=== PATIENT | male | born 1940 | race Caucasian/White ===

== ENCOUNTER → 2017-06-24 13:41 | Outpatient (CLI) | payer MEDICARE, OTHER, SELFPAY ==
--- NOTE | 2017-06-24 14:00 | ECHOD_ITS ---
Reason For Study: Aortic valve replacement Procedure This was a 2D Doppler, Color Flow transthoracic echocardiogram. The exam was of adequate technical quality. Exam performed in department. Left Ventricle Normal LV size. Left ventricular systolic function is normal. The estimated ejection fraction is 60 %. No regional wall motion abnormalities noted. Right Ventricle Mildly dilated right ventricle. Normal systolic function. Atria The left atrium is mildly enlarged. The right atrium is severely enlarged. No doppler evidence for ASD. Mitral Valve There is mild mitral annular calcification. Extension of the mitral annular calcification onto the posterior mitral valve leaflet. Mild-Moderate (1-2+) mitral valve insufficiency. Tricuspid Valve Normal tricuspid valve. Moderate (2+) tricuspid valve insufficiency. Right ventricular systolic pressure estimated to be 33 mmHg. Aortic Valve Stable appearing bioprosthetic aortic valve apparatus. Pulmonic Valve The pulmonic valve is not well visualized. Trivial pulmonic valve insufficiency. Great Vessels Moderately dilated aortic root. Pericardium/Pleural No pericardial effusion. MMode/2D Measurements & Calculations LVIDd: 4.3 cm IVSd: 1.1 cm LVOT diam: 2.1 cm LVIDs: 2.8 cm LVPWd: 0.96 cm LVOT area: 3.5 cm2 RVDd: 4.9 cm FS: 34.7 % Ao root diam: 4.8 cm LAV(MOD-bp): 58.9 ml LA A4 area: 18.3 cm2 LA dimension: 3.5 cm LAV(MOD-bp) Indexed: 28.9 ml/m2 LAV(MOD-sp2): 72.7 ml LAV(MOD-sp4): 45.6 ml RA A4 area: 30.3 cm2 Doppler Measurements & Calculations MV E max kunal: 97.2 cm/sec Lat Peak E' Kunal: 12.5 cm/sec Med Peak E' Kunal: 8.0 cm/sec MV A max kunal: 61.0 cm/sec E/E' lat: 7.7 E/E' med: 12.1 MV E/A: 1.6 Ao V2 max: 265.9 cm/sec LV V1 max: 137.7 cm/sec SV(LVOT): 101.7 ml Ao max P.3 mmHg LV V1 max P.6 mmHg Ao V2 mean: 183.0 cm/sec LV V1 mean P.1 mmHg Ao mean P.0 mmHg LV V1 mean: 95.8 cm/sec Ao V2 VTI: 58.6 cm LV V1 VTI: 29.2 cm CECI(I,D): 1.7 cm2 CECI(V,D): 1.8 cm2 PA V2 max: 81.4 cm/sec TR max kunal: 249.7 cm/sec TR max P.9 mmHg Interpretation Summary Left ventricular systolic function is normal. The estimated ejection fraction is 60 %. Mildly dilated right ventricle. The left atrium is mildly enlarged. The right atrium is severely enlarged. There is mild mitral annular calcification. Extension of the mitral annular calcification onto the posterior mitral valve leaflet. Mild-Moderate (1-2+) mitral valve insufficiency. Moderate (2+) tricuspid valve insufficiency. Stable appearing bioprosthetic aortic valve apparatus. Trivial pulmonic valve insufficiency. Moderately dilated aortic root. Right ventricular systolic pressure estimated to be 33 mmHg. Transmitral diastolic flow velocities suggest diastolic dysfunction (pseudonormal pattern). Comment: The average Global Longitudinal Peak Strain (GLPS) was reported at - 20.0% (normal limits: - 18.0 % or more negative) Ordering Physician: Victor Manuel Zhou Referring Physician: Rosemarie Samaniego Performed By: Pam Medrano KODY
--- NOTE | 2017-06-24 14:50 | CT_ITS ---
STUDY: CTA CHEST REASON FOR EXAM: Male, 77 years old. Thoracic aortic aneurysm RADIATION DOSAGE (If Supplied By Facility): CTDIvol = ( 19.31 ) mGy, DLP = ( 665 ) mGycm TECHNIQUE: The examination was performed with the intravenous administration of 100 ml of Isovue 370 contrast material. Post-processing of the angiographic images was performed, with multiplanar reformation and 3D reconstruction. Individualized dose optimization techniques were used for this CT. COMPARISON: None. FINDINGS: There is aneurysmal dilatation of the ascending aorta, measuring 4.8 x 4.7 cm. The aortic arch and descending thoracic aorta are normal in caliber. 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 Evaluation for thoracic aortic dissection is limited as contrast is primarily within the pulmonary arteries. There is no evidence of pulmonary embolus. The patient is status post sternotomy and aortic valve replacement. The heart is normal in size. There is no pericardial effusion. There is no thoracic lymphadenopathy. There are mild emphysematous changes noted in the lungs. There is a calcified granuloma in the right upper lobe. There are no suspicious pulmonary nodules or masses. There are no pulmonary infiltrates or pleural effusions. Images through the upper abdomen demonstrate splenic granulomata. There are no destructive osseous lesions. CT/CTA Chest W/WO Contrast IMPRESSION: 4.8 x 4.7 cm aneurysm of the descending aorta. Normal caliber aortic arch and descending thoracic aorta. 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 Evaluation for thoracic aortic dissection is limited as the contrast bolus is primarily in the pulmonary arteries. No evidence of pulmonary embolus. Mild emphysema. No suspicious pulmonary nodules. No pulmonary infiltrate or pleural effusion. Evidence of prior granulomatous disease. Electronically Signed: Calvin Hudson, at 18:26 EDT Tel , Service support ,
[2017-06-24 15:05] LABS: CREATININE FINGERSTICK 1.3 mg/dL (0.70-1.30)
== END ==
PROVIDERS: Family Provider Internal Medicine; PCP Internal Medicine; Visit Provider Internal Medicine Cardiovascular Disease
DX: I71.2 Thoracic aortic aneurysm, without rupture (principal); Z95.2 Presence of prosthetic heart valve
CPT/HCPCS: 71275; 93306; Q9967

== ENCOUNTER → 2018-07-14 | Outpatient (CLI) | payer MEDICARE, OTHER, SELFPAY ==
[2018-07-02 15:54] VITALS: BMI 31.1
--- NOTE | 2018-07-14 13:52 | ECHOD_ITS ---
Reason For Study: HX AVR Procedure This was a 2D Doppler, Color Flow transthoracic echocardiogram. The exam was of adequate technical quality. Exam performed in department. Left Ventricle Normal LV size. Left ventricular systolic function is normal. The estimated ejection fraction is 55 %. Post operative septal motion. No regional wall motion abnormalities noted. Right Ventricle Mildly dilated right ventricle. Mild global right ventricular systolic dysfunction. Atria The left atrium is mildly enlarged. The right atrium is severely enlarged. No doppler evidence for ASD. Mitral Valve There is mild mitral annular calcification. Extension of the mitral annular calcification onto the posterior mitral valve leaflet. Mild (1+) mitral valve insufficiency. Tricuspid Valve Normal tricuspid valve. Moderately severe (3+) tricuspid valve insufficiency. Right ventricular systolic pressure estimated to be 31 mmHg. Aortic Valve Stable appearing bioprosthetic aortic valve apparatus. Pulmonic Valve Normal pulmonic valve. Trivial pulmonic valve insufficiency. Great Vessels Moderately dilated ascending aorta. Pericardium/Pleural No pericardial effusion. MMode/2D Measurements & Calculations LVIDd: 4.7 cm IVSd: 0.78 cm LVOT diam: 2.1 cm LVIDs: 3.5 cm LVPWd: 0.86 cm LVOT area: 3.4 cm2 RVDd: 6.3 cm FS: 26.1 % Ao root diam: 4.9 cm LAV(MOD-bp): 77.2 ml LA A4 area: 21.2 cm2 LAV(MOD-bp) Indexed: 37.8 ml/m2 LAV(MOD-sp2): 89.6 ml LAV(MOD-sp4): 65.0 ml LA dimension(2D): 4.0 cm RA A4 area: 29.7 cm2 Time Measurements MV dec time: 0.22 sec Doppler Measurements & Calculations MV E max kunal: 71.6 cm/sec Lat Peak E' Kunal: 12.7 cm/sec Med Peak E' Kunal: 8.6 cm/sec MV A max kunal: 64.4 cm/sec E/E' lat: 5.6 E/E' med: 8.3 MV E/A: 1.1 Ao V2 max: 244.4 cm/sec LV V1 max: 79.6 cm/sec SV(LVOT): 63.3 ml Ao max P.9 mmHg LV V1 max P.6 mmHg Ao V2 mean: 177.4 cm/sec LV V1 mean P.3 mmHg Ao mean P.7 mmHg LV V1 mean: 53.3 cm/sec Ao V2 VTI: 51.2 cm LV V1 VTI: 18.6 cm CECI(I,D): 1.2 cm2 CECI(V,D): 1.1 cm2 PA V2 max: 77.5 cm/sec PI end-d kunal: 61.4 cm/sec TR max kunal: 238.9 cm/sec TR max P.9 mmHg Interpretation Summary Left ventricular systolic function is normal. The estimated ejection fraction is 55 %. Post operative septal motion. Mildly dilated right ventricle. Mild global right ventricular systolic dysfunction. The left atrium is mildly enlarged. The right atrium is severely enlarged. There is mild mitral annular calcification. Extension of the mitral annular calcification onto the posterior mitral valve leaflet. Mild (1+) mitral valve insufficiency. Moderately severe (3+) tricuspid valve insufficiency. Stable appearing bioprosthetic aortic valve apparatus. Trivial pulmonic valve insufficiency. Moderately dilated ascending aorta. (4.8 to 5.0 cm) Right ventricular systolic pressure estimated to be 31 mmHg. Transmitral diastolic flow velocities suggest diastolic dysfunction (pseudonormal pattern). Ordering Physician: Basilio Rivera/Victor Manuel Zhou Referring Physician: REBECCA DINH Performed By: Boby ISABEL, MARY, Niki and Student
--- NOTE | 2018-07-14 15:00 | CT_ITS ---
STUDY: CTA CHEST REASON FOR EXAM: Male, 78 years old. Aortic valve replacement. RADIATION DOSAGE (If Supplied By Facility): CTDIvol = ( 12.01 ) mGy, DLP = ( 924.93 ) mGycm TECHNIQUE: The examination was performed with the intravenous administration of 100 IV Isovue 300. Post-processing of the angiographic images was performed, with multiplanar reformation and 3D reconstruction. Individualized dose optimization techniques were used for this CT. COMPARISON: June 24, 2017. FINDINGS: Normal enhancement of the main pulmonary artery and right and left pulmonary arteries. Normal enhancement of the bilateral peripheral pulmonary arteries. There is no demonstrated pulmonary embolism. Aneurysmal dilatation of the ascending thoracic aorta measuring 4.4 x 4.5 cm in AP and transverse dimensions respectively measured on the sagittal and coronal reconstructions. 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 And There is no demonstrated aortic dissection. The heart is not enlarged. Aortic valve replacement. Coronary artery calcifications. No pericardial effusion. Sternal wires are present. There are calcified mediastinal lymph nodes. Small mediastinal lymph nodes which are not pathologic by size criteria. Normal hilar regions. Normal visualized trachea and bronchi. The lungs are well expanded. Subcentimeter right upper lobe cyst. Lingular segment 1 cm pulmonary cyst. Calcified right upper lobe lung nodule. Normal pulmonary parenchyma. Normal pleura. Normal chest wall structures. Normal osseous structures. Scattered splenic calcifications unchanged. CT/CTA Chest W/WO Contrast IMPRESSION: No pulmonary embolus or thoracic aortic dissection. Ascending thoracic aortic aneurysm, measuring 4.4 x 4.5 cm not significantly changed accounting for differences in measurement. 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 Aortic valve replacement. Additional nonemergent findings as above. Electronically Signed: Artemio Cardona MD at 0:06 EDT , Service support ,
[2018-07-14 15:16] LABS: EGFR FINGERSTICK > 60.0000 mL/min (>60)
== END | disposition home or self-care (01) ==
LOC: CVS 13:52
PROVIDERS: Family Provider Internal Medicine; PCP Internal Medicine; Referring Provider Nurse Practitioner Family; Visit Provider Nurse Practitioner Family
DX: I71.2 Thoracic aortic aneurysm, without rupture (principal); I10 Essential (primary) hypertension; Z95.2 Presence of prosthetic heart valve
CPT/HCPCS: 71275; 93306; Q9967

== ENCOUNTER → 2019-09-20 12:44 | Outpatient (CLI) | payer MEDICARE, OTHER, SELFPAY ==
[2019-06-21 15:48] VITALS: BMI 29.9
--- NOTE | 2019-09-20 12:46 | CT_ITS ---
STUDY: CTA CHEST REASON FOR EXAM: Male, 79 years old. TAA, YEARLY CHECK UP, PREV HEART VALVE REPLACEMENT RADIATION DOSAGE (If Supplied By Facility): CTDIvol = ( 18.69 ) mGy, DLP = ( 558.23 ) mGycm TECHNIQUE: The examination was performed with the intravenous administration of 100ML ISOVUE 370. Post-processing of the angiographic images was performed, with multiplanar reformation and 3D reconstruction. Individualized dose optimization techniques were used for this CT. COMPARISON: Comparison is made with prior study dated July 14, 2018. FINDINGS: Normal enhancement of the main pulmonary artery and right and left pulmonary arteries. Normal enhancement of the bilateral peripheral pulmonary arteries. There is no demonstrated pulmonary embolism. There is aneurysmal dilatation of the ascending aorta. The transverse diameter of the ascending aorta measures 51.2 mm''s. There is no demonstrated aortic dissection. Sternal cerclage wires and vascular clips are present from a prior sternotomy and coronary artery bypass graft procedure (CABG). There are calcifications of the coronary arteries. Normal mediastinum. Normal hilar regions. Normal visualized trachea and bronchi. The lungs are well expanded. Calcified granuloma in the right upper lobe. Stable subcentimeter right upper lobe cyst and lingular segment cyst. Normal pleura. Normal chest wall structures. There are mild degenerative changes of thoracic spine. Calcified granulomas. CT/CTA Chest W/WO Contrast IMPRESSION: Aneurysmal dilatation of the ascending aorta measuring 51.2 mm in greatest transverse dimension. Electronically Signed: Lokesh Smith, at 14:35 EDT , Service support ,
--- NOTE | 2019-09-20 13:13 | ECHOD_ITS ---
Reason For Study: AVR Procedure This was a 2D Doppler, Color Flow transthoracic echocardiogram. The exam was of adequate technical quality. Exam performed in department. Left Ventricle Normal LV size. Left ventricular systolic function is normal. The estimated ejection fraction is 55 %. Post operative septal motion. Right Ventricle Mildly dilated right ventricle. Mild global right ventricular systolic dysfunction. Atria The left atrium is moderately enlarged. The right atrium is severely enlarged. No doppler evidence for ASD. Mitral Valve There is mild mitral annular calcification. Extension of the mitral annular calcification onto the base of the posterior mitral valve leaflet. Mild mitral valve prolapse. Mild-Moderate (1-2+) mitral valve insufficiency. Tricuspid Valve Normal tricuspid valve. Moderate (2+) tricuspid valve insufficiency. Right ventricular systolic pressure estimated to be 21 mmHg. Aortic Valve Trisinus/trileaflet aortic valve. Moderate focal aortic valve calcification. Stable appearing bioprosthetic aortic valve apparatus. Pulmonic Valve The pulmonic valve is not well visualized. Great Vessels The ascending aorta is moderately dilated. Pericardium/Pleural No pericardial effusion. MMode/2D Measurements & Calculations LVIDd: 4.5 cm IVSd: 1.1 cm LVOT diam: 2.1 cm LVIDs: 2.7 cm LVPWd: 1.1 cm LVOT area: 3.5 cm2 RVDd: 4.1 cm FS: 41.3 % Ao root diam: 5.0 cm LAV(MOD-bp): 80.8 ml LA A4 area: 21.6 cm2 LAV(MOD-bp) Indexed: 40.0 ml/m2 LAV(MOD-sp2): 97.0 ml LAV(MOD-sp4): 60.4 ml LA dimension(2D): 3.6 cm RA A4 area: 32.9 cm2 Doppler Measurements & Calculations MV E max kunal: 75.6 cm/sec Lat Peak E' Kunal: 9.6 cm/sec Med Peak E' Kunal: 7.3 cm/sec MV A max kunal: 66.5 cm/sec E/E' lat: 7.8 E/E' med: 10.3 MV E/A: 1.1 Ao V2 max: 251.1 cm/sec LV V1 max: 123.2 cm/sec SV(LVOT): 93.4 ml Ao max P.2 mmHg LV V1 max P.1 mmHg Ao V2 mean: 173.5 cm/sec LV V1 mean P.2 mmHg Ao mean P.4 mmHg LV V1 mean: 84.2 cm/sec Ao V2 VTI: 55.9 cm LV V1 VTI: 26.6 cm CECI(I,D): 1.7 cm2 CECI(V,D): 1.7 cm2 PA V2 max: 76.1 cm/sec TR max kunal: 210.8 cm/sec TR max P.9 mmHg Interpretation Summary Left ventricular systolic function is normal. The estimated ejection fraction is 55 %. Post operative septal motion. Mildly dilated right ventricle. Mild global right ventricular systolic dysfunction. The left atrium is moderately enlarged. The right atrium is severely enlarged. There is mild mitral annular calcification. Extension of the mitral annular calcification onto the base of the posterior mitral valve leaflet. Mild-Moderate (1-2+) mitral valve insufficiency. Moderate (2+) tricuspid valve insufficiency. Stable appearing bioprosthetic aortic valve apparatus. Moderate focal aortic valve calcification. The ascending aorta is moderately dilated. (approximately 5.0 cm) Right ventricular systolic pressure estimated to be 21 mmHg. Transmitral diastolic flow velocities suggest diastolic dysfunction (pseudonormal pattern). Ordering Physician: Basilio Rivera/Victor Manuel Zhou Referring Physician: Rosemarie Samaniego Performed By: Pam Medrano, KODY
[2019-09-20 13:21] LABS: CREATININE FINGERSTICK 1.1 mg/dL (0.70-1.30); EGFR FINGERSTICK > 60.0000 mL/min (>60)
== END ==
PROVIDERS: PCP Internal Medicine; Referring Provider Nurse Practitioner Family; Visit Provider Nurse Practitioner Family
DX: I71.2 Thoracic aortic aneurysm, without rupture (principal); Z95.3 Presence of xenogenic heart valve
CPT/HCPCS: 71275; 93306; Q9967

== ENCOUNTER → 2020-07-03 14:43 | Outpatient (CLI) | payer MEDICARE, OTHER, SELFPAY ==
[2020-06-26 14:15] VITALS: BMI 30.1
--- NOTE | 2020-07-03 14:48 | CT_ITS ---
STUDY: CT CHEST WITH CONTRAST REASON FOR EXAM: Male, 80 years old. Thoracic aortic aneurysm RADIATION DOSAGE (If Supplied By Facility): CTDIvol = ( 20.16 ) mGy, DLP = ( 476.56 ) mGycm TECHNIQUE: Transaxial imaging was performed following intravenous administration of IV 100mL Isovue-300. Multiplanar coronal and sagittal images were reformatted. Individualized dose optimization techniques were used for this CT. COMPARISON: Comparison is made with prior examination dated 09/20/2019. FINDINGS: Stable subcentimeter right upper lobe and lingular. There is no demonstrated pleural abnormality. There are calcifications of the coronary arteries. Prior midline sternotomy. Prior aortic body placement. Normal mediastinum. Normal hilar regions. Normal enhanced pulmonary arteries. There is atherosclerotic calcification of the aortic arch with tortuosity and elongation of the aortic arch and descending thoracic aorta. Aneurysmal dilatation of the proximal portion of the ascending thoracic aorta with a transverse dimension of 51.5 mm. This is essentially unchanged. There are mild multi-level degenerative changes of the thoracic spine. Calcified splenic granulomas. CT/Chest WITH Contrast IMPRESSION: Stable examination. Electronically Signed: Lokesh Smith MD at 15:24 EDT , Service support ,
[2020-07-03 15:01] LABS: CREATININE FINGERSTICK 1.5 mg/dL (0.70-1.30)
--- NOTE | 2020-07-03 15:05 | RAD_ITS ---
STUDY: X-RAY - LUMBAR SPINE REASON FOR EXAM: Male, 80 years old. Low back pain TECHNIQUE: 3 view(s) of the lumbar spine were obtained. COMPARISON: None FINDINGS: Normal lumbar lordosis. Mild levoscoliosis centered at L4. There is a normal alignment of the vertebrae. There is multilevel endplate spondylosis of the lumbar vertebrae. There is multi-level degenerative disc disease with multi-level disc space narrowing. Facet hypertrophy in the lower lumbar spine. The soft tissue structures are unremarkable. RAD/Lumbar Spine 2 or 3 Views IMPRESSION: Mild levoscoliosis with moderate degenerative disc disease. MRI would be useful. Electronically Signed: Rafiq Barrow MD at 13:12 EDT Tel , Service support ,
== END ==
PROVIDERS: PCP Internal Medicine; Referring Provider Internal Medicine Cardiovascular Disease; Visit Provider Internal Medicine Cardiovascular Disease
DX: I71.2 Thoracic aortic aneurysm, without rupture (principal); M54.5 Low back pain
CPT/HCPCS: 71260; 72100; Q9967

== ENCOUNTER → 2020-07-12 13:42 | Outpatient (CLI) | payer MEDICARE, OTHER, SELFPAY ==
[2020-06-26 14:15] VITALS: BMI 30.1
--- NOTE | 2020-07-12 13:44 | ECHOD_ITS ---
Reason For Study: Valve Replacement Eval Procedure This was a 2D Doppler, Color Flow transthoracic echocardiogram. The exam was of adequate technical quality. Exam performed in department. Left Ventricle Normal LV size. Left ventricular systolic function is normal. The estimated ejection fraction is 60 %. No evidence for diastolic dysfunction. No regional wall motion abnormalities noted. Right Ventricle Moderately dilated right ventricle. Normal systolic function. Atria The left atrium is mildly enlarged. The right atrium is severely enlarged. No doppler evidence for ASD. Mitral Valve There is moderate mitral annular calcification. Extension of the mitral annular calcification on the base of the posterior mitral valve leaflet. Mild (1+) mitral valve insufficiency. Tricuspid Valve Normal tricuspid valve. Moderate (2+) tricuspid valve insufficiency. Right ventricular systolic pressure estimated to be 33 mmHg. Aortic Valve Moderate diffuse aortic valve thickening. Moderate diffuse aortic valve calcification. Moderate aortic stenosis. Stable appearing bioprosthetic aortic valve apparatus. Pulmonic Valve The pulmonic valve is not well visualized. Great Vessels Moderately dilated aortic root. Pericardium/Pleural No pericardial effusion. MMode/2D Measurements & Calculations LVIDd: 4.4 cm IVSd: 1.1 cm LVOT diam: 2.1 cm LVIDs: 2.8 cm LVPWd: 1.1 cm LVOT area: 3.4 cm2 RVDd: 4.4 cm FS: 36.4 % Ao root diam: 5.2 cm LAV(MOD-bp): 53.8 ml LA A4 area: 16.1 cm2 LAV(MOD-bp) Indexed: 26.6 ml/m2 LAV(MOD-sp2): 68.8 ml LAV(MOD-sp4): 36.8 ml LA dimension(2D): 3.7 cm RA A4 area: 26.8 cm2 Doppler Measurements & Calculations MV E max kunal: 60.8 cm/sec Lat Peak E' Kunal: 10.5 cm/sec Med Peak E' Kunal: 7.4 cm/sec MV A max kunal: 72.1 cm/sec E/E' lat: 5.8 E/E' med: 8.2 MV E/A: 0.84 Ao V2 max: 355.3 cm/sec LV V1 max: 104.6 cm/sec SV(LVOT): 87.0 ml Ao max P.5 mmHg LV V1 max P.4 mmHg Ao V2 mean: 257.8 cm/sec LV V1 mean P.7 mmHg Ao mean P.4 mmHg LV V1 mean: 78.9 cm/sec Ao V2 VTI: 80.0 cm LV V1 VTI: 25.5 cm CECI(I,D): 1.1 cm2 CECI(V,D): 1.0 cm2 PA V2 max: 95.1 cm/sec TR max kunal: 275.5 cm/sec TR max P.4 mmHg ECHO/Echo Complete Interpretation Summary Left ventricular systolic function is normal. The estimated ejection fraction is 60 %. Moderately dilated right ventricle. The left atrium is mildly enlarged. The right atrium is severely enlarged. There is moderate mitral annular calcification. Extension of the mitral annular calcification on the base of the posterior mitr al valve leaflet. Mild (1+) mitral valve insufficiency. Moderate (2+) tricuspid valve insufficiency. Stable appearing bioprosthetic aortic valve apparatus. Moderate aortic stenosis. Moderately dilated aortic root. Right ventricular systolic pressure estimated to be 33 mmHg. No evidence for diastolic dysfunction. Ordering Physician: Victor Manuel Zhou Referring Physician: Rosemarie Samaniego Performed By: Apoorva Rivera, ISABEL, RVT
== END ==
PROVIDERS: PCP Internal Medicine; Referring Provider Internal Medicine Cardiovascular Disease; Visit Provider Internal Medicine Cardiovascular Disease
DX: I34.0 Nonrheumatic mitral (valve) insufficiency (principal)
CPT/HCPCS: 93306

== ENCOUNTER → 2020-10-31 07:56 | Outpatient (CLI) | payer MEDICARE, OTHER, SELFPAY ==
--- NOTE | 2020-10-31 08:02 | CR.ITP_ITS ---
Diagnosis - General Information Admitting Diagnosis: Aortic Valve Replacement, ascendin aortic aneurysm repair 09/27/2020 Personal Learning Style:: Audio/Visual, Written Barriers to Learning: Hearing Impairment, Vision Impairment Gave educational material for:: Treating Heart Disease, Emotions & Heart Disease, Stress Management & Relaxation, Sleep Disorders & Heart Disease, How The Heart Works, What it means to have Heart Disease, How Coronary Artery Disease is Diagnosed, Heart Procedures, What Heart Medications Do, Risk Factors & Modifications, Living an Active Life, Nutrition - Education/Goals Individual Counseling: Initial Assessment: Abnormal Cholesterol Levels, High Blood Pressure - 146/84 Cardiac Rehabilitation Goals: 1. Maintain the individual as the primary focus of care. 2. To improve the patient's quality of life. 3. Identification of cardiac risk factors and provide cardiac risk factor management. 4. Enhance the psychosocial status of the patient. 5. Reconditioning enough to allow the patient to resume customary activities. 6. Control symptoms of cardiac disease Personal Goals: Initial Assessment: Improve energy level, Get back to work, or to resume activities faster, Improve muscle strength and endurance, Control risk factors (learn risk factor modification) Scale for measuring improvement of personal goals: Enter appropriate number in Comments. 2 = Unchanged. 3 = Slightly Better. 4 = Moderate Improvement. 5 = Met my Goal - Diagnosis & Disease Process Outcomes/Goals: Pt IDs own risk factors & lifestyle modifications by Session 10, Verbalizes symptoms of angina & response by session 3., Pt independently manages Plan/Interventions: Assist Pt to ID & engage in lifestyle modification to reduce CVD risk, Instruct on individual risk factors, Review symptoms of angina & emergency actions, Review secondary diagnosis & identify educational needs. - Safety Referral to Physical Therapy: No Referral to [facility] Case Management: No Fall Risk Assessed:: Yes Assistive Devices:: None Exercise - Initial Assessment - Visit Date of Eval: 10/31/20 Session #:: 0 - pre-cardiac rehab evaluation Mets: Pre-: >5 METS for 30 minutes by discharge - Physician Prescribed Exercise Modalities: Treadmill, Airdyne, NuStep Frequency: 3x/week for 12 weeks [36 sessions] Intensity: 60-80% of age predicted maximum heart rate reserve Current METSs:: 3.0 Target Heart Rate:: 92-120 Resting Blood Pressure: 146/84 EKG Type: Sinus Rhythm - Outcomes & Goals Goals:: Verbalizes understanding of THR, RPE & goal METS by session 6, Documents in home exercise log/reports 30 min aerobic 5 day/wk by DC, Demonstrates accurate pulse taking by DC - Intervention & Plan Exercise Program Goals: Instruct on personal THR & RPE, Instruct on MET level & personal MET goal, Instruct on home exercise - Physical Activity Home Exercise Physical Activity - Home Exercise: Safe Exercise, Warm-up, Self-monitoring, Cool-Down, Home Exercise > 30 min Daily, Sitting Time <3 hours/daily - Outcomes & Goals Outcomes/Goals: Demonstrates correct Warm-up/exercise Cool-Down (S3) if = 2.5 METs, Verbalizes symptoms of exercise intolerance by Session 3 (S3), Demonstrate safe equipment use (S3) & follows exercise prescrition (6) - Intervention & Plan Plan/Intervention: Instruct warm-up & cool-down if exercising at > 2 METs, Instruct on symptoms of exercise intolerance & actions to take, Instruct & monitor on saf, Assess intial functional capacity & safety risk Nutrition - Initial Assessment - Program Goals Nutrition Program Goals: LDL <100 optimal. 100 - 129 Near optimal. 130 - 159 Borderline High. 160 - 189 High. Total Cholesterol <200 desirable. 200 - 239 Borderline High. >/= 240 High. HDL < 40 Low >/=60 High. Triglycerides <150 desirable. <199 optimal. VlDL 5 - 40. HgbA1C <7%. BMI <25 Patient has diagnosis of Hyperlipidemia (ICD E78)?: Yes - Visit Date of Assessment:: 10/31/20 Session #:: 0 - pre-cardica rehab evaluation - Cholesterol/Lipids Triglycerides (mg/dL): 0 - labs not available Determine presence & major risk factors that modify LDL goal: Hypertension or hypertensive medication, Family history of premature CHD in Male < 55 years: female <65 yearsFa, Age men > 45 years; women >/= 55 years Outcomes/Goals: Pt IDs own risk factors & lifestyle modifications by Session 10, Verbalizes symptoms of angina & response by session 3., Pt independently manages Intervention/Plan: Instruct on personal lipid levels & lipid goals/NCEP guidelines, Instruct on cholesterol Referral to dietitian:: Yes - Medical Nutrition Therapy - Diabetes (Other Core Measures) Diabetes Type: Not Applicable - Weight Mgt (Other Care) Not Applicable: Yes Height: 5 ft 8 in Weight:: 190 lb 8 oz BMI: 28.9 Diagnosis Overweight/Obesity BMI> 30% ICD-10 E66: No Diagnosis High BMI/Morbid Obesity BMI> 35% ICD-10 Z68: No Outcomes/Goals: Pt sets, maintains & shows weight loss goal & trend during rehab Intervention/Plan: Instruct on ideal BMI & set weight loss goal w/patient, Assist pt to ID & incorporate diet changes for weight loss by S9, Encourage goal of using 250-300dcal per session for weight loss - Healthy Eating Habits Will attend diet classes:: Yes Outcomes/Goals:: Consume diet rich in vegs,fruits,whole grain/high fiber,fish,lean meat, Limit sat/trans fats,cholesterol & added salts & sugars Intervention/Plan:: Assess current eating habits - Education Gave educational materials for:: Healthy eating Nutrition - 30-Day Assessment Nutrition - 60-Day Assessment Nutrition - 90-Day Assessment Nutrition - Final Assessment Medical - Initial Assessment - Visit Date of Eval: 10/31/20 Session #:: 0 - pre-cardiac rehab evaluation - Medication Compliance Preventative Medication(s):: Aspirin, Beta alvaro H/O mental health issues: depression, anxiety, or addiction?: No Doesn?t believe in the benefits of treatment?: No Believes medications are unnecessary or harmful?: No Has a concern about medication side effects?: No Expresses concern over the cost of medications?: No Outcomes/Goals: Verbalizes medications,desired effect & common side effects @ DC, Pt self-reports following medication regimen, Keeps card in wallet w/medications listed by DC Interventions/plans: Instruct on medication effects & side effects, Review medication list w/patient every two weeks, Instruct importance of taking meds as ordered & assist problem solving - Tobacco Use Tobacco Use: Non-smoker - Hypertension Hypertension Diagnosis:: Hypertension ICD-10 I10 Resting Blood Pressure:: 146/84 [place] [employer] Hypertension Guidelines: [place] [employer] Hypertension Guidelines. Normal BP Less than 120/80. Elevated BP 120/80. Hype rtension Stage 1: BP 130-139/80-89. Hypertesnion Stage 2: BP 140 or higher/90 or higher. Hypertension Crisis: BP higher than 180/120 Outcomes/Goals: Able to verbalize/achieve optimal blood pressure <130/80, Incorporates diet changes & exercise for blood pressure control by DC Interventions/plan: Instruct on optimal blood pressure, hypertension & medications, Instruct on effects of sodium, alcohol, stress, exercise &hypertension - Tobacco Cessation Referral Smoking Cessation Referral:: No Individual Education/Counseling:: No Education Schedule Given:: Yes - Online Education provided and class workbook given to patient. Medical- 30-Day Assessment Medical- 60-Day Assessment Medical- 90-Day Assessment Medical - Final Assessment Psychosocial - Initial Assess - VIsit Date of Eval: 10/31/20 Session #:: 0 - pre-cardiac rehab evaluation Not Applicable: Yes History of previous Mental disease:: No - Psychosocial Test Tool Used:: [employer] Power QOL Cardiac, PHQ-9 Questionnaire phq-9 Severity: Severity. 1-4 Minimal Depression. 5-9 Mild Depression. 10-14 Moderate Depression. 15-19 Moderately Sever Depression. 20-27 Severe Depression. Rule: - Referral to Behavioral Health PS - Interventions: Yes Attend Stress Management Classes, No Referral to Behavioral Health if PHQ-9 score >9:, No Referral to [facility], No Referral to Physician if PHQ-9 if score is 5-9: - Outcomes/Goals: See list Psychosocial Outcomes/Goals:: ID's personal stressors & 2 strategies to manage stress by discharge - Intervention/Plan: See List Interventions/Plan:: Assess stressors,coping strategies & signs of derpression on admission, Instruct/assist pt to develop coping & personal stress Mgt strategies, Instruct patient to recognize signs & symptoms of depression, Instruct patient to recog Psychosocial - 30-Day Assess Psychosocial - 60-Day Assess Psychosocial - 90-Day Assess Psychosocial - Final Assessmen Patient Health Questionnaire Initial Assessment 1. Little interest or pleasure in doing things: Not at all 2. Feeling down, depressed, or hopeless: Not at all 3. Trouble falling or staying asleep, or sleeping too much: More than half the days 4. Feeling tired or having little energy: Several days 5. Poor appetite or overeating: Not at all 6. Feeling bad about yourself -- or that you are a failure or have let yourself or your family down: Not at all 7. Trouble concentrating on things, such as reading the newspaper or watching television: Not at all 8. Moving or speaking so slowly that other people could have noticed. Or the opposite - being so fidgety or restless that you have been moving around a lot more than usual: Not at all 9. Thoughts that you would be better off , or of hurting yourself in some way: Not at all How difficult have these problems made it for you to do your work, take care of things at home, or get along with other people?: Not difficult at all Total Score: 3 GABINO-Q SV Test - Statements CAD is a disease of the arteries in the heart: False Examples of risk factors for heart disease: True Angina is chest pain or discomfort: True The benefits of resistance training include: True Eating more meat and dairy products: False Anti-platelet medications such as aspirin are important: True The only effective way to manage stress: False An exercise warm-up slowly increases heart rate: True Prepared, processed foods usually have high sodium: True Depression is common after a heart attack: I Don't Know The statin medications lower cholesterol: True To control blood pressure, lower the amount of sodium: True If someone gets chest discomfort during walking: False Transfats are partially hydrogenated vegetable oils: True Sleep apnea that is not treated increases the risk: False To control cholesterol, one should become a vegetarian: False Someone knows if he/she is exercising at the right level: True Diabetes cannot be prevented with exercise & health eating: False Stress is a large risk for heart attack: True A diet that can help lower blood pressure is rich in: True - Total Score Total Correct Responses: 19 Self-Efficacy Initial Assessment We would like to know how confident you are in doing certain activities. Please select your confidence level for:: Select your confidence level for the following using the scale 1-10 where 1 is not at all confident and 10 is totally confident. Your score is the average of all 6 responses. Fatigue: How confident are you that you can keep the fatigue caused by your disease from interfering with the things you want to do? Select Number: 8 Physical Discomfort or Pain: How confident are you that you can keep the physical discomfort or pain of your disease from interfering with the things you want to do? Select Number: 8 Emotional Distress: How confident are you that you can keep the emotional distress caused by your disease from interfering with the things you want to do? Select Number: 9 Other Symptoms or Health Problems: How confident are you that you can keep other symptoms or health problems from interfering with the things you want to do? Select Number: 9 Different Tasks and Activities: How confident are you that you can do the different tasks and activities needed to manage your health condition so as to reduce your need to see a doctor? Select Number: 9 Medication: How confident are you that you can do things other than just taking medication to reduce how much your illness affects your everyday life? Select Number: 9 Total Score:: 8 Nutrition Survey - Nutrition Survey Initial Have you lost >10 lbs over the past 2 months without trying?: Yes Are you following a special diet at home for diabetes, low fat, or low salt?: Yes Are you interested in meeting with a dietitian for help understanding your diet?: No Do you eat less than 3 meals a day?: No Do you eat fatty meats (marie, sausage, ribs, etc), fried foods, desserts, large amounts of salad dressings, margarine, butter, or cheese most days?: No Do you have food allergies? [Enter types in comment field]: No Do you eat in restaurants more than 3 times a week?: No Do you season food with salt, seasoning salt, or garlic salt?: No Do you used canned, boxed, frozen meals, or soups, seasoning packets?: No Total Score:: 2
--- NOTE | 2020-10-31 08:03 | PCM.CR.HP2 ---
CR - History & Physical - General Arrival date:: 10/31/20 Arrival time:: 08:07 Date of CR Evaluation:: 10/31/20 Referring Physician: Evgeny Primary Diagnosis: Aortic Valve Repalcement tih bioprsthetic valve, Ascending aorta replaced. - History of Present Cardiac Event Onset Date: Enter Onset Date of cardiac illnesses in Comment field below Heart valve replacement or repair:: Yes - Aortic valve replacemetn with bioprosthetic valve 09/27/2020 - Sleep Disorder Evaluation Hx of Sleep Apnea: Yes Do you snore loudly (louder than talking or can be heard through closed doors)?: Yes - Has previous diagnosis of PARKER and has home unit for HS use. Do you often feel tired/ fatigued/ sleepy during daytime?: Yes Has anyone observed you stop breathing during sleep?: No History of Hypertension (for STOP score): Yes STOP Results: Positive - Medications Home Medications: Ambulatory Orders Medication Instructions Recorded aspirin 81 mg tablet,delayed 81 mg PO QDAY 03/11/17 release coenzyme Q10 10 mg capsule 10 mg PO QDAY cap 04/03/17 famotidine 20 mg tablet 40 mg PO QHS tab 06/21/19 metoprolol tartrate 25 mg tablet 25 mg PO BID #180 tab 06/21/19 ascorbic acid (vitamin C) 1,000 mg 1 gm PO DAILY tablet 06/26/20 tablet amiodarone 200 mg tablet 200 mg PO DAILY 10/13/20 cholecalciferol (vitamin D3) 25 25 mcg PO BID tab 10/13/20 mcg (1,000 unit) tablet acetaminophen 325 mg tablet 650 mg PO Q6H PRN tab 10/20/20 apixaban 2.5 mg tablet 2.5 mg PO BID 10/20/20 amlodipine 10 mg tablet 10 mg PO DAILY 10/23/20 losartan 50 mg tablet 50 mg PO DAILY 10/23/20 - Allergies Allergies/Adverse Reactions: Allergies Zqiihgd-Qhc-Mva Reductase Inhibitor Adverse Reaction (Severe, Verified 10/20/20 14:35) intolerence atenolol Adverse Reaction (Intermediate, Verified 10/20/20 14:35) unknown hydrochlorothiazide Adverse Reaction (Intermediate, Verified 10/20/20 14:35) unknown red yeast rice Adverse Reaction (Intermediate, Verified 10/20/20 14:35) unknown Advanced Directives - Advanced Directives Power of Failure Analysis Technician: No Living Will: No Advance Directives Information Provided: Yes Advance Directives on File: No DNR Order?:: No - MOLST See MOLST form: No Past Medical History - Covid-19 Screening Fever: No Unexplained muscle aches: No Current respiratory symptoms: No Upper respiratory infections symptoms: No Gastro-intestinal symptoms: No Kox-Zawg-Tjtdji symptoms: No Has tested positive for COVID-19 in last 30 days: No Date of testin10/31/20 - Patient has not been vaccinated. Had contact w/person w/symptoms or Covid-19 (+) last 14 days: No Has High Risk Exposures ID'd by Health dept/Inf Control team: No 65 years or older:: Yes Lives in Assisted Living facility:: No Has a chronic lung disease or moderate to severe asthma:: No Has a serious heart condition:: Yes Immunocompromised:: No Severely obese (Body Mass Index of 40 or higher):: No Diabetic:: No Has chronic kidney disease undergoing dialysis:: No Has liver disease:: No - Past Medical Illness Medical History: Past Medical History (Last Reviewed 10/20/20 @ 14:39 by Elvia Lubin) Aortic aneurysm I71.9 4.5cm Asthma J45.909 Atherosclerotic heart disease of [place] coronary artery without angina pectoris I25.10 BPH (benign prostatic hyperplasia) N40.0 History of echocardiogram Onset Date: ~12/2015 Z92.89 History of left common carotid artery stent placement Onset Date: ~09/27/20 Z98.890, Z95.828 2.5mm x13 Viabahn stent 09/27/20 @ [facility] Non-rheumatic mitral regurgitation I34.0 Non-rheumatic tricuspid valve insufficiency I36.1 Nonrheumatic mitral (valve) prolapse I34.1 PARKER (obstructive sleep apnea) G47.33 Postoperative atrial fibrillation I97.89, I48.91 Pure hypercholesterolemia E78.00 Thoracic aortic aneurysm without rupture I71.2 4.8 x 4.7 per chest CTA 06/24/17 - Past Surgical History Surgical History: Past Surgical History (Last Reviewed 10/20/20 @ 14:39 by Elvia Lubin) H/O hemorrhoidectomy Z98.890 History of aortic valve replacement with bioprosthetic valve Onset Date: ~09/27/20 Z95.3 AVR #25mm Flores Valve 09/27/20 @ [facility] ;#25 Ken Flores valve 2004 History of cardiac catheterization Onset Date: ~03/2003 Z98.890 History of tricuspid valve repair Onset Date: ~09/27/20 Z98.890 #28mm MC3 09/27/20 @ [facility] Hx of ascending aorta replacement Onset Date: ~09/27/20 Z95.828 37x10 Eunice Tag Device into the arch and to cover the Lt. 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 Left click = Reports ([place]) Review of Present Symptoms: Reports: Shortness of Breath with Exertion - still has some minor shortness of breath but has improved significantly since surgery., Operative Discomfort - still a little tender around the incision area but no pain, Wound Healing, Fatigue - sleeping alot during the daytime and then having difficulty sleeping at night., Appetite - Normal. Denies: Shortness of Breath at Rest, Dizziness/Lightheadedness, Heart Arrhythmia/Irregularities, Appetite - Special Diet, Sleep - Normal - irregular. sleeping alot during the day and then not able to sleep at night. He does have PARKER and home CPAP unit. - Pain Is Patient Pain Free?: Yes Pain Location: none Pain Level: 0/10 Risk Factor Assessment - Chief Complaint Chief Complaint: 80 yr old male patient of Dr. Zhou who presentst o cardiac rehab today following recent aortic valve replacement and ascending aortic aneurysm repair. - Vital Signs Temperature: 97.4 F Respiratory Rate: 18 Pulse Ox: 96 Blood Pressure: 146/84 - Pulse Pulse Rate: 64 Pulse Rhythm: Regular - Hypertension Blood Pressure Sitting - Left Arm: 146/84 - Obesity Height: 5 ft 8 in Weight:: 190 lb 8 oz Weight in Pounds: 190.5 lbs Weight Source: Standing Scale Body Mass Index (BMI): 28.9 Nutritional Referral for Obesity: No - Risk Stratification Risk Guidelines: Lowest Risk: Risk Factor for Smoking, Risk Factor for Diabetes, Risk Factor for Sedentary Lifestyle, Risk Factor for Depression, Moderate Risk: Risk Factor for Obesity, Highest Risk: Risk Factor for Hypertension - Family History Family History: Family History (Last Reviewed 10/20/20 @ 14:39 by Elvia Lubin) Mother Hypertension Father CAD (coronary artery disease) Hypertension Grandmother CAD (coronary artery disease) Motivation - Motivation to Participate On a scale of 1 to 10, how prepared are you to commit to attending program?: 9 What do you see as barriers to successfully being able to complete the program?: no What do you see as the benefits of succesfully completing the program? In other words, what do you hope to get out of participating in the program?: get my confidence back, increase stamina. Are there issues you are dealing with that will interfere with completing the program?: no Do you have a spouse or signficant other, family or friends who will help support you to complete the program?: Yes.
[2020-10-31 08:24] VITALS: BP 146/84; BMI 28.9
[2020-10-31 08:38] VITALS: BP 146/84; PULSE 64; RESP 18; TEMP 36.3; O2SAT 96; BMI 28.9
== END ==
PROVIDERS: PCP Internal Medicine; Referring Provider Internal Medicine Cardiovascular Disease; Visit Provider Internal Medicine Cardiovascular Disease
DX: I10 Essential (primary) hypertension (principal); E78.00 Pure hypercholesterolemia, unspecified; Z95.3 Presence of xenogenic heart valve

== ENCOUNTER 2020-11-06 09:43 | Outpatient (RCR) | payer MEDICARE, OTHER, SELFPAY ==
[2020-10-31 08:24] VITALS: BMI 28.9
== END 2020-11-07 23:59 ==
LOC: CR 09:43
PROVIDERS: PCP Internal Medicine; Referring Provider Internal Medicine Cardiovascular Disease; Visit Provider Internal Medicine Cardiovascular Disease
DX: I97.89 Other postprocedural complications and disorders of the circulatory system, not elsewhere classified (principal); I48.91 Unspecified atrial fibrillation; E78.00 Pure hypercholesterolemia, unspecified; Z95.3 Presence of xenogenic heart valve; Z95.828 Presence of other vascular implants and grafts
CPT/HCPCS: 93798

== ENCOUNTER → 2020-11-10 08:36 | Outpatient (CLI) | payer MEDICARE, OTHER, SELFPAY ==
[2020-10-31 08:24] VITALS: BMI 28.9
[2020-11-10 10:28] LABS: AST(SGOT) 16 U/L (15-37); Alanine Aminotransfer ALT/SGPT 22 U/L (16-61); Albumin, Serum 3.6 g/dL (3.2-5.0); Alkaline Phosphatase 105 U/L (45-117); Bilirubin, Direct 0.14 mg/dL (0.00-0.30); Cholesterol 216 mg/dL (200); Globulin 4.8 g/dL (2.2-4.2); High Density Lipoprotein 50 mg/dL; Protein, Total 8.4 g/dL (6.4-8.2); Triglycerides 105 mg/dL; Very Low Density Lipoprotein 21 mg/dL (5-40)
== END ==
PROVIDERS: PCP Internal Medicine; Referring Provider Internal Medicine Cardiovascular Disease; Visit Provider Internal Medicine Cardiovascular Disease
DX: E78.00 Pure hypercholesterolemia, unspecified (principal); Z98.890 Other specified postprocedural states; Z95.828 Presence of other vascular implants and grafts; Z95.3 Presence of xenogenic heart valve
CPT/HCPCS: 36415; 80061; 80076

== ENCOUNTER 2020-12-01 08:00 | Outpatient (RCR) | payer MEDICARE, OTHER, SELFPAY ==
[2020-10-31 08:24] VITALS: BMI 28.9
--- NOTE | 2020-12-01 13:16 | PCM.CR.ITP ---
Diagnosis Exercise - 30-day Assessment - Visit Date of Eval: 12/01/20 Session #:: 11 - Physician Prescribed Exercise Modalities: Treadmill, Airdyne, NuStep Frequency: 3x/week for 12 weeks [36 sessions] Intensity: 60-80% of age predicted maximum heart rate reserve Current METSs:: 5.0 increase from 3.0 Target Heart Rate:: 92-120 Current RPE:: 13-15 Maximum Excercise HR:: 84 Resting Blood Pressure: 112/60 Maximum Exercise Blood Pressure: 114/62 EKG Type: Sinus monae to sinus rhythm with rare PAC, atrial couplet Current Physical Activity or Exercising minutes: 35-40 - Outcomes & Goals Goals:: Verbalizes understanding of THR, RPE & goal METS by session 6, Documents in home exercise log/reports 30 min aerobic 5 day/wk by DC, Demonstrates accurate pulse taking by DC - Intervention & Plan Exercise Program Goals: Instruct on personal THR & RPE, Instruct on MET level & personal MET goal, Show patient to take own pulse /validate performance until accurate, Instruct on home exercise - 30-day Reassessments 30 day Reassessments:: Progressing - Physical Activity Home Exercise Physical Activity - Home Exercise: Safe Exercise, Warm-up, Self-monitoring, Cool-Down, Home Exercise > 30 min Daily, Sitting Time <3 hours/daily - Outcomes & Goals Outcomes/Goals: Demonstrates correct Warm-up/exercise Cool-Down (S3) if = 2.5 METs, Verbalizes symptoms of exercise intolerance by Session 3 (S3), Demonstrate safe equipment use (S3) & follows exercise prescrition (6) - Intervention & Plan Plan/Intervention: Instruct warm-up & cool-down if exercising at > 2 METs, Instruct on symptoms of exercise intolerance & actions to take, Instruct & monitor on saf, Assess intial functional capacity & safety risk - 30-day Reassessments 30 day Reassessments:: Progressing Nutrition - Initial Assessment Nutrition - 30-Day Assessment - Program Goals Nutrition Program Goals: LDL <100 optimal. 100 - 129 Near optimal. 130 - 159 Borderline High. 160 - 189 High. Total Cholesterol <200 desirable. 200 - 239 Borderline High. >/= 240 High. HDL < 40 Low >/=60 High. Triglycerides <150 desirable. <199 optimal. VlDL 5 - 40. HgbA1C <7%. BMI <25 Patient has diagnosis of Hyperlipidemia (ICD E78)?: Yes - Visit Date of Assessment:: 12/01/20 Session #:: 11 - Cholesterol/Lipids Determine presence & major risk factors that modify LDL goal: Hypertension or hypertensive medication, Age men > 45 years; women >/= 55 years Outcomes/Goals: Pt IDs own risk factors & lifestyle modifications by Session 10, Verbalizes symptoms of angina & response by session 3., Pt independently manages Intervention/Plan: Instruct on personal lipid levels & lipid goals/NCEP guidelines, Instruct on cholesterol Referral to dietitian:: No - Patient's insurance does not cover service 30-day Reassessments:: Progressing - Diabetes (Other Core Measures) Diabetes Type: Not Applicable - Weight Mgt (Other Care) Not Applicable: Yes Height: 5 ft 8 in Weight:: 187 lb BMI: 28.4 Diagnosis Overweight/Obesity BMI> 30% ICD-10 E66: No Diagnosis High BMI/Morbid Obesity BMI> 35% ICD-10 Z68: No Outcomes/Goals: Pt sets, maintains & shows weight loss goal & trend during rehab Intervention/Plan: Instruct on ideal BMI & set weight loss goal w/patient, Assist pt to ID & incorporate diet changes for weight loss by S9 30 day Reassessments:: Progressing - Healthy Eating Habits Will attend diet classes:: Yes Outcomes/Goals:: Consume diet rich in vegs,fruits,whole grain/high fiber,fish,lean meat, Limit sat/trans fats,cholesterol & added salts & sugars 30-day Reassessments:: Progressing - Education Gave educational materials for:: Healthy eating Nutrition - 60-Day Assessment Nutrition - 90-Day Assessment Nutrition - Final Assessment Medical - Initial Assessment Medical- 30-Day Assessment - Visit Date of Eval: 12/01/20 Session #:: 11 - Medication Compliance Preventative Medication(s):: Aspirin, SONALI inhibitor, Statin/lipid, Beta alvaro H/O mental health issues: depression, anxiety, or addiction?: No Doesn?t believe in the benefits of treatment?: No Believes medications are unnecessary or harmful?: No Has a concern about medication side effects?: No Expresses concern over the cost of medications?: No Outcomes/Goals: Verbalizes medications,desired effect & common side effects @ DC, Pt self-reports following medication regimen, Keeps card in wallet w/medications listed by DC Interventions/plans: Instruct on medication effects & side effects, Review medication list w/patient every two weeks, Instruct importance of taking meds as ordered & assist problem solving 30-day Reassessments:: Progressing - Tobacco Use Tobacco Use: Non-smoker - Hypertension Hypertension Diagnosis:: Hypertension ICD-10 I10 Resting Blood Pressure:: 112/60 [employer] Hypertension Guidelines: [place] [employer] Hypertension Guidelines. Normal BP Less than 120/80. Elevated BP 120/80. Hypertension Stage 1: BP 130-139/80-89. Hypertesnion Stage 2: BP 140 or higher/90 or higher. Hypertension Crisis: BP higher than 180/120 Peak Exercise Blood Pressure:: 114/62 Outcomes/Goals: Able to verbalize/achieve optimal blood pressure <130/80, Incorporates diet changes & exercise for blood pressure control by DC Interventions/plan: Instruct on optimal blood pressure, hypertension & medications, Instruct on effects of sodium, alcohol, stress, exercise &hypertension 30 day Reassessments:: Progressing - Tobacco Cessation Referral Smoking Cessation Referral:: No Individual Education/Counseling:: No Education Schedule Given:: Yes Medical- 60-Day Assessment Medical- 90-Day Assessment Medical - Final Assessment Psychosocial - Initial Assess Psychosocial - 30-Day Assess - VIsit Date of Eval: 12/01/20 Session #:: 11 Not Applicable: Yes History of previous Mental disease:: No - Psychosocial Test Tool Used:: PHQ-9 Questionnaire phq-9 Severity: Severity. 1-4 Minimal Depression. 5-9 Mild Depression. 10-14 Moderate Depression. 15-19 Moderately Sever Depression. 20-27 Severe Depression. Rule: - Referral to Behavioral Health PS - Interventions: Yes Attend Stress Management Classes, No Referral to Behavioral Health if PHQ-9 score >9:, No Referral to [facility], No Referral to Physician if PHQ-9 if score is 5-9: - Outcomes/Goals: See list Psychosocial Outcomes/Goals:: ID's personal stressors & 2 strategies to manage stress by discharge - Intervention/Plan: See List Interventions/Plan:: Assess stressors,coping strategies & signs of derpression on admission, Instruct/assist pt to develop coping & personal stress Mgt strategies, Instruct patient to recognize signs & symptoms of depression, Instruct patient to recog - 30-day Reassessments: 30 day Reassessments:: Progressing Psychosocial - 60-Day Assess Psychosocial - 90-Day Assess Psychosocial - Final Assessmen Patient Health Questionnaire 30-Day Re-eval Assessment 1. Little interest or pleasure in doing things: Not at all 2. Feeling down, depressed, or hopeless: Not at all 3. Trouble falling or staying asleep, or sleeping too much: Several days 4. Feeling tired or having little energy: Not at all 5. Poor appetite or overeating: Not at all 6. Feeling bad about yourself -- or that you are a failure or have let yourself or your family down: Not at all 7. Trouble concentrating on things, such as reading the newspaper or watching television: Not at all 8. Moving or speaking so slowly that other people could have noticed. Or the opposite - being so fidgety or restless that you have been moving around a lot more than usual: Not at all 9. Thoughts that you would be better off , or of hurting yourself in some way: Not at all How difficult have these problems made it for you to do your work, take care of things at home, or get along with other people?: Not difficult at all Total Score: 1 Self-Efficacy 30-Day Re-eval Assessment We would like to know how confident you are in doing certain activities. Please select your confidence level for:: Select your confidence level for the following using the scale 1-10 where 1 is not at all confident and 10 is totally confident. Your score is the average of all 6 responses. Fatigue: How confident are you that you can keep the fatigue caused by your disease from interfering with the things you want to do? Select Number: 9 Physical Discomfort or Pain: How confident are you that you can keep the physical discomfort or pain of your disease from interfering with the things you want to do? Select Number: 10 Emotional Distress: How confident are you that you can keep the emotional distress caused by your disease from interfering with the things you want to do? Select Number: 10 Other Symptoms or Health Problems: How confident are you that you can keep other symptoms or health problems from interfering with the things you want to do? Select Number: 10 Different Tasks and Activities: How confident are you that you can do the different tasks and activities needed to manage your health condition so as to reduce your need to see a doctor? Select Number: 10 Medication: How confident are you that you can do things other than just taking medication to reduce how much your illness affects your everyday life? Select Number: 10 Total Score:: 9 Nutrition Survey
[2020-12-01 13:24] VITALS: BP 112/60; BP 114/62; BMI 28.4
== END 2020-12-07 23:59 ==
LOC: CR 08:00
PROVIDERS: PCP Internal Medicine; Referring Provider Internal Medicine Cardiovascular Disease; Visit Provider Internal Medicine Cardiovascular Disease
DX: I97.89 Other postprocedural complications and disorders of the circulatory system, not elsewhere classified (principal); I48.91 Unspecified atrial fibrillation; E78.00 Pure hypercholesterolemia, unspecified; Z95.828 Presence of other vascular implants and grafts; Z95.3 Presence of xenogenic heart valve
CPT/HCPCS: 93798

== ENCOUNTER 2020-12-25 08:00 | Outpatient (RCR) | payer MEDICARE, OTHER, SELFPAY ==
[2020-12-08 00:34] VITALS: BP 112/60; BP 114/62
--- NOTE | 2020-12-29 08:09 | PCM.CR.ITP ---
Diagnosis Exercise - 30-day Assessment - Visit Date of Eval: 12/29/20 Session #:: 15 - Physician Prescribed Exercise Modalities: Treadmill, Airdyne, NuStep Frequency: 3x/week for 12 weeks [36 sessions] Intensity: 60-80% of age predicted maximum heart rate reserve Current METSs:: 6.0 increase from 4.0 Target Heart Rate:: 92-120 Current RPE:: 12-13 Maximum Excercise HR:: 87 Resting Blood Pressure: 122/64 Maximum Exercise Blood Pressure: 134/70 EKG Type: SB to NSR with rare PAC. Current Physical Activity or Exercising minutes: 43 - Outcomes & Goals Goals:: Verbalizes understanding of THR, RPE & goal METS by session 6, Documents in home exercise log/reports 30 min aerobic 5 day/wk by DC, Demonstrates accurate pulse taking by DC - Intervention & Plan Exercise Program Goals: Instruct on personal THR & RPE, Instruct on MET level & personal MET goal, Show patient to take own pulse /validate performance until accurate, Instruct on home exercise - 30-day Reassessments 30 day Reassessments:: Progressing - Physical Activity Home Exercise Physical Activity - Home Exercise: Safe Exercise, Warm-up, Self-monitoring, Cool-Down, Home Exercise > 30 min Daily, Sitting Time <3 hours/daily - Outcomes & Goals Outcomes/Goals: Demonstrates correct Warm-up/exercise Cool-Down (S3) if = 2.5 METs, Verbalizes symptoms of exercise intolerance by Session 3 (S3), Demonstrate safe equipment use (S3) & follows exercise prescrition (6) - Intervention & Plan Plan/Intervention: Instruct warm-up & cool-down if exercising at > 2 METs, Instruct on symptoms of exercise intolerance & actions to take, Instruct & monitor on saf, Assess intial functional capacity & safety risk - 30-day Reassessments 30 day Reassessments:: Progressing Nutrition - Initial Assessment Nutrition - 30-Day Assessment - Program Goals Nutrition Program Goals: LDL <100 optimal. 100 - 129 Near optimal. 130 - 159 Borderline High. 160 - 189 High. Total Cholesterol <200 desirable. 200 - 239 Borderline High. >/= 240 High. HDL < 40 Low >/=60 High. Triglycerides <150 desirable. <199 optimal. VlDL 5 - 40. HgbA1C <7%. BMI <25 Patient has diagnosis of Hyperlipidemia (ICD E78)?: Yes - Visit Date of Assessment:: 12/29/20 Session #:: 15 - Cholesterol/Lipids Determine presence & major risk factors that modify LDL goal: Hypertension or hypertensive medication, Family history of premature CHD in Male < 55 years: female <65 yearsFa, Age men > 45 years; women >/= 55 years Outcomes/Goals: Pt IDs own risk factors & lifestyle modifications by Session 10, Verbalizes symptoms of angina & response by session 3., Pt independently manages Intervention/Plan: Instruct on personal lipid levels & lipid goals/NCEP guidelines, Instruct on cholesterol Referral to dietitian:: No - After nutritional services spoke with patient, they declined. 30-day Reassessments:: Progressing - Diabetes (Other Core Measures) Diabetes Type: Not Applicable - Weight Mgt (Other Care) Not Applicable: Yes Height: 5 ft 8 in Weight:: 185 lb 8 oz BMI: 28.2 Diagnosis Overweight/Obesity BMI> 30% ICD-10 E66: No Diagnosis High BMI/Morbid Obesity BMI> 35% ICD-10 Z68: No Outcomes/Goals: Pt sets, maintains & shows weight loss goal & trend during rehab Intervention/Plan: Instruct on ideal BMI & set weight loss goal w/patient, Assist pt to ID & incorporate diet changes for weight loss by S9, Encourage goal of using 250-300dcal per session for weight loss 30 day Reassessments:: Progressing - Healthy Eating Habits Will attend diet classes:: Yes Outcomes/Goals:: Consume diet rich in vegs,fruits,whole grain/high fiber,fish,lean meat, Limit sat/trans fats,cholesterol & added salts & sugars Intervention/Plan:: Assess current eating habits 30-day Reassessments:: Progressing - Education Gave educational materials for:: Healthy eating Nutrition - 60-Day Assessment Nutrition - 90-Day Assessment Nutrition - Final Assessment Medical - Initial Assessment Medical- 30-Day Assessment - Visit Date of Eval: 12/29/20 Session #:: 15 - Medication Compliance Preventative Medication(s):: Aspirin, Statin/lipid, Beta alvaro H/O mental health issues: depression, anxiety, or addiction?: No Doesn?t believe in the benefits of treatment?: No Believes medications are unnecessary or harmful?: No Has a concern about medication side effects?: No Expresses concern over the cost of medications?: No Outcomes/Goals: Verbalizes medications,desired effect & common side effects @ DC, Pt self-reports following medication regimen, Keeps card in wallet w/medications listed by DC Interventions/plans: Instruct on medication effects & side effects, Review medication list w/patient every two weeks, Instruct importance of taking meds as ordered & assist problem solving 30-day Reassessments:: Progressing - Tobacco Use Tobacco Use: Non-smoker - Hypertension Hypertension Diagnosis:: Hypertension ICD-10 I10 Resting Blood Pressure:: 122/64 [employer] Hypertension Guidelines: [employer] Hypertension Guidelines. Normal BP Less than 120/80. Elevated BP 120/80. Hypertension Stage 1: BP 130-139/80-89. Hypertesnion Stage 2: BP 140 or higher/90 or higher. Hypertension Crisis: BP higher than 180/120 Peak Exercise Blood Pressure:: 134/70 Outcomes/Goals: Able to verbalize/achieve optimal blood pressure <130/80 Interventions/plan: Instruct on optimal blood pressure, hypertension & medications, Instruct on effects of sodium, alcohol, stress, exercise &hypertension 30 day Reassessments:: Progressing - Tobacco Cessation Referral Smoking Cessation Referral:: No Individual Education/Counseling:: No Education Schedule Given:: Yes Medical- 60-Day Assessment Medical- 90-Day Assessment Medical - Final Assessment Psychosocial - Initial Assess Psychosocial - 30-Day Assess - VIsit Date of Eval: 12/29/20 Session #:: 15 Not Applicable: Yes History of previous Mental disease:: No - Psychosocial Test Tool Used:: PHQ-9 Questionnaire phq-9 Severity: Severity. 1-4 Minimal Depression. 5-9 Mild Depression. 10-14 Moderate Depression. 15-19 Moderately Sever Depression. 20-27 Severe Depression. Rule: - Referral to Behavioral Health PS - Interventions: Yes Attend Stress Management Classes, No Referral to Behavioral Health if PHQ-9 score >9:, No Referral to [facility], No Referral to Physician if PHQ-9 if score is 5-9: - Outcomes/Goals: See list Psychosocial Outcomes/Goals:: ID's personal stressors & 2 strategies to manage stress by discharge - Intervention/Plan: See List Interventions/Plan:: Assess stressors,coping strategies & signs of derpression on admission, Instruct/assist pt to develop coping & personal stress Mgt strategies, Instruct patient to recognize signs & symptoms of depression, Instruct patient to recog - 30-day Reassessments: 30 day Reassessments:: Progressing Psychosocial - 60-Day Assess Psychosocial - 90-Day Assess Psychosocial - Final Assessmen Patient Health Questionnaire 60-Day Re-eval Assessment 1. Little interest or pleasure in doing things: Not at all 2. Feeling down, depressed, or hopeless: Not at all 3. Trouble falling or staying asleep, or sleeping too much: Several days 4. Feeling tired or having little energy: Not at all 5. Poor appetite or overeating: Not at all 6. Feeling bad about yourself -- or that you are a failure or have let yourself or your family down: Not at all 7. Trouble concentrating on things, such as reading the newspaper or watching television: Not at all 8. Moving or speaking so slowly that other people could have noticed. Or the opposite - being so fidgety or restless that you have been moving around a lot more than usual: Not at all 9. Thoughts that you would be better off , or of hurting yourself in some way: Not at all How difficult have these problems made it for you to do your work, take care of things at home, or get along with other people?: Not difficult at all Total Score: 1 Self-Efficacy 60-Day Re-eval Assessment We would like to know how confident you are in doing certain activities. Please select your confidence level for:: Select your confidence level for the following using the scale 1-10 where 1 is not at all confident and 10 is totally confident. Your score is the average of all 6 responses. Fatigue: How confident are you that you can keep the fatigue caused by your disease from interfering with the things you want to do? Select Number: 9 Physical Discomfort or Pain: How confident are you that you can keep the physical discomfort or pain of your disease from interfering with the things you want to do? Select Number: 10 Emotional Distress: How confident are you that you can keep the emotional distress caused by your disease from interfering with the things you want to do? Select Number: 10 Other Symptoms or Health Problems: How confident are you that you can keep other symptoms or health problems from interfering with the things you want to do? Select Number: 10 Different Tasks and Activities: How confident are you that you can do the different tasks and activities needed to manage your health condition so as to reduce your need to see a doctor? Select Number: 10 Medication: How confident are you that you can do things other than just taking medication to reduce how much your illness affects your everyday life? Select Number: 10 Total Score:: 9 Nutrition Survey
[2020-12-29 08:23] VITALS: BP 122/64; BP 134/70; BMI 28.2
== END 2021-01-07 23:59 ==
LOC: CR 08:00
PROVIDERS: PCP Internal Medicine; Referring Provider Internal Medicine Cardiovascular Disease; Visit Provider Internal Medicine Cardiovascular Disease
DX: I97.89 Other postprocedural complications and disorders of the circulatory system, not elsewhere classified (principal); I48.91 Unspecified atrial fibrillation; E78.00 Pure hypercholesterolemia, unspecified; Z95.828 Presence of other vascular implants and grafts; Z95.3 Presence of xenogenic heart valve
CPT/HCPCS: 93798

== ENCOUNTER 2021-02-05 08:00 | Outpatient (RCR) | payer MEDICARE, OTHER, SELFPAY ==
[2021-01-08 00:27] VITALS: BP 122/64; BP 134/70
--- NOTE | 2021-01-31 14:33 | PCM.CR.ITP ---
Diagnosis Exercise - 60-day Assessment - Visit Date of Eval: 01/31/21 Session #:: 21 Comments:: PATIENT WAS PLACED ON A 14-DAY MEDICAL LEAVE FOR [facility]ARANTINE AFTER TESTING POSITIVE FOR COVID-19 AND WAS OFF FROM 12-25-20 THROUGH 01-15-21. - Physician Prescribed Exercise Modalities: Treadmill, Rower, NuStep Frequency: 3x/week for 12 weeks [36 sessions] Intensity: 60-80% of age predicted maximum heart rate reserve Current METSs:: 6.5 Target Heart Rate:: 92-120 Current RPE:: 13 Maximum Excercise HR:: 89 Resting Blood Pressure: 108/60 Maximum Exercise Blood Pressure: 114/70 EKG Type: SB to NSR with rare PAC Current Physical Activity or Exercising minutes: 40:00 - Outcomes & Goals Goals:: Verbalizes understanding of THR, RPE & goal METS by session 6, Documents in home exercise log/reports 30 min aerobic 5 day/wk by DC, Demonstrates accurate pulse taking by DC - Intervention & Plan Exercise Program Goals: Instruct on personal THR & RPE, Instruct on MET level & personal MET goal, Show patient to take own pulse /validate performance until accurate, Instruct on home exercise - 30-day Reassessments 30 day Reassessments:: Progressing - Physical Activity Home Exercise Physical Activity - Home Exercise: Safe Exercise, Warm-up, Self-monitoring, Cool-Down, Home Exercise > 30 min Daily, Sitting Time <3 hours/daily - Outcomes & Goals Outcomes/Goals: Demonstrates correct Warm-up/exercise Cool-Down (S3) if = 2.5 METs, Verbalizes symptoms of exercise intolerance by Session 3 (S3), Demonstrate safe equipment use (S3) & follows exercise prescrition (6) - Intervention & Plan Plan/Intervention: Instruct warm-up & cool-down if exercising at > 2 METs, Instruct on symptoms of exercise intolerance & actions to take, Instruct & monitor on saf, Assess intial functional capacity & safety risk - 30-day Reassessments 30 day Reassessments:: Progressing Nutrition - Initial Assessment Nutrition - 30-Day Assessment Nutrition - 60-Day Assessment - Program Goals Nutrition Program Goals: LDL <100 optimal. 100 - 129 Near optimal. 130 - 159 Borderline High. 160 - 189 High. Total Cholesterol <200 desirable. 200 - 239 Borderline High. >/= 240 High. HDL < 40 Low >/=60 High. Triglycerides <150 desirable. <199 optimal. VlDL 5 - 40. HgbA1C <7%. BMI <25 Patient has diagnosis of Hyperlipidemia (ICD E78)?: Yes - Visit Date of Assessment:: 01/31/21 Session #:: 21 - Cholesterol/Lipids Determine presence & major risk factors that modify LDL goal: Hypertension or hypertensive medication, Age men > 45 years; women >/= 55 years Outcomes/Goals: Pt IDs own risk factors & lifestyle modifications by Session 10, Verbalizes symptoms of angina & response by session 3., Pt independently manages Intervention/Plan: Instruct on personal lipid levels & lipid goals/NCEP guidelines, Instruct on cholesterol Referral to dietitian:: No - After speaking wit patient, they declined 30-day Reassessments:: Progressing - Diabetes (Other Core Measures) Diabetes Type: Not Applicable - Weight Mgt (Other Care) Not Applicable: Yes Height: 5 ft 8 in Weight:: 185 lb BMI: 28.1 Diagnosis Overweight/Obesity BMI> 30% ICD-10 E66: No Diagnosis High BMI/Morbid Obesity BMI> 35% ICD-10 Z68: No Outcomes/Goals: Pt sets, maintains & shows weight loss goal & trend during rehab Intervention/Plan: Instruct on ideal BMI & set weight loss goal w/patient, Assist pt to ID & incorporate diet changes for weight loss by S9, Encourage goal of using 250-300dcal per session for weight loss 30 day Reassessments:: Progressing - Healthy Eating Habits Will attend diet classes:: Yes Outcomes/Goals:: Consume diet rich in vegs,fruits,whole grain/high fiber,fish,lean meat, Limit sat/trans fats,cholesterol & added salts & sugars Intervention/Plan:: Assess current eating habits 30-day Reassessments:: Progressing - Education Gave educational materials for:: Healthy eating Nutrition - 90-Day Assessment Nutrition - Final Assessment Medical - Initial Assessment Medical- 30-Day Assessment Medical- 60-Day Assessment - Visit Date of Eval: 01/31/21 Session #:: 21 - Medication Compliance Preventative Medication(s):: Aspirin, Statin/lipid H/O mental health issues: depression, anxiety, or addiction?: No Doesn?t believe in the benefits of treatment?: No Believes medications are unnecessary or harmful?: No Has a concern about medication side effects?: No Expresses concern over the cost of medications?: No Outcomes/Goals: Verbalizes medications,desired effect & common side effects @ DC, Pt self-reports following medication regimen, Keeps card in wallet w/medications listed by DC Interventions/plans: Instruct on medication effects & side effects, Review medication list w/patient every two weeks, Instruct importance of taking meds as ordered & assist problem solving 30-day Reassessments:: Progressing - Tobacco Use Tobacco Use: Non-smoker - Hypertension Hypertension Diagnosis:: Hypertension ICD-10 I10 Resting Blood Pressure:: 114/70 [place] [employer] Hypertension Guidelines: [place] [employer] Hypertension Guidelines. Normal BP Less than 120/80. Elevated BP 120/80. Hypertension Stage 1: BP 130-139/80-89. Hypertesnion Stage 2: BP 140 or higher/90 or higher. Hypertension Crisis: BP higher than 180/120 Peak Exercise Blood Pressure:: 138/64 Outcomes/Goals: Able to verbalize/achieve optimal blood pressure <130/80, Incorporates diet changes & exercise for blood pressure control by DC Interventions/plan: Instruct on optimal blood pressure, hypertension & medications, Instruct on effects of sodium, alcohol, stress, exercise &hypertension 30 day Reassessments:: Progressing - Tobacco Cessation Referral Smoking Cessation Referral:: No Individual Education/Counseling:: No Education Schedule Given:: Yes Medical- 90-Day Assessment Medical - Final Assessment Psychosocial - Initial Assess Psychosocial - 30-Day Assess Psychosocial - 60-Day Assess - VIsit Date of Eval: 01/31/21 Session #:: 21 Not Applicable: Yes History of previous Mental disease:: No History of Emotional Disorders: Anxious - Psychosocial Test Tool Used:: PHQ-9 Questionnaire phq-9 Severity: Severity. 1-4 Minimal Depression. 5-9 Mild Depression. 10-14 Moderate Depression. 15-19 Moderately Sever Depression. 20-27 Severe Depression. Rule: - Referral to Behavioral Health PS - Interventions: Yes Attend Stress Management Classes, No Referral to Behavioral Health if PHQ-9 score >9:, No Referral to [facility], No Referral to Physician if PHQ-9 if score is 5-9: - Outcomes/Goals: See list Psychosocial Outcomes/Goals:: ID's personal stressors & 2 strategies to manage stress by discharge - Intervention/Plan: See List Interventions/Plan:: Assess stressors,coping strategies & signs of derpression on admission, Instruct/assist pt to develop coping & personal stress Mgt strategies, Instruct patient to recognize signs & symptoms of depression, Instruct patient to recog - 30-day Reassessments: 30 day Reassessments:: Progressing Psychosocial - 90-Day Assess Psychosocial - Final Assessmen Patient Health Questionnaire 60-Day Re-eval Assessment 1. Little interest or pleasure in doing things: Not at all 2. Feeling down, depressed, or hopeless: Not at all 3. Trouble falling or staying asleep, or sleeping too much: Several days 4. Feeling tired or having little energy: Not at all 5. Poor appetite or overeating: Not at all 6. Feeling bad about yourself -- or that you are a failure or have let yourself or your family down: Not at all 7. Trouble concentrating on things, such as reading the newspaper or watching television: Not at all 8. Moving or speaking so slowly that other people could have noticed. Or the opposite - being so fidgety or restless that you have been moving around a lot more than usual: Not at all 9. Thoughts that you would be better off , or of hurting yourself in some way: Not at all How difficult have these problems made it for you to do your work, take care of things at home, or get along with other people?: Not difficult at all Total Score: 1 Self-Efficacy 60-Day Re-eval Assessment We would like to know how confident you are in doing certain activities. Please select your confidence level for:: Select your confidence level for the following using the scale 1-10 where 1 is not at all confident and 10 is totally confident. Your score is the average of all 6 responses. Fatigue: How confident are you that you can keep the fatigue caused by your disease from interfering with the things you want to do? Select Number: 10 Physical Discomfort or Pain: How confident are you that you can keep the physical discomfort or pain of your disease from interfering with the things you want to do? Select Number: 10 Emotional Distress: How confident are you that you can keep the emotional distress caused by your disease from interfering with the things you want to do? Select Number: 10 Other Symptoms or Health Problems: How confident are you that you can keep other symptoms or health problems from interfering with the things you want to do? Select Number: 10 Different Tasks and Activities: How confident are you that you can do the different tasks and activities needed to manage your health condition so as to reduce your need to see a doctor? Select Number: 10 Medication: How confident are you that you can do things other than just taking medication to reduce how much your illness affects your everyday life? Select Number: 10 Total Score:: 10 Nutrition Survey
[2021-01-31 14:43] VITALS: BP 108/60; BP 114/70; BP 138/64; BMI 28.1
== END 2021-02-06 23:59 ==
LOC: CR 08:00
PROVIDERS: PCP Internal Medicine; Referring Provider Internal Medicine Cardiovascular Disease; Visit Provider Internal Medicine Cardiovascular Disease
DX: I97.89 Other postprocedural complications and disorders of the circulatory system, not elsewhere classified (principal); I48.91 Unspecified atrial fibrillation; E78.00 Pure hypercholesterolemia, unspecified; Z95.828 Presence of other vascular implants and grafts; Z95.3 Presence of xenogenic heart valve
CPT/HCPCS: 93798

== ENCOUNTER → 2021-02-12 12:10 | Outpatient (CLI) | payer MEDICARE, OTHER, SELFPAY ==
[2021-01-31 14:43] VITALS: BMI 28.1
== END ==
PROVIDERS: PCP Internal Medicine; Referring Provider Internal Medicine Cardiovascular Disease; Visit Provider Internal Medicine Cardiovascular Disease
DX: I97.89 Other postprocedural complications and disorders of the circulatory system, not elsewhere classified (principal); I48.91 Unspecified atrial fibrillation
CPT/HCPCS: 93225; 93226

== ENCOUNTER 2021-02-28 08:00 | Outpatient (RCR) | payer MEDICARE, OTHER, SELFPAY ==
[2021-01-31 14:43] VITALS: BMI 28.1
[2021-02-07 00:31] VITALS: BP 108/60; BP 114/70; BP 138/64
--- NOTE | 2021-02-28 07:18 | CR.ITP_ITS ---
Diagnosis Exercise - 90-day Assessment - Visit Date of Eval: 02/28/21 Session #:: 28 Comments:: Patient was out of the program 12/27/20 through 01/15/2021 due to positive COVID test. Patient returned on 01/15/21 with a negative test result. - Physician Prescribed Exercise Modalities: Treadmill, Rower, NuStep Frequency: 3x/week for 12 weeks [36 sessions] Intensity: 60-80% of age predicted maximum heart rate reserve Current METSs:: 7.0 patient has met his goal! Current RPE:: 13-15 Maximum Excercise HR:: 88 Resting Blood Pressure: 110/62 Maximum Exercise Blood Pressure: 130/60 EKG Type: SB to Sinus tach with rare PACs Current Physical Activity or Exercising minutes: 43:36 - Outcomes & Goals Goals:: Verbalizes understanding of THR, RPE & goal METS by session 6, Documents in home exercise log/reports 30 min aerobic 5 day/wk by DC, Demonstrates accurate pulse taking by DC - Intervention & Plan Exercise Program Goals: Instruct on personal THR & RPE, Instruct on MET level & personal MET goal, Show patient to take own pulse /validate performance until accurate, Instruct on home exercise - 30-day Reassessments 30 day Reassessments:: Met - Physical Activity Home Exercise Physical Activity - Home Exercise: Safe Exercise, Warm-up, Self-monitoring, Cool-Down, Home Exercise > 30 min Daily, Sitting Time <3 hours/daily - Outcomes & Goals Outcomes/Goals: Demonstrates correct Warm-up/exercise Cool-Down (S3) if = 2.5 METs, Verbalizes symptoms of exercise intolerance by Session 3 (S3), Demonstrate safe equipment use (S3) & follows exercise prescrition (6) - Intervention & Plan Plan/Intervention: Instruct warm-up & cool-down if exercising at > 2 METs, Instruct on symptoms of exercise intolerance & actions to take, Instruct & monitor on saf, Assess intial functional capacity & safety risk - 30-day Reassessments 30 day Reassessments:: Met Nutrition - Initial Assessment Nutrition - 30-Day Assessment Nutrition - 60-Day Assessment Nutrition - 90-Day Assessment - Program Goals Nutrition Program Goals: LDL <100 optimal. 100 - 129 Near optimal. 130 - 159 Borderline High. 160 - 189 High. Total Cholesterol <200 desirable. 200 - 239 Borderline High. >/= 240 High. HDL < 40 Low >/=60 High. Triglycerides <150 desirable. <199 optimal. VlDL 5 - 40. HgbA1C <7%. BMI <25 Patient has diagnosis of Hyperlipidemia (ICD E78)?: Yes - Visit Date of Assessment:: 02/28/21 Session #:: 28 - Cholesterol/Lipids Determine presence & major risk factors that modify LDL goal: Hypertension or hypertensive medication, Low HDL cholesterol <40 mg/dL*, Family history of premature CHD in Male < 55 years: female <65 yearsFa, Age men > 45 years; women >/= 55 years Outcomes/Goals: Pt IDs own risk factors & lifestyle modifications by Session 10, Verbalizes symptoms of angina & response by session 3., Pt independently manages Intervention/Plan: Instruct on personal lipid levels & lipid goals/NCEP guidelines, Instruct on cholesterol Referral to dietitian:: No - Weight Mgt (Other Care) Not Applicable: Yes Height: 5 ft 8 in Weight:: 186 lb BMI: 28.3 Diagnosis Overweight/Obesity BMI> 30% ICD-10 E66: No Diagnosis High BMI/Morbid Obesity BMI> 35% ICD-10 Z68: No Outcomes/Goals: Pt sets, maintains & shows weight loss goal & trend during rehab Intervention/Plan: Instruct on ideal BMI & set weight loss goal w/patient 30 day Reassessments:: Met - Patient's weight remained stable +/- 1 pound - Healthy Eating Habits Will attend diet classes:: Yes Outcomes/Goals:: Consume diet rich in vegs,fruits,whole grain/high fiber,fish,lean meat, Limit sat/trans fats,cholesterol & added salts & sugars Intervention/Plan:: Assess current eating habits 30-day Reassessments:: Met - Education Gave educational materials for:: Healthy eating Nutrition - Final Assessment Medical - Initial Assessment Medical- 30-Day Assessment Medical- 60-Day Assessment Medical- 90-Day Assessment - Visit Date of Eval: 02/28/21 Session #:: 28 - Medication Compliance Preventative Medication(s):: Aspirin, SONALI inhibitor, Statin/lipid, Beta alvaro H/O mental health issues: depression, anxiety, or addiction?: No Doesn?t believe in the benefits of treatment?: No Believes medications are unnecessary or harmful?: No Has a concern about medication side effects?: No Expresses concern over the cost of medications?: No Outcomes/Goals: Verbalizes medications,desired effect & common side effects @ DC, Pt self-reports following medication regimen, Keeps card in wallet w/medications listed by DC Interventions/plans: Instruct on medication effects & side effects, Review medication list w/patient every two weeks, Instruct importance of taking meds as ordered & assist problem solving 30-day Reassessments:: Met - Tobacco Use Tobacco Use: Non-smoker - Hypertension Hypertension Diagnosis:: Hypertension ICD-10 I10 Resting Blood Pressure:: 118/64 [place] [employer] Hypertension Guidelines: [place] [employer] Hypertension Guidelines. Normal BP Less than 120/80. Elevated BP 120/80. Hypertension Stage 1: BP 130-139/80-89. Hypertesnion Stage 2: BP 140 or higher/90 or higher. Hypertension Crisis: BP higher than 180/120 Peak Exercise Blood Pressure:: 124/68 Outcomes/Goals: Able to verbalize/achieve optimal blood pressure <130/80, Incorporates diet changes & exercise for blood pressure control by DC Interventions/plan: Instruct on optimal blood pressure, hypertension & medications, Instruct on effects of sodium, alcohol, stress, exercise &hypertension 30 day Reassessments:: Met - Tobacco Cessation Referral Smoking Cessation Referral:: No Individual Education/Counseling:: No Education Schedule Given:: Yes Medical - Final Assessment Psychosocial - Initial Assess Psychosocial - 30-Day Assess Psychosocial - 60-Day Assess Psychosocial - 90-Day Assess - VIsit Date of Eval: 02/28/21 Session #:: 28 Not Applicable: Yes History of previous Mental disease:: No - Psychosocial Test Tool Used:: PHQ-9 Questionnaire phq-9 Severity: Severity. 1-4 Minimal Depression. 5-9 Mild Depression. 10-14 Moderate Depression. 15-19 Moderately Sever Depression. 20-27 Severe Depression. Rule: - Referral to Behavioral Health PS - Interventions: Yes Attend Stress Management Classes, No Referral to Behavioral Health if PHQ-9 score >9:, No Referral to [facility], No Referral to Physician if PHQ-9 if score is 5-9: - Outcomes/Goals: See list Psychosocial Outcomes/Goals:: ID's personal stressors & 2 strategies to manage stress by discharge - Intervention/Plan: See List Interventions/Plan:: Assess stressors,coping strategies & signs of derpression on admission, Instruct/assist pt to develop coping & personal stress Mgt strategies, Instruct patient to recognize signs & symptoms of depression, Instruct patient to recog - 30-day Reassessments: 30 day Reassessments:: Met Psychosocial - Final Assessmen Patient Health Questionnaire 90-Day Re-eval Assessment 1. Little interest or pleasure in doing things: Not at all 2. Feeling down, depressed, or hopeless: Not at all 3. Trouble falling or staying asleep, or sleeping too much: Not at all 4. Feeling tired or having little energy: Not at all 5. Poor appetite or overeating: Not at all 6. Feeling bad about yourself -- or that you are a failure or have let yourself or your family down: Not at all 7. Trouble concentrating on things, such as reading the newspaper or watching television: Not at all 8. Moving or speaking so slowly that other people could have noticed. Or the opposite - being so fidgety or restless that you have been moving around a lot more than usual: Not at all 9. Thoughts that you would be better off , or of hurting yourself in some way: Not at all Total Score: 0 Self-Efficacy 90-Day Re-eval Assessment We would like to know how confident you are in doing certain activities. Please select your confidence level for:: Select your confidence level for the following using the scale 1-10 where 1 is not at all confident and 10 is totally confident. Your score is the average of all 6 responses. Fatigue: How confident are you that you can keep the fatigue caused by your disease from interfering with the things you want to do? Select Number: 10 Physical Discomfort or Pain: How confident are you that you can keep the physical discomfort or pain of your disease from interfering with the things you want to do? Select Number: 10 Emotional Distress: How confident are you that you can keep the emotional distress caused by your disease from interfering with the things you want to do? Select Number: 10 Other Symptoms or Health Problems: How confident are you that you can keep other symptoms or health problems from interfering with the things you want to do? Select Number: 10 Different Tasks and Activities: How confident are you that you can do the different tasks and activities needed to manage your health condition so as to reduce your need to see a doctor? Select Number: 10 Medication: How confident are you that you can do things other than just taking medication to reduce how much your illness affects your everyday life? Select Number: 10 Total Score:: 10 Nutrition Survey
[2021-02-28 07:29] VITALS: BP 110/62; BP 118/64; BP 124/68; BMI 28.3
== END 2021-03-09 23:59 ==
LOC: CR 08:00
PROVIDERS: PCP Internal Medicine; Referring Provider Internal Medicine Cardiovascular Disease; Visit Provider Internal Medicine Cardiovascular Disease
DX: I97.89 Other postprocedural complications and disorders of the circulatory system, not elsewhere classified (principal); I48.91 Unspecified atrial fibrillation; E78.00 Pure hypercholesterolemia, unspecified; Z95.828 Presence of other vascular implants and grafts; Z95.3 Presence of xenogenic heart valve
CPT/HCPCS: 93798

== ENCOUNTER → 2021-07-05 | Outpatient (CLI) | payer MEDICARE, OTHER, SELFPAY ==
[2021-07-05 10:05] LABS: AST(SGOT) 14 U/L (15-37); Alanine Aminotransfer ALT/SGPT 17 U/L (16-61); Alkaline Phosphatase 80 U/L (45-117); Bilirubin, Direct 0.09 mg/dL (0.00-0.30); Cholesterol 203 mg/dL (200); High Density Lipoprotein 51 mg/dL; Triglycerides 100 mg/dL; Very Low Density Lipoprotein 20 mg/dL (5-40)
== END | disposition home or self-care (01) ==
LOC: LAB 09:04
PROVIDERS: Nurse Practitioner Gerontology; PCP Internal Medicine; Referring Provider Internal Medicine Cardiovascular Disease; Visit Provider Internal Medicine Cardiovascular Disease
DX: I25.10 Atherosclerotic heart disease of native coronary artery without angina pectoris (principal)
CPT/HCPCS: 36415; 80061; 80076

== ENCOUNTER → 2022-01-17 | Outpatient (CLI) | payer MEDICARE, OTHER, SELFPAY | END | disposition home or self-care (01) | LOC: SL 19:54 | PROVIDERS: PCP Internal Medicine; Visit Provider Internal Medicine | DX: G47.33 Obstructive sleep apnea (adult) (pediatric) (principal) | CPT/HCPCS: 95811 ==

== ENCOUNTER → 2022-02-14 | Outpatient (CLI) | payer MEDICARE, OTHER, SELFPAY | END | disposition home or self-care (01) | LOC: SL 08:37 | PROVIDERS: PCP Internal Medicine; Referring Provider Internal Medicine; Visit Provider Internal Medicine | DX: G47.33 Obstructive sleep apnea (adult) (pediatric) (principal) ==

== ENCOUNTER → 2022-07-26 | Outpatient (CLI) | payer MEDICARE, OTHER, SELFPAY ==
[2022-07-26 09:00] LABS: AST(SGOT) 15 U/L (15-37); Alanine Aminotransfer ALT/SGPT 22 U/L (16-61); Alkaline Phosphatase 89 U/L (45-117); Bilirubin, Direct 0.18 mg/dL (0.00-0.30); Cholesterol 165 mg/dL (200); Globulin 4.2 g/dL (2.2-4.2); High Density Lipoprotein 53 mg/dL; Protein, Total 8.2 g/dL (6.4-8.2); Triglycerides 56 mg/dL; Very Low Density Lipoprotein 11 mg/dL (5-40)
== END | disposition home or self-care (01) ==
LOC: LABSPEC 08:06
PROVIDERS: PCP Internal Medicine; Referring Provider Nurse Practitioner Family; Visit Provider Nurse Practitioner Family
DX: E78.00 Pure hypercholesterolemia, unspecified (principal)
CPT/HCPCS: 36415; 80061; 80076

== ENCOUNTER 2022-10-05 12:39 | Emergency (ER) | payer MEDICARE, OTHER, SELFPAY ==
[2022-10-05 12:40] VITALS: BP 102/67; PULSE 84; RESP 16; TEMP 36.9; O2SAT 98; BMI 29.0
--- NOTE | 2022-10-05 13:02 | EKG12_ITS ---
Test Reason : BACK PAIN Blood Pressure : / mmHG Vent. Rate : 075 BPM Atrial Rate : 064 BPM P-R Int : 000 ms QRS Dur : 098 ms QT Int : 392 ms P-R-T Axes : 000 -19 -08 degrees QTc Int : 437 ms Atrial fibrillation Otherwise normal ECG Confirmed by NAM BUI, DAJUAN ([id number]), editorial clerk PADMINI PAYTON ([id number]) on 10/10/2022 8:25:29 AM Referred By: Confirmed By:LAVONNE BROWNING MD
--- NOTE | 2022-10-05 13:03 | RAD_ITS ---
STUDY: X-RAY - LUMBAR SPINE REASON FOR EXAM: Male, 82 years old. pain TECHNIQUE: 3 view(s) of the lumbar spine were obtained. COMPARISON: 07/03/2020 FINDINGS: Normal lumbar lordosis. Mild levoscoliosis centered at L4. There is a normal alignment of the vertebrae. There is multilevel endplate spondylosis of the lumbar vertebrae. There is multi-level degenerative disc disease with multi-level disc space narrowing. Facet hypertrophy in the lower lumbar spine. The soft tissue structures are unremarkable. RAD/Lumbar Spine 2 or 3 Views IMPRESSION: Mild levoscoliosis with degenerative disc disease. MRI would be useful. Electronically Signed: Rafiq Barrow MD at 13:50 EDT ,
--- NOTE | 2022-10-05 13:03 | RAD_ITS ---
STUDY: X-RAY CHEST REASON FOR EXAM: Male, 82 years old. cough TECHNIQUE: PA and lateral views of the chest. COMPARISON: None. 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 The lungs are clear and expanded. Tiny left pleural effusion. There is moderate cardiac enlargement. Normal mediastinum and marcela. Normal visualized pulmonary arteries. There is atherosclerotic tortuosity of the aortic arch and descending thoracic aorta. Normal visualized thoracic spine. Normal visualized ribs, clavicles, and shoulders. There is no demonstrated abnormality of the visualized soft tissue structures of the upper abdomen. RAD/Chest PA and Lateral IMPRESSION: Tiny left pleural effusion. Electronically Signed: Rafiq Barrow MD at 13:52 EDT ,
[2022-10-05] MEDS: HYDROcodone Bitartrate/Apap 5/325 Tablet PO (13:13)
--- NOTE | 2022-10-05 13:23 | EDS_ITS ---
<Statement entered by Alicia Jade MD - 10/05/22 15:33> I have personally performed a face to face assessment of the patient and have reviewed the ORACIO Note. Patient presents for back pain but also was concerned given known leaky heart
--- NOTE | 2022-10-05 13:23 | EX.ED.DYSGE1 ---
HPI History of Present Illness Chief Complaint: Back Narrative Narrative: Patient is 82-year-old male on Eliquis, with extensive cardiac history of atrial fibrillation, CHF, multiple heart surgeries, who presents to the emergency department with 3 to 4 days of right-sided lower back pain. Patient states it hurt worse when he moves. He has history of kidney stones have he does not believe this is it because he is not nauseous, and when he is not moving he is not in pain. He is here with his who is concerned because he has been messing with his Lasix dose, he also has history of some kidney disease. He denies any fever or chills. He also has a cough and some shortness of breath that has been ongoing for multiple weeks. [facility] Medical History (Reviewed 07/22/22 @ 15:53 by Basilio Rivera STRIKE PLATE ATTACHER, STRIKE PLATE ATTACHER-C) Aortic aneurysm Asthma Atherosclerotic heart disease of [place] coronary artery without angina pectoris BPH (benign prostatic hyperplasia) History of echocardiogram (~12/2015) History of left common carotid artery stent placement (~09/27/20) Non-rheumatic mitral regurgitation Non-rheumatic tricuspid valve insufficiency Nonrheumatic mitral (valve) prolapse PARKER (obstructive sleep apnea) Postoperative atrial fibrillation Pure hypercholesterolemia Thoracic aortic aneurysm without rupture Home Medications aspirin 81 mg tablet,delayed release 81 mg PO QDAY 03/11/17 [History Last Taken Unknown] famotidine 20 mg tablet 40 mg PO QHS 06/21/19 [History Last Taken Unknown] ascorbic acid (vitamin C) 1,000 mg tablet 1 gm PO DAILY 06/26/20 [History Last Taken Unknown] cholecalciferol (vitamin D3) 25 mcg (1,000 unit) tablet 25 mcg PO BID 10/13/20 [History Last Taken Unknown] acetaminophen 325 mg tablet 650 mg PO Q6H PRN 10/20/20 [History Last Taken Unknown] losartan 50 mg tablet 50 mg PO DAILY #90 tabs 11/28/20 [Rx Last Taken Unknown] amlodipine 10 mg tablet 10 mg PO DAILY #90 tabs 01/17/22 [Rx Last Taken Unknown] cyanocobalamin (vitamin B-12) 1,000 mcg tablet 1,000 mcg PO DAILY 01/17/22 [History Last Taken Unknown] magnesium 200 mg tablet 200 mg PO DAILY 01/17/22 [History Last Taken Unknown] tamsulosin 0.4 mg capsule 0.4 mg PO QHS 01/17/22 [History Last Taken Unknown] zinc acetate 25 mg (zinc) capsule 25 mg PO DAILY 01/17/22 [History Last Taken Unknown] ezetimibe 10 mg tablet (Zetia) 10 mg PO DAILY #90 tabs 01/30/22 [Rx Last Taken Unknown] amoxicillin 500 mg tablet 2,000 mg PO DAILY before dental visits 07/22/22 [History Last Taken Unknown] coenzyme Q10 100 mg capsule 100 mg PO DAILY 07/22/22 [History Last Taken Unknown] apixaban 5 mg tablet (Eliquis) 5 mg PO BID #60 tabs 08/12/22 [Rx Last Taken Unknown] metoprolol tartrate 50 mg tablet 50 mg PO BID #180 tabs 09/02/22 [Rx Last Taken Unknown] furosemide 40 mg tablet (Lasix) 40 mg PO DAILY #60 tabs 10/04/22 [Rx Last Taken Unknown] potassium chloride 20 mEq tablet,extended release 20 meq PO DAILY #60 tabs 10/04/22 [Rx Last Taken Unknown] hydrocodone-acetaminophen 5-325mg 5mg-325mg 1 tab PO Q8H PRN pain 3 days #10 tabs 10/05/22 [Rx Last Taken Unknown] Allergy/AdvReac Type Severity Reaction Status Date / Time Jtboteg-JFL-NdL Reductase AdvReac Severe intolerence Verified 10/05/22 12:42 Inhibitor [Xgomaeq-Qvl-Sej Reductase Inhibitor] atenolol AdvReac Intermediate unknown Verified 10/05/22 12:42 hydrochlorothiazide AdvReac Intermediate unknown Verified 10/05/22 12:42 red yeast rice AdvReac Intermediate unknown Verified 10/05/22 12:42 Family History Mother Hypertension Father CAD (coronary artery disease) Hypertension Grandmother CAD (coronary artery disease) Surgical History H/O hemorrhoidectomy History of aortic valve replacement with bioprosthetic valve (~09/27/20) History of cardiac catheterization (~03/2003) History of tricuspid valve repair (~09/27/20) Hx of ascending aorta replacement (~09/27/20) Social History (Reviewed 07/22/22 @ 15:53 by Basilio H Roof [employer]IKE PLATE ATTACHER, STRIKE PLATE ATTACHER-C) Smoking Status: Never smoker alcohol intake: never substance use type: does not use caffeine: Yes Type: coffee Number of servings: 5 ROS ROS ED ROS Narrative Constitutional: Negative for fever, chills, weight loss, weakness Eyes: Negative for vision loss, vision change, double vision ENT: Negative for any sore throat, ear pain, congestion Cardiovascular: Negative for any chest pain, tightness, palpitations Respiratory: Negative for any sputum production, hemoptysis, dyspnea, orthopnea. Positive for cough, positive for dyspnea on exertion Gastrointestinal: Negative for any abdominal pain, nausea, vomiting, diarrhea, constipation, blood in stool, blood in vomit : Negative for any urinary frequency, dysuria, retention, blood in urine Muscle skeletal: Negative for any muscle joint pain, stiffness, myalgias, arthralgias, neck pain. Positive for back pain Neurological: Negative for any headache, syncope, numbness or tingling, dizziness Skin: Negative for any rashes, lumps, itching, abrasions, lacerations Psychiatric: Negative for any depression, anxiety, stress, suicidal ideation, homicidal ideation Hematologic: Negative for any easy bruising, excessive bruising, easy bleeding Allergies: Negative for any eczema, hives, rash EXAM Physical Exam Narrative Exam Narrative: Vital signs reviewed. HEET: Head normocephalic atraumatic, TMs clear bilaterally. Posterior pharynx is clear, moist mucous membranes. Nares clear bilaterally. Neck: Supple with no lymphadenopathy or tenderness. No signs of meningismus, negative jolt sign. Cardiac: Regular rate and rhythm +3 systolic murmur, no gallops or rubs, equal peripheral pulses bilaterally. Respiratory: Lungs clear to auscultation bilaterally. No chest tenderness. Abdomen: Soft, nontender, nondistended. No abdominal bruit or pulsatile masses. No hepatosplenomegaly Extremities: No peripheral edema, no signs of gross trauma or deformity. Active full range of motion of all extremities. Neuro: Cranial nerves II through XII intact, no focal neurological deficits. Skin: Clean dry and intact with no rash, purpura, petechiae, vesicles or pustules. Backs/flank: No CVA tenderness, no midline spinal tenderness, no deformity. Slight pain on palpation, worse with movement. Psych: Normal mood and affect. No SI, HI or acute psychosis. Const Vital Signs: 10/05/22 12:40 Temperature 98.4 F Temperature Source Temporal Pulse Rate 84 Respiratory Rate 16 Blood Pressure 102/67 Blood Pressure Mean 78 Pulse Ox 98 Oxygen Delivery Method Room Air Positive well nourished and well developed General Appearance ED: well developed MDM MDM Lab Data Labs: Laboratory Results - last 24 hr 10/05/22 13:10 WBC 8.1 RBC 3.39 L Hgb 9.7 L Hct 31.5 L MCV 92.9 MCH 28.6 MCHC 30.8 L RDW Std Deviation 52.4 H RDW Coeff of Duyen 15.3 H Plt Count 214 MPV 9.0 Immature Gran % (Auto) 0.700 Neut % (Auto) 85.5 H Lymph % (Auto) 5.8 L Simpson % (Auto) 7.3 Eos % (Auto) 0.5 Baso % (Auto) 0.2 Absolute Neuts (auto) 7.0 Absolute Lymphs (auto) 0.47 L Nucleated RBC % 0 EKG Sinus rhythm: Attestation: I personally reviewed and interpreted this EKG as follows: Comments: Rate of 75 bpm, no acute ST elevation, QRS duration 98 ms, no acute infarct Treatment and Re-Evaluation :: Patient appears generally well, patient appears nontoxic, vital signs are stable. Patient presents to the emergency department concerning for right lower back pain however the is concerned more for shortness of breath, cough secondary to messing with the Lasix doses at home. Patient will receive a lumbar x-ray looking for any compression fracture, patient received a chest x-ray concerning for any effusion or pneumonia. Patient also some basic laboratory values including a BNP to ensure there is no significant elevation. Patient was given a [place] here for pain. Patient received a full work-up. Patient's labs show slight anemia on the CBC with hemoglobin 9.7, this was compared to some labs 2 weeks ago, he was around 10. Minor change. Patient's chemistries were unremarkable, patient's BNP is 198.6. Patient lipase was negative. There is no evidence of any acute electrolyte abnormality. Patient's chest x-ray showed no pulmonary infiltrate however did show small tiny left pleural effusion, patient's lumbar spine x-ray was negative for any acute osseous abnormality only chronic changes and arthritis. Urinalysis negative for any infection. Patient's EKG was unremarkable. At this time, patient be diagnosed with muscle skeletal back pain as well as anemia. [place] will be sent for his pain. All questions answered, the patient will need to follow-up with his PCP regarding repeat laboratory values. All questions answered, patient stable for discharge. Discharge Plan Triage Chief Complaint: Back ED Midlevel Provider: Victor Manuel Jurado ED Provider: Alicia Jade Dx/Rx/DC Orders Clinical Impression: History of acute congestive heart failure, Anemia, Acute lumbar myofascial strain Instructions: Anemia, ED Back Sprain/Strain Prescriptions: New hydrocodone-acetaminophen 5-325 mg tablet 1 tab PO Q8H PRN (Reason: pain) 3 Days Qty: 10 0RF No Action aspirin 81 mg tablet,delayed release (DR/EC) 81 mg PO QDAY famotidine 20 mg tablet 40 mg PO QHS ascorbic acid (vitamin C) 1,000 mg tablet 1 gm PO DAILY acetaminophen 325 mg tablet 650 mg PO Q6H PRN tamsulosin 0.4 mg capsule 0.4 mg PO QHS cyanocobalamin (vitamin B-12) 1,000 mcg tablet 1,000 mcg PO DAILY magnesium 200 mg tablet 200 mg PO DAILY zinc acetate 25 mg (zinc) capsule 25 mg PO DAILY amlodipine 10 mg tablet 10 mg PO DAILY Qty: 90 3RF coenzyme Q10 100 mg capsule 100 mg PO DAILY Patient Comments: TAKE 1 CAPSULE BY MOUTH ONCE DAILY cholecalciferol (vitamin D3) 25 mcg (1,000 unit) tablet 25 mcg PO BID losartan 50 mg tablet 50 mg PO DAILY Qty: 90 3RF ezetimibe [Zetia] 10 mg tablet 10 mg PO DAILY Qty: 90 3RF amoxicillin 500 mg tablet 2,000 mg PO DAILY Eliquis 5 mg tablet 5 mg PO BID Qty: 60 11RF metoprolol tartrate 50 mg tablet 50 mg PO BID Qty: 180 3RF furosemide [Lasix] 40 mg tablet 40 mg PO DAILY Qty: 60 1RF potassium chloride 20 mEq tablet extended release 20 meq PO DAILY Qty: 60 1RF Primary Care Provider: Rosemarie Samaniego Referrals: Rosemarie Samaniego MD [Primary Care Provider] - Activity Restrictions/Additional Instructions: Please ice, heat, perform gentle stretching Disposition Disposition: Home, Self Care
[2022-10-05 13:30] LABS: Absolute Lymphocyte Count 0.47 X10^3/uL (0.83-4.51); Basophil# 0.02 X10^3/uL; Basophil% 0.2 % (0-1); Differential Indicated SCAN CRITERIA MET; Eosinophil# 0.04 X10^3/uL; Eosinophils% 0.5 % (0-5); Hematocrit 31.5 % (40-54); Hemoglobin 9.7 g/dL (13.0-16.5); Lymphocyte # 0.47 X10^3/ul (0.83-4.51); Lymphocyte % 5.8 % (19-41); Mean Corp Hgb Conc 30.8 g/dL (32-36); Mean Corpuscular Hgb 28.6 pg (27.0-32.0); Mean Corpuscular Volume 92.9 fL (80-94); Monocyte# 0.59 X10^3/uL; Monocyte% 7.3 % (0-10); NRBC Flagged by Analyzer 0 % (0-5); Neutrophil # 6.95 X10^3/uL (2.7-7.7); Neutrophil % 85.5 % (47-70); POSITIVE DIFFERENTIAL YES; Platelet Count 214 K/mm3 (150-450); RBC Distribution Width CV 15.3 % (11.6-14.6); RBC Distribution Width SD 52.4 fl (35.1-43.9); Red Blood Count 3.39 M/mm3 (4.6-6.2); White Blood Count 8.1 K/mm3 (4.4-11.0)
[2022-10-05 13:40] LABS: ALB/GLOB Ratio 0.6 RATIO (0.9-2.4); AST(SGOT) 33 U/L (15-37); Alanine Aminotransfer ALT/SGPT 43 U/L (16-61); Albumin, Serum 2.8 g/dL (3.2-5.0); Alkaline Phosphatase 95 U/L (45-117); Anion Gap 5 (5-15); BUN 27 mg/dL (7-18); BUN/Creat Ratio 21.6 RATIO (10-20); Calcium,Total 8.8 mg/dL (8.5-10.1); Chloride 103 mmol/L (98-107); Creatinine, Serum 1.25 mg/dL (0.70-1.30); EST Glomerular Filtration Rate 59 mL/min (>60); Est Glom Filt Rate - Afr Amer 71 mL/min (>60); Globulin 4.6 g/dL (2.2-4.2); Glucose 107 mg/dL (74-106); Lipase 64 U/L (13-75); Potassium 4.4 mmol/L (3.5-5.1); Protein, Total 7.4 g/dL (6.4-8.2); Sodium Level 135 mmol/L (136-145)
[2022-10-05 13:50] LABS: BNP,B-Type NATRIURETIC PEPTIDE 198.6 pg/mL (0-100)
[2022-10-05 13:55] LABS: Bacteria 0 SEEN /hpf (None Seen); Mucous, Urine 0 SEEN /hpf (<or=2+); Red Blood Cells-Urine 0 SEEN /hpf (0-5); Squamous Epithelial Cells - UA 0 SEEN /hpf (0-5); White Blood Cells 0 SEEN /hpf (0-5)
[2022-10-05 13:57] LABS: Color, Urine Yellow (Yellow); Glucose, Dipstick Normal (Normal); Ketone-Dipstick Negative (Negative); Leukocyte Esterase-Dipstick Negative /ul (Negative); Nitrite-Dipstick Negative (Negative); Occult Blood-Urine Negative /ul (Negative); Protein-Dipstick Negative (Negative); Specific Gravity, Urine 1.015 (1.002-1.030); Urine Bilirubin Dipstick Negative (Negative); Urine Clarity Clear (Clear); Urine Urobilinogen Normal (Normal)
== END 2022-10-05 14:37 | disposition home or self-care (01) ==
PROVIDERS: Nurse Practitioner; Emergency Provider Emergency Medicine; PCP Internal Medicine; Visit Provider Emergency Medicine
DX: I48.91 Unspecified atrial fibrillation (principal); I50.9 Heart failure, unspecified; S39.012A Strain of muscle, fascia and tendon of lower back, initial encounter; I25.10 Atherosclerotic heart disease of native coronary artery without angina pectoris; D64.9 Anemia, unspecified; Z79.01 Long term (current) use of anticoagulants; X58.XXXA Exposure to other specified factors, initial encounter
CPT/HCPCS: 71046; 72100; 80053; 81001; 83690; 83880; 85025; 93005; 99284; A4216

== ENCOUNTER 2022-11-01 18:53 | Inpatient (IN) | payer MEDICARE, OTHER, SELFPAY ==
[2022-11-01] VITALS (24 sets, daily range): BP systolic 92–145; BP diastolic 64–108; PULSE 99–160; RESP 12–26; TEMP 36.2–37.5; O2SAT 95–100; BMI 29.0; BMI 28.3
--- NOTE | 2022-11-01 19:04 | RAD_ITS ---
STUDY: X-RAY CHEST REASON FOR EXAM: Male, 82 years old. Dyspnea TECHNIQUE: Single AP portable view of the chest. COMPARISON: 10/05/2022 FINDINGS: Status post median sternotomy. The lungs are clear and expanded. There is no demonstrated pleural abnormality. There is moderate cardiac enlargement. Normal mediastinum and marcela. Normal visualized pulmonary arteries. There is atherosclerotic tortuosity of the aortic arch and descending thoracic aorta. Stent graft in the aortic arch. Normal visualized thoracic spine. Normal visualized ribs, clavicles, and shoulders. There is no demonstrated abnormality of the visualized soft tissue structures of the upper abdomen. RAD/Chest 1 View (Portable) IMPRESSION: No active disease. Electronically Signed: Rafiq Barrow MD at 19:14 EDT ,
--- NOTE | 2022-11-01 19:04 | EX.ED.DYSGE1 ---
HPI History of Present Illness Chief Complaint: General Illness Detail of Chief Complaint: Right lower back pain, intermittent abdominal pain Informant: patient and spouse/S.O. Onset/Context/Timing Onset: Days Context: Sudden Onset Timing: Intermittent Quality: Pain Location: Right lower back multiple areas abdomen Current Severity: Mild Maximum Severity: Moderate Worsened by: Back pain is made worse with movement abdominal pain nothing Relieved by: Nothing for both Associated Symptoms Associated Symptoms: Detailed HPI narrative Narrative Narrative: Patient is an 82-year-old male with history of atherosclerotic heart disease, atrial fibrillation paroxysmal, stent left common carotid artery, ascending aortic graft, aortic valve replacement, pure hypercholesterolemia and hypertension. Patient is apixaban for his paroxysmal atrial fibrillation. Patient was unaware that he was in A-fib. Rate varies between 130-160. He does report mild shortness of breath with activity. He presently is not short of breath. He states he has not taken his diuretic last couple of days. He denies orthopnea. He denies PND. He had one episode of chest pain that was brief in duration i.e. less than 1 minute. Pain was located in the middle of his chest and described as sharp. He denies history of VTE. He denies leg vein distention, legs discoloration or pain. Patient denies black or maroon-colored stool. Patient denies orthostatic symptoms. Prior similar symptoms: No Recent Illness/Hospitalization: No [facility] Medical History Aortic aneurysm Asthma Atherosclerotic heart disease of [place] coronary artery without angina pectoris BPH (benign prostatic hyperplasia) History of echocardiogram (~12/2015) History of left common carotid artery stent placement (~09/27/20) Non-rheumatic mitral regurgitation Non-rheumatic tricuspid valve insufficiency Nonrheumatic mitral (valve) prolapse PARKER (obstructive sleep apnea) Postoperative atrial fibrillation Pure hypercholesterolemia Thoracic aortic aneurysm without rupture Home Medications aspirin 81 mg tablet,delayed release 81 mg PO QDAY 03/11/17 [History Last Taken Unknown] famotidine 20 mg tablet 40 mg PO QHS 06/21/19 [History Last Taken Unknown] ascorbic acid (vitamin C) 1,000 mg tablet 1 gm PO DAILY 06/26/20 [History Last Taken Unknown] cholecalciferol (vitamin D3) 25 mcg (1,000 unit) tablet 25 mcg PO BID 10/13/20 [History Last Taken Unknown] acetaminophen 325 mg tablet 650 mg PO Q6H PRN pain 10/20/20 [History Last Taken Unknown] losartan 50 mg tablet 50 mg PO DAILY #90 tabs 11/28/20 [Rx Last Taken Unknown] amlodipine 10 mg tablet 10 mg PO DAILY #90 tabs 01/17/22 [Rx Last Taken Unknown] cyanocobalamin (vitamin B-12) 1,000 mcg tablet 1,000 mcg PO DAILY 01/17/22 [History Last Taken Unknown] magnesium 200 mg tablet 200 mg PO DAILY 01/17/22 [History Last Taken Unknown] tamsulosin 0.4 mg capsule 0.4 mg PO QHS 01/17/22 [History Last Taken Unknown] zinc acetate 25 mg (zinc) capsule 25 mg PO DAILY 01/17/22 [History Last Taken Unknown] ezetimibe 10 mg tablet (Zetia) 10 mg PO DAILY #90 tabs 01/30/22 [Rx Last Taken Unknown] coenzyme Q10 100 mg capsule 100 mg PO DAILY 07/22/22 [History Last Taken Unknown] metoprolol tartrate 50 mg tablet 50 mg PO BID #180 tabs 09/02/22 [Rx Last Taken Unknown] furosemide 40 mg tablet See Rx Instructions .Route .COMPLEX #90 tabs 10/16/22 [Rx Last Taken Unknown] potassium chloride 20 mEq tablet,extended release 20 meq PO DAILY #90 tabs 10/16/22 [Rx Last Taken Unknown] apixaban 5 mg tablet (Eliquis) 5 mg PO BID #60 tabs 10/28/22 [Rx Last Taken Unknown] Allergy/AdvReac Type Severity Reaction Status Date / Time Qffecob-VOV-YsY Reductase AdvReac Severe intolerence Verified 11/01/22 19:05 Inhibitor [Xmhcsnd-Zoq-Mnt Reductase Inhibitor] hydrochlorothiazide AdvReac Intermediate unknown Verified 11/01/22 19:05 red yeast rice AdvReac Intermediate unknown Verified 11/01/22 19:05 Family History Mother Hypertension Father CAD (coronary artery disease) Hypertension Grandmother CAD (coronary artery disease) Surgical History H/O hemorrhoidectomy History of aortic valve replacement with bioprosthetic valve (~09/27/20) History of cardiac catheterization (~03/2003) History of tricuspid valve repair (~09/27/20) Hx of ascending aorta replacement (~09/27/20) Social History Smoking Status: Never smoker alcohol intake: never substance use type: does not use caffeine: Yes Type: coffee Number of servings: 5 ROS ROS ED Constitutional Constitutional ED: Denies chills, fever(s), subjective, sweats or weight loss Eyes Eyes: Denies blurry vision, change in vision or diplopia ENT ENT ED: Denies ear pain, rhinorrhea or sore throat Cardiovascular Cardiovascular: Reports chest pain; Denies orthopnea, palpitations, paroxysmal nocturnal dyspnea or racing heartbeat Respiratory/Chest Respiratory/Chest: Reports dyspnea on exertion; Denies cough, dyspnea, orthopnea, paroxysmal nocturnal dyspnea or sputum Gastrointestinal Gastrointestinal: Denies abdominal pain, constipation, diarrhea, melena, nausea or vomiting Genitourinary Genitourinary ED: Denies dysuria, hematuria or urinary frequency Musculoskeletal Musculoskeletal: Reports back pain; Denies arthralgias, myalgias or neck pain Integumentary Denies abscess, Abrasions or rash Neurologic Neurologic: Reports weakness; Denies headache(s) or paresthesias Endocrine Endocrinology: Denies cold intolerance or heat intolerance Hematologic/Lymphatic Hematologic/Lymphatic: Reports systems reviewed and no addt'l complaints, except as documented Allergic/Immunologic Allergic/Immunologic ED: Denies mouth swelling, tongue swelling or urticaria EXAM Physical Exam Const Vital Signs: 11/01/22 18:54 11/01/22 19:01 11/01/22 18:59 Temperature 99.1 F Temperature Source Oral Pulse Rate 160 H 146 H Respiratory Rate 18 21 H Respiratory Effort Short of Breath Respiratory Pattern Tachypnea Blood Pressure 118/86 H 110/83 H Blood Pressure Mean 96 92 Pulse Ox 96 97 Oxygen Delivery Method Room Air Room Air 11/01/22 19:20 11/01/22 19:28 11/01/22 19:29 Temperature Temperature Source Pulse Rate 125 H 115 H 106 H Respiratory Rate 20 H 15 19 H Respiratory Effort Respiratory Pattern Blood Pressure 98/83 H 95/79 102/80 Blood Pressure Mean 88 84 87 Pulse Ox 95 96 95 Oxygen Delivery Method Room Air Room Air 11/01/22 19:34 11/01/22 19:35 11/01/22 19:40 Temperature Temperature Source Pulse Rate 104 H 111 H 101 H Respiratory Rate 19 H 15 17 Respiratory Effort Respiratory Pattern Blood Pressure 92/68 93/70 Blood Pressure Mean 78 79 Pulse Ox Oxygen Delivery Method 11/01/22 19:45 Temperature Temperature Source Pulse Rate 125 H Respiratory Rate 17 Respiratory Effort Respiratory Pattern Blood Pressure 102/76 Blood Pressure Mean 85 Pulse Ox 100 Oxygen Delivery Method Positive well nourished and well developed Constitutional Narrative: Patient does appear pale. He is slightly tachypneic when I entered the room. He denies short of breath, however. General Appearance ED: well developed, NAD and pallor; Negative for cyanotic or diaphoretic HEENT Reports moist mucous membranes HEENT Narrative: Head is atraumatic normocephalic. Ears are normal. Nares are patent. Conjunctive are pale. Posterior pharynx unremarkable. Uvula is midline. Eyes PERRL and EOMs intact bilaterally General Eye ED: Negative for pale conjunctiva or scleral icterus Neck no lymphadenopathy, supple and no JVD Chest Wall inspection of chest normal and palpation of chest normal Resp normal respiratory effort and No clear to auscultation bilaterally Auscultation: rales left base GI normal to inspection, nondistended, normoactive bowel sounds, non-tender and non-distended; Negative for hepatosplenomegaly or no masses GI Narrative: There is no palpable mass or pulsatile mass appreciated. There is no abdominal bruit. Of note he has a 4.5 cm abdominal aortic aneurysm per prior records. Palpation: soft Back/Spine no CVA tenderness Back/Spine Narrative: Pain outpatient right lower back. Neuro oriented x3, CN's II-XII intact bilaterally and no sensory deficits noted Sensorium / Orientation: alert Motor Exam: strength 5/5 throughout Psych mental status grossly normal Skin no rashes or lesions noted and No skin turgor normal General Skin Exam: pallor; Negative for jaundice MDM MDM MDM Narrative Medical decision making narrative: Suspect patient's low back pain is due to muscular pain. Since patient appears pale has pale conjunctive a suspect he is anemic. Will obtain CBC. Will obtain basic metabolic panel to assess renal chin, glucose and electrolytes. Because he had transient pain will obtain troponin. Patient received 2.5 mg of metoprolol. This was decreased 6 patient's blood pressure is dropped since arrival. This was administered for rate control since he has chronic paroxysmal atrial fib. Patient's heart rate did improve with 2.5 mg of metoprolol. Patient's blood pressure however is in the 90s. This may be due to anemia from blood loss. Stool was sent for occult testing since it was not grossly bloody or black. Records from cardiology were reviewed. He is mainly seen for hypertension and atrial fibrillation. He also has outside records for hypertension. History & Record Review Discussion w/independent historian: Patient and Significant other Additional record(s) reviewed:: Prior outpatient record, Prior ED visit and Prior labs Lab Data Attestation: I reviewed the patient's lab results. Lab results narrative: CBC is remarkable for anemia. Indices are slightly abnormal. Platelet count is normal. BUN and creatinine are 19 and 1.46 with a GFR 49. First troponin is normal at 14. Glucose is 142 with a normal CO2 and anion gap. Comparing prior labs indicates that patient's hemoglobin is dropped approximately 2 g in less than a month. His creatinine is at slightly above baseline. Labs: Laboratory Results - last 24 hr 11/01/22 19:00 WBC 6.1 RBC 2.80 L Hgb 7.5 L Hct 24.8 L MCV 88.6 MCH 26.8 L MCHC 30.2 L RDW Std Deviation 52.3 H RDW Coeff of Duyen 16.0 H Plt Count 167 MPV 8.2 Immature Gran % (Auto) 0.500 Neut % (Auto) 88.4 H Lymph % (Auto) 6.1 L Cataño % (Auto) 4.1 Eos % (Auto) 0.7 Baso % (Auto) 0.2 Absolute Neuts (auto) 5.4 Absolute Lymphs (auto) 0.37 L Nucleated RBC % 0 Differential Comment SCANNED Sodium 139 Potassium 4.3 Chloride 106 Carbon Dioxide 29.0 Anion Gap 4 L BUN 19 H Creatinine 1.46 H Estim Creat Clear Calc 39.04 Est GFR (MDRD) Af Amer 60 Est GFR (MDRD) Non-Af 49 L BUN/Creatinine Ratio 13.0 Glucose 142 H Calcium 9.0 Troponin I High Sens 14 Radiography Chest X-Ray - ED: 1 View and Read by ED Physician (Patient has evidence of aortic graft. Patient also has wired due to mitral valve repair. There are sternotomy wires noted. Cardiac silhouette and size unremarkable. Mild chronic changes. Perihilar region appears normal. Osseous structures are unremarkable.) Diagnostic Testing: Clinical Impression(s) from Imaging Studies Chest X-Ray 11/01/22 19:04 IMPRESSION: No active disease. Electronically Signed: Rafiq Barrow MD at 19:14 EDT , Differential Diagnosis Chest pain/SOB: pneumothorax Reason(s) pneumothorax less likely: Positive for bilateral breath sounds and [employer] withhout PTX, pneumonia Reason(s) pneumonia less likely: Positive for no infiltrate on CXR, no elevation in WBC count, no noted fever and symptoms not consistent with acute infection, aortic dissection and CHF Reason(s) CHF less likely: Positive for no significant peripheral edema, no orthopnea, no evidence of fluid overload on CXR and BtNP not significantly elevated over normal/baseline Management Discussion w/another healthcare provider: Hospitalist (The hospitalist has been paged. Will inform Dr. Medina of patient's history physical and need for admission.) Critical Care Time Critical Care Time: Yes Critical care time (excluding procedures): 30-74 minutes (31), Including time spent: (History, physical, documentation, review of prior records, initiation of therapy), Discussing w/Patient &/or Family/Rn Radiation (Informed patient and spouse of the test results need for admission), Discussing w/Consultants (Dr. Medina hospitalist for admission) and Arranging Admission or Transfer Discharge Plan Dx/Rx/DC Orders Clinical Impression: Atrial fibrillation with RVR, Essential hypertension, Atherosclerotic heart disease of [place] coronary artery without angina pectoris, Acute hypotension, Acute on chronic anemia, Anticoagulant long-term use, Acute right-sided low back pain Disposition Disposition: Acute Care Hospital [facility]
[2022-11-01 19:10] LABS: Absolute Lymphocyte Count 0.37 X10^3/uL (0.83-4.51); Absolute Neutrophil Count 5.4 X10^3/uL (2.0-7.7); Basophil# 0.01 X10^3/uL; Basophil% 0.2 % (0-1); Eosinophil# 0.04 X10^3/uL; Eosinophils% 0.7 % (0-5); Hematocrit 24.8 % (40-54); Hemoglobin 7.5 g/dL (13.0-16.5); Lymphocyte # 0.37 X10^3/ul (0.83-4.51); Lymphocyte % 6.1 % (19-41); Mean Corp Hgb Conc 30.2 g/dL (32-36); Mean Corpuscular Hgb 26.8 pg (27.0-32.0); Mean Corpuscular Volume 88.6 fL (80-94); Mean Platelet Vol. 8.2 fl (6.2-12.0); Monocyte# 0.25 X10^3/uL; Monocyte% 4.1 % (0-10); NRBC Flagged by Analyzer 0 % (0-5); Neutrophil # 5.36 X10^3/uL (2.7-7.7); Neutrophil % 88.4 % (47-70); POSITIVE DIFFERENTIAL YES; Platelet Count 167 K/mm3 (150-450); RBC Distribution Width SD 52.3 fl (35.1-43.9); White Blood Count 6.1 K/mm3 (4.4-11.0)
[2022-11-01 19:12] LABS: Differential Indicated SCAN CRITERIA MET
[2022-11-01] MEDS: Metoprolol Tartrate 5 MG/5 ML Vial 2.5 MG IV (19:22)
[2022-11-01 19:27] LABS: Anion Gap 4 (5-15); BUN 19 mg/dL (7-18); Chloride 106 mmol/L (98-107); Creatinine, Serum 1.46 mg/dL (0.70-1.30); EST Glomerular Filtration Rate 49 mL/min (>60); Est Glom Filt Rate - Afr Amer 60 mL/min (>60); Estimated Creatinine Clearance 39.04 ml/min; Glucose 142 mg/dL (74-106); Potassium 4.3 mmol/L (3.5-5.1); Sodium Level 139 mmol/L (136-145); Troponin-I HS 14 pg/mL (3.0-78.0)
[2022-11-01 19:55] LABS: Differential Comment SCANNED
--- NOTE | 2022-11-01 20:00 | HP.PCM.HOS_ITS ---
[facility] - General General Date of Admission: 11/01/22 Date of Service: 11/01/22 Chief Complaint: Fatigue/right-sided low back pain/intermittent abdominal pain [facility] Narrative DAYA HOLDEN, is a 82 M who presented to the emergency department with multiple complaints to include fatigue, right-sided low back pain, and intermittent abdominal pain. His presents with him and talks over him for a significant amount of the history. Evidently they were traveling several weeks ago in early to mid September and were in [place]. The day they were supposed to leave it sounds like the patient developed rigors but he was able to make it home and since that point time he has had fatigue, right-sided low back pain and has had intermittent bouts of A-fib with RVR. He has a history of A-fib with RVR. Per the he experienced it after his heart surgery several years ago. He had been on amiodarone but this was discontinued by cardiology. Since that point time as of recently he is had intermittent RVR with heart rates as high as 150 at times. Due to his symptoms they stopped his diuretic 2 days ago. He has had some increased lower extremity swelling but denied any orthopnea or worsening shortness of breath. He had some epigastric pain earlier today but it since resolved. He has had no melena, hematochezia, hematemesis or coffee-lazaro und emesis. And no recent hospitalizations. They said they have called cardiology office several times but have not been able to obtain an appointment. His back pain is off to the right side and the right flank to right upper pelvic area Vital signs on presentation showed temperature of 99.1, heart rate was 160, blood pressure was 118/86, respiratory rate was 18 and oxygen saturations were 96% on room air. He was given some metoprolol on his blood pressures dropped to 98/83. It did improve his heart rate some but he was still between 100-120. His CBC shows a normal white count however he does have a left shift with an 88.4% neutrophilia. His hemoglobin was 7.5 and his platelet count was 167,000. His BMP showed normal electrolytes with an elevated BUN at 19 and a serum creatinine of 1.46 which appears to be elevated from his baseline. He presented for low back pain about a month ago was 1.25 we have no data prior to that. His glucose was mildly elevated 142. His calcium was normal and his troponin was 14. Chest x-ray showed no active disease. EKG was A-fib with RVR and no signs of acute ischemia. In the emergency department he was initially given metoprolol which dropped his blood pressure some and minimally helped his heart rates. I did request an amiodarone bolus at 150 mg to be given and ER physician agreed. Given his recent fatigue issues and rigors he had back in September we will check sed rate CRP and a procalcitonin. If these are markedly abnormal I will further pursue infectious work-up given the fact that he does have a left shift on his labs. [facility] Medical History Aortic aneurysm Asthma Atherosclerotic heart disease of [place] coronary artery without angina pectoris BPH (benign prostatic hyperplasia) History of echocardiogram (~12/2015) History of left common carotid artery stent placement (~09/27/20) Non-rheumatic mitral regurgitation Non-rheumatic tricuspid valve insufficiency Nonrheumatic mitral (valve) prolapse PARKER (obstructive sleep apnea) Postoperative atrial fibrillation Pure hypercholesterolemia Thoracic aortic aneurysm without rupture Home Medications aspirin 81 mg tablet,delayed release 81 mg PO QDAY 03/11/17 [History Last Taken Unknown] famotidine 20 mg tablet 40 mg PO QHS 06/21/19 [History Last Taken Unknown] ascorbic acid (vitamin C) 1,000 mg tablet 1 gm PO DAILY 06/26/20 [History Last Taken Unknown] cholecalciferol (vitamin D3) 25 mcg (1,000 unit) tablet 25 mcg PO BID 10/13/20 [History Last Taken Unknown] acetaminophen 325 mg tablet 650 mg PO Q6H PRN pain 10/20/20 [History Last Taken Unknown] losartan 50 mg tablet 50 mg PO DAILY #90 tabs 11/28/20 [Rx Last Taken Unknown] amlodipine 10 mg tablet 10 mg PO DAILY #90 tabs 01/17/22 [Rx Last Taken Unknown] cyanocobalamin (vitamin B-12) 1,000 mcg tablet 1,000 mcg PO DAILY 01/17/22 [History Last Taken Unknown] magnesium 200 mg tablet 200 mg PO DAILY 01/17/22 [History Last Taken Unknown] tamsulosin 0.4 mg capsule 0.4 mg PO QHS 01/17/22 [History Last Taken Unknown] zinc acetate 25 mg (zinc) capsule 25 mg PO DAILY 01/17/22 [History Last Taken Unknown] ezetimibe 10 mg tablet (Zetia) 10 mg PO DAILY #90 tabs 01/30/22 [Rx Last Taken Unknown] coenzyme Q10 100 mg capsule 100 mg PO DAILY 07/22/22 [History Last Taken U nknown] metoprolol tartrate 50 mg tablet 50 mg PO BID #180 tabs 09/02/22 [Rx Last Taken Unknown] furosemide 40 mg tablet See Rx Instructions .Route .COMPLEX #90 tabs 10/16/22 [Rx Last Taken Unknown] potassium chloride 20 mEq tablet,extended release 20 meq PO DAILY #90 tabs 10/16/22 [Rx Last Taken Unknown] apixaban 5 mg tablet (Eliquis) 5 mg PO BID #60 tabs 10/28/22 [Rx Last Taken Unknown] Allergy/AdvReac Type Severity Reaction Status Date / Time Zuqttoj-XVE-AdS Reductase AdvReac Severe intolerence Verified 11/01/22 19:05 Inhibitor [Xsxwfhm-Asz-Agy Reductase Inhibitor] hydrochlorothiazide AdvReac Intermediate unknown Verified 11/01/22 19:05 red yeast rice AdvReac Intermediate unknown Verified 11/01/22 19:05 Family History Mother Hypertension Father CAD (coronary artery disease) Hypertension Grandmother CAD (coronary artery disease) Surgical History H/O hemorrhoidectomy History of aortic valve replacement with bioprosthetic valve (~09/27/20) History of cardiac catheterization (~03/2003) History of tricuspid valve repair (~09/27/20) Hx of ascending aorta replacement (~09/27/20) Social History Smoking Status: Never smoker alcohol intake: never substance use type: does not use caffeine: Yes Type: coffee Number of servings: 5 ROS Constitutional Constitutional: Reports fatigue and weakness; Denies anorexia, change in weight, chills, fever(s), malaise, night sweats or other Eyes Eyes: Denies blurry vision, change in eye color, change in vision, discharge from eye(s), double vision, erythema, eye pain, loss of vision or other ENT HEENT: Denies abnormal hearing, dysphagia, ear pain, epistaxis, headache(s), hearing loss, nasal congestion, nasal discharge, post nasal drip, sinus pressure, sore throat or other Cardiovascular Cardiovascular: Reports rapid heart rate; Denies chest pain, claudication, dyspnea on exertion, edema, lightheadedness, orthopnea, palpitations, paroxysmal nocturnal dyspnea, syncope or other Respiratory/Chest Respiratory/Chest: Reports shortness of breath with exertion Gastrointestinal Gastrointestinal: Reports diarrhea and dyspepsia Genitourinary Genitourinary: Denies burning urination, difficulty urinating, dysuria, hematuria, nocturia, urinary frequency, urinary hesitancy, urinary incontinence, urinary urgency or other Musculoskeletal Musculoskeletal: Reports back pain; Denies arthralgias, joint pain, joint stiffness, joint swelling, myalgias, neck pain or other Neurologic Neurologic: Denies abnormal gait, abnormal speech, confusion, disequilibrium, dizziness, focal weakness, headache(s), numbness, paresthesias, seizure-like activity, seizures, syncope, tingling, tremor(s) or other Psychiatric Psychiatric: Denies anxiety, depression, homicidal ideation, suicidal ideation or other Endocrine Endocrinology: Denies change in body appearance, cold intolerance, excessive sweating, heat intolerance, polydipsia, polyuria or other Allergic/Immunologic Allergic/Immunologic: Denies rhinitis, hives, eczemia, asthma or other Vital Signs Vital Signs Vital Signs: 11/01/22 18:54 11/01/22 19:01 11/01/22 18:59 Temperature 99.1 F Temperature Source Oral Pulse Rate 160 H 146 H Respiratory Rate 18 21 H Respiratory Effort Short of Breath Respiratory Pattern Tachypnea Blood Pressure 118/86 H 110/83 H Blood Pressure Mean 96 92 Pulse Ox 96 97 Oxygen Delivery Method Room Air Room Air 11/01/22 19:20 11/01/22 19:28 11/01/22 19:29 Temperature Temperature Source Pulse Rate 125 H 115 H 106 H Respiratory Rate 20 H 15 19 H Respiratory Effort Respiratory Pattern Blood Pressure 98/83 H 95/79 102/80 Blood Pressure Mean 88 84 87 Pulse Ox 95 96 95 Oxygen Delivery Method Room Air Room Air 11/01/22 19:34 11/01/22 19:35 11/01/22 19:40 Temperature Temperature Source Pulse Rate 104 H 111 H 101 H Respiratory Rate 19 H 15 17 Respiratory Effort Respiratory Pattern Blood Pressure 92/68 93/70 Blood Pressure Mean 78 79 Pulse Ox Oxygen Delivery Method 11/01/22 19:45 Temperature Temperature Source Pulse Rate 125 H Respiratory Rate 17 Respiratory Effort Respiratory Pattern Blood Pressure 102/76 Blood Pressure Mean 85 Pulse Ox 100 Oxygen Delivery Method Weight Weight: 86.636 kg Body Mass Index (BMI) 29.0 Physical Exam Const alert, oriented x3, no apparent distress and well nourished Constitutional Narrative: Overweight, elderly, white male, lying in bed, at bedside, she does significant amount of talking for him, patient appears fatigued but nontoxic and currently comfortable General Appearance: cooperative HEENT normocephalic, head/scalp atraumatic, hearing grossly normal bilaterally and moist oral mucous membranes HEENT Narrative: Mallampati 3, no thrush Eyes PERRL and EOMs intact bilaterally; Negative for conjunctivae normal Eyes Narrative: Conjunctiva are pale bilaterally, no scleral icterus Neck no lymphadenopathy, supple and no JVD Resp normal respiratory effort, no retractions, no use of accessory muscles and clear to auscultation bilaterally Auscultation: Negative for rales, rhonchi or wheezes Cardio S1 normal heart sound, S2 normal heart sound, no murmurs, no rub, no gallops and no clicks; Negative for regular rate or regular rhythm Cardio Narrative: Irregular irregular rhythm with tachycardia, 2 out of 6 systolic murmur loudest at left lower sternal border GI normal to inspection, nondistended, normoactive bowel sounds, soft to palpation and non-tender Extremity Extremity Narrative: No clubbing or cyanosis, bilateral lower extremity pitting edema that is about 2+ Neuro oriented x3, CN's II-XII intact bilaterally, moves all extremities and no focal motor deficits Neuro Narrative: Significant generalized weakness noted Speech: speech normal Psych affect normal Psych Narrative: Very pleasant, interacts appropriately Results Medical Records Data Attestation: I reviewed the patient's medical records Lab / Micro Data 11/01/22 19:00 11/01/22 19:00 Labs: Laboratory Results - last 24 hr 11/01/22 19:00: WBC 6.1, RBC 2.80 L, Hgb 7.5 L, Hct 24.8 L, MCV 88.6, MCH 26.8 L , MCHC 30.2 L, RDW Std Deviation 52.3 H, RDW Coeff of Duyen 16.0 H, Plt Count 167, MPV 8.2, Immature Gran % (Auto) 0.500, Neut % (Auto) 88.4 H, Lymph % (Auto) 6.1 L, [place] % (Auto) 4.1, Eos % (Auto) 0.7, Baso % (Auto) 0.2, Absolute Neuts (auto) 5.4, Absolute Lymphs (auto) 0.37 L, Nucleated RBC % 0, Differential Comment SCANNED, Sodium 139, Potassium 4.3, Chloride 106, Carbon Dioxide 29.0, Anion Gap 4 L, BUN 19 H, Creatinine 1.46 H, Estim Creat Clear Calc 39.04, Est GFR (MDRD) Af Amer 60, Est GFR (MDRD) Non-Af 49 L, BUN/Creatinine Ratio 13.0, Glucose 142 H , Calcium 9.0, Troponin I High Sens 14 Micro: Microbiology 11/01/22 19:45 Stool Stool Occult Blood (DEB) - Final Radiology Impression Chest X-Ray 11/01/22 19:04 IMPRESSION: No active disease. Electronically Signed: Rafiq Barrow MD at 19:14 EDT , Assessment & Plan Assessment/Plan (1) Acute on chronic anemia: (2) Acute hypotension: (3) Atrial fibrillation with RVR: (4) Acute right-sided low back pain: (5) Anticoagulant long-term use: (6) Elevated serum creatinine: (7) Weakness: (8) Fatigue: PLAN: Plan A-fib with RVR -This is paroxysmal in nature and he was seen in the emergency department at [facility] on 09/22/2022 by pleat taper who recommended continuing his metoprolol and Eliquis and to obtain an outpatient echocardiogram -This may be the etiology of his fatigue and weakness -Continue home metoprolol with hold parameters for blood pressure -Amiodarone bolus given the emergency department and will continue drip -Would transition to oral amiodarone 200 mg p.o. twice daily tomorrow for 7 days then 200 daily with outpatient cardiology follow-up after discharge -Check TSH -Cycle cardiac enzymes -Check echocardiogram -We will continue anticoagulation for now while further work-up with regards to his anemia is pending Acute hypotension -Blood pressures are somewhat lower than they run at baseline -Baseline appears to be between 110 and 120 systolic with current blood pressures in the 90s systolic -Hold home losartan -Continue home metoprolol with hold parameters given A-fib with RVR -Continue to monitor -Check TSH -Check echocardiogram Elevated serum creatinine -Etiology is not clear at this time -May be cardiorenal as patient has not taken his Lasix in the last 2 days however I cannot give him Lasix with his blood pressures being borderline right now and therefore we are holding it -May also be related to decreased perfusion with blood pressures being lower than normal -We will try to address the above issues and repeat BMP in the a.m. -Hold home losartan and diuretics for now I will Right-sided back pain -No radicular symptoms -Focal on the right side of the low back -CT of the abdomen pelvis is pending to rule out retroperitoneal bleed with acute on chronic anemia -X-ray of the lumbar spine from 10/05/2022 suggested mild levoscoliosis with degenerative disc disease -Patient states he is pain free at rest and pain only occurs on exertion -Check sed rate and CRP -May need outpatient MRI depending on findings and other work-up Acute on chronic anemia -Baseline hemoglobin appears to be running between 9 and 10 -Was 9.7 on 10/05/2022 but now 7.5 -Check iron studies -Guaiac stool pending -Check liver panel for signs of hemolysis -Patient has been holding his diuretics so it theoretically could be dilutional -We will utilize IV PPI twice daily dosing for now and if guaiac positive will consult GI and hold apixaban -Check every 6 hours H&H -We will continue apixaban for now however there is a drop in his hemoglobin further or if he is guaiac positive we will have to discontinue and start SCDs -Depending on follow-up studies GI consultation may be required Fatigue/generalized weakness -Etiology is unclear -May be related to his lower blood pressures in A-fib however its been ongoing for several months now -Check sed rate and CRP -We will check procalcitonin -If any abnormalities consider blood cultures because he does have a left shift with no elevated white count and this appears to to have been present at the end of September a month ago as well--> his also reported that it he had shaking prior to coming back from [place] and I wonder if these were rigors -We will check UA History of aortic valve disease status post aortic valve replacement in 2003 -Echo echo -Most recent echo done a year ago at [facility] was stable -Patient did have postoperative atrial fibrillation that required amiodarone that he took for 2 to 3 months postoperatively Mitral valve insufficiency -Recheck echocardiogram -Previously was 2+ History of ascending aorta replacement -37x10 Craig Tag Device into the arch and to cover the Lt. subclavian origin 09/27/20@ [facility] -Continue outpatient follow-up History of tricuspid valve repair -#28mm MC3 09/27/20 @ [facility] Left common carotid artery stenosis -Status post stent in 2020 at [facility] History of asthma -As needed albuterol BPH -On Flomax PARKER -Continue home CPAP Hyperlipidemia -Continue home Zetia -Patient has statin allergy with myalgias Vitamin D deficiency -Continue cholecalciferol GERD -Hold famotidine and use Protonix as noted above DVT prophylaxis -Continue apixaban for now if need to hold we will start SCDs CODE STATUS -Full code as per discussion on admission Charges/Coding Visit Charges Inpatient E&M: 48225 Init Hosp L3
--- NOTE | 2022-11-01 20:04 | CT_ITS ---
STUDY: CT ABDOMEN AND PELVIS WITHOUT CONTRAST REASON FOR EXAM: Male, 82 years old. back pain with drop in hgb RADIATION DOSAGE (If Supplied By Facility): CTDIvol = ( 9.99 ) mGy, DLP = ( 524.11 ) mGycm TECHNIQUE: Transaxial images were obtained from the dome of the diaphragm to the symphysis pubis without oral contrast, and without intravenous contrast. Sagittal and coronal images were reconstructed. Individualized dose optimization techniques were used for this CT. COMPARISON: None. FINDINGS: The visualized lung bases are unremarkable. The visualized portions of the heart are within normal limits. Normal liver. There is a solitary gallstone. Normal spleen. Normal pancreas. Normal bilateral adrenal glands. 4.5 cm exophytic cyst in the upper pole the right kidney. 6 cm exophytic cyst in the midsection of right kidney. Normal left kidney. Normal visualized stomach. Normal small intestine. There are multiple colonic diverticula consistent with diverticulosis. The appendix is visualized and appears normal. There is diffuse atherosclerotic calcification of the abdominal aorta, without a demonstrated aneurysm. Normal inferior vena cava. Normal retroperitoneum. Normal urinary bladder. There is a small umbilical hernia containing fat. Mild levoscoliosis of lumbar spine with degenerative disc disease. CT/Abdomen/Pelvis without Cont IMPRESSION: 1. No renal or ureteral stone. 2. Large right renal cyst. 3. Sigmoid diverticulosis without diverticulitis. Electronically Signed: Rafiq Barrow MD at 21:20 EDT ,
[2022-11-01 20:30] LABS: Iron 22 ug/dL (65-175); Iron Binding Capacity,Total 205 ug/dL (250-450); PERCENT IRON SATURATION 10.7 % (15.0-55.0)
--- NOTE | 2022-11-01 22:07 | ECHOD_ITS ---
Reason For Study: AFIB Procedure This was a 2D Doppler, Color Flow transthoracic echocardiogram. Exam performed portable in patient room. Left Ventricle Normal size and thickness. The left ventricular ejection fraction is 50 %. Unable to assess diastolic dysfunction due to arrhythmia. Right Ventricle Normal right ventricle. Atria The left atrium is severely enlarged. The right atrium is moderately enlarged. Mitral Valve Moderate (2+) mitral valve insufficiency. Tricuspid Valve Probable tricuspid valve annuloplasty ring. Trivial tricuspid valve insufficiency. Unable to estimate RV systolic pressure due to insufficient tricuspid regurgitant envelope. Aortic Valve Stable appearing bioprosthetic aortic valve apparatus. Pulmonic Valve The pulmonic valve is not well visualized. Great Vessels The aortic root is not well visualized. Pericardium/Pleural No pericardial effusion. MMode/2D Measurements & Calculations LVIDd: 5.5 cm IVSd: 0.99 cm LVOT diam: 2.0 cm LVIDs: 4.0 cm LVPWd: 1.1 cm LVOT area: 3.3 cm2 RVDd: 3.9 cm FS: 27.0 % LAV(MOD-bp): 87.7 ml LVAd ap4: 30.3 cm2 SV(MOD-sp4): 46.3 ml LAV(MOD-bp) Indexed: 44.3 ml/m2 LVLd ap4: 8.1 cm LAV(MOD-sp2): 69.8 ml EDV(MOD-sp4): 96.9 ml LAV(MOD-sp4): 96.5 ml EDV(sp4-el): 95.9 ml LVAs ap4: 20.0 cm2 LVLs ap4: 7.2 cm ESV(MOD-sp4): 50.7 ml ESV(sp4-el): 47.0 ml EF(MOD-sp4): 47.7 % EF(sp4-el): 51.0 % SV(sp4-el): 48.8 ml LA A4 area: 30.0 cm2 LA dimension(2D): 4.9 cm RA A4 area: 24.9 cm2 TAPSE: 1.2 cm Doppler Measurements & Calculations MV E max kunal: 125.8 cm/sec Lat Peak E' Kunal: 13.5 cm/sec Med Peak E' Kunal: 7.6 cm/sec E/E' lat: 9.3 E/E' med: 16.7 MV V2 max: 131.7 cm/sec Ao V2 max: 242.2 cm/sec LV V1 max: 166.8 cm/sec MV max P.0 mmHg Ao max P.5 mmHg LV V1 max P.1 mmHg MV V2 mean: 73.3 cm/sec Ao V2 mean: 171.0 cm/sec LV V1 mean P.7 mmHg MV mean P.7 mmHg Ao mean P.3 mmHg LV V1 mean: 99.7 cm/sec MV V2 VTI: 24.4 cm Ao V2 VTI: 43.8 cm LV V1 VTI: 37.4 cm AV (velocity ratio): 0.85 MVA(VTI): 5.0 cm2 CECI(I,D): 2.8 cm2 CECI(V,D): 2.2 cm2 MR max kunal: 514.2 cm/sec SV(LVOT): 121.8 ml PA V2 max: 107.4 cm/sec MR max P.8 mmHg PA V2 mean: 67.5 cm/sec ECHO/Echo Complete Interpretation Summary The left ventricular ejection fraction is 50 %. The left atrium is severely enlarged. The right atrium is moderately enlarged. Moderate (2+) mitral valve insufficiency. Ordering Physician: Emma Medina Referring Physician: FABRIZIO Performed By: Sheila Sahu RCS
[2022-11-01 22:18] LABS: Hemoglobin 7.3 g/dL (13.0-16.5)
[2022-11-01 22:25] LABS: Erythrocyte Sedimentation Rate 19 mm/hr (0-20)
[2022-11-01 22:31] LABS: AST(SGOT) 21 U/L (15-37); Alanine Aminotransfer ALT/SGPT 23 U/L (16-61); Albumin, Serum 2.9 g/dL (3.2-5.0); Alkaline Phosphatase 85 U/L (45-117); Bilirubin, Direct 0.22 mg/dL (0.00-0.30); Globulin 4.6 g/dL (2.2-4.2); Protein, Total 7.5 g/dL (6.4-8.2)
[2022-11-01] MEDS: Amiodarone 360 MG in Dextrose 5% Viaflo Bag 192.8 ML 33.3 MG CONT INF (22:41)
[2022-11-01] MEDS: 0.9% Saline Lock 10 ML Syringe IV (22:48)
[2022-11-01] MEDS: Metoprolol Tartrate 50 MG Tablet PO (22:50)
[2022-11-01] MEDS: Tamsulosin HCl 0.4 MG Capsule PO (22:50)
[2022-11-01] MEDS: APIXABAN 5 MG TABLET PO (22:51)
[2022-11-01 23:00] LABS: Procalcitonin 0.35 ng/mL (0.00-0.09)
[2022-11-01 23:43] LABS: Troponin-I HS 15 pg/mL (3.0-78.0)
[2022-11-02] VITALS (33 sets, daily range): BP systolic 80–122; BP diastolic 49–80; PULSE 64–110; RESP 16–22; TEMP 36.9–37.5; O2SAT 90–98; BMI 28.3
[2022-11-02] MEDS: Furosemide 40 MG/4 ML Vial IV ×2 (01:00→21:04)
[2022-11-02] MEDS: 0.9% Saline Lock 10 ML Syringe IV ×2 (01:08→09:52)
[2022-11-02 02:19] LABS: Absolute Lymphocyte Count 0.51 X10^3/uL (0.83-4.51); Absolute Neutrophil Count 6.6 X10^3/uL (2.0-7.7); Basophil# 0.01 X10^3/uL; Basophil% 0.1 % (0-1); Eosinophil# 0.06 X10^3/uL; Eosinophils% 0.8 % (0-5); Hematocrit 23.7 % (40-54); Lymphocyte # 0.51 X10^3/ul (0.83-4.51); Lymphocyte % 6.7 % (19-41); Mean Corp Hgb Conc 29.5 g/dL (32-36); Mean Corpuscular Hgb 26.3 pg (27.0-32.0); Mean Corpuscular Volume 89.1 fL (80-94); Mean Platelet Vol. 8.9 fl (6.2-12.0); Monocyte# 0.33 X10^3/uL; Monocyte% 4.4 % (0-10); NRBC Flagged by Analyzer 0 % (0-5); Neutrophil % 87.2 % (47-70); POSITIVE DIFFERENTIAL YES; Platelet Count 193 K/mm3 (150-450); RBC Distribution Width CV 16.2 % (11.6-14.6); RBC Distribution Width SD 52.9 fl (35.1-43.9); Red Blood Count 2.66 M/mm3 (4.6-6.2); White Blood Count 7.6 K/mm3 (4.4-11.0)
[2022-11-02 02:24] LABS: Differential Indicated SCAN CRITERIA MET
[2022-11-02 02:36] LABS: Troponin-I HS 16 pg/mL (3.0-78.0)
[2022-11-02 02:41] LABS: Differential Comment SCANNED
[2022-11-02 02:46] LABS: ALB/GLOB Ratio 0.6 RATIO (0.9-2.4); AST(SGOT) 20 U/L (15-37); Alanine Aminotransfer ALT/SGPT 23 U/L (16-61); Albumin, Serum 2.9 g/dL (3.2-5.0); Alkaline Phosphatase 82 U/L (45-117); Anion Gap 5 (5-15); BUN 19 mg/dL (7-18); BUN/Creat Ratio 13.7 RATIO (10-20); Calcium,Total 8.8 mg/dL (8.5-10.1); Chloride 104 mmol/L (98-107); Creatinine, Serum 1.39 mg/dL (0.70-1.30); EST Glomerular Filtration Rate 52 mL/min (>60); Est Glom Filt Rate - Afr Amer 63 mL/min (>60); Estimated Creatinine Clearance 41.01 ml/min; Globulin 4.6 g/dL (2.2-4.2); Glucose 112 mg/dL (74-106); Magnesium 2.3 mg/dL (1.6-2.6); Phosphorus 2.9 mg/dL (2.5-4.9); Potassium 3.9 mmol/L (3.5-5.1); Protein, Total 7.5 g/dL (6.4-8.2); Sodium Level 138 mmol/L (136-145); Thyroid Stim Hormone (TSH) 0.78 uIU/mL (0.358-3.74)
--- NOTE | 2022-11-02 03:35 | PCM.HOSP.N ---
Hospitalist Note Negative Hemoccult however hemoglobin has dropped to 7 this morning. We will hold anticoagulation for now and place SCDs. Repeat hemoglobin at 7 AM for stability. Consult GI for consideration of EGD. N.p.o. I did obtain liver functions to rule out hemolysis and patient has normal bilirubin
[2022-11-02] MEDS: Benzonatate 100 MG Capsule PO (03:54)
[2022-11-02] MEDS: Amiodarone 360 MG in Dextrose 5% Viaflo Bag 192.8 ML 16.7 MG CONT INF ×2 (04:54→18:31)
[2022-11-02 05:33] LABS: Bacteria 0 SEEN /hpf (None Seen); Mucous, Urine 0 SEEN /hpf (<or=2+); Red Blood Cells-Urine 0 SEEN /hpf (0-5); Squamous Epithelial Cells - UA 0 SEEN /hpf (0-5); White Blood Cells 0 SEEN /hpf (0-5)
[2022-11-02 05:35] LABS: Color, Urine Yellow (Yellow); Glucose, Dipstick Normal (Normal); Ketone-Dipstick Negative (Negative); Leukocyte Esterase-Dipstick Negative /ul (Negative); Nitrite-Dipstick Negative (Negative); Occult Blood-Urine Negative /ul (Negative); Protein-Dipstick Negative (Negative); Urine Bilirubin Dipstick Negative (Negative); Urine Clarity Clear (Clear); Urine Urobilinogen Normal (Normal)
[2022-11-02 07:54] LABS: Hemoglobin 6.7 g/dL (13.0-16.5)
--- NOTE | 2022-11-02 08:27 | CON.PCM.GI_ITS ---
HPI Consult Data Date of Consult: 11/02/22 HPI Narrative Reason for Consultation: anemia and gi bleed HPI Narrative: DAYA HOLDEN, is a 82 M who presented to the emergency department with intermittent abdominal pain. They were traveling several weeks ago in early to mid September and were in [place]. The day they were supposed to leave it sounds like the patient developed rigors but he was able to make it home and since that point time he has had fatigue, right-sided low back pain and has had intermittent bouts of A-fib with RVR. He has a history of A-fib with RVR. Per the he experienced it after his heart surgery several years ago. He had been on amiodarone but this was discontinued by cardiology. He had some epigastric pain earlier today but it since resolved. He has had no melena, hematochezia, hematemesis or coffee-ground emesis. And no recent hospitalizations. They said they have called cardiology office several times but have not been able to obtain an appointment. His back pain is off to the right side and the right flank to right upper pelvic area Vital signs on presentation showed temperature of 99.1, heart rate was 160, blood pressure was 118/86, respiratory rate was 18 and oxygen saturations were 96% on room air. He was given some metoprolol on his blood pressures dropped to 98/83. It did improve his heart rate some but he was still between 100-120. His CBC shows a normal white count however he does have a left shift with an 88.4% neutrophilia. His hemoglobin was 7.5 and his platelet count was 167,000. His BMP showed normal electrolytes with an elevated BUN at 19 and a serum cre atinine of 1.46 which appears to be elevated from his baseline. [facility] Medical History Aortic aneurysm Asthma Atherosclerotic heart disease of [place] coronary artery without angina pectoris BPH (benign prostatic hyperplasia) History of echocardiogram (~12/2015) History of left common carotid artery stent placement (~09/27/20) Non-rheumatic mitral regurgitation Non-rheumatic tricuspid valve insufficiency Nonrheumatic mitral (valve) prolapse PARKER (obstructive sleep apnea) Postoperative atrial fibrillation Pure hypercholesterolemia Thoracic aortic aneurysm without rupture Home Medications aspirin 81 mg tablet,delayed release 81 mg PO QDAY 03/11/17 [History Last Taken Unknown] famotidine 20 mg tablet 40 mg PO QHS 06/21/19 [History Last Taken Unknown] ascorbic acid (vitamin C) 1,000 mg tablet 1 gm PO DAILY 06/26/20 [History Last Taken Unknown] cholecalciferol (vitamin D3) 25 mcg (1,000 unit) tablet 25 mcg PO BID 10/13/20 [History Last Taken Unknown] acetaminophen 325 mg tablet 650 mg PO Q6H PRN pain 10/20/20 [History Last Taken Unknown] losartan 50 mg tablet 50 mg PO DAILY #90 tabs 11/28/20 [Rx Last Taken Unknown] amlodipine 10 mg tablet 10 mg PO DAILY #90 tabs 01/17/22 [Rx Last Taken Unknown] cyanocobalamin (vitamin B-12) 1,000 mcg tablet 1,000 mcg PO DAILY 01/17/22 [History Last Taken Unknown] magnesium 200 mg tablet 200 mg PO DAILY 01/17/22 [History Last Taken Unknown] tamsulosin 0.4 mg capsule 0.4 mg PO QHS 01/17/22 [History Last Taken Unknown] zinc acetate 25 mg (zinc) capsule 25 mg PO DAILY 01/17/22 [History Last Taken Unknown] ezetimibe 10 mg tablet (Zetia) 10 mg PO DAILY #90 tabs 01/30/22 [Rx Last Taken Unknown] coenzyme Q10 100 mg capsule 100 mg PO DAILY 07/22/22 [History Last Taken Unknown] metoprolol tartrate 50 mg tablet 50 mg PO BID #180 tabs 09/02/22 [Rx Last Taken Unknown] furosemide 40 mg tablet See Rx Instructions .Route .COMPLEX #90 tabs 10/16/22 [Rx Last Taken Unknown] potassium chloride 20 mEq tablet,extended release 20 meq PO DAILY #90 tabs 10/16/22 [Rx Last Taken Unknown] apixaban 5 mg tablet (Eliquis) 5 mg PO BID #60 tabs 10/28/22 [Rx Last Taken Unknown] Allergy/AdvReac Type Severity Reaction Status Date / Time Lnalsoe-RGK-GvB Reductase AdvReac Severe intolerence Verified 11/01/22 19:05 Inhibitor [Fcrssap-Gsi-Dff Reductase Inhibitor] hydrochlorothiazide AdvReac Intermediate unknown Verified 11/01/22 19:05 red yeast rice AdvReac Intermediate unknown Verified 11/01/22 19:05 Family History Mother Hypertension Father CAD (coronary artery disease) Hypertension Grandmother CAD (coronary artery disease) Surgical History H/O hemorrhoidectomy History of aortic valve replacement with bioprosthetic valve (~09/27/20) History of cardiac catheterization (~03/2003) History of tricuspid valve repair (~09/27/20) Hx of ascending aorta replacement (~09/27/20) Social History Smoking Status: Never smoker alcohol intake: never substance use type: does not use caffeine: Yes Type: coffee Number of servings: 5 ROS Constitutional Constitutional: Reports fatigue and weakness; Denies anorexia, change in weight, chills, fever(s), malaise, night sweats or other Eyes Eyes: Denies blurry vision, change in eye color, change in vision, discharge from eye(s), double vision, erythema, eye pain, loss of vision or other ENT HEENT: Denies abnormal hearing, dysphagia, ear pain, epistaxis, headache(s), hearing loss, nasal congestion, nasal discharge, post nasal drip, sinus pressure, sore throat or other Cardiovascular Cardiovascular: Reports rapid heart rate; Denies chest pain, claudication, dyspnea on exertion, edema, lightheadedness, orthopnea, palpitations, paroxysmal nocturnal dyspnea, syncope or other Respiratory/Chest Respiratory/Chest: Reports shortness of breath with exertion Gastrointestinal Gastrointestinal: Reports diarrhea and dyspepsia Genitourinary Genitourinary: Denies burning urination, difficulty urinating, dysuria, hematuria, nocturia, urinary frequency, urinary hesitancy, urinary incontinence, urinary urgency or other Musculoskeletal Musculoskeletal: Reports back pain; Denies arthralgias, joint pain, joint stiff ness, joint swelling, myalgias, neck pain or other Neurologic Neurologic: Denies abnormal gait, abnormal speech, confusion, disequilibrium, dizziness, focal weakness, headache(s), numbness, paresthesias, seizure-like activity, seizures, syncope, tingling, tremor(s) or other Psychiatric Psychiatric: Denies anxiety, depression, homicidal ideation, suicidal ideation or other Endocrine Endocrinology: Denies change in body appearance, cold intolerance, excessive sweating, heat intolerance, polydipsia, polyuria or other Allergic/Immunologic Allergic/Immunologic: Denies rhinitis, hives, eczemia, asthma or other Physical Exam Narrative GENERAL: cooperative HEENT: Atraumatic; normocephalic EYES; Anicteric, Normal Conjunctiva NECK; supple, normal thyroid, RESPIRATORY: Diminished to auscultation CARDIOVASCULAR: Regular S1 S2, GI: soft, normoactive bowel sounds, : No Renal angle tenderness; EXTREMITIES: No edema, no clubbing, MUSCULOSKELETAL: no muscle wasting NEURO: Awake; no lateralizing signs. SKIN: No Rash PSYCH; Flat affect Lab / Micro Data 11/03/22 06:22 11/03/22 06:22 Labs: Laboratory Results - last 24 hr 11/02/22 11:50: Troponin I High Sens 12, Blood Type O POSITIVE, Antibody Screen NEGATIVE, Crossmatch See Detail 11/03/22 06:22: WBC 8.7, RBC 3.08 L, Hgb 8.3 L, Hct 26.5 L, MCV 86.0, MCH 26.9 L , MCHC 31.3 L D, RDW Std Deviation 49.6 H, RDW Coeff of Duyen 15.8 H, Plt Count 186, MPV 8.5, Immature Gran % (Auto) 0.500, Neut % (Auto) 84.7 H, Lymph % (Auto) 8.0 L, Morgan % (Auto) 5.2, Eos % (Auto) 1.4, Baso % (Auto) 0.2, Absolute Neuts (a uto) 7.3, Absolute Lymphs (auto) 0.69 L, Nucleated RBC % 0, Sodium 135 L, Potassium 3.3 L, Chloride 100, Carbon Dioxide 29.0, Anion Gap 6, BUN 17, Creatinine 1.19, Estim Creat Clear Calc 47.90, Est GFR (MDRD) Af Amer 76, Est GFR (MDRD) Non-Af 62, BUN/Creatinine Ratio 14.3, Glucose 109 H, Calcium 8.2 L Micro: Microbiology 11/02/22 01:55 Blood Culture (Wb) - Anticubital Left Bacteria Detection (PCR) - Preliminary Strep not Strep pneumo 11/02/22 01:55 Blood Culture (Wb) - Anticubital Left Blood Culture - Preliminary 11/02/22 02:08 Blood Culture (Wb) - Anticubital Left Blood Culture - Preliminary 11/02/22 05:40 Mucosa - Nasopharyngeal Respiratory Panel (PCR) - Final 11/02/22 03:50 Nasal Secretion SARS-CoV-2 Antigen (Rapid) - Final Radiology Impression Echocardiogram 11/01/22 22:07 Interpretation Summary The left ventricular ejection fraction is 50 %. The left atrium is severely enlarged. The right atrium is moderately enlarged. Moderate (2+) mitral valve insufficiency. Ordering Physician: Emma Medina Referring Physician: FABRIZIO Performed By: Sheila Sahu RCS Assessment & Plan Assessment/Plan (1) Acute on chronic anemia: (2) Acute hypotension: (3) Atrial fibrillation with RVR: (4) Acute right-sided low back pain: (5) Anticoagulant long-term use: (6) Elevated serum creatinine: (7) Weakness: (8) Fatigue: QUALIFIERS: Fatigue type: chronic, unspecified Qualified Code(s): R53.82 - Chronic fatigue, unspecified PLAN: Plan Acute on chronic anemia -Baseline hemoglobin appears to be running between 9 and 10 -Was 9.7 on 10/05/2022 but now 7.5 -Check iron studies -Guaiac stool pending -Check liver panel for signs of hemolysis -Patient has been holding his diuretics so it theoretically could be dilutional -We will utilize IV PPI twice daily dosing for now and if guaiac positive will consult GI and hold apixaban -Check every 6 hours H&H -Recommend to hold apixaban -He should undergo an upper endoscopy to evaluate his upper GI tract due to his increased BUN to creatinine ratio and decrease in hemoglobin with the need for anticoagulation due to his recurrent paroxysmal atrial fibrillation. He was explained alternatives, risk, benefits include not withstanding bleeding, infection, sepsis, perforation, need for emergent surgery . Have an ASA of 3.
--- NOTE | 2022-11-02 08:31 | PN.HOSP_ITS ---
Reason for Visit Reason for Visit: Diagnoses Anemia, unspecified (11/01/22) Unspecified atrial fibrillation (11/01/22) Hypotension, unspecified (11/01/22) Low back pain, unspecified (11/01/22) Weakness (11/01/22) Other fatigue (11/01/22) Other specified abnormal findings of blood chemistry (11/01/22) manager terminal (current) use of anticoagulants (11/01/22) Subjective Subjective Patient is an 82-year-old gentleman with history of paroxysmal A-fib on systemic anticoagulation who presented with fatigue, r right flank pain. Patient was found to be in A-fib with RVR. Was also found to be anemic was apparently hypotensive admitted to a monitored bed. Consult placed to GI Objective Data Objective Data Vital Signs: Vital Signs Temp Pulse Resp BP Pulse Ox O2 Del Method 99.4 F H 74 20 H 93/63 94 Room Air 11/02/22 04:33 11/02/22 06:00 11/02/22 06:00 11/02/22 06:00 11/02/22 06:00 11/02/22 06:00 Oxygen Delivery Method Room Air Weight: 84.6 kg Body Mass Index (BMI) 28.3 Intake & Output: Intake and Output for Last 24 Hours 10/31/22 11/01/22 11/02/22 23:59 23:59 23:59 Intake Total 130.21 / 146.86 301.16 / 301.16 Output Total 150 / 150 Balance 130.21 / 146.86 151.16 / 151.16 Lab / Micro Data 11/02/22 07:40 11/02/22 01:55 Labs: Laboratory Results - last 24 hr 11/01/22 19:00: WBC 6.1, RBC 2.80 L, Hgb 7.5 L, Hct 24.8 L, MCV 88.6, MCH 26.8 L , MCHC 30.2 L, RDW Std Deviation 52.3 H, RDW Coeff of Duyen 16.0 H, Plt Count 167, MPV 8.2, Immature Gran % (Auto) 0.500, Neut % (Auto) 88.4 H, Lymph % (Auto) 6.1 L, Bulloch % (Auto) 4.1, Eos % (Auto) 0.7, Baso % (Auto) 0.2, Absolute Neuts (auto) 5.4, Absolute Lymphs (auto) 0.37 L, Nucleated RBC % 0, Differential Comment SCANNED, Sodium 139, Potassium 4.3, Chloride 106, Carbon Dioxide 29.0, Anion Gap 4 L, BUN 19 H, Creatinine 1.46 H, Estim Creat Clear Calc 39.04, Est GFR (MDRD) Af Amer 60, Est GFR (MDRD) Non-Af 49 L, BUN/Creatinine Ratio 13.0, Glucose 142 H , Calcium 9.0, Iron 22 L, TIBC 205 L, Iron Saturation 10.7 L, Troponin I High Sens 14 11/01/22 21:58: Hgb 7.3 L, ESR 19, Total Bilirubin 0.60, Direct Bilirubin 0.22, AST 21, ALT 23, Alkaline Phosphatase 85, Troponin I High Sens 15, C-React Prot Ext Range 77.40 H, Total Protein 7.5, Albumin 2.9 L, Globulin 4.6 H, Procalcit onin 0.35 H 11/02/22 01:55: WBC 7.6, RBC 2.66 L, Hgb 7.0 L, Hct 23.7 L, MCV 89.1, MCH 26.3 L , MCHC 29.5 L, RDW Std Deviation 52.9 H, RDW Coeff of Duyen 16.2 H, Plt Count 193, MPV 8.9, Immature Gran % (Auto) 0.800, Neut % (Auto) 87.2 H, Lymph % (Auto) 6.7 L, Bulloch % (Auto) 4.4, Eos % (Auto) 0.8, Baso % (Auto) 0.1, Absolute Neuts (auto) 6.6, Absolute Lymphs (auto) 0.51 L, Nucleated RBC % 0, Differential Comment SCANNED, Sodium 138, Potassium 3.9, Chloride 104, Carbon Dioxide 29.0, Anion Gap 5, BUN 19 H, Creatinine 1.39 H, Estim Creat Clear Calc 41.01, Est GFR (MDRD) Af Amer 63, Est GFR (MDRD) Non-Af 52 L, BUN/Creatinine Ratio 13.7, Glucose 112 H, Calcium 8.8, Phosphorus 2.9, Magnesium 2.3, Total Bilirubin 0.70, AST 20, ALT 23, Alkaline Phosphatase 82, Troponin I High Sens 16, Total Protein 7.5, Albumin 2.9 L, Globulin 4.6 H, Albumin/Globulin Ratio 0.6 L, TSH 0.78 11/02/22 05:20: Urine Color Yellow, Urine Clarity Clear, Urine pH 6.0, Ur Specific Tenino 1.010, Urine Protein Negative, Urine Glucose (UA) Normal, Urine Ketones Negative, Urine Occult Blood Negative, Urine Nitrite Negative, Urine Bilirubin Negative, Urine Urobilinogen Normal, Ur Leukocyte Esterase Negative, Urine RBC 0 SEEN, Urine WBC 0 SEEN, Ur Squamous Epith Cells 0 SEEN, Urine Bacteria 0 SEEN, Urine Mucus 0 SEEN 11/02/22 07:40: Hgb 6.7 L Micro: Microbiology 11/02/22 03:50 Nasal Secretion SARS-CoV-2 Antigen (Rapid) - Final 11/01/22 19:45 Stool Stool Occult Blood (DEB) - Final Radiography Diagnostic Testing: Radiology Impression Chest X-Ray 11/01/22 19:04 IMPRESSION: No active disease. Electronically Signed: Rafiq Barrow MD at 19:14 EDT Reading Location ID and State: [employer] Tel , Service support , Abdomen/Pelvis CT 11/01/22 20:04 IMPRESSION: 1. No renal or ureteral stone. 2. Large right renal cyst. 3. Sigmoid diverticulosis without diverticulitis. Electronically Signed: Rafiq Barrow MD at 21:20 EDT Reading Location ID and State: [employer] Tel , Service support , Physical Exam Narrative GENERAL: cooperative HEENT: Atraumatic; normocephalic EYES; Anicteric, Normal Conjunctiva NECK; supple, normal thyroid, RESPIRATORY: Diminished to auscultation CARDIOVASCULAR: Regular S1 S2, GI: soft, normoactive bowel sounds, : No Renal angle tenderness; EXTREMITIES: No edema, no clubbing, MUSCULOSKELETAL: no muscle wasting NEURO: Awake; no lateralizing signs. SKIN: No Rash PSYCH; Flat affect Assessment & Plan Assessment/Plan (1) Acute hypotension: (2) Atrial fibrillation with RVR: (3) Elevated serum creatinine: PLAN: Plan Patient is an 82-year-old gentleman with history of paroxysmal A-fib on systemic anticoagulation who presented with fatigue, r right flank pain. Patient was found to be in A-fib with RVR. Was also found to be anemic was apparently hypotensive admitted to a monitored bed. Consult placed to GI 1. Symptomatic anemia secondary to suspected chronic blood loss ? Patient was found to be guaiac positive. Systemic anticoagulation with apixaban. Held kept n.p.o. consult placed to GI for possible endoscopic eval. Subsequently monitoring H&H with orders given for transfusion for hemoglobin less than 7 patient did receive 2 unit blood transfusion 2. Paroxysmal A-fib with RVR ? Patient is on metoprolol continue with Eliquis was held given patient's significant anemia 3. Acute hypotension ? Resuscitated with IV fluid 4. Acute renal insufficiency ? Patient is on IV fluid with subsequent monitoring of electrolyte 5. Valvular heart disease ? With history of aortic valve replacement in 2003,, with history of tricuspid valve repair, 6. History of ascending aorta replacement ? On 09/27/2021 at [facility] 7. Carotid artery disease with carotid artery stent ? 2020 at [facility] 8. Paroxysmal A-fib ? Albuterol as needed 9. BPH Patient is on Flomax 10. Obstructive sleep apnea ? Consistent use of CPAP encouraged 11. Essential hypertension ? Patient antihypertensives on hold given his low blood pressure 12. Dyslipidemia ? Patient is on Zetia apparently allergic to statins 13. Vitamin D deficiency ? Patient is on vitamin D supplement 14. GERD ? Patient is on PPI continue 15. DVT prophylaxis ? Chemoprophylaxis contraindicated given patient low hemoglobin level SCD is encouraged Time spent in the patient's overall evaluation,decision-making process, review of diagnostic data, adjustment of management, discussion with other providers, nursing nursing and ancillary staff involved in patient's care documentation, 50 Minutes Charges/Coding Visit Charges Inpatient E&M: 34083 Subs Hosp L3
--- NOTE | 2022-11-02 11:05 | CASEMGMT ---
ALEXANDRA PICKERING DC Planning Assessment: Face to Face with patient for initial transition planning/care coordination assessment. ALEXANDRA PICKERING introduced self and role at [facility], pt alert, answering questions appropriately, voices understanding, and is agreeable to participating in assessment.? Care providers, pharmacy,?and demographics verified. ? Admitting dx: Afib rvr, anemia PCP: Danette Specialists: [facility] Preferred Pharmacy: [facility] (until ) Insurance: [facility] A/B, [employer] Prescription Benefit:?yes LNOK: Lauryn Living Arrangements: Pt lives with his in a single story home with two step to enter. Pt denies any issues with these steps. Pt states their son also lives in the basement. Pt states he is independent with ADLs including self care and household tasks. 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 Transportation: pt drives and spouse also drives DME: comfort height toilet, grab bars, CPAP from [facility] HHC/SNF: denies ? Plan: Return home with the support of family. Pt denies any discharge needs at this time. Pt states he has been on Eliquis prior to admission and denies any concerns with the cost of this medication. Pedro Aguirre RN CM
[2022-11-02] MEDS: Cyanocobalamin 500 MCG Tablet 1000 MCG PO (12:05)
[2022-11-02] MEDS: Metoprolol Tartrate 50 MG Tablet PO ×2 (12:05→22:59)
[2022-11-02] MEDS: Ezetimibe 10 MG Tablet PO (12:06)
[2022-11-02] MEDS: Cholecalciferol (VIT D3) 25 MCG TABLET (1,000 UNITS) PO ×2 (12:06→21:30)
[2022-11-02] MEDS: Ascorbic Acid 500 MG Tablet 1000 MG PO (12:06)
[2022-11-02 12:42] LABS: Troponin-I HS 12 pg/mL (3.0-78.0)
[2022-11-02] MEDS: Tamsulosin HCl 0.4 MG Capsule PO (21:30)
[2022-11-02] MEDS: Amiodarone 200 MG Tablet PO (22:59)
[2022-11-03] VITALS (17 sets, daily range): BP systolic 92–132; BP diastolic 70–84; PULSE 69–78; RESP 12–23; TEMP 36.1–36.7; O2SAT 92–97; BMI 28.3; BMI 28.1
--- NOTE | 2022-11-03 06:40 | EGD_PTH ---
PATIENT: DAYA HOLDEN Jr. LOC: [facility] U#:[id number] AGE/SX: 82/M ROOM: [facility] RE11/01/[address]: Dr. Harshal Mtz DO : 1940 BED: 1 DIS: 11/05/2022 SPEC #: [id number] RECD: 11/04/22 08:14 STATUS: ROBINSON WILKERSON #: [id number] LUIS: 11/03/22 06:[address]: Darryl Pimentel DEPT: SURGICAL PATHOLOGY RECD BY: Stormy Trotter ENTERED: 11/04/22 11:14 SP TYPE: EGD BIOPSY OTHR DR: MD Dr. Jarek Delgado MD Dr. Kathryn Lee, DO Dr. Mark Tereletsky, DO Dr. Robert Leininger, MD Tissues: COLON BIOPSY Procedures: Special Stain Group I Surgery Specimen Level IV GMS Stain (control) Comments: @ Ordering doctor for SUIV edited from to @ by ONEL at 11/05/22817 @ Submitting doctor edited from to @ by ANTOINETTEOD at 11/05/22817 HEADER OPERATION: EGD, bipolar electrohemostasis, biopsy PRE-OP DIAGNOSIS: GI bleed TISSUE SUBMITTED: Random biopsy MICROSCOPIC DIAGNOSIS Random biopsy: Fragments of squamous epithelium with fungal organisms (yeast and pseudohyphae) consistent with Angi species. See comment. DEJUAN:martina 11/05/2022 COMMENT Fungal stain with matched control is used in the evaluation of the specimen. MICROSCOPIC DESCRIPTION Slides are reviewed. GROSS DESCRIPTION Received in fixative is one container labeled with the patient's name and designated random biopsy. The specimen consists of multiple irregular fragments of light coleman soft tissue that in aggregate measure 0.3 x 0.3 x 0.1 cm. The specimen is totally submitted in one cassette. / SJ:martina 11/04/2022 TC:5 CPT: 88076, 08903
[2022-11-03 06:54] LABS: Absolute Lymphocyte Count 0.69 X10^3/uL (0.83-4.51); Absolute Neutrophil Count 7.3 X10^3/uL (2.0-7.7); Basophil# 0.02 X10^3/uL; Basophil% 0.2 % (0-1); Eosinophil# 0.12 X10^3/uL; Eosinophils% 1.4 % (0-5); Hematocrit 26.5 % (40-54); Hemoglobin 8.3 g/dL (13.0-16.5); Lymphocyte # 0.69 X10^3/ul (0.83-4.51); Mean Corp Hgb Conc 31.3 g/dL (32-36); Mean Corpuscular Hgb 26.9 pg (27.0-32.0); Mean Platelet Vol. 8.5 fl (6.2-12.0); Monocyte# 0.45 X10^3/uL; Monocyte% 5.2 % (0-10); NRBC Flagged by Analyzer 0 % (0-5); Neutrophil # 7.34 X10^3/uL (2.7-7.7); Neutrophil % 84.7 % (47-70); Platelet Count 186 K/mm3 (150-450); RBC Distribution Width CV 15.8 % (11.6-14.6); RBC Distribution Width SD 49.6 fl (35.1-43.9); Red Blood Count 3.08 M/mm3 (4.6-6.2); White Blood Count 8.7 K/mm3 (4.4-11.0)
[2022-11-03 07:21] LABS: Anion Gap 6 (5-15); BUN 17 mg/dL (7-18); BUN/Creat Ratio 14.3 RATIO (10-20); Calcium,Total 8.2 mg/dL (8.5-10.1); Chloride 100 mmol/L (98-107); Creatinine, Serum 1.19 mg/dL (0.70-1.30); EST Glomerular Filtration Rate 62 mL/min (>60); Est Glom Filt Rate - Afr Amer 76 mL/min (>60); Glucose 109 mg/dL (74-106); Potassium 3.3 mmol/L (3.5-5.1); Sodium Level 135 mmol/L (136-145)
--- NOTE | 2022-11-03 07:53 | PCM.PN.HOSP ---
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/01/22) Objective Data Objective Data Vital Signs: Vital Signs Temp Pulse Resp BP Pulse Ox O2 Del Method 98.0 F 70 13 92/70 96 Room Air 11/03/22 05:00 11/03/22 06:00 11/03/22 06:00 11/03/22 06:00 11/03/22 06:00 11/03/22 06:00 Oxygen Delivery Method Room Air Weight: 84 kg Body Mass Index (BMI) 28.1 Intake & Output: Intake and Output for Last 24 Hours 11/01/22 11/02/22 11/03/22 23:59 23:59 23:59 Intake Total 130.21 / 146.86 2227.66 / 2484.36 364.97 / 364.97 Output Total 475 / 1125 1450 / 1450 Balance 130.21 / 146.86 1752.66 / 1359.36 -1085.03 / -1085.03 Lab / Micro Data 11/03/22 06:22 11/03/22 06:22 Labs: Laboratory Results - last 24 hr 11/02/22 07:40: Hgb 6.7 L 11/02/22 11:50: Troponin I High Sens 12, Blood Type O POSITIVE, Antibody Screen NEGATIVE, Crossmatch See Detail 11/03/22 06:22: WBC 8.7, RBC 3.08 L, Hgb 8.3 L, Hct 26.5 L, MCV 86.0, MCH 26.9 L, MCHC 31.3 L D, RDW Std Deviation 49.6 H, RDW Coeff of Duyen 15.8 H, Plt Count 186, MPV 8.5, Immature Gran % (Auto) 0.500, Neut % (Auto) 84.7 H, Lymph % (Auto) 8.0 L, Stanton % (Auto) 5.2, Eos % (Auto) 1.4, Baso % (Auto) 0.2, Absolute Neuts (auto) 7.3, Absolute Lymphs (auto) 0.69 L, Nucleated RBC % 0, Sodium 135 L, Potassium 3.3 L, Chloride 100, Carbon Dioxide 29.0, Anion Gap 6, BUN 17, Creatinine 1.19, Estim Creat Clear Calc 47.90, Est GFR (MDRD) Af Amer 76, Est GFR (MDRD) Non-Af 62, BUN/Creatinine Ratio 14.3, Glucose 109 H, Calcium 8.2 L Micro: Microbiology 11/02/22 01:55 Blood Culture (Wb) - Anticubital Left Bacteria Detection (PCR) - Preliminary Strep not Strep pneumo 11/02/22 01:55 Blood Culture (Wb) - Anticubital Left Blood Culture - Preliminary 11/02/22 02:08 Blood Culture (Wb) - Anticubital Left Blood Culture - Preliminary 11/02/22 05:40 Mucosa - Nasopharyngeal Respiratory Panel (PCR) - Final 11/02/22 03:50 Nasal Secretion SARS-CoV-2 Antigen (Rapid) - Final 11/01/22 19:45 Stool Stool Occult Blood (DEB) - Final Radiography Diagnostic Testing: Radiology Impression Echocardiogram 11/01/22 22:07 Interpretation Summary The left ventricular ejection fraction is 50 %. The left atrium is severely enlarged. The right atrium is moderately enlarged. Moderate (2+) mitral valve insufficiency. Ordering Physician: Emma Medina Referring Physician: FABRIZIO Performed By: Sheila Sahu RCS Physical Exam Narrative GENERAL: cooperative HEENT: Atraumatic; normocephalic EYES; Anicteric, Normal Conjunctiva NECK; supple, normal thyroid, RESPIRATORY: Diminished to auscultation CARDIOVASCULAR: Regular S1 S2, GI: soft, normoactive bowel sounds, : No Renal angle tenderness; EXTREMITIES: No edema, no clubbing, MUSCULOSKELETAL: no muscle wasting NEURO: Awake; no lateralizing signs. SKIN: No Rash PSYCH; Flat affect Assessment & Plan Assessment/Plan (1) Acute hypotension: (2) Atrial fibrillation with RVR: (3) Elevated serum creatinine: PLAN: Plan Patient is an 82-year-old gentleman with history of paroxysmal A-fib on systemic anticoagulation who presented with fatigue, r right flank pain. Patient was found to be in A-fib with RVR. Was also found to be anemic was apparently hypotensive admitted to a monitored bed. Consult placed to GI 1. Symptomatic anemia secondary to suspected chronic blood loss ? Patient was found to be guaiac positive. Systemic anticoagulation with apixaban. Held kept n.p.o. consult placed to GI for possible endoscopic eval. Subsequently monitoring H&H with orders given for transfusion for hemoglobin less than 7 patient did receive 2 unit blood transfusion -11/03/2022; patient underwent EGD this a.m. findings included recommendations by Dr. Pimentel as below Findings - Esophageal plaques were found, suspicious for candidiasis. Biopsied. 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 Treated with a heater probe. - Normal second portion of the duodenum. Recommendations : - Return patient to [facility] for ongoing care. - Resume previous diet. - Use Protonix (pantoprazole) 40 mg PO daily. - Nystatin suspension 100,000 units PO QID for 1 week. - Continue present medications. 2. Paroxysmal A-fib with RVR ? Patient is on metoprolol continue with Eliquis was held given patient's significant anemia 3. Acute hypotension ? Resuscitated with IV fluid 4. Acute renal insufficiency ? Patient is on IV fluid with subsequent monitoring of electrolyte 5. Valvular heart disease ? With history of aortic valve replacement in 2003,, with history of tricuspid valve repair, 6. History of ascending aorta replacement ? On 09/27/2021 at [facility] 7. Carotid artery disease with carotid artery stent ? 2020 at [facility] 8. Paroxysmal A-fib ? Albuterol as needed 9. BPH Patient is on Flomax 10. Obstructive sleep apnea ? Consistent use of CPAP encouraged 11. Essential hypertension ? Patient antihypertensives on hold given his low blood pressure 12. Dyslipidemia ? Patient is on Zetia apparently allergic to statins 13. Vitamin D deficiency ? Patient is on vitamin D supplement 14. GERD ? Patient is on PPI continue 15. DVT prophylaxis ? Chemoprophylaxis contraindicated given patient low hemoglobin level SCD applied Time spent in the patient's overall evaluation,decision-making process, review of diagnostic data, adjustment of management, discussion with other providers, nursing nursing and ancillary staff involved in patient's care documentation, 50 Minutes Charges/Coding Visit Charges Inpatient E&M: 45357 Subs Hosp L3
--- NOTE | 2022-11-03 09:08 | OP.EGD_ITS ---
Patient Name: Dagoberto Baxter Procedure Date: 11/03/2022 8:27 AM Date of : 1940 Age: 82 Procedure: Upper GI endoscopy Indications: Epigastric abdominal pain Providers: Darryl Pimentel DO Medicines: Monitored Anesthesia Care Patient Profile: This is an 82 year old male. Refer to note in patient chart for documentation of history and physical. Patient has symptoms of acute epigastric abdominal pain. Complications: No immediate complications. Procedure: Pre-Anesthesia Assessment: - Prior to the procedure, a History and Physical was performed, and patient medications and allergies were reviewed. The patient is competent. The risks and benefits of the procedure and the sedation options and risks were discussed with the patient. All questions were answered and informed consent was obtained. Patient identification and proposed procedure were verified by the physician in the pre-procedure area. Mental Status Examination: alert and oriented. Airway Examination: normal oropharyngeal airway and neck mobility. Respiratory Examination: clear to auscultation. CV Examination: normal. Prophylactic Antibiotics: The patient does not require prophylactic antibiotics. Prior Anticoagulants: The patient has taken no anticoagulant or antiplatelet agents. After reviewing the risks and benefits, the patient was deemed in satisfactory condition to undergo the procedure. The anesthesia plan was to use monitored anesthesia care (MAC). Immediately prior to administration of medications, the patient was re-assessed for adequacy to receive sedatives. The heart rate, respiratory rate, oxygen saturations, blood pressure, adequacy of pulmonary ventilation, and response to care were monitored throughout the procedure. The physical status of the patient was re-assessed after the procedure. After obtaining informed consent, the endoscope was passed under direct vision. Throughout the procedure, the patient's blood pressure, pulse, and oxygen saturations were monitored continuously. The Endoscope was introduced through the mouth, and advanced to the second part of duodenum. The upper GI endoscopy was accomplished without difficulty. The patient tolerated the procedure well. Scope In: 8:45:18 AM Scope Out: 8:49:32 AM Total Procedure Duration Time 0 hours 4 minutes 14 seconds Findings: Patchy, white plaques were found in the middle third of the esophagus and in the lower third of the esophagus. Biopsies were taken with a cold forceps for histology. Verification of patient identification for the specimen was done. Estimated blood loss was minimal. Three 5 mm angiodysplastic lesions with bleeding were found in the stomach. Coagulation for hemostasis using heater probe was successful. Estimated blood loss was minimal. The second portion of the duodenum was normal. Impression: - Esophageal plaques were found, suspicious for candidiasis. Biopsied. 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 Treated with a heater probe. - Normal second portion of the duodenum. Recommendation: - Return patient to [facility] for ongoing care. - Resume previous diet. - Use Protonix (pantoprazole) 40 mg PO daily. - Nystatin suspension 100,000 units PO QID for 1 week. - Continue present medications. Procedure Code(s): --- Professional --- 57114, 59, Esophagogastroduodenoscopy, flexible, transoral; with control of bleeding, any method 73071, 51, Esophagogastroduodenoscopy, flexible, transoral; with biopsy, single or multiple CPT copyright 2021 [employer]. All rights reserved. The codes documented in this report are preliminary and upon fractionating still operator review may be revised to meet current compliance requirements. Darryl Pimentel DO 11/03/2022 9:07:23 AM This report has been signed electronically. Number of Addenda: 0 Note Initiated On: 11/03/2022 8:27 AM
--- NOTE | 2022-11-03 09:08 | OP.CCLET_ITS ---
11/03/2022 Rosemarie Samaniego [address] [place] [address] Re : Upper GI endoscopy procedure for Dagoberto Guzmánler Dear Dr. Samaniego This procedure was performed on Thursday, November 03, 2022. My impressions and recommendations are as follows: Impressions : - Esophageal plaques were found, suspicious for candidiasis. Biopsied. 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 Treated with a heater probe. - Normal second portion of the duodenum. Recommendations : - Return patient to [facility] for ongoing care. - Resume previous diet. - Use Protonix (pantoprazole) 40 mg PO daily. - Nystatin suspension 100,000 units PO QID for 1 week. - Continue present medications. My findings are described in the full procedure note, which is enclosed. If I can be of further assistance, please feel free to contact me at . Sincerely, Darryl Friend, 11/03/2022 9:07:23 AM This report has been signed electronically.
[2022-11-03] MEDS: Ascorbic Acid 500 MG Tablet 1000 MG PO (09:31)
[2022-11-03] MEDS: Cholecalciferol (VIT D3) 25 MCG TABLET (1,000 UNITS) PO ×2 (09:31→20:51)
[2022-11-03] MEDS: Ezetimibe 10 MG Tablet PO (09:31)
[2022-11-03] MEDS: Amiodarone 200 MG Tablet PO ×2 (09:32→20:51)
[2022-11-03] MEDS: Metoprolol Tartrate 50 MG Tablet PO ×2 (09:32→20:51)
[2022-11-03] MEDS: Aspirin E.C. 81 MG Tablet PO (09:32)
[2022-11-03] MEDS: Cyanocobalamin 500 MCG Tablet 1000 MCG PO (09:33)
[2022-11-03] MEDS: Potassium Chloride Oral Tablet 20 MEQ PO ×2 (09:40→17:26)
[2022-11-03] MEDS: NYSTATIN 500,000 UNIT/5 ML UDC 500000 UNIT PO ×4 (10:49→20:51)
[2022-11-03] MEDS: 0.9% Saline Lock 10 ML Syringe IV (20:51)
[2022-11-03] MEDS: Tamsulosin HCl 0.4 MG Capsule PO (20:51)
[2022-11-04 03:05] VITALS: BP 125/81; PULSE 71; RESP 18; TEMP 36.8; O2SAT 98
[2022-11-04 05:39] VITALS: BMI 28.1
[2022-11-04 08:46] VITALS: BP 129/85; PULSE 75; RESP 14; TEMP 36.6; O2SAT 97
[2022-11-04 08:54] VITALS: BP 129/85; PULSE 75
[2022-11-04] MEDS: Amiodarone 200 MG Tablet PO ×2 (08:54→20:50)
[2022-11-04] MEDS: Ascorbic Acid 500 MG Tablet 1000 MG PO (08:54)
[2022-11-04] MEDS: Ezetimibe 10 MG Tablet PO (08:54)
[2022-11-04] MEDS: Metoprolol Tartrate 50 MG Tablet PO ×2 (08:54→20:50)
[2022-11-04] MEDS: Aspirin E.C. 81 MG Tablet PO (08:55)
[2022-11-04] MEDS: Cholecalciferol (VIT D3) 25 MCG TABLET (1,000 UNITS) PO ×2 (08:55→20:50)
[2022-11-04] MEDS: Cyanocobalamin 500 MCG Tablet 1000 MCG PO (08:55)
[2022-11-04] MEDS: Potassium Chloride Oral Tablet 20 MEQ PO ×2 (08:56→17:39)
[2022-11-04] MEDS: NYSTATIN 500,000 UNIT/5 ML UDC 500000 UNIT PO ×4 (08:57→20:51)
--- NOTE | 2022-11-04 14:10 | CON.PCM.ID_ITS ---
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 TTE showed no veg. No spine tenderness. Also this organism is linked with colon cancer, recommend colonoscopy if possible. Cont ceftriaxone. Will follow, thank you HPI Consult Data Date of Consult: 11/04/22 HPI Narrative Reason for Consultation: bacteremia HPI Narrative: DAYA HOLDEN, is a 82 M who presented 11/01 with about 5 weeks R lower back pain, some chills, fatigue, intermittent abd pain. Was on trip to [place] around time sx started. No recent abx. Some episodes of afib. Came to ED, now on ceftriaxone, feeling better. Had EGD this AM, started on nystatin. No rash, wounds, cough, SOB. Full ROS performed and neg except as noted above [facility] Medical History Aortic aneurysm Asthma Atherosclerotic heart disease of craig coronary artery without angina pectoris BPH (benign prostatic hyperplasia) History of echocardiogram (~12/2015) History of left common carotid artery stent placement (~09/27/20) Non-rheumatic mitral regurgitation Non-rheumatic tricuspid valve insufficiency Nonrheumatic mitral (valve) prolapse PARKER (obstructive sleep apnea) Postoperative atrial fibrillation Pure hypercholesterolemia Thoracic aortic aneurysm without rupture Home Medications aspirin 81 mg tablet,delayed release 81 mg PO QDAY 03/11/17 [History Last Taken Unknown] famotidine 20 mg tablet 40 mg PO QHS 06/21/19 [History Last Taken Unknown] ascorbic acid (vitamin C) 1,000 mg tablet 1 gm PO DAILY 06/26/20 [History Last Taken Unknown] cholecalciferol (vitamin D3) 25 mcg (1,000 unit) tablet 25 mcg PO BID 10/13/20 [History Last Taken Unknown] acetaminophen 325 mg tablet 650 mg PO Q6H PRN pain 10/20/20 [History Last Taken Unknown] losartan 50 mg tablet 50 mg PO DAILY #90 tabs 11/28/20 [Rx Last Taken Unknown] amlodipine 10 mg tablet 10 mg PO DAILY #90 tabs 01/17/22 [Rx Last Taken Unknown] cyanocobalamin (vitamin B-12) 1,000 mcg tablet 1,000 mcg PO DAILY 01/17/22 [History Last Taken Unknown] magnesium 200 mg tablet 200 mg PO DAILY 01/17/22 [History Last Taken Unknown] tamsulosin 0.4 mg capsule 0.4 mg PO QHS 01/17/22 [History Last Taken Unknown] zinc acetate 25 mg (zinc) capsule 25 mg PO DAILY 01/17/22 [History Last Taken Unknown] ezetimibe 10 mg tablet (Zetia) 10 mg PO DAILY #90 tabs 01/30/22 [Rx Last Taken Unknown] coenzyme Q10 100 mg capsule 100 mg PO DAILY 07/22/22 [History Last Taken Unknown] metoprolol tartrate 50 mg tablet 50 mg PO BID #180 tabs 09/02/22 [Rx Last Taken Unknown] furosemide 40 mg tablet See Rx Instructions .Route .COMPLEX #90 tabs 10/16/22 [Rx Last Taken Unknown] potassium chloride 20 mEq tablet,extended release 20 meq PO DAILY #90 tabs 10/16/22 [Rx Last Taken Unknown] apixaban 5 mg tablet (Eliquis) 5 mg PO BID #60 tabs 10/28/22 [Rx Last Taken Unknown] Allergy/AdvReac Type Severity Reaction Status Date / Time [id number] Reductase AdvReac Severe intolerence Verified 11/01/22 19:05 Inhibitor [Qncgtae-[id number]-Wwp Reductase Inhibitor] hydrochlorothiazide AdvReac Intermediate unknown Verified 11/01/22 19:05 red yeast rice AdvReac Intermediate unknown Verified 11/01/22 19:05 Family History Mother Hypertension Father CAD (coronary artery disease) Hypertension Grandmother CAD (coronary artery disease) Surgical History H/O hemorrhoidectomy History of aortic valve replacement with bioprosthetic valve (~09/27/20) History of cardiac catheterization (~03/2003) History of tricuspid valve repair (~09/27/20) Hx of ascending aorta replacement (~09/27/20) Social History Smoking Status: Never smoker alcohol intake: never substance use type: does not use caffeine: Yes Type: coffee Number of servings: 5 Physical Exam Const alert, oriented x3 and no apparent distress General Appearance: cooperative HEENT normocephalic and head/scalp atraumatic Eyes PERRL and EOMs intact bilaterally Neck supple and No nodes Resp normal air movement and clear to auscultation bilaterally Cardio Negative for regular rate or regular rhythm Heart Sounds: murmur GI soft to palpation, non-tender and non-distended Extremity Extremity Narrative: no spine tenderness General Extremity: Negative for edema Skin no rashes or lesions noted Neuro CN's II-XII intact bilaterally Lab / Micro Data Attestation: I reviewed the patient's lab results. 11/03/22 06:22 11/03/22 06:22 Micro: Microbiology 11/02/22 01:55 Blood Culture (Wb) - Anticubital Left Bacteria Detection (PCR) - Final Strep not Strep pneumo 11/02/22 01:55 Blood Culture (Wb) - Anticubital Left Blood Culture - Final Streptococcus infantarius infa 11/02/22 02:08 Blood Culture (Wb) - Anticubital Left Blood Culture - Preliminary Alpha Hemolytic Streptococcus
--- NOTE | 2022-11-04 14:16 | ECHOTEE_ITS ---
Reason For Study: Bacteremia Medication NIYAH probe 6VT-D (SN [id number]) passed with minimal difficulty. No complications were noted. [id number] gargled and swallowed. Versed 1 mg given slow IVP. Fentanyl 50 mcg given slow IVP. Left Ventricle The estimated ejection fraction is 50 %. septal hypokinesis. Right Ventricle Normal RV size. Normal systolic function. Atria The left atrium is severely enlarged. The right atrium is moderately enlarged. Mitral Valve There is no vegetation seen on the mitral valve. There is no mitral valve stenosis. Mild (1+) mitral valve insufficiency. Tricuspid Valve No vegetations identified. There is no tricuspid stenosis. Unable to estimate RV systolic pressure due to inadequate jet, pulmonary artery pressure probably normal. An annuloplasty ring is noted in the tricuspid position. Aortic Valve There is no aortic valvular vegetation. There is no aortic stenosis. No aortic valve insufficiency. Stable appearing bioprosthetic aortic valve apparatus. Pulmonic Valve The pulmonic valve is not well visualized. ECHO/Echo Transesophageal (NIYAH) Interpretation Summary The estimated ejection fraction is 50 %. The left atrium is severely enlarged. The right atrium is moderately enlarged. Mild (1+) mitral valve insufficiency. No vegetations visualized Ordering Physician: Morteza Montoya Referring Physician: Rosemarie Samaniego Performed By: Joseph Veliz RCS
[2022-11-04 14:59] VITALS: BP 111/79; PULSE 70; RESP 15; TEMP 36.9; O2SAT 95
--- NOTE | 2022-11-04 19:44 | EX.PCM.PN.GI ---
Subjective Subjective Patient underwent an upper endoscopy for anemia and GI bleeding. He was discovered to have severe angi esophagitis. He has been tolerating treatment for angi esophagitis. Objective Data Objective Data Vital Signs: Vital Signs Temp Pulse Resp BP Pulse Ox O2 Del Method 98.4 F 70 15 111/79 95 Room Air 11/04/22 14:59 11/04/22 14:59 11/04/22 14:59 11/04/22 14:59 11/04/22 14:59 11/04/22 15:13 Oxygen Delivery Method Room Air Weight: 185 lb 6.54 oz Body Mass Index (BMI) 28.1 Intake & Output: Intake and Output for Last 24 Hours 11/02/22 11/03/22 11/04/22 23:59 23:59 23:59 Intake Total 2227.66 / 2484.36 634.97 / 1114.97 1685 / 1685 Output Total 475 / 1125 1450 / 1650 200 / 200 Balance 1752.66 / 1359.36 -815.03 / -535.03 1485 / 1485 Lab / Micro Data 11/03/22 06:22 11/03/22 06:22 Micro: Microbiology 11/02/22 01:55 Blood Culture (Wb) - Anticubital Left Bacteria Detection (PCR) - Final Strep not Strep pneumo 11/02/22 01:55 Blood Culture (Wb) - Anticubital Left Blood Culture - Final Streptococcus infantarius infa 11/02/22 02:08 Blood Culture (Wb) - Anticubital Left Blood Culture - Preliminary Alpha Hemolytic Streptococcus 11/02/22 05:40 Mucosa - Nasopharyngeal Respiratory Panel (PCR) - Final 11/02/22 03:50 Nasal Secretion SARS-CoV-2 Antigen (Rapid) - Final 11/01/22 19:45 Stool Stool Occult Blood (DEB) - Final Physical Exam Const alert, oriented x3 and no apparent distress General Appearance: cooperative HEENT normocephalic and head/scalp atraumatic Eyes PERRL and EOMs intact bilaterally Neck supple and No nodes Resp normal air movement and clear to auscultation bilaterally Cardio Negative for regular rate or regular rhythm Heart Sounds: murmur GI soft to palpation, non-tender and non-distended Extremity Extremity Narrative: no spine tenderness General Extremity: Negative for edema Skin no rashes or lesions noted Neuro CN's II-XII intact bilaterally Assessment & Plan Assessment/Plan (1) Angi esophagitis: (2) Acute on chronic anemia: PLAN: Plan 82 M who presented to the emergency department with multiple complaints to include fatigue, right-sided low back pain, and intermittent abdominal pain. EGD - Patchy, white plaques were found in the middle third of the esophagus and in the lower third of the esophagus. Biopsies were taken with a cold forceps for histology. Verification of patient identification for the specimen was done. Estimated blood loss was minimal. Three 5 mm angiodysplastic lesions with bleeding were found in the stomach. Coagulation for hemostasis using heater probe was successful. Estimated blood loss was minimal. The second portion of the duodenum was normal. Rec: Continue treatment for angi esophagitis. Trend hemoglobin Charges/Coding Visit Charges Inpatient E&M: 59418 Subs Hosp L3
--- NOTE | 2022-11-04 20:40 | PCM.PN.HOSP ---
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 She told me that she would call him tonight by phone and talk to him about it. Patient remains in A-fib at this time it looks like his heart rate is well controlled however. Objective Data Objective Data Vital Signs: Vital Signs Temp Pulse Resp BP Pulse Ox O2 Del Method 98.4 F 70 15 111/79 95 Room Air 11/04/22 14:59 11/04/22 14:59 11/04/22 14:59 11/04/22 14:59 11/04/22 14:59 11/04/22 15:13 Oxygen Delivery Method Room Air Weight: 84.1 kg Body Mass Index (BMI) 28.1 Intake & Output: Intake and Output for Last 24 Hours 11/02/22 11/03/22 11/04/22 23:59 23:59 23:59 Intake Total 2227.66 / 2484.36 634.97 / 1114.97 1685 / 1685 Output Total 475 / 1125 1450 / 1650 200 / 200 Balance 1752.66 / 1359.36 -815.03 / -535.03 1485 / 1485 Lab / Micro Data 11/05/22 05:53 11/05/22 05:53 Micro: Microbiology 11/02/22 01:55 Blood Culture (Wb) - Anticubital Left Bacteria Detection (PCR) - Final Strep not Strep pneumo 11/02/22 01:55 Blood Culture (Wb) - Anticubital Left Blood Culture - Final Streptococcus infantarius infa 11/02/22 02:08 Blood Culture (Wb) - Anticubital Left Blood Culture - Preliminary Alpha Hemolytic Streptococcus 11/02/22 05:40 Mucosa - Nasopharyngeal Respiratory Panel (PCR) - Final 11/02/22 03:50 Nasal Secretion SARS-CoV-2 Antigen (Rapid) - Final 11/01/22 19:45 Stool Stool Occult Blood (DEB) - Final Physical Exam Const alert, oriented x3, no apparent distress and average body habitus General Appearance: cooperative, well kempt and well developed Orientation / Consciousness: awake, oriented to person, oriented to place and oriented to time HEENT normocephalic, head/scalp atraumatic and moist oral mucous membranes Eyes PERRL, EOMs intact bilaterally and conjunctivae normal Neck supple, no JVD, thyroid normal and no carotid bruits General: trachea midline Resp normal respiratory effort, no retractions, no use of accessory muscles and clear to auscultation bilaterally Auscultation: Negative for rales, rhonchi or wheezes Cardio no murmurs, no rub and no gallops Cardio Narrative: Rate and rhythm is irregular GI normal to inspection, nondistended, normoactive bowel sounds, soft to palpation, non-tender and non-distended Extremity no clubbing, cyanosis or edema Skin no rashes or lesions noted General Skin Exam: no breakdown Neuro oriented x3, CN's II-XII intact bilaterally, moves all extremities, no focal motor deficits and no sensory deficits noted Sensorium / Orientation: awake, alert, oriented to person, oriented to place and oriented to time Speech: speech normal Psych affect normal Assessment & Plan Assessment/Plan (1) Bacteremia: PLAN: Plan 1. Upper GI bleed secondary to angiodysplastic lesions in the stomach-continue IV PPI, monitor for continued upper GI bleeding #2 alpha hemolytic strep bacteremia-etiology unknown, patient will undergo NIYAH tomorrow, he remains on IV antibiotics, infectious diseases saw the patient today #3 Angi esophagitis-patient is to remain on nystatin #4 acute blood loss anemia secondary to upper GI bleed requiring blood transfusion-patient's hemoglobin is stable at this time, CBC will be monitored as needed #5 paroxysmal atrial fib with RVR patient remains on rate limiting medications including Cordarone, patient's apixaban is currently on hold #6 essential hypertension-patient will remain on his present medications, blood pressure will be monitored Total clinical time spent by myself addressing the patient's medical issues, reviewing all of his data, and collaborating with patient's care team: 35 minutes Charges/Coding Visit Charges Inpatient E&M: 79165 Subs Hosp L2
[2022-11-04 20:50] VITALS: PULSE 78
[2022-11-04] MEDS: Tamsulosin HCl 0.4 MG Capsule PO (20:50)
[2022-11-04 20:57] VITALS: BP 129/70; BP 129/80; PULSE 81; RESP 18; TEMP 36.6; O2SAT 98
[2022-11-05] VITALS (7 sets, daily range): BP systolic 111–135; BP diastolic 68–92; PULSE 67–99; RESP 12–18; TEMP 36.6–36.8; O2SAT 92–99; BMI 28.1
[2022-11-05 06:17] LABS: Absolute Lymphocyte Count 0.74 X10^3/uL (0.83-4.51); Absolute Neutrophil Count 7.5 X10^3/uL (2.0-7.7); Basophil# 0.02 X10^3/uL; Basophil% 0.2 % (0-1); Eosinophil# 0.24 X10^3/uL; Eosinophils% 2.7 % (0-5); Hemoglobin 8.8 g/dL (13.0-16.5); Lymphocyte # 0.74 X10^3/ul (0.83-4.51); Lymphocyte % 8.2 % (19-41); Mean Corp Hgb Conc 30.3 g/dL (32-36); Mean Corpuscular Hgb 26.8 pg (27.0-32.0); Mean Corpuscular Volume 88.4 fL (80-94); Monocyte# 0.49 X10^3/uL; Monocyte% 5.4 % (0-10); NRBC Flagged by Analyzer 0 % (0-5); Neutrophil # 7.45 X10^3/uL (2.7-7.7); Neutrophil % 82.5 % (47-70); Platelet Count 273 K/mm3 (150-450); RBC Distribution Width CV 15.8 % (11.6-14.6); RBC Distribution Width SD 50.4 fl (35.1-43.9); Red Blood Count 3.28 M/mm3 (4.6-6.2)
[2022-11-05 06:50] LABS: Anion Gap 3 (5-15); BUN 18 mg/dL (7-18); BUN/Creat Ratio 16.5 RATIO (10-20); Calcium,Total 8.4 mg/dL (8.5-10.1); Chloride 107 mmol/L (98-107); Creatinine, Serum 1.09 mg/dL (0.70-1.30); EST Glomerular Filtration Rate 69 mL/min (>60); Est Glom Filt Rate - Afr Amer 84 mL/min (>60); Estimated Creatinine Clearance 52.29 ml/min; Glucose 98 mg/dL (74-106); Potassium 3.7 mmol/L (3.5-5.1); Sodium Level 137 mmol/L (136-145)
[2022-11-05] MEDS: 0.9% Saline Lock 10 ML Syringe IV (09:02)
--- NOTE | 2022-11-05 10:30 | PCM.PN.ID ---
Physical Exam Narrative Feeling ok, NIYAH planned, no fever, no n/v/d. 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 TTE showed no veg. No spine tenderness. Also this organism is linked with colon cancer, recommend colonoscopy if possible as an outpatient. Cont ceftriaxone. Will follow
--- NOTE | 2022-11-05 10:56 | NURSING ---
Off floor for NIYAH.
[2022-11-05] MEDS: NYSTATIN 500,000 UNIT/5 ML UDC 500000 UNIT PO (12:47)
[2022-11-05] MEDS: Aspirin E.C. 81 MG Tablet PO (12:47)
[2022-11-05] MEDS: Metoprolol Tartrate 50 MG Tablet PO (12:47)
[2022-11-05] MEDS: Cyanocobalamin 500 MCG Tablet 1000 MCG PO (12:48)
[2022-11-05] MEDS: Potassium Chloride Oral Tablet 20 MEQ PO (12:48)
[2022-11-05] MEDS: Cholecalciferol (VIT D3) 25 MCG TABLET (1,000 UNITS) PO (12:48)
[2022-11-05] MEDS: Ascorbic Acid 500 MG Tablet 1000 MG PO (12:48)
[2022-11-05] MEDS: Ezetimibe 10 MG Tablet PO (12:48)
[2022-11-05] MEDS: Amiodarone 200 MG Tablet PO (12:49)
--- NOTE | 2022-11-05 14:23 | DCINST_ITS ---
Discharge Instructions Diet Discharge Diet: No restrictions Activity Discharge Activity: Return to Normal Activity Weight Bearing Status: Full weight bearing Follow Up Care Test Results: Test results from this visit will be discussed in further detail at your follow- up appointment, if applicable. Discharge Plan Admission Admit Date/Time: 11/01/22 20:51 Primary Reason for Your Visit: For gastrointestinal bleed, anemia Attending Provider: Harshal Mtz Primary Care Provider: Rosemarie Samaniego Consulting Providers: Emma Medina; Jarek Crystal; Morteza Montoya Discharge Orders/Prescriptions Prescriptions: New nystatin 100,000 unit/mL Suspension 500,000 unit PO 4X/DAY Qty: 150 0RF amiodarone 200 mg Tablet 200 mg PO UD Qty: 60 0RF Rx Instructions: 1 twice daily for 4 days, then 1 daily thereafter cephalexin 500 mg capsule 500 mg PO TID Qty: 21 0RF Rx Instructions: start on 11/06/22 pantoprazole [Protonix] 40 mg tablet,delayed release (DR/EC) 40 mg PO DAILY Qty: 30 0RF Continued aspirin 81 mg tablet,delayed release (DR/EC) 81 mg PO QDAY famotidine 20 mg tablet 40 mg PO QHS ascorbic acid (vitamin C) 1,000 mg tablet 1 gm PO DAILY acetaminophen 325 mg tablet 650 mg PO Q6H PRN (Reason: pain) tamsulosin 0.4 mg capsule 0.4 mg PO QHS cyanocobalamin (vitamin B-12) 1,000 mcg tablet 1,000 mcg PO DAILY magnesium 200 mg tablet 200 mg PO DAILY zinc acetate 25 mg (zinc) capsule 25 mg PO DAILY amlodipine 10 mg tablet 10 mg PO DAILY Qty: 90 3RF Hold Instructions: Order Changed coenzyme Q10 100 mg capsule 100 mg PO DAILY Patient Comments: TAKE 1 CAPSULE BY MOUTH ONCE DAILY cholecalciferol (vitamin D3) 25 mcg (1,000 unit) tablet 25 mcg PO BID losartan 50 mg tablet 50 mg PO DAILY Qty: 90 3RF ezetimibe [Zetia] 10 mg tablet 10 mg PO DAILY Qty: 90 3RF metoprolol tartrate 50 mg tablet 50 mg PO BID Qty: 180 3RF furosemide 40 mg tablet See Rx Instructions .ROUTE .COMPLEX Qty: 90 3RF Dose Instruction: TAKE 1 TABLET BY MOUTH DAILY Rx Instructions: TAKE 1 TABLET BY MOUTH DAILY potassium chloride 20 mEq tablet extended release 20 meq PO DAILY Qty: 90 3RF Held Eliquis 5 mg tablet 5 mg PO BID Qty: 60 11RF Hold Instructions: Do not take Eliquis for 3 weeks, then resume previous dose Referrals / Follow Up: Rosemarie Samaniego MD [Primary Care Provider] - Within 2 Weeks Jethro Pickard MD [Med Staff - Active Staff] - Within 1 Month (Follow-up in Dr. Pickard's office within a month, you will need a refill of your Cordarone) Darryl Pimentel DO [Med Staff - Active Staff] - See Referral Note (Dr. Pimentel's office will contact you regarding a colonoscopy to be scheduled next week, call the office this week if you do not hear from him.) Disposition Disposition (needs filled in before D/C Order can be placed): Home, Self Care
--- NOTE | 2022-11-05 15:35 | PCM.DC.SUM ---
Providers Date of Admission: 11/01/22 Date of Discharge: 11/05/22 Primary Care Physician: Dr. Rosemarie Samaniego MD Consultations 11/02/22 03:34 Consult: Gastroenterology Routine Consulting Provider: [facility] Reason for Consult: anemia EMERGENT Consult: No Notified: Yes Date Notified: 11/02/22 Time Notified: 06:51 Method of Notification: Text 11/04/22 10:24 Consult: Infectious Disease Routine Consulting Provider: Morteza Montoya Reason for Consult: bacteremia EMERGENT Consult: No Notified: Yes Date Notified: 11/04/22 Time Notified: 10:24 Method of Notification: Verbal Reason For Visit: A-FIB RVR, HYPOTENSION, ACUTE ON CHRONIC ANEMIA Diagnosis Discharge Diagnosis (1) Bacteremia: Status: Acute Code(s): R78.81 - Bacteremia Plan 1. Upper GI bleed secondary to angiodysplastic lesions in the stomach-continue IV PPI, monitor for continued upper GI bleeding #2 alpha hemolytic strep bacteremia-etiology unknown, patient will undergo NIYAH tomorrow, he remains on IV antibiotics, infectious diseases saw the patient today #3 Angi esophagitis-patient is to remain on nystatin #4 acute blood loss anemia secondary to upper GI bleed requiring blood transfusion-patient's hemoglobin is stable at this time, CBC will be monitored as needed #5 paroxysmal atrial fib with RVR patient remains on rate limiting medications including Cordarone, patient's apixaban is currently on hold #6 essential hypertension-patient will remain on his present medications, blood pressure will be monitored Medications at Discharge Home Medications aspirin 81 mg tablet,delayed release 81 mg PO QDAY 03/11/17 famotidine 20 mg tablet 40 mg PO QHS 06/21/19 ascorbic acid (vitamin C) 1,000 mg tablet 1 gm PO DAILY 06/26/20 cholecalciferol (vitamin D3) 25 mcg (1,000 unit) tablet 25 mcg PO BID 10/13/20 acetaminophen 325 mg tablet 650 mg PO Q6H PRN pain 10/20/20 losartan 50 mg tablet 50 mg PO DAILY #90 tabs 11/28/20 amlodipine 10 mg tablet 10 mg PO DAILY #90 tabs 01/17/22 cyanocobalamin (vitamin B-12) 1,000 mcg tablet 1,000 mcg PO DAILY 01/17/22 magnesium 200 mg tablet 200 mg PO DAILY 01/17/22 tamsulosin 0.4 mg capsule 0.4 mg PO QHS 01/17/22 zinc acetate 25 mg (zinc) capsule 25 mg PO DAILY 01/17/22 ezetimibe 10 mg tablet (Zetia) 10 mg PO DAILY #90 tabs 01/30/22 coenzyme Q10 100 mg capsule 100 mg PO DAILY 07/22/22 metoprolol tartrate 50 mg tablet 50 mg PO BID #180 tabs 09/02/22 furosemide 40 mg tablet See Rx Instructions .Route .COMPLEX #90 tabs 10/16/22 potassium chloride 20 mEq tablet,extended release 20 meq PO DAILY #90 tabs 10/16/22 apixaban 5 mg tablet (Eliquis) 5 mg PO BID #60 tabs 10/28/22 amiodarone 200 mg tablet 200 mg PO UD #60 tabs 11/05/22 cephalexin 500 mg capsule 500 mg PO TID #21 caps 11/05/22 nystatin 100,000 unit/mL oral suspension 500,000 unit (5 mL) PO 4X/DAY #150 mL 11/05/22 pantoprazole 40 mg tablet,delayed release (Protonix) 40 mg PO DAILY #30 tabs 11/05/22 Hospital Course Operations None Procedures 2-D Echocardiogram, Blood transfusion, EGD and Transesophageal Echo Summary of Care Provided Minutes Spent on Discharge: 31 Hospital Course: This 82-year-old white male was seen in the emergency room at [facility] with a complaint of right lower back pain and intermittent abdominal pain, on evaluation in the emergency room patient was noted to be in A-fib with a rate between 130-160. Patient received 2.5 mg of IV metoprolol, patient's hemoglobin was noted to be low at 7.5, BUN and creatinine were 19 and 1.46 respectively. Patient was admitted to PCU, he was placed on amiodarone for rate control, he was seen in consultation by gastroenterology who performed an EGD which showed evidence of candidiasis and 3 bleeding angiodysplastic lesions in the stomach. Patient received 2 units of packed red blood cells, patient's blood culture resulted positive for alphahemolytic strep and he was seen in consultation by infectious diseases and placed on IV antibiotics. Patient underwent an echocardiogram which showed no evidence of thrombus, he also underwent a transesophageal echocardiogram which showed no evidence of vegetation. Patient's ejection fraction was 50%. On 11/05/2022, patient was seen and examined: On examination he appeared in good health and spirits. Vital signs as documented. Skin warm and dry and without overt rashes. Neck without JVD, neck was supple, trachea midline, thyroid was normal. Lungs clear bilaterally, normal air movement was noted. Heart exam notable for regular rhythm, normal sounds and absence of murmurs, rubs or gallops. Abdomen unremarkable and without evidence of organomegaly, masses, or abdominal aortic enlargement. Bowel sounds are present, abdomen is not distended. Extremities nonedematous, no cyanosis was noted, no clubbing was noted. Neuro: Cranial nerves II through XII are grossly intact, no focal motor deficits were noted, sensation to light touch and pinprick intact, motor exam 5/5 throughout. Psych: Patient is alert and oriented x3, he does not appear anxious or depressed, he does not appear agitated. Patient appears stable for discharge home on 11/05/2022, patient was instructed to follow-up Dr. Pimentel regarding a colonoscopy, he was kept off his Eliquis until a colonoscopy could be performed. The patient's bacteremia with the alphahemolytic strep necessitated a rule out of colon carcinoma. Weight / BMI Weight Weight: 84 kg Body Mass Index (BMI) 28.1 ABG / Lab / Microbiology Data 11/05/22 05:53 11/05/22 05:53 Laboratory: Laboratory Results - last 24 hr 11/05/22 05:53: WBC 9.0, RBC 3.28 L, Hgb 8.8 L, Hct 29.0 L, MCV 88.4, MCH 26.8 L, MCHC 30.3 L, RDW Std Deviation 50.4 H, RDW Coeff of Duyen 15.8 H, Plt Count 273, MPV 9.0, Immature Gran % (Auto) 1.000 H, Neut % (Auto) 82.5 H, Lymph % (Auto) 8.2 L, [place] % (Auto) 5.4, Eos % (Auto) 2.7, Baso % (Auto) 0.2, Absolute Neuts (auto) 7.5, Absolute Lymphs (auto) 0.74 L, Nucleated RBC % 0, Sodium 137, Potassium 3.7, Chloride 107, Carbon Dioxide 27.0, Anion Gap 3 L, BUN 18, Creatinine 1.09, Estim Creat Clear Calc 52.29, Est GFR (MDRD) Af Amer 84, Est GFR (MDRD) Non-Af 69, BUN/Creatinine Ratio 16.5, Glucose 98, Calcium 8.4 L Microbiology: Microbiology 11/02/22 01:55 Blood Culture (Wb) - Anticubital Left Bacteria Detection (PCR) - Final Strep not Strep pneumo 11/02/22 01:55 Blood Culture (Wb) - Anticubital Left Blood Culture - Final Streptococcus infantarius infa 11/02/22 02:08 Blood Culture (Wb) - Anticubital Left Blood Culture - Preliminary Alpha Hemolytic Streptococcus 11/02/22 05:40 Mucosa - Nasopharyngeal Respiratory Panel (PCR) - Final 11/02/22 03:50 Nasal Secretion SARS-CoV-2 Antigen (Rapid) - Final 11/01/22 19:45 Stool Stool Occult Blood (DEB) - Final Radiography Diagnostic Testing: Radiology Impression Transesophageal Echocardiogram 11/04/22 14:16 Interpretation Summary The estimated ejection fraction is 50 %. The left atrium is severely enlarged. The right atrium is moderately enlarged. Mild (1+) mitral valve insufficiency. No vegetations visualized Ordering Physician: Morteza Montoya Referring Physician: Rosemarie Samaniego Performed By: Joseph Veliz RCS D/C Instructions Discharge Diet: No restrictions Weight Bearing Status: Full weight bearing Meaningful Use Info Meaningful Use Diagnoses (Choose all that apply): None applicable Discharge Plan Admission Admit Date/Time: 11/01/22 20:51 Primary Reason for Your Visit: For gastrointestinal bleed, anemia Attending Provider: Harshal Mtz Primary Care Provider: Rosemarie Samaniego Consulting Providers: Emma Medina; Jarek Crystal; Morteza Montoya Discharge Orders/Prescriptions Prescriptions: New nystatin 100,000 unit/mL Suspension 500,000 unit PO 4X/DAY Qty: 150 0RF amiodarone 200 mg Tablet 200 mg PO UD Qty: 60 0RF Rx Instructions: 1 twice daily for 4 days, then 1 daily thereafter cephalexin 500 mg capsule 500 mg PO TID Qty: 21 0RF Rx Instructions: start on 11/06/22 pantoprazole [Protonix] 40 mg tablet,delayed release (DR/EC) 40 mg PO DAILY Qty: 30 0RF Continued aspirin 81 mg tablet,delayed release (DR/EC) 81 mg PO QDAY famotidine 20 mg tablet 40 mg PO QHS ascorbic acid (vitamin C) 1,000 mg tablet 1 gm PO DAILY acetaminophen 325 mg tablet 650 mg PO Q6H PRN (Reason: pain) tamsulosin 0.4 mg capsule 0.4 mg PO QHS cyanocobalamin (vitamin B-12) 1,000 mcg tablet 1,000 mcg PO DAILY magnesium 200 mg tablet 200 mg PO DAILY zinc acetate 25 mg (zinc) capsule 25 mg PO DAILY amlodipine 10 mg tablet 10 mg PO DAILY Qty: 90 3RF Hold Instructions: Order Changed coenzyme Q10 100 mg capsule 100 mg PO DAILY Patient Comments: TAKE 1 CAPSULE BY MOUTH ONCE DAILY cholecalciferol (vitamin D3) 25 mcg (1,000 unit) tablet 25 mcg PO BID losartan 50 mg tablet 50 mg PO DAILY Qty: 90 3RF ezetimibe [Zetia] 10 mg tablet 10 mg PO DAILY Qty: 90 3RF metoprolol tartrate 50 mg tablet 50 mg PO BID Qty: 180 3RF furosemide 40 mg tablet See Rx Instructions .ROUTE .COMPLEX Qty: 90 3RF Dose Instruction: TAKE 1 TABLET BY MOUTH DAILY Rx Instructions: TAKE 1 TABLET BY MOUTH DAILY potassium chloride 20 mEq tablet extended release 20 meq PO DAILY Qty: 90 3RF Held Eliquis 5 mg tablet 5 mg PO BID Qty: 60 11RF Hold Instructions: Do not take Eliquis for 3 weeks, then resume previous dose Referrals / Follow Up: Rosemarie Samaniego MD [Primary Care Provider] - Within 2 Weeks Jethro Pickard MD [Med Staff - Active Staff] - Within 1 Month (Follow-up in Dr. Pickard's office within a month, you will need a refill of your Cordarone) Darryl Pimentel DO [Med Staff - Active Staff] - See Referral Note (Dr. Pimentel's office will contact you regarding a colonoscopy to be scheduled next week, call the office this week if you do not hear from him.) Disposition Disposition (needs filled in before D/C Order can be placed): Home, Self Care Charges/Coding Visit Charges Inpatient E&M: 95614 Disch Hosp >30min
--- NOTE | 2022-11-05 16:39 | CASEMGMT ---
Patient has order for discharge. RN CM in to discuss needs at discharge. Patient denies needs at discharge. Patient denied further questions or concerns.
--- NOTE | 2022-11-05 16:39 | EX.PCM.PN.GI ---
Subjective Subjective Patient is doing well. He is scheduled to be DC'd off of anticoagulation and on treatment for Streptococcus bovis in his blood. Objective Data Objective Data Vital Signs: Vital Signs Temp Pulse Resp BP Pulse Ox O2 Del Method 97.8 F 67 18 117/68 97 Room Air 11/05/22 14:40 11/05/22 14:40 11/05/22 14:40 11/05/22 14:40 11/05/22 14:40 11/05/22 14:40 Oxygen Delivery Method Room Air Weight: 185 lb 3.013 oz Body Mass Index (BMI) 28.1 Intake & Output: Intake and Output for Last 24 Hours 11/03/22 11/04/22 11/05/22 23:59 23:59 23:59 Intake Total 634.97 / 1114.97 1685 / 1685 270 / 270 Output Total 1450 / 1650 200 / 200 Balance -815.03 / -535.03 1485 / 1485 270 / 270 Lab / Micro Data 11/05/22 05:53 11/05/22 05:53 Labs: Laboratory Results - last 24 hr 11/05/22 05:53: WBC 9.0, RBC 3.28 L, Hgb 8.8 L, Hct 29.0 L, MCV 88.4, MCH 26.8 L, MCHC 30.3 L, RDW Std Deviation 50.4 H, RDW Coeff of Duyen 15.8 H, Plt Count 273, MPV 9.0, Immature Gran % (Auto) 1.000 H, Neut % (Auto) 82.5 H, Lymph % (Auto) 8.2 L, [place] % (Auto) 5.4, Eos % (Auto) 2.7, Baso % (Auto) 0.2, Absolute Neuts (auto) 7.5, Absolute Lymphs (auto) 0.74 L, Nucleated RBC % 0, Sodium 137, Potassium 3.7, Chloride 107, Carbon Dioxide 27.0, Anion Gap 3 L, BUN 18, Creatinine 1.09, Estim Creat Clear Calc 52.29, Est GFR (MDRD) Af Amer 84, Est GFR (MDRD) Non-Af 69, BUN/Creatinine Ratio 16.5, Glucose 98, Calcium 8.4 L Micro: Microbiology 11/02/22 01:55 Blood Culture (Wb) - Anticubital Left Bacteria Detection (PCR) - Final Strep not Strep pneumo 11/02/22 01:55 Blood Culture (Wb) - Anticubital Left Blood Culture - Final Streptococcus infantarius infa 11/02/22 02:08 Blood Culture (Wb) - Anticubital Left Blood Culture - Preliminary Alpha Hemolytic Streptococcus 11/02/22 05:40 Mucosa - Nasopharyngeal Respiratory Panel (PCR) - Final 11/02/22 03:50 Nasal Secretion SARS-CoV-2 Antigen (Rapid) - Final 11/01/22 19:45 Stool Stool Occult Blood (DEB) - Final Radiography Diagnostic Testing: Radiology Impression Transesophageal Echocardiogram 11/04/22 14:16 Interpretation Summary The estimated ejection fraction is 50 %. The left atrium is severely enlarged. The right atrium is moderately enlarged. Mild (1+) mitral valve insufficiency. No vegetations visualized Ordering Physician: Morteza Montoya Referring Physician: Rosemarie Samaniego Performed By: Joseph Veliz RCS Physical Exam Narrative Feeling ok, NIYAH planned, no fever, no n/v/d. 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 TTE showed no veg. No spine tenderness. Also this organism is linked with colon cancer, recommend colonoscopy if possible as an outpatient. Cont ceftriaxone. Will follow (2) Ciera esophagitis: PLAN: Plan 82 M who presented to the emergency department with multiple complaints to include fatigue, right-sided low back pain, and intermittent abdominal pain. EGD - Patchy, white plaques were found in the middle third of the esophagus and in the lower third of the esophagus. Biopsies were taken with a cold forceps for histology. Verification of patient identification for the specimen was done. Estimated blood loss was minimal. Three 5 mm angiodysplastic lesions with bleeding were found in the stomach. Coagulation for hemostasis using heater probe was successful. Estimated blood loss was minimal. The second portion of the duodenum was normal. Rec: Continue treatment for ciera esophagitis. Trend hemoglobin
== END 2022-11-05 17:04 | disposition home or self-care (01) | DRG 378 ==
LOC: ED 19:51 → PCU 20:30
PROVIDERS: Internal Medicine Gastroenterology; Admitting Provider Internal Medicine; Emergency Provider Emergency Medicine; PCP Internal Medicine; Visit Provider Internal Medicine
PROC: 0DJ08ZZ Inspection of Upper Intestinal Tract, Via Natural or Artificial Opening Endoscopic (ICD-10-PCS; CPT 43235; principal; 2022-11-03 06:35)
DX: K31.811 Angiodysplasia of stomach and duodenum with bleeding (principal); B37.81 Candidal esophagitis; R78.81 Bacteremia; D62 Acute posthemorrhagic anemia; I95.2 Hypotension due to drugs; I48.0 Paroxysmal atrial fibrillation; I65.22 Occlusion and stenosis of left carotid artery; I10 Essential (primary) hypertension; I08.1 Rheumatic disorders of both mitral and tricuspid valves; I25.10 Atherosclerotic heart disease of native coronary artery without angina pectoris; G47.33 Obstructive sleep apnea (adult) (pediatric); K21.9 Gastro-esophageal reflux disease without esophagitis; E78.00 Pure hypercholesterolemia, unspecified; E55.9 Vitamin D deficiency, unspecified; M51.36 Other intervertebral disc degeneration, lumbar region; Z95.828 Presence of other vascular implants and grafts; T44.7X5A Adverse effect of beta-adrenoreceptor antagonists, initial encounter; B95.4 Other streptococcus as the cause of diseases classified elsewhere; N40.0 Benign prostatic hyperplasia without lower urinary tract symptoms; N28.9 Disorder of kidney and ureter, unspecified; R79.89 Other specified abnormal findings of blood chemistry; R53.1 Weakness; R53.83 Other fatigue; E66.3 Overweight; Z68.29 Body mass index [BMI] 29.0-29.9, adult; Z95.3 Presence of xenogenic heart valve; Z79.01 Long term (current) use of anticoagulants; Z79.82 Long term (current) use of aspirin; Z79.899 Other long term (current) drug therapy
CPT/HCPCS: 36415; 71045; 74176; 80048; 80053; 80076; 81001; 82274; 83540; 83550; 83735; 84100; 84145; 84443; 84484; 85018; 85025; 85652; 86140; 86850; 86900; 86901; 86920; 86922; 87040; 87077; 87149; 87186; 87426; 87633; 88305; 88312; 93005; 93306; 93312; 93320; 93325; 94668; 97116; 97161; 97166; 97530; 99285; J7040; P9016; A4216; J0696; J1940

== ENCOUNTER 2022-11-14 09:36 | Day surgery (SDC) | payer MEDICARE, OTHER, SELFPAY ==
[2022-11-14] VITALS (7 sets, daily range): BP systolic 95–104; BP diastolic 67–84; PULSE 65–88; RESP 16–18; TEMP 36.4–37.6; O2SAT 95–97; BMI 28.5
--- NOTE | 2022-11-14 | COLBX_PTH ---
PATIENT: DAYA HOLDEN Jr. LOC: EN U#:[id number] AGE/SX: 82/M ROOM: RE11/14/[address]: Dr. Darryl Pimentel DO : 1940 BED: DIS: 11/14/2022 SPEC #: [id number] RECD: 11/14/22 14:05 STATUS: ROBINSON RESarah #: [id number] LUIS: 11/14/22 00:[address]: Darryl Pimentel DEPT: SURGICAL PATHOLOGY RECD BY: Grayson Baum ENTERED: 11/14/22 14:05 SP TYPE: COLON BX OTHR DR: Dr. Rosemarie Samaniego MD Tissues: Cecum, NOS Procedures: Surgery Specimen Level IV HEADER OPERATION: Colonoscopy, stool culture, biopsy PRE-OP DIAGNOSIS: Acute on chronic anemia TISSUE SUBMITTED: Cecal polyp biopsy MICROSCOPIC DIAGNOSIS Cecal polyp, biopsy: Fragments of tubular adenoma. SJ:martina 11/15/2022 MICROSCOPIC DESCRIPTION Slides are reviewed. GROSS DESCRIPTION Received in fixative is one container labeled with the patient's name and designated cecal polyp biopsy. The specimen consists of multiple irregular fragments of light coleman soft tissue that in aggregate measure 1.0 x 0.3 x 0.1 cm. The specimen is totally submitted in one cassette. / SJ:rg 11/14/2022 TC:1 CPT: 77402
[2022-11-14] MEDS: Lactated Ringers 1,000 ML 15 ML IV (10:07)
--- NOTE | 2022-11-14 10:24 | PCM.HP.BLA ---
History and Physical Date of Admission: 11/14/22 82 M who presented to the emergency department with intermittent abdominal pain. They were traveling several weeks ago in early to mid September and were in [place]. The day they were supposed to leave it sounds like the patient developed rigors but he was able to make it home and since that point time he has had fatigue, right-sided low back pain and has had intermittent bouts of A-fib with RVR. He has a history of A-fib with RVR. Per the he experienced it after his heart surgery several years ago. He had been on amiodarone but this was discontinued by cardiology. He had some epigastric pain earlier today but it since resolved. He has had no melena, hematochezia, hematemesis or coffee-ground emesis. And no recent hospitalizations. They said they have called cardiology office several times but have not been able to obtain an appointment. His back pain is off to the right side and the right flank to right upper pelvic area Vital signs on presentation showed temperature of 99.1, heart rate was 160, blood pressure was 118/86, respiratory rate was 18 and oxygen saturations were 96% on room air. He was given some metoprolol on his blood pressures dropped to 98/83. It did improve his heart rate some but he was still between 100-120. His CBC shows a normal white count however he does have a left shift with an 88.4% neutrophilia. His hemoglobin was 7.5 and his platelet count was 167,000. His BMP showed normal electrolytes with an elevated BUN at 19 and a serum creatinine of 1.46 which appears to be elevated from his baseline. [facility] Medical History Aortic aneurysm Asthma Atherosclerotic heart disease of [place] coronary artery without angina pectoris BPH (benign prostatic hyperplasia) History of echocardiogram (~12/2015) History of left common carotid artery stent placement (~09/27/20) Non-rheumatic mitral regurgitation Non-rheumatic tricuspid valve insufficiency Nonrheumatic mitral (valve) prolapse PARKER (obstructive sleep apnea) Postoperative atrial fibrillation Pure hypercholesterolemia Thoracic aortic aneurysm without rupture Home Medications aspirin 81 mg tablet,delayed release 81 mg PO QDAY 03/11/17 [History Last Taken Unknown] famotidine 20 mg tablet 40 mg PO QHS 06/21/19 [History Last Taken Unknown] ascorbic acid (vitamin C) 1,000 mg tablet 1 gm PO DAILY 06/26/20 [History Last Taken Unknown] cholecalciferol (vitamin D3) 25 mcg (1,000 unit) tablet 25 mcg PO BID 10/13/20 [History Last Taken Unknown] acetaminophen 325 mg tablet 650 mg PO Q6H PRN pain 10/20/20 [History Last Taken Unknown] losartan 50 mg tablet 50 mg PO DAILY #90 tabs 11/28/20 [Rx Last Taken Unknown] amlodipine 10 mg tablet 10 mg PO DAILY #90 tabs 01/17/22 [Rx Last Taken Unknown] cyanocobalamin (vitamin B-12) 1,000 mcg tablet 1,000 mcg PO DAILY 01/17/22 [History Last Taken Unknown] magnesium 200 mg tablet 200 mg PO DAILY 01/17/22 [History Last Taken Unknown] tamsulosin 0.4 mg capsule 0.4 mg PO QHS 01/17/22 [History Last Taken Unknown] zinc acetate 25 mg (zinc) capsule 25 mg PO DAILY 01/17/22 [History Last Taken Unknown] ezetimibe 10 mg tablet (Zetia) 10 mg PO DAILY #90 tabs 01/30/22 [Rx Last Taken Unknown] coenzyme Q10 100 mg capsule 100 mg PO DAILY 07/22/22 [History Last Taken Unknown] metoprolol tartrate 50 mg tablet 50 mg PO BID #180 tabs 09/02/22 [Rx Last Taken Unknown] furosemide 40 mg tablet See Rx Instructions .Route .COMPLEX #90 tabs 10/16/22 [Rx Last Taken Unknown] potassium chloride 20 mEq tablet,extended release 20 meq PO DAILY #90 tabs 10/16/22 [Rx Last Taken Unknown] apixaban 5 mg tablet (Eliquis) 5 mg PO BID #60 tabs 10/28/22 [Rx Last Taken Unknown] Allergy/AdvReac Type Severity Reaction Status Date / Time Byxtqzu-CCG-LzQ Reductase AdvReac Severe intolerence Verified 11/01/22 19:05 Inhibitor [Uhneyty-Stk-Acl Reductase Inhibitor] hydrochlorothiazide AdvReac Intermediate unknown Verified 11/01/22 19:05 red yeast rice AdvReac Intermediate unknown Verified 11/01/22 19:05 Family History Mother HypertensionFather CAD (coronary artery disease) HypertensionGrandmother CAD (coronary artery disease) Surgical History H/O hemorrhoidectomy History of aortic valve replacement with bioprosthetic valve (~09/27/20) History of cardiac catheterization (~03/2003) History of tricuspid valve repair (~09/27/20) Hx of ascending aorta replacement (~09/27/20) Social History Smoking Status: Never smoker alcohol intake: never substance use type: does not use caffeine: Yes Type: coffee Number of servings: 5 ROS Constitutional Constitutional: Reports fatigue and weakness; Denies anorexia, change in weight, chills, fever(s), malaise, night sweats or other Eyes Eyes: Denies blurry vision, change in eye color, change in vision, discharge from eye(s), double vision, erythema, eye pain, loss of vision or other ENT HEENT: Denies abnormal hearing, dysphagia, ear pain, epistaxis, headache(s), hearing loss, nasal congestion, nasal discharge, post nasal drip, sinus pressure, sore throat or other Cardiovascular Cardiovascular: Reports rapid heart rate; Denies chest pain, claudication, dyspnea on exertion, edema, lightheadedness, orthopnea, palpitations, paroxysmal nocturnal dyspnea, syncope or other Respiratory/Chest Respiratory/Chest: Reports shortness of breath with exertion Gastrointestinal Gastrointestinal: Reports diarrhea and dyspepsia Genitourinary Genitourinary: Denies burning urination, difficulty urinating, dysuria, hematuria, nocturia, urinary frequency, urinary hesitancy, urinary incontinence, urinary urgency or other Musculoskeletal Musculoskeletal: Reports back pain; Denies arthralgias, joint pain, joint stiffness, joint swelling, myalgias, neck pain or other Neurologic Neurologic: Denies abnormal gait, abnormal speech, confusion, disequilibrium, dizziness, focal weakness, headache(s), numbness, paresthesias, seizure-like activity, seizures, syncope, tingling, tremor(s) or other Psychiatric Psychiatric: Denies anxiety, depression, homicidal ideation, suicidal ideation or other Endocrine Endocrinology: Denies change in body appearance, cold intolerance, excessive sweating, heat intolerance, polydipsia, polyuria or other Allergic/Immunologic Allergic/Immunologic: Denies rhinitis, hives, eczemia, asthma or other Physical Exam Narrative GENERAL: cooperative HEENT: Atraumatic; normocephalic EYES; Anicteric, Normal Conjunctiva NECK; supple, normal thyroid, RESPIRATORY: Diminished to auscultation CARDIOVASCULAR: Regular S1 S2, GI: soft, normoactive bowel sounds, : No Renal angle tenderness; EXTREMITIES: No edema, no clubbing, MUSCULOSKELETAL: no muscle wasting NEURO: Awake; no lateralizing signs. SKIN: No Rash PSYCH; Flat affect Lab / Micro Data 11/03/22 06:22 11/03/22 06:22 Labs: Laboratory Results - last 24 hr 11/02/22 11:50: Troponin I High Sens 12, Blood Type O POSITIVE, Antibody Screen NEGATIVE, Crossmatch See Detail 11/03/22 06:22: WBC 8.7, RBC 3.08 L, Hgb 8.3 L, Hct 26.5 L, MCV 86.0, MCH 26.9 L, MCHC 31.3 L D, RDW Std Deviation 49.6 H, RDW Coeff of Duyen 15.8 H, Plt Count 186, MPV 8.5, Immature Gran % (Auto) 0.500, Neut % (Auto) 84.7 H, Lymph % (Auto) 8.0 L, [place] % (Auto) 5.2, Eos % (Auto) 1.4, Baso % (Auto) 0.2, Absolute Neuts (auto) 7.3, Absolute Lymphs (auto) 0.69 L, Nucleated RBC % 0, Sodium 135 L, Potassium 3.3 L, Chloride 100, Carbon Dioxide 29.0, Anion Gap 6, BUN 17, Creatinine 1.19, Estim Creat Clear Calc 47.90, Est GFR (MDRD) Af Amer 76, Est GFR (MDRD) Non-Af 62, BUN/Creatinine Ratio 14.3, Glucose 109 H, Calcium 8.2 L Micro: Microbiology 11/02/22 01:55 Blood Culture (Wb) - Anticubital Left Bacteria Detection (PCR) - Preliminary Strep not Strep pneumo 11/02/22 01:55 Blood Culture (Wb) - Anticubital Left Blood Culture - Preliminary 11/02/22 02:08 Blood Culture (Wb) - Anticubital Left Blood Culture - Preliminary 11/02/22 05:40 Mucosa - Nasopharyngeal Respiratory Panel (PCR) - Final 11/02/22 03:50 Nasal Secretion SARS-CoV-2 Antigen (Rapid) - Final Radiology Impression Echocardiogram 11/01/22 22:07 Interpretation Summary The left ventricular ejection fraction is 50 %. The left atrium is severely enlarged. The right atrium is moderately enlarged. Moderate (2+) mitral valve insufficiency. Ordering Physician: Emma Medina Referring Physician: FABRIZIO Performed By: Sheila Sahu RCS Assessment & Plan Assessment/Plan (1) Acute on chronic anemia: (2) Acute hypotension: (3) Atrial fibrillation with RVR: (4) Acute right-sided low back pain: (5) Anticoagulant long-term use: (6) Elevated serum creatinine: (7) Weakness: (8) Fatigue: QUALIFIERS: Fatigue type: chronic, unspecified Qualified Code(s): R53.82 - Chronic fatigue, unspecified PLAN: Plan Acute on chronic anemia -Baseline hemoglobin appears to be running between 9 and 10 -Was 9.7 on 10/05/2022 but now 7.5 -Check iron studies -Guaiac stool pending -Check liver panel for signs of hemolysis -Patient has been holding his diuretics so it theoretically could be dilutional -We will utilize IV PPI twice daily dosing for now and if guaiac positive will consult GI and hold apixaban -Check every 6 hours H&H -Recommend to hold apixaban -He should undergo an evaluation of his upper and lower GI tract due to his increased BUN to creatinine ratio and decrease in hemoglobin with the need for anticoagulation due to his recurrent paroxysmal atrial fibrillation. He was explained alternatives, risk, benefits include not withstanding bleeding, infection, sepsis, perforation, need for emergent surgery . Have an ASA of 3. I have examined the patient and the H&P has been reviewed. There are no clinical changes since date of exam.
--- NOTE | 2022-11-14 11:33 | OP.COLON_ITS ---
Patient Name: Dagoberto Baxter Procedure Date: 11/14/2022 10:54 AM Date of : 1940 Age: 82 Procedure: Colonoscopy Indications: Iron deficiency anemia, , Streptoccocus bovis infection Providers: Darryl Pimentel DO Medicines: Monitored Anesthesia Care Patient Profile: This is an 82 year old male. Refer to note in patient chart for documentation of history and physical. Last Colonoscopy: date unknown. Unable to locate last colonoscopy report. Complications: No immediate complications. Procedure: Pre-Anesthesia Assessment: - Prior to the procedure, a History and Physical was performed, and patient medications and allergies were reviewed. The patient is competent. The risks and benefits of the procedure and the sedation options and risks were discussed with the patient. All questions were answered and informed consent was obtained. Patient identification and proposed procedure were verified by the physician in the pre-procedure area. Mental Status Examination: alert and oriented. Airway Examination: normal oropharyngeal airway and neck mobility. Respiratory Examination: clear to auscultation. CV Examination: normal. Prophylactic Antibiotics: The patient does not require prophylactic antibiotics. Prior Anticoagulants: The patient has taken no anticoagulant or antiplatelet agents. ASA Grade Assessment: II - A patient with mild systemic disease. After reviewing the risks and benefits, the patient was deemed in satisfactory condition to undergo the procedure. The anesthesia plan was to use moderate sedation / analgesia (conscious sedation). Immediately prior to administration of medications, the patient was re-assessed for adequacy to receive sedatives. The heart rate, respiratory rate, oxygen saturations, blood pressure, adequacy of pulmonary ventilation, and response to care were monitored throughout the procedure. The physical status of the patient was re-assessed after the procedure. After I obtained informed consent, the scope was passed under direct vision. Throughout the procedure, the patient's blood pressure, pulse, and oxygen saturations were monitored continuously. The Colonoscope was introduced through the anus and advanced to the cecum, identified by appendiceal orifice and ileocecal valve. The colonoscopy was performed without difficulty. The patient tolerated the procedure well. The quality of the bowel preparation was adequate. The terminal ileum, ileocecal valve, appendiceal orifice, and rectum were photographed. Scope In: 11:05:42 AM Scope Withdrawal Time 0 hours 10 minutes 39 seconds Scope Out: 11:23:28 AM Total Procedure Duration Time 0 hours 17 minutes 46 seconds Findings: The perianal and digital rectal examinations were normal. Multiple small and large-mouthed diverticula were found in the recto-sigmoid colon, sigmoid colon and descending colon. Lavage of the area was performed using a moderate amount, resulting in clearance with good visualization. Fluid aspiration was performed through the scope suction channel. The amount of fluid collected was 100 mL. The fluid cloudy. Sample(s) were sent for bacterial cultures. Verification of patient identification for the specimen was done. Estimated blood loss was minimal. The exam was otherwise without abnormality on direct and retroflexion views. Two sessile polyps were found in the cecum. The polyps were 1 to 2 mm in size. These polyps were removed with a cold snare. Resection and retrieval were complete. Verification of patient identification for the specimen was done. Estimated blood loss was minimal. Impression: - Diverticulosis in the recto-sigmoid colon, in the sigmoid colon and in the descending colon. Fluid aspiration performed. - The examination was otherwise normal on direct and retroflexion views. Recommendation: - Discharge patient to home. - Resume previous diet. - Continue present medications. - Await pathology results. - Repeat colonoscopy is not recommended. Procedure Code(s): --- Professional --- 37459, Colonoscopy, flexible; diagnostic, including collection of specimen(s) by brushing or washing, when performed (separate procedure) CPT copyright 2021 [employer]. All rights reserved. The codes documented in this report are preliminary and upon commercial credit specialist review may be revised to meet current compliance requirements. Darryl Pimentel DO 11/14/2022 11:33:03 AM This report has been signed electronically. Number of Addenda: 0 Note Initiated On: 11/14/2022 10:54 AM
--- NOTE | 2022-11-14 11:33 | OP.CCLET_ITS ---
11/14/2022 Rosemarie Samaniego [address] [place] [address] Re : Colonoscopy procedure for Dagoberto Guzmánler Dear Dr. Samaniego This procedure was performed on November. My impressions and recommendations are as follows: Impressions : - Diverticulosis in the recto-sigmoid colon, in the sigmoid colon and in the descending colon. Fluid aspiration performed. - The examination was otherwise normal on direct and retroflexion views. Recommendations : - Discharge patient to home. - Resume previous diet. - Continue present medications. - Await pathology results. - Repeat colonoscopy is not recommended. My findings are described in the full procedure note, which is enclosed. If I can be of further assistance, please feel free to contact me at . Sincerely, Darryl Pimentel, 11/14/2022 11:33:03 AM This report has been signed electronically.
== END 2022-11-14 12:25 | disposition home or self-care (01) ==
LOC: EN 09:38 → AC 09:40
PROVIDERS: PCP Internal Medicine; Referring Provider Internal Medicine; Visit Provider Internal Medicine Gastroenterology
PROC: 0DJD8ZZ Inspection of Lower Intestinal Tract, Via Natural or Artificial Opening Endoscopic (ICD-10-PCS; CPT 45378; principal; 2022-11-14 10:40)
DX: D12.0 Benign neoplasm of cecum (principal); I48.91 Unspecified atrial fibrillation; K57.30 Diverticulosis of large intestine without perforation or abscess without bleeding; I25.10 Atherosclerotic heart disease of native coronary artery without angina pectoris; I95.9 Hypotension, unspecified; R53.1 Weakness; D50.9 Iron deficiency anemia, unspecified; G47.33 Obstructive sleep apnea (adult) (pediatric); I34.0 Nonrheumatic mitral (valve) insufficiency; E78.00 Pure hypercholesterolemia, unspecified; N40.0 Benign prostatic hyperplasia without lower urinary tract symptoms; R19.7 Diarrhea, unspecified; Z79.899 Other long term (current) drug therapy; Z79.82 Long term (current) use of aspirin; Z79.01 Long term (current) use of anticoagulants; Z95.5 Presence of coronary angioplasty implant and graft
CPT/HCPCS: 45378; 87506; 88305; J7120; J2405

== ENCOUNTER 2022-11-17 19:35 | Emergency (ER) | payer MEDICARE, OTHER, SELFPAY ==
[2022-11-17 19:36] VITALS: BP 130/90; PULSE 129; RESP 18; TEMP 37; O2SAT 96; BMI 29.7
--- NOTE | 2022-11-17 19:53 | EKG12_ITS ---
Test Reason : DYSRHYTHMIA Blood Pressure : / mmHG Vent. Rate : 106 BPM Atrial Rate : 000 BPM P-R Int : 000 ms QRS Dur : 100 ms QT Int : 290 ms P-R-T Axes : 000 -16 098 degrees QTc Int : 385 ms Atrial fibrillation with rapid ventricular response Nonspecific ST and T wave abnormality Abnormal ECG Confirmed by ADAMA LAZARO ([id number]), book or script editor DANIEL GARZA ([id number]) on 11/21/2022 10:04:34 AM Referred By: LYDIA Confirmed By:ADAMA LAZARO
--- NOTE | 2022-11-17 19:56 | EX.ED.DYSGE1 ---
HPI History of Present Illness Chief Complaint: Palpitations Informant: patient and spouse/S.O. Narrative Narrative: Patient presents because his heart rate has been high. He is asymptomatic. He denies feeling any palpitations/A-fib although he knows he has been in it, chest discomfort, dyspnea, lightheadedness, syncope. He does have some edema in his legs that is a little worse than usual, he denies orthopnea. He has a red rash on his legs that have been there for 3 to 4 days he denies any pain or itching. States he has been checking his blood pressure periodically, and it tells him that his heart rate is in the 130s or low 100s, it has been highly variable depending on when he checks it, but he has never had any symptoms even if it was in the 160s. He was admitted to the hospital a week ago, and started on amiodarone which she was on long ago but will had a hiatus from it. He had some valvular surgeries remotely, he has no mechanical valves, he is anticoagulated on Eliquis. Denies any bleeding from anywhere. [facility] Medical History Acute hypotension Acute on chronic anemia Acute right-sided low back pain Aortic aneurysm Asthma Atherosclerotic heart disease of [place] coronary artery without angina pectoris Back pain Bacteremia BPH (benign prostatic hyperplasia) Cancer Angi esophagitis Cardiology follow-up encounter CPAP (continuous positive airway pressure) dependence Easy bruising Elevated serum creatinine Fatigue History of atrial fibrillation History of echocardiogram (~12/2015) History of edema History of GI bleed History of IBS History of left common carotid artery stent placement (~09/27/20) History of steroid therapy Hoarseness Hypertension Non-rheumatic mitral regurgitation Non-rheumatic tricuspid valve insufficiency Non-smoker Nonrheumatic mitral (valve) prolapse PARKER (obstructive sleep apnea) Postoperative atrial fibrillation Pure hypercholesterolemia Thoracic aortic aneurysm without rupture Weakness Wears glasses Home Medications aspirin 81 mg tablet,delayed release 81 mg PO QDAY 03/11/17 [History Last Taken Unknown] famotidine 20 mg tablet 40 mg PO QHS 06/21/19 [History Last Taken Unknown] ascorbic acid (vitamin C) 1,000 mg tablet 1 gm PO DAILY 06/26/20 [History Last Taken Unknown] cholecalciferol (vitamin D3) 25 mcg (1,000 unit) tablet 25 mcg PO BID 10/13/20 [History Last Taken Unknown] acetaminophen 325 mg tablet 650 mg PO Q6H PRN pain 10/20/20 [History Last Taken Unknown] losartan 50 mg tablet 50 mg PO DAILY #90 tabs 11/28/20 [Rx Last Taken 11/14/22] amlodipine 10 mg tablet 10 mg PO DAILY #90 tabs 01/17/22 [Rx Last Taken 11/13/22] cyanocobalamin (vitamin B-12) 1,000 mcg tablet 1,000 mcg PO DAILY 01/17/22 [History Last Taken Unknown] magnesium 200 mg tablet 200 mg PO DAILY 01/17/22 [History Last Taken Unknown] tamsulosin 0.4 mg capsule 0.4 mg PO QHS 01/17/22 [History Last Taken Unknown] zinc acetate 25 mg (zinc) capsule 25 mg PO DAILY 01/17/22 [History Last Taken Unknown] ezetimibe 10 mg tablet (Zetia) 10 mg PO DAILY #90 tabs 01/30/22 [Rx Last Taken Unknown] coenzyme Q10 100 mg capsule 100 mg PO DAILY 07/22/22 [History Last Taken Unknown] potassium chloride 20 mEq tablet,extended release 20 meq PO DAILY #90 tabs 10/16/22 [Rx Last Taken Unknown] apixaban 5 mg tablet (Eliquis) 5 mg PO BID #60 tabs 10/28/22 [Rx Last Taken Unknown] cephalexin 500 mg capsule 500 mg PO TID #21 caps 11/05/22 [Rx Last Taken Unknown] nystatin 100,000 unit/mL oral suspension 500,000 unit (5 mL) PO 4X/DAY #150 mL 11/05/22 [Rx Last Taken Unknown] pantoprazole 40 mg tablet,delayed release (Protonix) 40 mg PO DAILY #30 tabs 11/05/22 [Rx Last Taken Unknown] amiodarone 200 mg tablet 200 mg PO BID #60 tabs 11/17/22 [Rx Last Taken 11/14/22] metoprolol tartrate 50 mg tablet 50 mg PO .qam #180 tabs 11/17/22 [Rx Last Taken 11/14/22] Allergy/AdvReac Type Severity Reaction Status Date / Time Lmynjws-BAM-YrR Reductase AdvReac Severe intolerence Verified 11/17/22 19:38 Inhibitor [Ciegkhd-Wfd-Ypm Reductase Inhibitor] hydrochlorothiazide AdvReac Intermediate unknown Verified 11/17/22 19:38 red yeast rice AdvReac Intermediate unknown Verified 11/17/22 19:38 Family History Mother Hypertension Father CAD (coronary artery disease) Hypertension Grandmother CAD (coronary artery disease) Surgical History H/O hemorrhoidectomy History of aortic valve replacement with bioprosthetic valve (~09/27/20) History of cardiac catheterization (~03/2003) History of tricuspid valve repair (~09/27/20) Hx of ascending aorta replacement (~09/27/20) Social History Smoking Status: Never smoker alcohol intake: never substance use type: does not use caffeine: Yes Type: coffee Number of servings: 5 ROS ROS ED Constitutional Constitutional ED: Denies chills or fever(s) Eyes Eyes: Denies change in vision or diplopia ENT ENT ED: Denies rhinorrhea or sore throat Cardiovascular Cardiovascular: Reports leg edema; Denies chest pain, lightheadedness, palpitations or syncope Respiratory/Chest Respiratory/Chest: Denies cough or dyspnea Gastrointestinal Gastrointestinal: Denies abdominal pain, diarrhea, nausea or vomiting Genitourinary Genitourinary ED: Denies dysuria or hematuria Musculoskeletal Musculoskeletal: Denies back pain or neck pain Integumentary Denies abscess or rash Neurologic Neurologic: Denies headache(s), paresthesias or weakness Psychiatric Psychiatric: Denies anxiety or suicidal thoughts EXAM Physical Exam Const Vital Signs: 11/17/22 19:36 11/17/22 20:07 11/17/22 20:30 Temperature 98.6 F Temperature Source Temporal Pulse Rate 129 H 97 88 Respiratory Rate 18 20 H 17 Blood Pressure 130/90 H 125/79 H 125/80 H Blood Pressure Mean 103 94 95 Pulse Ox 96 20 97 Oxygen Delivery Method Room Air Room Air Room Air 11/17/22 20:43 11/17/22 21:00 Temperature Temperature Source Pulse Rate 92 94 Respiratory Rate 18 18 Blood Pressure 122/99 H 155/64 H Blood Pressure Mean 106 94 Pulse Ox 97 96 Oxygen Delivery Method Room Air Room Air Positive well nourished and well developed General Appearance ED: well developed and NAD HEENT Reports moist mucous membranes normocephalic and atraumatic Eyes PERRL and EOMs intact bilaterally Neck full ROM and supple Resp normal respiratory effort and clear to auscultation bilaterally Cardio Rate: tachycardic and other Other Details: Intermittently tachycardic, at the time of the exam the patient is in the low 100s. Also some audible valve clicking. Rhythm: abnormal rhythm irregularly irregular GI non-tender and non-distended Auscultation: normoactive bowel sounds Palpation: soft Back/Spine no CVA tenderness General Back: other FROM Extremity normal to inspection General Extremety ED: Yes edema; Negative for pulses abnormal or tenderness General Extremity: edema bilateral lower extremity Details: moderate; Negative for pulses abnormal Neuro oriented x3, CN's II-XII intact bilaterally and no sensory deficits noted Sensorium / Orientation: awake and alert Motor Exam: strength 5/5 throughout Psych mental status grossly normal Skin no wounds Skin Narrative: Macular red rash both lower legs, does not mamta and is nontender, could be petechial but atypical and the lesions are not well-circumscribed, they fade/feather at the perimeter. MDM MDM MDM Narrative Medical decision making narrative: Attempted basic labs and monitored the patient here for an hour or 2, the labs are unremarkable I reviewed them, and his heart rate went down into the 90s and rarely went over 100 before we gave him any Cardizem, so we held that and continue to monitor him and he did not have any significant tachycardia while we kept on on the monitor. His blood pressure was anywhere from 125 systolic to 155. I reviewed his recent inpatient visit. Cardiology was not consulted, they did do an echo and NIYAH to rule out valvular vegetations, apparently he was tachycardic and hypotensive upon admission and had blood cultures positive for alphahemolytic strep, and already finished his antibiotics. He was on amiodarone twice daily for 4 days, and then went down to 200 mg once daily. He has had no more fevers, is feeling well and is afebrile here. I discussed all this with Dr. Jimenez, he recommends increasing his amiodarone 200 mg daily to twice daily for 1 week, then going back down to 200 mg daily in the morning, and also increasing his metoprolol to tartrate 25 mg twice daily to a 50 mg dose in the morning going forward and following up in the office. They are comfortable with that plan. History & Record Review Additional record(s) reviewed:: Prior inpatient record and Prior labs Lab Data Attestation: I reviewed the patient's lab results. Labs: Laboratory Results - last 24 hr 11/17/22 19:45 WBC 12.2 H RBC 3.46 L Hgb 9.3 L Hct 32.0 L MCV 92.5 MCH 26.9 L MCHC 29.1 L RDW Std Deviation 57.2 H RDW Coeff of Duyen 17.0 H Plt Count 214 MPV 8.6 Immature Gran % (Auto) 0.400 Neut % (Auto) 88.1 H Lymph % (Auto) 6.1 L [place] % (Auto) 4.1 Eos % (Auto) 0.9 Baso % (Auto) 0.4 Absolute Neuts (auto) 10.7 H Absolute Lymphs (auto) 0.74 L Nucleated RBC % 0 Sodium 140 Potassium 3.9 Chloride 107 Carbon Dioxide 29.0 Anion Gap 4 L BUN 22 H Creatinine 1.15 Estim Creat Clear Calc 49.57 Est GFR (MDRD) Af Amer 79 Est GFR (MDRD) Non-Af 65 BUN/Creatinine Ratio 19.1 Glucose 116 H Calcium 8.8 Rhythm Strip Rhythm Strip: A-fib Rate: 106 Ectopy: None EKG Initial EKG: Attestation: I personally reviewed and interpreted this EKG as follows: Interpretation: No Acute Injury Pattern and Atrial Fibrillation Prior EKG tracings: available for review Prior: Unchanged Management Discussion w/another healthcare provider: [employer] (Cardiology) Discharge Plan Triage Chief Complaint: Palpitations ED Provider: Bay Marquez Dx/Rx/DC Orders Clinical Impression: Atrial fibrillation with RVR Instructions: AFib Dc Prescriptions: Continued aspirin 81 mg tablet,delayed release (DR/EC) 81 mg PO QDAY famotidine 20 mg tablet 40 mg PO QHS ascorbic acid (vitamin C) 1,000 mg tablet 1 gm PO DAILY acetaminophen 325 mg tablet 650 mg PO Q6H PRN (Reason: pain) tamsulosin 0.4 mg capsule 0.4 mg PO QHS cyanocobalamin (vitamin B-12) 1,000 mcg tablet 1,000 mcg PO DAILY magnesium 200 mg tablet 200 mg PO DAILY zinc acetate 25 mg (zinc) capsule 25 mg PO DAILY amlodipine 10 mg tablet 10 mg PO DAILY Qty: 90 3RF Hold Instructions: Order Changed coenzyme Q10 100 mg capsule 100 mg PO DAILY Patient Comments: TAKE 1 CAPSULE BY MOUTH ONCE DAILY nystatin 100,000 unit/mL Suspension 500,000 unit PO 4X/DAY Qty: 150 0RF cephalexin 500 mg capsule 500 mg PO TID Qty: 21 0RF Rx Instructions: start on 11/06/22 pantoprazole [Protonix] 40 mg tablet,delayed release (DR/EC) 40 mg PO DAILY Qty: 30 0RF cholecalciferol (vitamin D3) 25 mcg (1,000 unit) tablet 25 mcg PO BID losartan 50 mg tablet 50 mg PO DAILY Qty: 90 3RF ezetimibe [Zetia] 10 mg tablet 10 mg PO DAILY Qty: 90 3RF potassium chloride 20 mEq tablet extended release 20 meq PO DAILY Qty: 90 3RF Eliquis 5 mg tablet 5 mg PO BID Qty: 60 11RF Hold Instructions: Do not take Eliquis for 3 weeks, then resume previous dose Changed amiodarone 200 mg Tablet 200 mg PO BID Qty: 60 0RF Rx Instructions: 1 twice daily for 7 days starting 11/17, then 1 daily thereafter metoprolol tartrate 50 mg tablet 50 mg PO .qam Qty: 180 0RF Rx Instructions: 50mg ev AM, 25mg ev night Primary Care Provider: Rosemarie Samaniego Referrals: Rosemarie Samaniego MD [Primary Care Provider] - Anselmo Jimenez MD [Med Staff - Active Staff] - 1-2 Weeks (or Basilio Rivera in office) Disposition Disposition: Home, Self Care
[2022-11-17 20:06] LABS: Absolute Lymphocyte Count 0.74 X10^3/uL (0.83-4.51); Absolute Neutrophil Count 10.7 X10^3/uL (2.0-7.7); Basophil# 0.05 X10^3/uL; Basophil% 0.4 % (0-1); Eosinophil# 0.11 X10^3/uL; Eosinophils% 0.9 % (0-5); Hemoglobin 9.3 g/dL (13.0-16.5); Lymphocyte # 0.74 X10^3/ul (0.83-4.51); Lymphocyte % 6.1 % (19-41); Mean Corp Hgb Conc 29.1 g/dL (32-36); Mean Corpuscular Hgb 26.9 pg (27.0-32.0); Mean Corpuscular Volume 92.5 fL (80-94); Mean Platelet Vol. 8.6 fl (6.2-12.0); Monocyte% 4.1 % (0-10); NRBC Flagged by Analyzer 0 % (0-5); Neutrophil # 10.73 X10^3/uL (2.7-7.7); Neutrophil % 88.1 % (47-70); Platelet Count 214 K/mm3 (150-450); RBC Distribution Width SD 57.2 fl (35.1-43.9); Red Blood Count 3.46 M/mm3 (4.6-6.2); White Blood Count 12.2 K/mm3 (4.4-11.0)
[2022-11-17 20:07] VITALS: BP 125/79; PULSE 97; RESP 20; O2SAT 20
[2022-11-17 20:20] LABS: Anion Gap 4 (5-15); BUN 22 mg/dL (7-18); BUN/Creat Ratio 19.1 RATIO (10-20); Calcium,Total 8.8 mg/dL (8.5-10.1); Chloride 107 mmol/L (98-107); Creatinine, Serum 1.15 mg/dL (0.70-1.30); EST Glomerular Filtration Rate 65 mL/min (>60); Est Glom Filt Rate - Afr Amer 79 mL/min (>60); Estimated Creatinine Clearance 49.57 ml/min; Glucose 116 mg/dL (74-106); Potassium 3.9 mmol/L (3.5-5.1); Sodium Level 140 mmol/L (136-145)
[2022-11-17 20:30] VITALS: BP 125/80; PULSE 88; RESP 17; O2SAT 97
[2022-11-17 20:43] VITALS: BP 122/99; PULSE 92; RESP 18; O2SAT 97
[2022-11-17 21:00] VITALS: BP 155/64; PULSE 94; RESP 18; O2SAT 96
[2022-11-17 21:11] VITALS: BP 139/86; PULSE 97; RESP 16; O2SAT 95
== END 2022-11-17 21:43 | disposition home or self-care (01) ==
PROVIDERS: Emergency Provider Emergency Medicine; PCP Internal Medicine; Visit Provider Emergency Medicine
DX: I48.91 Unspecified atrial fibrillation (principal); I25.10 Atherosclerotic heart disease of native coronary artery without angina pectoris; G47.33 Obstructive sleep apnea (adult) (pediatric); Z79.01 Long term (current) use of anticoagulants
CPT/HCPCS: 80048; 85025; 93005; 99284

== ENCOUNTER → 2022-11-25 | Outpatient (CLI) | payer MEDICARE, OTHER, SELFPAY ==
[2022-11-25 11:09] LABS: Absolute Lymphocyte Count 0.77 X10^3/uL (0.83-4.51); Absolute Neutrophil Count 9.7 X10^3/uL (2.0-7.7); Basophil# 0.04 X10^3/uL; Basophil% 0.4 % (0-1); Eosinophil# 0.25 X10^3/uL; Eosinophils% 2.2 % (0-5); Hematocrit 27.3 % (40-54); Hemoglobin 8.1 g/dL (13.0-16.5); Lymphocyte # 0.77 X10^3/ul (0.83-4.51); Lymphocyte % 6.8 % (19-41); Mean Corp Hgb Conc 29.7 g/dL (32-36); Mean Corpuscular Hgb 27.6 pg (27.0-32.0); Mean Corpuscular Volume 92.9 fL (80-94); Mean Platelet Vol. 8.8 fl (6.2-12.0); Monocyte# 0.54 X10^3/uL; Monocyte% 4.7 % (0-10); NRBC Flagged by Analyzer 0 % (0-5); Neutrophil # 9.74 X10^3/uL (2.7-7.7); Neutrophil % 85.4 % (47-70); Platelet Count 235 K/mm3 (150-450); RBC Distribution Width CV 17.8 % (11.6-14.6); RBC Distribution Width SD 59.6 fl (35.1-43.9); Red Blood Count 2.94 M/mm3 (4.6-6.2); White Blood Count 11.4 K/mm3 (4.4-11.0)
== END | disposition home or self-care (01) ==
LOC: LAB 10:16
PROVIDERS: PCP Internal Medicine; Referring Provider Internal Medicine Gastroenterology; Visit Provider Internal Medicine Gastroenterology
DX: K62.5 Hemorrhage of anus and rectum (principal)
CPT/HCPCS: 85025

== ENCOUNTER → 2022-11-26 | Outpatient (CLI) | payer MEDICARE, OTHER, SELFPAY | END | disposition home or self-care (01) | LOC: LAB 13:26 | PROVIDERS: PCP Internal Medicine; Referring Provider Internal Medicine Infectious Disease; Visit Provider Internal Medicine Infectious Disease | DX: M86.9 Osteomyelitis, unspecified (principal) | CPT/HCPCS: 36415; 87040; 87149; 87186 ==

== ENCOUNTER 2022-11-27 09:12 | Inpatient (IN) | payer MEDICARE, OTHER, SELFPAY ==
[2022-11-27 09:13] VITALS: BP 95/59; PULSE 105; RESP 14; TEMP 36.4; O2SAT 98; BMI 28.3
--- NOTE | 2022-11-27 09:18 | EDS_ITS ---
HPI History of Present Illness Chief Complaint: General Illness [facility] Medical History Acute hypotension Acute on chronic anemia Acute right-sided low back pain Aortic aneurysm Asthma Atherosclerotic heart disease of [place] coronary artery without angina pectoris Back pain Bacteremia BPH (benign prostatic hyperplasia) Cancer Angi esophagitis Cardiology follow-up encounter CPAP (continuous positive airway pressure) dependence Easy bruising Elevated serum creatinine Fatigue History of atrial fibrillation History of echocardiogram (~12/2015) History of edema History of GI bleed History of IBS History of left common carotid artery stent placement (~09/27/20) History of steroid therapy Hoarseness Hypertension Non-rheumatic mitral regurgitation Non-rheumatic tricuspid valve insufficiency Non-smoker Nonrheumatic mitral (valve) prolapse PARKER (obstructive sleep apnea) Postoperative atrial fibrillation Pure hypercholesterolemia Thoracic aortic aneurysm without rupture Weakness Wears glasses Home Medications aspirin 81 mg tablet,delayed release 81 mg PO QDAY 03/11/17 [History Last Taken Unknown] famotidine 20 mg tablet 40 mg PO QHS 06/21/19 [History Last Taken Unknown] ascorbic acid (vitamin C) 1,000 mg tablet 1 gm PO DAILY 06/26/20 [History Last Taken Unknown] cholecalciferol (vitamin D3) 25 mcg (1,000 unit) tablet 25 mcg PO BID 10/13/20 [History Last Taken Unknown] acetaminophen 325 mg tablet 650 mg PO Q6H PRN pain 10/20/20 [History Last Taken Unknown] losartan 50 mg tablet 50 mg PO DAILY #90 tabs 11/28/20 [Rx Last Taken 11/14/22] amlodipine 10 mg tablet 10 mg PO DAILY #90 tabs 01/17/22 [Rx Last Taken 11/13/22] cyanocobalamin (vitamin B-12) 1,000 mcg tablet 1,000 mcg PO DAILY 01/17/22 [History Last Taken Unknown] magnesium 200 mg tablet 200 mg PO DAILY 01/17/22 [History Last Taken Unknown] tamsulosin 0.4 mg capsule 0.4 mg PO QHS 01/17/22 [History Last Taken Unknown] zinc acetate 25 mg (zinc) capsule 25 mg PO DAILY 01/17/22 [History Last Taken Unknown] ezetimibe 10 mg tablet (Zetia) 10 mg PO DAILY #90 tabs 01/30/22 [Rx Last Taken Unknown] coenzyme Q10 100 mg capsule 100 mg PO DAILY 07/22/22 [History Last Taken Unknown] potassium chloride 20 mEq tablet,extended release 20 meq PO DAILY #90 tabs 10/16/22 [Rx Last Taken Unknown] apixaban 5 mg tablet (Eliquis) 5 mg PO BID #60 tabs 10/28/22 [Rx Last Taken Unknown] cephalexin 500 mg capsule 500 mg PO TID #21 caps 11/05/22 [Rx Last Taken Unknown] nystatin 100,000 unit/mL oral suspension 500,000 unit (5 mL) PO 4X/DAY #150 mL 11/05/22 [Rx Last Taken Unknown] pantoprazole 40 mg tablet,delayed release (Protonix) 40 mg PO DAILY #30 tabs 11/05/22 [Rx Last Taken Unknown] amiodarone 200 mg tablet 200 mg PO BID #60 tabs 11/17/22 [Rx Last Taken 11/14/22] metoprolol tartrate 50 mg tablet 50 mg PO .qam #180 tabs 11/17/22 [Rx Last Taken 11/14/22] Allergy/AdvReac Type Severity Reaction Status Date / Time Ttqngyn-DJR-YgK Reductase AdvReac Severe intolerence Verified 11/27/22 09:13 Inhibitor [Upfrzfs-Tzz-Hue Reductase Inhibitor] hydrochlorothiazide AdvReac Intermediate unknown Verified 11/27/22 09:13 red yeast rice AdvReac Intermediate unknown Verified 11/27/22 09:13 Family History Mother Hypertension Father CAD (coronary artery disease) Hypertension Grandmother CAD (coronary artery disease) Surgical History H/O hemorrhoidectomy History of aortic valve replacement with bioprosthetic valve (~09/27/20) History of cardiac catheterization (~03/2003) History of tricuspid valve repair (~09/27/20) Hx of ascending aorta replacement (~09/27/20) Social History Smoking Status: Never smoker alcohol intake: never substance use type: does not use caffeine: Yes Type: coffee Number of servings: 5 EXAM Physical Exam Const Vital Signs: 11/27/22 09:13 11/27/22 10:13 Temperature 97.6 F L Temperature Source Temporal Pulse Rate 105 H Respiratory Rate 14 Respiratory Effort Normal Non-Labored Respiratory Pattern Normal Blood Pressure 95/59 L Blood Pressure Mean 71 Pulse Ox 98 Oxygen Delivery Method Room Air [facility] Narrative Medical decision making narrative: HISTORY OF PRESENT ILLNESS: 82-year-old male here with concern for infection in his blood states he was here couple weeks ago for the same. He further states he feels well but was told to come into the emergency department by his infectious disease doctor to be admitted secondary to having positive blood cultures. REVIEW OF SYSTEMS: Pertinent positives: Chronic back pain Pertinent negatives: Fever, cough, urinary complaints PHYSICAL EXAM: Nursing triage notes reviewed, Vital signs reviewed Constitutional: please see mdm HENT: MMM Eyes: Pupils equal round and reactive to light, Extraocular muscles intact Neck: No stridor, no JVD, full neck ROM Lungs: Clear to auscultation, No wheezing or rales. No increased work of breathing, no conversational dyspnea, no accessory muscle use, no nasal flaring. No respiratory distress noted Heart: Regular rate and rhythm, No murmurs, No rubs and No gallops, 2+ distal pulses (radial, femoral, posterior tibial) in all extremities Abdomen: Soft, there is no tenderness, rigidity, rebound or guarding, no obvious peritoneal signs, no palpable pulsatile abdominal masses, no auscultated abdominal bruit : No CVAT Back: No midline step-offs deformities or TTP noted over the thoracic or lumbar spine there was some slight TTP over the paraspinal muscles over the upper buttock/coccyx region Extremities: Trace edema Neuro: No focal neurological deficits, cranial nerves II through XII intact, 5/5 strength in all extremities. Intact sensation to light touch in all extremities, 2+ reflexes bilateral patella tendons. Normal gait. No ataxia. Intact sensation L1-S1 dermatomal distributions. Intact 5/5 strength in hip flexion (T12-L3). Knee extension (L2-L4). Ankle dorsiflexion (L4-L5). Ankle plantar flexion (S1). Great toe extension (L5). 2+ patellar and Achilles DTRs. Skin: No rash or lesions noted MEDICAL DECISION MAKING: Chief Complaint: Concern for bacteremia External records reviewed: Admitted at the end of October 2022 for A-fib with RVR, hypotension, acute on chronic anemia as well as bacteremia. Blood culture report from 11/26/2022 was reviewed and showed gram-positive cocci Factors affecting care: atrial fibrillation on Eliquis, hypertension, CAD, hyperlipidemia Social determinants of health: Elderly, good health literacy History obtained from others: The patient's Consults: Infectious disease, internal medicine ALL IMAGES (IF OBTAINED) HAVE BEEN PERSONALLY REVIEWED AND INTERPRETED BY MYSELF . EKG with rate controlled atrial fibrillation, left axis deviation, normal intervals, no STEMI CBC without leukocytosis, mild anemia, no thrombocytopenia Lipase is wnl indicating no pancreatic inflammation. Urinalysis shows no evidence of urinary inflammation suggestive of UTI Lactate is wnl indicating no end-organ hypoperfusion and/or hypoxia. I have personally reviewed the patient's chest x-ray. Chest x-ray is unremarkable for pulmonary edema, pneumothorax, pneumonia or focal cardiopulmonary abnormality. MDM Narrative: Patient was initially hypotensive, tachycardic otherwise well-appearing and asymptomatic. I considered the following differential diagnosis: Bacteremia, spinal osteomyelitis, epidural abscess, I obtained a broad lab and imaging work-up to further elucidate etiology of patient's complaints ruling out other source of infection. Also obtain blood cultures. Gave broad-spectrum antibiotics (cefepime, vancomycin) per patient report of positive blood cultures as an outpatient. Discussed with infectious disease and spine surgery. Both agreed the patient is appropriate for admission to [facility]. Patient is admitted for IV antimicrobial therapy. The patient and/or family, caregivers express understanding. The patient and/or family, caregivers agrees with the plan. Shared decision making: I will have a discussion with the patient and or visitors regarding risk/benefits of further testing or admission. They will be made aware of of the risk/benefits inherent in this decision they will be given the opportunity to voice understanding. Total critical care time today provided was at least 0 minutes. This excludes separately billable procedures. Critical care time (if documented) is secondary to the patient having high probability of clinically significant/life threatening deterioration in the patient's condition which required my urgent intervention. Impression: 1. Gram-positive bacteremia 2. Osteo discitis 3. Tachycardia 4. Hypotension Dispo: Admit Lab Data Attestation: I reviewed the patient's lab results. Labs: Laboratory Results - last 24 hr 11/27/22 11/27/22 11/27/22 09:34 10:00 10:06 WBC 10.3 RBC 3.05 L Hgb 8.4 L Hct 27.9 L MCV 91.5 MCH 27.5 MCHC 30.1 L RDW Std Deviation 58.8 H RDW Coeff of Duyen 17.9 H Plt Count 233 MPV 8.3 Immature Gran % (Auto) 0.500 Neut % (Auto) 89.3 H Lymph % (Auto) 4.1 L [place] % (Auto) 4.1 Eos % (Auto) 1.6 Baso % (Auto) 0.4 Absolute Neuts (auto) 9.2 H Absolute Lymphs (auto) 0.42 L Nucleated RBC % 0 Differential Comment SCANNED Sodium 141 Potassium 3.7 Chloride 108 H Carbon Dioxide 29.0 Anion Gap 4 L BUN 18 Creatinine 1.33 H Estim Creat Clear Calc 42.86 Est GFR (MDRD) Af Amer 66 Est GFR (MDRD) Non-Af 55 L BUN/Creatinine Ratio 13.5 Glucose 96 Lactic Acid 1.3 Calcium 9.0 Total Bilirubin 0.70 AST 11 L ALT 18 Alkaline Phosphatase 99 Total Protein 8.1 Albumin 3.3 Globulin 4.8 H Albumin/Globulin Ratio 0.7 L Lipase 27 Urine Color Yellow Urine Clarity Clear Urine pH 6.5 Ur Specific [place] 1.015 Urine Protein 30 H Urine Glucose (UA) Normal Urine Ketones Negative Urine Occult Blood 10 H Urine Nitrite Negative Urine Bilirubin Negative Urine Urobilinogen 1 H Ur Leukocyte Esterase 25 H Urine RBC 0 SEEN Urine WBC 0-5 SEEN Ur Squamous Epith Cells 0 SEEN Urine Bacteria 0 SEEN Urine Mucus 0 SEEN Radiography Diagnostic Testing: Clinical Impression(s) from Imaging Studies Chest X-Ray 11/27/22 09:58 IMPRESSION: Blunting of the costophrenic angles with mild basilar atelectasis at the left lung base. Electronically Signed: Lokesh Smith MD at 11:05 EDT , Discharge Plan Triage Chief Complaint: General Illness ED Provider: Cal Renee Dx/Rx/DC Orders Prescriptions: No Action aspirin 81 mg tablet,delayed release (DR/EC) 81 mg PO QDAY famotidine 20 mg tablet 40 mg PO QHS ascorbic acid (vitamin C) 1,000 mg tablet 1 gm PO DAILY acetaminophen 325 mg tablet 650 mg PO Q6H PRN (Reason: pain) tamsulosin 0.4 mg capsule 0.4 mg PO QHS cyanocobalamin (vitamin B-12) 1,000 mcg tablet 1,000 mcg PO DAILY magnesium 200 mg tablet 200 mg PO DAILY zinc acetate 25 mg (zinc) capsule 25 mg PO DAILY amlodipine 10 mg tablet 10 mg PO DAILY Qty: 90 3RF Hold Instructions: Order Changed coenzyme Q10 100 mg capsule 100 mg PO DAILY Patient Comments: TAKE 1 CAPSULE BY MOUTH ONCE DAILY amiodarone 200 mg Tablet 200 mg PO BID Qty: 60 0RF Rx Instructions: 1 twice daily for 7 days starting 11/17, then 1 daily thereafter metoprolol tartrate 50 mg tablet 50 mg PO .qam Qty: 180 0RF Rx Instructions: 50mg ev AM, 25mg ev night nystatin 100,000 unit/mL Suspension 500,000 unit PO 4X/DAY Qty: 150 0RF cephalexin 500 mg capsule 500 mg PO TID Qty: 21 0RF Rx Instructions: start on 11/06/22 pantoprazole [Protonix] 40 mg tablet,delayed release (DR/EC) 40 mg PO DAILY Qty: 30 0RF cholecalciferol (vitamin D3) 25 mcg (1,000 unit) tablet 25 mcg PO BID losartan 50 mg tablet 50 mg PO DAILY Qty: 90 3RF ezetimibe [Zetia] 10 mg tablet 10 mg PO DAILY Qty: 90 3RF potassium chloride 20 mEq tablet extended release 20 meq PO DAILY Qty: 90 3RF Eliquis 5 mg tablet 5 mg PO BID Qty: 60 11RF Hold Instructions: Do not take Eliquis for 3 weeks, then resume previous dose Primary Care Provider: Rosemarie Samaniego Referrals: Rosemarie Samaniego MD [Primary Care Provider] -
--- NOTE | 2022-11-27 09:21 | EKG12_ITS ---
Test Reason : GENERAL Blood Pressure : / mmHG Vent. Rate : 074 BPM Atrial Rate : 000 BPM P-R Int : 000 ms QRS Dur : 100 ms QT Int : 378 ms P-R-T Axes : 000 -15 034 degrees QTc Int : 419 ms Atrial fibrillation with a competing junctional pacemaker Nonspecific ST and T wave abnormality Abnormal ECG Confirmed by NAM BUI, DAJAUN ([id number]), image editor DANIEL GARZA ([id number]) on 12/03/2022 10:45:24 AM Referred By: Confirmed By:LAVONNE BROWNING MD
[2022-11-27 09:41] LABS: Absolute Lymphocyte Count 0.42 X10^3/uL (0.83-4.51); Absolute Neutrophil Count 9.2 X10^3/uL (2.0-7.7); Basophil# 0.04 X10^3/uL; Basophil% 0.4 % (0-1); Eosinophil# 0.16 X10^3/uL; Eosinophils% 1.6 % (0-5); Hematocrit 27.9 % (40-54); Hemoglobin 8.4 g/dL (13.0-16.5); Lymphocyte # 0.42 X10^3/ul (0.83-4.51); Lymphocyte % 4.1 % (19-41); Mean Corp Hgb Conc 30.1 g/dL (32-36); Mean Corpuscular Hgb 27.5 pg (27.0-32.0); Mean Corpuscular Volume 91.5 fL (80-94); Mean Platelet Vol. 8.3 fl (6.2-12.0); Monocyte# 0.42 X10^3/uL; Monocyte% 4.1 % (0-10); NRBC Flagged by Analyzer 0 % (0-5); Neutrophil # 9.16 X10^3/uL (2.7-7.7); Neutrophil % 89.3 % (47-70); POSITIVE DIFFERENTIAL YES; Platelet Count 233 K/mm3 (150-450); RBC Distribution Width CV 17.9 % (11.6-14.6); RBC Distribution Width SD 58.8 fl (35.1-43.9); Red Blood Count 3.05 M/mm3 (4.6-6.2); White Blood Count 10.3 K/mm3 (4.4-11.0)
[2022-11-27] MEDS: 0.9% Normal Saline (500mL Bag) 500 ML 1000 ML IV (09:44)
[2022-11-27 09:55] LABS: Differential Indicated SCAN CRITERIA MET
--- NOTE | 2022-11-27 09:58 | RAD_ITS ---
STUDY: X-RAY CHEST REASON FOR EXAM: Male, 82 years old. Concern for sepsis TECHNIQUE: Single AP portable view of the chest. COMPARISON: Comparison is made with prior study dated November 01, 2022. FINDINGS: EKG electrodes are seen. Surgical clips are seen in the right axillary region. There is blunting of the left costophrenic angle. Mild left basilar atelectasis. Blunting of the right costophrenic angle. Sternal cerclage wires and vascular clips are present from a prior sternotomy and coronary artery bypass graft procedure (CABG). Prior coronary artery stenting. Normal mediastinum and marcela. Normal visualized pulmonary arteries. There is atherosclerotic tortuosity of the aortic arch and descending thoracic aorta. A stent is seen in the aortic arch. There are diffuse degenerative changes of the visualized thoracic spine. Normal visualized ribs, clavicles, and shoulders. There is no demonstrated abnormality of the visualized soft tissue structures of the upper abdomen. RAD/Chest 1 View (Portable) IMPRESSION: Blunting of the costophrenic angles with mild basilar atelectasis at the left lung base. Electronically Signed: Lokesh Smith MD at 11:05 EDT ,
[2022-11-27 10:03] LABS: ALB/GLOB Ratio 0.7 RATIO (0.9-2.4); AST(SGOT) 11 U/L (15-37); Alanine Aminotransfer ALT/SGPT 18 U/L (16-61); Albumin, Serum 3.3 g/dL (3.2-5.0); Alkaline Phosphatase 99 U/L (45-117); Anion Gap 4 (5-15); BUN 18 mg/dL (7-18); BUN/Creat Ratio 13.5 RATIO (10-20); Chloride 108 mmol/L (98-107); Creatinine, Serum 1.33 mg/dL (0.70-1.30); EST Glomerular Filtration Rate 55 mL/min (>60); Est Glom Filt Rate - Afr Amer 66 mL/min (>60); Estimated Creatinine Clearance 42.86 ml/min; Globulin 4.8 g/dL (2.2-4.2); Glucose 96 mg/dL (74-106); Lipase 27 U/L (13-75); Potassium 3.7 mmol/L (3.5-5.1); Protein, Total 8.1 g/dL (6.4-8.2); Sodium Level 141 mmol/L (136-145)
[2022-11-27 10:04] LABS: Bacteria 0 SEEN /hpf (None Seen); Mucous, Urine 0 SEEN /hpf (<or=2+); Red Blood Cells-Urine 0 SEEN /hpf (0-5); Squamous Epithelial Cells - UA 0 SEEN /hpf (0-5)
[2022-11-27 10:09] LABS: Differential Comment SCANNED
[2022-11-27] MEDS: Cefepime HCl 2 GM in 0.9% Normal Saline (100mL MB+) 100 ML IV (10:11)
[2022-11-27 10:28] LABS: Color, Urine Yellow (Yellow); Glucose, Dipstick Normal (Normal); Ketone-Dipstick Negative (Negative); Leukocyte Esterase-Dipstick 25 /ul (Negative); Nitrite-Dipstick Negative (Negative); Occult Blood-Urine 10 /ul (Negative); Protein-Dipstick 30 mg/dl (Negative); Specific Gravity, Urine 1.015 (1.002-1.030); Urine Bilirubin Dipstick Negative (Negative); Urine Clarity Clear (Clear); Urine Urobilinogen 1 mg/dl (Normal); Urine pH 6.5 (5.0 - 8.0)
[2022-11-27 10:39] LABS: Lactic Acid 1.3 mmol/L (0.4-1.9)
[2022-11-27 10:40] LABS: White Blood Cells 0-5 SEEN /hpf (0-5)
--- NOTE | 2022-11-27 11:05 | CM.ED ---
Social Work SW introduced self and role to patient and patient's , Lauryn. SW discussed advance directives with pt and . Pt reports they do not have a HCPOA or Living Will at this time. SW provided handout on advance directives. SW provided emotional support. Pt not currently interested in AD but will review and contact SW if needed. Peggy Grewal AIR CONTROL/[employer]I [employer] WARFARE OFFICER, [employer]NA HANDLER
[2022-11-27] MEDS: Vancomycin HCl 1,250 MG in 0.9% Normal Saline (250mL Bag) 250 ML 167 MG IV (11:10)
--- NOTE | 2022-11-27 11:19 | MRI_ITS ---
INDICATION: discitis, bacteremia EXAMINATION: MRI - MR Spine Lumbar W/ Contrast TECHNIQUE: Multiplanar and multisequence MR images of the lumbar spine. IV Contrast Dosage and Agent: 15 CC CLARISCAN COMPARISON: X-ray 10/05/2022. FINDINGS: VERTEBRAE: Vertebral body heights are preserved. Normal vertebral bodies and posterior elements. VERTEBRAL ALIGNMENT: No spondylolisthesis. There is preservation of the normal lumbar lordosis. CORD: Normal position and signal intensity of the conus medullaris. T12-L1: Normal disc height and morphology. Normal bilateral facet joints. Normal central canal. Normal bilateral lateral recesses. Normal intervertebral neural foramina. L1-2: Normal disc height and morphology. Normal bilateral facet joints. Normal central canal. Normal bilateral lateral recesses. Normal intervertebral neural foramina. L2-3: Disc dehydration. Mild, noncompressive spondylotic bar. Normal bilateral facet joints. Normal central canal. Normal bilateral lateral recesses. Mild left foraminal encroachment due to spurring. L3-4: Disc dehydration. Mild, noncompressive spondylotic bar. Moderate facet hypertrophy. Normal central canal. Normal bilateral lateral recesses. Normal intervertebral neural foramina. L4-5: Disc dehydration and mild disc space narrowing. Mild disc edema, no enhancement. Modic type I edematous endplate changes with enhancement. Mild, noncompressive spondylotic bar. No canal stenosis. Marked facet hypertrophy. Mild foraminal encroachment on the right due to spurring. L5-S1: Marked disc space narrowing. Normal bilateral facet joints. Normal central canal. Normal bilateral lateral recesses. Normal intervertebral neural foramina. SOFT TISSUES: Multiple right renal cysts. MRI/Spine Lumbar W/WO Contrast IMPRESSION: L4-5 disc edema, concerning for discitis. Modic type I endplate changes at L4-5 and correspond to symptoms of back pain. Electronically Signed: Sheridan Lewis MD at 16:47 EDT Reading Location ID and State: [id number] / Tel , Service support ,
[2022-11-27 12:12] VITALS: BMI 28.3
[2022-11-27 12:48] VITALS: BP 147/88; PULSE 74; RESP 16; TEMP 36.7; O2SAT 95
--- NOTE | 2022-11-27 14:16 | CON.PCM.ID_ITS ---
Assessment & Plan Assessment/Plan (1) History of tricuspid valve repair: (2) Hx of ascending aorta replacement: (3) Streptococcal bacteremia: PLAN: Recommend MRI L spine with contrast. Reviewed [facility] records, MRI in that system. Consult spine surgery. Cover with vanc/ceftriaxone q12h for now. Recent colonoscopy with removal tubular adenoma as possible source of this strep infection. Admitted in October with strep bacteremia as well. TTE pending, does have h/o valve replacement. Will follow, thank you, d/w ED and primary team (4) Osteomyelitis of lumbar spine: HPI Consult Data Date of Consult: 11/27/22 HPI Narrative Reason for Consultation: bacteremia HPI Narrative: DAYA HOLDEN, is a 82 M with h/o valve replacement, who presented 11/01/22 to [facility] with about 5 weeks R lower back pain, some chills, fatigue, intermittent abd pain. Was on trip to [place] around time sx started. Found to have strep infantarius bacteremia. NIYAH neg, bcx cleared rapidly, back pain not reproducible on exam, and CT abd/pelvis showed no changes in his back. Discharged by hospitalist on 7 days po keflex. Referred for outpt colonoscopy, done 11/14 and tubular adenoma removed. Followed up with PCP for continued back pain, and MRI in [facility] system showed possible lumbar osteo/discitis but not well visualized without contrast. PCP called ID, bcx done 11/26, now growing strep. Called him, sent to ED, started on vanc/ceftriaxone after dose of cefepime. Feeling ok, back pain mild, stable. No associated weakness. Some intermittent mild fever/chills as outpt. Full ROS performed and neg except as noted above. [facility] Medical History Acute hypotension Acute on chronic anemia Acute right-sided low back pain Aortic aneurysm Asthma Atherosclerotic heart disease of [place] coronary artery without angina pectoris Back pain Bacteremia BPH (benign prostatic hyperplasia) Cancer Angi esophagitis Cardiology follow-up encounter CPAP (continuous positive airway pressure) dependence Easy bruising Elevated serum creatinine Fatigue History of atrial fibrillation History of echocardiogram (~12/2015) History of edema History of GI bleed History of IBS History of left common carotid artery stent placement (~09/27/20) History of steroid therapy Hoarseness Hypertension Non-rheumatic mitral regurgitation Non-rheumatic tricuspid valve insufficiency Non-smoker Nonrheumatic mitral (valve) prolapse PARKER (obstructive sleep apnea) Postoperative atrial fibrillation Pure hypercholesterolemia Thoracic aortic aneurysm without rupture Weakness Wears glasses Home Medications aspirin 81 mg tablet,delayed release 81 mg PO QDAY SEE PCP 03/11/17 [History Last Taken Unknown] famotidine 20 mg tablet 40 mg PO QHS SEE PCP 06/21/19 [History Last Taken Unknown] ascorbic acid (vitamin C) 1,000 mg tablet 1 gm PO DAILY SUPPLEMENT 06/26/20 [History Last Taken Unknown] cholecalciferol (vitamin D3) 25 mcg (1,000 unit) tablet 25 mcg PO BID SUPPLEMEN 10/13/20 [History Last Taken Unknown] acetaminophen 325 mg tablet 650 mg PO Q6H PRN pain 10/20/20 [History Last Taken Unknown] losartan 50 mg tablet 50 mg PO DAILY #90 tabs 11/28/20 [Rx Last Taken 11/14/22] amlodipine 10 mg tablet 10 mg PO DAILY #90 tabs 01/17/22 [Rx Last Taken 11/13/22] cyanocobalamin (vitamin B-12) 1,000 mcg tablet 1,000 mcg PO DAILY SEE PCP 01/17/22 [History Last Taken Unknown] magnesium 200 mg tablet 200 mg PO DAILY SUPPLEMENT 01/17/22 [History Last Taken Unknown] tamsulosin 0.4 mg capsule 0.4 mg PO QHS SEE PCP 01/17/22 [History Last Taken Unknown] zinc acetate 25 mg (zinc) capsule 25 mg PO DAILY SEE PCP 01/17/22 [History Last Taken Unknown] ezetimibe 10 mg tablet (Zetia) 10 mg PO DAILY #90 tabs 01/30/22 [Rx Last Taken Unknown] coenzyme Q10 100 mg capsule 100 mg PO DAILY SUPPLEMENT 07/22/22 [History Last Taken Unknown] potassium chloride 20 mEq tablet,extended release 20 meq PO DAILY #90 tabs 10/16/22 [Rx Last Taken Unknown] apixaban 5 mg tablet (Eliquis) 5 mg PO BID #60 tabs 10/28/22 [Rx Last Taken Unknown] pantoprazole 40 mg tablet,delayed release (Protonix) 40 mg PO DAILY #30 tabs 11/05/22 [Rx Last Taken Unknown] amiodarone 200 mg tablet 200 mg PO BID #60 tabs 11/17/22 [Rx Last Taken 11/14/22] metoprolol tartrate 50 mg tablet 50 mg PO .qam #180 tabs 11/17/22 [Rx Last Taken 11/14/22] Allergy/AdvReac Type Severity Reaction Status Date / Time Ssflfce-DRJ-DaM Reductase AdvReac Severe intolerence Verified 11/27/22 09:13 Inhibitor [Heifnzk-Xjv-Wuz Reductase Inhibitor] hydrochlorothiazide AdvReac Intermediate unknown Verified 11/27/22 09:13 red yeast rice AdvReac Intermediate unknown Verified 11/27/22 09:13 Family History Mother Hypertension Father CAD (coronary artery disease) Hypertension Grandmother CAD (coronary artery disease) Surgical History H/O hemorrhoidectomy History of aortic valve replacement with bioprosthetic valve (~09/27/20) History of cardiac catheterization (~03/2003) History of tricuspid valve repair (~09/27/20) Hx of ascending aorta replacement (~09/27/20) Social History Smoking Status: Never smoker alcohol intake: never substance use type: does not use caffeine: Yes Type: coffee Number of servings: 5 Physical Exam Const alert, oriented x3 and no apparent distress General Appearance: cooperative HEENT normocephalic and head/scalp atraumatic Eyes PERRL and EOMs intact bilaterally Neck supple and No nodes Resp normal air movement and clear to auscultation bilaterally Cardio regular rate and regular rhythm Heart Sounds: murmur GI soft to palpation, non-tender and non-distended Extremity Extremity Narrative: No spine tenderness General Extremity: Negative for edema Skin no rashes or lesions noted Neuro CN's II-XII intact bilaterally Lab / Micro Data Attestation: I reviewed the patient's lab results. 11/27/22 09:34 11/27/22 09:34 Labs: Laboratory Results - last 24 hr 11/27/22 09:34: WBC 10.3, RBC 3.05 L, Hgb 8.4 L, Hct 27.9 L, MCV 91.5, MCH 27.5, MCHC 30.1 L, RDW Std Deviation 58.8 H, RDW Coeff of Duyen 17.9 H, Plt Count 233, MPV 8.3, Immature Gran % (Auto) 0.500, Neut % (Auto) 89.3 H, Lymph % (Auto) 4.1 L, [place] % (Auto) 4.1, Eos % (Auto) 1.6, Baso % (Auto) 0.4, Absolute Neuts (auto) 9.2 H, Absolute Lymphs (auto) 0.42 L, Nucleated RBC % 0, Differential Comment SCANNED, Sodium 141, Potassium 3.7, Chloride 108 H, Carbon Dioxide 29.0, Anion Gap 4 L, BUN 18, Creatinine 1.33 H, Estim Creat Clear Calc 42.86, Est GFR (MDRD) Af Amer 66, Est GFR (MDRD) Non-Af 55 L, BUN/Creatinine Ratio 13.5, Glucose 96, Calcium 9.0, Total Bilirubin 0.70, AST 11 L, ALT 18, Alkaline Phosphatase 99, Total Protein 8.1, Albumin 3.3, Globulin 4.8 H, Albumin/Globulin Ratio 0.7 L, Lipase 27 11/27/22 10:00: Urine Color Yellow, Urine Clarity Clear, Urine pH 6.5, Ur Specific [place] 1.015, Urine Protein 30 H, Urine Glucose (UA) Normal, Urine Ketones Negative, Urine Occult Blood 10 H, Urine Nitrite Negative, Urine Bilirubin Negative, Urine Urobilinogen 1 H, Ur Leukocyte Esterase 25 H, Urine RBC 0 SEEN, Urine WBC 0-5 SEEN, Ur Squamous Epith Cells 0 SEEN, Urine Bacteria 0 SEEN, Urine Mucus 0 SEEN 11/27/22 10:06: Lactic Acid 1.3 Micro: Microbiology 11/27/22 09:41 Nasal Secretion SARS-CoV-2 & FLU Antigen (Rapid) - Final Radiology Impression Chest X-Ray 11/27/22 09:58 IMPRESSION: Blunting of the costophrenic angles with mild basilar atelectasis at the left lung base. Electronically Signed: Lokesh Smith MD at 11:05 EDT ,
[2022-11-27 16:09] VITALS: BP 112/74; PULSE 73; RESP 16; TEMP 36.8; O2SAT 95
--- NOTE | 2022-11-27 16:51 | PCM.RX.CS ---
Consult Antibiotic Management Pharmacy has been consulted to manage selected antiobiotic: Vancomycin Type of Intervention Type of Consult: New start Suspected Infection Suspected Infection: Bacteremia Labs Labs: Sodium 141 mmol/L (136-145) 11/27/22 09:34 Potassium 3.7 mmol/L (3.5-5.1) 11/27/22 09:34 Chloride 108 mmol/L (98-107) H 11/27/22 09:34 Carbon Dioxide 29.0 mmol/L (21.0-32.0) 11/27/22 09:34 Anion Gap 4 (5-15) L 11/27/22 09:34 BUN 18 mg/dL (7-18) 11/27/22 09:34 Creatinine 1.33 mg/dL (0.70-1.30) H 11/27/22 09:34 Est GFR (MDRD) Af Amer 66 mL/min (>60) 11/27/22 09:34 Est GFR (MDRD) Non-Af 55 mL/min (>60) L 11/27/22 09:34 BUN/Creatinine Ratio 13.5 RATIO (10-20) 11/27/22 09:34 Glucose 96 mg/dL (74-106) 11/27/22 09:34 Microbiology Microbiology: Microbiology 11/27/22 09:41 Nasal Secretion SARS-CoV-2 & FLU Antigen (Rapid) - Final Goal Trough Goal Trough: 15-20 mcg/mL Pharmacy Plan for Drug Dosing Pharmacy Plan for Drug Dosing: NEW START IV VANCOMYCIN Consulting Physician: Dr. Mtz Indication: Bacteremia Goal Trough: 15-20 SrCr: 1.33 CrCl: 43 mL/min Comments: Vancomycin 1250mg IV x1 ordered and administered in ED 11/27/22 @1110 Vancomycin Dose: 500mg IV Q12hr to start 11/27/22 @2300 Pending Level: 11/28/22 @2230 Pharmacy Service will continue to monitor and adjust dosing as required.
--- NOTE | 2022-11-27 17:20 | ECHOD_ITS ---
Reason For Study: Bacteremia Procedure This was a 2D Doppler, Color Flow transthoracic echocardiogram. Exam performed portable in patient room. Left Ventricle Normal LV size. The estimated ejection fraction is 50-55 %. Unable to assess diastolic dysfunction. Septal hypokinesis. Right Ventricle Normal RV size. Normal systolic function. Atria The left atrium is severely enlarged. The right atrium is moderately enlarged. No doppler evidence for ASD. Mitral Valve There is no mitral valve stenosis. Mild (1+) mitral valve insufficiency. Tricuspid Valve There is no tricuspid stenosis. Unable to estimate RV systolic pressure due to inadequate jet, pulmonary artery pressure probably normal. Aortic Valve There is no aortic stenosis. No aortic valve insufficiency. Stable appearing bioprosthetic aortic valve apparatus. Pulmonic Valve There is no pulmonic valvular stenosis. Trivial pulmonic valve insufficiency. Great Vessels Normal aortic root. Pericardium/Pleural No pericardial effusion. MMode/2D Measurements & Calculations LVIDd: 4.7 cm IVSd: 1.2 cm LVOT diam: 2.0 cm LVIDs: 3.8 cm LVPWd: 1.0 cm LVOT area: 3.2 cm2 FS: 19.0 % Ao root diam: 3.3 cm LAV(MOD-bp): 89.6 ml LA A4 area: 26.7 cm2 LA dimension: 5.5 cm LAV(MOD-bp) Indexed: 45.2 ml/m2 LAV(MOD-sp2): 91.3 ml LAV(MOD-sp4): 84.2 ml TAPSE: 1.2 cm RA A4 area: 20.0 cm2 Doppler Measurements & Calculations MV E max kunal: 130.7 cm/sec Lat Peak E' Kunal: 13.6 cm/sec Med Peak E' Kunal: 9.2 cm/sec E/E' lat: 9.6 E/E' med: 14.3 MV V2 max: 146.2 cm/sec Ao V2 max: 199.4 cm/sec LV V1 max: 141.1 cm/sec MV max P.6 mmHg Ao max P.0 mmHg LV V1 max P.0 mmHg MV V2 mean: 57.2 cm/sec Ao V2 mean: 135.1 cm/sec LV V1 mean P.8 mmHg MV mean P.9 mmHg Ao mean P.5 mmHg LV V1 mean: 103.4 cm/sec MV V2 VTI: 27.4 cm Ao V2 VTI: 34.8 cm LV V1 VTI: 25.7 cm MVA(VTI): 3.0 cm2 AV (velocity ratio): 0.74 CECI(I,D): 2.4 cm2 CECI(V,D): 2.3 cm2 MR max kunal: 502.4 cm/sec SV(LVOT): 83.2 ml PA V2 max: 127.7 cm/sec MR max P.0 mmHg MR mean kunal: 401.3 cm/sec MR mean P.4 mmHg MR VTI: 141.2 cm ECHO/Echo Complete Interpretation Summary The estimated ejection fraction is 50-55 %. Unable to assess diastolic dysfunction. Septal hypokinesis The left atrium is severely enlarged. The right atrium is moderately enlarged. Mild (1+) mitral valve insufficiency. Ordering Physician: Harshal Mtz Performed By: Joseph Veliz RCS
--- NOTE | 2022-11-27 17:55 | CONS.ORTHO ---
HPI Consult Data Date of Consult: 11/27/22 HPI Narrative HPI Narrative: The patient is an 82-year-old male accompanied by his who contributed to the medical history. He is accompanied by his who contributed to the medical history. He is sitting up in bed resting comfortably. He states that he began to develop back pain about 2 months ago after a bout of fever and chills while they were in [place]. His pain continued to worsen. He presented to the ER today for evaluation. Image studies were performed which shows discitis. Infectious disease has been consulted and is managing antibiotics. The patient describes some pain in the lumbar region with activity but feels it is manageable. It is not limiting his mobilization or ambulation. He denies any fever chills nausea or vomiting. He denies any acute numbness tingling weakness or changes in bowel or bladder function. He denies any history of back surgeries or back injections [facility] Medical History Acute hypotension Acute on chronic anemia Acute right-sided low back pain Aortic aneurysm Asthma Atherosclerotic heart disease of [place] coronary artery without angina pectoris Back pain Bacteremia BPH (benign prostatic hyperplasia) Cancer Angi esophagitis Cardiology follow-up encounter CPAP (continuous positive airway pressure) dependence Easy bruising Elevated serum creatinine Fatigue History of atrial fibrillation History of echocardiogram (~12/2015) History of edema History of GI bleed History of IBS History of left common carotid artery stent placement (~09/27/20) History of steroid therapy Hoarseness Hypertension Non-rheumatic mitral regurgitation Non-rheumatic tricuspid valve insufficiency Non-smoker Nonrheumatic mitral (valve) prolapse PARKER (obstructive sleep apnea) Postoperative atrial fibrillation Pure hypercholesterolemia Thoracic aortic aneurysm without rupture Weakness Wears glasses Home Medications aspirin 81 mg tablet,delayed release 81 mg PO QDAY SEE PCP 03/11/17 [History Last Taken Unknown] famotidine 20 mg tablet 40 mg PO QHS SEE PCP 06/21/19 [History Last Taken Unknown] ascorbic acid (vitamin C) 1,000 mg tablet 1 gm PO DAILY SUPPLEMENT 06/26/20 [History Last Taken Unknown] cholecalciferol (vitamin D3) 25 mcg (1,000 unit) tablet 25 mcg PO BID SUPPLEMEN 10/13/20 [History Last Taken Unknown] acetaminophen 325 mg tablet 650 mg PO Q6H PRN pain 10/20/20 [History Last Taken Unknown] losartan 50 mg tablet 50 mg PO DAILY #90 tabs 11/28/20 [Rx Last Taken 11/14/22] amlodipine 10 mg tablet 10 mg PO DAILY #90 tabs 01/17/22 [Rx Last Taken 11/13/22] cyanocobalamin (vitamin B-12) 1,000 mcg tablet 1,000 mcg PO DAILY SEE PCP 01/17/22 [History Last Taken Unknown] magnesium 200 mg tablet 200 mg PO DAILY SUPPLEMENT 01/17/22 [History Last Taken Unknown] tamsulosin 0.4 mg capsule 0.4 mg PO QHS SEE PCP 01/17/22 [History Last Taken Unknown] zinc acetate 25 mg (zinc) capsule 25 mg PO DAILY SEE PCP 01/17/22 [History Last Taken Unknown] ezetimibe 10 mg tablet (Zetia) 10 mg PO DAILY #90 tabs 01/30/22 [Rx Last Taken Unknown] coenzyme Q10 100 mg capsule 100 mg PO DAILY SUPPLEMENT 07/22/22 [History Last Taken Unknown] potassium chloride 20 mEq tablet,extended release 20 meq PO DAILY #90 tabs 10/16/22 [Rx Last Taken Unknown] apixaban 5 mg tablet (Eliquis) 5 mg PO BID #60 tabs 10/28/22 [Rx Last Taken Unknown] pantoprazole 40 mg tablet,delayed release (Protonix) 40 mg PO DAILY #30 tabs 11/05/22 [Rx Last Taken Unknown] amiodarone 200 mg tablet 200 mg PO BID #60 tabs 11/17/22 [Rx Last Taken 11/14/22] metoprolol tartrate 50 mg tablet 50 mg PO .qam #180 tabs 11/17/22 [Rx Last Taken 11/14/22] Allergy/AdvReac Type Severity Reaction Status Date / Time Cylrrmp-CWL-EbT Reductase AdvReac Severe intolerence Verified 11/27/22 09:13 Inhibitor [Izvbzjt-Yaa-Zai Reductase Inhibitor] hydrochlorothiazide AdvReac Intermediate unknown Verified 11/27/22 09:13 red yeast rice AdvReac Intermediate unknown Verified 11/27/22 09:13 Family History Mother Hypertension Father CAD (coronary artery disease) Hypertension Grandmother CAD (coronary artery disease) Surgical History H/O hemorrhoidectomy History of aortic valve replacement with bioprosthetic valve (~09/27/20) History of cardiac catheterization (~03/2003) History of tricuspid valve repair (~09/27/20) Hx of ascending aorta replacement (~09/27/20) Social History Smoking Status: Never smoker alcohol intake: never substance use type: does not use caffeine: Yes Type: coffee Number of servings: 5 Vital Signs Vital Signs Vital Signs: 11/27/22 09:13 11/27/22 10:13 11/27/22 12:48 Temperature 97.6 F L 98.1 F Temperature Source Temporal Oral Pulse Rate 105 H 74 Respiratory Rate 14 16 Respiratory Effort Normal Non-Labored Respiratory Depth Respiratory Pattern Normal Blood Pressure 95/59 L 147/88 H Blood Pressure Mean 71 107 Blood Pressure Source Monitor Blood Pressure Position Semi-Fowlers Blood Pressure Location Right Arm Pulse Ox 98 95 Oxygen Delivery Method Room Air Room Air 11/27/22 12:12 11/27/22 16:09 Temperature 98.2 F Temperature Source Oral Pulse Rate 73 Respiratory Rate 16 Respiratory Effort Normal Non-Labored Respiratory Depth Normal Respiratory Pattern Normal Blood Pressure 112/74 Blood Pressure Mean 86 Blood Pressure Source Monitor Blood Pressure Position Semi-Fowlers Blood Pressure Location Right Arm Pulse Ox 95 Oxygen Delivery Method Room Air Room Air Weight Weight: 186 lb 1.6 oz Body Mass Index (BMI) 28.3 Physical Exam Const alert, oriented x3 and no apparent distress General Appearance: cooperative, comfortable and well kempt Neck full ROM General: normal visual inspection Resp normal respiratory effort and normal air movement Effort and Inspection: able to speak in complete sentences Cardio regular rate, regular rhythm and peripheral pulses 2+ throughout GI soft to palpation, non-tender and non-distended Back/Spine Back/Spine Narrative: No tenderness of the cervical thoracic or lumbar spine. The patient was able to stand and ambulate under his own power and walks with a normal gait. Thoracic Spine / Upper Back: normal to inspection Lumbar Spine / Lower Back: normal to inspection Extremity normal to inspection, full ROM, normal capillary refill, no clubbing, cyanosis or edema and no calf tenderness Neuro oriented x3, CN's II-XII intact bilaterally, moves all extremities, no focal motor deficits, no sensory deficits noted and deep tendon reflexes 2+ bilaterally Motor Exam: strength 5/5 throughout and muscle tone normal throughout Lab / Micro Data 11/27/22 09:34 11/27/22 09:34 Labs: Laboratory Results - last 24 hr 11/27/22 09:34: WBC 10.3, RBC 3.05 L, Hgb 8.4 L, Hct 27.9 L, MCV 91.5, MCH 27.5, MCHC 30.1 L, RDW Std Deviation 58.8 H, RDW Coeff of Duyen 17.9 H, Plt Count 233, MPV 8.3, Immature Gran % (Auto) 0.500, Neut % (Auto) 89.3 H, Lymph % (Auto) 4.1 L, [place] % (Auto) 4.1, Eos % (Auto) 1.6, Baso % (Auto) 0.4, Absolute Neuts (auto) 9.2 H, Absolute Lymphs (auto) 0.42 L, Nucleated RBC % 0, Differential Comment SCANNED, Sodium 141, Potassium 3.7, Chloride 108 H, Carbon Dioxide 29.0, Anion Gap 4 L, BUN 18, Creatinine 1.33 H, Estim Creat Clear Calc 42.86, Est GFR (MDRD) Af Amer 66, Est GFR (MDRD) Non-Af 55 L, BUN/Creatinine Ratio 13.5, Glucose 96, Calcium 9.0, Total Bilirubin 0.70, AST 11 L, ALT 18, Alkaline Phosphatase 99, Total Protein 8.1, Albumin 3.3, Globulin 4.8 H, Albumin/Globulin Ratio 0.7 L, Lipase 27 11/27/22 10:00: Urine Color Yellow, Urine Clarity Clear, Urine pH 6.5, Ur Specific [place] 1.015, Urine Protein 30 H, Urine Glucose (UA) Normal, Urine Ketones Negative, Urine Occult Blood 10 H, Urine Nitrite Negative, Urine Bilirubin Negative, Urine Urobilinogen 1 H, Ur Leukocyte Esterase 25 H, Urine RBC 0 SEEN, Urine WBC 0-5 SEEN, Ur Squamous Epith Cells 0 SEEN, Urine Bacteria 0 SEEN, Urine Mucus 0 SEEN 11/27/22 10:06: Lactic Acid 1.3 Micro: Microbiology 11/27/22 09:41 Nasal Secretion SARS-CoV-2 & FLU Antigen (Rapid) - Final Radiology Impression Chest X-Ray 11/27/22 09:58 IMPRESSION: Blunting of the costophrenic angles with mild basilar atelectasis at the left lung base. Electronically Signed: Lokesh Smith MD at 11:05 EDT , Lumbar Spine MRI 11/27/22 11:19 IMPRESSION: L4-5 disc edema, concerning for discitis. Modic type I endplate changes at L4-5 and correspond to symptoms of back pain. Electronically Signed: Sheridan Lewis MD at 16:47 EDT Reading Location ID and State: [id number] / Tel , Service support , Assessment & Plan Assessment/Plan (1) Discitis of lumbar region: PLAN: I had a lengthy discussion with the patient. I reviewed his imaging with him. MRI of the lumbar spine dated 11/27/2022 was reviewed. The radiologist has commented on discitis of the L4-5 disc. I do not recommend surgery at this time. I recommend continued antibiotic management per infectious disease. Pain control and activity as tolerated. The patient can follow-up with me in clinic after discharge for any further neck or back issues. He understands and agrees with the treatment plan
--- NOTE | 2022-11-27 19:12 | PCM.HP.STD ---
HPI - General General Date of Admission: 11/27/22 Date of Service: 11/27/22 Chief Complaint: Bacteremia HPI Narrative DAYA HOLDEN, is a 82 M who presents to the emergency room at [facility] after being instructed to go there by his infectious disease physician, patient had imaging studies done recently which showed discitis in his lumbar spine on an outpatient MRI obtained by the [facility], he was referred to Dr. Mnotoya who virginie blood cultures on the patient which resulted in being positive for strep which is not strep pneumoniae. Patient was in the hospital recently for a GI bleed and at that time his blood cultures were positive for strep and he was treated, the etiology of the strep was not ascertained at that time. Patient has since undergone a colonoscopy as an outpatient approximately 2 weeks ago, this did not show any evidence of cancer or acute bleeding. Patient states that he has had repeat GI bleeding however when he went back on his Eliquis and he is now off his Eliquis and aspirin. Work-up in the emergency room today included a CBC which showed a normal white blood cell count, patient's hemoglobin was 8.4, chemistry profile was remarkable for creatinine of 1.33, urinalysis was unremarkable. Patient was admitted to [facility] for bacteremia secondary to lumbar discitis, he was seen in consultation by infectious diseases, an MRI of the patient's lumbar spine was ordered, orthopedic surgery was consulted to see the patient, he will receive IV antibiotics and get an echocardiogram performed tomorrow. [facility] Medical History Acute hypotension Acute on chronic anemia Acute right-sided low back pain Aortic aneurysm Asthma Atherosclerotic heart disease of [place] coronary artery without angina pectoris Back pain Bacteremia BPH (benign prostatic hyperplasia) Cancer Angi esophagitis Cardiology follow-up encounter CPAP (continuous positive airway pressure) dependence Easy bruising Elevated serum creatinine Fatigue History of atrial fibrillation History of echocardiogram (~12/2015) History of edema History of GI bleed History of IBS History of left common carotid artery stent placement (~09/27/20) History of steroid therapy Hoarseness Hypertension Non-rheumatic mitral regurgitation Non-rheumatic tricuspid valve insufficiency Non-smoker Nonrheumatic mitral (valve) prolapse PARKER (obstructive sleep apnea) Postoperative atrial fibrillation Pure hypercholesterolemia Thoracic aortic aneurysm without rupture Weakness Wears glasses Home Medications aspirin 81 mg tablet,delayed release 81 mg PO QDAY SEE PCP 01/02/18 [History Last Taken Unknown] famotidine 20 mg tablet 40 mg PO QHS SEE PCP 06/21/19 [History Last Taken Unknown] ascorbic acid (vitamin C) 1,000 mg tablet 1 gm PO DAILY SUPPLEMENT 06/26/20 [History Last Taken Unknown] cholecalciferol (vitamin D3) 25 mcg (1,000 unit) tablet 25 mcg PO BID SUPPLEMEN 10/13/20 [History Last Taken Unknown] acetaminophen 325 mg tablet 650 mg PO Q6H PRN pain 10/20/20 [History Last Taken Unknown] losartan 50 mg tablet 50 mg PO DAILY #90 tabs 11/28/20 [Rx Last Taken 11/14/22] amlodipine 10 mg tablet 10 mg PO DAILY #90 tabs 01/17/22 [Rx Last Taken 11/13/22] cyanocobalamin (vitamin B-12) 1,000 mcg tablet 1,000 mcg PO DAILY SEE PCP 01/17/22 [History Last Taken Unknown] magnesium 200 mg tablet 200 mg PO DAILY SUPPLEMENT 01/17/22 [History Last Taken Unknown] tamsulosin 0.4 mg capsule 0.4 mg PO QHS SEE PCP 01/17/22 [History Last Taken Unknown] zinc acetate 25 mg (zinc) capsule 25 mg PO DAILY SEE PCP 01/17/22 [History Last Taken Unknown] ezetimibe 10 mg tablet (Zetia) 10 mg PO DAILY #90 tabs 01/30/22 [Rx Last Taken Unknown] coenzyme Q10 100 mg capsule 100 mg PO DAILY SUPPLEMENT 07/22/22 [History Last Taken Unknown] potassium chloride 20 mEq tablet,extended release 20 meq PO DAILY #90 tabs 10/16/22 [Rx Last Taken Unknown] apixaban 5 mg tablet (Eliquis) 5 mg PO BID #60 tabs 10/28/22 [Rx Last Taken Unknown] pantoprazole 40 mg tablet,delayed release (Protonix) 40 mg PO DAILY #30 tabs 11/05/22 [Rx Last Taken Unknown] amiodarone 200 mg tablet 200 mg PO BID #60 tabs 11/17/22 [Rx Last Taken 11/14/22] metoprolol tartrate 50 mg tablet 50 mg PO .qam #180 tabs 11/17/22 [Rx Last Taken 11/14/22] Allergy/AdvReac Type Severity Reaction Status Date / Time [id number]-[id number] Reductase AdvReac Severe intolerence Verified 11/27/22 09:13 Inhibitor [Rcclacs-Fis-Sst Reductase Inhibitor] hydrochlorothiazide AdvReac Intermediate unknown Verified 11/27/22 09:13 red yeast rice AdvReac Intermediate unknown Verified 11/27/22 09:13 Family History Mother Hypertension Father CAD (coronary artery disease) Hypertension Grandmother CAD (coronary artery disease) Surgical History H/O hemorrhoidectomy History of aortic valve replacement with bioprosthetic valve (~09/27/20) History of cardiac catheterization (~03/2003) History of tricuspid valve repair (~09/27/20) Hx of ascending aorta replacement (~09/27/20) Social History Smoking Status: Never smoker alcohol intake: never substance use type: does not use caffeine: Yes Type: coffee Number of servings: 5 ROS Constitutional Constitutional: Denies anorexia, change in weight, chills, fatigue, fever(s), malaise, night sweats or weakness Eyes Eyes: Denies blurry vision, change in vision, discharge from eye(s) or eye pain Cardiovascular Cardiovascular: Denies chest pain, claudication, edema or palpitations Respiratory/Chest Respiratory/Chest: Denies cough, hemoptysis, shortness of breath at rest or shortness of breath with exertion Gastrointestinal Gastrointestinal: Denies abdominal pain, constipation, diarrhea, hematemesis, hematochezia, melena, nausea or vomiting Genitourinary Genitourinary: Denies dysuria, hematuria, urinary frequency, urinary hesitancy, urinary incontinence or urinary urgency Musculoskeletal Musculoskeletal: Reports back pain; Denies joint pain, joint stiffness, joint swelling, myalgias or neck pain Neurologic Neurologic: Denies abnormal gait, abnormal speech, dizziness, focal weakness, headache(s), loss of vision, numbness, other visual disturbances, paresthesias, syncope or tingling Psychiatric Psychiatric: Denies anxiety, cognitive impairment, depression, irritability, mood swings or suicidal ideation Endocrine Endocrinology: Denies change in body appearance, cold intolerance, excessive sweating, heat intolerance, polydipsia or polyuria Hematologic/Lymphatic Hematologic/Lymphatic: Denies none, anemia, easy bleeding, easy bruising or lymphadenopathy Allergic/Immunologic Allergic/Immunologic: Denies rhinitis, urticaria, eczemia or asthma Vital Signs Vital Signs Vital Signs: 11/27/22 09:13 11/27/22 10:13 11/27/22 12:48 Temperature 97.6 F L 98.1 F Temperature Source Temporal Oral Pulse Rate 105 H 74 Respiratory Rate 14 16 Respiratory Effort Normal Non-Labored Respiratory Depth Respiratory Pattern Normal Blood Pressure 95/59 L 147/88 H Blood Pressure Mean 71 107 Blood Pressure Source Monitor Blood Pressure Position Semi-Fowlers Blood Pressure Location Right Arm Pulse Ox 98 95 Oxygen Delivery Method Room Air Room Air 11/27/22 12:12 11/27/22 16:09 Temperature 98.2 F Temperature Source Oral Pulse Rate 73 Respiratory Rate 16 Respiratory Effort Normal Non-Labored Respiratory Depth Normal Respiratory Pattern Normal Blood Pressure 112/74 Blood Pressure Mean 86 Blood Pressure Source Monitor Blood Pressure Position Semi-Fowlers Blood Pressure Location Right Arm Pulse Ox 95 Oxygen Delivery Method Room Air Room Air Weight Weight: 84.414 kg Body Mass Index (BMI) 28.3 Physical Exam Const alert, oriented x3, no apparent distress and average body habitus Constitutional Narrative: Patient appears his stated age General Appearance: cooperative, well kempt and well developed Orientation / Consciousness: awake, oriented to person, oriented to place and oriented to time HEENT normocephalic, head/scalp atraumatic, hearing grossly normal bilaterally and moist oral mucous membranes Eyes PERRL, EOMs intact bilaterally and conjunctivae normal Neck supple, no JVD, thyroid normal and no carotid bruits General: trachea midline Resp normal respiratory effort, no retractions, no use of accessory muscles and clear to auscultation bilaterally Auscultation: Negative for rales, rhonchi or wheezes Cardio S1 normal heart sound, S2 normal heart sound, no murmurs, no rub and no gallops Cardio Narrative: Heart rate and rhythm is irregular GI normal to inspection, nondistended, normoactive bowel sounds, soft to palpation, non-tender and non-distended Extremity no clubbing, cyanosis or edema Skin no rashes or lesions noted General Skin Exam: no breakdown Neuro oriented x3, CN's II-XII intact bilaterally, moves all extremities, no focal motor deficits and no sensory deficits noted Sensorium / Orientation: awake, alert, oriented to person, oriented to place and oriented to time Speech: speech normal Psych affect normal Results Lab / Micro Data 11/27/22 09:34 11/27/22 09:34 Labs: Laboratory Results - last 24 hr 11/27/22 09:34: WBC 10.3, RBC 3.05 L, Hgb 8.4 L, Hct 27.9 L, MCV 91.5, MCH 27.5, MCHC 30.1 L, RDW Std Deviation 58.8 H, RDW Coeff of [place]uy[place] 17.9 H, Plt Count 233, MPV 8.3, Immature Gran % (Auto) 0.500, Neut % (Auto) 89.3 H, Lymph % (Auto) 4.1 L, [place] % (Auto) 4.1, Eos % (Auto) 1.6, Baso % (Auto) 0.4, Absolute Neuts (auto) 9.2 H, Absolute Lymphs (auto) 0.42 L, Nucleated RBC % 0, Differential Comment SCANNED, Sodium 141, Potassium 3.7, Chloride 108 H, Carbon Dioxide 29.0, Anion Gap 4 L, BUN 18, Creatinine 1.33 H, Estim Creat Clear Calc 42.86, Est GFR (MDRD) Af Amer 66, Est GFR (MDRD) Non-Af 55 L, BUN/Creatinine Ratio 13.5, Glucose 96, Calcium 9.0, Total Bilirubin 0.70, AST 11 L, ALT 18, Alkaline Phosphatase 99, Total Protein 8.1, Albumin 3.3, Globulin 4.8 H, Albumin/Globulin Ratio 0.7 L, Lipase 27 11/27/22 10:00: Urine Color Yellow, Urine Clarity Clear, Urine pH 6.5, Ur Specific [place] 1.015, Urine Protein 30 H, Urine Glucose (UA) Normal, Urine Ketones Negative, Urine Occult Blood 10 H, Urine Nitrite Negative, Urine Bilirubin Negative, Urine Urobilinogen 1 H, Ur Leukocyte Esterase 25 H, Urine RBC 0 SEEN, Urine WBC 0-5 SEEN, Ur Squamous Epith Cells 0 SEEN, Urine Bacteria 0 SEEN, Urine Mucus 0 SEEN 11/27/22 10:06: Lactic Acid 1.3 Micro: Microbiology 11/27/22 09:41 Nasal Secretion SARS-CoV-2 & FLU Antigen (Rapid) - Final Radiology Impression Chest X-Ray 11/27/22 09:58 IMPRESSION: Blunting of the costophrenic angles with mild basilar atelectasis at the left lung base. Electronically Signed: Lokesh Smith MD at 11:05 EDT , Lumbar Spine MRI 11/27/22 11:19 IMPRESSION: L4-5 disc edema, concerning for discitis. Modic type I endplate changes at L4-5 and correspond to symptoms of back pain. Electronically Signed: Sheridan Lewis MD at 16:47 EDT , Assessment & Plan Assessment/Plan (1) Discitis of lumbar region: PLAN: Plan 1. Discitis of the lumbar spine-patient was admitted, he underwent an MRI of the lumbar spine today which showed evidence of discitis at L4-5, he was seen in consultation by orthopedic surgery and infectious diseases, no surgery is planned for the patient at this time according to orthopedic surgery. Patient will receive IV Rocephin and vancomycin, echocardiogram will be obtained. #2 bacteremia from Streptococcus secondary to discitis of the lumbar spine-again patient is on Rocephin and vancomycin #3 chronic paroxysmal atrial fibrillation-patient is not on any anticoagulation due to recent GI bleeding, he is also off aspirin at this time. Patient remains on amiodarone and metoprolol #4 history of valvular heart disease with bioprosthetic aortic heart valve-patient will have an echocardiogram performed tomorrow to rule out endocarditis #5 chronic anemia secondary to recent GI blood loss-patient does not require transfusion at this time, CBC will be monitored #6 essential hypertension-patient will remain on his outpatient medications #7 BPH-patient is on Flomax Total clinical time spent by myself addressing patient's medical issues, reviewing all of his data, and collaborating with patient's care team: 75-minute Charges/Coding Visit Charges Inpatient E&M: 02184 Init Hosp L3
[2022-11-27 20:15] VITALS: BP 120/75; PULSE 85; RESP 16; RESP 18; TEMP 37; O2SAT 95
[2022-11-27 21:04] VITALS: PULSE 86
[2022-11-27] MEDS: Tamsulosin HCl 0.4 MG Capsule PO (21:04)
[2022-11-27] MEDS: Metoprolol Tartrate 50 MG Tablet 25 MG PO (21:04)
[2022-11-27] MEDS: 0.9% Saline Lock 10 ML Syringe IV (21:05)
[2022-11-27] MEDS: Ceftriaxone 2 GM in 0.9% Normal Saline (50mL MB+) 50 ML IV (21:05)
[2022-11-27] MEDS: Cholecalciferol (VIT D3) 25 MCG TABLET (1,000 UNITS) PO (21:05)
[2022-11-27] MEDS: Vancomycin IV 500 MG/100 ML BAG 100 MG IV (22:48)
[2022-11-28] VITALS (8 sets, daily range): BP systolic 107–133; BP diastolic 72–80; PULSE 66–89; RESP 14–18; TEMP 36.3–37.1; O2SAT 93–97
[2022-11-28 06:27] LABS: Absolute Lymphocyte Count 0.64 X10^3/uL (0.83-4.51); Absolute Neutrophil Count 9.2 X10^3/uL (2.0-7.7); Basophil# 0.03 X10^3/uL; Basophil% 0.3 % (0-1); Eosinophil# 0.22 X10^3/uL; Eosinophils% 2.1 % (0-5); Hematocrit 25.6 % (40-54); Hemoglobin 7.5 g/dL (13.0-16.5); Lymphocyte # 0.64 X10^3/ul (0.83-4.51); Mean Corp Hgb Conc 29.3 g/dL (32-36); Mean Corpuscular Hgb 26.5 pg (27.0-32.0); Mean Corpuscular Volume 90.5 fL (80-94); Mean Platelet Vol. 8.8 fl (6.2-12.0); Monocyte# 0.45 X10^3/uL; Monocyte% 4.2 % (0-10); NRBC Flagged by Analyzer 0 % (0-5); Neutrophil # 9.23 X10^3/uL (2.7-7.7); Neutrophil % 86.9 % (47-70); Platelet Count 230 K/mm3 (150-450); RBC Distribution Width CV 17.8 % (11.6-14.6); RBC Distribution Width SD 58.4 fl (35.1-43.9); Red Blood Count 2.83 M/mm3 (4.6-6.2); White Blood Count 10.6 K/mm3 (4.4-11.0)
[2022-11-28 07:08] LABS: Anion Gap 5 (5-15); BUN 16 mg/dL (7-18); BUN/Creat Ratio 14.3 RATIO (10-20); Calcium,Total 8.3 mg/dL (8.5-10.1); Chloride 109 mmol/L (98-107); Creatinine, Serum 1.12 mg/dL (0.70-1.30); EST Glomerular Filtration Rate 67 mL/min (>60); Est Glom Filt Rate - Afr Amer 81 mL/min (>60); Estimated Creatinine Clearance 50.89 ml/min; Glucose 97 mg/dL (74-106); Potassium 3.6 mmol/L (3.5-5.1); Sodium Level 140 mmol/L (136-145)
--- NOTE | 2022-11-28 08:02 | PCM.PN.HOSP ---
Reason for Visit Reason for Visit: Diagnoses Unspecified streptococcus as the cause of diseases classified elsewhere (11/27/22) Osteomyelitis of vertebra, lumbar region (11/27/22) Discitis, unspecified, lumbar region (11/27/22) Bacteremia (11/27/22) Presence of other vascular implants and grafts (11/27/22) Other specified postprocedural states (11/27/22) Objective Data Objective Data Vital Signs: Vital Signs Temp Pulse Resp BP Pulse Ox O2 Del Method 97.8 F 66 18 133/79 H 93 Room Air 11/28/22 02:11 11/28/22 02:11 11/28/22 02:11 11/28/22 02:11 11/28/22 02:11 11/28/22 02:11 Oxygen Delivery Method Room Air Weight: 186 lb 1.6 oz Body Mass Index (BMI) 28.3 Intake & Output: Intake and Output for Last 24 Hours 11/26/22 11/27/22 11/28/22 23:59 23:59 23:59 Intake Total 1218.33 / 1218.33 400 / 400 Output Total 200 / 200 600 / 600 Balance 1018.33 / 1018.33 -200 / -200 Lab / Micro Data 11/28/22 05:33 11/28/22 05:33 Labs: Laboratory Results - last 24 hr 11/27/22 09:34: WBC 10.3, RBC 3.05 L, Hgb 8.4 L, Hct 27.9 L, MCV 91.5, MCH 27.5, MCHC 30.1 L, RDW Std Deviation 58.8 H, RDW Coeff of Duyen 17.9 H, Plt Count 233, MPV 8.3, Immature Gran % (Auto) 0.500, Neut % (Auto) 89.3 H, Lymph % (Auto) 4.1 L, [place] % (Auto) 4.1, Eos % (Auto) 1.6, Baso % (Auto) 0.4, Absolute Neuts (auto) 9.2 H, Absolute Lymphs (auto) 0.42 L, Nucleated RBC % 0, Differential Comment SCANNED, Sodium 141, Potassium 3.7, Chloride 108 H, Carbon Dioxide 29.0, Anion Gap 4 L, BUN 18, Creatinine 1.33 H, Estim Creat Clear Calc 42.86, Est GFR (MDRD) Af Amer 66, Est GFR (MDRD) Non-Af 55 L, BUN/Creatinine Ratio 13.5, Glucose 96, Calcium 9.0, Total Bilirubin 0.70, AST 11 L, ALT 18, Alkaline Phosphatase 99, Total Protein 8.1, Albumin 3.3, Globulin 4.8 H, Albumin/Globulin Ratio 0.7 L, Lipase 27 11/27/22 10:00: Urine Color Yellow, Urine Clarity Clear, Urine pH 6.5, Ur Specific [place] 1.015, Urine Protein 30 H, Urine Glucose (UA) Normal, Urine Ketones Negative, Urine Occult Blood 10 H, Urine Nitrite Negative, Urine Bilirubin Negative, Urine Urobilinogen 1 H, Ur Leukocyte Esterase 25 H, Urine RBC 0 SEEN, Urine WBC 0-5 SEEN, Ur Squamous Epith Cells 0 SEEN, Urine Bacteria 0 SEEN, Urine Mucus 0 SEEN 11/27/22 10:06: Lactic Acid 1.3 11/28/22 05:33: WBC 10.6, RBC 2.83 L, Hgb 7.5 L, Hct 25.6 L, MCV 90.5, MCH 26.5 L, MCHC 29.3 L, RDW Std Deviation 58.4 H, RDW Coeff of [place] 17.8 H, Plt Count 230, MPV 8.8, Immature Gran % (Auto) 0.500, Neut % (Auto) 86.9 H, Lymph % (Auto) 6.0 L, [place] % (Auto) 4.2, Eos % (Auto) 2.1, Baso % (Auto) 0.3, Absolute Neuts (auto) 9.2 H, Absolute Lymphs (auto) 0.64 L, Nucleated RBC % 0, Sodium 140, Potassium 3.6, Chloride 109 H, Carbon Dioxide 26.0, Anion Gap 5, BUN 16, Creatinine 1.12, Estim Creat Clear Calc 50.89, Est GFR (MDRD) Af Amer 81, Est GFR (MDRD) Non-Af 67, BUN/Creatinine Ratio 14.3, Glucose 97, Calcium 8.3 L Micro: Microbiology 11/27/22 09:34 Blood Culture (Wb) - Venous Blood Culture - Preliminary 11/27/22 09:50 Blood Culture (Wb) - Venous Blood Culture - Preliminary 11/27/22 09:41 Nasal Secretion SARS-CoV-2 & FLU Antigen (Rapid) - Final Radiography Diagnostic Testing: Radiology Impression Chest X-Ray 11/27/22 09:58 IMPRESSION: Blunting of the costophrenic angles with mild basilar atelectasis at the left lung base. Lumbar Spine MRI 11/27/22 11:19 IMPRESSION: L4-5 disc edema, concerning for discitis. Modic type I endplate changes at L4-5 and correspond to symptoms of back pain. Electronically Signed: Sheridan Lewis MD at 16:47 EDT Reading Location ID and State: [id number] / Tel , Service support , Physical Exam Narrative Patient is stated he had mild soreness of the back about 6 to 8 weeks which got progressively worse but could not stand up or walk for admitted. 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 His back pain is better. Physical exam General: Alert, Oriented x3, Cooperative HEENT: Atraumatic, PERRLA, EOMI, Normocephalic Oral: Oral mucosa moist. No Gingival or Mucosal Lesions/ Ulcerations Neck: Supple, No JVD, Negative Carotid Bruits Lungs: Air entry diminished in bilateral lung bases. No crepitation/rhonchi Cardiovascular: Regular rate, Regular Rhythm, Normal S1, Normal S2, systolic murmur over right second ICS, LLSB and cardiac apex. No radiation to axilla. Open heart surgery scar Abdomen: Bowel Sounds Present, Soft, Non Tender, Non-Distended : No renal angle tenderness. No suprapubic tenderness. Extremities: No edema, Capillary Refill Less than 3 Seconds Skin: No rashes, No breakdown Musculoskeletal: No Tenderness to Palpation of Joints or Extremities. ROM intact. Spine: Mild tenderness over lumbar spine mainly L4-L5. Mild paravertebral muscle tenderness on right side. Neurological: Cranial nerves II-XII grossly intact, DTR 2+/4. No acute focal neurological deficit. Psych/Mental Status: Normal Affect, Appropriate. Assessment & Plan Assessment/Plan (1) Discitis of lumbar region: PLAN: Plan 1. Discitis of the lumbar spine-patient was admitted, he underwent an MRI of the lumbar spine today which showed evidence of discitis at L4-5. ID and spine surgeon were consulted. Patient will receive IV Rocephin and vancomycin, echocardiogram will be obtained. 11/28: ID follow-up appreciated. Recommended repeat NIYAH as patient had strep bacteremia in October 2022. History of EVD placement. Spine surgeon Dr. Bui does not recommend surgery. Pain control activity and follow-up in the clinic. #2 bacteremia from Streptococcus secondary to discitis of the lumbar spine-: Preliminary blood culture and bacterial detection so was strep not staph. Continue Rocephin and vancomycin. During previous admission in October 2022 patient had alphahemolytic strep bacteremia.Patient had NIYAH on 11/04/2022 and this was communicated to Dr. Montoya but he wants repeat as the duration of antibiotic treatment depends on NIYAH. NIYAH at that time shows LA severely enlarged right atrium moderately enlarged, no vegetation on mitral valve. No mitral stenosis. Mild MR. No tricuspid valve vegetation. No aortic valve vegetation. #3 chronic paroxysmal atrial fibrillation-patient is not on any anticoagulation due to recent GI bleeding, he is also off aspirin at this time. Patient remains on amiodarone and metoprolol. 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 Patient had EGD and colonoscopy in October 2022. EGD 11/03/2022: Impression: - Esophageal plaques were found, suspicious for candidiasis. Biopsied. 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 Treated with a heater probe. - Normal second portion of the duodenum. Recommendation: - Resume previous diet. - Use Protonix (pantoprazole) 40 mg PO daily. - Nystatin suspension 100,000 units PO QID for 1 week. - Continue present medications. Colonoscopy on 11/14/2022. Impression: - Diverticulosis in the recto-sigmoid colon, in the sigmoid colon and in the descending colon. Fluid aspiration performed. - The examination was otherwise normal on direct and retroflexion views. Recommendation: - Discharge patient to home. - Resume previous diet. - Continue present medications. Repeat colonoscopy is not recommended. #6 essential hypertension-patient will remain on his outpatient medications #7 BPH-patient is on Flomax Clinical Impression(s) from Imaging Studies Chest X-Ray 11/27/22 09:58 IMPRESSION: Blunting of the costophrenic angles with mild basilar atelectasis at the left lung base. Electronically Signed: Lokesh Smith MD at 11:05 EDT , Lumbar Spine MRI 11/27/22 11:19 IMPRESSION: L4-5 disc edema, concerning for discitis. Modic type I endplate changes at L4-5 and correspond to symptoms of back pain. Charges/Coding Visit Charges Inpatient E&M: 80416 Subs Hosp L2
[2022-11-28] MEDS: Potassium Chloride Oral Tablet 20 MEQ PO (08:56)
[2022-11-28] MEDS: Metoprolol Tartrate 50 MG Tablet PO (08:56)
[2022-11-28] MEDS: amLODIPine 10 MG Tablet PO (08:57)
[2022-11-28] MEDS: Magnesium Chloride 64 MG Delay Rel.Tablet 128 MG PO (08:57)
[2022-11-28] MEDS: Amiodarone 200 MG Tablet PO (08:57)
[2022-11-28] MEDS: Losartan Potassium 50 MG Tablet PO (08:57)
[2022-11-28] MEDS: Cyanocobalamin 500 MCG Tablet 1000 MCG PO (08:58)
[2022-11-28] MEDS: Ezetimibe 10 MG Tablet PO (08:58)
[2022-11-28] MEDS: Pantoprazole Sodium 40 MG Tablet PO (08:58)
[2022-11-28] MEDS: Ascorbic Acid 500 MG Tablet 1000 MG PO (08:58)
[2022-11-28] MEDS: Cholecalciferol (VIT D3) 25 MCG TABLET (1,000 UNITS) PO ×2 (08:58→20:30)
[2022-11-28] MEDS: Ceftriaxone 2 GM in 0.9% Normal Saline (50mL MB+) 50 ML IV ×2 (10:02→20:31)
--- NOTE | 2022-11-28 10:52 | PCM.PN.ID ---
Physical Exam Narrative No fever, pain in back a little better Const alert and no apparent distress General Appearance: cooperative Resp normal air movement and clear to auscultation bilaterally Cardio regular rate and regular rhythm GI soft to palpation, non-tender and non-distended Skin no rashes or lesions noted ID ID: Route of nutrition/ use of supplements: [] Nutritional Intake: [] IV Site: [] [place] Catheter: [] Assessment & Plan Assessment/Plan (1) History of tricuspid valve repair: (2) Hx of ascending aorta replacement: (3) Streptococcal bacteremia: PLAN: Discitis seen on MRI L spine with contrast. Reviewed [facility] records, MRI in that system. Seen by spine surgery. Cover with vanc/ceftriaxone q12h for now. Recent colonoscopy with removal tubular adenoma as possible source of this strep infection. Admitted in October with strep bacteremia as well. Recommend NIYAH, does have h/o valve replacement. Will follow, d/w primary team (4) Osteomyelitis of lumbar spine:
[2022-11-28] MEDS: Vancomycin IV 500 MG/100 ML BAG 100 MG IV (11:13)
--- NOTE | 2022-11-28 13:27 | ECHOTEE_ITS ---
Reason For Study: Bacteremia Medication NIYAH probe 6VT-D (SN [id number]) passed without difficulty. No complications were noted. [id number] gargled and swallowed. Versed 1 mg given slow IVP. Fentanyl 25 mcg given slow IVP. Left Ventricle Normal LV size. The estimated ejection fraction is 55 %. No regional wall motion abnormalities noted. Right Ventricle Normal RV size. Normal systolic function. Atria No doppler evidence for ASD. The left atrium is severely enlarged. The right atrium is moderately enlarged. Mitral Valve There is no vegetation seen on the mitral valve. There is no mitral valve stenosis. Mild (1+) mitral valve insufficiency. Tricuspid Valve No vegetations identified. There is no tricuspid stenosis. Aortic Valve There is no aortic valvular vegetation. There is no aortic stenosis. No aortic valve insufficiency. Stable appearing bioprosthetic aortic valve apparatus. ECHO/Echo Transesophageal (NIYAH) Interpretation Summary The estimated ejection fraction is 55 %. The left atrium is severely enlarged. The right atrium is moderately enlarged. Mild (1+) mitral valve insufficiency. No vegetations visualized Ordering Physician: Carlitos Koch Referring Physician: Rosemarie Samaniego Performed By: aPm Medrano, RDKODY
--- NOTE | 2022-11-28 14:00 | CHAPLAIN ---
Type of Pastoral Visit _x__ Initial Visit ___ Follow-up Visit ___ On-call Visit ___ General Patient Visit ___ Spiritual Assessment ___ Family Conference ___ Bereavement ___ Rapid Response ___ Code Blue ___ Other (describe below) Pastoral Care Referral From _x__ Patient ___ Family ___ Nurse ___ Physician ___ Supply Chain Systems Manager ___ Patient Scheduling Manager ___ Other (describe below) Sacrament/Intervention _x__ Active listening ___ Anointing ___ Yarsanism ___ Bereavement ___ Communion ___ Daisy exploration ___ ___ Life review _x__ Prayer ___ Reconciliation ___ Sacrament of Sick _x__ Supportive presence ___ Wedding ___ Other (describe below) Pastoral Comments patient is welcoming; he has family members in the room; pt describes the situation and that he is now getting treatment that should help so he feels better; pt is welcoming of prayer and spiritual care; no other needs
--- NOTE | 2022-11-28 16:21 | CASEMGMT ---
ALEXANDRA CM Readmission Note Previous Admission:? 11/01/22-11/05/22 Diagnosis:?afib with RVR, hypotension, acute on chronic anemia, bacteremia?? DC Disposition: Home Current Admission? Current Diagnosis: bacteremia, lumbar discitis Pt presents to ER sent in by ID for positive blood cx. Pt dx with discitis, seen by ortho with no OR recommendations at this time. ID c/s with continuing of vancomycin and ceftriaxone and NIYAH. Pt had recent colonoscopy which could be source of strep. ALEXANDRA PICKERING to follow for dc planning needs.
[2022-11-28] MEDS: 0.9% Saline Lock 10 ML Syringe IV (20:30)
[2022-11-28] MEDS: Metoprolol Tartrate 50 MG Tablet 25 MG PO (20:30)
[2022-11-28] MEDS: Tamsulosin HCl 0.4 MG Capsule PO (20:30)
[2022-11-28 23:06] LABS: Vancomycin, Trough Level 10.9 ug/mL (5.0-15.0)
[2022-11-28] MEDS: Vancomycin HCl 750 MG in 0.9% Normal Saline (250mL Bag) 250 ML 250 MG IV (23:41)
--- NOTE | 2022-11-28 23:59 | PCM.RX.CS ---
Consult Antibiotic Management Pharmacy has been consulted to manage selected antiobiotic: Vancomycin Type of Intervention Type of Consult: Follow-up Labs Labs: Sodium 140 mmol/L (136-145) 11/28/22 05:33 Potassium 3.6 mmol/L (3.5-5.1) 11/28/22 05:33 Chloride 109 mmol/L (98-107) H 11/28/22 05:33 Carbon Dioxide 26.0 mmol/L (21.0-32.0) 11/28/22 05:33 Anion Gap 5 (5-15) 11/28/22 05:33 BUN 16 mg/dL (7-18) 11/28/22 05:33 Creatinine 1.12 mg/dL (0.70-1.30) 11/28/22 05:33 Est GFR (MDRD) Af Amer 81 mL/min (>60) 11/28/22 05:33 Est GFR (MDRD) Non-Af 67 mL/min (>60) 11/28/22 05:33 BUN/Creatinine Ratio 14.3 RATIO (10-20) 11/28/22 05:33 Glucose 97 mg/dL (74-106) 11/28/22 05:33 Vancomycin Trough 10.9 ug/mL (5.0-15.0) 11/28/22 22:00 Microbiology Microbiology: Microbiology 11/27/22 09:50 Blood Culture (Wb) - Venous Blood Culture - Preliminary Alpha Hemolytic Streptococcus 11/27/22 09:34 Blood Culture (Wb) - Venous Blood Culture - Preliminary Alpha Hemolytic Streptococcus 11/27/22 10:00 Urine, Clean Catch Urine Culture - Preliminary GPC Poss Enterococcus sp 11/27/22 09:41 Nasal Secretion SARS-CoV-2 & FLU Antigen (Rapid) - Final Goal Trough Goal Trough: 15-20 mcg/mL Pharmacy Plan for Drug Dosing Pharmacy Plan for Drug Dosing: Pharmacy Service will continue to monitor and adjust dosing as required. TROUGH 10.9 @ 11.5 HRS. INCREASE TO 750MG Q12H AND FOLLOW UP TROUGH PRIOR TO 4TH DOSE Follow-Up Labs Follow-Up Labs: Trough: Vancomycin Date/Time Labs Ordered Labs to be done on [date and time ordered]: 11/30 @ 1100
[2022-11-29] VITALS (7 sets, daily range): BP systolic 118–146; BP diastolic 76–85; PULSE 75–85; RESP 16–18; TEMP 36.6–36.8; O2SAT 95
[2022-11-29 06:15] LABS: Absolute Lymphocyte Count 0.72 X10^3/uL (0.83-4.51); Basophil# 0.05 X10^3/uL; Basophil% 0.4 % (0-1); Eosinophil# 0.27 X10^3/uL; Eosinophils% 2.3 % (0-5); Hematocrit 27.4 % (40-54); Hemoglobin 8.4 g/dL (13.0-16.5); Lymphocyte # 0.72 X10^3/ul (0.83-4.51); Lymphocyte % 6.2 % (19-41); Mean Corp Hgb Conc 30.7 g/dL (32-36); Mean Corpuscular Hgb 27.7 pg (27.0-32.0); Mean Corpuscular Volume 90.4 fL (80-94); Mean Platelet Vol. 8.5 fl (6.2-12.0); Monocyte% 4.3 % (0-10); NRBC Flagged by Analyzer 0 % (0-5); Neutrophil # 10.01 X10^3/uL (2.7-7.7); Neutrophil % 86.4 % (47-70); Platelet Count 247 K/mm3 (150-450); RBC Distribution Width CV 17.7 % (11.6-14.6); RBC Distribution Width SD 57.4 fl (35.1-43.9); Red Blood Count 3.03 M/mm3 (4.6-6.2); White Blood Count 11.6 K/mm3 (4.4-11.0)
[2022-11-29 06:52] LABS: Anion Gap 3 (5-15); BUN 13 mg/dL (7-18); BUN/Creat Ratio 12.3 RATIO (10-20); Calcium,Total 8.6 mg/dL (8.5-10.1); Chloride 106 mmol/L (98-107); Creatinine, Serum 1.06 mg/dL (0.70-1.30); EST Glomerular Filtration Rate 71 mL/min (>60); Est Glom Filt Rate - Afr Amer 86 mL/min (>60); Estimated Creatinine Clearance 53.77 ml/min; Glucose 101 mg/dL (74-106); Potassium 3.4 mmol/L (3.5-5.1); Sodium Level 138 mmol/L (136-145)
[2022-11-29] MEDS: Ceftriaxone 2 GM in 0.9% Normal Saline (50mL MB+) 50 ML IV ×2 (11:32→22:21)
[2022-11-29] MEDS: amLODIPine 10 MG Tablet PO (11:34)
[2022-11-29] MEDS: Magnesium Chloride 64 MG Delay Rel.Tablet 128 MG PO (11:34)
[2022-11-29] MEDS: Ascorbic Acid 500 MG Tablet 1000 MG PO (11:35)
[2022-11-29] MEDS: Pantoprazole Sodium 40 MG Tablet PO (11:35)
[2022-11-29] MEDS: Ezetimibe 10 MG Tablet PO (11:35)
[2022-11-29] MEDS: Cyanocobalamin 500 MCG Tablet 1000 MCG PO (11:35)
[2022-11-29] MEDS: Amiodarone 200 MG Tablet PO (11:35)
[2022-11-29] MEDS: Metoprolol Tartrate 50 MG Tablet PO (11:35)
[2022-11-29] MEDS: Losartan Potassium 50 MG Tablet PO (11:35)
[2022-11-29] MEDS: Cholecalciferol (VIT D3) 25 MCG TABLET (1,000 UNITS) PO ×2 (11:35→22:21)
[2022-11-29] MEDS: Potassium Chloride Oral Tablet 20 MEQ PO (11:35)
[2022-11-29] MEDS: Vancomycin HCl 750 MG in 0.9% Normal Saline (250mL Bag) 250 ML 250 MG IV (12:37)
--- NOTE | 2022-11-29 14:35 | CASEMGMT ---
ALEXANDRA PICKERING notified that pt needs IV atb. ALEXANDRA PICKERING into pt room, pt present. Pt states he had followed up with PCP since last hospital stay on Friday. Pt states he was taking his medications as ordered. Discussed the IV atb and provided options for administration of this. Pt states he walks without a device, drives and would be interested in the option for the outpt infusion. Discussed with pt and where this is located and that he will come to the hospital on weekends. ALEXANDRA Leigh made aware for set up. Pt and deny further needs at this time.
--- NOTE | 2022-11-29 14:45 | CASEMGMT ---
Addendum entered by Lu Brown 11/29/22 16:14: ALEXANDRA PICKERING it to updated patient regarding schedule and instructions for outpatient Infusion clinic. Patient and voiced understanding. Patient and denied further needs. Patient and had no further questions or concerns. Original Note: ALEXANDRA PICKERING notified that patient will need IV ATBs. Patient prefers to go to [facility] Outpatient infusion clinic. Script received and referral sent to [facility] Outpatient Infusion Clinic. Per hospitalist patient will discharge tomorrow. First outpatient treatment scheduled for Friday at 10. Infusion clinic provided instructions for patient. CM will continue to follow this patient and plan for a safe discharge.
--- NOTE | 2022-11-29 14:56 | PCM.PN.ID ---
Physical Exam Narrative Feeling fine, back pain stable, no fever Const alert and no apparent distress General Appearance: cooperative Resp normal air movement and clear to auscultation bilaterally Cardio regular rate and regular rhythm GI soft to palpation, non-tender and non-distended Skin no rashes or lesions noted ID ID: Route of nutrition/ use of supplements: [] Nutritional Intake: [] IV Site: [] [place]ll[place] Catheter: [] Assessment & Plan Assessment/Plan (1) History of tricuspid valve repair: (2) Hx of ascending aorta replacement: (3) Streptococcal bacteremia: PLAN: Discitis seen on MRI L spine with contrast. Reviewed [facility] records, MRI in that system. Seen by spine surgery. Recent colonoscopy with removal tubular adenoma as possible source of this strep infection. Admitted in October with strep bacteremia as well. No veg seen on NIYAH, does have h/o valve replacement. Will order picc and 6 weeks iv ceftriaxone, ID followup in 2 weeks. Will follow, d/w primary team and case management (4) Osteomyelitis of lumbar spine:
--- NOTE | 2022-11-29 16:44 | PCM.PN.HOSP ---
Reason for Visit Reason for Visit: Diagnoses Unspecified streptococcus as the cause of diseases classified elsewhere (11/27/22) Osteomyelitis of vertebra, lumbar region (11/27/22) Discitis, unspecified, lumbar region (11/27/22) Bacteremia (11/27/22) Presence of other vascular implants and grafts (11/27/22) Other specified postprocedural states (11/27/22) Objective Data Objective Data Vital Signs: Vital Signs Temp Pulse Resp BP Pulse Ox O2 Del Method 98.0 F 76 18 146/76 H 95 Room Air 11/29/22 15:42 11/29/22 15:42 11/29/22 15:42 11/29/22 15:42 11/29/22 15:42 11/29/22 15:42 Oxygen Delivery Method Room Air Weight: 186 lb 1.616 oz Body Mass Index (BMI) 28.3 Intake & Output: Intake and Output for Last 24 Hours 11/27/22 11/28/22 11/29/22 23:59 23:59 23:59 Intake Total 1218.33 / 1218.33 1640 / 1640 980 / 980 Output Total 200 / 200 600 / 600 560 / 560 Balance 1018.33 / 1018.33 1040 / 1040 420 / 420 Lab / Micro Data 11/29/22 05:50 11/29/22 05:50 Labs: Laboratory Results - last 24 hr 11/28/22 22:00: Vancomycin Trough 10.9 11/29/22 05:50: WBC 11.6 H, RBC 3.03 L, Hgb 8.4 L, Hct 27.4 L, MCV 90.4, MCH 27.7, MCHC 30.7 L, RDW Std Deviation 57.4 H, RDW Coeff of Duyen 17.7 H, Plt Count 247, MPV 8.5, Immature Gran % (Auto) 0.400, Neut % (Auto) 86.4 H, Lymph % (Auto) 6.2 L, Smyth % (Auto) 4.3, Eos % (Auto) 2.3, Baso % (Auto) 0.4, Absolute Neuts (auto) 10.0 H, Absolute Lymphs (auto) 0.72 L, Nucleated RBC % 0, Sodium 138, Potassium 3.4 L, Chloride 106, Carbon Dioxide 29.0, Anion Gap 3 L, BUN 13, Creatinine 1.06, Estim Creat Clear Calc 53.77, Est GFR (MDRD) Af Amer 86, Est GFR (MDRD) Non-Af 71, BUN/Creatinine Ratio 12.3, Glucose 101, Calcium 8.6 Micro: Microbiology 11/27/22 10:00 Urine, Clean Catch Urine Culture - Final GPC Poss Enterococcus sp 11/27/22 09:50 Blood Culture (Wb) - Venous Blood Culture - Preliminary Alpha Hemolytic Streptococcus 11/27/22 09:34 Blood Culture (Wb) - Venous Blood Culture - Preliminary Alpha Hemolytic Streptococcus 11/27/22 09:41 Nasal Secretion SARS-CoV-2 & FLU Antigen (Rapid) - Final Radiography Diagnostic Testing: Radiology Impression Transesophageal Echocardiogram 11/28/22 13:27 Interpretation Summary The estimated ejection fraction is 55 %. The left atrium is severely enlarged. The right atrium is moderately enlarged. Mild (1+) mitral valve insufficiency. No vegetations visualized Ordering Physician: Carlitos Koch Referring Physician: Rosemarie Samaniego Performed By: Pam Medrano KODY Physical Exam Narrative Patient did not had any symptoms. Had NIYAH today Patient is stated he had mild soreness of the back about 6 to 8 weeks which got progressively worse but could not stand up or walk for admitted. 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 His back pain is better. Physical exam General: Alert, Oriented x3, Cooperative HEENT: Atraumatic, PERRLA, EOMI, Normocephalic Oral: Oral mucosa moist. No Gingival or Mucosal Lesions/ Ulcerations Neck: Supple, No JVD, Negative Carotid Bruits Lungs: Air entry diminished in bilateral lung bases. No crepitation/rhonchi Cardiovascular: Regular rate, Regular Rhythm, Normal S1, Normal S2, systolic murmur over right second ICS, LLSB and cardiac apex. No radiation to axilla. Open heart surgery scar Abdomen: Bowel Sounds Present, Soft, Non Tender, Non-Distended : No renal angle tenderness. No suprapubic tenderness. Extremities: No edema, Capillary Refill Less than 3 Seconds Skin: No rashes, No breakdown. No Janeway lesion or osler's node Musculoskeletal: No Tenderness to Palpation of Joints or Extremities. ROM intact. Spine: Mild tenderness over lumbar spine mainly L4-L5. Mild paravertebral muscle tenderness on right side. Neurological: Cranial nerves II-XII grossly intact, DTR 2+/4. No acute focal neurological deficit. Psych/Mental Status: Normal Affect, Appropriate. Assessment & Plan Assessment/Plan (1) Discitis of lumbar region: PLAN: Plan 1. Osteomyelitis/discitis of the lumbar spine-patient was admitted, he underwent an MRI of the lumbar spine today which showed evidence of discitis at L4-5. ID and spine surgeon were consulted. Patient will receive IV Rocephin and vancomycin, echocardiogram will be obtained. 11/28: ID follow-up appreciated. Recommended repeat NIYAH as patient had strep bacteremia in October 2022. History of EVD placement. Spine surgeon Dr. Bui does not recommend surgery. Pain control activity and follow-up in the clinic. 11/29: NIYAH reported no vegetation on the mitral valve, no mitral stenosis. Mild mitral insufficiency. Tricuspid valve no vegetation identified. No aortic valvular vegetation no aortic stenosis or insufficiency. Stable appearing bioprosthetic aortic valve apparatus. Cardiac 2D echo yesterday also showed EF 55% #2 bacteremia from Streptococcus secondary to discitis of the lumbar spine-: Preliminary blood culture and bacterial detection so was strep not staph. Continue Rocephin and vancomycin. During previous admission in October 2022 patient had alphahemolytic strep bacteremia.Patient had NIYAH on 11/04/2022 and this was communicated to Dr. Montoya but he wants repeat as the duration of antibiotic treatment depends on NIYAH. NIYAH at that time shows LA severely enlarged right atrium moderately enlarged, no vegetation on mitral valve. No mitral stenosis. Mild MR. No tricuspid valve vegetation. No aortic valve vegetation. PICC line is ordered by ID. 6 weeks of IV ceftriaxone. ID follow 2 weeks. #3 chronic paroxysmal atrial fibrillation-patient is not on any anticoagulation due to recent GI bleeding, he is also off aspirin at this time. Patient remains on amiodarone and metoprolol. 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 Patient had EGD and colonoscopy in October 2022. EGD 11/03/2022: Impression: - Esophageal plaques were found, suspicious for candidiasis. Biopsied. 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 Treated with a heater probe. - Normal second portion of the duodenum. Recommendation: - Resume previous diet. - Use Protonix (pantoprazole) 40 mg PO daily. - Nystatin suspension 100,000 units PO QID for 1 week. - Continue present medications. Colonoscopy on 11/14/2022. Impression: - Diverticulosis in the recto-sigmoid colon, in the sigmoid colon and in the descending colon. Fluid aspiration performed. - The examination was otherwise normal on direct and retroflexion views. Recommendation: - Discharge patient to home. - Resume previous diet. - Continue present medications. Repeat colonoscopy is not recommended. #6 essential hypertension-patient will remain on his outpatient medications #7 BPH-patient is on Flomax Clinical Impression(s) from Imaging Studies Chest X-Ray 11/27/22 09:58 IMPRESSION: Blunting of the costophrenic angles with mild basilar atelectasis at the left lung base. Electronically Signed: Lokesh Smith MD at 11:05 EDT , Lumbar Spine MRI 11/27/22 11:19 IMPRESSION: L4-5 disc edema, concerning for discitis. Modic type I endplate changes at L4-5 and correspond to symptoms of back pain. Charges/Coding Visit Charges Inpatient E&M: 37527 Subs Hosp L2
--- NOTE | 2022-11-29 20:55 | RAD_ITS ---
STUDY: X-RAY CHEST REASON FOR EXAM: Male, 82 years old. Picc line insertion TECHNIQUE: AP portable COMPARISON: November 27, 2022 FINDINGS: Mild subsegmental atelectasis or infiltrate in the left lower lobe. There is no demonstrated pleural abnormality. Postop change status post median sternotomy, aortic valve replacement and aortic graft placement Normal size heart. Normal mediastinum and marcela. Normal visualized pulmonary arteries. Tortuous aortic arch and descending thoracic aorta. Normal visualized thoracic spine. Normal visualized ribs, clavicles, and shoulders. PICC line has been placed on the left with tip in the distal superior vena cava There is no demonstrated abnormality of the visualized soft tissue structures of the upper abdomen. . RAD/Chest 1 View (Portable) IMPRESSION: Mild left lower lobe atelectasis or infiltrate status post PICC line placement which terminates in the distal superior vena cava Electronically Signed: Eric Cheema MD at 21:48 EDT ,
[2022-11-29] MEDS: Metoprolol Tartrate 50 MG Tablet 25 MG PO (22:14)
[2022-11-29] MEDS: Tamsulosin HCl 0.4 MG Capsule PO (22:14)
[2022-11-30 08:44] LABS: Absolute Lymphocyte Count 0.53 X10^3/uL (0.83-4.51); Absolute Neutrophil Count 8.2 X10^3/uL (2.0-7.7); Basophil# 0.03 X10^3/uL; Basophil% 0.3 % (0-1); Eosinophil# 0.21 X10^3/uL; Eosinophils% 2.2 % (0-5); Hematocrit 26.3 % (40-54); Hemoglobin 7.9 g/dL (13.0-16.5); Lymphocyte # 0.53 X10^3/ul (0.83-4.51); Lymphocyte % 5.6 % (19-41); Mean Corpuscular Volume 89.8 fL (80-94); Mean Platelet Vol. 8.6 fl (6.2-12.0); Monocyte# 0.46 X10^3/uL; Monocyte% 4.9 % (0-10); NRBC Flagged by Analyzer 0 % (0-5); Neutrophil # 8.19 X10^3/uL (2.7-7.7); Neutrophil % 86.6 % (47-70); POSITIVE DIFFERENTIAL YES; Platelet Count 232 K/mm3 (150-450); RBC Distribution Width CV 17.7 % (11.6-14.6); Red Blood Count 2.93 M/mm3 (4.6-6.2); White Blood Count 9.5 K/mm3 (4.4-11.0)
[2022-11-30 08:56] LABS: Differential Indicated SCAN CRITERIA MET
[2022-11-30 09:02] LABS: Anion Gap 6 (5-15); BUN 13 mg/dL (7-18); BUN/Creat Ratio 13.1 RATIO (10-20); Calcium,Total 8.5 mg/dL (8.5-10.1); Chloride 108 mmol/L (98-107); Creatinine, Serum 0.99 mg/dL (0.70-1.30); EST Glomerular Filtration Rate 77 mL/min (>60); Est Glom Filt Rate - Afr Amer 93 mL/min (>60); Estimated Creatinine Clearance 57.58 ml/min; Glucose 102 mg/dL (74-106); Potassium 3.4 mmol/L (3.5-5.1); Sodium Level 139 mmol/L (136-145)
[2022-11-30 09:21] VITALS: BP 110/79; PULSE 97; RESP 16; TEMP 36.2; O2SAT 96
[2022-11-30] MEDS: Ascorbic Acid 500 MG Tablet 1000 MG PO (09:23)
[2022-11-30] MEDS: Ezetimibe 10 MG Tablet PO (09:23)
[2022-11-30] MEDS: Cholecalciferol (VIT D3) 25 MCG TABLET (1,000 UNITS) PO (09:23)
[2022-11-30] MEDS: Magnesium Chloride 64 MG Delay Rel.Tablet 128 MG PO (09:23)
[2022-11-30] MEDS: Cyanocobalamin 500 MCG Tablet 1000 MCG PO (09:24)
[2022-11-30] MEDS: Potassium Chloride Oral Tablet 20 MEQ PO (09:24)
[2022-11-30] MEDS: Amiodarone 200 MG Tablet PO (09:24)
[2022-11-30 09:25] VITALS: PULSE 97
[2022-11-30] MEDS: Losartan Potassium 50 MG Tablet PO (09:25)
[2022-11-30] MEDS: Metoprolol Tartrate 50 MG Tablet PO (09:25)
[2022-11-30] MEDS: Pantoprazole Sodium 40 MG Tablet PO (09:26)
[2022-11-30] MEDS: amLODIPine 10 MG Tablet PO (09:26)
[2022-11-30] MEDS: Ceftriaxone 2 GM in 0.9% Normal Saline (50mL MB+) 50 ML IV (09:34)
[2022-11-30 09:47] LABS: Differential Comment SCANNED
--- NOTE | 2022-11-30 09:49 | PCM.DC ---
Discharge Instructions Diet Discharge Diet: No restrictions Activity Discharge Activity: Return to Normal Activity Weight Bearing Status: Weight bearing as tolerated Dressing / Incision Call your doctor if you observe: Fever of 101 or Higher, Coldness, Increased Pain, Numbness or Tingling, Change in Color, Inability to urinate, Inability to have a bowel movement, Shortness of breath, Dizziness, Fainting spells, Swelling in the ankles, Chest pain, Prolonged hiccupping, Increased palpitations (irregular heartbeat) and Calf discomfort Follow Up Care When: IN 2 WEEKS Test Results: Test results from this visit will be discussed in further detail at your follow-up appointment, if applicable. Discharge Plan Admission Admit Date/Time: 11/27/22 10:59 Primary Reason for Your Visit: Lumbar discitis/osteomyelitis. Attending Provider: Carlitos Koch Primary Care Provider: Rosemarie Samaniego Consulting Providers: Morteza Montoya; Eric Collins; Harshal Mtz Discharge Orders/Prescriptions Prescriptions: New ceftriaxone 2 gram recon soln 2 g IV Q24H 39 Days Rx Instructions: dx: lumber discitis stop date 01/08/23 weekly bmp, cbc, and esr. fax to [phone] ferrous sulfate 325 mg (65 mg iron) tablet 325 mg PO QODAY Qty: 30 2RF ascorbic acid (vitamin C) 500 mg tablet 500 mg PO BID Qty: 60 2RF Continued famotidine 20 mg tablet 40 mg PO QHS ascorbic acid (vitamin C) 1,000 mg tablet 1 gm PO DAILY acetaminophen 325 mg tablet 650 mg PO Q6H PRN (Reason: pain) tamsulosin 0.4 mg capsule 0.4 mg PO QHS cyanocobalamin (vitamin B-12) 1,000 mcg tablet 1,000 mcg PO DAILY magnesium 200 mg tablet 200 mg PO DAILY zinc acetate 25 mg (zinc) capsule 25 mg PO DAILY amlodipine 10 mg tablet 10 mg PO DAILY Qty: 90 3RF Hold Instructions: Order Changed coenzyme Q10 100 mg capsule 100 mg PO DAILY Patient Comments: TAKE 1 CAPSULE BY MOUTH ONCE DAILY amiodarone 200 mg Tablet 200 mg PO BID Qty: 60 0RF Rx Instructions: 1 twice daily for 7 days starting 9/10, then 1 daily thereafter metoprolol tartrate 50 mg tablet 50 mg PO .qam Qty: 180 0RF Rx Instructions: 50mg ev AM, 25mg ev night pantoprazole [Protonix] 40 mg tablet,delayed release (DR/EC) 40 mg PO DAILY Qty: 30 0RF cholecalciferol (vitamin D3) 25 mcg (1,000 unit) tablet 25 mcg PO BID losartan 50 mg tablet 50 mg PO DAILY Qty: 90 3RF ezetimibe [Zetia] 10 mg tablet 10 mg PO DAILY Qty: 90 3RF potassium chloride 20 mEq tablet extended release 20 meq PO DAILY Qty: 90 3RF Eliquis 5 mg tablet 5 mg PO BID Qty: 60 11RF Hold Instructions: GI BLEED Held aspirin 81 mg tablet,delayed release (DR/EC) 81 mg PO QDAY Hold Instructions: Hold baby aspirin and patient has severe anemia and already on Eliquis. Referrals / Follow Up: [facility], Infusion Clinic [Other] (Patient to come to main entrance on Friday at 10am as instructed. Will be seen in infusion clinic on Friday at 1030) Rosemarie Samaniego MD [Primary Care Provider] - Eric Collins DO [Med Staff - Active Staff] - Within 2 Weeks (for lumbar back/discitis/osteo) Morteza Montoya MD [Med Staff - Active Staff] - Within 1 Week (For history of lumbar discitis, PICC line on IV ceftriaxone.) Disposition Disposition (needs filled in before D/C Order can be placed): Home, Self Care
--- NOTE | 2022-11-30 11:18 | PCM.DC.SUM ---
Providers Date of Admission: 11/27/22 Date of Discharge: 11/30/22 Primary Care Physician: Dr. Rosemarie Samaniego MD Consultations 11/27/22 12:07 Consult: Infectious Disease Routine Consulting Provider: Morteza Montoya Reason for Consult: bacteremia EMERGENT Consult: No Notified: Yes Date Notified: 11/27/22 Time Notified: 11:13 Method of Notification: Verbal Consult: Orthopedics Routine Consulting Provider: Eric Collins Reason for Consult: discitis EMERGENT Consult: No Notified: Yes Date Notified: 11/27/22 Time Notified: 11:14 Method of Notification: Verbal Reason For Visit: BACTEREMIA, LUMBAR DISCITIS Diagnosis Discharge Diagnosis (1) Discitis of lumbar region: Status: Acute Code(s): M46.46 - Discitis, unspecified, lumbar region Plan Patient was admitted with mild soreness of the back about 6 to 8 weeks which got progressively worse but could not stand up or walk therefore admitted in PCU. 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 1. Osteomyelitis/discitis of the lumbar spine-patient was admitted, he underwent an MRI of the lumbar spine today which showed evidence of discitis at L4-5. ID and spine surgeon were consulted. Patient will receive IV Rocephin and vancomycin, echocardiogram will be obtained. 11/28: ID follow-up appreciated. Recommended repeat NIYAH as patient had strep bacteremia in October 2022. History of EVD placement. Spine surgeon Dr. Bui does not recommend surgery. Pain control activity and follow-up in the clinic. 11/29: NIYAH reported no vegetation on the mitral valve, no mitral stenosis. Mild mitral insufficiency. Tricuspid valve no vegetation identified. No aortic valvular vegetation no aortic stenosis or insufficiency. Stable appearing bioprosthetic aortic valve apparatus. Cardiac 2D echo yesterday also showed EF 55%. 11/30:His back pain is better. Follow-up with Dr. Collins in 2 to 3 weeks. #2 bacteremia from Streptococcus secondary to discitis of the lumbar spine-: Preliminary blood culture and bacterial detection so was strep not staph. Continue Rocephin and vancomycin. During previous admission in October 2022 patient had alphahemolytic strep bacteremia.Patient had NIYAH on 11/04/2022 and this was communicated to Dr. Montoya but he wants repeat as the duration of antibiotic treatment depends on NIYAH. NIYAH at that time shows LA severely enlarged right atrium moderately enlarged, no vegetation on mitral valve. No mitral stenosis. Mild MR. No tricuspid valve vegetation. No aortic valve vegetation. PICC line is ordered by ID. 6 weeks of IV ceftriaxone. ID follow 2 weeks. 11/30:Patient got PICC line. Patient has a prescription of 6 weeks of IV ceftriaxone from ID. Advised follow-up ID in 2 wee #3 chronic paroxysmal atrial fibrillation-patient is not on any anticoagulation due to recent GI bleeding, he is also off aspirin at this time. Patient remains on amiodarone and metoprolol. 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 Patient had EGD and colonoscopy in October 2022. 11/30: Acute anemia with history of chronic anemia: Patient hemoglobin has been low between 8 to 9 g recently in October 2022. Today, it dropped to 7.9 g therefore IV iron infusion ordered and given. Patient discharged on ferrous sulfate and ascorbic acid. EGD 11/03/2022: Impression: - Esophageal plaques were found, suspicious for candidiasis. Biopsied. 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 Treated with a heater probe. - Normal second portion of the duodenum. Recommendation: - Resume previous diet. - Use Protonix (pantoprazole) 40 mg PO daily. - Nystatin suspension 100,000 units PO QID for 1 week. - Continue present medications. Colonoscopy on 11/14/2022. Impression: - Diverticulosis in the recto-sigmoid colon, in the sigmoid colon and in the descending colon. Fluid aspiration performed. - The examination was otherwise normal on direct and retroflexion views. Recommendation: - Discharge patient to home. - Resume previous diet. - Continue present medications. Repeat colonoscopy is not recommended. #6 essential hypertension-patient will remain on his outpatient medications #7 BPH-patient is on Flomax Discharge medication reconciliation done. Discharge follow-up instructions completed. Discharge process discussed with the patient and all questions were answered to patient's satisfaction. Total time spent, exact 35 minutes on discharge meds reconciliation, examination, coordination of care with nurses and ancillary staff, review of imaging and blood test and discussion with the patient on follow-up instructions. Clinical Impression(s) from Imaging Studies Chest X-Ray 11/27/22 09:58 IMPRESSION: Blunting of the costophrenic angles with mild basilar atelectasis at the left lung base. Electronically Signed: Lokesh Smith MD at 11:05 EDT , Lumbar Spine MRI 11/27/22 11:19 IMPRESSION: L4-5 disc edema, concerning for discitis. Modic type I endplate changes at L4-5 and correspond to symptoms of back pain. Medications at Discharge Home Medications aspirin 81 mg tablet,delayed release 81 mg PO QDAY SEE PCP 03/11/17 famotidine 20 mg tablet 40 mg PO QHS SEE PCP 06/21/19 ascorbic acid (vitamin C) 1,000 mg tablet 1 gm PO DAILY SUPPLEMENT 06/26/20 cholecalciferol (vitamin D3) 25 mcg (1,000 unit) tablet 25 mcg PO BID SUPPLEMEN 10/13/20 acetaminophen 325 mg tablet 650 mg PO Q6H PRN pain 10/20/20 losartan 50 mg tablet 50 mg PO DAILY #90 tabs 11/28/20 amlodipine 10 mg tablet 10 mg PO DAILY #90 tabs 01/17/22 cyanocobalamin (vitamin B-12) 1,000 mcg tablet 1,000 mcg PO DAILY SEE PCP 01/17/22 magnesium 200 mg tablet 200 mg PO DAILY SUPPLEMENT 01/17/22 tamsulosin 0.4 mg capsule 0.4 mg PO QHS SEE PCP 01/17/22 zinc acetate 25 mg (zinc) capsule 25 mg PO DAILY SEE PCP 01/17/22 ezetimibe 10 mg tablet (Zetia) 10 mg PO DAILY #90 tabs 01/30/22 coenzyme Q10 100 mg capsule 100 mg PO DAILY SUPPLEMENT 07/22/22 potassium chloride 20 mEq tablet,extended release 20 meq PO DAILY #90 tabs 10/16/22 apixaban 5 mg tablet (Eliquis) 5 mg PO BID #60 tabs 08/21/23 pantoprazole 40 mg tablet,delayed release (Protonix) 40 mg PO DAILY #30 tabs 11/05/22 amiodarone 200 mg tablet 200 mg PO BID #60 tabs 11/17/22 metoprolol tartrate 50 mg tablet 50 mg PO .qam #180 tabs 11/17/22 ceftriaxone 2 gram intravenous solution 2 g IV Q24H 39 days 11/29/22 ascorbic acid (vitamin C) 500 mg tablet 500 mg PO BID #60 tabs 11/30/22 ferrous sulfate 325 mg (65 mg iron) tablet 325 mg PO QODAY #30 tabs 11/30/22 Physical Exam Narrative Patient did not had any symptoms. Physical exam General: Alert, Oriented x3, Cooperative HEENT: Atraumatic, PERRLA, EOMI, Normocephalic Oral: Oral mucosa moist. No Gingival or Mucosal Lesions/ Ulcerations Neck: Supple, No JVD, Negative Carotid Bruits Lungs: Air entry diminished in bilateral lung bases. No crepitation/rhonchi Cardiovascular: Regular rate, Regular Rhythm, Normal S1, Normal S2, systolic murmur over right second ICS, LLSB and cardiac apex. No radiation to axilla. Open heart surgery scar Abdomen: Bowel Sounds Present, Soft, Non Tender, Non-Distended : No renal angle tenderness. No suprapubic tenderness. Extremities: No edema, Capillary Refill Less than 3 Seconds Skin: No rashes, No breakdown. No [place] lesion or osler's node Musculoskeletal: No Tenderness to Palpation of Joints or Extremities. ROM intact. Spine: Mild tenderness over lumbar spine mainly L4-L5. Mild paravertebral muscle tenderness on right side. Neurological: Cranial nerves II-XII grossly intact, DTR 2+/4. No acute focal neurological deficit. Psych/Mental Status: Normal Affect, Appropriate. Weight / BMI Weight Weight: 186 lb 1.616 oz Body Mass Index (BMI) 28.3 ABG / Lab / Microbiology Data 11/30/22 08:10 11/30/22 08:10 Laboratory: Laboratory Results - last 24 hr 11/30/22 08:10: WBC 9.5, RBC 2.93 L, Hgb 7.9 L, Hct 26.3 L, MCV 89.8, MCH 27.0, MCHC 30.0 L, RDW Std Deviation 57.0 H, RDW Coeff of Duyen 17.7 H, Plt Count 232, MPV 8.6, Immature Gran % (Auto) 0.400, Neut % (Auto) 86.6 H, Lymph % (Auto) 5.6 L, [place] % (Auto) 4.9, Eos % (Auto) 2.2, Baso % (Auto) 0.3, Absolute Neuts (auto) 8.2 H, Absolute Lymphs (auto) 0.53 L, Nucleated RBC % 0, Differential Comment SCANNED, Sodium 139, Potassium 3.4 L, Chloride 108 H, Carbon Dioxide 25.0, Anion Gap 6, BUN 13, Creatinine 0.99, Estim Creat Clear Calc 57.58, Est GFR (MDRD) Af Amer 93, Est GFR (MDRD) Non-Af 77, BUN/Creatinine Ratio 13.1, Glucose 102, Calcium 8.5 Microbiology: Microbiology 11/27/22 10:00 Urine, Clean Catch Urine Culture - Final GPC Poss Enterococcus sp 11/27/22 09:50 Blood Culture (Wb) - Venous Blood Culture - Preliminary Alpha Hemolytic Streptococcus 11/27/22 09:34 Blood Culture (Wb) - Venous Blood Culture - Preliminary Alpha Hemolytic Streptococcus 11/27/22 09:41 Nasal Secretion SARS-CoV-2 & FLU Antigen (Rapid) - Final Radiography Diagnostic Testing: Radiology Impression Transesophageal Echocardiogram 11/28/22 13:27 Interpretation Summary The estimated ejection fraction is 55 %. The left atrium is severely enlarged. The right atrium is moderately enlarged. Mild (1+) mitral valve insufficiency. No vegetations visualized Ordering Physician: Carlitos Koch Referring Physician: Rosemarie Samaniego Performed By: Pam Medrano RDCS Chest X-Ray 11/29/22 20:55 IMPRESSION: Mild left lower lobe atelectasis or infiltrate status post PICC line placement which terminates in the distal superior vena cava Electronically Signed: Eric Cheema MD at 21:48 EDT , D/C Instructions Discharge Diet: No restrictions Weight Bearing Status: Weight bearing as tolerated Call your doctor if you observe: Fever of 101 or Higher, Coldness, Increased Pain, Numbness or Tingling, Change in Color, Inability to urinate, Inability to have a bowel movement, Shortness of breath, Dizziness, Fainting spells, Swelling in the ankles, Chest pain, Prolonged hiccupping, Increased palpitations (irregular heartbeat) and Calf discomfort When: IN 2 WEEKS Meaningful Use Info Meaningful Use Diagnoses (Choose all that apply): None applicable Discharge Plan Admission Admit Date/Time: 11/27/22 10:59 Primary Reason for Your Visit: Lumbar discitis/osteomyelitis. Attending Provider: Carlitos Koch Primary Care Provider: Rosemarie Samaniego Consulting Providers: Morteza Montoya; Eric Collins; Harshal Mtz Discharge Orders/Prescriptions Prescriptions: New ceftriaxone 2 gram recon soln 2 g IV Q24H 39 Days Rx Instructions: dx: lumber discitis stop date 01/08/23 weekly bmp, cbc, and esr. fax to [phone] ferrous sulfate 325 mg (65 mg iron) tablet 325 mg PO QODAY Qty: 30 2RF ascorbic acid (vitamin C) 500 mg tablet 500 mg PO BID Qty: 60 2RF Continued famotidine 20 mg tablet 40 mg PO QHS ascorbic acid (vitamin C) 1,000 mg tablet 1 gm PO DAILY acetaminophen 325 mg tablet 650 mg PO Q6H PRN (Reason: pain) tamsulosin 0.4 mg capsule 0.4 mg PO QHS cyanocobalamin (vitamin B-12) 1,000 mcg tablet 1,000 mcg PO DAILY magnesium 200 mg tablet 200 mg PO DAILY zinc acetate 25 mg (zinc) capsule 25 mg PO DAILY amlodipine 10 mg tablet 10 mg PO DAILY Qty: 90 3RF Hold Instructions: Order Changed coenzyme Q10 100 mg capsule 100 mg PO DAILY Patient Comments: TAKE 1 CAPSULE BY MOUTH ONCE DAILY amiodarone 200 mg Tablet 200 mg PO BID Qty: 60 0RF Rx Instructions: 1 twice daily for 7 days starting 11/17, then 1 daily thereafter metoprolol tartrate 50 mg tablet 50 mg PO .qam Qty: 180 0RF Rx Instructions: 50mg ev AM, 25mg ev night pantoprazole [Protonix] 40 mg tablet,delayed release (DR/EC) 40 mg PO DAILY Qty: 30 0RF cholecalciferol (vitamin D3) 25 mcg (1,000 unit) tablet 25 mcg PO BID losartan 50 mg tablet 50 mg PO DAILY Qty: 90 3RF ezetimibe [Zetia] 10 mg tablet 10 mg PO DAILY Qty: 90 3RF potassium chloride 20 mEq tablet extended release 20 meq PO DAILY Qty: 90 3RF Eliquis 5 mg tablet 5 mg PO BID Qty: 60 11RF Hold Instructions: GI BLEED Held aspirin 81 mg tablet,delayed release (DR/EC) 81 mg PO QDAY Hold Instructions: Hold baby aspirin and patient has severe anemia and already on Eliquis. Referrals / Follow Up: [facility], Infusion Clinic [Other] (Patient to come to main entrance on Friday at 10am as instructed. Will be seen in infusion clinic on Friday at 1030) Rosemarie Samaniego MD [Primary Care Provider] - Eric Collins DO [Med Staff - Active Staff] - Within 2 Weeks (for lumbar back/discitis/osteo) Morteza Montoya MD [Med Staff - Active Staff] - Within 1 Week (For history of lumbar discitis, PICC line on IV ceftriaxone.) Disposition Disposition (needs filled in before D/C Order can be placed): Home, Self Care Charges/Coding Visit Charges Inpatient E&M: 22413 Disch Hosp >30min
[2022-11-30] MEDS: Sodium Ferric Gluconat/Sucrose 250 MG in 0.9% Normal Saline (250mL Bag) 250 ML 135 MG IV (12:12)
== END 2022-11-30 15:44 | disposition home or self-care (01) | DRG 540 ==
LOC: ED 11:00 → MS3 11:30 → PCU 17:32
PROVIDERS: Admitting Provider Internal Medicine; Emergency Provider Emergency Medicine; PCP Internal Medicine; Visit Provider Internal Medicine
DX: M46.26 Osteomyelitis of vertebra, lumbar region (principal); K62.5 Hemorrhage of anus and rectum; D62 Acute posthemorrhagic anemia; I48.0 Paroxysmal atrial fibrillation; I10 Essential (primary) hypertension; I25.10 Atherosclerotic heart disease of native coronary artery without angina pectoris; E78.00 Pure hypercholesterolemia, unspecified; Z95.2 Presence of prosthetic heart valve; B95.0 Streptococcus, group A, as the cause of diseases classified elsewhere; N40.0 Benign prostatic hyperplasia without lower urinary tract symptoms; Z79.01 Long term (current) use of anticoagulants; Z79.82 Long term (current) use of aspirin; Z79.899 Other long term (current) drug therapy
CPT/HCPCS: 36415; 36569; 71045; 72158; 80048; 80053; 80202; 81001; 83605; 83690; 85025; 87040; 87077; 87086; 87149; 87186; 87428; 93005; 93306; 93312; 93320; 93325; 96372; 97161; 99283; A9575; J7030; J7040; J7050; A4216; J0696; J2916

== ENCOUNTER 2022-12-01 11:10 | Outpatient (CLI) | payer MEDICARE, OTHER, SELFPAY ==
[2022-12-01 11:25] VITALS: BP 93/58; PULSE 69; RESP 16; TEMP 36.6; O2SAT 97
[2022-12-01] MEDS: Ceftriaxone 2 GM in 0.9% NS 50 ML Minibag x1 IV (11:32)
[2022-12-01] MEDS: 0.9 % NaCl (Sterile) Posiflush 10 mL IV (12:02)
[2022-12-01 12:03] VITALS: BP 99/70; PULSE 64; RESP 16; TEMP 36.7; O2SAT 97
== END 2022-12-01 12:06 | disposition home or self-care (01) ==
LOC: MEDOUTP 11:26 → ICU 11:31
PROVIDERS: PCP Internal Medicine; Visit Provider Internal Medicine Infectious Disease
DX: M46.46 Discitis, unspecified, lumbar region (principal)
CPT/HCPCS: 96365; J0696

== ENCOUNTER 2022-12-02 10:22 | Outpatient (CLI) | payer MEDICARE, OTHER, SELFPAY ==
[2022-12-02 10:41] VITALS: BP 98/55; PULSE 74; RESP 16; TEMP 36.3; O2SAT 98; BMI 28.3
[2022-12-02] MEDS: Ceftriaxone 2 GM in 0.9% Normal Saline (50mL MB+) 50 ML IV (11:01)
[2022-12-02 11:59] VITALS: BP 106/61; PULSE 69; RESP 16; TEMP 36.2; O2SAT 98
== END 2022-12-02 10:23 | disposition home or self-care (01) ==
LOC: MEDOUTP 10:23
PROVIDERS: PCP Internal Medicine; Referring Provider Internal Medicine Infectious Disease; Visit Provider Internal Medicine Infectious Disease
DX: M46.96 Unspecified inflammatory spondylopathy, lumbar region (principal)
CPT/HCPCS: 96365; J7050; A4216; J0696

== ENCOUNTER 2022-12-03 11:39 | Outpatient (CLI) | payer MEDICARE, OTHER, SELFPAY ==
[2022-12-03 11:58] VITALS: BP 117/69; PULSE 69; RESP 16; TEMP 36.2; O2SAT 98; BMI 28.3
[2022-12-03] MEDS: Ceftriaxone 2 GM in 0.9% Normal Saline (50mL MB+) 50 ML IV (12:01)
[2022-12-03 13:19] VITALS: BP 104/64; PULSE 65; RESP 16; TEMP 36.2; O2SAT 97
== END 2022-12-03 11:40 | disposition home or self-care (01) ==
LOC: MEDOUTP 11:40
PROVIDERS: PCP Internal Medicine; Referring Provider Internal Medicine Infectious Disease; Visit Provider Internal Medicine Infectious Disease
DX: M46.46 Discitis, unspecified, lumbar region (principal)
CPT/HCPCS: 96365; A4216; J0696

== ENCOUNTER 2022-12-04 12:18 | Outpatient (CLI) | payer MEDICARE, OTHER, SELFPAY ==
[2022-12-04 12:28] VITALS: BP 100/62; PULSE 65; RESP 16; TEMP 36.2; O2SAT 98; BMI 28.3
[2022-12-04] MEDS: Ceftriaxone 2 GM in 0.9% Normal Saline (50mL MB+) 50 ML IV (12:35)
[2022-12-04 13:45] VITALS: BP 112/65; PULSE 75; RESP 16; TEMP 36.6; O2SAT 99
== END 2022-12-04 12:19 | disposition home or self-care (01) ==
LOC: MEDOUTP 12:18
PROVIDERS: PCP Internal Medicine; Referring Provider Internal Medicine Infectious Disease; Visit Provider Internal Medicine Infectious Disease
DX: M46.46 Discitis, unspecified, lumbar region (principal)
CPT/HCPCS: 96365; J7050; A4216; J0696

== ENCOUNTER 2022-12-05 12:18 | Outpatient (CLI) | payer MEDICARE, OTHER, SELFPAY ==
[2022-12-05 12:25] VITALS: BP 114/61; PULSE 66; RESP 16; TEMP 36.6; O2SAT 98; BMI 28.4
[2022-12-05] MEDS: Ceftriaxone 2 GM in 0.9% Normal Saline (50mL MB+) 50 ML IV (12:32)
[2022-12-05 13:40] VITALS: BP 126/72; PULSE 68; RESP 16; TEMP 36.6; O2SAT 98
== END 2022-12-05 12:19 | disposition home or self-care (01) ==
LOC: MEDOUTP 12:19
PROVIDERS: PCP Internal Medicine; Referring Provider Internal Medicine Infectious Disease; Visit Provider Internal Medicine Infectious Disease
DX: M46.46 Discitis, unspecified, lumbar region (principal)
CPT/HCPCS: 96365; J7050; A4216; J0696

== ENCOUNTER 2022-12-06 12:20 | Outpatient (CLI) | payer MEDICARE, OTHER, SELFPAY ==
[2022-12-06 12:26] VITALS: BP 119/70; PULSE 75; RESP 16; O2SAT 99
[2022-12-06] MEDS: Ceftriaxone 2 GM in 0.9% Normal Saline (50mL MB+) 50 ML IV (12:59)
[2022-12-06 13:10] LABS: PTHIN 111.2 pg/mL (18.4-80.1)
[2022-12-06 13:11] LABS: Iron 33 ug/dL (65-175)
[2022-12-06 14:00] VITALS: BP 114/71; PULSE 64; RESP 16; TEMP 36.6; O2SAT 98
[2022-12-06 14:08] LABS: Anion Gap 2 (5-15); BUN 19 mg/dL (7-18); BUN/Creat Ratio 17.6 RATIO (10-20); Calcium,Total 8.5 mg/dL (8.5-10.1); Chloride 110 mmol/L (98-107); Creatinine, Serum 1.08 mg/dL (0.70-1.30); EST Glomerular Filtration Rate 70 mL/min (>60); Est Glom Filt Rate - Afr Amer 85 mL/min (>60); Glucose 94 mg/dL (74-106); Sodium Level 143 mmol/L (136-145)
[2022-12-06 14:20] LABS: Erythrocyte Sedimentation Rate 25 mm/hr (0-20)
[2022-12-06 14:22] LABS: Hematocrit 26.7 % (40-54); Mean Corpuscular Hgb 27.8 pg (27.0-32.0); Mean Corpuscular Volume 92.7 fL (80-94); Mean Platelet Vol. 8.7 fl (6.2-12.0); Platelet Count 205 K/mm3 (150-450); RBC Distribution Width CV 17.6 % (11.6-14.6); RBC Distribution Width SD 59.8 fl (35.1-43.9); Red Blood Count 2.88 M/mm3 (4.6-6.2); White Blood Count 8.9 K/mm3 (4.4-11.0)
== END 2022-12-06 12:21 | disposition home or self-care (01) ==
LOC: MEDOUTP 12:21
PROVIDERS: PCP Internal Medicine; Referring Provider Internal Medicine Infectious Disease; Visit Provider Internal Medicine Infectious Disease
DX: M46.46 Discitis, unspecified, lumbar region (principal); N18.32 Chronic kidney disease, stage 3b
CPT/HCPCS: 96365; 36592; 80048; 83540; 83970; 84100; 85027; 85652; J7050; A4216; J0696

== ENCOUNTER 2022-12-07 12:29 | Outpatient (CLI) | payer MEDICARE, OTHER, SELFPAY ==
[2022-12-07 12:50] VITALS: BP 130/79; PULSE 66; RESP 18; TEMP 36.4; O2SAT 98
[2022-12-07] MEDS: 0.9% Saline Lock 10 ML Syringe IV (12:54)
[2022-12-07] MEDS: Ceftriaxone 2 GM in 0.9% Normal Saline (50mL Bag) 50 ML IV (12:54)
[2022-12-07] MEDS: 0.9% Normal Saline (250mL Bag) 250 ML 15 ML IV (13:24)
[2022-12-07 14:00] VITALS: BP 106/78; PULSE 60; RESP 18; TEMP 36.5; O2SAT 97
== END 2022-12-07 14:17 | disposition home or self-care (01) ==
LOC: MEDOUTP 12:30 → MS3 12:32
PROVIDERS: PCP Internal Medicine; Visit Provider Internal Medicine Infectious Disease
DX: M46.46 Discitis, unspecified, lumbar region (principal)
CPT/HCPCS: 96365; J7050; A4216; J0696; J3490

== ENCOUNTER 2022-12-08 12:25 | Outpatient (CLI) | payer MEDICARE, OTHER, SELFPAY ==
[2022-12-08 12:33] VITALS: BP 111/71; PULSE 69; RESP 18; TEMP 36.6; O2SAT 98
[2022-12-08] MEDS: 0.9 % NaCl (Sterile) Posiflush 10 mL IV ×2 (12:46→13:27)
[2022-12-08] MEDS: Ceftriaxone 2 GM in 0.9% Normal Saline (50mL MB+) 50 ML IV (12:46)
[2022-12-08 13:26] VITALS: BP 115/70; PULSE 61; RESP 18; TEMP 36.8; O2SAT 98
== END 2022-12-08 13:23 | disposition home or self-care (01) ==
LOC: MEDOUTP 12:27 → MS3 12:27
PROVIDERS: PCP Internal Medicine; Visit Provider Internal Medicine Infectious Disease
DX: M46.46 Discitis, unspecified, lumbar region (principal)
CPT/HCPCS: 96365; J0696

== ENCOUNTER 2022-12-09 12:22 | Outpatient (CLI) | payer MEDICARE, OTHER, SELFPAY ==
[2022-12-09] MEDS: Ceftriaxone 2 GM in 0.9% Normal Saline (50mL MB+) 50 ML IV (12:37)
[2022-12-09 12:42] VITALS: BP 104/68; PULSE 65; RESP 16; TEMP 36.3; O2SAT 95
[2022-12-09 13:39] VITALS: BP 113/62; PULSE 77; RESP 16; TEMP 36.6; O2SAT 95
== END 2022-12-09 12:23 | disposition home or self-care (01) ==
LOC: MEDOUTP 12:22
PROVIDERS: PCP Internal Medicine; Referring Provider Internal Medicine Infectious Disease; Visit Provider Internal Medicine Infectious Disease
DX: M46.46 Discitis, unspecified, lumbar region (principal)
CPT/HCPCS: 96365; J7050; A4216; J0696

== ENCOUNTER 2022-12-10 12:21 | Outpatient (CLI) | payer MEDICARE, OTHER, SELFPAY ==
[2022-12-10] MEDS: Ceftriaxone 2 GM in 0.9% Normal Saline (50mL MB+) 50 ML IV (12:35)
[2022-12-10 12:37] VITALS: BP 115/70; PULSE 61; RESP 16; TEMP 36.2; O2SAT 99
[2022-12-10 13:31] VITALS: BP 114/62; PULSE 64; RESP 16; TEMP 35.7; O2SAT 96
== END 2022-12-10 12:22 | disposition home or self-care (01) ==
LOC: MEDOUTP 12:21
PROVIDERS: PCP Internal Medicine; Referring Provider Internal Medicine Infectious Disease; Visit Provider Internal Medicine Infectious Disease
DX: M46.46 Discitis, unspecified, lumbar region (principal)
CPT/HCPCS: 96365; J7050; A4216; J0696

== ENCOUNTER 2022-12-11 12:22 | Outpatient (CLI) | payer MEDICARE, OTHER, SELFPAY ==
[2022-12-11 12:32] VITALS: BP 113/63; PULSE 69; RESP 16; TEMP 36.4; O2SAT 96
[2022-12-11] MEDS: Ceftriaxone 2 GM in 0.9% Normal Saline (50mL MB+) 50 ML IV (12:50)
[2022-12-11 14:02] VITALS: BP 128/68; PULSE 78; RESP 16; TEMP 36.5; O2SAT 96
== END 2022-12-11 12:23 | disposition home or self-care (01) ==
LOC: MEDOUTP 12:22
PROVIDERS: PCP Internal Medicine; Referring Provider Internal Medicine Infectious Disease; Visit Provider Internal Medicine Infectious Disease
DX: M46.46 Discitis, unspecified, lumbar region (principal)
CPT/HCPCS: 96365; J7050; A4216; J0696

== ENCOUNTER 2022-12-12 12:20 | Outpatient (CLI) | payer MEDICARE, OTHER, SELFPAY ==
[2022-12-12] MEDS: Ceftriaxone 2 GM in 0.9% Normal Saline (50mL MB+) 50 ML IV (13:00)
[2022-12-12 13:05] VITALS: BP 112/66; PULSE 66; RESP 16; TEMP 36.2; O2SAT 98; BMI 28.3
[2022-12-12 13:52] VITALS: BP 117/67; PULSE 60; RESP 16; TEMP 36.4; O2SAT 98
== END 2022-12-12 12:21 | disposition home or self-care (01) ==
LOC: MEDOUTP 12:20
PROVIDERS: PCP Internal Medicine; Referring Provider Internal Medicine Infectious Disease; Visit Provider Internal Medicine Infectious Disease
DX: M46.46 Discitis, unspecified, lumbar region (principal)
CPT/HCPCS: 96365; J7050; A4216; J0696

== ENCOUNTER 2022-12-13 12:23 | Outpatient (CLI) | payer MEDICARE, OTHER, SELFPAY ==
[2022-12-13 12:30] VITALS: BP 110/63; PULSE 71; RESP 16; TEMP 36.3; O2SAT 99; BMI 28.3
[2022-12-13 13:03] LABS: Hematocrit 25.9 % (40-54); Hemoglobin 7.5 g/dL (13.0-16.5)
[2022-12-13] MEDS: Ceftriaxone 2 GM in 0.9% Normal Saline (50mL MB+) 50 ML IV (13:10)
[2022-12-13 14:08] VITALS: BP 109/63; PULSE 63; RESP 16; TEMP 36.1; O2SAT 98
== END 2022-12-13 12:24 | disposition home or self-care (01) ==
PROVIDERS: Internal Medicine Gastroenterology; PCP Internal Medicine; Referring Provider Internal Medicine Infectious Disease; Visit Provider Internal Medicine Infectious Disease
DX: M46.46 Discitis, unspecified, lumbar region (principal)
CPT/HCPCS: 96365; 36592; 85014; 85018; J7050; A4216; J0696

== ENCOUNTER 2022-12-14 12:25 | Outpatient (CLI) | payer MEDICARE, OTHER, SELFPAY ==
[2022-12-14 12:35] VITALS: BP 119/70; PULSE 73; RESP 18; TEMP 36.6; O2SAT 100
[2022-12-14] MEDS: Ceftriaxone 2 GM in 0.9% Normal Saline (50mL MB+) 50 ML IV (12:40)
[2022-12-14] MEDS: 0.9 % NaCl (Sterile) Posiflush 10 mL IV (13:25)
== END 2022-12-14 13:25 | disposition home or self-care (01) ==
LOC: MEDOUTP 12:28 → PCU 12:29
PROVIDERS: PCP Internal Medicine; Referring Provider Internal Medicine Infectious Disease; Visit Provider Internal Medicine Infectious Disease
DX: M46.46 Discitis, unspecified, lumbar region (principal)
CPT/HCPCS: 96365; J0696

== ENCOUNTER 2022-12-15 12:23 | Outpatient (CLI) | payer MEDICARE, OTHER, SELFPAY ==
[2022-12-15] MEDS: Ceftriaxone 2 GM in 0.9% Normal Saline (50mL MB+) 50 ML IV (12:45)
[2022-12-15 12:50] VITALS: BP 100/77; PULSE 60; RESP 16; TEMP 36.7; O2SAT 99
[2022-12-15] MEDS: 0.9 % NaCl (Sterile) Posiflush 10 mL IV (13:22)
== END 2022-12-15 13:22 | disposition home or self-care (01) ==
LOC: MEDOUTP 12:23 → PCU 12:24
PROVIDERS: PCP Internal Medicine; Referring Provider Internal Medicine Infectious Disease; Visit Provider Internal Medicine Infectious Disease
DX: M46.46 Discitis, unspecified, lumbar region (principal)
CPT/HCPCS: 96365; J0696

== ENCOUNTER 2022-12-16 12:19 | Outpatient (CLI) | payer MEDICARE, OTHER, SELFPAY ==
[2022-12-16 12:36] VITALS: BP 118/65; PULSE 66; RESP 16; TEMP 36.2; O2SAT 97
[2022-12-16] MEDS: Ceftriaxone 2 GM in 0.9% Normal Saline (50mL MB+) 50 ML IV (12:45)
[2022-12-16 13:43] VITALS: BP 116/67; PULSE 67; RESP 16
== END 2022-12-16 12:20 | disposition home or self-care (01) ==
LOC: MEDOUTP 12:19
PROVIDERS: PCP Internal Medicine; Referring Provider Internal Medicine Infectious Disease; Visit Provider Internal Medicine Infectious Disease
DX: M46.46 Discitis, unspecified, lumbar region (principal); Z79.01 Long term (current) use of anticoagulants
CPT/HCPCS: 96365; 36415; 85014; 85018; J7050; A4216; J0696

== ENCOUNTER → 2022-12-16 | Outpatient (CLI) | payer MEDICARE, OTHER, SELFPAY ==
[2022-12-16 12:26] LABS: Hematocrit 27.5 % (40-54); Hemoglobin 8.1 g/dL (13.0-16.5)
== END | disposition home or self-care (01) ==
LOC: LAB 11:28
PROVIDERS: PCP Internal Medicine; Referring Provider Internal Medicine Gastroenterology; Visit Provider Internal Medicine Gastroenterology
DX: Z79.01 Long term (current) use of anticoagulants (principal)
CPT/HCPCS: 36415; 85014; 85018

== ENCOUNTER 2022-12-17 12:12 | Outpatient (CLI) | payer MEDICARE, OTHER, SELFPAY ==
[2022-12-17 12:55] VITALS: BP 126/68; PULSE 78; RESP 16; TEMP 36.4; O2SAT 98
[2022-12-17] MEDS: Ceftriaxone 2 GM in 0.9% Normal Saline (50mL MB+) 50 ML IV (13:01)
[2022-12-17 13:45] VITALS: BP 118/65; PULSE 72
== END 2022-12-17 12:13 | disposition home or self-care (01) ==
LOC: MEDOUTP 12:12
PROVIDERS: PCP Internal Medicine; Referring Provider Internal Medicine Infectious Disease; Visit Provider Internal Medicine Infectious Disease
DX: M46.46 Discitis, unspecified, lumbar region (principal)
CPT/HCPCS: 96365; J7050; A4216; J0696

== ENCOUNTER 2022-12-18 12:18 | Outpatient (CLI) | payer MEDICARE, OTHER, SELFPAY ==
[2022-12-18 12:23] VITALS: BP 105/63; PULSE 70; RESP 16; TEMP 36.4; O2SAT 99
[2022-12-18] MEDS: Ceftriaxone 2 GM in 0.9% Normal Saline (50mL MB+) 50 ML IV (12:28)
[2022-12-18 13:29] VITALS: BP 105/66; PULSE 66; RESP 16; TEMP 36.3; O2SAT 98
== END 2022-12-18 12:19 | disposition home or self-care (01) ==
LOC: MEDOUTP 12:18
PROVIDERS: PCP Internal Medicine; Referring Provider Internal Medicine Infectious Disease; Visit Provider Internal Medicine Infectious Disease
DX: M46.46 Discitis, unspecified, lumbar region (principal)
CPT/HCPCS: 96365; A4216; J0696

== ENCOUNTER 2022-12-19 12:19 | Outpatient (CLI) | payer MEDICARE, OTHER, SELFPAY ==
[2022-12-19] MEDS: Ceftriaxone 2 GM in 0.9% Normal Saline (50mL MB+) 50 ML IV (12:27)
[2022-12-19 12:29] VITALS: BP 113/81; PULSE 63; RESP 16; TEMP 36.5; O2SAT 99; BMI 28.3
[2022-12-19 13:27] VITALS: BP 120/73; PULSE 66; RESP 16; TEMP 36.3; O2SAT 100
== END 2022-12-19 12:20 | disposition home or self-care (01) ==
LOC: MEDOUTP 12:19
PROVIDERS: PCP Internal Medicine; Referring Provider Internal Medicine Infectious Disease; Visit Provider Internal Medicine Infectious Disease
DX: M46.46 Discitis, unspecified, lumbar region (principal)
CPT/HCPCS: 96365; J7050; A4216; J0696

== ENCOUNTER 2022-12-20 12:23 | Outpatient (CLI) | payer MEDICARE, OTHER, SELFPAY ==
[2022-12-20] MEDS: Ceftriaxone 2 GM in 0.9% Normal Saline (50mL MB+) 50 ML IV (12:51)
[2022-12-20 12:57] VITALS: BP 113/73; PULSE 66; RESP 16; TEMP 35.7; O2SAT 100; BMI 28.3
[2022-12-20 12:57] LABS: Erythrocyte Sedimentation Rate 22 mm/hr (0-20)
[2022-12-20 12:59] LABS: Hematocrit 27.2 % (40-54); Hemoglobin 7.9 g/dL (13.0-16.5); Mean Corpuscular Hgb 27.1 pg (27.0-32.0); Mean Corpuscular Volume 93.5 fL (80-94); Mean Platelet Vol. 8.9 fl (6.2-12.0); Platelet Count 224 K/mm3 (150-450); RBC Distribution Width CV 17.8 % (11.6-14.6); RBC Distribution Width SD 61.1 fl (35.1-43.9); Red Blood Count 2.91 M/mm3 (4.6-6.2)
[2022-12-20 13:16] LABS: Anion Gap 7 (5-15); BUN 19 mg/dL (7-18); Calcium,Total 8.6 mg/dL (8.5-10.1); Chloride 108 mmol/L (98-107); Creatinine, Serum 1.12 mg/dL (0.70-1.30); EST Glomerular Filtration Rate 67 mL/min (>60); Est Glom Filt Rate - Afr Amer 81 mL/min (>60); Estimated Creatinine Clearance 50.89 ml/min; Glucose 97 mg/dL (74-106); Potassium 3.8 mmol/L (3.5-5.1); Sodium Level 144 mmol/L (136-145)
[2022-12-20 13:59] VITALS: BP 115/71; PULSE 63; RESP 16; TEMP 36.1; O2SAT 96
== END 2022-12-20 12:24 | disposition home or self-care (01) ==
LOC: MEDOUTP 12:23
PROVIDERS: PCP Internal Medicine; Referring Provider Internal Medicine Infectious Disease; Visit Provider Internal Medicine Infectious Disease
DX: M46.46 Discitis, unspecified, lumbar region (principal)
CPT/HCPCS: 96365; 36592; 80048; 85027; 85652; J7050; A4216; J0696

== ENCOUNTER 2022-12-21 13:05 | Outpatient (CLI) | payer MEDICARE, OTHER, SELFPAY ==
[2022-12-21] MEDS: Ceftriaxone 2 GM in 0.9% Normal Saline (50mL MB+) 50 ML IV (13:00)
[2022-12-21] MEDS: 0.9% NaCl IVPB Med Flush (250 mL) 15 ML IV (13:01)
[2022-12-21] MEDS: 0.9% NaCl Peripheral Flush Adult/Peds IV (13:01)
[2022-12-21 13:11] VITALS: BP 98/70; PULSE 66; RESP 18; TEMP 36.9; O2SAT 100; BMI 28.3
== END 2022-12-21 13:06 | disposition home or self-care (01) ==
LOC: MEDOUTP 13:06
PROVIDERS: PCP Internal Medicine; Referring Provider Internal Medicine Infectious Disease; Visit Provider Internal Medicine Infectious Disease
DX: M46.46 Discitis, unspecified, lumbar region (principal)
CPT/HCPCS: 96365; J7050; A4216; J0696

== ENCOUNTER 2022-12-22 12:28 | Outpatient (CLI) | payer MEDICARE, OTHER, SELFPAY ==
[2022-12-22] MEDS: Ceftriaxone 2 GM in 0.9% Normal Saline (50mL MB+) 50 ML IV (12:34)
[2022-12-22] MEDS: 0.9% Normal Saline (250mL Bag) 250 ML 15 ML IV (12:34)
[2022-12-22] MEDS: 0.9% Saline Lock 10 ML Syringe IV (12:34)
[2022-12-22 12:42] VITALS: BP 106/70; PULSE 65; RESP 18; TEMP 36.8; O2SAT 99
== END 2022-12-22 12:29 | disposition home or self-care (01) ==
PROVIDERS: PCP Internal Medicine; Referring Provider Internal Medicine Infectious Disease; Visit Provider Internal Medicine Infectious Disease
DX: M46.46 Discitis, unspecified, lumbar region (principal)
CPT/HCPCS: 96365; J7050; A4216; J0696

== ENCOUNTER 2022-12-23 12:27 | Outpatient (CLI) | payer MEDICARE, OTHER, SELFPAY ==
[2022-12-23] MEDS: Ceftriaxone 2 GM in 0.9% Normal Saline (50mL MB+) 50 ML IV (12:35)
[2022-12-23 12:38] VITALS: BP 111/76; PULSE 74; RESP 16; TEMP 36.3; O2SAT 98; BMI 28.3
[2022-12-23 13:31] VITALS: BP 118/78; PULSE 65; RESP 16; TEMP 36.4; O2SAT 99
== END 2022-12-23 12:28 | disposition home or self-care (01) ==
LOC: MEDOUTP 12:27
PROVIDERS: PCP Internal Medicine; Referring Provider Internal Medicine Infectious Disease; Visit Provider Internal Medicine Infectious Disease
DX: M46.46 Discitis, unspecified, lumbar region (principal)
CPT/HCPCS: 96365; J7050; A4216; J0696

== ENCOUNTER 2022-12-24 12:19 | Outpatient (CLI) | payer MEDICARE, OTHER, SELFPAY ==
[2022-12-24] MEDS: Ceftriaxone 2 GM in 0.9% Normal Saline (50mL MB+) 50 ML IV (12:31)
[2022-12-24 12:36] VITALS: BP 111/90; PULSE 69; RESP 16; TEMP 36.6; O2SAT 96; BMI 28.3
== END 2022-12-24 12:20 | disposition home or self-care (01) ==
LOC: MEDOUTP 12:19
PROVIDERS: PCP Internal Medicine; Referring Provider Internal Medicine Infectious Disease; Visit Provider Internal Medicine Infectious Disease
DX: M46.46 Discitis, unspecified, lumbar region (principal)
CPT/HCPCS: 96365; J7050; A4216; J0696

== ENCOUNTER 2022-12-25 12:25 | Outpatient (CLI) | payer MEDICARE, OTHER, SELFPAY ==
[2022-12-25] MEDS: Ceftriaxone 2 GM in 0.9% Normal Saline (50mL MB+) 50 ML IV (12:41)
[2022-12-25 12:44] VITALS: BP 109/59; PULSE 77; RESP 16; TEMP 36.5; O2SAT 95
[2022-12-25 13:47] VITALS: BP 111/56; PULSE 61; RESP 16
== END 2022-12-25 12:26 | disposition home or self-care (01) ==
LOC: MEDOUTP 12:25
PROVIDERS: PCP Internal Medicine; Referring Provider Internal Medicine Infectious Disease; Visit Provider Internal Medicine Infectious Disease
DX: M46.46 Discitis, unspecified, lumbar region (principal)
CPT/HCPCS: 96365; J7050; A4216; J0696

== ENCOUNTER 2022-12-26 12:25 | Outpatient (CLI) | payer MEDICARE, OTHER, SELFPAY ==
[2022-12-26] MEDS: Ceftriaxone 2 GM in 0.9% Normal Saline (50mL MB+) 50 ML IV (12:34)
[2022-12-26 12:36] VITALS: BP 113/70; PULSE 50; RESP 16; TEMP 36.4; O2SAT 99; BMI 28.3
[2022-12-26 13:41] VITALS: BP 115/65; PULSE 68
== END 2022-12-26 12:26 | disposition home or self-care (01) ==
LOC: MEDOUTP 12:26
PROVIDERS: PCP Internal Medicine; Referring Provider Internal Medicine Infectious Disease; Visit Provider Internal Medicine Infectious Disease
DX: M46.46 Discitis, unspecified, lumbar region (principal)
CPT/HCPCS: 96365; J7050; A4216; J0696

== ENCOUNTER 2022-12-27 12:22 | Outpatient (CLI) | payer MEDICARE, OTHER, SELFPAY ==
[2022-12-27] MEDS: Ceftriaxone 2 GM in 0.9% Normal Saline (50mL MB+) 50 ML IV (12:37)
[2022-12-27 12:40] VITALS: BP 105/58; PULSE 79; RESP 16; TEMP 36.7; O2SAT 96; BMI 28.3
[2022-12-27 13:00] LABS: Hemoglobin 7.7 g/dL (13.0-16.5)
[2022-12-27 13:50] VITALS: BP 115/65; PULSE 65; RESP 16; O2SAT 97
== END 2022-12-27 12:23 | disposition home or self-care (01) ==
LOC: MEDOUTP 12:22
PROVIDERS: Internal Medicine Gastroenterology; PCP Internal Medicine; Referring Provider Internal Medicine Infectious Disease; Visit Provider Internal Medicine Infectious Disease
DX: M46.46 Discitis, unspecified, lumbar region (principal)
CPT/HCPCS: 96365; 36592; 85014; 85018; J7050; A4216; J0696

== ENCOUNTER 2022-12-28 09:54 | Outpatient (CLI) | payer MEDICARE, OTHER, SELFPAY ==
[2022-12-28] MEDS: Ceftriaxone 2 GM in 0.9% Normal Saline (50mL MB+) 50 ML IV (10:13)
== END 2022-12-28 10:45 | disposition home or self-care (01) ==
LOC: MEDOUTP 09:55 → PCU 10:00
PROVIDERS: PCP Internal Medicine; Referring Provider Internal Medicine Infectious Disease; Visit Provider Internal Medicine Infectious Disease
DX: M46.46 Discitis, unspecified, lumbar region (principal)
CPT/HCPCS: 96365; J0696

== ENCOUNTER 2022-12-29 09:57 | Outpatient (CLI) | payer MEDICARE, OTHER, SELFPAY ==
[2022-12-29] MEDS: Ceftriaxone 2 GM in 0.9% Normal Saline (50mL MB+) 50 ML IV (10:12)
== END 2022-12-29 10:48 | disposition home or self-care (01) ==
LOC: MEDOUTP 09:58 → PCU 09:58
PROVIDERS: PCP Internal Medicine; Referring Provider Internal Medicine Infectious Disease; Visit Provider Internal Medicine Infectious Disease
DX: M46.46 Discitis, unspecified, lumbar region (principal)
CPT/HCPCS: 96365; J0696

== ENCOUNTER 2022-12-30 12:22 | Outpatient (CLI) | payer MEDICARE, OTHER, SELFPAY ==
[2022-12-30] MEDS: Ceftriaxone 2 GM in 0.9% Normal Saline (50mL MB+) 50 ML IV (12:28)
[2022-12-30 12:33] VITALS: BP 98/58; PULSE 90; RESP 16; TEMP 36.6; O2SAT 98; BMI 28.3
[2022-12-30 13:28] VITALS: BP 99/51; PULSE 66; RESP 16; TEMP 36.5
== END 2022-12-30 12:23 | disposition home or self-care (01) ==
LOC: MEDOUTP 12:22
PROVIDERS: PCP Internal Medicine; Referring Provider Internal Medicine Infectious Disease; Visit Provider Internal Medicine Infectious Disease
DX: M46.46 Discitis, unspecified, lumbar region (principal)
CPT/HCPCS: 96365; A4216; J0696

== ENCOUNTER 2022-12-31 12:22 | Outpatient (CLI) | payer MEDICARE, OTHER, SELFPAY ==
[2022-12-31] MEDS: Ceftriaxone 2 GM in 0.9% Normal Saline (50mL MB+) 50 ML IV (12:28)
[2022-12-31 12:33] VITALS: BP 115/73; PULSE 69; RESP 16; TEMP 36.3; O2SAT 99; BMI 24.0
[2022-12-31 13:33] VITALS: BP 99/56; PULSE 74; RESP 16; TEMP 36.4; O2SAT 96
== END 2022-12-31 12:23 | disposition home or self-care (01) ==
LOC: MEDOUTP 12:22
PROVIDERS: PCP Internal Medicine; Referring Provider Internal Medicine Infectious Disease; Visit Provider Internal Medicine Infectious Disease
DX: M46.46 Discitis, unspecified, lumbar region (principal)
CPT/HCPCS: 96365; J7050; A4216; J0696

== ENCOUNTER 2023-01-01 12:25 | Outpatient (CLI) | payer MEDICARE, OTHER, SELFPAY ==
[2023-01-01] MEDS: Ceftriaxone 2 GM in 0.9% Normal Saline (50mL MB+) 50 ML IV (12:36)
[2023-01-01 12:37] VITALS: BP 98/59; PULSE 66; RESP 16; TEMP 35.9; O2SAT 97
[2023-01-01 13:46] VITALS: BP 122/68; PULSE 73; RESP 16
== END 2023-01-01 12:26 | disposition home or self-care (01) ==
LOC: MEDOUTP 12:25
PROVIDERS: PCP Internal Medicine; Referring Provider Internal Medicine Infectious Disease; Visit Provider Internal Medicine Infectious Disease
DX: M46.46 Discitis, unspecified, lumbar region (principal)
CPT/HCPCS: 96365; J7050; A4216; J0696

== ENCOUNTER 2023-01-02 12:25 | Outpatient (CLI) | payer MEDICARE, OTHER, SELFPAY ==
[2023-01-02] MEDS: Ceftriaxone 2 GM in 0.9% Normal Saline (50mL MB+) 50 ML IV (12:57)
[2023-01-02 13:02] VITALS: BP 111/65; PULSE 65; RESP 16; TEMP 36.2; O2SAT 97; BMI 28.3
[2023-01-02 14:00] VITALS: BP 116/61; PULSE 57; RESP 16; TEMP 36.5
== END 2023-01-02 12:26 | disposition home or self-care (01) ==
LOC: MEDOUTP 12:25
PROVIDERS: PCP Internal Medicine; Referring Provider Internal Medicine Infectious Disease; Visit Provider Internal Medicine Infectious Disease
DX: M46.46 Discitis, unspecified, lumbar region (principal)
CPT/HCPCS: 96365; J7050; A4216; J0696

== ENCOUNTER 2023-01-03 12:23 | Outpatient (CLI) | payer MEDICARE, OTHER, SELFPAY ==
[2023-01-03 12:53] LABS: Erythrocyte Sedimentation Rate 20 mm/hr (0-20)
[2023-01-03] MEDS: Ceftriaxone 2 GM in 0.9% Normal Saline (50mL MB+) 50 ML IV (12:53)
[2023-01-03 12:58] VITALS: BP 99/57; PULSE 64; RESP 16; TEMP 35.8; O2SAT 98; BMI 28.3
[2023-01-03 12:58] LABS: Hematocrit 26.2 % (40-54); Hemoglobin 7.7 g/dL (13.0-16.5); Mean Corp Hgb Conc 29.4 g/dL (32-36); Mean Corpuscular Hgb 27.4 pg (27.0-32.0); Mean Corpuscular Volume 93.2 fL (80-94); Platelet Count 181 K/mm3 (150-450); RBC Distribution Width CV 16.3 % (11.6-14.6); RBC Distribution Width SD 55.9 fl (35.1-43.9); Red Blood Count 2.81 M/mm3 (4.6-6.2); White Blood Count 6.6 K/mm3 (4.4-11.0)
[2023-01-03 13:14] LABS: Anion Gap 1 (5-15); BUN 20 mg/dL (7-18); BUN/Creat Ratio 17.2 RATIO (10-20); Calcium,Total 8.6 mg/dL (8.5-10.1); Chloride 110 mmol/L (98-107); Creatinine, Serum 1.16 mg/dL (0.70-1.30); EST Glomerular Filtration Rate 64 mL/min (>60); Est Glom Filt Rate - Afr Amer 78 mL/min (>60); Estimated Creatinine Clearance 49.14 ml/min; Glucose 107 mg/dL (74-106); Potassium 3.8 mmol/L (3.5-5.1); Sodium Level 139 mmol/L (136-145)
[2023-01-03 13:55] VITALS: BP 113/46; PULSE 56; RESP 16; TEMP 36.4; O2SAT 98
[2023-01-03 20:45] LABS: Xtra Tube EP Lab EXTRA TUBE
== END 2023-01-03 12:24 | disposition home or self-care (01) ==
LOC: MEDOUTP 12:23
PROVIDERS: PCP Internal Medicine; Referring Provider Internal Medicine Infectious Disease; Visit Provider Internal Medicine Infectious Disease
DX: M46.46 Discitis, unspecified, lumbar region (principal)
CPT/HCPCS: 96365; 36415; 36592; 80048; 85027; 85652; A4216; J0696

== ENCOUNTER 2023-01-04 09:55 | Outpatient (CLI) | payer MEDICARE, OTHER, SELFPAY ==
[2023-01-04] MEDS: Ceftriaxone 2 GM in 0.9% Normal Saline (50mL MB+) 50 ML IV (10:05)
[2023-01-04] MEDS: 0.9% Saline Lock 10 ML Syringe IV ×2 (10:05→10:55)
== END 2023-01-04 11:01 | disposition home or self-care (01) ==
LOC: MEDOUTP 09:56 → MS3 09:57
PROVIDERS: PCP Internal Medicine; Referring Provider Internal Medicine Infectious Disease; Visit Provider Internal Medicine Infectious Disease
DX: M46.46 Discitis, unspecified, lumbar region (principal)
CPT/HCPCS: 96365; A4216; J0696

== ENCOUNTER 2023-01-05 10:32 | Outpatient (CLI) | payer MEDICARE, OTHER, SELFPAY ==
[2023-01-05] MEDS: 0.9% Saline Lock 10 ML Syringe IV ×3 (10:35→11:26)
[2023-01-05] MEDS: 0.9% Normal Saline 250 ML IV.SOLN. 15 ML IV (10:35)
[2023-01-05] MEDS: Ceftriaxone 2 GM in 0.9% Normal Saline (50mL MB+) 50 ML IV (10:39)
[2023-01-05 10:45] VITALS: BP 125/75; PULSE 70; RESP 16; TEMP 36.8; O2SAT 97
== END 2023-01-05 11:30 | disposition home or self-care (01) ==
LOC: MEDOUTP 10:32 → MS3 10:33
PROVIDERS: PCP Internal Medicine; Referring Provider Internal Medicine Infectious Disease; Visit Provider Internal Medicine Infectious Disease
DX: M46.46 Discitis, unspecified, lumbar region (principal)
CPT/HCPCS: 96365; J7050; A4216; J0696

== ENCOUNTER 2023-01-06 12:32 | Outpatient (CLI) | payer MEDICARE, OTHER, SELFPAY ==
[2023-01-06] MEDS: Ceftriaxone 2 GM in 0.9% Normal Saline (50mL MB+) 50 ML IV (12:49)
[2023-01-06 12:51] VITALS: BP 120/73; PULSE 67; RESP 16; TEMP 36.3; O2SAT 100; BMI 28.3
[2023-01-06 13:45] VITALS: BP 122/68; PULSE 54; RESP 16; TEMP 36.2
== END 2023-01-06 12:33 | disposition home or self-care (01) ==
LOC: MEDOUTP 12:32
PROVIDERS: PCP Internal Medicine; Referring Provider Internal Medicine Infectious Disease; Visit Provider Internal Medicine Infectious Disease
DX: M46.46 Discitis, unspecified, lumbar region (principal)
CPT/HCPCS: 96365; J7050; A4216; J0696

== ENCOUNTER 2023-01-07 12:21 | Outpatient (CLI) | payer MEDICARE, OTHER, SELFPAY ==
[2023-01-07] MEDS: Ceftriaxone 2 GM in 0.9% Normal Saline (50mL MB+) 50 ML IV (12:33)
[2023-01-07 12:34] VITALS: BP 115/67; PULSE 77; RESP 16; TEMP 36.2; O2SAT 100; BMI 28.3
[2023-01-07 13:35] VITALS: BP 121/64; PULSE 50; RESP 16; TEMP 36.1
== END 2023-01-07 12:22 | disposition home or self-care (01) ==
PROVIDERS: PCP Internal Medicine; Referring Provider Internal Medicine Infectious Disease; Visit Provider Internal Medicine Infectious Disease
DX: M46.46 Discitis, unspecified, lumbar region (principal)
CPT/HCPCS: 96365; J7050; A4216; J0696

== ENCOUNTER 2023-01-08 12:21 | Outpatient (CLI) | payer MEDICARE, OTHER, SELFPAY ==
[2023-01-08] MEDS: Ceftriaxone 2 GM in 0.9% Normal Saline (50mL MB+) 50 ML IV (12:32)
[2023-01-08 12:33] VITALS: BP 98/50; PULSE 67; RESP 16; TEMP 36.3; O2SAT 97; BMI 28.3
== END 2023-01-08 12:22 | disposition home or self-care (01) ==
LOC: MEDOUTP 12:21
PROVIDERS: PCP Internal Medicine; Referring Provider Internal Medicine Infectious Disease; Visit Provider Internal Medicine Infectious Disease
DX: M46.46 Discitis, unspecified, lumbar region (principal)
CPT/HCPCS: 96365; J7050; A4216; J0696

== ENCOUNTER → 2023-09-08 | Outpatient (CLI) | payer MEDICARE, OTHER, SELFPAY ==
--- NOTE | 2023-09-08 16:05 | RAD_ITS ---
EXAM: XR CHEST, 2 VIEWS CLINICAL INDICATION: Amiodarone TECHNIQUE: Frontal and lateral views of the chest. COMPARISON: No relevant prior studies available. FINDINGS: LUNGS AND PLEURAL SPACES: Unremarkable. No consolidation or edema. No pneumothorax. No effusion. HEART: Patient has prosthetic valves. MEDIASTINUM: Central airways and mediastinal contour are unremarkable. BONES/JOINTS: Unremarkable. No acute fracture. SOFT TISSUES: Unremarkable. VASCULATURE: There is a stent graft in the aortic arch. RAD/Chest PA and Lateral IMPRESSION: No acute findings in the chest. Electronically Signed: Ever Etienne MD at 0:02 EDT ,
[2023-09-08 16:32] LABS: Absolute Neutrophil Count 5.8 X10^3/uL (2.0-7.7); Basophil# 0.07 X10^3/uL; Basophil% 0.8 % (0-1); Eosinophil# 0.69 X10^3/uL; Eosinophils% 8.3 % (0-5); Hematocrit 35.3 % (40-54); Hemoglobin 11.1 g/dL (13.0-16.5); Lymphocyte % 14.5 % (19-41); Mean Corp Hgb Conc 31.4 g/dL (32-36); Mean Corpuscular Hgb 29.8 pg (27.0-32.0); Mean Corpuscular Volume 94.9 fL (80-94); Mean Platelet Vol. 9.2 fl (6.2-12.0); Monocyte# 0.49 X10^3/uL; Monocyte% 5.9 % (0-10); NRBC Flagged by Analyzer 0 % (0-5); Neutrophil # 5.81 X10^3/uL (2.7-7.7); Neutrophil % 70.1 % (47-70); Platelet Count 172 K/mm3 (150-450); RBC Distribution Width CV 13.7 % (11.6-14.6); Red Blood Count 3.72 M/mm3 (4.6-6.2); White Blood Count 8.3 K/mm3 (4.4-11.0)
[2023-09-08 16:57] LABS: AST(SGOT) 20 U/L (15-37); Alanine Aminotransfer ALT/SGPT 20 U/L (16-61); Albumin, Serum 4.1 g/dL (3.2-5.0); Alkaline Phosphatase 87 U/L (45-117); Anion Gap 7 (5-15); BUN 35 mg/dL (7-18); BUN/Creat Ratio 19.9 RATIO (10-20); Calcium,Total 9.1 mg/dL (8.5-10.1); Chloride 106 mmol/L (98-107); Creatinine, Serum 1.76 mg/dL (0.70-1.30); EST Glomerular Filtration Rate 40 mL/min (>60); Est Glom Filt Rate - Afr Amer 48 mL/min (>60); Glucose 103 mg/dL (74-106); Potassium 3.9 mmol/L (3.5-5.1); Protein, Total 8.1 g/dL (6.4-8.2); Sodium Level 142 mmol/L (136-145); Thyroid Stim Hormone (TSH) 1.47 uIU/mL (0.358-3.74)
[2023-09-08 17:03] LABS: BNP,B-Type NATRIURETIC PEPTIDE 285.5 pg/mL (0-100)
== END | disposition home or self-care (01) ==
LOC: RAD 15:57
PROVIDERS: PCP Internal Medicine; Referring Provider Nurse Practitioner Gerontology; Visit Provider Nurse Practitioner Gerontology
DX: R06.09 Other forms of dyspnea (principal); Z79.899 Other long term (current) drug therapy
CPT/HCPCS: 36415; 71046; 80053; 83880; 84443; 85025

== ENCOUNTER → 2023-09-15 | Outpatient (CLI) | payer MEDICARE, OTHER, SELFPAY ==
[2023-09-15 16:55] LABS: Anion Gap 5 (5-15); BUN 43 mg/dL (7-18); BUN/Creat Ratio 21.1 RATIO (10-20); Calcium,Total 9.3 mg/dL (8.5-10.1); Chloride 105 mmol/L (98-107); Creatinine, Serum 2.04 mg/dL (0.70-1.30); EST Glomerular Filtration Rate 33 mL/min (>60); Est Glom Filt Rate - Afr Amer 41 mL/min (>60); Glucose 91 mg/dL (74-106); Potassium 3.9 mmol/L (3.5-5.1); Sodium Level 141 mmol/L (136-145)
== END | disposition home or self-care (01) ==
PROVIDERS: PCP Internal Medicine; Referring Provider Nurse Practitioner Gerontology; Visit Provider Nurse Practitioner Gerontology
DX: R06.09 Other forms of dyspnea (principal)
CPT/HCPCS: 36415; 80048

== ENCOUNTER → 2023-09-17 | Outpatient (CLI) | payer MEDICARE, OTHER, SELFPAY | END | disposition home or self-care (01) | PROVIDERS: PCP Internal Medicine; Referring Provider Nurse Practitioner Gerontology; Visit Provider Nurse Practitioner Gerontology | DX: Z79.899 Other long term (current) drug therapy (principal); I48.91 Unspecified atrial fibrillation | CPT/HCPCS: 93225; 93226; 94010; 94060; 94726; 94729 ==

== ENCOUNTER 2024-02-27 07:40 | Day surgery (SDC) | payer MEDICARE, OTHER, SELFPAY ==
[2024-02-27 08:02] VITALS: BP 140/77; PULSE 69; RESP 16; TEMP 36.7; O2SAT 97
[2024-02-27] MEDS: Lidocaine Jelly 2% 20 ML Syringe (URO-JET) 1 APPLIC (08:07)
== END 2024-02-27 08:44 | disposition home or self-care (01) ==
PROVIDERS: PCP Internal Medicine; Referring Provider Internal Medicine; Visit Provider Internal Medicine Gastroenterology
PROC: F00ZJWZ Instrumental Swallowing and Oral Function Assessment using Swallowing Equipment (ICD-10-PCS; CPT 43235; principal; 2024-02-27 07:55)
DX: K22.4 Dyskinesia of esophagus (principal)
CPT/HCPCS: 91010

== ENCOUNTER 2024-06-24 09:09 | Emergency (ER) | payer MEDICARE, OTHER, SELFPAY ==
[2024-06-24 09:10] VITALS: BP 88/61; PULSE 58; RESP 16; TEMP 36.4; O2SAT 98
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
[2024-06-24 09:26] VITALS: BP 100/61; PULSE 64; RESP 18; TEMP 36.9; O2SAT 99
[2024-06-24 09:30] VITALS: BP 105/62; BP 94/63; BP 99/52; PULSE 74; PULSE 76; PULSE 78
== END 2024-06-24 10:15 | disposition home or self-care (01) ==
PROVIDERS: Emergency Provider Emergency Medicine; PCP Internal Medicine; Visit Provider Emergency Medicine
DX: S76.312A Strain of muscle, fascia and tendon of the posterior muscle group at thigh level, left thigh, initial encounter (principal); I48.91 Unspecified atrial fibrillation; X58.XXXA Exposure to other specified factors, initial encounter; I95.9 Hypotension, unspecified; I10 Essential (primary) hypertension; I34.1 Nonrheumatic mitral (valve) prolapse; I34.0 Nonrheumatic mitral (valve) insufficiency; I36.1 Nonrheumatic tricuspid (valve) insufficiency; I25.10 Atherosclerotic heart disease of native coronary artery without angina pectoris; I71.20 Thoracic aortic aneurysm, without rupture, unspecified; E78.00 Pure hypercholesterolemia, unspecified; N40.0 Benign prostatic hyperplasia without lower urinary tract symptoms; G47.33 Obstructive sleep apnea (adult) (pediatric); J45.909 Unspecified asthma, uncomplicated; Z95.2 Presence of prosthetic heart valve; Z79.01 Long term (current) use of anticoagulants; Z79.899 Other long term (current) drug therapy
CPT/HCPCS: 99283

== ENCOUNTER → 2024-07-02 | Outpatient (CLI) | payer MEDICARE, OTHER, SELFPAY ==
[2024-07-02 14:31] LABS: Absolute Lymphocyte Count 0.51 X10^3/uL (0.83-4.51); Absolute Neutrophil Count 7.6 X10^3/uL (2.0-7.7); Basophil# 0.03 X10^3/uL; Basophil% 0.3 % (0-1); Eosinophil# 0.16 X10^3/uL; Eosinophils% 1.8 % (0-5); Hematocrit 24.9 % (40-54); Lymphocyte # 0.51 X10^3/ul (0.83-4.51); Lymphocyte % 5.7 % (19-41); Mean Corp Hgb Conc 32.1 g/dL (32-36); Mean Corpuscular Hgb 31.3 pg (27.0-32.0); Mean Corpuscular Volume 97.3 fL (80-94); Mean Platelet Vol. 8.9 fl (6.2-12.0); Monocyte# 0.52 X10^3/uL; Monocyte% 5.9 % (0-10); NRBC Flagged by Analyzer 0 % (0-5); Neutrophil # 7.59 X10^3/uL (2.7-7.7); Neutrophil % 85.6 % (47-70); POSITIVE DIFFERENTIAL YES; Platelet Count 250 K/mm3 (150-450); RBC Distribution Width CV 15.9 % (11.6-14.6); RBC Distribution Width SD 56.4 fl (35.1-43.9); Red Blood Count 2.56 M/mm3 (4.6-6.2); White Blood Count 8.9 K/mm3 (4.4-11.0)
--- NOTE | 2024-07-02 14:35 | RAD_ITS ---
PROCEDURE: CHEST PA AND LATERAL 07/02/2024 REASON FOR EXAM: AMIODARONE-SOB TECHNIQUE: Frontal and lateral views of the chest. COMPARISON: No relevant prior. FINDINGS: Lungs: Right lower lobe infiltrate. Pleura: Pleural fluid in the right lower hemithorax. Heart: Normal in size and configuration. Mediastinum/Sheron: Unremarkable. Great vessels: Atherosclerotic and tortuous aorta. A stent graft is seen in the arch of the aorta. Aortic valvular prosthesis. Bones/soft tissues: Median sternotomy wires. Surgical clips project over the right upper rafy thorax laterally. RAD/Chest PA and Lateral IMPRESSION: Suspicion of right lower lobe infiltrate. Right pleural effusion. Other nonacute findings detailed above. Reading Location: [facility]
[2024-07-02 15:29] LABS: Anion Gap 12 (5-15); BUN 32 mg/dL (4-19); BUN/Creat Ratio 20.3 RATIO (10-20); Calcium,Total 8.6 mg/dL (7.6-11.0); Carbon Dioxide 24.9 mmol/L (21.0-32.0); Chloride 106 mmol/L (98-108); Creatinine, Serum 1.55 mg/dL (0.70-1.20); EST Glomerular Filtration Rate 44 (>60); Glucose 115 mg/dL (70-99); Pro- Brain NATRIURETIC PEPTIDE 5288 pg/mL (<=1800); Sodium Level 143 mmol/L (133-145)
== END | disposition home or self-care (01) ==
LOC: LAB 14:10
PROVIDERS: PCP Internal Medicine; Referring Provider Physician Assistant Medical; Visit Provider Physician Assistant Medical
DX: I48.91 Unspecified atrial fibrillation (principal); I10 Essential (primary) hypertension; R06.09 Other forms of dyspnea; Z79.899 Other long term (current) drug therapy; Z95.3 Presence of xenogenic heart valve
CPT/HCPCS: 36415; 71046; 80048; 83880; 85025

== ENCOUNTER → 2024-07-08 | Outpatient (CLI) | payer MEDICARE, OTHER, SELFPAY | END | disposition home or self-care (01) | LOC: PSN 08:06 | PROVIDERS: PCP Internal Medicine; Referring Provider Physician Assistant Medical; Visit Provider Physician Assistant Medical | DX: R06.09 Other forms of dyspnea (principal); I48.91 Unspecified atrial fibrillation; Z79.899 Other long term (current) drug therapy; I10 Essential (primary) hypertension | CPT/HCPCS: 94060; 94726; 94729 ==

== ENCOUNTER → 2024-09-06 | Outpatient (CLI) | payer MEDICARE, OTHER, SELFPAY ==
[2024-09-06 17:49] LABS: ALB/GLOB Ratio 1.5 RATIO (0.9-2.4); AST(SGOT) 21 U/L (<=37); Alanine Aminotransfer ALT/SGPT 15 U/L (<=46); Albumin, Serum 4.5 g/dL (3.4-4.8); Alkaline Phosphatase 85 U/L (40-129); Anion Gap 12 (5-15); BUN 23 mg/dL (4-19); BUN/Creat Ratio 17.2 RATIO (10-20); Calcium,Total 9.6 mg/dL (7.6-11.0); Carbon Dioxide 28.2 mmol/L (21.0-32.0); Chloride 104 mmol/L (98-108); Creatinine, Serum 1.34 mg/dL (0.70-1.20); EST Glomerular Filtration Rate 53 (>60); Globulin 3.1 g/dL (2.2-4.2); Glucose 103 mg/dL (70-99); Potassium 4.4 mmol/L (3.3-5.1); Protein, Total 7.7 g/dL (5.9-8.4); Sodium Level 144 mmol/L (133-145); Total Bilirubin 0.45 mg/dL (0.00-1.30)
== END | disposition home or self-care (01) ==
LOC: LAB 16:31
PROVIDERS: PCP Internal Medicine; Referring Provider Nurse Practitioner Family; Visit Provider Nurse Practitioner Family
DX: I48.91 Unspecified atrial fibrillation (principal); I10 Essential (primary) hypertension; Z98.890 Other specified postprocedural states; Z95.828 Presence of other vascular implants and grafts; Z95.3 Presence of xenogenic heart valve; Z79.899 Other long term (current) drug therapy
CPT/HCPCS: 36415; 80053; 84439; 84443

== ENCOUNTER → 2024-09-23 | Outpatient (CLI) | payer MEDICARE, OTHER, SELFPAY ==
--- NOTE | 2024-09-23 13:49 | ECHOD_ITS ---
Reason For Study Reason For Study: EVALUATE VALVE Procedure This was a 2D Doppler, Color Flow transthoracic echocardiogram. Exam performed in department. Left Ventricle Normal LV size. Left ventricular systolic function is normal. The left ventricular ejection fraction is 50 %. No regional wall motion abnormalities noted. Right Ventricle Normal RV size. Normal systolic function. Atria Normal left atrium. Normal right atrium. Mitral Valve There is mild mitral annular calcification. Tricuspid Valve Normal tricuspid valve. Mild (1+) tricuspid valve insufficiency. Pulmonary artery systolic pressure is 32 mmHg. Aortic Valve Peak aortic valve gradient 26.5 mmHg. Mean aortic valve gradient 14.6 mmHg. Bioprosthetic aortic valve. Pulmonic Valve The pulmonic valve is not well visualized. Great Vessels Normal aortic root. The pulmonary artery is normal size. Pericardium/Pleural No pericardial effusion. MMode/2D Measurements & Calculations LVIDd: 6.1 cm IVSd: 0.72 cm LVOT diam: 2.0 cm LVIDs: 4.5 cm LVPWd: 0.96 cm LVOT area: 3.3 cm2 FS: 26.6 % Ao root diam: 3.3 cm LAV(MOD-bp): 95.8 ml LVAd ap4: 35.1 cm2 LAV(MOD-bp) Indexed: 47.3 ml/m2 LVLd ap4: 8.0 cm LAV(MOD-sp2): 99.0 ml EDV(MOD-sp4): 130.1 ml LAV(MOD-sp4): 93.5 ml EDV(sp4-el): 131.3 ml LVAs ap4: 19.6 cm2 LVLs ap4: 6.5 cm ESV(MOD-sp4): 49.7 ml ESV(sp4-el): 50.2 ml EF(MOD-sp4): 61.8 % EF(sp4-el): 61.8 % LVAd ap2: 29.1 cm2 SV(MOD-sp4): 80.3 ml SV(MOD-sp2): 52.3 ml LVLd ap2: 7.7 cm SI(MOD-sp4): 39.6 ml/m2 SI(MOD-sp2): 25.8 ml/m2 EDV(MOD-sp2): 92.7 ml EDV(sp2-el): 93.8 ml LVAs ap2: 17.6 cm2 LVLs ap2: 6.7 cm ESV(MOD-sp2): 40.4 ml ESV(sp2-el): 39.5 ml EF(MOD-sp2): 56.4 % SV(sp4-el): 81.1 ml LA dimension(2D): 4.9 cm LA A4 area: 27.0 cm2 RA A4 area: 24.9 cm2 TAPSE: 1.6 cm Time Measurements MV dec time: 0.21 sec Doppler Measurements & Calculations MV E max kunal: 78.2 cm/sec Lat Peak E' Kunal: 18.0 cm/sec Med Peak E' Kunal: 8.8 cm/sec MV A max kunal: 67.4 cm/sec E/E' lat: 4.4 E/E' med: 8.9 MV E/A: 1.2 MV V2 max: 98.4 cm/sec MV P1/2t max kunal: 97.5 cm/sec Ao V2 max: 257.4 cm/sec MV max P.9 mmHg MV P1/2t: 74.0 msec Ao max P.5 mmHg MV V2 mean: 42.2 cm/sec Ao V2 mean: 176.6 cm/sec MV mean P.91 mmHg MV dec slope: 385.7 cm/sec2 Ao mean P.6 mmHg MV V2 VTI: 23.0 cm MVA(P1/2t): 3.0 cm2 Ao V2 VTI: 63.4 cm AV (velocity ratio): 0.35 MVA(VTI): 3.2 cm2 CECI(I,D): 1.1 cm2 CECI(V,D): 1.2 cm2 LV V1 max: 90.3 cm/sec SV(LVOT): 72.9 ml TV V2 max: 131.8 cm/sec LV V1 max P.3 mmHg TV max P.0 mmHg LV V1 mean P.7 mmHg TV V2 mean: 62.4 cm/sec LV V1 mean: 62.5 cm/sec TV mean P.9 mmHg LV V1 VTI: 22.2 cm PA V2 max: 132.7 cm/sec PI dec slope: 189.9 cm/sec2 TR max kunal: 265.8 cm/sec PA V2 mean: 81.0 cm/sec TR max P.3 mmHg PA V2 VTI: 28.1 cm ECHO/Echo Complete Interpretation Summary Normal LV size. Left ventricular systolic function is normal. The left ventricular ejection fraction is 50 %. Bioprosthetic aortic valve. Mean aortic valve gradient 14.6 mmHg. Ordering Physician: Basilio Rivera Referring Physician: Rosemarie Samaniego Performed By: Marlee Medina, ISABEL, RVT
== END | disposition home or self-care (01) ==
LOC: CVS 13:44
PROVIDERS: PCP Internal Medicine; Referring Provider Nurse Practitioner Family; Visit Provider Nurse Practitioner Family
DX: I48.91 Unspecified atrial fibrillation (principal); I10 Essential (primary) hypertension; Z95.3 Presence of xenogenic heart valve; Z79.899 Other long term (current) drug therapy; Z98.890 Other specified postprocedural states; Z95.828 Presence of other vascular implants and grafts
CPT/HCPCS: 93306

== ENCOUNTER → 2025-01-13 | Outpatient (CLI) | payer MEDICARE, OTHER, SELFPAY ==
--- OUTSIDE RECORDS SUMMARY | 2025-01-13 07:01 | XMS RPT_ITS | CCD ---
Author Organization [facility] Care Team Providers Care Prompt Care Rn Name Role Phone [facility] MED Admitting Unava ilgloria POMDORIKY, [facility] Attending Tamekava [facility]gl[facility] Primary Care Rebecca Perdomo MD Primary Care Provider Victor Manuel Zhou Unavailable Dr. Rebecca Dinh Primary Care Provider Dr. Rebecca Dinh Referring Provider Ezra FULLER BRUSH MAN, FULLER BRUSH MANRubi Loo Attending Provider Rebecca Dinh MD Primary Care Provider Victor Manuel Zhou Unavailable Victor Manuel Zhou Unavailable Dr. Rebecca Dinh Primary Care Provider Dr. Rebecca Dinh Referring Provider Dr. Victor Manuel Zhou Attending Provider Rebecca Dinh MD Primary Care Provider Victor Manuel Zhou Unavailable Dr. Rebecca Dinh Primary Care Provider Dr. Rebecca Dinh Referring Provider Miguel FULLER BRUSH MAN, FULLER BRUSH MAN-Kem Almeida Attending Provider Dr. Jethro Pickard Attending Provider Roof FULLER BRUSH MAN, FULLER BRUSH MAN-C Bsailio Almeida Referring Provider Dr. Dustin Jeffery Emergency Provider Dr. Emma Medina Admit Provider Dr. Emma Medina Attending Provider Dr. Emma Medina Other Provider Dr. Jarek Crystal Other Provider Unavailable Friend, Dr. Andrews Attending Provider Dr. Quinn Vera Attending Provider Dr. Jarek Crystal Attending Provider Unavailable Dr. Morteza Montoya Other Provider Dr. Harshal Mtz Other Provider Dr. Ines Valentin Attending Provider Garth Galaviz MD Unavailable Dr. Jarek Crystal Attending Provider Unavailable Dr. Harshal Mtz Attending Provider Friend, Dr. Andrews Other Provider REBECCA DINH Primary Care Unavailable SILVA PALACIOS Referring Unavailable Dr. Rebecca Dinh Primary Care Provider Dr. Harshal Mtz Referring Provider Dr. Rebecca Dinh Referring Provider Dr. Cal Renee Emergency Provider Dr. Harshal Mtz Admit Provider Dr. Eric Collins Other Provider Dr. Carlitos Koch Attending Provider Dr. Carlitos Koch Other Provider Dr. Morteza Montoya Referring Provider Dr. Rebecca Dinh Primary Care Provider Dr. Jethro Pickard Attending Provider Roof FULLER BRUSH MAN, FULLER BRUSH MANMikaC Basilio Almeida Referring Provider Dr. Dustin Jeffery Emergency Provider Dr. Emma Medina Admit Provider Dr. Emma Medina Other Provider Dr. Jarek Crystal Attending Provider Unavailable Dr. Jarek Crystal Other Provider Unavailable Friend, Dr. Andrews Attending Provider Dr. Harshal Mtz Referring Provider Chuy, Dr. Ball Attending Provider Dr. Morteza Montoya Other Provider Dr. Harshal Mtz Other Provider Dr. Harshal Mtz Attending Provider Dr. Ines Valentin Attending Provider Dr. Morteza Montoya Referring Provider Dr. Rebecca Dinh Referring Provider Friend, Dr. Andrews Other Provider Dr. Cal Renee Emergency Provider Dr. Harshal Mtz Admit Provider Karina, Dr. Reyes Other Provider Dr. Carlitos Koch Attending Provider Dr. Carlitos Kcoh Other Provider Dr. Rebecca Dinh Primary Care Provider Dr. Ines Valentin Referring Provider Abelardo BUI, Victor Manuel Rucker Unavailable Rebecca Dinh MD Primary Care Provider Silva Palacios PA-C Unavailable Older SOCIAL WORK LECTURER.LSAT INSTRUCTOR, Nicolle Unavailable Angeles Nicolas PA-C Unavailable Erica BUI, Garth Unavailable Fabrizio BUI, Dr. [place] Primary Care Provider Jose D BUI, Dr. Chan Attending Provider Dr. Dustin Jeffery MD Emergency Provider Elvia Bergman Attending Provider [phone] Elvia Bergman Referring Provider [phone] Dr. Jeffrey Patterson DO Attending Provider Dr. Rebecca Dinh MD Referring Provider Dr. Darryl Pimentel DO Attending Provider Roof FULLER BRUSH MAN-C, Basilio H Attending Provider Roof FULLER BRUSH MAN-C, Basilio H Referring Provider Dr. Jethro Pickard MD Attending Provider Dr. Rebecca Dinh MD Primary Care Provider Elvia Bergman Attending Provider [phone] Elvia Bergman Referring Provider [phone] GANTA, REBECCA Referring Unavailable GANTA, REBECCA Primary Care Unavailable GANTA, REBECCA Attending Unavailable GANTA, REBECCA Primary Care Unavailable GANTA, REBECCA Referring Unavailable GANTA, REBECCA Primary Care Unavailable ALMITA PHILLIPS Attending Unavailable GANTA, REBECCA Referring Unavailable GANTA, REBECCA Primary Care Unavailable GANTA, REBECCA Referring Unavailable GANTA, REBECCA Primary Care Unavailable GANTA, REBECCA Attending Unavailable GANTA, REBECCA Primary Care Unavailable GANTA, REBECCA Primary Care Unavailable MASCI, VICTOR MANUEL A Attending Unavailable MASCI, VICTOR MANUEL A Referring Unavailable GANTA, REBECCA Primary Care Unavailable GANTA, REBECCA Primary Care Unavailable OLDER, NICOLLE Attending Unavailable SELF Referring Unavailable GANTA, REBECCA Primary Care Unavailable GANTA, REBECCA Referring Unavailable GANTA, REBECCA Primary Care Unavailable OLDER, NICOLLE Attending Unavailable GANTA, REBECCA Primary Care Unavailable MASCI, VICTOR MANUEL A Referring Unavailable GANTA, REBECCA Primary Care Unavailable PATRICIA SANDERS Attending Unavailable MASCI, VICTORM ANUEL A Referring Unavailable GANTA, REBECCA Primary Care Unavailable GANTA, REBECCA Referring Unavailable GANTA, REBECCA Primary Care Unavailable Ganta, Rebecca Primary Care Unavailable Jeffery, Dustin Attending Unavailable Ganta, Rebecca Primary Care Unavailable Elvia Bergman Attending Unavail able Elvia Bergman Referring Unavail able Ganta, Rebecca Primary Care Unavailable Roof FULLER BRUSH MAN, Basilio H Referring Unavailable Roof FULLER BRUSH MAN, Basilio Almeida Attending Unavailable Ganta, Rebecca Primary Care Unavailable Ganta, Rebecca Referring Unavailable Roof FULLER BRUSH MAN, Basilio Almeida Attending Unavailable Ganta, Rebecca Primary Care Unavailable Jeffrey Patterson Attending Unavailable Stanley PA, Elvia Ndiaye Referring Unavail able Ganta, Rebecca Primary Care Unavailable Melly, Chester Attending Unavailable Ganta, Rebecca Primary Care Unavailable Friend, Darryl Attending Unavailable Ganta, Rebecca Referring Unavailable Ganta, Rebecca Referring Unavailable Melly, Chester Attending Unavailable Ganta, Rebecca Primary Care Unavailable Ganta, Rebecca Referring Unavailable Friend, Darryl Attending Unavailable Ganta, Rebecca Primary Care Unavailable Ganta, Rebecca Referring Unavailable Friend, Darryl Attending Unavailable Ganta, Rebecca Primary Care Unavailable Ganta, Rebecca Primary Care Unavailable Ganta, Rebecca Referring Unavailable Friend, Darryl Attending Unavailable Ganta, Rebecca Primary Care Unavailable Ganta, Rebecca Referring Unavailable Roof FULLER BRUSH MAN, Basilio Almeida Attending Unavailable Ganta, Rebecca Primary Care Unavailable Stanley GODOY, Elvia Ndiaye Referring Unavail able Elvia Bergman Attending Unavail able Ganta, Rebecca Primary Care Unavailable Elvia Bergman Attending Unavail able Stanley GODOY, Elvia Ndiaye Referring Unavail able Ganta, Rebecca Referring Unavailable Friend, Darryl Attending Unavailable Ganta, Rebecca Primary Care Unavailable Ganta, Rebecca Primary Care Unavailable Roof FULLER BRUSH MAN, Basilio H Referring Unavailable Roof FULLER BRUSH MAN, Basilio Almeida Attending Unavailable Allergies Allergy Classification Reported Allergen(s) Allergy Type Date of Onset Reaction(s) Facility (20 sources) Atenolol; Translations: [ATENOLOL] Drug Allergy 05-30-19 04 Unknown [facility] (20 sources) atorvastatin; Translations: [ATORVASTATIN CALCIUM] Drug Allergy 10-27-19 05 GI Upset [facility] Work Phone: (20 sources) Feather; Translations: [FEATHERS] Propensity to adverse reactions 05-30-19 04 [facility] Work Phone: (20 sources) Lovastatin; Translations: [LOVASTATIN] Drug Allergy 05-18-19 08 Intolerance [facility] (20 sources) Pollen; Translations: [POLLEN] Propensity to adverse reactions 05-30-19 04 [facility] Work Phone: (20 sources) Pravastatin; Translations: [PRAVASTATIN] Drug Allergy 07-05-19 10 Intolerance [facility] (20 sources) red yeast rice; Translations: [RED YEAST RICE] Drug Allergy 05-18-19 08 Intolerance [facility] (20 sources) rosuvastatin; Translations: [ROSUVASTATIN CALCIUM] Drug Allergy 05-18-19 08 Intolerance [facility] (20 sources) Fragrances; Translations: [FRAGRANCES] Propensity to adverse reactions 05-30-19 04 [facility] Work Phone: (20 sources) hydroCHLOROthiazide Drug Allergy 06-26-19 unknown [facility] (20 sources) Omwcawy-Zgo-Bbe Reductase Inhibitor; Translations: [Lgpxiuf-Rqe-Rnz Reductase Inhibitor] Propensity to adverse reactions 06-26-19 22 intolerence [facility] (1 source) Ciera albicans allergenic extract Drug Allergy 01-11-20 [facility] (1 source) hydroCHLOROthiazide Drug Allergy 01-11-20 [facility] Medications Current Medications Medication Drug Class(es) Dates Sig (Normalized) Sig (Original) amiodarone hydrochloride 200 mg oral tablet (20 sources) Antiarrhythmic Start: 07-13-2024 Amiodarone 200 mg tablet Active 100 mg PO DAILY 45 3 July 13, 2024 2:37pm Start: 11-05-2022 End: 12-06-2022 Amiodarone 200 mg Tablet Discontinued 200 mg PO TWICE A DAY 60 0 November 17, 2022 9:27pm December 06, 2022 10:31am 1 twice daily for 7 days starting 11/17, then 1 daily thereafter Start: 11-05-2022 End: 07-13-2024 take 1 tablet by mouth once daily Amiodarone 200 mg tablet Discontinued 200 mg PO DAILY 90 3 December 01, 2023 4:15pm July 13, 2024 2:37pm Start: 10-04-2020 End: 06-29-2021 take 1 tablet by mouth once daily Amiodarone 200 mg tablet Discontinued 200 mg PO DAILY 90 3 November 01, 2020 1:51pm March 01, 2021 4:06pm Comment on above: Take 1 tablet by karl once daily. Take by mouth once d aily. Take 200 mg by mouth once daily. amLODIPine 10 mg oral tablet (20 sources) Dihydropyridine Calcium Channel Alvaro Start: 11-05-19 take 1 tablet by mouth once daily amLODIPine (NORVASC) 10 mg tablet Indications: Gastroesophageal reflux disease without esophagitis Take 1 tablet by mouth once daily. 90 tablet 3 11/04/2024 Active Start: 03-05-2024 End: 11-04-2024 take 1 tablet by mouth once daily Amlodipine 5 mg tablet Discontinued 5 mg PO daily 90 March 05, 2024 1:00am November 04, 2024 3:31pm Start: 10-13-2023 End: 11-01-2024 take 1 tablet by mouth once daily amLODIPine (NORVASC) 10 mg tablet Indications: Gastroesophageal reflux disease without esophagitis Take 1 tablet by mouth once daily. 90 tablet 3 10/13/2023 11/01/2024 Discontinued Start: 09-08-2023 End: 01-20-2024 take 5 mg by mouth once daily Amlodipine 10 mg tablet Discontinued 5 mg PO DAILY September 08, 2023 3:26pm January 20, 2024 12:43pm Start: 06-29-2021 End: 10-11-2023 take 1 tablet by mouth once daily Amlodipine 10 mg tablet Discontinued 10 mg PO DAILY 90 January 17, 2022 11:52am September 08, 2023 3:26pm Start: 03-01-2021 End: 01-17-2022 take 1 tablet by mouth once daily Amlodipine 5 mg tablet Discontinued 5 mg PO DAILY 1 3 June 25, 2021 3:53pm January 17, 2022 11:12am Start: 10-23-2020 End: 03-01-2021 take 1 tablet by mouth once daily Amlodipine 10 mg tablet Discontinued 10 mg PO DAILY 90 January 01, 2021 11:31am March 01, 2021 4:08pm Start: 11-02-2018 End: 10-13-2020 take 1 tablet by mouth once daily Amlodipine 5 mg tablet Discontinued 5 mg PO DAILY November 02, 2018 12:00am October 13, 2020 2:27pm Start: 07-02-2018 End: 11-02-2018 take 5 mg by mouth once daily Amlodipine 10 mg tablet Discontinued 5 mg PO daily July 02, 2018 4:16pm November 02, 2018 2:10pm Start: 07-02-2018 End: 11-02-2018 take 5 mg by mouth once daily Amlodipine Discontinued 5 MG PO daily July 02, 2018 4:16pm November 02, 2018 2:10pm Start: 03-11-2017 End: 11-02-2018 take 1 tablet by mouth once daily Amlodipine 10 mg tablet Discontinued 10 mg PO daily March 11, 2017 1:00am July 02, 2018 4:16pm Comment on above: Take 1 tablet by [facility] once daily. BIPAP (20 sources) Start: 10-01-2018 BIPAP Indications: PARKER (obstructive sleep apnea) Settings 16/ with BUR 12, suitable mask per pt preference (Airfit F30), chin strap, head gear, humidity, tubing, lifetime supplies. G47.33 PARKER 1 Device 10/01/2018 Active Start: 10-01-2018 BIPAP Indicati ons: PARKER (obstructive sleep apnea) Settings 16/11 with BUR 12, suitable mask per pt preference (Airfit F30), chin strap, head gear, humidity, tubing, lifetime supplies. G47.33 PARKER 1 Device 0 10/01/2018 Active Comment on above: Settings 1611 with BUR 12, suitable mask per pt preference (Airfit F30), chin strap, head gear, humidity, tubing, lifetime supplies. G47.33 PARKER cholecalciferol 0.025 mg oral tablet (20 sources) Vitamin D Start: 10-14-19 21 take 1 tablet by mouth twice daily Cholecalciferol (Vitamin D3) 25 mcg (1,000 unit) tablet Active 25 ug PO TWICE A DAY October 13, 2020 12:00am SUPPLEMEN Start: 10-04-2020 take 1 capsule by [facility] twice daily Cholecalciferol, Vitamin D3, (VITAMIN D) 25 mcg (1,000 unit) cap Take 1 capsule by mouth twice daily. 60 capsule 10/04/2020 Active Comment on above: Take 1 capsule by [facility] twice daily. ezetimibe 10 mg oral tablet (20 sources) Dietary Cholesterol Absorption Inhibitor Start: 11-10-2020 End: 04-15-2025 take 1 tablet by mouth once daily ezetimibe (ZETIA) 10 mg tablet Take 1 tablet by mouth once daily. 90 tablet 3 04/15/2024 04/15/2025 Active Comment on above: Take 1 tablet by karl th once daily. ferrous sulfate 325 mg oral tablet (20 sources) Start: 09-06-2024 take 1 tablet by mouth once daily Ferrous Sulfate (Ferosul) 325 mg (65 mg iron) tablet Active 325 mg PO daily September 06, 2024 12:00am Start: 07-29-2023 End: 08-04-2024 take 1 tablet by mouth once daily ferrous sulfate (IRON) 325 mg (65 mg iron) tablet Take 1 tablet by mouth once daily. 90 tablet 3 08/05/2024 Active Start: 11-30-2022 End: 02-06-2023 take 1 tablet by mouth every other day Ferrous Sulfate 325 mg (65 mg iron) tablet Discontinued 325 mg PO EVERY OTHER DAY 30 November 30, 2022 12:00am February 06, 2023 2:11pm End: 07-29-2023 take 1 tablet by mouth once daily ferrous sulfate (IRON) 325 mg (65 mg iron) tablet Take 325 mg by mouth once daily. 0 07/29/2023 Discontinued Comment on above: Take 325 mg by mouth every other day. Take 325 mg by mouth once daily. furosemide 40 mg oral tablet (20 sources) Loop Diuretic Start: 07-09-2023 End: 10-25-2024 take 1 tablet by mouth once daily furosemide (LASIX) 40 mg tablet Take 1 tablet by mouth once daily. 07/09/2023 Active Start: 09-24-2022 End: 11-13-2022 take 1 tablet by mouth once daily Furosemide 40 mg tablet Discontinued 0 .ROUTE .COMPLEX 90 3 October 16, 2022 10:36am November 13, 2022 11:33am TAKE 1 TABLET BY MOUTH DAILY Start: 09-24-2022 End: 11-13-2022 take 1 tablet by mouth twice daily Furosemide (Lasix) 40 mg tablet Discontinued 40 mg PO TWICE A DAY 60 October 01, 2022 9:17am October 04, 2022 12:22pm this is a dose increase Start: 03-11-2017 End: 04-03-2017 take 1 tablet by mouth once daily Furosemide 20 mg tablet Discontinued 20 mg PO daily March 11, 2017 1:00am April 03, 2017 3:14pm Comment on above: Take 40 mg by mouth once daily. losartan potassium 50 mg oral tablet (20 sources) Angiotensin 2 Receptor Alvaro Start: 07-21-2024 take 1 tablet by mouth once daily losartan (COZAAR) 50 mg tablet Take 1 tablet by mouth once daily. 90 tablet 3 07/21/2024 Active Start: 10-23-2020 End: 07-19-2024 take 1 tablet by mouth once daily losartan (COZAAR) 50 mg tablet Take 1 tablet by mouth once daily. 90 tablet 3 07/21/2024 Active Start: 03-11-2017 End: 10-13-2020 take 1 tablet by mouth once daily Losartan 50 mg tablet Discontinued 50 mg PO daily 90 3 June 21, 2019 3:44pm October 13, 2020 2:26pm Comment on above: Take 1 tablet by karl th once daily. Magnesium (18 sources) Start: 01-17-2022 take 1 tablet by mouth once daily Magnesium 200 mg tablet Active 200 mg PO DAILY January 17, 2022 1:00am SUPPLEMENT Start: 01-17-2022 take 200 mg by mouth once sandra y Magnesium Active 200 MG PO DAILY January 17, 2022 1:00am Start: 01-17-2022 take 200 mg by mouth once sandra y Magnesium Active 200 MG PO DAILY January 17, 2022 12:00am magnesium oxide 200 mg magnesium chew (20 sources) Start: 06-29-2021 take 1 tablet by mouth once daily magnesium oxide 200 mg magnesium chew Take 1 tablet by mouth once daily. 06/29/2021 Active Start: 06-29-2021 take 1 tablet by karl th once daily magnesium oxide 200 mg magnesium chew Take 1 tablet by mouth once daily. 0 06/29/2021 Active Start: 06-29-2021 magnesium oxid e 200 mg magnesium chew Take by mouth. 0 06/29/2021 Active Comment on above: Take by mouth. Take 1 tablet by karl th once daily. metoprolol tartrate 25 mg oral tablet (20 sources) beta-Adrenergic Alvaro Start: 09-29-2023 End: 09-06-2024 Metoprolol Tartrate 50 mg tablet Discontinued 25 mg PO Q12H September 29, 2023 9:19am September 06, 2024 4:10pm Start: 08-28-2022 End: 12-01-2023 take 1 tablet by mouth twice daily metoprolol tartrate, short acting, (LOPRESSOR) 25 mg tablet Indications: Essential hypertension Take 1 tablet by mouth two times a day. 180 tablet 3 12/01/2023 Active Start: 08-12-2022 End: 11-17-2022 take 1 tablet by mouth twice daily Metoprolol Tartrate 50 mg tablet Discontinued 50 mg PO TWICE A DAY 180 3 September 02, 2022 8:13am November 17, 2022 9:27pm Start: 08-12-2022 End: 12-02-2022 Metoprolol Tartrate 50 mg ta blet Discontinued 50 mg PO .qam 180 0 November 17, 2022 9:28pm December 02, 2022 10:50am 50mg ev AM, 25mg ev night Start: 08-12-2022 End: 09-29-2023 Metoprolol Tartrate 50 mg ta blet Discontinued 50 mg PO Q12H December 02, 2022 12:00am September 29, 2023 9:19am 50mg ev AM, 25mg ev night Start: 03-11-2017 End: 08-12-2022 take 1 tablet by mouth twice daily Metoprolol Tartrate 25 mg tablet Discontinued 25 mg PO TWICE A DAY 60 12 August 12, 2022 11:19am August 12, 2022 4:53pm Comment on above: Take 1 tablet by karl th twice daily. Take 1 tablet by karl th two times a day. OTC PRODUCT (20 sources) Start: 06-17-2005 take 1 tablet by mouth once daily OTC PRODUCT Take 1 tablet by mouth once daily. 0 06/17/2005 Active Start: 06-17-2005 OTC PRODUCT ga rlic one tablet daily 0 06/17/2005 Active Comment on above: garlic one tablet da arleen Take 1 tablet by karl th once daily. pantoprazole 40 mg delayed release oral tablet (20 sources) Proton Pump Inhibitor Start: 11-06-19 End: 01-13-20 take 1 tablet by mouth once daily pantoprazole DR (PROTONIX) 40 mg tablet Indications: Anemia, unspecified type , On anticoagulant therapy Take 1 tablet by mouth once daily. 90 tablet 3 01/13/2024 01/12/2025 Active Comment on above: Take 40 mg by mouth once daily. Take 1 tablet by karl th once daily. perflutren lipid microspheres 1.3 mL in NaCl (PF) 0.9% 10 mL injection (DEFINITY) (20 sources) Start: 11-08-19 End: 02-06-20 perflutren lipid microspheres 1.3 mL in NaCl (PF) 0.9% 10 mL injection (Visonys) microencapsulated potassium chloride 20 meq extended release oral tablet (20 sources) Start: 07-15-19 End: 09-07-19 take 1 tablet by mouth once daily as needed Potassium Chloride 20 mEq tablet,ER particles/crystals Active 20 meq PO DAILY September 06, 2024 3:28pm When taking PRN Lasix Start: 09-24-2022 End: 07-14-2024 take 1 tablet by mouth once daily potassium chloride 20 mEq TbER Take 1 tablet by mouth once daily. 30 tablet 3 10/28/2022 Active Start: 09-24-2022 End: 10-16-2022 take 1 tablet by mouth twice daily Potassium Chloride 20 mEq tablet extended release Discontinued 20 meq PO TWICE A DAY 60 1 October 01, 2022 9:18am October 04, 2022 12:22pm this is a dose increase Start: 09-24-2022 End: 10-28-2022 Start: 03-11-2017 End: 10-13-2020 take 1 capsule by mouth once daily Potassium Chloride 10 mEq capsule, extended release Discontinued 10 meq PO daily 90 3 July 14, 2020 2:33pm October 13, 2020 2:27pm Comment on above: Take 1 tablet by karl th every 12 hours. Take 1 tablet by karl th once daily. predniSONE 10 mg oral tablet (1 source) Start: End: predniSONE (DELTASONE) 10 mg tablet Indications: Acute right-sided low back pain without sciatica , Acute upper back pain , Acute neck pain Take 4 tabs daily for 3 days, then 2 tabs daily for 3 days, then 1 tab daily for 3 days with food. 21 tablet 0 10/10/2022 10/19/2022 Active Comment on above: Take 4 tabs daily fo r 3 days, then 2 tabs daily for 3 days, then 1 tab daily for 3 days with food. Quercetin (19 sources) take 1 tablet by mouth once daily QUERCETIN ORAL Take 1 tablet by mouth once daily. Active 125 ml sodium chloride 9 mg/ml prefilled syringe (20 sources) Start: 3 End: 4 sodium chloride 0.9 % (flush) 10 mL (BD POSIFLUSH) tamsulosin hydrochloride 0.4 mg oral capsule (20 sources) alpha-Adrenergic Alvaro Start: 2 End: 5 take 1 capsule by mouth once daily at bedtime tamsulosin (FLOMAX) 0.4 mg Take 1 capsule by mouth daily at bedtime. 90 capsule 3 01/13/2024 01/12/2025 Active Comment on above: Take 1 capsule by mo [facility] daily at bedtime. vitamin b12 1 mg oral tablet (20 sources) Vitamin B12 Start: 2 End: 5 take 1 tablet by mouth once daily cyanocobalamin (VITAMIN B-12) 1,000 mcg tab Indications: Mild anemia Take 1 tablet by mouth once daily. 90 tablet 3 01/13/2024 01/12/2025 Active Start: 10-04-2020 End: 12-31-2021 take 1 tablet by mouth once daily cyanocobalamin (VITAMIN B-12) 1,000 mcg tab Indications: Mild anemia Take 1 tablet by mouth once daily. 90 tablet 3 12/31/2021 Active Comment on above: Take 1 tablet by [facility] once daily. zinc acetate 25 mg oral capsule (20 sources) Start: 01-17-2022 take 1 capsule by mouth once daily Zinc Acetate, Oral, 25 mg (zinc) cap Take 1 capsule by mouth once daily. 01/17/2022 Active Comment on above: DAILY 1 capsule once daily . Take 1 capsule by [facility] once daily. (20 sources) Start: 01-17-2022 Start: 06-26-2020 Start: 06-26-2020 End: 10-20-2020 Start: 03-11-2017 End: 06-21-2019 Start: 03-11-2017 End: 10-20-2020 Completed/Discontinued Medications Medication Drug Class(es) Dates Sig (Normalized) Sig (Original) acetaminophen 325 mg oral tablet (20 sources) Start: 10-20-2020 End: 09-06-2024 take 2 tablets by mouth every six hours as needed for pain Acetaminophen 325 mg tablet Discontinued 650 mg PO EVERY 6 HOURS as needed for pain October 20, 2020 12:00am September 06, 2024 3:34pm Start: 10-20-2020 acetaminophen 325 mg / HYDROcodone bitartrate 5 mg oral tablet (20 sources) Opioid Agonist Start: 06-24-2024 End: 09-06-2024 Hydrocodone-Acetaminophen 5- 325 mg tablet Discontinued 1 {tbl} PO EVERY 6 HOURS NEEDED as needed for Pain 10 3 0 June 24, 2024 September 06, 2024 3:33pm Traumatic rupture of left hamstring tendon half-way current use of anticoagulant therapy 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 Start: 10-05-2022 End: 11-01-2022 Hydrocodone-Acetaminophen 5- 325 mg tablet Discontinued 1 {tbl} PO Q8H as needed for pain 10 3 0 October 05, 2022 November 01, 2022 7:32pm Acute myofascial strain of lumbar region Strain of muscle, fascia and tendon of lower back, initial encounter Start: 10-05-2022 End: 11-01-2022 Start: 10-05-2022 End: 11-01-2022 take 1 tablet by mouth every eight hours Hydrocodone-Acetaminophen Discontinued 1 TABLET PO Q8H 10 3 October 05, 2022 November 01, 2022 7:32pm amoxicillin 500 mg oral tablet (20 sources) Penicillin-class Antibacterial Start: 07-02-2024 End: 07-12-2024 take 1 tablet by mouth twice daily Amoxicillin 500 mg tablet Discontinued 500 mg PO TWICE A DAY 20 10 0 July 02, 2024 12:00am July 11, 2024 12:00am July 12, 2024 12:08am Start: 08-17-2021 End: 11-01-2022 take 4 tablets by mouth once daily Amoxicillin 500 mg tablet Discontinued 2000 mg PO DAILY July 22, 2022 3:26pm November 01, 2022 7:31pm before dental visits Start: 08-17-2021 End: 11-01-2022 apixaban 2.5 mg oral tablet (20 sources) Factor Xa Inhibitor Start: 02-19-2023 End: 05-18-2024 take 1 tablet by mouth twice daily Apixaban (Eliquis) 2.5 mg tablet Discontinued 2.5 mg PO TWICE A DAY 180 3 March 05, 2024 4:29pm May 18, 2024 12:02pm Start: 08-12-2022 take 2.5 mg by mouth twice daily apixaban (ELIQUIS) 5 mg tab(s) Indications: Atrial fibrillation, unspecified type (HCC) Take 2.5 mg by mouth two times a day. 08/12/2022 Active Start: 08-12-2022 End: 02-14-2023 take 1 tablet by mouth twice daily Apixaban (Eliquis) 5 mg tablet Discontinued 5 mg PO TWICE A DAY 60 October 28, 2022 11:34am February 14, 2023 5:03pm Start: 10-20-2020 End: 10-20-2020 take 1 tablet by mouth twice daily Apixaban (Eliquis) 5 mg tablet Discontinued 5 mg PO TWICE A DAY October 20, 2020 12:00am October 20, 2020 3:01pm Start: 10-10-2020 End: 11-01-2021 take 1 tablet by mouth twice daily Apixaban (Eliquis) 2.5 mg tablet Discontinued 2.5 mg PO TWICE A DAY 180 November 28, 2020 12:18pm March 01, 2021 4:07pm Comment on above: Take 1 tablet by karl twice daily. Take 5 mg by mouth t wice daily. Take 2.5 mg by mouth two times a day. ascorbic acid 500 mg oral tablet (20 sources) Vitamin C Start: 11-30-2022 End: 02-06-2023 take 1 tablet by mouth twice daily Ascorbic Acid (Vitamin C) 500 mg tablet Discontinued 500 mg PO TWICE A DAY 60 2 November 30, 2022 12:00am February 06, 2023 2:11pm Start: 06-26-2020 End: 01-20-2024 take 1 g by mouth once daily Ascorbic Acid (Vitamin C) 1,000 mg tablet Discontinued 1 g PO DAILY June 26, 2020 12:00am January 20, 2024 12:43pm SUPPLEMENT Start: 06-26-2020 take 1 g by mouth once daily A scorbic Acid (Vitamin C) Active 1 GM PO DAILY June 26, 2020 12:00am Start: 06-26-2020 take 1 g by mouth once daily A scorbic Acid (Vitamin C) Active 1 GM PO DAILY June 26, 2020 12:00am Comment on above: Take 1,000 mg by karl th once daily. aspirin 81 mg chewable tablet (20 sources) Platelet Aggregation Inhibitor, Nonsteroidal Anti-inflammatory Drug Start: End: take 1 tablet by mouth once daily aspirin 81 mg chewable tablet 1 tablet by ORAL/FEEDING TUBE route once daily. 30 tablet 2 10/05/2020 07/09/2023 Discontinued (Discontinued by another Health Care Provider) Start: 10-05-2020 take 1 tablet by karl th once daily aspirin 81 mg chewable tablet 1 tablet by ORAL/FEEDING TUBE route once daily. 30 tablet 2 10/05/2020 Active Start: 03-11-2017 End: 09-08-2023 take 1 tablet by mouth once daily Aspirin 81 mg tablet,delayed release (DR/EC) Discontinued 81 mg PO daily March 11, 2017 1:00am September 08, 2023 3:20pm SEE PCP Comment on above: 1 tablet by ORAL/FEE DING TUBE route once daily. cefTRIAXone 2000 mg injection (20 sources) Cephalosporin Antibacterial Start: 11-30-19 End: 07-10-19 Ceftriaxone 2 gram recon soln Discontinued 2 g IV Q24H 39 0 November 29, 2022 12:00am July 09, 2024 1:56pm dx: lumber discitis stop date 01/08/23 weekly bmp, cbc, and esr. fax to [phone] cephalexin 500 mg oral capsule (20 sources) Cephalosporin Antibacterial Start: 11-06-19 End: 11-28-19 take 1 capsule by mouth three times daily Cephalexin 500 mg capsule Discontinued 500 mg PO THREE TIMES A DAY 0 November 05, 2022 12:00am November 27, 2022 12:43pm start on 11/06/22 famotidine 20 mg oral tablet (20 sources) Histamine-2 Receptor Antagonist Start: 07-09-19 End: 07-09-19 24 take 1-2 tablets by mouth at bedtime as needed famotidine (PEPCID) 20 mg tablet Indications: Gastroesophageal reflux disease without esophagitis Take 1-2 tablets by mouth at bedtime as needed. 180 tablet 3 07/03/2022 07/09/2023 Discontinued (Course of therapy completed) Start: 06-21-2019 End: 02-06-2023 take 2 tablets by mouth at bedtime Famotidine 20 mg tablet Discontinued 40 mg PO AT BEDTIME June 21, 2019 12:00am February 06, 2023 2:13pm SEE PCP Start: 06-21-2019 Start: 06-21-2019 take 40 mg by mouth at bedtime Famotidine Active 40 MG PO AT BEDTIME June 21, 2019 12:00am Comment on above: Take 1-2 tablets by mouth at bedtime as needed. fluticasone propionate 0.05 mg/actuat metered dose nasal spray (20 sources) Corticosteroid Start: 12-27-19 21 take 2 spray(s) by mouth once daily fluticasone (FLONASE) 50 mcg/actuation nasal spray Indications: Bacterial sinusitis Use 2 Sprays in each nostril once daily. Rinse mouth after use. 1 Each 0 12/26/2020 Active Comment on above: Use 2 Sprays in each nostril once daily. Rinse mouth after use. garlic preparation 300 mg oral tablet (19 sources) Non-Standardized Food Allergenic Extract Start: 03-11-19 End: 10-21-19 take 1 tablet by mouth once daily garlic tablet Discontinued 300 MG PO daily March 11, 2017 8:49pm October 20, 2020 2:37pm Start: 03-11-2017 End: 10-20-2020 take 1 tablet by mouth once daily Garlic tablet Discontinued 300 mg PO daily March 11, 2017 1:00am October 20, 2020 2:37pm Start: 03-11-2017 End: 10-20-2020 take 1 tablet by mouth once daily garlic tablet Discontinued 300 MG PO daily March 11, 2017 1:00am October 20, 2020 2:37pm Start: 03-11-2017 End: 10-20-2020 take 1 tablet by mouth once daily garlic tablet Discontinued 300 MG PO daily March 11, 2017 12:00am October 20, 2020 1:37pm indapamide 1.25 mg oral tablet (20 sources) Thiazide-like Diuretic Start: 04-03-2017 End: 10-13-2020 take 1 tablet by mouth once daily in the morning Indapamide 1.25 mg tablet Discontinued 1.25 mg PO EVERY MORNING June 26, 2020 2:16pm October 13, 2020 2:27pm iron sucrose iv piggyback 200 mg in NaCl 0.9% 100 mL (VENOFER) (5 sources) Start: 10-08-2023 End: 10-08-2023 iron sucrose iv piggyback 200 mg in NaCl 0.9% 100 mL (VENOFER) Start: 10-06-2023 End: 10-06-2023 iron sucrose iv piggyback 20 0 mg in NaCl 0.9% 100 mL (VENOFER) Start: 10-01-2023 End: 10-01-2023 iron sucrose iv piggyback 20 0 mg in NaCl 0.9% 100 mL (VENOFER) Start: 09-29-2023 End: 09-29-2023 iron sucrose iv piggyback 20 0 mg in NaCl 0.9% 100 mL (VENOFER) Start: 09-24-2023 End: 09-24-2023 iron sucrose iv piggyback 20 0 mg in NaCl 0.9% 100 mL (VENOFER) iv contrast (will be provided with radiology test) (14 sources) Start: 07-15-2022 End: 11-07-2022 inject 1 dose intravenously once iv contrast (will be provided with radiology test) Indications: Thoracic aortic aneurysm without rupture, unspecified part (HCC) , Examination of participant in clinical trial CTA CHEST (NONGATED) ABD/PEL WO/W IVCON - No IV access, insert saline lock prior to the sedation, infusion, injection for imaging exam. Discontinue saline lock post exam. If Pt. has a central line or IVAD, may access for administration according to line specific nursing protocol. Once exam is complete flush line and de-access according to line specific nursing protocol in the CT contrast administration guidelines link. 1 Each 0 07/15/2022 11/07/2022 Discontinued (Course of therapy completed) Start: 07-15-2022 inject 1 dose intravenously on ce iv contrast (will be provided with radiology test) Indications: Thoracic aortic aneurysm without rupture, unspecified part (HCC) , Examination of participant in clinical trial CTA CHEST (NONGATED) ABD/PEL WO/W IVCON - No IV access, insert saline lock prior to the sedation, infusion, injection for imaging exam. Discontinue saline lock post exam. If Pt. has a central line or IVAD, may access for administration according to line specific nursing protocol. Once exam is complete flush line and de-access according to line specific nursing protocol in the CT contrast administration guidelines link. 1 Each 0 07/15/2022 Active Start: 11-01-2021 End: 11-02-2021 inject 1 dose intravenously once iv contrast (will be provided with radiology test) Indications: S/P ascending aortic aneurysm repair , Ascending aortic aneurysm (HCC) , 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 , S/P AVR (aortic valve replacement) , S/P TVR (tricuspid valve repair) , Aneurysm of subclavian artery (HCC) , Disorder of artery or arteriole (HCC) CTA CHEST (NONGATED) ABD/PEL WO/W IVCON - No IV access, insert saline lock prior to the sedation, infusion, injection for imaging exam. Discontinue saline lock post exam. If Pt. has a central line or IVAD, may access for administration according to line specific nursing protocol. Once exam is complete flush line and de-access according to line specific nursing protocol in the CT contrast administration guidelines link. 1 Each 0 11/01/2021 11/02/2021 Active Start: 09-19-2021 End: 11-01-2021 inject 1 dose intravenously once iv contrast (will be provided with radiology test) Indications: Thoracic aortic aneurysm without rupture (HCC) , Examination of participant in clinical trial CTA CHEST (NONGATED) ABD/PEL WO/W IVCON - No IV access, insert saline lock prior to the sedation, infusion, injection for imaging exam. Discontinue saline lock post exam. If Pt. has a central line or IVAD, may access for administration according to line specific nursing protocol. Once exam is complete flush line and de-access according to line specific nursing protocol in the CT contrast administration guidelines link. 1 Each 0 09/19/2021 11/01/2021 Discontinued (Other) Start: 09-19-2021 inject 1 dose intravenously on ce iv contrast (will be provided with radiology test) Indications: Thoracic aortic aneurysm without rupture (HCC) , Examination of participant in clinical trial CTA CHEST (NONGATED) ABD/PEL WO/W IVCON - No IV access, insert saline lock prior to the sedation, infusion, injection for imaging exam. Discontinue saline lock post exam. If Pt. has a central line or IVAD, may access for administration according to line specific nursing protocol. Once exam is complete flush line and de-access according to line specific nursing protocol in the CT contrast administration guidelines link. 1 Each 0 09/19/2021 Active Comment on above: CTA CHEST (NONGATED) ABD/PEL WO/W IVCON - No IV access, insert saline lock prior to the sedation, infusion, injection for imaging exam. Discontinue saline lock post exam. If Pt. has a central line or IVAD, may access for administration according to line specific nursing protocol. Once exam is complete flush line and de-access according to line specific nursing protocol in the CT contrast administration guidelines link. nystatin 282110 unt/ml oral suspension (20 sources) Polyene Antifungal Start: 5 End: take 1 mL by mouth once daily Nystatin 100,000 unit/mL suspension Discontinued 5 mL PO daily 60 7 0 July 09, 2024 12:00am July 15, 2024 12:00am July 16, 2024 12:08am swish and swallow Start: 11-05-2022 End: 11-27-2022 take [id number] [IU] by mouth four times daily Nystatin 100,000 unit/mL Suspension Discontinued [id number] U PO 4 TIMES DAILY 150 0 November 05, 2022 12:00am November 27, 2022 12:44pm raNITIdine 300 mg oral tablet (19 sources) Histamine-2 Receptor Antagonist Start: 03-11-2017 End: 06-21-2019 take 1 tablet by mouth at bedtime Ranitidine Hcl 300 mg tablet Discontinued 300 mg PO AT BEDTIME March 11, 2017 1:00am June 21, 2019 3:31pm ubidecarenone 100 mg oral capsule (20 sources) Start: 07-22-2022 End: 01-20-2024 take 10 capsules by mouth once daily Coenzyme Q10 100 mg capsule Discontinued 100 mg PO DAILY July 22, 2022 12:00am January 20, 2024 12:43pm SUPPLEMENT Start: 10-04-2020 End: 01-30-2022 take 1 capsule by mouth once daily coenzyme Q10 (COENZYME Q-10) 100 mg cap capsule Take 1 capsule by mouth once daily. 30 capsule 0 12/31/2021 Active Start: 04-03-2017 End: 07-22-2022 Coenzyme Q10 (Co Q-10) 10 mg capsule Discontinued 10 mg PO daily April 03, 2017 1:00am July 22, 2022 3:24pm Comment on above: Take 1 capsule by mo uth once daily. Zinc (19 sources) Start: 06-26-2020 End: 10-20-2020 take 50 mg by mouth once daily Zinc Discontinued 50 MG PO DAILY June 26, 2020 2:19pm October 20, 2020 2:37pm Start: 06-26-2020 End: 10-20-2020 take 1 tablet by mouth once daily Zinc 50 mg tablet Discontinued 50 mg PO DAILY June 26, 2020 12:00am October 20, 2020 2:37pm Start: 06-26-2020 End: 10-20-2020 take 50 mg by mouth once daily Zinc Discontinued 50 MG PO DAILY June 26, 2020 12:00am October 20, 2020 2:37pm Start: 06-26-2020 End: 10-20-2020 take 50 mg by mouth once daily Zinc Discontinued 50 MG PO DAILY June 25, 2020 11:00pm October 20, 2020 1:37pm Problems Active Problems Problem Classification Problem Date Documented Da te Episodic/Chronic Anxiety disorders (1 source) Mixed anxiety and depressive disorder; Translations: [Anxiety disorder, unspecified] 06-14-2024 Chronic Aortic; peripheral; and visceral artery aneurysms (20 sources) Aneurysm of thoracic aorta; Translations: [Thoracic aortic aneurysm, without rupture] Onset: 8 10-04-2020 Chronic Comment on above: 4.8 x 4.7 per chest CTA 06/24/17 Asthma (20 sources) Unspecified asthma, uncomplicated; Translations: [Asthma, unspecified type, unspecified] Onset: 5 10-26-2004 Chronic Bacterial infection; unspecified site (20 sources) Bacteremia; Translations: [Bacteremia] 11-04-2022 Episodic Cardiac dysrhythmias (20 sources) Atrial fibrillation; Translations: [Unspecified atrial fibrillation] Onset: 1 10-10-2022 Chronic Chronic kidney disease (20 sources) Chronic kidney disease stage 3; Translations: [Stage 3 chronic kidney disease, unspecified whether stage 3a or 3b CKD (HCC)] Onset: 8 Chronic Chronic kidney disease (2 sources) Chronic kidney disease; Translations: [Stage 3 chronic kidney disease, unspecified whether stage 3a or 3b CKD (HCC)] Onset: 8 Coronary atherosclerosis and other heart disease (20 sources) Coronary atherosclerosis; Translations: [Atherosclerotic heart disease of [place] coronary artery without angina pectoris] 11-01-2022 Chronic Deficiency and other anemia (20 sources) Iron deficiency anemia due to blood loss; Translations: [Iron deficiency anemia secondary to blood loss (chronic)] Onset: 3 02-05-2023 Chronic Deficiency and other anemia (1 source) Anemia of chronic disease; Translations: [Anemia associated with stage 3 chronic renal failure (HCC)] 07-12-2024 Chronic Deficiency and other anemia (1 source) Anemia in chronic kidney disease; Translations: [Anemia associated with stage 3 chronic renal failure (HCC)] Onset: 5 Chronic Deficiency and other anemia (1 source) Iron deficiency anemia secondary to blood loss (chronic); Translations: [Iron deficiency anemia due to chronic blood loss] Onset: 3 Chronic Deficiency and other anemia (20 sources) Anemia; Translations: [Anemia, unspecified] Episodic Deficiency and other anemia (20 sources) Chronic anemia; Translations: [Anemia, unspecified] 11-01-2022 Episodic Deficiency and other anemia (4 sources) Anemia, unspecified; Translations: [Anemia, unspecified] Onset: 4 11-05-2022 Episodic Deficiency and other anemia (1 source) Deficiency and other anemia; Translations: [Anemia associated with stage 3 chronic renal failure (HCC)] Onset: 5 Disorders of lipid metabolism (20 sources) Mixed hyperlipidemia; Translations: [Mixed hyperlipidemia] Onset: 5 Chronic Esophageal disorders (5 sources) Gastroesophageal reflux disease without esophagitis; Translations: [Gastro-esophageal reflux disease without esophagitis] Onset: 5 Chronic Essential hypertension (20 sources) Essential hypertension; Translations: [Essential (primary) hypertension] Onset: 4 Resolved: 1 Chronic Gastrointestinal hemorrhage (1 source) Gastrointestinal hemorrhage; Translations: [Chronic or unspecified gastric ulcer with hemorrhage] 11-07-2022 Chronic Gastrointestinal hemorrhage (1 source) Upper gastrointestinal bleeding; Translations: [Gastrointestinal hemorrhage, unspecified] 11-25-2022 Episodic Heart valve disorders (20 sources) History of aortic valve replacement; Translations: [Presence of prosthetic heart valve] Onset: 4 Resolved: 8 07-25-2017 Chronic Comment on above: AVR #25mm Flores Va lve 09/27/20 @ [facility] ;#25 Ken Flores valve 2004 Hyperplasia of prostate (1 source) Benign prostatic hyperplasia without lower urinary tract symptoms; Translations: [Benign prostatic hyperplasia, unspecified whether lower urinary tract symptoms present] Onset: 5 Chronic Infective arthritis and osteomyelitis (except that caused by tuberculosis or sexually transmitted disease) (20 sources) Osteomyelitis of vertebra; Translations: [Osteomyelitis of vertebra, lumbar region] 11-27-2022 Chronic Malaise and fatigue (20 sources) Fatigue; Translations: [Other fatigue] 11-03-2022 Episodic Nutritional deficiencies (1 source) Vitamin D deficiency; Translations: [Vitamin D deficiency, unspecified] Chronic Nutritional deficiencies (1 source) Cobalamin deficiency; Translations: [Deficiency of other specified B group vitamins] Episodic Other acquired deformities (1 source) Other forms of scoliosis, lumbar region; Translations: [Levoscoliosis of lumbar spine] Onset: 3 Chronic Other acquired deformities (1 source) Scoliosis of lumbar spine; Translations: [Other forms of scoliosis, lumbar region] 11-13-2022 Chronic Other aftercare (20 sources) Long-term current use of anticoagulant; Translations: [half-way (current) use of anticoagulants] 11-01-2022 Episodic Other aftercare (11 sources) Drug therapy finding; Translations: [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 subclavian origin 09/27/20@ [facility] Other circulatory disease (20 sources) Presence of other vascular implants and grafts; Translations: [Blood vessel replaced by other means] Onset: 1 Chronic Other circulatory disease (3 sources) History of great vessel repair; Translations: [Presence of other vascular implants and grafts] Chronic Other circulatory disease (2 sources) Disorder of artery; Translations: [Disorder of arteries and arterioles, unspecified] Chronic Other circulatory disease (2 sources) History of aortic arch replacement; Translations: [Presence of other vascular implants and grafts] 10-09-2023 Chronic Other circulatory disease (20 sources) Low blood pressure; Translations: [Hypotension, unspecified] 11-01-2022 Episodic Other circulatory disease (20 sources) H/O: heart failure; Translations: [Personal history of other diseases of the circulatory system] 10-13-2022 Episodic Other circulatory disease (1 source) Hypotension, unspecified; Translations: [Hypotension, unspecified] 11-05-2022 Episodic Other circulatory disease (4 sources) Transient hypotension; Translations: [Hypotension, unspecified] 07-02-2024 Episodic Other ear and sense organ disorders (2 sources) Hearing loss; Translations: [Unspecified hearing loss, unspecified ear] 09-22-2024 Chronic Other ear and sense organ disorders (1 source) Unspecified hearing loss, unspecified ear; Translations: [BARROW (hard of hearing)] Onset: 5 Chronic Other gastrointestinal disorders (20 sources) Malabsorption - iron; Translations: [Intestinal malabsorption, unspecified] Onset: 3 02-05-2023 Chronic Other gastrointestinal disorders (1 source) Intestinal malabsorption, unspecified; Translations: [Iron malabsorption] Onset: 3 Chronic Other lower respiratory disease (2 sources) Other forms of dyspnea; Translations: [Other forms of dyspnea] Onset: 5 Episodic Other male genital disorders (4 sources) Testicular mass; Translations: [Other specified disorders of the male genital organs] 06-14-2024 Episodic Other male genital disorders (1 source) Disorder of reproductive system; Translations: [Hydrocele, unspecified] 08-03-2024 Episodic Other male genital disorders (2 sources) Disorder of male genital organ; Translations: [Other hydrocele] 08-23-2024 Episodic Residual codes; unclassified (20 sources) Obstructive sleep apnea syndrome; Translations: [Obstructive sleep apnea (adult) (pediatric)] Onset: 3 Chronic Residual codes; unclassified (1 source) Obstructive sleep apnea (adult) (pediatric); Translations: [PARKER (obstructive sleep apnea)] Onset: Chronic Residual codes; unclassified (1 source) H/O: major vascular surgery; Translations: [Other specified postprocedural states] Episodic Residual codes; unclassified (2 sources) History of repair of ascending aorta; Translations: [Other specified postprocedural states] 10-09-2023 Episodic Spondylosis; intervertebral disc disorders; other back problems (20 sources) Spondylosis without myelopathy or radiculopathy, lumbar region; Translations: [Other intervertebral disc degeneration, lumbar region] Onset: 3 11-25-2022 Chronic Spondylosis; intervertebral disc disorders; other back problems (20 sources) Acute low back pain; Translations: [Acute right-sided low back pain without sciatica] Onset: 3 10-10-2022 Episodic Sprains and strains (20 sources) Lower back injury; Translations: [Strain of muscle, fascia and tendon of lower back, initial encounter] 10-13-2022 Episodic Past or Other Problems Problem Classification Problem Date Documented Date Episodic/Chronic Administrative/social admission (20 sources) Discharge status; Translations: [Encounter for administrative examinations, unspecified] Onset: 09-18-2020 Resolved: 10-10-2022 10-04-2020 Episodic Allergic reactions (20 sources) Asteatotic eczema; Translations: [Other specified dermatitis] Onset: 09-18-2006 Resolved: 10-10-2022 01-13-2011 Episodic Complications of surgical procedures or medical care (20 sources) Atrial fibrillation; Translations: [Other postprocedural complications and disorders of the circulatory system, not elsewhere classified] Onset: 09-27-2020 Resolved: 09-30-2020 10-04-2020 Episodic Diabetes mellitus without complication (20 sources) Hyperglycemia; Translations: [Hyperglycemia, unspecified] Onset: 09-27-2020 Resolved: 10-02-2020 Episodic Fluid and electrolyte disorders (20 sources) Hypervolemia; Translations: [Fluid overload, unspecified] Onset: 09-29-2020 Resolved: 10-02-2020 03-06-2021 Episodic Immunizations and screening for infectious disease (1 source) Encounter for immunization; Translations: [Encounter for immunization] Onset: 09-22-2024 Episodic Mycoses (20 sources) Onychomycosis; Translations: [Tinea unguium] Onset: 07-01-2012 Resolved: 10-10-2022 07-01-2012 Episodic Neoplasms of unspecified nature or uncertain behavior (20 sources) Neoplasm of uncertain behavior of skin; Translations: [Neoplasm of uncertain behavior of skin] Onset: 01-23-2006 Resolved: 10-10-2022 03-13-2009 Episodic Other aftercare (20 sources) 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; Translations: [Long-term (current) use of anticoagulants] Onset: 01-13-2024 11-05-2022 Episodic Other and unspecified benign neoplasm (20 sources) Senile angioma; Translations: [Hemangioma of skin and subcutaneous tissue] Onset: 07-17-2011 Resolved: 10-10-2022 07-17-2011 Episodic Other and unspecified benign neoplasm (20 sources) Benign neoplasm of skin of trunk; Translations: [Other benign neoplasm of skin of trunk] Onset: 01-23-2006 Resolved: 06-17-2013 06-17-2013 Episodic Other congenital anomalies (20 sources) Congenital ichthyosis of skin; Translations: [Congenital ichthyosis, unspecified] Onset: 03-11-2008 Resolved: 10-10-2022 03-11-2008 Chronic Other connective tissue disease (1 source) Pain in left thigh; Translations: [Pain in left thigh] Onset: 06-30-2024 Episodic Other lower respiratory disease (20 sources) Dyspnea on exertion; Translations: [Dyspnea, unspecified] Onset: 09-30-2020 09-30-2020 Episodic Other male genital disorders (1 source) Hydrocele, unspecified; Translations: [Left hydrocele] Onset: 08-03-2024 Episodic Other male genital disorders (1 source) Other specified disorders of the male genital organs; Translations: [Testicular mass] Onset: 06-18-2024 Episodic Other nervous system disorders (20 sources) Postoperative pain ; Translations: [Other acute postprocedural pain] Onset: 09-27-2020 10-04-2020 Episodic Other non-epithelial cancer of skin (20 sources) History of malignant neoplasm of skin; Translations: [Personal history of other malignant neoplasm of skin] Onset: 01-23-2006 Resolved: 03-13-2009 03-13-2009 Episodic Other screening for suspected conditions (not mental disorders or infectious disease) (20 sources) Patient encounter status; Translations: [Encounter for screening for malignant neoplasm of prostate] Onset: 06-14-2024 Episodic Other skin disorders (20 sources) Scar conditions and fibrosis of skin; Translations: [Scar conditions and fibrosis of skin] Onset: 01-23-2006 Resolved: 10-10-2022 07-10-2010 Episodic Other skin disorders (20 sources) Seborrheic keratosis; Translations: [Other seborrheic keratosis] Onset: 01-23-2006 06-17-2013 Episodic Other skin disorders (20 sources) Actinic keratosis; Translations: [Actinic keratosis] Onset: 09-18-2006 Resolved: 10-10-2022 07-10-2010 Episodic Other skin disorders (20 sources) Inflamed seborrheic keratosis; Translations: [Inflamed seborrheic keratosis] Onset: 09-18-2006 Resolved: 10-10-2022 06-17-2013 Episodic Other skin disorders (20 sources) Disorder of skin; Translations: [Hypertrophic disorder of the skin, unspecified] Onset: 09-18-2006 Resolved: 10-10-2022 03-13-2009 Episodic Other skin disorders (20 sources) Asteatosis cutis; Translations: [Xerosis cutis] Onset: 01-13-2011 Resolved: 10-10-2022 01-13-2011 Episodic Other skin disorders (20 sources) Solar lentigo; Translations: [Other melanin hyperpigmentation] Onset: 07-17-2011 Resolved: 10-10-2022 07-17-2011 Episodic Other skin disorders (20 sources) Disorder of skin pigmentation; Translations: [Disorder of pigmentation, unspecified] Onset: 01-23-2006 Resolved: 06-17-2013 06-17-2013 Episodic Other skin disorders (20 sources) Disorder of sebaceous gland; Translations: [Other specified follicular disorders] Onset: 03-11-2008 Resolved: 06-17-2013 06-17-2013 Episodic Other skin disorders (20 sources) Dystrophia unguium; Translations: [Nail dystrophy] Onset: 07-01-2012 Resolved: 08-31-2015 08-31-2015 Episodic Pleurisy; pneumothorax; pulmonary collapse (20 sources) Atelectasis; Translations: [Atelectasis] Onset: 09-27-2020 Resolved: 10-10-2022 10-04-2020 Episodic Residual codes; unclassified (20 sources) Sleep apnea; Translations: [Sleep apnea, unspecified] Onset: 10-26-2004 Resolved: 01-17-2014 01-17-2014 Chronic Residual codes; unclassified (20 sources) History of tricuspid valve repair; Translations: [Other specified postprocedural states] Onset: 09-07-2020 10-04-2020 Episodic Comment on above: #28mm MC3 09/27/20 @ [facility] Residual codes; unclassified (20 sources) Past history of procedure; Translations: [Other specified postprocedural states] Onset: 09-07-2020 07-22-2022 Episodic Comment on above: 2.5mm x13 [address] ent 09/27/20 @ [facility] Residual codes; unclassified (20 sources) Other specified postprocedural states; Translations: [Other postprocedural status] Onset: 09-07-2020 Episodic Results Test Name Value Interpretation Reference Range Facility Gastroenterology Visit Repor ton 01-10-2025 Gastroenterology Visit Report [facility] [address] [place] [address] OFFICE VISIT Date of Service: 01/10/25 MR#: [id number] Acct: [id number] Name: DAGOBERTO BAXTER JrLa Rep #: [id number] : 1940 Provider: Darryl Pimentel DO Age/Sex: 84/M [place] [facility] [place] Status: Signed Intake Vital Signs 06/24/24 09:10 11/04/24 15:38 Height 5 ft 8 in 5 ft 8 in Intake Visit Reasons: 6 M FU Allergies Migovoh-MYM-AuL Reductase Inhibitor (Zpzwvlt-Bwr-Dei Reductase Inhibitor) Adverse Reaction (Severe, Verified 01/10/25 14:52) intolerence hydrochlorothiazide Adverse Reaction (Intermediate, Verified 01/10/25 14:52) unknown red yeast rice Adverse Reaction (Intermediate, Verified 01/10/25 14:52) unknown Medications ???Medication ???Instructions ???Recorded ???Confirmed ???Type cholecalciferol (vitamin D3) 25 25 mcg PO BID SUPPLEMEN 10/13/20 1 03/12/24 History mcg (1,000 unit) tablet losartan 50 mg tablet 50 mg PO DAILY #90 tabs 11/28/20 1 03/12/24 Rx cyanocobalamin (vitamin B-12) 1,000 mcg PO DAILY SEE PCP 2 01/10/25 History 1,000 mcg tablet magnesium 200 mg tablet 200 mg PO DAILY SUPPLEMENT 2 01/10/25 History tamsulosin 0.4 mg capsule 0.4 mg PO QHS SEE PCP 01/17/2206/01 History zinc acetate 25 mg (zinc) capsule 25 mg PO DAILY SEE PCP 01/17/22 1 03/12/24 History pantoprazole 40 mg tablet,delayed 40 mg PO DAILY #30 tabs 11/05/22 01/10/25 Rx release (Protonix) apixaban 2.5 mg tablet (Eliquis) 2.5 mg PO BID #180 tabs 05/18/24 1 03/12/24 Rx amiodarone 200 mg tablet 100 mg (1/2 x 200 mg) PO DAILY #45 07/13/24 01/10/25 Rx tabs ferrous sulfate 325 mg (65 mg 325 mg PO QDAY 09/06/24 01/10/25 H istory iron) tablet (FeroSul) potassium chloride 20 mEq 20 meq PO DAILY When taking PRN 01/10/25 History tablet,extended release(part/cryst) Lasix furosemide 40 mg tablet 40 mg PO QAM edema #30 tabs 01/10/25 Rx Have you fallen in the past year?: No PFSH Medical History 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 Wears glasses Cancer History of steroid therapy Easy bruising Back pain History of IBS History of GI bleed Non-smoker CPAP (continuous positive airway pressure) dependence Hoarseness History of edema Hypertension Cardiology follow-up encounter History of atrial fibrillation Ciera esophagitis Bacteremia Fatigue Weakness Elevated serum creatinine Acute right-sided low back pain Acute on chronic anemia Acute hypotension Postoperative atrial fibrillation History of left common carotid artery stent placement ( 09/27/20) Non-rheumatic mitral regurgitation Nonrheumatic mitral (valve) prolapse Non-rheumatic tricuspid valve insufficiency Thoracic aortic aneurysm without rupture Pure hypercholesterolemia History of echocardiogram ( 12/2015) Aortic aneurysm Atherosclerotic heart disease of [place] coronary artery without angina pectoris PARKER (obstructive sleep apnea) BPH (benign prostatic hyperplasia) Asthma Surgical History Hx of ascending aorta replacement ( 09/27/20) History of tricuspid valve repair ( 09/27/20) History of aortic valve replacement with bioprosthetic valve ( 09/27/20) History of cardiac catheterization ( 03/2003) H/O hemorrhoidectomy Family History Mother Hypertension Father CAD (coronary artery disease) Hypertension Grandmother CAD (coronary artery disease) Social History Smoking Status: Never smoker alcohol intake: never substance use type: does not use caffeine: Yes Type: coffee Number of servings: 5 HPI HPI Details: DAGOBERTO BAXTER, is a 84 M who presents to the office today for follow up. abd/pelvis CT 11.01.22 1. No renal or ureteral stone. 2. Large right renal cyst. 3. Sigmoid diverticulosis without diverticulitis. colonoscopy 11.14.22 Diverticulosis in the recto-sigmoid colon, in the sigmoid colon and in the descending colon. Fluid aspiration performed. The examination was otherwise normal on direct and retroflexion views. *BGI established 01.21.24 pt presents with referral for anemia. Pt states he has had a GI bleed in the past. Pt reports he stopped taking his iron supplement a few weeks ago and has only had one dark stool since. Pt states he has a bm every 3-4 days; states this is normal for him. Pt reports that he has occasional HB depending on what he eats. 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 Currently has pneumonia and worries that he has (more content not included)... Normal [facility] CNOVon 12-23-2024 CNOV Office Visit (INTMWS ) -- DAGOBERTO BAXTER JR ([id number]) 1940 M Date Time Provider Department 12/23/24 2:20 PM NICOLLE WORLEY During your visit today, we recorded the following information about you: Pulse Respiration Blood pressure Weight 80/minute 16/minute 120/80 90.7 kg Nicolle Worley APRN.LSAT INSTRUCTOR 12/23/2024 3:10 PM Signed CC: Patient presents with: Recheck: 3 month follow up HPI Dagoberto Baxter JR is a 84 year old male who presents today for follow up. Recording using [employer] software for draft documentation of the visit was discussed with the patient/authorized auto claim representative; all questions welcomed and answered. Patient/authorized auto claim representative agreed to proceed Dagoberto Baxter is an 84-year-old male with a history of atrial fibrillation, CKD, and sleep apnea, presenting for a follow-up visit. Paroxysmal Atrial Fibrillation, Multiple Valve Replacements, and Htn: - Controlled; follows up with Dr. Sawyer's office every 4 months. - Next appointment scheduled for next month. - No recent episodes of palpitations. Denies edema, headaches, dyspnea, or chest pain. - Taking amiodarone. - Metoprolol was discontinued. - Reports BP fluctuations: systolic readings as high as 150 mmHg and as low as 90 mmHg. - No associated symptoms with BP fluctuations. Chronic Kidney Disease: - Last kidney function test was 4 months ago, ordered by Basilio at Dr. Sawyer's office. - Takes furosemide daily so likes to monitor closely and avoids NSAIDs. Chronic Anemia: - Managed by Dr. Olson. - Next blood work scheduled in about a month. Sleep Apnea: - Uses BiPAP consistently at night. - Reports restful sleep with BiPAP use. - Recently switched to a large face mask to prevent air leaks. Benign Prostatic Hyperplasia: - Taking Flomax. - Denies dysuria, hematuria, fever, chills, or abdominal pain. Gastroesophageal Reflux Disease: - Taking pantoprazole. - Denies heartburn, abdominal pain, nausea, emesis, or dysphagia. 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 [phone] Solar Lentigo and Solar Lentigines 07/17/2011 Unspecified essential hypertension Essential hypertension PAST SURGICAL HISTORY Procedure Laterality Date COLONOSCOPY W/BIOPSY 11/29/2002 mdeina - hemorrhoids COLONOSCOPY FLX DX W/COLLJ SPEC WHEN PFRMD 12/14/2012 Colonoscopy COLONOSCOPY FLX DX W/COLLJ SPEC WHEN PFRMD 12/14/2012 Colonoscopy HEART VALVE REPLACEMENT 06/09/2003 Bovine Pericardial Heart Valve HEMORRHOIDECTOMY INTERNAL RUBBER BAND LIGATIONS Hemorrhoidectomy LEFT HEART CATH,PERCUTANEOUS 03/10/2003 Cardiac cath, L heart OPEN TX NASOETHMOID FX W/O EXTERNAL FIXATION ALLERGIES Atenolol, Crestor [Rosuvastatin Calcium], Feathers, Fragrances, Lipitor [Atorvastatin Calcium], Lovastatin, Pollen, Pravastatin, and Red Yeast Rice MEDICATIONS cyanocobalamin (VITAMIN B-12) 1,000 mcg tab Take 1 tablet by mouth once daily. pantoprazole DR (PROTONIX) 40 mg tablet Take 1 tablet by mouth once daily. tamsulosin (FLOMAX) 0.4 mg Take 1 capsule by mouth daily at bedtime. amiodarone (PACERONE) 200 mg tablet Take 0.5 tablets by mouth once daily. amLODIPine (NORVASC) 10 mg tablet Take 1 tablet by mouth once daily. ferrous sulfate (IRON) 325 mg (65 mg iron) tablet Take 1 tablet by mouth once daily. losartan (COZAAR) 50 mg tablet Take 1 tablet by mouth once daily. ezetimibe (ZETIA) 10 mg tablet Take 1 tablet by mouth once daily. QUERCETIN ORAL Take 1 tablet by mouth once daily. furosemide (LASIX) 40 mg tablet Take 1 tablet by mouth once daily. potassium chloride 20 mEq TbER Take 1 tablet by mouth once daily. apixaban (ELIQUIS) 5 mg tab(s) Take 2.5 mg by mouth two times a day. Zinc Acetate, Oral, 25 mg (zinc) cap Take 1 capsule by mouth once daily. magnesium oxide 200 mg magnesium chew Take 1 tablet by mouth once daily. Cholecalciferol, Vitamin D3, (VITAMIN D) 25 mcg (1,000 unit) cap Take 1 capsule by mouth twice daily. Ascorbic Acid (VITAMIN C) 1,000 mg tablet Take 1,000 mg by mouth once daily. BIPAP Settings / with BUR 12, suitable mask per pt preference (Airfit F30), chin strap, head gear, humidity, tubing, lifetime supplies. G47.33 PARKER OTC PRODUCT Take 1 tablet by mouth once daily. FAMILY HISTORY Problem (more content not included)... Normal [facility] ALT SerPl-cCncon 12-11-2024 ALT [Catalytic activity/Vol] 11 U/L Normal 10-54 [facility] Comment on above: Order Comment: Speci men Type: BLOOD SPECIMEN Ordering Facility: [facility] Address: [address] [place] [address] Performed By: #### 2 4321-2, 19605-5, 2275-06 #### [facility] CLIA [id number] [address] [place] [address] [place] AST SerPl-cCncon 12-11-2024 AST [Catalytic activity/Vol] 16 U/L Normal 14-40 [facility] Comment on above: Order Comment: Speci joanne Type: BLOOD SPECIMEN Ordering Facility: [facility] Address: [address] [place] [address] Performed By: #### 2 4321-2, 47908-7, 2275-06 #### [facility] CLIA [id number] [address] [place] [address] [place] Lipid 1996 panelon 5 Cholesterol [Mass/Vol] 206 mg/dL High <200 [facility] Comment on above: Order Comment: Speci men Type: BLOOD SPECIMEN Ordering Facility: [facility] Address: [address] [place] [address] Result Comment: <200 mg/dL, Desirable 200-239 mg/dL, Borderline high >239 mg/dL, High Performed By: #### 2 4321-2, 62221-7, 2275-06 #### [facility] CLIA [id number] [address] [place] [id number] [place] Cholesterol in HDL [Mass/Vol] 46 mg/dL Normal >39 [facility] Comment on above: Order Comment: Speci men Type: BLOOD SPECIMEN Ordering Facility: [facility] Address: [address] [place] [address] Result Comment: 40-5 9 mg/dL, Acceptable >59 mg/dL, High: Negative risk factor for coronary heart disease <40 mg/dL, Low: Positive risk factor for coronary heart disease Performed By: #### 2 4321-2, 61730-3, 2275-06 #### [facility] CLIA [id number] [address] [place] [address] [place] Cholesterol in LDL [Mass/Vol] 145 mg/dL High <100 [facility] Comment on above: Order Comment: Speci men Type: BLOOD SPECIMEN Ordering Facility: [facility] Address: [address] [place] [address] Result Comment: <100 mg/dL, Optimal 100-129 mg/dL, Near optimal/above optimal 130-159 mg/dL, Borderline high 160-189 mg/dL, High >189 mg/dL, Very high Secondary prevention optimal LDL Cholesterol levels are recommended to be <70 mg/dL LDL cholesterol is calculated using the Ahn-NIH equation. Performed By: #### 2 4321-2, 50071-4, 2275-06 #### [facility] CLIA [id number] [address] [place], [place] [id number] [place] Cholesterol in LDL/Cholesterol in HDL [Mass ratio] 3.15 {ratio} High <2.54 [facility] Comment on above: Order Comment: Speci men Type: BLOOD SPECIMEN Ordering Facility: [facility] Address: [address] [place] [address] Result Comment: Roshan copeland: 1. National Cholesterol Education Program ATP III Guideline At-A-Glance Quick Desk Reference: National Heart, Lung, and Blood Bitely. National Institutes of Health. 2001: NIH Publication No. 01-3305. 2. An International Atherosclerosis Society position paper: global recommendations for the management of dyslipidemia: executive summary, Atherosclerosis. 2014: 232(2):410-413. Performed By: #### 2 4321-2, 93188-3, 2275-4 #### [facility] CLIA [id number] [address] [place] [address] [place] Cholesterol in VLDL [Mass/Vol] 16 mg/dL Normal <30 [facility] Comment on above: Order Comment: Chandu rubio Type: BLOOD SPECIMEN Ordering Facility: [facility] Address: [address] [place] [address] Performed By: #### 2 4321-2, 77013-9, 2275- #### [facility] CLIA [id number] [address] [place] [address] [place] Cholesterol non HDL [Mass/Vol] 160 mg/dL High <130 [facility] Comment on above: Order Comment: Chandu rubio Type: BLOOD SPECIMEN Ordering Facility: [facility] Address: [address] [place] [address] Result Comment: <130 mg/dL, Optimal 130-159 mg/dL, Near optimal/above optimal 160-189 mg/dL, Borderline high 190-219 mg/dL, High >219 mg/dL, Very high Secondary prevention optimal non HDL Cholesterol levels are recommended to be <100 mg/dL Performed By: #### 2 4321-2, 34546-0, 2275-4 #### [facility] CLIA [id number] [address] [place] [address] [place] Cholesterol.total/Lacey sterol in HDL [Mass ratio] 4.48 {ratio} Normal <5.10 [facility] Comment on above: Order Comment: Chandu rubio Type: BLOOD SPECIMEN Ordering Facility: [facility] Address: [address] [place] [address] Performed By: #### 2 4321-2, 78436-8, 2275-4 #### [facility] CLIA [id number] [address] [place] [address] [place] FASTING TIME 14 hrs Normal [facility] Comment on above: Order Comment: Speci men Type: BLOOD SPECIMEN Ordering Facility: [facility] Address: [address] [place] [address] Performed By: #### 2 4321-2, 51446-7, 2275- #### [facility] CLIA [id number] [address] [place] [address] [place] Triglyceride [Mass/Vol] 85 mg/dL Normal <150 [facility] Comment on above: Order Comment: Speci men Type: BLOOD SPECIMEN Ordering Facility: [facility] Address: [address] [place] [address] Result Comment: <150 mg/dL, Normal 150-199 mg/dL, Borderline high 200-499 mg/dL, High >499 mg/dL, Very high Performed By: #### 2 4321-2, 74205-1, 2275-06 #### [facility] CLIA [id number] [address] [place] [address] [place] Magnesium SerPl-mCncon 12-11 Magnesium [Mass/Vol] 2.3 mg/dL Normal 1.7-2.3 [facility] Comment on above: Order Comment: Speci men Type: BLOOD SPECIMEN Ordering Facility: [facility] Address: [address] [place] [address] Performed By: #### 2 4321-2, 84614-3, 2275-4 #### [facility] CLIA [id number] [address] [place], [place] [id number] [place] TSH SerPl-aCncon 12-11-2024 TSH Qn 2.090 m[IU]/L Normal 0.270-4.200 [facility] Comment on above: Order Comment: Speci men Type: BLOOD SPECIMEN Ordering Facility: [facility] Address: [address] [place] [address] Performed By: #### 2 4321-2, 31990-9, 2276-4 #### [facility] CLIA [id number] [address] [place] [address] [place] [address] [place] Cardiology Visit Reporton Cardiology Visit Report [facility] [address] [place], [place] [address] OFFICE VISIT Date of Service: 11/04/24 MR#: [id number] Acct: [id number] Name: DAGOBERTO BAXTER JrLa Rep #: [id number] : 1940 Provider: YANI rucker Age/Sex: 84/M [place] [facility] Status: Signed HPI HPI History of Present Illness Details: This is a 84-year-old white male who presents today for an outpatient cardiovascular follow-up visit. He has with a history of valvular heart disease status post aortic valve replacement with a #25 Ken-Flores bioprosthetic valve in 2003 and thoracic aortic aneurysm, MR, and TR. He subsequently has been evaluated at [facility] for his cardiovascular condition, in 2020 which resulted in a CT surgery which included redo sternotomy, right axillary cannulation, deep hypothermic circulatory arrest, retrograde cerebral perfusion, replacement of the arch, frozen elephant trunk using a 37x10 [place] Tag device into the arch to cover the left subclavian origin, deployed a 2.5 x 13 mm Viabahn stent into the left carotid and reconstruction of the arch with a 30 mm Gelweave graft sutured to the stent graft and to the innominate tongue, aortic valve replacement with a 25 mm Flores valve, and tricuspid valve repair with a 28 mm MC 3 ring. He was recently evaluated in 2020 at the [facility] with a cardiac catheterization which demonstrated mild focal stenosis of the left circumflex artery only. He called our office in June 2024 expressing concerns regarding abdominal tightness and bloating sensation. This is associated with wheezing. proBNP was elevated and he was started on Lasix 40 mg p.o. daily. He denies chest, arm, jaw, or neck discomfort. He denies palpitations. He denies bilateral lower extremity edema, but does acknowledge if he does not take his diuretic he will note lower extremity edema. He denies claudication. He denies shortness of breath with activity, shortness of breath at rest, orthopnea, or PND. He denies chronic cough. He denies significant, sudden weight gain. He denies lightheadedness, dizziness, near-syncope, or syncope. He denies blood in urine, blood in stool, or epistaxis. He denies fever with chills. He denies myalgia. He denies fatigue. His exercise level has remained stable. Intake Vital Signs 09/06/24 15:22 11/04/24 15:38 Height 5 ft 8 in 5 ft 8 in Weight: 198 lb 200 lb BMI 30.1 30.4 BP 130/73 H 105/77 Blood Pressure Location Lt brachial Lt brachial Position Sitting Sitting Respiration 18 16 Pulse 47 L 83 Pulse Source Monitor NIBP Intake Visit Reasons: 2-3 M FU Pearl Restorer Required: No Accompanied by: Is patient in pain?: No Allergies Xffagbs-DLH-LsB Reductase Inhibitor (Mggowsd-Ily-Jns Reductase Inhibitor) Adverse Reaction (Severe, Verified 11/04/24 15:31) intolerence hydrochlorothiazide Adverse Reaction (Intermediate, Verified 11/04/24 15:31) unknown red yeast rice Adverse Reaction (Intermediate, Verified 11/04/24 15:31) unknown Medications ???Medication ???Instructions ???Recorded ???Confirmed ???Type cholecalciferol (vitamin D3) 25 25 mcg PO BID SUPPLEMEN 10/13/20 0 11/04/24 History mcg (1,000 unit) tablet losartan 50 mg tablet 50 mg PO DAILY #90 tabs 11/28/20 0 11/04/24 Rx cyanocobalamin (vitamin B-12) 1,000 mcg PO DAILY SEE PCP 2 11/04/24 History 1,000 mcg tablet magnesium 200 mg tablet 200 mg PO DAILY SUPPLEMENT 2 11/04/24 History tamsulosin 0.4 mg capsule 0.4 mg PO QHS SEE PCP 01/17/22 History zinc acetate 25 mg (zinc) capsule 25 mg PO DAILY SEE PCP 01/17/22 0 11/04/24 History pantoprazole 40 mg tablet,delayed 40 mg PO DAILY #30 tabs 11/05/22 11/04/24 Rx release (Protonix) apixaban 2.5 mg tablet (Eliquis) 2.5 mg PO BID #180 tabs 05/18/24 0 11/04/24 Rx amiodarone 200 mg tablet 100 mg (1/2 x 200 mg) PO DAILY #45 07/13/24 11/04/24 Rx tabs ferrous sulfate 325 mg (65 mg 325 mg PO QDAY 09/06/24 11/04/24 H istory iron) tablet (FeroSul) potassium chloride 20 mEq 20 meq PO DAILY When taking PRN 11/04/24 History tablet,extended release(part/cryst) Lasix furosemide 40 mg tablet 40 mg PO QAM edema #30 tabs 11/04/24 Rx Ejection fraction %: 50 Have you fallen in the past year?: No PFSH Medical History 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 Normal [facility] Echo Completeon 09-23-2024 Echo Complete [facility] [address] [place] [address] Echo Complete 09/23/24 0158 MR#: [id number] Acct: [id number] Name: DAGOBERTO BAXTER Jr. Rep #: [id number] : 1940 84 From: Jethro Pickard MD Attending Dr: Basilio Warren [employer] Status: REG CLI Ordering Dr: Basilio Warren [employer] Date: 09/23/24 Location: [facility] Sex: M C Admitted: Reason For Study Reason For Study: EVALUATE VALVE Procedure This was a 2D Doppler, Color Flow transthoracic echocardiogram. Exam performed in department. Left Ventricle Normal LV size. Left ventricular systolic function is normal. The left ventricular ejection fraction is 50 %. No regional wall motion abnormalities noted. Right Ventricle Normal RV size. Normal systolic function. Atria Normal left atrium. Normal right atrium. Mitral Valve There is mild mitral annular calcification. Tricuspid Valve Normal tricuspid valve. Mild (1+) tricuspid valve insufficiency. Pulmonary artery systolic pressure is 32 mmHg. Aortic Valve Peak aortic valve gradient 26.5 mmHg. Mean aortic valve gradient 14.6 mmHg. Bioprosthetic aortic valve. Pulmonic Valve The pulmonic valve is not well visualized. Great Vessels Normal aortic root. The pulmonary artery is normal size. Pericardium/Pleural No pericardial effusion. MMode/2D Measurements Calculations LVIDd: 6.1 cm IVSd: 0.72 cm LVOT diam: 2.0 cm LVIDs: 4.5 cm LVPWd: 0.96 cm LVOT area: 3.3 cm2 FS: 26.6 % Ao root diam: 3.3 cm LAV(MOD-bp): 95.8 ml LVAd ap4: 35.1 cm2 LAV(MOD-bp) Indexed: 47.3 ml/m2 LVLd ap4: 8.0 cm LAV(MOD-sp2): 99.0 ml EDV(MOD-sp4): 130.1 ml LAV(MOD-sp4): 93.5 ml EDV(sp4-el): 131.3 ml LVAs ap4: 19.6 cm2 LVLs ap4: 6.5 cm ESV(MOD-sp4): 49.7 ml ESV(sp4-el): 50.2 ml EF(MOD-sp4): 61.8 % EF(sp4-el): 61.8 % LVAd ap2: 29.1 cm2 SV(MOD-sp4): 80.3 ml SV(MOD-sp2): 52.3 ml LVLd ap2: 7.7 cm SI(MOD-sp4): 39.6 ml/m2 SI(MOD-sp2): 25.8 ml/m2 EDV(MOD-sp2): 92.7 ml EDV(sp2-el): 93.8 ml LVAs ap2: 17.6 cm2 LVLs ap2: 6.7 cm ESV(MOD-sp2): 40.4 ml ESV(sp2-el): 39.5 ml EF(MOD-sp2): 56.4 % SV(sp4-el): 81.1 ml LA dimension(2D): 4.9 cm LA A4 area: 27.0 cm2 RA A4 area: 24.9 cm2 TAPSE: 1.6 cm Time Measurements MV dec time: 0.21 sec Doppler Measurements Calculations MV E max zackary: 78.2 cm/sec Lat Peak E' Zackary: 18.0 cm/sec Med Peak E' Zackary: 8.8 cm/sec MV A max zackary: 67.4 cm/sec E/E' lat: 4.4 E/E' med: 8.9 MV E/A: 1.2 MV V2 max: 98.4 cm/sec MV P1/2t max zackary: 97.5 cm/sec Ao V2 max: 257.4 cm/sec MV max P.9 mmHg MV P1/2t: 74.0 msec Ao max P.5 mmHg MV V2 mean: 42.2 cm/sec Ao V2 mean: 176.6 cm/sec MV mean P.91 mmHg MV dec slope: 385.7 cm/sec2 Ao mean P.6 mmHg MV V2 VTI: 23.0 cm MVA(P1/2t): 3.0 cm2 Ao V2 VTI: 63.4 cm AV (velocity ratio): 0.35 MVA(VTI): 3.2 cm2 CECI(I,D): 1.1 cm2 CECI(V,D): 1.2 cm2 LV V1 max: 90.3 cm/sec SV(LVOT): 72.9 ml TV V2 max: 131.8 cm/sec LV V1 max P.3 mmHg TV max P.0 mmHg LV V1 mean P.7 mmHg TV V2 mean: 62.4 cm/sec LV V1 mean: 62.5 cm/sec TV mean P.9 mmHg LV V1 VTI: 22.2 cm PA V2 max: 132.7 cm/sec PI dec slope: 189.9 cm/sec2 TR max zackary: 265.8 cm/sec PA V2 mean: 81.0 cm/sec TR max P.3 mmHg PA V2 VTI: 28.1 cm ECHO/Echo Complete Interpretation Summary Normal LV size. Left ventricular systolic function is normal. The left ventricular ejection fraction is 50 %. Bioprosthetic aortic valve. Mean aortic valve gradient 14.6 mmHg. Ordering Physician: Basilio Warren Referring Physician: Rebecca Dinh Performed By: Marlee Medina RDCS, RVT 09/23/24 5410 Date Jethro Pickard MD CC: YANI Warren; Dr. Rebecca Dinh MD Date Dictated: 09/23/24157 Date Transcribed: 09/23/241558 Utility Person: Signed Normal [facility] Echocardiogram study reportO rdered By: Jethro Pickard on 09-23-2024 Study report [facility] [address] [place] [address] Echo Complete 09/23/24157 MR#: [id number] Acct: [id number] Name: DAGOBERTO BAXTER Jr. #:[id number] : 1940 84 From: Jethro Law Attending Dr: YANI Benitez [facility] tus: REG CLI Ordering Dr: Basilio Warren NP Date: 09/23/24 Location: [facility] Sex: M C Admitted: Reason For Study Reason For Study: EVALUATE VALVE Procedure This was a 2D Doppler, Color Flow transthoracic echocardiogram. Exam performed in department. Left Ventricle Normal LV size. Left ventricular systolic function is normal. The left ventricular ejection fraction is 50 %. No regional wall motion abnormalities noted. Right Ventricle Normal RV size. Normal systolic function. Atria Normal left atrium. Normal right atrium. Mitral Valve There is mild mitral annular calcification. Tricuspid Valve Normal tricuspid valve. Mild (1+) tricuspid valve insufficiency. Pulmonary artery systolic pressure is 32 mmHg. Aortic Valve Peak aortic valve gradient 26.5 mmHg. Mean aortic valve gradient 14.6 mmHg. Bioprosthetic aortic valve. Pulmonic Valve The pulmonic valve is not well visualized. Great Vessels Normal aortic root. The pulmonary artery is normal size. Pericardium/Pleural No pericardial effusion. MMode/2D Measurements & Calculations LVIDd: 6.1 cm IVSd: 0.72 cm LVOT diam: 2.0 cm LVIDs: 4.5 cm LVPWd: 0.96 cm LVOT area: 3.3 cm2 FS: 26.6 % Ao root diam: 3.3 cm LAV(MOD-bp): 95.8 ml LVAd ap4: 35.1 cm2 LAV(MOD-bp) Indexed: 47.3 ml/m2 LVLd ap4: 8.0 cm LAV(MOD-sp2): 99.0 ml EDV(MOD-sp4): 130.1 ml LAV(MOD-sp4): 93.5 ml EDV(sp4-el): 131.3 ml LVAs ap4: 19.6 cm2 LVLs ap4: 6.5 cm ESV(MOD-sp4): 49.7 ml ESV(sp4-el): 50.2 ml EF(MOD-sp4): 61.8 % EF(sp4-el): 61.8 % __ LVAd ap2: 29.1 cm2 SV(MOD-sp4): 80.3 ml SV(MOD-sp2): 52.3 ml LVLd ap2: 7.7 cm SI(MOD-sp4): 39.6 ml/m2 SI(MOD-sp2): 25.8 ml/m2 EDV(MOD-sp2): 92.7 ml EDV(sp2-el): 93.8 ml LVAs ap2: 17.6 cm2 LVLs ap2: 6.7 cm ESV(MOD-sp2): 40.4 ml ESV(sp2-el): 39.5 ml EF(MOD-sp2): 56.4 % __ SV(sp4-el): 81.1 ml LA dimension(2D): 4.9 cm LA A4 area: 27.0 cm2 RA A4 area: 24.9 cm2 TAPSE: 1.6 cm Time Measurements MV dec time: 0.21 sec Doppler Measurements & Calculations MV E max zackary: 78.2 cm/sec Lat Peak E' Zackary: 18.0 cm/sec Med Peak E' Zackary: 8.8 cm/sec MV A max zackary: 67.4 cm/sec E/E' lat: 4.4 E/E' med: 8.9 MV E/A: 1.2 __ MV V2 max: 98.4 cm/sec MV P1/2t max zackary: 97.5 cm/sec Ao V2 max: 257.4 cm/sec MV max P.9 mmHg MV P1/2t: 74.0 msec Ao max P.5 mmHg MV V2 mean: 42.2 cm/sec Ao V2 mean: 176.6 cm/sec MV mean P.91 mmHg MV dec slope: 385.7 cm/sec2 Ao mean P.6 mmHg MV V2 VTI: 23.0 cm MVA(P1/2t): 3.0 cm2 Ao V2 VTI: 63.4 cm AV (velocity ratio): 0.35 MVA(VTI): 3.2 cm2 CECI(I,D): 1.1 cm2 CECI(V,D): 1.2 cm2 LV V1 max: 90.3 cm/sec SV(LVOT): 72.9 ml TV V2 max: 131.8 cm/sec LV V1 max P.3 mmHg TV max P.0 mmHg LV V1 mean P.7 mmHg TV V2 mean: 62.4 cm/sec LV V1 mean: 62.5 cm/sec TV mean P.9 mmHg LV V1 VTI: 22.2 cm __ PA V2 max: 132.7 cm/sec PI dec slope: 189.9 cm/sec2 TR max zackary: 265.8 cm/sec PA V2 mean: 81.0 cm/sec TR max P.3 mmHg PA V2 VTI: 28.1 cm ECHO/Echo Complete Interpretation Summary Normal LV size. Left ventricular systolic function is normal. The left ventricular ejection fraction is 50 %. Bioprosthetic aortic valve. Mean aortic valve gradient 14.6 mmHg. Ordering Physician: Basilio Warren Referring Physician: Rebecca Dinh Performed By: Marlee Medina, RUKHSANACS, RVT 09/23/24 1559 Date _ Jethro Pickard MD CC: YANI Warren; Dr. Rebecca Dinh MD ~ Date Dictated: 09/23/24 0158 Date Transcribed: 09/23/24 4929 Utility Person: Signed [facility] Work Phone: Felipe 09-22-2024 CNOV Office Visit (INTMWS ) -- VEEDAGOBERTO JR ([id number]) 1940 M Date Time Provider Department 09/22/24 5:40 PM NICOLLE WORLEY During your visit today, we recorded the following information about you: Pulse Respiration Blood pressure Weight 68/minute 16/minute 122/78 90.7 kg Nicolle Worley APRN.CNP 09/22/2024 7:00 PM Signed Dagoberto Baxter JR is a 84 year old male here for a Medicare wellness visit. Medicare Health Risk Assessment General Health Good Exercise: Minutes/Day 20 min Exercise: Days/Week 1 day Alcohol: Daily Use Never Alcohol: Drinks/Day Patient does not drink Alcohol: 6 or more drinks Never Feel off balance denies Concerns: Teeth/Dentures Denies - follows with a dentist for concerns Concerns: Sexual function denies Troubled by feelings denies Frequency: Eating healthy diet 75-80% of the time ADLs requiring help denies Safety precautions in home/vehicle Wears his seatbelt, has grab bars in the bathroom, has handrails for steps, clutter free floors Smoke, vape, chews tobacco denies Difficulty hearing BARROW Difficulty seeing denies Current Providers Specialists: I have reviewed specialist-related care of the patient in the medical record. Optometry: Dr. Delarosa Cardiology: Dr. Pickard Hematology: Dr. Olson Dermatology: Dr. Berumen GI: Dr. Pimentel Medical/Family history review Reviewed and updated problem list, medical/surgical/family/so cial history, medications, and allergies. Opioid use review Opioid Medications (last 90 days) No data to display Anxiety/Depression screening PHQ2 is 0 PAXTON-7 Score: 4 (Minimal Anxiety) Recommendation: no further intervention at this time Cognitive screening Mini Cog Score: 4 Cognitive screening reviewed and No further action needed (score 3-5). Functional Observation Was the patient's Timed Up AND Go test unsteady or >= 12 seconds? No Advance Care Planning Patient was not able to provide a surrogate decision maker or written advance directives Measurements BP 122/78 Pulse 68 Resp 16 Wt 90.7 kg (200 lb) SpO2 97% BMI 32.28 kg/m? Vision Screening: Follows with optometry/ophthalmology Assessment/Plan Medicare annual wellness visit, subsequent (Z00.00) - Counseled on healthy diet and regular exercise - Fall avoidance information provided - Personalized prevention plan provided - Discussed need for and benefit of weight loss. BMI 32.28 kg/(m2) ASSESSMENT/PLAN: 1. Medicare annual wellness visit, subsequent - ICD9: V70.0, ICD10: Z00.00 (primary diagnosis) - Counseled on healthy diet and regular exercise - Discussed need for and benefit of weight loss. BMI 32.28 kg/(m2) - Follow up for annual exam in one year 2. BARROW (hard of hearing) - ICD9: 389.9, ICD10: H91.90 - reports concerns of hearing and needing hearing testing. - HEARING TEST/AUDIOGRAM 3. Encounter for immunization - ICD9: V03.89, ICD10: Z23 - SHINGRIX PRINTED PHARMACY INSTRUCTIONS - TDAP PRINTED PHARMACY INSTRUCTIONS Prescription instructions reviewed with patient as applicable. Potential red flag symptoms discussed with the patient. Reviewed appropriate action plan to take if red flag symptoms occur. Patient agreeable to treatment plan. DANNY Luna Joy, APRN.CNP 09/22/2024 5:57 PM Signed Screening schedule The following prevention plan is recommended: Shingrix Vaccine(2 of 3) due on 02/08/2013 DTaP,Tdap,Td Vaccine(2 - Tdap) due on 11/07/2018 Medicare Annual Wellness Visit due on 07/04/2023 Advance Directive Discussion Never done WHAT YOU CAN DO TO PREVENT FALLS Many falls can be prevented. By making some changes, you can lower your chances of falling. Four things YOU can do to prevent falls for you* and your caregiver 1. Begin a regular exercise program Exercise is one of the most important ways to lower your chances of falling. It makes you stronger and helps you feel better. Exercises that improve balance and coordination (like Jonathan Chi) are the most helpful. Lack of exercise leads to weakness and increases your chances of falling. Ask your doctor or health care provider about the best type of exercise program for you. 2. Have your health care provider review your medicines Have your doctor or pharmacist review all the medicines you take, even fmoe-xjs-skjefjw medicines. As you get older, the way medicines work in your body can change. Some medicines, or combinations of medicines, can make you sleepy or dizzy and can cause you to fall. 3. Have your vision checked Have your eyes checked by an eye doctor at least once a year. You may be wearing the wrong glasses or have a condition like glaucoma or cataracts that limits your vision. Poor vision can increase your chances of falling. 4. Make your home safer About half of all falls happen at home. To make your home safer: Remove things you can trip over (like pa (more content not included)... Normal [facility] Anion gap in Serum or Plasma Ordered By: Basilio Warren on 09-06-2024 Anion gap [Moles/Vol] 12 mmol/L 5-15 [facility] BUN/creatinine ratioOrdered By: Basilio Warren on 09-06-2024 Urea nitrogen/Creatinine [Mass ratio] 17.2 mg/mg 10-20 [facility] Bilirubin, totalOrdered By: Basilio Warren on 09-06-2024 Bilirubin [Mass/Vol] 0.45 mg/dL 0.00-1.30 [facility] Carbon dioxide, total [Moles /volume] in Central venous bloodOrdered By: Basilio Warren on 09-06-2024 CO2 [Moles/Vol] 28.2 mmol/L 21.0-32.0 [facility] Cardiology Visit Reporton Cardiology Visit Report [facility] [address] [place], [place] [address] OFFICE VISIT Date of Service: 09/06/24 MR#: [id number] Acct: [id number] Name: VEE,DAGOBERTO Rep #: [id number] : 1940 Provider: YANI rucker Age/Sex: 84/M [place] [facility] Status: Signed HPI HPI History of Present Illness Details: This is a 84-year-old white male who presents today for an outpatient cardiovascular follow-up visit. He has with a history of valvular heart disease status post aortic valve replacement with a #25 Ken-Flores bioprosthetic valve in 2003 and thoracic aortic aneurysm, MR, and TR. He subsequently has been evaluated at [facility] for his cardiovascular condition, in 2020 which resulted in a CT surgery which included redo sternotomy, right axillary cannulation, deep hypothermic circulatory arrest, retrograde cerebral perfusion, replacement of the arch, frozen elephant trunk using a 37x10 [place] Tag device into the arch to cover the left subclavian origin, deployed a 2.5 x 13 mm Viabahn stent into the left carotid and reconstruction of the arch with a 30 mm Gelweave graft sutured to the stent graft and to the innominate tongue, aortic valve replacement with a 25 mm Flores valve, and tricuspid valve repair with a 28 mm MC 3 ring. He was recently evaluated in 2020 at the [facility] with a cardiac catheterization which demonstrated mild focal stenosis of the left circumflex artery only. He called our office in June 2024 expressing concerns regarding abdominal tightness and bloating sensation. This is associated with wheezing. proBNP was elevated and he was started on Lasix 40 mg p.o. daily. He denies chest, arm, jaw, or neck discomfort. He denies palpitations. He denies bilateral lower extremity edema, but does acknowledge if he does not take his diuretic he will note lower extremity edema. He denies claudication. He denies shortness of breath with activity, shortness of breath at rest, orthopnea, or PND. He denies chronic cough. He denies significant, sudden weight gain. He denies lightheadedness, dizziness, near-syncope, or syncope. He denies blood in urine, blood in stool, or epistaxis. He denies fever with chills. He denies myalgia. He denies fatigue. His exercise level has remained stable. Intake Vital Signs 06/24/24 09:10 09/06/24 15:22 Height 5 ft 8 in 5 ft 8 in Weight: 198 lb BMI 30.1 BP 130/73 H Blood Pressure Location Lt brachial Position Sitting Respiration 18 Pulse 47 L Pulse Source Monitor Intake Visit Reasons: 2-3 M FU Pearl Restorer Required: No Accompanied by: Is patient in pain?: No Allergies Swjceui-FBV-DgO Reductase Inhibitor (Ydobtub-Ysg-Tst Reductase Inhibitor) Adverse Reaction (Severe, Verified 09/06/24 15:23) intolerence hydrochlorothiazide Adverse Reaction (Intermediate, Verified 09/06/24 15:23) unknown red yeast rice Adverse Reaction (Intermediate, Verified 09/06/24 15:23) unknown Medications ???Medication ???Instructions ???Recorded ???Confirmed ???Type cholecalciferol (vitamin D3) 25 25 mcg PO BID SUPPLEMEN 10/13/20 0 09/06/24 History mcg (1,000 unit) tablet losartan 50 mg tablet 50 mg PO DAILY #90 tabs 11/28/20 0 09/06/24 Rx cyanocobalamin (vitamin B-12) 1,000 mcg PO DAILY SEE PCP 2 09/06/24 History 1,000 mcg tablet magnesium 200 mg tablet 200 mg PO DAILY SUPPLEMENT 2 09/06/24 History tamsulosin 0.4 mg capsule 0.4 mg PO QHS SEE PCP 01/17/22 History zinc acetate 25 mg (zinc) capsule 25 mg PO DAILY SEE PCP 01/17/22 0 09/06/24 History pantoprazole 40 mg tablet,delayed 40 mg PO DAILY #30 tabs 11/05/22 09/06/24 Rx release (Protonix) amlodipine 5 mg tablet 5 mg PO QDAY #90 tabs 03/05/24 Rx apixaban 2.5 mg tablet (Eliquis) 2.5 mg PO BID #180 tabs 05/18/24 0 09/06/24 Rx furosemide 40 mg tablet 40 mg PO QAM edema #30 tabs 09/06/24 Rx amiodarone 200 mg tablet 100 mg (1/2 x 200 mg) PO DAILY #45 07/13/24 09/06/24 Rx tabs ferrous sulfate 325 mg (65 mg 325 mg PO QDAY 09/06/24 09/06/24 H istory iron) tablet (FeroSul) potassium chloride 20 mEq 20 meq PO DAILY When taking PRN 09/06/24 History tablet,extended release(part/cryst) Lasix Have you fallen in the past year?: No [facility] Medical History 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 Normal [facility] Chloride assayOrdered By: Saray Warren on 09-06-2024 Chloride [Moles/Vol] 104 mmol/L 98-108 [facility] Comprehensive Metabolic Prof ilon 09-06-2024 Albumin [Mass/Vol] 4.5 g/dL Normal 3.4-4.8 [facility] Comment on above: Performed By: #### L 506.0400, L500.4050, L501.9520 #### [facility] [address] [place], [address] Albumin/Globulin [Mass ratio] 1.5 {ratio} Normal 0.9-2.4 [facility] Comment on above: Performed By: #### L 506.0400, L500.4050, L501.9520 #### [facility] [address] [place], [address] ALK PHOS 85 U/L Normal 40-129 [facility] Comment on above: Performed By: #### L 506.0400, [id number], L501.9520 #### [facility] [address] [place], [address] ALT [Catalytic activity/Vol] 15 U/L Normal <=46 [facility] Comment on above: Performed By: #### L 506.0400, L500.4050, L501.9520 #### [facility] [address] [place], [address] AST [Catalytic activity/Vol] 21 U/L Normal <=37 [facility] Comment on above: Performed By: #### L 506.0400, [id number], L501.9520 #### [facility] [address] [place], [address] Bilirubin [Mass/Vol] 0.45 mg/dL Normal 0.00-1.30 [facility] Comment on above: Performed By: #### L 506.0400, L500.4050, L501.9520 #### [facility] [address] [place], [address] BUN/CRE 17.2 RATIO Normal 10-20 [facility] Comment on above: Performed By: #### L 506.0400, [id number], L501.9520 #### [facility] [address] [place], [address] Calcium [Mass/Vol] 9.6 mg/dL Normal 7.6-11.0 [facility] Comment on above: Performed By: #### L 506.0400, L500.4050, L501.9520 #### [facility] [address] [place], [address] Chloride [Moles/Vol] 104 mmol/L Normal 98-108 [facility] Comment on above: Performed By: #### L 506.0400, [id number], L501.9520 #### [facility] [address] [place], [address] CO2 [Moles/Vol] 28.2 mmol/L Normal 21.0-32.0 [facility] Comment on above: Performed By: #### L 506.0400, L500.4050, L501.9520 #### [facility] [address] [place], [address] Creatinine [Mass/Vol] 1.34 mg/dL High 0.70-1.20 [facility] Comment on above: Performed By: #### L 506.0400, [id number], L501.9520 #### [facility] [address] [place], [address] GAP 12 Normal 5-15 [facility] Comment on above: Performed By: #### L 506.0400, [id number], L501.9520 #### [facility] [address] [place], [address] GFR/1.73 sq M.predicted among non-blacks MDRD (S/P/Bld) [Vol rate/Area] 53 mL/min/{1.73_m2} Low >60 [facility] Comment on above: Result Comment: mL/m in/1.73m2 CKD-EPI Creatinine Equation (2020) Performed By: #### L 506.0400, L500.4050, L501.9520 #### [facility] [address] [place], [address] Globulin (S) [Mass/Vol] 3.1 g/dL Normal 2.2-4.2 [facility] Comment on above: Performed By: #### L 506.0400, L500.4050, L501.9520 #### [facility] [address] [place], [address] Glucose [Mass/Vol] 103 mg/dL High 70-99 [facility] Comment on above: Performed By: #### L 506.0400, [id number], L501.9520 #### [facility] [address] [place], [address] Potassium [Moles/Vol] 4.4 mmol/L Normal 3.3-5.1 [facility] Comment on above: Performed By: #### L 506.0400, [id number], L501.9520 #### [facility] [address] [place], [address] Sodium [Moles/Vol] 144 mmol/L Normal 133-145 [facility] Comment on above: Performed By: #### L 506.0400, [id number], L501.9520 #### [facility] [address] [place], [address] T PROT 7.7 g/dL Normal 5.9-8.4 [facility] Comment on above: Performed By: #### L 506.0400, [id number], L501.9520 #### [facility] [address] [place], [address] Urea nitrogen [Mass/Vol] 23 mg/dL High 4-19 [facility] Comment on above: Performed By: #### L 506.0400, L500.4050, L501.9520 #### [facility] [address] [place], [address] Glomerular filtration rate ( GFR) estimation/1.73 sq m using serum, plasma, or whole bOrdered By: Basilio Warren on 09-06-2024 GFR/1.73 sq M.predicted among non-blacks MDRD (S/P/Bld) [Vol rate/Area] 53 mL/min/{1.73_m2} Low >60 [facility] Comment on above: mL/min/1.73m2 CKD-EP I Creatinine Equation (2020) Laboratory - Chemistry and C hemistry - challengeOrdered By: Basilio Warren on 09-06-2024 AST [Catalytic activity/Vol] 21 U/L <38 [facility] Potassium measurement (mass/ volume)Ordered By: Basilio Warren on 09-06-2024 Potassium (Unsp spec) [Mass/Vol] 4.4 mmol/L 3.3-5.1 [facility] Serum creatinine measurement (mass/volume)Ordered By: Basilio Warren on 09-06-2024 Creatinine [Mass/Vol] 1.34 mg/dL High 0.70-1.20 [facility] Serum globulin measurementOr dered By: Basilio Warren on 09-06-2024 Globulin (S) [Mass/Vol] 3.1 g/dL 2.2-4.2 [facility] Serum glucose measurement (m ass/volume)Ordered By: Basilio Warren on 09-06-2024 Glucose [Mass/Vol] 103 mg/dL High 70-99 [facility] Serum or plasma alanine raines otransferase (ALT) measurementOrdered By: Basilio Warren on 09-06-2024 ALT [Catalytic activity/Vol] 15 U/L <47 [facility] Serum or plasma albumin reynold urement (mass/volume)Ordered By: Basilio Warren on 09-06-2024 Albumin [Mass/Vol] 4.5 g/dL 3.4-4.8 [facility] Serum or plasma albumin/glob ulin mass ratioOrdered By: Basilio Warren on 09-06-2024 Albumin/Globulin [Mass ratio] 1.5 {ratio} 0.9-2.4 [facility] Serum or plasma alkaline willie sphatase measurementOrdered By: Basilio Warren on 09-06-2024 ALP [Catalytic activity/Vol] 85 U/L 40-129 [facility] Serum or plasma calcium reynold urement (mass/volume)Ordered By: Basilio Warren on 09-06-2024 Calcium [Mass/Vol] 9.6 mg/dL 7.6-11.0 [facility] Serum or plasma urea nitroge n measurement (mass/volume)Ordered By: Basilio Warren on 09-06-2024 Urea nitrogen [Mass/Vol] 23 mg/dL High 4-19 [facility] Sodium levelOrdered By: Basilio Warren on 09-06-2024 Sodium [Moles/Vol] 144 mmol/L 133-145 [facility] T4 Free Directon 09-06-2024 T4 FREE DIRECT 1.40 ng/dL Normal 0.76-1.46 [facility] Comment on above: Performed By: #### L 506.0400, L500.4050, L501.9520 #### [facility] [address] [place], [address] T4 freeOrdered By: Basliio Warren on 09-06-2024 Free T4 [Mass/Vol] 1.40 ng/dL 0.76-1.46 [facility] TSH DL <= 0.005 mIU/L QnOrde red By: Basilio Warren on 09-06-2024 TSH Qn 2.480 uIU/mL 0.300-4.200 [facility] Thyroid Stim Hormone (TSH)on 09-06-2024 TSH 2.480 uIU/mL Normal 0.300-4.200 [facility] Comment on above: Performed By: #### L 506.0400, L500.4050, L501.9520 #### [facility] [address] [place], [address] Total proteinOrdered By: Hay Warren on 09-06-2024 Protein [Mass/Vol] 7.7 g/dL 5.9-8.4 [facility] CNPNon 08-10-2024 CNPN Telephone (HEMAWS) -- DAGOBERTO BAXTER JR ([id number]) 1940 M Date Time Provider Department 08/10/24 VICTOR MANUEL OLSON During your visit today, we recorded the following information about you: Victor Manuel Olson DO 08/10/2024 6:55 AM Signed Iron a little low from recent hematoma, but ferritin and Hgb doing well. Continue oral iron and follow up as scheduled. DO Rachel Nichols Kara, LPN 08/10/2024 8:25 AM Signed Patient notified and voices understanding. Radha Ramos LPN Allergies As of Date: 08/10/2024 Noted Allergy Reaction ATENOLOL 05/30/2003 16 - Unknown CRESTOR (ROSUVASTATIN CALCIUM) 05/18/2007 5 - Intolerance Comments: myalgia FEATHERS 05/30/2003 FRAGRANCES 05/30/2003 LIPITOR (ATORVASTATIN CALCIUM) 10/26/2004 8 - GI Upset LOVASTATIN 05/18/2007 5 - Intolerance Comments: myalgia POLLEN 05/30/2003 PRAVASTATIN 07/04/2009 5 - Intolerance Comments: myalgia RED YEAST RICE 05/18/2007 5 - Intolerance Comments: myalgia Date Reviewed: 08/03/2024 Reviewed by: Slime Plummer LPN - Fully Assessed Reason for Visit: Results [95] Prescriptions as of 08/10/2024 - ferrous sulfate (IRON) 325 mg (65 mg iron) tablet Take 1 tablet by mouth once daily. - losartan (COZAAR) 50 mg tablet Take 1 tablet by mouth once daily. - ezetimibe (ZETIA) 10 mg tablet Take 1 tablet by mouth once daily. - pantoprazole DR (PROTONIX) 40 mg tablet Take 1 tablet by mouth once daily. - cyanocobalamin (VITAMIN B-12) 1,000 mcg tab Take 1 tablet by mouth once daily. - tamsulosin (FLOMAX) 0.4 mg Take 1 capsule by mouth daily at bedtime. - QUERCETIN ORAL Take 1 tablet by mouth once daily. - metoprolol tartrate, short acting, (LOPRESSOR) 25 mg tablet Take 1 tablet by mouth two times a day. - amLODIPine (NORVASC) 10 mg tablet Take 1 tablet by mouth once daily. - furosemide (LASIX) 40 mg tablet Take 1 tablet by mouth once daily. - amiodarone (PACERONE) 200 mg tablet Take 200 mg by mouth once daily. - potassium chloride 20 mEq TbER Take 1 tablet by mouth once daily. - apixaban (ELIQUIS) 5 mg tab(s) Take 2.5 mg by mouth two times a day. - Zinc Acetate, Oral, 25 mg (zinc) cap Take 1 capsule by mouth once daily. - magnesium oxide 200 mg magnesium chew Take 1 tablet by mouth once daily. - Cholecalciferol, Vitamin D3, (VITAMIN D) 25 mcg (1,000 unit) cap Take 1 capsule by mouth twice daily. - Ascorbic Acid (VITAMIN C) 1,000 mg tablet Take 1,000 mg by mouth once daily. - BIPAP Settings 16/11 with BUR 12, suitable mask per pt preference (Airfit F30), chin strap, head gear, humidity, tubing, lifetime supplies. G47.33 PARKER - OTC PRODUCT Take 1 tablet by mouth once daily. 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/23/2006 10/10/2022 SURGICAL SCARS AND FIBROSIS OF SKIN [L90.5] 01/23/2006 10/10/2022 PERS HX SKIN MALIGNANCY: H/O BCC's [Z85.828] 01/23/2006 SOLAR LENTIGINES///DYSCHROMIA OTHER [L81.9] 01/23/2006 06/17/2013 Benign neoplasm of skin of trunk, except scrotu*01/23/2006 06/17/2013 Seborrheic Keratosis [L82.1] 01/23/2006 ACTINIC KERATOSES (Premalignant AK's) [L57.0] 09/18/2006 10/10/2022 ACTINIC DAMAGE//CHR SOLAR SKIN DAMAGE [L57.8] 09/18/2006 06/17/2013 Irritated//Inflamed Seborrheic Keratosis [L82.0]09/18/2006 10/10/2022 Skin Tag Papilloma [L91.9, L90.9] 09/18/2006 10/10/2022 XEROSIS///SEBACEOUS GLAND DIS NEC [L73.8] 03/11/2008 06/17/2013 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 10/10/2022 H/O BCC LEFT FACE MUSLIM/MALIG NEOPLASM SKIN TR*06/08/2008 03/13/2009 S/P aortic valve replacement [Z95.2] 06/19/2010 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] 01/13/2011 10/10/2022 Xerosis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 History zinc acetate 25 mg (zinc) capsule 25 mg PO DAILY SEE PCP 01/17/22 U nknown History pantoprazole 40 mg tablet,delayed 40 mg PO DAILY #30 tabs 11/05/22 Unknown Rx release (Protonix) ceftriaxone 2 gram intravenous 2 g IV Q24H 39 days 11/29/22 Unkno wn Rx solution metoprolol tartrate 50 mg tablet 25 mg PO Q12H 09/29/23 Unknown His tory amiodarone 200 mg tablet 200 mg PO DAILY #90 tabs 12/01/23 Unknown Rx amlodipine 5 mg tablet 5 mg PO QDAY #90 tabs 03/05/24 Unk nown Rx furosemide 40 mg tablet 40 mg PO QAM PRN edema #30 tabs Unknown Rx potassium chloride 20 mEq 20 meq PO .COMPLEX #30 tabs Unknown Rx tablet,extended release apixaban 2.5 mg tablet (Eliquis) 2.5 mg PO BID #180 tabs 05/18/24 U nknown Rx Allergy/AdvReac Type Severity Reaction Status Date / Time Kjsgdhl-Seq-Swi Reductase AdvReac Severe intolerence Verified 01/20/24 11:07 Inhibitor hydrochlorothiazide AdvReac Intermediate unknown Verified 01/20/24 11:07 red yeast rice AdvReac Intermediate unknown Verified 01/20/24 11:07 Family History Mother Hypertension Father CAD (coronary artery disease) Hypertension Grandmother CAD (coronary artery disease) Surgical History 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 Normal [facility] US DOPPLER COMPLETEon 2024 US DOPPLER COMPLETE * * *Final Report* * * DATE OF EXAM: Jun 18 2024 2:59PM U 1033 - US DOPPLER COMPLETE / PROCEDURE REASON: Testicular mass * * * * Physician Interpretation * * * * EXAMINATION: SCROTAL ULTRASOUND WITH DOPPLER IMAGING CLINICAL HISTORY: Testicular mass . Left-sided scrotal enlargement TECHNIQUE: Sonography of the scrotal contents with color flow and spectral Doppler imaging of the testicular vasculature was performed. Images were obtained and stored in a permanent archive. M: USC_2 COMPARISON: None RESULT: RIGHT SCROTUM: Right testis: 4.7 x 2.4 x 3 cm. Homogeneous with no calcifications or mass. Normal intratesticular arterial and venous flow with normal spectral waveforms. Epididymis: Normal Hydrocele: small present Varicocele: absent LEFT SCROTUM: Left testis: 4.2 x 2.5 x 2.8 cm. Homogeneous with no calcifications or mass. Normal intratesticular arterial and venous flow with normal spectral waveforms. Epididymis: Normal Hydrocele: Large hydrocele with low-level internal echoes Varicocele: absent - IMPRESSION: Large left-sided hydrocele. Small right-sided hydrocele. Normal arterial and venous flow within both testes. Utility Person: NANCY Transcribe Date/Time: Jun 21 2024 5:54A Dictated by : BOBBY GRADY MD This examination was interpreted and the report reviewed and electronically signed by: BOBBY GRADY MD on Jun 21 2024 5:55AM EST [id number] Normal [facility] US SCROTUM AND CONTENTSon US SCROTUM AND CONTENTS * * *Final Repor t* * * DATE OF EXAM: Jun 18 2024 2:59PM U 1063 - US SCROTUM AND CONTENTS / PROCEDURE REASON: Testicular mass * * * * Physician Interpretation * * * * EXAMINATION: SCROTAL ULTRASOUND WITH DOPPLER IMAGING CLINICAL HISTORY: Testicular mass . Left-sided scrotal enlargement TECHNIQUE: Sonography of the scrotal contents with color flow and spectral Doppler imaging of the testicular vasculature was performed. Images were obtained and stored in a permanent archive. M: US_2 COMPARISON: None RESULT: RIGHT SCROTUM: Right testis: 4.7 x 2.4 x 3 cm. Homogeneous with no calcifications or mass. Normal intratesticular arterial and venous flow with normal spectral waveforms. Epididymis: Normal Hydrocele: small present Varicocele: absent LEFT SCROTUM: Left testis: 4.2 x 2.5 x 2.8 cm. Homogeneous with no calcifications or mass. Normal intratesticular arterial and venous flow with normal spectral waveforms. Epididymis: Normal Hydrocele: Large hydrocele with low-level internal echoes Varicocele: absent - IMPRESSION: Large left-sided hydrocele. Small right-sided hydrocele. Normal arterial and venous flow within both testes. Utility Person: NANCY Transcribe Date/Time: Jun 21 2024 5:54A Dictated by : BOBBY GRADY MD This examination was interpreted and the report reviewed and electronically signed by: BOBBY GRADY MD on Jun 21 2024 5:55AM EST [id number] Normal [facility] CNOVon 06-14-2024 CNOV Office Visit (INTMWS ) -- DAGOBERTO BAXTER JR ([id number]) 1940 M Date Time Provider Department 06/14/24 2:40 PM REBECCA DINH INTMWS During your visit today, we recorded the following information about you: Pulse Respiration Blood pressure Weight 52/minute 16/minute 102/58 92.8 kg Rebecca Dinh MD 06/14/2024 3:39 PM Signed We discussed your leg swelling and use of Lasix: - You do not have a clear diagnosis of congestive heart failure based on your echocardiogram, but your mitral regurgitation may contribute to fluid retention. - Continue taking Lasix as needed when you notice swelling in your legs. Take it for 1-2 days until the swelling improves, then stop. It is okay to take it in the afternoon if that works better for you. - Monitor your weight daily. If you gain 2 pounds or more overnight, take Lasix as directed. - Consider wearing compression stockings to help reduce swelling in your legs. These can assist with fluid retention caused by gravity. We discussed your anemia and recent treatment: - Your hemoglobin levels have improved since receiving intravenous iron. Continue follow-up with Dr. Bustamante, who is managing this condition. Your next appointment with him is scheduled for the beginning of next month. We discussed your kidney function: - Your recent blood work showed stable kidney function, with a creatinine level of 1.39 and a GFR of 51. These results are good. We discussed your testicular swelling: - You reported that your left testicle is larger than the right and has been swollen for at least one year. It is sometimes tender when touched. - I performed a physical exam and confirmed that the left testicle is diffusely enlarged. - I have ordered a testicular ultrasound to evaluate the swelling further. Please complete this test as soon as possible. - I am referring you to a urologist for further evaluation and management. The urologist will review the ultrasound results and determine the next steps. We discussed your general health and follow-up: - Your anemia, kidney function, and overall lab results are improving. - Your PSA (prostate-specific antigen) was not checked during this visit. If you would like it tested, please let me know. - I will see you back in 3 months to follow up on your health and any updates from the urologist. Please complete the ultrasound and schedule your urology appointment promptly. Let us know if you have any new or worsening symptoms in the meantime. Rebecca Dinh MD 06/14/2024 9:49 PM Signed Reason for Visit Follow up HPI Dagoberto is a 84-year-old male, with a history of mitral regurgitation, anemia, and intermittent atrial fibrillation, presenting for evaluation of lower extremity edema and left testicular enlargement. Dagoberto reports intermittent lower extremity edema, for which he takes Lasix as needed. He inquires about the possibility of having CHF, noting that his advertising supervisor has not provided a clear answer. He also expresses concern about the potential renal effects of Lasix. He monitors his weight daily and takes Lasix if he gains 2 pounds from one day to the next. He prefers to take Lasix in the afternoon rather than in the morning. He denies any urinary complaints. He reports feeling better after receiving intravenous iron for anemia before a recent trip to [place]. He notes that his legs sometimes feel tired, particularly when climbing stairs or getting in and out of his truck at work. 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 He uses a CPAP machine for sleep apnea and takes Eliquis for intermittent atrial fibrillation to prevent stroke. He also reports left testicular enlargement and soreness for at least 1 year, noting that the left testicle is "a lot bigger" and "swollen" compared to the right. The soreness is present only when the testicle is squeezed; it does not bother him when standing or sitting. He inquires about the possibility of testicular cancer. He denies any family history of prostate cancer. Social History Tobacco Use Smoking status: Never Smokeless tobacco: Never Vaping Use Vaping status: Never Used Substance Use Topics Alcohol use: No Drug use: No Past medical history, appointments, medications, allergies reviewed. Pertinent Lab/Diagnostic Studies are reviewed and discussed today Current Outpatient Medications: ezetimibe (ZETIA) [address] (PROTONIX) 40 mg tablet cyanocobalamin (VITAMIN B-12) 1,000 mcg tab tamsulosin (FLOMAX) 0.4 mg QUERCETIN ORAL metoprolol tartrate, short acting, (LOPRESSOR) 25 mg tablet amLODIPine (NORVASC) 10 mg tablet losartan (COZAAR) 50 mg tablet furosemide (LASIX) 40 mg tablet amiodarone (PACERONE) 200 mg tablet potassium chloride 20 mEq TbER apixaban (ELIQUIS) 5 mg tab(s) Zinc Acetate, Oral, 25 mg (more content not included)... Normal [facility] PSA/PROSTATE SPECIFIC ANTIGE N SCREENINGon 06-14-2024 Prostate specific Ag [Mass/Vol] 2.14 ng/mL Normal <2.60 [facility] Comment on above: Order Comment: Speci men Type: BLOOD SPECIMEN Ordering Facility: [facility] Address: [address] [place] [address] Result Comment: Tota l PSA test methodology used is the Electrochemiluminescence Immunoassay by [employer]. Total PSA values by differing methodologies cannot be interchanged. Performed By: #### 2 4321-2, 29722-6, 2275- #### [facility] CLIA [id number] [address] [place] [address] [place] Basic metabolic 2000 panelon 06-08-2024 Anion gap [Moles/Vol] 11 mmol/L Normal 8-15 [facility] Comment on above: Order Comment: Speci men Type: BLOOD SPECIMEN Ordering Facility: [facility] Address: [address] [place] [address] Performed By: #### 2 4321-2, 71326-7, 6-4 #### [facility] CLIA [id number] [address] [place], [place] [id number] [place] Calcium [Mass/Vol] 9.6 mg/dL Normal 8.5-10.2 [facility] Comment on above: Order Comment: Speci men Type: BLOOD SPECIMEN Ordering Facility: [facility] Address: [address] [place] [address] Performed By: #### 2 4321-2, 05173-2, 2275-4 #### [facility] CLIA [id number] [address] [place], [place] [id number] [place] Chloride [Moles/Vol] 106 mmol/L Normal 98-107 [facility] Comment on above: Order Comment: Speci men Type: BLOOD SPECIMEN Ordering Facility: [facility] Address: [address] [place] [address] Performed By: #### 2 4321-2, 39586-8, 2275-06 #### [facility] CLIA [id number] [address] [place] [address] [place] CO2 [Moles/Vol] 28 mmol/L Normal 22-30 [facility] Comment on above: Order Comment: Speci men Type: BLOOD SPECIMEN Ordering Facility: [facility] Address: [address] [place] [address] Performed By: #### 2 4321-2, 03207-8, 4 #### [facility] CLIA [id number] [address] [place], [place] [id number] [place] Creatinine [Mass/Vol] 1.39 mg/dL High 0.73-1.22 [facility] Comment on above: Order Comment: Speci men Type: BLOOD SPECIMEN Ordering Facility: [facility] Address: [address] [place] [address] Performed By: #### 2 4321-2, 19728-6, 2275-4 #### [facility] CLIA [id number] [address] [place], [place] [id number] [place] Creatinine and Glomerular filtration rate.predicted panel (S/P/Bld) 51 mL/min/1.73m??? Low >=60 [facility] Comment on above: Order Comment: Chandu rubio Type: BLOOD SPECIMEN Ordering Facility: [facility] Address: [address] [place] [address] Result Comment: Alejandra mated Glomerular Filtration Rate (eGFR) is calculated using the 2020 CKD-EPI creatinine equation. This equation utilizes serum creatinine, sex, and age as parameters. The creatinine assay has traceable calibration to isotope dilution-mass spectrometry. Refer to KDIGO guidelines for clinical interpretation. In patients with unstable renal function, e.g. those with acute kidney injury, the eGFR may not accurately reflect actual GFR. Performed By: #### 2 4321-2, 32354-5, 2275-4 #### [facility] CLIA [id number] [address] [place] [address] [place] Glucose [Mass/Vol] 92 mg/dL Normal 74-99 [facility] Comment on above: Order Comment: Chandu rubio Type: BLOOD SPECIMEN Ordering Facility: [facility] Address: [address] [place] [address] Result Comment: The [place] [employer] (ADA) provides guidance for cutoff values for fasting glucose and random glucose. The ADA defines fasting as no caloric intake for at least 8 hours. Fasting plasma glucose results between 100 to 125 mg/dL indicate increased risk for diabetes (prediabetes). Fasting plasma glucose results greater than or equal to 126 mg/dL meet the criteria for diagnosis of diabetes. In the absence of unequivocal hyperglycemia, results should be confirmed by repeat testing. In a patient with classic symptoms of hyperglycemia or hyperglycemic crisis, random plasma glucose results greater than or equal to 200 mg/dL meet the criteria for diagnosis of diabetes. Reference: Standards of Medical Care in Diabetes 2016, [place] [employer]. Diabetes Care. 2016.39(Suppl 1). Performed By: #### 2 4321-2, 23773-0, 6-4 #### [facility] CLIA [id number] [address] [place], [place] [id number] [place] Potassium [Moles/Vol] 3.8 mmol/L Normal 3.7-5.1 [facility] Comment on above: Order Comment: Speci men Type: BLOOD SPECIMEN Ordering Facility: [facility] Address: [address] [place] [address] Performed By: #### 2 4321-2, 02248-5, 6-4 #### [facility] CLIA [id number] [address] [place] [address] [place] Sodium [Moles/Vol] 145 mmol/L High 136-144 [facility] Comment on above: Order Comment: Speci men Type: BLOOD SPECIMEN Ordering Facility: [facility] Address: [address] [place] [address] Performed By: #### 2 4321-2, 46863-0, 2275-4 #### [facility] CLIA [id number] [address] [place] [address] [place] Urea nitrogen [Mass/Vol] 26 mg/dL High 9-24 [facility] Comment on above: Order Comment: Speci men Type: BLOOD SPECIMEN Ordering Facility: [facility] Address: [address] [place] [address] Performed By: #### 2 4321-2, 66496-8, 4 #### [facility] CLIA [id number] [address] [place] [address] [place] CBC W Auto Differential pane l (Bld)on 06-08-2024 Basophils (Bld) [#/Vol] 0.05 10*3/uL Normal <0.11 [facility] Comment on above: Order Comment: Speci men Type: BLOOD SPECIMEN Ordering Facility: [facility] Address: [address] [place] [address] Performed By: #### 5 7021-8 #### [facility] CLIA [id number] [address] [place] [address] [place] Basophils/100 WBC (Bld) 0.7 % Normal [facility] Comment on above: Order Comment: Speci men Type: BLOOD SPECIMEN Ordering Facility: [facility] Address: [address] [place] [address] Performed By: #### 5 7021-8 #### [facility] CLIA [id number] [address] [place] [address] [place] Differential cell count method Nom (Bld) Auto Normal [facility] Comment on above: Order Comment: Speci men Type: BLOOD SPECIMEN Ordering Facility: [facility] Address: [address] [place] [address] Performed By: #### 5 7021-8 #### [facility] CLIA [id number] [address] [place] [address] [place] Eosinophils (Bld) [#/Vol] 0.57 10*3/uL High <0.46 [facility] Comment on above: Order Comment: Speci men Type: BLOOD SPECIMEN Ordering Facility: [facility] Address: [address] [place] [address] Performed By: #### 5 7021-8 #### [facility] CLIA [id number] [address] [place] [address] [place] Eosinophils/100 WBC (Bld) 8.2 % Normal [facility] Comment on above: Order Comment: Speci men Type: BLOOD SPECIMEN Ordering Facility: [facility] Address: [address] [place] [address] Performed By: #### 5 7021-8 #### [facility] CLIA [id number] [address] [place] [address] [place] Erythrocyte distribution width (RBC) [Ratio] 14.8 % Normal 11.5-15.0 [facility] Comment on above: Order Comment: Speci men Type: BLOOD SPECIMEN Ordering Facility: [facility] Address: [address] [place] [address] Performed By: #### 5 7021-8 #### [facility] CLIA [id number] [address] [place] [address] [place] Hematocrit (Bld) [Volume fraction] 38.3 % Low 39.0-51.0 [facility] Comment on above: Order Comment: Speci men Type: BLOOD SPECIMEN Ordering Facility: [facility] Address: [address] [place] [address] Performed By: #### 5 7021-8 #### [facility] CLIA [id number] [address] [place] [address] [place] Hemoglobin (Bld) [Mass/Vol] 12.3 g/dL Low 13.0-17.0 [facility] Comment on above: Order Comment: Speci men Type: BLOOD SPECIMEN Ordering Facility: [facility] Address: [address] [place] [address] Performed By: #### 5 7021-8 #### [facility] CLIA [id number] [address] [place] [address] [place] Immature granulocytes (Bld) [#/Vol] 10*3/uL Normal <0.10 [facility] Comment on above: Order Comment: Speci men Type: BLOOD SPECIMEN Ordering Facility: [facility] Address: [address] [place] [address] Performed By: #### 5 7021-8 #### [facility] CLIA [id number] [address] [place] [address] [place] Immature granulocytes/100 WBC (Bld) 0.3 % Normal [facility] Comment on above: Order Comment: Speci men Type: BLOOD SPECIMEN Ordering Facility: [facility] Address: [address] [place] [address] Performed By: #### 5 7021-8 #### [facility] CLIA [id number] [address] [place] [address] [place] Lymphocytes (Bld) [#/Vol] 1.25 10*3/uL Normal 1.00-4.00 [facility] Comment on above: Order Comment: Speci men Type: BLOOD SPECIMEN Ordering Facility: [facility] Address: [address] [place] [address] Performed By: #### 5 7021-8 #### [facility] CLIA [id number] [address] [place] [address] [place] Lymphocytes/100 WBC (Bld) 18.0 % Normal [facility] Comment on above: Order Comment: Speci men Type: BLOOD SPECIMEN Ordering Facility: [facility] Address: [address] [place] [address] Performed By: #### 5 7021-8 #### [facility] CLIA [id number] [address] [place] [address] [place] MCH (RBC) [Entitic mass] 30.2 pg Normal 26.0-34.0 [facility] Comment on above: Order Comment: Speci men Type: BLOOD SPECIMEN Ordering Facility: [facility] Address: [address] [place] [address] Performed By: #### 5 7021-8 #### [facility] CLIA [id number] [address] [place] [address] [place] MCHC (RBC) [Mass/Vol] 32.1 g/dL Normal 30.5-36.0 [facility] Comment on above: Order Comment: Speci men Type: BLOOD SPECIMEN Ordering Facility: [facility] Address: [address] [place] [address] Performed By: #### 5 7021-8 #### [facility] CLIA [id number] [address] [place] [address] [place] MCV (RBC) [Entitic vol] 94.1 fL Normal 80.0-100.0 [facility] Comment on above: Order Comment: Speci men Type: BLOOD SPECIMEN Ordering Facility: [facility] Address: [address] [place] [address] Performed By: #### 5 7021-8 #### [facility] CLIA [id number] [address] [place] [address] [place] Monocytes (Bld) [#/Vol] 0.43 10*3/uL Normal <0.87 [facility] Comment on above: Order Comment: Speci men Type: BLOOD SPECIMEN Ordering Facility: [facility] Address: [address] [place] [address] Performed By: #### 5 7021-8 #### [facility] CLIA [id number] [address] [place] [address] [place] Monocytes/100 WBC (Bld) 6.2 % Normal [facility] Comment on above: Order Comment: Speci men Type: BLOOD SPECIMEN Ordering Facility: [facility] Address: [address] [place] [address] Performed By: #### 5 7021-8 #### [facility] CLIA [id number] [address] [place] [address] [place] Neutrophils (Bld) [#/Vol] 4.62 10*3/uL Normal 1.45-7.50 [facility] Comment on above: Order Comment: Speci men Type: BLOOD SPECIMEN Ordering Facility: [facility] Address: [address] [place] [address] Performed By: #### 5 7021-8 #### [facility] CLIA [id number] [address] [place] [address] [place] Neutrophils/100 WBC (Bld) 66.6 % Normal [facility] Comment on above: Order Comment: Speci men Type: BLOOD SPECIMEN Ordering Facility: [facility] Address: [address] [place] [address] Performed By: #### 5 7021-8 #### [facility] CLIA [id number] [address] [place] [address] [place] Nucleated RBC (Bld) [#/Vol] 10*3/uL Normal <0.01 [facility] Comment on above: Order Comment: Speci men Type: BLOOD SPECIMEN Ordering Facility: [facility] Address: [address] [place] [address] Performed By: #### 5 7021-8 #### [facility] CLIA [id number] [address] [place] [address] [place] Nucleated RBC/100 WBC (Bld) [Ratio] 0.0 /100 WBC Normal [facility] Comment on above: Order Comment: Speci men Type: BLOOD SPECIMEN Ordering Facility: [facility] Address: [address] [place] [address] Performed By: #### 5 7021-8 #### [facility] CLIA [id number] [address] [place] [address] [place] Platelet mean volume (Bld) [Entitic vol] 10.3 fL Normal 9.0-12.7 [facility] Comment on above: Order Comment: Speci men Type: BLOOD SPECIMEN Ordering Facility: [facility] Address: [address] [place] [address] Performed By: #### 5 7021-8 #### [facility] CLIA [id number] [address] [place] [address] [place] Platelets (Bld) [#/Vol] 188 10*3/uL Normal 150-400 [facility] Comment on above: Order Comment: Speci men Type: BLOOD SPECIMEN Ordering Facility: [facility] Address: [address] [place] [address] Performed By: #### 5 7021-8 #### [facility] CLIA [id number] [address] [place] [address] [place] RBC (Bld) [#/Vol] 4.07 10*6/uL Low 4.20-6.00 [facility] Comment on above: Order Comment: Speci men Type: BLOOD SPECIMEN Ordering Facility: [facility] Address: [address] [place], [place] [address] Performed By: #### 5 7021-8 #### [facility] CLIA [id number] [address] [place] [address] [place] WBC (Bld) [#/Vol] 6.94 10*3/uL Normal 3.70-11.00 [facility] Comment on above: Order Comment: Speci men Type: BLOOD SPECIMEN Ordering Facility: [facility] Address: [address] [place] [address] Performed By: #### 5 7021-8 #### [facility] CLIA [id number] [address] [place] [address] [place] Ferritin SerPl-ncon 2024 Ferritin [Mass/Vol] 129.0 ng/mL Normal 30.3-565.7 [facility] Comment on above: Order Comment: Speci men Type: BLOOD SPECIMEN Ordering Facility: [facility] Address: [address] [place] [address] Performed By: #### 2 4321-2, 26154-4, 2276-4 #### [facility] CLIA [id number] [address] [place] [address] [place] Iron and Iron binding capaci ty panelon 06-08-2024 Iron [Mass/Vol] 63 ug/dL Normal 41-186 [facility] Comment on above: Order Comment: Speci men Type: BLOOD SPECIMEN Ordering Facility: [facility] Address: [address] [place] [address] Performed By: #### 2 4321-2, 29346-9, 2276-4 #### [facility] CLIA [id number] [address] [place] [address] [place] Iron binding capacity [Mass/Vol] 311 ug/dL Normal 232-386 [facility] Comment on above: Order Comment: Speci men Type: BLOOD SPECIMEN Ordering Facility: [facility] Address: [address] [place] [address] Performed By: #### 2 4321-2, 68517-6, 2276-4 #### [facility] CLIA [id number] [address] [place] [address] [place] Iron/TIBC [Molar ratio] 20.3 % Normal 15.0-57.0 [facility] Comment on above: Order Comment: Speci men Type: BLOOD SPECIMEN Ordering Facility: [facility] Address: [address] [place] [address] Performed By: #### 2 4321-2, 64244-9, 2276-4 #### [facility] CLIA [id number] [address] [place] [address] [place] CNPNon 05-11-2024 CNPN Telephone (HEMJOSHUA) -- DAGOBERTO BAXTER JR ([id number]) 1940 M Date Time Provider Department 05/11/24 PATRICIA SANDERS During your visit today, we recorded the following information about you: Kalpana Carcamo 05/11/2024 2:48 PM Signed Patient requesting lab results be posted on my chart from [facility], under scanned documents. Tigist Tineo LPN 05/11/2024 3:09 PM Signed Spoke with pt. Mailed to pts. Residence in [place] Tigist Tineo LPN Allergies As of Date: 05/11/2024 Noted Allergy Reaction ATENOLOL 05/30/2003 16 - Unknown CRESTOR (ROSUVASTATIN CALCIUM) 05/18/2007 5 - Intolerance Comments: myalgia FEATHERS 05/30/2003 FRAGRANCES 05/30/2003 LIPITOR (ATORVASTATIN CALCIUM) 10/26/2004 8 - GI Upset LOVASTATIN 05/18/2007 5 - Intolerance Comments: myalgia POLLEN 05/30/2003 PRAVASTATIN 07/04/2009 5 - Intolerance Comments: myalgia RED YEAST RICE 05/18/2007 5 - Intolerance Comments: myalgia Date Reviewed: 01/13/2024 Reviewed by: Etelvina Gil MA - Fully Assessed Reason for Visit: Results [95] Prescriptions as of 05/11/2024 - ezetimibe (ZETIA) 10 mg tablet Take 1 tablet by mouth once daily. - pantoprazole DR (PROTONIX) 40 mg tablet Take 1 tablet by mouth once daily. - cyanocobalamin (VITAMIN B-12) 1,000 mcg tab Take 1 tablet by mouth once daily. - tamsulosin (FLOMAX) 0.4 mg Take 1 capsule by mouth daily at bedtime. - QUERCETIN ORAL Take 1 tablet by mouth once daily. - metoprolol tartrate, short acting, (LOPRESSOR) 25 mg tablet Take 1 tablet by mouth two times a day. - amLODIPine (NORVASC) 10 mg tablet Take 1 tablet by mouth once daily. - losartan (COZAAR) 50 mg tablet Take 1 tablet by mouth once daily. - ferrous sulfate (IRON) 325 mg (65 mg iron) tablet Take 1 tablet by mouth once daily. - furosemide (LASIX) 40 mg tablet Take 1 tablet by mouth once daily. - amiodarone (PACERONE) 200 mg tablet Take 200 mg by mouth once daily. - potassium chloride 20 mEq TbER Take 1 tablet by mouth once daily. - apixaban (ELIQUIS) 5 mg tab(s) Take 2.5 mg by mouth two times a day. - Zinc Acetate, Oral, 25 mg (zinc) cap Take 1 capsule by mouth once daily. - magnesium oxide 200 mg magnesium chew Take 1 tablet by mouth once daily. - Cholecalciferol, Vitamin D3, (VITAMIN D) 25 mcg (1,000 unit) cap Take 1 capsule by mouth twice daily. - Ascorbic Acid (VITAMIN C) 1,000 mg tablet Take 1,000 mg by mouth once daily. - BIPAP Settings 23/01 with BUR 12, suitable mask per pt preference (Airfit F30), chin strap, head gear, humidity, tubing, lifetime supplies. G47.33 PARKER - OTC PRODUCT Take 1 tablet by mouth once daily. 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] 01/23/2006 10/10/2022 SURGICAL SCARS AND FIBROSIS OF SKIN [L90.5] 01/23/2006 10/10/2022 PERS HX SKIN MALIGNANCY: H/O BCC's [Z85.828] 01/23/2006 SOLAR LENTIGINES///DYSCHROMIA OTHER [L81.9] 01/23/2006 06/17/2013 Benign neoplasm of skin of trunk, except scrotu*01/23/2006 06/17/2013 Seborrheic Keratosis [L82.1] 01/23/2006 ACTINIC KERATOSES (Premalignant AK's) [L57.0] 09/18/2006 10/10/2022 ACTINIC DAMAGE//CHR SOLAR SKIN DAMAGE [L57.8] 09/18/2006 06/17/2013 Irritated//Inflamed Seborrheic Keratosis [L82.0]09/18/2006 10/10/2022 Skin Tag Papilloma [L91.9, L90.9] 09/18/2006 10/10/2022 XEROSIS///SEBACEOUS GLAND DIS NEC [L73.8] 03/11/2008 06/17/2013 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 10/10/2022 H/O BCC LEFT FACE MUSLIM/MALIG NEOPLASM SKIN TR*06/08/2008 03/13/2009 S/P aortic valve replacement [Z95.2] 06/19/2010 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] 01/13/2011 10/10/2022 Xerosis cutis [L85.3] 01/13/2011 10/10/2022 Solar Lentigo and Solar Lentigines [L81.4] 07/17/2011 10/10/2022 Castro angiomas [D18.01] 07/17/2011 10/10/2022 Medicare annual wellness visit, subsequent [Z00*02/24/2012 02/27/2015 Actinic skin damage [L57.8] 07/01/2012 Onychomycosis [B35.1] 07/01/2012 10/10/2022 Nail dystrophy [L60.3] 07/01/2012 08/31/2015 Tinea pedis [B35.3] 07/01/2012 10/10/2022 PARKER (obstructive sleep apnea) [G47.33] 01/27/2013 Medicare annual wellness visit, subsequent [Z00*02/27/2015 10/10/2022 Aneurysm of thoracic aorta (HCC) [I71.20] 07/25/2017 CKD (chronic kidney disease) stage 3, GFR 30-59*07/25/2017 Discharge planning issues [Z75.8] 09/18/2020 10/10/2022 Preop testing [Z01.818] 09/18/2020 10/01/2020 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 Normal [facility] 04-29-2024 LISN Telephone (CELESTE) -- DAGOBERTO BAXTER JR ([id number]) 1940 M Date Time Provider Department 04/29/24 PATRICIA SANDERS During your visit today, we recorded the following information about you: Mar Proctor 04/29/2024 12:28 PM Signed Patient is requesting lab orders from 01/09/24 to be faxed to [facility] [place]. Cyndie Patino 04/29/2024 4:38 PM Signed Fax as requested Cyndie Patino Allergies As of Date: 04/29/2024 Noted Allergy Reaction ATENOLOL 05/30/2003 16 - Unknown CRESTOR (ROSUVASTATIN CALCIUM) 05/18/2007 5 - Intolerance Comments: myalgia FEATHERS 05/30/2003 FRAGRANCES 05/30/2003 LIPITOR (ATORVASTATIN CALCIUM) 10/26/2004 8 - GI Upset LOVASTATIN 05/18/2007 5 - Intolerance Comments: myalgia POLLEN 05/30/2003 PRAVASTATIN 07/04/2009 5 - Intolerance Comments: myalgia RED YEAST RICE 05/18/2007 5 - Intolerance Comments: myalgia Date Reviewed: 01/13/2024 Reviewed by: Etelvina Gil MA - Fully Assessed Reason for Visit: Lab Orders [7458] Prescriptions as of 04/29/2024 - ezetimibe (ZETIA) 10 mg tablet Take 1 tablet by mouth once daily. - pantoprazole DR (PROTONIX) 40 mg tablet Take 1 tablet by mouth once daily. - cyanocobalamin (VITAMIN B-12) 1,000 mcg tab Take 1 tablet by mouth once daily. - tamsulosin (FLOMAX) 0.4 mg Take 1 capsule by mouth daily at bedtime. - QUERCETIN ORAL Take 1 tablet by mouth once daily. - metoprolol tartrate, short acting, (LOPRESSOR) 25 mg tablet Take 1 tablet by mouth two times a day. - amLODIPine (NORVASC) 10 mg tablet Take 1 tablet by mouth once daily. - losartan (COZAAR) 50 mg tablet Take 1 tablet by mouth once daily. - ferrous sulfate (IRON) 325 mg (65 mg iron) tablet Take 1 tablet by mouth once daily. - furosemide (LASIX) 40 mg tablet Take 1 tablet by mouth once daily. - amiodarone (PACERONE) 200 mg tablet Take 200 mg by mouth once daily. - potassium chloride 20 mEq TbER Take 1 tablet by mouth once daily. - apixaban (ELIQUIS) 5 mg tab(s) Take 2.5 mg by mouth two times a day. - Zinc Acetate, Oral, 25 mg (zinc) cap Take 1 capsule by mouth once daily. - magnesium oxide 200 mg magnesium chew Take 1 tablet by mouth once daily. - Cholecalciferol, Vitamin D3, (VITAMIN D) 25 mcg (1,000 unit) cap Take 1 capsule by mouth twice daily. - Ascorbic Acid (VITAMIN C) 1,000 mg tablet Take 1,000 mg by mouth once daily. - BIPAP Settings 23/01 with BUR 12, suitable mask per pt preference (Airfit F30), chin strap, head gear, humidity, tubing, lifetime supplies. G47.33 PARKER - OTC PRODUCT Take 1 tablet by mouth once daily. 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] 01/23/2006 10/10/2022 SURGICAL SCARS AND FIBROSIS OF SKIN [L90.5] 01/23/2006 10/10/2022 PERS HX SKIN MALIGNANCY: H/O BCC's [Z85.828] 01/23/2006 SOLAR LENTIGINES///DYSCHROMIA OTHER [L81.9] 01/23/2006 06/17/2013 Benign neoplasm of skin of trunk, except scrotu*01/23/2006 06/17/2013 Seborrheic Keratosis [L82.1] 01/23/2006 ACTINIC KERATOSES (Premalignant AK's) [L57.0] 09/18/2006 10/10/2022 ACTINIC DAMAGE//CHR SOLAR SKIN DAMAGE [L57.8] 09/18/2006 06/17/2013 Irritated//Inflamed Seborrheic Keratosis [L82.0]09/18/2006 10/10/2022 Skin Tag Papilloma [L91.9, L90.9] 09/18/2006 10/10/2022 XEROSIS///SEBACEOUS GLAND DIS NEC [L73.8] 03/11/2008 06/17/2013 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 10/10/2022 H/O BCC LEFT FACE MUSLIM/MALIG NEOPLASM SKIN TR*06/08/2008 03/13/2009 S/P aortic valve replacement [Z95.2] 06/19/2010 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] 01/13/2011 10/10/2022 Xerosis cutis [L85.3] 01/13/2011 10/10/2022 Solar Lentigo and Solar Lentigines [L81.4] 07/17/2011 10/10/2022 Castro angiomas [D18.01] 07/17/2011 10/10/2022 Medicare annual wellness visit, subsequent [Z00*02/24/2012 02/27/2015 Actinic skin damage [L57.8] 07/01/2012 Onychomycosis [B35.1] 07/01/2012 10/10/2022 Nail dystrophy [L60.3] 07/01/2012 08/31/2015 Tinea pedis [B35.3] 07/01/2012 10/10/2022 PARKER (obstructive sleep apnea) [G47.33] 01/27/2013 Medicare annual wellness visit, subsequent [Z00*02/27/2015 10/10/2022 Aneurysm of thoracic aorta (HCC) [I71.20] 07/25/2017 CKD (chronic kidney disease) stage 3, GFR 30-59*07/25/2017 Discharge planning issues [Z75.8] 09/18/2020 10/10/2022 Preop testing [Z01.818] 09/18/2020 10/01/2020 Aneurysm of left subclavian artery (HCC) [I72.8]09/22/2020 Research study patient [Z00.6] 09/27/2020 Atelectasis [J98.11] 09/27/2020 10/10/2022 Postoperative hypotension [I95.81] 09/27/2020 09/30/2020 Postoperative pain [G89.18] 09/27/2020 Stress hyperglycemia [R73.9] 0 (more content not included)... Normal [facility] Office Visit Reporton 2023 Office Visit Report [facility] [address] [place] [address] OFFICE VISIT Date of Service: 01/29/24 MR#: [id number] Acct: [id number] Patient: DAGOBERTO BAXTER Jr. Rep #: [id number] : 1940 Provider: Darryl Pimentel DO Age/Sex: 83/M [place] [facility] [place] Status: Signed Intake Vital Signs 01/20/24 11:05 Height 5 ft 8 in Weight: 197 lb BMI 29.9 BP 106/62 Blood Pressure Location Lt brachial Position Sitting Respiration 16 Pulse 47 L Pulse Source Monitor Intake Visit Reasons: CAP ENDO Chief Complaint: antibiotic Allergies Iesoevk-FOK-CpO Reductase Inhibitor (Ytrndaj-Zos-Nvy Reductase Inhibitor) Adverse Reaction (Severe, Verified 01/20/24 11:07) intolerence hydrochlorothiazide Adverse Reaction (Intermediate, Verified 01/20/24 11:07) unknown red yeast rice Adverse Reaction (Intermediate, Verified 01/20/24 11:07) unknown Have you fallen in the past year?: No Office Procedures Procedure Administration Route: PO Administration Location: [facility] Dispensed Units: 1 Capsule Lot Number: [id number] Expiration Date: 05/07/25 Capsule ID Number: [id number] Consent Form Signed: Yes Reason for Pill Capsule Endoscopy: Anemia Comments: Pt tolerated procedure well. All questions were answered. Pill Cam Billing-In Office: [id number] GI TRACT CAPSULE ENDOSCOPY Clinical Quality Measures Falls Risk Screening/Assistive Devices Have you fallen in the past year?: No 01/29/24 1054 Date Darryl Scott Signature: Date (if applicable) CC: Normal [facility] Gastroenterology Visit Repor ton 01-21-2024 Gastroenterology Visit Report [facility] [address] [address] OFFICE VISIT Date of Service: 01/21/24 MR#: [id number] Acct: [id number] Name: DAGOBERTO BAXTER Jr. Rep #: [id number] : 1940 Provider: Darryl Pimentel DO Age/Sex: 83/M [place] [facility] [place] Status: Signed Intake Vital Signs 01/20/24 11:05 Height 5 ft 8 in Weight: 197 lb BMI 29.9 BP 106/62 Blood Pressure Location Lt brachial Position Sitting Respiration 16 Pulse 47 L Pulse Source Monitor Intake Visit Reasons: Hospital FU Allergies Pcnalbk-XVM-OuE Reductase Inhibitor (Wgwcayu-Hbg-Zyb Reductase Inhibitor) Adverse Reaction (Severe, Verified 01/20/24 11:07) intolerence hydrochlorothiazide Adverse Reaction (Intermediate, Verified 01/20/24 11:07) unknown red yeast rice Adverse Reaction (Intermediate, Verified 01/20/24 11:07) unknown Medications ???Medication ???Instructions ???Recorded ???Confirmed ???Type cholecalciferol (vitamin D3) 25 25 mcg PO BID SUPPLEMEN 10/13/20 01/21/24 History mcg (1,000 unit) tablet acetaminophen 325 mg tablet 650 mg PO Q6H PRN pain 10/20/20 01/21/24 History losartan 50 mg tablet 50 mg PO DAILY #90 tabs 11/28/20 01/21/24 Rx cyanocobalamin (vitamin B-12) 1,000 mcg PO DAILY SEE PCP 01/17/22 01/21/24 History 1,000 mcg tablet magnesium 200 mg tablet 200 mg PO DAILY SUPPLEMENT 01/17/22 01/21/24 History tamsulosin 0.4 mg capsule 0.4 mg PO QHS SEE PCP 01/17/22 01/21/24 History zinc acetate 25 mg (zinc) capsule 25 mg PO DAILY SEE PCP 01/17/22 01/21/24 History pantoprazole 40 mg tablet,delayed 40 mg PO DAILY #30 tabs 11/05/22 01/21/24 Rx release (Protonix) ceftriaxone 2 gram intravenous 2 g IV Q24H 39 days 11/29/22 01/21/24 Rx solution apixaban 2.5 mg tablet (Eliquis) 2.5 mg PO BID #180 tabs 02/19/23 01/21/24 Rx metoprolol tartrate 50 mg tablet 25 mg PO Q12H 09/29/23 01/21/24 History amiodarone 200 mg tablet 200 mg PO DAILY #90 tabs 12/01/23 01/21/24 Rx Have you fallen in the past year?: No PFSH Medical History 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 Wears glasses Cancer History of steroid therapy Easy bruising Back pain History of IBS History of GI bleed Non-smoker CPAP (continuous positive airway pressure) dependence Hoarseness History of edema Hypertension Cardiology follow-up encounter History of atrial fibrillation Ciera esophagitis Bacteremia Fatigue Weakness Elevated serum creatinine Acute right-sided low back pain Acute on chronic anemia Acute hypotension Postoperative atrial fibrillation History of left common carotid artery stent placement ( 09/27/20) Non-rheumatic mitral regurgitation Nonrheumatic mitral (valve) prolapse Non-rheumatic tricuspid valve insufficiency Thoracic aortic aneurysm without rupture Pure hypercholesterolemia History of echocardiogram ( 12/2015) Aortic aneurysm Atherosclerotic heart disease of [place] coronary artery without angina pectoris PARKER (obstructive sleep apnea) BPH (benign prostatic hyperplasia) Asthma Surgical History Hx of ascending aorta replacement ( 09/27/20) History of tricuspid valve repair ( 09/27/20) History of aortic valve replacement with bioprosthetic valve ( 09/27/20) History of cardiac catheterization ( 03/2003) H/O hemorrhoidectomy Family History Mother Hypertension Father CAD (coronary artery disease) Hypertension Grandmother CAD (coronary artery disease) Social History Smoking Status: Never smoker alcohol intake: never substance use type: does not use caffeine: Yes Type: coffee Number of servings: 5 HPI HPI Details: DAGOBERTO BAXTER, is a 83 M who presents to the office today for initial consult. abd/pelvis CT 11.01.22 1. No renal or ureteral stone. 2. Large right renal cyst. 3. Sigmoid diverticulosis without diverticulitis. colonoscopy 11.14.22 Diverticulosis in the recto-sigmoid colon, in the sigmoid colon and in the descending colon. Fluid aspiration performed. The examination was otherwise normal on direct and retroflexion views. *BGI established 01.21.24 pt presents with referral for anemia. Pt states he has had a GI bleed in the past. Pt reports he stopped taking his iron supplement a few weeks ago and has only had one dark stool since. Pt states he has a bm every 3-4 days; states this is normal for him. Pt reports that he has occasional HB depending on what he eats. ROS Const Constitutional: Positive for fatigue; No fever(s) or weight change ENT ENT: No difficulty swallowing Gastro GI: Positive for bloating, heartburn, excessive flatus (more content not included)... Normal [facility] Cardiology Visit Reporton Cardiology Visit Report [facility] [place] [address] OFFICE VISIT Date of Service: 01/20/24 MR#: [id number] Acct: [id number] Name: VEEDAGOBERTO Rep #: [id number] : 1940 Provider: Dr. Jethro Pickard MD Age/Sex: 83/M [place] [facility] [place] Status: Signed HPI HPI History of Present Illness Details: This is a 83-year-old white male who presents today for an outpatient cardiovascular follow-up visit. He has with a history of valvular heart disease status post aortic valve replacement with a #25 Ken-Flores bioprosthetic valve in 2003 and thoracic aortic aneurysm, MR, and TR. He subsequently has been evaluated at [facility] for his cardiovascular condition, in 2020 which resulted in a CT surgery which included redo sternotomy, right axillary cannulation, deep hypothermic circulatory arrest, retrograde cerebral perfusion, replacement of the arch, frozen elephant trunk using a 37x10 [place] Tag device into the arch to cover the left subclavian origin, deployed a 2.5 x 13 mm Viabahn stent into the left carotid and reconstruction of the arch with a 30 mm Gelweave graft sutured to the stent graft and to the innominate tongue, aortic valve replacement with a 25 mm Flores valve, and tricuspid valve repair with a 28 mm MC 3 ring. He was recently evaluated in 2020 at the [facility] with a cardiac catheterization which demonstrated mild focal stenosis of the left circumflex artery only. From a cardiac standpoint, the patient is doing well. He denies any palpitations, chest pain, pressure or heaviness. He does have SOB with exertion-this is nothing new or worsening. He denies Orthopnea, and PND. He does not have bleeding issues; no blood in urine, stool or nosebleeds. He denies a decrease in energy level, myalgias, or claudication. He does not have edema, or sudden weight gain. He denies dizziness, lightheadedness, syncopal or near syncopal episodes, and headaches. Intake Vital Signs 09/08/23 15:28 01/20/24 11:05 Height 5 ft 8 in 5 ft 8 in Weight: 197 lb BMI 29.9 BP 106/62 Blood Pressure Location Lt brachial Position Sitting Respiration 16 Pulse 47 L Pulse Source Monitor Intake Visit Reasons: 1 Y FU Pearl Restorer Required: No Accompanied by: Significant Other Is patient in pain?: No Allergies Gykokdb-KML-MpL Reductase Inhibitor (Csdzumd-Kpc-Ekc Reductase Inhibitor) Adverse Reaction (Severe, Verified 01/20/24 11:07) intolerence hydrochlorothiazide Adverse Reaction (Intermediate, Verified 01/20/24 11:07) unknown red yeast rice Adverse Reaction (Intermediate, Verified 01/20/24 11:07) unknown Medications ???Medication ???Instructions ???Recorded ???Confirmed ???Type cholecalciferol (vitamin D3) 25 25 mcg PO BID SUPPLEMEN 10/13/20 01/20/24 History mcg (1,000 unit) tablet acetaminophen 325 mg tablet 650 mg PO Q6H PRN pain 10/20/20 01/20/24 History losartan 50 mg tablet 50 mg PO DAILY #90 tabs 11/28/20 01/20/24 Rx cyanocobalamin (vitamin B-12) 1,000 mcg PO DAILY SEE PCP 01/17/22 01/20/24 History 1,000 mcg tablet magnesium 200 mg tablet 200 mg PO DAILY SUPPLEMENT 01/17/22 01/20/24 History tamsulosin 0.4 mg capsule 0.4 mg PO QHS SEE PCP 01/17/22 01/20/24 History zinc acetate 25 mg (zinc) capsule 25 mg PO DAILY SEE PCP 01/17/22 01/20/24 History pantoprazole 40 mg tablet,delayed 40 mg PO DAILY #30 tabs 11/05/22 01/20/24 Rx release (Protonix) ceftriaxone 2 gram intravenous 2 g IV Q24H 39 days 11/29/22 09/08/23 Rx solution apixaban 2.5 mg tablet (Eliquis) 2.5 mg PO BID #180 tabs 02/19/23 01/20/24 Rx metoprolol tartrate 50 mg tablet 25 mg PO Q12H 09/29/23 01/20/24 History amiodarone 200 mg tablet 200 mg PO DAILY #90 tabs 12/01/23 01/20/24 Rx Have you fallen in the past year?: No PFSH Medical History 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 Wears glasses Cancer History of steroid therapy Easy bruising Back pain History of IBS History of GI bleed Non-smoker CPAP (continuous positive airway pressure) dependence Hoarseness History of edema Hypertension Cardiology follow-up encounter History of atrial fibrillation Ciera esophagitis Bacteremia Fatigue Weakness Elevated serum creatinine Acute right-sided low back pain Acute on chronic anemia Acute hypotension Postoperative atrial fibrillation History of left common carotid artery stent placement ( 09/27/20) Non-rheumatic mitral regurgitation Nonrheumatic mitral (valve) prolapse Non-rheumatic tricuspid valve insufficiency Thoracic aortic aneurysm without rupture Pure hypercholesterolemia History of echocardiogram ( 12/2015) Aortic aneurysm Atherosclerotic heart disease of [place] coronary artery without angina pectoris PARKER (obstr (more content not included)... Normal [facility] CNOVon 01-13-2024 OV Office Visit (INTMWS ) -- DAGOBERTO BAXTER JR ([id number]) 1940 M Date Time Provider Department 01/13/24 2:20 PM REBECCA DINH INTMWS During your visit today, we recorded the following information about you: Pulse Blood pressure Weight Height 50/minute 132/82 89 kg 1.727 m Rebecca Dinh MD 01/13/2024 5:03 PM Signed Reason for Visit Patient presents with: Medicare Wellness Exam Dagoberto Baxter JR is a 81 year old male who presents here today for Above Complaints. Health Maintenance SHINGRIX VACCINE(2 of 3) DTAP,TDAP,TD(2 - Tdap) ADVANCE DIRECTIVE DISCUSSION DEPRESSION ASSESSMENT INFLUENZA(1) HPI Dagoberto Baxter JR is a 80 year old male. His past medical history significant for hypertension asthma sleep apnea bicuspid aortic valve with AMS. Status post AVR with #20 5C-E bovine pericardial graft, ascending aortic aneurysm repair 06/28/2003. Presented for operative consideration September 2020. 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 He underwent replacement of arch, elephant trunk graft into the arch to cover the left artery aneurysm origin, deployed stent in the left carotid and reconstruction of the R stent graft; AVR Flores valve and tricuspid valve repair. Patient was dosing off today in the office. He notes feeling very sleepy, uses the pap machine on a daily basis but is not rested in the morning, and he is sleeping a lot during the day time, if he sits down some where he begins to sleep immediately. 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 He was anemic after his cardiac surgery , we will check those levels again. HTN: Compliant with medications. Denies any chest pain, palpitations, or edema. No SOB. Doesn't check BP at home generally. Careful with diet to avoid salt, trying to eat more fruits and vegetables, exercises regularly. 01/13/2024: reviewed his history of discitis and 6 weeks of abx last year. He has since done very well. No pain in the back,. Has been having anemia, iron def and blood loss, following up with Dr. Olson who notes that he needs an EGD. Iron levels are replete at this time. Unclear reason he is bleeding, on protonix, he has been drinking a lot of caffeine recently, Bp is well controlled No problem-specific Assessment AND Plan notes found for this encounter. 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 [phone] Solar Lentigo and Solar Lentigines 07/17/2011 Unspecified essential hypertension Essential hypertension PAST SURGICAL HISTORY Procedure Laterality Date COLONOSCOPY W/BIOPSY 11/29/02 [place] - hemorrhoids COLONOSCOPY FLX DX W/COLLJ SPEC WHEN PFRMD 12/14/12 Colonoscopy COLONOSCOPY FLX DX W/COLLJ SPEC WHEN PFRMD 12/14/12 Colonoscopy HEART VALVE REPLACEMENT 06/2003 Bovine Pericardial Heart Valve HEMORRHOIDECTOMY INTERNAL RUBBER BAND LIGATIONS Hemorrhoidectomy LEFT HEART CATH,PERCUTANEOUS 03/2003 Cardiac cath, L heart OPEN TX NASOETHMOID FX W/O EXTERNAL FIXATION FAMILY HISTORY Problem Relation Age of Onset Heart Mother valve replacement other (OHS) Mother 70 age 73 Coronary Artery Disease Father Hypertension Father other (Myocardial infarction) Father 69 Diabetes Father Heart Sister Hypertension Sister Heart Sister Stroke Sister Diabetes Sister Heart Sister Hypertension Brother Lipids Brother other (HTN) Brother Hypertension Brother Hypertension Brother Hypertension Brother Hypertension Brother Heart Brother Diabetes Brother Diabetes Maternal Grandmother other (Myocardial infarction) Maternal Grandfather 73 Social History Tobacco Use Smoking status: Never Smokeless tobacco: Never Vaping Use Vaping status: Never Used Substance Use Topics Alcohol use: No Drug use: No Past medical history, appointments, medications, allergies reviewed. Pertinent Lab/Diagnostic Studies are reviewed and discussed today Current Outpatient Medications: QUERCETIN ORAL metoprolol tartrate, short acting, (LOPRESSOR) 25 mg tablet amLODIPine (NORVASC) 10 mg tablet losartan (COZAAR) 50 mg tablet ferrous sulfate (IRON) 325 mg (65 mg iron) tablet furosemide (LASIX) 40 mg tablet tamsulosin (FLOMAX) 0.4 mg cyanocobalamin (VITAMIN B-12) 1,[address] (PROTONIX) 40 mg tablet amiodarone (PACERONE) 200 mg tablet potassium chloride 20 mEq TbER apixaban (ELIQUIS) 5 mg tab(s) Zinc Acetate, Oral, 25 mg (zinc) cap magnesium oxide 200 mg magnesium chew Cholecalciferol, Vitamin D3, (VITAMIN D) 25 mcg (1,000 (more content not included)... Normal [facility] ALT SerPl-cCncon 01-10-2024 ALT [Catalytic activity/Vol] 14 U/L Normal 10-54 [facility] Comment on above: Order Comment: Speci men Type: BLOOD SPECIMEN Ordering Facility: [facility] Address: [address] [place] [address] Performed By: #### 2 4321-2, 57348-7, 2275-06 #### [facility] CLIA [id number] [address] [place] [address] [place] AST SerPl-cCncon 01-10-2024 AST [Catalytic activity/Vol] 20 U/L Normal 14-40 [facility] Comment on above: Order Comment: Speci men Type: BLOOD SPECIMEN Ordering Facility: [facility] Address: [address] [place] [address] Performed By: #### 2 4321-2, 03659-0, 2275-06 #### [facility] CLIA [id number] [address] [place] [address] [place] Lipid 1996 panelon Cholesterol [Mass/Vol] 233 mg/dL High <200 [facility] Comment on above: Order Comment: Speci men Type: BLOOD SPECIMEN Ordering Facility: [facility] Address: [address] [place] [address] Result Comment: <200 mg/dL, Desirable 200-239 mg/dL, Borderline high >239 mg/dL, High Performed By: #### 2 4321-2, 87136-8, 2275-06 #### [facility] CLIA [id number] [address] [place] [address] [place] Cholesterol in HDL [Mass/Vol] 45 mg/dL Normal >39 [facility] Comment on above: Order Comment: Speci men Type: BLOOD SPECIMEN Ordering Facility: [facility] Address: [address] [place] [address] Result Comment: 40-5 9 mg/dL, Acceptable >59 mg/dL, High: Negative risk factor for coronary heart disease <40 mg/dL, Low: Positive risk factor for coronary heart disease Performed By: #### 2 4321-2, 19025-2, 2275-06 #### [facility] CLIA [id number] [address] [address] [place] Cholesterol in LDL [Mass/Vol] 168 mg/dL High <100 [facility] Comment on above: Order Comment: Isaiahi men Type: BLOOD SPECIMEN Ordering Facility: [facility] Address: [address] [place] [address] Result Comment: <100 mg/dL, Optimal 100-129 mg/dL, Near optimal/above optimal 130-159 mg/dL, Borderline high 160-189 mg/dL, High >189 mg/dL, Very high Secondary prevention optimal LDL Cholesterol levels are recommended to be < 70 mg/dL Performed By: #### 2 4321-2, 18942-2, 2275-06 #### [facility] CLIA [id number] [address] [place] [address] [place] Cholesterol in LDL/Cholesterol in HDL [Mass ratio] 3.73 {ratio} High <2.54 [facility] Comment on above: Order Comment: Speci men Type: BLOOD SPECIMEN Ordering Facility: [facility] Address: [address] [place] [address] Result Comment: Roshan copeland: 1. National Cholesterol Education Program ATP III Guideline At-A-Glance Quick Desk Reference: National Heart, Lung, and Blood Bitely. National Institutes of Health. 2001: NIH Publication No. 01-3305. 2. An International Atherosclerosis Society position paper: global recommendations for the management of dyslipidemia: executive summary, Atherosclerosis. 2014: 232(2):410-413. Performed By: #### 2 4321-2, 15809-1, 2275-06 #### [facility] CLIA [id number] [address] [place], [place] [id number] [place] Cholesterol in VLDL [Mass/Vol] 20 mg/dL Normal <30 [facility] Comment on above: Order Comment: Isaiahi men Type: BLOOD SPECIMEN Ordering Facility: [facility] Address: [address] [place] [address] Performed By: #### 2 4321-2, 36969-1, 2275-06 #### [facility] CLIA [id number] [address] [place], [place] [id number] [place] Cholesterol non HDL [Mass/Vol] 188 mg/dL High <130 [facility] Comment on above: Order Comment: Speci men Type: BLOOD SPECIMEN Ordering Facility: [facility] Address: [address] [place] [address] Result Comment: <130 mg/dL, Optimal 130-159 mg/dL, Near optimal/above optimal 160-189 mg/dL, Borderline high 190-219 mg/dL, High >219 mg/dL, Very high Secondary prevention optimal non HDL Cholesterol levels are recommended to be <100 mg/dL Performed By: #### 2 4321-2, 38428-2, 2275-06 #### [facility] CLIA [id number] [address] [place] [address] [place] Cholesterol.total/Lacey sterol in HDL [Mass ratio] 5.18 {ratio} High <5.10 [facility] Comment on above: Order Comment: Speci men Type: BLOOD SPECIMEN Ordering Facility: [facility] Address: [address] [place] [address] Performed By: #### 2 4321-2, 81182-9, 2275-06 #### [facility] CLIA [id number] [address] [place] [address] [place] FASTING TIME 14 hrs Normal [facility] Comment on above: Order Comment: Speci men Type: BLOOD SPECIMEN Ordering Facility: [facility] Address: [address] [place], [place] [id number] Performed By: #### 2 4321-2, 24991-7, 2275-06 #### [facility] CLIA [id number] [address] [place], [place] [id number] [place] Triglyceride [Mass/Vol] 99 mg/dL Normal <150 [facility] Comment on above: Order Comment: Speci men Type: BLOOD SPECIMEN Ordering Facility: [facility] Address: [address] [place] [address] Result Comment: <150 mg/dL, Normal 150-199 mg/dL, Borderline high 200-499 mg/dL, High >499 mg/dL, Very high Performed By: #### 2 4321-2, 38339-6, 6-4 #### [facility] CLIA [id number] [address] [place] [address] [place] Magnesium SerPl-mCncon 01-09 Magnesium [Mass/Vol] 2.4 mg/dL High 1.7-2.3 [facility] Comment on above: Order Comment: Speci men Type: BLOOD SPECIMEN Ordering Facility: [facility] Address: [address] [place] [address] Performed By: #### 2 4321-2, 07090-1, 6-4 #### [facility] CLIA [id number] [address] [place] [address] [place] TSH SerPl-aCncon 01-10-2024 TSH Qn 1.840 m[IU]/L Normal 0.270-4.200 [facility] Comment on above: Order Comment: Speci men Type: BLOOD SPECIMEN Ordering Facility: [facility] Address: [address] [place] [address] Performed By: #### 2 4321-2, 21239-0, 6-4 #### [facility] CLIA [id number] [address] [place] [address] [place] CNOVSPon 01-09-2024 CNOVSP Visit (SP) Office (H EMAWS) -- DAGOBERTO BAXTER JR ([id number]) 1940 M Date Time Provider Department 01/09/24 1:30 PM PATRICIA SANDERS During your visit today, we recorded the following information about you: Temperature Pulse Blood pressure Weight 97.2 degrees 52/minute 126/54 91.2 kg Patricia Sanders 01/09/2024 3:46 PM Signed Dagoberto Baxter 1940 01/09/2024 Hematologic problem(s): 1) Anemia. HPI: The patient is an 83-year-old male with past medical history significant for hyperlipidemia, aortic valve replacement, tricuspid valve repair, PARKER, a fib, chronic kidney disease, stage III and anemia. Admitted [facility] for back pain in October. Found to have severe anemia. Received 2 unit RBC transfusion. EGD--Three anigiodysplasias treated with heater probe. Esophageal candidiasis. Admitted again for back pain. Discitis. Completed antibiotics 01/08. Back feels better. On oral iron since second admission. Tolerating well. Mild constipation. Taking every other day. On Eliquis and ASA (started back on ASA). Gets dyspnea and legs get weak if climbs steps. 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 [place] better. Serum Cr up recently. Was told to decrease Lasix from 80 mg daily to 40 mg daily. 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 Presents for ongoing hematologic management. Interim history: Mr. Baxter presents today with his spouse. He denies any new issues. 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 Denies recent illness. No fevers, chills or NS. Appetite good. Energy level stable. No SOB, CP. Does not feel palpitations. No neuropathy. Denies any bleeding or bruising. 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 [phone] Solar Lentigo and Solar Lentigines 07/17/2011 Unspecified essential hypertension Essential hypertension PAST SURGICAL HISTORY Procedure Laterality Date COLONOSCOPY W/BIOPSY 11/29/02 [facility] - hemorrhoids COLONOSCOPY FLX DX W/COLLJ SPEC WHEN PFRMD 12/14/12 Colonoscopy COLONOSCOPY FLX DX W/COLLJ SPEC WHEN PFRMD 12/14/12 Colonoscopy HEART VALVE REPLACEMENT 06/2003 Bovine Pericardial Heart Valve HEMORRHOIDECTOMY INTERNAL RUBBER BAND LIGATIONS Hemorrhoidectomy LEFT HEART CATH,PERCUTANEOUS 03/2003 Cardiac cath, L heart OPEN TX NASOETHMOID FX W/O EXTERNAL FIXATION ALLERGIES Allergen Reactions Atenolol Unknown Crestor [Rosuvastat* Intolerance myalgia Feathers Fragrances Lipitor [Atorvastat* GI Upset Lovastatin Intolerance myalgia Pollen Pravastatin Intolerance myalgia Red Yeast Rice Intolerance myalgia Current Outpatient Medications Medication Sig QUERCETIN ORAL Take 1 tablet by mouth once daily. metoprolol tartrate, short acting, (LOPRESSOR) 25 mg tablet Take 1 tablet by mouth two times a day. amLODIPine (NORVASC) 10 mg tablet Take 1 tablet by mouth once daily. losartan (COZAAR) 50 mg tablet Take 1 tablet by mouth once daily. ferrous sulfate (IRON) 325 mg (65 mg iron) tablet Take 1 tablet by mouth once daily. (Patient taking differently: Take 325 mg by mouth three times a week.) furosemide (LASIX) 40 mg tablet Take 1 tablet by mouth once daily. tamsulosin (FLOMAX) 0.4 mg Take 1 capsule by mouth daily at bedtime. cyanocobalamin (VITAMIN B-12) 1,000 mcg tab Take 1 tablet by mouth once daily. pantoprazole DR (PROTONIX) 40 mg tablet Take 1 tablet by mouth once daily. amiodarone (PACERONE) 200 mg tablet Take 200 mg by mouth once daily. potassium chloride 20 mEq TbER Take 1 tablet by mouth once daily. apixaban (ELIQUIS) 5 mg tab(s) Take 2.5 mg by mouth two times a day. Zinc Acetate, Oral, 25 mg (zinc) cap Take 1 capsule by mouth once daily. magnesium oxide 200 mg magnesium chew Take 1 tablet by mouth once daily. Cholecalciferol, Vitamin D3, (VITAMIN D) 25 mcg (1,000 unit) cap Take 1 capsule by mouth twice daily. Ascorbic Acid (VITAMIN C) 1,000 mg tablet Take 1,000 mg by mouth once daily. BIPAP Settings 16/ with BUR 12, suitable mask per pt preference (Airfit F30), chin strap, head gear, humidity, tubing, lifetime supplies. G47.33 PARKER ezetimibe (ZETIA) 10 mg tablet Take 1 tablet by mouth once daily. OTC PRODUCT Take 1 tablet by mouth once daily. Current Facility-Administered Medications Medication Dose Route Frequency perflutren lipid microspheres 1.3 mL in NaCl (PF) 0.9% 10 mL injection (DEFINITY) INTRAVENOUS DIRECTED PRN sodium chloride 0.9 % (flush) 10 mL (BD POSIFLUSH) 10 mL INTRAVENOUS DIRECTED PRN Social History (more content not included)... Normal [facility] CBC W Auto Differential pane l (Bld)on 01-07-2024 Basophils (Bld) [#/Vol] 0.07 10*3/uL Normal <0.11 [facility] Comment on above: Order Comment: Speci men Type: BLOOD SPECIMEN Ordering Facility: [facility] Address: [address] [place] [address] Performed By: #### 2 4321-2, 46585-2, 2275-06 #### [facility] CLIA [id number] [address] [place] [address] [place] Basophils/100 WBC (Bld) 0.9 % Normal [facility] Comment on above: Order Comment: Speci men Type: BLOOD SPECIMEN Ordering Facility: [facility] Address: [address] [place] [address] Performed By: #### 2 4321-2, 32252-9, 2275-06 #### [facility] CLIA [id number] [address] [place] [address] [place] Differential cell count method Nom (Bld) Auto Normal [facility] Comment on above: Order Comment: Speci men Type: BLOOD SPECIMEN Ordering Facility: [facility] Address: [address] [place] [address] Performed By: #### 2 4321-2, 07564-8, 2275- #### [facility] CLIA [id number] [address] [place], [place] [id number] [place] Eosinophils (Bld) [#/Vol] 0.66 10*3/uL High <0.46 [facility] Comment on above: Order Comment: Speci men Type: BLOOD SPECIMEN Ordering Facility: [facility] Address: [address] [place] [address] Performed By: #### 2 4321-2, 09693-2, 4 #### [facility] CLIA [id number] [address] [place] [address] [place] Eosinophils/100 WBC (Bld) 8.0 % Normal [facility] Comment on above: Order Comment: Speci men Type: BLOOD SPECIMEN Ordering Facility: [facility] Address: [address] [place] [address] Performed By: #### 2 4321-2, 06079-6, 2275-06 #### [facility] CLIA [id number] [address] [place] [address] [place] Erythrocyte distribution width (RBC) [Ratio] 14.4 % Normal 11.5-15.0 [facility] Comment on above: Order Comment: Speci men Type: BLOOD SPECIMEN Ordering Facility: [facility] Address: [address] [place] [address] Performed By: #### 2 4321-2, 24484-2, 2275-06 #### [facility] CLIA [id number] [address] [place] [address] [place] Hematocrit (Bld) [Volume fraction] 33.1 % Low 39.0-51.0 [facility] Comment on above: Order Comment: Speci men Type: BLOOD SPECIMEN Ordering Facility: [facility] Address: [address] [place] [address] Performed By: #### 2 4321-2, 28909-3, 4 #### [facility] CLIA [id number] [address] [place] [address] [place] Hemoglobin (Bld) [Mass/Vol] 10.4 g/dL Low 13.0-17.0 [facility] Comment on above: Order Comment: Speci men Type: BLOOD SPECIMEN Ordering Facility: [facility] Address: [address] [place] [address] Performed By: #### 2 4321-2, 89147-5, 2275-4 #### [facility] CLIA [id number] [address] [place] [address] [place] Immature granulocytes (Bld) [#/Vol] 0.03 10*3/uL Normal <0.10 [facility] Comment on above: Order Comment: Speci men Type: BLOOD SPECIMEN Ordering Facility: [facility] Address: [address] [place] [address] Performed By: #### 2 4321-2, 17958-2, 2275-06 #### [facility] CLIA [id number] [address] [place] [address] [place] Immature granulocytes/100 WBC (Bld) 0.4 % Normal [facility] Comment on above: Order Comment: Speci men Type: BLOOD SPECIMEN Ordering Facility: [facility] Address: [address] [place] [address] Performed By: #### 2 4321-2, 98369-9, 2275-06 #### [facility] CLIA [id number] [address] [place] [address] [place] Lymphocytes (Bld) [#/Vol] 1.30 10*3/uL Normal 1.00-4.00 [facility] Comment on above: Order Comment: Speci men Type: BLOOD SPECIMEN Ordering Facility: [facility] Address: [address] [place] [address] Performed By: #### 2 4321-2, 10907-4, 2275-06 #### [facility] CLIA [id number] [address] [place] [address] [place] Lymphocytes/100 WBC (Bld) 15.8 % Normal [facility] Comment on above: Order Comment: Speci men Type: BLOOD SPECIMEN Ordering Facility: [facility] Address: [address] [place] [address] Performed By: #### 2 4321-2, 70166-6, 2275-06 #### [facility] CLIA [id number] [address] [place] [address] [place] MCH (RBC) [Entitic mass] 30.4 pg Normal 26.0-34.0 [facility] Comment on above: Order Comment: Speci men Type: BLOOD SPECIMEN Ordering Facility: [facility] Address: [address] [place] [address] Performed By: #### 2 4321-2, 64625-5, 2275-06 #### [facility] CLIA [id number] [address] [place] [address] [place] MCHC (RBC) [Mass/Vol] 31.4 g/dL Normal 30.5-36.0 [facility] Comment on above: Order Comment: Speci men Type: BLOOD SPECIMEN Ordering Facility: [facility] Address: [address] [place] [address] Performed By: #### 2 4321-2, 25086-7, 2275-06 #### [facility] CLIA [id number] [address] [place] [address] [place] MCV (RBC) [Entitic vol] 96.8 fL Normal 80.0-100.0 [facility] Comment on above: Order Comment: Speci men Type: BLOOD SPECIMEN Ordering Facility: [facility] Address: [address] [place] [address] Performed By: #### 2 4321-2, 13727-3, 2275-06 #### [facility] CLIA [id number] [address] [place] [address] [place] Monocytes (Bld) [#/Vol] 0.62 10*3/uL Normal <0.87 [facility] Comment on above: Order Comment: Speci men Type: BLOOD SPECIMEN Ordering Facility: [facility] Address: [address] [place] [address] Performed By: #### 2 4321-2, 01074-0, 2275-06 #### [facility] CLIA [id number] [address] [place] [address] [place] Monocytes/100 WBC (Bld) 7.5 % Normal [facility] Comment on above: Order Comment: Speci men Type: BLOOD SPECIMEN Ordering Facility: [facility] Address: [address] [place] [address] Performed By: #### 2 4321-2, 35760-7, 2275-06 #### [facility] CLIA [id number] [address] [place] [address] [place] Neutrophils (Bld) [#/Vol] 5.55 10*3/uL Normal 1.45-7.50 [facility] Comment on above: Order Comment: Speci men Type: BLOOD SPECIMEN Ordering Facility: [facility] Address: [address] [place] [address] Performed By: #### 2 4321-2, 44683-2, 2275-06 #### [facility] CLIA [id number] [address] [place] [address] [place] Neutrophils/100 WBC (Bld) 67.4 % Normal [facility] Comment on above: Order Comment: Speci men Type: BLOOD SPECIMEN Ordering Facility: [facility] Address: [address] [place], [place] [id number] Performed By: #### 2 4321-2, 65552-1, 2275-06 #### [facility] CLIA [id number] [address] [place], [place] [id number] [place] Nucleated RBC (Bld) [#/Vol] 10*3/uL Normal <0.01 [facility] Comment on above: Order Comment: Speci men Type: BLOOD SPECIMEN Ordering Facility: [facility] Address: [address] [place] [address] Performed By: #### 2 4321-2, 22757-1, 2275-4 #### [facility] CLIA [id number] [address] [place] [address] [place] Nucleated RBC/100 WBC (Bld) [Ratio] 0.0 /100 WBC Normal [facility] Comment on above: Order Comment: Speci men Type: BLOOD SPECIMEN Ordering Facility: [facility] Address: [address] [place] [address] Performed By: #### 2 4321-2, 02859-2, 2275-4 #### [facility] CLIA [id number] [address] [place] [address] [place] Platelet mean volume (Bld) [Entitic vol] 8.7 fL Low 9.0-12.7 [facility] Comment on above: Order Comment: Speci men Type: BLOOD SPECIMEN Ordering Facility: [facility] Address: [address] [place] [address] Performed By: #### 2 4321-2, 17092-3, 2275-06 #### [facility] CLIA [id number] [address] [place] [address] [place] Platelets (Bld) [#/Vol] 189 10*3/uL Normal 150-400 [facility] Comment on above: Order Comment: Speci men Type: BLOOD SPECIMEN Ordering Facility: [facility] Address: [address] [place] [address] Performed By: #### 2 4321-2, 34123-9, 2275-4 #### [facility] CLIA [id number] [address] [place] [address] [place] RBC (Bld) [#/Vol] 3.42 10*6/uL Low 4.20-6.00 [facility] Comment on above: Order Comment: Speci men Type: BLOOD SPECIMEN Ordering Facility: [facility] Address: [address] [place] [address] Performed By: #### 2 4321-2, 97296-5, 2275-4 #### [facility] CLIA [id number] [address] [place] [address] [place] WBC (Bld) [#/Vol] 8.23 10*3/uL Normal 3.70-11.00 [facility] Comment on above: Order Comment: Speci men Type: BLOOD SPECIMEN Ordering Facility: [facility] Address: [address] [place] [address] Performed By: #### 2 4321-2, 60314-6, 2275-06 #### [facility] CLIA [id number] [address] [place] [address] [place] Ferritin SerPl-ncon 2023 Ferritin [Mass/Vol] 140.0 ng/mL Normal 30.3-565.7 [facility] Comment on above: Order Comment: Speci men Type: BLOOD SPECIMEN Ordering Facility: [facility] Address: [address] [place] [address] Performed By: #### 2 4321-2, 76158-2, 2275-06 #### [facility] CLIA [id number] [address] [place] [address] [place] Iron and Iron binding capaci ty panelon 01-07-2024 Iron [Mass/Vol] 53 ug/dL Normal 41-186 [facility] Comment on above: Order Comment: Speci men Type: BLOOD SPECIMEN Ordering Facility: [facility] Address: [address] [place] [address] Performed By: #### 2 4321-2, 87648-6, 2275-06 #### [facility] CLIA [id number] [address] [place] [address] [place] Iron binding capacity [Mass/Vol] 294 ug/dL Normal 232-386 [facility] Comment on above: Order Comment: Speci men Type: BLOOD SPECIMEN Ordering Facility: [facility] Address: [address] [place] [address] Performed By: #### 2 4321-2, 92748-8, 2276-4 #### [facility] CLIA [id number] [address] [place] [address] [place] Iron/TIBC [Molar ratio] 18.0 % Normal 15.0-57.0 [facility] Comment on above: Order Comment: Speci men Type: BLOOD SPECIMEN Ordering Facility: [facility] Address: [address] [place] [address] Performed By: #### 2 4321-2, 55051-2, 6-4 #### [facility] CLIA [id number] [address] [place] [address] [place] CREATININE, BLOOD (POC)on Creatinine [Mass/Vol] 1.60 mg/dL Abnormal 0.7 - 1.4 mg/dL [facility] GFR/1.73 sq M.predicted among non-blacks MDRD (S/P/Bld) [Vol rate/Area] 43 mL/min/{1.73_m2} mL/min/1.73 m2 [facility] Interpretation and review of laboratory results Abnormal [facility] Location:Radiology [facility], [address] [place] [address] POINT OF CARE [facility] CTA Abdominal vessels and Pe lvis vessels WO and W contrast Delfin 10-09-2023 * * *Final Report* * * DATE OF EXAM: Oct 09 2023 12:50PM JQC 0467 - CTA ABD/PELV WO/W IVCON / PROCEDURE REASON: multiple diagnoses * * * * Physician Interpretation * * * * CTA Aorta chest , abdomen, and pelvis Direct Image Comparison: CTA 11/07/2022 HISTORY: 83 years old Male with h/o status post aortic valve replacement with a bioprosthesis, tricuspid valve repair with an annuloplasty band, replacement of the ascending aorta and aortic arch, 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 There is request to define thoracic and aortic anatomy TECHNIQUE: SCANNER: Multi-detector scanner PROTOCOL: 3-phase, non-gated spiral imaging with thin slice reconstruction was performed prior and following (arterial and venous phase) intravenous administration of contrast material Scan Range: thoracic inlet through the ischial tuberosities CT Dose-Length Product (DLP): 608 mGy*cm CT Dose Reduction Employed: Automated exposure control(AEC) and iterative recon CONTRAST: IV administration of 80 ml Omnipaque 350 Scan acquisition: uncomplicated Macro Version: [id number] For optimization of anatomic evaluation, advanced 3-D off-line postprocessing was performed on a dedicated workstation by the interpreting physician. STUDY LIMITATIONS: None. RESULT: LINES, TUBES and DEVICES: None. CHEST: Chest wall anatomy: evidence of median sternotomy with sternal wires in place. Surgical clips adjacent to RIGHT axillary artery likely from prior surgical access LUNGS: Calcified granulomas. Minimal thin-walled cystic change/emphysema. Mild diffuse heterogeneity lung parenchyma. MEDIASTINUM: Mild hypertrophy of bronchial artery branches incidentally noted PERICARDIUM: unremarkable CENTRAL PULMONARY ARTERY: normal dimensions, assessment is limited due to limited contrast enhancement CARDIAC CHAMBERS: assessment is limited in the single phase study LEFT VENTRICLE: normal size Right ventricle: normal size Left atrium: moderately dilated. SHANE: normal Right atrium: mildly dilated CENTRAL VENOUS and PULMONARY VENOUS RETURN: normal Coronary Sinus: normal size TRICUSPID VALVE: TVrepair with C-shaped annuloplasty band in place - - no leaflet calcification. No annular calcification PULMONIC VALVE: assessment is limited in the current study. No leaflet calcification CORONARY ANATOMY: normal origin of the coronary arteries. Calcified atherosclerotic changes of the coronary arteries, precluding precise assessment with CT. AORTIC VALVE: AVR with BIOPROSTHETIC VALVE. No leaflet calcification. There is focal calcification of annulus extending into inter valve fibrosa AORTA: Size: Ectasia/Mild Dilation. This is noted in the proximal descending aorta STJ: surgical anastomosis. Pathology: No acute aortic pathology. Intervention: FET repair with supra-coronary graft ascending aorta and arch, continuous with endovascular stent distal arch and descending aorta. - expected surgical changes surrounding grafted ascending aorta. Arch Branch Vessels: - patent ostia of innominate and left carotid artery -Patent bypass graft from LEFT common carotid to LEFT subclavian artery, mild retrograde filling of predominantly thrombosed [place] LEFT subclavian artery, which is dilated to 2.8 cm proximally - AORTIC GRAFT CONTINUES A 'FROZEN ELEPHANT TRUNK' GRAFT, WITH ANASTOMOSIS BETWEEN SURGICAL GRAFT AND ENDOVASCULAR STENT in the AORTIC ARCH ENDOVASCULAR STENT GRAFT DISTAL ARCH AND DESCENDING THORACIC AORTA (FET) - extends from aortic arch to descending aorta - stent is placed in the descending aorta - no endoleak - BEYOND THE STENT: NORMAL SIZE OF THE DESCENDING THORACIC AND ABDOMINAL AORTA Wall Changes: scattered moderate partially calcified wall changes. Most prominent in abdominal aortic segment. Visceral Branch Vessels: Patent, normal size proximal segments of the visceral branch vessels and renal arteries. Normal origin of the visceral branch vessels and renal arteries. Mild wall calcification. Iliac Arteries: Ectasia/mild dilation bilateral CIAs. Mild partially calcified wall changes. AORTIC DIMENSIONS: AORTIC ROOT: 3.3 cm measured yaqtj-[id number]-airlr grafted ASCENDING THORACIC AORTA: 3.2 cm mid AORTIC ARCH: 3.3 cm stented proximal DESCENDING THORACIC AORTA: 3.6 cm Beyond the Stent: mid DESCENDING THORACIC AORTA: 3.2 cm JUXTARENAL ABDOMINAL AORTA (level of SMA): 2.6 cm mid INFRARENAL ABDOMINAL AORTA: 2 cm Diameter Left and Right Common Iliac Arteries outer vessel diameter: 1.8 / 1.4 cm respectively ABDOMEN Gallbladder: unremarkable Liver: unremarkable Spleen: Nonspecific low-attenuation changes, few calcified foci Adrenal glands: Mildly thickened with slight nodulari (more content not included)... DIVISION OF RADIOLOGY Provider, 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 There is request to define thoracic and aortic anatomy TECHNIQUE: SCANNER: Multi-detector scanner PROTOCOL: 3-phase, non-gated spiral imaging with thin slice reconstruction was performed prior and following (arterial and venous phase) intravenous administration of contrast material Scan Range: thoracic inlet through the ischial tuberosities CT Dose-Length Product (DLP): 608 mGy*cm CT Dose Reduction Employed: Automated exposure control(AEC) and iterative recon CONTRAST: IV administration of 80 ml Omnipaque 350 Scan acquisition: uncomplicated Macro Version: [id number] For optimization of anatomic evaluation, advanced 3-D off-line postprocessing was performed on a dedicated workstation by the interpreting physician. STUDY LIMITATIONS: None. RESULT: LINES, TUBES and DEVICES: None. CHEST: Chest wall anatomy: evidence of median sternotomy with sternal wires in place. Surgical clips adjacent to RIGHT axillary artery likely from prior surgical access LUNGS: Calcified granulomas. Minimal thin-walled cystic change/emphysema. Mild diffuse heterogeneity lung parenchyma. MEDIASTINUM: Mild hypertrophy of bronchial artery branches incidentally noted PERICARDIUM: unremarkable CENTRAL PULMONARY ARTERY: normal dimensions, assessment is limited due to limited contrast enhancement CARDIAC CHAMBERS: assessment is limited in the single phase study LEFT VENTRICLE: normal size Right ventricle: normal size Left atrium: moderately dilated. SHANE: normal Right atrium: mildly dilated CENTRAL VENOUS and PULMONARY VENOUS RETURN: normal Coronary Sinus: normal size TRICUSPID VALVE: TVrepair with C-shaped annuloplasty band in place - - no leaflet calcification. No annular calcification PULMONIC VALVE: assessment is limited in the current study. No leaflet calcification CORONARY ANATOMY: normal origin of the coronary arteries. Calcified atherosclerotic changes of the coronary arteries, precluding precise assessment with CT. AORTIC VALVE: AVR with BIOPROSTHETIC VALVE. No leaflet calcification. There is focal calcification of annulus extending into inter valve fibrosa AORTA: Size: Ectasia/Mild Dilation. This is noted in the proximal descending aorta STJ: surgical anastomosis. Pathology: No acute aortic pathology. Intervention: FET repair with supra-coronary graft ascending aorta and arch, continuous with endovascular stent distal arch and descending aorta. - expected surgical changes surrounding grafted ascending aorta. Arch Branch Vessels: - patent ostia of innominate and left carotid artery -Patent bypass graft from LEFT common carotid to LEFT subclavian artery, mild retrograde filling of predominantly thrombosed [place] LEFT subclavian artery, which is dilated to 2.8 cm proximally - AORTIC GRAFT CONTINUES A 'FROZEN ELEPHANT TRUNK' GRAFT, WITH ANASTOMOSIS BETWEEN SURGICAL GRAFT AND ENDOVASCULAR STENT in the AORTIC ARCH ENDOVASCULAR STENT GRAFT DISTAL ARCH AND DESCENDING THORACIC AORTA (FET) - extends from aortic arch to descending aorta - stent is placed in the descending aorta - no endoleak - BEYOND THE STENT: NORMAL SIZE OF THE DESCENDING THORACIC AND ABDOMINAL AORTA Wall Changes: scattered moderate partially calcified wall changes. Most prominent in abdominal aortic segment. Visceral Branch Vessels: Patent, normal size proximal segments of the visceral branch vessels and renal arteries. Normal origin of the visceral branch vessels and renal arteries. Mild wall calcification. Iliac Arteries: Ectasia/mild dilation bilateral CIAs. Mild partially calcified wall changes. AORTIC DIMENSIONS: AORTIC ROOT: 3.3 cm measured [id number]-ev-qeter grafted ASCENDING THORACIC AORTA: 3.2 cm mid AORTIC ARCH: 3.3 cm stented proximal DESCENDING THORACIC AORTA: 3.6 cm Beyond the Stent: mid DESCENDING THORACIC AORTA: 3.2 cm JUXTARENAL ABDOMINAL AORTA (level of SMA): 2.6 cm mid INFRARENAL ABDOMINAL AORTA: 2 cm Diameter Left and Right Common Iliac Arteries outer vessel diameter: 1.8 / 1.4 cm respectively ABDOMEN Gallbladder: unremarkable Liver: unremarkable Spleen: Nonspecific low-attenuation (more content not included)... 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 There is request to define thoracic and aortic anatomy TECHNIQUE: SCANNER: Multi-detector scanner PROTOCOL: 3-phase, non-gated spiral imaging with thin slice reconstruction was performed prior and following (arterial and venous phase) intravenous administration of contrast material Scan Range: thoracic inlet through the ischial tuberosities CT Dose-Length Product (DLP): 608 mGy*cm CT Dose Reduction Employed: Automated exposure control(AEC) and iterative recon CONTRAST: IV administration of 80 ml Omnipaque 350 Scan acquisition: uncomplicated Macro Version: [id number] For optimization of anatomic evaluation, advanced 3-D off-line postprocessing was performed on a dedicated workstation by the interpreting physician. STUDY LIMITATIONS: None. RESULT: LINES, TUBES and DEVICES: None. CHEST: Chest wall anatomy: evidence of median sternotomy with sternal wires in place. Surgical clips adjacent to RIGHT axillary artery likely from prior surgical access LUNGS: Calcified granulomas. Minimal thin-walled cystic change/emphysema. Mild diffuse heterogeneity lung parenchyma. MEDIASTINUM: Mild hypertrophy of bronchial artery branches incidentally noted PERICARDIUM: unremarkable CENTRAL PULMONARY ARTERY: normal dimensions, assessment is limited due to limited contrast enhancement CARDIAC CHAMBERS: assessment is limited in the single phase study LEFT VENTRICLE: normal size Right ventricle: normal size Left atrium: moderately dilated. SHANE: normal Right atrium: mildly dilated CENTRAL VENOUS and PULMONARY VENOUS RETURN: normal Coronary Sinus: normal size TRICUSPID VALVE: TVrepair with C-shaped annuloplasty band in place - - no leaflet calcification. No annular calcification PULMONIC VALVE: assessment is limited in the current study. No leaflet calcification CORONARY ANATOMY: normal origin of the coronary arteries. Calcified atherosclerotic changes of the coronary arteries, precluding precise assessment with CT. AORTIC VALVE: AVR with BIOPROSTHETIC VALVE. No leaflet calcification. There is focal calcification of annulus extending into inter valve fibrosa AORTA: Size: Ectasia/Mild Dilation. This is noted in the proximal descending aorta STJ: surgical anastomosis. Pathology: No acute aortic pathology. Intervention: FET repair with supra-coronary graft ascending aorta and arch, continuous with endovascular stent distal arch and descending aorta. - expected surgical changes surrounding grafted ascending aorta. Arch Branch Vessels: - patent ostia of innominate and left carotid artery -Patent bypass graft from LEFT common carotid to LEFT subclavian artery, mild retrograde filling of predominantly thrombosed [place] LEFT subclavian artery, which is dilated to 2.8 cm proximally - AORTIC GRAFT CONTINUES A 'FROZEN ELEPHANT TRUNK' GRAFT, WITH ANASTOMOSIS BETWEEN SURGICAL GRAFT AND ENDOVASCULAR STENT in the AORTIC ARCH ENDOVASCULAR STENT GRAFT DISTAL ARCH AND DESCENDING THORACIC AORTA (FET) - extends from aortic arch to descending aorta - stent is placed in the descending aorta - no endoleak - BEYOND THE STENT: NORMAL SIZE OF THE DESCENDING THORACIC AND ABDOMINAL AORTA Wall Changes: scattered moderate partially calcified wall changes. Most prominent in abdominal aortic segment. Visceral Branch Vessels: Patent, normal size proximal segments of the visceral branch vessels and renal arteries. Normal origin of the visceral branch vessels and renal arteries. Mild wall calcification. Iliac Arteries: Ectasia/mild dilation bilateral CIAs. Mild partially calcified wall changes. AORTIC DIMENSIONS: AORTIC ROOT: 3.3 cm measured [id number] grafted ASCENDING THORACIC AORTA: 3.2 cm mid AORTIC ARCH: 3.3 cm stented proximal DESCENDING THORACIC AORTA: 3.6 cm Beyond the Stent: mid DESCENDING THORACIC AORTA: 3.2 cm JUXTARENAL ABDOMINAL AORTA (level of SMA): 2.6 cm mid INFRARENAL ABDOMINAL AORTA: 2 cm Diameter Left and Right Common Iliac Arteries outer vessel diameter: 1.8 / 1.4 cm respectively ABDOMEN Gallbladder: unremarkable Liver: unremarkable Spleen: Nonspecific low-attenuation changes, few calcified foci Adrenal glands: Mildly thickened with slight (more content not included)... DIVISION OF RADIOLOGY Provider, 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 There is request to define thoracic and aortic anatomy TECHNIQUE: SCANNER: Multi-detector scanner PROTOCOL: 3-phase, non-gated spiral imaging with thin slice reconstruction was performed prior and following (arterial and venous phase) intravenous administration of contrast material Scan Range: thoracic inlet through the ischial tuberosities CT Dose-Length Product (DLP): 608 mGy*cm CT Dose Reduction Employed: Automated exposure control(AEC) and iterative recon CONTRAST: IV administration of 80 ml Omnipaque 350 Scan acquisition: uncomplicated Macro Version: [id number] For optimization of anatomic evaluation, advanced 3-D off-line postprocessing was performed on a dedicated workstation by the interpreting physician. STUDY LIMITATIONS: None. RESULT: LINES, TUBES and DEVICES: None. CHEST: Chest wall anatomy: evidence of median sternotomy with sternal wires in place. Surgical clips adjacent to RIGHT axillary artery likely from prior surgical access LUNGS: Calcified granulomas. Minimal thin-walled cystic change/emphysema. Mild diffuse heterogeneity lung parenchyma. MEDIASTINUM: Mild hypertrophy of bronchial artery branches incidentally noted PERICARDIUM: unremarkable CENTRAL PULMONARY ARTERY: normal dimensions, assessment is limited due to limited contrast enhancement CARDIAC CHAMBERS: assessment is limited in the single phase study LEFT VENTRICLE: normal size Right ventricle: normal size Left atrium: moderately dilated. SHANE: normal Right atrium: mildly dilated CENTRAL VENOUS and PULMONARY VENOUS RETURN: normal Coronary Sinus: normal size TRICUSPID VALVE: TVrepair with C-shaped annuloplasty band in place - - no leaflet calcification. No annular calcification PULMONIC VALVE: assessment is limited in the current study. No leaflet calcification CORONARY ANATOMY: normal origin of the coronary arteries. Calcified atherosclerotic changes of the coronary arteries, precluding precise assessment with CT. AORTIC VALVE: AVR with BIOPROSTHETIC VALVE. No leaflet calcification. There is focal calcification of annulus extending into inter valve fibrosa AORTA: Size: Ectasia/Mild Dilation. This is noted in the proximal descending aorta STJ: surgical anastomosis. Pathology: No acute aortic pathology. Intervention: FET repair with supra-coronary graft ascending aorta and arch, continuous with endovascular stent distal arch and descending aorta. - expected surgical changes surrounding grafted ascending aorta. Arch Branch Vessels: - patent ostia of innominate and left carotid artery -Patent bypass graft from LEFT common carotid to LEFT subclavian artery, mild retrograde filling of predominantly thrombosed [place] LEFT subclavian artery, which is dilated to 2.8 cm proximally - AORTIC GRAFT CONTINUES A 'FROZEN ELEPHANT TRUNK' GRAFT, WITH ANASTOMOSIS BETWEEN SURGICAL GRAFT AND ENDOVASCULAR STENT in the AORTIC ARCH ENDOVASCULAR STENT GRAFT DISTAL ARCH AND DESCENDING THORACIC AORTA (FET) - extends from aortic arch to descending aorta - stent is placed in the descending aorta - no endoleak - BEYOND THE STENT: NORMAL SIZE OF THE DESCENDING THORACIC AND ABDOMINAL AORTA Wall Changes: scattered moderate partially calcified wall changes. Most prominent in abdominal aortic segment. Visceral Branch Vessels: Patent, normal size proximal segments of the visceral branch vessels and renal arteries. Normal origin of the visceral branch vessels and renal arteries. Mild wall calcification. Iliac Arteries: Ectasia/mild dilation bilateral CIAs. Mild partially calcified wall changes. AORTIC DIMENSIONS: AORTIC ROOT: 3.3 cm measured [id number] grafted ASCENDING THORACIC AORTA: 3.2 cm mid AORTIC ARCH: 3.3 cm stented proximal DESCENDING THORACIC AORTA: 3.6 cm Beyond the Stent: mid DESCENDING THORACIC AORTA: 3.2 cm JUXTARENAL ABDOMINAL AORTA (level of SMA): 2.6 cm mid INFRARENAL ABDOMINAL AORTA: 2 cm Diameter Left and Right Common Iliac Arteries outer vessel diameter: 1.8 / 1.4 cm respectively ABDOMEN Gallbladder: unremarkable Liver: unremarkable Spleen: Nonspecific low-atte (more content not included)... [facility] No Panel Informationon 10-08 IMPRESSION: 1. 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 There are no findings to suggest complication. 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 2. The abdominal aorta is normal in course and caliber with moderate atherosclerotic calcifications of the infrarenal abdominal aorta. 3. Moderate left atrial dilation, top normal RIGHT atrial size. Post post tricuspid annuloplasty band. The coronary arteries have normal origins and courses. There are scattered coronary calcifications, though this study was not optimized for coronary artery evaluation. Utility Person: PSCB Transcribe Date/Time: Oct 09 2023 1:03P Dictated by : CAMILA PRITCHETT MD This examination was interpreted and the report reviewed and electronically signed by: CAMILA PRITCHETT MD on Oct 09 2023 1:18PM [facility] DIVISION OF RADIOLOGY Radiology Study observation (narrative) [facility] No Panel InformationOrdered By: [facility] Provider on 10-09-2023 [facility] Basophil percentageOrdered B y: Morteza Montoya on 01-03-2023 Basophil percentage 107 mg/dL 74-106 [facility] Basophil percentage 139 mmol/L 136-145 [facility] Basophil percentage 3.8 mmol/L 3.5-5.1 [facility] Basophil percentage 110 mmol/L 98-107 [facility] Basophils (Bld) [#/Vol] 6.6 10*3/uL 4.4-11.0 [facility] Blood erythrocytes count (nu mber/volume)Ordered By: Morteza Montoya on 01-03-2023 RBC (Bld) [#/Vol] 2.81 10*6/uL 4.6-6.2 [facility] Blood hemoglobin measurement (mass/volume)Ordered By: Morteza Montoya on 01-03-2023 Hemoglobin (Bld) [Mass/Vol] 7.7 g/dL 13.0-16.5 [facility] Blood platelet mean volumeOr dered By: Morteza Montoya on 01-03-2023 Platelet mean volume (Bld) [Entitic vol] 9.0 fL 6.2-12.0 [facility] Determination of erythrocyte mean corpuscular volume (MCV)Ordered By: Morteza Montoya on 01-03-2023 MCV (RBC) [Entitic vol] 93.2 fL 80-94 [facility] Erythrocyte sedimentation ra teOrdered By: Morteza Montoya on 01-03-2023 ESR (Bld) [Velocity] 20 mm/h 0-20 [facility] Hematocrit Auto (Bld) [Volum e fraction]Ordered By: Morteza Montoya on 01-03-2023 Hematocrit (Bld) [Volume fraction] 26.2 % 40-54 [facility] MCHC Auto (RBC) [Mass/Vol]Or dered By: Morteza Montoya on 01-03-2023 MCHC (RBC) [Mass/Vol] 29.4 g/dL 32-36 [facility] No Panel InformationOrdered By: Morteza Montoya on 01-03-2023 27.4 pg 27.0-32.0 [facility] 16.3 % 11.6-14.6 [facility] 55.9 fl 35.1-43.9 [facility] 64 mL/min >60 [facility] 78 mL/min >60 [facility] 49.14 ml/min [facility] 17.2 RATIO - [facility] 28.0 mmol/L 21.0-32.0 [facility] Platelets bldOrdered By: Ramos Montoya on 01-03-2023 Platelets (Bld) [#/Vol] 181 10*3/uL 150-450 [facility] Serum or plasma calcium reynold urement (mass/volume)Ordered By: Morteza Montoya on 01-03-2023 Calcium [Mass/Vol] 8.6 mg/dL 8.5-10.1 [facility] Serum or plasma creatinine m easurement (mass/volume)Ordered By: Morteza Montoya on 01-03-2023 Creatinine [Mass/Vol] 1.16 mg/dL 0.70-1.30 [facility] Serum or plasma urea nitroge n measurement (mass/volume)Ordered By: Morteza Montoya on 01-03-2023 Urea nitrogen [Mass/Vol] 20 mg/dL 7-18 [facility] Thin prep Papanicolaou smear with manual screeningOrdered By: Morteza Montoya on 01-03-2023 Thin prep Papanicolaou smear with manual screening 1 5-15 [facility] Blood hemoglobin measurement (mass/volume)Ordered By: Darryl Pimentel on 12-27-2022 Hemoglobin (Bld) [Mass/Vol] 7.7 g/dL 13.0-16.5 [facility] Hematocrit Auto (Bld) [Volum e fraction]Ordered By: Darryl Pimentel on 12-27-2022 Hematocrit (Bld) [Volume fraction] 27.0 % 40-54 [facility] Basophil percentageOrdered B y: Morteza Montoya on 12-20-2022 Basophil percentage 97 mg/dL 74-106 [facility] Basophil percentage 144 mmol/L 136-145 [facility] Basophil percentage 3.8 mmol/L 3.5-5.1 [facility] Basophil percentage 108 mmol/L 98-107 [facility] Basophils (Bld) [#/Vol] 7.0 10*3/uL 4.4-11.0 [facility] Blood erythrocytes count (nu mber/volume)Ordered By: Morteza Montoya on 12-20-2022 RBC (Bld) [#/Vol] 2.91 10*6/uL 4.6-6.2 [facility] Blood hemoglobin measurement (mass/volume)Ordered By: Morteza Montoya on 12-20-2022 Hemoglobin (Bld) [Mass/Vol] 7.9 g/dL 13.0-16.5 [facility] Blood platelet mean volumeOr dered By: Morteza Montoya on 12-20-2022 Platelet mean volume (Bld) [Entitic vol] 8.9 fL 6.2-12.0 [facility] Determination of erythrocyte mean corpuscular volume (MCV)Ordered By: Morteza Montoya on 12-20-2022 MCV (RBC) [Entitic vol] 93.5 fL 80-94 [facility] Erythrocyte sedimentation ra teOrdered By: Morteza Montoya on 12-20-2022 ESR (Bld) [Velocity] 22 mm/h 0-20 [facility] Hematocrit Auto (Bld) [Volum e fraction]Ordered By: Morteza Montoya on 12-20-2022 Hematocrit (Bld) [Volume fraction] 27.2 % 40-54 [facility] MCHC Auto (RBC) [Mass/Vol]Or dered By: Morteza Montoya on 12-20-2022 MCHC (RBC) [Mass/Vol] 29.0 g/dL 32-36 [facility] No Panel InformationOrdered By: Morteza Montoya on 12-20-2022 27.1 pg 27.0-32.0 [facility] 17.8 % 11.6-14.6 [facility] 61.1 fl 35.1-43.9 [facility] 67 mL/min >60 [facility] 81 mL/min >60 [facility] 50.89 ml/min [facility] 17.0 RATIO 10-20 [facility] 29.0 mmol/L 21.0-32.0 [facility] Platelets bldOrdered By: Ramos Montoya on 12-20-2022 Platelets (Bld) [#/Vol] 224 10*3/uL 150-450 [facility] Serum or plasma calcium reynold urement (mass/volume)Ordered By: Morteza Montoya on 12-20-2022 Calcium [Mass/Vol] 8.6 mg/dL 8.5-10.1 [facility] Serum or plasma creatinine m easurement (mass/volume)Ordered By: Morteza Montoya on 12-20-2022 Creatinine [Mass/Vol] 1.12 mg/dL 0.70-1.30 [facility] Serum or plasma urea nitroge n measurement (mass/volume)Ordered By: Morteza Montoya on 12-20-2022 Urea nitrogen [Mass/Vol] 19 mg/dL 7-18 [facility] Thin prep Papanicolaou smear with manual screeningOrdered By: Morteza Montoya on 12-20-2022 Thin prep Papanicolaou smear with manual screening 7 5-15 [facility] Blood hemoglobin measurement (mass/volume)Ordered By: Darryl Pimentel on 12-16-2022 Hemoglobin (Bld) [Mass/Vol] 8.1 g/dL 13.0-16.5 [facility] Hematocrit Auto (Bld) [Volum e fraction]Ordered By: Darryl Pimentel on 12-16-2022 Hematocrit (Bld) [Volume fraction] 27.5 % 40-54 [facility] Blood hemoglobin measurement (mass/volume)Ordered By: Darryl Pimentel on 12-13-2022 Hemoglobin (Bld) [Mass/Vol] 7.5 g/dL 13.0-16.5 [facility] Hematocrit Auto (Bld) [Volum e fraction]Ordered By: Darryl Pimentel on 12-13-2022 Hematocrit (Bld) [Volume fraction] 25.9 % 40-54 [facility] Basophil percentageOrdered B y: Morteza Montoya on 12-06-2022 Basophils (Bld) [#/Vol] 8.9 10*3/uL 4.4-11.0 [facility] WBC (Bld) [#/Vol] 8.9 10*3/uL 4.4-11.0 [facility] Basophil percentage 3.0 mg/dL 2.5-4.9 [facility] Basophil percentage 94 mg/dL 74-106 [facility] Basophil percentage 143 mmol/L 136-145 [facility] Basophil percentage 4.0 mmol/L 3.5-5.1 [facility] Basophil percentage 110 mmol/L 98-107 [facility] Chloride [Moles/Vol] 110 mmol/L 98-107 [facility] Glucose [Mass/Vol] 94 mg/dL 74-106 [facility] Potassium [Moles/Vol] 4.0 mmol/L 3.5-5.1 [facility] Sodium [Moles/Vol] 143 mmol/L 136-145 [facility] Blood erythrocytes count (nu mber/volume)Ordered By: Morteza Montoya on 12-06-2022 RBC (Bld) [#/Vol] 2.88 10*6/uL 4.6-6.2 [facility] Blood hemoglobin measurement (mass/volume)Ordered By: Morteza Montoya on 12-06-2022 Hemoglobin (Bld) [Mass/Vol] 8.0 g/dL 13.0-16.5 [facility] Blood platelet mean volumeOr dered By: Morteza Montoya on 12-06-2022 Platelet mean volume (Bld) [Entitic vol] 8.7 fL 6.2-12.0 [facility] Determination of erythrocyte mean corpuscular volume (MCV)Ordered By: Morteza Montoya on 12-06-2022 MCV (RBC) [Entitic vol] 92.7 fL 80-94 [facility] Erythrocyte sedimentation ra teOrdered By: Morteza Montoya on 12-06-2022 ESR (Bld) [Velocity] 25 mm/h 0-20 [facility] Hematocrit Auto (Bld) [Volum e fraction]Ordered By: Morteza Montoya on 12-06-2022 Hematocrit (Bld) [Volume fraction] 26.7 % 40-54 [facility] Iron measurement (mass/mass) Ordered By: Morteza Montoya on 12-06-2022 Iron (Unsp spec) [Mass/Mass] 33 ug/dL 65-175 [facility] Laboratory - Chemistry and C hemistry - challengeOrdered By: Morteza Montoya on 12-06-2022 CO2 [Moles/Vol] 31.0 mmol/L 21.0-32.0 [facility] Urea nitrogen/Creatinine [Mass ratio] 17.6 mg/mg 10-20 [facility] - Hematology and Cell countsOrdered By: Morteza Montoya on 12-06-2022 Erythrocyte distribution width (RBC) [Entitic vol] 59.8 fL 35.1-43.9 [facility] Erythrocyte distribution width (RBC) [Ratio] 17.6 % 11.6-14.6 [facility] MCH (RBC) [Entitic mass] 27.8 pg 27.0-32.0 [facility] MCHC Auto (RBC) [Mass/Vol]Or dered By: Morteza Montoya on 12-06-2022 MCHC (RBC) [Mass/Vol] 30.0 g/dL 32-36 [facility] No Panel InformationOrdered By: Morteza Montoya on 12-06-2022 27.8 pg 27.0-32.0 [facility] 17.6 % 11.6-14.6 [facility] 59.8 fl 35.1-43.9 [facility] Estimated GFR (MDRD) Amer 85 mL/min >60 [facility] Comment on above: GFR Calc Estimated GFR (MDRD) Non-Af Amer 70 mL/min >60 [facility] Comment on above: Non- GFR Calc Parathyroid Hormone (Intact) 111.2 pg/mL 18.4-80.1 [facility] 70 mL/min >60 [facility] 85 mL/min >60 [facility] 17.6 RATIO 10-20 [facility] 31.0 mmol/L 21.0-32.0 [facility] 111.2 pg/mL 18.4-80.1 [facility] Platelets bldOrdered By: Ramos Montoya on 12-06-2022 Platelets (Bld) [#/Vol] 205 10*3/uL 150-450 [facility] Serum or plasma calcium reynold urement (mass/volume)Ordered By: Morteza Montoya on 12-06-2022 Calcium [Mass/Vol] 8.5 mg/dL 8.5-10.1 [facility] Serum or plasma creatinine m easurement (mass/volume)Ordered By: Morteza Montoya on 12-06-2022 Creatinine [Mass/Vol] 1.08 mg/dL 0.70-1.30 [facility] Comment on above: The validity of the calculated GFR & GFRAA in patients over 70 years has not been determined. Clinical correlation is essential. Serum or plasma urea nitroge n measurement (mass/volume)Ordered By: Morteza Montoya on 12-06-2022 Urea nitrogen [Mass/Vol] 19 mg/dL 7-18 [facility] Thin prep Papanicolaou smear with manual screeningOrdered By: Morteza Montoya on 12-06-2022 Thin prep Papanicolaou smear with manual screening 2 5-15 [facility] Absolute lymphocyte countOrd ered By: Carlitos Koch on 11-30-2022 Lymphocytes Auto (Unsp spec) [#/Vol] 0.53 10*3/uL 0.83-4.51 [facility] Basophil percentageOrdered B y: Carlitos Koch on 11-30-2022 Basophil percentage 102 mg/dL 74-106 [facility] Basophil percentage 139 mmol/L 136-145 [facility] Basophil percentage 3.4 mmol/L 3.5-5.1 [facility] Basophil percentage 108 mmol/L 98-107 [facility] Basophils (Bld) [#/Vol] 9.5 10*3/uL 4.4-11.0 [facility] Basophils (Bld) [#/Vol] 8.2 10*3/uL 2.0-7.7 [facility] Basophils/100 WBC (Bld) 0.3 % 0-1 [facility] Basophils/100 WBC (Bld) 86.6 % 47-70 [facility] Basophils/100 WBC (Bld) 2.2 % 0-5 [facility] Chloride [Moles/Vol] 108 mmol/L 98-107 [facility] Eosinophils/100 WBC (Bld) 2.2 % 0-5 [facility] Glucose [Mass/Vol] 102 mg/dL 74-106 [facility] Comment on above: Fasting Glucose resu lt from 100 to 125 mg/dL suggests IMPAIRED HOMEOSTASIS per A.D.A. criteria. Neutrophils (Bld) [#/Vol] 8.2 10*3/uL 2.0-7.7 [facility] Neutrophils/100 WBC (Bld) 86.6 % 47-70 [facility] Potassium [Moles/Vol] 3.4 mmol/L 3.5-5.1 [facility] Sodium [Moles/Vol] 139 mmol/L 136-145 [facility] WBC (Bld) [#/Vol] 9.5 10*3/uL 4.4-11.0 [facility] Blood erythrocytes count (nu mber/volume)Ordered By: Carlitos Koch on 11-30-2022 RBC (Bld) [#/Vol] 2.93 10*6/uL 4.6-6.2 [facility] Blood hemoglobin measurement (mass/volume)Ordered By: Carlitos Koch on 11-30-2022 Hemoglobin (Bld) [Mass/Vol] 7.9 g/dL 13.0-16.5 [facility] Blood lymphocytes/100 leukoc ytesOrdered By: Carlitos Koch on 11-30-2022 Lymphocytes/100 WBC (Bld) 5.6 % 19-41 [facility] Blood manual differential co mment interpretation (narrative result)Ordered By: Carlitos Koch on 11-30-2022 Manual differential comment Mina (Bld) [Interp] SCANNED [facility] Blood monocytes/100 leukocyt esOrdered By: Carlitos Koch on 11-30-2022 Monocytes/100 WBC (Bld) 4.9 % 0-10 [facility] Blood platelet mean volumeOr dered By: Carlitos Koch on 11-30-2022 Platelet mean volume (Bld) [Entitic vol] 8.6 fL 6.2-12.0 [facility] Determination of erythrocyte mean corpuscular volume (MCV)Ordered By: Carlitos Koch on 11-30-2022 MCV (RBC) [Entitic vol] 89.8 fL 80-94 [facility] Hematocrit Auto (Bld) [Volum e fraction]Ordered By: Carlitos Koch on 11-30-2022 Hematocrit (Bld) [Volume fraction] 26.3 % 40-54 [facility] Laboratory - Chemistry and C hemistry - challengeOrdered By: Carlitos Koch on 11-30-2022 CO2 [Moles/Vol] 25.0 mmol/L 21.0-32.0 [facility] [facility] Urea nitrogen/Creatinine [Mass ratio] 13.1 mg/mg 10-20 [facility] - Hematology and Cell countsOrdered By: Carlitos Koch on 11-30-2022 Erythrocyte distribution width (RBC) [Entitic vol] 57.0 fL 35.1-43.9 [facility] Erythrocyte distribution width (RBC) [Ratio] 17.7 % 11.6-14.6 [facility] Immature granulocytes/100 WBC (Bld) 0.400 % 0.0-0.9 [facility] Comment on above: IG% - Immature Granu locytes (promyelocytes, myelocytes and metamyelocytes) > 1% indicates that a LEFT SHIFT is Present. MCH (RBC) [Entitic mass] 27.0 pg 27.0-32.0 [facility] Nucleated RBC/100 WBC (Bld) [Ratio] 0 % 0-5 [facility] MCHC Auto (RBC) [Mass/Vol]Or dered By: Carlitos Koch on 11-30-2022 MCHC (RBC) [Mass/Vol] 30.0 g/dL 32-36 [facility] No Panel InformationOrdered By: Carlitos Koch on 11-30-2022 Estimated Creatinine Clearance Calc 57.58 ml/min [facility] Estimated GFR (MDRD) Amer 93 mL/min >60 [facility] Comment on above: GFR Calc Estimated GFR (MDRD) Non-Af Amer 77 mL/min >60 [facility] Comment on above: Non- GFR Calc 27.0 pg 27.0-32.0 [facility] 17.7 % 11.6-14.6 [facility] 57.0 fl 35.1-43.9 [facility] 0.400 % 0.0-0.9 [facility] 0 % 0-5 [facility] 77 mL/min >60 [facility] 93 mL/min >60 [facility] 57.58 ml/min [facility] 13.1 RATIO 10-20 [facility] 25.0 mmol/L 21.0-32.0 [facility] Platelets bldOrdered By: Jinny Koch on 11-30-2022 Platelets (Bld) [#/Vol] 232 10*3/uL 150-450 [facility] Serum or plasma calcium reynold urement (mass/volume)Ordered By: Carlitos Koch on 09-23-2023 Calcium [Mass/Vol] 8.5 mg/dL 8.5-10.1 [facility] Serum or plasma creatinine m easurement (mass/volume)Ordered By: Carlitos Koch on 11-30-2022 Creatinine [Mass/Vol] 0.99 mg/dL 0.70-1.30 [facility] Comment on above: The validity of the calculated GFR & GFRAA in patients over 70 years has not been determined. Clinical correlation is essential. Serum or plasma urea nitroge n measurement (mass/volume)Ordered By: Carlitos Koch on 11-30-2022 Urea nitrogen [Mass/Vol] 13 mg/dL 7-18 [facility] Thin prep Papanicolaou smear with manual screeningOrdered By: Carlitos Koch on 11-30-2022 Thin prep Papanicolaou smear with manual screening 6 5-15 [facility] Absolute lymphocyte countOrd ered By: Harshal Mtz on 11-28-2022 Lymphocytes Auto (Unsp spec) [#/Vol] 0.64 10*3/uL 0.83-4.51 [facility] Basophil percentageOrdered B y: Harshal Mtz on 11-28-2022 Basophils/100 WBC (Bld) 0.3 % 0-1 [facility] Chloride [Moles/Vol] 109 mmol/L 98-107 [facility] Eosinophils/100 WBC (Bld) 2.1 % 0-5 [facility] Glucose [Mass/Vol] 97 mg/dL 74-106 [facility] Neutrophils (Bld) [#/Vol] 9.2 10*3/uL 2.0-7.7 [facility] Neutrophils/100 WBC (Bld) 86.9 % 47-70 [facility] Potassium [Moles/Vol] 3.6 mmol/L 3.5-5.1 [facility] Sodium [Moles/Vol] 140 mmol/L 136-145 [facility] WBC (Bld) [#/Vol] 10.6 10*3/uL 4.4-11.0 [facility] Blood erythrocytes count (nu mber/volume)Ordered By: Harshal Mtz on 11-28-2022 RBC (Bld) [#/Vol] 2.83 10*6/uL 4.6-6.2 [facility] Blood hemoglobin measurement (mass/volume)Ordered By: Harshal Mtz on 11-28-2022 Hemoglobin (Bld) [Mass/Vol] 7.5 g/dL 13.0-16.5 [facility] Blood lymphocytes/100 leukoc ytesOrdered By: Harshal Mtz on 11-28-2022 Lymphocytes/100 WBC (Bld) 6.0 % 19-41 [facility] Blood monocytes/100 leukocyt esOrdered By: Harshal Mtz on 11-28-2022 Monocytes/100 WBC (Bld) 4.2 % 0-10 [facility] Blood platelet mean volumeOr dered By: Harshal Mtz on 11-28-2022 Platelet mean volume (Bld) [Entitic vol] 8.8 fL 6.2-12.0 [facility] Determination of erythrocyte mean corpuscular volume (MCV)Ordered By: Harshal Mtz on 11-28-2022 MCV (RBC) [Entitic vol] 90.5 fL 80-94 [facility] Hematocrit Auto (Bld) [Volum e fraction]Ordered By: Harshal Mtz on 11-28-2022 Hematocrit (Bld) [Volume fraction] 25.6 % 40-54 [facility] - Chemistry and C hemistry - challengeOrdered By: Harshal Mtz on 11-28-2022 CO2 [Moles/Vol] 26.0 mmol/L 21.0-32.0 [facility] Urea nitrogen/Creatinine [Mass ratio] 14.3 mg/mg 10-20 [facility] - Hematology and Cell countsOrdered By: Harshal Mtz on 11-28-2022 Erythrocyte distribution width (RBC) [Entitic vol] 58.4 fL 35.1-43.9 [facility] Erythrocyte distribution width (RBC) [Ratio] 17.8 % 11.6-14.6 [facility] Immature granulocytes/100 WBC (Bld) 0.500 % 0.0-0.9 [facility] Comment on above: IG% - Immature Granu locytes (promyelocytes, myelocytes and metamyelocytes) > 1% indicates that a LEFT SHIFT is Present. MCH (RBC) [Entitic mass] 26.5 pg 27.0-32.0 [facility] Nucleated RBC/100 WBC (Bld) [Ratio] 0 % 0-5 [facility] - Microbiology an d Antimicrobial susceptibilityOrdered By: Morteza Montoya on 11-28-2022 Bacteria identified Cx Nom (Bld) No growth in 5 days. [facility] MCHC Auto (RBC) [Mass/Vol]Or dered By: Harshal Mtz on 11-28-2022 MCHC (RBC) [Mass/Vol] 29.3 g/dL 32-36 [facility] No Panel InformationOrdered By: Morteza Montoya on 11-28-2022 No growth in 5 days. [facility] No Panel InformationOrdered By: Harshal Mtz on 11-28-2022 Estimated Creatinine Clearance Calc 50.89 ml/min [facility] Estimated GFR (MDRD) Amer 81 mL/min >60 [facility] Comment on above: GFR Calc Estimated GFR (MDRD) Non-Af Amer 67 mL/min >60 [facility] Comment on above: Non- GFR Calc Platelets bldOrdered By: Mihaela Mtz on 11-28-2022 Platelets (Bld) [#/Vol] 230 10*3/uL 150-450 [facility] Serum or plasma calcium reynold urement (mass/volume)Ordered By: Harshal Mtz on 11-28-2022 Calcium [Mass/Vol] 8.3 mg/dL 8.5-10.1 [facility] Serum or plasma creatinine m easurement (mass/volume)Ordered By: Harshal Mtz on 11-28-2022 Creatinine [Mass/Vol] 1.12 mg/dL 0.70-1.30 [facility] Comment on above: The validity of the calculated GFR & GFRAA in patients over 70 years has not been determined. Clinical correlation is essential. Serum or plasma trough vanco mycin levelOrdered By: Harshal Mtz on 11-28-2022 Vancomycin trough [Mass/Vol] 10.9 ug/mL 5.0-15.0 [facility] Comment on above: VANCOMYCIN STANDARED DRUG THERAPY TROUGH LEVEL: 5.0 - 15.0 mg/L VANCOMYCIN HIGH INTENSITY THERAPY TROUGH LEVEL: 15.0 - 20.0 mg/L High Intensity therapy recommended for serious lifethreatening infections include:- Ckdrbibtam-Hwbmjpgksxgx-Quzqxmhtu (Ventilator/Healtcare Associated)-Sepsis PLEASE CONTACT PHARMACY SERVICES (#[id number]) FOR INTERPRETATIONOF RESULTS. Serum or plasma urea nitroge n measurement (mass/volume)Ordered By: Harshal Mtz on 11-28-2022 Urea nitrogen [Mass/Vol] 16 mg/dL 7-18 [facility] Thin prep Papanicolaou smear with manual screeningOrdered By: Harshal Mtz on 11-28-2022 Thin prep Papanicolaou smear with manual screening 5 5-15 [facility] Bacteria identified Cx Nom ( U)Ordered By: Cal Renee on 11-27-2022 Culture, urine GPC Poss Enterococcus sp [facility] Basophil percentageOrdered B y: Cal Renee on 11-27-2022 Basophil percentage 1.3 mmol/L 0.4-2.0 [facility] Lactate [Moles/Vol] 1.3 mmol/L 0.4-2.0 [facility] Basophil percentage 0-5 SEEN /hpf 0-5 [facility] Basophil percentage 8.1 g/dL 6.4-8.2 [facility] Basophil percentage 0.70 mg/dL 0.20-1.00 [facility] Bilirubin [Mass/Vol] 0.70 mg/dL 0.20-1.00 [facility] Comment on above: For patients on eltr ombopag therapy, use of Dimension [place] TBIL is not recommended. Protein [Mass/Vol] 8.1 g/dL 6.4-8.2 [facility] Bilirubin Test strip Ql (U)O rdered By: Cal Renee on 11-27-2022 Bilirubin Ql (U) Negative Negative [facility] Blood manual differential co mment interpretation (narrative result)Ordered By: Cal Renee on 11-27-2022 Manual differential comment Mina (Bld) [Interp] SCANNED [facility] Culture, urineOrdered By: Lorenza Renee on 11-27-2022 Bacteria identified Cx Nom (U) GPC Poss Enterococcus sp [facility] Influenza virus A and B and SARS-CoV-2 (COVID-19) Ag panel - Upper respiratory specimOrdered By: Cal Renee on 11-27-2022 SARS-CoV-2 (COVID-19) RNA DEANNE+probe Ql (Resp) [facility] Ketones Test strip Ql (U)Ord ered By: Cal Renee on 11-27-2022 Ketones Ql (U) Negative Negative [facility] - Chemistry and C hemistry - challengeOrdered By: Cal Renee on 11-27-2022 ALP [Catalytic activity/Vol] 99 U/L 45-117 [facility] ALT [Catalytic activity/Vol] 18 U/L - [facility] Globulin (S) [Mass/Vol] 4.8 g/dL 2.2-4.2 [facility] Lipase [Catalytic activity/Vol] 27 U/L [facility] Comment on above: Please note:LIPASE r evised reference range effective 22. New Lipase methodology. Expected to produce lower values than the previous assay method. NEW Reference Range: 13 - 75 U/L Mucus LM Ql (Urine sed)Order ed By: Cal Renee on 11-27-2022 Mucus Ql (Urine sed) 0 SEEN /hpf [facility] Nitrite Test strip Ql (U)Ord ered By: Cal Renee on 11-27-2022 Nitrite Ql (U) Negative Negative [facility] No Panel InformationOrdered By: Cal Renee on 11-27-2022 4.8 g/dL 2.2-4.2 [facility] 27 U/L [facility] 99 U/L - [facility] 18 U/L [facility] Protein Test strip Ql (U)Ord ered By: Cal Renee on 11-27-2022 Protein Ql (U) 30 mg/dl Negative [facility] Serum or plasma albumin reynold urement (mass/volume)Ordered By: Cal Renee on 11-27-2022 Albumin [Mass/Vol] 3.3 g/dL 3.2-5.0 [facility] Serum or plasma albumin/glob ulin mass ratioOrdered By: Cal Renee on 11-27-2022 Albumin/Globulin [Mass ratio] 0.7 {ratio} 0.9-2.4 [facility] Squamous epithelial cells de tection in urine sediment by light microscopyOrdered By: Cal Renee on 11-27-2022 Epithelial cells.squamous LM Ql (Urine sed) 0 SEEN /hpf 0-5 [facility] Thin prep Papanicolaou smear with manual screeningOrdered By: Cal Renee on 11-27-2022 Thin prep Papanicolaou smear with manual screening 11 U/L 15-37 [facility] Urine blood detectionOrdered By: Cal Renee on 11-27-2022 RBC Ql (U) 10 /ul Negative [facility] RBC Ql (U) 0 SEEN /hpf 0-5 [facility] Urine clarityOrdered By: Kee Renee on 11-27-2022 Clarity (U) Clear Clear [facility] Urine color determinationOrd ered By: Cal Renee on 11-27-2022 Color (U) Yellow Yellow [facility] Urine glucose detectionOrder ed By: Cal Renee on 11-27-2022 Glucose Ql (U) Normal mg/dl Normal [facility] Urine leukocyte esterase det ection by dipstickOrdered By: Cal Renee on 11-27-2022 Leukocyte esterase Test strip Ql (U) 25 /ul Negative [facility] Urine pHOrdered By: Cal loo on 11-27-2022 pH (U) 6.5 [pH] 5.0 - 8.0 [facility] Urine sediment bacteria coun t by microscopy (number/high power field)Ordered By: Cal Renee on 11-27-2022 Bacteria LM.HPF (Urine sed) [#/Area] 0 /[HPF] None Seen [facility] Urine specific gravity measu rementOrdered By: Cal Renee on 11-27-2022 Specific gravity (U) [Rel density] 1.015 1.002-1.030 [facility] Urobilinogen Auto test strip Ql (U)Ordered By: Cal Renee on 11-27-2022 Urobilinogen Ql (U) 1 mg/dl Normal [facility] - Microbiology an d Antimicrobial susceptibilityOrdered By: Morteza Montoya on 11-26-2022 Bacteria identified Cx Nom (Bld) Alpha Hemolytic Streptococcus [facility] No Panel InformationOrdered By: Morteza Montoya on 11-26-2022 Bacteria Detection (PCR) Strep not Strep pneumo [facility] Alpha Hemolytic Streptococcus [facility] Absolute lymphocyte countOrd ered By: Darryl Pimentel on 11-25-2022 Lymphocytes Auto (Unsp spec) [#/Vol] 0.77 10*3/uL 0.83-4.51 [facility] Basophil percentageOrdered B y: Darryl Pimentel on 11-25-2022 Basophils (Bld) [#/Vol] 11.4 10*3/uL 4.4-11.0 [facility] Basophils (Bld) [#/Vol] 9.7 10*3/uL 2.0-7.7 [facility] Basophils/100 WBC (Bld) 0.4 % 0-1 [facility] Basophils/100 WBC (Bld) 85.4 % 47-70 [facility] Basophils/100 WBC (Bld) 2.2 % 0-5 [facility] Eosinophils/100 WBC (Bld) 2.2 % 0-5 [facility] Neutrophils (Bld) [#/Vol] 9.7 10*3/uL 2.0-7.7 [facility] Neutrophils/100 WBC (Bld) 85.4 % 47-70 [facility] WBC (Bld) [#/Vol] 11.4 10*3/uL 4.4-11.0 [facility] Blood erythrocytes count (nu mber/volume)Ordered By: Darryl Pimentel on 11-25-2022 RBC (Bld) [#/Vol] 2.94 10*6/uL 4.6-6.2 [facility] Blood hemoglobin measurement (mass/volume)Ordered By: Darryl Pimentel on 11-25-2022 Hemoglobin (Bld) [Mass/Vol] 8.1 g/dL 13.0-16.5 [facility] Blood lymphocytes/100 leukoc ytesOrdered By: Darryl Pimentel on 11-25-2022 Lymphocytes/100 WBC (Bld) 6.8 % 19-41 [facility] Blood monocytes/100 leukocyt esOrdered By: Darryl Pimentel on 11-25-2022 Monocytes/100 WBC (Bld) 4.7 % 0-10 [facility] Blood platelet mean volumeOr dered By: Darryl Pimentel on 11-25-2022 Platelet mean volume (Bld) [Entitic vol] 8.8 fL 6.2-12.0 [facility] Determination of erythrocyte mean corpuscular volume (MCV)Ordered By: Darryl Pimentel on 11-25-2022 MCV (RBC) [Entitic vol] 92.9 fL 80-94 [facility] Hematocrit Auto (Bld) [Volum e fraction]Ordered By: Darryl Pimentel on 11-25-2022 Hematocrit (Bld) [Volume fraction] 27.3 % 40-54 [facility] - Hematology and Cell countsOrdered By: Darryl Pimentel on 11-25-2022 Erythrocyte distribution width (RBC) [Entitic vol] 59.6 fL 35.1-43.9 [facility] Erythrocyte distribution width (RBC) [Ratio] 17.8 % 11.6-14.6 [facility] Immature granulocytes/100 WBC (Bld) 0.500 % 0.0-0.9 [facility] Comment on above: IG% - Immature Granu locytes (promyelocytes, myelocytes and metamyelocytes) > 1% indicates that a LEFT SHIFT is Present. MCH (RBC) [Entitic mass] 27.6 pg 27.0-32.0 [facility] Nucleated RBC/100 WBC (Bld) [Ratio] 0 % 0-5 [facility] MCHC Auto (RBC) [Mass/Vol]Or dered By: Darryl Pimentel on 11-25-2022 MCHC (RBC) [Mass/Vol] 29.7 g/dL 32-36 [facility] No Panel InformationOrdered By: Darryl Pimentel on 11-25-2022 27.6 pg 27.0-32.0 [facility] 17.8 % 11.6-14.6 [facility] 59.6 fl 35.1-43.9 [facility] 0.500 % 0.0-0.9 [facility] 0 % 0-5 [facility] Platelets bldOrdered By: Brendan Pimentel on 11-25-2022 Platelets (Bld) [#/Vol] 235 10*3/uL 150-450 [facility] MRI LUMBAR SPINE WO IVCONon 11-19-2022 MRI LUMBAR SPINE WO IVCON * * *Final Report* * * DATE OF EXAM: Nov 19 2022 11:27AM [facility] [id number] - MRI LUMBAR SPINE WO IVCON / PROCEDURE REASON: multiple diagnoses * * * * Physician Interpretation * * * * EXAMINATION: MRI LUMBAR SPINE WO IVCON CLINICAL HISTORY: Levoscoliosis of lumbar spine Lumbar spondylosis DDD (degenerative disc disease), lumbar Radiculopathy of lumbar region, back pain TECHNIQUE: Routine lumbosacral spine MR protocol without gadolinium. MQ: [id number] COMPARISON: CT abdomen and pelvis on 11/07/2022. RESULT: Counting reference: Lumbosacral junction. For the purposes of this report, L4-5 is considered the level of the iliac crest and assume there are 5 lumbar-type vertebrae. Anatomic variant: None. Alignment: Scoliotic spinal curvature. Grade 1 retrolisthesis of L2 relation to L3. Grade 1 anterolisthesis of L4 in relation to L5. Bone marrow signal/fracture: Endplate edema with fluid within disc space at L4-L5, particularly on the right. The lumbar vertebral body heights are within normal limits. Conus: The conus is within normal limits of signal intensity and morphology. Paraspinal soft tissues: Multiple T2 hyperintense renal lesions bilaterally, not completely characterized but most likely represents a renal cyst statistically. L1-L2: Canal and foramina are patent. L2-L3: Mild posterior disc osteophyte complex extends into neural foramina bilaterally. Tiny left central disc herniation. No significant neural foraminal stenosis. Mild spinal canal stenosis. L3-L4: Mild posterior disc osteophyte complex with moderate bilateral facet degenerative changes. Minimal bilateral neural foraminal stenosis. Minimal spinal canal stenosis. L4-L5: Grade 1 anterolisthesis of L4 in relation to L5. Moderate to severe bilateral facet degenerative changes. Moderate right neural foraminal stenosis. [id number] left neural foraminal stenosis. No significant spinal canal stenosis. L5-S1: Mild posterior disc osteophyte complex with bilateral facet degenerative changes. No significant neural foraminal stenosis. No significant spinal canal stenosis. IMPRESSION: 1. Endplate edema with fluid within disc space at L4-L5, particularly on the right. Although this may represent advanced degenerative changes, possibility of discitis or osteomyelitis should be excluded clinically and with lab work. 2. Multilevel degenerative changes of lumbar spine, without significant spinal canal stenosis, as detailed above. Neural foraminal stenosis, as detailed above. 3. Scoliotic spinal curvature with mild grade 1 spondylolisthesis, as detailed above. Anatomic Lumbar Variant: None. L4-5 is considered the level of the iliac crest and assume there are 5 lumbar-type vertebrae. Utility Person: [facility] Transcribe Date/Time: Nov 20 2022 8:33A Dictated by : IDA MC MD This examination was interpreted and the report reviewed and electronically signed by: IDA MC MD on Nov 20 2022 8:46AM EST [id number] Normal [facility] Absolute lymphocyte countOrd ered By: Bay Marquez on 11-17-2022 Lymphocytes Auto (Unsp spec) [#/Vol] 0.74 10*3/uL 0.83-4.51 [facility] Basophil percentageOrdered B y: Bay Marquez on 11-17-2022 Basophil percentage 116 mg/dL 74-106 [facility] Basophil percentage 140 mmol/L 136-145 [facility] Basophil percentage 3.9 mmol/L 3.5-5.1 [facility] Basophil percentage 107 mmol/L 98-107 [facility] Basophils (Bld) [#/Vol] 12.2 10*3/uL 4.4-11.0 [facility] Basophils (Bld) [#/Vol] 10.7 10*3/uL 2.0-7.7 [facility] Basophils/100 WBC (Bld) 0.4 % 0-1 [facility] Basophils/100 WBC (Bld) 88.1 % 47-70 [facility] Basophils/100 WBC (Bld) 0.9 % 0-5 [facility] Chloride [Moles/Vol] 107 mmol/L 98-107 [facility] Eosinophils/100 WBC (Bld) 0.9 % 0-5 [facility] Glucose [Mass/Vol] 116 mg/dL 74-106 [facility] Comment on above: Fasting Glucose resu lt from 100 to 125 mg/dL suggests IMPAIRED HOMEOSTASIS per A.D.A. criteria. Neutrophils (Bld) [#/Vol] 10.7 10*3/uL 2.0-7.7 [facility] Neutrophils/100 WBC (Bld) 88.1 % 47-70 [facility] Potassium [Moles/Vol] 3.9 mmol/L 3.5-5.1 [facility] Sodium [Moles/Vol] 140 mmol/L 136-145 [facility] WBC (Bld) [#/Vol] 12.2 10*3/uL 4.4-11.0 [facility] Blood erythrocytes count (nu mber/volume)Ordered By: Bay Marquez on 11-17-2022 RBC (Bld) [#/Vol] 3.46 10*6/uL 4.6-6.2 [facility] Blood hemoglobin measurement (mass/volume)Ordered By: Bay Marquez on 11-17-2022 Hemoglobin (Bld) [Mass/Vol] 9.3 g/dL 13.0-16.5 [facility] Blood lymphocytes/100 leukoc ytesOrdered By: Bay Marquez on 11-17-2022 Lymphocytes/100 WBC (Bld) 6.1 % 19-41 [facility] Blood monocytes/100 leukocyt esOrdered By: Bay Marquez on 11-17-2022 Monocytes/100 WBC (Bld) 4.1 % 0-10 [facility] Blood platelet mean volumeOr dered By: Bay Marquez on 11-17-2022 Platelet mean volume (Bld) [Entitic vol] 8.6 fL 6.2-12.0 [facility] Determination of erythrocyte mean corpuscular volume (MCV)Ordered By: Bay Marquez on 11-17-2022 MCV (RBC) [Entitic vol] 92.5 fL 80-94 [facility] Hematocrit Auto (Bld) [Volum e fraction]Ordered By: Bay Marquez on 11-17-2022 Hematocrit (Bld) [Volume fraction] 32.0 % 40-54 [facility] - Chemistry and C hemistry - challengeOrdered By: Bay Marquez on 11-17-2022 CO2 [Moles/Vol] 29.0 mmol/L 21.0-32.0 [facility] Urea nitrogen/Creatinine [Mass ratio] 19.1 mg/mg 10- [facility] - Hematology and Cell countsOrdered By: Bay Marquez on 11-17-2022 Erythrocyte distribution width (RBC) [Entitic vol] 57.2 fL 35.1-43.9 [facility] Erythrocyte distribution width (RBC) [Ratio] 17.0 % 11.6-14.6 [facility] Immature granulocytes/100 WBC (Bld) 0.400 % 0.0-0.9 [facility] Comment on above: IG% - Immature Granu locytes (promyelocytes, myelocytes and metamyelocytes) > 1% indicates that a LEFT SHIFT is Present. MCH (RBC) [Entitic mass] 26.9 pg 27.0-32.0 [facility] Nucleated RBC/100 WBC (Bld) [Ratio] 0 % 0-5 [facility] MCHC Auto (RBC) [Mass/Vol]Or dered By: Bay Marquez on 11-17-2022 MCHC (RBC) [Mass/Vol] 29.1 g/dL 32-36 [facility] No Panel InformationOrdered By: Bay Marquez on 11-17-2022 Estimated Creatinine Clearance Calc 49.57 ml/min [facility] Estimated GFR (MDRD) Amer 79 mL/min >60 [facility] Comment on above: GFR Calc Estimated GFR (MDRD) Non-Af Amer 65 mL/min >60 [facility] Comment on above: Non- GFR Calc 26.9 pg 27.0-32.0 [facility] 17.0 % 11.6-14.6 [facility] 57.2 fl 35.1-43.9 [facility] 0.400 % 0.0-0.9 [facility] 0 % 0-5 [facility] 65 mL/min >60 [facility] 79 mL/min >60 [facility] 49.57 ml/min [facility] 19.1 RATIO 12-27 [facility] 29.0 mmol/L 21.0-32.0 [facility] Platelets bldOrdered By: Saskia Marquez on 11-17-2022 Platelets (Bld) [#/Vol] 214 10*3/uL 150-450 [facility] Serum or plasma calcium reynold urement (mass/volume)Ordered By: Bay Marquez on 11-17-2022 Calcium [Mass/Vol] 8.8 mg/dL 8.5-10.1 [facility] Serum or plasma creatinine m easurement (mass/volume)Ordered By: Bay Marquez on 11-17-2022 Creatinine [Mass/Vol] 1.15 mg/dL 0.70-1.30 [facility] Comment on above: The validity of the calculated GFR & GFRAA in patients over 70 years has not been determined. Clinical correlation is essential. Serum or plasma urea nitroge n measurement (mass/volume)Ordered By: Bay Marquez on 11-17-2022 Urea nitrogen [Mass/Vol] 22 mg/dL 7-18 [facility] Thin prep Papanicolaou smear with manual screeningOrdered By: Bay Marquez on 11-17-2022 Thin prep Papanicolaou smear with manual screening 4 5-15 [facility] Stool enteric pathogen panel by probe and target amplification methodOrdered By: Darryl Pimentel on 11-14-2022 Gastrointestinal pathogens panel DEANNE+probe (Stl) [facility] No Panel Informationon 11-07 [facility] Absolute lymphocyte countOrd ered By: Harshal Mtz on 11-05-2022 Lymphocytes Auto (Unsp spec) [#/Vol] 0.74 10*3/uL 0.83-4.51 [facility] Basophil percentageOrdered B y: Harshal Mtz on 11-05-2022 Basophil percentage 98 mg/dL 74-106 [facility] Basophil percentage 137 mmol/L 136-145 [facility] Basophil percentage 3.7 mmol/L 3.5-5.1 [facility] Basophil percentage 107 mmol/L 98-107 [facility] Basophils (Bld) [#/Vol] 9.0 10*3/uL 4.4-11.0 [facility] Basophils (Bld) [#/Vol] 7.5 10*3/uL 2.0-7.7 [facility] Basophils/100 WBC (Bld) 0.2 % 0-1 [facility] Basophils/100 WBC (Bld) 82.5 % 47-70 [facility] Basophils/100 WBC (Bld) 2.7 % 0-5 [facility] Chloride [Moles/Vol] 107 mmol/L 98-107 [facility] Eosinophils/100 WBC (Bld) 2.7 % 0-5 [facility] Glucose [Mass/Vol] 98 mg/dL 74-106 [facility] Neutrophils (Bld) [#/Vol] 7.5 10*3/uL 2.0-7.7 [facility] Neutrophils/100 WBC (Bld) 82.5 % 47-70 [facility] Potassium [Moles/Vol] 3.7 mmol/L 3.5-5.1 [facility] Sodium [Moles/Vol] 137 mmol/L 136-145 [facility] WBC (Bld) [#/Vol] 9.0 10*3/uL 4.4-11.0 [facility] Blood erythrocytes count (nu mber/volume)Ordered By: Harshal Mtz on 11-05-2022 RBC (Bld) [#/Vol] 3.28 10*6/uL 4.6-6.2 [facility] Blood hemoglobin measurement (mass/volume)Ordered By: Harshal Mtz on 11-05-2022 Hemoglobin (Bld) [Mass/Vol] 8.8 g/dL 13.0-16.5 [facility] Blood lymphocytes/100 leukoc ytesOrdered By: Harshal Mtz on 11-05-2022 Lymphocytes/100 WBC (Bld) 8.2 % 19-41 [facility] Blood monocytes/100 leukocyt esOrdered By: Harshal Mtz on 11-05-2022 Monocytes/100 WBC (Bld) 5.4 % 0-10 [facility] Blood platelet mean volumeOr dered By: Harshal Mtz on 11-05-2022 Platelet mean volume (Bld) [Entitic vol] 9.0 fL 6.2-12.0 [facility] Determination of erythrocyte mean corpuscular volume (MCV)Ordered By: Harshal Mtz on 11-05-2022 MCV (RBC) [Entitic vol] 88.4 fL 80-94 [facility] Hematocrit Auto (Bld) [Volum e fraction]Ordered By: Harshal Mtz on 11-05-2022 Hematocrit (Bld) [Volume fraction] 29.0 % 40-54 [facility] Laboratory - Chemistry and C hemistry - challengeOrdered By: Harshal Mtz on 11-05-2022 CO2 [Moles/Vol] 27.0 mmol/L 21.0-32.0 [facility] Urea nitrogen/Creatinine [Mass ratio] 16.5 mg/mg 10-20 [facility] Laboratory - Hematology and Cell countsOrdered By: Harshal Mtz on 11-05-2022 Erythrocyte distribution width (RBC) [Entitic vol] 50.4 fL 35.1-43.9 [facility] Erythrocyte distribution width (RBC) [Ratio] 15.8 % 11.6-14.6 [facility] Immature granulocytes/100 WBC (Bld) 1.000 % 0.0-0.9 [facility] Comment on above: IG% - Immature Granu locytes (promyelocytes, myelocytes and metamyelocytes) > 1% indicates that a LEFT SHIFT is Present. MCH (RBC) [Entitic mass] 26.8 pg 27.0-32.0 [facility] Nucleated RBC/100 WBC (Bld) [Ratio] 0 % 0-5 [facility] Laboratory - Microbiology an d Antimicrobial susceptibilityOrdered By: Morteza Montoya on 11-05-2022 Bacteria identified Cx Nom (Bld) No growth in 5 days. [facility] MCHC Auto (RBC) [Mass/Vol]Or dered By: Harshal Mtz on 11-05-2022 MCHC (RBC) [Mass/Vol] 30.3 g/dL 32-36 [facility] No Panel InformationOrdered By: Morteza Montoya on 11-05-2022 No growth in 5 days. [facility] No Panel InformationOrdered By: Harshal Mtz on 11-05-2022 Estimated Creatinine Clearance Calc 52.29 ml/min [facility] Estimated GFR (MDRD) Amer 84 mL/min >60 [facility] Comment on above: GFR Calc Estimated GFR (MDRD) Non-Af Amer 69 mL/min >60 [facility] Comment on above: Non- GFR Calc 26.8 pg 27.0-32.0 [facility] 15.8 % 11.6-14.6 [facility] 50.4 fl 35.1-43.9 [facility] 1.000 % 0.0-0.9 [facility] 0 % 0-5 [facility] 69 mL/min >60 [facility] 84 mL/min >60 [facility] 52.29 ml/min [facility] 16.5 RATIO 10-20 [facility] 27.0 mmol/L 21.0-32.0 [facility] Platelets bldOrdered By: Mihaela Mtz on 11-05-2022 Platelets (Bld) [#/Vol] 273 10*3/uL 150-450 [facility] Serum or plasma calcium reynold urement (mass/volume)Ordered By: Harshal Mtz on 11-05-2022 Calcium [Mass/Vol] 8.4 mg/dL 8.5-10.1 [facility] Serum or plasma creatinine m easurement (mass/volume)Ordered By: Harshal Mtz on 11-05-2022 Creatinine [Mass/Vol] 1.09 mg/dL 0.70-1.30 [facility] Comment on above: The validity of the calculated GFR & GFRAA in patients over 70 years has not been determined. Clinical correlation is essential. Serum or plasma urea nitroge n measurement (mass/volume)Ordered By: Harshal Mtz on 11-05-2022 Urea nitrogen [Mass/Vol] 18 mg/dL 7-18 [facility] Thin prep Papanicolaou smear with manual screeningOrdered By: Harshal Mtz on 11-05-2022 Thin prep Papanicolaou smear with manual screening 3 5-15 [facility] Basophil percentageOrdered B y: Emma Medina on 11-02-2022 Basophil percentage 0 SEEN /hpf 0-5 [facility] Basophil percentage 2.9 mg/dL 2.5-4.9 [facility] Basophil percentage 7.5 g/dL 6.4-8.2 [facility] Basophil percentage 0.70 mg/dL 0.20-1.00 [facility] Bilirubin [Mass/Vol] 0.70 mg/dL 0.20-1.00 [facility] Comment on above: For patients on eltr ombopag therapy, use of Dimension [place] TBIL is not recommended. Protein [Mass/Vol] 7.5 g/dL 6.4-8.2 [facility] Bilirubin Test strip Ql (U)O rdered By: Emma Medina on 11-02-2022 Bilirubin Ql (U) Negative Negative [facility] Blood manual differential co mment interpretation (narrative result)Ordered By: Emma Medina on 11-02-2022 Manual differential comment Mnia (Bld) [Interp] SCANNED [facility] Comment on above: LYMPHOPENIA PRESENT Ketones Test strip Ql (U)Ord ered By: Emma Medina on 11-02-2022 Ketones Ql (U) Negative Negative [facility] Laboratory - Chemistry and C hemistry - challengeOrdered By: Emma Medina on 11-02-2022 ALP [Catalytic activity/Vol] 82 U/L 45-117 [facility] ALT [Catalytic activity/Vol] 23 U/L - [facility] Globulin (S) [Mass/Vol] 4.6 g/dL 2.2-4.2 [facility] Magnesium [Mass/Vol] 2.3 mg/dL 1.6-2.6 [facility] Mucus LM Ql (Urine sed)Order ed By: Emma Medina on 11-02-2022 Mucus Ql (Urine sed) 0 SEEN /hpf [facility] Nitrite Test strip Ql (U)Ord ered By: Emma Medina on 11-02-2022 Nitrite Ql (U) Negative Negative [facility] No Panel InformationOrdered By: Darryl Pimentel on 11-02-2022 Troponin I High Sensitivity 12 pg/mL 3.0-78.0 [facility] Comment on above: Please Note: New Ani t Units and Gender Specific Reference Ranges. For more information see Policy Stat Procedure [place] High Sensitivity Troponin (TNIH) and attachments. 12 pg/mL 3.0-78.0 [facility] No Panel InformationOrdered By: Emma Medina on 11-02-2022 Thyroid Stimulating Hormone (TSH) 0.78 uIU/mL 0.358-3.74 [facility] 4.6 g/dL 2.2-4.2 [facility] 82 U/L 45-117 [facility] 23 U/L 16-61 [facility] 2.3 mg/dL 1.6-2.6 [facility] 0.78 uIU/mL 0.358-3.74 [facility] Protein Test strip Ql (U)Ord ered By: Emma Medina on 11-02-2022 Protein Ql (U) Negative Negative [facility] Respiratory pathogens detect ion panel by molecular detection methodOrdered By: Emma Medina on 11-02-2022 Respiratory pathogens DNA and RNA panel DEANNE+probe (Resp) [facility] Serum or plasma albumin reynold urement (mass/volume)Ordered By: Emma Medina on 11-02-2022 Albumin [Mass/Vol] 2.9 g/dL 3.2-5.0 [facility] Serum or plasma albumin/glob ulin mass ratioOrdered By: Emma Medina on 11-02-2022 Albumin/Globulin [Mass ratio] 0.6 {ratio} 0.9-2.4 [facility] Squamous epithelial cells de tection in urine sediment by light microscopyOrdered By: Emma Medina on 11-02-2022 Epithelial cells.squamous LM Ql (Urine sed) 0 SEEN /hpf 0-5 [facility] Thin prep Papanicolaou smear with manual screeningOrdered By: Emma Medina on 11-02-2022 Thin prep Papanicolaou smear with manual screening 20 U/L 15-37 [facility] Urine blood detectionOrdered By: Emma Medina on 11-02-2022 RBC Ql (U) Negative Negative [facility] RBC Ql (U) 0 SEEN /hpf 0-5 [facility] Urine clarityOrdered By: Deyanira Medina on 11-02-2022 Clarity (U) Clear Clear [facility] Urine color determinationOrd ered By: Emma Medina on 11-02-2022 Color (U) Yellow Yellow [facility] Urine glucose detectionOrder ed By: Emma Medina on 11-02-2022 Glucose Ql (U) Normal mg/dl Normal [facility] Urine leukocyte esterase det ection by dipstickOrdered By: Emma Medina on 11-02-2022 Leukocyte esterase Test strip Ql (U) Negative Negative [facility] Urine pHOrdered By: Emma Medina on 11-02-2022 pH (U) 6.0 [pH] 5.0 - 8.0 [facility] Urine sediment bacteria coun t by microscopy (number/high power field)Ordered By: Emma Medina on 11-02-2022 Bacteria LM.HPF (Urine sed) [#/Area] 0 /[HPF] None Seen [facility] Urine specific gravity measu rementOrdered By: Emma Medina on 11-02-2022 Specific gravity (U) [Rel density] 1.010 1.002-1.030 [facility] Urobilinogen Auto test strip Ql (U)Ordered By: Emma Medina on 11-02-2022 Urobilinogen Ql (U) Normal mg/dl Normal [facility] Direct bilirubinOrdered By: Emma Medina on 11-01-2022 Bilirubin.direct [Mass/Vol] 0.22 mg/dL 0.00-0.30 [facility] Erythrocyte sedimentation ra teOrdered By: Emma Medina on 11-01-2022 ESR (Bld) [Velocity] 19 mm/h 0-20 [facility] Iron measurement (mass/mass) Ordered By: Emma Medina on 11-01-2022 Iron (Unsp spec) [Mass/Mass] 22 ug/dL 65-175 [facility] No Panel InformationOrdered By: Emma Medina on 11-01-2022 Total Iron Binding Capacity 205 ug/dL 250-450 [facility] 205 ug/dL 250-450 [facility] Serum or plasma C reactive p rotein measurement (mass/volume)Ordered By: Emma Medina on 11-01-2022 CRP [Mass/Vol] 77.40 mg/L 0.0-3.0 [facility] Comment on above: C-Reactive Protein ( CRP) provides useful information for thediagnosis, therapy and monitoring of inflammatory processesand associated diseases. For the evaluation of Relative Riskfor Cardiovascular Disease, a High Sensitivity CRP (HSCRP)should be ordered. Serum or plasma iron saturat ion measurement (mass fraction)Ordered By: Emma Medina on 11-01-2022 Iron saturation [Mass fraction] 10.7 % 15.0-55.0 [facility] Serum procalcitonin measurem entOrdered By: Emma Medina on 11-01-2022 Procalcitonin [Mass/Vol] 0.35 ng/mL 0.00-0.09 [facility] Comment on above: A procalcitonin (PCT ) level above 2.0 ng/mL on the first day of ICU admission is associated with a high risk for progression to severe sepsis and/or septic shock. A PCT level below 0.5 ng/mL on the first day of ICU admission is associated with a low risk for progression to severe and/or septic shock. Note: Concentrations <0.5 ng/mL do not exclude an infection on account of localized infections (without systemic signs) which can be associated with such low concentrations, or a systemic infection in its initial stages (<6 hours). Furthermore, increased procalcitonin can occur without infection. PCT concentrations between 0.5 and 2.0 ng/mL should be interpreted taking into account the patient's history. It is recommended to retest PCT within 6-24 hours if any concentrations <2 ng/mL are obtained. Stool gastrointestinal hemog lobin detection by immunologic methodOrdered By: Dustin Jeffery on 11-01-2022 Lower GI hemoglobin IA Ql (Stl) [facility] Absolute lymphocyte countOrd ered By: Victor Manuel Jurado on 10-05-2022 Lymphocytes Auto (Unsp spec) [#/Vol] 0.47 10*3/uL 0.83-4.51 [facility] Basophil percentageOrdered B y: Victor Manuel Jurado on 10-05-2022 Basophil percentage 0 SEEN /hpf 0-5 [facility] Basophil percentage 107 mg/dL 74-106 [facility] Basophil percentage 7.4 g/dL 6.4-8.2 [facility] Basophil percentage 0.60 mg/dL 0.20-1.00 [facility] Basophil percentage 135 mmol/L 136-145 [facility] Basophil percentage 4.4 mmol/L 3.5-5.1 [facility] Basophil percentage 103 mmol/L 98-107 [facility] Basophils (Bld) [#/Vol] 8.1 10*3/uL 4.4-11.0 [facility] Basophils (Bld) [#/Vol] 7.0 10*3/uL 2.0-7.7 [facility] Basophils/100 WBC (Bld) 0.2 % 0-1 [facility] Basophils/100 WBC (Bld) 85.5 % 47-70 [facility] Basophils/100 WBC (Bld) 0.5 % 0-5 [facility] Bilirubin [Mass/Vol] 0.60 mg/dL 0.20-1.00 [facility] Comment on above: For patients on eltr ombopag therapy, use of Dimension [place] TBIL is not recommended. Chloride [Moles/Vol] 103 mmol/L 98-107 [facility] Eosinophils/100 WBC (Bld) 0.5 % 0-5 [facility] Glucose [Mass/Vol] 107 mg/dL 74-106 [facility] Comment on above: Fasting Glucose resu lt from 100 to 125 mg/dL suggests IMPAIRED HOMEOSTASIS per A.D.A. criteria. Neutrophils (Bld) [#/Vol] 7.0 10*3/uL 2.0-7.7 [facility] Neutrophils/100 WBC (Bld) 85.5 % 47-70 [facility] Potassium [Moles/Vol] 4.4 mmol/L 3.5-5.1 [facility] Protein [Mass/Vol] 7.4 g/dL 6.4-8.2 [facility] Sodium [Moles/Vol] 135 mmol/L 136-145 [facility] WBC (Bld) [#/Vol] 8.1 10*3/uL 4.4-11.0 [facility] Bilirubin Test strip Ql (U)O rdered By: Victor Manuel Jurado on 10-05-2022 Bilirubin Ql (U) Negative Negative [facility] Blood erythrocytes count (nu mber/volume)Ordered By: Victor Manuel Jurado on 10-05-2022 RBC (Bld) [#/Vol] 3.39 10*6/uL 4.6-6.2 [facility] Blood hemoglobin measurement (mass/volume)Ordered By: Victor Manuel Jurado on 10-05-2022 Hemoglobin (Bld) [Mass/Vol] 9.7 g/dL 13.0-16.5 [facility] Blood lymphocytes/100 leukoc ytesOrdered By: Victor Manuel Jurado on 10-05-2022 Lymphocytes/100 WBC (Bld) 5.8 % 19-41 [facility] Blood monocytes/100 leukocyt esOrdered By: Victor Manuel Jurado on 10-05-2022 Monocytes/100 WBC (Bld) 7.3 % 0-10 [facility] Blood platelet mean volumeOr dered By: Victor Manuel Jurado on 10-05-2022 Platelet mean volume (Bld) [Entitic vol] 9.0 fL 6.2-12.0 [facility] Determination of erythrocyte mean corpuscular volume (MCV)Ordered By: Victor Manuel Jurado on 10-05-2022 MCV (RBC) [Entitic vol] 92.9 fL 80-94 [facility] Hematocrit Auto (Bld) [Volum e fraction]Ordered By: Victor Manuel Jurado on 10-05-2022 Hematocrit (Bld) [Volume fraction] 31.5 % 40-54 [facility] Ketones Test strip Ql (U)Ord ered By: Victor Manuel Jurado on 10-05-2022 Ketones Ql (U) Negative Negative [facility] Laboratory - Chemistry and C hemistry - challengeOrdered By: Victor Manuel Jurado on 10-05-2022 ALP [Catalytic activity/Vol] 95 U/L 45-117 [facility] ALT [Catalytic activity/Vol] 43 U/L 16-61 [facility] CO2 [Moles/Vol] 27.0 mmol/L 21.0-32.0 [facility] Globulin (S) [Mass/Vol] 4.6 g/dL 2.2-4.2 [facility] Lipase [Catalytic activity/Vol] 64 U/L 13-75 [facility] Comment on above: Please note:LIPASE r evised reference range effective 22. New Lipase methodology. Expected to produce lower values than the previous assay method. NEW Reference Range: 13 - 75 U/L Natriuretic peptide B (Bld) [Mass/Vol] 198.6 pg/mL 0-100 [facility] Urea nitrogen/Creatinine [Mass ratio] 21.6 mg/mg 10-20 [facility] Laboratory - Hematology and Cell countsOrdered By: Victor Manuel Jurado on 10-05-2022 Erythrocyte distribution width (RBC) [Entitic vol] 52.4 fL 35.1-43.9 [facility] Erythrocyte distribution width (RBC) [Ratio] 15.3 % 11.6-14.6 [facility] Immature granulocytes/100 WBC (Bld) 0.700 % 0.0-0.9 [facility] Comment on above: IG% - Immature Granu locytes (promyelocytes, myelocytes and metamyelocytes) > 1% indicates that a LEFT SHIFT is Present. MCH (RBC) [Entitic mass] 28.6 pg 27.0-32.0 [facility] Nucleated RBC/100 WBC (Bld) [Ratio] 0 % 0-5 [facility] MCHC Auto (RBC) [Mass/Vol]Or dered By: Victor Manuel Jurado on 10-05-2022 MCHC (RBC) [Mass/Vol] 30.8 g/dL 32-36 [facility] Mucus LM Ql (Urine sed)Order ed By: Victor Manuel Jurado on 10-05-2022 Mucus Ql (Urine sed) 0 SEEN /hpf [facility] Nitrite Test strip Ql (U)Ord ered By: Victor Manuel Jurado on 10-05-2022 Nitrite Ql (U) Negative Negative [facility] No Panel InformationOrdered By: Victor Manuel Jurado on 10-05-2022 Estimated Creatinine Clearance Calc 45.60 ml/min [facility] Estimated GFR (MDRD) Amer 71 mL/min >60 [facility] Comment on above: GFR Calc Estimated GFR (MDRD) Non-Af Amer 59 mL/min >60 [facility] Comment on above: Non- GFR Calc 28.6 pg 27.0-32.0 [facility] 15.3 % 11.6-14.6 [facility] 52.4 fl 35.1-43.9 [facility] 0.700 % 0.0-0.9 [facility] 0 % 0-5 [facility] 59 mL/min >60 [facility] 71 mL/min >60 [facility] 45.60 ml/min [facility] 21.6 RATIO 10-20 [facility] 4.6 g/dL 2.2-4.2 [facility] 64 U/L 13-75 [facility] 95 U/L 45-117 [facility] 43 U/L 16-61 [facility] 27.0 mmol/L 21.0-32.0 [facility] 198.6 pg/mL 0-100 [facility] Platelets bldOrdered By: Trinidad Jurado on 10-05-2022 Platelets (Bld) [#/Vol] 214 10*3/uL 150-450 [facility] Protein Test strip Ql (U)Ord ered By: Victor Manuel Jurado on 10-05-2022 Protein Ql (U) Negative Negative [facility] Serum or plasma albumin reynold urement (mass/volume)Ordered By: Victor Manuel Jurado on 10-05-2022 Albumin [Mass/Vol] 2.8 g/dL 3.2-5.0 [facility] Serum or plasma albumin/glob ulin mass ratioOrdered By: Victor Manuel Jurado on 10-05-2022 Albumin/Globulin [Mass ratio] 0.6 {ratio} 0.9-2.4 [facility] Serum or plasma calcium reynold urement (mass/volume)Ordered By: Victor Manuel Jurado on 10-05-2022 Calcium [Mass/Vol] 8.8 mg/dL 8.5-10.1 [facility] Serum or plasma creatinine m easurement (mass/volume)Ordered By: Victor Manuel Jurado on 10-05-2022 Creatinine [Mass/Vol] 1.25 mg/dL 0.70-1.30 [facility] Comment on above: The validity of the calculated GFR & GFRAA in patients over 70 years has not been determined. Clinical correlation is essential. Serum or plasma urea nitroge n measurement (mass/volume)Ordered By: Victor Manuel Jurado on 10-05-2022 Urea nitrogen [Mass/Vol] 27 mg/dL 7-18 [facility] Squamous epithelial cells de tection in urine sediment by light microscopyOrdered By: Victor Manuel Jurado on 10-05-2022 Epithelial cells.squamous LM Ql (Urine sed) 0 SEEN /hpf 0-5 [facility] Thin prep Papanicolaou smear with manual screeningOrdered By: Victor Manuel Jurado on 10-05-2022 Thin prep Papanicolaou smear with manual screening 33 U/L 15-37 [facility] Thin prep Papanicolaou smear with manual screening 5 5-15 [facility] Urine blood detectionOrdered By: Victor Manuel Jurado on 10-05-2022 RBC Ql (U) Negative Negative [facility] RBC Ql (U) 0 SEEN /hpf 0-5 [facility] Urine clarityOrdered By: Trinidad Jurado on 10-05-2022 Clarity (U) Clear Clear [facility] Urine color determinationOrd ered By: Victor Manuel Jurado on 10-05-2022 Color (U) Yellow Yellow [facility] Urine glucose detectionOrder ed By: Victor Manuel Jurado on 10-05-2022 Glucose Ql (U) Normal mg/dl Normal [facility] Urine leukocyte esterase det ection by dipstickOrdered By: Victor Manuel Jurado on 10-05-2022 Leukocyte esterase Test strip Ql (U) Negative Negative [facility] Urine pHOrdered By: Victor Manuel lisa on 10-05-2022 pH (U) 6.0 [pH] 5.0 - 8.0 [facility] Urine sediment bacteria coun t by microscopy (number/high power field)Ordered By: Victor Manuel Jurado on 10-05-2022 Bacteria LM.HPF (Urine sed) [#/Area] 0 /[HPF] None Seen [facility] Urine specific gravity measu rementOrdered By: Victor Manuel Jurado on 10-05-2022 Specific gravity (U) [Rel density] 1.015 1.002-1.030 [facility] Urobilinogen Auto test strip Ql (U)Ordered By: Victor Manuel Jurado on 10-05-2022 Urobilinogen Ql (U) Normal mg/dl Normal [facility] Basophil percentageOrdered B y: Basilio Warren on 07-26-2022 Bilirubin [Mass/Vol] 0.70 mg/dL 0.20-1.00 [facility] Comment on above: For patients on eltr ombopag therapy, use of Dimension [place] TBIL is not recommended. Cholesterol [Mass/Vol] 165 mg/dL <200 [facility] Comment on above: <200 mg/dL Desirable 200-240 mg/dL Borderline >240 mg/dL High Risk Protein [Mass/Vol] 8.2 g/dL 6.4-8.2 [facility] Triglyceride [Mass/Vol] 56 mg/dL <199 [facility] Comment on above: The drugs N-Acetylcy steine and Metamizole may falsely depress this assay.Serum Triglycerides Reference Interval Normal <150 mg/dL Borderline high 150 - 199 mg/dL High 200 - 499 mg/dL Very High > or = 500 mg/dL Direct bilirubinOrdered By: Basilio Warren on 07-26-2022 Bilirubin.direct [Mass/Vol] 0.18 mg/dL 0.00-0.30 [facility] Laboratory - Chemistry and C hemistry - challengeOrdered By: Basilio Warren on 07-26-2022 ALP [Catalytic activity/Vol] 89 U/L 45-117 [facility] ALT [Catalytic activity/Vol] 22 U/L 16-61 [facility] Globulin (S) [Mass/Vol] 4.2 g/dL 2.2-4.2 [facility] Serum or plasma albumin reynold urement (mass/volume)Ordered By: Basilio Warren on 07-26-2022 Albumin [Mass/Vol] 4.0 g/dL 3.2-5.0 [facility] Serum or plasma cholesterol in HDL measurement (mass/volume)Ordered By: Basilio Warren on 07-26-2022 Cholesterol in HDL [Mass/Vol] 53 mg/dL >40 [facility] Comment on above: The drugs N-Acetylcy steine and Metamizole may falsely depress this assay. Reference Range HDL <40 mg/dL Low HDL Cholesterol HDL >or= 60 mg/dL High HDL Cholesterol Serum or plasma cholesterol in VLDL measurement (mass/volume)Ordered By: Basilio Warren on 07-26-2022 Cholesterol in VLDL [Mass/Vol] 11 mg/dL 5-40 [facility] Serum or plasma low density lipoprotein (LDL) cholesterol measurement (mass/volume)Ordered By: Basilio Warren on 07-26-2022 Cholesterol in LDL [Mass/Vol] 101 mg/dL 0-130 [facility] Thin prep Papanicolaou smear with manual screeningOrdered By: Basilio Warren on 07-26-2022 Thin prep Papanicolaou smear with manual screening 15 U/L 15-37 [facility] CREATININE, BLOOD (POC)on Creatinine [Mass/Vol] 1.10 mg/dL 0.7 - 1.4 mg/dL [facility] eGFR (POCT) [facility] No Panel Informationon 11-01 [facility] Basophil percentageon 2021 Bilirubin [Mass/Vol] 0.40 mg/dL 0.20-1.00 [facility] Work Phone: Comment on above: For patients on eltr ombopag therapy, use of Dimension [place] TBIL is not recommended. Cholesterol [Mass/Vol] 203 mg/dL <200 [facility] Work Phone: Comment on above: <200 mg/dL Desirable 200-240 mg/dL Borderline >240 mg/dL High Risk Protein [Mass/Vol] 8.0 g/dL 6.4-8.2 [facility] Work Phone: Triglyceride [Mass/Vol] 100 mg/dL [facility] Work Phone: Comment on above: The drugs N-Acetylcy steine and Metamizole may falsely depress this assay.Serum Triglycerides Reference Interval Normal <150 mg/dL Borderline high 150 - 199 mg/dL High 200 - 499 mg/dL Very High > or = 500 mg/dL Direct bilirubinon 2 Bilirubin.direct [Mass/Vol] 0.09 mg/dL 0.00-0.30 [facility] Work Phone: Laboratory - Chemistry and C hemistry - challengeon 07-05-2021 ALP [Catalytic activity/Vol] 80 U/L 45-117 [facility] Work Phone: ALT [Catalytic activity/Vol] 17 U/L 16-61 [facility] Work Phone: Globulin (S) [Mass/Vol] 4.0 g/dL 2.2-4.2 [facility] Work Phone: Serum or plasma albumin reynold urement (mass/volume)on 07-05-2021 Albumin [Mass/Vol] 4.0 g/dL 3.2-5.0 [facility] Work Phone: Serum or plasma cholesterol in HDL measurement (mass/volume)on 07-05-2021 Cholesterol in HDL [Mass/Vol] 51 mg/dL [facility] Work Phone: Comment on above: The drugs N-Acetylcy steine and Metamizole may falsely depress this assay. Reference Range HDL <40 mg/dL Low HDL Cholesterol HDL >or= 60 mg/dL High HDL Cholesterol Serum or plasma cholesterol in VLDL measurement (mass/volume)on 07-05-2021 Cholesterol in VLDL [Mass/Vol] 20 mg/dL 5-40 [facility] Work Phone: Serum or plasma low density lipoprotein (LDL) cholesterol measurement (mass/volume)on 07-05-2021 Cholesterol in LDL [Mass/Vol] 132 mg/dL 0-130 [facility] Work Phone: Thin prep Papanicolaou smear with manual screeningon 07-05-2021 Thin prep Papanicolaou smear with manual screening 14 U/L 15-37 [facility] Work Phone: Vital Signs Date Time Vital Sign Value Performing Clinician Facility 11-04-2024 15:38-0400 Body height 172.[address] Rebecca Dinh MD Work Phone: 3(066)387-007350 [place] [address] 11-04-2024 15:38-0400 Body mass index (BMI) [Ratio] 30.4 kg/m2 Dr. Rebecca Dinh MD Work Phone: 5(979)645-082650 [place] [address] 11-04-2024 15:38-0400 Body weight 90.[address] Rebecca Dinh MD Work Phone: 1(111)439-883050 [place] [address] 11-04-2024 15:38-0400 Diastolic blood pressure 77 mm[Hg] Dr. Rebecca Dinh MD Work Phone: 0(387)134-345050 [place] [address] 11-04-2024 15:38-0400 Heart rate 83 /min Dr. Rebecca Dinh MD Work Phone: 4(899)839-927850 [place] [address] 11-04-2024 15:38-0400 Respiratory rate 16 /min Dr. Rebecca Dinh MD Work Phone: 1(307)016-000750 [place] [address] 11-04-2024 15:38-0400 Systolic blood pressure 105 mm[Hg] Dr. Rebecca Dinh MD Work Phone: [facility] 09-22-2024 17:37-0400 Body mass index (BMI) [Ratio] 32.28 kg/m2 Nicolle Older SOCIAL WORK LECTURER.LSAT INSTRUCTOR Work Phone: [facility] 09-22-2024 17:37-0400 Body weight 90.72 kg Nicolle Older SOCIAL WORK LECTURER.LSAT INSTRUCTOR Work Phone: [facility] 09-22-2024 17:37-0400 Diastolic blood pressure 78 mm[Hg] Nicolle Older SOCIAL WORK LECTURER.LSAT INSTRUCTOR Work Phone: [facility] 09-22-2024 17:37-0400 Heart rate 68 /min Nicolle Older SOCIAL WORK LECTURER.LSAT INSTRUCTOR Work Phone: [facility] 09-22-2024 17:37-0400 Respiratory rate 16 /min Nicolle Older SOCIAL WORK LECTURER.LSAT INSTRUCTOR Work Phone: [facility] 09-22-2024 17:37-0400 SaO2% (BldA) [Mass fraction] 97 % Nicolle Older SOCIAL WORK LECTURER.LSAT INSTRUCTOR Work Phone: [facility] 09-22-2024 17:37-0400 Systolic blood pressure 122 mm[Hg] Nicolle Older SOCIAL WORK LECTURER.LSAT INSTRUCTOR Work Phone: [facility] 09-06-2024 15:22-0400 Body height 172.[address] Rebecca Dinh MD Work Phone: [facility] 09-06-2024 15:22-0400 Body mass index (BMI) [Ratio] 30.1 kg/m2 Dr. Rbeecca Dinh MD Work Phone: 5(148)082-401850 [place] [address] 09-06-2024 15:22-0400 Body weight 89.[address] Rebecca Dinh MD Work Phone: 6(632)870-227650 [place] [address] 09-06-2024 15:22-0400 Diastolic blood pressure 73 mm[Hg] Dr. Rebecca Dinh MD Work Phone: 7(201)995-813050 [place] [address] 09-06-2024 15:22-0400 Heart rate 47 /min Dr. Rebecca Dinh MD Work Phone: 7(537)351-814650 [place] [address] 09-06-2024 15:22-0400 Respiratory rate 18 /min Dr. Rebecca Dinh MD Work Phone: [facility] 09-06-2024 15:22-0400 Systolic blood pressure 130 mm[Hg] Dr. Rebecca Dinh MD Work Phone: [facility] 08-03-2024 16:08-0400 Body height 167.6 cm Almita Phillips PA-C Work Phone: [facility] 08-03-2024 16:08-0400 Body mass index (BMI) [Ratio] 31.96 kg/m2 Almita Phillips PA-C Work Phone: [facility] 08-03-2024 16:08-0400 Body temperature 98.49 [degF] Almita Phillips PA-C Work Phone: [facility] 08-03-2024 16:08-0400 Body weight 89.81 kg Almita Phillips PA-C Work Phone: [facility] 08-03-2024 16:08-0400 Diastolic blood pressure 78 mm[Hg] Almita Phillips PA-C Work Phone: [facility] 08-03-2024 16:08-0400 Heart rate 70 /min Almita Phillips PA-C Work Phone: [facility] 08-03-2024 16:08-0400 Respiratory rate 14 /min Almita Phillips PA-C Work Phone: [facility] 08-03-2024 16:08-0400 SaO2% (BldA) [Mass fraction] 96 % Almita Phillips PA-C Work Phone: [facility] 08-03-2024 16:08-0400 Systolic blood pressure 124 mm[Hg] Almita Phillips PA-C Work Phone: [facility] 07-12-2024 15:56-0400 Body height 169 cm Victor Manuel Masci DO Work Phone: [facility] 07-12-2024 15:56-0400 Body mass index (BMI) [Ratio] 31.6 kg/m2 Victor Manuel Masci DO Work Phone: [facility] 07-12-2024 15:56-0400 Body temperature 98.4 [degF] Victor Manuel Stepheni DO Work Phone: [facility] 07-12-2024 15:56-0400 Body weight 90.27 kg Victor Manuel Mitchelli DO Work Phone: [facility] 07-12-2024 15:56-0400 Diastolic blood pressure 49 mm[Hg] Victor Manuel Stepheni DO Work Phone: [facility] 07-12-2024 15:56-0400 Heart rate 57 /min Victor Manuel Mitchelli DO Work Phone: [facility] 07-12-2024 15:56-0400 SaO2% (BldA) [Mass fraction] 97 % Victor Manuel Mitchelli DO Work Phone: [facility] 07-12-2024 15:56-0400 Systolic blood pressure 97 mm[Hg] Victor Manuel Mitchelli DO Work Phone: [facility] 06-24-2024 09:30-0400 Diastolic blood pressure 52 mm[Hg] Dr. Rebecca Dinh MD Work Phone: 9(765)004-488250 [place] [address] 06-24-2024 09:30-0400 Heart rate 74 /min Dr. Rebecca Dinh MD Work Phone: 1(265)648-845750 [place] [address] 06-24-2024 09:30-0400 Systolic blood pressure 99 mm[Hg] Dr. Rebecca Dinh MD Work Phone: [facility] 06-24-2024 09:26-0400 Body temperature 98.4 [degF] Dr. Rebecca Dinh MD Work Phone: 4(403)509-202050 [place] [address] 06-24-2024 09:26-0400 Respiratory rate 18 /min Dr. Rebecca Dinh MD Work Phone: 2(779)774-234550 [place] [address] 06-24-2024 09:26-0400 SaO2% (BldA) [Mass fraction] 99 % Dr. Rebecca Dinh MD Work Phone: 7(288)948-584350 [place] [address] 06-14-2024 14:43-0400 Body mass index (BMI) [Ratio] 31.11 kg/m2 Rebecca Dinh MD Work Phone: [facility] 06-14-2024 14:43-0400 Body weight 92.81 kg Rebecca Dinh MD Work Phone: [facility] 06-14-2024 14:43-0400 Diastolic blood pressure 58 mm[Hg] Rebecca Dinh MD Work Phone: [facility] 06-14-2024 14:43-0400 Heart rate 52 /min Rebecca Dinh MD Work Phone: [facility] 06-14-2024 14:43-0400 Respiratory rate 16 /min Rebecca Dinh MD Work Phone: [facility] 06-14-2024 14:43-0400 Systolic blood pressure 102 mm[Hg] Rebecca Dinh MD Work Phone: [facility] 01-13-2024 14:17-0500 Body height 172.7 cm Rebecca Dinh MD Work Phone: [facility] 01-13-2024 14:17-0500 Body mass index (BMI) [Ratio] 29.83 kg/m2 Rebecca Dinh MD Work Phone: [facility] 01-13-2024 14:17-0500 Body weight 89 kg Rebecca Dinh MD Work Phone: [facility] 01-13-2024 14:17-0500 Diastolic blood pressure 82 mm[Hg] Rebecca Dinh MD Work Phone: [facility] 01-13-2024 14:17-0500 Heart rate 50 /min Rebecca Dinh MD Work Phone: [facility] 01-13-2024 14:17-0500 SaO2% (BldA) [Mass fraction] 96 % Rebecca Dinh MD Work Phone: [facility] 01-13-2024 14:17-0500 Systolic blood pressure 132 mm[Hg] Rebecca Dinh MD Work Phone: [facility] 01-09-2024 13:06-0400 Body mass index (BMI) [Ratio] 30.56 kg/m2 Patricia Sanders Work Phone: [facility] 01-09-2024 13:06-0400 Body temperature 97.2 [degF] Patricia Tommy Work Phone: [facility] 01-09-2024 13:06-0400 Body weight 91.17 kg Patriciakaleb Sanders Work Phone: [facility] 01-09-2024 13:06-0400 Diastolic blood pressure 54 mm[Hg] Patricia Tommy Work Phone: [facility] 01-09-2024 13:06-0400 Heart rate 52 /min Patricia Sanders Work Phone: [facility] 01-09-2024 13:06-0400 SaO2% (BldA) [Mass fraction] 96 % Patricia Sanders Work Phone: [facility] 01-09-2024 13:06-0400 Systolic blood pressure 126 mm[Hg] Patricia Sanders Work Phone: [facility] 10-09-2023 13:32-0400 Body height 172.7 cm Armida Long APRN.MAINTENANCE OPERATOR Work Phone: [facility] 10-09-2023 13:32-0400 Body mass index (BMI) [Ratio] 30.26 kg/m2 Armida Long APRN.MAINTENANCE OPERATOR Work Phone: [facility] 10-09-2023 13:32-0400 Body temperature 98.01 [degF] Armida Long APRN.MAINTENANCE OPERATOR Work Phone: [facility] 10-09-2023 13:32-0400 Body weight 90.27 kg Armida Long APRN.MAINTENANCE OPERATOR Work Phone: [facility] 10-09-2023 13:32-0400 Diastolic blood pressure 80 mm[Hg] Armida Long APRN.MAINTENANCE OPERATOR Work Phone: [facility] 10-09-2023 13:32-0400 Heart rate 47 /min Armida Long SOCIAL WORK LECTURER.MAINTENANCE OPERATOR Work Phone: [facility] 10-09-2023 13:32-0400 Respiratory rate 14 /min Armida Long SOCIAL WORK LECTURER.MAINTENANCE OPERATOR Work Phone: [facility] 10-09-2023 13:32-0400 SaO2% (BldA) [Mass fraction] 96 % Armida Long SOCIAL WORK LECTURER.MAINTENANCE OPERATOR Work Phone: [facility] 10-09-2023 13:32-0400 Systolic blood pressure 131 mm[Hg] Armida Long SOCIAL WORK LECTURER.MAINTENANCE OPERATOR Work Phone: [facility] 10-08-2023 15:05-0400 Body temperature 98.29 [degF] Treatment Wstr Work Phone: [facility] 10-08-2023 15:05-0400 Diastolic blood pressure 71 mm[Hg] Treatment Wstr Work Phone: [facility] 10-08-2023 15:05-0400 Heart rate 48 /min Treatment Wstr Work Phone: [facility] 10-08-2023 15:05-0400 Respiratory rate 18 /min Treatment Wstr Work Phone: [facility] 10-08-2023 15:05-0400 Systolic blood pressure 132 mm[Hg] Treatment Wstr Work Phone: [facility] 10-06-2023 15:23-0400 Heart rate 58 /min Treatment Wstr Work Phone: [facility] 10-06-2023 15:20-0400 Body temperature 97.9 [degF] Treatment Wstr Work Phone: [facility] 10-06-2023 15:20-0400 Diastolic blood pressure 71 mm[Hg] Treatment Wstr Work Phone: [facility] 10-06-2023 15:20-0400 Respiratory rate 16 /min Treatment Wstr Work Phone: [facility] 10-06-2023 15:20-0400 SaO2% (BldA) [Mass fraction] 93 % Treatment Wstr Work Phone: [facility] 10-06-2023 15:20-0400 Systolic blood pressure 128 mm[Hg] Treatment Wstr Work Phone: [facility] 10-01-2023 14:42-0400 Body temperature 97.81 [degF] Treatment Wstr Work Phone: [facility] 10-01-2023 14:42-0400 Diastolic blood pressure 76 mm[Hg] Treatment Wstr Work Phone: [facility] 10-01-2023 14:42-0400 Heart rate 51 /min Treatment Wstr Work Phone: [facility] Comment on above: patient states this rate is normal for h im, he follows cardiology 10-01-2023 14:42-0400 Respiratory rate 16 /min Treatment Wstr Work Phone: [facility] 10-01-2023 14:42-0400 SaO2% (BldA) [Mass fraction] 98 % Treatment Wstr Work Phone: [facility] 10-01-2023 14:42-0400 Systolic blood pressure 144 mm[Hg] Treatment Wstr Work Phone: [facility] 09-29-2023 15:01-0400 Body temperature 98.4 [degF] Treatment Wstr Work Phone: [facility] 09-29-2023 15:01-0400 Diastolic blood pressure 62 mm[Hg] Treatment Wstr Work Phone: [facility] 09-29-2023 15:01-0400 Heart rate 51 /min Treatment Wstr Work Phone: [facility] 09-29-2023 15:01-0400 Respiratory rate 18 /min Treatment Wstr Work Phone: [facility] 09-29-2023 15:01-0400 Systolic blood pressure 109 mm[Hg] Treatment Wstr Work Phone: [facility] 09-24-2023 15:20-0400 Body temperature 97.39 [degF] Treatment Wstr Work Phone: [facility] 09-24-2023 15:20-0400 Diastolic blood pressure 63 mm[Hg] Treatment Wstr Work Phone: [facility] 09-24-2023 15:20-0400 Heart rate 52 /min Treatment Wstr Work Phone: [facility] 09-24-2023 15:20-0400 Respiratory rate 16 /min Treatment Wstr Work Phone: [facility] 09-24-2023 15:20-0400 Systolic blood pressure 113 mm[Hg] Treatment Wstr Work Phone: [facility] 09-22-2023 14:17-0400 Body mass index (BMI) [Ratio] 30.71 kg/m2 Victor Manuel Masci DO Work Phone: [facility] 09-22-2023 14:17-0400 Body temperature 98.91 [degF] Victor Manuel Masci DO Work Phone: [facility] 09-22-2023 14:17-0400 Body weight 91.63 kg Victor Manuel Masci DO Work Phone: [facility] 09-22-2023 14:17-0400 Diastolic blood pressure 75 mm[Hg] Victor Manuel Masci DO Work Phone: [facility] 09-22-2023 14:17-0400 Heart rate 45 /min Victor Manuel Masci DO Work Phone: [facility] 09-22-2023 14:17-0400 SaO2% (BldA) [Mass fraction] 95 % Victor Manuel Masci DO Work Phone: [facility] 09-22-2023 14:17-0400 Systolic blood pressure 137 mm[Hg] Victor Manuel Masci DO Work Phone: [facility] 07-09-2023 17:04-0400 Body mass index (BMI) [Ratio] 28.89 kg/m2 Caroline Fischer APRN.LSAT INSTRUCTOR Work Phone: [facility] 07-09-2023 17:04-0400 Body temperature 98.01 [degF] Caroline Aaliyah SOCIAL WORK LECTURER.LSAT INSTRUCTOR Work Phone: [facility] 07-09-2023 17:04-0400 Body weight 86.18 kg Caroline Aaliyah SOCIAL WORK LECTURER.LSAT INSTRUCTOR Work Phone: [facility] 07-09-2023 17:04-0400 Diastolic blood pressure 57 mm[Hg] Caroline Aaliyah SOCIAL WORK LECTURER.LSAT INSTRUCTOR Work Phone: [facility] 07-09-2023 17:04-0400 Heart rate 51 /min Caroline Aaliyah SOCIAL WORK LECTURER.LSAT INSTRUCTOR Work Phone: [facility] 07-09-2023 17:04-0400 Respiratory rate 18 /min Caroline Aaliyah SOCIAL WORK LECTURER.LSAT INSTRUCTOR Work Phone: [facility] 07-09-2023 17:04-0400 SaO2% (BldA) [Mass fraction] 96 % Caroline Aaliyah SOCIAL WORK LECTURER.LSAT INSTRUCTOR Work Phone: [facility] 07-09-2023 17:04-0400 Systolic blood pressure 101 mm[Hg] Caroline Aaliyah SOCIAL WORK LECTURER.LSAT INSTRUCTOR Work Phone: [facility] 06-16-2023 13:27-0400 Body temperature 97.9 [degF] Patricia Sanders Work Phone: [facility] 06-16-2023 13:27-0400 Body weight 89.13 kg Patricia Sanders Work Phone: [facility] 06-16-2023 13:27-0400 Diastolic blood pressure 68 mm[Hg] Patricia Sanders Work Phone: [facility] 06-16-2023 13:27-0400 Heart rate 88 /min Patricia Sanders Work Phone: [facility] 06-16-2023 13:27-0400 SaO2% (BldA) [Mass fraction] 97 % Patricia Sanders Work Phone: [facility] 06-16-2023 13:27-0400 Systolic blood pressure 116 mm[Hg] Patricia Sanders Work Phone: [facility] 02-19-2023 11:46-0500 Body temperature 97.9 [degF] Treatment Wstr Work Phone: [facility] 02-19-2023 11:46-0500 Diastolic blood pressure 65 mm[Hg] Treatment Wstr Work Phone: [facility] 02-19-2023 11:46-0500 Heart rate 69 /min Treatment Wstr Work Phone: [facility] 02-19-2023 11:46-0500 Systolic blood pressure 102 mm[Hg] Treatment Wstr Work Phone: [facility] 02-17-2023 14:43-0500 Body temperature 98.29 [degF] Treatment Wstr Work Phone: [facility] 02-17-2023 14:43-0500 Diastolic blood pressure 76 mm[Hg] Treatment Wstr Work Phone: [facility] 02-17-2023 14:43-0500 Heart rate 60 /min Treatment Wstr Work Phone: [facility] 02-17-2023 14:43-0500 Respiratory rate 16 /min Treatment Wstr Work Phone: [facility] 02-17-2023 14:43-0500 SaO2% (BldA) [Mass fraction] 97 % Treatment Wstr Work Phone: [facility] 02-17-2023 14:43-0500 Systolic blood pressure 117 mm[Hg] Treatment Wstr Work Phone: [facility] 02-13-2023 14:52-0500 Body temperature 98.2 [degF] Treatment Wstr Work Phone: [facility] 02-13-2023 14:52-0500 Diastolic blood pressure 72 mm[Hg] Treatment Wstr Work Phone: [facility] 02-13-2023 14:52-0500 Heart rate 71 /min Treatment Wstr Work Phone: [facility] 02-13-2023 14:52-0500 Respiratory rate 18 /min Treatment Wstr Work Phone: [facility] 02-13-2023 14:52-0500 SaO2% (BldA) [Mass fraction] 98 % Treatment Wstr Work Phone: [facility] 02-13-2023 14:52-0500 Systolic blood pressure 122 mm[Hg] Treatment Wstr Work Phone: [facility] 02-11-2023 11:29-0500 Body temperature 97.5 [degF] Treatment Wstr Work Phone: [facility] 02-11-2023 11:29-0500 Diastolic blood pressure 70 mm[Hg] Treatment Wstr Work Phone: [facility] 02-11-2023 11:29-0500 Heart rate 64 /min Treatment Wstr Work Phone: [facility] 02-11-2023 11:29-0500 Systolic blood pressure 117 mm[Hg] Treatment Wstr Work Phone: [facility] 02-07-2023 11:27-0500 Body temperature 97.59 [degF] Treatment Wstr Work Phone: [facility] 02-07-2023 11:27-0500 Diastolic blood pressure 64 mm[Hg] Treatment Wstr Work Phone: [facility] 02-07-2023 11:27-0500 Heart rate 66 /min Treatment Wstr Work Phone: [facility] 02-07-2023 11:27-0500 Respiratory rate 16 /min Treatment Wstr Work Phone: [facility] 02-07-2023 11:27-0500 SaO2% (BldA) [Mass fraction] 100 % Treatment Wstr Work Phone: [facility] 02-07-2023 11:27-0500 Systolic blood pressure 94 mm[Hg] Treatment Wstr Work Phone: [facility] 01-23-2023 11:59-0500 Body height 172.7 cm Silva Denbow PA-C Work Phone: [facility] 01-23-2023 11:59-0500 Body weight 87.54 kg Silva Denbow PA-C Work Phone: [facility] 01-23-2023 11:59-0500 Diastolic blood pressure 64 mm[Hg] Silva Denbow PA-C Work Phone: [facility] 01-23-2023 11:59-0500 Heart rate 91 /min Silva Denbow PA-C Work Phone: [facility] 01-23-2023 11:59-0500 Respiratory rate 12 /min Silva Denbow PA-C Work Phone: [facility] 01-23-2023 11:59-0500 SaO2% (BldA) [Mass fraction] 97 % Silva Denbow PA-C Work Phone: [facility] 01-23-2023 11:59-0500 Systolic blood pressure 120 mm[Hg] Silva Denbow PA-C Work Phone: [facility] 01-08-2023 12:33-0400 Body height 172.[address] Rebecca Dinh Work Phone: 0(226)940-230058 [place] [address] 01-08-2023 12:33-0400 Body mass index (BMI) [Ratio] 28.3 kg/m2 Dr. Rebecca Dinh Work Phone: 5(988)936-862250 [place] [address] 01-08-2023 12:33-0400 Body temperature 97.4 [degF] Dr. Rebecca Dinh Work Phone: 3(897)185-048950 [place] [address] 01-08-2023 12:33-0400 Body weight 84.[address] Rebecca Dinh Work Phone: 8(790)428-996450 [place] [address] 01-08-2023 12:33-0400 Diastolic blood pressure 50 mm[Hg] Dr. Rebecca Dinh Work Phone: 5(643)424-618758 [place] [address] 01-08-2023 12:33-0400 Heart rate 67 /min Dr. Rebecca Dinh Work Phone: 3(894)674-865658 [place] [address] 01-08-2023 12:33-0400 Respiratory rate 16 /min Dr. Rebecca Dinh Work Phone: 4(740)084-606458 [place] [address] 01-08-2023 12:33-0400 SaO2% (BldA) [Mass fraction] 97 % Dr. Rebecca Dinh Work Phone: 1(589)359-664958 [place] [address] 01-08-2023 12:33-0400 Systolic blood pressure 98 mm[Hg] Dr. Rebecca Dinh Work Phone: 8(346)275-392358 [place] [address] 01-07-2023 13:35-0400 Body temperature 97 [degF] Dr. Rebecca Dinh Work Phone: 3(201)182-731658 [place] [address] 01-07-2023 13:35-0400 Diastolic blood pressure 64 mm[Hg] Dr. Rebecca Dinh Work Phone: 6(810)573-350858 [place] [address] 01-07-2023 13:35-0400 Heart rate 50 /min Dr. Rebecca Dinh Work Phone: 9(219)563-328658 [place] [address] 01-07-2023 13:35-0400 Respiratory rate 16 /min Dr. Rebecca Dinh Work Phone: 8(144)911-075058 [place] [address] 01-07-2023 13:35-0400 Systolic blood pressure 121 mm[Hg] Dr. Rebecca Dinh Work Phone: 3(595)856-664858 [place] [address] 01-07-2023 12:34-0400 Body height 172.[address] Rebecca Dinh Work Phone: 3(296)056-549658 [place] [address] 01-07-2023 12:34-0400 Body mass index (BMI) [Ratio] 28.3 kg/m2 Dr. Rebecca Dinh Work Phone: 2(722)868-756658 [place] [address] 01-07-2023 12:34-0400 Body weight 84.[address] Rebecca Dinh Work Phone: 3(200)126-639558 [place] [address] 01-07-2023 12:34-0400 SaO2% (BldA) [Mass fraction] 100 % Dr. Rebecca Dinh Work Phone: 4(141)622-150358 [place] [address] 01-06-2023 13:45-0400 Body temperature 97.1 [degF] Dr. Rebecca Dinh Work Phone: 5(170)551-544358 [place] [address] 01-06-2023 13:45-0400 Diastolic blood pressure 68 mm[Hg] Dr. Rebecca Dinh Work Phone: 4(749)285-413958 [place] [address] 01-06-2023 13:45-0400 Heart rate 54 /min Dr. Rebecca Dinh Work Phone: 1(697)983-527558 [place] [address] 01-06-2023 13:45-0400 Respiratory rate 16 /min Dr. Rebecca Dihn Work Phone: 3(861)855-910358 [place] [address] 01-06-2023 13:45-0400 Systolic blood pressure 122 mm[Hg] Dr. Rebecca Dinh Work Phone: 2(027)749-326958 [place] [address] 01-06-2023 12:51-0400 Body height 172.[address] Rebecca Dinh Work Phone: 7(221)636-631758 [place] [address] 01-06-2023 12:51-0400 Body mass index (BMI) [Ratio] 28.3 kg/m2 Dr. Rebecca Dinh Work Phone: 7(569)657-137658 [place] [address] 01-06-2023 12:51-0400 Body weight 84.[address] Rebecca Dinh Work Phone: 1(346)172-414958 [place] [address] 01-06-2023 12:51-0400 SaO2% (BldA) [Mass fraction] 100 % Dr. Rebecca Dinh Work Phone: 2(698)586-702058 [place] [address] 01-05-2023 10:45-0400 Body temperature 98.3 [degF] Dr. Rebecca Dinh Work Phone: 2(122)480-336258 [place] [address] 01-05-2023 10:45-0400 Diastolic blood pressure 75 mm[Hg] Dr. Rebecca Dinh Work Phone: 4(498)728-602758 [place] [address] 01-05-2023 10:45-0400 Heart rate 70 /min Dr. Rebecca Dinh Work Phone: 2(750)891-286558 [place] [address] 01-05-2023 10:45-0400 Respiratory rate 16 /min Dr. Rebecca Dinh Work Phone: 5(933)977-727358 [place] [address] 01-05-2023 10:45-0400 SaO2% (BldA) [Mass fraction] 97 % Dr. Rebecca Dinh Work Phone: 4(003)946-572158 [place] [address] 01-05-2023 10:45-0400 Systolic blood pressure 125 mm[Hg] Dr. Rebecca Dinh Work Phone: 7(424)008-970258 [place] [address] 01-03-2023 13:55-0400 Body temperature 97.5 [degF] Dr. Rebecca Dinh Work Phone: 6(684)529-065258 [place] [address] 01-03-2023 13:55-0400 Diastolic blood pressure 46 mm[Hg] Dr. Rebecca Dinh Work Phone: 9(552)876-965858 [place] [address] 01-03-2023 13:55-0400 Heart rate 56 /min Dr. Rebecca Dinh Work Phone: 8(719)501-596558 [place] [address] 01-03-2023 13:55-0400 Respiratory rate 16 /min Dr. Rebecca Dinh Work Phone: 9(676)686-961458 [address] [place] [address] 01-03-2023 13:55-0400 SaO2% (BldA) [Mass fraction] 98 % Dr. Rebecca Dinh Work Phone: 1(768)986-235158 [place] [address] 01-03-2023 13:55-0400 Systolic blood pressure 113 mm[Hg] Dr. Rebecca Dinh Work Phone: 0(454)742-481458 [place] [address] 01-03-2023 12:58-0400 Body height 172.[address] Rebecca Dinh Work Phone: 6(390)251-953458 [place] [address] 01-03-2023 12:58-0400 Body mass index (BMI) [Ratio] 28.3 kg/m2 Dr. Rebecca Dinh Work Phone: 5(859)869-532458 [place] [address] 01-03-2023 12:58-0400 Body weight 84.[address] Rebecca Dinh Work Phone: 5(376)298-713358 [place] [address] 01-02-2023 14:00-0400 Body temperature 97.7 [degF] Dr. Rebecca Dinh Work Phone: 6(512)959-671158 [place] [address] 01-02-2023 14:00-0400 Diastolic blood pressure 61 mm[Hg] Dr. Rebecca Dinh Work Phone: 5(672)912-897058 [place] [address] 01-02-2023 14:00-0400 Heart rate 57 /min Dr. Rebecca Dinh Work Phone: 0(027)063-955258 [place] [address] 01-02-2023 14:00-0400 Respiratory rate 16 /min Dr. Rebecca Dihn Work Phone: 1(284)151-114858 [place] [address] 01-02-2023 14:00-0400 Systolic blood pressure 116 mm[Hg] Dr. Rebecca Dinh Work Phone: 5(062)290-789658 [place] [address] 01-02-2023 13:02-0400 Body height 172.[address] Rebecca Dinh Work Phone: 5(417)881-178858 [place] [address] 01-02-2023 13:02-0400 Body mass index (BMI) [Ratio] 28.3 kg/m2 Dr. Rebecca Dinh Work Phone: 5(767)437-060958 [place] [address] 01-02-2023 13:02-0400 Body weight 84.[address] Rebecca Dinh Work Phone: 4(623)540-689058 [place] [address] 01-02-2023 13:02-0400 SaO2% (BldA) [Mass fraction] 97 % Dr. Rebecca Dinh Work Phone: 9(062)169-614058 [place] [address] 01-01-2023 13:46-0400 Diastolic blood pressure 68 mm[Hg] Dr. Rebecca Dinh Work Phone: 7(495)528-352658 [place] [address] 01-01-2023 13:46-0400 Heart rate 73 /min Dr. Rebecca Dinh Work Phone: 6(771)105-127958 [place] [address] 01-01-2023 13:46-0400 Respiratory rate 16 /min Dr. Rebecca Dinh Work Phone: 3(692)681-971258 [place] [address] 01-01-2023 13:46-0400 Systolic blood pressure 122 mm[Hg] Dr. Rebecca Dinh Work Phone: 9(260)116-441658 [place] [address] 01-01-2023 12:37-0400 Body height 172.[address] Rebecca Dinh Work Phone: 2(664)197-031458 [place] [address] 01-01-2023 12:37-0400 Body temperature 96.6 [degF] Dr. Rebecca Dinh Work Phone: 5(096)469-387458 [place] [address] 01-01-2023 12:37-0400 SaO2% (BldA) [Mass fraction] 97 % Dr. Rebecca Dinh Work Phone: 5(927)206-625158 [place] [address] 12-31-2022 13:33-0400 Body temperature 97.6 [degF] Dr. Rebecca Dinh Work Phone: 3(423)993-538658 [place] [address] 12-31-2022 13:33-0400 Diastolic blood pressure 56 mm[Hg] Dr. Rebecca Dinh Work Phone: 1(478)745-678258 [place] [address] 12-31-2022 13:33-0400 Heart rate 74 /min Dr. Rebecca Dinh Work Phone: 7(206)351-135058 [place] [address] 12-31-2022 13:33-0400 Respiratory rate 16 /min Dr. Rebecca Dinh Work Phone: 6(126)729-306758 [place] [address] 12-31-2022 13:33-0400 SaO2% (BldA) [Mass fraction] 96 % Dr. Rebecca Dinh Work Phone: 0(535)078-701058 [place] [address] 12-31-2022 13:33-0400 Systolic blood pressure 99 mm[Hg] Dr. Rebecca Dinh Work Phone: 3(241)674-721058 [place] [address] 12-31-2022 12:33-0400 Body height 172.[address] Rebecca Dinh Work Phone: 2(818)412-381158 [place] [address] 12-31-2022 12:33-0400 Body mass index (BMI) [Ratio] 24 kg/m2 Dr. Rebecca Dinh Work Phone: 5(998)474-089558 [place] [address] 12-31-2022 12:33-0400 Body weight 71.[address] Rebecca Dinh Work Phone: 2(582)571-424658 [place] [address] 12-30-2022 13:28-0400 Body temperature 97.7 [degF] Dr. Rebecca Dinh Work Phone: 2(994)616-353258 [place] [address] 12-30-2022 13:28-0400 Diastolic blood pressure 51 mm[Hg] Dr. Rebecca Dinh Work Phone: 6(782)532-472358 [place] [address] 12-30-2022 13:28-0400 Heart rate 66 /min Dr. Rebecca Dinh Work Phone: 6(004)979-978158 [place] [address] 12-30-2022 13:28-0400 Respiratory rate 16 /min Dr. Rebecca Dinh Work Phone: 1(958)073-221858 [place] [address] 12-30-2022 13:28-0400 Systolic blood pressure 99 mm[Hg] Dr. Rebecca Dinh Work Phone: 2(601)726-009358 [place] [address] 12-30-2022 12:33-0400 Body height 172.[address] Rebecca Dinh Work Phone: 0(414)296-162658 [place] [address] 12-30-2022 12:33-0400 Body mass index (BMI) [Ratio] 28.3 kg/m2 Dr. Rebecca Dinh Work Phone: 2(148)830-803858 [place] [address] 12-30-2022 12:33-0400 Body weight 84.[address] Rebecca Dinh Work Phone: 9(374)906-817358 [place] [address] 12-30-2022 12:33-0400 SaO2% (BldA) [Mass fraction] 98 % Dr. Rebecca Dinh Work Phone: 1(509)623-559558 [place] [address] 12-27-2022 13:50-0400 Diastolic blood pressure 65 mm[Hg] Dr. Rebecca Dinh Work Phone: 9(055)748-922658 [place] [address] 12-27-2022 13:50-0400 Heart rate 65 /min Dr. Rebecca Dinh Work Phone: 5(154)184-745158 [place] [address] 12-27-2022 13:50-0400 Respiratory rate 16 /min Dr. Rebecca Dinh Work Phone: 7(882)177-471558 [place] [address] 12-27-2022 13:50-0400 SaO2% (BldA) [Mass fraction] 97 % Dr. Rebecca Dinh Work Phone: 1(094)623-097958 [place] [address] 12-27-2022 13:50-0400 Systolic blood pressure 115 mm[Hg] Dr. Rebecca Dinh Work Phone: 7(798)483-378658 [place] [address] 12-27-2022 12:40-0400 Body height 172.[address] Rebecca Dinh Work Phone: 2(580)257-704858 [place] [address] 12-27-2022 12:40-0400 Body mass index (BMI) [Ratio] 28.3 kg/m2 Dr. Rebecca Dinh Work Phone: 7(806)923-099858 [place] [address] 12-27-2022 12:40-0400 Body temperature 98 [degF] Dr. Rebecca Dinh Work Phone: 5(711)704-417058 [place] [address] 12-27-2022 12:40-0400 Body weight 84.[address] Rebecca Dinh Work Phone: 4(755)113-837458 [place] [address] 12-26-2022 13:41-0400 Diastolic blood pressure 65 mm[Hg] Dr. Rebecca Dinh Work Phone: 5(066)080-584058 [place] [address] 12-26-2022 13:41-0400 Heart rate 68 /min Dr. Rebecca Dinh Work Phone: 1(093)928-682258 [place] [address] 12-26-2022 13:41-0400 Systolic blood pressure 115 mm[Hg] Dr. Rebecca Dinh Work Phone: 6(751)306-947258 [place] [address] 12-26-2022 12:36-0400 Body height 172.[address] Rebecca Dinh Work Phone: 2(723)632-649858 [place] [address] 12-26-2022 12:36-0400 Body mass index (BMI) [Ratio] 28.3 kg/m2 Dr. Rebecca Dinh Work Phone: 2(264)312-614558 [place] [address] 12-26-2022 12:36-0400 Body temperature 97.6 [degF] Dr. Rebecca Dinh Work Phone: 5(691)379-546358 [place] [address] 12-26-2022 12:36-0400 Body weight 84.[address] Rebecca Dinh Work Phone: 1(242)701-421658 [place] [address] 12-26-2022 12:36-0400 Respiratory rate 16 /min Dr. Rebecca Dinh Work Phone: 8(832)360-169858 [place] [address] 12-26-2022 12:36-0400 SaO2% (BldA) [Mass fraction] 99 % Dr. Rebecca Dinh Work Phone: 7(553)646-398558 [place] [address] 12-25-2022 13:47-0400 Diastolic blood pressure 56 mm[Hg] Dr. Rebecca Dinh Work Phone: 9(766)564-308758 [place] [address] 12-25-2022 13:47-0400 Heart rate 61 /min Dr. Rebecca Dinh Work Phone: 1(700)620-341458 [place] [address] 12-25-2022 13:47-0400 Respiratory rate 16 /min Dr. Rebecca Dinh Work Phone: 1(969)712-140258 [place] [address] 12-25-2022 13:47-0400 Systolic blood pressure 111 mm[Hg] Dr. Rebecca Dinh Work Phone: 5(577)416-656258 [place] [address] 12-25-2022 12:44-0400 Body height 172.[address] Rebecca Dinh Work Phone: 0(222)300-102058 [place] [address] 12-25-2022 12:44-0400 Body temperature 97.7 [degF] Dr. Rebecca Dinh Work Phone: 7(730)493-957158 [place] [address] 12-25-2022 12:44-0400 SaO2% (BldA) [Mass fraction] 95 % Dr. Rebecca Dinh Work Phone: 4(237)889-293958 [place] [address] 12-24-2022 12:36-0400 Body height 172.[address] Rebecca Dinh Work Phone: 1(808)439-792258 [place] [address] 12-24-2022 12:36-0400 Body mass index (BMI) [Ratio] 28.3 kg/m2 Dr. Rebecca Dinh Work Phone: 3(258)849-741558 [place] [address] 12-24-2022 12:36-0400 Body temperature 97.8 [degF] Dr. Rebecca Dinh Work Phone: 7(594)457-010658 [place] [address] 12-24-2022 12:36-0400 Body weight 84.[address] Rebecca Dinh Work Phone: 0(953)732-250158 [place] [address] 12-24-2022 12:36-0400 Diastolic blood pressure 90 mm[Hg] Dr. Rebecca Dinh Work Phone: 4(888)836-182258 [place] [address] 12-24-2022 12:36-0400 Heart rate 69 /min Dr. Rebecca Dinh Work Phone: 2(621)291-144758 [place] [address] 12-24-2022 12:36-0400 Respiratory rate 16 /min Dr. Rebecca Dinh Work Phone: 1(667)477-214858 [place] [address] 12-24-2022 12:36-0400 SaO2% (BldA) [Mass fraction] 96 % Dr. Rebecca Dinh Work Phone: 3(873)572-248958 [place] [address] 12-24-2022 12:36-0400 Systolic blood pressure 111 mm[Hg] Dr. Rebecca Dinh Work Phone: 3(667)296-233458 [place] [address] 12-23-2022 13:31-0400 Body temperature 97.5 [degF] Dr. Rebecca Dinh Work Phone: 5(525)688-136258 [place] [address] 12-23-2022 13:31-0400 Diastolic blood pressure 78 mm[Hg] Dr. Rebecca Dinh Work Phone: 2(517)119-672458 [place] [address] 12-23-2022 13:31-0400 Heart rate 65 /min Dr. Rebecca Dinh Work Phone: 0(439)663-078258 [place] [address] 12-23-2022 13:31-0400 Respiratory rate 16 /min Dr. Rebecca Dinh Work Phone: 4(704)228-563958 [place] [address] 12-23-2022 13:31-0400 SaO2% (BldA) [Mass fraction] 99 % Dr. Rebecca Dinh Work Phone: 0(967)554-154158 [place] [address] 12-23-2022 13:31-0400 Systolic blood pressure 118 mm[Hg] Dr. Rebecca Dinh Work Phone: 0(632)801-591158 [place] [address] 12-23-2022 12:38-0400 Body height 172.[address] Rebecca Dinh Work Phone: 2(964)016-044758 [place] [address] 12-23-2022 12:38-0400 Body mass index (BMI) [Ratio] 28.3 kg/m2 Dr. Rebecca Dinh Work Phone: 2(559)743-751558 [place] [address] 12-23-2022 12:38-0400 Body weight 84.[address] Rebecca Dinh Work Phone: 1(524)859-714558 [place] [address] 12-22-2022 12:42-0400 Body height 172.[address] Rebecca Dinh Work Phone: 3(796)809-886958 [place] [address] 12-22-2022 12:42-0400 Body temperature 98.2 [degF] Dr. Rebecca Dinh Work Phone: 6(533)401-456258 [place] [address] 12-22-2022 12:42-0400 Diastolic blood pressure 70 mm[Hg] Dr. Rebecca Dinh Work Phone: 5(340)878-785358 [place] [address] 12-22-2022 12:42-0400 Heart rate 65 /min Dr. Rebecca Dinh Work Phone: 1(374)700-279058 [place] [address] 12-22-2022 12:42-0400 Respiratory rate 18 /min Dr. Rebecca Dinh Work Phone: 2(309)093-767858 [place] [address] 12-22-2022 12:42-0400 SaO2% (BldA) [Mass fraction] 99 % Dr. Rebecca Dinh Work Phone: 5(988)934-967758 [place] [address] 12-22-2022 12:42-0400 Systolic blood pressure 106 mm[Hg] Dr. Rebecca Dinh Work Phone: 2(035)936-479758 [place] [address] 12-21-2022 13:11-0400 Body height 172.[address] Rebecca Dinh Work Phone: 7(469)643-376158 [place] [address] 12-21-2022 13:11-0400 Body mass index (BMI) [Ratio] 28.3 kg/m2 Dr. Rebecca Dinh Work Phone: 6(904)699-316058 [place] [address] 12-21-2022 13:11-0400 Body temperature 98.4 [degF] Dr. Rebecca Dinh Work Phone: 4(676)180-994358 [place] [address] 12-21-2022 13:11-0400 Body weight 84.[address] Rebecca Dinh Work Phone: 8(442)213-378058 [place] [address] 12-21-2022 13:11-0400 Diastolic blood pressure 70 mm[Hg] Dr. Rebecca Dinh Work Phone: 3(524)148-869458 [place] [address] 12-21-2022 13:11-0400 Heart rate 66 /min Dr. Rebecca Dinh Work Phone: 5(038)340-499858 [place] [address] 12-21-2022 13:11-0400 Respiratory rate 18 /min Dr. Rebecca Dinh Work Phone: 1(249)674-493958 [place] [address] 12-21-2022 13:11-0400 SaO2% (BldA) [Mass fraction] 100 % Dr. Rebecca Dinh Work Phone: 7(824)146-986058 [place] [address] 12-21-2022 13:11-0400 Systolic blood pressure 98 mm[Hg] Dr. Rebecca Dinh Work Phone: 2(896)743-195758 [place] [address] 12-20-2022 13:59-0400 Body temperature 96.9 [degF] Dr. Rebecca Dinh Work Phone: 7(786)667-462658 [place] [address] 12-20-2022 13:59-0400 Diastolic blood pressure 71 mm[Hg] Dr. Rebecca Dinh Work Phone: 9(249)552-961858 [place] [address] 12-20-2022 13:59-0400 Heart rate 63 /min Dr. Rebecca Dinh Work Phone: 7(415)008-339258 [place] [address] 12-20-2022 13:59-0400 Respiratory rate 16 /min Dr. Rebecca Dinh Work Phone: 6(397)566-723058 [place] [address] 12-20-2022 13:59-0400 SaO2% (BldA) [Mass fraction] 96 % Dr. Rebecca Dinh Work Phone: 5(242)110-360858 [place] [address] 12-20-2022 13:59-0400 Systolic blood pressure 115 mm[Hg] Dr. Rebecca Dinh Work Phone: 9(311)403-519158 [place] [address] 12-20-2022 12:57-0400 Body height 172.[address] Rebecca Dinh Work Phone: 9(459)358-288558 [place] [address] 12-20-2022 12:57-0400 Body mass index (BMI) [Ratio] 28.3 kg/m2 Dr. Rebecca Dinh Work Phone: 4(412)195-368758 [place] [address] 12-20-2022 12:57-0400 Body weight 84.[address] Rebecca Dinh Work Phone: 4(483)678-779658 [place] [address] 12-19-2022 13:27-0400 Body temperature 97.3 [degF] Dr. Rebecca Dinh Work Phone: 5(056)617-173658 [place] [address] 12-19-2022 13:27-0400 Diastolic blood pressure 73 mm[Hg] Dr. Rebecca Dinh Work Phone: 2(641)908-449958 [place] [address] 12-19-2022 13:27-0400 Heart rate 66 /min Dr. Rebecca Dinh Work Phone: 3(440)354-574158 [place] [address] 12-19-2022 13:27-0400 Respiratory rate 16 /min Dr. Rebecca Dinh Work Phone: 7(799)326-189958 [place] [address] 12-19-2022 13:27-0400 SaO2% (BldA) [Mass fraction] 100 % Dr. Rebecca Dinh Work Phone: 1(635)077-081958 [place] [address] 12-19-2022 13:27-0400 Systolic blood pressure 120 mm[Hg] Dr. Rebecca Dinh Work Phone: 4(282)813-543158 [place] [address] 12-19-2022 12:29-0400 Body height 172.[address] Rebecca Dinh Work Phone: 3(745)685-657458 [place] [address] 12-19-2022 12:29-0400 Body mass index (BMI) [Ratio] 28.3 kg/m2 Dr. Rebecca Dinh Work Phone: 0(162)898-886558 [place] [address] 12-19-2022 12:29-0400 Body weight 84.[address] Rebecca Dinh Work Phone: 8(302)892-346458 [place] [address] 12-18-2022 13:29-0400 Body temperature 97.4 [degF] Dr. Rebecca Dinh Work Phone: 0(809)719-459658 [place] [address] 12-18-2022 13:29-0400 Diastolic blood pressure 66 mm[Hg] Dr. Rebecca Dinh Work Phone: 0(402)952-561458 [place] [address] 12-18-2022 13:29-0400 Heart rate 66 /min Dr. Rebecca Dinh Work Phone: 2(829)416-842058 [place] [address] 12-18-2022 13:29-0400 Respiratory rate 16 /min Dr. Rebecca Dinh Work Phone: 4(139)516-827058 [place] [address] 12-18-2022 13:29-0400 SaO2% (BldA) [Mass fraction] 98 % Dr. Rebecca Dinh Work Phone: 5(799)395-380258 [place] [address] 12-18-2022 13:29-0400 Systolic blood pressure 105 mm[Hg] Dr. Rebecca Dinh Work Phone: 0(892)786-755658 [place] [address] 12-18-2022 12:23-0400 Body height 172.[address] Rebecca Dinh Work Phone: 0(521)186-515058 [place] [address] 12-17-2022 13:45-0400 Diastolic blood pressure 65 mm[Hg] Dr. Rebecca Dinh Work Phone: 3(500)897-324258 [place] [address] 12-17-2022 13:45-0400 Heart rate 72 /min Dr. Rebecca Dinh Work Phone: 0(461)261-113558 [place] [address] 12-17-2022 13:45-0400 Systolic blood pressure 118 mm[Hg] Dr. Rebecca Dinh Work Phone: 5(987)710-743858 [place] [address] 12-17-2022 12:55-0400 Body temperature 97.6 [degF] Dr. Rebecca Dinh Work Phone: 2(083)331-506958 [place] [address] 12-17-2022 12:55-0400 Respiratory rate 16 /min Dr. Rebecca Dinh Work Phone: 8(154)422-621358 [place] [address] 12-17-2022 12:55-0400 SaO2% (BldA) [Mass fraction] 98 % Dr. Rebecca Dinh Work Phone: 4(884)225-644558 [place] [address] 12-16-2022 13:43-0400 Diastolic blood pressure 67 mm[Hg] Dr. Rebecca Dinh Work Phone: 3(498)898-556358 [place] [address] 12-16-2022 13:43-0400 Heart rate 67 /min Dr. Rebecca Dinh Work Phone: 7(422)711-928458 [place] [address] 12-16-2022 13:43-0400 Respiratory rate 16 /min Dr. Rebecca Dinh Work Phone: 0(272)545-138358 [place] [address] 12-16-2022 13:43-0400 Systolic blood pressure 116 mm[Hg] Dr. Rebecca Dinh Work Phone: 5(670)666-847558 [place] [address] 12-16-2022 12:36-0400 Body temperature 97.1 [degF] Dr. Rebecca Dinh Work Phone: 6(983)047-579458 [place] [address] 12-16-2022 12:36-0400 SaO2% (BldA) [Mass fraction] 97 % Dr. Rebecca Dinh Work Phone: 0(558)186-180058 [place] [address] 12-15-2022 12:50-0400 Body temperature 98 [degF] Dr. Rebecca Dinh Work Phone: 1(517)222-611258 [place] [address] 12-15-2022 12:50-0400 Diastolic blood pressure 77 mm[Hg] Dr. Rebecca Dinh Work Phone: 0(851)120-798158 [place] [address] 12-15-2022 12:50-0400 Heart rate 60 /min Dr. Rebecca Dinh Work Phone: 3(105)180-672758 [place] [address] 12-15-2022 12:50-0400 Respiratory rate 16 /min Dr. Rebecca Dinh Work Phone: 5(655)752-050358 [place] [address] 12-15-2022 12:50-0400 SaO2% (BldA) [Mass fraction] 99 % Dr. Rebecca Dinh Work Phone: 0(068)932-375758 [place] [address] 12-15-2022 12:50-0400 Systolic blood pressure 100 mm[Hg] Dr. Rebecca Dinh Work Phone: 4(505)424-989458 [place] [address] 12-14-2022 12:35-0400 Body temperature 97.8 [degF] Dr. Rebecca Dinh Work Phone: 1(014)506-132458 [place] [address] 12-14-2022 12:35-0400 Diastolic blood pressure 70 mm[Hg] Dr. Rebecca Dinh Work Phone: 7(009)551-412858 [place] [address] 12-14-2022 12:35-0400 Heart rate 73 /min Dr. Rebecca Dinh Work Phone: 3(847)382-263358 [place] [address] 12-14-2022 12:35-0400 Respiratory rate 18 /min Dr. Rebecca Dinh Work Phone: 3(413)009-924858 [place] [address] 12-14-2022 12:35-0400 SaO2% (BldA) [Mass fraction] 100 % Dr. Rebecca Dinh Work Phone: 2(543)563-627158 [place] [address] 12-14-2022 12:35-0400 Systolic blood pressure 119 mm[Hg] Dr. Rebecca Dinh Work Phone: 6(674)748-560658 [place] [address] 12-13-2022 14:08-0400 Body temperature 97 [degF] Dr. Rebecca Dinh Work Phone: 4(541)903-176258 [place] [address] 12-13-2022 14:08-0400 Diastolic blood pressure 63 mm[Hg] Dr. Rebecca Dinh Work Phone: 5(503)549-984558 [place] [address] 12-13-2022 14:08-0400 Heart rate 63 /min Dr. Rebecca Dinh Work Phone: 9(956)822-756958 [place] [address] 12-13-2022 14:08-0400 Respiratory rate 16 /min Dr. Rebecca Dinh Work Phone: 3(520)922-268058 [place] [address] 12-13-2022 14:08-0400 SaO2% (BldA) [Mass fraction] 98 % Dr. Rebecca Dinh Work Phone: 2(383)186-392858 [place] [address] 12-13-2022 14:08-0400 Systolic blood pressure 109 mm[Hg] Dr. Rebecca Dinh Work Phone: 9(530)758-398958 [place] [address] 12-13-2022 12:30-0400 Body mass index (BMI) [Ratio] 28.3 kg/m2 Dr. Rebecca Dinh Work Phone: 3(347)431-012058 [place] [address] 12-13-2022 12:30-0400 Body weight 84.[address] Rebecca Dinh Work Phone: 6(842)403-517558 [place] [address] 12-12-2022 13:52-0400 Body temperature 97.6 [degF] Dr. Rebecca Dinh Work Phone: 4(991)767-499858 [place] [address] 12-12-2022 13:52-0400 Diastolic blood pressure 67 mm[Hg] Dr. Rebecca Dinh Work Phone: 9(913)824-906858 [place] [address] 12-12-2022 13:52-0400 Heart rate 60 /min Dr. Rebecca Dinh Work Phone: 8(000)401-996058 [place] [address] 12-12-2022 13:52-0400 Respiratory rate 16 /min Dr. Rebecca Dinh Work Phone: 1(041)107-317258 [place] [address] 12-12-2022 13:52-0400 SaO2% (BldA) [Mass fraction] 98 % Dr. Rebecca Dinh Work Phone: 7(054)335-235958 [place] [address] 12-12-2022 13:52-0400 Systolic blood pressure 117 mm[Hg] Dr. Rebecca Dinh Work Phone: 7(406)113-516358 [place] [address] 12-12-2022 13:05-0400 Body mass index (BMI) [Ratio] 28.3 kg/m2 Dr. Rebecca Dinh Work Phone: 7(473)216-365858 [place] [address] 12-12-2022 13:05-0400 Body weight 84.[address] Rebecca Dinh Work Phone: [facility] 12-11-2022 14:27-0400 Body height 172.7 cm Silva Denbow PA-C Work Phone: [facility] 12-11-2022 14:27-0400 Body temperature 97.9 [degF] Silva Denbow PA-C Work Phone: [facility] 12-11-2022 14:27-0400 Body weight 87.54 kg Silva Denbow PA-C Work Phone: [facility] 12-11-2022 14:27-0400 Diastolic blood pressure 60 mm[Hg] Silva Denbow PA-C Work Phone: [facility] 12-11-2022 14:27-0400 Heart rate 99 /min Silva Denbow PA-C Work Phone: [facility] 12-11-2022 14:27-0400 Respiratory rate 12 /min Silva Denbow PA-C Work Phone: [facility] 12-11-2022 14:27-0400 SaO2% (BldA) [Mass fraction] 97 % Silva Denbow PA-C Work Phone: [facility] 12-11-2022 14:27-0400 Systolic blood pressure 126 mm[Hg] Silva Denbow PA-C Work Phone: [facility] 12-11-2022 14:02-0400 Body temperature 97.7 [degF] Dr. Rebecca Dinh Work Phone: [facility] 12-11-2022 14:02-0400 Diastolic blood pressure 68 mm[Hg] Dr. Rebecca Dinh Work Phone: [facility] 12-11-2022 14:02-0400 Heart rate 78 /min Dr. Rebecca Dinh Work Phone: [facility] 12-11-2022 14:02-0400 Respiratory rate 16 /min Dr. Rebecca Dinh Work Phone: 2(531)463-390458 [place] [address] 12-11-2022 14:02-0400 SaO2% (BldA) [Mass fraction] 96 % Dr. Rebecca Dinh Work Phone: 8(516)180-244858 [place] [address] 12-11-2022 14:02-0400 Systolic blood pressure 128 mm[Hg] Dr. Rebecca Dinh Work Phone: 6(774)230-142458 [place] [address] 12-11-2022 12:32-0400 Body height 172.[address] Rebecca Dinh Work Phone: 6(256)776-897958 [place] [address] 12-10-2022 13:31-0400 Body temperature 96.3 [degF] Dr. Rebecca Dinh Work Phone: 9(654)901-785358 [place] [address] 12-10-2022 13:31-0400 Diastolic blood pressure 62 mm[Hg] Dr. Rebecca Dinh Work Phone: 2(608)510-538258 [place] [address] 12-10-2022 13:31-0400 Heart rate 64 /min Dr. Rebecca Dinh Work Phone: 9(449)548-921758 [place] [address] 12-10-2022 13:31-0400 Respiratory rate 16 /min Dr. Rebecca Dinh Work Phone: 7(189)691-655858 [place] [address] 12-10-2022 13:31-0400 SaO2% (BldA) [Mass fraction] 96 % Dr. Rebecca Dinh Work Phone: 6(142)845-591858 [place] [address] 12-10-2022 13:31-0400 Systolic blood pressure 114 mm[Hg] Dr. Rebecca Dinh Work Phone: 5(114)907-762058 [place] [address] 12-10-2022 12:37-0400 Body height 172.[address] Rebecca Dinh Work Phone: 3(473)157-741758 [place] [address] 12-09-2022 13:39-0400 Body temperature 97.9 [degF] Dr. Rebecca Dinh Work Phone: 3(523)160-702058 [place] [address] 12-09-2022 13:39-0400 Diastolic blood pressure 62 mm[Hg] Dr. Rebecca Dinh Work Phone: 9(350)612-684658 [place] [address] 12-09-2022 13:39-0400 Heart rate 77 /min Dr. Rebecca Dinh Work Phone: 7(522)798-148558 [place] [address] 12-09-2022 13:39-0400 Respiratory rate 16 /min Dr. Rebecca Dinh Work Phone: 8(046)005-066258 [place] [address] 12-09-2022 13:39-0400 SaO2% (BldA) [Mass fraction] 95 % Dr. Rebecca Dinh Work Phone: 0(609)360-236758 [place] [address] 12-09-2022 13:39-0400 Systolic blood pressure 113 mm[Hg] Dr. Rebecca Dinh Work Phone: 6(643)781-510958 [place] [address] 12-09-2022 12:42-0400 Body height 172.[address] Rebecca Dinh Work Phone: 1(271)121-893158 [place] [address] 12-08-2022 13:26-0400 Body temperature 98.3 [degF] Dr. Rebecca Dinh Work Phone: 8(217)480-688458 [place] [address] 12-08-2022 13:26-0400 Diastolic blood pressure 70 mm[Hg] Dr. Rebecca Dinh Work Phone: 4(543)048-914758 [place] [address] 12-08-2022 13:26-0400 Heart rate 61 /min Dr. Rebecca Dinh Work Phone: 0(600)158-062858 [place] [address] 12-08-2022 13:26-0400 Respiratory rate 18 /min Dr. Rebecca Dinh Work Phone: 7(957)574-930558 [place] [address] 12-08-2022 13:26-0400 SaO2% (BldA) [Mass fraction] 98 % Dr. Rebecca Dinh Work Phone: 1(402)480-357858 [place] [address] 12-08-2022 13:26-0400 Systolic blood pressure 115 mm[Hg] Dr. Rebecca Dinh Work Phone: 6(510)653-854658 [place] [address] 12-07-2022 14:00-0400 Body temperature 97.7 [degF] Dr. Rebecca Dinh Work Phone: 5(373)541-386958 [place] [address] 12-07-2022 14:00-0400 Diastolic blood pressure 78 mm[Hg] Dr. Rebecca Dinh Work Phone: 5(561)248-798050 [place] [address] 12-07-2022 14:00-0400 Heart rate 60 /min Dr. Rebecca Dinh Work Phone: 5(758)356-580858 [place] [address] 12-07-2022 14:00-0400 Respiratory rate 18 /min Dr. Rebecca Dinh Work Phone: 1(363)345-645458 [place] [address] 12-07-2022 14:00-0400 SaO2% (BldA) [Mass fraction] 97 % Dr. Rebecca Dinh Work Phone: 6(882)389-110858 [place] [address] 12-07-2022 14:00-0400 Systolic blood pressure 106 mm[Hg] Dr. Rebecca Dinh Work Phone: 7(488)620-708758 [place] [address] 12-06-2022 14:00-0400 Body temperature 97.9 [degF] Dr. Rebecca Dinh Work Phone: 2(949)484-790758 [place] [address] 12-06-2022 14:00-0400 Diastolic blood pressure 71 mm[Hg] Dr. Rebecca Dinh Work Phone: 9(201)870-115058 [place] [address] 12-06-2022 14:00-0400 Heart rate 64 /min Dr. Rebecca Dinh Work Phone: 3(371)296-572858 [place] [address] 12-06-2022 14:00-0400 Respiratory rate 16 /min Dr. Rebecca Dinh Work Phone: 3(739)322-858858 [place] [address] 12-06-2022 14:00-0400 SaO2% (BldA) [Mass fraction] 98 % Dr. Rebecca Dinh Work Phone: 0(604)470-392258 [place] [address] 12-06-2022 14:00-0400 Systolic blood pressure 114 mm[Hg] Dr. Rebecca Dinh Work Phone: 4(505)409-903158 [place] [address] 12-06-2022 12:26-0400 Body height 172.[address] Rebecca Dinh Work Phone: 6(834)401-711358 [place] [address] 12-05-2022 13:40-0400 Body temperature 97.8 [degF] Dr. Rebecca Dinh Work Phone: 7(688)187-086058 [place] [address] 12-05-2022 13:40-0400 Diastolic blood pressure 72 mm[Hg] Dr. Rebecca Dinh Work Phone: 6(677)767-193758 [place] [address] 12-05-2022 13:40-0400 Heart rate 68 /min Dr. Rebecca Dinh Work Phone: 8(500)041-273758 [place] [address] 12-05-2022 13:40-0400 Respiratory rate 16 /min Dr. Rebecca Dinh Work Phone: 3(552)944-016258 [place] [address] 12-05-2022 13:40-0400 SaO2% (BldA) [Mass fraction] 98 % Dr. Rebecca Dinh Work Phone: 6(591)563-496958 [place] [address] 12-05-2022 13:40-0400 Systolic blood pressure 126 mm[Hg] Dr. Rebceca Dinh Work Phone: 7(280)602-377258 [place] [address] 12-05-2022 12:25-0400 Body height 172.[address] Rebecca Dinh Work Phone: 4(555)208-497458 [place] [address] 12-05-2022 12:25-0400 Body mass index (BMI) [Ratio] 28.4 kg/m2 Dr. Rebecca Dinh Work Phone: 1(733)926-140158 [place] [address] 12-05-2022 12:25-0400 Body weight 84.[address] Rebecca Dinh Work Phone: 5(735)972-938158 [place] [address] 12-04-2022 13:45-0400 Body temperature 97.8 [degF] Dr. Rebecca Dinh Work Phone: 9(777)371-314658 [place] [address] 12-04-2022 13:45-0400 Diastolic blood pressure 65 mm[Hg] Dr. Rebecca Dinh Work Phone: 3(797)375-968258 [place] [address] 12-04-2022 13:45-0400 Heart rate 75 /min Dr. Rebecca Dinh Work Phone: 8(581)560-973458 [place] [address] 12-04-2022 13:45-0400 Respiratory rate 16 /min Dr. Rebecca Dinh Work Phone: 5(981)876-506258 [place] [address] 12-04-2022 13:45-0400 SaO2% (BldA) [Mass fraction] 99 % Dr. Rebecca Dinh Work Phone: 0(349)761-321958 [place] [address] 12-04-2022 13:45-0400 Systolic blood pressure 112 mm[Hg] Dr. Rebecca Dinh Work Phone: 4(151)323-315458 [place] [address] 12-04-2022 12:28-0400 Body mass index (BMI) [Ratio] 28.3 kg/m2 Dr. Rebecca Dinh Work Phone: 4(409)323-013758 [place] [address] 12-04-2022 12:28-0400 Body weight 84.[address] Rebecca Dinh Work Phone: 5(563)871-982558 [place] [address] 12-03-2022 13:19-0400 Body temperature 97.1 [degF] Dr. Rebecca Dinh Work Phone: 0(913)948-753058 [place] [address] 12-03-2022 13:19-0400 Diastolic blood pressure 64 mm[Hg] Dr. Rebecca Dinh Work Phone: 9(251)619-256758 [place] [address] 12-03-2022 13:19-0400 Heart rate 65 /min Dr. Rebecca Dinh Work Phone: 6(560)492-760758 [place] [address] 12-03-2022 13:19-0400 Respiratory rate 16 /min Dr. Rebecca Dinh Work Phone: 9(364)678-968158 [place] [address] 12-03-2022 13:19-0400 SaO2% (BldA) [Mass fraction] 97 % Dr. Rebecca Dinh Work Phone: 0(362)659-010758 [place] [address] 12-03-2022 13:19-0400 Systolic blood pressure 104 mm[Hg] Dr. Rebecca Dinh Work Phone: 8(165)768-461358 [place] [address] 12-03-2022 11:58-0400 Body height 172.[address] Rebecca Dinh Work Phone: 4(030)091-994858 [place] [address] 12-03-2022 11:58-0400 Body mass index (BMI) [Ratio] 28.3 kg/m2 Dr. Rebecca Dinh Work Phone: 8(255)850-077458 [place] [address] 12-03-2022 11:58-0400 Body weight 84.[address] Rebecca Dinh Work Phone: 3(260)860-257558 [place] [address] 12-02-2022 11:59-0400 Body temperature 97.2 [degF] Dr. Rebecca Dinh Work Phone: 1(203)948-115958 [place] [address] 12-02-2022 11:59-0400 Diastolic blood pressure 61 mm[Hg] Dr. Rebecca Dinh Work Phone: 0(097)316-316658 [place] [address] 12-02-2022 11:59-0400 Heart rate 69 /min Dr. Rebecca Dinh Work Phone: 9(786)886-700058 [place] [address] 12-02-2022 11:59-0400 Respiratory rate 16 /min Dr. Rebecca Dinh Work Phone: 8(472)005-352358 [place] [address] 12-02-2022 11:59-0400 SaO2% (BldA) [Mass fraction] 98 % Dr. Rebecca Dinh Work Phone: 7(142)536-490358 [place] [address] 12-02-2022 11:59-0400 Systolic blood pressure 106 mm[Hg] Dr. Rebecca Dinh Work Phone: 5(108)052-104858 [place] [address] 12-02-2022 10:41-0400 Body height 172.[address] Rebecca Dinh Work Phone: 5(806)622-963858 [place] [address] 12-02-2022 10:41-0400 Body mass index (BMI) [Ratio] 28.3 kg/m2 Dr. Rebecca Dinh Work Phone: 5(621)929-348158 [place] [address] 12-02-2022 10:41-0400 Body weight 84.[address] Rebecca Dinh Work Phone: 0(485)618-752258 [place] [address] 12-01-2022 12:03-0400 Body temperature 98 [degF] Dr. Rebecca Dinh Work Phone: 0(831)991-460858 [place] [address] 12-01-2022 12:03-0400 Diastolic blood pressure 70 mm[Hg] Dr. Rebecca Dinh Work Phone: 0(523)155-528958 [place] [address] 12-01-2022 12:03-0400 Heart rate 64 /min Dr. Rebecca Dinh Work Phone: 7(477)062-234458 [place] [address] 12-01-2022 12:03-0400 Respiratory rate 16 /min Dr. Rebecca Dinh Work Phone: 5(267)186-140258 [place] [address] 12-01-2022 12:03-0400 SaO2% (BldA) [Mass fraction] 97 % Dr. Rebecca Dinh Work Phone: 3(342)380-170058 [place] [address] 12-01-2022 12:03-0400 Systolic blood pressure 99 mm[Hg] Dr. Rebecca Dinh Work Phone: 5(296)284-875558 [place] [address] 11-30-2022 09:25-0400 Heart rate 97 /min Dr. Rebecca Dinh Work Phone: 8(847)991-592958 [place] [address] 11-30-2022 09:21-0400 Body temperature 97.2 [degF] Dr. Rebecca Dinh Work Phone: 9(625)619-023158 [place] [address] 11-30-2022 09:21-0400 Diastolic blood pressure 79 mm[Hg] Dr. Rebecca Dinh Work Phone: 9(693)463-962958 [place] [address] 11-30-2022 09:21-0400 Respiratory rate 16 /min Dr. Rebecca Dinh Work Phone: 0(188)814-601858 [place] [address] 11-30-2022 09:21-0400 SaO2% (BldA) [Mass fraction] 96 % Dr. Rebecca Dinh Work Phone: 7(725)413-983458 [place] [address] 11-30-2022 09:21-0400 Systolic blood pressure 110 mm[Hg] Dr. Rebecca Dinh Work Phone: 5(307)319-926658 [place] [address] 11-28-2022 14:28-0400 Body height 172.[address] Rebecca Dinh Work Phone: 0(191)039-607858 [place] [address] 11-28-2022 14:28-0400 Body weight 84.[address] Rebecca Dinh Work Phone: 1(050)562-473058 [place] [address] 11-28-2022 08:00-0400 Body temperature 98.7 [degF] Dr. Rebecca Dinh Work Phone: 1(035)716-729450 [place] [address] 11-28-2022 08:00-0400 Diastolic blood pressure 73 mm[Hg] Dr. Rebecca Dinh Work Phone: 3(464)648-834658 [place] [address] 11-28-2022 08:00-0400 Heart rate 67 /min Dr. Rebecca Dinh Work Phone: 1(907)490-044558 [place] [address] 11-28-2022 08:00-0400 Respiratory rate 14 /min Dr. Rebecca Dinh Work Phone: 0(030)299-995658 [place] [address] 11-28-2022 08:00-0400 SaO2% (BldA) [Mass fraction] 95 % Dr. Rebecca Dinh Work Phone: 5(917)191-833758 [place] [address] 11-28-2022 08:00-0400 Systolic blood pressure 116 mm[Hg] Dr. Rebecca Dinh Work Phone: 4(855)145-033758 [place] [address] 11-27-2022 12:12-0400 Body height 172.[address] Rebecca Dinh Work Phone: 0(449)352-205358 [place] [address] 11-27-2022 12:12-0400 Body mass index (BMI) [Ratio] 28.3 kg/m2 Dr. Rebecca Dinh Work Phone: 3(554)313-642058 [place] [address] 11-27-2022 12:12-0400 Body weight 84.[address] Rebecca Dinh Work Phone: 7(078)615-201358 [place] [address] 11-25-2022 14:49-0400 Body height 172.7 cm Silvadaniele Mikebow PA-C Work Phone: [facility] 11-25-2022 14:49-0400 Body temperature 99.1 [degF] Silvadaniele Mikebow PA-C Work Phone: [facility] 11-25-2022 14:49-0400 Body weight 87.09 kg Silvadaniele Mikebow PA-C Work Phone: [facility] 11-25-2022 14:49-0400 Diastolic blood pressure 60 mm[Hg] Silva Denbow PA-C Work Phone: [facility] 11-25-2022 14:49-0400 Heart rate 93 /min Silva Denbow PA-C Work Phone: [facility] 11-25-2022 14:49-0400 Respiratory rate 12 /min Silva Denbow PA-C Work Phone: [facility] 11-25-2022 14:49-0400 SaO2% (BldA) [Mass fraction] 97 % Silva Denbow PA-C Work Phone: [facility] 11-25-2022 14:49-0400 Systolic blood pressure 118 mm[Hg] Silva Rashidbow PA-C Work Phone: [facility] 11-17-2022 21:11-0400 Diastolic blood pressure 86 mm[Hg] Dr. Rebecca Dinh Work Phone: [facility] 11-17-2022 21:11-0400 Heart rate 97 /min Dr. Rebecca Dinh Work Phone: 4(456)599-699150 [place] [address] 11-17-2022 21:11-0400 Respiratory rate 16 /min Dr. Rebecca Dinh Work Phone: 5(106)199-345650 [place] [address] 11-17-2022 21:11-0400 SaO2% (BldA) [Mass fraction] 95 % Dr. Rebecca Dinh Work Phone: [facility] 11-17-2022 21:11-0400 Systolic blood pressure 139 mm[Hg] Dr. Rebecca Dinh Work Phone: 2(452)480-781450 [place] [address] 11-17-2022 19:36-0400 Body height 172.[address] Rebecca Dinh Work Phone: 3(511)148-810850 [place] [address] 11-17-2022 19:36-0400 Body mass index (BMI) [Ratio] 29.7 kg/m2 Dr. Rebecca Dinh Work Phone: 0(042)505-682450 [place] [address] 11-17-2022 19:36-0400 Body temperature 98.6 [degF] Dr. Rebecca Dinh Work Phone: 6(891)671-375850 [place] [address] 11-17-2022 19:36-0400 Body weight 88.[address] Rebecca Dinh Work Phone: 3(518)836-570558 [place] [address] 11-14-2022 11:53-0400 Body temperature 99.7 [degF] Dr. Rebecca Dinh Work Phone: 7(379)353-976258 [place] [address] 11-14-2022 11:53-0400 Diastolic blood pressure 71 mm[Hg] Dr. Rebecca Dinh Work Phone: 4(084)059-290058 [place] [address] 11-14-2022 11:53-0400 Heart rate 65 /min Dr. Rebecca Dinh Work Phone: 9(060)137-738158 [place] [address] 11-14-2022 11:53-0400 Respiratory rate 16 /min Dr. Rebecca Dinh Work Phone: 5(233)985-883958 [place] [address] 11-14-2022 11:53-0400 SaO2% (BldA) [Mass fraction] 96 % Dr. Rebecca Dinh Work Phone: 6(043)228-293258 [place] [address] 11-14-2022 11:53-0400 Systolic blood pressure 100 mm[Hg] Dr. Rebecca Dinh Work Phone: 2(286)322-140958 [place] [address] 11-14-2022 10:08-0400 Body height 172.[address] Rebecca Dinh Work Phone: 1(309)896-139658 [place] [address] 11-14-2022 10:08-0400 Body mass index (BMI) [Ratio] 28.5 kg/m2 Dr. Rebecca Dinh Work Phone: 4(814)827-548258 [place] [address] 11-14-2022 10:08-0400 Body weight 85.[address] Rebecca Dinh Work Phone: 8(550)416-855058 [place] [address] 11-07-2022 09:32-0400 Body height 172.7 cm Garth Galaviz MD Work Phone: [facility] 11-07-2022 09:32-0400 Body weight 84.37 kg Garth Galaviz MD Work Phone: [facility] 11-07-2022 09:32-0400 Diastolic blood pressure 98 mm[Hg] Garth Galaviz MD Work Phone: [facility] 11-07-2022 09:32-0400 Heart rate 68 /min Garth Galaviz MD Work Phone: [facility] 11-07-2022 09:32-0400 Systolic blood pressure 131 mm[Hg] Garth Galaviz MD Work Phone: [facility] 11-05-2022 14:40-0400 Body temperature 97.8 [degF] Dr. Rebecca Dinh Work Phone: 8(220)598-062950 [place] [address] 11-05-2022 14:40-0400 Diastolic blood pressure 68 mm[Hg] Dr. Rebecca Dinh Work Phone: 2(609)496-113958 [place] [address] 11-05-2022 14:40-0400 Heart rate 67 /min Dr. Rebecca Dinh Work Phone: 6(553)039-330758 [place] [address] 11-05-2022 14:40-0400 Respiratory rate 18 /min Dr. Rebecca Dinh Work Phone: 5(085)160-857758 [place] [address] 11-05-2022 14:40-0400 SaO2% (BldA) [Mass fraction] 97 % Dr. Rebecca Dinh Work Phone: 5(802)807-578450 [place] [address] 11-05-2022 14:40-0400 Systolic blood pressure 117 mm[Hg] Dr. Rebecca Dinh Work Phone: 3(385)509-380550 [place] [address] 11-05-2022 05:57-0400 Body mass index (BMI) [Ratio] 28.1 kg/m2 Dr. Rebecca Dinh Work Phone: 7(674)620-691350 [place] [address] 11-05-2022 05:57-0400 Body weight [address] Rebecca Dinh Work Phone: 6(854)810-336150 [place] [address] 11-04-2022 13:08-0400 Body height 172.[address] Rebecca Dinh Work Phone: 2(435)871-075950 [place] [address] 10-28-2022 12:39-0400 Body height 172.7 cm Silva Denbow PA-C Work Phone: [facility] 10-28-2022 12:39-0400 Body temperature 98.29 [degF] Silva Denbow PA-C Work Phone: [facility] 10-28-2022 12:39-0400 Body weight 85.73 kg Silva Denbow PA-C Work Phone: [facility] 10-28-2022 12:39-0400 Diastolic blood pressure 56 mm[Hg] Silva Denbow PA-C Work Phone: [facility] 10-28-2022 12:39-0400 Heart rate 81 /min Silva Denbow PA-C Work Phone: [facility] 10-28-2022 12:39-0400 Respiratory rate 12 /min Silva Denbow PA-C Work Phone: [facility] 10-28-2022 12:39-0400 SaO2% (BldA) [Mass fraction] 98 % Silva Denbow PA-C Work Phone: [facility] 10-28-2022 12:39-0400 Systolic blood pressure 120 mm[Hg] Silva Denbow PA-C Work Phone: [facility] 10-10-2022 13:54-0400 Body weight 86.09 kg Gian Baer MD Work Phone: [facility] 10-10-2022 13:54-0400 Diastolic blood pressure 60 mm[Hg] Gian Bear MD Work Phone: [facility] 10-10-2022 13:54-0400 Heart rate 100 /min Gian Bear MD Work Phone: [facility] 10-10-2022 13:54-0400 Respiratory rate 20 /min Gian Bear MD Work Phone: [facility] 10-10-2022 13:54-0400 Systolic blood pressure 94 mm[Hg] Gian Bear MD Work Phone: [facility] 10-05-2022 12:40-0400 Body mass index (BMI) [Ratio] 29 kg/m2 Dr. Rebecca Dinh Work Phone: 0(311)001-784950 [place] [address] 10-05-2022 12:40-0400 Body temperature 98.4 [degF] Dr. Rebecca Dinh Work Phone: 9(171)353-715358 [place] [address] 10-05-2022 12:40-0400 Body weight 86.[address] Rebecca Dinh Work Phone: 0(078)215-362358 [place] [address] 10-05-2022 12:40-0400 Diastolic blood pressure 67 mm[Hg] Dr. Rebecca Dinh Work Phone: 4(329)827-531958 [place] [address] 10-05-2022 12:40-0400 Heart rate 84 /min Dr. Rebecca Dinh Work Phone: 0(703)228-739558 [place] [address] 10-05-2022 12:40-0400 Respiratory rate 16 /min Dr. Rebecca Dinh Work Phone: 1(837)126-387458 [place] [address] 10-05-2022 12:40-0400 SaO2% (BldA) [Mass fraction] 98 % Dr. Rebecca Dinh Work Phone: 0(192)639-705258 [place] [address] 10-05-2022 12:40-0400 Systolic blood pressure 102 mm[Hg] Dr. Rebecca Dinh Work Phone: 5(813)592-993058 [place] [address] 07-22-2022 15:22-0400 Body mass index (BMI) [Ratio] 29.9 kg/m2 Dr. Rebecca Dinh Work Phone: 8(048)811-153358 [place] [address] 07-22-2022 15:22-0400 Body weight 89.[address] Rebecca Dinh Work Phone: 1(022)972-100258 [place] [address] 07-22-2022 15:22-0400 Diastolic blood pressure 78 mm[Hg] Dr. Rebecca Dinh Work Phone: 2(105)959-549658 [place] [address] 07-22-2022 15:22-0400 Heart rate 74 /min Dr. Rebecca Dinh Work Phone: 3(725)565-503958 [place] [address] 07-22-2022 15:22-0400 Respiratory rate 16 /min Dr. Rebecca Dinh Work Phone: [facility] 07-22-2022 15:22-0400 Systolic blood pressure 126 mm[Hg] Dr. Rebecca Dinh Work Phone: [facility] 07-03-2022 16:14-0400 Body height 172.7 cm Rebecca Dinh MD Work Phone: [facility] 07-03-2022 16:14-0400 Body temperature 98.2 [degF] Rebecca Dinh MD Work Phone: 7(930)997-353183 [place] [address] 07-03-2022 16:14-0400 Body weight 89.36 kg Rebecca Dinh MD Work Phone: [facility] 07-03-2022 16:14-0400 Diastolic blood pressure 72 mm[Hg] Rebecca Dinh MD Work Phone: [facility] 07-03-2022 16:14-0400 Heart rate 82 /min Rebecca Dinh MD Work Phone: [facility] 07-03-2022 16:14-0400 Respiratory rate 12 /min Rebecca Dinh MD Work Phone: [facility] 07-03-2022 16:14-0400 SaO2% (BldA) [Mass fraction] 97 % Rebecca Dinh MD Work Phone: [facility] 07-03-2022 16:14-0400 Systolic blood pressure 112 mm[Hg] Rebecca Dinh MD Work Phone: [facility] 01-17-2022 10:11-0500 Body height 172.[address] Rebecca Dinh Work Phone: [facility] Work Phone: 01-17-2022 10:11-0500 Body mass index (BMI) [Ratio] 29.1 kg/m2 Dr. Rebecca Dinh Work Phone: [facility] Work Phone: 01-17-2022 10:11-0500 Body weight 86.[address] Rebecca Dinh Work Phone: [facility] Work Phone: 01-17-2022 10:11-0500 Diastolic blood pressure 62 mm[Hg] Dr. Rebecca Dinh Work Phone: [facility] Work Phone: 01-17-2022 10:11-0500 Heart rate 64 /min Dr. Rebecca Dinh Work Phone: [facility] Work Phone: 01-17-2022 10:11-0500 Respiratory rate 16 /min Dr. Rebecca Dinh Work Phone: [facility] Work Phone: 01-17-2022 10:11-0500 Systolic blood pressure 110 mm[Hg] Dr. Rebecca Dinh Work Phone: [facility] Work Phone: 12-31-2021 15:44-0400 Body height 172.7 cm Rebecca Dinh MD Work Phone: [facility] 12-31-2021 15:44-0400 Body temperature 98.6 [degF] Rebecca Dinh MD Work Phone: [facility] 12-31-2021 15:44-0400 Body weight 85.28 kg Rebecca Dinh MD Work Phone: [facility] 12-31-2021 15:44-0400 Diastolic blood pressure 70 mm[Hg] Rebecca Dinh MD Work Phone: [facility] 12-31-2021 15:44-0400 Heart rate 60 /min Rebecca Dinh MD Work Phone: [facility] 12-31-2021 15:44-0400 Respiratory rate 12 /min Rebecca Dinh MD Work Phone: [facility] 12-31-2021 15:44-0400 SaO2% (BldA) [Mass fraction] 98 % Rebecac Dinh MD Work Phone: [facility] 12-31-2021 15:44-0400 Systolic blood pressure 136 mm[Hg] Rebecca Dinh MD Work Phone: [facility] 11-01-2021 13:36-0400 Body height 172.7 cm Armida Sigmund SOCIAL WORK LECTURER.MAINTENANCE OPERATOR Work Phone: [facility] 11-01-2021 13:36-0400 Body temperature 97.7 [degF] Armida Sigmund SOCIAL WORK LECTURER.MAINTENANCE OPERATOR Work Phone: [facility] 11-01-2021 13:36-0400 Body weight 86.64 kg Armida Sigmund SOCIAL WORK LECTURER.MAINTENANCE OPERATOR Work Phone: [facility] 11-01-2021 13:36-0400 Diastolic blood pressure 76 mm[Hg] Armida Sigmund SOCIAL WORK LECTURER.MAINTENANCE OPERATOR Work Phone: [facility] 11-01-2021 13:36-0400 Heart rate 58 /min Armida Sigmund SOCIAL WORK LECTURER.MAINTENANCE OPERATOR Work Phone: [facility] 11-01-2021 13:36-0400 Respiratory rate 18 /min Armida Sigmund SOCIAL WORK LECTURER.MAINTENANCE OPERATOR Work Phone: [facility] 11-01-2021 13:36-0400 SaO2% (BldA) [Mass fraction] 98 % Armida Sigmund SOCIAL WORK LECTURER.MAINTENANCE OPERATOR Work Phone: [facility] 11-01-2021 13:36-0400 Systolic blood pressure 106 mm[Hg] Armida Sigmund SOCIAL WORK LECTURER.MAINTENANCE OPERATOR Work Phone: [facility] 06-29-2021 14:47-0400 Body height 172.7 cm Rebecca Dinh MD Work Phone: [facility] 06-29-2021 14:47-0400 Body temperature 98.1 [degF] Rebecca Dinh MD Work Phone: [facility] 06-29-2021 14:47-0400 Body weight 87.09 kg Rebecca Dinh MD Work Phone: [facility] 06-29-2021 14:47-0400 Diastolic blood pressure 62 mm[Hg] Rebecca Dinh MD Work Phone: [facility] 06-29-2021 14:47-0400 Heart rate 66 /min Rebecca Dinh MD Work Phone: [facility] 06-29-2021 14:47-0400 Respiratory rate 12 /min Rebecca Dinh MD Work Phone: [facility] 06-29-2021 14:47-0400 SaO2% (BldA) [Mass fraction] 97 % Rebecca Dinh MD Work Phone: [facility] 06-29-2021 14:47-0400 Systolic blood pressure 132 mm[Hg] Rebecca Dinh MD Work Phone: [facility] 06-25-2021 15:41-0400 Body height 172.[address] Rebecca Dinh Work Phone: [facility] Work Phone: 06-25-2021 15:41-0400 Body mass index (BMI) [Ratio] 29.2 kg/m2 Dr. Rebecca Dinh Work Phone: [facility] Work Phone: 06-25-2021 15:41-0400 Body weight 87.[address] Rebecca Dinh Work Phone: [facility] Work Phone: 06-25-2021 15:41-0400 Diastolic blood pressure 80 mm[Hg] Dr. Rebecca Dinh Work Phone: [facility] Work Phone: 06-25-2021 15:41-0400 Heart rate 53 /min Dr. Rebecca Dinh Work Phone: [facility] Work Phone: 06-25-2021 15:41-0400 Respiratory rate 18 /min Dr. Rebecca Dinh Work Phone: [facility] Work Phone: 06-25-2021 15:41-0400 SaO2% (BldA) [Mass fraction] 97 % Dr. Rebecca Dinh Work Phone: [facility] Work Phone: 06-25-2021 15:41-0400 Systolic blood pressure 139 mm[Hg] Dr. Rebecca Dinh Work Phone: [facility] Work Phone: Encounters Encounter Date Encounter Type Care Provider Facility Start: 01-13-[address] [facility] [facility] Facility:[facility] Start: 01-10-2025 End: 01-10-[address] [facility] [place] [place] Start: 12-23-2024 End: 12-23-2024 ambulatory [facility] Facility:[facility] Start: 12-11-2024 End: 12-11-2024 ambulatory [facility] Facility:[facility] Start: 11-23-2024 End: 11-23-2024 ambulatory [facility] Start: 11-23-2024 End: 11-23-2024 Patient encounter procedure Annie Keys MA [facility] Comment on above: Population Health Na vigation Outreach ([place]/[facility]/ACO ) Start: 11-04-2024 End: 11-04-2024 Patient encounter procedure Basilio LOMELI -[place] [facility] Work Phone: Start: 11-04-2024 End: 11-04-[address] Rebecca Dinh MD Work Phone: -[place] [facility] Start: 11-01-2024 End: 11-04-2024 Refill Caroline Fischer APRN.CNP Work Phone: Internal Medicine [place] Comment on above: Refill Request Start: 09-23-2024 End: 09-23-[address] Rebecca Dinh MD Work Phone: -Cardiovascular Services Start: 09-23-2024 End: 09-23-2024 Patient encounter procedure Basilio H Roof FULLER BRUSH MAN-C -Cardiovascular Services Work Phone: Start: 09-23-[address] [facility] Start: 09-23-2024 Non-patient / Non-visit Dr. Kunal BUI -[facility] Start: 09-22-2024 End: 09-23-2024 ambulatory NICOLLE WORLEY Facility:[facility] Start: 09-22-2024 End: 09-22-2024 Patient encounter procedure Nicolle Brunilda SOCIAL WORK LECTURER.LSAT INSTRUCTOR Work Phone: Internal Medicine [place] Comment on above: Medicare annual well ness visit, subsequent (Primary Dx); BARROW (hard of hearing); Encounter for immunization Start: 09-06-2024 End: 09-06-[address] Rebecca Dinh MD Work Phone: -Laboratory Start: 09-06-2024 End: 09-06-2024 Patient encounter procedure Basilio Warren NP-C -Laboratory Work Phone: Start: 09-06-2024 End: 09-06-2024 Patient encounter procedure Basilio Warren NP-C -[place] [facility] Work Phone: Start: 09-06-2024 End: 09-06-[address] Rebecca Dinh MD Work Phone: -[place] [facility] Start: 09-06-2024 End: 09-06-[address] [facility] Facility:[facility] Start: 08-10-2024 End: 08-10-2024 Telephone encounter Victor Manuel Olson DO Work Phone: Hematology/Oncology Comment on above: Results Start: 08-09-2024 End: 08-09-2024 ambulatory [facility] Facility:[facility] Start: 08-04-2024 End: 08-05-2024 Refill Rebecca Dinh MD Work Phone: Internal Medicine [place] Comment on above: Refill Request Start: 08-03-2024 End: 08-03-2024 Patient encounter procedure Almita Phillips PA-C Work Phone: Urology Comment on above: Left hydrocele Start: 08-03-2024 End: 08-03-2024 ambulatory ALMITA PHILLIPS Facility:[facility] Start: 07-19-2024 End: 07-21-2024 Refill Lois Reyna LPN [facility] [place] Comment on above: Refill Request Start: 07-12-2024 End: 07-12-2024 Patient encounter procedure Victor Manuel Olson DO Work Phone: Hematology/Oncology Start: 07-12-2024 End: 07-12-2024 ambulatory Victor Manuel Aretha Wesley PAUL Work Phone: Hematology/Oncology Comment on above: Anemia associated wi th stage 3 chronic renal failure (HCC) (Primary Dx) Start: 07-09-2024 End: 07-09-2024 Patient encounter procedure Darryl Pimentel DO -[facility] Work Phone: Start: 07-09-2024 End: 07-09-[address] [facility] Facility:[facility] Start: 07-08-[address] [facility] Start: 07-08-2024 Non-patient / Non-visit Dr. Jeffrey mcconnell DO -[facility] Start: 07-08-2024 End: 07-08-2024 Patient encounter procedure Elvia GODOY -Pulmonary Services/Neurology Work Phone: Start: 07-07-2024 End: 07-08-2024 ambulatory [facility] Facility:[facility] Start: 07-02-2024 End: 07-02-2024 Patient encounter procedure Elvia GODOY -Laboratory Work Phone: Start: 07-02-2024 End: 07-02-[address] [facility] Facility:[facility] Start: 06-24-2024 End: 06-24-2024 Emergency department patient visit Dr. Dustin Jeffery MD -Emergency Department Work Phone: Start: 06-23-2024 End: 08-23-2024 Follow-up encounter Rebecca Dinh MD Work Phone: Internal Medicine [place] Start: 06-18-2024 End: 06-18-2024 ambulatory [facility] Facility:[facility] Start: 06-18-2024 End: 06-18-2024 Subsequent hospital visit by physician [facility] Work Phone: Radiology Comment on above: Testicular mass [N50 .89] Start: 06-17-2024 End: 06-28-2024 Follow-up encounter Nicolle Worley APRN.CNP Work Phone: Family Medicine [place] Start: 06-14-2024 End: 06-14-2024 [facility] Facility:[facility] Start: 06-14-2024 End: 06-14-2024 [facility] Facility:[facility] Start: 06-14-2024 End: 06-14-2024 Office outpatient visit 25 minutes Rebecca Dinh MD Work Phone: Internal Medicine [place] Comment on above: Anemia, unspecified type (Primary Dx); Stage 3 chronic kidney disease, unspecified whether stage 3a or 3b CKD (HCC); PARKER (obstructive sleep apnea); Essential hypertension; Anxiety and depression; Mixed hyperlipidemia; DNIH (dyspnea on exertion); Prostate cancer screening; Testicular mass Start: 06-08-2024 End: 06-08-2024 [facility] Facility:[facility] Start: 06-01-2024 End: 06-04-2024 ambulatory Rebecca Dinh MD Work Phone: Internal Medicine [facility] Start: 05-11-2024 End: 05-11-2024 Telephone encounter Patricia Sanders Work Phone: Hematology/Oncology Comment on above: Results Start: 04-29-2024 End: 04-29-2024 Telephone encounter Patricia Sanders Work Phone: Hematology/Oncology Comment on above: Lab Orders Start: 04-14-2024 End: 04-16-2024 Refill Rebecca Dinh MD Work Phone: Internal Medicine [place] Comment on above: Refill Request Start: 02-27-2024 End: 02-27-2024 [facility] Fab[facility] Facility:[facility] Start: 02-24-2024 End: 02-25-2024 Refill Rebecca Dinh MD Work Phone: Internal Medicine [place] Comment on above: Refill Request Start: 01-29-2024 End: 01-29-[address] [facility] [place] [place] Start: 01-21-2024 End: 01-21-[address] [facility] [place] [place] Start: 01-20-2024 End: 01-20-[address] [facility] [place] Start: 01-13-2024 End: 01-13-2024 Office outpatient visit 25 minutes Rebecca Dinh MD Work Phone: Internal Medicine [place] Comment on above: Mixed hyperlipidemia (Primary Dx); Anemia, unspecified type; On anticoagulant therapy; Mild anemia Start: 01-13-2024 End: 01-13-2024 [facility] Facility:[facility] Start: 01-10-2024 End: 01-10-2024 [facility] Facility:[facility] Start: 01-09-2024 End: 01-09-2024 ambulatory Patricia Sanders Work Phone: Hematology/Oncology Comment on above: Iron deficiency anem ia due to chronic blood loss (Primary Dx) Start: 01-09-2024 End: 01-09-2024 Patient encounter procedure Patricia Sanders Work Phone: Hematology/Oncology Start: 01-07-2024 End: 01-07-2024 ambulatory VICTOR MANUEL OLSON Facility:[facility] Start: 12-30-2023 End: 01-02-2024 ambulatory Rebecca Dinh MD Work Phone: Internal Medicine [facility] Start: 12-01-2023 End: 12-01-2023 Refill Rebecca Dinh MD Work Phone: Family Medicine [place] Comment on above: Refill Request Start: 10-11-2023 Refill Rebecca Law Work Phone: Internal Medicine [place] Comment on above: Refill Request Start: 10-09-2023 End: 10-09-2023 Office outpatient visit 25 minutes Armida Long APRN.CNS Work Phone: Cardiothoracic Comment on above: Aneurysm of ascendin g aorta without rupture (HCC) (Primary Dx); S/P ascending aortic aneurysm repair; S/P AVR (aortic valve replacement); 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; H/O aortic arch replacement; S/P TVR (tricuspid valve repair); Nonrheumatic mitral valve regurgitation Start: 10-09-2023 End: 10-09-2023 Nursing evaluation of patient and report Research Nurse Channing Main Work Phone: Cardiothoracic Comment on above: Research study amol nt (Primary Dx) Start: 10-09-2023 End: 10-09-2023 Patient entered into trial Research Nurse Channing Main Work Phone: [facility] Start: 10-09-2023 End: 10-09-[address] (I-Stat) Work Phone: [facility] Start: 10-09-2023 End: 10-09-2023 Subsequent hospital visit by physician Kaila Yoon (I-Stat) Work Phone: Radiology Comment on above: Nonrheumatic mitral valve regurgitation [I34.0] Start: 10-08-2023 End: 10-08-2023 ambulatory [facility] Work Phone: Hematology/Oncology Comment on above: Iron deficiency anem ia due to chronic blood loss (Primary Dx); Iron malabsorption; Stage 3b chronic kidney disease (HCC) Start: 10-08-2023 End: 10-08-2023 Patient encounter procedure Treatment Rm 14 [facility] Work Phone: Hematology/Oncology Start: 10-06-2023 End: 10-06-2023 ambulatory [facility] Work Phone: Hematology/Oncology Comment on above: Iron deficiency anem ia due to chronic blood loss (Primary Dx); Iron malabsorption; Stage 3b chronic kidney disease (HCC) Start: 10-06-2023 End: 10-06-2023 Patient encounter procedure Treatment Rm 17 [facility] Work Phone: Hematology/Oncology Start: 10-01-2023 End: 10-01-2023 ambulatory [facility] Work Phone: Hematology/Oncology Comment on above: Iron deficiency anem ia due to chronic blood loss (Primary Dx); Iron malabsorption; Stage 3b chronic kidney disease (HCC) Start: 10-01-2023 End: 10-01-2023 Patient encounter procedure Treatment Rm 15 [facility] Work Phone: Hematology/Oncology Start: 09-29-2023 End: 09-29-2023 ambulatory [facility] Work Phone: Hematology/Oncology Comment on above: Iron deficiency anem ia due to chronic blood loss (Primary Dx); Iron malabsorption; Stage 3b chronic kidney disease (HCC) Start: 09-29-2023 End: 09-29-2023 Patient encounter procedure Treatment Rm 17 [facility] Work Phone: Hematology/Oncology Start: 09-24-2023 End: 09-24-2023 ambulatory [facility] Work Phone: Hematology/Oncology Comment on above: Iron deficiency anem ia due to chronic blood loss (Primary Dx); Iron malabsorption; Stage 3b chronic kidney disease (HCC) Start: 09-24-2023 End: 09-24-2023 Patient encounter procedure Treatment Rm 14 [facility] Work Phone: Hematology/Oncology Start: 09-22-2023 End: 09-22-2023 ambulatory Victor Manuel Olson DO Work Phone: Hematology/Oncology Comment on above: Iron deficiency anem ia due to chronic blood loss (Primary Dx); Iron malabsorption Start: 09-22-2023 End: 09-22-2023 Patient encounter procedure Victor Manuel Olson DO Work Phone: Hematology/Oncology Start: 07-29-2023 Refill Rebecca Law Work Phone: Internal Medicine [place] Comment on above: Refill Request Start: 07-09-2023 End: 07-09-2023 Patient encounter procedure Caroline Fischer APRN.LSAT INSTRUCTOR Work Phone: Internal Medicine [place] Comment on above: Stage 3 chronic kidn ey disease, unspecified whether stage 3a or 3b CKD (HCC) (Primary Dx); Paroxysmal atrial fibrillation (HCC); Screening for prostate cancer; Iron deficiency anemia due to chronic blood loss; PARKER (obstructive sleep apnea) Start: 06-16-2023 End: 06-16-2023 ambulatory Patricia Sanders Work Phone: Hematology/Oncology Comment on above: Iron deficiency anem ia due to chronic blood loss (Primary Dx) Start: 06-16-2023 End: 06-16-2023 Patient encounter procedure Patricia Sanders Work Phone: [facility] Start: 06-11-2023 Telephone encounter Victor Manuel morrisno DO Work Phone: Hematology/Oncology Comment on above: Question Start: 02-19-2023 End: 02-19-2023 ambulatory Treatment 13 [facility] Work Phone: Hematology/Oncology Comment on above: Iron deficiency anem ia due to chronic blood loss (Primary Dx); Iron malabsorption Start: 02-18-2023 Orders Only Victor Manuel Juarez Work Phone: Hematology/Oncology Comment on above: Iron deficiency anem ia due to chronic blood loss (Primary Dx); Iron malabsorption Start: 02-17-2023 End: 02-17-2023 ambulatory Treatment 13 [facility] Work Phone: Hematology/Oncology Comment on above: Iron deficiency anem ia due to chronic blood loss (Primary Dx); Iron malabsorption Start: 02-13-2023 End: 02-13-2023 ambulatory Treatment 13 [facility] Work Phone: Hematology/Oncology Comment on above: Iron deficiency anem ia due to chronic blood loss (Primary Dx); Iron malabsorption Start: 02-11-2023 End: 02-11-2023 ambulatory Treatment 13 [facility] Work Phone: Hematology/Oncology Comment on above: Iron deficiency anem ia due to chronic blood loss (Primary Dx); Iron malabsorption Start: 02-07-2023 Telephone encounter Financial Navigator Juan Work Phone: Hematology/Oncology Comment on above: Benefits Investigati on Start: 02-07-2023 End: 02-07-2023 ambulatory Treatment Rm 13 [facility] Work Phone: Hematology/Oncology Comment on above: Iron deficiency anem ia due to chronic blood loss (Primary Dx); Iron malabsorption Start: 02-05-2023 Telephone encounter Victor Manuel morrison DO Work Phone: Hematology/Oncology Comment on above: Orders Start: 01-23-2023 End: 01-23-2023 Patient encounter procedure Silva Palacios PA-C Work Phone: Internal Medicine [place] Comment on above: Essential hypertensi on (Primary Dx); Anemia, unspecified type; Discitis of lumbosacral region; Atrial fibrillation, unspecified type (HCC); On anticoagulant therapy; PARKER on CPAP Start: 01-23-2023 Telephone encounter Victor Manuel morrison DO Work Phone: Hematology/Oncology Comment on above: New Patient Refill Request; Refi ll Request Start: 01-08-2023 End: 01-08-[address] Rebecca Dinh Work Phone: [facility] Work Phone: Start: 01-08-2023 End: 01-08-2023 Dr. Rebecca Dinh Work Phone: [facility] Work Phone: Start: 01-07-2023 End: 01-07-[address] Rebecca Dinh Work Phone: [facility] Work Phone: Start: 01-07-2023 End: 01-07-2023 Dr. Rebecca Dinh Work Phone: [facility] Work Phone: Start: 01-06-2023 End: 01-06-[address] Rebecca Dinh Work Phone: [facility] Work Phone: Start: 01-06-2023 End: 01-06-2023 Dr. Rebecca Dinh Work Phone: [facility] Work Phone: Start: 01-05-2023 End: 01-05-[address] Rebecca Dinh Work Phone: [facility] Work Phone: Start: 01-05-2023 End: 01-05-2023 Dr. Rebecca Dinh Work Phone: [facility] Work Phone: Start: 01-04-2023 End: 01-04-2023 Dr. Rebecca Dinh Work Phone: [facility] Work Phone: Start: 01-03-2023 End: 01-03-[address] Rebecca Dinh Work Phone: [facility] Work Phone: Start: 01-03-2023 End: 01-03-2023 Dr. Rebecca Dinh Work Phone: [facility] Work Phone: Start: 01-02-2023 End: 01-02-[address] Rebecca Dinh Work Phone: [facility] Work Phone: Start: 01-02-2023 End: 01-02-2023 Dr. Rebecca Dinh Work Phone: [facility] Work Phone: Start: 01-01-2023 End: 01-01-[address] Rebecca Dinh Work Phone: [facility] Work Phone: Start: 01-01-2023 End: 01-01-2023 Dr. Rebecca Dinh Work Phone: [facility] Work Phone: Start: 10-24-2023 Telephone encounter Garth hood MD Work Phone: Cardiology Comment on above: Received Outside [facility] Records (CD - Forwarded to [facility] for downloading) Start: 12-31-2022 End: 12-31-[address] Rebecca Dinh Work Phone: [facility] Work Phone: Start: 12-31-2022 End: 12-31-2022 Dr. Rebecca Dinh Work Phone: [facility] Work Phone: Start: 12-30-2022 End: 12-30-[address] Rebecca Dinh Work Phone: [facility] Work Phone: Start: 12-30-2022 End: 12-30-2022 Dr. Rebecca Dinh Work Phone: [facility] Work Phone: Start: 12-29-2022 End: 12-29-[address] Rebecca Dinh Work Phone: [facility] Work Phone: Start: 12-29-2022 End: 12-29-2022 Dr. Rebecca Dinh Work Phone: [facility] Work Phone: Start: 12-28-2022 End: 12-28-[address] Rebecca Dinh Work Phone: [facility] Work Phone: Start: 12-28-2022 End: 12-28-2022 Dr. Rebecca Dinh Work Phone: [facility] Work Phone: Start: 12-27-2022 End: 12-27-[address] Rebecca Dinh Work Phone: [facility] Work Phone: Start: 12-27-2022 End: 12-27-2022 Dr. Rebecca Dinh Work Phone: [facility] Work Phone: Start: 12-26-2022 End: 12-26-[address] Rebecca Dinh Work Phone: [facility] Work Phone: Start: 12-26-2022 End: 12-26-2022 Dr. Rebecca Dinh Work Phone: [facility] Work Phone: Start: 12-25-2022 End: 12-25-[address] Rebecca Dinh Work Phone: [facility] Work Phone: Start: 12-25-2022 End: 12-25-2022 Dr. Rebecca Dinh Work Phone: [facility] Work Phone: Start: 12-24-2022 End: 12-24-[address] Rebecca Dinh Work Phone: [facility] Work Phone: Start: 12-24-2022 End: 12-24-2022 Dr. Rebecca Dinh Work Phone: [facility] Work Phone: Start: 12-23-2022 End: 12-23-[address] Rebecca Dinh Work Phone: [facility] Work Phone: Start: 12-23-2022 End: 12-23-2022 Dr. Rebecca Dinh Work Phone: [facility] Work Phone: Start: 12-22-2022 End: 12-22-[address] Rebecca Dinh Work Phone: [facility] Work Phone: Start: 12-22-2022 End: 12-22-2022 Dr. Rebecca Dinh Work Phone: [facility] Work Phone: Start: 12-21-2022 End: 12-21-[address] Rebecca Dinh Work Phone: [facility] Work Phone: Start: 12-21-2022 End: 12-21-2022 Dr. Rebecca Dinh Work Phone: [facility] Work Phone: Start: 12-20-2022 End: 12-20-[address] Rebecca Dinh Work Phone: [facility] Work Phone: Start: 12-20-2022 End: 12-20-2022 Dr. Rebecca Dinh Work Phone: [facility] Work Phone: Start: 12-19-2022 End: 12-19-[address] Rebecca Dinh Work Phone: [facility] Work Phone: Start: 12-19-2022 End: 12-19-2022 Dr. Rebecca Dinh Work Phone: [facility] Work Phone: Start: 12-18-2022 End: 12-18-[address] Rebecca Dinh Work Phone: [facility] Work Phone: Start: 12-18-2022 End: 12-18-2022 Dr. Rebecca Dinh Work Phone: [facility] Work Phone: Start: 12-17-2022 End: 12-17-2022 Dr. Rebecca Dinh Work Phone: [facility] Work Phone: Start: 12-16-2022 End: 12-16-2022 Dr. Rebecca Dinh Work Phone: [facility] Work Phone: Start: 12-15-2022 End: 12-15-2022 Dr. Rebecca Dinh Work Phone: [facility] Work Phone: Start: 12-14-2022 End: 12-14-2022 Dr[facility] Start: 12-13-2022 End: 12-13-2022 Dr. [facility] Start: 12-12-2022 End: 12-12-2022 Dr. [facility] Start: 12-11-2022 End: 12-11-2022 Patient encounter procedure Silva Palacios PA-C Work Phone: Internal Medicine [place] Comment on above: Discitis of lumbosac ral region (Primary Dx); Streptococcal bacteremia; Anemia, unspecified type Start: 12-11-2022 End: 12-11-[address] Rebecca Dinh Work Phone: [facility] Work Phone: Start: 12-11-2022 End: 12-11-2022 Dr. Rebecca Din[facility] Start: 12-10-2022 End: 12-10-[address] Rebecca Dinh Work Phone: [facility] Work Phone: Start: 12-10-2022 End: 12-10-2022 Dr. Rebecca Din[facility] Start: 12-09-2022 End: 12-09-[address] Rebecca Dinh Work Phone: [facility] Work Phone: Start: 12-09-2022 End: 12-09-2022 Dr. Rebecca Dinh Work Phone: [facility] Work Phone: Start: 12-08-2022 End: 12-08-[address] Rebecca Dinh Work Phone: [facility] Work Phone: Start: 12-08-2022 End: 12-08-2022 Dr. Rebecca Dinh Work Phone: [facility] Work Phone: Start: 12-07-2022 End: 12-07-[address] Rebecca Dinh Work Phone: [facility] Work Phone: Start: 12-07-2022 End: 12-07-[address] Rebecca Dinh Work Phone: [facility] Work Phone: Start: 12-07-2022 End: 12-07-2022 Dr. Rebecca Dinh Work Phone: [facility] Work Phone: Start: 12-06-2022 End: 12-06-[address] Rebecca Dinh Work Phone: [facility] Work Phone: Start: 12-06-2022 End: 12-06-[address] Rebecca Dinh Work Phone: [facility] Work Phone: Start: 12-06-2022 End: 12-06-2022 Dr. Rebecca Dinh Work Phone: [facility] Work Phone: Start: 12-05-2022 End: 12-05-[address] Rebecca Dinh Work Phone: [facility] Work Phone: Start: 12-05-2022 End: 12-05-[address] Rebecca Dinh Work Phone: [facility] Work Phone: Start: 12-05-2022 End: 12-05-2022 Dr. Rebecca Dinh Work Phone: [facility] Work Phone: Start: 12-04-2022 End: 12-04-[address] [facility] Start: 12-04-2022 End: 12-04-2022 Dr. Rebecca Dinh Work Phone: [facility] Work Phone: Start: 12-03-2022 End: 12-03-[address] Rebecca Dinh Work Phone: [facility] Work Phone: Start: 12-03-2022 End: 12-03-[address] Rebecca Dinh Work Phone: [facility] Work Phone: Start: 12-03-2022 End: 12-03-2022 Dr. Rebecca Dinh Work Phone: [facility] Work Phone: Start: 12-02-2022 End: 12-02-[address] Rebecca Dinh Work Phone: [facility] Work Phone: Start: 12-02-2022 End: 12-02-[address] Rebecca Dinh Work Phone: [facility] Work Phone: Start: 12-02-2022 End: 12-02-2022 Dr. Rebecca Dinh Work Phone: [facility] Work Phone: Start: 12-01-2022 End: 12-01-[address] Rebecca Dinh Work Phone: [facility] Work Phone: Start: 12-01-2022 End: 12-01-[address] Rebecca Dinh Work Phone: [facility] Work Phone: Start: 12-01-2022 End: 12-01-2022 Dr. Rebecca Dinh Work Phone: [facility] Work Phone: Start: 11-30-2022 Non-patient / Non-visit Dr. Piter Dinh Work Phone: [facility] Work Phone: Start: 11-30-2022 Dr. Rebecca powell Work Phone: [facility] Work Phone: Start: 11-29-2022 Non-patient / Non-visit Dr. Piter Dinh Work Phone: [facility] Work Phone: Start: 11-29-2022 Dr. Rebecca powell Work Phone: [facility] Work Phone: Start: 11-29-2022 Non-patient / Non-visit Dr. Piter Dinh Work Phone: [facility] Start: 11-29-2022 Dr. Rebecca powell Work Phone: [facility] Start: 11-28-2022 Non-patient / Non-visit Dr. Piter Dinh Work Phone: [facility] Start: 11-28-2022 Dr. Rebecca powell Work Phone: [facility] Start: 11-28-2022 Non-patient / Non-visit Dr. Piter Dinh Work Phone: [facility] Work Phone: Start: 11-28-2022 Dr. Rebecca powell Work Phone: [facility] Work Phone: Start: 11-27-2022 Non-patient / Non-visit Dr. Piter Dinh Work Phone: [facility] Work Phone: Start: 11-27-2022 Dr. Rebecca powell Work Phone: [facility] Work Phone: Start: 11-27-2022 End: 11-30-2022 Evaluation and management of inpatient Dr. Rebecca Dinh [facility] Work [facility]: Start: 11-27-2022 End: 11-30-2022 Dr. Rebecca Dinh [facility] Work [facility]: Start: 11-26-2022 End: 11-26-[address] Rebecca Dinh Work Phone: [facility] Work Phone: Start: 11-26-2022 End: 11-26-[address] Rebecca Dinh Work Phone: [facility] Work Phone: Start: 11-26-2022 End: 11-26-2022 Dr. Rebecca Dinh Work Phone: [facility] Work Phone: Start: 11-25-2022 End: 11-25-[address] Rebecca Dinh Work Phone: [facility] Work Phone: Start: 11-25-2022 End: 11-25-2022 Patient encounter procedure Silva Palacios PA-C Work Phone: [facility] [place] Comment on above: Discitis of lumbosac ral region (Primary Dx); Streptococcal bacteremia; Upper GI bleed Start: 11-25-2022 End: 11-25-2022 Dr. Rebecca Dinh Work Phone: [facility] Work Phone: Start: 11-19-2022 ambulatory REBECCA DINH Facility:[facility] Start: 11-17-2022 End: 11-17-2022 Emergency department patient visit Dr. Rebecca Dinh Work Phone: [facility] Work Phone: Start: 11-17-2022 End: 11-17-2022 Dr. Rebecca Dinh Work Phone: [facility] Work Phone: Start: 11-14-2022 Non-patient / Non-visit Dr. Piter Dinh Work Phone: [facility] Start: 11-14-2022 End: 11-14-2022 Admission to same day surgery center Dr. Rebecca Dinh Work Phone: [facility] Work Phone: Start: 11-14-2022 End: 11-14-[address] Rebecca Dinh Work Phone: [facility] Work Phone: Start: 11-14-2022 End: 11-14-2022 Dr. Rebecca Dinh Work Phone: [facility] Work Phone: Start: 11-12-2022 ambulatory Rebecca Law Work Phone: Internal Medicine [facility] Start: 11-08-2022 Telephone encounter Rebecca powell MD Work Phone: [facility] [place] Comment on above: Referral Request; Jayne barrettnt Question Start: 11-07-2022 End: 11-07-2022 Orders Only Garth Galaviz MD Work Phone: Cardiology Comment on above: Persistent atrial fi brillation (HCC) (Primary Dx) Persistent atrial fi brillation (HCC) [I48.19] (Primary Dx); Atrial fibrillation, persistent (HCC); Gastrointestinal hemorrhage associated with gastric ulcer Research study patie nt (Primary Dx) Thoracic aortic aneu rysm without rupture, unspecified part (HCC) [I71.20] Start: 11-07-2022 End: 11-07-2022 Patient entered into trial Research Nurse Ctho Main Work Phone: [facility] Start: 11-07-2022 End: 11-07-[address] (I-Stat) Work Phone: [facility] Start: 11-05-2022 Non-patient / Non-visit Dr. Piter Dinh Work Phone: [facility] Start: 11-05-2022 Dr. Rebecca powell Work Phone: [facility] Start: 11-05-2022 Non-patient / Non-visit Dr. Piter Dinh Work Phone: [facility] Work Phone: Start: 11-05-2022 Dr. Rebecca powell Work Phone: [facility] Work Phone: Start: 11-05-2022 Telephone encounter Rebecca powell MD Work Phone: [facility] [place] Comment on above: Recommendation Start: 11-05-2022 Non-patient / Non-visit Dr. Piter Dinh Work Phone: [facility] Start: 11-05-2022 Dr. Rebecca powell Work Phone: [facility] Start: 11-04-2022 Non-patient / Non-visit Dr. Piter Dinh Work Phone: [facility] Start: 11-04-2022 Dr. Rebecca powell Work Phone: [facility] Work Phone: Start: 11-03-2022 Non-patient / Non-visit Dr. Piter Dinh Work Phone: [facility] Start: 11-03-2022 Dr. Rebecca powell Work Phone: [phone] [place] [address] Start: 11-02-2022 Non-patient / Non-visit Dr. Piter Dinh Work Phone: [facility] Start: 11-02-2022 Dr. Rebecca powell Work Phone: [facility] Start: 11-02-2022 Non-patient / Non-visit Dr. Piter Dinh Work Phone: [facility] Start: 11-02-2022 Dr. Rebecca powell Work Phone: [facility] Start: 11-02-2022 Non-patient / Non-visit Dr. Piter Dinh Work Phone: [facility] Work Phone: Start: 11-02-2022 Dr. Rebecca powell Work Phone: [facility] Work Phone: Start: 11-01-2022 End: 11-05-2022 Evaluation and management of inpatient Dr. Rebecca Dinh Work Phone: [facility] Work Phone: Start: 11-01-2022 End: 11-05-2022 Dr. Rebecca Dinh Work Phone: [facility] Work Phone: Start: 10-28-2022 End: 10-28-2022 Patient encounter procedure Silva Palacios PA-C Work Phone: [facility] [place] Comment on above: Acute right-sided lo w back pain without sciatica (Primary Dx) Start: 10-10-2022 End: 10-10-2022 Patient encounter procedure Gian Bear MD Work Phone: [facility] [place] Comment on above: Acute right-sided lo w back pain without sciatica (Primary Dx); Acute upper back pain; Acute neck pain; Anemia, unspecified type; Atrial fibrillation, unspecified type (HCC) Start: 10-05-2022 End: 10-05-2022 Emergency department patient [facility] Dr. Rebecca Dinh [facility] Work Phone: Start: 10-05-2022 End: 10-05-2022 Dr. Rebecca Dinh Work Phone: [facility] Work Phone: Start: 10-04-2022 Telephone encounter Reynaldo bell MD Work Phone: Cardiology Comment on above: Post Dc Program Call - Fyi Start: 08-26-2022 Refill Rebecca Law Work Phone: [facility] [place] Comment on above: Refill Request Start: 08-11-2022 End: 08-11-2022 Non-patient / Non-visit Dr. Rebecca Dinh Work Phone: [facility] Work Phone: Start: 08-11-[address] Rebecca Dinh Work Phone[facility] Work Phone: Start: 08-11-2022 End: 08-11-2022 Dr. Rebecca Dinh Work Phone: [facility] Work Phone: Start: 07-26-2022 End: 07-26-[address] Rebecca Dinh Work Phone: [facility]Laboratory, Specimen Work Phone: Start: 07-22-2022 End: 07-22-[address] Rebecca Dinh Work Phone: [facility] Work Phone: Start: 07-15-2022 Patient encounter procedure Nasim Fleming MD Work Phone: Cardiology Comment on above: Thoracic aortic aneu rysm without rupture, unspecified part (HCC) (Primary Dx); 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, unspecified part (HCC); Examination of participant in clinical trial Start: 07-03-2022 End: 07-03-2022 Patient encounter procedure Rebecca Dinh MD Work Phone: [facility] [place] Comment on above: Medicare annual well ness visit, subsequent (Primary Dx); Anemia, unspecified type; Essential hypertension; Gastroesophageal reflux disease without esophagitis Start: 02-14-2022 End: 02-14-[address] Rebecca Dinh Work Phone: [facility] Work Phone: Start: 02-14-2022 End: 02-14-[address] Rebecca Dinh Work Phone: [facility] Start: 01-17-2022 End: 01-17-[address] Rebecca Dinh Work Phone: [facility] Work Phone: Start: 01-17-2022 End: 01-17-[address] Rebecca Dinh Work Phone: [facility] Start: 01-17-2022 End: 01-17-[address] Rebecca Dinh Work Phone: [facility] [facility] Start: 01-10-2022 Telephone encounter Rebecca powell MD Work Phone: Internal [facility] Comment on above: Release Of Medical R ecords Start: 01-04-2022 Telephone encounter Rebecca powell MD Work Phone: Internal [facility] Comment on above: Results Start: 12-31-2021 End: 12-31-2021 Patient encounter procedure Rebecca Dinh MD Work Phone: Internal [facility] Comment on above: Uncontrolled nonfami lial obstructive sleep apnea (Primary Dx); Mild anemia; Essential hypertension; Vitamin B12 deficiency; Vitamin D deficiency; Prostate cancer screening Start: 12-12-2021 ambulatory Rebecca Law Work Phone: Internal [facility] Start: 11-01-2021 End: 11-01-2021 Patient encounter procedure Armida Long APRN.MAINTENANCE OPERATOR Work Phone: Cardiothoracic Comment on above: S/P ascending aortic aneurysm repair (Primary Dx); Ascending aortic aneurysm (HCC); 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; S/P AVR (aortic valve replacement); S/P TVR (tricuspid valve repair); Aneurysm of subclavian artery (HCC); Disorder of artery or arteriole (HCC) Start: 11-01-2021 End: 11-01-[address] (I-Stat) Work Phone: Radiology Start: 11-01-2021 End: 11-01-2021 Subsequent hospital visit by physician Kaila Main J (I-Stat) Work Phone: Radiology Comment on above: TAA Start: 09-25-2021 Patient encounter procedure Reynaldo Vaughan MD Work Phone: Cardiology Comment on above: Thoracic aortic aneu rysm without rupture (HCC) (Primary Dx); Examination of participant in clinical trial Start: 09-19-2021 Patient encounter procedure Reynaldo Vaughan MD Work Phone: Cardiology Comment on above: Thoracic aortic aneu rysm without rupture (HCC) (Primary Dx); 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 (HCC); Examination of participant in clinical trial Start: 08-17-2021 Refill Rebecca Law Work Phone: [facility] Comment on above: Refill Request Start: 07-05-2021 End: 07-05-[address] Rebecca Dinh Work Phone: [facility] Start: 06-29-2021 End: 06-29-2021 Patient encounter procedure Rebecca Dinh MD Work Phone: [facility] Comment on above: Elevated blood sugar (Primary Dx); Prostate cancer screening; Mixed hyperlipidemia; PARKER (obstructive sleep apnea); Stage 3 chronic kidney disease, unspecified whether stage 3a or 3b CKD (HCC); Essential hypertension Start: 06-25-2021 End: 06-25-[address] Rebecca Dinh Work Phone: [facility] Start: 09-27-2020 Patient entered into trial Rebecca Dinh MD Work Phone: [facility] Start: 09-18-2020 End: 10-01-2020 Patient encounter status Caroline Fischer APRN.LSAT INSTRUCTOR Work Phone: [facility] Start: 11-09-2019 End: 11-09-2019 Patient encounter procedure [facility] Start: 02-27-2015 End: 10-10-2022 Patient encounter procedure Rebecca Dinh MD Work Phone: [facility] Start: 02-24-2012 End: 02-27-2015 Patient encounter procedure Caroline Fischer APRN.LSAT INSTRUCTOR Work Phone: [facility] Procedures Date Procedure Procedure Detail Performing Clinician Start: 07-02-2024 X-ray of chest, PA and lateral views Dr. Rebecca Dinh MD Work Phone: Start: 06-14-2024 Adult depression screening assessment Rebecca Dinh MD Work Phone: Start: 10-09-2023 Ct angio abd&plvis cntrst mtrl w/wo cntrst img Armida Long SOCIAL WORK LECTURER.MAINTENANCE OPERATOR Work Phone: Start: 10-09-2023 Ct angiography chest w/contrast/noncontrast Armida Long SOCIAL WORK LECTURER.MAINTENANCE OPERATOR Work Phone: Start: 10-09-2023 Creatinine [Mass/volume] in Serum or Plasma [facility] Provider Start: 11-29-2022 Plain chest X-ray Dr. Rebecca iDnh Work Phone: Start: 11-28-2022 Bacteria identified in Blood by Culture Dr. Rebecca Dinh Work Phone: Start: 11-28-2022 Dr. Rebecca Dinh Work Phone: Start: 11-27-2022 SARS-CoV-2 & FLU Antigen (Rapid) Dr. David Dinh Work Phone: Start: 11-27-[address] Rebecca Dinh Work Phone: Start: 11-27-2022 Dr. Rebecca Dinh Work Phone: Start: 11-27-2022 MRI of lumbar spine with contrast Dr. Piter Dinh Work Phone: Start: 11-27-2022 Plain chest X-ray Dr. Rebecca Dinh Work Phone: Start: 11-26-2022 Bacteria Detection (PCR) Dr. Rebecca haines Work Phone: Start: 11-26-2022 Bacteria identified in Blood by Culture Dr. Rebecca Dnih Work Phone: Start: 11-26-2022 Dr. Rebecca Dinh Work Phone: Start: 11-14-[address] Rebecca Dinh Work Phone: Start: 11-14-[address] Rebecca Dinh Work Phone: Start: 11-07-2022 Ct angio abd&plvis cntrst mtrl w/wo cntrst img Nasim Fleming MD Work Phone: Start: 11-07-2022 Ct angiography chest w/contrast/noncontrast Nasim Fleming MD Work Phone: Start: 11-05-2022 Bacteria identified in Blood by Culture Dr. Rebecca Dinh Work Phone: Start: 11-05-2022 Dr. Rebecca Dinh Work Phone: Start: 11-03-[address] Rebecca simmons Work Phone: Start: 11-02-[address] Rebecca Dinh Work Phone: Start: 11-01-2022 CT of abdomen and pelvis without contrast Dr. Rebecca Dinh Work Phone: Start: 11-01-2022 Plain chest X-ray Dr. Rebecca Dinh Work Phone: Start: 11-01-2022 Measurement of occult blood in stool specimen using immunoassay Dr. Rebecca Dinh Work Phone: Start: 10-05-2022 Plain chest X-ray Dr. Rebecca Dinh Work Phone: Start: 10-05-2022 X-ray of lumbar spine, two or three views Dr. Rebecca Dinh Work Phone: Start: 11-01-2021 Ct angio abd&plvis cntrst mtrl w/wo cntrst img Reynaldo Vaughan MD Work Phone: Start: 11-01-2021 Ct angiography chest w/contrast/noncontrast Reynaldo Vaughan MD Work Phone: Start: 11-01-2021 Creatinine [Mass/volume] in Serum or Plasma [facility] Provider Start: 02-15-2021 Adult depression screening assessment Rebecca Dinh MD Work Phone: Plan of Treatment Date Care Activity Detail Author Start: 06-09-2027 Diabetes Screening Diabetes Screening [facility] Start: 07-29-2026 Diabetes Screening Diabetes Screening [facility] Start: 07-10-2026 Diabetes Screening Diabetes Screening [facility] Start: 01-18-2026 Diabetes Screening Diabetes Screening [facility] Start: 09-22-2025 DIABETES SCREEN DIABETES SCREEN [facility] Start: 09-22-2025 Diabetes Screening Diabetes Screening [facility] Start: 09-22-2025 Medicare Annual Wellness Visit Medicare Annual Wellness Visit [facility] Start: 06-14-2025 Anxiety Screening Anxiety Screening [facility] Start: 06-14-2025 Depression Screening Depression Screening [facility] Start: 01-12-2025 End: 01-12-2025 ambulatory 01/12/2025 4:30 PM EST Results Only [facility] [address] [place] [address] q6mo CBC/Iron studies [facility] Comment on above: q6mo CBC/Iron studies Start: 01-12-2025 Covid-19 Vaccine ( season) Covid-19 Vaccine ( season) [facility] Comment on above: Postponed from 11/09/2023 (Declined at t his time) Start: 01-12-2025 RSV Vaccine (1 - 1-dose 75+ series) RSV Vaccine (1 - 1-dose 75+ series) [facility] Comment on above: Postponed from 2017 (Declined at t his time) Start: 12-31-2024 DIABETES SCREEN DIABETES SCREEN [facility] Start: 12-23-2024 End: 12-23-2024 Patient encounter procedure 12/23/2024 2:20 PM EDT Office Visit Internal Medicine [facility] [address] [place] [address] Nicolle Worley APRN.LSAT INSTRUCTOR [address] [place] [address] 3 mth follow up [facility] Comment on above: 3 mth follow up Start: 11-08-2024 Influenza vaccination [facility] Start: 11-04-2024 12 Lead EKG performed by BMS 12 Lead EKG performed by BMS [facility] Start: 11-04-2024 Evaluation of diagnostic study results [facility] Start: 09-22-2024 End: 09-22-2024 Patient encounter procedure [facility] Comment on above: Medicare Wellness Start: 09-17-2024 End: 09-17-2024 Patient encounter procedure 09/17/2024 2:00 PM EDT Office Visit Internal Medicine [place] [address] [place] [address] Rebecca Dinh MD [address] [place] [address] Medicare Wellness [facility] Comment on above: Medicare Wellness Start: 09-06-2024 Evaluation of diagnostic study results [facility] Start: 09-06-2024 Influenza vaccination Influenza Vaccine (#1) [facility] Comment on above: Postponed from 11/09/2023 (Declined at t his time) Start: 08-09-2024 End: 08-09-2024 ambulatory 08/09/2024 4:30 PM EDT Results Only [facility] [address] [place] [address] q1mo CBC/Iron studies/Retic count [facility] Comment on above: q1mo CBC/Iron studies/Retic count Start: 08-03-2024 End: 08-03-2024 Patient encounter procedure 08/03/2024 4:00 PM EDT Office Visit Urology [address] [place] [address] Almita Phillips PA-C [address] [place] [address] Testicular mass [N50.89] Urology Comment on above: Testicular mass [N50.89] Start: 07-12-2024 End: 07-12-2024 ambulatory 07/12/2024 4:10 PM EDT Visit (SP) Office Hematology/Oncology [address] [place] [address] Victor Manuel Olson DO [address] [place] [address] 6 MO OV/LABS 07/07* Hematology/Oncology Comment on above: 6 MO OV/LABS 07/07* Start: 07-09-2024 End: 07-09-2024 ambulatory 07/09/2024 4:10 PM EDT Visit (SP) Office Hematology/Oncology [address] [place] [address] Victor Manuel Olson DO [address] [place] [address] 6 MO OV/LABS 01/06* Hematology/Oncology Comment on above: 6 MO OV/LABS 01/06* Start: 07-08-2024 Covid-19 Vaccine () Covid-19 Vaccine () [facility] Comment on above: Postponed from 11/08/2022 (Declined at t his time) Start: 07-07-2024 End: 07-07-2024 ambulatory 07/07/2024 4:00 PM EDT Results Only [facility] Garciawn [facility] [address] [place] [address] CBC/IRON STUDIES* [place] [address] [facility] Comment on above: CBC/IRON STUDIES* Start: 06-29-2024 DIABETES SCREEN DIABETES SCREEN [facility] Start: 06-24-2024 [facility] Start: 06-18-2024 End: 06-18-2024 Patient encounter procedure 06/18/2024 2:30 PM EDT Appointment Radiology [address] [place] [id number] Testicular mass [N50.89] Radiology Comment on above: Testicular mass [N50.89] Start: 06-14-2024 End: 06-14-2024 Patient encounter procedure 06/14/2024 2:40 PM EDT Office Visit Internal Medicine [facility] [address] [place] [address] Rebecca Dinh MD [address] [place] [address] 4 month follow up [facility] Comment on above: 4 month follow up Start: 06-14-2024 End: 09-13-2024 PSA/PROSTATE SPECIFIC ANTIGEN SCREENING [facility] Work Phone: Comment on above: Expected: 06/14/2024, Expires: Start: 06-12-2024 End: 06-12-2024 ambulatory 06/12/2024 7:45 AM EDT Results Only [facility] Draw Station [address] [place] [address] [facility] Start: 06-01-2024 End: 08-31-2024 Basic metabolic 2000 panel - Serum or Plasma BASIC METABOLIC PANEL Lab Routine CKD (chronic kidney disease) stage 3, GFR 30-59 ml/min ([facility]) Expected: 06/01/2024, Expires: 08/31/2024 [facility] Work Phone: Comment on above: Expected: 06/01/2024, Expires: Start: 04-10-2024 End: 07-10-2024 CBC W Auto Differential panel - Blood COMPLETE BLOOD COUNT AND DIFFERENTIAL Lab Routine Iron deficiency anemia due to chronic blood loss Expected: 04/10/2024 (Approximate), Expires: 07/10/2024 [facility] Work Phone: Comment on above: Expected: 04/10/2024 (Approximate), Expi res: 07/10/2024 Start: 04-10-2024 End: 07-10-2024 Ferritin [Mass/volume] in Serum or Plasma FERRITIN Lab Routine Iron deficiency anemia due to chronic blood loss Expected: 04/10/2024 (Approximate), Expires: 07/10/2024 [facility] Comment on above: Expected: 04/10/2024 (Approximate), Expi res: 07/10/2024 Start: 04-10-2024 End: 07-10-2024 Iron and Iron binding capacity panel - Serum or Plasma IRON AND TIBC Lab Routine Iron deficiency anemia due to chronic blood loss Expected: 04/10/2024 (Approximate), Expires: 07/10/2024 [facility] Comment on above: Expected: 04/10/2024 (Approximate), Expi res: 07/10/2024 Start: 03-10-2024 Advance Directive Discussion Advance Directive Discussion [facility] Start: 02-16-2024 DIABETES SCREEN DIABETES SCREEN [facility] Start: 02-05-2024 BP Controlled (<130/80) BP Controlled (<130/80) [facility] in Start: 01-24-2024 Annual PCP Team Chronic Disease Visit Annual PCP Team Chronic Disease Visit [facility] Start: 01-24-2024 BP Controlled (<130/80) BP Controlled (<130/80) [facility] Start: 01-19-2024 Creatinine measurement Serum Creatinine [facility] Start: 01-19-2024 Serum Creatinine Serum Creatinine [facility] Start: 01-13-2024 End: 01-13-2024 Patient encounter procedure 01/13/2024 2:20 PM EST Office Visit Internal Medicine [facility] [address] [place] [address] Rebecca Dinh MD [address] [place] [address] wellness [facility] Medicine [facility] Comment on above: wellness Start: 01-09-2024 End: 01-09-2024 ambulatory 01/09/2024 1:30 PM EDT Visit (SP) Office Hematology/Oncology [address] [place] [address] Patricia Sanders [address] [place] [address] 3 MO OV/LABS 02/06* Hematology/Oncology Comment on above: 3 MO OV/LABS 02/06* Start: 01-07-2024 End: 01-07-2024 ambulatory 01/07/2024 3:00 PM EDT Results Only Tessa Corbin [facility] [address] [place] [address] CBC/IRON STUDIES* Tessa Corbin [facility] Comment on above: CBC/IRON STUDIES* Start: 12-30-2023 End: 03-30-2024 Alanine aminotransferase [Enzymatic activity/volume] in Serum or Plasma ALANINE AMINOTRANSFERASE / SGPT Lab Routine Medication management Expected: 12/30/2023, Expires: 03/30/2024 [facility] Comment on above: Expected: 12/30/2023, Expires: Start: 12-30-2023 End: 03-30-2024 Aspartate aminotransferase [Enzymatic activity/volume] in Serum or Plasma ASPARTATE AMINOTRANSFERASE/SGOT Lab Routine Medication management Expected: 12/30/2023, Expires: 03/30/2024 [facility] Comment on above: Expected: 12/30/2023, Expires: Start: 12-30-2023 End: 03-30-2024 Lipid 1996 panel - Serum or Plasma LIPID PANEL BASIC Lab Routine Mixed hyperlipidemia Expected: 12/30/2023, Expires: 03/30/2024 [facility] Work Phone: Comment on above: Expected: 12/30/2023, Expires: Start: 12-30-2023 End: 03-30-2024 Magnesium [Mass/volume] in Serum or Plasma MAGNESIUM Lab Routine Medication management Expected: 12/30/2023, Expires: 03/30/2024 [facility] Comment on above: Expected: 12/30/2023, Expires: Start: 12-30-2023 End: 03-30-2024 Thyrotropin [Units/volume] in Serum or Plasma THYROID STIMULATING HORMONE Lab Routine Medication management Expected: 12/30/2023, Expires: 03/30/2024 [facility] Comment on above: Expected: 12/30/2023, Expires: Start: 12-12-2023 Annual PCP Team Chronic Disease Visit Annual PCP Team Chronic Disease Visit [facility] Start: 12-12-2023 BP Controlled (<130/80) BP Controlled (<130/80) [facility] Start: 11-26-2023 Annual PCP Team Chronic Disease Visit Annual PCP Team Chronic Disease Visit [facility] Start: 11-26-2023 BP Controlled (<130/80) BP Controlled (<130/80) [facility] in Start: 11-09-2023 Covid-19 Vaccine ( season) Covid-19 Vaccine ( season) [facility] Start: 11-09-2023 Influenza vaccination [facility] Start: 10-29-2023 ANNUAL PCP TEAM CHRONIC DISEASE VISIT ANNUAL PCP TEAM CHRONIC DISEASE VISIT [facility] Start: 10-29-2023 BP CONTROLLED (<130/80) BP CONTROLLED (<130/80) [facility] in Start: 10-11-2023 ANNUAL PCP TEAM CHRONIC DISEASE VISIT ANNUAL PCP TEAM CHRONIC DISEASE VISIT [facility] Start: 10-11-2023 BP CONTROLLED (<130/80) BP CONTROLLED (<130/80) [facility] Start: 10-09-2023 End: 10-09-2023 Nursing evaluation of patient and report 10/09/2023 12:45 PM EDT Nurse Visit Cardiothoracic [address], [place] [id number] Main, Research Nurse [address] [place], [place] [id number] B-SAFER Study Cardiothoracic Comment on above: B-SAFER Study Start: 10-09-2023 End: 10-09-2023 Patient encounter procedure Vascular Medicine Comment on above: B-SAFER Study Start: 10-08-2023 End: 10-08-2023 ambulatory Hematology/Oncology Comment on above: IRON SUCROSE/D5-5/MDCR* 2nd Start: 10-06-2023 End: 10-06-2023 ambulatory Hematology/Oncology Comment on above: IRON SUCROSE/D4-5/MDCR* 2nd Start: 10-01-2023 End: 10-01-2023 ambulatory Hematology/Oncology Comment on above: IRON SUCROSE/D3-5/MDCR* 2nd Start: 09-29-2023 End: 09-29-2023 ambulatory Hematology/Oncology Comment on above: IRON SUCROSE/D2-5/MDCR* 2nd Start: 09-24-2023 End: 09-24-2023 ambulatory 09/24/2023 3:30 PM EDT Visit (SP) Office Hematology/Oncology [address] [place] [id number] START IRON SUCROSE/D1-5/MDCR* Hematology/Oncology Comment on above: START IRON SUCROSE/D1-5/MDCR* Start: 09-23-2023 SERUM CREATININE SERUM CREATININE [facility] Start: 09-22-2023 End: 09-22-2023 ambulatory 09/22/2023 2:30 PM EDT Visit (SP) Office Hematology/Oncology [address] [place] [id number] Victor Manuel Olson, [address] [place] [id number] 3MOV/LABS07/8* Hematology/Oncology Comment on above: 3MOV/LABS07/8* Start: 09-15-2023 End: 09-15-2023 ambulatory 09/15/2023 3:00 PM EDT Results Only Tessa Garciawn [facility] [address] [place] [id number] CBC, iron studies [facility] Comment on above: CBC, iron studies Start: 07-14-2023 HEMOGLOBIN/HEMATOCRIT HEMOGLOBIN/HEMATOCRIT [facility] Start: 07-09-2023 End: 10-08-2023 Basic metabolic 2000 panel - Serum or Plasma BASIC METABOLIC PANEL Lab Routine Stage 3 chronic kidney disease, unspecified whether stage 3a or 3b CKD (HCC) Expected: 07/09/2023, Expires: 10/08/2023 [facility] Work Phone: Comment on above: Expected: 07/09/2023, Expires: Start: 07-09-2023 End: 10-08-2023 PSA/PROSTATE SPECIFIC ANTIGEN SCREENING PSA/PROSTATE SPECIFIC ANTIGEN SCREENING Lab Routine Screening for prostate cancer Expected: 07/09/2023, Expires: 10/08/2023 [facility] Comment on above: Expected: 07/09/2023, Expires: Start: 07-04-2023 ANNUAL PCP TEAM CHRONIC DISEASE VISIT ANNUAL PCP TEAM CHRONIC DISEASE VISIT [facility] Start: 07-04-2023 BP CONTROLLED (<130/80) BP CONTROLLED (<130/80) [facility] Start: 07-04-2023 Medicare Annual Wellness Visit Medicare Annual Wellness Visit [facility] Start: 06-12-2023 End: 09-11-2023 CBC W Auto Differential panel - Blood CBC + DIFF Lab STAT 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 Expected: 06/12/2023, Expires: 09/11/2023 [facility] Work Phone: Comment on above: Expected: 06/12/2023, Expires: Start: 06-12-2023 End: 09-11-2023 Ferritin [Mass/volume] in Serum or Plasma FERRITIN BLD Lab Routine 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 Expected: 06/12/2023, Expires: 09/11/2023 [facility] Work Phone: Comment on above: Expected: 06/12/2023, Expires: Start: 06-12-2023 End: 09-11-2023 Iron and Iron binding capacity panel - Serum or Plasma IRON + TIBC Lab Routine 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 Expected: 06/12/2023, Expires: 09/11/2023 [facility] Work Phone: Comment on above: Expected: 06/12/2023, Expires: Start: 06-12-2023 End: 09-11-2023 RETIC COUNT RETIC COUNT Lab Routine 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 Expected: 06/12/2023, Expires: 09/11/2023 [facility] Work Phone: Comment on above: Expected: 06/12/2023, Expires: Start: 03-10-2023 Advance Directive Discussion Advance Directive Discussion [facility] Start: 03-10-2023 Behavioral Health Screening Behavioral Health Screening [facility] Start: 02-19-2023 End: 05-21-2023 CBC W Auto Differential panel - Blood CBC + DIFF Lab STAT 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 Expected: 02/19/2023, Expires: 05/21/2023 [facility] Work Phone: Comment on above: Expected: 02/19/2023, Expires: 4 Start: 02-19-2023 End: 05-21-2023 Ferritin [Mass/volume] in Serum or Plasma FERRITIN BLD Lab Routine 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 Expected: 02/19/2023, Expires: 05/21/2023 [facility] Work Phone: Comment on above: Expected: 02/19/2023, Expires: 4 Start: 02-19-2023 End: 05-21-2023 Iron and Iron binding capacity panel - Serum or Plasma IRON + TIBC Lab Routine 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 Expected: 02/19/2023, Expires: 05/21/2023 [facility] Work Phone: Comment on above: Expected: 02/19/2023, Expires: 4 Start: 02-19-2023 End: 05-21-2023 RETIC COUNT RETIC COUNT Lab Routine 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 Expected: 02/19/2023, Expires: 05/21/2023 [facility] Work Phone: Comment on above: Expected: 02/19/2023, Expires: 4 Start: 01-11-2023 End: 03-13-2023 CBC panel - Blood by Automated count CBC Lab Routine Anemia, unspecified type Expected: 01/11/2023, Expires: 03/13/2023 [facility] Work Phone: Comment on above: Expected: 01/11/2023, Expires: 4 Start: 01-05-2023 Peripherally inserted central catheter care [facility] Start: 01-04-2023 Peripherally inserted central catheter care [facility] Start: 01-02-2023 Iv infusion therapy/prophylaxis /dx 1st to 1 hr [facility] Start: 12-31-2022 ANNUAL PCP TEAM CHRONIC DISEASE VISIT ANNUAL PCP TEAM CHRONIC DISEASE VISIT [facility] Start: 12-31-2022 HEMOGLOBIN/HEMATOCRIT HEMOGLOBIN/HEMATOCRIT [facility] Start: 12-31-2022 SERUM CREATININE SERUM CREATININE [facility] Start: 12-30-2022 Iv infusion therapy/prophylaxis /dx 1st to 1 hr [facility] Start: 12-28-2022 Iv infusion therapy/prophylaxis /dx 1st to 1 hr [facility] Start: 12-24-2022 Iv infusion therapy/prophylaxis /dx 1st to 1 hr [facility] Start: 12-23-2022 Iv infusion therapy/prophylaxis /dx 1st to 1 hr [facility] Start: 12-22-2022 Following clinical pathway protocol [facility] Start: 12-22-2022 Peripherally inserted central catheter care [facility] Start: 12-20-2022 Iv infusion therapy/prophylaxis /dx 1st to 1 hr [facility] Start: 12-18-2022 Iv infusion therapy/prophylaxis /dx 1st to 1 hr [facility] Start: 12-15-2022 Iv infusion therapy/prophylaxis /dx 1st to 1 hr [facility] Start: 12-15-2022 Peripherally inserted central catheter care [facility] Start: 12-14-2022 Peripherally inserted central catheter care [facility] Start: 12-13-2022 Iv infusion therapy/prophylaxis /dx 1st to 1 hr [facility] Start: 12-11-2022 End: 02-10-2023 Ferritin [Mass/volume] in Serum or Plasma FERRITIN BLD Lab Routine Anemia, unspecified type Expected: 12/11/2022, Expires: 02/10/2023 [facility] Work Phone: Comment on above: Expected: 12/11/2022, Expires: 3 Start: 12-11-2022 End: 02-10-2023 Iron and Iron binding capacity panel - Serum or Plasma IRON + TIBC Lab Routine Anemia, unspecified type Expected: 12/11/2022, Expires: 02/10/2023 [facility] Work Phone: Comment on above: Expected: 12/11/2022, Expires: 3 Start: 12-08-2022 Following clinical pathway protocol [facility] Start: 12-08-2022 Peripherally inserted central catheter care [facility] Start: 12-07-2022 Following clinical pathway protocol [facility] Start: 12-06-2022 Iv infusion therapy/prophylaxis /dx 1st to 1 hr [facility] Start: 12-05-2022 Iv infusion therapy/prophylaxis /dx 1st to 1 hr [facility] Start: 12-04-2022 Iv infusion therapy/prophylaxis /dx 1st to 1 hr [facility] Start: 12-02-2022 Iv infusion therapy/prophylaxis /dx 1st to 1 hr [facility] Start: 12-01-2022 Following clinical pathway protocol [facility] Start: 12-01-2022 Peripherally inserted central catheter care [facility] Start: 12-01-2022 Blood chemistry [facility] Start: 11-30-2022 Patient discharge [facility] Start: 11-28-2022 [facility] Start: 11-28-2022 Bacteria identified in Blood by Culture Blood Culture [facility] Start: 11-28-2022 Blood culture [facility] Start: 11-27-2022 Bacteria Detection (PCR) Bacteria Detection (PCR) [facility] Start: 11-27-2022 Bacteria identified in Blood by Culture Blood Culture [facility] Start: 11-27-2022 Bacteria identified in Urine by Culture Urine Culture [facility] Start: 11-27-2022 Following clinical pathway protocol [facility] Start: 11-27-2022 Ambulation without limitation [facility] Start: 11-27-2022 Assessment of risk of venous thromboembolism [facility] Start: 11-27-2022 Catheterization of vein [facility] Start: 11-27-2022 Consultation [facility] Start: 11-27-2022 Insertion of catheter into peripheral vein [facility] Start: 11-27-2022 Providing care according to standard [facility] Start: 11-27-2022 Referral to occupational therapist [facility] Start: 11-27-2022 Referral to service [facility] Start: 11-27-2022 Verification routine [facility] Start: 11-27-2022 Admission procedure [facility] Start: 11-27-2022 End: 11-27-2022 [facility] Start: 11-27-2022 End: 11-27-2022 Blood culture [facility] Start: 11-26-2022 Bacteria identified in Blood by Culture Blood Culture [facility] Start: 11-26-2022 Blood culture [facility] Start: 11-25-2022 End: 01-25-2023 CBC W Auto Differential panel - Blood CBC + DIFF Lab Routine Discitis of lumbosacral region Upper GI bleed Streptococcal bacteremia Expected: 11/25/2022, Expires: 01/25/2023 [facility] Work Phone: Comment on above: Expected: 11/25/2022, Expires: 3 Start: 11-25-2022 End: 01-25-2023 Comprehensive metabolic 2000 panel - Serum or Plasma COMP METABOLIC PANEL Lab Routine Discitis of lumbosacral region Streptococcal bacteremia Expected: 11/25/2022, Expires: 01/25/2023 [facility] Work Phone: Comment on above: Expected: 11/25/2022, Expires: 3 Start: 11-14-2022 Colonoscopy flx dx w/collj spec when pfrmd [facility] Start: 11-14-2022 Patient discharge [facility] Start: 11-12-2022 End: 01-12-2023 Alanine aminotransferase [Enzymatic activity/volume] in Serum or Plasma ALT/SGPT Lab Routine Medication management Expected: 11/12/2022, Expires: 01/12/2023 [facility] Work Phone: Comment on above: Expected: 11/12/2022, Expires: 3 Start: 11-12-2022 End: 01-12-2023 Aspartate aminotransferase [Enzymatic activity/volume] in Serum or Plasma AST/SGOT BLD Lab Routine Medication management Expected: 11/12/2022, Expires: 01/12/2023 [facility] Work Phone: Comment on above: Expected: 11/12/2022, Expires: 3 Start: 11-12-2022 End: 01-12-2023 Thyrotropin [Units/volume] in Serum or Plasma TSH BLD Lab Routine Medication management Expected: 11/12/2022, Expires: 01/12/2023 [facility] Work Phone: Comment on above: Expected: 11/12/2022, Expires: 3 Start: 11-08-2022 Covid-19 Vaccine ( season) Covid-19 Vaccine ( season) [facility] Start: 11-08-2022 Influenza vaccination [facility] Start: 11-07-2022 End: 01-07-2023 CREATININE BLD CREATININE BLD Lab Routine Thoracic aortic aneurysm without rupture, unspecified part (HCC) Examination of participant in clinical trial Expected: 11/07/2022, Expires: 01/07/2023 [facility] Work Phone: Comment on above: Expected: 11/07/2022, Expires: 3 Start: 11-07-2022 End: 08-14-2023 Ct angio abd&plvis cntrst mtrl w/wo cntrst img CTA ABD/PEL WO/W IVCON Radiology Routine 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, unspecified part (HCC) Thoracic aortic aneurysm without rupture, unspecified part (HCC) Examination of participant in clinical trial Expected: 11/07/2022, Expires: 08/14/2023 [facility] Work Phone: Comment on above: Expected: 11/07/2022, Expires: 4 Start: 11-07-2022 End: 08-14-2023 Ct angiography chest w/contrast/noncontrast CTA CHEST (NONGATED) WO/W IVCON Radiology Routine Thoracic aortic aneurysm without rupture, unspecified part (HCC) Examination of participant in clinical trial Expected: 11/07/2022, Expires: 08/14/2023 [facility] Work Phone: Comment on above: Expected: 11/07/2022, Expires: 4 Start: 11-07-2022 End: 07-16-2023 Echocardiography ECHO Cardiology Routine Thoracic aortic aneurysm without rupture, unspecified part (HCC) Examination of participant in clinical trial Expected: 11/07/2022, Expires: 07/16/2023 [facility] Work Phone: Comment on above: Expected: 11/07/2022, Expires: Start: 11-05-2022 Patient discharge [facility] Start: 11-05-2022 Bacteria identified in Blood by Culture Blood Culture [facility] Start: 11-05-2022 End: 11-05-2022 Blood culture [facility] Start: 11-05-2022 [facility] Start: 11-04-2022 Consultation [facility] Start: 11-03-2022 Care planning and problem solving actions [facility] Start: 11-02-2022 Catheterization of vein [facility] Start: 11-02-2022 End: 11-02-2022 Administration of blood product [facility] Start: 11-02-2022 Care planning and problem solving actions [facility] Start: 11-02-2022 Referral to gastroenterology service [facility] Start: 11-02-2022 Blood culture [facility] Start: 11-01-2022 End: 11-02-2022 [facility] Start: 11-01-2022 Following clinical pathway protocol [facility] Start: 11-01-2022 Assessment of risk of venous thromboembolism [facility] Start: 11-01-2022 Catheterization of vein [facility] Start: 11-01-2022 Continuous positive airway pressure ventilation treatment [facility] Start: 11-01-2022 Insertion of catheter into peripheral vein [facility] Start: 11-01-2022 Measuring intake and output [facility] Start: 11-01-2022 Oxygen therapy [facility] Start: 11-01-2022 Providing care according to standard [facility] Start: 11-01-2022 Provision of activity privileges [facility] Start: 11-01-2022 Referral to occupational therapist [facility] Start: 11-01-2022 Referral to service [facility] Start: 11-01-2022 Admission procedure [facility] Start: 11-01-2022 BP CONTROLLED (<130/80) BP CONTROLLED (<130/80) [facility] in Start: 07-03-2022 End: 09-02-2022 CBC W Auto Differential panel - Blood CBC + DIFF Lab Routine Anemia, unspecified type Expected: 07/03/2022, Expires: 09/02/2022 [facility] Work Phone: Comment on above: Expected: 07/03/2022, Expires: 3 Start: 07-03-2022 End: 09-02-2022 Ferritin [Mass/volume] in Serum or Plasma FERRITIN BLD Lab Routine Anemia, unspecified type Expected: 07/03/2022, Expires: 09/02/2022 [facility] Work Phone: Comment on above: Expected: 07/03/2022, Expires: 3 Start: 07-03-2022 End: 09-02-2022 Iron and Iron binding capacity panel - Serum or Plasma IRON + TIBC Lab Routine Anemia, unspecified type Expected: 07/03/2022, Expires: 09/02/2022 [facility] Work Phone: Comment on above: Expected: 07/03/2022, Expires: 3 Start: 06-29-2022 ANNUAL PCP TEAM CHRONIC DISEASE VISIT ANNUAL PCP TEAM CHRONIC DISEASE VISIT [facility] Start: 06-29-2022 HEMOGLOBIN/HEMATOCRIT HEMOGLOBIN/HEMATOCRIT [facility] Start: 03-11-2022 COVID-19 VACCINE (#1) COVID-19 VACCINE (#1) [facility] Comment on above: Postponed from 1947 (Declined at t his time) Postponed from 10/02 (Declined at this time) Start: 03-11-2022 COVID-19 VACCINE (1) COVID-19 VACCINE (1) [facility] Comment on above: Postponed from 1947 (Declined at t his time) Start: 03-10-2022 ADVANCE DIRECTIVE DISCUSSION ADVANCE DIRECTIVE DISCUSSION [facility] Start: 02-15-2022 Adult depression screening assessment DEPRESSION SCREENING [facility] Start: 02-15-2022 BP CONTROLLED (<130/80) BP CONTROLLED (<130/80) [facility] Start: 02-15-2022 HEMOGLOBIN/HEMATOCRIT HEMOGLOBIN/HEMATOCRIT [facility] Start: 02-15-2022 SERUM CREATININE SERUM CREATININE [facility] Start: 12-31-2021 End: 03-02-2022 25-hydroxyvitamin D3 [Mass/volume] in Serum or Plasma [facility] Work Phone: Comment on above: Expected: 12/31/2021, Expires: 2 Start: 12-31-2021 End: 03-02-2022 Basic metabolic 2000 panel - Serum or Plasma [facility] Work Phone: Comment on above: Expected: 12/31/2021, Expires: 2 Start: 12-31-2021 End: 03-02-2022 CBC W Auto Differential panel - Blood [facility] Work Phone: Comment on above: Expected: 12/31/2021, Expires: 2 Start: 12-31-2021 End: 03-02-2022 Cobalamin (Vitamin B12) [Mass/volume] in Serum or Plasma [facility] Work Phone: Comment on above: Expected: 12/31/2021, Expires: 2 Start: 12-31-2021 End: 03-02-2022 PSA/PROSTSPECAG SCRN [facility] Work Phone: Comment on above: Expected: 12/31/2021, Expires: 2 Start: 12-12-2021 End: 02-11-2022 Renal function 2000 panel - Serum or Plasma RENAL FUNCTION PANEL Lab Routine CKD (chronic kidney disease) stage 3, GFR 30-59 ml/min ([facility]) Expected: 12/12/2021, Expires: 02/11/2022 [facility] Work Phone: Comment on above: Expected: 12/12/2021, Expires: 2 Start: 12-12-2021 End: 02-11-2022 SCHEDULE LAB TESTING SCHEDULE LAB TESTING Lab Routine Expected: 12/12/2021, Expires: 02/11/2022 [facility] Work Phone: Comment on above: Expected: 12/12/2021, Expires: 2 Start: 11-08-2021 Influenza vaccination [facility] Start: 11-01-2021 End: 01-01-2022 CREATININE BLD CREATININE BLD Lab Routine Thoracic aortic aneurysm without rupture (HCC) Examination of participant in clinical trial Expected: 11/01/2021, Expires: 01/01/2022 [facility] Work Phone: Comment on above: Expected: 11/01/2021, Expires: 2 Start: 11-01-2021 End: 10-19-2022 Ct angio abd&plvis cntrst mtrl w/wo cntrst img CTA ABD/PEL WO/W IVCON Radiology Routine 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 (HCC) Thoracic aortic aneurysm without rupture (HCC) Examination of participant in clinical trial Expected: 11/01/2021, Expires: 10/19/2022 [facility] Work Phone: Comment on above: Expected: 11/01/2021, Expires: 3 Start: 11-01-2021 End: 10-19-2022 Ct angiography chest w/contrast/noncontrast CTA CHEST (NONGATED) WO/W IVCON Radiology Routine Thoracic aortic aneurysm without rupture (HCC) Examination of participant in clinical trial Expected: 11/01/2021, Expires: 10/19/2022 [facility] Work Phone: Comment on above: Expected: 11/01/2021, Expires: 3 Start: 11-01-2021 End: 09-25-2022 Echocardiography ECHO Cardiology Routine Thoracic aortic aneurysm without rupture (HCC) Examination of participant in clinical trial Expected: 11/01/2021, Expires: 09/25/2022 [facility] Work Phone: Comment on above: Expected: 11/01/2021, Expires: 3 Start: 06-29-2021 End: 08-29-2021 CBC W Auto Differential panel - Blood [facility] Work Phone: Comment on above: Expected: 06/29/2021, Expires: 2 Start: 06-29-2021 End: 08-29-2021 Hemoglobin A1c/Hemoglobin.total in Blood [facility] Work Phone: Comment on above: Expected: 06/29/2021, Expires: 2 Start: 06-29-2021 End: 08-29-2021 PSA/PROSTSPECAG SCRN [facility] Work Phone: Comment on above: Expected: 06/29/2021, Expires: 2 Start: 03-10-2021 ADVANCE DIRECTIVE DISCUSSION ADVANCE DIRECTIVE DISCUSSION [facility] Start: 03-10-2021 DEPRESSION ASSESSMENT DEPRESSION ASSESSMENT [facility] Start: 11-07-2018 Urine microalbumin profile [facility] Start: 2017 RSV Vaccine (1 - 1-dose 75+ series) RSV Vaccine (1 - 1-dose 75+ series) [facility] Start: 02-08-2013 SHINGRIX VACCINE (2 of 3) SHINGRIX VACCINE (2 of 3) [facility] Start: 2002 RSV Vaccine (1 - 1-dose 60+ series) RSV Vaccine (1 - 1-dose 60+ series) [facility] Start: 1960 Anxiety Screening Anxiety Screening [facility] Start: 1960 Depression Screening Depression Screening [facility] Start: 1942 COVID-19 VACCINE (#1) COVID-19 VACCINE (#1) [facility] Complete blood count [facility] Comprehensive metabo lic 2000 panel - Serum or Plasma [facility] End: 12-01-2022 Ct angio abd&plvis cntrst mtrl w/wo cntrst img CTA ABD/PEL WO/W IVCON Radiology Routine S/P ascending aortic aneurysm repair Ascending aortic aneurysm (HCC) 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 S/P AVR (aortic valve replacement) 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 artery (HCC) Disorder of artery or arteriole (HCC) 1 Occurrences starting 11/01/2021 until 12/01/2022 [facility] Work Phone: Comment on above: 1 Occurrences starting 11/01/2021 until 12/01/2022 End: 12-01-2022 Ct angiography chest w/contrast/noncontrast CTA CHEST (NONGATED) WO/W IVCON Radiology Routine S/P ascending aortic aneurysm repair Ascending aortic aneurysm (HCC) 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 S/P AVR (aortic valve replacement) 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 artery (HCC) Disorder of artery or arteriole (HCC) 1 Occurrences starting 11/01/2021 until 12/01/2022 [facility] Work Phone: Comment on above: 1 Occurrences starting 11/01/2021 until 12/01/2022 End: 11-08-2023 ECG COMPLETE ECG COMPLETE ECG Routine Persistent atrial fibrillation (HCC) 1 Occurrences starting 11/07/2022 until 11/08/2023 [facility] Work Phone: Comment on above: 1 Occurrences starting 11/07/2022 until 11/08/2023 Gastrointestinal pathogens panel - Stool by DEANNE with probe detection [facility] End: 09-23-2025 HEARING TEST/AUDIOGRAM HEARING TEST/AUDIOGRAM Audiology Routine BARROW (hard of hearing) 1 Occurrences starting 09/22/2024 until 09/23/2025 [facility] Work Phone: Comment on above: 1 Occurrences starting 09/22/2024 until 09/23/2025 Patient Education [facility] Work Phone: Patient referral [facility] Work Phone: T4 free measurement [facility] Thyroid stimulating hormone measurement [facility] US Heart [facility] End: 07-14-2025 US.doppler Scrotum and testicle US SCROTUM AND CONTENTS Radiology Routine Testicular mass 1 Occurrences starting 06/14/2024 until 07/14/2025 [facility] Comment on above: 1 Occurrences starting 06/14/2024 until 07/14/2025 US.doppler Scrotum a nd testicle US SCROTUM AND CONTENTS Radiology Routine Testicular mass 06/18/2024 2:59 PM EDT [facility] Work Phone: [facility] Immunizations Immunization Date Immunization Notes Care Provider Valeria osorio 12-10-2018 influenza virus vacc ine, unspecified formulation Silva Palacios PA-C Work Phone: [facility] 02-27-2015 influenza, high dose seasonal, preservative-free Rebecca Dinh MD Work Phone: [facility] 08-16-2014 pneumococcal conjuga te vaccine, 13 valent Rebecca Dinh MD Work Phone: [facility] 02-11-2013 influenza virus vacc ine, unspecified formulation Rebecca Dinh MD Work Phone: [facility] Work Phone: 12-14-2012 zoster vaccine, live Rebecca Dinh MD Work Phone: [facility] 02-07-2012 influenza virus vacc ine, unspecified formulation Rebecca Dinh MD Work Phone: [facility] 01-17-2009 influenza virus vacc ine, unspecified formulation Rebecca Dinh MD Work Phone: [facility] Work Phone: 11-07-2008 diphtheria and tetan us toxoids, adsorbed for pediatric use Rebecca Dinh MD Work Phone: [facility] Work Phone: 11-07-2008 pneumococcal polysaccharide vaccine, 23 valent Rebecca Dinh MD Work Phone: [facility] Work Phone: 03-07-2005 influenza virus vacc ine, unspecified formulation Rebecca Dinh MD Work Phone: [facility] Payers Date Payer Category Payer Self-pay [id number] 2023 Private Health Insurance MEDICAR E SUPPLEMENT [id number] 2007 Miscellaneous or Other HOSPITAL/ MEDICAL GENERIC Member Subscriber Plan / Payer (Effective 2007-Present) Name: Dagoberto Baxter JR Relation to Subscriber: Self Name: Dagoberto Baxter JR Payer ID: Not on file Group ID: Not on file Type: Indemnity Address: [address] [place], [place] [facility] [id number] 2007 Unknown HOSPITAL/MEDICAL GENERIC MEDICAL GENERIC [id number] 2007-Present [phone] [place] [address] Indemnity [id number] 2007 Unknown HOSPITAL/MEDICAL GENERIC MEDICAL GENERIC [id number] 2007-Present [phone] [address] [place] [address] Indemnity [id number] 2007 Unknown [id number] 2007 Medicare MEDICARE MEDICAR E A AND B [id number] 2007-Present [phone] [place] [address] Medicare [id number] 2007 Medicare [id number] 2007 Medicare [id number] Unknown [id number] Unknown [id number]. 462 Unknown [id number] .[id number]. 462 Unknown [id number] .[id number]. 462 Unknown [id number]. 462 Unknown [id number]. 462 Unknown [id number] .[id number]. 462 Unknown [id number] ..[id number]. 462 Unknown [id number] .840.1.282214.3.579.2. 462 Unknown [id number] .0.1.756152.3.579.2. 462 Unknown [id number] .1.128788.3.579.2. 462 Unknown [id number]. 462 Unknown [id number] .840.1.604646.3.579.2. 462 Unknown [id number] .840.1.500851.3.579.2. 462 Unknown [id number] 2.840.1.938328.3.579.2. 462 Unknown [id number] 2.840.1.107869.3.579.2. 462 Unknown [id number]. 462 Social History Date Type Detail Facility Start: 06-24-2024 Tobacco smoking status NHIS Never smoked tobacco [facility] Work Phone: Start: 06-29-2021 End: 06-14-2024 Alcohol intake Current non-drinker of alcohol (finding) [facility] Start: 02-13-2021 History SDOH Alcohol Frequency 2 [facility] Start: 02-13-2021 History SDOH Alcohol Std Drinks 1 [facility] Start: 02-13-2021 History SDOH Social Connections Hindu 3 [facility] Start: 02-13-2021 History SDOH Social Connections Membership 98 [facility] Start: 02-13-2021 History SDOH Financial 5 [facility] Start: 1940 Sex Assigned At Male [facility] Start: 06-19-2021 End: 12-31-2021 Exposure to SARS-CoV-2 (event) Not sure [facility] Work Phone: Start: 06-24-2021 End: 11-27-2022 Tobacco smoking status NHIS Unknown if ever smoked [facility] Start: 09-09-2021 End: 09-19-2021 Exposure to SARS-CoV-2 (event) Unable to assess [facility] Start: 07-03-2022 End: 09-23-2022 History of Social function [facility] Work Phone: Start: 07-03-2022 End: 09-23-2022 Tobacco use panel [facility] Work Phone: Start: 02-09-2012 Adult Depression Screening Assessment 0 [facility] Work Phone: Start: 10-12-2020 Gender identity Identifies as male gender (finding) [facility] Start: 10-12-2020 Sexual orientation Heterosexual (finding) [facility] Are you now , , , , never or living with a partner? [facility] How often to you hav e a drink containing alcohol? Monthly or less [facility] How many standard dr inks containing alcohol do you have on a typical day? 1 or 2 [facility] How often do you hav e 6 or more drinks on 1 occasion? Never [facility] Do you feel stress - tense, restless, nervous, or anxious, or unable to sleep at night because your mind is troubled all the time - these days [OSQ] Not at all [facility] (I/We) worried rony er (my/our) food would run out before (I/we) got money to buy more. Never true [facility] In the past 12 month s, was there a time when you were not able to pay the mortgage or rent on time? No [facility] Do you belong to any clubs or organizations such as orthodox groups, unions, fraTessella or athletic groups, or school groups? Yes [facility] Start: 08-03-2024 End: 09-22-2024 Alcoholic beverage intake Ex-drinker (finding) [facility] issa Medical Equipment Procedure Code Equipment Code Equipment Original Text Equipment Identifier Dates Graft Hemashield Knik 6mm Straight 2 Velour Collagen 30cm - [id number] Start: 09-22-2020 Graft Gelweave 3 0mm Straight Gelatin Polyester Woven 30cm Cardiovascular - [id number] Start: 09-27-2020 [id number] B-Safer [place] Tag/Main Body [id number] - [id number] Start: 09-27-2020 [id number] B-Safer [place] Viabahn 12/18/12 [id number] - [id number] Start: 09-27-2020 [place] Thk1.65mm P tfe 4x.5in Cardiovascular Sterile - [id number] Start: 09-22-2020 Ring Flores Mc3 28mm Titanium Silicone Rubber Polyester Annuloplasty 1 - [id number] Start: 09-27-2020 Graft Gelweave 8 mm Straight Gelatin Polyester Woven 30cm Cardiovascular - [id number] Start: 09-27-2020 Patch Thk.5mm Cooper vine Pericardial 73g76hh Cardiovascular Resilience Durable - [id number] Start: 09-27-2020 Valve Aort 25mm Crp-Ed Thfx - [id number] Start: 09-27-2020 Goals Date Patient Goal Desired Activity /State Functional Status Date Assessment Result Facility 11-30-2022 Functional status Independent [facility] Work Phone: 11-30-2022 Functional status Up ad rj [facility] Work Phone: 11-28-2022 Functional status Ambulates;Up ad rj [facility] Work Phone: 11-05-2022 Functional status Ambulates;Up ad rj [facility] Work Phone: 10-04-2020 Are you deaf, or do you have serious difficulty hearing No 10/04/2020 1:35 PM EDT Mihai Elise, ALEXANDRA No [facility] 10-04-2020 Are you blind, or do you have serious difficulty seeing, even when wearing glasses No 10/04/2020 1:35 PM EDT Mihai Elise, ALEXANDRA No [facility] 10-04-2020 Do you have serious difficulty walking or climbing stairs No 10/04/2020 1:35 PM EDT Mihai Elise, ALEXANDRA No [facility] 10-04-2020 Do you have difficul ty dressing or bathing No 10/04/2020 1:35 PM EDT Mihai Elise, ALEXANDRA No [facility] 10-04-2020 Because of a physica l, mental, or emotional condition, do you have difficulty doing errands alone such as visiting a physician's office or shopping No 10/04/2020 1:35 PM EDT Mihai Elise, ALEXANDRA No [facility] Mental Status Date Assessment Result Facility 01-07-2023 Cognitive function Voice/Name [facility] Work Phone: 01-03-2023 Cognitive function Voice/Name [facility] Work Phone: 01-01-2023 Cognitive function Awake;Alert;A ppropriate; Follows Commands [facility] Work Phone: 12-31-2022 Cognitive function Voice/Name [facility] Work Phone: 12-27-2022 Cognitive function Voice/Name [facility] Work Phone: 12-25-2022 Cognitive function Voice/Name [facility] Work Phone: 12-23-2022 Cognitive function Voice/Name [facility] Work Phone: 12-22-2022 Cognitive function Awake;Alert;A ppropriate; Follows [facility] Work Phone: 12-21-2022 Cognitive function Awake;Alert;A ppropriate; Follows [facility] Work Phone: 12-20-2022 Cognitive function Voice/Name [facility] Work Phone: 12-19-2022 Cognitive function Voice/Name [facility] Work Phone: 12-18-2022 Cognitive function Voice/Name [facility] Work Phone: 12-17-2022 Cognitive function Awake;Alert;A ppropriate; Follows [facility] Work Phone: 12-16-2022 Cognitive function Voice/Name [facility] Work Phone: 12-13-2022 Cognitive function Awake;Alert;A ppropriate; Follows [facility] Work Phone: 12-11-2022 Cognitive function Awake;Alert;A ppropriate; Follows [facility] Work Phone: 12-10-2022 Cognitive function Awake;Alert;A ppropriate; Follows [facility] Work Phone: 12-09-2022 Cognitive function Awake;Alert;A ppropriate; Follows [facility] Work Phone: 12-06-2022 Cognitive function Awake;Alert;A ppropriate; Follows [facility] Work Phone: 12-04-2022 Cognitive function Voice/Name [facility] Work Phone: 12-03-2022 Cognitive function Voice/Name [facility] Work Phone: 12-02-2022 Cognitive function Voice/Name [facility] Work Phone: 11-30-2022 Cognitive function Voice/Name [facility] Work Phone: 11-28-2022 [facility]: 11-17-2022 Cognitive function Voice/Name [facility] Work Phone: 11-14-2022 Cognitive function Voice/Name;Touch/Shaki ng [facility] Work Phone: 11-05-2022 Cognitive function Voice/Name [facility] Work Phone: 11-04-2022 Cognitive [facility] Work Phone: 10-05-2022 Cognitive function Awake;Alert;Appropriat [facility] Work Phone: 10-04-2020 Because of a physica l, mental, or emotional condition, do you have serious difficulty concentrating, remembering, or making decisions No 10/04/2020 1:35 PM EDT Mihai Elise RN No [facility] Clinical Notes 09-07-2020 to 12-23-2024 Annie Keys MA - 11/23/2024 8:14 AM EDTTelephone Encounter - Lois Reyna LPN - 11/01/2024 7:46 PM EDTTelephone Encounter - Lois Reyna LPN - 11/01/2024 7:46 PM EDT Note Date & Type Note Facility 12-23-2024 Note HNO ID: [id number] Author: NICOLLE WORLEY APRN.LSAT INSTRUCTOR Service: ? Author Type: Nurse Practitioner Type: Progress Notes Filed: 12/23/2024 15:10 Note Text: CC: Patient presents with: Recheck: 3 month follow up HPI Dagoberto Baxter JR is a 84 year old male who presents today for follow up. Recording using [employer] software for draft documentation of the visit was discussed with the patient/authorized auto claim representative; all questions welcomed and answered. Patient/authorized auto claim representative agreed to proceed Dagoberto Baxter is an 84-year-old male with a history of atrial fibrillation, CKD, and sleep apnea, presenting for a follow-up visit. Paroxysmal Atrial Fibrillation, Multiple Valve Replacements, and Htn: - Controlled; follows up with Dr. Sawyer's office every 4 months. - Next appointment scheduled for next month. - No recent episodes of palpitations. Denies edema, headaches, dyspnea, or chest pain. - Taking amiodarone. - Metoprolol was discontinued. - Reports BP fluctuations: systolic readings as high as 150 mmHg and as low as 90 mmHg. - No associated symptoms with BP fluctuations. Chronic Kidney Disease: - Last kidney function test was 4 months ago, ordered by Basilio at Dr. Sawyer's office. - Takes furosemide daily so likes to monitor closely and avoids NSAIDs. Chronic Anemia: - Managed by Dr. Olson. - Next blood work scheduled in about a month. Sleep Apnea: - Uses BiPAP consistently at night. - Reports restful sleep with BiPAP use. - Recently switched to a large face mask to prevent air leaks. Benign Prostatic Hyperplasia: - Taking Flomax. - Denies dysuria, hematuria, fever, chills, or abdominal pain. Gastroesophageal Reflux Disease: - Taking pantoprazole. - Denies heartburn, abdominal pain, nausea, emesis, or dysphagia. 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 [phone] Solar Lentigo and Solar Lentigines 07/17/2011 Unspecified essential hypertension Essential hypertension PAST SURGICAL HISTORY Procedure Laterality Date COLONOSCOPY W/BIOPSY 11/29/2002 [facility] - hemorrhoids COLONOSCOPY FLX DX W/COLLJ SPEC WHEN PFRMD 12/14/2012 Colonoscopy COLONOSCOPY FLX DX W/COLLJ SPEC WHEN PFRMD 12/14/2012 Colonoscopy HEART VALVE REPLACEMENT 06/09/2003 Bovine Pericardial Heart Valve HEMORRHOIDECTOMY INTERNAL RUBBER BAND LIGATIONS Hemorrhoidectomy LEFT HEART CATH,PERCUTANEOUS 03/10/2003 Cardiac cath, L heart OPEN TX NASOETHMOID FX W/O EXTERNAL FIXATION ALLERGIES Atenolol, Crestor [Rosuvastatin Calcium], Feathers, Fragrances, Lipitor [Atorvastatin Calcium], Lovastatin, Pollen, Pravastatin, and Red Yeast Rice MEDICATIONS cyanocobalamin (VITAMIN B-12) 1,000 mcg tab Take 1 tablet by mouth once daily. pantoprazole DR (PROTONIX) 40 mg tablet Take 1 tablet by mouth once daily. tamsulosin (FLOMAX) 0.4 mg Take 1 capsule by mouth daily at bedtime. amiodarone (PACERONE) 200 mg tablet Take 0.5 tablets by mouth once daily. amLODIPine (NORVASC) 10 mg tablet Take 1 tablet by mouth once daily. ferrous sulfate (IRON) 325 mg (65 mg iron) tablet Take 1 tablet by mouth once daily. losartan (COZAAR) 50 mg tablet Take 1 tablet by mouth once daily. ezetimibe (ZETIA) 10 mg tablet Take 1 tablet by mouth once daily. QUERCETIN ORAL Take 1 tablet by mouth once daily. furosemide (LASIX) 40 mg tablet Take 1 tablet by mouth once daily. potassium chloride 20 mEq TbER Take 1 tablet by mouth once daily. apixaban (ELIQUIS) 5 mg tab(s) Take 2.5 mg by mouth two times a day. Zinc Acetate, Oral, 25 mg (zinc) cap Take 1 capsule by mouth once daily. magnesium oxide 200 mg magnesium chew Take 1 tablet by mouth once daily. Cholecalciferol, Vitamin D3, (VITAMIN D) 25 mcg (1,000 unit) cap Take 1 capsule by mouth twice daily. Ascorbic Acid (VITAMIN C) 1,000 mg tablet Take 1,000 mg by mouth once daily. BIPAP Settings 16/11 with BUR 12, suitable mask per pt preference (Airfit F30), chin strap, head gear, humidity, tubing, lifetime supplies. G47.33 PARKER OTC PRODUCT Take 1 tablet by mouth once daily. FAMILY HISTORY Problem Relation Age of Onset Heart Mother valve replacement other (OHS) Mother 70 age 73 Coronary Artery Disease Father Hypertension Father other (Myocardial infarction) Father 69 Diabetes Father Diabetes Sister Heart Sister Hypertensio (more content not included)... [facility] 12-07-2024 Note Patient Outreach (IN TMMN) DAGOBERTO BAXTER JR ([id number]) 1940 M Date Time Provider Department 12/07/24 REBECCA DINH During your visit today, we recorded the following information about you: Allergies As of Date: 12/07/2024 Noted Allergy Reaction ATENOLOL 05/30/2003 16 - Unknown CRESTOR (ROSUVASTATIN CALCIUM) 05/18/2007 5 - Intolerance Comments: myalgia FEATHERS 05/30/2003 FRAGRANCES 05/30/2003 LIPITOR (ATORVASTATIN CALCIUM) 10/26/2004 8 - GI Upset LOVASTATIN 05/18/2007 5 - Intolerance Comments: myalgia POLLEN 05/30/2003 PRAVASTATIN 07/04/2009 5 - Intolerance Comments: myalgia RED YEAST RICE 05/18/2007 5 - Intolerance Comments: myalgia Date Reviewed: 09/22/2024 Reviewed by: Nicolle Worley APRN.LSAT INSTRUCTOR - Fully Assessed Visit Diagnoses:Mixed hyperlipidemia [E78.2] Medication management [Z79.899] Order(s):LIPID PANEL, FASTING [SQLIPB] Order #: [id number] FUTURE THYROID STIMULATING HORMONE [SQTSH] Order #: [id number] FUTURE ASPARTATE AMINOTRANSFERASE/SGOT [SQAST] Order #: [id number] FUTURE ALANINE AMINOTRANSFERASE / SGPT [SQALT] Order #: [id number] FUTURE MAGNESIUM [SQMG1] Order #: [id number] FUTURE Prescriptions as of 12/10/2024 - amLODIPine (NORVASC) 10 mg tablet Take 1 tablet by mouth once daily. - ferrous sulfate (IRON) 325 mg (65 mg iron) tablet Take 1 tablet by mouth once daily. - losartan (COZAAR) 50 mg tablet Take 1 tablet by mouth once daily. - ezetimibe (ZETIA) 10 mg tablet Take 1 tablet by mouth once daily. - pantoprazole DR (PROTONIX) 40 mg tablet Take 1 tablet by mouth once daily. - cyanocobalamin (VITAMIN B-12) 1,000 mcg tab Take 1 tablet by mouth once daily. - tamsulosin (FLOMAX) 0.4 mg Take 1 capsule by mouth daily at bedtime. - QUERCETIN ORAL Take 1 tablet by mouth once daily. - metoprolol tartrate, short acting, (LOPRESSOR) 25 mg tablet Take 1 tablet by mouth two times a day. - furosemide (LASIX) 40 mg tablet Take 1 tablet by mouth once daily. - amiodarone (PACERONE) 200 mg tablet Take 200 mg by mouth once daily. - potassium chloride 20 mEq TbER Take 1 tablet by mouth once daily. - apixaban (ELIQUIS) 5 mg tab(s) Take 2.5 mg by mouth two times a day. - Zinc Acetate, Oral, 25 mg (zinc) cap Take 1 capsule by mouth once daily. - magnesium oxide 200 mg magnesium chew Take 1 tablet by mouth once daily. - Cholecalciferol, Vitamin D3, (VITAMIN D) 25 mcg (1,000 unit) cap Take 1 capsule by mouth twice daily. - Ascorbic Acid (VITAMIN C) 1,000 mg tablet Take 1,000 mg by mouth once daily. - BIPAP Settings 23/01 with BUR 12, suitable mask per pt preference (Airfit F30), chin strap, head gear, humidity, tubing, lifetime supplies. G47.33 PARKER - OTC PRODUCT Take 1 tablet by mouth once daily. 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] 01/23/2006 10/10/2022 SURGICAL SCARS AND FIBROSIS OF SKIN [L90.5] 01/23/2006 10/10/2022 PERS HX SKIN MALIGNANCY: H/O BCC's [Z85.828] 01/23/2006 SOLAR LENTIGINES///DYSCHROMIA OTHER [L81.9] 01/23/2006 06/17/2013 Benign neoplasm of skin of trunk, except scrotu*01/23/2006 06/17/2013 Seborrheic Keratosis [L82.1] 01/23/2006 ACTINIC KERATOSES (Premalignant AK's) [L57.0] 09/18/2006 10/10/2022 ACTINIC DAMAGE//CHR SOLAR SKIN DAMAGE [L57.8] 09/18/2006 06/17/2013 Irritated//Inflamed Seborrheic Keratosis [L82.0]09/18/2006 10/10/2022 Skin Tag Papilloma [L91.9, L90.9] 09/18/2006 10/10/2022 XEROSIS///SEBACEOUS GLAND DIS NEC [L73.8] 03/11/2008 06/17/2013 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 10/10/2022 H/O BCC LEFT FACE MUSLIM/MALIG NEOPLASM SKIN TR*06/08/2008 03/13/2009 S/P aortic valve replacement [Z95.2] 06/19/2010 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] 01/13/2011 10/10/2022 Xerosis cutis [L85.3] 01/13/2011 10/10/2022 Solar Lentigo and Solar Lentigines [L81.4] 07/17/2011 10/10/2022 Castro angiomas [D18.01] 07/17/2011 10/10/2022 Medicare annual wellness visit, subsequent [Z00*02/24/2012 02/27/2015 Actinic skin damage [L57.8] 07/01/2012 Onychomycosis [B35.1] 07/01/2012 10/10/2022 Nail dystrophy [L60.3] 07/01/2012 08/31/2015 Tinea pedis [B35.3] 07/01/2012 10/10/2022 PARKER (obstructive sleep apnea) [G47.33] 01/27/2013 Medicare annual wellness visit, subsequent [Z00*02/27/2015 10/10/2022 Aneurysm of thoracic aorta (HCC) [I71.20] 07/25/2017 CKD (chronic kidney disease) stage 3, GFR 30-59*07/25/2017 Discharge planning issues [Z75.8] 09/18/2020 10/10/2022 Preop testing [Z01.818] 09/18/2020 10/01/2020 Aneurysm of left subclavian artery (HCC) [I72.8]09/22/2020 Research study patient [Z00.6] 09/27/2020 Atelectasis [J98.11] 09/27/2020 10/11/19 (more content not included)... [facility] 11-23-2024 Note HNO ID: [id number] Author: ANNIE KEYS MA Service: ? Author Type: Application Services Manager Type: Progress Notes Filed: 11/23/2024 08:18 Note Text: POPULATION HEALTH NAVIGATION OUTREACH Action/FYI Spoke to the patient. He declines flu shot. HCC gap closure added to upcoming appointment notes. Reason for Outreach Care Gap/HCC or Scheduling Wellness Visits Care Gaps due: Flu Vaccine Patient Contacted: Spoke to patient/parent/or legal guardian Patient identified by name and : Yes Care Gap/HCC/Scheduling Wellness actions taken: Patient declined: Doesn't feel it's necessary HCC related Navigation Signature: Annie Keys MA November 23, 2024 8:18 AM [facility] 11-23-2024 History of Presen t illness Narrative POPULATION HEALTH NAVIGATION OUTREACH Action/FYI Spoke to the patient. He declines flu shot. HCC gap closure added to upcoming appointment notes. Reason for Outreach Care Gap/HCC or Scheduling Wellness Visits Care Gaps due: Flu Vaccine Patient Contacted: Spoke to patient/parent/or legal guardian Patient identified by name and : Yes Care Gap/HCC/Scheduling Wellness actions taken: Patient declined: Doesn't feel it's necessary HCC related Navigation Signature: Annie Keys MA November 23, 2024 8:18 AM documented in this encounter [facility] 11-23-2024 Note Patient Outreach (NE TNAV) DAGOBERTO BAXTER JR ([id number]) 1940 M Date Time Provider Department 11/23/24 ANNIE KEYS During your visit today, we recorded the following information about you: Annie Keys MA 11/23/2024 8:18 AM Signed POPULATION HEALTH NAVIGATION OUTREACH Action/FYI Spoke to the patient. He declines flu shot. HCC gap closure added to upcoming appointment notes. Reason for Outreach Care Gap/HCC or Scheduling Wellness Visits Care Gaps due: Flu Vaccine Patient Contacted: Spoke to patient/parent/or legal guardian Patient identified by name and : Yes Care Gap/HCC/Scheduling Wellness actions taken: Patient declined: Doesn't feel it's necessary HCC related Navigation Signature: Annie Keys MA November 23, 2024 8:18 AM Allergies As of Date: 11/23/2024 Noted Allergy Reaction ATENOLOL 05/30/2003 16 - Unknown CRESTOR (ROSUVASTATIN CALCIUM) 05/18/2007 5 - Intolerance Comments: myalgia FEATHERS 05/30/2003 FRAGRANCES 05/30/2003 LIPITOR (ATORVASTATIN CALCIUM) 10/26/2004 8 - GI Upset LOVASTATIN 05/18/2007 5 - Intolerance Comments: myalgia POLLEN 05/30/2003 PRAVASTATIN 07/04/2009 5 - Intolerance Comments: myalgia RED YEAST RICE 05/18/2007 5 - Intolerance Comments: myalgia Date Reviewed: 09/22/2024 Reviewed by: Nicolle Worley APRN.LSAT INSTRUCTOR - Fully Assessed Reason for Visit: Population Health Navigation Outreach [7540] Cmt: [place]/Workbench/ACO Prescriptions as of 11/23/2024 - amLODIPine (NORVASC) 10 mg tablet Take 1 tablet by mouth once daily. - ferrous sulfate (IRON) 325 mg (65 mg iron) tablet Take 1 tablet by mouth once daily. - losartan (COZAAR) 50 mg tablet Take 1 tablet by mouth once daily. - ezetimibe (ZETIA) 10 mg tablet Take 1 tablet by mouth once daily. - pantoprazole DR (PROTONIX) 40 mg tablet Take 1 tablet by mouth once daily. - cyanocobalamin (VITAMIN B-12) 1,000 mcg tab Take 1 tablet by mouth once daily. - tamsulosin (FLOMAX) 0.4 mg Take 1 capsule by mouth daily at bedtime. - QUERCETIN ORAL Take 1 tablet by mouth once daily. - metoprolol tartrate, short acting, (LOPRESSOR) 25 mg tablet Take 1 tablet by mouth two times a day. - furosemide (LASIX) 40 mg tablet Take 1 tablet by mouth once daily. - amiodarone (PACERONE) 200 mg tablet Take 200 mg by mouth once daily. - potassium chloride 20 mEq TbER Take 1 tablet by mouth once daily. - apixaban (ELIQUIS) 5 mg tab(s) Take 2.5 mg by mouth two times a day. - Zinc Acetate, Oral, 25 mg (zinc) cap Take 1 capsule by mouth once daily. - magnesium oxide 200 mg magnesium chew Take 1 tablet by mouth once daily. - Cholecalciferol, Vitamin D3, (VITAMIN D) 25 mcg (1,000 unit) cap Take 1 capsule by mouth twice daily. - Ascorbic Acid (VITAMIN C) 1,000 mg tablet Take 1,000 mg by mouth once daily. - BIPAP Settings 23/01 with BUR 12, suitable mask per pt preference (Airfit F30), chin strap, head gear, humidity, tubing, lifetime supplies. G47.33 PARKER - OTC PRODUCT Take 1 tablet by mouth once daily. 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] 01/23/2006 10/10/2022 SURGICAL SCARS AND FIBROSIS OF SKIN [L90.5] 01/23/2006 10/10/2022 PERS HX SKIN MALIGNANCY: H/O BCC's [Z85.828] 01/23/2006 SOLAR LENTIGINES///DYSCHROMIA OTHER [L81.9] 01/23/2006 06/17/2013 Benign neoplasm of skin of trunk, except scrotu*01/23/2006 06/17/2013 Seborrheic Keratosis [L82.1] 01/23/2006 ACTINIC KERATOSES (Premalignant AK's) [L57.0] 09/18/2006 10/10/2022 ACTINIC DAMAGE//CHR SOLAR SKIN DAMAGE [L57.8] 09/18/2006 06/17/2013 Irritated//Inflamed Seborrheic Keratosis [L82.0]09/18/2006 10/10/2022 Skin Tag Papilloma [L91.9, L90.9] 09/18/2006 10/10/2022 XEROSIS///SEBACEOUS GLAND DIS NEC [L73.8] 03/11/2008 06/17/2013 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 10/10/2022 H/O BCC LEFT FACE MUSLIM/MALIG NEOPLASM SKIN TR*06/08/2008 03/13/2009 S/P aortic valve replacement [Z95.2] 06/19/2010 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] 01/13/2011 10/10/2022 Xerosis cutis [L85.3] 01/13/2011 10/10/2022 Solar Lentigo and Solar Lentigines [L81.4] 07/17/2011 10/10/2022 Castro angiomas [D18.01] 07/17/2011 10/10/2022 Medicare annual wellness visit, subsequent [Z00*02/24/2012 02/27/2015 Actinic skin damage [L57.8] 07/01/2012 Onychomycosis [B35.1] 07/01/2012 10/10/2022 Nail dystrophy [L60.3] 07/01/2012 08/31/2015 Tinea pedis [B35.3] 07/01/2012 10/10/2022 PARKER (obstructive sleep apnea) [G47.33] 01/27/2013 Medicare annual wellness visit, subsequent [Z00*02/27/2015 10/10/2022 Aneurysm of thoracic aorta (HCC) [I71.20] 07/25/2017 CKD (chronic kidney disease) (more content not included)... [facility] 11-01-2024 Telephone encounter Note Patient has been identified by name and date of : Yes Patient phones for refill(s): Requested Prescriptions Pending Prescriptions Disp Refills amLODIPine (NORVASC) 10 mg tablet 90 tablet 3 Sig: Take 1 tablet by mouth once daily. Date of last office visit in primary care: 09/22/2024 Date of next office visit in primary care: 12/23/2024 Please advise. Thank you. Lois Reyna LPN. [facility] 11-01-2024 Miscellaneous Notes Patient has been identified by name and date of : Yes Patient phones for refill(s): Requested Prescriptions Pending Prescriptions Disp Refills amLODIPine (NORVASC) 10 mg tablet 90 tablet 3 Sig: Take 1 tablet by mouth once daily. Date of last office visit in primary care: 09/22/2024 Date of next office visit in primary care: 12/23/2024 Please advise. Thank you. Lois Reyna LPN. documented in this encounter [facility] 09-22-2024 Nicolle Calix APRN.LSAT INSTRUCTOR - 09/22/2024 5:57 PM EDT Screening schedule The following prevention plan is recommended: Shingrix Vaccine(2 of 3) due on 02/08/2013 DTaP,Tdap,Td Vaccine(2 - Tdap) due on 11/07/2018 Medicare Annual Wellness Visit due on 07/04/2023 Advance Directive Discussion Never done WHAT YOU CAN DO TO PREVENT FALLS Many falls can be prevented. By making some changes, you can lower your chances of falling. Four things YOU can do to prevent falls for you* and your caregiver 1. Begin a regular exercise program Exercise is one of the most important ways to lower your chances of falling. It makes you stronger and helps you feel better. Exercises that improve balance and coordination (like Jonathan Chi) are the most helpful. Lack of exercise leads to weakness and increases your chances of falling. Ask your doctor or health care provider about the best type of exercise program for you. 2. Have your health care provider review your medicines Have your doctor or pharmacist review all the medicines you take, even [id number] medicines. As you get older, the way medicines work in your body can change. Some medicines, or combinations of medicines, can make you sleepy or dizzy and can cause you to fall. 3. Have your vision checked Have your eyes checked by an eye doctor at least once a year. You may be wearing the wrong glasses or have a condition like glaucoma or cataracts that limits your vision. Poor vision can increase your chances of falling. 4. Make your home safer About half of all falls happen at home. To make your home safer: Remove things you can trip over (like papers, books, clothes, and shoes) from stairs and places where you walk. Remove small throw rugs or use double-sided tape to keep the rugs from slipping. Keep items you use often in cabinets you can reach easily without using a step stool. Have grab bars put in next to your toilet and in the tub or shower. Use non-slip mats in the bathtub and on shower floors. Improve the lighting in your home. As you get older, you need brighter lights to see well. Hang light-weight curtains or shades to reduce glare. Have handrails and lights put in on all staircases. Wear shoes both inside and outside the house. Avoid going barefoot or wearing slippers. For more information, contact: Centers for Disease Control and Prevention www.cdc.gov/injury * This information may not apply if you have certain medical conditions. documented in this encounter [facility] 09-22-2024 Note HNO ID: [id number] Author: NICOLLE WORLEY APRN.CNP Service: ? Author Type: Nurse Practitioner Type: Progress Notes Filed: 09/22/2024 19:00 Note Text: Dagoberto Baxter JR is a 84 year old male here for a Medicare wellness visit. Medicare Health Risk Assessment General Health Good Exercise: Minutes/Day 20 min Exercise: Days/Week 1 day Alcohol: Daily Use Never Alcohol: Drinks/Day Patient does not drink Alcohol: 6 or more drinks Never Feel off balance denies Concerns: Teeth/Dentures Denies - follows with a dentist for concerns Concerns: Sexual function denies Troubled by feelings denies Frequency: Eating healthy diet 75-80% of the time ADLs requiring help denies Safety precautions in home/vehicle Wears his seatbelt, has grab bars in the bathroom, has handrails for steps, clutter free floors Smoke, vape, chews tobacco denies Difficulty hearing BARROW Difficulty seeing denies Current Providers Specialists: I have reviewed specialist-related care of the patient in the medical record. Optometry: Dr. Delarosa Cardiology: Dr. Pickard Hematology: Dr. Olson Dermatology: Dr. Berumen GI: Dr. Pimentel Medical/Family history review Reviewed and updated problem list, medical/surgical/family/social history, medications, and allergies. Opioid use review Opioid Medications (last 90 days) No data to display Anxiety/Depression screening PHQ2 is 0 PAXTON-7 Score: 4 (Minimal Anxiety) Recommendation: no further intervention at this time Cognitive screening Mini Cog Score: 4 Cognitive screening reviewed and No further action needed (score 3-5). Functional Observation Was the patient's Timed Up AND Go test unsteady or >= 12 seconds? No Advance Care Planning Patient was not able to provide a surrogate decision maker or written advance directives Measurements BP 122/78 Pulse 68 Resp 16 Wt 90.7 kg (200 lb) SpO2 97% BMI 32.28 kg/m? Vision Screening: Follows with optometry/ophthalmology Assessment/Plan Medicare annual wellness visit, subsequent (Z00.00) - Counseled on healthy diet and regular exercise - Fall avoidance information provided - Personalized prevention plan provided - Discussed need for and benefit of weight loss. BMI 32.28 kg/(m2) ASSESSMENT/PLAN: 1. Medicare annual wellness visit, subsequent - ICD9: V70.0, ICD10: Z00.00 (primary diagnosis) - Counseled on healthy diet and regular exercise - Discussed need for and benefit of weight loss. BMI 32.28 kg/(m2) - Follow up for annual exam in one year 2. BARROW (hard of hearing) - ICD9: 389.9, ICD10: H91.90 - reports concerns of hearing and needing hearing testing. - HEARING TEST/AUDIOGRAM 3. Encounter for immunization - ICD9: V03.89, ICD10: Z23 - SHINGRIX PRINTED PHARMACY INSTRUCTIONS - TDAP PRINTED PHARMACY INSTRUCTIONS Prescription instructions reviewed with patient as applicable. Potential red flag symptoms discussed with the patient. Reviewed appropriate action plan to take if red flag symptoms occur. Patient agreeable to treatment plan. Nicolle Worley APRN.[facility] 09-22-2024 History of Presen t illness Narrative Images from the original note were not included. Dagoberto Baxter JR is a 84 year old male here for a Medicare wellness visit. Medicare Health Risk Assessment General Health Good Exercise: Minutes/Day 20 min Exercise: Days/Week 1 day Alcohol: Daily Use Never Alcohol: Drinks/Day Patient does not drink Alcohol: 6 or more drinks Never Feel off balance denies Concerns: Teeth/Dentures Denies - follows with a dentist for concerns Concerns: Sexual function denies Troubled by feelings denies Frequency: Eating healthy diet 75-80% of the time ADLs requiring help denies Safety precautions in home/vehicle Wears his seatbelt, has grab bars in the bathroom, has handrails for steps, clutter free floors Smoke, vape, chews tobacco denies Difficulty hearing BARROW Difficulty seeing denies Current Providers Specialists: I have reviewed specialist-related care of the patient in the medical record. Optometry: Dr. Delarosa Cardiology: Dr. Pickard Hematology: Dr. Olson Dermatology: Dr. Berumen GI: Dr. Pimentel Medical/Family history review Reviewed and updated problem list, medical/surgical/family/social history, medications, and allergies. Opioid use review Opioid Medications (last 90 days) No data to display Anxiety/Depression screening PHQ2 is 0 PAXTON-7 Score: 4 (Minimal Anxiety) Recommendation: no further intervention at this time Cognitive screening Mini Cog Score: 4 Cognitive screening reviewed and No further action needed (score 3-5). Functional Observation Was the patient's Timed Up & Go test unsteady or >= 12 seconds? No Advance Care Planning Patient was not able to provide a surrogate decision maker or written advance directives Measurements BP 122/78 Pulse 68 Resp 16 Wt 90.7 kg (200 lb) SpO2 97% BMI 32.28 kg/m Vision Screening: Follows with optometry/ophthalmology Assessment/Plan Medicare annual wellness visit, subsequent (Z00.) - Counseled on healthy diet and regular exercise - Fall avoidance information provided - Personalized prevention plan provided - Discussed need for and benefit of weight loss. BMI 32.28 kg/(m^2) ASSESSMENT/PLAN: 1. Medicare annual wellness visit, subsequent - ICD9: V70.0, ICD10: Z00.00 (primary diagnosis) - Counseled on healthy diet and regular exercise - Discussed need for and benefit of weight loss. BMI 32.28 kg/(m^2) - Follow up for annual exam in one year 2. BARROW (hard of hearing) - ICD9: 389.9, ICD10: H91.90 - reports concerns of hearing and needing hearing testing. - HEARING TEST/AUDIOGRAM 3. Encounter for immunization - ICD9: V03.89, ICD10: Z23 - SHINGRIX PRINTED PHARMACY INSTRUCTIONS - TDAP PRINTED PHARMACY INSTRUCTIONS Prescription instructions reviewed with patient as applicable. Potential red flag symptoms discussed with the patient. Reviewed appropriate action plan to take if red flag symptoms occur. Patient agreeable to treatment plan. Nicolle Worley APRN.LIS documented in this encounter [facility] 08-10-2024 Telephone encounter Note Patient notified and voices understanding. Radha Ramos LPN [facility] 08-10-2024 Miscellaneous Notes Patient notified and voices understanding. Radha Ramos LPN Iron a little low from recent hematoma, but ferritin and Hgb doing well. Continue oral iron and follow up as scheduled. Victor Manuel Olson DO documented in this encounter [facility] 08-10-2024 Telephone encounter Note Iron a little low from recent hematoma, but ferritin and Hgb doing well. Continue oral iron and follow up as scheduled. Victor Manuel Olson DO [facility] 08-04-2024 Telephone encounter Note Prescription Refill Information The patient has been identified by name and date of : Yes Caregiver verified no other encounters exist for this prescription request: Yes Caregiver confirmed with patient/requestor that no other refills are due, in the near future, with this provider at this time: Yes The last office visit in the department: 06/14/24 Does the patient have a future office visit with this provider/department: Yes 09/22/24 Requested Prescriptions Pending Prescriptions Disp Refills ferrous sulfate (IRON) 325 mg (65 mg iron) tablet 90 tablet 3 Sig: Take 1 tablet by mouth once daily. Eli Hagen LPN August 04, 2024 1:20 PM [facility] 08-04-2024 Miscellaneous Notes Prescription Refill Information The patient has been identified by name and date of : Yes Caregiver verified no other encounters exist for this prescription request: Yes Caregiver confirmed with patient/requestor that no other refills are due, in the near future, with this provider at this time: Yes The last office visit in the department: 06/14/24 Does the patient have a future office visit with this provider/department: Yes 09/22/24 Requested Prescriptions Pending Prescriptions Disp Refills ferrous sulfate (IRON) 325 mg (65 mg iron) tablet 90 tablet 3 Sig: Take 1 tablet by mouth once daily. Eli Hagen LPN August 04, 2024 1:20 PM documented in this encounter [facility] 08-03-2024 Note HNO ID: [id number] Author: PHILLIPS, ALMITA, PA-C Service: ? Author Type: Physician Roll Up Operator Type: Progress Notes Filed: 08/03/2024 22:58 Note Text: [facility] NEW PATIENT CLINIC NOTE (M) Note was generated by [employer] Software and edited as appropriate SERVICE DATE: August 03, 2024 NAME: Dagoberto Baxter JR GENDER: male CHIEF COMPLAINT: presenting for evaluation of a testicular swelling. HISTORY OF PRESENT ILLNESS: The patient is an 84-year-old male presenting for evaluation of a testicular mass. Testicular Mass: - Referred by Dr. Pepper. - Noticed a mass on the testicle, prompting an ultrasound. - Ultrasound report mentioned a mass. - Mass has been present for several years, with minimal increase in size. - Denies significant discomfort or pain. - Main concern was the possibility of cancer. Details of Scrotum US reviewed in detail which showed a large left hydrocele not a mass and explained this detail Given benign nature of Hydrocele not treatment needed unless he starts having pain or it enlarges to be problematic LABS: PSA (ng/mL) Date Value 07/16/2019 2.08 06/23/2017 2.93 08/31/2015 2.49 PSA Screening (ng/mL) Date Value 06/14/2024 2.14 07/11/2023 2.54 12/31/2021 2.49 02/15/2021 2.3 01/31/2018 2.49 01/31/2017 3.09 No results found for: "TESTOST" Hematocrit (%) Date Value 07/07/2024 27.8 06/08/2024 38.3 01/07/2024 33.1 02/15/2021 39.2 01/16/2021 37.7 10/31/2020 36.3 PSA (ng/mL) Date Value 07/16/2019 2.08 06/23/2017 2.93 08/31/2015 2.49 PSA Screening (ng/mL) Date Value 06/14/2024 2.14 07/11/2023 2.54 12/31/2021 2.49 02/15/2021 2.3 01/31/2018 2.49 01/31/2017 3.09 Creatinine Date Value Ref Range Status 06/08/2024 1.39 (H) 0.73 - 1.22 mg/dL Final 07/30/2023 1.44 (H) 0.73 - 1.22 mg/dL Final Creatinine (POCT) Date Value Ref Range Status 10/09/2023 1.60 (A) 0.7 - 1.4 mg/dL Final MEDICATIONS: losartan (COZAAR) 50 mg tablet Take 1 tablet by mouth once daily. ezetimibe (ZETIA) 10 mg tablet Take 1 tablet by mouth once daily. pantoprazole DR (PROTONIX) 40 mg tablet Take 1 tablet by mouth once daily. cyanocobalamin (VITAMIN B-12) 1,000 mcg tab Take 1 tablet by mouth once daily. tamsulosin (FLOMAX) 0.4 mg Take 1 capsule by mouth daily at bedtime. QUERCETIN ORAL Take 1 tablet by mouth once daily. metoprolol tartrate, short acting, (LOPRESSOR) 25 mg tablet Take 1 tablet by mouth two times a day. amLODIPine (NORVASC) 10 mg tablet Take 1 tablet by mouth once daily. ferrous sulfate (IRON) 325 mg (65 mg iron) tablet Take 1 tablet by mouth once daily. furosemide (LASIX) 40 mg tablet Take 1 tablet by mouth once daily. amiodarone (PACERONE) 200 mg tablet Take 200 mg by mouth once daily. potassium chloride 20 mEq TbER Take 1 tablet by mouth once daily. apixaban (ELIQUIS) 5 mg tab(s) Take 2.5 mg by mouth two times a day. Zinc Acetate, Oral, 25 mg (zinc) cap Take 1 capsule by mouth once daily. magnesium oxide 200 mg magnesium chew Take 1 tablet by mouth once daily. Cholecalciferol, Vitamin D3, (VITAMIN D) 25 mcg (1,000 unit) cap Take 1 capsule by mouth twice daily. Ascorbic Acid (VITAMIN C) 1,000 mg tablet Take 1,000 mg by mouth once daily. BIPAP Settings 23/01 with BUR 12, suitable mask per pt preference (Airfit F30), chin strap, head gear, humidity, tubing, lifetime supplies. G47.33 PARKER OTC PRODUCT Take 1 tablet by mouth once daily. 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 [phone] Solar Lentigo and Solar Lentigines 07/17/2011 Unspecified essential hypertension Essential hypertension PAST SURGICAL HISTORY: PAST SURGICAL HISTORY Procedure Laterality Date COLONOSCOPY W/BIOPSY 11/29/2002 [facility] - hemorrhoids COLONOSCOPY FLX DX W/COLLJ SPEC WHEN PFRMD 12/14/2012 Colonoscopy COLONOSCOPY FLX DX W/COLLJ SPEC WHEN PFRMD 12/14/2012 Colonoscopy HEART VALVE REPLACEMENT 06/09/2003 Bovine Pericardial Heart Valve HEMORRHOIDECTOMY INTERNAL RUBBER BAND LIGATIONS Hemorrhoidectomy LEFT HEART CATH,PERCUTANEOUS 03/10/2003 Cardiac cath, L heart OPEN TX NASOETHMOID FX W/O EXTERNAL FIXATION FAMILY HISTORY: FAMILY HISTORY Problem Relation Age of Onset Heart Mother valve replacement other ([facility]) Mother 70 age 73 (more content not included)... [facility] 08-03-2024 History of Presen t illness Narrative Images from the original note were not included. [facility] NEW PATIENT CLINIC NOTE (M) Note was generated by [employer] Software and edited as appropriate SERVICE DATE: August 03, 2024 NAME: Dagoberto Baxter JR GENDER: male CHIEF COMPLAINT: presenting for evaluation of a testicular swelling. HISTORY OF PRESENT ILLNESS: The patient is an 84-year-old male presenting for evaluation of a testicular mass. Testicular Mass: - Referred by Dr. Pepper. - Noticed a mass on the testicle, prompting an ultrasound. - Ultrasound report mentioned a mass. - Mass has been present for several years, with minimal increase in size. - Denies significant discomfort or pain. - Main concern was the possibility of cancer. Details of Scrotum US reviewed in detail which showed a large left hydrocele not a mass and explained this detail Given benign nature of Hydrocele not treatment needed unless he starts having pain or it enlarges to be problematic LABS: PSA (ng/mL) Date Value 07/16/2019 2.08 06/23/2017 2.93 08/31/2015 2.49 PSA Screening (ng/mL) Date Value 06/14/2024 2.14 07/11/2023 2.54 12/31/2021 2.49 02/15/2021 2.3 01/31/2018 2.49 01/31/2017 3.09 No results found for: "TESTOST" Hematocrit (%) Date Value 07/07/2024 27.8 06/08/2024 38.3 01/07/2024 33.1 02/15/2021 39.2 01/16/2021 37.7 10/31/2020 36.3 PSA (ng/mL) Date Value 07/16/2019 2.08 06/23/2017 2.93 08/31/2015 2.49 PSA Screening (ng/mL) Date Value 06/14/2024 2.14 07/11/2023 2.54 12/31/2021 2.49 02/15/2021 2.3 01/31/2018 2.49 01/31/2017 3.09 Creatinine Date Value Ref Range Status 06/08/2024 1.39 (H) 0.73 - 1.22 mg/dL Final 07/30/2023 1.44 (H) 0.73 - 1.22 mg/dL Final Creatinine (POCT) Date Value Ref Range Status 10/09/2023 1.60 (A) 0.7 - 1.4 mg/dL Final MEDICATIONS: losartan (COZAAR) 50 mg tablet Take 1 tablet by mouth once daily. ezetimibe (ZETIA) 10 mg tablet Take 1 tablet by mouth once daily. pantoprazole DR (PROTONIX) 40 mg tablet Take 1 tablet by mouth once daily. cyanocobalamin (VITAMIN B-12) 1,000 mcg tab Take 1 tablet by mouth once daily. tamsulosin (FLOMAX) 0.4 mg Take 1 capsule by mouth daily at bedtime. QUERCETIN ORAL Take 1 tablet by mouth once daily. metoprolol tartrate, short acting, (LOPRESSOR) 25 mg tablet Take 1 tablet by mouth two times a day. amLODIPine (NORVASC) 10 mg tablet Take 1 tablet by mouth once daily. ferrous sulfate (IRON) 325 mg (65 mg iron) tablet Take 1 tablet by mouth once daily. furosemide (LASIX) 40 mg tablet Take 1 tablet by mouth once daily. amiodarone (PACERONE) 200 mg tablet Take 200 mg by mouth once daily. potassium chloride 20 mEq TbER Take 1 tablet by mouth once daily. apixaban (ELIQUIS) 5 mg tab(s) Take 2.5 mg by mouth two times a day. Zinc Acetate, Oral, 25 mg (zinc) cap Take 1 capsule by mouth once daily. magnesium oxide 200 mg magnesium chew Take 1 tablet by mouth once daily. Cholecalciferol, Vitamin D3, (VITAMIN D) 25 mcg (1,000 unit) cap Take 1 capsule by mouth twice daily. Ascorbic Acid (VITAMIN C) 1,000 mg tablet Take 1,000 mg by mouth once daily. BIPAP Settings 23/01 with BUR 12, suitable mask per pt preference (Airfit F30), chin strap, head gear, humidity, tubing, lifetime supplies. G47.33 PARKER OTC PRODUCT Take 1 tablet by mouth once daily. 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 [phone] Solar Lentigo and Solar Lentigines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 [id number] Author: YESSICA SUAREZ RDMS Service: ? Author Type: Finance Admin Type: Progress Notes Filed: 06/18/2024 15:02 Note Text: Radiology Service Progress Note PATIENT NAME: Dagoberto Baxter JR DATE OF SERVICE: June 18, 2024 TIME: 3:02 PM PATIENT IDENTITY VERIFICATION COMPLETED USING TWO (2) IDENTIFIERS: Name and Date of confirmed by patient verbally. FALL SCREENING: Has the patient had 2 falls in the last year or 1 fall with injury or currently using an Ambulatory Assistive Device (Walker, Cane, Wheelchair, Crutches, etc.)? No PATIENT GENDER DATA: Assigned male at PATIENT RELEVANT IMPLANT DATA REVIEWED: Not Applicable PATIENT PRESENTS WITH AN IMPLANTABLE OR ATTACHED ECHO TECHNOLOGIST: No RADIOLOGY DEPARTMENT: Ultrasound PERIPHERAL IV DATA: Not applicable SIGNED BY: Yessica Suarez RDMS June 18, 2024 3:02 [facility]04-07-2025 NoteHNO ID: [id number] Author: REBECCA DINH MD Service: ? Author Type: Physician Type: Progress Notes Filed: 06/14/2024 21:49 Note Text: Reason for Visit Follow up DARÍO Arenas is a 84-year-old male, with a history of mitral regurgitation, anemia, and intermittent atrial fibrillation, presenting for evaluation of lower extremity edema and left testicular enlargement. Dagoberto reports intermittent lower extremity edema, for which he takes Lasix as needed. He inquires about the possibility of having CHF, noting that his advertising supervisor has not provided a clear answer. He also expresses concern about the potential renal effects of Lasix. He monitors his weight daily and takes Lasix if he gains 2 pounds from one day to the next. He prefers to take Lasix in the afternoon rather than in the morning. He denies any urinary complaints. He reports feeling better after receiving intravenous iron for anemia before a recent trip to [place]. He notes that his legs sometimes feel tired, particularly when climbing stairs or getting in and out of his truck at work. 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 He uses a CPAP machine for sleep apnea and takes Eliquis for intermittent atrial fibrillation to prevent stroke. He also reports left testicular enlargement and soreness for at least 1 year, noting that the left testicle is "a lot bigger" and "swollen" compared to the right. The soreness is present only when the testicle is squeezed; it does not bother him when standing or sitting. He inquires about the possibility of testicular cancer. He denies any family history of prostate cancer. Social History Tobacco Use Smoking status: Never Smokeless tobacco: Never Vaping Use Vaping status: Never Used Substance Use Topics Alcohol use: No Drug use: No Past medical history, appointments, medications, allergies reviewed. Pertinent Lab/Diagnostic Studies are reviewed and discussed today Current Outpatient Medications: ezetimibe (ZETIA) [address] (PROTONIX) 40 mg tablet cyanocobalamin (VITAMIN B-12) 1,000 mcg tab tamsulosin (FLOMAX) 0.4 mg QUERCETIN ORAL metoprolol tartrate, short acting, (LOPRESSOR) 25 mg tablet amLODIPine (NORVASC) 10 mg tablet losartan (COZAAR) 50 mg tablet furosemide (LASIX) 40 mg tablet amiodarone (PACERONE) 200 mg tablet potassium chloride 20 mEq TbER apixaban (ELIQUIS) 5 mg tab(s) Zinc Acetate, Oral, 25 mg (zinc) cap magnesium oxide 200 mg magnesium chew Ascorbic Acid (VITAMIN C) 1,000 mg tablet BIPAP OTC PRODUCT ferrous sulfate (IRON) 325 mg (65 mg iron) tablet Cholecalciferol, Vitamin D3, (VITAMIN D) 25 mcg (1,000 unit) cap Health Maintenance Shingrix Vaccine(2 of 3) DTaP,Tdap,Td Vaccine(2 - Tdap) Advance Directive Discussion@ Review Of Systems Cardiovascular: (+) lower extremity swelling Musculoskeletal: (+) leg tiredness Genitourinary: (+) left testicular swelling, (+) testicular tenderness Physical Exam BP 102/58 Pulse (!) 52 Resp 16 Wt 92.8 kg (204 lb 9.6 oz) BMI 31.11 kg/m? GENERAL: NAD, alert and oriented. SKIN: Unremarkable, no rash or skin lesions. HEAD: Normocephalic. EYES: PERRLA, EOMI, conjunctiva clear. NECK: Supple, no lymphadenopathy, normal thyroid, no carotid bruits. LUNGS: Clear to auscultation bilaterally, no wheezes/rhonchi/rales. HEART: Regular rate and rhythm, no murmurs. No ectopy. EXTREMITIES: No deformities, no skin discoloration, mild edema noted. ABDOMEN: Soft, non-tender, no masses. GENITOURINARY: Left testicle diffusely enlarged, tender to palpation. NEURO: Awake, alert and oriented x3, cranial nerves II-XII grossly intact, normal gait, no involuntary motions. Labs: - Creatinine: 1.39 mg/dL - Sodium: 1 mmol/L - GFR: 51 - Hemoglobin: normal - PSA: normal Imaging: - Echocardiogram: Mitral regurgitation with otherwise normal biventricular function Assessment and Plan 1. Anemia, unspecified type (D64.9) Hemoglobin levels have improved following intravenous iron therapy administered by Dr. Bustamante. Patient reports feeling better. - Continue follow-up with Dr. Bustamante. 2. Stage 3 chronic kidney disease, unspecified whether stage 3a or 3b CKD (HCC) (N18.30) Recent labs show stable kidney function with creatinine at 1.39 mg/dL and GFR at 51 mL/min/1.73 m?. 3. PARKER (obstructive sleep apnea) (G47.33) Patient is using CPAP machine. 4. Essential hypertension (I10) Blood pressure is well-controlled. 5. Anxiety and depression (F41.9) 6. Mixed hyperlipidemia (E78.2) 7. DINH (dyspnea on exertion) (R06.09) Patient reports leg fatigue, particularly when climbing stairs or getting in and out of the truck. 8. Prostate cancer screening (Z12.5) No urinary complaints. Last PSA was normal. - Ordered PSA test. 9. Testicular mass (N50.89) Left testicle is diffusely enlarged and tender on palpation. - Ordered scrotal ult (more content not included)...[facility] 06-14-2024 History of Present illness Narrative* Rebecca Dinh MD - 06/14/2024 3:39 PM EDT Reason for Visit Follow up DARÍO Arenas is a 84-year-old male, with a history of mitral regurgitation, anemia, and intermittent atrial fibrillation, presenting for evaluation of lower extremity edema and left testicular enlargement. Dagoberto reports intermittent lower extremity edema, for which he takes Lasix as needed. He inquires about the possibility of having CHF, noting that his advertising supervisor has not provided a clear answer. Sonya expresses concern about the potential renal effects of Lasix. He monitors his weight daily andtakes Lasix if he gains 2 pounds from one day to the next. He prefers to take Lasix in the afternoon rather than in the morning. He denies any urinary complaints. He reports feeling better after receiving intravenous iron for anemia before a recent trip to [place]. He notes that his legs sometimes feel tired, particularly when climbing stairs or getting in andout of his truck at work. 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 He uses a CPAP machine for sleep apnea and takes Eliquis for intermittent atrial fibrillation to prevent stroke. He also reports left testicular enlargement and soreness for at least 1 year, noting that the left testicle is "a lot bigger" and "swollen" compared to the right. The soreness is present only when the testicle is squeezed; it does not bother him when standing or sitting. He inquires about the possibility of testicular cancer. He denies any family history of prostate cancer. Social History Tobacco Use Smoking status: Never Smokeless tobacco: Never Vaping Use Vaping status: Never Used Substance Use Topics Alcohol use: No Drug use: No Past medical history, appointments, medications, allergies reviewed. Pertinent Lab/Diagnostic Studies are reviewed and discussed today Current Outpatient Medications: ezetimibe (ZETIA) [address] (PROTONIX) 40 mg tablet cyanocobalamin (VITAMIN B-12) 1,000 mcg tab tamsulosin (FLOMAX) 0.4 mg QUERCETIN ORAL metoprolol tartrate, short acting, (LOPRESSOR) 25 mg tablet amLODIPine (NORVASC) 10 mg tablet losartan (COZAAR) 50 mg tablet furosemide (LASIX) 40 mg tablet amiodarone (PACERONE) 200 mg tablet potassium chloride 20 mEq TbER apixaban (ELIQUIS) 5 mg tab(s) Zinc Acetate, Oral, 25 mg (zinc) cap magnesium oxide 200 mg magnesium chew Ascorbic Acid (VITAMIN C) 1,000 mg tablet BIPAP OTC PRODUCT ferrous sulfate (IRON) 325 mg (65 mg iron) tablet Cholecalciferol, Vitamin D3, (VITAMIN D) 25 mcg (1,000 unit) cap Health Maintenance Shingrix Vaccine(2 of 3) DTaP,Tdap,Td Vaccine(2 - Tdap) Advance Directive Discussion@ Review Of Systems Cardiovascular: (+) lower extremity swelling Musculoskeletal: (+) leg tiredness Genitourinary: (+) left testicular swelling, (+) testicular tenderness Physical Exam BP 102/58 Pulse (!) 52 Resp 16 Wt 92.8 kg (204 lb 9.6 oz) BMI 31.11 kg/m GENERAL: NAD, alert and oriented. SKIN: Unremarkable, no rash or skin lesions. HEAD: Normocephalic. EYES: PERRLA, EOMI, conjunctiva clear. NECK: Supple, no lymphadenopathy, normal thyroid, no carotid bruits. LUNGS: Clear to auscultation bilaterally, no wheezes/rhonchi/rales. HEART: Regular rate and rhythm, no murmurs. No ectopy. EXTREMITIES: No deformities, no skin discoloration, mild edema noted. ABDOMEN: Soft, non-tender, no masses. GENITOURINARY: Left testicle diffusely enlarged, tender to palpation. NEURO: Awake, alert and oriented x3, cranial nerves II-XII grossly intact, normal gait, no involuntary motions. Labs: - Creatinine: 1.39 mg/dL - Sodium: 1 mmol/L - GFR: 51 - Hemoglobin: normal - PSA: normal Imaging: - Echocardiogram: Mitral regurgitation with otherwise normal biventricular function Assessment and Plan 1. Anemia, unspecified type (D64.9) Hemoglobin levels have improved following intravenous iron therapy administered by Dr. Bsutamante. Patient reports feeling better. - Continue follow-up with Dr. Bustamante. 2. Stage 3 chronic kidney disease, unspecified whether stage 3a or 3b CKD (HCC) (N18.30) Recent labs show stable kidney function with creatinine at 1.39 mg/dL and GFR at 51 mL/min/1.73 m . 3. PARKER (obstructive sleep apnea) (G47.33) Patient is using CPAP machine. 4. Essential hypertension (I10) Blood pressure is well-controlled. 5. Anxiety and depression (F41.9) 6. Mixed hyperlipidemia (E78.2) 7. DINH (dyspnea on exertion) (R06.09) Patient reports leg fatigue, particularly when climbing stairs or getting in and out of the truck. 8. Prostate cancer screening (Z12.5) No urinary complaints. Last PSA was normal. - Ordered PSA test. 9. Testicular mass (N50.89) Left testicle is diffusely enlarged and tender on palpation. - Ordered scrotal ultrasound. - Referral to urology for further evaluation. - Follow-up in 3 months. Voice recognition software was used to compose this office note. Please excuse any unintended typographical errors. The patient consented to the use of ambient [employer] software for draft documentation of the visit consistent with [facility] Notice of Privacy Practices. Rebecca Dinh MD documented in this encounterMagruder Hospital04-07-2025 Instructions* Patient Instructions* Rebecca Dinh MD - 06/14/2024 3:39 PM EDT We discussed your leg swelling and use of Lasix: - You do not have a clear diagnosis of congestive heart failure based on your echocardiogram, but your mitral regurgitation may contribute to fluid retention. - Continue taking Lasix as needed when you notice swelling in your legs. Take it for 1-2 days untilthe swelling improves, then stop. It is okay to take it in the afternoon if that works better for you. - Monitor your weight daily. If you gain 2 pounds or more overnight, take Lasix as directed. - Consider wearing compression stockings to help reduce swelling in your legs. These can assist with fluid retention caused by gravity. We discussed your anemia and recent treatment: - Your hemoglobin levels have improved since receiving intravenous iron. Continue follow-up with Dr. Bustamante, who is managing this condition. Your next appointment with him is scheduled for the beginning of next month. We discussed your kidney function: - Your recent blood work showed stable kidney function, with a creatinine level of 1.39 and a GFR of 51. These results are good. We discussed your testicular swelling: - You reported that your left testicle is larger than the right and has been swollen for at least one year. It is sometimes tender when touched. - I performed a physical exam and confirmed that the left testicle is diffusely enlarged. - I have ordered a testicular ultrasound to evaluate the swelling further. Please complete this test as soon as possible. - I am referring you to a urologist for further evaluation and management. The urologist will review the ultrasound results and determine the next steps. We discussed your general health and follow-up: - Your anemia, kidney function, and overall lab results are improving. - Your PSA (prostate-specific antigen) was not checked during this visit. If you would like it tested, please let me know. - I will see you back in 3 months to follow up on your health and any updates from the urologist. Please complete the ultrasound and schedule your urology appointment promptly. Let us know if you have any new or worsening symptoms in the meantime. documented in this encounterMagruder Hospital03-25-2025 NotePatient Outreach (INTMMN) DAGOBERTO BAXTER JR ([id number]) 1940 M Date Time Provider Department 06/01/24 REBECCA DINH During your visit today, we recorded the following information about you: Allergies As of Date: 06/01/2024 Noted Allergy Reaction ATENOLOL 05/30/2003 16 - Unknown CRESTOR (ROSUVASTATIN CALCIUM) 05/18/2007 5 - Intolerance Comments: myalgia FEATHERS 05/30/2003 FRAGRANCES 05/30/2003 LIPITOR (ATORVASTATIN CALCIUM) 10/26/2004 8 - GI Upset LOVASTATIN 05/18/2007 5 - Intolerance Comments: myalgia POLLEN 05/30/2003 PRAVASTATIN 07/04/2009 5 - Intolerance Comments: myalgia RED YEAST RICE 05/18/2007 5 - Intolerance Comments: myalgia Date Reviewed: 01/13/2024 Reviewed by: Etelvina Gil MA - Fully Assessed Visit Diagnosis:CKD (chronic kidney disease) stage 3, GFR 30-59 ml/min (HCC) [N18.30] Order(s):BASIC METABOLIC PANEL [SQBMP] Order #: [id number] FUTURE Prescriptions as of 06/04/2024 - ezetimibe (ZETIA) 10 mg tablet Take 1 tablet by mouth once daily. - pantoprazole DR (PROTONIX) 40 mg tablet Take 1 tablet by mouth once daily. - cyanocobalamin (VITAMIN B-12) 1,000 mcg tab Take 1 tablet by mouth once daily. - tamsulosin (FLOMAX) 0.4 mg Take 1 capsule by mouth daily at bedtime. - QUERCETIN ORAL Take 1 tablet by mouth once daily. - metoprolol tartrate, short acting, (LOPRESSOR) 25 mg tablet Take 1 tablet by mouth two times a day. - amLODIPine (NORVASC) 10 mg tablet Take 1 tablet by mouth once daily. - losartan (COZAAR) 50 mg tablet Take 1 tablet by mouth once daily. - ferrous sulfate (IRON) 325 mg (65 mg iron) tablet Take 1 tablet by mouth once daily. - furosemide (LASIX) 40 mg tablet Take 1 tablet by mouth once daily. - amiodarone (PACERONE) 200 mg tablet Take 200 mg by mouth once daily. - potassium chloride 20 mEq TbER Take 1 tablet by mouth once daily. - apixaban (ELIQUIS) 5 mg tab(s) Take 2.5 mg by mouth two times a day. - Zinc Acetate, Oral, 25 mg (zinc) cap Take 1 capsule by mouth once daily. - magnesium oxide 200 mg magnesium chew Take 1 tablet by mouth once daily. - Cholecalciferol, Vitamin D3, (VITAMIN D) 25 mcg (1,000 unit) cap Take 1 capsule by mouth twice daily. - Ascorbic Acid (VITAMIN C) 1,000 mg tablet Take 1,000 mg by mouth once daily. - BIPAP Settings 23/01 with BUR 12, suitable mask per pt preference (Airfit F30), chin strap, head gear, humidity, tubing, lifetime supplies. G47.33 PARKER - OTC PRODUCT Take 1 tablet by mouth once daily. 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] 01/23/2006 10/10/2022 SURGICAL SCARS AND FIBROSIS OF SKIN [L90.5] 01/23/2006 10/10/2022 PERS HX SKIN MALIGNANCY: H/O BCC's [Z85.828] 01/23/2006 SOLAR LENTIGINES///DYSCHROMIA OTHER [L81.9] 01/23/2006 06/17/2013 Benign neoplasm of skin of trunk, except scrotu*01/23/2006 06/17/2013 Seborrheic Keratosis [L82.1] 01/23/2006 ACTINIC KERATOSES (Premalignant AK's) [L57.0] 09/18/2006 10/10/2022 ACTINIC DAMAGE//CHR SOLAR SKIN DAMAGE [L57.8] 09/18/2006 06/17/2013 Irritated//Inflamed Seborrheic Keratosis [L82.0]09/18/2006 10/10/2022 Skin Tag Papilloma [L91.9, L90.9] 09/18/2006 10/10/2022 XEROSIS///SEBACEOUS GLAND DIS NEC [L73.8] 03/11/2008 06/17/2013 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 10/10/2022 H/O BCC LEFT FACE MUSLIM/MALIG NEOPLASM SKIN TR*06/08/2008 03/13/2009 S/P aortic valve replacement [Z95.2] 06/19/2010 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] 01/13/2011 10/10/2022 Xerosis cutis [L85.3] 01/13/2011 10/10/2022 Solar Lentigo and Solar Lentigines [L81.4] 07/17/2011 10/10/2022 Castro angiomas [D18.01] 07/17/2011 10/10/2022 Medicare annual wellness visit, subsequent [Z00*02/24/2012 02/27/2015 Actinic skin damage [L57.8] 07/01/2012 Onychomycosis [B35.1] 07/01/2012 10/10/2022 Nail dystrophy [L60.3] 07/01/2012 08/31/2015 Tinea pedis [B35.3] 07/01/2012 10/10/2022 PARKER (obstructive sleep apnea) [G47.33] 01/27/2013 Medicare annual wellness visit, subsequent [Z00*02/27/2015 10/10/2022 Aneurysm of thoracic aorta (HCC) [I71.20] 07/25/2017 CKD (chronic kidney disease) stage 3, GFR 30-59*07/25/2017 Discharge planning issues [Z75.8] 09/18/2020 10/10/2022 Preop testing [Z01.818] 09/18/2020 10/01/2020 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 Mailed to pts. Residence in [place] Tigist Lakhwinder ISAAC Tineo [facility]03-04-2025 Miscellaneous Notes* Telephone Encounter - Tigist Tineo LPN - 05/11/2024 3:09 PM EST Spoke with pt. Mailed to pts. Residence in [place] Tigist Lakhwinder ISAAC Tineo * Telephone Encounter - Kalpana Carcamo - 05/11/2024 2:48 PM EST Patient requesting lab results be posted on my chart from [employer], under scanned documents. documented in this encounterMagruder Hospital03-04-2025 Telephone encounter Note * Telephone Encounter - Kalpana Carcamo - 05/11/2024 2:48 PM EST Patient requesting lab results be posted on my chart from [employer], under scanned documents. [facility]02-20-2025 Telephone encounter Note* Telephone Encounter - Cyndie Patino - 04/29/2024 4:38 PM EST Fax as requested Cyndie Patino [facility]02-20-2025 Miscellaneous Notes* Telephone Encounter - Cyndie Patino - 04/29/2024 4:38 PM EST Fax as requested Cyndie Patino * Telephone Encounter - Mar Proctor - 04/29/2024 12:27 PM EST Patient is requesting lab orders from 01/09/24 to be faxed to [place], [place]. documented in this encounterMagruder Hospital02-20-2025 Telephone encounter Note * Telephone Encounter - Mar Proctor - 04/29/2024 12:27 PM EST Patient is requesting lab orders from 01/09/24 to be faxed to [place], [place]. [facility]02-06-[facility]25 Telephone encounter Note* Telephone Encounter - Rebecca Dinh MD - 04/15/2024 11:09 AM EST Sheridan Can you pend all snf medication for 3 months and 3 refills so we have them a whole years worth. Thank you for al you do Regards, Rebecca Dinh MD [facility]02-06-2025 Miscellaneous Notes* Telephone Encounter - Rebecca Dinh MD - 04/15/2024 11:09 AM EST Sheridan Can you pend all snf medication for 3 months and 3 refills so we have them a whole years worth. Thank you for al you do Regards, Rebecca Dinh MD * Telephone Encounter - Sheridan Hoffman LPN - 04/14/2024 11:32 AM EST Pt called and he spoke with his Paint Grinder Dr. Pickard and was told pcp should be filling the medication below. The patient has been identified by name and date of : Yes Caregiver verified no other encounters exist for this prescription request: Yes Caregiver confirmed with patient/requestor that no other refills are due, in the near future, with this provider at this time: Yes The last office visit in the department: 01/13/2024 Does the patient have a future office visit with this provider/department: Yes 06/14/2024 Requested Prescriptions Pending Prescriptions Disp Refills ezetimibe (ZETIA) 10 mg tablet 90 tablet 1 Sig: Take 1 tablet by mouth once daily. Sheridan Hoffman LPN April 14, 2024 11:33 AM documented in this encounterMagruder Hospital02-05-2025 Telephone encounter Note * Telephone Encounter - Sheridan Hoffman LPN - 04/14/2024 11:32 AM EST Pt called and he spoke with his Paint Grinder Dr. Pickard and was told pcp should be filling the medication below. The patient has been identified by name and date of : Yes Caregiver verified no other encounters exist for this prescription request: Yes Caregiver confirmed with patient/requestor that no other refills are due, in the near future, with this provider at this time: Yes The last office visit in the department: 01/13/2024 Does the patient have a future office visit with this provider/department: Yes 06/14/2024 Requested Prescriptions Pending Prescriptions Disp Refills ezetimibe (ZETIA) 10 mg tablet 90 tablet 1 Sig: Take 1 tablet by mouth once daily. Sheridan Hoffman LPN April 14, 2024 11:33 AM [facility]12-18-2024 Telephone encounter Note* Telephone Encounter - Lois Reyna LPN - 02/25/2024 9:01 AM EST Spoke to Lela Arenas (Flomax) & Vitamin B-12 written 01/13/2024 for 90 tablets, 3 refills.Patient to check with pharmacy. Lois Reyna LPN [facility]12-18-2024 Miscellaneous Notes* Telephone Encounter - Lois Reyna LPN - 02/25/2024 9:01 AM EST Spoke to DagobertoJatinulosin (Flomax) & Vitamin B-12 written 01/13/2024 for 90 tablets, 3 refills.Patient to check with pharmacy. Lois Reyna LPN documented in this encounterMagruder Hospital11-05-2024 NoteHNO ID: [id number] Author: REBECCA DINH MD Service: ? Author Type: Physician Type: Progress Notes Filed: 01/13/2024 17:03 Note Text: Reason for Visit Patient presents with: Medicare Wellness Exam Dagoberto Baxter JR is a 81 year old male who presents here today for Above Complaints. Health Maintenance SHINGRIX VACCINE(2 of 3) DTAP,TDAP,TD(2 - Tdap) ADVANCE DIRECTIVE DISCUSSION DEPRESSION ASSESSMENT INFLUENZA(1) HPI Dagoberto Baxter JR is a 80 year old male. His past medical history significant for hypertension asthma sleep apnea bicuspid aortic valve with AMS. Status post AVR with #20 5C-E bovine pericardial graft, ascending aortic aneurysm repair 06/28/2003. Presented for operative consideration September 2020. 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 He underwent replacement of arch, elephant trunk graft into the arch to cover the left artery aneurysm origin, deployed stent in the left carotid and reconstruction of the R stent graft; AVR Flores valve and tricuspid valve repair. Patient was dosing off today in the office. He notes feeling very sleepy, uses the pap machine on a daily basis but is not rested in the morning, and he is sleeping a lot during the day time, if he sits down some where he begins to sleep immediately. 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 He was anemic after his cardiac surgery , we will check those levels again. HTN: Compliant with medications. Denies any chest pain, palpitations, or edema. No SOB. Doesn't check BP at home generally. Careful with diet to avoid salt, trying to eat more fruits and vegetables, exercises regularly. 01/13/2024: reviewed his history of discitis and 6 weeks of abx last year. He has since done very well. No pain in the back,. Has been having anemia, iron def and blood loss, following up with Dr. Olson who notes that he needs an EGD. Iron levels are replete at this time. Unclear reason he is bleeding, on protonix, he has been drinking a lot of caffeine recently, Bp is well controlled No problem-specific Assessment AND Plan notes found for this encounter. 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 [phone] Solar Lentigo and Solar Lentigines 07/17/2011 Unspecified essential hypertension Essential hypertension PAST SURGICAL HISTORY Procedure Laterality Date COLONOSCOPY W/BIOPSY 11/29/02 [facility] - hemorrhoids COLONOSCOPY FLX DX W/COLLJ SPEC WHEN PFRMD 12/14/12 Colonoscopy COLONOSCOPY FLX DX W/COLLJ SPEC WHEN PFRMD 12/14/12 Colonoscopy HEART VALVE REPLACEMENT 06/2003 Bovine Pericardial Heart Valve HEMORRHOIDECTOMY INTERNAL RUBBER BAND LIGATIONS Hemorrhoidectomy LEFT HEART CATH,PERCUTANEOUS 03/2003 Cardiac cath, L heart OPEN TX NASOETHMOID FX W/O EXTERNAL FIXATION FAMILY HISTORY Problem Relation Age of Onset Heart Mother valve replacement other (OHS) Mother 70 age 73 Coronary Artery Disease Father Hypertension Father other (Myocardial infarction) Father 69 Diabetes Father Heart Sister Hypertension Sister Heart Sister Stroke Sister Diabetes Sister Heart Sister Hypertension Brother Lipids Brother other (HTN) Brother Hypertension Brother Hypertension Brother Hypertension Brother Hypertension Brother Heart Brother Diabetes Brother Diabetes Maternal Grandmother other (Myocardial infarction) Maternal Grandfather 73 Social History Tobacco Use Smoking status: Never Smokeless tobacco: Never Vaping Use Vaping status: Never Used Substance Use Topics Alcohol use: No Drug use: No Past medical history, appointments, medications, allergies reviewed. Pertinent Lab/Diagnostic Studies are reviewed and discussed today Current Outpatient Medications: QUERCETIN ORAL metoprolol tartrate, short acting, (LOPRESSOR) 25 mg tablet amLODIPine (NORVASC) 10 mg tablet losartan (COZAAR) 50 mg tablet ferrous sulfate (IRON) 325 mg (65 mg iron) tablet furosemide (LASIX) 40 mg tablet tamsulosin (FLOMAX) 0.4 mg cyanocobalamin (VITAMIN B-12) 1,[address] (PROTONIX) 40 mg tablet amiodarone (PACERONE) 200 mg tablet potassium chloride 20 mEq TbER apixaban (ELIQUIS) 5 mg tab(s) Zinc Acetate, Oral, 25 mg (zinc) cap magnesium oxide 200 mg magnesium chew Cholecalciferol, Vitamin D3, (VITAMIN D) 25 mcg (1,000 unit) cap Ascorbic Acid (VITAMIN C) 1,000 mg tablet BIPAP OTC PRODUCT ezetimibe (ZETIA) 10 mg tablet Current Facility-Administered Medications: perflutren lipid microspheres 1.3 mL in NaCl (PF) 0.9% 10 mL injection (DEFINITY) sodium chloride 0.9 % (more content not included)...[facility] 01-13-2024 History of Present illness Narrative* Rebecca Dinh MD - 01/13/2024 2:42 PM EST Reason for Visit Patient presents with: Medicare Wellness Exam Dagoberto Baxter JR is a 81 year old male who presents here today for Above Complaints. Health Maintenance SHINGRIX VACCINE(2 of 3) DTAP,TDAP,TD(2 - Tdap) ADVANCE DIRECTIVE DISCUSSION DEPRESSION ASSESSMENT INFLUENZA(1) HPI Dagoberto Baxter JR is a 80 year old male. His past medical history significant for hypertension asthma sleep apnea bicuspid aortic valve with AMS. Status post AVR with #20 5C-E bovine pericardial graft, ascending aortic aneurysm repair 06/28/2003. Presented for operative consideration September 2020. 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 He underwent replacement of arch, elephant trunk graft into the arch to cover the left artery aneurysm origin, deployed stent in the left carotid and reconstruction of the R stent graft; AVR Flores valve and tricuspid valve repair. Patient was dosing off today in the office. He notes feeling very sleepy, uses the pap machine on adaily basis but is not rested in the morning, and he is sleeping a lot during the day time, if he sits down some where he begins to sleep immediately. 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 He was anemic after his cardiac surgery , we will check those levels again. HTN: Compliant with medications. Denies any chest pain, palpitations, or edema. No SOB. Doesn't check BP at home generally. Careful with diet to avoid salt, trying to eat more fruits and vegetables, exercises regularly. 01/13/2024: reviewed his history of discitis and 6 weeks of abx last year. He has since done very well. No pain in the back,. Has been having anemia, iron def and blood loss, following up with Dr. Olson who notes that he needs an EGD. Iron levels are replete at this time. Unclear reason he is bleeding, on protonix, he has been drinking a lot of caffeine recently, Bp is well controlled No problem-specific Assessment & Plan notes found for this encounter. 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 [phone] Solar Lentigo and Solar Lentigines 07/17/2011 Unspecified essential hypertension Essential hypertension PAST SURGICAL HISTORY Procedure Laterality Date COLONOSCOPY W/BIOPSY 11/29/02 [facility] - hemorrhoids COLONOSCOPY FLX DX W/COLLJ SPEC WHEN PFRMD 12/14/12 Colonoscopy COLONOSCOPY FLX DX W/COLLJ SPEC WHEN PFRMD 12/14/12 Colonoscopy HEART VALVE REPLACEMENT 06/2003 Bovine Pericardial Heart Valve HEMORRHOIDECTOMY INTERNAL RUBBER BAND LIGATIONS Hemorrhoidectomy LEFT HEART CATH,PERCUTANEOUS 03/2003 Cardiac cath, L heart OPEN TX NASOETHMOID FX W/O EXTERNAL FIXATION FAMILY HISTORY Problem Relation Age of Onset Heart Mother valve replacement other (OHS) Mother 70 age 73 Coronary Artery Disease Father Hypertension Father other (Myocardial infarction) Father 69 Diabetes Father Heart Sister Hypertension Sister Heart Sister Stroke Sister Diabetes Sister Heart Sister Hypertension Brother Lipids Brother other (HTN) Brother Hypertension Brother Hypertension Brother Hypertension Brother Hypertension Brother Heart Brother Diabetes Brother Diabetes Maternal Grandmother other (Myocardial infarction) Maternal Grandfather 73 Social History Tobacco Use Smoking status: Never Smokeless tobacco: Never Vaping Use Vaping status: Never Used Substance Use Topics Alcohol use: No Drug use: No Past medical history, appointments, medications, allergies reviewed. Pertinent Lab/Diagnostic Studies are reviewed and discussed today Current Outpatient Medications: QUERCETIN ORAL metoprolol tartrate, short acting, (LOPRESSOR) 25 mg tablet amLODIPine (NORVASC) 10 mg tablet losartan (COZAAR) 50 mg tablet ferrous sulfate (IRON) 325 mg (65 mg iron) tablet furosemide (LASIX) 40 mg tablet tamsulosin (FLOMAX) 0.4 mg cyanocobalamin (VITAMIN B-12) 1,[address] (PROTONIX) 40 mg tablet amiodarone (PACERONE) 200 mg tablet potassium chloride 20 mEq TbER apixaban (ELIQUIS) 5 mg tab(s) Zinc Acetate, Oral, 25 mg (zinc) cap magnesium oxide 200 mg magnesium chew Cholecalciferol, Vitamin D3, (VITAMIN D) 25 mcg (1,000 unit) cap Ascorbic Acid (VITAMIN C) 1,000 mg tablet BIPAP OTC PRODUCT ezetimibe (ZETIA) 10 mg tablet Current Facility-Administered Medications: perflutren lipid microspheres 1.3 mL in NaCl (PF) 0.9% 10 mL injection (DEFINITY) sodium chloride 0.9 % (flush) 10 mL (BD POSIFLUSH) Review of Systems CONSTITUTIONAL: No fevers, chills night sweats, unintended weight loss CARDIOVASCULAR: No chest pain, dyspnea, palpitations, orthopnea, PND, ankle edema. PULM: No dyspnea, unexplained cough. GI: No dysphagia/odynophagia, problematic reflux, constipation, diarrhea, changes in stool habits, hematochezia, melena. : No new urinary complaints, including dysuria, gross hematuria or pyuria. NEURO: No new balance problems, peripheral weakness/paresthesias or numbness of concern. Physical Exam BP 132/82 Pulse (!) 50 Ht 172.7 cm (5' 8") Wt 89 kg (196 lb 3.4 oz) SpO2 96% BMI 29.83 kg/m General appearance: Well appearing, alert, in no acute distress, well nourished. Skin: Skin color, texture, turgor normal, no suspicious rashes or lesions Head: Normocephalic, no masses, lesions, tenderness or abnormalities Eyes: Anicteric sclera. Pupils are equally round and reactive to light. Extraocular movements are intact. Lungs: Lungs clear to auscultation. No wheezing, rhonchi, rales Heart: RRR without murmur, gallop, or rubs. Extremities: No deformities, edema, skin discoloration, clubbing or cyanosis. Good capillary refill. ASSESSMENT/PLAN: 1. Mixed hyperlipidemia - ICD9: 272.2, ICD10: E78.2 (primary diagnosis) - Controlled - Counseled on healthy diet and regular exercise 2. Anemia, unspecified type - ICD9: 285.9, ICD10: D64.9 - PANTOPRAZOLE 40 MG TABLET,DELAYED RELEASE 3. On anticoagulant therapy - ICD9: V58.61, ICD10: Z79.01 - PANTOPRAZOLE 40 MG TABLET,DELAYED RELEASE - CONSULT TO GASTROENTEROLOGY 4. Mild anemia - ICD9: 285.9, ICD10: D64.9 Likely from GI bleed., needs a EGD., sent fax to Dr Pimnetel. - CYANOCOBALAMIN (VIT B-12) 1,000 MCG TABLET - CONSULT TO GASTROENTEROLOGY Rebecca Dinh MD documented in [facility]24 NoteHNO ID: [id number] Author: PATRICIA SANDERS, ? Service: ? Author Type: Nurse Practitioner Type: Progress Notes Filed: 01/09/2024 15:46 Note Text: Dagoberto Baxter JR 1940 01/09/2024 Hematologic problem(s): 1) Anemia. HPI: The patient is an 83-year-old male with past medical history significant for hyperlipidemia, aortic valve replacement, tricuspid valve repair, PARKER, a fib, chronic kidney disease, stage III and anemia. Admitted [facility] for back pain in October. Found to have severe anemia. Received 2 unit RBC transfusion. EGD--Three anigiodysplasias treated with heater probe. Esophageal candidiasis. Admitted again for back pain. Discitis. Completed antibiotics 01/08. Back feels better. On oral iron since second admission. Tolerating well. Mild constipation. Taking every other day. On Eliquis and ASA (started back on ASA). Gets dyspnea and legs get weak if climbs steps. 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 [place] better. Serum Cr up recently. Was told to decrease Lasix from 80 mg daily to 40 mg daily. 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 Presents for ongoing hematologic management. Interim history: Mr. Baxter presents today with his spouse. He denies any new issues. 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 Denies recent illness. No fevers, chills or NS. Appetite good. Energy level stable. No SOB, CP. Does not feel palpitations. No neuropathy. Denies any bleeding or bruising. 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 [phone] Solar Lentigo and Solar Lentigines 07/17/2011 Unspecified essential hypertension Essential hypertension PAST SURGICAL HISTORY Procedure Laterality Date COLONOSCOPY W/BIOPSY 11/29/02 [facility] - hemorrhoids COLONOSCOPY FLX DX W/COLLJ SPEC WHEN PFRMD 12/14/12 Colonoscopy COLONOSCOPY FLX DX W/COLLJ SPEC WHEN PFRMD 12/14/12 Colonoscopy HEART VALVE REPLACEMENT 06/2003 Bovine Pericardial Heart Valve HEMORRHOIDECTOMY INTERNAL RUBBER BAND LIGATIONS Hemorrhoidectomy LEFT HEART CATH,PERCUTANEOUS 03/2003 Cardiac cath, L heart OPEN TX NASOETHMOID FX W/O EXTERNAL FIXATION ALLERGIES Allergen Reactions Atenolol Unknown Crestor [Rosuvastat* Intolerance myalgia Feathers Fragrances Lipitor [Atorvastat* GI Upset Lovastatin Intolerance myalgia Pollen Pravastatin Intolerance myalgia Red Yeast Rice Intolerance myalgia Current Outpatient Medications Medication Sig QUERCETIN ORAL Take 1 tablet by mouth once daily. metoprolol tartrate, short acting, (LOPRESSOR) 25 mg tablet Take 1 tablet by mouth two times a day. amLODIPine (NORVASC) 10 mg tablet Take 1 tablet by mouth once daily. losartan (COZAAR) 50 mg tablet Take 1 tablet by mouth once daily. ferrous sulfate (IRON) 325 mg (65 mg iron) tablet Take 1 tablet by mouth once daily. (Patient taking differently: Take 325 mg by mouth three times a week.) furosemide (LASIX) 40 mg tablet Take 1 tablet by mouth once daily. tamsulosin (FLOMAX) 0.4 mg Take 1 capsule by mouth daily at bedtime. cyanocobalamin (VITAMIN B-12) 1,000 mcg tab Take 1 tablet by mouth once daily. pantoprazole DR (PROTONIX) 40 mg tablet Take 1 tablet by mouth once daily. amiodarone (PACERONE) 200 mg tablet Take 200 mg by mouth once daily. potassium chloride 20 mEq TbER Take 1 tablet by mouth once daily. apixaban (ELIQUIS) 5 mg tab(s) Take 2.5 mg by mouth two times a day. Zinc Acetate, Oral, 25 mg (zinc) cap Take 1 capsule by mouth once daily. magnesium oxide 200 mg magnesium chew Take 1 tablet by mouth once daily. Cholecalciferol, Vitamin D3, (VITAMIN D) 25 mcg (1,000 unit) cap Take 1 capsule by mouth twice daily. Ascorbic Acid (VITAMIN C) 1,000 mg tablet Take 1,000 mg by mouth once daily. BIPAP Settings / with BUR 12, suitable mask per pt preference (Airfit F30), chin strap, head gear, humidity, tubing, lifetime supplies. G47.33 PARKER ezetimibe (ZETIA) 10 mg tablet Take 1 tablet by mouth once daily. OTC PRODUCT Take 1 tablet by mouth once daily. Current Facility-Administered Medications Medication Dose Route Frequency perflutren lipid microspheres 1.3 mL in NaCl (PF) 0.9% 10 mL injection (DEFINITY) INTRAVENOUS DIRECTED PRN sodium chloride 0.9 % (flush) 10 mL (BD POSIFLUSH) 10 mL INTRAVENOUS DIRECTED PRN Social History Tobacco Use Smoking status: Never Smokeless tobacco: Never Vaping Use Vaping status: Never Used Substance Use Topics Alcohol use: No Drug use: No Family History Problem Relation Age of Onset Heart Mother valve replacement other (OHS) Mother 70 (more content not included)...[facility] 01-09-2024 History of Present illness Narrative* Patricia Sanders - 01/09/2024 1:28 PM EDT Dagoberto Baxter JR 1940 01/09/2024 Hematologic problem(s): 1) Anemia. HPI: The patient is an 83-year-old male with past medical history significant for hyperlipidemia, aortic valve replacement, tricuspid valve repair, PARKER, a fib, chronic kidney disease, stage III and anemia. Admitted [facility] for back pain in October. Found to have severe anemia. Received 2 unit RBC transfusion. EGD--Three anigiodysplasias treated with heater probe. Esophageal candidiasis. Admitted again for back pain. Discitis. Completed antibiotics 01/08. Back feels better. On oral iron since second admission. Tolerating well. Mild constipation. Taking every other day. On Eliquis and ASA (started back on ASA). Gets dyspnea and legs get weak if climbs steps. 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 [place] better. Serum Cr up recently. Was told to decrease Lasix from 80 mg daily to 40 mg daily. 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 Presents for ongoing hematologic management. Interim history: Mr. Baxter presents today with his spouse. He denies any new issues. 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 Denies recent illness. No fevers, chills or NS. Appetite good. Energy level stable. No SOB, CP. Does not feel palpitations. No neuropathy. Denies any bleeding or bruising. 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 [phone] Solar Lentigo and Solar Lentigines 07/17/2011 Unspecified essential hypertension Essential hypertension PAST SURGICAL HISTORY Procedure Laterality Date COLONOSCOPY W/BIOPSY 11/29/02 [facility] - hemorrhoids COLONOSCOPY FLX DX W/COLLJ SPEC WHEN PFRMD 12/14/12 Colonoscopy COLONOSCOPY FLX DX W/COLLJ SPEC WHEN PFRMD 12/14/12 Colonoscopy HEART VALVE REPLACEMENT 06/2003 Bovine Pericardial Heart Valve HEMORRHOIDECTOMY INTERNAL RUBBER BAND LIGATIONS Hemorrhoidectomy LEFT HEART CATH,PERCUTANEOUS 03/2003 Cardiac cath, L heart OPEN TX NASOETHMOID FX W/O EXTERNAL FIXATION ALLERGIES Allergen Reactions Atenolol Unknown Crestor [Rosuvastat* Intolerance myalgia Feathers Fragrances Lipitor [Atorvastat* GI Upset Lovastatin Intolerance myalgia Pollen Pravastatin Intolerance myalgia Red Yeast Rice Intolerance myalgia Current Outpatient Medications Medication Sig QUERCETIN ORAL Take 1 tablet by mouth once daily. metoprolol tartrate, short acting, (LOPRESSOR) 25 mg tablet Take 1 tablet by mouth two times a day. amLODIPine (NORVASC) 10 mg tablet Take 1 tablet by mouth once daily. losartan (COZAAR) 50 mg tablet Take 1 tablet by mouth once daily. ferrous sulfate (IRON) 325 mg (65 mg iron) tablet Take 1 tablet by mouth once daily. (Patient taking differently: Take 325 mg by mouth three times a week.) furosemide (LASIX) 40 mg tablet Take 1 tablet by mouth once daily. tamsulosin (FLOMAX) 0.4 mg Take 1 capsule by mouth daily at bedtime. cyanocobalamin (VITAMIN B-12) 1,000 mcg tab Take 1 tablet by mouth once daily. pantoprazole DR (PROTONIX) 40 mg tablet Take 1 tablet by mouth once daily. amiodarone (PACERONE) 200 mg tablet Take 200 mg by mouth once daily. potassium chloride 20 mEq TbER Take 1 tablet by mouth once daily. apixaban (ELIQUIS) 5 mg tab(s) Take 2.5 mg by mouth two times a day. Zinc Acetate, Oral, 25 mg (zinc) cap Take 1 capsule by mouth once daily. magnesium oxide 200 mg magnesium chew Take 1 tablet by mouth once daily. Cholecalciferol, Vitamin D3, (VITAMIN D) 25 mcg (1,000 unit) cap Take 1 capsule by mouth twice daily. Ascorbic Acid (VITAMIN C) 1,000 mg tablet Take 1,000 mg by mouth once daily. BIPAP Settings 16/11 with BUR 12, suitable mask per pt preference (Airfit F30), chin strap, head gear, humidity, tubing, lifetime supplies. G47.33 PARKER ezetimibe (ZETIA) 10 mg tablet Take 1 tablet by mouth once daily. OTC PRODUCT Take 1 tablet by mouth once daily. Current Facility-Administered Medications Medication Dose Route Frequency perflutren lipid microspheres 1.3 mL in NaCl (PF) 0.9% 10 mL injection (DEFINITY) INTRAVENOUS DIRECTED PRN sodium chloride 0.9 % (flush) 10 mL (BD POSIFLUSH) 10 mL INTRAVENOUS DIRECTED PRN Social History Tobacco Use Smoking status: Never Smokeless tobacco: Never Vaping Use Vaping status: Never Used Substance Use Topics Alcohol use: No Drug use: No Family History Problem Relation Age of Onset Heart Mother valve replacement other (OHS) Mother 70 age 73 Coronary Artery Disease Father Hypertension Father other (Myocardial infarction) Father 69 Diabetes Father Heart Sister Hypertension Sister Heart Sister Stroke Sister Diabetes Sister Heart Sister Hypertension Brother Lipids Brother other (HTN) Brother Hypertension Brother Hypertension Brother Hypertension Brother Hypertension Brother Heart Brother Diabetes Brother Diabetes Maternal Grandmother other (Myocardial infarction) Maternal Grandfather 73 ROS: Constitutional: No fever. No drenching night sweats. Normal appetite. No unexplained weight loss. Neuro: No recent INFANTE, vertigo, dizziness or imbalance. No symptoms of sensory neuropathy. HEENT: No recent change in voice, vision or hearing. Resp: No cough, wheeze of hemoptysis. No shortness of breath at rest. +DINH. CVS: No exertional chest pain, PND or orthopnea. No extremity swelling/edema. GI: No dysphagia or odynophagia. No reflux, n/v, change in bowel habits. : No dysuria or gross hematuria. Endo: No hot flashes. No polyuria or polydipsia. No heat or cold intolerance. Musculoskeletal: No bone, joint and muscular pain. Derm: No current rash. No history of jaundice. No diffuse pruritis. Heme: No unusual bleeding and unexplained bruising. Psych: Normal mood. All systems reviewed on 01/09/2024 with pertinent positives and negatives as outlined in the interval history. PHYSICAL EXAM: Vitals: Blood pressure 126/54, pulse (!) 52, temperature 36.2 C (97.2 F), temperature source Temporal, weight 91.2 kg (201 lb), SpO2 96%. Well-appearing and in no acute distress. LYMPHATIC: There is no palpable cervical, supraclavicular adenopathy. RESPIRATORY: Inspiratory breath sounds are of normal intensity in all fuentes. No rales, wheezes or rhonchi. CARDIOVASCULAR: Rhythm is regular with occasional ectopy. ABDOMEN: The abdomen is nondistended. No splenomegaly or hepatomegaly. No tenderness. Extremities: No swelling or edema. SKIN: No jaundice. I have performed the physical exam today (01/09/2024) and have edited the note to correlate with current findings. LABS: Lab Results Component Value Date WBC 8.23 01/07/2024 HB 10.4 (L) 01/07/2024 MCV 96.8 01/07/2024 PLT 189 01/07/2024 Lab Results Component Value Date NA 142 07/30/2023 K 4.0 07/30/2023 CO2 26 07/30/2023 BUN 34 (H) 07/30/2023 CREAT 1.60 (A) 10/09/2023 TBILI 0.5 01/18/2023 TPROT 6.8 01/18/2023 ALB 4.1 01/18/2023 ALKPHOS 97 01/18/2023 ALT 9 (L) 01/18/2023 AST 15 01/18/2023 ASSESSMENT/PLAN: (D64.9) Anemia, unspecified type (primary encounter diagnosis) Assessment: -Chronic mild anemia. Overall stable -Anemia likely due to GI blood loss and iron malabsorption (on PPI). - recommend GI f/u -Mild anemia persists. -Iron stable--monitor for degree of CKD. -overall hgb stable -DE to may -not a candidate for epo at this time. Plan: - continue with PO iron - monitor iron studies and cbc in months -Follow up with cardiology and PCP for CKD/diuresis management. 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 Portions of this note including HPI, ROS, impression/plan may have been copied forward as to provide important historical information essential in contributing to medical decision making. Documentation has been reviewed and edited as necessary to support clinical decision making for today's visit and to reflect my own independent evaluation of this patient. documented in this encounterMag[facility]10-[facility]-2024 NotePatient Outreach ([facility]) DAGOBERTO BAXTER JR ([id number]) 1940 M Date Time Provider Department 12/30/23 REBECCA DINH [facility] During your visit today, we recorded the following information about you: Allergies As of Date: 12/30/2023 Noted Allergy Reaction ATENOLOL 05/30/2003 16 - Unknown CRESTOR (ROSUVASTATIN CALCIUM) 05/18/2007 5 - Intolerance Comments: myalgia FEATHERS 05/30/2003 FRAGRANCES 05/30/2003 LIPITOR (ATORVASTATIN CALCIUM) 10/26/2004 8 - GI Upset LOVASTATIN 05/18/2007 5 - Intolerance Comments: myalgia POLLEN 05/30/2003 PRAVASTATIN 07/04/2009 5 - Intolerance Comments: myalgia RED YEAST RICE 05/18/2007 5 - Intolerance Comments: myalgia Date Reviewed: 10/09/2023 Reviewed by: Deysi Venegas MA - Fully Assessed Visit Diagnoses:Mixed hyperlipidemia [E78.2] Medication management [Z79.899] Order(s):LIPID PANEL BASIC [SQLIPB] Order #: [id number] FUTURE THYROID STIMULATING HORMONE [SQTSH] Order #: [id number] FUTURE ASPARTATE AMINOTRANSFERASE/SGOT [SQAST] Order #: [id number] FUTURE ALANINE AMINOTRANSFERASE / SGPT [SQALT] Order #: [id number] FUTURE MAGNESIUM [SQMG1] Order #: [id number] FUTURE Prescriptions as of 01/02/2024 - metoprolol tartrate, short acting, (LOPRESSOR) 25 mg tablet Take 1 tablet by mouth two times a day. - amLODIPine (NORVASC) 10 mg tablet Take 1 tablet by mouth once daily. - losartan (COZAAR) 50 mg tablet Take 1 tablet by mouth once daily. - ferrous sulfate (IRON) 325 mg (65 mg iron) tablet Take 1 tablet by mouth once daily. - furosemide (LASIX) 40 mg tablet Take 1 tablet by mouth once daily. - tamsulosin (FLOMAX) 0.4 mg Take 1 capsule by mouth daily at bedtime. - cyanocobalamin (VITAMIN B-12) 1,000 mcg tab Take 1 tablet by mouth once daily. - pantoprazole DR (PROTONIX) 40 mg tablet Take 1 tablet by mouth once daily. - amiodarone (PACERONE) 200 mg tablet Take 200 mg by mouth once daily. - potassium chloride 20 mEq TbER Take 1 tablet by mouth once daily. - apixaban (ELIQUIS) 5 mg tab(s) Take 2.5 mg by mouth two times a day. - Zinc Acetate, Oral, 25 mg (zinc) cap Take 1 capsule by mouth once daily. - ezetimibe (ZETIA) 10 mg tablet Take 1 tablet by mouth once daily. - magnesium oxide 200 mg magnesium chew Take 1 tablet by mouth once daily. - Cholecalciferol, Vitamin D3, (VITAMIN D) 25 mcg (1,000 unit) cap Take 1 capsule by mouth twice daily. - Ascorbic Acid (VITAMIN C) 1,000 mg tablet Take 1,000 mg by mouth once daily. - BIPAP Settings 23/01 with BUR 12, suitable mask per pt preference (Airfit F30), chin strap, head gear, humidity, tubing, lifetime supplies. G47.33 PARKER - OTC PRODUCT Take 1 tablet by mouth once daily. 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] 01/23/2006 10/10/2022 SURGICAL SCARS AND FIBROSIS OF SKIN [L90.5] 01/23/2006 10/10/2022 PERS HX SKIN MALIGNANCY: H/O BCC's [Z85.828] 01/23/2006 SOLAR LENTIGINES///DYSCHROMIA OTHER [L81.9] 01/23/2006 06/17/2013 Benign neoplasm of skin of trunk, except scrotu*01/23/2006 06/17/2013 Seborrheic Keratosis [L82.1] 01/23/2006 ACTINIC KERATOSES (Premalignant AK's) [L57.0] 09/18/2006 10/10/2022 ACTINIC DAMAGE//CHR SOLAR SKIN DAMAGE [L57.8] 09/18/2006 06/17/2013 Irritated//Inflamed Seborrheic Keratosis [L82.0]09/18/2006 10/10/2022 Skin Tag Papilloma [L91.9, L90.9] 09/18/2006 10/10/2022 XEROSIS///SEBACEOUS GLAND DIS NEC [L73.8] 03/11/2008 06/17/2013 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 10/10/2022 H/O BCC LEFT FACE MUSLIM/MALIG NEOPLASM SKIN TR*06/08/2008 03/13/2009 S/P aortic valve replacement [Z95.2] 06/19/2010 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] 01/13/2011 10/10/2022 Xerosis cutis [L85.3] 01/13/2011 10/10/2022 Solar Lentigo and Solar Lentigines [L81.4] 07/17/2011 10/10/2022 Castro angiomas [D18.01] 07/17/2011 10/10/2022 Medicare annual wellness visit, subsequent [Z00*02/24/2012 02/27/2015 Actinic skin damage [L57.8] 07/01/2012 Onychomycosis [B35.1] 07/01/2012 10/10/2022 Nail dystrophy [L60.3] 07/01/2012 08/31/2015 Tinea pedis [B35.3] 07/01/2012 10/10/2022 PARKER (obstructive sleep apnea) [G47.33] 01/27/2013 Medicare annual wellness visit, subsequent [Z00*02/27/2015 10/10/2022 Aneurysm of thoracic aorta (HCC) [I71.20] 07/25/2017 CKD (chronic kidney disease) stage 3, GFR 30-59*07/25/2017 Discharge planning issues [Z75.8] 09/18/2020 10/10/2022 Preop testing [Z01.818] 09/18/2020 10/01/2020 Aneurys (more content not included)...[facility]09-23-2024 Telephone encounter Note* Telephone Encounter - Yenny Mckeon LPN - 12/01/2023 4:19 PM EDT Prescription Refill Information The patient has been identified by name and date of : Yes Caregiver verified no other encounters exist for this prescription request: Yes Caregiver confirmed with patient/requestor that no other refills are due, in the near future, with this provider at this time: Yes The last office visit in the department: 07/09/23 Does the patient have a future office visit with this provider/department: Yes 01/13/24 Requested Prescriptions Pending Prescriptions Disp Refills metoprolol tartrate, short acting, (LOPRESSOR) 25 mg tablet 180 tablet 3 Sig: Take 1 tablet by mouth two times a day. Yenny Mckeon LPN December 01, 2023 4:19 PM [facility]09-23-2024 Miscellaneous Notes* Telephone Encounter - Yenny Mckeon LPN - 12/01/2023 4:19 PM EDT Prescription Refill Information The patient has been identified by name and date of : Yes Caregiver verified no other encounters exist for this prescription request: Yes Caregiver confirmed with patient/requestor that no other refills are due, in the near future, with this provider at this time: Yes The last office visit in the department: 07/09/23 Does the patient have a future office visit with this provider/department: Yes 01/13/24 Requested Prescriptions Pending Prescriptions Disp Refills metoprolol tartrate, short acting, (LOPRESSOR) 25 mg tablet 180 tablet 3 Sig: Take 1 tablet by mouth two times a day. Yenny Mckeon LPN December 01, 2023 4:19 PM documented in this encounterMag[facility]08-[facility]24 Telephone encounter Note * Telephone Encounter - Nadine Dowling LPN - 10/13/2023 11:11 AM EDT Patient MyChart message requesting the following refill Refill(s) Requested: Requested Prescriptions Pending Prescriptions Disp Refills amLODIPine (NORVASC) 10 mg tablet 90 tablet 3 Sig: Take 1 tablet by mouth once daily. ALLERGIES Allergen Reactions Atenolol Unknown Crestor [Rosuvastat* Intolerance myalgia Feathers Fragrances Lipitor [Atorvastat* GI Upset Lovastatin Intolerance myalgia Pollen Pravastatin Intolerance myalgia Red Yeast Rice Intolerance myalgia (home) [phone] (cell) Last Office Visit Date: 07/09/2023 Last [facility] Visit: Visit date not found Future Appointment: 01/13/2024 The patients preferred pharmacy has been captured for this encounter? yes Request is for script(s) to be escript to pharmacy. Nadine Dowling LPN [facility]08-05-2024 Miscellaneous Notes* Telephone Encounter - Nadine Dowling LPN - 10/13/2023 11:11 AM EDT Patient MyChart message requesting the following refill Refill(s) Requested: Requested Prescriptions Pending Prescriptions Disp Refills amLODIPine (NORVASC) 10 mg tablet 90 tablet 3 Sig: Take 1 tablet by mouth once daily. ALLERGIES Allergen Reactions Atenolol Unknown Crestor [Rosuvastat* Intolerance myalgia Feathers Fragrances Lipitor [Atorvastat* GI Upset Lovastatin Intolerance myalgia Pollen Pravastatin Intolerance myalgia Red Yeast Rice Intolerance myalgia (home) [phone] (cell) Last Office Visit Date: 07/09/2023 Last [facility] Visit: Visit date not found Future Appointment: 01/13/2024 The patients preferred pharmacy has been captured for this encounter? yes Request is for script(s) to be escript to pharmacy. Nadine Dowling LPN documented in this encounterMagruder Hospital08-01-[facility]24 History of Present illness Narrative* Nadine Proctor RN - 10/09/2023 1:55 PM EDT IRB [id number]: BLUE PI: Dr. Vaughan Study Visit: Annual I met with the patient for the 3 year follow up for the Lashawn-SAFER Study. Reaffirmed that the patient still wishes to participate in the study and continues to consent to the study. Has the patient had any changes in his health since the last study visit? No Medications and allergy lists updated and current. Has the patient had any outside hospitalizations/ER visits: Yes Dates and locations: [place] 11/2022 Modified Rich completed: Yes Modified Rich Score: 1 = No significant disability despite symptoms; able to carry out all usual duties and activities. Expressed to guillermo this is the last study visit and appreciated his participation for research. Patient contact information reaffirmed and updated. Coordinator contact information provided to the patient. Education provided: Follow up requirements/schedule Materials dispensed: Coordinator Contact Card Parking stipend given Nadine Proctor RN Pager #: [phone] documented in this encounterMagruder Hospital08-01-[facility]24 History of Present illness Narrative* Armida Long APRN.MAINTENANCE OPERATOR - 10/09/2023 1:30 PM EDT Images from the original note were not included. FOLLOW-UP Aortic Aneurysm and Aortic Repair Patient Type: Established REFERRED BY: Alber Mallory M.D. PCP: Rebecca Dinh [address] [place] [address] Other Physician: Reynaldo Vaughan [address] [facility] [id number] Patient Mr. Baxter returns, now 12 months following the last assessment of his descending thoracic, arch, and ascending Aortic Repair and AVR and TV Repair. The patient is asymptomatic. Last fall he diagnosed with spinal disc infection and bacteremia. He was hospitalized and eventually resolved with antibiotics for 6 weeks. 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 09/27/2020 -- Dr Fleming & [place] Ascending and subclavian aneurysm, REDO arch-FET -covering subclavian and left carotid, viabahn into the left carotid (subcalvian had prior CS bypass) BSAFE. AVR 25 bio, TVr 28 MC3. ascending replacement with 30 gelweave 09/22/2020 -- Dr Beckwith left carotid-subclavian bypass 06/28/2003 -- Dr Champion Median sternotomy; open heart; aortic valve replacement with a #25 Ken-Flores bovine pericardial heterograft. The CT scan was reviewed and reveals a a stable aortic repair and normal caliber aorta beyond the graft. The Echocardiogram reveals normal ventricular function and moderate mitral regurgitation, well functioning AVR and TV Repair. Last ECHO Result Conclusion ECHO Collected: 10/09/2023 10:45 AM (Final result) Impression: CONCLUSIONS: - Exam indication: F/u AVR, TVr & aortic arch replacement (frozen elephant trunk) - The left ventricle is normal in size. Left ventricular systolic function is normal. EF = 57 5% (2D biplane) - The right ventricle is normal in size. Right ventricular systolic function is normal. - The left atrial cavity is dilated. - There is moderate (2+) mitral valve regurgitation. Regurgitant orifice area (PISA) is 0.47 cm . MR severity may be underestimated due to eccentric jet. - Post tricuspid valve repair. Flores MC3 Tricuspid Ring (size #28). There is trace tricuspid valve regurgitation. The peak gradient is 6 mmHg and the mean gradient is 1 mmHg. Prior peak/mean gradient of 7/2 mmHg. - Flores prosthetic aortic valve (size #25). There is trace aortic valve regurgitation. The peak gradient is 25 mmHg, the mean gradient is 14 mmHg and the dimensionless valve index is 0.34. Prior peak/mean gradient of 19/10 mmHg. - Exam was compared with the prior echocardiographic exam performed on 11/01/2021. Similar findings today. * * * Final * * * Last CT Result Conclusion CTA CHEST (NONGATED) WO/W IVCON Exam End: 10/09/2023 12:50 PM (Final result) Impression: IMPRESSION: 1. 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 There are no findings to suggest complication. 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 2. The abdominal aorta is normal in course and caliber with moderate atherosclerotic calcifications of the infrarenal abdominal aorta. 3. Moderate left atrial dilation, top normal RIGHT atrial size. Post post tricuspid annuloplasty band. The coronary arteries have normal origins and courses. There are scattered coronary calcifications, though this study was not optimized for coronary artery evaluation. Utility Person: [facility] Transcribe Date/Time: Oct 09 2023 1:03P Dictated by : CAMILA PRITCHETT MD This examination was interpreted and the report reviewed and electronically signed by: CAMILA PRITCHETT MD on Oct 09 2023 1:18PM EST Impression: The patient is doing well, after the last visit. (I71.21) Aneurysm of ascending aorta without rupture (HCC) (primary encounter diagnosis) (Z95.828) H/O aortic arch replacement (Z95.828) 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 Comment: (Z98.890, Z86.79) S/P ascending aortic aneurysm repair Plan: Follow Up CTA (Z95.2) S/P AVR (aortic valve replacement) Comment: well functioning AVR Plan: Follow Up Echo (Z98.890) S/P TVR (tricuspid valve repair) Comment: Well functioning, TV repair Plan: Follow Up Echo (I34.0) Nonrheumatic mitral valve regurgitation Comment: Moderate Plan: Follow Up Echo Plan: He will return to see me in 24 months The following studies will be necessary: - CT C/A/P with and without contrast, post stent - Echocardiogram Armida Long APRN.MAINTENANCE OPERATOR documented in this encounterMagruder Hospital08-01-2024 History of Present illness Narrative* Kasi Pro RN - 10/09/2023 12:30 PM EDT Radiology Service Progress Note DATE OF SERVICE: October 09, 2023 TIME: 12:17 PM PATIENT WEIGHT: 202LBS PATIENT IDENTITY VERIFICATION COMPLETED USING TWO (2) STANDARD IDENTIFIERS: Name and Date of confirmed by patient verbally and Name and Date of confirmed by identification band. FALL SCREENING: Has the patient had 2 falls in the last year or 1 fall with injury or currently using an Ambulatory Assistive Device (Walker, Cane, Wheelchair, Crutches, etc.)? No PATIENT GENDER DATA: Male ALLERGIES: Reviewed and unchanged CONTRAST ALLERGY: No EXAM: CT -CONTRAST INDUCED NEPHROPATHY RISK FACTORS: Patient age > 60 years CREATININE: Creatinine Date Value Ref Range Status 07/30/2023 1.44 (H) 0.73 - 1.22 mg/dL Final 07/11/2023 1.66 (H) 0.73 - 1.22 mg/dL Final Creatinine (POCT) Date Value Ref Range Status 10/09/2023 1.60 (A) 0.7 - 1.4 mg/dL Final eGFR (POCT) Date Value Ref Range Status 10/09/2023 43 mL/min/1.73 m2 Final eGFR- Date Value Ref Range Status 02/15/2021 >60 Final P.O.C.T. RESULTS: POC done: Yes, See Lab Tab October 09, 2023 TREATMENT: No Hydration needed. IV SITE: Ambulatory: A peripheral IV was started in the Left antecubital site with a Angio cath: 20gauge. and A Saline lock was inserted per protocol IV SITE APPEARANCE: Clean,Dry and Intact SIGNATURE: Kasi Pro RN PATIENT NAME: Dagoberto Baxter JR DATE: October 09, 2023 TIME: 12:17 PM * Mckenzie Thompson RT(R) - 10/09/2023 12:30 PM EDT Radiology Service Progress Note PATIENT NAME: Dagoberto Baxter JR DATE OF SERVICE: October 09, 2023 TIME: 12:46 PM PATIENT IDENTITY VERIFICATION COMPLETED USING TWO (2) IDENTIFIERS: Name and Date of confirmedby patient verbally and Name and Date of confirmed by identification band. FALL SCREENING: Has the patient had 2 falls in the last year or 1 fall with injury or currently using an Ambulatory Assistive Device (Walker, Cane, Wheelchair, Crutches, etc.)? No PATIENT GENDER DATA: Male PATIENT RELEVANT IMPLANT DATA REVIEWED: Yes PATIENT PRESENTS WITH AN IMPLANTABLE OR ATTACHED ECHO TECHNOLOGIST: No RADIOLOGY DEPARTMENT: CT; Exam(s) Completed: Cardiac PERIPHERAL IV DATA: Site assessment: Clean,Dry and Intact, Site disposition Discontinued SIGNED BY: RT Negin(R) October 09, 2023 12:46 PM documented in this encounterMag[facility]07-15-2024 History of Present illness Narrative* Victor Manuel Olson, - 09/22/2023 2:26 PM EDT Hematologic problem(s): 1) Anemia. HPI: The patient is an 83-year-old male with past medical history significant for hyperlipidemia, aortic valve replacement, tricuspid valve repair, PARKER, a fib, chronic kidney disease, stage III and anemia. Admitted [facility] for back pain in October. Found to have severe anemia. Received 2 unit RBC transfusion. EGD--Three anigiodysplasias treated with heater probe. Esophageal candidiasis. Admitted again for back pain. Discitis. Completed antibiotics 01/08. Back feels better. On oral iron since second admission. Tolerating well. Mild constipation. Taking every other day. On Eliquis and ASA (started back on ASA). Gets dyspnea and legs get weak if climbs steps. 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 Presents for ongoing hematologic management. Interim history: Received parenteral iron February 2023. [place] better. Serum Cr up recently. Was told to decrease Lasix from 80 mg daily to 40 mg daily. 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 [phone] Solar Lentigo and Solar Lentigines 07/17/2011 Unspecified essential hypertension Essential hypertension PAST SURGICAL HISTORY Procedure Laterality Date COLONOSCOPY W/BIOPSY 11/29/02 [facility] - hemorrhoids COLONOSCOPY FLX DX W/COLLJ SPEC WHEN PFRMD 12/14/12 Colonoscopy COLONOSCOPY FLX DX W/COLLJ SPEC WHEN PFRMD 12/14/12 Colonoscopy HEART VALVE REPLACEMENT 06/2003 Bovine Pericardial Heart Valve HEMORRHOIDECTOMY INTERNAL RUBBER BAND LIGATIONS Hemorrhoidectomy LEFT HEART CATH,PERCUTANEOUS 03/2003 Cardiac cath, L heart OPEN TX NASOETHMOID FX W/O EXTERNAL FIXATION ALLERGIES Allergen Reactions Atenolol Unknown Crestor [Rosuvastat* Intolerance myalgia Feathers Fragrances Lipitor [Atorvastat* GI Upset Lovastatin Intolerance myalgia Pollen Pravastatin Intolerance myalgia Red Yeast Rice Intolerance myalgia Current Outpatient Medications Medication Sig losartan (COZAAR) 50 mg tablet Take 1 tablet by mouth once daily. ferrous sulfate (IRON) 325 mg (65 mg iron) tablet Take 1 tablet by mouth once daily. (Patient taking differently: Take 325 mg by mouth three times a week.) furosemide (LASIX) 40 mg tablet Take 1 tablet by mouth once daily. tamsulosin (FLOMAX) 0.4 mg Take 1 capsule by mouth daily at bedtime. cyanocobalamin (VITAMIN B-12) 1,000 mcg tab Take 1 tablet by mouth once daily. metoprolol tartrate, short acting, (LOPRESSOR) 25 mg tablet Take 1 tablet by mouth two times a day. pantoprazole DR (PROTONIX) 40 mg tablet Take 1 tablet by mouth once daily. amiodarone (PACERONE) 200 mg tablet Take 200 mg by mouth once daily. potassium chloride 20 mEq TbER Take 1 tablet by mouth once daily. apixaban (ELIQUIS) 5 mg tab(s) Take 2.5 mg by mouth two times a day. Zinc Acetate, Oral, 25 mg (zinc) cap Take 1 capsule by mouth once daily. amLODIPine (NORVASC) 10 mg tablet Take 1 tablet by mouth once daily. ezetimibe (ZETIA) 10 mg tablet Take 1 tablet by mouth once daily. magnesium oxide 200 mg magnesium chew Take 1 tablet by mouth once daily. Cholecalciferol, Vitamin D3, (VITAMIN D) 25 mcg (1,000 unit) cap Take 1 capsule by mouth twice daily. Ascorbic Acid (VITAMIN C) 1,000 mg tablet Take 1,000 mg by mouth once daily. BIPAP Settings 16/11 with BUR 12, suitable mask per pt preference (Airfit F30), chin strap, head gear, humidity, tubing, lifetime supplies. G47.33 PARKER OTC PRODUCT Take 1 tablet by mouth once daily. Current Facility-Administered Medications Medication Dose Route Frequency perflutren lipid microspheres 1.3 mL in NaCl (PF) 0.9% 10 mL injection (DEFINITY) INTRAVENOUS DIRECTED PRN sodium chloride 0.9 % (flush) 10 mL (BD POSIFLUSH) 10 mL INTRAVENOUS DIRECTED PRN Social History Tobacco Use Smoking status: Never Smokeless tobacco: Never Vaping Use Vaping Use: Never used Substance Use Topics Alcohol use: No Drug use: No Family History Problem Relation Age of Onset Heart Mother valve replacement other (OHS) Mother 70 age 73 Coronary Artery Disease Father Hypertension Father other (Myocardial infarction) Father 69 Diabetes Father Heart Sister Hypertension Sister Heart Sister Stroke Sister Diabetes Sister Heart Sister Hypertension Brother Lipids Brother other (HTN) Brother Hypertension Brother Hypertension Brother Hypertension Brother Hypertension Brother Heart Brother Diabetes Brother Diabetes Maternal Grandmother other (Myocardial infarction) Maternal Grandfather 73 ROS: Constitutional: No fever. No drenching night sweats. Normal appetite. No unexplained weight loss. Neuro: No recent INFANTE, vertigo, dizziness or imbalance. No symptoms of sensory neuropathy. HEENT: No recent change in voice, vision or hearing. Resp: No cough, wheeze of hemoptysis. No shortness of breath at rest. +DINH. CVS: No exertional chest pain, PND or orthopnea. No extremity swelling/edema. GI: No dysphagia or odynophagia. No reflux, n/v, change in bowel habits. : No dysuria or gross hematuria. Endo: No hot flashes. No polyuria or polydipsia. No heat or cold intolerance. Musculoskeletal: No bone, joint and muscular pain. Derm: No current rash. No history of jaundice. No diffuse pruritis. Heme: No unusual bleeding and unexplained bruising. Psych: Normal mood. PHYSICAL EXAM: Vitals: Blood pressure 137/75, pulse (!) 45, temperature 37.2 C (98.9 F), temperature source Temporal, weight 91.6 kg (202 lb), SpO2 95%. Well-appearing and in no acute distress. LYMPHATIC: There is no palpable cervical, supraclavicular adenopathy. RESPIRATORY: Inspiratory breath sounds are of normal intensity in all fuentes. No rales, wheezes or rhonchi. CARDIOVASCULAR: Rhythm is regular with occasional ectopy. ABDOMEN: The abdomen is nondistended. No splenomegaly or hepatomegaly. No tenderness. Extremities: No swelling or edema. SKIN: No jaundice. LABS: Latest Ref [facility] 09/15/2023 WBC 3.70 - 11.00 k/uL 7.59 RBC 4.20 - 6.00 m/uL 3.66 (L) Hemoglobin 13.0 - 17.0 g/dL 11.0 (L) Hematocrit 39.0 - 51.0 % 34.5 (L) MCV 80.0 - 100.0 fL 94.3 MCH 26.0 - 34.0 pg 30.1 MCHC 30.5 - 36.0 g/dL 31.9 RDW-CV 11.5 - 15.0 % 13.4 Platelet Count 150 - 400 k/uL 164 MPV 9.0 - 12.7 fL 8.8 (L) Neut% % 68.0 Abs Neut (ANC) 1.45 - 7.50 k/uL 5.16 Lymph% % 16.3 Abs Lymph 1.00 - 4.00 k/uL 1.24 [place]% % 5.9 Abs [place] <0.87 k/uL 0.45 Eosin% % 8.8 Abs Eosin <0.46 k/uL 0.67 (H) Baso% % 0.7 Abs Baso <0.11 k/uL 0.05 Immature Gran % % 0.3 IMMATURE GRANS (ABS) <0.10 k/uL <0.03 NRBC /100 WBC 0.0 Absolute nRBC <0.01 k/uL <0.01 DTYPE Auto Iron 41 - 186 ug/dL 62 TIBC 232 - 386 ug/dL 329 Transferrin Saturation 15.0 - 57.0 % 18.8 Ferritin 30.3 - 565.7 ng/mL 64.7 ASSESSMENT/PLAN: (D64.9) Anemia, unspecified type (primary encounter diagnosis) Assessment: -Chronic mild anemia. -Anemia likely due to GI blood loss and iron malabsorption (on PPI). -Mild anemia persists. -Iron decreasing--low for degree of CKD. -Increase oral iron to once daily. Plan: -Another course of parenteral iron. -Follow up with cardiology and PCP for CKD/diuresis management. Portions of this documentation were copied and pasted from previous office visit notes in order to provide a cohesive continuity of the history. The note has been reviewed and edited and updated as necessary. I spent a total of 20 minutes on the date of the service which included preparing to see the patient, [id number] patient care, completing clinical documentation, obtaining and/or reviewing separately obtained history, performing a medically appropriate examination, counseling and educating the pat ient/family/caregiver, ordering medications, tests, or procedures, communicating with other HCPs (not separately reported), and communicating results to the patient/family/caregiver. Victor Manuel Olson DO documented in this encounterMag[facility]05-[facility]24 Telephone encounter Note * Telephone Encounter - Paula Carvajal - 07/29/2023 2:44 PM EDT Patient has been identified by name and date of : Yes Patient phones for refill(s): Requested Prescriptions Pending Prescriptions Disp Refills losartan (COZAAR) 50 mg tablet 90 tablet 3 Sig: Take 1 tablet by mouth once daily. ferrous sulfate (IRON) 325 mg (65 mg iron) tablet Sig: Take 1 tablet by mouth once daily. Date of last office visit in primary care: 07/09/2023 Date of next office visit in primary care: 01/13/2024 Please advise. Thank you. Paula Carvajal. [facility]05-21-2024 Miscellaneous Notes* Telephone Encounter - Paula Carvajal - 07/29/2023 2:44 PM EDT Patient has been identified by name and date of : Yes Patient phones for refill(s): Requested Prescriptions Pending Prescriptions Disp Refills losartan (COZAAR) 50 mg tablet 90 tablet 3 Sig: Take 1 tablet by mouth once daily. ferrous sulfate (IRON) 325 mg (65 mg iron) tablet Sig: Take 1 tablet by mouth once daily. Date of last office visit in primary care: 07/09/2023 Date of next office visit in primary care: 01/13/2024 Please advise. Thank you. Paula Carvajal. documented [facility] Evaluation note* Diagnosis Stage 3 chronic kidney disease, unspecified whether stage 3a or 3b CKD (HCC)- Primary Paroxysmal atrial fibrillation (HCC) Atrial fibrillation Screening for prostate cancer Special screening for malignant neoplasm of prostate Iron deficiency anemia due to chronic blood loss Iron deficiency anemia secondary to blood loss (chronic) PARKER (obstructive sleep apnea) Obstructive sleep apnea (adult) (pediatric) documented in this encounter [facility]05-01[facility] History of Present illness Narrative* Caroline Fischer, SOCIAL WORK LECTURER.LSAT INSTRUCTOR - 07/09/2023 5:09 PM EDT CC: Patient presents with: Follow up HPI Dagoberto Baxter JR is a 83 year old male who presents today for above. He has a history of hyperlipidemia, aortic valve replacement, tricuspid valve repair, PARKER, a fib, chronic kidney disease, stage III and anemia. He recently resumed Lasix due to increase in leg swelling and SOB but only taking once a day instead of twice a day as instructed. Symptoms have mostly resolved since he restarted Lasix and feeling much better now. Denies chest pain, palpitations, PND, orthopnea, weight gain. 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 Taking all other medications as prescribed, denies side effects. BP is low today however this is his baseline. Denies d izziness, lightheadedness, feeling faint or syncope. Wearing CPAP consistently every night, denies any issues with the mask. Review of Systems Constitutional: Negative for chills, diaphoresis, fatigue, fever and unexpected weight change. Respiratory: Negative for cough and wheezing. 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 [phone] Solar Lentigo and Solar Lentigines 07/17/2011 Unspecified essential hypertension Essential hypertension PAST SURGICAL HISTORY Procedure Laterality Date COLONOSCOPY W/BIOPSY 11/29/02 [facility] - hemorrhoids COLONOSCOPY FLX DX W/COLLJ SPEC WHEN PFRMD 12/14/12 Colonoscopy COLONOSCOPY FLX DX W/COLLJ SPEC WHEN PFRMD 12/14/12 Colonoscopy HEART VALVE REPLACEMENT 06/2003 Bovine Pericardial Heart Valve HEMORRHOIDECTOMY INTERNAL RUBBER BAND LIGATIONS Hemorrhoidectomy LEFT HEART CATH,PERCUTANEOUS 03/2003 Cardiac cath, L heart OPEN TX NASOETHMOID FX W/O EXTERNAL FIXATION ALLERGIES Atenolol, Crestor [Rosuvastatin Calcium], Feathers, Fragrances, Lipitor [Atorvastatin Calcium], Lovastatin, Pollen, Pravastatin, and Red Yeast Rice MEDICATIONS tamsulosin (FLOMAX) 0.4 mg^Take 1 capsule by mouth daily at bedtime.^Disp: 90 capsule^Rfl: 3 cyanocobalamin (VITAMIN B-12) 1,000 mcg tab^Take 1 tablet by mouth once daily.^Disp: 90 tablet^Rfl:3 ferrous sulfate (IRON) 325 mg (65 mg iron) tablet^Take 325 mg by mouth once daily.^Disp: ^Rfl: metoprolol tartrate, short acting, (LOPRESSOR) 25 mg tablet^Take 1 tablet by mouth two times a day.^Disp: 180 tablet^Rfl: [address] (PROTONIX) 40 mg tablet^Take 1 tablet by mouth once daily.^Disp: 90 tablet^Rfl: 3 amiodarone (PACERONE) 200 mg tablet^Take 200 mg by mouth once daily.^Disp: ^Rfl: potassium chloride 20 mEq TbER^Take 1 tablet by mouth once daily.^Disp: 30 tablet^Rfl: 3 apixaban (ELIQUIS) 5 mg tab(s)^Take 2.5 mg by mouth two times a day.^Disp: ^Rfl: Zinc Acetate, Oral, 25 mg (zinc) cap^Take 1 capsule by mouth once daily.^Disp: ^Rfl: amLODIPine (NORVASC) 10 mg tablet^Take 1 tablet by mouth once daily.^Disp: 90 tablet^Rfl: 3 losartan (COZAAR) 50 mg tablet^Take 1 tablet by mouth once daily.^Disp: 90 tablet^Rfl: 3 ezetimibe (ZETIA) 10 mg tablet^Take 1 tablet by mouth once daily.^Disp: ^Rfl: magnesium oxide 200 mg magnesium chew^Take 1 tablet by mouth once daily.^Disp: ^Rfl: Ascorbic Acid (VITAMIN C) 1,000 mg tablet^Take 1,000 mg by mouth once daily. ^Disp: ^Rfl: BIPAP^Settings 16/ with BUR 12, suitable mask per pt preference (Airfit F30), chin strap, head gear, humidity, tubing, lifetime supplies. G47.33 PARKER^Disp: 1 Device^Rfl: 0 famotidine (PEPCID) 20 mg tablet^Take 1-2 tablets by mouth at bedtime as needed.^Disp: 180 tablet^Rfl: 3 (Patient not taking: Reported on 07/09/2023) aspirin 81 mg chewable tablet^1 tablet by ORAL/FEEDING TUBE route once daily.^Disp: 30 tablet^Rfl: 2 Cholecalciferol, Vitamin D3, (VITAMIN D) 25 mcg (1,000 unit) cap^Take 1 capsule by mouth twice daily.^Disp: 60 capsule^Rfl: 0 OTC PRODUCT^Take 1 tablet by mouth once daily.^Disp: ^Rfl: 0 FAMILY HISTORY Problem Relation Age of Onset Heart Mother valve replacement other (OHS) Mother 70 age 73 Coronary Artery Disease Father Hypertension Father other (Myocardial infarction) Father 69 Diabetes Father Heart Sister Hypertension Sister Heart Sister Stroke Sister Diabetes Sister Heart Sister Hypertension Brother Lipids Brother other (HTN) Brother Hypertension Brother Hypertension Brother Hypertension Brother Hypertension Brother Heart Brother Diabetes Brother Diabetes Maternal Grandmother other (Myocardial infarction) Maternal Grandfather 73 Social History Tobacco Use Smoking status: Never Smokeless tobacco: Never Vaping Use Vaping Use: Never used Substance Use Topics Alcohol use: No Drug use: No BP 101/57 Pulse (!) 51 Temp 36.7 C (98 F) Resp 18 Wt 86.2 kg (190 lb) SpO2 96% BMI 28.89 kg/m Physical Exam Vitals reviewed. Constitutional: Appearance: Normal appearance. Cardiovascular: Rate and Rhythm: Normal rate and regular rhythm. Heart sounds: Murmur heard. Comments: Trace bilateral lower extremity edema Pulmonary: Effort: Pulmonary effort is normal. Breath sounds: Normal breath sounds. No wheezing, rhonchi or rales. Skin: General: Skin is warm and dry. Neurological: Mental Status: He is alert. Psychiatric: Mood and Affect: Mood and affect normal. Health maintenance reviewed with patient: RSV Vaccine(1 - 1-dose 60+ series) Never done Shingrix Vaccine(2 of 3) due on 02/08/2013 DTaP,Tdap,Td Vaccine(2 - Tdap) due on 11/07/2018 Advance Directive Discussion Never done Behavioral Health Screening Never done Covid-19 Vaccine( - 2022- season) due on 07/08/2024 Influenza Vaccine(Season Ended) due on 11/09/2023 Diabetes Screening due on 01/18/2026 Pneumococcal Vaccine: 65+ Completed Colorectal Cancer Screening Discontinued DATA REVIEWED: Most recent labs ASSESSMENT/PLAN: 1. Stage 3 chronic kidney disease, unspecified whether stage 3a or 3b CKD (HCC) - ICD9: 585.3, ICD10: N18.30 (primary diagnosis) - eGFR: 62 Stable - Counseled on avoiding NSAIDs, adequate hydration - Counseled on low sodium diet - BASIC METABOLIC PANEL 2. Paroxysmal atrial fibrillation (HCC) - ICD9: 427.31, ICD10: I48.0 Rate and rhythm controlled. Follow-up with cardiology as scheduled. 3. Screening for prostate cancer - ICD9: V76.44, ICD10: Z12.5 - PSA/PROSTATE SPECIFIC ANTIGEN SCREENING 4. Iron deficiency anemia due to chronic blood loss - ICD9: 280.0, ICD10: D50.0 Stable 5. PARKER (obstructive sleep apnea) - ICD9: 327.23, ICD10: G47.33 Compliant with CPAP Prescription instructions reviewed with patient as applicable. Potential red flag symptoms discussed with the patient. Reviewed appropriate action plan to take if red flag symptoms occur. Patient agreeable to treatment plan. Caroline Fischer APRN.LSAT INSTRUCTOR documented in [facility]04[facility] History of Present illness Narrative* Patricia Sanders - 06/16/2023 1:30 PM EDT Dagoberto Baxter 1940 06/16/2023 HPI: The patient is an 82-year-old male with past medical history significant for hyperlipidemia, aortic valve replacement, tricuspid valve repair, PARKER, a fib, chronic kidney disease, stage III and anemia. Admitted [facility] for back pain in October. Found to have severe anemia. Received 2 unit RBC transfusion. EGD--Three anigiodysplasias treated with heater probe. Esophageal candidiasis. Admitted again for back pain. Discitis. Completed antibiotics 01/08. Back feels better. On oral iron since second admission. Tolerating well. Mild constipation. Taking every other day. On Eliquis and ASA (started back on ASA). Gets dyspnea and legs get weak if climbs steps. 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 Interval History: Mr. Baxter presents today with his spouse for follow up and lab review. He reports feeling well today. Denies new issues. No recent illness or infections since last visit. Denies new aches or pains. No SOB, CP, or noticeable palpitations. No INFANTE, dizziness, or changes in vision. Denies N/V/C/D. No changes in bowel or bladder habits. No rash or skin changes. Denies bleeding or bruising. Appetiteis good, energy stable. No PICA, ice cravings, neuropathy or RLS. Has not been taking PO iron, just recently resumed. 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 [phone] Solar Lentigo and Solar Lentigines 07/17/2011 Unspecified essential hypertension Essential hypertension PAST SURGICAL HISTORY Procedure Laterality Date COLONOSCOPY W/BIOPSY 11/29/02 [facility] - hemorrhoids COLONOSCOPY FLX DX W/COLLJ SPEC WHEN PFRMD 12/14/12 Colonoscopy COLONOSCOPY FLX DX W/COLLJ SPEC WHEN PFRMD 12/14/12 Colonoscopy HEART VALVE REPLACEMENT 06/2003 Bovine Pericardial Heart Valve HEMORRHOIDECTOMY INTERNAL RUBBER BAND LIGATIONS Hemorrhoidectomy LEFT HEART CATH,PERCUTANEOUS 03/2003 Cardiac cath, L heart OPEN TX NASOETHMOID FX W/O EXTERNAL FIXATION ALLERGIES Allergen Reactions Atenolol Unknown Crestor [Rosuvastat* Intolerance myalgia Feathers Fragrances Lipitor [Atorvastat* GI Upset Lovastatin Intolerance myalgia Pollen Pravastatin Intolerance myalgia Red Yeast Rice Intolerance myalgia Current Outpatient Medications Medication Sig tamsulosin (FLOMAX) 0.4 mg Take 1 capsule by mouth daily at bedtime. cyanocobalamin (VITAMIN B-12) 1,000 mcg tab Take 1 tablet by mouth once daily. ferrous sulfate (IRON) 325 mg (65 mg iron) tablet Take 325 mg by mouth once daily. metoprolol tartrate, short acting, (LOPRESSOR) 25 mg tablet Take 1 tablet by mouth two times a day. pantoprazole DR (PROTONIX) 40 mg tablet Take 1 tablet by mouth once daily. amiodarone (PACERONE) 200 mg tablet Take 200 mg by mouth once daily. potassium chloride 20 mEq TbER Take 1 tablet by mouth once daily. apixaban (ELIQUIS) 5 mg tab(s) Take 2.5 mg by mouth two times a day. Zinc Acetate, Oral, 25 mg (zinc) cap Take 1 capsule by mouth once daily. amLODIPine (NORVASC) 10 mg tablet Take 1 tablet by mouth once daily. losartan (COZAAR) 50 mg tablet Take 1 tablet by mouth once daily. ezetimibe (ZETIA) 10 mg tablet Take 1 tablet by mouth once daily. magnesium oxide 200 mg magnesium chew Take 1 tablet by mouth once daily. Cholecalciferol, Vitamin D3, (VITAMIN D) 25 mcg (1,000 unit) cap Take 1 capsule by mouth twice daily. Ascorbic Acid (VITAMIN C) 1,000 mg tablet Take 1,000 mg by mouth once daily. BIPAP Settings 16/11 with BUR 12, suitable mask per pt preference (Airfit F30), chin strap, head gear, humidity, tubing, lifetime supplies. G47.33 PARKER famotidine (PEPCID) 20 mg tablet Take 1-2 tablets by mouth at bedtime as needed. aspirin 81 mg chewable tablet 1 tablet by ORAL/FEEDING TUBE route once daily. OTC PRODUCT Take 1 tablet by mouth once daily. Current Facility-Administered Medications Medication Dose Route Frequency perflutren lipid microspheres 1.3 mL in NaCl (PF) 0.9% 10 mL injection (DEFINITY) INTRAVENOUS DIRECTED PRN sodium chloride 0.9 % (flush) 10 mL (BD POSIFLUSH) 10 mL INTRAVENOUS DIRECTED PRN Social History Tobacco Use Smoking status: Never Smokeless tobacco: Never Vaping Use Vaping Use: Never used Substance Use Topics Alcohol use: No Drug use: No Family History Problem Relation Age of Onset Heart Mother valve replacement other (OHS) Mother 70 age 73 Coronary Artery Disease Father Hypertension Father other (Myocardial infarction) Father 69 Diabetes Father Heart Sister Hypertension Sister Heart Sister Stroke Sister Diabetes Sister Heart Sister Hypertension Brother Lipids Brother other (HTN) Brother Hypertension Brother Hypertension Brother Hypertension Brother Hypertension Brother Heart Brother Diabetes Brother Diabetes Maternal Grandmother other (Myocardial infarction) Maternal Grandfather 73 ROS: Constitutional: No fever. No drenching night sweats. Normal appetite. No unexplained weight loss. All systems reviewed on 06/16/2023 with pertinent positives and negatives as outlined in the intervalhistory. \\ PHYSICAL EXAM: Vitals: Blood pressure 116/68, pulse 88, temperature 36.6 C (97.9 F), temperature source Temporal, weight 89.1 kg (196 lb 8 oz), SpO2 97%. Well-appearing and in no acute distress. LYMPHATIC: There is no palpable cervical, supraclavicular adenopathy. RESPIRATORY: Inspiratory breath sounds are of normal intensity in all fuentes. No rales, wheezes or rhonchi. CARDIOVASCULAR: Rhythm is regular with occasional ectopy. ABDOMEN: The abdomen is nondistended. No splenomegaly or hepatomegaly. No tenderness. Extremities: No swelling or edema. SKIN: No jaundice. Ulcerations LABS: Lab Results Component Value Date WBC 8.08 06/12/2023 HB 10.6 (L) 06/12/2023 MCV 89.9 06/12/2023 PLT 177 06/12/2023 Lab Results Component Value Date NA 143 01/18/2023 K 4.1 01/18/2023 CO2 26 01/18/2023 BUN 23 01/18/2023 CREAT 1.19 01/18/2023 TBILI 0.5 01/18/2023 TPROT 6.8 01/18/2023 ALB 4.1 01/18/2023 ALKPHOS 97 01/18/2023 ALT 9 (L) 01/18/2023 AST 15 01/18/2023 Ferritin Date Value Ref Range Status 06/12/2023 87.3 30.3 - 565.7 ng/mL Final 02/19/2023 218.0 30.3 - 565.7 ng/mL Final 02/04/2023 46.9 30.3 - 565.7 ng/mL Final 01/18/2023 61.7 30.3 - 565.7 ng/mL Final 07/13/2022 95.6 30.3 - 565.7 ng/mL Final Iron Date Value Ref Range Status 06/12/2023 57 41 - 186 ug/dL Final 02/19/2023 252 (H) 41 - 186 ug/dL Final 02/04/2023 28 (L) 41 - 186 ug/dL Final 01/18/2023 26 (L) 41 - 186 ug/dL Final 07/13/2022 46 41 - 186 ug/dL Final TIBC Date Value Ref Range Status 06/12/2023 286 232 - 386 ug/dL Final 02/19/2023 459 (H) 232 - 386 ug/dL Final 02/04/2023 380 232 - 386 ug/dL Final 01/18/2023 326 232 - 386 ug/dL Final 07/13/2022 294 232 - 386 ug/dL Final Transferrin Saturation Date Value Ref Range Status 06/12/2023 19.9 15.0 - 57.0 % Final 02/19/2023 54.9 15.0 - 57.0 % Final 02/04/2023 7.4 (L) 15.0 - 57.0 % Final 01/18/2023 8.0 (L) 15.0 - 57.0 % Final 07/13/2022 15.6 15.0 - 57.0 % Final ASSESSMENT/PLAN: (D64.9) Anemia, unspecified type (primary encounter diagnosis) Assessment: -Chronic mild anemia. Improved -Anemia likely due to GI blood loss and iron malabsorption (on PPI). -labs reviewed in detail with patient today Plan: -Continue oral iron for now. Tolerating well -recheck cbc, iron studies 3 months RTC in 3 months Patricia Sanders APRN.LSAT INSTRUCTOR I spent a total of 30 minutes on the date of the service which included preparing to see the patient, [id number] patient care, completing clinical documentation, obtaining and/or reviewing separately obtained history, and counseling and educating the patient/family/caregiver. Portions of this note including HPI, ROS, impression/plan may have been copied forward as to provide important historical information essential in contributing to medical decision making. Documentation has been reviewed and edited as necessary to support clinical decision making for today's visit and to reflect my own independent evaluation of this patient. documented in this [facility]04[facility] Miscellaneous Notes* Telephone Encounter - Debbie Wagner - 06/11/2023 4:49 PM EDT Orders linked to existing appointment. Debbie Wagner * Telephone Encounter - Victor Manuel Olson DO - 06/11/2023 4:41 PM EDT Thank you. Filed. Victor Manuel Olson DO * Telephone Encounter - Karen Post LPN - 06/11/2023 3:29 PM EDT Please file lab orders. Karen Post LPN * Telephone Encounter - Debbie Wagner - 06/11/2023 3:08 PM EDT Please file CBC/IRON STUDIES/RETIC orders as patient is coming in for labs on 06/12/23 at 9:00 AM. Thank you. Debbie Wagner * Telephone Encounter - Karen Post LPN - 06/11/2023 2:57 PM EDT If patient has returned from [place], he will need CBC/IRON STUDIES/RETIC then OV a few days later.He can be scheduled with Patricia or Dr. Olson. Karen Post LPN * Telephone Encounter - Jennifer Yu - 06/11/2023 2:22 PM EDT Patient called in asking if would like to order lab work for him to do. He stated that back in February he was told to have lab work done sometime in March, [place]. He stated he never had that lab work done and is now wondering if he should have it? Please advise. See phone note from 03/07/23 Jennifer Langley documented in this encounterMag[facility]12-[facility]-2023 Miscellaneous Notes* Telephone Encounter - Paty Church - 02/07/2023 1:34 PM EST Patient on 1st time treatment report-non oncology regimen (venofer) Patient holds medicare coverageand no FA available for this treatment. documented in this [facility]11[facility]29-[facility]23 Miscellaneous Notes* Telephone Encounter - Karen Post LPN - 02/05/2023 4:27 PM EST Appointment notes updated. Patient notified. Karen Post LPN * Telephone Encounter - Victor Manuel Olson DO - 02/05/2023 4:22 PM EST Add a CBC/iron studies/reticulocyte count at the time of his last iron infusion. Victor Manuel Olson DO * Telephone Encounter - Debbie Wagner - 02/05/2023 3:27 PM EST Spoke with patient and scheduled [address] Olson - patient will be leaving for [place] between and and will not be back until June 08. Do you want the patient to do labs in [place] or wait until he is back from [place]? Debbie Wagner * Telephone Encounter - Victor Manuel Olson DO - 02/05/2023 12:53 PM EST Orders filed. Please schedule CBC/iron studies then office visit with Flor about 4 to 6 weeks after completing iron. Victor Manuel Olson DO * Telephone Encounter - Karen Post LPN - 02/05/2023 10:[address] Olson- please place iron sucrose orders. PSS- please contact patient to schedule iron sucrose X 5 doses. Patient is expecting the call and was also informed he can stop taking the oral iron because he is not absorbing it. Karen Post LPN documented in this encounterMag[facility]11-17-2023 History of Present illness Narrative* Joyce High - 01/24/2023 2:11 PM EST Phoned patient to confirm current pharmacy for med refill of metoprolol? Joyce High WORKFORCE MANAGEMENT CONSULTANT * Silva Palacios PA-C - 01/23/2023 12:07 PM EST CC: Patient presents with: F/U 6 months: 6 month follow up- , c/o legs, sore and weak with exertion , also had a yeast infection in esophagus wants to know if it is gone or odes he stil lneed meds HPI Dagoberto Baxter JR is a 82 year old male who presents today for 6-month routine follow-up. 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 Montoya) - LV with him in 12/30, labs, including sed rate had normalized. HTN: Mr. Baxter indicates a history of hypertension and states that he is feeling well and denies anysymptoms referable to elevated blood pressure. Specifically denies headache, chest pain, palpitations, dyspnea, and peripheral edema. Checks BP periodically, 121/81 today. Date: BP: 01/23/2023 120/64 12/11/2022 126/60 11/25/2022 118/60 Atrial Fibrillation, hx of aortic valve replacement status post TEVAR 09/27, AVR and Tvr, aneurysm of subclavian artery,- A Fib confirmed via holter monitor in the summer. Currently on Eliquis and aspirin. Follows with Dr. Pickard's office- will be seeing him end of the month. Would like to have the watchman procedure done. Had seen Dr. Galaviz, but states they can't get him back in until after they're in [place] for the winter. Anemia - Unclear cause, Most recent Hgb 8.0, had received 2 units of blood when admitted in hospital in 10/30. Per pt's , there were 3 bleeds present during endoscopy, which he had treated appropriately (cautery) at the time. He is taking oral iron every other day. Esophageal candidiasis- discovered when he was scoped by Dr. Pimentel. Was txed w/ nystatin rinse x 1wk. No follow up scheduled with Dr. Pimentel following EGD and colonoscopy. PARKER: Wears CPAP nightly. Denies any issues with leaks, mask not fitting properly, snoring, un-refreshed sleep, or excessive daytime drowsiness. REVIEW OF SYSTEMS See HPI All other systems negative. 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 [phone] Solar Lentigo and Solar Lentigines 07/17/2011 Unspecified essential hypertension Essential hypertension PAST SURGICAL HISTORY Procedure Laterality Date COLONOSCOPY W/BIOPSY 11/29/02 [facility] - hemorrhoids COLONOSCOPY FLX DX W/COLLJ SPEC WHEN PFRMD 12/14/12 Colonoscopy COLONOSCOPY FLX DX W/COLLJ SPEC WHEN PFRMD 12/14/12 Colonoscopy HEART VALVE REPLACEMENT 06/2003 Bovine Pericardial Heart Valve HEMORRHOIDECTOMY INTERNAL RUBBER BAND LIGATIONS Hemorrhoidectomy LEFT HEART CATH,PERCUTANEOUS 03/2003 Cardiac cath, L heart OPEN TX NASOETHMOID FX W/O EXTERNAL FIXATION ALLERGIES Atenolol, Crestor [Rosuvastatin Calcium], Feathers, Fragrances, Lipitor [Atorvastatin Calcium], Lovastatin, Pollen, Pravastatin, and Red Yeast Rice MEDICATIONS amiodarone (PACERONE) 200 mg tablet^Take by mouth once daily.^Disp: ^Rfl: pantoprazole DR (PROTONIX) 40 mg tablet^Take 40 mg by mouth once daily.^Disp: ^Rfl: potassium chloride 20 mEq TbER^Take 1 tablet by mouth once daily.^Disp: 30 tablet^Rfl: 3 apixaban (ELIQUIS) 5 mg tab(s)^Take 5 mg by mouth twice daily.^Disp: ^Rfl: Zinc Acetate, Oral, 25 mg (zinc) cap^DAILY^Disp: ^Rfl: metoprolol tartrate, short acting, (LOPRESSOR) 25 mg tablet^Take 1 tablet by mouth twice daily.^Disp: 180 tablet^Rfl: 3 tamsulosin (FLOMAX) 0.4 mg^Take 1 capsule by mouth daily at bedtime.^Disp: 30 capsule^Rfl: 5 famotidine (PEPCID) 20 mg tablet^Take 1-2 tablets by mouth at bedtime as needed.^Disp: 180 tablet^Rfl: 3 amLODIPine (NORVASC) 10 mg tablet^Take 1 tablet by mouth once daily.^Disp: 90 tablet^Rfl: 3 losartan (COZAAR) 50 mg tablet^Take 1 tablet by mouth once daily.^Disp: 90 tablet^Rfl: 3 coenzyme Q10 (COENZYME Q-10) 100 mg cap capsule^Take 1 capsule by mouth once daily.^Disp: 30 capsule^Rfl: 0 cyanocobalamin (VITAMIN B-12) 1,000 mcg tab^Take 1 tablet by mouth once daily.^Disp: 90 tablet^Rfl:3 ezetimibe (ZETIA) 10 mg tablet^Take 1 tablet by mouth once daily.^Disp: ^Rfl: magnesium oxide 200 mg magnesium chew^Take by mouth.^Disp: ^Rfl: fluticasone (FLONASE) 50 mcg/actuation nasal spray^Use 2 Sprays in each nostril once daily. Rinse mouth after use.^Disp: 1 Each^Rfl: 0 (Patient taking differently: Use 2 Sprays in each nostril once daily. Rinse mouth after use.) aspirin 81 mg chewable tablet^1 tablet by ORAL/FEEDING TUBE route once daily.^Disp: 30 tablet^Rfl: 2 Cholecalciferol, Vitamin D3, (VITAMIN D) 25 mcg (1,000 unit) cap^Take 1 capsule by mouth twice daily.^Disp: 60 capsule^Rfl: 0 Ascorbic Acid (VITAMIN C) 1,000 mg tablet^Take 1,000 mg by mouth once daily. ^Disp: ^Rfl: BIPAP^Settings 16/11 with BUR 12, suitable mask per pt preference (Airfit F30), chin strap, head gear, humidity, tubing, lifetime supplies. G47.33 PARKER^Disp: 1 Device^Rfl: 0 OTC PRODUCT^garlic one tablet daily^Disp: ^Rfl: 0 furosemide (LASIX) 40 mg tablet^Take 40 mg by mouth once daily.^Disp: ^Rfl: FAMILY HISTORY Problem Relation Age of Onset Heart Mother valve replacement other (OHS) Mother 70 age 73 Coronary Artery Disease Father Hypertension Father other (Myocardial infarction) Father 69 other (HTN) Sister Lipids Brother other (HTN) Brother other (Myocardial infarction) Maternal Grandfather 73 Social History Tobacco Use Smoking status: Never Smokeless tobacco: Never Vaping Use Vaping Use: Never used Substance Use Topics Alcohol use: No Drug use: No PHYSICAL EXAM BP 120/64 (BP Site: Left Arm, BP Position: Sitting, BP Cuff Size: Large Adult) Pulse 91 Resp 12 Ht 172.7 cm (5' 8") Wt 87.5 kg (193 lb) SpO2 97% BMI 29.35 kg/m General Appearance: well appearing, in no acute distress, alert Psych: mood and affect broad and appropriate Skin: Skin color, texture, turgor normal for age Lungs: Lungs clear to auscultation. No wheezing, rhonchi, rales. Heart: RRR without murmur, gallop, or rubs. Extremities: No gross deformities, significant edema, skin discoloration, clubbing or cyanosis. Neurological: Gait normal. No focal neurological deficits. Sensation grossly intact. ASSESSMENT/PLAN: 1. Essential hypertension - ICD9: 401.9, ICD10: I10 (primary diagnosis) - Controlled - Continue current medications - Recommend home blood pressure monitoring, to bring results to next visit - Encouraged sodium restriction, DASH or Mediterranean diet - Recommend regular aerobic exercise 2. Anemia, unspecified type - ICD9: 285.9, ICD10: D64.9 Unclear cause, Most recent Hgb 8.0, had received 2 units of blood when admitted in hospital in 10/30. Possibly secondary to blood thinning medications and subsequent bleeding; GI bleeds noted during endoscopy, which were allegedly treated with cautery. Has no follow-up with Dr. Pimentel. Will refer tohematology to help determine true cause, and assist in formulating appropriate treatment plan, thatcan be shared between various specialists (cardio, GI) - CONSULT TO HEMATOLOGY - PANTOPRAZOLE 40 MG TABLET,DELAYED RELEASE 3. Discitis of lumbosacral region - ICD9: 722.93, ICD10: M46.47 Completed IV antibiotic treatment, with no residual issues at this time. We will continue to monitor for any recurrence of symptoms. 4. Atrial fibrillation, unspecified type (HCC) - ICD9: 427.31, ICD10: I48.91 Continue current management per cardiology- discuss concerns regarding blood thinning medications, and discuss more long-term alternative treatment options (ie watchman procedure, etc) - CONSULT TO HEMATOLOGY 5. On anticoagulant therapy - ICD9: V58.61, ICD10: Z79.01 On aspirin and Eliquis-see above - CONSULT TO HEMATOLOGY - PANTOPRAZOLE 40 MG TABLET,DELAYED RELEASE 6. PARKER on CPAP - ICD9: 327.23, ICD10: G47.33 PARKER: Wears CPAP nightly. Denies any issues with leaks, mask not fitting properly, snoring, un-refreshed sleep, or excessive daytime drowsiness. Follow-up after seeing cardiology and hematology consult Prescription instructions reviewed with patient as applicable. Potential red flag symptoms discussed with the patient. Reviewed appropriate action plan to take if red flag symptoms occur. Patient agreeable to treatment plan. Silva Palacios PA-C documented in this encounterMagruder Hospital11-17-2023 Miscellaneous Notes* Telephone Encounter - Silva Palacios PA-C - 01/24/2023 1:18 PM EST Could you check on what his preferred pharmacy is? There was not one listed. Silva Palacios PA-C * Telephone Encounter - Joyce High - 01/24/2023 8:30 AM EST Patient has been identified by name and date of : No Patient phones for refill(s): Requested Prescriptions Pending Prescriptions Disp Refills metoprolol tartrate, short acting, (LOPRESSOR) 25 mg tablet 180 tablet 3 Sig: Take 1 tablet by mouth two times a day. Date of last office visit in primary care: 01/23/2023 Date of next office visit in primary care: 01/23/2023 Last 2 Encounter Wt Readings: Date: Wt: 01/23/2023 87.5 kg (193 lb) 12/11/2022 87.5 kg (193 lb) Previous labs/tests for medication: Blood Pressure: BUN (mg/dL) Date Value 01/18/2023 23 02/15/2021 21 Sodium (mmol/L) Date Value 01/18/2023 143 02/15/2021 144 Last 1 Encounter BP Readings: Date: BP: 01/23/2023 120/64 Please advise. Thank you. Joyce High. documented in this encounterMagruder Hospital11-17-2023 Miscellaneous Notes* Telephone Encounter - Kalpana Carcamo - 01/24/2023 8:46 AM EST Scheduled with patient * Telephone Encounter - Victor Manuel Olson DO - 01/23/2023 4:41 PM EST Next new patient appointment time with either me or Dr. Madrid. Victor Manuel Olson DO * Telephone Encounter - Franny Begum - 01/23/2023 3:45 PM EST Patient is being referred to Hematology. Dx: Anemia Insurance: Medicare Referred by: Silva Palacios PA-C Please review and advise documented in this encounterMagruder Hospital11-16-2023 Instructions* Patient Instructions* Silva Palacios PA-C - 01/23/2023 12:43 PM EST Note for cardiology: Discuss if eliquis and aspirin are truly needed- as this is likely causing recurrent bleeds/persistent anemia. Discuss alternative treatment options such as watchman procedure/more snf fix Consult with hematology to oversee and manage anemia/further help pinpoint a cause documented in this encounterMagruder Hospital10-24-2023 Miscellaneous Notes* Telephone Encounter - Franchesca Galarza - 12/31/2022 2:44 PM EDT Received CD of medical record which would not download. Forwarded to [facility] for further eval and downloading (by Kalpana Deng. Franchesca Galarza, Admin. documented in this encounterMagruder Hospital10-04-2023 History of Present illness Narrative* Silva Palacios PA-C - 12/11/2022 2:27 PM EDT CC: Patient presents with: Follow Up: Spine infection HPI Dagoberto Baxter JR is a 82 year old male who presents today for hospital follow-up. Facility: [facility] f/u Date of visit: 11/27/2022 to 11/30/2022 Reason for visit: Discitis as noted on MRI as ordered outpatient- called by Dr. Montoya the next day and told to go to ED as sepsis had recurred Hospital course: Recent hospitalization in October presenting with back pain, and discovered to havesubsequent strep bacteremia, etiology undetermined at the time of hospitalization. Patient was admitted and underwent MRI of the lumbar spine which showed evidence of discitis at L4-L5. Infectious disease and spine surgeon were consulted. Patient was given IV Rocephin and vancomycin, echocardiogram was obtained due to history of bioprosthetic aortic valve replacement, which reported no vegetation on any the valves, stenosis or insufficiency, stable appearing bioprosthetic aortic valve apparatus. Cardiac 2D echo revealed EF 55% PICC line was ordered by infectious disease, advised 6 weeks of IV ceftriaxone. Spinal surgeon did not feel surigcal intervention was necessary. 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 In regards to anemia, hemoglobin dropped to 7.9 during hospitalization, so IV iron infusion orderedand administered. He is currently on oral iron every other day. 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 [phone] Solar Lentigo and Solar Lentigines 07/17/2011 Unspecified essential hypertension Essential hypertension PAST SURGICAL HISTORY Procedure Laterality Date COLONOSCOPY W/BIOPSY 11/29/02 [facility] - hemorrhoids COLONOSCOPY FLX DX W/COLLJ SPEC WHEN PFRMD 12/14/12 Colonoscopy COLONOSCOPY FLX DX W/COLLJ SPEC WHEN PFRMD 12/14/12 Colonoscopy HEART VALVE REPLACEMENT 06/2003 Bovine Pericardial Heart Valve HEMORRHOIDECTOMY INTERNAL RUBBER BAND LIGATIONS Hemorrhoidectomy LEFT HEART CATH,PERCUTANEOUS 03/2003 Cardiac cath, L heart OPEN TX NASOETHMOID FX W/O EXTERNAL FIXATION ALLERGIES Atenolol, Crestor [Rosuvastatin Calcium], Feathers, Fragrances, Lipitor [Atorvastatin Calcium], Lovastatin, Pollen, Pravastatin, and Red Yeast Rice MEDICATIONS amiodarone (PACERONE) 200 mg tablet^Take by mouth once daily.^Disp: ^Rfl: pantoprazole DR (PROTONIX) 40 mg tablet^Take 40 mg by mouth once daily.^Disp: ^Rfl: potassium chloride 20 mEq TbER^Take 1 tablet by mouth once daily.^Disp: 30 tablet^Rfl: 3 apixaban (ELIQUIS) 5 mg tab(s)^Take 5 mg by mouth twice daily.^Disp: ^Rfl: furosemide (LASIX) 40 mg tablet^Take 40 mg by mouth once daily.^Disp: ^Rfl: Zinc Acetate, Oral, 25 mg (zinc) cap^DAILY^Disp: ^Rfl: metoprolol tartrate, short acting, (LOPRESSOR) 25 mg tablet^Take 1 tablet by mouth twice daily.^Disp: 180 tablet^Rfl: 3 tamsulosin (FLOMAX) 0.4 mg^Take 1 capsule by mouth daily at bedtime.^Disp: 30 capsule^Rfl: 5 famotidine (PEPCID) 20 mg tablet^Take 1-2 tablets by mouth at bedtime as needed.^Disp: 180 tablet^Rfl: 3 amLODIPine (NORVASC) 10 mg tablet^Take 1 tablet by mouth once daily.^Disp: 90 tablet^Rfl: 3 losartan (COZAAR) 50 mg tablet^Take 1 tablet by mouth once daily.^Disp: 90 tablet^Rfl: 3 coenzyme Q10 (COENZYME Q-10) 100 mg cap capsule^Take 1 capsule by mouth once daily.^Disp: 30 capsule^Rfl: 0 cyanocobalamin (VITAMIN B-12) 1,000 mcg tab^Take 1 tablet by mouth once daily.^Disp: 90 tablet^Rfl:3 ezetimibe (ZETIA) 10 mg tablet^Take 1 tablet by mouth once daily.^Disp: ^Rfl: magnesium oxide 200 mg magnesium chew^Take by mouth.^Disp: ^Rfl: fluticasone (FLONASE) 50 mcg/actuation nasal spray^Use 2 Sprays in each nostril once daily. Rinse mouth after use.^Disp: 1 Each^Rfl: 0 (Patient taking differently: Use 2 Sprays in each nostril once daily. Rinse mouth after use.) aspirin 81 mg chewable tablet^1 tablet by ORAL/FEEDING TUBE route once daily.^Disp: 30 tablet^Rfl: 2 Cholecalciferol, Vitamin D3, (VITAMIN D) 25 mcg (1,000 unit) cap^Take 1 capsule by mouth twice daily.^Disp: 60 capsule^Rfl: 0 Ascorbic Acid (VITAMIN C) 1,000 mg tablet^Take 1,000 mg by mouth once daily. ^Disp: ^Rfl: BIPAP^Settings 16/11 with BUR 12, suitable mask per pt preference (Airfit F30), chin strap, head gear, humidity, tubing, lifetime supplies. G47.33 PARKER^Disp: 1 Device^Rfl: 0 OTC PRODUCT^garlic one tablet daily^Disp: ^Rfl: 0 FAMILY HISTORY Problem Relation Age of Onset Heart Mother valve replacement other (OHS) Mother 70 age 73 Coronary Artery Disease Father Hypertension Father other (Myocardial infarction) Father 69 other (HTN) Sister Lipids Brother other (HTN) Brother other (Myocardial infarction) Maternal Grandfather 73 Social History Tobacco Use Smoking status: Never Smokeless tobacco: Never Vaping Use Vaping Use: Never used Substance Use Topics Alcohol use: No Drug use: No PHYSICAL EXAM BP 126/60 (BP Site: Right Arm, BP Position: Sitting, BP Cuff Size: Large Adult) Pulse 99 Temp 36.6 C (97.9 F) Resp 12 Ht 172.7 cm (5' 8") Wt 87.5 kg (193 lb) SpO2 97% BMI 29.35 kg/m General Appearance: well appearing, in no acute distress, alert Pysch: mood and affect broad and appropriate Skin: Skin color, texture, turgor normal for age; Lungs: Lungs clear to auscultation. No wheezing, rhonchi, rales. Heart: RRR without murmur, gallop, or rubs. No ectopy BACK: Normal curvature of spine. No significant midline tenderness, but mild tenderness palpation right lower back slightly right of midline. Straight leg test negative. Deep tendon patellar tendon reflexes 2+/4 Normal lower extremity strength, sensation in tact bilaterally. Extremities: No gross deformities, significant edema, skin discoloration, clubbing or cyanosis. Neurological: Gait normal. No focal neurological deficits. Sensation grossly intact. ASSESSMENT/PLAN: 1. Discitis of lumbosacral region - ICD9: 722.93, ICD10: M46.47 (primary diagnosis) Received IV antibiotics (Rocephin and vancomycin) during hospitalization, and is currently about a week and a half into 6 weeks of IV ceftriaxone via PICC line. Was advised to follow-up with ID 2 weeks following-has follow-up with Dr. Montoya (ID) next week 2. Streptococcal bacteremia - ICD9: 790.7, 041.00, ICD10: R78.81, B95.5 Secondary to lumbar discitis NIYAH obtained during most recent hospitalization which was negative for any vegetation on the valves 3. Anemia, unspecified type - ICD9: 285.9, ICD10: D64.9 Status post iron infusion during hospitalization. Currently on oral iron every other day. We will recheck updated CBC as well as iron panel - CBC - FERRITIN BLD - IRON + TIBC Follow-up to discuss routine issues and lab results in 6 weeks Prescription instructions reviewed with patient as applicable. Potential red flag symptoms discussed with the patient. Reviewed appropriate action plan to take if red flag symptoms occur. Patient agreeable to treatment plan. Silva Palacios PA-C documented in this encounterMagruder Hospital09-23-2023 Discharge summary Author Carlitos Koch [facility] November 30, 2022 1:29pm Note Date/Time November 30, 2022 11:18am [facility] Medical Records Department [address] [place] [id number] Discharge Summary 11/30/22 1118 MR#: [id number] Acct: [id number] Name: DAGOBERTO BAXTER Jr. Rep #:[id number] : 1940 82 From: Carlitos Law PCP: Dr. Rebecca iDnh MD Status:ADM I N Location: [place] [address] Providers Date of Admission: 11/27/22 Date of Discharge: 11/30/22 Primary Care Physician: Dr. Rebecca Dinh MD Consultations 11/27/22 12:07 Consult: Infectious Disease Routine Consulting Provider: Morteza Montoya Reason for Consult: bacteremia EMERGENT Consult: No Notified: Yes Date Notified: 11/27/22 Time Notified: 11:13 Method of Notification: Verbal Consult: Orthopedics Routine Consulting Provider: Eric Collins Reason for Consult: discitis EMERGENT Consult: No Notified: Yes Date Notified: 11/27/22 Time Notified: 11:14 Method of Notification: Verbal Reason For Visit: BACTEREMIA, LUMBAR DISCITIS Diagnosis Discharge Diagnosis (1) Discitis of lumbar region: Status: Acute Code(s): M46.46 - Discitis, unspecified, lumbar region Plan Patient was admitted with mild soreness of the back about 6 to 8 weeks which gotprogressively worse but could not stand up or walk therefore admitted in PCU. 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 1. Osteomyelitis/discitis of the lumbar spine-patient was admitted, he underwent an MRI of the lumbar spine today which showed evidence of discitis at L4-5. ID and spine surgeon were consulted. Patient will receive IV Rocephin and vancomycin, echocardiogram will be obtained. 11/28: ID follow-up appreciated. Recommended repeat NIYAH as patient had strep bacteremia in October 2022. History of EVD placement. Spine surgeon Dr. Bui does not recommend surgery. Pain control activity and follow-up in the clinic. 11/29: NIYAH reported no vegetation on the mitral valve, no mitral stenosis. Mild mitral insufficiency. Tricuspid valve no vegetation identified. No aortic valvular vegetation no aortic stenosis or insufficiency. Stable appearing bioprosthetic aortic valve apparatus. Cardiac 2D echo yesterday also showed EF 55%. 11/30:His back pain is better. Follow-up with Dr. Collins in 2 to 3 weeks. #2 bacteremia from Streptococcus secondary to discitis of the lumbar spine-: Preliminary blood culture and bacterial detection so was strep not staph. Continue Rocephin and vancomycin. During previous admission in October 2022 patient had alphahemolytic strep bacteremia.Patient had NIYAH on 11/04/2022 and this was communicated to Dr. Montoya but he wants repeat as the duration of antibiotic treatment depends on NIYAH. NIYAH at that time shows LA severely enlarged right atrium moderately enlarged, no vegetation on mitral valve. No mitral stenosis. Mild MR. No tricuspid valve vegetation. No aortic valve vegetation. PICC line is ordered by ID. 6 weeks of IV ceftriaxone. ID follow 2 weeks. 11/30:Patient got PICC line. Patient has a prescription of 6 weeks of IV ceftriaxone from ID. Advised follow-up ID in 2 wee #3 chronic paroxysmal atrial fibrillation-patient is not on any anticoagulation due to recent GI bleeding, he is also off aspirin at this time. Patient remainson amiodarone and metoprolol. 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 Patient had EGD and colonoscopy in October 2022. 11/30: Acute anemia with history of chronic anemia: Patient hemoglobin has been low between 8 to 9 g recently in October 2022. Today, it dropped to 7.9 g therefore IV iron infusion ordered and given. Patient discharged on ferrous sulfate and ascorbic acid. EGD 11/03/2022: Impression: - Esophageal plaques were found, suspicious for candidiasis. Biopsied. 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 Treated with a heater probe. - Normal second portion of the duodenum. Recommendation: - Resume previous diet. - Use Protonix (pantoprazole) 40 mg PO daily. - Nystatin suspension 100,000 units PO QID for 1 week. - Continue present medications. Colonoscopy on 11/14/2022. Impression: - Diverticulosis in the recto-sigmoid colon, in the sigmoid colon and in the descending colon. Fluid aspiration performed. - The examination was otherwise normal on direct and retroflexion views. Recommendation: - Discharge patient to home. - Resume previous diet. - Continue present medications. Repeat colonoscopy is not recommended. #6 essential hypertension-patient will remain on his outpatient medications #7 BPH-patient is on Flomax Discharge medication reconciliation done. Discharge follow-up instructions completed. Discharge process discussed with the patient and all questions wereanswered to patient's satisfaction. Total time spent, exact 35 minutes on discharge meds reconciliation, examination, coordination of care with nurses and ancillary staff, review of imaging and blood test and discussion with the patient on follow-up instructions. Clinical Impression(s) from Imaging Studies Chest X-Ray 11/27/22 09:58 IMPRESSION: Blunting of the costophrenic angles with mild basilar atelectasis at the left lung base. Electronically Signed: Lokesh Smith MD at 11:05 EDT , Lumbar Spine MRI 11/27/22 11:19 IMPRESSION: L4-5 disc edema, concerning for discitis. Modic type I endplate changes at L4-5 and correspond to symptoms of back pain. Medications at Discharge Home Medications aspirin 81 mg tablet,delayed release 81 mg PO QDAY SEE PCP 03/11/17 famotidine 20 mg tablet 40 mg PO QHS SEE PCP 06/21/19 ascorbic acid (vitamin C) 1,000 mg tablet 1 gm PO DAILY SUPPLEMENT 06/26/20 cholecalciferol (vitamin D3) 25 mcg (1,000 unit) tablet 25 mcg PO BID SUPPLEMEN 10/13/20 acetaminophen 325 mg tablet 650 mg PO Q6H PRN pain 10/20/20 losartan 50 mg tablet 50 mg PO DAILY #90 tabs 11/28/20 amlodipine 10 mg tablet 10 mg PO DAILY #90 tabs 01/17/22 cyanocobalamin (vitamin B-12) 1,000 mcg tablet 1,000 mcg PO DAILY SEE PCP 01/17/22 magnesium 200 mg tablet 200 mg PO DAILY SUPPLEMENT 01/17/22 tamsulosin 0.4 mg capsule 0.4 mg PO QHS SEE PCP 01/17/22 zinc acetate 25 mg (zinc) capsule 25 mg PO DAILY SEE PCP 01/17/22 ezetimibe 10 mg tablet (Zetia) 10 mg PO DAILY #90 tabs 01/30/22 coenzyme Q10 100 mg capsule 100 mg PO DAILY SUPPLEMENT 07/22/22 potassium chloride 20 mEq tablet,extended release 20 meq PO DAILY #90 tabs 10/16/22 apixaban 5 mg tablet (Eliquis) 5 mg PO BID #60 tabs 10/28/22 pantoprazole 40 mg tablet,delayed release (Protonix) 40 mg PO DAILY #30 tabs 11/05/22 amiodarone 200 mg tablet 200 mg PO BID #60 tabs 11/17/22 metoprolol tartrate 50 mg tablet 50 mg PO .qam #180 tabs 11/17/22 ceftriaxone 2 gram intravenous solution 2 g IV Q24H 39 days 11/29/22 ascorbic acid (vitamin C) 500 mg tablet 500 mg PO BID #60 tabs 11/30/22 ferrous sulfate 325 mg (65 mg iron) tablet 325 mg PO QODAY #30 tabs 11/30/22 Physical Exam Narrative Patient did not had any symptoms. Physical exam General: Alert, Oriented x3, Cooperative HEENT: Atraumatic, PERRLA, EOMI, Normocephalic Oral: Oral mucosa moist. No Gingival or Mucosal Lesions/ Ulcerations Neck: Supple, No JVD, Negative Carotid Bruits Lungs: Air entry diminished in bilateral lung bases. No crepitation/rhonchi Cardiovascular: Regular rate, Regular Rhythm, Normal S1, Normal S2, systolic murmur over right second ICS, LLSB and cardiac apex. No radiation to axilla. Open heart surgery scar Abdomen: Bowel Sounds Present, Soft, Non Tender, Non-Distended : No renal angle tenderness. No suprapubic tenderness. Extremities: No edema, Capillary Refill Less than 3 Seconds Skin: No rashes, No breakdown. No Janeway lesion or osler's node Musculoskeletal: No Tenderness to Palpation of Joints or Extremities. ROM intact. Spine: Mild tenderness over lumbar spine mainly L4-L5. Mild paravertebral muscle tenderness on right side. Neurological: Cranial nerves II-XII grossly intact, DTR 2+/4. No acute focal neurological deficit. Psych/Mental Status: Normal Affect, Appropriate. Weight / BMI Weight Weight: 186 lb 1.616 oz Body Mass Index (BMI) 28.3 ABG / Lab / Microbiology Data 11/30/22 08:10 11/30/22 08:10 Laboratory: Laboratory Results - last 24 hr 11/30/22 08:10: WBC 9.5, RBC 2.93 L, Hgb 7.9 L, Hct 26.3 L, MCV 89.8, MCH 27.0, MCHC 30.0 L, RDW Std Deviation 57.0 H, RDW Coeff of Duyen 17.7 H, Plt Count 232, MPV 8.6, Immature Gran % (Auto) 0.400, Neut % (Auto) 86.6 H, Lymph % (Auto) 5.6 L, [place] % (Auto) 4.9, Eos % (Auto) 2.2, Baso % (Auto) 0.3, Absolute Neuts (auto)8.2 H, Absolute Lymphs (auto) 0.53 L, Nucleated RBC % 0, Differential Comment SCANNED, Sodium 139, Potassium 3.4 L, Chloride 108 H, Carbon Dioxide 25.0, AnionGap 6, BUN 13, Creatinine 0.99, Estim Creat Clear Calc 57.58, Est GFR (MDRD) Af Amer 93, Est GFR (MDRD) Non-Af 77, BUN/Creatinine Ratio 13.1, Glucose 102, Calcium 8.5 Microbiology: Microbiology 11/27/22 10:00 Urine, Clean Catch Urine Culture - Final GPC Poss Enterococcus sp 11/27/22 09:50 Blood Culture (Wb) - Venous Blood Culture - Preliminary Alpha Hemolytic Streptococcus 11/27/22 09:34 Blood Culture (Wb) - Venous Blood Culture - Preliminary Alpha Hemolytic Streptococcus 11/27/22 09:41 Nasal Secretion SARS-CoV-2 & FLU Antigen (Rapid) - Final Radiography Diagnostic Testing: Radiology Impression Transesophageal Echocardiogram 11/28/22 13:27 Interpretation Summary The estimated ejection fraction is 55 %. The left atrium is severely enlarged. The right atrium is moderately enlarged. Mild (1+) mitral valve insufficiency. No vegetations visualized Ordering Physician: Carlitos Koch Referring Physician: Rebecca Dinh Performed By: Pam Medrano, ISABEL Chest X-Ray 11/29/22 20:55 IMPRESSION: Mild left lower lobe atelectasis or infiltrate status post PICC line placement which terminates in the distal superior vena cava Electronically Signed: Eric Cheema MD at 21:48 EDT Reading Location ID and State: [facility] / [place] Tel , Service support , D/C Instructions Discharge Diet: No restrictions Weight Bearing Status: Weight bearing as tolerated Call your doctor if you observe: Fever of 101 or Higher, Coldness, Increased Pain, Numbness or Tingling, Change in Color, Inability to urinate, Inability to have a bowel movement, Shortness of breath, Dizziness, Fainting spells, Swellingin the ankles, Chest pain, Prolonged hiccupping, Increased palpitations (irregular heartbeat) and Calf discomfort When: IN 2 WEEKS Meaningful Use Info Meaningful Use Diagnoses (Choose all that apply): None applicable Discharge Plan Admission Admit Date/Time: 11/27/22 10:59 Primary Reason for Your Visit: Lumbar discitis/osteomyelitis. Attending Provider: Carlitos Koch Primary Care Provider: Rebecca Dinh Consulting Providers: Morteza Montoya; Eric Collins; Harshal Mtz Discharge Orders/Prescriptions Prescriptions: New ceftriaxone 2 gram recon soln 2 g IV Q24H 39 Days Rx Instructions: dx: lumber discitis stop date 01/08/23 weekly bmp, cbc, and esr. fax to [phone] ferrous sulfate 325 mg (65 mg iron) tablet 325 mg PO QODAY Qty: 30 2RF ascorbic acid (vitamin C) 500 mg tablet 500 mg PO BID Qty: 60 2RF Continued famotidine 20 mg tablet 40 mg PO QHS ascorbic acid (vitamin C) 1,000 mg tablet 1 gm PO DAILY acetaminophen 325 mg tablet 650 mg PO Q6H PRN (Reason: pain) tamsulosin 0.4 mg capsule 0.4 mg PO QHS cyanocobalamin (vitamin B-12) 1,000 mcg tablet 1,000 mcg PO DAILY magnesium 200 mg tablet 200 mg PO DAILY zinc acetate 25 mg (zinc) capsule 25 mg PO DAILY amlodipine 10 mg tablet 10 mg PO DAILY Qty: 90 3RF Hold Instructions: Order Changed coenzyme Q10 100 mg capsule 100 mg PO DAILY Patient Comments: TAKE 1 CAPSULE BY MOUTH ONCE DAILY amiodarone 200 mg Tablet 200 mg PO BID Qty: 60 0RF Rx Instructions: 1 twice daily for 7 days starting 9/10, then 1 daily thereafter metoprolol tartrate 50 mg tablet 50 mg PO .qam Qty: 180 0RF Rx Instructions: 50mg ev AM, 25mg ev night pantoprazole [Protonix] 40 mg tablet,delayed release (DR/EC) 40 mg PO DAILY Qty: 30 0RF cholecalciferol (vitamin D3) 25 mcg (1,000 unit) tablet 25 mcg PO BID losartan 50 mg tablet 50 mg PO DAILY Qty: 90 3RF ezetimibe [Zetia] 10 mg tablet 10 mg PO DAILY Qty: 90 3RF potassium chloride 20 mEq tablet extended release 20 meq PO DAILY Qty: 90 3RF Eliquis 5 mg tablet 5 mg PO BID Qty: 60 11RF Hold Instructions: GI BLEED Held aspirin 81 mg tablet,delayed release (DR/EC) 81 mg PO QDAY Hold Instructions: Hold baby aspirin and patient has severe anemia and already on Eliquis. Referrals / Follow Up: [facility], Infusion Clinic [Other] (Patient to come to main entrance on Friday at 10am as instructed. Will be seen in infusion clinic on Friday at 1030) Rebecca Dinh MD [Primary Care Provider] - Eric Collins DO [Med Staff - Active Staff] - Within 2 Weeks (for lumbar back/discitis/osteo) Morteza Montoya MD [Med Staff - Active Staff] - Within 1 Week (For history of lumbar discitis, PICC line on IV ceftriaxone.) Disposition Disposition (needs filled in before D/C Order can be placed): Home, Self Care Charges/Coding Visit Charges Inpatient E&M: 33106 Disch Hosp >30min 11/30/22 1329 <Electronically signed by Carlitos Koch MD> Cosigner Signature (if applicable): CC: Dr. Rebecca Dinh MD; Dr. Carlitos Koch MD~ Signed [facility] Work Phone: 1(261) 632-224909-23-2023 Discharge summary Author Carlitos Koch [facility] November 30, 2022 11:18am Note Date/Time November 30, 2022 9:51am [facility] Medical Records Department [address] [place] [address] Instructions for Home/Discharge Instructions 11/30/22 0949 MR#: [id number] Acct: [id number] Name: DAGOBERTO BAXTER Jr. Rep #:[id number] : 1940 82 From: Carlitos Law PCP: Dr. Rebecca Dinh MD Status:ADM I N Discharge Instructions Diet Discharge Diet: No restrictions Activity Discharge Activity: Return to Normal Activity Weight Bearing Status: Weight bearing as tolerated Dressing / Incision Call your doctor if you observe: Fever of 101 or Higher, Coldness, Increased Pain, Numbness or Tingling, Change in Color, Inability to urinate, Inability to have a bowel movement, Shortness of breath, Dizziness, Fainting spells, Swellingin the ankles, Chest pain, Prolonged hiccupping, Increased palpitations (irregular heartbeat) and Calf discomfort Follow Up Care When: IN 2 WEEKS Test Results: Test results from this visit will be discussed in further detail at your follow- up appointment, if applicable. Discharge Plan Admission Admit Date/Time: 11/27/22 10:59 Primary Reason for Your Visit: Lumbar discitis/osteomyelitis. Attending Provider: Carlitos Koch Primary Care Provider: Rebecca Dinh Consulting Providers: Morteza Montoya; Eric Collins; Harshal Mtz Discharge Orders/Prescriptions Prescriptions: New ceftriaxone 2 gram recon soln 2 g IV Q24H 39 Days Rx Instructions: dx: lumber discitis stop date 01/08/23 weekly bmp, cbc, and esr. fax to [phone] ferrous sulfate 325 mg (65 mg iron) tablet 325 mg PO QODAY Qty: 30 2RF ascorbic acid (vitamin C) 500 mg tablet 500 mg PO BID Qty: 60 2RF Continued famotidine 20 mg tablet 40 mg PO QHS ascorbic acid (vitamin C) 1,000 mg tablet 1 gm PO DAILY acetaminophen 325 mg tablet 650 mg PO Q6H PRN (Reason: pain) tamsulosin 0.4 mg capsule 0.4 mg PO QHS cyanocobalamin (vitamin B-12) 1,000 mcg tablet 1,000 mcg PO DAILY magnesium 200 mg tablet 200 mg PO DAILY zinc acetate 25 mg (zinc) capsule 25 mg PO DAILY amlodipine 10 mg tablet 10 mg PO DAILY Qty: 90 3RF Hold Instructions: Order Changed coenzyme Q10 100 mg capsule 100 mg PO DAILY Patient Comments: TAKE 1 CAPSULE BY MOUTH ONCE DAILY amiodarone 200 mg Tablet 200 mg PO BID Qty: 60 0RF Rx Instructions: 1 twice daily for 7 days starting 11/17, then 1 daily thereafter metoprolol tartrate 50 mg tablet 50 mg PO .qam Qty: 180 0RF Rx Instructions: 50mg ev AM, 25mg ev night pantoprazole [Protonix] 40 mg tablet,delayed release (DR/EC) 40 mg PO DAILY Qty: 30 0RF cholecalciferol (vitamin D3) 25 mcg (1,000 unit) tablet 25 mcg PO BID losartan 50 mg tablet 50 mg PO DAILY Qty: 90 3RF ezetimibe [Zetia] 10 mg tablet 10 mg PO DAILY Qty: 90 3RF potassium chloride 20 mEq tablet extended release 20 meq PO DAILY Qty: 90 3RF Eliquis 5 mg tablet 5 mg PO BID Qty: 60 11RF Hold Instructions: GI BLEED Held aspirin 81 mg tablet,delayed release (DR/EC) 81 mg PO QDAY Hold Instructions: Hold baby aspirin and patient has severe anemia and already on Eliquis. Referrals / Follow Up: [facility], Infusion Clinic [Other] (Patient to come to main entrance on Friday at 10am as instructed. Will be seen in infusion clinic on Friday at 1030) Rebecca Dinh MD [Primary Care Provider] - Eric Collins DO [Med Staff - Active Staff] - Within 2 Weeks (for lumbar back/discitis/osteo) Morteza Montoya MD [Med Staff - Active Staff] - Within 1 Week (For history of lumbar discitis, PICC line on IV ceftriaxone.) Disposition Disposition (needs filled in before D/C Order can be placed): Home, Self Care 11/30/22 1118<Electronically signed by Carlitos Koch MD>Carlitos Koch MD CC: Dr. Rebecca Dinh MD; Dr. Eric Collins DO; Dr. Harshal Mtz DO; Dr. Morteza Montoya MD ~ Signed [facility] Work Phone: 1(728) 655-782309-22-2023 Progress note Author Carlitos Koch [facility] November 29, 2022 4:49pm Note Date/Time November 29, 2022 4:49pm [facility] Medical Records Department [address] [place] [address] Progress Note - Hospitalist 11/29/22 1644 MR#: [id number] Acct: [id number] Name: DAGOBERTO BAXTER Jr. Rep #:[id number] : 1940 82 From: Carlitos Law PCP: Dr. Rebecca Dinh MD Status:ADM I N Location: [place] [address] Reason for Visit Reason for Visit: Diagnoses Unspecified streptococcus as the cause of diseases classified elsewhere (11/27/22) Osteomyelitis of vertebra, lumbar region (11/27/22) Discitis, unspecified, lumbar region (11/27/22) Bacteremia (11/27/22) Presence of other vascular implants and grafts (11/27/22) Other specified postprocedural states (11/27/22) Objective Data Objective Data Vital Signs: Vital Signs Temp Pulse Resp BP Pulse Ox O2 Del Method 98.0 F 76 18 146/76 H 95 Room Air 11/29/22 15:42 11/29/22 15:42 11/29/22 15:42 11/29/22 15:42 11/29/22 15:42 11/29/22 15:42 Oxygen Delivery Method Room Air Weight: 186 lb 1.616 oz Body Mass Index (BMI) 28.3 Intake & Output: Intake and Output for Last 24 Hours 11/27/22 11/28/22 11/29/22 23:59 23:59 23:59 Intake Total 1218.33 / 1218.33 1640 / 1640 980 / 980 Output Total 200 / 200 600 / 600 560 / 560 Balance 1018.33 / 1018.33 1040 / 1040 420 / 420 Lab / Micro Data 11/29/22 05:50 11/29/22 05:50 Labs: Laboratory Results - last 24 hr 11/28/22 22:00: Vancomycin Trough 10.9 11/29/22 05:50: WBC 11.6 H, RBC 3.03 L, Hgb 8.4 L, Hct 27.4 L, MCV 90.4, MCH 27.7, MCHC 30.7 L, RDW Std Deviation 57.4 H, RDW Coeff of Duyen 17.7 H, Plt Count 247, MPV 8.5, Immature Gran % (Auto) 0.400, Neut % (Auto) 86.4 H, Lymph % (Auto)6.2 L, [place] % (Auto) 4.3, Eos % (Auto) 2.3, Baso % (Auto) 0.4, Absolute Neuts (auto) 10.0 H, Absolute Lymphs (auto) 0.72 L, Nucleated RBC % 0, Sodium 138, Potassium 3.4 L, Chloride 106, Carbon Dioxide 29.0, Anion Gap 3 L, BUN 13, Creatinine 1.06, Estim Creat Clear Calc 53.77, Est GFR (MDRD) Af Amer 86, Est GFR (MDRD) Non-Af 71, BUN/Creatinine Ratio 12.3, Glucose 101, Calcium 8.6 Micro: Microbiology 11/27/22 10:00 Urine, Clean Catch Urine Culture - Final GPC Poss Enterococcus sp 11/27/22 09:50 Blood Culture (Wb) - Venous Blood Culture - Preliminary Alpha Hemolytic Streptococcus 11/27/22 09:34 Blood Culture (Wb) - Venous Blood Culture - Preliminary Alpha Hemolytic Streptococcus 11/27/22 09:41 Nasal Secretion SARS-CoV-2 & FLU Antigen (Rapid) - Final Radiography Diagnostic Testing: Radiology Impression Transesophageal Echocardiogram 11/28/22 13:27 Interpretation Summary The estimated ejection fraction is 55 %. The left atrium is severely enlarged. The right atrium is moderately enlarged. Mild (1+) mitral valve insufficiency. No vegetations visualized Ordering Physician: Carlitos Kcoh Referring Physician: Rebecca Dinh Performed By: Pam Medrano RDCS Physical Exam Narrative Patient did not had any symptoms. Had NIYAH today Patient is stated he had mild soreness of the back about 6 to 8 weeks which got progressively worse but could not stand up or walk for admitted. 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 His back pain is better. Physical exam General: Alert, Oriented x3, Cooperative HEENT: Atraumatic, PERRLA, EOMI, Normocephalic Oral: Oral mucosa moist. No Gingival or Mucosal Lesions/ Ulcerations Neck: Supple, No JVD, Negative Carotid Bruits Lungs: Air entry diminished in bilateral lung bases. No crepitation/rhonchi Cardiovascular: Regular rate, Regular Rhythm, Normal S1, Normal S2, systolic murmur over right second ICS, LLSB and cardiac apex. No radiation to axilla. Open heart surgery scar Abdomen: Bowel Sounds Present, Soft, Non Tender, Non-Distended : No renal angle tenderness. No suprapubic tenderness. Extremities: No edema, Capillary Refill Less than 3 Seconds Skin: No rashes, No breakdown. No Janeway lesion or osler's node Musculoskeletal: No Tenderness to Palpation of Joints or Extremities. ROM intact. Spine: Mild tenderness over lumbar spine mainly L4-L5. Mild paravertebral muscle tenderness on right side. Neurological: Cranial nerves II-XII grossly intact, DTR 2+/4. No acute focal neurological deficit. Psych/Mental Status: Normal Affect, Appropriate. Assessment & Plan Assessment/Plan (1) Discitis of lumbar region: PLAN: Plan 1. Osteomyelitis/discitis of the lumbar spine-patient was admitted, he underwent an MRI of the lumbar spine today which showed evidence of discitis at L4-5. ID and spine surgeon were consulted. Patient will receive IV Rocephin and vancomycin, echocardiogram will be obtained. 11/28: ID follow-up appreciated. Recommended repeat NIYAH as patient had strep bacteremia in October 2022. History of EVD placement. Spine surgeon Dr. Bui does not recommend surgery. Pain control activity and follow-up in the clinic. 11/29: NIYAH reported no vegetation on the mitral valve, no mitral stenosis. Mild mitral insufficiency. Tricuspid valve no vegetation identified. No aortic valvular vegetation no aortic stenosis or insufficiency. Stable appearing bioprosthetic aortic valve apparatus. Cardiac 2D echo yesterday also showed EF 55% #2 bacteremia from Streptococcus secondary to discitis of the lumbar spine-: Preliminary blood culture and bacterial detection so was strep not staph. Continue Rocephin and vancomycin. During previous admission in October 2022 patient had alphahemolytic strep bacteremia.Patient had NIYAH on 11/04/2022 and this was communicated to Dr. Montoya but he wants repeat as the duration of antibiotic treatment depends on NIYAH. NIYAH at that time shows LA severely enlargedright atrium moderately enlarged, no vegetation on mitral valve. No mitral stenosis. Mild MR. No tricuspid valve vegetation. No aortic valve vegetation. PICC line is ordered by ID. 6 weeks of IV ceftriaxone. ID follow 2 weeks. #3 chronic paroxysmal atrial fibrillation-patient is not on any anticoagulation due to recent GI bleeding, he is also off aspirin at this time. Patient remainson amiodarone and metoprolol. 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 Patient had EGD and colonoscopy in October 2022. EGD 11/03/2022: Impression: - Esophageal plaques were found, suspicious for candidiasis. Biopsied. 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 Treated with a heater probe. - Normal second portion of the duodenum. Recommendation: - Resume previous diet. - Use Protonix (pantoprazole) 40 mg PO daily. - Nystatin suspension 100,000 units PO QID for 1 week. - Continue present medications. Colonoscopy on 11/14/2022. Impression: - Diverticulosis in the recto-sigmoid colon, in the sigmoid colon and in the descending colon. Fluid aspiration performed. - The examination was otherwise normal on direct and retroflexion views. Recommendation: - Discharge patient to home. - Resume previous diet. - Continue present medications. Repeat colonoscopy is not recommended. #6 essential hypertension-patient will remain on his outpatient medications #7 BPH-patient is on Flomax Clinical Impression(s) from Imaging Studies Chest X-Ray 11/27/22 09:58 IMPRESSION: Blunting of the costophrenic angles with mild basilar atelectasis at the left lung base. Electronically Signed: Lokesh Smith MD at 11:05 EDT , Lumbar Spine MRI 11/27/22 11:19 IMPRESSION: L4-5 disc edema, concerning for discitis. Modic type I endplate changes at L4-5 and correspond to symptoms of back pain. Charges/Coding Visit Charges Inpatient E&M: 38750 Subs Hosp L2 11/29/22 1640 <Electronically signed by Carlitos Koch MD> Cosigner Signature (if applicable): CC: ~ Signed [facility] Work Phone: [phone]) 932-471109-22-2023 Progress note Author Morteza Lindsay [facility] November 29, 2022 2:57pm Note Date/Time November 29, 2022 2:57pm [facility] Medical Records Department [address] [place] [id number] Progress Note - Infect Disease 11/29/22 1456 MR#: [id number] Acct: [id number] Name: DAGOBERTO BAXTER Jr. Rep #:[id number] : 1940 82 From: Morteza saavedra MD PCP: Dr. Rebecca Dinh MD Status:ADM I N Location: [place] [address] Physical Exam Narrative Feeling fine, back pain stable, no fever Const alert and no apparent distress General Appearance: cooperative Resp normal air movement and clear to auscultation bilaterally Cardio regular rate and regular rhythm GI soft to palpation, non-tender and non-distended Skin no rashes or lesions noted ID ID: Route of nutrition/ use of supplements: [] Nutritional Intake: [] IV Site: [] [place]ll[place] Catheter: [] Assessment & Plan Assessment/Plan (1) History of tricuspid valve repair: (2) Hx of ascending aorta replacement: (3) Streptococcal bacteremia: PLAN: Discitis seen on MRI L spine with contrast. Reviewed [facility] records, MRI in that system. Seen by spine surgery. Recent colonoscopy with removal tubular adenoma as possible source of this strep infection. Admitted in October with strep bacteremia as well. No veg seen on NIYAH, does have h/o valve replacement. Will order picc and 6 weeks iv ceftriaxone, ID followup in 2 weeks. Will follow, d/w primary team and case management (4) Osteomyelitis of lumbar spine: 11/29/22 1457 <Electronically signed by Morteza Montoya MD> Cosigner Signature (if applicable): CC: ~ Signed [facility] Work Phone: 1(835) 335-498109-22-2023 Consult note Author Basilio Novoa [facility] November 29, 2022 12:00am Note Date/Time November 29, 2022 12:00am [facility] Medical Records Department [address] [place] [address] Pharmacokinetic/Renal -Consult 11/28/223 MR#: [id number] Acct: [id number] Name: DAGOBERTO BAXTER Jr. Rep #:[id number] : 1940 82 From: Basilio Barry od PCP: Dr. Rebecca Dinh MD Status:ADM I N Y Location: [place] [address] Consult Antibiotic Management Pharmacy has been consulted to manage selected antiobiotic: Vancomycin Type of Intervention Type of Consult: Follow-up Labs Labs: Sodium 140 mmol/L (136-145) 11/28/22 05:33 Potassium 3.6 mmol/L (3.5-5.1) 11/28/22 05:33 Chloride 109 mmol/L (98-107) H 11/28/22 05:33 Carbon Dioxide 26.0 mmol/L (21.0-32.0) 11/28/22 05:33 Anion Gap 5 (5-15) 11/28/22 05:33 BUN 16 mg/dL (7-18) 11/28/22 05:33 Creatinine 1.12 mg/dL (0.70-1.30) 11/28/22 05:33 Est GFR (MDRD) Af Amer 81 mL/min (>60) 11/28/22 05:33 Est GFR (MDRD) Non-Af 67 mL/min (>60) 11/28/22 05:33 BUN/Creatinine Ratio 14.3 RATIO (10-20) 11/28/22 05:33 Glucose 97 mg/dL (74-106) 11/28/22 05:33 Vancomycin Trough 10.9 ug/mL (5.0-15.0) 11/28/22 22:00 Microbiology Microbiology: Microbiology 11/27/22 09:50 Blood Culture (Wb) - Venous Blood Culture - Preliminary Alpha Hemolytic Streptococcus 11/27/22 09:34 Blood Culture (Wb) - Venous Blood Culture - Preliminary Alpha Hemolytic Streptococcus 11/27/22 10:00 Urine, Clean Catch Urine Culture - Preliminary GPC Poss Enterococcus sp 11/27/22 09:41 Nasal Secretion SARS-CoV-2 & FLU Antigen (Rapid) - Final Goal Trough Goal Trough: 15-20 mcg/mL Pharmacy Plan for Drug Dosing Pharmacy Plan for Drug Dosing: Pharmacy Service will continue to monitor and adjust dosing as required. TROUGH 10.9 @ 11.5 HRS. INCREASE TO 750MG Q12H AND FOLLOW UP TROUGH PRIOR TO 4TH DOSE Follow-Up Labs Follow-Up Labs: Trough: Vancomycin Date/Time Labs Ordered Labs to be done on [date and time ordered]: 11/30 @ 1100 11/29/22 0000 <Electronically signed by Basilio cr> Date _ Basilio Albert Signature (if applicable): Date CC: ~ Signed [facility] Work Phone: 1(611) 929-505409-21-2023 Progress note Author Carlitos Koch [facility] November 28, 2022 3:08pm Note Date/Time November 28, 2022 8:03am [facility] Medical Records Department [address] [place] [address] Progress Note - Hospitalist 11/28/22801 MR#: [id number] Acct: [id number] Name: DAGOBERTO BAXTER JrLa Rep #:[id number] : 1940 82 From: Carlitos Law PCP: Dr. Rebecca Dinh MD Status:ADM I N [id number] Reason for Visit Reason for Visit: Diagnoses Unspecified streptococcus as the cause of diseases classified elsewhere (11/27/22) Osteomyelitis of vertebra, lumbar region (11/27/22) Discitis, unspecified, lumbar region (11/27/22) Bacteremia (11/27/22) Presence of other vascular implants and grafts (11/27/22) Other specified postprocedural states (11/27/22) Objective Data Objective Data Vital Signs: Vital Signs Temp Pulse Resp BP Pulse Ox O2 Del Method 97.8 F 66 18 133/79 H 93 Room Air 11/28/22 02:11 11/28/22 02:11 11/28/22 02:11 11/28/22 02:11 11/28/22 02:11 11/28/22 02:11 Oxygen Delivery Method Room Air Weight: 186 lb 1.6 oz Body Mass Index (BMI) 28.3 Intake & Output: Intake and Output for Last 24 Hours 11/26/22 11/27/22 11/28/22 23:59 23:59 23:59 Intake Total 1218.33 / 1218.33 400 / 400 Output Total 200 / 200 600 / 600 Balance 1018.33 / 1018.33 -200 / -200 Lab / Micro Data 11/28/22 05:33 11/28/22 05:33 Labs: Laboratory Results - last 24 hr 11/27/22 09:34: WBC 10.3, RBC 3.05 L, Hgb 8.4 L, Hct 27.9 L, MCV 91.5, MCH 27.5,MCHC 30.1 L, RDW Std Deviation 58.8 H, RDW Coeff of Duyen 17.9 H, Plt Count 233, MPV 8.3, Immature Gran % (Auto) 0.500, Neut % (Auto) 89.3 H, Lymph % (Auto) 4.1 L, [place] % (Auto) 4.1, Eos % (Auto) 1.6, Baso % (Auto) 0.4, Absolute Neuts (auto)9.2 H, Absolute Lymphs (auto) 0.42 L, Nucleated RBC % 0, Differential Comment SCANNED, Sodium 141, Potassium 3.7, Chloride 108 H, Carbon Dioxide 29.0, Anion Gap 4 L, BUN 18, Creatinine 1.33 H, Estim Creat Clear Calc 42.86, Est GFR (MDRD)Af Amer 66, Est GFR (MDRD) Non-Af 55 L, BUN/Creatinine Ratio 13.5, Glucose 96, Calcium 9.0, Total Bilirubin 0.70, AST 11 L, ALT 18, Alkaline Phosphatase 99, Total Protein 8.1, Albumin 3.3, Globulin 4.8 H, Albumin/Globulin Ratio 0.7 L, Lipase 27 11/27/22 10:00: Urine Color Yellow, Urine Clarity Clear, Urine pH 6.5, Ur Specific [place] 1.015, Urine Protein 30 H, Urine Glucose (UA) Normal, Urine Ketones Negative, Urine Occult Blood 10 H, Urine Nitrite Negative, Urine Bilirubin Negative, Urine Urobilinogen 1 H, Ur Leukocyte Esterase 25 H, Urine RBC 0 SEEN, Urine WBC 0-5 SEEN, Ur Squamous Epith Cells 0 SEEN, Urine Bacteria 0SEEN, Urine Mucus 0 SEEN 11/27/22 10:06: Lactic Acid 1.3 11/28/22 05:33: WBC 10.6, RBC 2.83 L, Hgb 7.5 L, Hct 25.6 L, MCV 90.5, MCH 26.5 L, MCHC 29.3 L, RDW Std Deviation 58.4 H, RDW Coeff of Duyen 17.8 H, Plt Count 230, MPV 8.8, Immature Gran % (Auto) 0.500, Neut % (Auto) 86.9 H, Lymph % (Auto)6.0 L, [place] % (Auto) 4.2, Eos % (Auto) 2.1, Baso % (Auto) 0.3, Absolute Neuts (auto) 9.2 H, Absolute Lymphs (auto) 0.64 L, Nucleated RBC % 0, Sodium 140, Potassium 3.6, Chloride 109 H, Carbon Dioxide 26.0, Anion Gap 5, BUN 16, Creatinine 1.12, Estim Creat Clear Calc 50.89, Est GFR (MDRD) Af Amer 81, Est GFR (MDRD) Non-Af 67, BUN/Creatinine Ratio 14.3, Glucose 97, Calcium 8.3 L Micro: Microbiology 11/27/22 09:34 Blood Culture (Wb) - Venous Blood Culture - Preliminary 11/27/22 09:50 Blood Culture (Wb) - Venous Blood Culture - Preliminary 11/27/22 09:41 Nasal Secretion SARS-CoV-2 & FLU Antigen (Rapid) - Final Radiography Diagnostic Testing: Radiology Impression Chest X-Ray 11/27/22 09:58 IMPRESSION: Blunting of the costophrenic angles with mild basilar atelectasis at the left lung base. Lumbar Spine MRI 11/27/22 11:19 IMPRESSION: L4-5 disc edema, concerning for discitis. Modic type I endplate changes at L4-5 and correspond to symptoms of back pain. Electronically Signed: Sheridan Lewis MD at 16:47 EDT Reading Location ID and State: [id number] / Tel , Service support , Physical Exam Narrative Patient is stated he had mild soreness of the back about 6 to 8 weeks which got progressively worse but could not stand up or walk for admitted. 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 His back pain is better. Physical exam General: Alert, Oriented x3, Cooperative HEENT: Atraumatic, PERRLA, EOMI, Normocephalic Oral: Oral mucosa moist. No Gingival or Mucosal Lesions/ Ulcerations Neck: Supple, No JVD, Negative Carotid Bruits Lungs: Air entry diminished in bilateral lung bases. No crepitation/rhonchi Cardiovascular: Regular rate, Regular Rhythm, Normal S1, Normal S2, systolic murmur over right second ICS, LLSB and cardiac apex. No radiation to axilla. Open heart surgery scar Abdomen: Bowel Sounds Present, Soft, Non Tender, Non-Distended : No renal angle tenderness. No suprapubic tenderness. Extremities: No edema, Capillary Refill Less than 3 Seconds Skin: No rashes, No breakdown Musculoskeletal: No Tenderness to Palpation of Joints or Extremities. ROM intact. Spine: Mild tenderness over lumbar spine mainly L4-L5. Mild paravertebral muscle tenderness on right side. Neurological: Cranial nerves II-XII grossly intact, DTR 2+/4. No acute focal neurological deficit. Psych/Mental Status: Normal Affect, Appropriate. Assessment & Plan Assessment/Plan (1) Discitis of lumbar region: PLAN: Plan 1. Discitis of the lumbar spine-patient was admitted, he underwent an MRI of the lumbar spine today which showed evidence of discitis at L4-5. ID and spine surgeon were consulted. Patient will receive IV Rocephin and vancomycin, echocardiogram will be obtained. 11/28: ID follow-up appreciated. Recommended repeat NIYAH as patient had strep bacteremia in October 2022. History of EVD placement. Spine surgeon Dr. Bui does not recommend surgery. Pain control activity and follow-up in the clinic. #2 bacteremia from Streptococcus secondary to discitis of the lumbar spine-: Preliminary blood culture and bacterial detection so was strep not staph. Continue Rocephin and vancomycin. During previous admission in October 2022 patient had alphahemolytic strep bacteremia.Patient had NIYAH on 11/04/2022 and this was communicated to Dr. Montoya but he wants repeat as the duration of antibiotic treatment depends on NIYAH. NIYAH at that time shows LA severely enlarged right atrium moderately enlarged, no vegetation on mitral valve. No mitral stenosis. Mild MR. No tricuspid valve vegetation. No aortic valve vegetation. #3 chronic paroxysmal atrial fibrillation-patient is not on any anticoagulation due to recent GI bleeding, he is also off aspirin at this time. Patient remainson amiodarone and metoprolol. 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 Patient had EGD and colonoscopy in October 2022. EGD 11/03/2022: Impression: - Esophageal plaques were found, suspicious for candidiasis. Biopsied. 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 Treated with a heater probe. - Normal second portion of the duodenum. Recommendation: - Resume previous diet. - Use Protonix (pantoprazole) 40 mg PO daily. - Nystatin suspension 100,000 units PO QID for 1 week. - Continue present medications. Colonoscopy on 11/14/2022. Impression: - Diverticulosis in the recto-sigmoid colon, in the sigmoid colon and in the descending colon. Fluid aspiration performed. - The examination was otherwise normal on direct and retroflexion views. Recommendation: - Discharge patient to home. - Resume previous diet. - Continue present medications. Repeat colonoscopy is not recommended. #6 essential hypertension-patient will remain on his outpatient medications #7 BPH-patient is on Flomax Clinical Impression(s) from Imaging Studies Chest X-Ray 11/27/22 09:58 IMPRESSION: Blunting of the costophrenic angles with mild basilar atelectasis at the left lung base. Electronically Signed: Lokesh Smith MD at 11:05 EDT , Lumbar Spine MRI 11/27/22 11:19 IMPRESSION: L4-5 disc edema, concerning for discitis. Modic type I endplate changes at L4-5 and correspond to symptoms of back pain. Charges/Coding Visit Charges Inpatient E&M: 44943 Subs Hosp L2 11/28/22 1508 <Electronically signed by Carlitos Koch MD> Cosigner Signature (if applicable): CC: ~ Signed [facility] Work Phone: 1(770) 603-739209-21-2023 Progress note Author Morteza Mataninger [facility] November 28, 2022 10:53am Note Date/Time November 28, 2022 10:53am [facility] Medical Records Department [address] [place] [address] Progress Note - Infect Disease 11/28/22 1052 MR#: [id number] Acct: [id number] Name: DAGOBERTO BAXTER Jr. Rep #:[id number] : 1940 82 From: Morteza saavedra MD PCP: Dr. Rebecca Dinh MD Status:ADM I N Location: [place] [address] Physical Exam Narrative No fever, pain in back a little better Const alert and no apparent distress General Appearance: cooperative Resp normal air movement and clear to auscultation bilaterally Cardio regular rate and regular rhythm GI soft to palpation, non-tender and non-distended Skin no rashes or lesions noted ID ID: Route of nutrition/ use of supplements: [] Nutritional Intake: [] IV Site: [] [place] Catheter: [] Assessment & Plan Assessment/Plan (1) History of tricuspid valve repair: (2) Hx of ascending aorta replacement: (3) Streptococcal bacteremia: PLAN: Discitis seen on MRI L spine with contrast. Reviewed [facility] records, MRI in that system. Seen by spine surgery. Cover with vanc/ceftriaxone q12h for now. Recent colonoscopy with removal tubular adenoma as possible source of this strep infection. Admitted in October with strep bacteremia as well. Recommend NIYAH, does have h/o valve replacement. Will follow, d/w primary team (4) Osteomyelitis of lumbar spine: 11/28/22 1053 <Electronically signed by Morteza Montoya MD> Cosigner Signature (if applicable): CC: ~ Signed [facility] Work Phone: 1(635) 187-320209-20-2023 History and physical note Author Harshal Mtz [facility] November 27, 2022 7:22pm Note Date/Time November 27, 2022 7:22pm [facility] Medical Records Department [address] [place] [address] H&P Exam - Hospitalist 11/27/221911 MR#: [id number] Acct: [id number] Name: DAGOBERTO BAXTER Jr. Rep #:[id number] : 1940 82 From: Harshal Mtz DO PCP: Dr. Rebecca Dinh MD Status:ADM I N Location: [place] [address] HPI - General General Date of Admission: 11/27/22 Date of Service: 11/27/22 Chief Complaint: Bacteremia HPI Narrative DAGOBERTO BAXTER, is a 82 M who presents to the emergency room at [facility] after being instructed to go there by his infectious disease physician, patient had imaging studies done recently which showed discitis in his lumbar spine on an outpatient MRI obtained by the [facility], he was referred to Dr. Montoya who virginie blood cultures on the patient which resulted in being positive for strep which is not strep pneumoniae. Patient was in the hospital recently for a GI bleed and at that time his blood cultures were positive for strep and he was treated, the etiology of the strep was not ascertained at that time. Patient has since undergone a colonoscopy as an outpatientapproximately 2 weeks ago, this did not show any evidence of cancer or acute bleeding. Patient states that he has had repeat GI bleeding however when he went back on his Eliquis and he is now off his Eliquis and aspirin. Work-up in the emergency room today included a CBC which showed a normal white blood cell count, patient's hemoglobin was 8.4, chemistry profile was remarkablefor creatinine of 1.33, urinalysis was unremarkable. Patient was admitted to [facility] for bacteremia secondary to lumbar discitis, he was seen in consultation by infectious diseases, an MRI of the patient's lumbar spine was ordered, orthopedic surgery was consulted to see the patient, he will receive IV antibiotics and get an echocardiogram performed tomorrow. [facility] Medical History Acute hypotension Acute on chronic anemia Acute right-sided low back pain Aortic aneurysm Asthma Atherosclerotic heart disease of [place] coronary artery without angina pectoris Back pain Bacteremia BPH (benign prostatic hyperplasia) Cancer Ciera esophagitis Cardiology follow-up encounter CPAP (continuous positive airway pressure) dependence Easy bruising Elevated serum creatinine Fatigue History of atrial fibrillation History of echocardiogram (~12/2015) History of edema History of GI bleed History of IBS History of left common carotid artery stent placement (~09/27/20) History of steroid therapy Hoarseness Hypertension Non-rheumatic mitral regurgitation Non-rheumatic tricuspid valve insufficiency Non-smoker Nonrheumatic mitral (valve) prolapse PARKER (obstructive sleep apnea) Postoperative atrial fibrillation Pure hypercholesterolemia Thoracic aortic aneurysm without rupture Weakness Wears glasses Home Medications aspirin 81 mg tablet,delayed release 81 mg PO QDAY SEE PCP 03/11/17 [History Last Taken Unknown] famotidine 20 mg tablet 40 mg PO QHS SEE PCP 06/21/19 [History Last Taken Unknown] ascorbic acid (vitamin C) 1,000 mg tablet 1 gm PO DAILY SUPPLEMENT 06/26/20 [History Last Taken Unknown] cholecalciferol (vitamin D3) 25 mcg (1,000 unit) tablet 25 mcg PO BID SUPPLEMEN 10/13/20 [History Last Taken Unknown] acetaminophen 325 mg tablet 650 mg PO Q6H PRN pain 10/20/20 [History Last Taken Unknown] losartan 50 mg tablet 50 mg PO DAILY #90 tabs 11/28/20 [Rx Last Taken 11/14/22] amlodipine 10 mg tablet 10 mg PO DAILY #90 tabs 01/17/22 [Rx Last Taken 11/13/22] cyanocobalamin (vitamin B-12) 1,000 mcg tablet 1,000 mcg PO DAILY SEE PCP 01/17/22 [History Last Taken Unknown] magnesium 200 mg tablet 200 mg PO DAILY SUPPLEMENT 01/17/22 [History Last Taken Unknown] tamsulosin 0.4 mg capsule 0.4 mg PO QHS SEE PCP 01/17/22 [History Last Taken Unknown] zinc acetate 25 mg (zinc) capsule 25 mg PO DAILY SEE PCP 01/17/22 [History Last Taken Unknown] ezetimibe 10 mg tablet (Zetia) 10 mg PO DAILY #90 tabs 01/30/22 [Rx Last Taken Unknown] coenzyme Q10 100 mg capsule 100 mg PO DAILY SUPPLEMENT 07/22/22 [History Last Taken Unknown] potassium chloride 20 mEq tablet,extended release 20 meq PO DAILY #90 tabs 10/16/22 [Rx Last Taken Unknown] apixaban 5 mg tablet (Eliquis) 5 mg PO BID #60 tabs 10/28/22 [Rx Last Taken Unknown] pantoprazole 40 mg tablet,delayed release (Protonix) 40 mg PO DAILY #30 tabs 11/05/22 [Rx Last Taken Unknown] amiodarone 200 mg tablet 200 mg PO BID #60 tabs 11/17/22 [Rx Last Taken 11/14/22] metoprolol tartrate 50 mg tablet 50 mg PO .qam #180 tabs 11/17/22 [Rx Last Taken 11/14/22] Allergy/AdvReac Type Severity Reaction Status Date / Time [id number] Reductase AdvReac Severe intolerence Verified 11/27/22 09:13 Inhibitor [Gsxnkon-Drl-Uxl Reductase Inhibitor] hydrochlorothiazide AdvReac Intermediate unknown Verified 11/27/22 09:13 red yeast rice AdvReac Intermediate unknown Verified 11/27/22 09:13 Family History Mother Hypertension Father CAD (coronary artery disease) Hypertension Grandmother CAD (coronary artery disease) Surgical History H/O hemorrhoidectomy History of aortic valve replacement with bioprosthetic valve (~09/27/20) History of cardiac catheterization (~03/2003) History of tricuspid valve repair (~09/27/20) Hx of ascending aorta replacement (~09/27/20) Social History Smoking Status: Never smoker alcohol intake: never substance use type: does not use caffeine: Yes Type: coffee Number of servings: 5 ROS Constitutional Constitutional: Denies anorexia, change in weight, chills, fatigue, fever(s), malaise, night sweats or weakness Eyes Eyes: Denies blurry vision, change in vision, discharge from eye(s) or eye pain Cardiovascular Cardiovascular: Denies chest pain, claudication, edema or palpitations Respiratory/Chest Respiratory/Chest: Denies cough, hemoptysis, shortness of breath at rest or shortness of breath with exertion Gastrointestinal Gastrointestinal: Denies abdominal pain, constipation, diarrhea, hematemesis, hematochezia, melena, nausea or vomiting Genitourinary Genitourinary: Denies dysuria, hematuria, urinary frequency, urinary hesitancy, urinary incontinence or urinary urgency Musculoskeletal Musculoskeletal: Reports back pain; Denies joint pain, joint stiffness, joint swelling, myalgias or neck pain Neurologic Neurologic: Denies abnormal gait, abnormal speech, dizziness, focal weakness, headache(s), loss of vision, numbness, other visual disturbances, paresthesias, syncope or tingling Psychiatric Psychiatric: Denies anxiety, cognitive impairment, depression, irritability, mood swings or suicidal ideation Endocrine Endocrinology: Denies change in body appearance, cold intolerance, excessive sweating, heat intolerance, polydipsia or polyuria Hematologic/Lymphatic Hematologic/Lymphatic: Denies none, anemia, easy bleeding, easy bruising or lymphadenopathy Allergic/Immunologic Allergic/Immunologic: Denies rhinitis, urticaria, eczemia or asthma Vital Signs Vital Signs Vital Signs: 11/27/22 09:13 11/27/22 10:13 11/27/22 12:48 Temperature 97.6 F L 98.1 F Temperature Source Temporal Oral Pulse Rate 105 H 74 Respiratory Rate 14 16 Respiratory Effort Normal Non-Labored Respiratory Depth Respiratory Pattern Normal Blood Pressure 95/59 L 147/88 H Blood Pressure Mean 71 107 Blood Pressure Source Monitor Blood Pressure Position Semi-Fowlers Blood Pressure Location Right Arm Pulse Ox 98 95 Oxygen Delivery Method Room Air Room Air 11/27/22 12:12 11/27/22 16:09 Temperature 98.2 F Temperature Source Oral Pulse Rate 73 Respiratory Rate 16 Respiratory Effort Normal Non-Labored Respiratory Depth Normal Respiratory Pattern Normal Blood Pressure 112/74 Blood Pressure Mean 86 Blood Pressure Source Monitor Blood Pressure Position Semi-Fowlers Blood Pressure Location Right Arm Pulse Ox 95 Oxygen Delivery Method Room Air Room Air Weight Weight: 84.414 kg Body Mass Index (BMI) 28.3 Physical Exam Const alert, oriented x3, no apparent distress and average body habitus Constitutional Narrative: Patient appears his stated age General Appearance: cooperative, well kempt and well developed Orientation / Consciousness: awake, oriented to person, oriented to place and oriented to time HEENT normocephalic, head/scalp atraumatic, hearing grossly normal bilaterally and moist oral mucous membranes Eyes PERRL, EOMs intact bilaterally and conjunctivae normal Neck supple, no JVD, thyroid normal and no carotid bruits General: trachea midline Resp normal respiratory effort, no retractions, no use of accessory muscles and clearto auscultation bilaterally Auscultation: Negative for rales, rhonchi or wheezes Cardio S1 normal heart sound, S2 normal heart sound, no murmurs, no rub and no gallops Cardio Narrative: Heart rate and rhythm is irregular GI normal to inspection, nondistended, normoactive bowel sounds, soft to palpation,non-tender and non-distended Extremity no clubbing, cyanosis or edema Skin no rashes or lesions noted General Skin Exam: no breakdown Neuro oriented x3, CN's II-XII intact bilaterally, moves all extremities, no focal motor deficits and no sensory deficits noted Sensorium / Orientation: awake, alert, oriented to person, oriented to place andoriented to time Speech: speech normal Psych affect normal Results Lab / Micro Data 11/27/22 09:34 11/27/22 09:34 Labs: Laboratory Results - last 24 hr 11/27/22 09:34: WBC 10.3, RBC 3.05 L, Hgb 8.4 L, Hct 27.9 L, MCV 91.5, MCH 27.5,MCHC 30.1 L, RDW Std Deviation 58.8 H, RDW Coeff of Duyen 17.9 H, Plt Count 233, MPV 8.3, Immature Gran % (Auto) 0.500, Neut % (Auto) 89.3 H, Lymph % (Auto) 4.1 L, [place] % (Auto) 4.1, Eos % (Auto) 1.6, Baso % (Auto) 0.4, Absolute Neuts (auto)9.2 H, Absolute Lymphs (auto) 0.42 L, Nucleated RBC % 0, Differential Comment SCANNED, Sodium 141, Potassium 3.7, Chloride 108 H, Carbon Dioxide 29.0, Anion Gap 4 L, BUN 18, Creatinine 1.33 H, Estim Creat Clear Calc 42.86, Est GFR (MDRD)Af Amer 66, Est GFR (MDRD) Non-Af 55 L, BUN/Creatinine Ratio 13.5, Glucose 96, Calcium 9.0, Total Bilirubin 0.70, AST 11 L, ALT 18, Alkaline Phosphatase 99, Total Protein 8.1, Albumin 3.3, Globulin 4.8 H, Albumin/Globulin Ratio 0.7 L, Lipase 27 11/27/22 10:00: Urine Color Yellow, Urine Clarity Clear, Urine pH 6.5, Ur Specific [place] 1.015, Urine Protein 30 H, Urine Glucose (UA) Normal, Urine Ketones Negative, Urine Occult Blood 10 H, Urine Nitrite Negative, Urine Bilirubin Negative, Urine Urobilinogen 1 H, Ur Leukocyte Esterase 25 H, Urine RBC 0 SEEN, Urine WBC 0-5 SEEN, Ur Squamous Epith Cells 0 SEEN, Urine Bacteria 0SEEN, Urine Mucus 0 SEEN 11/27/22 10:06: Lactic Acid 1.3 Micro: Microbiology 11/27/22 09:41 Nasal Secretion SARS-CoV-2 & FLU Antigen (Rapid) - Final Radiology Impression Chest X-Ray 11/27/22 09:58 IMPRESSION: Blunting of the costophrenic angles with mild basilar atelectasis at the left lung base. Electronically Signed: Lokesh Smith MD at 11:05 EDT , Lumbar Spine MRI 11/27/22 11:19 IMPRESSION: L4-5 disc edema, concerning for discitis. Modic type I endplate changes at L4-5 and correspond to symptoms of back pain. Electronically Signed: Sheridan Lewis MD at 16:47 EDT Reading Location ID and State: [id number] / Tel , Service support , Assessment & Plan Assessment/Plan (1) Discitis of lumbar region: PLAN: Plan 1. Discitis of the lumbar spine-patient was admitted, he underwent an MRI of the lumbar spine today which showed evidence of discitis at L4-5, he was seen inconsultation by orthopedic surgery and infectious diseases, no surgery is planned for the patient at this time according to orthopedic surgery. Patient will receive IV Rocephin and vancomycin, echocardiogram will be obtained. #2 bacteremia from Streptococcus secondary to discitis of the lumbar spine-againpatient is on Rocephin and vancomycin #3 chronic paroxysmal atrial fibrillation-patient is not on any anticoagulation due to recent GI bleeding, he is also off aspirin at this time. 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- patient will have an echocardiogram performed tomorrow to rule out endocarditis #5 chronic anemia secondary to recent GI blood loss-patient does not require transfusion at this time, CBC will be monitored #6 essential hypertension-patient will remain on his outpatient medications #7 BPH-patient is on Flomax Total clinical time spent by myself addressing patient's medical issues, reviewing all of his data, and collaborating with patient's care team: 75-minute Charges/Coding Visit Charges Inpatient E&M: 86991 Init Hosp L3 11/27/221921 <Electronically signed by Harshal Mtz DO> Cosigner Signature (if applicable): CC: Dr. Rebecca Dinh MD; Dr. Harshal Mtz DO~ Signed [facility] Work Phone: [phone]) 539-904609-20-2023 Consult note Author Eric Collins [facility] November 27, 2022 6:00pm Note Date/Time November 27, 2022 5:58pm [facility] Medical Records Department [address] [place] [address] Consultation - Orthopedics 11/27/22 1755 MR#: [id number] Acct: [id number] Name: DAGOBERTO BAXTER Jr. Rep #:[id number] : 1940 82 From: Eric Juarez PCP: Dr. Rebecca Dinh MD Status:ADM I N Location: [place] [id number] HPI Consult Data Date of Consult: 11/27/22 HPI Narrative HPI Narrative: The patient is an 82-year-old male accompanied by his who contributed to the medical history. He is accompanied by his who contributed to the medical history. He is sitting up in bed resting comfortably. He states that he began to develop back pain about 2 months ago after a bout of fever and chills while they were in [place]. His pain continued to worsen. He presented to the ER today for evaluation. Image studies were performed which shows discitis. Infectious disease has been consulted and is managing antibiotics. The patient describes some pain in the lumbar region with activity but feels it is manageable. It is not limiting his mobilization or ambulation. He denies any fever chills nausea or vomiting. He denies any acute numbness tingling weakness or changes in bowel or bladder function. He denies any history of backsurgeries or back injections [facility] Medical History Acute hypotension Acute on chronic anemia Acute right-sided low back pain Aortic aneurysm Asthma Atherosclerotic heart disease of [place] coronary artery without angina pectoris Back pain Bacteremia BPH (benign prostatic hyperplasia) Cancer Ciera esophagitis Cardiology follow-up encounter CPAP (continuous positive airway pressure) dependence Easy bruising Elevated serum creatinine Fatigue History of atrial fibrillation History of echocardiogram (~12/2015) History of edema History of GI bleed History of IBS History of left common carotid artery stent placement (~09/27/20) History of steroid therapy Hoarseness Hypertension Non-rheumatic mitral regurgitation Non-rheumatic tricuspid valve insufficiency Non-smoker Nonrheumatic mitral (valve) prolapse PARKER (obstructive sleep apnea) Postoperative atrial fibrillation Pure hypercholesterolemia Thoracic aortic aneurysm without rupture Weakness Wears glasses Home Medications aspirin 81 mg tablet,delayed release 81 mg PO QDAY SEE PCP 03/11/17 [History Last Taken Unknown] famotidine 20 mg tablet 40 mg PO QHS SEE PCP 06/21/19 [History Last Taken Unknown] ascorbic acid (vitamin C) 1,000 mg tablet 1 gm PO DAILY SUPPLEMENT 06/26/20 [History Last Taken Unknown] cholecalciferol (vitamin D3) 25 mcg (1,000 unit) tablet 25 mcg PO BID SUPPLEMEN 10/13/20 [History Last Taken Unknown] acetaminophen 325 mg tablet 650 mg PO Q6H PRN pain 10/20/20 [History Last Taken Unknown] losartan 50 mg tablet 50 mg PO DAILY #90 tabs 11/28/20 [Rx Last Taken 11/14/22] amlodipine 10 mg tablet 10 mg PO DAILY #90 tabs 01/17/22 [Rx Last Taken 11/13/22] cyanocobalamin (vitamin B-12) 1,000 mcg tablet 1,000 mcg PO DAILY SEE PCP 01/17/22 [History Last Taken Unknown] magnesium 200 mg tablet 200 mg PO DAILY SUPPLEMENT 01/17/22 [History Last Taken Unknown] tamsulosin 0.4 mg capsule 0.4 mg PO QHS SEE PCP 01/17/22 [History Last Taken Unknown] zinc acetate 25 mg (zinc) capsule 25 mg PO DAILY SEE PCP 01/17/22 [History Last Taken Unknown] ezetimibe 10 mg tablet (Zetia) 10 mg PO DAILY #90 tabs 01/30/22 [Rx Last Taken Unknown] coenzyme Q10 100 mg capsule 100 mg PO DAILY SUPPLEMENT 07/22/22 [History Last Taken Unknown] potassium chloride 20 mEq tablet,extended release 20 meq PO DAILY #90 tabs 10/16/22 [Rx Last Taken Unknown] apixaban 5 mg tablet (Eliquis) 5 mg PO BID #60 tabs 10/28/22 [Rx Last Taken Unknown] pantoprazole 40 mg tablet,delayed release (Protonix) 40 mg PO DAILY #30 tabs 11/05/22 [Rx Last Taken Unknown] amiodarone 200 mg tablet 200 mg PO BID #60 tabs 11/17/22 [Rx Last Taken 11/14/22] metoprolol tartrate 50 mg tablet 50 mg PO .qam #180 tabs 11/17/22 [Rx Last Taken 11/14/22] Allergy/AdvReac Type Severity Reaction Status Date / Time [id number]-TBE-QcB Reductase AdvReac Severe intolerence Verified 11/27/22 09:13 Inhibitor [Lttabyf-Fno-Hde Reductase Inhibitor] hydrochlorothiazide AdvReac Intermediate unknown Verified 11/27/22 09:13 red yeast rice AdvReac Intermediate unknown Verified 11/27/22 09:13 Family History Mother Hypertension Father CAD (coronary artery disease) Hypertension Grandmother CAD (coronary artery disease) Surgical History H/O hemorrhoidectomy History of aortic valve replacement with bioprosthetic valve (~09/27/20) History of cardiac catheterization (~03/2003) History of tricuspid valve repair (~09/27/20) Hx of ascending aorta replacement (~09/27/20) Social History Smoking Status: Never smoker alcohol intake: never substance use type: does not use caffeine: Yes Type: coffee Number of servings: 5 Vital Signs Vital Signs Vital Signs: 11/27/22 09:13 11/27/22 10:13 11/27/22 12:48 Temperature 97.6 F L 98.1 F Temperature Source Temporal Oral Pulse Rate 105 H 74 Respiratory Rate 14 16 Respiratory Effort Normal Non-Labored Respiratory Depth Respiratory Pattern Normal Blood Pressure 95/59 L 147/88 H Blood Pressure Mean 71 107 Blood Pressure Source Monitor Blood Pressure Position Semi-Fowlers Blood Pressure Location Right Arm Pulse Ox 98 95 Oxygen Delivery Method Room Air Room Air 11/27/22 12:12 11/27/22 16:09 Temperature 98.2 F Temperature Source Oral Pulse Rate 73 Respiratory Rate 16 Respiratory Effort Normal Non-Labored Respiratory Depth Normal Respiratory Pattern Normal Blood Pressure 112/74 Blood Pressure Mean 86 Blood Pressure Source Monitor Blood Pressure Position Semi-Fowlers Blood Pressure Location Right Arm Pulse Ox 95 Oxygen Delivery Method Room Air Room Air Weight Weight: 186 lb 1.6 oz Body Mass Index (BMI) 28.3 Physical Exam Const alert, oriented x3 and no apparent distress General Appearance: cooperative, comfortable and well kempt Neck full ROM General: normal visual inspection Resp normal respiratory effort and normal air movement Effort and Inspection: able to speak in complete sentences Cardio regular rate, regular rhythm and peripheral pulses 2+ throughout GI soft to palpation, non-tender and non-distended Back/Spine Back/Spine Narrative: No tenderness of the cervical thoracic or lumbar spine. The patient was able tostand and ambulate under his own power and walks with a normal gait. Thoracic Spine / Upper Back: normal to inspection Lumbar Spine / Lower Back: normal to inspection Extremity normal to inspection, full ROM, normal capillary refill, no clubbing, cyanosis or edema and no calf tenderness Neuro oriented x3, CN's II-XII intact bilaterally, moves all extremities, no focal motor deficits, no sensory deficits noted and deep tendon reflexes 2+ bilaterally Motor Exam: strength 5/5 throughout and muscle tone normal throughout Lab / Micro Data 11/27/22 09:34 11/27/22 09:34 Labs: Laboratory Results - last 24 hr 11/27/22 09:34: WBC 10.3, RBC 3.05 L, Hgb 8.4 L, Hct 27.9 L, MCV 91.5, MCH 27.5,MCHC 30.1 L, RDW Std Deviation 58.8 H, RDW Coeff of Duyen 17.9 H, Plt Count 233, MPV 8.3, Immature Gran % (Auto) 0.500, Neut % (Auto) 89.3 H, Lymph % (Auto) 4.1 L, [place]enden % (Auto) 4.1, Eos % (Auto) 1.6, Baso % (Auto) 0.4, Absolute Neuts (auto)9.2 H, Absolute Lymphs (auto) 0.42 L, Nucleated RBC % 0, Differential Comment SCANNED, Sodium 141, Potassium 3.7, Chloride 108 H, Carbon Dioxide 29.0, Anion Gap 4 L, BUN 18, Creatinine 1.33 H, Estim Creat Clear Calc 42.86, Est GFR (MDRD)Af Amer 66, Est GFR (MDRD) Non-Af 55 L, BUN/Creatinine Ratio 13.5, Glucose 96, Calcium 9.0, Total Bilirubin 0.70, AST 11 L, ALT 18, Alkaline Phosphatase 99, Total Protein 8.1, Albumin 3.3, Globulin 4.8 H, Albumin/Globulin Ratio 0.7 L, Lipase 27 11/27/22 10:00: Urine Color Yellow, Urine Clarity Clear, Urine pH 6.5, Ur Specific [place] 1.015, Urine Protein 30 H, Urine Glucose (UA) Normal, Urine Ketones Negative, Urine Occult Blood 10 H, Urine Nitrite Negative, Urine Bilirubin Negative, Urine Urobilinogen 1 H, Ur Leukocyte Esterase 25 H, Urine RBC 0 SEEN, Urine WBC 0-5 SEEN, Ur Squamous Epith Cells 0 SEEN, Urine Bacteria 0SEEN, Urine Mucus 0 SEEN 11/27/22 10:06: Lactic Acid 1.3 Micro: Microbiology 09/20/23 09:41 Nasal Secretion SARS-CoV-2 & FLU Antigen (Rapid) - Final Radiology Impression Chest X-Ray 11/27/22 09:58 IMPRESSION: Blunting of the costophrenic angles with mild basilar atelectasis at the left lung base. Electronically Signed: Lokesh Smith MD at 11:05 EDT , Lumbar Spine MRI 11/27/22 11:19 IMPRESSION: L4-5 disc edema, concerning for discitis. Modic type I endplate changes at L4-5 and correspond to symptoms of back pain. Electronically Signed: Sheridan Lewis MD at 16:47 EDT , Assessment & Plan Assessment/Plan (1) Discitis of lumbar region: PLAN: I had a lengthy discussion with the patient. I reviewed his imaging with him. MRI of the lumbar spine dated 11/27/2022 was reviewed. The radiologist hascommented on discitis of the L4-5 disc. I do not recommend surgery at this time. I recommend continued antibiotic management per infectious disease. Pain control and activity as tolerated. The patient can follow-up with me in clinic after discharge for any further neck or back issues. He understands and agrees with the treatment plan 11/27/22 1800 <Electronically signed by Eric Collins DO> Cosigner Signature (if applicable): CC: Dr. Rebecca Dinh MD; Dr. Eric Collins DO; Dr. Morteza Montoya MD~ Signed [facility] Work Phone: [phone]) 339-542209-20-2023 Consult note Author Silva Hastings [facility] November 27, 2022 4:55pm Note Date/Time November 27, 2022 4:55pm [facility] Medical Records Department [address] [place] [address] Pharmacokinetic/Renal -Consult 11/27/22 1651 MR#: [id number] Acct: [id number] Name: DAGOBERTO BAXETR Jr. Rep #:[id number] : 1940 82 From: Silva Hastings PCP: Dr. Rebecca Dinh MD Status:ADM I N Y Location: [place] [address] Consult Antibiotic Management Pharmacy has been consulted to manage selected antiobiotic: Vancomycin Type of Intervention Type of Consult: New start Suspected Infection Suspected Infection: Bacteremia Labs Labs: Sodium 141 mmol/L (136-145) 11/27/22 09:34 Potassium 3.7 mmol/L (3.5-5.1) 11/27/22 09:34 Chloride 108 mmol/L (98-107) H 11/27/22 09:34 Carbon Dioxide 29.0 mmol/L (21.0-32.0) 11/27/22 09:34 Anion Gap 4 (5-15) L 11/27/22 09:34 BUN 18 mg/dL (7-18) 11/27/22 09:34 Creatinine 1.33 mg/dL (0.70-1.30) H 11/27/22 09:34 Est GFR (MDRD) Af Amer 66 mL/min (>60) 11/27/22 09:34 Est GFR (MDRD) Non-Af 55 mL/min (>60) L 11/27/22 09:34 BUN/Creatinine Ratio 13.5 RATIO (10-20) 11/27/22 09:34 Glucose 96 mg/dL (74-106) 11/27/22 09:34 Microbiology Microbiology: Microbiology 11/27/22 09:41 Nasal Secretion SARS-CoV-2 & FLU Antigen (Rapid) - Final Goal Trough Goal Trough: 15-20 mcg/mL Pharmacy Plan for Drug Dosing Pharmacy Plan for Drug Dosing: NEW START IV VANCOMYCIN Consulting Physician: Dr. Mtz Indication: Bacteremia Goal Trough: 15-20 SrCr: 1.33 CrCl: 43 mL/min Comments: Vancomycin 1250mg IV x1 ordered and administered in ED 11/27/22 @1110 Vancomycin Dose: 500mg IV Q12hr to start 11/27/22 @2300 Pending Level: 11/28/22 @2230 Pharmacy Service will continue to monitor and adjust dosing as required. 11/27/22 2018 <Electronically signed by Silva Hastings > Date _ Silva Jacksonigner Signature (if applicable): Date CC: ~ Signed [facility] Work Phone: 1(247) 589-267109-20-2023 Consult note Author Morteza Montoya [facility] November 27, 2022 2:22pm Note Date/Time November 27, 2022 2:21pm [facility] Medical Records Department [address] [place] [address] Consultation - Infectious Dx 11/27/22 1416 MR#: [id number] Acct: [id number] Name: DAGOBERTO BAXTER Jr. Rep #:[id number] : 1940 82 From: Morteza saavedra MD PCP: Dr. Rebecca Dinh MD Status:ADM I N Location: [place] [address] Assessment & Plan Assessment/Plan (1) History of tricuspid valve repair: (2) Hx of ascending aorta replacement: (3) Streptococcal bacteremia: PLAN: Recommend MRI L spine with contrast. Reviewed [facility] records, MRI in that system. Consult spine surgery. Cover with vanc/ceftriaxone q12h for now. Recent colonoscopy with removal tubular adenoma as possible source of this strepinfection. Admitted in October with strep bacteremia as well. TTE pending, doeshave h/o valve replacement. Will follow, thank you, d/w ED and primary team (4) Osteomyelitis of lumbar spine: HPI Consult Data Date of Consult: 11/27/22 HPI Narrative Reason for Consultation: bacteremia HPI Narrative: DAGOBERTO BAXTER, is a 82 M with h/o valve replacement, who presented 11/01/22 to [facility] with about 5 weeks R lower back pain, some chills, fatigue, intermittent abdpain. Was on trip to [place] around time sx started. Found to have strep infantarius bacteremia. NIYAH neg, bcx cleared rapidly, back pain not reproducible on exam, and CT abd/pelvis showed no changes in his back. Discharged by hospitalist on 7 days po keflex. Referred for outpt colonoscopy, done 11/14 and tubular adenoma removed. Followed up with PCP for continued back pain, and MRI in [facility] system showed possible lumbar osteo/discitis but not well visualized without contrast. PCP called ID, bcx done 11/26, now growing strep. Called him, sent to ED, started on vanc/ceftriaxone after dose of cefepime. Feeling ok, back pain mild, stable. No associated weakness. Some intermittent mild fever/chills as outpt. Full ROS performed and neg except as noted above. [facility] Medical History Acute hypotension Acute on chronic anemia Acute right-sided low back pain Aortic aneurysm Asthma Atherosclerotic heart disease of [place] coronary artery without angina pectoris Back pain Bacteremia BPH (benign prostatic hyperplasia) Cancer Ciera esophagitis Cardiology follow-up encounter CPAP (continuous positive airway pressure) dependence Easy bruising Elevated serum creatinine Fatigue History of atrial fibrillation History of echocardiogram (~12/2015) History of edema History of GI bleed History of IBS History of left common carotid artery stent placement (~09/27/20) History of steroid therapy Hoarseness Hypertension Non-rheumatic mitral regurgitation Non-rheumatic tricuspid valve insufficiency Non-smoker Nonrheumatic mitral (valve) prolapse PARKER (obstructive sleep apnea) Postoperative atrial fibrillation Pure hypercholesterolemia Thoracic aortic aneurysm without rupture Weakness Wears glasses Home Medications aspirin 81 mg tablet,delayed release 81 mg PO QDAY SEE PCP 03/11/17 [History Last Taken Unknown] famotidine 20 mg tablet 40 mg PO QHS SEE PCP 06/21/19 [History Last Taken Unknown] ascorbic acid (vitamin C) 1,000 mg tablet 1 gm PO DAILY SUPPLEMENT 06/26/20 [History Last Taken Unknown] cholecalciferol (vitamin D3) 25 mcg (1,000 unit) tablet 25 mcg PO BID SUPPLEMEN 10/13/20 [History Last Taken Unknown] acetaminophen 325 mg tablet 650 mg PO Q6H PRN pain 10/20/20 [History Last Taken Unknown] losartan 50 mg tablet 50 mg PO DAILY #90 tabs 11/28/20 [Rx Last Taken 11/14/22] amlodipine 10 mg tablet 10 mg PO DAILY #90 tabs 01/17/22 [Rx Last Taken 11/13/22] cyanocobalamin (vitamin B-12) 1,000 mcg tablet 1,000 mcg PO DAILY SEE PCP 01/17/22 [History Last Taken Unknown] magnesium 200 mg tablet 200 mg PO DAILY SUPPLEMENT 01/17/22 [History Last Taken Unknown] tamsulosin 0.4 mg capsule 0.4 mg PO QHS SEE PCP 01/17/22 [History Last Taken Unknown] zinc acetate 25 mg (zinc) capsule 25 mg PO DAILY SEE PCP 01/17/22 [History Last Taken Unknown] ezetimibe 10 mg tablet (Zetia) 10 mg PO DAILY #90 tabs 01/30/22 [Rx Last Taken Unknown] coenzyme Q10 100 mg capsule 100 mg PO DAILY SUPPLEMENT 07/22/22 [History Last Taken Unknown] potassium chloride 20 mEq tablet,extended release 20 meq PO DAILY #90 tabs 10/16/22 [Rx Last Taken Unknown] apixaban 5 mg tablet (Eliquis) 5 mg PO BID #60 tabs 10/28/22 [Rx Last Taken Unknown] pantoprazole 40 mg tablet,delayed release (Protonix) 40 mg PO DAILY #30 tabs 11/05/22 [Rx Last Taken Unknown] amiodarone 200 mg tablet 200 mg PO BID #60 tabs 11/17/22 [Rx Last Taken 11/14/22] metoprolol tartrate 50 mg tablet 50 mg PO .qam #180 tabs 11/17/22 [Rx Last Taken 11/14/22] Allergy/AdvReac Type Severity Reaction Status Date / Time Kjumczg-JYU-MtN Reductase AdvReac Severe intolerence Verified 11/27/22 09:13 Inhibitor [Ghpgfdm-Erw-Yck Reductase Inhibitor] hydrochlorothiazide AdvReac Intermediate unknown Verified 11/27/22 09:13 red yeast rice AdvReac Intermediate unknown Verified 11/27/22 09:13 Family History Mother Hypertension Father CAD (coronary artery disease) Hypertension Grandmother CAD (coronary artery disease) Surgical History H/O hemorrhoidectomy History of aortic valve replacement with bioprosthetic valve (~09/27/20) History of cardiac catheterization (~03/2003) History of tricuspid valve repair (~09/27/20) Hx of ascending aorta replacement (~09/27/20) Social History Smoking Status: Never smoker alcohol intake: never substance use type: does not use caffeine: Yes Type: coffee Number of servings: 5 Physical Exam Const alert, oriented x3 and no apparent distress General Appearance: cooperative HEENT normocephalic and head/scalp atraumatic Eyes PERRL and EOMs intact bilaterally Neck supple and No nodes Resp normal air movement and clear to auscultation bilaterally Cardio regular rate and regular rhythm Heart Sounds: murmur GI soft to palpation, non-tender and non-distended Extremity Extremity Narrative: No spine tenderness General Extremity: Negative for edema Skin no rashes or lesions noted Neuro CN's II-XII intact bilaterally Lab / Micro Data Attestation: I reviewed the patient's lab results. 11/27/22 09:34 11/27/22 09:34 Labs: Laboratory Results - last 24 hr 11/27/22 09:34: WBC 10.3, RBC 3.05 L, Hgb 8.4 L, Hct 27.9 L, MCV 91.5, MCH 27.5,MCHC 30.1 L, RDW Std Deviation 58.8 H, RDW Coeff of Duyen 17.9 H, Plt Count 233, MPV 8.3, Immature Gran % (Auto) 0.500, Neut % (Auto) 89.3 H, Lymph % (Auto) 4.1 L, [place] % (Auto) 4.1, Eos % (Auto) 1.6, Baso % (Auto) 0.4, Absolute Neuts (auto)9.2 H, Absolute Lymphs (auto) 0.42 L, Nucleated RBC % 0, Differential Comment SCANNED, Sodium 141, Potassium 3.7, Chloride 108 H, Carbon Dioxide 29.0, Anion Gap 4 L, BUN 18, Creatinine 1.33 H, Estim Creat Clear Calc 42.86, Est GFR (MDRD)Af Amer 66, Est GFR (MDRD) Non-Af 55 L, BUN/Creatinine Ratio 13.5, Glucose 96, Calcium 9.0, Total Bilirubin 0.70, AST 11 L, ALT 18, Alkaline Phosphatase 99, Total Protein 8.1, Albumin 3.3, Globulin 4.8 H, Albumin/Globulin Ratio 0.7 L, Lipase 27 11/27/22 10:00: Urine Color Yellow, Urine Clarity Clear, Urine pH 6.5, Ur Specific [place] 1.015, Urine Protein 30 H, Urine Glucose (UA) Normal, Urine Ketones Negative, Urine Occult Blood 10 H, Urine Nitrite Negative, Urine Bilirubin Negative, Urine Urobilinogen 1 H, Ur Leukocyte Esterase 25 H, Urine RBC 0 SEEN, Urine WBC 0-5 SEEN, Ur Squamous Epith Cells 0 SEEN, Urine Bacteria 0SEEN, Urine Mucus 0 SEEN 11/27/22 10:06: Lactic Acid 1.3 Micro: Microbiology 11/27/22 09:41 Nasal Secretion SARS-CoV-2 & FLU Antigen (Rapid) - Final Radiology Impression Chest X-Ray 11/27/22 09:58 IMPRESSION: Blunting of the costophrenic angles with mild basilar atelectasis at the left lung base. Electronically Signed: Lokesh Smith MD at 11:05 EDT Reading Location ID and State: [facility] / [place] , Service support , 11/27/22 1422 <Electronically signed by Morteza Montoya MD> Cosigner Signature (if applicable): CC: Dr. Rebecca Dinh MD; Dr. Eric Collins DO; Dr. Morteza Montoya MD~ Signed [facility] Work Phone: [phone]) [phone] Discharge summary Author Cal Renee [facility] November 27, 2022 11:19am Note Date/Time November 27, 2022 9:21am [facility] Medical Records Department [address] [place] [address] Emergency Department Summary 11/27/22 MR#: [id number] Acct: [id number] Name: DAGOBERTO BAXTER JrLa Rep #:[id number] : 1940 82 From: Cal Juarez PCP: Dr. Rebecca Dinh MD Status:REG E R Location: ED HPI History of Present Illness Chief Complaint: General Illness [facility] Medical History Acute hypotension Acute on chronic anemia Acute right-sided low back pain Aortic aneurysm Asthma Atherosclerotic heart disease of [place] coronary artery without angina pectoris Back pain Bacteremia BPH (benign prostatic hyperplasia) Cancer Ciera esophagitis Cardiology follow-up encounter CPAP (continuous positive airway pressure) dependence Easy bruising Elevated serum creatinine Fatigue History of atrial fibrillation History of echocardiogram (~12/2015) History of edema History of GI bleed History of IBS History of left common carotid artery stent placement (~09/27/20) History of steroid therapy Hoarseness Hypertension Non-rheumatic mitral regurgitation Non-rheumatic tricuspid valve insufficiency Non-smoker Nonrheumatic mitral (valve) prolapse PARKER (obstructive sleep apnea) Postoperative atrial fibrillation Pure hypercholesterolemia Thoracic aortic aneurysm without rupture Weakness Wears glasses Home Medications aspirin 81 mg tablet,delayed release 81 mg PO QDAY 03/11/17 [History Last Taken Unknown] famotidine 20 mg tablet 40 mg PO QHS 06/21/19 [History Last Taken Unknown] ascorbic acid (vitamin C) 1,000 mg tablet 1 gm PO DAILY 06/26/20 [History Last Taken Unknown] cholecalciferol (vitamin D3) 25 mcg (1,000 unit) tablet 25 mcg PO BID 10/13/20 [History Last Taken Unknown] acetaminophen 325 mg tablet 650 mg PO Q6H PRN pain 10/20/20 [History Last Taken Unknown] losartan 50 mg tablet 50 mg PO DAILY #90 tabs 11/28/20 [Rx Last Taken 11/14/22] amlodipine 10 mg tablet 10 mg PO DAILY #90 tabs 01/17/22 [Rx Last Taken 11/13/22] cyanocobalamin (vitamin B-12) 1,000 mcg tablet 1,000 mcg PO DAILY 01/17/22 [History Last Taken Unknown] magnesium 200 mg tablet 200 mg PO DAILY 01/17/22 [History Last Taken Unknown] tamsulosin 0.4 mg capsule 0.4 mg PO QHS 01/17/22 [History Last Taken Unknown] zinc acetate 25 mg (zinc) capsule 25 mg PO DAILY 01/17/22 [History Last Taken Unknown] ezetimibe 10 mg tablet (Zetia) 10 mg PO DAILY #90 tabs 01/30/22 [Rx Last Taken Unknown] coenzyme Q10 100 mg capsule 100 mg PO DAILY 07/22/22 [History Last Taken Unknown] potassium chloride 20 mEq tablet,extended release 20 meq PO DAILY #90 tabs 10/16/22 [Rx Last Taken Unknown] apixaban 5 mg tablet (Eliquis) 5 mg PO BID #60 tabs 10/28/22 [Rx Last Taken Unknown] cephalexin 500 mg capsule 500 mg PO TID #21 caps 11/05/22 [Rx Last Taken Unknown] nystatin 100,000 unit/mL oral suspension 500,000 unit (5 mL) PO 4X/DAY #150 mL 11/05/22 [Rx Last Taken Unknown] pantoprazole 40 mg tablet,delayed release (Protonix) 40 mg PO DAILY #30 tabs 11/05/22 [Rx Last Taken Unknown] amiodarone 200 mg tablet 200 mg PO BID #60 tabs 11/17/22 [Rx Last Taken 11/14/22] metoprolol tartrate 50 mg tablet 50 mg PO .qam #180 tabs 11/17/22 [Rx Last Taken 11/14/22] Allergy/AdvReac Type Severity Reaction Status Date / Time Znmyjnq-DIC-CpW Reductase AdvReac Severe intolerence Verified 11/27/22 09:13 Inhibitor [Avmsidm-Yvy-Ryo Reductase Inhibitor] hydrochlorothiazide AdvReac Intermediate unknown Verified 11/27/22 09:13 red yeast rice AdvReac Intermediate unknown Verified 11/27/22 09:13 Family History Mother Hypertension Father CAD (coronary artery disease) Hypertension Grandmother CAD (coronary artery disease) Surgical History H/O hemorrhoidectomy History of aortic valve replacement with bioprosthetic valve (~09/27/20) History of cardiac catheterization (~03/2003) History of tricuspid valve repair (~09/27/20) Hx of ascending aorta replacement (~09/27/20) Social History Smoking Status: Never smoker alcohol intake: never substance use type: does not use caffeine: Yes Type: coffee Number of servings: 5 EXAM Physical Exam Const Vital Signs: 11/27/22 09:13 11/27/22 10:13 Temperature 97.6 F L Temperature Source Temporal Pulse Rate 105 H Respiratory Rate 14 Respiratory Effort Normal Non-Labored Respiratory Pattern Normal Blood Pressure 95/59 L Blood Pressure Mean 71 Pulse Ox 98 Oxygen Delivery Method Room Air [facility] [place] Narr[place] Medical decision making narrative: HISTORY OF PRESENT ILLNESS: 82-year-old male here with concern for "infection in his blood" states he was here couple weeks ago for the same. He further states he feels well but was told to come into the emergency department by his infectious disease doctor to be admitted secondary to having positive blood cultures. REVIEW OF SYSTEMS: Pertinent positives: Chronic back pain Pertinent negatives: Fever, cough, urinary complaints PHYSICAL EXAM: Nursing triage notes reviewed, Vital signs reviewed Constitutional: please see mdm HENT: MMM Eyes: Pupils equal round and reactive to light, Extraocular muscles intact Neck: No stridor, no JVD, full neck ROM Lungs: Clear to auscultation, No wheezing or rales. No increased work of breathing, no conversational dyspnea, no accessory muscle use, no nasal flaring. No respiratory distress noted Heart: Regular rate and rhythm, No murmurs, No rubs and No gallops, 2+ distal pulses (radial, femoral, posterior tibial) in all extremities Abdomen: Soft, there is no tenderness, rigidity, rebound or guarding, no obviousperitoneal signs, no palpable pulsatile abdominal masses, no auscultated abdominal bruit : No CVAT Back: No midline step-offs deformities or TTP noted over the thoracic or lumbar spine there was some slight TTP over the paraspinal muscles over the upper buttock/coccyx region Extremities: Trace edema Neuro: No focal neurological deficits, cranial nerves II through XII intact, 5/5strength in all extremities. Intact sensation to light touch in all extremities,2+ reflexes bilateral patella tendons. Normal gait. No ataxia. Intact sensation L1- S1 dermatomal distributions. Intact 5/5 strength in hip flexion (T12-L3). Knee extension (L2-L4). Ankle dorsiflexion (L4-L5). Ankle plantar flexion (S1). Great toe extension (L5). 2+ patellar and Achilles DTRs. Skin: No rash or lesions noted MEDICAL DECISION MAKING: Chief Complaint: Concern for bacteremia External records reviewed: Admitted at the end of October 2022 for A-fib with RVR, hypotension, acute on chronic anemia as well as bacteremia. Blood culture report from 11/26/2022 was reviewed and showed gram-positive cocci Factors affecting care: atrial fibrillation on Eliquis, hypertension, CAD, hyperlipidemia Social determinants of health: Elderly, good health literacy History obtained from others: The patient's Consults: Infectious disease, internal medicine ALL IMAGES (IF OBTAINED) HAVE BEEN PERSONALLY REVIEWED AND INTERPRETED BY MYSELF. EKG with rate controlled atrial fibrillation, left axis deviation, normal intervals, no STEMI CBC without leukocytosis, mild anemia, no thrombocytopenia Lipase is wnl indicating no pancreatic inflammation. Urinalysis shows no evidence of urinary inflammation suggestive of UTI Lactate is wnl indicating no end-organ hypoperfusion and/or hypoxia. I have personally reviewed the patient's chest x-ray. Chest x-ray is unremarkable for pulmonary edema, pneumothorax, pneumonia or focal cardiopulmonary abnormality. MDM Narrative: Patient was initially hypotensive, tachycardic otherwise well-appearing and asymptomatic. I considered the following differential diagnosis: Bacteremia, spinal osteomyelitis, epidural abscess, I obtained a broad lab and imaging work-up to further elucidate etiology of patient's complaints ruling out other source of infection. Also obtain blood cultures. Gave broad-spectrum antibiotics (cefepime, vancomycin) per patient report of positive blood cultures as an outpatient. Discussed with infectious disease and spine surgery. Both agreed the [facility]. Patient is admitted for IV antimicrobial therapy. The patient and/or family, caregivers express understanding. The patient and/orfamily, caregivers agrees with the plan. Shared decision making: I will have a discussion with the patient and or visitors regarding risk/benefits of further testing or admission. They will be made aware of of the risk/benefits inherent in this decision they will be given the opportunity to voice understanding. Total critical care time today provided was at least 0 minutes. This excludes separately billable procedures. Critical care time (if documented) is secondary to the patient having high probability of clinically significant/life threatening deterioration in the patient's condition which required my urgent intervention. Impression: 1. Gram-positive bacteremia 2. Osteo discitis 3. Tachycardia 4. Hypotension Dispo: Admit Lab Data Attestation: I reviewed the patient's lab results. Labs: Laboratory Results - last 24 hr 11/27/22 11/27/22 11/27/22 09:34 10:00 10:06 WBC 10.3 RBC 3.05 L Hgb 8.4 L Hct 27.9 L MCV 91.5 MCH 27.5 MCHC 30.1 L RDW Std Deviation 58.8 H RDW Coeff of Duyen 17.9 H Plt Count 233 MPV 8.3 Immature Gran % (Auto) 0.500 Neut % (Auto) 89.3 H Lymph % (Auto) 4.1 L [place] % (Auto) 4.1 Eos % (Auto) 1.6 Baso % (Auto) 0.4 Absolute Neuts (auto) 9.2 H Absolute Lymphs (auto) 0.42 L Nucleated RBC % 0 Differential Comment SCANNED Sodium 141 Potassium 3.7 Chloride 108 H Carbon Dioxide 29.0 Anion Gap 4 L BUN 18 Creatinine 1.33 H Estim Creat Clear Calc 42.86 Est GFR (MDRD) Af Amer 66 Est GFR (MDRD) Non-Af 55 L BUN/Creatinine Ratio 13.5 Glucose 96 Lactic Acid 1.3 Calcium 9.0 Total Bilirubin 0.70 AST 11 L ALT 18 Alkaline Phosphatase 99 Total Protein 8.1 Albumin 3.3 Globulin 4.8 H Albumin/Globulin Ratio 0.7 L Lipase 27 Urine Color Yellow Urine Clarity Clear Urine pH 6.5 Ur Specific [place] 1.015 Urine Protein 30 H Urine Glucose (UA) Normal Urine Ketones Negative Urine Occult Blood 10 H Urine Nitrite Negative Urine Bilirubin Negative Urine Urobilinogen 1 H Ur Leukocyte Esterase 25 H Urine RBC 0 SEEN Urine WBC 0-5 SEEN Ur Squamous Epith Cells 0 SEEN Urine Bacteria 0 SEEN Urine Mucus 0 SEEN Radiography Diagnostic Testing: Clinical Impression(s) from Imaging Studies Chest X-Ray 11/27/22 09:58 IMPRESSION: Blunting of the costophrenic angles with mild basilar atelectasis at the left lung base. Electronically Signed: Lokesh Smith MD at 11:05 EDT , Discharge Plan Triage Chief Complaint: General Illness ED Provider: Cal Renee Dx/Rx/DC Orders Prescriptions: No Action aspirin 81 mg tablet,delayed release (DR/EC) 81 mg PO QDAY famotidine 20 mg tablet 40 mg PO QHS ascorbic acid (vitamin C) 1,000 mg tablet 1 gm PO DAILY acetaminophen 325 mg tablet 650 mg PO Q6H PRN (Reason: pain) tamsulosin 0.4 mg capsule 0.4 mg PO QHS cyanocobalamin (vitamin B-12) 1,000 mcg tablet 1,000 mcg PO DAILY magnesium 200 mg tablet 200 mg PO DAILY zinc acetate 25 mg (zinc) capsule 25 mg PO DAILY amlodipine 10 mg tablet 10 mg PO DAILY Qty: 90 3RF Hold Instructions: Order Changed coenzyme Q10 100 mg capsule 100 mg PO DAILY Patient Comments: TAKE 1 CAPSULE BY MOUTH ONCE DAILY amiodarone 200 mg Tablet 200 mg PO BID Qty: 60 0RF Rx Instructions: 1 twice daily for 7 days starting 11/17, then 1 daily thereafter metoprolol tartrate 50 mg tablet 50 mg PO .qam Qty: 180 0RF Rx Instructions: 50mg ev AM, 25mg ev night nystatin 100,000 unit/mL Suspension 500,000 unit PO 4X/DAY Qty: 150 0RF cephalexin 500 mg capsule 500 mg PO TID Qty: 21 0RF Rx Instructions: start on 11/06/22 pantoprazole [Protonix] 40 mg tablet,delayed release (DR/EC) 40 mg PO DAILY Qty: 30 0RF cholecalciferol (vitamin D3) 25 mcg (1,000 unit) tablet 25 mcg PO BID losartan 50 mg tablet 50 mg PO DAILY Qty: 90 3RF ezetimibe [Zetia] 10 mg tablet 10 mg PO DAILY Qty: 90 3RF potassium chloride 20 mEq tablet extended release 20 meq PO DAILY Qty: 90 3RF Eliquis 5 mg tablet 5 mg PO BID Qty: 60 11RF Hold Instructions: Do not take Eliquis for 3 weeks, then resume previous dose Primary Care Provider: Rebecca Dinh Referrals: Rebecca Dinh MD [Primary Care Provider] - What to do if you have Problems For any increased pain, shortness of breath, bleeding, nausea or vomiting, chestpain, or any unexpected problems, contact your Primary Care Provider. Call [facility] ([phone]) or report to the closest Emergency Room. Call 911 if necessary. 11/27/22 1115 <Electronically signed by Cal Renee DO> Cosigner Signature (if applicable): CC: Dr. Rebecca Dinh MD ~ Signed [facility] Work Phone: 1(444) 509-907209-18-2023 Instructions* Patient Instructions* Silva Palacios PA-C - 11/25/2022 4:42 PM EDT Friday11/27/22 - 2:[address] Montoya, [facility], [facility] behind [facility]. documented in this encounterMag[facility]09-18-[facility]23 History of Present illness Narrative* Silva Palacios PA-C - 11/25/2022 3:06 PM EDT CC: Patient presents with: Follow Up: back pain- MRI results, patient was in hospital for 4 days septic blood infection wants to make sure its gone HPI Dagoberto Baxter JR is a 82 year old male who presents today with his for 4 week f/u LBP and todiscuss MRI LS results. Results as follows: IMPRESSION: 1. Endplate edema with fluid within disc space at L4-L5, particularly on the right. Although this may represent advanced degenerative changes, possibility of discitis or osteomyelitis should be excluded clinically and with lab work. 2. Multilevel degenerative changes of lumbar spine, without significant spinal canal stenosis, as detailed above. Neural foraminal stenosis, as detailed above. 3. Scoliotic spinal curvature with mild grade 1 spondylolisthesis, as detailed above. Anatomic Lumbar Variant: None. L4-5 is considered the level of the iliac crest and assume there are 5 lumbar-type vertebrae." Back pain has now been going on 8 weeks come tomorrow. Back pain is currently low level when he sits - usually about 2-3. Yesterday was about 5-7, with movement. New since prior visit: Was admitted at [facility] for alpha hemolytic strep bactermia/sepsis 11/01-11/05, with etiology undetermined. Other discharge diagnoses: Upper GI bleed secondary to angiodysplastic lesions in the stomach, Ciera esophagitis, acute blood loss anemia secondary to upper GI bleed requiring blood transfusion, paroxysmal atrial fibrillation with RVR, essential hypertension. Patient was discharged without any follow-up, aside from cardiology appointment scheduled for Friday. Feeling relatively well at this time, aside from back pain, which may have been slightly better while he was on IV antibiotics during admission. No recent fevers or generalized fatigue. Per , all of this started around the time that they were in [place] 09/19/22 and was feeling sick- he was shaking, felt hot, but didn't have thermometer. REVIEW OF SYSTEMS See HPI All other systems negative. 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 [phone] Solar Lentigo and Solar Lentigines 07/17/2011 Unspecified essential hypertension Essential hypertension PAST SURGICAL HISTORY Procedure Laterality Date COLONOSCOPY W/BIOPSY 11/29/02 [facility] - hemorrhoids COLONOSCOPY FLX DX W/COLLJ SPEC WHEN PFRMD 12/14/12 Colonoscopy COLONOSCOPY FLX DX W/COLLJ SPEC WHEN PFRMD 12/14/12 Colonoscopy HEART VALVE REPLACEMENT 06/2003 Bovine Pericardial Heart Valve HEMORRHOIDECTOMY INTERNAL RUBBER BAND LIGATIONS Hemorrhoidectomy LEFT HEART CATH,PERCUTANEOUS 03/2003 Cardiac cath, L heart OPEN TX NASOETHMOID FX W/O EXTERNAL FIXATION ALLERGIES Atenolol, Crestor [Rosuvastatin Calcium], Feathers, Fragrances, Lipitor [Atorvastatin Calcium], Lovastatin, Pollen, Pravastatin, and Red Yeast Rice MEDICATIONS amiodarone (PACERONE) 200 mg tablet^Take by mouth once daily.^Disp: ^Rfl: pantoprazole DR (PROTONIX) 40 mg tablet^Take 40 mg by mouth once daily.^Disp: ^Rfl: potassium chloride 20 mEq TbER^Take 1 tablet by mouth once daily.^Disp: 30 tablet^Rfl: 3 apixaban (ELIQUIS) 5 mg tab(s)^Take 5 mg by mouth twice daily.^Disp: ^Rfl: furosemide (LASIX) 40 mg tablet^Take 40 mg by mouth once daily.^Disp: ^Rfl: Zinc Acetate, Oral, 25 mg (zinc) cap^DAILY^Disp: ^Rfl: metoprolol tartrate, short acting, (LOPRESSOR) 25 mg tablet^Take 1 tablet by mouth twice daily.^Disp: 180 tablet^Rfl: 3 tamsulosin (FLOMAX) 0.4 mg^Take 1 capsule by mouth daily at bedtime.^Disp: 30 capsule^Rfl: 5 famotidine (PEPCID) 20 mg tablet^Take 1-2 tablets by mouth at bedtime as needed.^Disp: 180 tablet^Rfl: 3 amLODIPine (NORVASC) 10 mg tablet^Take 1 tablet by mouth once daily.^Disp: 90 tablet^Rfl: 3 losartan (COZAAR) 50 mg tablet^Take 1 tablet by mouth once daily.^Disp: 90 tablet^Rfl: 3 coenzyme Q10 (COENZYME Q-10) 100 mg cap capsule^Take 1 capsule by mouth once daily.^Disp: 30 capsule^Rfl: 0 cyanocobalamin (VITAMIN B-12) 1,000 mcg tab^Take 1 tablet by mouth once daily.^Disp: 90 tablet^Rfl:3 ezetimibe (ZETIA) 10 mg tablet^Take 1 tablet by mouth once daily.^Disp: ^Rfl: magnesium oxide 200 mg magnesium chew^Take by mouth.^Disp: ^Rfl: fluticasone (FLONASE) 50 mcg/actuation nasal spray^Use 2 Sprays in each nostril once daily. Rinse mouth after use.^Disp: 1 Each^Rfl: 0 (Patient taking differently: Use 2 Sprays in each nostril once daily. Rinse mouth after use.) aspirin 81 mg chewable tablet^1 tablet by ORAL/FEEDING TUBE route once daily.^Disp: 30 tablet^Rfl: 2 Cholecalciferol, Vitamin D3, (VITAMIN D) 25 mcg (1,000 unit) cap^Take 1 capsule by mouth twice daily.^Disp: 60 capsule^Rfl: 0 Ascorbic Acid (VITAMIN C) 1,000 mg tablet^Take 1,000 mg by mouth once daily. ^Disp: ^Rfl: BIPAP^Settings 16/11 with BUR 12, suitable mask per pt preference (Airfit F30), chin strap, head gear, humidity, tubing, lifetime supplies. G47.33 PARKER^Disp: 1 Device^Rfl: 0 OTC PRODUCT^garlic one tablet daily^Disp: ^Rfl: 0 FAMILY HISTORY Problem Relation Age of Onset Heart Mother valve replacement other (OHS) Mother 70 age 73 Coronary Artery Disease Father Hypertension Father other (Myocardial infarction) Father 69 other (HTN) Sister Lipids Brother other (HTN) Brother other (Myocardial infarction) Maternal Grandfather 73 Social History Tobacco Use Smoking status: Never Smokeless tobacco: Never Vaping Use Vaping Use: Never used Substance Use Topics Alcohol use: No Drug use: No PHYSICAL EXAM BP 118/60 (BP Site: Left Arm, BP Position: Sitting, BP Cuff Size: Large Adult) Pulse 93 Resp 12 Ht 172.7 cm (5' 8") Wt 87.1 kg (192 lb) SpO2 97% BMI 29.19 kg/m General Appearance: well appearing, in no acute distress, alert Pysch: mood and affect broad and appropriate Skin: Skin color, texture, turgor normal for age Head: normocephalic, atraumatic Lymph nodes: No cervical lymphadenopathy Lungs: Lungs clear to auscultation. No wheezing, rhonchi, rales. Heart: RRR without murmur, gallop, or rubs. No ectopy Abdomen: Normal abdominal exam BACK: Normal curvature of spine. Midline tenderness lower lumbar region. Straight leg test negative. Deep tendon patellar tendon reflexes 2+/4 Normal lower extremity strength, sensation in tact bilaterally. Extremities: No gross deformities, significant edema, skin discoloration, clubbing or cyanosis. Neurological: Gait normal. No focal neurological deficits. Sensation grossly intact. ASSESSMENT/PLAN: 1. Discitis of lumbosacral region - ICD9: 722.93, ICD10: M46.47 (primary diagnosis) Versus osteomyelitis as noted on recent MRI. Primary source of infection versus spread from recent bacteremia/sepsis, with etiology left undetermined during hospitalization-see below. Discussed options with patient and , to either present to ED for stat work-up to appropriately determine diagnosis and appropriate plan, versus stat referral to infectious disease. Was able to reach Dr. Carey, infectious disease that was consulted during patient's inpatient stay at [facility]. Discussed case with him, and he agreed to see patient in outpatient setting on Friday to pursue work-up and treatment further. Patient and agreed to this plan of care. - CBC + DIFF - COMP METABOLIC PANEL 2. Streptococcal bacteremia - ICD9: 790.7, 041.00, ICD10: R78.81, B95.5 Status post hospitalization for sepsis secondary to alphahemolytic strep-- This was news to me upon presentation Patient will return later this week for formal hospital follow-up, and an update after seeing infectious disease - CBC + DIFF - COMP METABOLIC PANEL 3. Upper GI bleed - ICD9: 578.9, ICD10: K92.2 We will review documents from patient's recent admission, and bring back in on a short-term basis for thorough hospital follow-up, after seeing infectious disease. - CBC + DIFF F/u for hospital f/u/osteomyelitis/discitis update this Friday after seeing ID Friday Prescription instructions reviewed with patient as applicable. Potential red flag symptoms discussed with the patient. Reviewed appropriate action plan to take if red flag symptoms occur. Patient agreeable to treatment plan. Silva Palacios PA-C documented in this encounterMag[facility]09-10-2023 Discharge summary Author Bay Marquez [facility] November 17, 2022 9:31pm Note Date/Time November 17, 2022 7:59pm [facility] Medical Records Department [address] [place] [id number] Emergency Department Summary 11/17/22 MR#: [id number] Acct: [id number] Name: DAGOBERTO BAXTER Jr. Rep #:[id number] : 1940 82 From: Bay Marquez MD PCP: Dr. Rebecca Dinh MD Status:REG E R Location: ED HPI History of Present Illness Chief Complaint: Palpitations Informant: patient and spouse/S.O. Narrative Narrative: Patient presents because his heart rate has been high. He is asymptomatic. He denies feeling any palpitations/A-fib although he knows he has been in it, chestdiscomfort, dyspnea, lightheadedness, syncope. He does have some edema in his legs that is a little worse than usual, he denies orthopnea. He has a red rash on his legs that have been there for 3 to 4 days he denies any pain or itching. States he has been checking his blood pressure periodically, and it tells him that his heart rate is in the 130s or low 100s, it has been highly variable depending on when he checks it, but he has never had any symptoms even if it wasin the 160s. He was admitted to the hospital a week ago, and started on amiodarone which she was on long ago but will had a hiatus from it. He had somevalvular surgeries remotely, he has no mechanical valves, he is anticoagulated on Eliquis. Denies any bleeding from anywhere. [facility] Medical History Acute hypotension Acute on chronic anemia Acute right-sided low back pain Aortic aneurysm Asthma Atherosclerotic heart disease of [place] coronary artery without angina pectoris Back pain Bacteremia BPH (benign prostatic hyperplasia) Cancer Ciera esophagitis Cardiology follow-up encounter CPAP (continuous positive airway pressure) dependence Easy bruising Elevated serum creatinine Fatigue History of atrial fibrillation History of echocardiogram (~12/2015) History of edema History of GI bleed History of IBS History of left common carotid artery stent placement (~09/27/20) History of steroid therapy Hoarseness Hypertension Non-rheumatic mitral regurgitation Non-rheumatic tricuspid valve insufficiency Non-smoker Nonrheumatic mitral (valve) prolapse PARKER (obstructive sleep apnea) Postoperative atrial fibrillation Pure hypercholesterolemia Thoracic aortic aneurysm without rupture Weakness Wears glasses Home Medications aspirin 81 mg tablet,delayed release 81 mg PO QDAY 03/11/17 [History Last Taken Unknown] famotidine 20 mg tablet 40 mg PO QHS 06/21/19 [History Last Taken Unknown] ascorbic acid (vitamin C) 1,000 mg tablet 1 gm PO DAILY 06/26/20 [History Last Taken Unknown] cholecalciferol (vitamin D3) 25 mcg (1,000 unit) tablet 25 mcg PO BID 10/13/20 [History Last Taken Unknown] acetaminophen 325 mg tablet 650 mg PO Q6H PRN pain 10/20/20 [History Last Taken Unknown] losartan 50 mg tablet 50 mg PO DAILY #90 tabs 11/28/20 [Rx Last Taken 11/14/22] amlodipine 10 mg tablet 10 mg PO DAILY #90 tabs 01/17/22 [Rx Last Taken 11/13/22] cyanocobalamin (vitamin B-12) 1,000 mcg tablet 1,000 mcg PO DAILY 01/17/22 [History Last Taken Unknown] magnesium 200 mg tablet 200 mg PO DAILY 01/17/22 [History Last Taken Unknown] tamsulosin 0.4 mg capsule 0.4 mg PO QHS 01/17/22 [History Last Taken Unknown] zinc acetate 25 mg (zinc) capsule 25 mg PO DAILY 01/17/22 [History Last Taken Unknown] ezetimibe 10 mg tablet (Zetia) 10 mg PO DAILY #90 tabs 01/30/22 [Rx Last Taken Unknown] coenzyme Q10 100 mg capsule 100 mg PO DAILY 07/22/22 [History Last Taken Unknown] potassium chloride 20 mEq tablet,extended release 20 meq PO DAILY #90 tabs 10/16/22 [Rx Last Taken Unknown] apixaban 5 mg tablet (Eliquis) 5 mg PO BID #60 tabs 10/28/22 [Rx Last Taken Unknown] cephalexin 500 mg capsule 500 mg PO TID #21 caps 11/05/22 [Rx Last Taken Unknown] nystatin 100,000 unit/mL oral suspension 500,000 unit (5 mL) PO 4X/DAY #150 mL 11/05/22 [Rx Last Taken Unknown] pantoprazole 40 mg tablet,delayed release (Protonix) 40 mg PO DAILY #30 tabs 11/05/22 [Rx Last Taken Unknown] amiodarone 200 mg tablet 200 mg PO BID #60 tabs 11/17/22 [Rx Last Taken 11/14/22] metoprolol tartrate 50 mg tablet 50 mg PO .qam #180 tabs 11/17/22 [Rx Last Taken 11/14/22] Allergy/AdvReac Type Severity Reaction Status Date / Time Giiymdd-TVT-MeW Reductase AdvReac Severe intolerence Verified 11/17/22 19:38 Inhibitor [Ujefbgd-Qrl-Wls Reductase Inhibitor] hydrochlorothiazide AdvReac Intermediate unknown Verified 11/17/22 19:38 red yeast rice AdvReac Intermediate unknown Verified 11/17/22 19:38 Family History Mother Hypertension Father CAD (coronary artery disease) Hypertension Grandmother CAD (coronary artery disease) Surgical History H/O hemorrhoidectomy History of aortic valve replacement with bioprosthetic valve (~09/27/20) History of cardiac catheterization (~03/2003) History of tricuspid valve repair (~09/27/20) Hx of ascending aorta replacement (~09/27/20) Social History Smoking Status: Never smoker alcohol intake: never substance use type: does not use caffeine: Yes Type: coffee Number of servings: 5 ROS ROS ED Constitutional Constitutional ED: Denies chills or fever(s) Eyes Eyes: Denies change in vision or diplopia ENT ENT ED: Denies rhinorrhea or sore throat Cardiovascular Cardiovascular: Reports leg edema; Denies chest pain, lightheadedness, palpitations or syncope Respiratory/Chest Respiratory/Chest: Denies cough or dyspnea Gastrointestinal Gastrointestinal: Denies abdominal pain, diarrhea, nausea or vomiting Genitourinary Genitourinary ED: Denies dysuria or hematuria Musculoskeletal Musculoskeletal: Denies back pain or neck pain Integumentary Denies abscess or rash Neurologic Neurologic: Denies headache(s), paresthesias or weakness Psychiatric Psychiatric: Denies anxiety or suicidal thoughts EXAM Physical Exam Const Vital Signs: 11/17/22 19:36 11/17/22 20:07 11/17/22 20:30 Temperature 98.6 F Temperature Source Temporal Pulse Rate 129 H 97 88 Respiratory Rate 18 20 H 17 Blood Pressure 130/90 H 125/79 H 125/80 H Blood Pressure Mean 103 94 95 Pulse Ox 96 20 97 Oxygen Delivery Method Room Air Room Air Room Air 11/17/22 20:43 11/17/22 21:00 Temperature Temperature Source Pulse Rate 92 94 Respiratory Rate 18 18 Blood Pressure 122/99 H 155/64 H Blood Pressure Mean 106 94 Pulse Ox 97 96 Oxygen Delivery Method Room Air Room Air Positive well nourished and well developed General Appearance ED: well developed and NAD HEENT Reports moist mucous membranes normocephalic and atraumatic Eyes PERRL and EOMs intact bilaterally Neck full ROM and supple Resp normal respiratory effort and clear to auscultation bilaterally Cardio Rate: tachycardic and other Other Details: Intermittently tachycardic, at the time of the exam the patient is in the low 100s. Also some audible valve clicking. Rhythm: abnormal rhythm irregularly irregular GI non-tender and non-distended Auscultation: normoactive bowel sounds Palpation: soft Back/Spine no CVA tenderness General Back: other FROM Extremity normal to inspection General Extremety ED: Yes edema; Negative for pulses abnormal or tenderness General Extremity: edema bilateral lower extremity Details: moderate; Negative for pulses abnormal Neuro oriented x3, CN's II-XII intact bilaterally and no sensory deficits noted Sensorium / Orientation: awake and alert Motor Exam: strength 5/5 throughout Psych mental status grossly normal Skin no wounds Skin Narrative: Macular red rash both lower legs, does not mamta and is nontender, could be petechial but atypical and the lesions are not well-circumscribed, they fade/feather at the perimeter. MDM MDM MDM Narrative Medical decision making narrative: Attempted basic labs and monitored the patient here for an hour or 2, the labs are unremarkable I reviewed them, and his heart rate went down into the 90s and rarely went over 100 before we gave him any Cardizem, so we held that and continue to monitor him and he did not have any significant tachycardia while wekept on on the monitor. His blood pressure was anywhere from 125 systolic to 155. I reviewed his recent inpatient visit. Cardiology was not consulted, theydid do an echo and NIYAH to rule out valvular vegetations, apparently he was tachycardic and hypotensive upon admission and had blood cultures positive for alphahemolytic strep, and already finished his antibiotics. He was on amiodarone twice daily for 4 days, and then went down to 200 mg once daily. He has had no more fevers, is feeling well and is afebrile here. I discussed all this with Dr. Jimenez, he recommends increasing his amiodarone 200 mg daily to twice daily for 1 week, then going back down to 200 mg daily in the morning, andalso increasing his metoprolol to tartrate 25 mg twice daily to a 50 mg dose in the morning going forward and following up in the office. They are comfortable with that plan. History & Record Review Additional record(s) reviewed:: Prior inpatient record and Prior labs Lab Data Attestation: I reviewed the patient's lab results. Labs: Laboratory Results - last 24 hr 11/17/22 19:45 WBC 12.2 H RBC 3.46 L Hgb 9.3 L Hct 32.0 L MCV 92.5 MCH 26.9 L MCHC 29.1 L RDW Std Deviation 57.2 H RDW Coeff of Duyen 17.0 H Plt Count 214 MPV 8.6 Immature Gran % (Auto) 0.400 Neut % (Auto) 88.1 H Lymph % (Auto) 6.1 L Crittenden % (Auto) 4.1 Eos % (Auto) 0.9 Baso % (Auto) 0.4 Absolute Neuts (auto) 10.7 H Absolute Lymphs (auto) 0.74 L Nucleated RBC % 0 Sodium 140 Potassium 3.9 Chloride 107 Carbon Dioxide 29.0 Anion Gap 4 L BUN 22 H Creatinine 1.15 Estim Creat Clear Calc 49.57 Est GFR (MDRD) Af Amer 79 Est GFR (MDRD) Non-Af 65 BUN/Creatinine Ratio 19.1 Glucose 116 H Calcium 8.8 Rhythm Strip Rhythm Strip: A-fib Rate: 106 Ectopy: None EKG Initial EKG: Attestation: I personally reviewed and interpreted this EKG as follows: Interpretation: No Acute Injury Pattern and Atrial Fibrillation Prior EKG tracings: available for review Prior: Unchanged Management Discussion w/another healthcare provider: Residential Program Manager (Cardiology) Discharge Plan Triage Chief Complaint: Palpitations ED Provider: Bay Marquez Dx/Rx/DC Orders Clinical Impression: Atrial fibrillation with RVR Instructions: AFib Dc Prescriptions: Continued aspirin 81 mg tablet,delayed release (DR/EC) 81 mg PO QDAY famotidine 20 mg tablet 40 mg PO QHS ascorbic acid (vitamin C) 1,000 mg tablet 1 gm PO DAILY acetaminophen 325 mg tablet 650 mg PO Q6H PRN (Reason: pain) tamsulosin 0.4 mg capsule 0.4 mg PO QHS cyanocobalamin (vitamin B-12) 1,000 mcg tablet 1,000 mcg PO DAILY magnesium 200 mg tablet 200 mg PO DAILY zinc acetate 25 mg (zinc) capsule 25 mg PO DAILY amlodipine 10 mg tablet 10 mg PO DAILY Qty: 90 3RF Hold Instructions: Order Changed coenzyme Q10 100 mg capsule 100 mg PO DAILY Patient Comments: TAKE 1 CAPSULE BY MOUTH ONCE DAILY nystatin 100,000 unit/mL Suspension 500,000 unit PO 4X/DAY Qty: 150 0RF cephalexin 500 mg capsule 500 mg PO TID Qty: 21 0RF Rx Instructions: start on 11/06/22 pantoprazole [Protonix] 40 mg tablet,delayed release (DR/EC) 40 mg PO DAILY Qty: 30 0RF cholecalciferol (vitamin D3) 25 mcg (1,000 unit) tablet 25 mcg PO BID losartan 50 mg tablet 50 mg PO DAILY Qty: 90 3RF ezetimibe [Zetia] 10 mg tablet 10 mg PO DAILY Qty: 90 3RF potassium chloride 20 mEq tablet extended release 20 meq PO DAILY Qty: 90 3RF Eliquis 5 mg tablet 5 mg PO BID Qty: 60 11RF Hold Instructions: Do not take Eliquis for 3 weeks, then resume previous dose Changed amiodarone 200 mg Tablet 200 mg PO BID Qty: 60 0RF Rx Instructions: 1 twice daily for 7 days starting 11/17, then 1 daily thereafter metoprolol tartrate 50 mg tablet 50 mg PO .qam Qty: 180 0RF Rx Instructions: 50mg ev AM, 25mg ev night Primary Care Provider: Rebecca Dinh Referrals: Rebecca Dinh MD [Primary Care Provider] - Anselmo Jimenez MD [Med Staff - Active Staff] - 1-2 Weeks (or Basilio Warren in office) Disposition Disposition: Home, Self Care What to do if you have Problems For any increased pain, shortness of breath, bleeding, nausea or vomiting, chestpain, or any unexpected problems, contact your Primary Care Provider. Call [facility] ([phone]) or report to the closest Emergency Room. Call 911 if necessary. 11/17/222130 <Electronically signed by Bay Marquez MD> Cosigner Signature (if applicable): CC: Dr. Rebecca Dinh MD ~ Signed [facility] Work Phone: [phone]) 972-375409-07-2023 History and physical note Author Darryl Friend [facility] November 14, 2022 10:24am Note Date/Time November 14, 2022 10:25am [facility] Medical Records Department [address] [place] [id number] History & Physical Exam 11/14/22 1024 MR#: [id number] Acct: [id number] Name: DAGOBERTO BAXTER Jr. Rep #:[id number] : 1940 82 From: Darryl Pimentel DO PCP: Dr. Rebecca Dinh MD Status:REG S DC Location: [place] [address] History and Physical Date of Admission: 11/14/22 82 M who presented to the emergency department with intermittent abdominal pain. They were traveling several weeks ago in early to mid September and were in [place]. The day they were supposed to leave it sounds like the patient developed rigors but he was able to make it home and since that point time he has had fatigue, right-sided low back pain and has had intermittent bouts of A-fib with RVR. He has a history of A-fib with RVR. Per the he experienced it after his heart surgery several years ago. He had been on amiodarone but this was discontinued by cardiology. He had some epigastric pain earlier today but it since resolved. He has had no melena, hematochezia, hematemesis or coffee-ground emesis. And no recent hospitalizations. They said they have called cardiology office several times but have not been able to obtain an appointment. His back pain is off to the right side and the right flank to right upper pelvic area Vital signs on presentation showed temperature of 99.1, heart rate was 160, blood pressure was 118/86, respiratory rate was 18 and oxygen saturations were 96% on room air. He was given some metoprolol on his blood pressures dropped to98/83. It did improve his heart rate some but he was still between 100-120. His CBC shows a normal white count however he does have a left shift with an 88.4% neutrophilia. His hemoglobin was 7.5 and his platelet count was 167,000. His BMP showed normal electrolytes with an elevated BUN at 19 and a serum creatinine of 1.46 which appears to be elevated from his baseline. [facility] Medical History Aortic aneurysm Asthma Atherosclerotic heart disease of [place] coronary artery without angina pectoris BPH (benign prostatic hyperplasia) History of echocardiogram (~12/2015) History of left common carotid artery stent placement (~09/27/20) Non-rheumatic mitral regurgitation Non-rheumatic tricuspid valve insufficiency Nonrheumatic mitral (valve) prolapse PARKER (obstructive sleep apnea) Postoperative atrial fibrillation Pure hypercholesterolemia Thoracic aortic aneurysm without rupture Home Medications aspirin 81 mg tablet,delayed release 81 mg PO QDAY 03/11/17 [History Last Taken Unknown] famotidine 20 mg tablet 40 mg PO QHS 06/21/19 [History Last Taken Unknown] ascorbic acid (vitamin C) 1,000 mg tablet 1 gm PO DAILY 06/26/20 [History Last Taken Unknown] cholecalciferol (vitamin D3) 25 mcg (1,000 unit) tablet 25 mcg PO BID 10/13/20 [History Last Taken Unknown] acetaminophen 325 mg tablet 650 mg PO Q6H PRN pain 10/20/20 [History Last Taken Unknown] losartan 50 mg tablet 50 mg PO DAILY #90 tabs 11/28/20 [Rx Last Taken Unknown] amlodipine 10 mg tablet 10 mg PO DAILY #90 tabs 01/17/22 [Rx Last Taken Unknown] cyanocobalamin (vitamin B-12) 1,000 mcg tablet 1,000 mcg PO DAILY 01/17/22 [History Last Taken Unknown] magnesium 200 mg tablet 200 mg PO DAILY 01/17/22 [History Last Taken Unknown] tamsulosin 0.4 mg capsule 0.4 mg PO QHS 01/17/22 [History Last Taken Unknown] zinc acetate 25 mg (zinc) capsule 25 mg PO DAILY 01/17/22 [History Last Taken Unknown] ezetimibe 10 mg tablet (Zetia) 10 mg PO DAILY #90 tabs 01/30/22 [Rx Last Taken Unknown] coenzyme Q10 100 mg capsule 100 mg PO DAILY 07/22/22 [History Last Taken Unknown] metoprolol tartrate 50 mg tablet 50 mg PO BID #180 tabs 09/02/22 [Rx Last Taken Unknown] furosemide 40 mg tablet See Rx Instructions .Route .COMPLEX #90 tabs 10/16/22 [Rx Last Taken Unknown] potassium chloride 20 mEq tablet,extended release 20 meq PO DAILY #90 tabs 10/16/22 [Rx Last Taken Unknown] apixaban 5 mg tablet (Eliquis) 5 mg PO BID #60 tabs 10/28/22 [Rx Last Taken Unknown] Allergy/AdvReac Type Severity Reaction Status Date / Time Itikdxk-PTK-TcR Reductase AdvReac Severe intolerence Verified 11/01/22 19:05 Inhibitor [Gqpgbvp-Vpw-Wyu Reductase Inhibitor] hydrochlorothiazide AdvReac Intermediate unknown Verified 11/01/22 19:05 red yeast rice AdvReac Intermediate unknown Verified 11/01/22 19:05 Family History Mother HypertensionFather CAD (coronary artery disease) HypertensionGrandmother CAD (coronary artery disease) Surgical History H/O hemorrhoidectomy History of aortic valve replacement with bioprosthetic valve (~09/27/20) History of cardiac catheterization (~03/2003) History of tricuspid valve repair (~09/27/20) Hx of ascending aorta replacement (~09/27/20) Social History Smoking Status: Never smoker alcohol intake: never substance use type: does not use caffeine: Yes Type: coffee Number of servings: 5 ROS Constitutional Constitutional: Reports fatigue and weakness; Denies anorexia, change in weight,chills, fever(s), malaise, night sweats or other Eyes Eyes: Denies blurry vision, change in eye color, change in vision, discharge from eye(s), double vision, erythema, eye pain, loss of vision or other ENT HEENT: Denies abnormal hearing, dysphagia, ear pain, epistaxis, headache(s), hearing loss, nasal congestion, nasal discharge, post nasal drip, sinus pressure, sore throat or other Cardiovascular Cardiovascular: Reports rapid heart rate; Denies chest pain, claudication, dyspnea on exertion, edema, lightheadedness, orthopnea, palpitations, paroxysmalnocturnal dyspnea, syncope or other Respiratory/Chest Respiratory/Chest: Reports shortness of breath with exertion Gastrointestinal Gastrointestinal: Reports diarrhea and dyspepsia Genitourinary Genitourinary: Denies burning urination, difficulty urinating, dysuria, hematuria, nocturia, urinary frequency, urinary hesitancy, urinary incontinence,urinary urgency or other Musculoskeletal Musculoskeletal: Reports back pain; Denies arthralgias, joint pain, joint stiffness, joint swelling, myalgias, neck pain or other Neurologic Neurologic: Denies abnormal gait, abnormal speech, confusion, disequilibrium, dizziness, focal weakness, headache(s), numbness, paresthesias, seizure-like activity, seizures, syncope, tingling, tremor(s) or other Psychiatric Psychiatric: Denies anxiety, depression, homicidal ideation, suicidal ideation or other Endocrine Endocrinology: Denies change in body appearance, cold intolerance, excessive sweating, heat intolerance, polydipsia, polyuria or other Allergic/Immunologic Allergic/Immunologic: Denies rhinitis, hives, eczemia, asthma or other Physical Exam Narrative GENERAL: cooperative HEENT: Atraumatic; normocephalic EYES; Anicteric, Normal Conjunctiva NECK; supple, normal thyroid, RESPIRATORY: Diminished to auscultation CARDIOVASCULAR: Regular S1 S2, GI: soft, normoactive bowel sounds, : No Renal angle tenderness; EXTREMITIES: No edema, no clubbing, MUSCULOSKELETAL: no muscle wasting NEURO: Awake; no lateralizing signs. SKIN: No Rash PSYCH; Flat affect Lab / Micro Data 11/03/22 06:22 11/03/22 06:22 Labs: Laboratory Results - last 24 hr 11/02/22 11:50: Troponin I High Sens 12, Blood Type O POSITIVE, Antibody Screen NEGATIVE, Crossmatch See Detail 11/03/22 06:22: WBC 8.7, RBC 3.08 L, Hgb 8.3 L, Hct 26.5 L, MCV 86.0, MCH 26.9 L , MCHC 31.3 L D, RDW Std Deviation 49.6 H, RDW Coeff of Duyen 15.8 H, Plt Count 186, MPV 8.5, Immature Gran % (Auto) 0.500, Neut % (Auto) 84.7 H, Lymph % (Auto)8.0 L, [place] % (Auto) 5.2, Eos % (Auto) 1.4, Baso % (Auto) 0.2, Absolute Neuts (auto) 7.3, Absolute Lymphs (auto) 0.69 L, Nucleated RBC % 0, Sodium 135 L, Potassium 3.3 L, Chloride 100, Carbon Dioxide 29.0, Anion Gap 6, BUN 17, Creatinine 1.19, Estim Creat Clear Calc 47.90, Est GFR (MDRD) Af Amer 76, Est GFR (MDRD) Non-Af 62, BUN/Creatinine Ratio 14.3, Glucose 109 H, Calcium 8.2 L Micro: Microbiology 11/02/22 01:55 Blood Culture (Wb) - Anticubital Left Bacteria Detection (PCR) - Preliminary Strep not Strep pneumo 11/02/22 01:55 Blood Culture (Wb) - Anticubital Left Blood Culture - Preliminary 11/02/22 02:08 Blood Culture (Wb) - Anticubital Left Blood Culture - Preliminary 11/02/22 05:40 Mucosa - Nasopharyngeal Respiratory Panel (PCR) - Final 11/02/22 03:50 Nasal Secretion SARS-CoV-2 Antigen (Rapid) - Final Radiology Impression Echocardiogram 11/01/22 22:07 Interpretation Summary The left ventricular ejection fraction is 50 %. The left atrium is severely enlarged. The right atrium is moderately enlarged. Moderate (2+) mitral valve insufficiency. Ordering Physician: Emma Medina Referring Physician: FABRIZIO Performed By: Sheila Sahu RCS Assessment & Plan Assessment/Plan (1) Acute on chronic anemia: (2) Acute hypotension: (3) Atrial fibrillation with RVR: (4) Acute right-sided low back pain: (5) Anticoagulant long-term use: (6) Elevated serum creatinine: (7) Weakness: (8) Fatigue: QUALIFIERS: Fatigue type: chronic, unspecified Qualified Code(s): R53.82 - Chronic fatigue, unspecified PLAN: Plan Acute on chronic anemia -Baseline hemoglobin appears to be running between 9 and 10 -Was 9.7 on 10/05/2022 but now 7.5 -Check iron studies -Guaiac stool pending -Check liver panel for signs of hemolysis -Patient has been holding his diuretics so it theoretically could be dilutional -We will utilize IV PPI twice daily dosing for now and if guaiac positive will consult GI and hold apixaban -Check every 6 hours H&H -Recommend to hold apixaban -He should undergo an evaluation of his upper and lower GI tract due to his increased BUN to creatinine ratio and decrease in hemoglobin with the need for anticoagulation due to his recurrent paroxysmal atrial fibrillation. He was explained alternatives, risk, benefits include not withstanding bleeding, infection, sepsis, perforation, need for emergent surgery . Have an ASA of3. I have examined the patient and the H&P has been reviewed. There are no clinicalchanges since date of exam. 11/14/22 1024 <Electronically signed by Darryl Pimentel DO> Cosigner Signature (if applicable): CC: Dr. Rebecca Dinh MD; Darryl Pimentel DO~ Signed [facility] Work Phone: 1(299) 274-807909-07-2023 Procedure [facility] 11-14-2022 Procedure [facility]09-06-2023 Miscellaneous Notes* Telephone Encounter - Tania Hernandez Lucero - 11/13/2022 5:18 PM EDT Patient agreeable, please assist in scheduling. * Telephone Encounter - Silva Palacios PA-C - 11/13/2022 4:22 PM EDT Upon further review of his previous workup, I think we should get an MRI before we direct to pain management so we know what we're dealing with-- I have placed order. If he's okay with that plan, let's get him scheduled for MRI. Silva Palacios PA-C * Telephone Encounter - Joyce High LPN - 11/13/2022 8:28 AM EDT It is for the low back pain. Whatever your recommendations are for referral of pain management. Joyce High LPN * Telephone Encounter - Silva Palacios PA-C - 11/13/2022 7:15 AM EDT That's okay if that's the route he wants to go-- can you check and see what type of pain managementhe's talking about? Medication versus interventional/possible injections so I can direct the referral appropriately-- and if you can, see if there's anyone in particular he's hoping to see? Silva Palacios PA-C * Telephone Encounter - Angelika Kenyon RN - 11/08/2022 4:55 PM EDT Patient states he was seen by Dr. Bear on 10/10 and Silva GODOY on 10/28 for acute right-sided low back pain without sciatica. Pt has F/U appt with provider on 11/25. Reports low back pain continues. Pt asking if too soon to request Pain management referral? Or if needs to wait until 11/25 F/U appt to discuss? Please advise pt at [phone]. Thank you. [facility] History of Present illness Narrative* Nadine Proctor RN - 11/07/2022 12:30 PM EDT IRB [id number]: BLUE PI: Dr. Vuaghan Study Visit: Annual I met with the patient for the 2 year follow up for the B-SAFER Study. Reaffirmed that the patient still wishes to participate in the study and continues to consent to the study. Patient informed if they are unable to return to [facility] for study- related visit, testing may be completed locally with virtual visit / phone call completed with [facility] personnel. Has the patient had any changes in his health since the last study visit? No Medications and allergy lists reviewed. Has the patient had any outside hospitalizations/ER visits: Yes Dates and locations: November 01, 2022 at [facility] for Dx:Bacteremia c/o back pain. Modified Rich completed: Yes Modified Rich Score: 0 = No symptoms Discussed with the patient the importance of follow up in the study. He verbalized understanding. Next study visit will be in 12 months. Patient contact information reaffirmed and updated. Coordinator contact information provided to the patient. Education provided: Follow up requirements/schedule Materials dispensed: Coordinator Contact Card Nadine Proctor RN Pager #:[phone] documented in this encounterMag[facility]08-31-[facility]23 History of Present illness Narrative* Yaneli Skaggs RN - 11/07/2022 10:30 AM EDT Radiology Service Progress Note DATE OF SERVICE: November 07, 2022 TIME: 11:21 AM PATIENT WEIGHT: 186 LBS PATIENT IDENTITY VERIFICATION COMPLETED USING TWO (2) STANDARD IDENTIFIERS: Name and Date of confirmed by patient verbally and Name and Date of confirmed by identification band. FALL SCREENING: Has the patient had 2 falls in the last year or 1 fall with injury or currently using an Ambulatory Assistive Device (Walker, Cane, Wheelchair, Crutches, etc.)? No PATIENT GENDER DATA: Male ALLERGIES: Reviewed and unchanged CONTRAST ALLERGY: No EXAM: CT -CONTRAST INDUCED NEPHROPATHY RISK FACTORS: Patient age > 60 years CREATININE: Creatinine Date Value Ref Range Status 09/22/2022 1.03 0.73 - 1.22 mg/dL Final 12/31/2021 1.29 (H) 0.73 - 1.22 mg/dL Final Creatinine (POCT) Date Value Ref Range Status 11/01/2021 1.10 0.7 - 1.4 mg/dL Final Estimated Glomerular Filtration Rate Date Value Ref Range Status 09/22/2022 73 >=60 mL/min/1.73m Final Comment: Estimated Glomerular Filtration Rate (eGFR) is calculated using the 2020 CKD-EPI creatinine equation. This equation utilizes serum creatinine, sex, and age as parameters. The creatinine assay has traceable calibration to isotope dilution- mass spectrometry. Refer to KDIGO guidelines for clinical interpretation. In patients with unstable renal function, e.g. those with acute kidney injury, the eGFRmay not accurately reflect actual GFR. eGFR- Date Value Ref Range Status 02/15/2021 >60 Final P.O.C.T. RESULTS: N/A November 07, 2022 TREATMENT: No Hydration needed. IV SITE: Ambulatory: A peripheral IV was started in the Right antecubital site with a Angio cath: 20 gauge. and A Saline lock was inserted per protocol IV SITE APPEARANCE: Clean,Dry and Intact SIGNATURE: Yaneli Skaggs RN PATIENT NAME: Dagoberto Baxter JR DATE: November 07, 2022 TIME: 11:21 AM * Daniela Long RT(R) - 11/07/2022 10:30 AM EDT Radiology Service Progress Note PATIENT NAME: Dagoberto Baxter JR DATE OF SERVICE: November 07, 2022 TIME: 11:54 AM PATIENT IDENTITY VERIFICATION COMPLETED USING TWO (2) IDENTIFIERS: Name and Date of confirmedby patient verbally. FALL SCREENING: Has the patient had 2 falls in the last year or 1 fall with injury or currently using an Ambulatory Assistive Device (Walker, Cane, Wheelchair, Crutches, etc.)? No PATIENT GENDER DATA: Male PATIENT RELEVANT IMPLANT DATA REVIEWED: Yes RADIOLOGY DEPARTMENT: CT; Exam(s) Completed: Cardiac PERIPHERAL IV DATA: Site assessment: Clean,Dry and Intact, Site disposition Discontinued SIGNED BY: RT Heavenly(R) November 07, 2022 11:54 AM documented in this encounterMag[facility]08-31-[facility]23 History of Present illness Narrative* Garth Galaviz MD - 11/07/2022 9:30 AM EDT Images from the original note were not included. [facility] Department of Cardiovascular Medicine SECTION OF CARDIAC PACING and ELECTROPHYSIOLOGY OUTPATIENT VISIT DATE November 07, 2022 OUTPATIENT VISIT TYPE CONSULTATION PRIMARY CARE PHYSICIAN: Rebecca Dinh [address] [place] [address] REFERRING PHYSICIAN Reynaldo Corona [address] [facility] [address] CHIEF COMPLAINT: AF HISTORY OF PRESENT ILLNESS/NURSING INTAKE HISTORY: Cardiac consultation at the request of Dr. Reynaldo Corona.A copy of this consultation note will be provided to the requesting physician by way of shared Medical record or letter to requesting physician via US mail. Mr. Baxter is a 82 year old male who is seen today for atrial fibrillation. He has a past medical history of aortic valve replacement 2003, S/P TEVAR 09/27, AVR and TVr, aneurysm of the subclavian artery, BPH, HTN, HLD, asthma, PARKER, and atrial fibrillation. Follow TEVAR procedure 09/27/2020 he developed post op atrial fibrillation and was started on amiodarone drip. He was then placed on eliquis and metoprolol. He presented to the ED on 09/22/2022 with shortness of breath and palpitations. HR was elevated in 130s. EKG showed atrial fibrillation. He has been maintained on eliquis and metoprolol. He converted to normal rhythm. Echo on 11/02/2022 showed LVEF 50%. LA severely enlarged. 2+ mitral valve insufficiency. He presented back to the ED last week locally and was discharged on PO amiodarone. His hemoglobin was decreased to 7.5 and he received 2 units of PRBCs. He is scheduled for a colonoscopy next week. EGD was completed that showed esophageal plaques. 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 He has been off eliquis over the past couple days. He denies palpitations, lightheadedness, dizziness, or syncope. He reports occasional shortness of breath. 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 [phone] Solar Lentigo and Solar Lentigines 07/17/2011 Unspecified essential hypertension Essential hypertension PAST SURGICAL HISTORY Procedure Laterality Date COLONOSCOPY W/BIOPSY 11/29/02 [facility] - hemorrhoids COLONOSCOPY FLX DX W/COLLJ SPEC WHEN PFRMD 12/14/12 Colonoscopy COLONOSCOPY FLX DX W/COLLJ SPEC WHEN PFRMD 12/14/12 Colonoscopy HEART VALVE REPLACEMENT 06/2003 Bovine Pericardial Heart Valve HEMORRHOIDECTOMY INTERNAL RUBBER BAND LIGATIONS Hemorrhoidectomy LEFT HEART CATH,PERCUTANEOUS 03/2003 Cardiac cath, L heart OPEN TX NASOETHMOID FX W/O EXTERNAL FIXATION SOCIAL HISTORY Social History Tobacco Use Smoking status: Never Smokeless tobacco: Never Vaping Use Vaping Use: Never used Substance Use Topics Alcohol use: No Drug use: No FAMILY HISTORY Problem Relation Age of Onset Heart Mother valve replacement other (OHS) Mother 70 age 73 Coronary Artery Disease Father Hypertension Father other (Myocardial infarction) Father 69 other (HTN) Sister Lipids Brother other (HTN) Brother other (Myocardial infarction) Maternal Grandfather 73 ALLERGIES: ALLERGIES Allergen Reactions Atenolol Unknown Crestor [Rosuvastat* Intolerance myalgia Feathers Fragrances Lipitor [Atorvastat* GI Upset Lovastatin Intolerance myalgia Pollen Pravastatin Intolerance myalgia Red Yeast Rice Intolerance myalgia MEDICATIONS: amiodarone (PACERONE) 200 mg tablet Take by mouth once daily. potassium chloride 20 mEq TbER Take 1 tablet by mouth once daily. apixaban (ELIQUIS) 5 mg tab(s) Take 5 mg by mouth twice daily. furosemide (LASIX) 40 mg tablet Take 40 mg by mouth once daily. Zinc Acetate, Oral, 25 mg (zinc) cap DAILY metoprolol tartrate, short acting, (LOPRESSOR) 25 mg tablet Take 1 tablet by mouth twice daily. tamsulosin (FLOMAX) 0.4 mg Take 1 capsule by mouth daily at bedtime. iv contrast (will be provided with radiology test) CTA CHEST (NONGATED) ABD/PEL WO/W IVCON - No IV access, insert saline lock prior to the sedation, infusion, injection for imaging exam. Discontinue saline lock post exam. If Pt. has a central line or IVAD, may access for administration according toline specific nursing protocol. Once exam is complete flush line and de-access according to line specific nursing protocol in the CT contrast administration guidelines link. famotidine (PEPCID) 20 mg tablet Take 1-2 tablets by mouth at bedtime as needed. amLODIPine (NORVASC) 10 mg tablet Take 1 tablet by mouth once daily. losartan (COZAAR) 50 mg tablet Take 1 tablet by mouth once daily. coenzyme Q10 (COENZYME Q-10) 100 mg cap capsule Take 1 capsule by mouth once daily. cyanocobalamin (VITAMIN B-12) 1,000 mcg tab Take 1 tablet by mouth once daily. ezetimibe (ZETIA) 10 mg tablet Take 1 tablet by mouth once daily. magnesium oxide 200 mg magnesium chew Take by mouth. fluticasone (FLONASE) 50 mcg/actuation nasal spray Use 2 Sprays in each nostril once daily. Rinse mouth after use. (Patient taking differently: Use 2 Sprays in each nostril once daily. Rinse mouth after use.) aspirin 81 mg chewable tablet 1 tablet by ORAL/FEEDING TUBE route once daily. Cholecalciferol, Vitamin D3, (VITAMIN D) 25 mcg (1,000 unit) cap Take 1 capsule by mouth twice daily. Ascorbic Acid (VITAMIN C) 1,000 mg tablet Take 1,000 mg by mouth once daily. BIPAP Settings 23/01 with BUR 12, suitable mask per pt preference (Airfit F30), chin strap, head gear, humidity, tubing, lifetime supplies. G47.33 PARKER OTC PRODUCT garlic one tablet daily REVIEW OF SYSTEMS: General, constitutional: Weight loss or gain- No, Fever or chills-No, Weakness- No, Trouble sleeping-No. Head, Eyes, Ears, Mouth: Headache, head injury-No, Glasses or contact lenses- yes, Pain-yes, Impaired vision-No, Decreased hearing-No, Ringing in ears-No, Nose bleeds-No, Dental difficulties-No, Bleeding gums-No, Dentures-No. Neck: Swelling-No, Pain-No, Stiffness-No. Respiratory: Cough-No, Spitting up blood-No, Shortness of breath-No, Wheezing or asthma-No. Musculoskeletal: Muscle or joint pain or stiffness-No, Joint swelling-No. Gastrointestinal: Difficulty swallowing-No, Heartburn-No, Change in bowel habits-No, Blood in stool, Dark black stools-No. Neurological/Psychiatric: Weakness, paralysis-No, Numbness-No, Tingling-No, Tremor-No, Nervousness or anxiety-No, Depressed mood-No, Memory loss-No. Skin: Rash-No, Itching-No. Hematological: Easy bruising yes, Easy bleeding-yes. Endocrine: Heat or cold intolerance-No, Excessive sweating-No, Frequent urination-yes, Frequent thirst-No. Ara Gold RN PHYSICAL EXAMINATION: BP 131/98 Pulse 68 Ht 172.7 cm (5' 8") Wt 84.4 kg (186 lb) BMI 28.28 kg/m General: Well appearing, in no acute distress, speaking in complete sentences. CARDIOVASCULAR MEDICINE TESTING: EKG 09/22/2022 Echo 11/02/2022 IMPRESSION: Mr. Baxter is a 82 year old male who has a PMH of aortic valve replacement 2003, S/P TEVAR 09/27,AVR and TVr, aneurysm of the subclavian artery, BPH, HTN, HLD, asthma, PARKER, and atrial fibrillation. Follow TEVAR procedure 09/27/2020 he developed post op atrial fibrillation and was started on amiodarone drip. He was then placed on eliquis and metoprolol. He presented to the ED on 09/22/2022 with shortness of breath and palpitations. HR was elevated in 130s. EKG showed atrial fibrillation. He has been maintained on eliquis and metoprolol. He converted to normal rhythm by himself and lasix was given for heart failure. On his recent local ED visit, his hemoglobin was noted to be low at 7.5 and he had 2 units of PRBC.EGD showed small bleeding source in his stomach and was cauterized. His colonoscopy is scheduled on11/14. He is here for the management of his AF and bleeding problem. He does not notice any AF and is still active. His AF is well HR controlled. I recommended to re-start Eliquis after his colonoscopy and watch his hemoglobin. If he still has bleeding problem, we then consider Watchman procedure +/- PVI. If she does not have bleeding problem and can continue Eliquis. We consider DCCV on amiodarone. PLAN AND RECOMMENDATIONS: # Persistent AF, now off Eliquis # GI bleeding # HTN # HLP # s/p TEVAR 09/27/2020 - Please have colonoscopy and check any bleeding source - If no bleeding source found in colonoscopy, then please start Eliquis - Depending of the bleeding problem after starting Eliquis, we consider Watchman + PVI vs. DCCV I personally interviewed, confirmed and edited the above information as obtained by others. Signature: GARTH GALAVIZ MD, PhD Department: Associate Staff, Department of Cardiac Electrophysiology DATE of SERVICE: 11/07/2022 TIME of SERVICE: 11:02 AM documented in this encounter[facility]08-[facility]23 Discharge summary Author Harshal Mtz [facility] November 05, 2022 3:35pm Note Date/Time November 05, 2022 2: 25pm [facility] Medical Records Department [address] [place] [address] Instructions for Home/Discharge Instructions 11/05/22 1423 MR#: [id number] Acct: [id number] Name: DAGOBERTO BAXTER Jr. Rep #:[id number] : 1940 82 From: Harshal Mtz DO PCP: Dr. Rebecca Dinh MD Status:ADM I N Discharge Instructions Diet Discharge Diet: No restrictions Activity Discharge Activity: Return to Normal Activity Weight Bearing Status: Full weight bearing Follow Up Care Test Results: Test results from this visit will be discussed in further detail at your follow- up appointment, if applicable. Discharge Plan Admission Admit Date/Time: 11/01/22 20:51 Primary Reason for Your Visit: For gastrointestinal bleed, anemia Attending Provider: Harshal Mtz Primary Care Provider: Rebecca Dinh Consulting Providers: Emma Medina; Jarek Crystal; Morteza Montoya Discharge Orders/Prescriptions Prescriptions: New nystatin 100,000 unit/mL Suspension 500,000 unit PO 4X/DAY Qty: 150 0RF amiodarone 200 mg Tablet 200 mg PO UD Qty: 60 0RF Rx Instructions: 1 twice daily for 4 days, then 1 daily thereafter cephalexin 500 mg capsule 500 mg PO TID Qty: 21 0RF Rx Instructions: start on 11/06/22 pantoprazole [Protonix] 40 mg tablet,delayed release (DR/EC) 40 mg PO DAILY Qty: 30 0RF Continued aspirin 81 mg tablet,delayed release (DR/EC) 81 mg PO QDAY famotidine 20 mg tablet 40 mg PO QHS ascorbic acid (vitamin C) 1,000 mg tablet 1 gm PO DAILY acetaminophen 325 mg tablet 650 mg PO Q6H PRN (Reason: pain) tamsulosin 0.4 mg capsule 0.4 mg PO QHS cyanocobalamin (vitamin B-12) 1,000 mcg tablet 1,000 mcg PO DAILY magnesium 200 mg tablet 200 mg PO DAILY zinc acetate 25 mg (zinc) capsule 25 mg PO DAILY amlodipine 10 mg tablet 10 mg PO DAILY Qty: 90 3RF Hold Instructions: Order Changed coenzyme Q10 100 mg capsule 100 mg PO DAILY Patient Comments: TAKE 1 CAPSULE BY MOUTH ONCE DAILY cholecalciferol (vitamin D3) 25 mcg (1,000 unit) tablet 25 mcg PO BID losartan 50 mg tablet 50 mg PO DAILY Qty: 90 3RF ezetimibe [Zetia] 10 mg tablet 10 mg PO DAILY Qty: 90 3RF metoprolol tartrate 50 mg tablet 50 mg PO BID Qty: 180 3RF furosemide 40 mg tablet See Rx Instructions .ROUTE .COMPLEX Qty: 90 3RF Dose Instruction: TAKE 1 TABLET BY MOUTH DAILY Rx Instructions: TAKE 1 TABLET BY MOUTH DAILY potassium chloride 20 mEq tablet extended release 20 meq PO DAILY Qty: 90 3RF Held Eliquis 5 mg tablet 5 mg PO BID Qty: 60 11RF Hold Instructions: Do not take Eliquis for 3 weeks, then resume previous dose Referrals / Follow Up: Rebecca Dinh MD [Primary Care Provider] - Within 2 Weeks Jethro Pickard MD [Med Staff - Active Staff] - Within 1 Month (Follow-up in Dr. Pickard's office within a month, you will need a refill of your Cordarone) Darryl Pimentel DO [Med Staff - Active Staff] - See Referral Note (Dr. Pimentel's office will contact you regarding a colonoscopy to be scheduled next week, call the office this week if you do not hear from him.) Disposition Disposition (needs filled in before D/C Order can be placed): Home, Self Care 11/05/22 0297<Electronically signed by Harshal Mtz DO>Harshal Mtz DO CC: Dr. Rebecca Dinh MD; Dr. Jarek Crystal MD; Dr. Emma Medina DO; Dr. Liz MD ~ Signed [facility] Work Phone: [phone]) 646-799208-29-2023 Miscellaneous Notes* Telephone Encounter - Lois Reyna LPN - 11/05/2022 3:[address] Walker/[facility] is recommendation Patient has colonoscopy within next couple weeks. Patient is going to be off Eliquist for [address] Walker/[facility] called back he was able to get Patient scheduled with GI Doctor. Lois Reyna LPN [facility]23 Progress note Author Morteza Montoya [facility] November 05, 2022 10:31am Note Date/Time November 05, 2022 10 :31am [facility] Medical Records Department [address] [place] [address] Progress Note - Infect Disease 11/05/22 1030 MR#: [id number] Acct: [id number] Name: DAGOBERTO BAXTER Jr. Rep #:[id number] : 1940 82 From: Morteza saavedra MD PCP: Dr. Rebecca Dinh MD Status:ADM I N Location: [place] [address] Physical Exam Narrative Feeling ok, NIYAH planned, no fever, no n/v/d. 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 TTE showed no veg. No spine tenderness. Also this organism is linked with colon cancer, recommend colonoscopy if possible as an outpatient. Cont ceftriaxone. Will follow 11/05/221030 <Electronically signed by Morteza Montoya MD> Cosigner Signature (if applicable): CC: ~ Signed [facility] Work Phone: 1(509) 537-245008-28-2023 Progress note Author Darryl Pimentel [facility] November 04, 2022 7:50pm Note Date/Time November 04, 2022 7: 46pm [facility] Medical Records Department [address] [place] [address] Progress Note - GI 11/04/221943 MR#: [id number] Acct: [id number] Name: DAGOBERTO BAXTER Jr. Rep #:[id number] : 1940 82 From: Darryl Pimentel DO PCP: Dr. Rebecca Dinh MD Status:ADM I N Location: [place] [address] Subjective Subjective Patient underwent an upper endoscopy for anemia and GI bleeding. He was discovered to have severe ciera esophagitis. He has been tolerating treatment for ciera esophagitis. Objective Data Objective Data Vital Signs: Vital Signs Temp Pulse Resp BP Pulse Ox O2 Del Method 98.4 F 70 15 111/79 95 Room Air 11/04/22 14:59 11/04/22 14:59 11/04/22 14:59 11/04/22 14:59 11/04/22 14:59 11/04/22 15:13 Oxygen Delivery Method Room Air Weight: 185 lb 6.54 oz Body Mass Index (BMI) 28.1 Intake & Output: Intake and Output for Last 24 Hours 11/02/22 11/03/22 11/04/22 23:59 23:59 23:59 Intake Total 2227.66 / 2484.36 634.97 / 1114.97 1685 / 1685 Output Total 475 / 1125 1450 / 1650 200 / 200 Balance 1752.66 / 1359.36 -815.03 / -535.03 1485 / 1485 Lab / Micro Data 11/03/22 06:22 11/03/22 06:22 Micro: Microbiology 11/02/22 01:55 Blood Culture (Wb) - Anticubital Left Bacteria Detection (PCR) - Final Strep not Strep pneumo 11/02/22 01:55 Blood Culture (Wb) - Anticubital Left Blood Culture - Final Streptococcus infantarius infa 11/02/22 02:08 Blood Culture (Wb) - Anticubital Left Blood Culture - Preliminary Alpha Hemolytic Streptococcus 11/02/22 05:40 Mucosa - Nasopharyngeal Respiratory Panel (PCR) - Final 11/02/22 03:50 Nasal Secretion SARS-CoV-2 Antigen (Rapid) - Final 11/01/22 19:45 Stool Stool Occult Blood (DEB) - Final Physical Exam Const alert, oriented x3 and no apparent distress General Appearance: cooperative HEENT normocephalic and head/scalp atraumatic Eyes PERRL and EOMs intact bilaterally Neck supple and No nodes Resp normal air movement and clear to auscultation bilaterally Cardio Negative for regular rate or regular rhythm Heart Sounds: murmur GI soft to palpation, non-tender and non-distended Extremity Extremity Narrative: no spine tenderness General Extremity: Negative for edema Skin no rashes or lesions noted Neuro CN's II-XII intact bilaterally Assessment & Plan Assessment/Plan (1) Ciera esophagitis: (2) Acute on chronic anemia: PLAN: Plan 82 M who presented to the emergency department with multiple complaints to include fatigue, right-sided low back pain, and intermittent abdominal pain. EGD - Patchy, white plaques were found in the middle third of the esophagus and in the lower third of the esophagus. Biopsies were taken with a cold forceps for histology. Verification of patient identification for the specimen was done. Estimated blood loss was minimal. Three 5 mm angiodysplastic lesions with bleeding were found in the stomach. Coagulation for hemostasis using heater probe was successful. Estimated blood loss was minimal. The second portion of the duodenum was normal. Rec: Continue treatment for ciera esophagitis. Trend hemoglobin Charges/Coding Visit Charges Inpatient E&M: 94428 Subs Hosp L3 11/04/221949 <Electronically signed by Darryl Friend DO> Cosigner Signature (if applicable): CC: ~ Signed [facility] Work Phone: 1(444) 903-182708-28-2023 Consult note Author Morteza Montoya [facility] November 04, 2022 2:16pm Note Date/Time November 04, 2022 2: 16pm [facility] Medical Records Department [address] [place] [address] Consultation - Infectious Dx 11/04/22 1410 MR#: [id number] Acct: [id number] Name: DAGOBERTO BAXTER Jr. Rep #:[id number] : 1940 82 From: Morteza saavedra MD PCP: Dr. Rebecca Dinh MD Status:ADM I N Location: [place] [address] Assessment & Plan Assessment/Plan (1) Bacteremia: PLAN: strep bovis family bacteremia with valve replacement, recommend NIYAH. TTE showed no veg. No spine tenderness. Also this organism is linked with colon cancer, recommend colonoscopy if possible. Cont ceftriaxone. Will follow, thank you HPI Consult Data Date of Consult: 11/04/22 HPI Narrative Reason for Consultation: bacteremia HPI Narrative: DAGOBERTO BAXTER, is a 82 M who presented 11/01 with about 5 weeks R lower back pain, some chills, fatigue, intermittent abd pain. Was on trip to [place] aroundtime sx started. No recent abx. Some episodes of afib. Came to ED, now on ceftriaxone, feeling better. Had EGD this AM, started on nystatin. No rash, wounds, cough, SOB. Full ROS performed and neg except as noted above PFSH Medical History Aortic aneurysm Asthma Atherosclerotic heart disease of [place] coronary artery without angina pectoris BPH (benign prostatic hyperplasia) History of echocardiogram (~12/2015) History of left common carotid artery stent placement (~09/27/20) Non-rheumatic mitral regurgitation Non-rheumatic tricuspid valve insufficiency Nonrheumatic mitral (valve) prolapse PARKER (obstructive sleep apnea) Postoperative atrial fibrillation Pure hypercholesterolemia Thoracic aortic aneurysm without rupture Home Medications aspirin 81 mg tablet,delayed release 81 mg PO QDAY 03/11/17 [History Last Taken Unknown] famotidine 20 mg tablet 40 mg PO QHS 06/21/19 [History Last Taken Unknown] ascorbic acid (vitamin C) 1,000 mg tablet 1 gm PO DAILY 06/26/20 [History Last Taken Unknown] cholecalciferol (vitamin D3) 25 mcg (1,000 unit) tablet 25 mcg PO BID 10/13/20 [History Last Taken Unknown] acetaminophen 325 mg tablet 650 mg PO Q6H PRN pain 10/20/20 [History Last Taken Unknown] losartan 50 mg tablet 50 mg PO DAILY #90 tabs 11/28/20 [Rx Last Taken Unknown] amlodipine 10 mg tablet 10 mg PO DAILY #90 tabs 01/17/22 [Rx Last Taken Unknown] cyanocobalamin (vitamin B-12) 1,000 mcg tablet 1,000 mcg PO DAILY 01/17/22 [History Last Taken Unknown] magnesium 200 mg tablet 200 mg PO DAILY 01/17/22 [History Last Taken Unknown] tamsulosin 0.4 mg capsule 0.4 mg PO QHS 01/17/22 [History Last Taken Unknown] zinc acetate 25 mg (zinc) capsule 25 mg PO DAILY 01/17/22 [History Last Taken Unknown] ezetimibe 10 mg tablet (Zetia) 10 mg PO DAILY #90 tabs 01/30/22 [Rx Last Taken Unknown] coenzyme Q10 100 mg capsule 100 mg PO DAILY 07/22/22 [History Last Taken Unknown] metoprolol tartrate 50 mg tablet 50 mg PO BID #180 tabs 09/02/22 [Rx Last Taken Unknown] furosemide 40 mg tablet See Rx Instructions .Route .COMPLEX #90 tabs 10/16/22 [Rx Last Taken Unknown] potassium chloride 20 mEq tablet,extended release 20 meq PO DAILY #90 tabs 10/16/22 [Rx Last Taken Unknown] apixaban 5 mg tablet (Eliquis) 5 mg PO BID #60 tabs 10/28/22 [Rx Last Taken Unknown] Allergy/AdvReac Type Severity Reaction Status Date / Time Mnepnbb-OAT-QbO Reductase AdvReac Severe intolerence Verified 11/01/22 19:05 Inhibitor [Hqwdqrl-Alx-Hdy Reductase Inhibitor] hydrochlorothiazide AdvReac Intermediate unknown Verified 11/01/22 19:05 red yeast rice AdvReac Intermediate unknown Verified 11/01/22 19:05 Family History Mother Hypertension Father CAD (coronary artery disease) Hypertension Grandmother CAD (coronary artery disease) Surgical History H/O hemorrhoidectomy History of aortic valve replacement with bioprosthetic valve (~09/27/20) History of cardiac catheterization (~03/2003) History of tricuspid valve repair (~09/27/20) Hx of ascending aorta replacement (~09/27/20) Social History Smoking Status: Never smoker alcohol intake: never substance use type: does not use caffeine: Yes Type: coffee Number of servings: 5 Physical Exam Const alert, oriented x3 and no apparent distress General Appearance: cooperative HEENT normocephalic and head/scalp atraumatic Eyes PERRL and EOMs intact bilaterally Neck supple and No nodes Resp normal air movement and clear to auscultation bilaterally Cardio Negative for regular rate or regular rhythm Heart Sounds: murmur GI soft to palpation, non-tender and non-distended Extremity Extremity Narrative: no spine tenderness General Extremity: Negative for edema Skin no rashes or lesions noted Neuro CN's II-XII intact bilaterally Lab / Micro Data Attestation: I reviewed the patient's lab results. 11/03/22 06:22 11/03/22 06:22 Micro: Microbiology 11/02/22 01:55 Blood Culture (Wb) - Anticubital Left Bacteria Detection (PCR) - Final Strep not Strep pneumo 11/02/22 01:55 Blood Culture (Wb) - Anticubital Left Blood Culture - Final Streptococcus infantarius infa 11/02/22 02:08 Blood Culture (Wb) - Anticubital Left Blood Culture - Preliminary Alpha Hemolytic Streptococcus 11/04/22 1416 <Electronically signed by Morteza Montoya MD> Cosigner Signature (if applicable): CC: Dr. Rebecca Dinh MD; Dr. Jarek Crystal MD; Dr. Emma Medina DO; Dr. Liz MD~ Signed [facility] Work Phone: 1(591) 838-238208-27-2023 Progress note Author Jarek Crystal [facility] November 03, 2022 9:19am Note Date/Time November 03, 2022 7: 53am [facility] Medical Records Department [address] [place] [address] Progress Note - Hospitalist 11/03/22752 MR#: [id number] Acct: [id number] Name: DAGOBERTO BAXTER JrLa Rep #:[id number] : 1940 82 From: Jarek Crystal MD PCP: Dr. Rebecca Dinh MD Status:ADM I N Location: [place] [address] Reason for Visit Reason for Visit: Diagnoses Anemia, unspecified (11/01/22) Unspecified atrial fibrillation (11/01/22) Hypotension, unspecified (11/01/22) Low back pain, unspecified (11/01/22) Weakness (11/01/22) Other fatigue (11/01/22) Other specified abnormal findings of blood chemistry (11/01/22) half-way (current) use of anticoagulants (11/01/22) Objective Data Objective Data Vital Signs: Vital Signs Temp Pulse Resp BP Pulse Ox O2 Del Method 98.0 F 70 13 92/70 96 Room Air 11/03/22 05:00 11/03/22 06:00 11/03/22 06:00 11/03/22 06:00 11/03/22 06:00 11/03/22 06:00 Oxygen Delivery Method Room Air Weight: 84 kg Body Mass Index (BMI) 28.1 Intake & Output: Intake and Output for Last 24 Hours 11/01/22 11/02/22 11/03/22 23:59 23:59 23:59 Intake Total 130.21 / 146.86 2227.66 / 2484.36 364.97 / 364.97 Output Total 475 / 1125 1450 / 1450 Balance 130.21 / 146.86 1752.66 / 1359.36 -1085.03 / -1085.03 Lab / Micro Data 11/03/22 06:22 11/03/22 06:22 Labs: Laboratory Results - last 24 hr 11/02/22 07:40: Hgb 6.7 L 11/02/22 11:50: Troponin I High Sens 12, Blood Type O POSITIVE, Antibody Screen NEGATIVE, Crossmatch See Detail 11/03/22 06:22: WBC 8.7, RBC 3.08 L, Hgb 8.3 L, Hct 26.5 L, MCV 86.0, MCH 26.9 L, MCHC 31.3 L D, RDW Std Deviation 49.6 H, RDW Coeff of Duyen 15.8 H, Plt Count 186, MPV 8.5, Immature Gran % (Auto) 0.500, Neut % (Auto) 84.7 H, Lymph % (Auto)8.0 L, [place] % (Auto) 5.2, Eos % (Auto) 1.4, Baso % (Auto) 0.2, Absolute Neuts (auto) 7.3, Absolute Lymphs (auto) 0.69 L, Nucleated RBC % 0, Sodium 135 L, Potassium 3.3 L, Chloride 100, Carbon Dioxide 29.0, Anion Gap 6, BUN 17, Creatinine 1.19, Estim Creat Clear Calc 47.90, Est GFR (MDRD) Af Amer 76, Est GFR (MDRD) Non-Af 62, BUN/Creatinine Ratio 14.3, Glucose 109 H, Calcium 8.2 L Micro: Microbiology 11/02/22 01:55 Blood Culture (Wb) - Anticubital Left Bacteria Detection (PCR) - Preliminary Strep not Strep pneumo 11/02/22 01:55 Blood Culture (Wb) - Anticubital Left Blood Culture - Preliminary 11/02/22 02:08 Blood Culture (Wb) - Anticubital Left Blood Culture - Preliminary 11/02/22 05:40 Mucosa - Nasopharyngeal Respiratory Panel (PCR) - Final 11/02/22 03:50 Nasal Secretion SARS-CoV-2 Antigen (Rapid) - Final 11/01/22 19:45 Stool Stool Occult Blood (DEB) - Final Radiography Diagnostic Testing: Radiology Impression Echocardiogram 11/01/22 22:07 Interpretation Summary The left ventricular ejection fraction is 50 %. The left atrium is severely enlarged. The right atrium is moderately enlarged. Moderate (2+) mitral valve insufficiency. Ordering Physician: Emma Medina Referring Physician: FABRIZIO Performed By: Sheila Sahu RCS Physical Exam Narrative GENERAL: cooperative HEENT: Atraumatic; normocephalic EYES; Anicteric, Normal Conjunctiva NECK; supple, normal thyroid, RESPIRATORY: Diminished to auscultation CARDIOVASCULAR: Regular S1 S2, GI: soft, normoactive bowel sounds, : No Renal angle tenderness; EXTREMITIES: No edema, no clubbing, MUSCULOSKELETAL: no muscle wasting NEURO: Awake; no lateralizing signs. SKIN: No Rash PSYCH; Flat affect Assessment & Plan Assessment/Plan (1) Acute hypotension: (2) Atrial fibrillation with RVR: (3) Elevated serum creatinine: PLAN: Plan Patient is an 82-year-old gentleman with history of paroxysmal A-fib on systemicanticoagulation who presented with fatigue, r right flank pain. Patient was found to be in A-fib with RVR. Was also found to be anemic was apparently hypotensive admitted to a monitored bed. Consult placed to GI 1. Symptomatic anemia secondary to suspected chronic blood loss ? Patient was found to be guaiac positive. Systemic anticoagulation with apixaban. Held kept n.p.o. consult placed to GI for possible endoscopic eval. Subsequently monitoring H&H with orders given for transfusion for hemoglobin less than 7 patient did receive 2 unit blood transfusion -11/03/2022; patient underwent EGD this a.m. findings included recommendations by Friend as below Findings - Esophageal plaques were found, suspicious for candidiasis. Biopsied. 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 Treated with a heater probe. - Normal second portion of the duodenum. Recommendations : - Return patient to hospital [facility] for ongoing care. - Resume previous diet. - Use Protonix (pantoprazole) 40 mg PO daily. - Nystatin suspension 100,000 units PO QID for 1 week. - Continue present medications. 2. Paroxysmal A-fib with RVR ? Patient is on metoprolol continue with Eliquis was held given patient's significant anemia 3. Acute hypotension ? Resuscitated with IV fluid 4. Acute renal insufficiency ? Patient is on IV fluid with subsequent monitoring of electrolyte 5. Valvular heart disease ? With history of aortic valve replacement in 2003,, with history of tricuspid valve repair, 6. History of ascending aorta replacement ? On 09/27/2021 at [facility] 7. Carotid artery disease with carotid artery stent ? 2020 at [facility] 8. Paroxysmal A-fib ? Albuterol as needed 9. BPH Patient is on Flomax 10. Obstructive sleep apnea ? Consistent use of CPAP encouraged 11. Essential hypertension ? Patient antihypertensives on hold given his low blood pressure 12. Dyslipidemia ? Patient is on Zetia apparently allergic to statins 13. Vitamin D deficiency ? Patient is on vitamin D supplement 14. GERD ? Patient is on PPI continue 15. DVT prophylaxis ? Chemoprophylaxis contraindicated given patient low hemoglobin level SCD applied Time spent in the patient's overall evaluation,decision-making process, review of diagnostic data, adjustment of management, discussion with other providers, nursing nursing and ancillary staff involved in patient's care documentation, 50 Minutes Charges/Coding Visit Charges Inpatient E&M: 58215 Subs Hosp L3 11/03/22918 <Electronically signed by Jarek Crystal MD> Cosigner Signature (if applicable): CC: ~ Signed [facility] Work Phone: 1(804) 347-956508-27-2023 Consult note Author Darryl Friend [facility] November 03, 2022 8:55am Note Date/Time November 03, 2022 8: 32am [facility] Medical Records Department [address] [place] [address] Consultation - GI 11/02/22826 MR#: [id number] Acct: [id number] Name: DAGOBERTO BAXTER Jr. Rep #:[id number] : 1940 82 From: Darryl Pimentel DO PCP: Dr. Rebecca Dinh MD Status:ADM I N Location: [place] [address]- 1 HPI Consult Data Date of Consult: 11/02/22 HPI Narrative Reason for Consultation: anemia and gi bleed HPI Narrative: DAGOBERTO BAXTER, is a 82 M who presented to the emergency department with intermittent abdominal pain. They were traveling several weeks ago in early september and were in [place]. The day they were supposed to leave it sounds likethe patient developed rigors but he was able to make it home and since that point time he has had fatigue, right-sided low back pain and has had intermittent bouts of A- fib with RVR. He has a history of A-fib with RVR. Per the he experienced it after his heart surgery several years ago. He had been on amiodarone but this was discontinued by cardiology. He had some epigastric pain earlier today but it since resolved. He has had no melena, hematochezia, hematemesis or coffee-ground emesis. And no recent hospitalizations. They said they have called cardiology office several times but have not been able to obtain an appointment. His back pain is off to the right side and the right flank to right upper pelvic area Vital signs on presentation showed temperature of 99.1, heart rate was 160, blood pressure was 118/86, respiratory rate was 18 and oxygen saturations were 96% on room air. He was given some metoprolol on his blood pressures dropped to98/83. It did improve his heart rate some but he was still between 100-120. His CBC shows a normal white count however he does have a left shift with an 88.4% neutrophilia. His hemoglobin was 7.5 and his platelet count was 167,000. His BMP showed normal electrolytes with an elevated BUN at 19 and a serum creatinine of 1.46 which appears to be elevated from his baseline. [facility] Medical History Aortic aneurysm Asthma Atherosclerotic heart disease of [place] coronary artery without angina pectoris BPH (benign prostatic hyperplasia) History of echocardiogram (~12/2015) History of left common carotid artery stent placement (~09/27/20) Non-rheumatic mitral regurgitation Non-rheumatic tricuspid valve insufficiency Nonrheumatic mitral (valve) prolapse PARKER (obstructive sleep apnea) Postoperative atrial fibrillation Pure hypercholesterolemia Thoracic aortic aneurysm without rupture Home Medications aspirin 81 mg tablet,delayed release 81 mg PO QDAY 03/11/17 [History Last Taken Unknown] famotidine 20 mg tablet 40 mg PO QHS 06/21/19 [History Last Taken Unknown] ascorbic acid (vitamin C) 1,000 mg tablet 1 gm PO DAILY 06/26/20 [History Last Taken Unknown] cholecalciferol (vitamin D3) 25 mcg (1,000 unit) tablet 25 mcg PO BID 10/13/20 [History Last Taken Unknown] acetaminophen 325 mg tablet 650 mg PO Q6H PRN pain 10/20/20 [History Last Taken Unknown] losartan 50 mg tablet 50 mg PO DAILY #90 tabs 11/28/20 [Rx Last Taken Unknown] amlodipine 10 mg tablet 10 mg PO DAILY #90 tabs 01/17/22 [Rx Last Taken Unknown] cyanocobalamin (vitamin B-12) 1,000 mcg tablet 1,000 mcg PO DAILY 01/17/22 [History Last Taken Unknown] magnesium 200 mg tablet 200 mg PO DAILY 01/17/22 [History Last Taken Unknown] tamsulosin 0.4 mg capsule 0.4 mg PO QHS 01/17/22 [History Last Taken Unknown] zinc acetate 25 mg (zinc) capsule 25 mg PO DAILY 01/17/22 [History Last Taken Unknown] ezetimibe 10 mg tablet (Zetia) 10 mg PO DAILY #90 tabs 01/30/22 [Rx Last Taken Unknown] coenzyme Q10 100 mg capsule 100 mg PO DAILY 07/22/22 [History Last Taken Unknown] metoprolol tartrate 50 mg tablet 50 mg PO BID #180 tabs 09/02/22 [Rx Last Taken Unknown] furosemide 40 mg tablet See Rx Instructions .Route .COMPLEX #90 tabs 10/16/22 [Rx Last Taken Unknown] potassium chloride 20 mEq tablet,extended release 20 meq PO DAILY #90 tabs 10/16/22 [Rx Last Taken Unknown] apixaban 5 mg tablet (Eliquis) 5 mg PO BID #60 tabs 10/28/22 [Rx Last Taken Unknown] Allergy/AdvReac Type Severity Reaction Status Date / Time Dyzkdal-MGC-HiX Reductase AdvReac Severe intolerence Verified 11/01/22 19:05 Inhibitor [Qsqxzwj-Svm-Apo Reductase Inhibitor] hydrochlorothiazide AdvReac Intermediate unknown Verified 11/01/22 19:05 red yeast rice AdvReac Intermediate unknown Verified 11/01/22 19:05 Family History Mother Hypertension Father CAD (coronary artery disease) Hypertension Grandmother CAD (coronary artery disease) Surgical History H/O hemorrhoidectomy History of aortic valve replacement with bioprosthetic valve (~09/27/20) History of cardiac catheterization (~03/2003) History of tricuspid valve repair (~09/27/20) Hx of ascending aorta replacement (~09/27/20) Social History Smoking Status: Never smoker alcohol intake: never substance use type: does not use caffeine: Yes Type: coffee Number of servings: 5 ROS Constitutional Constitutional: Reports fatigue and weakness; Denies anorexia, change in weight,chills, fever(s), malaise, night sweats or other Eyes Eyes: Denies blurry vision, change in eye color, change in vision, discharge from eye(s), double vision, erythema, eye pain, loss of vision or other ENT HEENT: Denies abnormal hearing, dysphagia, ear pain, epistaxis, headache(s), hearing loss, nasal congestion, nasal discharge, post nasal drip, sinus pressure, sore throat or other Cardiovascular Cardiovascular: Reports rapid heart rate; Denies chest pain, claudication, dyspnea on exertion, edema, lightheadedness, orthopnea, palpitations, paroxysmalnocturnal dyspnea, syncope or other Respiratory/Chest Respiratory/Chest: Reports shortness of breath with exertion Gastrointestinal Gastrointestinal: Reports diarrhea and dyspepsia Genitourinary Genitourinary: Denies burning urination, difficulty urinating, dysuria, hematuria, nocturia, urinary frequency, urinary hesitancy, urinary incontinence,urinary urgency or other Musculoskeletal Musculoskeletal: Reports back pain; Denies arthralgias, joint pain, joint stiffness, joint swelling, myalgias, neck pain or other Neurologic Neurologic: Denies abnormal gait, abnormal speech, confusion, disequilibrium, dizziness, focal weakness, headache(s), numbness, paresthesias, seizure-like activity, seizures, syncope, tingling, tremor(s) or other Psychiatric Psychiatric: Denies anxiety, depression, homicidal ideation, suicidal ideation or other Endocrine Endocrinology: Denies change in body appearance, cold intolerance, excessive sweating, heat intolerance, polydipsia, polyuria or other Allergic/Immunologic Allergic/Immunologic: Denies rhinitis, hives, eczemia, asthma or other Physical Exam Narrative GENERAL: cooperative HEENT: Atraumatic; normocephalic EYES; Anicteric, Normal Conjunctiva NECK; supple, normal thyroid, RESPIRATORY: Diminished to auscultation CARDIOVASCULAR: Regular S1 S2, GI: soft, normoactive bowel sounds, : No Renal angle tenderness; EXTREMITIES: No edema, no clubbing, MUSCULOSKELETAL: no muscle wasting NEURO: Awake; no lateralizing signs. SKIN: No Rash PSYCH; Flat affect Lab / Micro Data 11/03/22 06:22 11/03/22 06:22 Labs: Laboratory Results - last 24 hr 11/02/22 11:50: Troponin I High Sens 12, Blood Type O POSITIVE, Antibody Screen NEGATIVE, Crossmatch See Detail 11/03/22 06:22: WBC 8.7, RBC 3.08 L, Hgb 8.3 L, Hct 26.5 L, MCV 86.0, MCH 26.9 L, MCHC 31.3 L D, RDW Std Deviation 49.6 H, RDW Coeff of Duyen 15.8 H, Plt Count 186, MPV 8.5, Immature Gran % (Auto) 0.500, Neut % (Auto) 84.7 H, Lymph % (Auto)8.0 L, [place] % (Auto) 5.2, Eos % (Auto) 1.4, Baso % (Auto) 0.2, Absolute Neuts (auto) 7.3, Absolute Lymphs (auto) 0.69 L, Nucleated RBC % 0, Sodium 135 L, Potassium 3.3 L, Chloride 100, Carbon Dioxide 29.0, Anion Gap 6, BUN 17, Creatinine 1.19, Estim Creat Clear Calc 47.90, Est GFR (MDRD) Af Amer 76, Est GFR (MDRD) Non-Af 62, BUN/Creatinine Ratio 14.3, Glucose 109 H, Calcium 8.2 L Micro: Microbiology 11/02/22 01:55 Blood Culture (Wb) - Anticubital Left Bacteria Detection (PCR) - Preliminary Strep not Strep pneumo 11/02/22 01:55 Blood Culture (Wb) - Anticubital Left Blood Culture - Preliminary 11/02/22 02:08 Blood Culture (Wb) - Anticubital Left Blood Culture - Preliminary 11/02/22 05:40 Mucosa - Nasopharyngeal Respiratory Panel (PCR) - Final 11/02/22 03:50 Nasal Secretion SARS-CoV-2 Antigen (Rapid) - Final Radiology Impression Echocardiogram 11/01/22 22:07 Interpretation Summary The left ventricular ejection fraction is 50 %. The left atrium is severely enlarged. The right atrium is moderately enlarged. Moderate (2+) mitral valve insufficiency. Ordering Physician: Emma Medina Referring Physician: FABRIZIO Performed By: Sheila Sahu RCS Assessment & Plan Assessment/Plan (1) Acute on chronic anemia: (2) Acute hypotension: (3) Atrial fibrillation with RVR: (4) Acute right-sided low back pain: (5) Anticoagulant long-term use: (6) Elevated serum creatinine: (7) Weakness: (8) Fatigue: QUALIFIERS: Fatigue type: chronic, unspecified Qualified Code(s):R53.82 - Chronic fatigue, unspecified PLAN: Plan Acute on chronic anemia -Baseline hemoglobin appears to be running between 9 and 10 -Was 9.7 on 10/05/2022 but now 7.5 -Check iron studies -Guaiac stool pending -Check liver panel for signs of hemolysis -Patient has been holding his diuretics so it theoretically could be dilutional -We will utilize IV PPI twice daily dosing for now and if guaiac positive will consult GI and hold apixaban -Check every 6 hours H&H -Recommend to hold apixaban -He should undergo an upper endoscopy to evaluate his upper GI tract due to his increased BUN to creatinine ratio and decrease in hemoglobin with the need for anticoagulation due to his recurrent paroxysmal atrial fibrillation. He was explained alternatives, risk, benefits include not withstanding bleeding,infection, sepsis, perforation, need for emergent surgery . Have an ASA of3. 11/03/22 0855 <Electronically signed by Darryl Friend > Cosigner Signature (if applicable): CC: Dr. Rebecca Dinh MD; Dr. Emma Medina DO~ Signed [facility] Work Phone: [phone]) 765-862108-27-2023 Procedure [facility] 11-03-2022 Procedure [facility]08-26-2023 Progress note Author Jarek Crystal [facility] November 02, 2022 11:46am Note Date/Time November 02, 2022 8: 35am [facility] Medical Records Department [address] [place] [address] Progress Note - Hospitalist 11/02/22830 MR#: [id number] Acct: [id number] Name: DAGOBERTO BAXTER JrLa Rep #:[id number] : 1940 82 From: Jarek Cyrstal MD PCP: Dr. 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 Patient was found to be in A-fib with RVR. Was also found to be anemic was apparently hypotensive admitted to a monitored bed. Consult placed to GI Objective Data Objective Data Vital Signs: Vital Signs Temp Pulse Resp BP Pulse Ox O2 Del Method 99.4 F H 74 20 H 93/63 94 Room Air 11/02/22 04:33 11/02/22 06:00 11/02/22 06:00 11/02/22 06:00 11/02/22 06:00 11/02/22 06:00 Oxygen Delivery Method Room Air Weight: 84.6 kg Body Mass Index (BMI) 28.3 Intake & Output: Intake and Output for Last 24 Hours 10/31/22 11/01/22 11/02/22 23:59 23:59 23:59 Intake Total 130.21 / 146.86 301.16 / 301.16 Output Total 150 / 150 Balance 130.21 / 146.86 151.16 / 151.16 Lab / Micro Data 11/02/22 07:40 11/02/22 01:55 Labs: Laboratory Results - last 24 hr 11/01/22 19:00: WBC 6.1, RBC 2.80 L, Hgb 7.5 L, Hct 24.8 L, MCV 88.6, MCH 26.8 L, MCHC 30.2 L, RDW Std Deviation 52.3 H, RDW Coeff of Duyen 16.0 H, Plt Count 167,MPV 8.2, Immature Gran % (Auto) 0.500, Neut % (Auto) 88.4 H, Lymph % (Auto) 6.1 L, [place] % (Auto) 4.1, Eos % (Auto) 0.7, Baso % (Auto) 0.2, Absolute Neuts (auto)5.4, Absolute Lymphs (auto) 0.37 L, Nucleated RBC % 0, Differential Comment SCANNED, Sodium 139, Potassium 4.3, Chloride 106, Carbon Dioxide 29.0, Anion Gap4 L, BUN 19 H, Creatinine 1.46 H, Estim Creat Clear Calc 39.04, Est GFR (MDRD) Af Amer 60, Est GFR (MDRD) Non-Af 49 L, BUN/Creatinine Ratio 13.0, Glucose 142 H, Calcium 9.0, Iron 22 L, TIBC 205 L, Iron Saturation 10.7 L, Troponin I High Sens 14 11/01/22 21:58: Hgb 7.3 L, ESR 19, Total Bilirubin 0.60, Direct Bilirubin 0.22, AST 21, ALT 23, Alkaline Phosphatase 85, Troponin I High Sens 15, C-React Prot Ext Range 77.40 H, Total Protein 7.5, Albumin 2.9 L, Globulin 4.6 H, Procalcitonin 0.35 H 11/02/22 01:55: WBC 7.6, RBC 2.66 L, Hgb 7.0 L, Hct 23.7 L, MCV 89.1, MCH 26.3 L, MCHC 29.5 L, RDW Std Deviation 52.9 H, RDW Coeff of Duyen 16.2 H, Plt Count 193,MPV 8.9, Immature Gran % (Auto) 0.800, Neut % (Auto) 87.2 H, Lymph % (Auto) 6.7 L, [place] % (Auto) 4.4, Eos % (Auto) 0.8, Baso % (Auto) 0.1, Absolute Neuts (auto)6.6, Absolute Lymphs (auto) 0.51 L, Nucleated RBC % 0, Differential Comment SCANNED, Sodium 138, Potassium 3.9, Chloride 104, Carbon Dioxide 29.0, Anion Gap5, BUN 19 H, Creatinine 1.39 H, Estim Creat Clear Calc 41.01, Est GFR (MDRD) Af Amer 63, Est GFR (MDRD) Non-Af 52 L, BUN/Creatinine Ratio 13.7, Glucose 112 H, Calcium 8.8, Phosphorus 2.9, Magnesium 2.3, Total Bilirubin 0.70, AST 20, ALT 23, Alkaline Phosphatase 82, Troponin I High Sens 16, Total Protein 7.5, Albumin2.9 L, Globulin 4.6 H, Albumin/Globulin Ratio 0.6 L, TSH 0.78 11/02/22 05:20: Urine Color Yellow, Urine Clarity Clear, Urine pH 6.0, Ur Specific [place] 1.010, Urine Protein Negative, Urine Glucose (UA) Normal, Urine Ketones Negative, Urine Occult Blood Negative, Urine Nitrite Negative, Urine Bilirubin Negative, Urine Urobilinogen Normal, Ur Leukocyte Esterase Negative, Urine RBC 0 SEEN, Urine WBC 0 SEEN, Ur Squamous Epith Cells 0 SEEN, Urine Bacteria 0 SEEN, Urine Mucus 0 SEEN 11/02/22 07:40: Hgb 6.7 L Micro: Microbiology 11/02/22 03:50 Nasal Secretion SARS-CoV-2 Antigen (Rapid) - Final 11/01/22 19:45 Stool Stool Occult Blood (DEB) - Final Radiography Diagnostic Testing: Radiology Impression Chest X-Ray 11/01/22 19:04 IMPRESSION: No active disease. Electronically Signed: Rafiq Barrow MD at 19:14 EDT , Abdomen/Pelvis CT 11/01/22 20:04 IMPRESSION: 1. No renal or ureteral stone. 2. Large right renal cyst. 3. Sigmoid diverticulosis without diverticulitis. Electronically Signed: Rafiq Barrow MD at 21:20 EDT , Physical Exam Narrative GENERAL: cooperative HEENT: Atraumatic; normocephalic EYES; Anicteric, Normal Conjunctiva NECK; supple, normal thyroid, RESPIRATORY: Diminished to auscultation CARDIOVASCULAR: Regular S1 S2, GI: soft, normoactive bowel sounds, : No Renal angle tenderness; EXTREMITIES: No edema, no clubbing, MUSCULOSKELETAL: no muscle wasting NEURO: Awake; no lateralizing signs. SKIN: No Rash PSYCH; Flat affect Assessment & Plan Assessment/Plan (1) Acute hypotension: (2) Atrial fibrillation with RVR: (3) Elevated serum creatinine: PLAN: Plan Patient is an 82-year-old gentleman with history of paroxysmal A-fib on systemicanticoagulation who presented with fatigue, r right flank pain. Patient was found to be in A-fib with RVR. Was also found to be anemic was apparently hypotensive admitted to a monitored bed. Consult placed to GI 1. Symptomatic anemia secondary to suspected chronic blood loss ? Patient was found to be guaiac positive. Systemic anticoagulation with apixaban. Held kept n.p.o. consult placed to GI for possible endoscopic eval. Subsequently monitoring H&H with orders given for transfusion for hemoglobin less than 7 patient did receive 2 unit blood transfusion 2. Paroxysmal A-fib with RVR ? Patient is on metoprolol continue with Eliquis was held given patient's significant anemia 3. Acute hypotension ? Resuscitated with IV fluid 4. Acute renal insufficiency ? Patient is on IV fluid with subsequent monitoring of electrolyte 5. Valvular heart disease ? With history of aortic valve replacement in 2003,, with history of tricuspid valve repair, 6. History of ascending aorta replacement ? On 09/27/2021 at [facility] 7. Carotid artery disease with carotid artery stent ? 2020 at [facility] 8. Paroxysmal A-fib ? Albuterol as needed 9. BPH Patient is on Flomax 10. Obstructive sleep apnea ? Consistent use of CPAP encouraged 11. Essential hypertension ? Patient antihypertensives on hold given his low blood pressure 12. Dyslipidemia ? Patient is on Zetia apparently allergic to statins 13. Vitamin D deficiency ? Patient is on vitamin D supplement 14. GERD ? Patient is on PPI continue 15. DVT prophylaxis ? Chemoprophylaxis contraindicated given patient low hemoglobin level SCD is encouraged Time spent in the patient's overall evaluation,decision-making process, review of diagnostic data, adjustment of management, discussion with other providers, nursing nursing and ancillary staff involved in patient's care documentation, 50 Minutes Charges/Coding Visit Charges Inpatient E&M: 01127 Subs Hosp L3 11/02/22 1146 <Electronically signed by Jarek Crystal MD> Cosigner Signature (if applicable): CC: ~ Signed [facility] Work Phone: 1(480) 120-893208-26-2023 Progress note Author Emma Medina [facility] November 02, 2022 3:37am Note Date/Time November 02, 2022 3: 37am [facility] Medical Records Department [address] [place] [id number] Progress Note - Hospitalist 11/02/22334 MR#: [id number] Acct: [id number] Name: DAGOBERTO BAXTER Jr. Rep #:[id number] : 1940 82 From: Emma Medina DO PCP: Dr. Rebecca Dinh MD Status:ADM I N Location: [place] [address] Hospitalist Note Negative Hemoccult however hemoglobin has dropped to 7 this morning. We will hold anticoagulation for now and place SCDs. Repeat hemoglobin at 7 AM for stability. Consult GI for consideration of EGD. N.p.o. I did obtain liver functions to rule out hemolysis and patient has normal bilirubin 11/02/22336 <Electronically signed by Emma Medina DO> Cosigner Signature (if applicable): CC: ~ Signed [facility] Work Phone: 1(276) 977-451008-25-2023 History and physical note Author Emma Medina [facility] November 01, 2022 9:30pm Note Date/Time November 01, 2022 8: 52pm [facility] Medical Records Department [address] [place] [address] H&P Exam - Hospitalist 11/01/221999 MR#: [id number] Acct: [id number] Name: DAGOBERTO BAXTER Jr. Rep #:[id number] : 1940 82 From: Emma Medina DO PCP: Dr. Rebecca Dinh MD Status:ADM I N Location: [place] [address] HPI - General General Date of Admission: 11/01/22 Date of Service: 11/01/22 Chief Complaint: Fatigue/right-sided low back pain/intermittent abdominal pain HPI Narrative DAGOBERTO BAXTER, is a 82 M who presented to the emergency department with multiple complaints to include fatigue, right-sided low back pain, and intermittent abdominal pain. His presents with him and talks over him for a significant amount of the history. Evidently they were traveling several weeks ago in early to mid September and were in [place]. The day they were supposed to leave it sounds like the patient developed rigors but he was able to make it home and since that point time he has had fatigue, right-sided low back pain andhas had intermittent bouts of A-fib with RVR. He has a history of A-fib with RVR. Per the he experienced it after his heart surgery several years ago. He had been on amiodarone but this was discontinued by cardiology. Since that point time as of recently he is had intermittent RVR with heart rates as high as150 at times. Due to his symptoms they stopped his diuretic 2 days ago. He hashad some increased lower extremity swelling but denied any orthopnea or worsening shortness of breath. He had some epigastric pain earlier today but itsince resolved. He has had no melena, hematochezia, hematemesis or coffee- ground emesis. And no recent hospitalizations. They said they have called cardiology office several times but have not been able to obtain an appointment. His back pain is off to the right side and the right flank to right upper pelvic area Vital signs on presentation showed temperature of 99.1, heart rate was 160, blood pressure was 118/86, respiratory rate was 18 and oxygen saturations were 96% on room air. He was given some metoprolol on his blood pressures dropped to98/83. It did improve his heart rate some but he was still between 100-120. His CBC shows a normal white count however he does have a left shift with an 88.4% neutrophilia. His hemoglobin was 7.5 and his platelet count was 167,000. His BMP showed normal electrolytes with an elevated BUN at 19 and a serum creatinine of 1.46 which appears to be elevated from his baseline. He presentedfor low back pain about a month ago was 1.25 we have no data prior to that. Hisglucose was mildly elevated 142. His calcium was normal and his troponin was 14. Chest x-ray showed no active disease. EKG was A-fib with RVR and no signs of acute ischemia. In the emergency department he was initially given metoprolol which dropped his blood pressure some and minimally helped his heart rates. I did request an amiodarone bolus at 150 mg to be given and ER physician agreed. Given his recent fatigue issues and rigors he had back in September we will check sed rate CRP and a procalcitonin. If these are markedly abnormal I will further pursue infectious work-up given the fact that he does have a left shift on his labs. [facility] Medical History Aortic aneurysm Asthma Atherosclerotic heart disease of [place] coronary artery without angina pectoris BPH (benign prostatic hyperplasia) History of echocardiogram (~12/2015) History of left common carotid artery stent placement (~09/27/20) Non-rheumatic mitral regurgitation Non-rheumatic tricuspid valve insufficiency Nonrheumatic mitral (valve) prolapse PARKER (obstructive sleep apnea) Postoperative atrial fibrillation Pure hypercholesterolemia Thoracic aortic aneurysm without rupture Home Medications aspirin 81 mg tablet,delayed release 81 mg PO QDAY 03/11/17 [History Last Taken Unknown] famotidine 20 mg tablet 40 mg PO QHS 06/21/19 [History Last Taken Unknown] ascorbic acid (vitamin C) 1,000 mg tablet 1 gm PO DAILY 06/26/20 [History Last Taken Unknown] cholecalciferol (vitamin D3) 25 mcg (1,000 unit) tablet 25 mcg PO BID 10/13/20 [History Last Taken Unknown] acetaminophen 325 mg tablet 650 mg PO Q6H PRN pain 10/20/20 [History Last Taken Unknown] losartan 50 mg tablet 50 mg PO DAILY #90 tabs 11/28/20 [Rx Last Taken Unknown] amlodipine 10 mg tablet 10 mg PO DAILY #90 tabs 01/17/22 [Rx Last Taken Unknown] cyanocobalamin (vitamin B-12) 1,000 mcg tablet 1,000 mcg PO DAILY 01/17/22 [History Last Taken Unknown] magnesium 200 mg tablet 200 mg PO DAILY 01/17/22 [History Last Taken Unknown] tamsulosin 0.4 mg capsule 0.4 mg PO QHS 01/17/22 [History Last Taken Unknown] zinc acetate 25 mg (zinc) capsule 25 mg PO DAILY 01/17/22 [History Last Taken Unknown] ezetimibe 10 mg tablet (Zetia) 10 mg PO DAILY #90 tabs 01/30/22 [Rx Last Taken Unknown] coenzyme Q10 100 mg capsule 100 mg PO DAILY 07/22/22 [History Last Taken Unknown] metoprolol tartrate 50 mg tablet 50 mg PO BID #180 tabs 09/02/22 [Rx Last Taken Unknown] furosemide 40 mg tablet See Rx Instructions .Route .COMPLEX #90 tabs 10/16/22 [Rx Last Taken Unknown] potassium chloride 20 mEq tablet,extended release 20 meq PO DAILY #90 tabs 10/16/22 [Rx Last Taken Unknown] apixaban 5 mg tablet (Eliquis) 5 mg PO BID #60 tabs 10/28/22 [Rx Last Taken Unknown] Allergy/AdvReac Type Severity Reaction Status Date / Time Abswtfa-ZZC-RzJ Reductase AdvReac Severe intolerence Verified 11/01/22 19:05 Inhibitor [Mhahvbx-Hbj-Ujg Reductase Inhibitor] hydrochlorothiazide AdvReac Intermediate unknown Verified 11/01/22 19:05 red yeast rice AdvReac Intermediate unknown Verified 11/01/22 19:05 Family History Mother Hypertension Father CAD (coronary artery disease) Hypertension Grandmother CAD (coronary artery disease) Surgical History H/O hemorrhoidectomy History of aortic valve replacement with bioprosthetic valve (~09/27/20) History of cardiac catheterization (~03/2003) History of tricuspid valve repair (~09/27/20) Hx of ascending aorta replacement (~09/27/20) Social History Smoking Status: Never smoker alcohol intake: never substance use type: does not use caffeine: Yes Type: coffee Number of servings: 5 ROS Constitutional Constitutional: Reports fatigue and weakness; Denies anorexia, change in weight,chills, fever(s), malaise, night sweats or other Eyes Eyes: Denies blurry vision, change in eye color, change in vision, discharge from eye(s), double vision, erythema, eye pain, loss of vision or other ENT HEENT: Denies abnormal hearing, dysphagia, ear pain, epistaxis, headache(s), hearing loss, nasal congestion, nasal discharge, post nasal drip, sinus pressure, sore throat or other Cardiovascular Cardiovascular: Reports rapid heart rate; Denies chest pain, claudication, dyspnea on exertion, edema, lightheadedness, orthopnea, palpitations, paroxysmalnocturnal dyspnea, syncope or other Respiratory/Chest Respiratory/Chest: Reports shortness of breath with exertion Gastrointestinal Gastrointestinal: Reports diarrhea and dyspepsia Genitourinary Genitourinary: Denies burning urination, difficulty urinating, dysuria, hematuria, nocturia, urinary frequency, urinary hesitancy, urinary incontinence,urinary urgency or other Musculoskeletal Musculoskeletal: Reports back pain; Denies arthralgias, joint pain, joint stiffness, joint swelling, myalgias, neck pain or other Neurologic Neurologic: Denies abnormal gait, abnormal speech, confusion, disequilibrium, dizziness, focal weakness, headache(s), numbness, paresthesias, seizure-like activity, seizures, syncope, tingling, tremor(s) or other Psychiatric Psychiatric: Denies anxiety, depression, homicidal ideation, suicidal ideation or other Endocrine Endocrinology: Denies change in body appearance, cold intolerance, excessive sweating, heat intolerance, polydipsia, polyuria or other Allergic/Immunologic Allergic/Immunologic: Denies rhinitis, hives, eczemia, asthma or other Vital Signs Vital Signs Vital Signs: 11/01/22 18:54 11/01/22 19:01 11/01/22 18:59 Temperature 99.1 F Temperature Source Oral Pulse Rate 160 H 146 H Respiratory Rate 18 21 H Respiratory Effort Short of Breath Respiratory Pattern Tachypnea Blood Pressure 118/86 H 110/83 H Blood Pressure Mean 96 92 Pulse Ox 96 97 Oxygen Delivery Method Room Air Room Air 11/01/22 19:20 11/01/22 19:28 11/01/22 19:29 Temperature Temperature Source Pulse Rate 125 H 115 H 106 H Respiratory Rate 20 H 15 19 H Respiratory Effort Respiratory Pattern Blood Pressure 98/83 H 95/79 102/80 Blood Pressure Mean 88 84 87 Pulse Ox 95 96 95 Oxygen Delivery Method Room Air Room Air 11/01/22 19:34 11/01/22 19:35 11/01/22 19:40 Temperature Temperature Source Pulse Rate 104 H 111 H 101 H Respiratory Rate 19 H 15 17 Respiratory Effort Respiratory Pattern Blood Pressure 92/68 93/70 Blood Pressure Mean 78 79 Pulse Ox Oxygen Delivery Method 11/01/22 19:45 Temperature Temperature Source Pulse Rate 125 H Respiratory Rate 17 Respiratory Effort Respiratory Pattern Blood Pressure 102/76 Blood Pressure Mean 85 Pulse Ox 100 Oxygen Delivery Method Weight Weight: 86.636 kg Body Mass Index (BMI) 29.0 Physical Exam Const alert, oriented x3, no apparent distress and well nourished Constitutional Narrative: Overweight, elderly, white male, lying in bed, at bedside, she does significant amount of talking for him, patient appears fatigued but nontoxic andcurrently comfortable General Appearance: cooperative HEENT normocephalic, head/scalp atraumatic, hearing grossly normal bilaterally and moist oral mucous membranes HEENT Narrative: Mallampati 3, no thrush Eyes PERRL and EOMs intact bilaterally; Negative for conjunctivae normal Eyes Narrative: Conjunctiva are pale bilaterally, no scleral icterus Neck no lymphadenopathy, supple and no JVD Resp normal respiratory effort, no retractions, no use of accessory muscles and clearto auscultation bilaterally Auscultation: Negative for rales, rhonchi or wheezes Cardio S1 normal heart sound, S2 normal heart sound, no murmurs, no rub, no gallops andno clicks; Negative for regular rate or regular rhythm Cardio Narrative: Irregular irregular rhythm with tachycardia, 2 out of 6 systolic murmur loudest at left lower sternal border GI normal to inspection, nondistended, normoactive bowel sounds, soft to palpation and non-tender Extremity Extremity Narrative: No clubbing or cyanosis, bilateral lower extremity pitting edema that is about 2+ Neuro oriented x3, CN's II-XII intact bilaterally, moves all extremities and no focal motor deficits Neuro Narrative: Significant generalized weakness noted Speech: speech normal Psych affect normal Psych Narrative: Very pleasant, interacts appropriately Results Medical Records Data Attestation: I reviewed the patient's medical records Lab / Micro Data 11/01/22 19:00 11/01/22 19:00 Labs: Laboratory Results - last 24 hr 11/01/22 19:00: WBC 6.1, RBC 2.80 L, Hgb 7.5 L, Hct 24.8 L, MCV 88.6, MCH 26.8 L, MCHC 30.2 L, RDW Std Deviation 52.3 H, RDW Coeff of Duyen 16.0 H, Plt Count 167,MPV 8.2, Immature Gran % (Auto) 0.500, Neut % (Auto) 88.4 H, Lymph % (Auto) 6.1 L, Crittenden % (Auto) 4.1, Eos % (Auto) 0.7, Baso % (Auto) 0.2, Absolute Neuts (auto)5.4, Absolute Lymphs (auto) 0.37 L, Nucleated RBC % 0, Differential Comment SCANNED, Sodium 139, Potassium 4.3, Chloride 106, Carbon Dioxide 29.0, Anion Gap4 L, BUN 19 H, Creatinine 1.46 H, Estim Creat Clear Calc 39.04, Est GFR (MDRD) Af Amer 60, Est GFR (MDRD) Non-Af 49 L, BUN/Creatinine Ratio 13.0, Glucose 142 H, Calcium 9.0, Troponin I High Sens 14 Micro: Microbiology 11/01/22 19:45 Stool Stool Occult Blood (DEB) - Final Radiology Impression Chest X-Ray 11/01/22 19:04 IMPRESSION: No active disease. Electronically Signed: Rafiq Barrow MD at 19:14 EDT , Assessment & Plan Assessment/Plan (1) Acute on chronic anemia: (2) Acute hypotension: (3) Atrial fibrillation with RVR: (4) Acute right-sided low back pain: (5) Anticoagulant long-term use: (6) Elevated serum creatinine: (7) Weakness: (8) Fatigue: PLAN: Plan A-fib with RVR -This is paroxysmal in nature and he was seen in the emergency department at [facility] on 09/22/2022 by author's agent who recommended continuing his metoprolol and Eliquis and to obtain an outpatient echocardiogram -This may be the etiology of his fatigue and weakness -Continue home metoprolol with hold parameters for blood pressure -Amiodarone bolus given the emergency department and will continue drip -Would transition to oral amiodarone 200 mg p.o. twice daily tomorrow for 7 days then 200 daily with outpatient cardiology follow-up after discharge -Check TSH -Cycle cardiac enzymes -Check echocardiogram -We will continue anticoagulation for now while further work-up with regards to his anemia is pending Acute hypotension -Blood pressures are somewhat lower than they run at baseline -Baseline appears to be between 110 and 120 systolic with current blood pressures in the 90s systolic -Hold home losartan -Continue home metoprolol with hold parameters given A-fib with RVR -Continue to monitor -Check TSH -Check echocardiogram Elevated serum creatinine -Etiology is not clear at this time -May be cardiorenal as patient has not taken his Lasix in the last 2 days however I cannot give him Lasix with his blood pressures being borderline right now and therefore we are holding it -May also be related to decreased perfusion with blood pressures being lower than normal -We will try to address the above issues and repeat BMP in the a.m. -Hold home losartan and diuretics for now I will Right-sided back pain -No radicular symptoms -Focal on the right side of the low back -CT of the abdomen pelvis is pending to rule out retroperitoneal bleed with acute on chronic anemia -X-ray of the lumbar spine from 10/05/2022 suggested mild levoscoliosis with degenerative disc disease -Patient states he is pain free at rest and pain only occurs on exertion -Check sed rate and CRP -May need outpatient MRI depending on findings and other work-up Acute on chronic anemia -Baseline hemoglobin appears to be running between 9 and 10 -Was 9.7 on 10/05/2022 but now 7.5 -Check iron studies -Guaiac stool pending -Check liver panel for signs of hemolysis -Patient has been holding his diuretics so it theoretically could be dilutional -We will utilize IV PPI twice daily dosing for now and if guaiac positive will consult GI and hold apixaban -Check every 6 hours H&H -We will continue apixaban for now however there is a drop in his hemoglobin further or if he is guaiac positive we will have to discontinue and start SCDs -Depending on follow-up studies GI consultation may be required Fatigue/generalized weakness -Etiology is unclear -May be related to his lower blood pressures in A-fib however its been ongoing for several months now -Check sed rate and CRP -We will check procalcitonin -If any abnormalities consider blood cultures because he does have a left shift with no elevated white count and this appears to to have been present at the [facility] September a month ago as well--> his also reported that it he had shaking prior to coming back from [place] and I wonder if these were rigors -We will check History of aortic valve disease status post aortic valve replacement in 2003 -Echo echo -Most recent echo done a year ago at [facility] Main campus was stable -Patient did have postoperative atrial fibrillation that required amiodarone that he took for 2 to 3 months postoperatively Mitral valve insufficiency -Recheck echocardiogram -Previously was 2+ History of ascending aorta replacement -37x10 [place] Tag Device into the arch and to cover the Lt. subclavian origin 09/27/20@ [facility] -Continue outpatient follow-up History of tricuspid valve repair -#28mm MC3 09/27/20 @ [facility] Left common carotid artery stenosis -Status post stent in 2020 at [facility] History of asthma -As needed albuterol BPH -On Flomax PARKER -Continue home CPAP Hyperlipidemia -Continue home Zetia -Patient has statin allergy with myalgias Vitamin D deficiency -Continue cholecalciferol GERD -Hold famotidine and use Protonix as noted above DVT prophylaxis -Continue apixaban for now if need to hold we will start SCDs CODE STATUS -Full code as per discussion on admission Charges/Coding Visit Charges Inpatient E&M: 08282 Init Hosp L3 11/01/222129 <Electronically signed by Emma Medina DO> Cosigner Signature (if applicable): CC: Dr. Rebecca Dinh MD; Dr. Emma Medina DO~ Signed [facility] Work Phone: [phone] Discharge summary Author Dustin Jeffery [facility] November 01, 2022 8:15pm Note Date/Time November 01, 2022 7: 04pm [facility] Medical Records Department [address] [place] [address] Emergency Department Summary 11/01/22 MR#: [id number] Acct: [id number] Name: DAGOBERTO BAXTER Jr. Rep #:[id number] : 1940 82 From: Dutsin Jeffery MD PCP: Dr. Rebecca Dinh MD Status:REG E R Location: ED ADDENDUM by Dr. Dustin Jeffery MD on 11/01/22 at 2014 IV bolus of amiodarone was ordered after discussion with hospitalist. 11/01/222014<Electronically signed by Dustin Jeffery MD> Cosigner Signature (if applicable): cc: Dr. Rebecca Dinh MD ~* Signed HPI History of Present Illness Chief Complaint: General Illness Detail of Chief Complaint: Right lower back pain, intermittent abdominal pain Informant: patient and spouse/S.O. Onset/Context/Timing Onset: Days Context: Sudden Onset Timing: Intermittent Quality: Pain Location: Right lower back multiple areas abdomen Current Severity: Mild Maximum Severity: Moderate Worsened by: Back pain is made worse with movement abdominal pain nothing Relieved by: Nothing for both Associated Symptoms Associated Symptoms: Detailed HPI narrative Narrative Narrative: Patient is an 82-year-old male with history of atherosclerotic heart disease, atrial fibrillation paroxysmal, stent left common carotid artery, ascending aortic graft, aortic valve replacement, pure hypercholesterolemia and hypertension. Patient is apixaban for his paroxysmal atrial fibrillation. Patient was unaware that he was in A-fib. Rate varies between 130-160. He doesreport mild shortness of breath with activity. He presently is not short of breath. He states he has not taken his diuretic last couple of days. He deniesorthopnea. He denies PND. He had one episode of chest pain that was brief in duration i.e. less than 1 minute. Pain was located in the middle of his chest and described as sharp. He denies history of VTE. He denies leg vein distention, legs discoloration or pain. Patient denies black or maroon-colored stool. Patient denies orthostatic symptoms. Prior similar symptoms: No Recent Illness/Hospitalization: No PFSH [facility] Medical History Aortic aneurysm Asthma Atherosclerotic heart disease of [place] coronary artery without angina pectoris BPH (benign prostatic hyperplasia) History of echocardiogram (~12/2015) History of left common carotid artery stent placement (~09/27/20) Non-rheumatic mitral regurgitation Non-rheumatic tricuspid valve insufficiency Nonrheumatic mitral (valve) prolapse PARKER (obstructive sleep apnea) Postoperative atrial fibrillation Pure hypercholesterolemia Thoracic aortic aneurysm without rupture Home Medications aspirin 81 mg tablet,delayed release 81 mg PO QDAY 03/11/17 [History Last Taken Unknown] famotidine 20 mg tablet 40 mg PO QHS 06/21/19 [History Last Taken Unknown] ascorbic acid (vitamin C) 1,000 mg tablet 1 gm PO DAILY 06/26/20 [History Last Taken Unknown] cholecalciferol (vitamin D3) 25 mcg (1,000 unit) tablet 25 mcg PO BID 10/13/20 [History Last Taken Unknown] acetaminophen 325 mg tablet 650 mg PO Q6H PRN pain 10/20/20 [History Last Taken Unknown] losartan 50 mg tablet 50 mg PO DAILY #90 tabs 11/28/20 [Rx Last Taken Unknown] amlodipine 10 mg tablet 10 mg PO DAILY #90 tabs 01/17/22 [Rx Last Taken Unknown] cyanocobalamin (vitamin B-12) 1,000 mcg tablet 1,000 mcg PO DAILY 01/17/22 [History Last Taken Unknown] magnesium 200 mg tablet 200 mg PO DAILY 01/17/22 [History Last Taken Unknown] tamsulosin 0.4 mg capsule 0.4 mg PO QHS 01/17/22 [History Last Taken Unknown] zinc acetate 25 mg (zinc) capsule 25 mg PO DAILY 01/17/22 [History Last Taken Unknown] ezetimibe 10 mg tablet (Zetia) 10 mg PO DAILY #90 tabs 01/30/22 [Rx Last Taken Unknown] coenzyme Q10 100 mg capsule 100 mg PO DAILY 07/22/22 [History Last Taken Unknown] metoprolol tartrate 50 mg tablet 50 mg PO BID #180 tabs 09/02/22 [Rx Last Taken Unknown] furosemide 40 mg tablet See Rx Instructions .Route .COMPLEX #90 tabs 10/16/22 [Rx Last Taken Unknown] potassium chloride 20 mEq tablet,extended release 20 meq PO DAILY #90 tabs 08/09/23 [Rx Last Taken Unknown] apixaban 5 mg tablet (Eliquis) 5 mg PO BID #60 tabs 10/28/22 [Rx Last Taken Unknown] Allergy/AdvReac Type Severity Reaction Status Date / Time [id number]-KsL Reductase AdvReac Severe intolerence Verified 11/01/22 19:05 Inhibitor [Aoktrxa-Czs-Lpu Reductase Inhibitor] hydrochlorothiazide AdvReac Intermediate unknown Verified 11/01/22 19:05 red yeast rice AdvReac Intermediate unknown Verified 11/01/22 19:05 Family History Mother Hypertension Father CAD (coronary artery disease) Hypertension Grandmother CAD (coronary artery disease) Surgical History H/O hemorrhoidectomy History of aortic valve replacement with bioprosthetic valve (~09/27/20) History of cardiac catheterization (~03/2003) History of tricuspid valve repair (~09/27/20) Hx of ascending aorta replacement (~09/27/20) Social History Smoking Status: Never smoker alcohol intake: never substance use type: does not use caffeine: Yes Type: coffee Number of servings: 5 ROS ROS ED Constitutional Constitutional ED: Denies chills, fever(s), subjective, sweats or weight loss Eyes Eyes: Denies blurry vision, change in vision or diplopia ENT ENT ED: Denies ear pain, rhinorrhea or sore throat Cardiovascular Cardiovascular: Reports chest pain; Denies orthopnea, palpitations, paroxysmal nocturnal dyspnea or racing heartbeat Respiratory/Chest Respiratory/Chest: Reports dyspnea on exertion; Denies cough, dyspnea, orthopnea, paroxysmal nocturnal dyspnea or sputum Gastrointestinal Gastrointestinal: Denies abdominal pain, constipation, diarrhea, melena, nausea or vomiting Genitourinary Genitourinary ED: Denies dysuria, hematuria or urinary frequency Musculoskeletal Musculoskeletal: Reports back pain; Denies arthralgias, myalgias or neck pain Integumentary Denies abscess, Abrasions or rash Neurologic Neurologic: Reports weakness; Denies headache(s) or paresthesias Endocrine Endocrinology: Denies cold intolerance or heat intolerance Hematologic/Lymphatic Hematologic/Lymphatic: Reports systems reviewed and no addt'l complaints, exceptas documented Allergic/Immunologic Allergic/Immunologic ED: Denies mouth swelling, tongue swelling or urticaria EXAM Physical Exam Const Vital Signs: 11/01/22 18:54 11/01/22 19:01 11/01/22 18:59 Temperature 99.1 F Temperature Source Oral Pulse Rate 160 H 146 H Respiratory Rate 18 21 H Respiratory Effort Short of Breath Respiratory Pattern Tachypnea Blood Pressure 118/86 H 110/83 H Blood Pressure Mean 96 92 Pulse Ox 96 97 Oxygen Delivery Method Room Air Room Air 11/01/22 19:20 11/01/22 19:28 11/01/22 19:29 Temperature Temperature Source Pulse Rate 125 H 115 H 106 H Respiratory Rate 20 H 15 19 H Respiratory Effort Respiratory Pattern Blood Pressure 98/83 H 95/79 102/80 Blood Pressure Mean 88 84 87 Pulse Ox 95 96 95 Oxygen Delivery Method Room Air Room Air 11/01/22 19:34 11/01/22 19:35 11/01/22 19:40 Temperature Temperature Source Pulse Rate 104 H 111 H 101 H Respiratory Rate 19 H 15 17 Respiratory Effort Respiratory Pattern Blood Pressure 92/68 93/70 Blood Pressure Mean 78 79 Pulse Ox Oxygen Delivery Method 11/01/22 19:45 Temperature Temperature Source Pulse Rate 125 H Respiratory Rate 17 Respiratory Effort Respiratory Pattern Blood Pressure 102/76 Blood Pressure Mean 85 Pulse Ox 100 Oxygen Delivery Method Positive well nourished and well developed Constitutional Narrative: Patient does appear pale. He is slightly tachypneic when I entered the room. He denies short of breath, however. General Appearance ED: well developed, NAD and pallor; Negative for cyanotic or diaphoretic HEENT Reports moist mucous membranes HEENT Narrative: Head is atraumatic normocephalic. Ears are normal. Nares are patent. Conjunctive are pale. Posterior pharynx unremarkable. Uvula is midline. Eyes PERRL and EOMs intact bilaterally General Eye ED: Negative for pale conjunctiva or scleral icterus Neck no lymphadenopathy, supple and no JVD Chest Wall inspection of chest normal and palpation of chest normal Resp normal respiratory effort and No clear to auscultation bilaterally Auscultation: rales left base GI normal to inspection, nondistended, normoactive bowel sounds, non-tender and non-distended; Negative for hepatosplenomegaly or no masses GI Narrative: There is no palpable mass or pulsatile mass appreciated. There is no abdominal bruit. Of note he has a 4.5 cm abdominal aortic aneurysm per prior records. Palpation: soft Back/Spine no CVA tenderness Back/Spine Narrative: Pain outpatient right lower back. Neuro oriented x3, CN's II-XII intact bilaterally and no sensory deficits noted Sensorium / Orientation: alert Motor Exam: strength 5/5 throughout Psych mental status grossly normal Skin no rashes or lesions noted and No skin turgor normal General Skin Exam: pallor; Negative for jaundice MDM MDM MDM Narrative Medical decision making narrative: Suspect patient's low back pain is due to muscular pain. Since patient appears pale has pale conjunctive a suspect he is anemic. Will obtain CBC. Will obtainbasic metabolic panel to assess renal chin, glucose and electrolytes. Because he had transient pain will obtain troponin. Patient received 2.5 mg of metoprolol. This was decreased 6 patient's blood pressure is dropped since arrival. This was administered for rate control since he has chronic paroxysmalatrial fib. Patient's heart rate did improve with 2.5 mg of metoprolol. Patient's blood pressure however is in the 90s. This may be due to anemia from blood loss. Stool was sent for occult testing since it was not grossly bloody or black. Records from cardiology were reviewed. He is mainly seen for hypertension and atrial fibrillation. He also has outside records for hypertension. History & Record Review Discussion w/independent historian: Patient and Significant other Additional record(s) reviewed:: Prior outpatient record, Prior ED visit and Prior labs Lab Data Attestation: I reviewed the patient's lab results. Lab results narrative: CBC is remarkable for anemia. Indices are slightly abnormal. Platelet count isnormal. BUN and creatinine are 19 and 1.46 with a GFR 49. First troponin is normal at 14. Glucose is 142 with a normal CO2 and anion gap. Comparing prior labs indicates that patient's hemoglobin is dropped approximately 2 g in less than a month. His creatinine is at slightly above baseline. Labs: Laboratory Results - last 24 hr 11/01/22 19:00 WBC 6.1 RBC 2.80 L Hgb 7.5 L Hct 24.8 L MCV 88.6 MCH 26.8 L MCHC 30.2 L RDW Std Deviation 52.3 H RDW Coeff of Duyen 16.0 H Plt Count 167 MPV 8.2 Immature Gran % (Auto) 0.500 Neut % (Auto) 88.4 H Lymph % (Auto) 6.1 L Crittenden % (Auto) 4.1 Eos % (Auto) 0.7 Baso % (Auto) 0.2 Absolute Neuts (auto) 5.4 Absolute Lymphs (auto) 0.37 L Nucleated RBC % 0 Differential Comment SCANNED Sodium 139 Potassium 4.3 Chloride 106 Carbon Dioxide 29.0 Anion Gap 4 L BUN 19 H Creatinine 1.46 H Estim Creat Clear Calc 39.04 Est GFR (MDRD) Af Amer 60 Est GFR (MDRD) Non-Af 49 L BUN/Creatinine Ratio 13.0 Glucose 142 H Calcium 9.0 Troponin I High Sens 14 Radiography Chest X-Ray - ED: 1 View and Read by ED Physician (Patient has evidence of aortic graft. Patient also has wired due to mitral valve repair. There are sternotomy wires noted. Cardiac silhouette and size unremarkable. Mild chronicchanges. Perihilar region appears normal. Osseous structures are unremarkable.) Diagnostic Testing: Clinical Impression(s) from Imaging Studies Chest X-Ray 11/01/22 19:04 IMPRESSION: No active disease. 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 Will inform Dr. Medina of patient's history physical and need for admission.) Critical Care Time Critical Care Time: Yes Critical care time (excluding procedures): 30-74 minutes (31), Including time spent: (History, physical, documentation, review of prior records, initiation oftherapy), Discussing w/Patient &/or Family/Air Operations Manager (Informed patient and spouse of the test results need for admission), Discussing w/Consultants (Dr. Medina hospitalist for admission) and Arranging Admission or Transfer Discharge Plan Dx/Rx/DC Orders Clinical Impression: Atrial fibrillation with RVR, Essential hypertension, Atherosclerotic heart disease of [place] coronary artery without angina pectoris, Acute hypotension, Acute on chronic anemia, Anticoagulant long-term use, Acute right-sided low backpain Disposition Disposition: Acute Care Hospital [facility] What to do if you have Problems For any increased pain, shortness of breath, bleeding, nausea or vomiting, chestpain, or any unexpected problems, contact your Primary Care Provider. Call [facility] ([phone]) or report to the closest Emergency Room. Call 911 if necessary. 11/01/222003 <Electronically signed by Dustin Jeffery MD> Cosigner Signature (if applicable): CC: Dr. Rebecca Dinh MD ~ Signed [facility] Work Phone: [phone] History of Present illness Narrative* Silva Palacios PA-C - 10/28/2022 12:44 PM EDT CC: Patient presents with: Follow Up: follow up-neck and back pain x 3 weeks HPI Dagoberto Baxter JR is a 82 year old male who presents today for 2-3 week f/u re: LBP, with radiation to right upper back. Pt was seen on 10/10, and was txed with prednisone Notes that he is ~60% better. Still seeing chiropractor, Cipriano Seth, most recently this AM. He took the prednisone with some relief, but then it seemed like it has stayed about the same since completion. Has also been taking Tylenol at home. REVIEW OF SYSTEMS MUSCULOSKELETAL: See HPI All other systems negative. 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 [phone] Solar Lentigo and Solar Lentigines 07/17/2011 Unspecified essential hypertension Essential hypertension PAST SURGICAL HISTORY Procedure Laterality Date COLONOSCOPY W/BIOPSY 11/29/02 [facility] - hemorrhoids COLONOSCOPY FLX DX W/COLLJ SPEC WHEN PFRMD 12/14/12 Colonoscopy COLONOSCOPY FLX DX W/COLLJ SPEC WHEN PFRMD 12/14/12 Colonoscopy HEART VALVE REPLACEMENT 06/2003 Bovine Pericardial Heart Valve HEMORRHOIDECTOMY INTERNAL RUBBER BAND LIGATIONS Hemorrhoidectomy LEFT HEART CATH,PERCUTANEOUS 03/2003 Cardiac cath, L heart OPEN TX NASOETHMOID FX W/O EXTERNAL FIXATION ALLERGIES Atenolol, Crestor [Rosuvastatin Calcium], Feathers, Fragrances, Lipitor [Atorvastatin Calcium], Lovastatin, Pollen, Pravastatin, and Red Yeast Rice MEDICATIONS apixaban (ELIQUIS) 5 mg tab(s) Take 5 mg by mouth twice daily. furosemide (LASIX) 40 mg tablet Take 40 mg by mouth once daily. potassium chloride 20 mEq TbER Take 1 tablet by mouth every 12 hours. Zinc Acetate, Oral, 25 mg (zinc) cap DAILY metoprolol tartrate, short acting, (LOPRESSOR) 25 mg tablet Take 1 tablet by mouth twice daily. tamsulosin (FLOMAX) 0.4 mg Take 1 capsule by mouth daily at bedtime. iv contrast (will be provided with radiology test) CTA CHEST (NONGATED) ABD/PEL WO/W IVCON - No IV access, insert saline lock prior to the sedation, infusion, injection for imaging exam. Discontinue saline lock post exam. If Pt. has a central line or IVAD, may access for administration according toline specific nursing protocol. Once exam is complete flush line and de-access according to line specific nursing protocol in the CT contrast administration guidelines link. famotidine (PEPCID) 20 mg tablet Take 1-2 tablets by mouth at bedtime as needed. amLODIPine (NORVASC) 10 mg tablet Take 1 tablet by mouth once daily. losartan (COZAAR) 50 mg tablet Take 1 tablet by mouth once daily. coenzyme Q10 (COENZYME Q-10) 100 mg cap capsule Take 1 capsule by mouth once daily. cyanocobalamin (VITAMIN B-12) 1,000 mcg tab Take 1 tablet by mouth once daily. ezetimibe (ZETIA) 10 mg tablet Take 1 tablet by mouth once daily. magnesium oxide 200 mg magnesium chew Take by mouth. fluticasone (FLONASE) 50 mcg/actuation nasal spray Use 2 Sprays in each nostril once daily. Rinse mouth after use. (Patient taking differently: Use 2 Sprays in each nostril once daily. Rinse mouth after use.) aspirin 81 mg chewable tablet 1 tablet by ORAL/FEEDING TUBE route once daily. Cholecalciferol, Vitamin D3, (VITAMIN D) 25 mcg (1,000 unit) cap Take 1 capsule by mouth twice daily. Ascorbic Acid (VITAMIN C) 1,000 mg tablet Take 1,000 mg by mouth once daily. BIPAP Settings 16/11 with BUR 12, suitable mask per pt preference (Airfit F30), chin strap, head gear, humidity, tubing, lifetime supplies. G47.33 PARKER [employer] PRODUCT garlic one tablet daily FAMILY HISTORY Problem Relation Age of Onset Heart Mother valve replacement other (OHS) Mother 70 age 73 Coronary Artery Disease Father Hypertension Father other (Myocardial infarction) Father 69 other (HTN) Sister Lipids Brother other (HTN) Brother other (Myocardial infarction) Maternal Grandfather 73 Social History Tobacco Use Smoking status: Never Smokeless tobacco: Never Substance Use Topics Alcohol use: No Drug use: No PHYSICAL EXAM BP 120/56 (BP Site: Left Arm, BP Position: Sitting, BP Cuff Size: Large Adult) Pulse 81 Temp 36.8 C (98.3 F) Resp 12 Ht 172.7 cm (5' 8") Wt 85.7 kg (189 lb) SpO2 98% BMI 28.74 kg/m General Appearance: well appearing, in no acute distress, alert Pysch: mood and affect broad and appropriate Skin: Skin color, texture, turgor normal for age; Neck: No adenopathy Back: Normal curvature of spine. No midline tenderness. Normal lower extremity strength, sensation in tact bilaterally. Tenderness to palpation and muscle spasm noted in right SI joint region. mildlylimited ROM secondary to pain with flexion and extension; normal lateral side bending and rotation.Negative SLR. Lungs: Unlabored on room air Extremities: No deformities, edema, skin discoloration, clubbing or cyanosis. Good capillary refill. Musculoskeletal: No joint swelling, deformity, or tenderness ASSESSMENT/PLAN: 1. Acute right-sided low back pain without sciatica - ICD9: 724.2, ICD10: M54.50 PE findings c/w MSK/back muscle spasms. Stretching exercises advised and/or handouts given, application of heat/ice advised, pain control addressed (discussed max dosing for Tylenol). Discussed medication indications, proper use, and potential adverse effects. All questions and concerns addressed to patient satisfaction. We will reassess status in 3 to 4 weeks. INB, will consider additional imaging +/- referral to PT Potential red flag symptoms discussed with the patient. Reviewed appropriate action plan to take ifred flag symptoms occur. Patient agreeable to treatment plan. Silva Palacios PA-C documented in this encounterMag[facility]08-03-2023 History of Present illness Narrative* Gian Bear MD - 10/10/2022 2:15 PM EDT This note was created using Airbiquityriter. Subjective Patient presents with: ED Follow-up Dagoberto Baxter JR was here with his . Patient reports low back pain with acute onset since for a week. The pain is located in lower back bilaterally with radiation to right upper back to posterior neck bilaterally and described as sharp and pressure. Pain is worse with walking, bending, twisting, hitting a bump on the road, cold draft,and better with heating pad and sitting. 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 Pain was 1/10 at rest, and 8/10 with activity. He went to the ER 10/05/22 where lumbar spine xray showed degenerative disc disease. He was prescribed Paloma 1 tablet every 8 hours as needed with no relief, even when he took 2 tablets together. Review of Systems Constitutional: Negative for chills, diaphoresis, fatigue, fever and unexpected weight change. HENT: Negative. Eyes: Negative for visual disturbance. Respiratory: Negative for cough and shortness of breath. Cardiovascular: Negative for chest pain, palpitations and leg swelling. Gastrointestinal: Negative for abdominal pain. Genitourinary: Negative for difficulty urinating. Neurological: Negative for dizziness, light-headedness, numbness and headaches. ACTIVE PROBLEM LIST Mixed Hyperlipidemia Unspecified Asthma(493.90) PERS HX SKIN MALIGNANCY: H/O BCC's Seborrheic Keratosis S/P Aortic Valve Replacement Actinic Skin Damage Parker (Obstructive Sleep Apnea) Aneurysm of Thoracic Aorta (Hcc) Ckd (Chronic Kidney Disease) Stage 3, Gfr 30-59 Ml/Min (Hcc) Aneurysm of Left Subclavian Artery ([facility]) Research Study Patient Postoperative Pain Postoperative Atrial Fibrillation ([facility]) Dinh (Dyspnea On Exertion) S/P Tvr (Tricuspid Valve Repair) Current Outpatient Medications Medication Sig apixaban (ELIQUIS) 5 mg tab(s) Take 5 mg by mouth twice daily. furosemide (LASIX) 40 mg tablet Take 40 mg by mouth once daily. Zinc Acetate, Oral, 25 mg (zinc) cap DAILY metoprolol tartrate, short acting, (LOPRESSOR) 25 mg tablet Take 1 tablet by mouth twice daily. tamsulosin (FLOMAX) 0.4 mg Take 1 capsule by mouth daily at bedtime. famotidine (PEPCID) 20 mg tablet Take 1-2 tablets by mouth at bedtime as needed. amLODIPine (NORVASC) 10 mg tablet Take 1 tablet by mouth once daily. losartan (COZAAR) 50 mg tablet Take 1 tablet by mouth once daily. coenzyme Q10 (COENZYME Q-10) 100 mg cap capsule Take 1 capsule by mouth once daily. cyanocobalamin (VITAMIN B-12) 1,000 mcg tab Take 1 tablet by mouth once daily. ezetimibe (ZETIA) 10 mg tablet Take 1 tablet by mouth once daily. magnesium oxide 200 mg magnesium chew Take by mouth. fluticasone (FLONASE) 50 mcg/actuation nasal spray Use 2 Sprays in each nostril once daily. Rinse mouth after use. (Patient taking differently: Use 2 Sprays in each nostril once daily. Rinse mouth after use.) aspirin 81 mg chewable tablet 1 tablet by ORAL/FEEDING TUBE route once daily. Cholecalciferol, Vitamin D3, (VITAMIN D) 25 mcg (1,000 unit) cap Take 1 capsule by mouth twice daily. Ascorbic Acid (VITAMIN C) 1,000 mg tablet Take 1,000 mg by mouth once daily. BIPAP Settings 16/11 with BUR 12, suitable mask per pt preference (Airfit F30), chin strap, head gear, humidity, tubing, lifetime supplies. G47.33 PARKER [employer] PRODUCT garlic one tablet daily potassium chloride 20 mEq TbER Take 1 tablet by mouth every 12 hours. iv contrast (will be provided with radiology test) CTA CHEST (NONGATED) ABD/PEL WO/W IVCON - No IV access, insert saline lock prior to the sedation, infusion, injection for imaging exam. Discontinue saline lock post exam. If Pt. has a central line or IVAD, may access for administration according toline specific nursing protocol. Once exam is complete flush line and de-access according to line specific nursing protocol in the CT contrast administration guidelines link. No current facility-administered medications for this visit. Objective BP 94/60 (BP Site: Left Arm, BP Position: Sitting, BP Cuff Size: Large Adult) Pulse 100 Resp 20 Wt 86.1 kg (189 lb 12.8 oz) BMI 28.86 kg/m Physical Exam Constitutional: General: He is not in acute distress. Appearance: He is not diaphoretic. HENT: Head: Atraumatic. Eyes: Conjunctiva/sclera: Conjunctivae normal. Cardiovascular: Rate and Rhythm: Tachycardia present. Rhythm irregular. Heart sounds: No murmur heard. No gallop. Pulmonary: Breath sounds: Normal breath sounds. No wheezing or rales. Abdominal: Palpations: Abdomen is soft. Tenderness: There is no abdominal tenderness. Musculoskeletal: Cervical back: No tenderness or crepitus. Decreased range of motion. Thoracic back: No deformity, spasms or tenderness. Lumbar back: No spasms, tenderness or bony tenderness. Decreased range of motion. Negative right straight leg raise test and negative left straight leg raise test. Right lower leg: No edema. Left lower leg: No edema. Lymphadenopathy: Cervical: No cervical adenopathy. Skin: Findings: No rash. Neurological: General: No focal deficit present. Mental Status: He is alert. Sensory: No sensory deficit. Motor: No weakness. Gait: Gait normal. Assessment and Plan 1. Acute right-sided low back pain without sciatica - ICD9: 724.2, ICD10: M54.50 (primary diagnosis) Discussed medication dosage, usage, goals of therapy, and side effects. - PREDNISONE 10 MG TABLET 2. Acute upper back pain - ICD9: 724.5, 338.19, ICD10: M54.9 - PREDNISONE 10 MG TABLET 3. Acute neck pain - ICD9: 723.1, ICD10: M54.2 - PREDNISONE 10 MG TABLET 4. Anemia, unspecified type - ICD9: 285.9, ICD10: D64.9 Chronic. Monitor. 5. Atrial fibrillation, unspecified type (HCC) - ICD9: 427.31, ICD10: I48.91 Rate controlled. - APIXABAN 5 MG TABLET Gian Bear MD documented in this encounterMagr[facility] Hospital07-28-2023 Miscellaneous Notes* Telephone Encounter - Nadine Etienne RN - 10/04/2022 2:56 PM EDT [facility] Contact Center Inbound Phone Encounter DATE of SERVICE: 10/04/2022 TIME of SERVICE: 2:56 PM Status: FY Service/Provider: Cardiac Surgery Reynaldo Vaughan M.D. Reason for call: Patient states that he was seen in ED for atrial fib and shortness of breath. Has been following up with FULLER BRUSH MAN in local cardiology office. States that he is "still having problems". Heart rate 88. Denies shortness of breath. c/o back pain, which he attributes to lasix. Agrees to call local cardiology office now. Has follow up with Armida the end of October. Conferenced through to cardiology scheduling to coordinate appt with cardiology the same day Resolution: Urgent referral to PCP/advertising supervisor Nadine Etienne RN Date of Resolution: 10/04/2022 Time of Resolution 2:56 PM documented in this encounterMagruder Hospital06-20-2023 Miscellaneous Notes* Telephone Encounter - Joyce Alejo LPN - 08/27/2022 1:16 PM EDT Patient has been identified by name and date of : No Patient phones for refill(s): Requested Prescriptions Pending Prescriptions Disp Refills tamsulosin (FLOMAX) 0.4 mg 30 capsule 5 Sig: Take 1 capsule by mouth daily at bedtime. Date of last office visit in primary care: 07/03/22 Last 2 Encounter Wt Readings: Date: Wt: 07/03/2022 89.4 kg (197 lb) 12/31/2021 85.3 kg (188 lb) Previous labs/tests for medication: Not applicable Please advise. Thank you. Joyce Alejo LPN documented in this encounterMagruder Hospital04-26-2023 History of Present illness Narrative* Rebecca Dinh MD - 07/03/2022 4:42 PM EDT Medicare Yearly Visit Medical B eligibilty date age 67 Date of last exam none in the past year. PAST MEDICAL HISTORY Diagnosis Date Actinic keratosis Aortic valve disorders Aortic valve disorders Asthma as a child HTN (hypertension) 1989 Hyperplasia of prostate BPH Obstructive sleep apnea DME [facility] fx. [phone] Unspecified essential hypertension Essential hypertension PAST SURGICAL HISTORY Procedure Laterality Date COLONOSCOPY W/BIOPSY 11/29/02 [facility] - hemorrhoids COLONOSCOPY FLX DX W/COLLJ SPEC WHEN PFRMD 12/14/12 Colonoscopy COLONOSCOPY FLX DX W/COLLJ SPEC WHEN PFRMD 12/14/12 Colonoscopy HEART VALVE REPLACEMENT 06/2003 Bovine Pericardial Heart Valve HEMORRHOIDECTOMY INTERNAL RUBBER BAND LIGATIONS Hemorrhoidectomy LEFT HEART CATH,PERCUTANEOUS 03/2003 Cardiac cath, L heart OPEN TX NASOETHMOID FX W/O EXTERNAL FIXATION ALLERGIES: Atenolol, Crestor [Rosuvastatin Calcium], Feathers, Fragrances, Lipitor [Atorvastatin Calcium], Lovastatin, Pollen, Pravastatin, and Red Yeast Rice Medications reviewed: Yes FAMILY HISTORY Problem Relation Age of Onset Heart Mother valve replacement other (OHS) Mother 70 age 73 Coronary Artery Disease Father Hypertension Father other (Myocardial infarction) Father 69 other (HTN) Sister Lipids Brother other (HTN) Brother other (Myocardial infarction) Maternal Grandfather 73 SOCIAL HISTORY: Social History Tobacco Use Smoking status: Never Smokeless tobacco: Never Substance Use Topics Alcohol use: No Drug use: No 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 He watches his diet for sodium, low fat and low cholesterol most of the time. List of current specialists seen. End of Live Planning discussed including patients advanced directive wishes: Yes I am willing to follow Dagoberto's advanced directives. PHQ-2 / Depression screen He in the past two weeks denies having felt down, depressed, hopeless, or with little interest or pleasure in doing things. Functional Ability/Safety Screen 1. Was the patient's timed Up and Go test unsteady or longer than 30 seconds? No 2. Does the patient need help with the phone, transportation, shopping,preparing meals, housework, laundry, medications or managing money? No 3. Does your home have rugs in the hallway, lack of grab bars in the bathroom, lack of handrails onthe stairs or have poor lighting? No Hearing Evaluation: within normal limits and normal PHYSICAL EXAM BP 112/72 (BP Site: Left Arm, BP Position: Sitting, BP Cuff Size: Large Adult) Pulse 82 Temp 36.8 C (98.2 F) Resp 12 Ht 172.7 cm (5' 8") Wt 89.4 kg (197 lb) SpO2 97% BMI 29.95 kg/m Alert and oriented X 3: YES Body mass index is 29.95 kg/m . ASSESSMENT/PLAN: 82 year old male The following prevention plan was discussed during the office visit and provided to the patient: - Lipid panel - Glaucoma screening Reason for Visit No chief complaint on file. Dagoberto Baxter JR is a 82 year old male who presents here today for Above Complaints.. 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 Has an upcoming appointment withBasilio warren in the group that he was seen HTN: BP controlled today. Checks BP at home. Compliant with medications. Denies any chest pain, palpitations, SOB, swelling in the feet. Careful with diet to avoid salt, trying to eat more fruits andvegetables, exercises regularly Mild anemia. Will check his cbc and iron studies, supplement iron if needed. Gfr is coming down a little,. He seems a little dehydrated, asked him to increase him water intake He drinks 4 cups of coffee and not much water, set a target of slowly increasing his water intake to 4 cups of water in addition to his coffee. No problem-specific Assessment & Plan notes found for this encounter. PAST MEDICAL HISTORY Diagnosis Date Actinic keratosis Aortic valve disorders Aortic valve disorders Asthma as a child HTN (hypertension) 1989 Hyperplasia of prostate BPH Obstructive sleep apnea DME [facility] fx. [phone] Unspecified essential hypertension Essential hypertension PAST SURGICAL HISTORY Procedure Laterality Date COLONOSCOPY W/BIOPSY 11/29/02 [facility] - hemorrhoids COLONOSCOPY FLX DX W/COLLJ SPEC WHEN PFRMD 12/14/12 Colonoscopy COLONOSCOPY FLX DX W/COLLJ SPEC WHEN PFRMD 12/14/12 Colonoscopy HEART VALVE REPLACEMENT 06/2003 Bovine Pericardial Heart Valve HEMORRHOIDECTOMY INTERNAL RUBBER BAND LIGATIONS Hemorrhoidectomy LEFT HEART CATH,PERCUTANEOUS 03/2003 Cardiac cath, L heart OPEN TX NASOETHMOID FX W/O EXTERNAL FIXATION FAMILY HISTORY Problem Relation Age of Onset Heart Mother valve replacement other (OHS) Mother 70 age 73 Coronary Artery Disease Father Hypertension Father other (Myocardial infarction) Father 69 other (HTN) Sister Lipids Brother other (HTN) Brother other (Myocardial infarction) Maternal Grandfather 73 Social History Tobacco Use Smoking status: Never Smokeless tobacco: Never Substance Use Topics Alcohol use: No Drug use: No Past medical history, appointments, medications, allergies reviewed. Pertinent Lab/Diagnostic Studies are reviewed and discussed today Current Outpatient Medications: cyanocobalamin (VITAMIN B-12) 1,000 mcg tab metoprolol tartrate, short acting, (LOPRESSOR) 25 mg tablet tamsulosin (FLOMAX) 0.4 mg ezetimibe (ZETIA) 10 mg tablet famotidine (PEPCID) 20 mg tablet magnesium oxide 200 mg magnesium chew amLODIPine (NORVASC) 10 mg tablet losartan (COZAAR) 50 mg tablet fluticasone (FLONASE) 50 mcg/actuation nasal spray aspirin 81 mg chewable tablet Cholecalciferol, Vitamin D3, (VITAMIN D) 25 mcg (1,000 unit) cap Ascorbic Acid (VITAMIN C) 1,000 mg tablet coenzyme Q10 (COENZYME Q-10) 100 mg cap capsule BIPAP OTC PRODUCT Review of Systems CONSTITUTIONAL: No fevers, chills night sweats, unintended weight loss CARDIOVASCULAR: No chest pain, dyspnea, palpitations, orthopnea, PND, ankle edema. PULM: No dyspnea, unexplained cough. GI: No dysphagia/odynophagia, problematic reflux, constipation, diarrhea, changes in stool habits, hematochezia, melena. : No new urinary complaints, including dysuria, gross hematuria or pyuria. NEURO: No new balance problems, peripheral weakness/paresthesias or numbness of concern. Physical Exam BP 112/72 (BP Site: Left Arm, BP Position: Sitting, BP Cuff Size: Large Adult) Pulse 82 Temp 36.8 C (98.2 F) Resp 12 Ht 172.7 cm (5' 8") Wt 89.4 kg (197 lb) SpO2 97% BMI 29.95 kg/m General appearance: Well appearing, alert, in no acute distress, well nourished. Skin: Skin color, texture, turgor normal, no suspicious rashes or lesions Head: Normocephalic, no masses, lesions, tenderness or abnormalities Eyes: Anicteric sclera. Pupils are equally round and reactive to light. Extraocular movements are intact. Lungs: Lungs clear to auscultation. No wheezing, rhonchi, rales Heart: RRR without murmur, gallop, or rubs. Extremities: No deformities, edema, skin discoloration, clubbing or cyanosis. Good capillary refill. ASSESSMENT/PLAN: 1. Anemia, unspecified type - ICD9: 285.9, ICD10: D64.9 (primary diagnosis) - IRON + TIBC - FERRITIN BLD - CBC + DIFF 2. Essential hypertension - ICD9: 401.9, ICD10: I10 - good control - Recommended regular aerobic exercise. - Recommend home blood pressure monitoring, to bring results in on next visit - Goal of BP <130/80 3. Gastroesophageal reflux disease without esophagitis - ICD9: 530.81, ICD10: K21.9 - Discussed lifestyle modifications including losing weight, limiting caffeine, no meals three hours before sleep, and head of bed elevation - DEPRESSION SCREENING/ASSESSMENT - FAMOTIDINE 20 MG TABLET - AMLODIPINE 10 MG TABLET 1. Medicare annual wellness visit, subsequent - ICD9: V70.0, ICD10: Z00.00 (primary diagnosis) 2. Anemia, unspecified type - ICD9: 285.9, ICD10: D64.9 - IRON + TIBC - FERRITIN BLD - CBC + DIFF 3. Essential hypertension - ICD9: 401.9, ICD10: I10 4. Gastroesophageal reflux disease without esophagitis - ICD9: 530.81, ICD10: K21.9 - DEPRESSION SCREENING/ASSESSMENT - FAMOTIDINE 20 MG TABLET - AMLODIPINE 10 MG TABLET Rebecca Dinh MD documented in this encounterMagruder Hospital04-26-2023 Nurse Note* Joyce Alejo LPN - 07/03/2022 4:[address]James Delarosa in [place] for eye exams and last seen feb 2022 documented in this [facility]11-03-2022 Miscellaneous Notes* Telephone Encounter - Twyla Veronica RN - 01/10/2022 12:11 PM EDT Izabel with [facility] calls to request a copy of most recent OV note to support order for pap-titration sleep study they received. Faxed to [phone] per request. Twyla Veronica RN documented in this [facility]10-28-2022 Miscellaneous Notes* Telephone Encounter - Jolene Alas Ma - 01/04/2022 8:57 AM EDT Patient notified * Telephone Encounter - Jolene Alas Ma - 01/04/2022 8:40 AM EDT ----- Message from Rebecca Dinh MD sent at 01/03/2022 2:36 PM EDT ----- Please let him know that his vit d, vit b12 , glucose, albumin, phos is normal. documented in this [facility]10-24-2022 History of Present illness Narrative* Rebecca Dinh MD - 12/31/2021 3:59 PM EDT Reason for Visit Patient presents with: Follow Up: refills needed Dagoberto Baxter JR is a 81 year old male who presents here today for Above Complaints. Health Maintenance SHINGRIX VACCINE(2 of 3) DTAP,TDAP,TD(2 - Tdap) ADVANCE DIRECTIVE DISCUSSION DEPRESSION ASSESSMENT INFLUENZA(1) HPI Dagoberto Baxter JR is a 80 year old male. His past medical history significant for hypertension asthma sleep apnea bicuspid aortic valve with AMS. Status post AVR with #20 5C-E bovine pericardial graft, ascending aortic aneurysm repair 06/28/2003. Presented for operative consideration September 2020. 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 He underwent replacement of arch, elephant trunk graft into the arch to cover the left artery aneurysm origin, deployed stent in the left carotid and reconstruction of the R stent graft; AVR Flores valve and tricuspid valve repair. Patient was dosing off today in the office. He notes feeling very sleepy, uses the pap machine on adaily basis but is not rested in the morning, and he is sleeping a lot during the day time, if he sits down some where he begins to sleep immediately. 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 He was anemic after his cardiac surgery , we will check those levels again. HTN: Compliant with medications. Denies any chest pain, palpitations, or edema. No SOB. Doesn't check BP at home generally. Careful with diet to avoid salt, trying to eat more fruits and vegetables, exercises regularly. Urine is controlled No problem-specific Assessment & Plan notes found for this encounter. PAST MEDICAL HISTORY Diagnosis Date Actinic keratosis Aortic valve disorders Aortic valve disorders Asthma as a child HTN (hypertension) 1989 Hyperplasia of prostate BPH Obstructive sleep apnea DME [facility] fx. [phone] Unspecified essential hypertension Essential hypertension PAST SURGICAL HISTORY Procedure Laterality Date COLONOSCOPY W/BIOPSY 11/29/02 [facility] - hemorrhoids COLONOSCOPY FLX DX W/COLLJ SPEC WHEN PFRMD 12/14/12 Colonoscopy COLONOSCOPY FLX DX W/COLLJ SPEC WHEN PFRMD 12/14/12 Colonoscopy HEART VALVE REPLACEMENT 06/2003 Bovine Pericardial Heart Valve HEMORRHOIDECTOMY INTERNAL RUBBER BAND LIGATIONS Hemorrhoidectomy LEFT HEART CATH,PERCUTANEOUS 03/2003 Cardiac cath, L heart OPEN TX NASOETHMOID FX W/O EXTERNAL FIXATION FAMILY HISTORY Problem Relation Age of Onset Heart Mother valve replacement other (OHS) Mother 70 age 73 Coronary Artery Disease Father Hypertension Father other (Myocardial infarction) Father 69 other (HTN) Sister Lipids Brother other (HTN) Brother other (Myocardial infarction) Maternal Grandfather 73 Social History Tobacco Use Smoking status: Never Smokeless tobacco: Never Substance Use Topics Alcohol use: No Drug use: No Past medical history, appointments, medications, allergies reviewed. Pertinent Lab/Diagnostic Studies are reviewed and discussed today Current Outpatient Medications: tamsulosin (FLOMAX) 0.4 mg famotidine (PEPCID) 20 mg tablet magnesium oxide 200 mg magnesium chew amLODIPine (NORVASC) 10 mg tablet losartan (COZAAR) 50 mg tablet fluticasone (FLONASE) 50 mcg/actuation nasal spray aspirin 81 mg chewable tablet coenzyme Q10 (COENZYME Q-10) 100 mg cap capsule Cholecalciferol, Vitamin D3, (VITAMIN D) 25 mcg (1,000 unit) cap cyanocobalamin (VITAMIN B-12) 1,000 mcg tab metoprolol tartrate, short acting, (LOPRESSOR) 25 mg tablet Ascorbic Acid (VITAMIN C) 1,000 mg tablet BIPAP OTC PRODUCT Review of Systems CONSTITUTIONAL: No fevers, chills night sweats, unintended weight loss CARDIOVASCULAR: No chest pain, dyspnea, palpitations, orthopnea, PND, ankle edema. PULM: No dyspnea, unexplained cough. GI: No dysphagia/odynophagia, problematic reflux, constipation, diarrhea, changes in stool habits, hematochezia, melena. : No new urinary complaints, including dysuria, gross hematuria or pyuria. NEURO: No new balance problems, peripheral weakness/paresthesias or numbness of concern. Physical Exam BP 136/70 (BP Site: Left Arm, BP Position: Sitting, BP Cuff Size: Large Adult) Pulse 60 Temp 37C (98.6 F) Resp 12 Ht 172.7 cm (5' 8") Wt 85.3 kg (188 lb) SpO2 98% BMI 28.59 kg/m General appearance: Well appearing, alert, in no acute distress, well nourished. Skin: Skin color, texture, turgor normal, no suspicious rashes or lesions Head: Normocephalic, no masses, lesions, tenderness or abnormalities Eyes: Anicteric sclera. Pupils are equally round and reactive to light. Extraocular movements are intact. Lungs: Lungs clear to auscultation. No wheezing, rhonchi, rales Heart: RRR without murmur, gallop, or rubs. Extremities: No deformities, edema, skin discoloration, clubbing or cyanosis. Good capillary refill. ASSESSMENT/PLAN: 1. Uncontrolled nonfamilial obstructive sleep apnea - ICD9: 327.23, ICD10: G47.33 (primary diagnosis) We will check if his sleep apnea is adequately addressed. 2. Mild anemia - ICD9: 285.9, ICD10: D64.9 - CYANOCOBALAMIN (VIT B-12) 1,000 MCG TABLET 3. Essential hypertension - ICD9: 401.9, ICD10: I10 - good control - Recommended regular aerobic exercise. - Recommend home blood pressure monitoring, to bring results in on next visit - Goal of BP <130/80 - METOPROLOL TARTRATE 25 MG TABLET - CBC + DIFF - BASIC METABOLIC PNL 4. Vitamin B12 deficiency - ICD9: 266.2, ICD10: E53.8 - VITAMIN B12 BLOOD 5. Vitamin D deficiency - ICD9: 268.9, ICD10: E55.9 - VITAMIN D 25 HYDROXY 6. Prostate cancer screening - ICD9: V76.44, ICD10: Z12.5 - Counseled on healthy diet and regular exercise - PSA/PROSTSPECAG SCRN Rebecca Dinh MD documented in this encounter[facility] History of Present illness Narrative* Armida Long APRN.MAINTENANCE OPERATOR - 11/01/2021 1:30 PM EDT Images from the original note were not included. FOLLOW-UP Aortic Aneurysm and Aortic Repair Patient Type: Established PCP: Rebecca Dinh [address] [place] [address] Other Physician: Reynaldo Vaughan [address] [facility] [id number] Patient Mr. Baxter returns, now 12 months following the open repair of his ascending Aortic Aneurysm and valve disease. The patient is asymptomatic. The CT scan was reviewed and reveals a stable aortic repair. 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 The Echocardiogram reveals normal ventricular function and moderate mitral regurgitation, TV repairand AVR are well functioning 09/27/20 -- Dr Bakaeen & K[place]ac Ascending and subclavian aneurysm, REDO arch-FET -covering subclavian and left carotid, viabahn into the left carotid (subcalvian had prior CS bypass) BSAFE. AVR 25 bio, TVr 28 MC3. ascending replacement with 30 gelweave 09/22/2020 -- Dr Beckwith left carotid-subclavian bypass 06/28/2003 -- Dr Champion Median sternotomy; open heart; aortic valve replacement with a #25 Ken-Flores bovine pericardial heterograft. REVIEW OF SYSTEMS GENERAL: No weight loss, malaise or fevers HEENT: Negative for frequent or significant headaches, No changes in hearing or vision, no nose bleeds or other nasal problems RESPIRATORY: Negative for cough, hemoptysis, wheezing, COPD, dyspnea or shortness of breath CARDIOVASCULAR: Negative for chest pain, leg swelling, CHF or palpitations MUSCULOSKELETAL: Negative for joint pain or swelling, back pain or muscle pain and mild ankle swelling HEMATOLOGY/LYMPHOLOGY: Positive for bruises easily NEURO: No history of headaches, syncope, paralysis, seizures or tremors ENDOCRINE: Negative for cold or heat intolerance, polyuria, polydipsia and goiter All other systems reviewed and are negative. PHYSICAL EXAMINATION: BP 106/76 (BP Site: Left Arm, BP Position: Sitting, BP Cuff Size: Regular Adult) Pulse (!) 58 Temp 36.5 C (97.7 F) Resp 18 Ht 172.7 cm (5' 8") Wt 86.6 kg (191 lb) SpO2 98% BMI 29.04 kg/m General appearance: Well appearing, alert, in no acute distress, well-hydrated, well nourished. Lungs: lungs clear to auscultation. No wheezing, rhonchi, rales Heart: Negative except for murmur: 2/6 mid systolic low pitched blowing murmur URSB, ULSB, LSB, andLLSB Abdomen: Abdomen soft, non-tender. Bowel sounds normal. Extremities: No deformities, edema, skin discoloration, clubbing or cyanosis. Good capillary refill. Musculoskeletal: No joint swelling, deformity, or tenderness Neuro: Gait normal. Sensation grossly intact. Impression: The patient is doing well, after the last visit. Plan: He will return to see us in 12 months The following studies will be necessary: - CT C/A/P with and without contrast, post stent -Echocardiogram Armida Long APRN.CNS Medical Decision Making: Problems: Moderate: 2+ stable chronic illnesses Data: Unique test result(s) reviewed: 2 Unique test(s) ordered: 1 Medical Decision Making Level: 4 - Moderate documented in this encounterMagruder [facility]08-25-2022 History of Present illness Narrative* Gloria Britt RN - 11/01/2021 12:30 PM EDT Radiology Service Progress Note DATE OF SERVICE: November 01, 2021 TIME: 12:26 PM PATIENT WEIGHT: 190 LBS PATIENT IDENTITY VERIFICATION COMPLETED USING TWO (2) STANDARD IDENTIFIERS: Name and Date of confirmed by patient verbally and Name and Date of confirmed by identification band. FALL SCREENING: Has the patient had 2 falls in the last year or 1 fall with injury or currently using an Ambulatory Assistive Device (Walker, Cane, Wheelchair, Crutches, etc.)? No PATIENT GENDER DATA: Male ALLERGIES: Reviewed and unchanged CONTRAST ALLERGY: No EXAM: CT -CONTRAST INDUCED NEPHROPATHY RISK FACTORS: Patient age > 60 years CREATININE: Creatinine Date Value Ref Range Status 02/15/2021 1.22 0.73 - 1.22 mg/dL Final 01/16/2021 1.09 0.73 - 1.22 mg/dL Final Creatinine (POCT) Date Value Ref Range Status 01/16/2021 1.20 0.7 - 1.4 mg/dL Final eGFR-All Other Races Date Value Ref Range Status 02/15/2021 57 . Final Comment: eGFR (Estimated GFR) Units of measure: mL/min/1.73 meters squared eGFR is derived from the reexpressed MDRD Study equation using the following parameters: serum creatinine, age, gender and race. The creatinine assay has been calibrated to be traceable to IDMS. An eGFR <60 mL/min/1.73m2 for >3 months is consistent with chronic kidney disease. Refer to KDOQI guidelines for clinical interpretation. In patients with unstable renal function, e.g. those with acute kidney injury, the eGFR may not accurately reflect actual GFR. Note: On 05/05/2021, the eGFR calculation will be updated to the NKF-ASN Task Force recommended 2020 CKD-EPI creatinine equation which does not include a race variable. For more information or to access a 2020 CKD-EPI calculator, visit the National Kidney Foundation website at kidney.org/professionals/kdoqi/gfr_calculator. eGFR- Date Value Ref Range Status 02/15/2021 >60 Final P.O.C.T. RESULTS: POC done: Yes, See Lab Tab November 01, 2021 TREATMENT: N/A and No Hydration needed. IV SITE: Ambulatory: A peripheral IV was started in the Right antecubital site with a Angio cath: 20 gauge. and A Saline lock was inserted per protocol IV SITE APPEARANCE: Clean,Dry and Intact SIGNATURE: Gloria Britt RN PATIENT NAME: Dagoberto Baxter JR DATE: November 01, 2021 TIME: 12:26 PM * RT Negin(R) - 11/01/2021 12:30 PM EDT Radiology Service Progress Note PATIENT NAME: Dagoberto Baxter JR DATE OF SERVICE: November 01, 2021 TIME: 12:44 PM PATIENT IDENTITY VERIFICATION COMPLETED USING TWO (2) IDENTIFIERS: Name and Date of confirmedby patient verbally and Name and Date of confirmed by identification band. FALL SCREENING: Has the patient had 2 falls in the last year or 1 fall with injury or currently using an Ambulatory Assistive Device (Walker, Cane, Wheelchair, Crutches, etc.)? No PATIENT GENDER DATA: Male PATIENT RELEVANT IMPLANT DATA REVIEWED: Yes RADIOLOGY DEPARTMENT: CT; Exam(s) Completed: Cardiac PERIPHERAL IV DATA: Site assessment: Clean,Dry and Intact, Site disposition Discontinued SIGNED BY: RT Negin(R) November 01, 2021 12:44 PM documented in this encounterMagr[facility] Hospital06-10-2022 Miscellaneous Notes* Telephone Encounter - Joyce Alejo LPN - 08/17/2021 9:45 AM EDT Patient has been identified by name and date of : Yes Patient phones for refill(s): Pending Prescriptions Disp Refills TAMSULOSIN 0.4 MG CAPSULE 30 capsule 5 Sig: Take 1 capsule by mouth daily at bedtime. MANINDER: No Date of last office visit in primary care: 06/29/2021 Last 2 Encounter Wt Readings: Date: Wt: 06/29/2021 87.1 kg (192 lb) 02/15/2021 85.3 kg (188 lb) Previous labs/tests for medication: Not applicable Please advise. Thank you. Joyce Alejo LPN documented in this encounterMagr[facility]04-22-2022 History of Present illness Narrative* Rebecca Dinh MD - 06/29/2021 3:22 PM EDT Reason for Visit Patient presents with: Established Patient: 4 month follow up Dagoberto Baxter JR is a 81 year old male who presents here today for Above Complaints. Health Maintenance SHINGRIX VACCINE(2 of 3) DTAP,TDAP,TD(2 - Tdap) ADVANCE DIRECTIVE DISCUSSION HPI Dagoberto Baxter JR is a 80 year old male. His past medical history significant for hypertension asthma sleep apnea bicuspid aortic valve with AMS. Status post AVR with #20 5C E bovine pericardial graft, ascending aortic aneurysm repair 06/28/2003. Presented for operative consideration September 2020. 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 He underwent replacement of arch, elephant trunk graft into the arch to cover the left artery aneurysm origin, deployed stent in the left carotid and reconstruction of the R stent graft; AVR Flores valve and tricuspid valve repair. Patient notes he is back to normal after all the above procedures. He is just back from [place]. Patient has 3 brothers that live down there. He has sleep apnea for the past 18 years, uses his machine everyday, his sleep is good on the machine, he notes feeling rested when he wakes up in the morning. He has been gradually increasing in hisweight, he weight 170 when he did his first sleep study, now he is 200 pounds. Got his new machine last week. He is not on eliquis any more. Needs a lipid recheck, he is going to have it done. Cont the statin. LUTS: He has for a while had the LUTS and then it went away and now it started again some. Would like to try the tamsulosin No problem-specific Assessment & Plan notes found for this encounter. PAST MEDICAL HISTORY Diagnosis Date Actinic keratosis Aortic valve disorders Aortic valve disorders Asthma as a child HTN (hypertension) 1989 Hyperplasia of prostate BPH Obstructive sleep apnea DME DASCO fx. [phone] Unspecified essential hypertension Essential hypertension PAST SURGICAL HISTORY Procedure Laterality Date COLONOSCOPY W/BIOPSY 11/29/02 [facility] - hemorrhoids COLONOSCOPY FLX DX W/COLLJ SPEC WHEN PFRMD 12/14/12 Colonoscopy COLONOSCOPY FLX DX W/COLLJ SPEC WHEN PFRMD 12/14/12 Colonoscopy HEART VALVE REPLACEMENT 06/2003 Bovine Pericardial Heart Valve HEMORRHOIDECTOMY INTERNAL RUBBER BAND LIGATIONS Hemorrhoidectomy LEFT HEART CATH,PERCUTANEOUS 03/2003 Cardiac cath, L heart OPEN TX NASOETHMOID FX W/O EXTERNAL FIXATION FAMILY HISTORY Problem Relation Age of Onset Heart Mother valve replacement other (OHS) Mother 70 age 73 Coronary Artery Disease Father Hypertension Father other (Myocardial infarction) Father 69 other (HTN) Sister Lipids Brother other (HTN) Brother other (Myocardial infarction) Maternal Grandfather 73 Social History Tobacco Use Smoking status: Never Smoker Smokeless tobacco: Never Used Substance Use Topics Alcohol use: No Drug use: No Past medical history, appointments, medications, allergies reviewed. Pertinent Lab/Diagnostic Studies are reviewed and discussed today Current Outpatient Medications: fluticasone (FLONASE) 50 mcg/actuation nasal spray aspirin 81 mg chewable tablet amiodarone (PACERONE) 200 mg tablet Cholecalciferol, Vitamin D3, (VITAMIN D) 25 mcg (1,000 unit) cap cyanocobalamin (VITAMIN B-12) 1,000 mcg tab metoprolol tartrate, short acting, (LOPRESSOR) 25 mg tablet Ascorbic Acid (VITAMIN C) 1,000 mg tablet famotidine (PEPCID) 20 mg tablet OTC PRODUCT apixaban (ELIQUIS) 2.5 mg tab tab(s) coenzyme Q10 (COENZYME Q-10) 100 mg cap capsule BIPAP Review of Systems CONSTITUTIONAL: No fevers, chills night sweats, unintended weight loss CARDIOVASCULAR: No chest pain, dyspnea, palpitations, orthopnea, PND, ankle edema. PULM: No dyspnea, unexplained cough. GI: No dysphagia/odynophagia, problematic reflux, constipation, diarrhea, changes in stool habits, hematochezia, melena. : No new urinary complaints, including dysuria, gross hematuria or pyuria. NEURO: No new balance problems, peripheral weakness/paresthesias or numbness of concern. Physical Exam BP 132/62 (BP Site: Left Arm, BP Position: Sitting, BP Cuff Size: Large Adult) Pulse 66 Temp 36.7 C (98.1 F) Resp 12 Ht 172.7 cm (5' 8") Wt 87.1 kg (192 lb) SpO2 97% BMI 29.19 kg/m General appearance: Well appearing, alert, in no acute distress, well nourished. Skin: Skin color, texture, turgor normal, no suspicious rashes or lesions Head: Normocephalic, no masses, lesions, tenderness or abnormalities Eyes: Anicteric sclera. Pupils are equally round and reactive to light. Extraocular movements are intact. Lungs: Lungs clear to auscultation. No wheezing, rhonchi, rales Heart: RRR without murmur, gallop, or rubs. Extremities: No deformities, edema, skin discoloration, clubbing or cyanosis. Good capillary refill. ASSESSMENT/PLAN: 1. Mixed hyperlipidemia - ICD9: 272.2, ICD10: E78.2 (primary diagnosis) - good control - Continue current medication. 2. Prostate cancer screening - ICD9: V76.44, ICD10: Z12.5 - Counseled on healthy diet and regular exercise - PSA/PROSTSPECAG SCRN 3. PARKER (obstructive sleep apnea) - ICD9: 327.23, ICD10: G47.33 Cont the same. 4. Stage 3 chronic kidney disease, unspecified whether stage 3a or 3b CKD (HCC) - ICD9: 585.3, ICD10: N18.30 CKD: Stage 3, recent labs reviewed, shows GFR is stable, not significantly changed from previous labs. Discussed the importance of staying off the NSAIDs naproxen, motrin, brufen, aleve etc and contrast., adequate hydration Keeping blood pressure under control. Rebecca Dinh MD documented in this encounterMagr[facility] Hospital07-26-2021 History of Past illness Narrative* Problem Noted Date Diagnosed Date Resolved Date Encounter for support and co ordination of transition of care 10/02/2020 10/10/2022 Overview: Indication for Surgery: Preop LVEF: 62% RVF: Normal. mild MAC. 1+MR. 3-4+TR. Trace AR pkmn grad48/27 mmHg. Aorta dilated. EKG: SB with PVC Cath: focal stenosis of mid LCx. Otherwise coronary arteries are free of significant disease Cards: Dr. 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 A/P of Major Active Problems Transfer to SDU on 09/30 (pod 3) - s/p redo arch FET, AVR, TVr, Asc Aorta replacement- CTA completed 10/02/2020. Echo completed: EF 55%, RV mild. no AR pkmn grad 19/10 mmHg. - Post op PAFib- In ICU converted to SR with amio gtt, Amio PO, BB. Converted back to Afib CVR 10/03/2020- PAfib. continue Metop, amio taper. only Aspirin, no other Anti-coag per Dr Fleming - Renal (baseline SCr 1.06-1.23 )- SCr 1.34- slightly increased. hold diuretic today. - Thrombocytopenia- Plt count WNL. continue asa and sq heparin. Dispo- [place], [place]. evaluated by Cardiac rehab. no skilled needs anticipated. OPD appt requested. pcp, local cards appt scheduled. Prefers to f/u with local advertising supervisor d/t distance. f/u appt with Dr. Fleming in 3 months requested with CTA Discharge Planning: Anticipated Discharge Date: 10/04 Barriers to Discharge: No Barriers to Discharge Care Management Discharge Needs: none Fluid overload 09/29/2020 10/02/2020 Overview: History Post op. Assessment Intake/Output Summary (Last 24 hours) at 09/30/2020 1210 Last data filed at 09/30/2020 1130 Gross per 24 hour Intake 871 ml Output 2750 ml Net -1879 ml Plan Cont Bumex per C TS Atelectasis 09/27/2020 10/10/2022 Overview: History: Grade 1 Extubated NOS Assessment: on room air, SpO2 >95%. CTA with small bilateral pleural effusions, bibasilar atelectasis. Plan: Encourage PEP, deep breathing & ambulation. Postoperative hypotension 09/27/2020 Overview: History Post op Assessment Levo gtt Plan Wean Levo gtt as able Stress hyperglycemia 09/27/2020 021 Overview: History No H/o DM Assessment Controlled Plan SSI Discharge planning issues 09/18/2020 Overview: This is a 80 year old male from [place], [place]. No skilled needs anticipated. OPD appt scheduled for 10/10 Appt with local Cards- Dr. Victor Manuel Zhou's on 10/20 at 2;30 pm Appt with pcp- Dr. Rebecca Dinh's [employer] on 10/23/2020 at 12:40 pm. Preop testing 09/18/2020 10/01/2020 Overview[facility] Surgeon: Nasim Fleming M.D. COVID-19 Neg 09/21/2020 Informed Consent Completed: yes STS Score: CAD: No Is intended procedure a CABG: No - is a beta alvaro ordered? No - reason: ni H & P completed: Yes PA/LAT: completed CT: Completed--[facility] 08/19/20 MRI: N/A LE US: N/A Cath: Yes - reviewed: yes 09/19/20 EKG: Completed Is patient on Amiodarone? No Echo: completed EF %: 62 PI's: N/A --NO PIs in TCI PER DR. FLEMING REQUEST Carotid: N/A Mapping: N/A Dental: CLEARED seen in [facility] and cleared pt saw Dentist on 08/30/20 and was cleared Dentist wrote 02/01/20 as last exam but signed the form on 08/30/20 as cleared PFT's: N/A Recent Labs 09/18/20 0958 WBC 7.37 HB 13.7 HCT 42.5 PLT 193 INR 1.0 CREAT 1.11 UA: normal HCG:N/A ABO/ABO Confirmed: yes ABO/RH(D) Date Value Ref Range Status 09/25/2020 O POSITIVE Final Blood ordered: Yes DOS BLOOD ORDER 1 unit(s) PRBCS PT IS A REDO [facility] 2003 SA Swab: Yes - results: Negative Last Dose of Anticoagulation: ASA & CoQ10 09/16/20 Op Note: yes, 2003 [facility] Pacemaker Check: N/A Implants: yes: REDO [facility] SURGERY POST OP [facility] SURGICAL CHANGES sternal wires Consults: NA DM: No Cardiac Surgical prep: yes SIGNATURE: Paty Goyal RN DATE of SERVICE: 09/18/2020 TIME of SERVICE: 12:12 PM CHECKED BY: RE 09/26/2020 Medicare annual wellness visit, subsequent 02/27/2015 10/10/2022 Onychomycosis 07/01/2012 10/10/2022 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 Tinea pedis 07/01/2012 10/10/2022 Medicare annual wellness visit, subsequent 02/24/2012 02/27/2015 Solar Lentigo and Solar Lentigines 07/17/2011 10/10/2022 Castro angiomas 07/17/2011 10/10/2022 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 10/10/2022 Xerosis cutis 01/13/2011 10/10/2022 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 06/08/2008 03/13/2009 XEROSIS///SEBACEOUS GLAND DIS NEC 03/11/2008 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) 09/18/2006 10/10/2022 ACTINIC DAMAGE//CHR SOLAR SKIN DAMAGE 09/18/2006 06/17/2013 Irritated//Inflamed Seborrheic Keratosis 09/18/2006 10/10/2022 Skin Tag Papilloma 09/18/2006 Neoplasm of Uncertain Behavior (NUB) 01/23/2006 10/10/2022 SURGICAL SCARS & FIBROSIS OF SKIN 01/23/2006 10/10/2022 SOLAR LENTIGINES///DYSCHROMIA OTHER 01/23/2006 06/17/2013 Benign neoplasm of skin of t cori, except scrotum 01/23/2006 06/17/2013 OTHER UNSPEC SLEEP APNEA 10/26/200412/2013 Aortic valve disorder 05/30/20032017 Essential hypertension 05/30/200309/28 Overview: History: On multiple agents at home Assessment: hypotensive Plan: Hold antihypertensives Last Assessment & Plan: BP is well controlled on current regimen of medicines which is tolerated well. No significant side effects documented as of this encounter (statuses as of 10/11/2022) [facility] of Past illness Narrative* Problem Noted Date Diagnosed Date Resolved Date Encounter for support and co ordination of transition of care 10/02/2020 10/10/2022 Overview: Indication for Surgery: Preop LVEF: 62% RVF: Normal. mild MAC. 1+MR. 3-4+TR. Trace AR pkmn grad48/27 mmHg. Aorta dilated. EKG: SB with PVC Cath: focal stenosis of mid LCx. Otherwise coronary arteries are free of significant disease Cards: Dr. 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 A/P of Major Active Problems Transfer to SDU on 09/30 (pod 3) - s/p redo arch FET, AVR, TVr, Asc Aorta replacement- CTA completed 10/02/2020. Echo completed: EF 55%, RV mild. no AR pkmn grad 19/10 mmHg. - Post op PAFib- In ICU converted to SR with amio gtt, Amio PO, BB. Converted back to Afib CVR 10/03/2020- PAfib. continue Metop, amio taper. only Aspirin, no other Anti-coag per Dr Fleming - Renal (baseline SCr 1.06-1.23 )- SCr 1.34- slightly increased. hold diuretic today. - Thrombocytopenia- Plt count WNL. continue asa and sq [facility] [place] [place]. [facility]. no skilled needs anticipated. OPD appt requested. pcp, local cards appt scheduled. Prefers to f/u with local advertising supervisor d/t distance. f/u appt with Dr. Fleming in 3 months requested with CTA Discharge Planning: Anticipated Discharge Date: 10/04 Barriers to Discharge: No Barriers to Discharge Care Management Discharge Needs: none Fluid overload 09/29/2020 10/02/2020 Overview: History Post op. Assessment Intake/Output Summary (Last 24 hours) at 09/30/2020 1210 Last data filed at 09/30/2020 1130 Gross per 24 hour Intake 871 ml Output 2750 ml Net -1879 ml Plan Cont Bumex per C TS Atelectasis 09/27/2020 10/10/2022 Overview: History: Grade 1 Extubated NOS Assessment: on room air, SpO2 >95%. CTA with small bilateral pleural effusions, bibasilar atelectasis. Plan: Encourage PEP, deep breathing & ambulation. Postoperative hypotension 09/27/2020 Overview: History Post op Assessment Levo gtt Plan Wean Levo gtt as able Stress hyperglycemia 09/27/2020 021 Overview: History No H/o DM Assessment Controlled Plan SSI Discharge planning issues 09/18/2020 Overview: This is a 80 year old male from [place], [place]. No skilled needs anticipated. OPD appt scheduled for 10/10 Appt with local Cards- Dr. Victor Manuel Zhou's on 10/20 at 2;30 pm Appt with pcp- Dr. Rebecca Dinh's [employer] on 10/23/2020 at 12:40 pm. Preop testing 09/18/2020 10/01/2020 Overview: [facility] PRE-OP [facility] Surgeon: Nasim Fleming M.D. COVID-19 Neg 09/21/2020 Informed Consent Completed: yes STS Score: CAD: No Is intended procedure a CABG: No - is a beta alvaro ordered? No - reason: ni H & P completed: Yes PA/LAT: completed CT: Completed--[facility] 08/19/20 MRI: N/A LE US: N/A Cath: Yes - reviewed: yes 09/19/20 EKG: Completed Is patient on Amiodarone? No Echo: completed EF %: 62 PI's: N/A --NO PIs in TCI PER DR. FLEMING REQUEST Carotid: N/A Mapping: N/A Dental: CLEARED seen in [facility] and cleared pt saw Dentist on 08/30/20 and was cleared Dentist wrote 02/01/20 as last exam but signed the form on 08/30/20 as cleared PFT's: N/A Recent Labs 09/18/20 0958 WBC 7.37 HB 13.7 HCT 42.5 PLT 193 INR 1.0 CREAT 1.11 UA: normal HCG:N/A ABO/ABO Confirmed: yes ABO/RH(D) Date Value Ref Range Status 09/25/2020 O POSITIVE Final Blood ordered: Yes DOS BLOOD ORDER 1 unit(s) PRBCS PT IS A REDO [facility] 2003 SA Swab: Yes - results: Negative Last Dose of Anticoagulation: ASA & CoQ10 09/16/20 Op Note: yes, 2003 [facility] Pacemaker Check: N/A Implants: yes: REDO [facility] SURGERY POST OP [facility] SURGICAL CHANGES sternal wires Consults: NA DM: No Cardiac Surgical prep: yes SIGNATURE: Paty Goyal RN DATE of SERVICE: 09/18/2020 TIME of SERVICE: 12:12 PM CHECKED BY: RE 09/26/2020 Medicare annual wellness visit, subsequent 02/27/2015 10/10/2022 Onychomycosis 07/01/2012 10/10/2022 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 Tinea pedis 07/01/2012 10/10/2022 Medicare annual wellness visit, subsequent 02/24/2012 02/27/2015 Solar Lentigo and Solar Lentigines 07/17/2011 10/10/2022 Castro angiomas 07/17/2011 10/10/2022 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 10/10/2022 Xerosis cutis 01/13/2011 10/10/2022 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 06/08/2008 03/13/2009 XEROSIS///SEBACEOUS GLAND DIS NEC 03/11/2008 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) 09/18/2006 10/10/2022 ACTINIC DAMAGE//CHR SOLAR SKIN DAMAGE 09/18/2006 06/17/2013 Irritated//Inflamed Seborrheic Keratosis 09/18/2006 10/10/2022 Skin Tag Papilloma 09/18/2006 Neoplasm of Uncertain Behavior (NUB) 01/23/2006 10/10/2022 SURGICAL SCARS & FIBROSIS OF SKIN 01/23/2006 10/10/2022 SOLAR LENTIGINES///DYSCHROMIA OTHER 01/23/2006 06/17/2013 Benign neoplasm of skin of t runk, except scrotum 01/23/2006 06/17/2013 OTHER UNSPEC SLEEP APNEA 10/26/200412/2013 Aortic valve disorder 05/30/20032017 Essential hypertension 05/30/200309/28 Overview: History: On multiple agents at home Assessment: hypotensive Plan: Hold antihypertensives Last Assessment & Plan: BP is well controlled on current regimen of medicines which is tolerated well. No significant side effects documented as of this encounter (statuses as of 10/29/2022) [facility]07-26-2021 History of Past illness Narrative* Problem Noted Date Diagnosed Date Resolved Date Encounter for support and co ordination of transition of care 10/02/2020 10/10/2022 Overview: Indication for Surgery: Preop LVEF: 62% RVF: Normal. mild MAC. 1+MR. 3-4+TR. Trace AR pkmn grad48/27 mmHg. Aorta dilated. EKG: SB with PVC Cath: focal stenosis of mid LCx. Otherwise coronary arteries are free of significant disease Cards: Dr. 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 A/P of Major Active Problems Transfer to SDU on 09/30 (pod 3) - s/p redo arch FET, AVR, TVr, Asc Aorta replacement- CTA completed 10/02/2020. Echo completed: EF 55%, RV mild. no AR pkmn grad 19/10 mmHg. - Post op PAFib- In ICU converted to SR with amio gtt, Amio PO, BB. Converted back to Afib CVR 10/03/2020- PAfib. continue Metop, amio taper. only Aspirin, no other Anti-coag per Dr Fleming - Renal (baseline SCr 1.06-1.23 )- SCr 1.34- slightly increased. hold diuretic today. - Thrombocytopenia- Plt count WNL. continue asa and sq heparin. [facility] [place], [place]. evaluated by Cardiac rehab. no skilled needs anticipated. OPD appt requested. pcp, local cards appt scheduled. Prefers to f/u with local advertising supervisor d/t distance. f/u appt with Dr. Fleming in 3 months requested with CTA Discharge Planning: Anticipated Discharge Date: 10/04 Barriers to Discharge: No Barriers to Discharge Care Management Discharge Needs: none Fluid overload 09/29/2020 10/02/2020 Overview: History Post op. Assessment Intake/Output Summary (Last 24 hours) at 09/30/2020 1210 Last data filed at 09/30/2020 1130 Gross per 24 hour Intake 871 ml Output 2750 ml Net -1879 ml Plan Cont Bumex per C TS Atelectasis 09/27/2020 10/10/2022 Overview: History: Grade 1 Extubated NOS Assessment: on room air, SpO2 >95%. CTA with small bilateral pleural effusions, bibasilar atelectasis. Plan: Encourage PEP, deep breathing & ambulation. Postoperative hypotension 09/27/2020 Overview: History Post op Assessment Levo gtt Plan Wean Levo gtt as able Stress hyperglycemia 09/27/2020 021 Overview: History No H/o DM Assessment Controlled Plan SSI Discharge planning issues 09/18/2020 Overview: This is a 80 year old male from [place], [place]. No skilled needs anticipated. OPD appt scheduled for 10/10 Appt with local Cards- Dr. Victor Manuel Zhou's on 10/20 at 2;30 pm Appt with pcp- Dr. Reebcca Dinh's [employer] on 10/23/2020 at 12:40 pm. Preop testing 09/18/2020 10/01/2020 Overview[facility] Surgeon: Nasim Fleming M.D. COVID-19 Neg 09/21/2020 Informed Consent Completed: yes STS Score: CAD: No Is intended procedure a CABG: No - is a beta alvaro ordered? No - reason: ni H & P completed: Yes PA/LAT: completed CT: Completed--[facility] 08/19/20 MRI: N/A LE US: N/A Cath: Yes - reviewed: yes 09/19/20 EKG: Completed Is patient on Amiodarone? No Echo: completed EF %: 62 PI's: N/A --NO PIs in TCI PER DR. FLEMING REQUEST Carotid: N/A Mapping: N/A Dental: CLEARED seen in [facility]CI and cleared pt saw Dentist on 08/30/20 and was cleared Dentist wrote 02/01/20 as last exam but signed the form on 08/30/20 as cleared PFT's: N/A Recent Labs 09/18/20 0958 WBC 7.37 HB 13.7 HCT 42.5 PLT 193 INR 1.0 CREAT 1.11 UA: normal HCG:N/A ABO/ABO Confirmed: yes ABO/RH(D) Date Value Ref Range Status 09/25/2020 O POSITIVE Final Blood ordered: Yes DOS BLOOD ORDER 1 unit(s) PRBCS PT IS A REDO [facility] 2003 SA Swab: Yes - results: Negative Last Dose of Anticoagulation: ASA & CoQ10 09/16/20 Op Note: yes, 2003 [facility] Pacemaker Check: N/A Implants: yes: REDO [facility] SURGERY POST OP [facility]HS SURGICAL CHANGES sternal wires Consults: NA DM: No Cardiac Surgical prep: yes SIGNATURE: Paty Goyal RN DATE of SERVICE: 09/18/2020 TIME of SERVICE: 12:12 PM CHECKED BY: CELINA 09/26/2020 Medicare annual wellness visit, subsequent 02/27/2015 10/10/2022 Onychomycosis 07/01/2012 10/10/2022 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 Tinea pedis 07/01/2012 10/10/2022 Medicare annual wellness visit, subsequent 02/24/2012 02/27/2015 Solar Lentigo and Solar Lentigines 07/17/2011 10/10/2022 Castro angiomas 07/17/2011 10/10/2022 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 10/10/2022 Xerosis cutis 01/13/2011 10/10/2022 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 06/08/2008 03/13/2009 XEROSIS///SEBACEOUS GLAND DIS NEC 03/11/2008 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) 09/18/2006 10/10/2022 ACTINIC DAMAGE//CHR SOLAR SKIN DAMAGE 09/18/2006 06/17/2013 Irritated//Inflamed Seborrheic Keratosis 09/18/2006 10/10/2022 Skin Tag Papilloma 09/18/2006 Neoplasm of Uncertain Behavior (NUB) 01/23/2006 10/10/2022 SURGICAL SCARS & FIBROSIS OF SKIN 01/23/2006 10/10/2022 SOLAR LENTIGINES///DYSCHROMIA OTHER 01/23/2006 06/17/2013 Benign neoplasm of skin of t cori, except scrotum 01/23/2006 06/17/2013 OTHER UNSPEC SLEEP APNEA 10/26/200412/2013 Aortic valve disorder 05/30/20032017 Essential hypertension 05/30/200309/28 Overview: History: On multiple agents at home Assessment: hypotensive Plan: Hold antihypertensives Last Assessment & Plan: BP is well controlled on current regimen of medicines which is tolerated well. No significant side effects documented as of this encounter (statuses as of 11/06/2022) [facility]07-26-[facility]21 History of Past illness Narrative* Problem Noted Date Diagnosed Date Resolved Date Encounter for support and co ordination of transition of care 10/02/2020 10/10/2022 Overview: Indication for Surgery: Preop LVEF: 62% RVF: Normal. mild MAC. 1+MR. 3-4+TR. Trace AR pkmn grad48/27 mmHg. Aorta dilated. EKG: SB with PVC Cath: focal stenosis of mid LCx. Otherwise coronary arteries are free of significant disease Cards: Dr. 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 A/P of Major Active Problems Transfer to SDU on 09/30 (pod 3) - s/p redo arch FET, AVR, TVr, Asc Aorta replacement- CTA completed 10/02/2020. Echo completed: EF 55%, RV mild. no AR pkmn grad 19/10 mmHg. - Post op PAFib- In ICU converted to SR with amio gtt, Amio PO, BB. Converted back to Afib CVR 10/03/2020- PAfib. continue Metop, amio taper. only Aspirin, no other Anti-coag per Dr Fleming - Renal (baseline SCr 1.06-1.23 )- SCr 1.34- slightly increased. hold diuretic today. - Thrombocytopenia- Plt count WNL. continue asa and sq heparin. Dispo- [place], [place]. evaluated by Cardiac rehab. no skilled needs anticipated. OPD appt requested. pcp, local cards appt scheduled. Prefers to f/u with local advertising supervisor d/t distance. f/u appt with Dr. Fleming in 3 months requested with CTA Discharge Planning: Anticipated Discharge Date: 10/04 Barriers to Discharge: No Barriers to Discharge Care Management Discharge Needs: none Fluid overload 09/29/2020 10/02/2020 Overview: History Post op. Assessment Intake/Output Summary (Last 24 hours) at 09/30/2020 1210 Last data filed at 09/30/2020 1130 Gross per 24 hour Intake 871 ml Output 2750 ml Net -1879 ml Plan Cont Bumex per C TS Atelectasis 09/27/2020 10/10/2022 Overview: History: Grade 1 Extubated NOS Assessment: on room air, SpO2 >95%. CTA with small bilateral pleural effusions, bibasilar atelectasis. Plan: Encourage PEP, deep breathing & ambulation. Postoperative hypotension 09/27/2020 Overview: History Post op Assessment Levo gtt Plan Wean Levo gtt as able Stress hyperglycemia 09/27/2020 021 Overview: History No H/o DM Assessment Controlled Plan SSI Discharge planning issues 09/18/2020 Overview: This is a 80 year old male from [place], [place]. No skilled needs anticipated. OPD appt scheduled for 10/10 Appt with local Cards- Dr. Victor Manuel Zhou's on 10/20 at 2;30 pm Appt with pcp- Dr. Rebecca Dinh's [employer] on 10/23/2020 at 12:40 pm. Preop testing 09/18/2020 10/01/2020 Overview: [facility] Surgeon: Nasim Fleming M.D. COVID-19 Neg 09/21/2020 Informed Consent Completed: yes STS Score: CAD: No Is intended procedure a CABG: No - is a beta alvaro ordered? No - reason: ni H & P completed: Yes PA/LAT: completed CT: Completed--[facility] 08/19/20 MRI: N/A LE US: N/A Cath: Yes - reviewed: yes 09/19/20 EKG: Completed Is patient on Amiodarone? No Echo: completed EF %: 62 PI's: N/A --NO PIs in TCI PER DR. FLEMING REQUEST Carotid: N/A Mapping: N/A Dental: CLEARED seen in [facility] and cleared pt saw Dentist on 08/30/20 and was cleared Dentist wrote 02/01/20 as last exam but signed the form on 08/30/20 as cleared PFT's: N/A Recent Labs 09/18/20 0958 WBC 7.37 HB 13.7 HCT 42.5 PLT 193 INR 1.0 CREAT 1.11 UA: normal HCG:N/A ABO/ABO Confirmed: yes ABO/RH(D) Date Value Ref Range Status 09/25/2020 O POSITIVE Final Blood ordered: Yes DOS BLOOD ORDER 1 unit(s) PRBCS PT IS A REDO [facility] 2003 SA Swab: Yes - results: Negative Last Dose of Anticoagulation: ASA & CoQ10 09/16/20 Op Note: yes, 2003 [facility] Pacemaker Check: N/A Implants: yes: REDO [facility] SURGERY POST OP OHS SURGICAL CHANGES sternal wires Consults: NA DM: No Cardiac Surgical prep: yes SIGNATURE: Paty Goyal RN DATE of SERVICE: 09/18/2020 TIME of SERVICE: 12:12 PM CHECKED BY: RE 09/26/2020 Medicare annual wellness visit, subsequent 02/27/2015 10/10/2022 Onychomycosis 07/01/2012 10/10/2022 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 Tinea pedis 07/01/2012 10/10/2022 Medicare annual wellness visit, subsequent 02/24/2012 02/27/2015 Solar Lentigo and Solar Lentigines 07/17/2011 10/10/2022 Castro angiomas 07/17/2011 10/10/2022 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 10/10/2022 Xerosis cutis 01/13/2011 10/10/2022 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 06/08/2008 03/13/2009 XEROSIS///SEBACEOUS GLAND DIS NEC 03/11/2008 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) 09/18/2006 10/10/2022 ACTINIC DAMAGE//CHR SOLAR SKIN DAMAGE 09/18/2006 06/17/2013 Irritated//Inflamed Seborrheic Keratosis 09/18/2006 10/10/2022 Skin Tag Papilloma 09/18/2006 Neoplasm of Uncertain Behavior (NUB) 01/23/2006 10/10/2022 SURGICAL SCARS & FIBROSIS OF SKIN 01/23/2006 10/10/2022 SOLAR LENTIGINES///DYSCHROMIA OTHER 01/23/2006 06/17/2013 Benign neoplasm of skin of t runk, except scrotum 01/23/2006 06/17/2013 OTHER UNSPEC SLEEP APNEA 10/26/200412/2013 Aortic valve disorder 05/30/20032017 Essential hypertension 05/30/200309/28 Overview: History: On multiple agents at home Assessment: hypotensive Plan: Hold antihypertensives Last Assessment & Plan: BP is well controlled on current regimen of medicines which is tolerated well. No significant side effects documented as of this encounter (statuses as of 11/07/2022) [facility] History of Past illness Narrative* Problem Noted Date Diagnosed Date Resolved Date Encounter for support and co ordination of transition of care 10/02/2020 10/10/2022 Overview: Indication for Surgery: Preop LVEF: 62% RVF: Normal. mild MAC. 1+MR. 3-4+TR. Trace AR pkmn grad48/27 mmHg. Aorta dilated. EKG: SB with PVC Cath: focal stenosis of mid LCx. Otherwise coronary arteries are free of significant disease Cards: Dr. 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 A/P of Major Active Problems Transfer to SDU on 09/30 (pod 3) - s/p redo arch FET, AVR, TVr, Asc Aorta replacement- CTA completed 10/02/2020. Echo completed: EF 55%, RV mild. no AR pkmn grad 19/10 mmHg. - Post op PAFib- In ICU converted to SR with amio gtt, Amio PO, BB. Converted back to Afib CVR 10/03/2020- PAfib. continue Metop, amio taper. only Aspirin, no other Anti-coag per Dr Fleming - Renal (baseline SCr 1.06-1.23 )- SCr 1.34- slightly increased. hold diuretic today. - Thrombocytopenia- Plt count WNL. continue asa and sq heparin. Dispo- [place], [place]. evaluated by Cardiac rehab. no skilled needs anticipated. OPD appt requested. pcp, local cards appt scheduled. Prefers to f/u with local advertising supervisor d/t distance. f/u appt with Dr. Fleming in 3 months requested with CTA Discharge Planning: Anticipated Discharge Date: 10/04 Barriers to Discharge: No Barriers to Discharge Care Management Discharge Needs: none Fluid overload 09/29/2020 10/02/2020 Overview: History Post op. Assessment Intake/Output Summary (Last 24 hours) at 09/30/2020 1210 Last data filed at 09/30/2020 1130 Gross per 24 hour Intake 871 ml Output 2750 ml Net -1879 ml Plan Cont Bumex per C TS Atelectasis 09/27/2020 10/10/2022 Overview: History: Grade 1 Extubated NOS Assessment: on room air, SpO2 >95%. CTA with small bilateral pleural effusions, bibasilar atelectasis. Plan: Encourage PEP, deep breathing & ambulation. Postoperative hypotension 09/27/2020 Overview: History Post op Assessment Levo gtt Plan Wean Levo gtt as able Stress hyperglycemia 09/27/2020 021 Overview: History No H/o DM Assessment Controlled Plan SSI Discharge planning issues 09/18/2020 Overview: This is a 80 year old male from [place], [place]. No skilled needs anticipated. OPD appt scheduled for 10/10 Appt with local Cards- Dr. Victor Manuel Zhou's on 10/20 at 2;30 pm Appt with pcp- Dr. Rebecca Dinh's [employer] on 10/23/2020 at 12:40 pm. Preop testing 09/18/2020 10/01/2020 Overview: [facility] PRE[facility] Surgeon: Nasim Fleming M.D. COVID-19 Neg 09/21/2020 Informed Consent Completed: yes STS Score: CAD: No Is intended procedure a CABG: No - is a beta alvaro ordered? No - reason: ni H & P completed: Yes PA/LAT: completed CT: Completed--[facility] 08/19/20 MRI: N/A LE US: N/A Cath: Yes - reviewed: yes 09/19/20 EKG: Completed Is patient on Amiodarone? No Echo: completed EF %: 62 PI's: N/A --NO PIs in TCI PER DR. FLEMING REQUEST Carotid: N/A Mapping: N/A Dental: CLEARED seen in [facility] and cleared pt saw Dentist on 08/30/20 and was cleared Dentist wrote 02/01/20 as last exam but signed the form on 08/30/20 as cleared PFT's: N/A Recent Labs 09/18/20 0958 WBC 7.37 HB 13.7 HCT 42.5 PLT 193 INR 1.0 CREAT 1.11 UA: normal HCG:N/A ABO/ABO Confirmed: yes ABO/RH(D) Date Value Ref Range Status 09/25/2020 O POSITIVE Final Blood ordered: Yes DOS BLOOD ORDER 1 unit(s) PRBCS PT IS A REDO [facility] 2003 SA Swab: Yes - results: Negative Last Dose of Anticoagulation: ASA & CoQ10 09/16/20 Op Note: yes, 2003 [facility] Pacemaker Check: N/A Implants: yes: REDO [facility] SURGERY POST OP [facility] SURGICAL CHANGES sternal wires Consults: NA DM: No Cardiac Surgical prep: yes SIGNATURE: Paty Goyal RN DATE of SERVICE: 09/18/2020 TIME of SERVICE: 12:12 PM CHECKED BY: CELINA 09/26/2020 Medicare annual wellness visit, subsequent 02/27/2015 10/10/2022 Onychomycosis 07/01/2012 10/10/2022 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 Tinea pedis 07/01/2012 10/10/2022 Medicare annual wellness visit, subsequent 02/24/2012 02/27/2015 Solar Lentigo and Solar Lentigines 07/17/2011 10/10/2022 Castro angiomas 07/17/2011 10/10/2022 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 10/10/2022 Xerosis cutis 01/13/2011 10/10/2022 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 06/08/2008 03/13/2009 XEROSIS///SEBACEOUS GLAND DIS NEC 03/11/2008 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) 09/18/2006 10/10/2022 ACTINIC DAMAGE//CHR SOLAR SKIN DAMAGE 09/18/2006 06/17/2013 Irritated//Inflamed Seborrheic Keratosis 09/18/2006 10/10/2022 Skin Tag Papilloma 09/18/2006 Neoplasm of Uncertain Behavior (NUB) 01/23/2006 10/10/2022 SURGICAL SCARS & FIBROSIS OF SKIN 01/23/2006 10/10/2022 SOLAR LENTIGINES///DYSCHROMIA OTHER 01/23/2006 06/17/2013 Benign neoplasm of skin of t runk, except scrotum 01/23/2006 06/17/2013 OTHER UNSPEC SLEEP APNEA 10/26/200412/2013 Aortic valve disorder 05/30/20032017 Essential hypertension 05/30/200309/28 Overview: History: On multiple agents at home Assessment: hypotensive Plan: Hold antihypertensives Last Assessment & Plan: BP is well controlled on current regimen of medicines which is tolerated well. No significant side effects documented as of this encounter (statuses as of 11/07/2022) [facility] History of Past illness Narrative* Problem Noted Date Diagnosed Date Resolved Date Encounter for support and co ordination of transition of care 10/02/2020 10/10/2022 Overview: Indication for Surgery: Preop LVEF: 62% RVF: Normal. mild MAC. 1+MR. 3-4+TR. Trace AR pkmn grad48/27 mmHg. Aorta dilated. EKG: SB with PVC Cath: focal stenosis of mid LCx. Otherwise coronary arteries are free of significant disease Cards: Dr. 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 A/P of Major Active Problems Transfer to SDU on 09/30 (pod 3) - s/p redo arch FET, AVR, TVr, Asc Aorta replacement- CTA completed 10/02/2020. Echo completed: EF 55%, RV mild. no AR pkmn grad 19/10 mmHg. - Post op PAFib- In ICU converted to SR with amio gtt, Amio PO, BB. Converted back to Afib CVR 10/03/2020- PAfib. continue Metop, amio taper. only Aspirin, no other Anti-coag per Dr Fleming - Renal (baseline SCr 1.06-1.23 )- SCr 1.34- slightly increased. hold diuretic today. - Thrombocytopenia- Plt count WNL. continue asa and sq heparin. Dispo- [place], [place]. evaluated by Cardiac rehab. no skilled needs anticipated. OPD appt requested. pcp, local cards appt scheduled. Prefers to f/u with local advertising supervisor d/t distance. f/u appt with Dr. Fleming in 3 months requested with CTA Discharge Planning: Anticipated Discharge Date: 10/04 Barriers to Discharge: No Barriers to Discharge Care Management Discharge Needs: none Fluid overload 09/29/2020 10/02/2020 Overview: History Post op. Assessment Intake/Output Summary (Last 24 hours) at 09/30/2020 1210 Last data filed at 09/30/2020 1130 Gross per 24 hour Intake 871 ml Output 2750 ml Net -1879 ml Plan Cont Bumex per C TS Atelectasis 09/27/2020 10/10/2022 Overview: History: Grade 1 Extubated NOS Assessment: on room air, SpO2 >95%. CTA with small bilateral pleural effusions, bibasilar atelectasis. Plan: Encourage PEP, deep breathing & ambulation. Postoperative hypotension 09/27/2020 Overview: History Post op Assessment Levo gtt Plan Wean Levo gtt as able Stress hyperglycemia 09/27/2020 021 Overview: History No H/o DM Assessment Controlled Plan SSI Discharge planning issues 09/18/2020 Overview: This is a 80 year old male from [place], [place]. No skilled needs anticipated. OPD appt scheduled for 10/10 Appt with local Cards- Dr. Victor Manuel Zhou's on 10/20 at 2;30 pm Appt with pcp- Dr. Rebecca Dinh's [employer] on 10/23/2020 at 12:40 pm. Preop testing 09/18/2020 10/01/2020 Overview: [facility] PRE[facility] Surgeon: Nasim Fleming M.D. COVID-19 Neg 09/21/2020 Informed Consent Completed: yes STS Score: CAD: No Is intended procedure a CABG: No - is a beta alvaro ordered? No - reason: ni H & P completed: Yes PA/LAT: completed CT: Completed--[facility] 08/19/20 MRI: N/A LE US: N/A Cath: Yes - reviewed: yes 09/19/20 EKG: Completed Is patient on Amiodarone? No Echo: completed EF %: 62 PI's: N/A --NO PIs in TCI PER DR. FLEMING REQUEST Carotid: N/A Mapping: N/A Dental: CLEARED seen in [facility] and cleared pt saw Dentist on 08/30/20 and was cleared Dentist wrote 02/01/20 as last exam but signed the form on 08/30/20 as cleared PFT's: N/A Recent Labs 09/18/20 0958 WBC 7.37 HB 13.7 HCT 42.5 PLT 193 INR 1.0 CREAT 1.11 UA: normal HCG:N/A ABO/ABO Confirmed: yes ABO/RH(D) Date Value Ref Range Status 09/25/2020 O POSITIVE Final Blood ordered: Yes DOS BLOOD ORDER 1 unit(s) PRBCS PT IS A REDO [facility] 2003 SA Swab: Yes - results: Negative Last Dose of Anticoagulation: ASA & CoQ10 09/16/20 Op Note: yes, 2003 [facility] Pacemaker Check: N/A Implants: yes: REDO [facility] SURGERY POST OP OHS SURGICAL CHANGES sternal wires Consults: NA DM: No Cardiac Surgical prep: yes SIGNATURE: Paty Goyal RN DATE of SERVICE: 09/18/2020 TIME of SERVICE: 12:12 PM CHECKED BY: CELINA 09/26/2020 Medicare annual wellness visit, subsequent 02/27/2015 10/10/2022 Onychomycosis 07/01/2012 10/10/2022 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 Tinea pedis 07/01/2012 10/10/2022 Medicare annual wellness visit, subsequent 02/24/2012 02/27/2015 Solar Lentigo and Solar Lentigines 07/17/2011 10/10/2022 Castro angiomas 07/17/2011 10/10/2022 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 10/10/2022 Xerosis cutis 01/13/2011 10/10/2022 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 06/08/2008 03/13/2009 XEROSIS///SEBACEOUS GLAND DIS NEC 03/11/2008 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 08/03/2 023 ACTINIC KERATOSES (Premalignant AK's) 09/18/2006 10/10/2022 ACTINIC DAMAGE//CHR SOLAR SKIN DAMAGE 09/18/2006 06/17/2013 Irritated//Inflamed Seborrheic Keratosis 09/18/2006 10/10/2022 Skin Tag Papilloma 09/18/2006 Neoplasm of Uncertain Behavior (NUB) 01/23/2006 10/10/2022 SURGICAL SCARS & FIBROSIS OF SKIN 01/23/2006 10/10/2022 SOLAR LENTIGINES///DYSCHROMIA OTHER 01/23/2006 06/17/2013 Benign neoplasm of skin of t runk, except scrotum 01/23/2006 06/17/2013 OTHER UNSPEC SLEEP APNEA 10/26/200412/2013 Aortic valve disorder 05/30/20032017 Essential hypertension 05/30/200309/28 Overview: History: On multiple agents at home Assessment: hypotensive Plan: Hold antihypertensives Last Assessment & Plan: BP is well controlled on current regimen of medicines which is tolerated well. No significant side effects documented as of this encounter (statuses as of 11/07/2022) [facility]21 History of Past illness Narrative* Problem Noted Date Diagnosed Date Resolved Date Encounter for support and co ordination of transition of care 10/02/2020 10/10/2022 Overview: Indication for Surgery: Preop LVEF: 62% RVF: Normal. mild MAC. 1+MR. 3-4+TR. Trace AR pkmn grad48/27 mmHg. Aorta dilated. EKG: SB with PVC Cath: focal stenosis of mid LCx. Otherwise coronary arteries are free of significant disease Cards: Dr. 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 A/P of Major Active Problems Transfer to SDU on 09/30 (pod 3) - s/p redo arch FET, AVR, TVr, Asc Aorta replacement- CTA completed 10/02/2020. Echo completed: EF 55%, RV mild. no AR pkmn grad 19/10 mmHg. - Post op PAFib- In ICU converted to SR with amio gtt, Amio PO, BB. Converted back to Afib CVR 10/03/2020- PAfib. continue Metop, amio taper. only Aspirin, no other Anti-coag per Dr Fleming - Renal (baseline SCr 1.06-1.23 )- SCr 1.34- slightly increased. hold diuretic today. - Thrombocytopenia- Plt count WNL. continue asa and sq heparin. Dispo- [place], [place]. evaluated by Cardiac rehab. no skilled needs anticipated. OPD appt requested. pcp, local cards appt scheduled. Prefers to f/u with local advertising supervisor d/t distance. f/u appt with Dr. Fleming in 3 months requested with CTA Discharge Planning: Anticipated Discharge Date: 10/04 Barriers to Discharge: No Barriers to Discharge Care Management Discharge Needs: none Fluid overload 09/29/2020 10/02/2020 Overview: History Post op. Assessment Intake/Output Summary (Last 24 hours) at 09/30/2020 1210 Last data filed at 09/30/2020 1130 Gross per 24 hour Intake 871 ml Output 2750 ml Net -1879 ml Plan Cont Bumex per C TS Atelectasis 09/27/2020 10/10/2022 Overview: History: Grade 1 Extubated NOS Assessment: on room air, SpO2 >95%. CTA with small bilateral pleural effusions, bibasilar atelectasis. Plan: Encourage PEP, deep breathing & ambulation. Postoperative hypotension 09/27/2020 Overview: History Post op Assessment Levo gtt Plan Wean Levo gtt as able Stress hyperglycemia 09/27/2020 021 Overview: History No H/o DM Assessment Controlled Plan SSI Discharge planning issues 09/18/2020 Overview: This is a 80 year old male from [place], [place]. No skilled needs anticipated. OPD appt scheduled for 10/10 Appt with local Cards- Dr. Victor Manuel Zhou's on 10/20 at 2;30 pm Appt with pcp- Dr. Rebecca Dinh's [employer] on 10/23/2020 at 12:40 pm. Preop testing 09/18/2020 10/01/2020 Overview[facility] Surgeon: Nasim Fleming M.D. COVID-19 Neg 09/21/2020 Informed Consent Completed: yes STS Score: CAD: No Is intended procedure a CABG: No - is a beta alvaro ordered? No - reason: ni H & P completed: Yes PA/LAT: completed CT: Completed--[facility] 08/19/20 MRI: N/A LE US: N/A Cath: Yes - reviewed: yes 09/19/20 EKG: Completed Is patient on Amiodarone? No Echo: completed EF %: 62 PI's: N/A --NO PIs in TCI PER DR. FLEMING REQUEST Carotid: N/A Mapping: N/A Dental: CLEARED seen in [facility] and cleared pt saw Dentist on 08/30/20 and was cleared Dentist wrote 02/01/20 as last exam but signed the form on 08/30/20 as cleared PFT's: N/A Recent Labs 09/18/20 0958 WBC 7.37 HB 13.7 HCT 42.5 PLT 193 INR 1.0 CREAT 1.11 UA: normal HCG:N/A ABO/ABO Confirmed: yes ABO/RH(D) Date Value Ref Range Status 09/25/2020 O POSITIVE Final Blood ordered: Yes DOS BLOOD ORDER 1 unit(s) PRBCS PT IS A REDO [facility] 2003 SA Swab: Yes - results: Negative Last Dose of Anticoagulation: ASA & CoQ10 09/16/20 Op Note: yes, 2003 [facility] Pacemaker Check: N/A Implants: yes: REDO [facility] SURGERY POST OP [facility] SURGICAL CHANGES sternal wires Consults: NA DM: No Cardiac Surgical prep: yes SIGNATURE: Paty Goyal RN DATE of SERVICE: 09/18/2020 TIME of SERVICE: 12:12 PM CHECKED BY: RE 09/26/2020 Medicare annual wellness visit, subsequent 02/27/2015 10/10/2022 Onychomycosis 07/01/2012 10/10/2022 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 Tinea pedis 07/01/2012 10/10/2022 Medicare annual wellness visit, subsequent 02/24/2012 02/27/2015 Solar Lentigo and Solar Lentigines 07/17/2011 10/10/2022 Castro angiomas 07/17/2011 10/10/2022 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 10/10/2022 Xerosis cutis 01/13/2011 10/10/2022 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 06/08/2008 03/13/2009 XEROSIS///SEBACEOUS GLAND DIS NEC 03/11/2008 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) 09/18/2006 10/10/2022 ACTINIC DAMAGE//CHR SOLAR SKIN DAMAGE 09/18/2006 06/17/2013 Irritated//Inflamed Seborrheic Keratosis 09/18/2006 10/10/2022 Skin Tag Papilloma 09/18/2006 Neoplasm of Uncertain Behavior (NUB) 01/23/2006 10/10/2022 SURGICAL SCARS & FIBROSIS OF SKIN 01/23/2006 10/10/2022 SOLAR LENTIGINES///DYSCHROMIA OTHER 01/23/2006 06/17/2013 Benign neoplasm of skin of t runk, except scrotum 01/23/2006 06/17/2013 OTHER UNSPEC SLEEP APNEA 10/26/200412/2013 Aortic valve disorder 05/30/20032017 Essential hypertension 05/30/200309/28 Overview: History: On multiple agents at home Assessment: hypotensive Plan: Hold antihypertensives Last Assessment & Plan: BP is well controlled on current regimen of medicines which is tolerated well. No significant side effects documented as of this encounter (statuses as of 11/08/2022) [facility]07-26-[facility]21 History of Past illness Narrative* Problem Noted Date Diagnosed Date Resolved Date Encounter for support and co ordination of transition of care 10/02/2020 10/10/2022 Overview: Indication for Surgery: Preop LVEF: 62% RVF: Normal. mild MAC. 1+MR. 3-4+TR. Trace AR pkmn grad48/27 mmHg. Aorta dilated. EKG: SB with PVC Cath: focal stenosis of mid LCx. Otherwise coronary arteries are free of significant disease Cards: Dr. 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 A/P of Major Active Problems Transfer to SDU on 09/30 (pod 3) - s/p redo arch FET, AVR, TVr, Asc Aorta replacement- CTA completed 10/02/2020. Echo completed: EF 55%, RV mild. no AR pkmn grad 19/10 mmHg. - Post op PAFib- In ICU converted to SR with amio gtt, Amio PO, BB. Converted back to Afib CVR 10/03/2020- PAfib. continue Metop, amio taper. only Aspirin, no other Anti-coag per Dr Fleming - Renal (baseline SCr 1.06-1.23 )- SCr 1.34- slightly increased. hold diuretic today. - Thrombocytopenia- Plt count WNL. continue asa and sq heparin. Dispo- [place], [place]. evaluated by Cardiac rehab. no skilled needs anticipated. OPD appt requested. pcp, local cards appt scheduled. Prefers to f/u with local advertising supervisor d/t distance. f/u appt with Dr. Fleming in 3 months requested with CTA Discharge Planning: Anticipated Discharge Date: 10/04 Barriers to Discharge: No Barriers to Discharge Care Management Discharge Needs: none Fluid overload 09/29/2020 10/02/2020 Overview: History Post op. Assessment Intake/Output Summary (Last 24 hours) at 09/30/2020 1210 Last data filed at 09/30/2020 1130 Gross per 24 hour Intake 871 ml Output 2750 ml Net -1879 ml Plan Cont Bumex per C TS Atelectasis 09/27/2020 10/10/2022 Overview: History: Grade 1 Extubated NOS Assessment: on room air, SpO2 >95%. CTA with small bilateral pleural effusions, bibasilar atelectasis. Plan: Encourage PEP, deep breathing & ambulation. Postoperative hypotension 09/27/2020 Overview: History Post op Assessment Levo gtt Plan Wean Levo gtt as able Stress hyperglycemia 09/27/2020 021 Overview: History No H/o DM Assessment Controlled Plan SSI Discharge planning issues 09/18/2020 Overview: This is a 80 year old male from [place], [place]. No skilled needs anticipated. OPD appt scheduled for 10/10 Appt with local Cards- Dr. Victor Manuel Zhou's on 10/20 at 2;30 pm Appt with pcp- Dr. Rebecca Dinh's [employer] on 10/23/2020 at 12:40 pm. Preop testing 09/18/2020 10/01/2020 Overview: [facility] Surgeon: Nasim Fleming M.D. COVID-19 Neg 09/21/2020 Informed Consent Completed: yes STS Score: CAD: No Is intended procedure a CABG: No - is a beta alvaro ordered? No - reason: ni H & P completed: Yes PA/LAT: completed CT: Completed--[facility] 08/19/20 MRI: N/A LE US: N/A Cath: Yes - reviewed: yes 09/19/20 EKG: Completed Is patient on Amiodarone? No Echo: completed EF %: 62 PI's: N/A --NO PIs in TCI PER DR. FLEMING REQUEST Carotid: N/A Mapping: N/A Dental: CLEARED seen in [facility] and cleared pt saw Dentist on 08/30/20 and was cleared Dentist wrote 02/01/20 as last exam but signed the form on 08/30/20 as cleared PFT's: N/A Recent Labs 09/18/20 0958 WBC 7.37 HB 13.7 HCT 42.5 PLT 193 INR 1.0 CREAT 1.11 UA: normal HCG:N/A ABO/ABO Confirmed: yes ABO/RH(D) Date Value Ref Range Status 09/25/2020 O POSITIVE Final Blood ordered: Yes DOS BLOOD ORDER 1 unit(s) PRBCS PT IS A REDO [facility] 2003 SA Swab: Yes - results: Negative Last Dose of Anticoagulation: ASA & CoQ10 09/16/20 Op Note: yes, 2003 [facility] Pacemaker Check: N/A Implants: yes: REDO [facility] SURGERY POST OP [facility] SURGICAL CHANGES sternal wires Consults: NA DM: No Cardiac Surgical prep: yes SIGNATURE: Payt Goyal RN DATE of SERVICE: 09/18/2020 TIME of SERVICE: 12:12 PM CHECKED BY: CELINA 09/26/2020 Medicare annual wellness visit, subsequent 02/27/2015 10/10/2022 Onychomycosis 07/01/2012 10/10/2022 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 Tinea pedis 07/01/2012 10/10/2022 Medicare annual wellness visit, subsequent 02/24/2012 02/27/2015 Solar Lentigo and Solar Lentigines 07/17/2011 10/10/2022 Castro angiomas 07/17/2011 10/10/2022 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 10/10/2022 Xerosis cutis 01/13/2011 10/10/2022 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 06/08/2008 03/13/2009 XEROSIS///SEBACEOUS GLAND DIS NEC 03/11/2008 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) 09/18/2006 10/10/2022 ACTINIC DAMAGE//CHR SOLAR SKIN DAMAGE 09/18/2006 06/17/2013 Irritated//Inflamed Seborrheic Keratosis 09/18/2006 10/10/2022 Skin Tag Papilloma 09/18/2006 3 Neoplasm of Uncertain Behavior (NUB) 01/23/2006 10/10/2022 SURGICAL SCARS & FIBROSIS OF SKIN 01/23/2006 10/10/2022 SOLAR LENTIGINES///DYSCHROMIA OTHER 01/23/2006 06/17/2013 Benign neoplasm of skin of t runk, except scrotum 01/23/2006 06/17/2013 OTHER UNSPEC SLEEP APNEA 10/26/200412/2013 Aortic valve disorder 05/30/20032017 Essential hypertension 05/30/200309/28 Overview: History: On multiple agents at home Assessment: hypotensive Plan: Hold antihypertensives Last Assessment & Plan: BP is well controlled on current regimen of medicines which is tolerated well. No significant side effects documented as of this encounter (statuses as of 11/15/2022) [facility] History of Past illness Narrative* Problem Noted Date Diagnosed Date Resolved Date Encounter for support and co ordination of transition of care 10/02/2020 10/10/2022 Overview: Indication for Surgery: Preop LVEF: 62% RVF: Normal. mild MAC. 1+MR. 3-4+TR. Trace AR pkmn grad48/27 mmHg. Aorta dilated. EKG: SB with PVC Cath: focal stenosis of mid LCx. Otherwise coronary arteries are free of significant disease Cards: Dr. 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 A/P of Major Active Problems Transfer to SDU on 09/30 (pod 3) - s/p redo arch FET, AVR, TVr, Asc Aorta replacement- CTA completed 10/02/2020. Echo completed: EF 55%, RV mild. no AR pkmn grad 19/10 mmHg. - Post op PAFib- In ICU converted to SR with amio gtt, Amio PO, BB. Converted back to Afib CVR 10/03/2020- PAfib. continue Metop, amio taper. only Aspirin, no other Anti-coag per Dr Fleming - Renal (baseline SCr 1.06-1.23 )- SCr 1.34- slightly increased. hold diuretic today. - Thrombocytopenia- Plt count WNL. continue asa and sq heparin. Dispo- [place], [place]. evaluated by Cardiac rehab. no skilled needs anticipated. OPD appt requested. pcp, local cards appt scheduled. Prefers to f/u with local advertising supervisor d/t distance. f/u appt with Dr. Fleming in 3 months requested with CTA Discharge Planning: Anticipated Discharge Date: 10/04 Barriers to Discharge: No Barriers to Discharge Care Management Discharge Needs: none Fluid overload 09/29/2020 10/02/2020 Overview: History Post op. Assessment Intake/Output Summary (Last 24 hours) at 09/30/2020 1210 Last data filed at 09/30/2020 1130 Gross per 24 hour Intake 871 ml Output 2750 ml Net -1879 ml Plan Cont Bumex per C TS Atelectasis 09/27/2020 10/10/2022 Overview: History: Grade 1 Extubated NOS Assessment: on room air, SpO2 >95%. CTA with small bilateral pleural effusions, bibasilar atelectasis. Plan: Encourage PEP, deep breathing & ambulation. Postoperative hypotension 09/27/2020 Overview: History Post op Assessment Levo gtt Plan Wean Levo gtt as able Stress hyperglycemia 09/27/2020 021 Overview: History No H/o DM Assessment Controlled Plan SSI Discharge planning issues 09/18/2020 Overview: This is a 80 year old male from [place], [place]. No skilled needs anticipated. OPD appt scheduled for 10/10 Appt with local Cards- Dr. Victor Manuel Zhou's on 10/20 at 2;30 pm Appt with pcp- Dr. Rebecca Dinh's [employer] on 10/23/2020 at 12:40 pm. Preop testing 09/18/2020 10/01/2020 Overview: [facility] PRE[facility] Surgeon: Nasim Fleming M.D. COVID-19 Neg 09/21/2020 Informed Consent Completed: yes STS Score: CAD: No Is intended procedure a CABG: No - is a beta alvaro ordered? No - reason: ni H & P completed: Yes PA/LAT: completed CT: Completed--[facility] 08/19/20 MRI: N/A LE US: N/A Cath: Yes - reviewed: yes 09/19/20 EKG: Completed Is patient on Amiodarone? No Echo: completed EF %: 62 PI's: N/A --NO PIs in [facility]CI PER DR. FLEMING REQUEST Carotid: N/A Mapping: N/A Dental: CLEARED seen in [facility] and cleared pt saw Dentist on 08/30/20 and was cleared Dentist wrote 02/01/20 as last exam but signed the form on 08/30/20 as cleared PFT's: N/A Recent Labs 09/18/20 0958 WBC 7.37 HB 13.7 HCT 42.5 PLT 193 INR 1.0 CREAT 1.11 UA: normal HCG:N/A ABO/ABO Confirmed: yes ABO/RH(D) Date Value Ref Range Status 09/25/2020 O POSITIVE Final Blood ordered: Yes DOS BLOOD ORDER 1 unit(s) PRBCS PT IS A REDO [facility] 2003 SA Swab: Yes - results: Negative Last Dose of Anticoagulation: ASA & CoQ10 09/16/20 Op Note: yes, 2003 [facility] Pacemaker Check: N/A Implants: yes: REDO [facility] SURGERY POST OP [facility] SURGICAL CHANGES sternal wires Consults: NA DM: No Cardiac Surgical prep: yes SIGNATURE: Paty Goyal RN DATE of SERVICE: 09/18/2020 TIME of SERVICE: 12:12 PM CHECKED BY: CELINA 09/26/2020 Medicare annual wellness visit, subsequent 02/27/2015 10/10/2022 Onychomycosis 07/01/2012 10/10/2022 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 Tinea pedis 07/01/2012 10/10/2022 Medicare annual wellness visit, subsequent 02/24/2012 02/27/2015 Solar Lentigo and Solar Lentigines 07/17/2011 10/10/2022 Castro angiomas 07/17/2011 10/10/2022 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 10/10/2022 Xerosis cutis 01/13/2011 10/10/2022 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 06/08/2008 03/13/2009 XEROSIS///SEBACEOUS GLAND DIS NEC 03/11/2008 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) 09/18/2006 10/10/2022 ACTINIC DAMAGE//CHR SOLAR SKIN DAMAGE 09/18/2006 06/17/2013 Irritated//Inflamed Seborrheic Keratosis 09/18/2006 10/10/2022 Skin Tag Papilloma 09/18/2006 Neoplasm of Uncertain Behavior (NUB) 01/23/2006 10/10/2022 SURGICAL SCARS & FIBROSIS OF SKIN 01/23/2006 10/10/2022 SOLAR LENTIGINES///DYSCHROMIA OTHER 01/23/2006 06/17/2013 Benign neoplasm of skin of t runk, except scrotum 01/23/2006 06/17/2013 OTHER UNSPEC SLEEP APNEA 10/26/200412/2013 Aortic valve disorder 05/30/20032017 Essential hypertension 05/30/200309/28 Overview: History: On multiple agents at home Assessment: hypotensive Plan: Hold antihypertensives Last Assessment & Plan: BP is well controlled on current regimen of medicines which is tolerated well. No significant side effects documented as of this encounter (statuses as of 11/28/2022) [facility] History of Past illness Narrative* Problem Noted Date Diagnosed Date Resolved Date Encounter for support and co ordination of transition of care 10/02/2020 10/10/2022 Overview: Indication for Surgery: Preop LVEF: 62% RVF: Normal. mild MAC. 1+MR. 3-4+TR. Trace AR pkmn grad48/27 mmHg. Aorta dilated. EKG: SB with PVC Cath: focal stenosis of mid LCx. Otherwise coronary arteries are free of significant disease Cards: Dr. 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 A/P of Major Active Problems Transfer to SDU on 09/30 (pod 3) - s/p redo arch FET, AVR, TVr, Asc Aorta replacement- CTA completed 10/02/2020. Echo completed: EF 55%, RV mild. no AR pkmn grad 19/10 mmHg. - Post op PAFib- In ICU converted to SR with amio gtt, Amio PO, BB. Converted back to Afib CVR 10/03/2020- PAfib. continue Metop, amio taper. only Aspirin, no other Anti-coag per Dr Fleming - Renal (baseline SCr 1.06-1.23 )- SCr 1.34- slightly increased. hold diuretic today. - Thrombocytopenia- Plt count WNL. continue asa and sq heparin. [facility] [place] [place]. evaluated by Cardiac rehab. no skilled needs anticipated. OPD appt requested. pcp, local cards appt scheduled. Prefers to f/u with local advertising supervisor d/t distance. f/u appt with Dr. Fleming in 3 months requested with CTA Discharge Planning: Anticipated Discharge Date: 10/04 Barriers to Discharge: No Barriers to Discharge Care Management Discharge Needs: none Fluid overload 09/29/2020 10/02/2020 Overview: History Post op. Assessment Intake/Output Summary (Last 24 hours) at 09/30/2020 1210 Last data filed at 09/30/2020 1130 Gross per 24 hour Intake 871 ml Output 2750 ml Net -1879 ml Plan Cont Bumex per C TS Atelectasis 09/27/2020 10/10/2022 Overview: History: Grade 1 Extubated NOS Assessment: on room air, SpO2 >95%. CTA with small bilateral pleural effusions, bibasilar atelectasis. Plan: Encourage PEP, deep breathing & ambulation. Postoperative hypotension 09/27/2020 Overview: History Post op Assessment Levo gtt Plan Wean Levo gtt as able Stress hyperglycemia 09/27/2020 021 Overview: History No H/o DM Assessment Controlled Plan SSI Discharge planning issues 09/18/2020 Overview: This is a 80 year old male from [place], [place]. No skilled needs anticipated. OPD appt scheduled for 10/10 Appt with local Cards- Dr. Victor Manuel Zhou's on 10/20 at 2;30 pm Appt with pcp- Dr. Rebecca Dinh's [employer] on 10/23/2020 at 12:40 pm. Preop testing 09/18/2020 10/01/2020 Overview: [facility] Surgeon: Nasim Fleming M.D. COVID-19 Neg 09/21/2020 Informed Consent Completed: yes STS Score: CAD: No Is intended procedure a CABG: No - is a beta alvaro ordered? No - reason: ni H & P completed: Yes PA/LAT: completed CT: Completed--[facility] 08/19/20 MRI: N/A LE US: N/A Cath: Yes - reviewed: yes 09/19/20 EKG: Completed Is patient on Amiodarone? No Echo: completed EF %: 62 PI's: N/A --NO PIs in [facility]CI PER DR. FLEMING REQUEST Carotid: N/A Mapping: N/A Dental: CLEARED seen in [facility] and cleared pt saw Dentist on 08/30/20 and was cleared Dentist wrote 02/01/20 as last exam but signed the form on 08/30/20 as cleared PFT's: N/A Recent Labs 09/18/20 0958 WBC 7.37 HB 13.7 HCT 42.5 PLT 193 INR 1.0 CREAT 1.11 UA: normal HCG:N/A ABO/ABO Confirmed: yes ABO/RH(D) Date Value Ref Range Status 09/25/2020 O POSITIVE Final Blood ordered: Yes DOS BLOOD ORDER 1 unit(s) PRBCS PT IS A REDO OHS 2003 SA Swab: Yes - results: Negative Last Dose of Anticoagulation: ASA & CoQ10 09/16/20 Op Note: yes, 2003 [facility] Pacemaker Check: N/A Implants: yes: REDO OHS SURGERY POST OP OHS SURGICAL CHANGES sternal wires Consults: NA DM: No Cardiac Surgical prep: yes SIGNATURE: Paty Goyal RN DATE of SERVICE: 09/18/2020 TIME of SERVICE: 12:12 PM CHECKED BY: CELINA 09/26/2020 Medicare annual wellness visit, subsequent 02/27/2015 10/10/2022 Onychomycosis 07/01/2012 10/10/2022 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 Tinea pedis 07/01/2012 10/10/2022 Medicare annual wellness visit, subsequent 02/24/2012 02/27/2015 Solar Lentigo and Solar Lentigines 07/17/2011 10/10/2022 Castro angiomas 07/17/2011 10/10/2022 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 10/10/2022 Xerosis cutis 01/13/2011 10/10/2022 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 06/08/2008 03/13/2009 XEROSIS///SEBACEOUS GLAND DIS NEC 03/11/2008 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) 09/18/2006 10/10/2022 ACTINIC DAMAGE//CHR SOLAR SKIN DAMAGE 09/18/2006 06/17/2013 Irritated//Inflamed Seborrheic Keratosis 09/18/2006 10/10/2022 Skin Tag Papilloma 09/18/2006 Neoplasm of Uncertain Behavior (NUB) 01/23/2006 10/10/2022 SURGICAL SCARS & FIBROSIS OF SKIN 01/23/2006 10/10/2022 SOLAR LENTIGINES///DYSCHROMIA OTHER 01/23/2006 06/17/2013 Benign neoplasm of skin of t runk, except scrotum 01/23/2006 06/17/2013 OTHER UNSPEC SLEEP APNEA 10/26/200412/2013 Aortic valve disorder 05/30/20032017 Essential hypertension 05/30/200309/28 Overview: History: On multiple agents at home Assessment: hypotensive Plan: Hold antihypertensives Last Assessment & Plan: BP is well controlled on current regimen of medicines which is tolerated well. No significant side effects documented as of this encounter (statuses as of 12/13/2022) [facility]07-26-2021 History of Past illness Narrative* Problem Noted Date Diagnosed Date Resolved Date Encounter for support and co ordination of transition of care 10/02/2020 10/10/2022 Overview: Indication for Surgery: Preop LVEF: 62% RVF: Normal. mild MAC. 1+MR. 3-4+TR. Trace AR pkmn grad48/27 mmHg. Aorta dilated. EKG: SB with PVC Cath: focal stenosis of mid LCx. Otherwise coronary arteries are free of significant disease Cards: Dr. 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 A/P of Major Active Problems Transfer to SDU on 09/30 (pod 3) - s/p redo arch FET, AVR, TVr, Asc Aorta replacement- CTA completed 10/02/2020. Echo completed: EF 55%, RV mild. no AR pkmn grad 19/10 mmHg. - Post op PAFib- In ICU converted to SR with amio gtt, Amio PO, BB. Converted back to Afib CVR 10/03/2020- PAfib. continue Metop, amio taper. only Aspirin, no other Anti-coag per Dr Fleming - Renal (baseline SCr 1.06-1.23 )- SCr 1.34- slightly increased. hold diuretic today. - Thrombocytopenia- Plt count WNL. continue asa and sq heparin. [facility] [place], [place]. evaluated by Cardiac rehab. no skilled needs anticipated. OPD appt requested. pcp, local cards appt scheduled. Prefers to f/u with local advertising supervisor d/t distance. f/u appt with Dr. Fleming in 3 months requested with CTA Discharge Planning: Anticipated Discharge Date: 10/04 Barriers to Discharge: No Barriers to Discharge Care Management Discharge Needs: none Fluid overload 09/29/2020 10/02/2020 Overview: History Post op. Assessment Intake/Output Summary (Last 24 hours) at 09/30/2020 1210 Last data filed at 09/30/2020 1130 Gross per 24 hour Intake 871 ml Output 2750 ml Net -1879 ml Plan Cont Bumex per C TS Atelectasis 09/27/2020 10/10/2022 Overview: History: Grade 1 Extubated NOS Assessment: on room air, SpO2 >95%. CTA with small bilateral pleural effusions, bibasilar atelectasis. Plan: Encourage PEP, deep breathing & ambulation. Postoperative hypotension 09/27/2020 Overview: History Post op Assessment Levo gtt Plan Wean Levo gtt as able Stress hyperglycemia 09/27/2020 021 Overview: History No H/o DM Assessment Controlled Plan SSI Discharge planning issues 09/18/2020 Overview: This is a 80 year old male from [place], [place]. No skilled needs anticipated. OPD appt scheduled for 10/10 Appt with local Cards- Dr. Victor Manuel Zhou's on 10/20 at 2;30 pm Appt with pcp- Dr. Rebecca Dinh's [employer] on 10/23/2020 at 12:40 pm. Preop testing 09/18/2020 10/01/2020 Overview[facility] Surgeon: Nasim Fleming M.D. COVID-19 Neg 09/21/2020 Informed Consent Completed: yes STS Score: CAD: No Is intended procedure a CABG: No - is a beta alvaro ordered? No - reason: ni H & P completed: Yes PA/LAT: completed CT: Completed--[facility] 08/19/20 MRI: N/A LE US: N/A Cath: Yes - reviewed: yes 09/19/20 EKG: Completed Is patient on Amiodarone? No Echo: completed EF %: 62 PI's: N/A --NO PIs in TCI PER DR. FLEMING REQUEST Carotid: N/A Mapping: N/A Dental: CLEARED seen in TCI and cleared pt saw Dentist on 08/30/20 and was cleared Dentist wrote 02/01/20 as last exam but signed the form on 08/30/20 as cleared PFT's: N/A Recent Labs 09/18/20 0958 WBC 7.37 HB 13.7 HCT 42.5 PLT 193 INR 1.0 CREAT 1.11 UA: normal HCG:N/A ABO/ABO Confirmed: yes ABO/RH(D) Date Value Ref Range Status 09/25/2020 O POSITIVE Final Blood ordered: Yes DOS BLOOD ORDER 1 unit(s) PRBCS PT IS A REDO OHS 2003 SA Swab: Yes - results: Negative Last Dose of Anticoagulation: ASA & CoQ10 09/16/20 Op Note: yes, 2003 [facility] Pacemaker Check: N/A Implants: yes: REDO O[facility] SURGERY POST OP OHS SURGICAL CHANGES sternal wires Consults: NA DM: No Cardiac Surgical prep: yes SIGNATURE: Paty Goyal RN DATE of SERVICE: 09/18/2020 TIME of SERVICE: 12:12 PM CHECKED BY: CELINA 09/26/2020 Medicare annual wellness visit, subsequent 02/27/2015 10/10/2022 Onychomycosis 07/01/2012 10/10/2022 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 Tinea pedis 07/01/2012 10/10/2022 Medicare annual wellness visit, subsequent 02/24/2012 02/27/2015 Solar Lentigo and Solar Lentigines 07/17/2011 10/10/2022 Castro angiomas 07/17/2011 10/10/2022 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 10/10/2022 Xerosis cutis 01/13/2011 10/10/2022 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 06/08/2008 03/13/2009 XEROSIS///SEBACEOUS GLAND DIS NEC 03/11/2008 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) 09/18/2006 10/10/2022 ACTINIC DAMAGE//CHR SOLAR SKIN DAMAGE 09/18/2006 06/17/2013 Irritated//Inflamed Seborrheic Keratosis 09/18/2006 10/10/2022 Skin Tag Papilloma 09/18/2006 Neoplasm of Uncertain Behavior (NUB) 01/23/2006 10/10/2022 SURGICAL SCARS & FIBROSIS OF SKIN 01/23/2006 10/10/2022 SOLAR LENTIGINES///DYSCHROMIA OTHER 01/23/2006 06/17/2013 Benign neoplasm of skin of t runk, except scrotum 01/23/2006 06/17/2013 OTHER UNSPEC SLEEP APNEA 10/26/200412/2013 Aortic valve disorder 05/30/20032017 Essential hypertension 05/30/200309/28 Overview: History: On multiple agents at home Assessment: hypotensive Plan: Hold antihypertensives Last Assessment & Plan: BP is well controlled on current regimen of medicines which is tolerated well. No significant side effects documented as of this encounter (statuses as of 12/18/2022) [facility]07-26-[facility]21 History of Past illness Narrative* Problem Noted Date Diagnosed Date Resolved Date Encounter for support and co ordination of transition of care 10/02/2020 10/10/2022 Overview: Indication for Surgery: Preop LVEF: 62% RVF: Normal. mild MAC. 1+MR. 3-4+TR. Trace AR pkmn grad48/27 mmHg. Aorta dilated. EKG: SB with PVC Cath: focal stenosis of mid LCx. Otherwise coronary arteries are free of significant disease Cards: Dr. 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 A/P of Major Active Problems Transfer to SDU on 09/30 (pod 3) - s/p redo arch FET, AVR, TVr, Asc Aorta replacement- CTA completed 10/02/2020. Echo completed: EF 55%, RV mild. no AR pkmn grad 19/10 mmHg. - Post op PAFib- In ICU converted to SR with amio gtt, Amio PO, BB. Converted back to Afib CVR 10/03/2020- PAfib. continue Metop, amio taper. only Aspirin, no other Anti-coag per Dr Fleming - Renal (baseline SCr 1.06-1.23 )- SCr 1.34- slightly increased. hold diuretic today. - Thrombocytopenia- Plt count WNL. continue asa and sq heparin. Dispo- [place], [place]. evaluated by Cardiac rehab. no skilled needs anticipated. OPD appt requested. pcp, local cards appt scheduled. Prefers to f/u with local advertising supervisor d/t distance. f/u appt with Dr. Fleming in 3 months requested with CTA Discharge Planning: Anticipated Discharge Date: 10/04 Barriers to Discharge: No Barriers to Discharge Care Management Discharge Needs: none Fluid overload 09/29/2020 10/02/2020 Overview: History Post op. Assessment Intake/Output Summary (Last 24 hours) at 09/30/2020 1210 Last data filed at 09/30/2020 1130 Gross per 24 hour Intake 871 ml Output 2750 ml Net -1879 ml Plan Cont Bumex per C TS Atelectasis 09/27/2020 10/10/2022 Overview: History: Grade 1 Extubated NOS Assessment: on room air, SpO2 >95%. CTA with small bilateral pleural effusions, bibasilar atelectasis. Plan: Encourage PEP, deep breathing & ambulation. Postoperative hypotension 09/27/2020 Overview: History Post op Assessment Levo gtt Plan Wean Levo gtt as able Stress hyperglycemia 09/27/202010/02/ 021 Overview: History No H/o DM Assessment Controlled Plan SSI Discharge planning issues 09/18/2020 Overview: This is a 80 year old male from [place], [place]. No skilled needs anticipated. OPD appt scheduled for 10/10 Appt with local Cards- Dr. Victor Manuel Zhou's on 10/20 at 2;30 pm Appt with pcp- Dr. Rebecca Dinh's [employer] on 10/23/2020 at 12:40 pm. Preop testing 09/18/2020 10/01/2020 Overview: [facility] Surgeon: Nasim Fleming M.D. COVID-19 Neg 09/21/2020 Informed Consent Completed: yes STS Score: CAD: No Is intended procedure a CABG: No - is a beta alvaro ordered? No - reason: ni H & P completed: Yes PA/LAT: completed CT: Completed--[facility] 08/19/20 MRI: N/A LE US: N/A Cath: Yes - reviewed: yes 09/19/20 EKG: Completed Is patient on Amiodarone? No Echo: completed EF %: 62 PI's: N/A --NO PIs in TCI PER DR. FLEMING REQUEST Carotid: N/A Mapping: N/A Dental: CLEARED seen in TCI and cleared pt saw Dentist on 08/30/20 and was cleared Dentist wrote 02/01/20 as last exam but signed the form on 08/30/20 as cleared PFT's: N/A Recent Labs 09/18/20 0958 WBC 7.37 HB 13.7 HCT 42.5 PLT 193 INR 1.0 CREAT 1.11 UA: normal HCG:N/A ABO/ABO Confirmed: yes ABO/RH(D) Date Value Ref Range Status 09/25/2020 O POSITIVE Final Blood ordered: Yes DOS BLOOD ORDER 1 unit(s) PRBCS PT IS A REDO OHS 2003 SA Swab: Yes - results: Negative Last Dose of Anticoagulation: ASA & CoQ10 09/16/20 Op Note: yes, 2003 [facility] Pacemaker Check: N/A Implants: yes: REDO O[facility] SURGERY POST OP OHS SURGICAL CHANGES sternal wires Consults: NA DM: No Cardiac Surgical prep: yes SIGNATURE: Paty Goyal RN DATE of SERVICE: 09/18/2020 TIME of SERVICE: 12:12 PM CHECKED BY: RE 09/26/2020 Medicare annual wellness visit, subsequent 02/27/2015 10/10/2022 Onychomycosis 07/01/2012 10/10/2022 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 Tinea pedis 07/01/2012 10/10/2022 Medicare annual wellness visit, subsequent 02/24/2012 02/27/2015 Solar Lentigo and Solar Lentigines 07/17/2011 10/10/2022 Castro angiomas 07/17/2011 10/10/2022 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 10/10/2022 Xerosis cutis 01/13/2011 10/10/2022 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 06/08/2008 03/13/2009 XEROSIS///SEBACEOUS GLAND DIS NEC 03/11/2008 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) 09/18/2006 10/10/2022 ACTINIC DAMAGE//CHR SOLAR SKIN DAMAGE 09/18/2006 06/17/2013 Irritated//Inflamed Seborrheic Keratosis 09/18/2006 10/10/2022 Skin Tag Papilloma 09/18/2006 Neoplasm of Uncertain Behavior (NUB) 01/23/2006 10/10/2022 SURGICAL SCARS & FIBROSIS OF SKIN 01/23/2006 10/10/2022 SOLAR LENTIGINES///DYSCHROMIA OTHER 01/23/2006 06/17/2013 Benign neoplasm of skin of t runk, except scrotum 01/23/2006 06/17/2013 OTHER UNSPEC SLEEP APNEA 10/26/200412/2013 Aortic valve disorder 05/30/20032017 Essential hypertension 05/30/200309/28 Overview: History: On multiple agents at home Assessment: hypotensive Plan: Hold antihypertensives Last Assessment & Plan: BP is well controlled on current regimen of medicines which is tolerated well. No significant side effects documented as of this encounter (statuses as of 12/31/2022) [facility] History of Past illness Narrative* Problem Noted Date Diagnosed Date Resolved Date Encounter for support and co ordination of transition of care 10/02/2020 10/10/2022 Overview: Indication for Surgery: Preop LVEF: 62% RVF: Normal. mild MAC. 1+MR. 3-4+TR. Trace AR pkmn grad48/27 mmHg. Aorta dilated. EKG: SB with PVC Cath: focal stenosis of mid LCx. Otherwise coronary arteries are free of significant disease Cards: Dr. 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 A/P of Major Active Problems Transfer to SDU on 09/30 (pod 3) - s/p redo arch FET, AVR, TVr, Asc Aorta replacement- CTA completed 10/02/2020. Echo completed: EF 55%, RV mild. no AR pkmn grad 19/10 mmHg. - Post op PAFib- In ICU converted to SR with amio gtt, Amio PO, BB. Converted back to Afib CVR 10/03/2020- PAfib. continue Metop, amio taper. only Aspirin, no other Anti-coag per Dr Fleming - Renal (baseline SCr 1.06-1.23 )- SCr 1.34- slightly increased. hold diuretic today. - Thrombocytopenia- Plt count WNL. continue asa and sq heparin. Dispo- [place], [place]. evaluated by Cardiac rehab. no skilled needs anticipated. OPD appt requested. pcp, local cards appt scheduled. Prefers to f/u with local advertising supervisor d/t distance. f/u appt with Dr. Fleming in 3 months requested with CTA Discharge Planning: Anticipated Discharge Date: 10/04 Barriers to Discharge: No Barriers to Discharge Care Management Discharge Needs: none Fluid overload 09/29/2020 10/02/2020 Overview: History Post op. Assessment Intake/Output Summary (Last 24 hours) at 09/30/2020 1210 Last data filed at 09/30/2020 1130 Gross per 24 hour Intake 871 ml Output 2750 ml Net -1879 ml Plan Cont Bumex per C TS Atelectasis 09/27/2020 10/10/2022 Overview: History: Grade 1 Extubated NOS Assessment: on room air, SpO2 >95%. CTA with small bilateral pleural effusions, bibasilar atelectasis. Plan: Encourage PEP, deep breathing & ambulation. Postoperative hypotension 09/27/2020 Overview: History Post op Assessment Levo gtt Plan Wean Levo gtt as able Stress hyperglycemia 09/27/2020 021 Overview: History No H/o DM Assessment Controlled Plan SSI Discharge planning issues 09/18/2020 Overview: This is a 80 year old male from [place], [place]. No skilled needs anticipated. OPD appt scheduled for 10/10 Appt with local [employer]- Dr. Victor Manuel Zhou's on 10/20 at 2;30 pm Appt with pcp- Dr. Rebecca Dinh's [employer] on 10/23/2020 at 12:40 pm. Preop testing 09/18/2020 10/01/2020 Overview: [facility] PRE[facility] Surgeon: Nasim Fleming M.D. COVID-19 Neg 09/21/2020 Informed Consent Completed: yes STS Score: CAD: No Is intended procedure a CABG: No - is a beta alvaro ordered? No - reason: ni H & P completed: Yes PA/LAT: completed CT: Completed--OS[facility] 08/19/20 MRI: N/A LE US: N/A Cath: Yes - reviewed: yes 09/19/20 EKG: Completed Is patient on Amiodarone? No Echo: completed EF %: 62 PI's: N/A --NO PIs in TCI PER DR. FLEMING REQUEST Carotid: N/A Mapping: N/A Dental: CLEARED seen in [facility] and cleared pt saw Dentist on 08/30/20 and was cleared Dentist wrote 02/01/20 as last exam but signed the form on 08/30/20 as cleared PFT's: N/A Recent Labs 09/18/20 0958 WBC 7.37 HB 13.7 HCT 42.5 PLT 193 INR 1.0 CREAT 1.11 UA: normal HCG:N/A ABO/ABO Confirmed: yes ABO/RH(D) Date Value Ref Range Status 09/25/2020 O POSITIVE Final Blood ordered: Yes DOS BLOOD ORDER 1 unit(s) PRBCS PT IS A REDO OHS 2003 SA Swab: Yes - results: Negative Last Dose of Anticoagulation: ASA & CoQ10 09/16/20 Op Note: yes, 2003 [facility] Pacemaker Check: N/A Implants: yes: REDO [facility] SURGERY POST OP OHS SURGICAL CHANGES sternal wires Consults: NA DM: No Cardiac Surgical prep: yes SIGNATURE: Paty Goyal RN DATE of SERVICE: 09/18/2020 TIME of SERVICE: 12:12 PM CHECKED BY: CELINA 09/26/2020 Medicare annual wellness visit, subsequent 02/27/2015 10/10/2022 Onychomycosis 07/01/2012 10/10/2022 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 Tinea pedis 07/01/2012 10/10/2022 Medicare annual wellness visit, subsequent 02/24/2012 02/27/2015 Solar Lentigo and Solar Lentigines 07/17/2011 10/10/2022 Castro angiomas 07/17/2011 10/10/2022 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 10/10/2022 Xerosis cutis 01/13/2011 10/10/2022 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 06/08/2008 03/13/2009 XEROSIS///SEBACEOUS GLAND DIS NEC 03/11/2008 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) 09/18/2006 10/10/2022 ACTINIC DAMAGE//CHR SOLAR SKIN DAMAGE 09/18/2006 06/17/2013 Irritated//Inflamed Seborrheic Keratosis 09/18/2006 10/10/2022 Skin Tag Papilloma 09/18/2006 Neoplasm of Uncertain Behavior (NUB) 01/23/2006 10/10/2022 SURGICAL SCARS & FIBROSIS OF SKIN 01/23/2006 10/10/2022 SOLAR LENTIGINES///DYSCHROMIA OTHER 01/23/2006 06/17/2013 Benign neoplasm of skin of t runk, except scrotum 01/23/2006 06/17/2013 OTHER UNSPEC SLEEP APNEA 10/26/200412/2013 Aortic valve disorder 05/30/20032017 Essential hypertension 05/30/200309/28 Overview: History: On multiple agents at home Assessment: hypotensive Plan: Hold antihypertensives Last Assessment & Plan: BP is well controlled on current regimen of medicines which is tolerated well. No significant side effects documented as of this encounter (statuses as of 01/24/2023) [facility] History of Past illness Narrative* Problem Noted Date Diagnosed Date Resolved Date Encounter for support and co ordination of transition of care 10/02/2020 10/10/2022 Overview: Indication for Surgery: Preop LVEF: 62% RVF: Normal. mild MAC. 1+MR. 3-4+TR. Trace AR pkmn grad48/27 mmHg. Aorta dilated. EKG: SB with PVC Cath: focal stenosis of mid LCx. Otherwise coronary arteries are free of significant disease Cards: Dr. 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 A/P of Major Active Problems Transfer to SDU on 09/30 (pod 3) - s/p redo arch FET, AVR, TVr, Asc Aorta replacement- CTA completed 10/02/2020. Echo completed: EF 55%, RV mild. no AR pkmn grad 19/10 mmHg. - Post op PAFib- In ICU converted to SR with amio gtt, Amio PO, BB. Converted back to Afib CVR 10/03/2020- PAfib. continue Metop, amio taper. only Aspirin, no other Anti-coag per Dr Fleming - Renal (baseline SCr 1.06-1.23 )- SCr 1.34- slightly increased. hold diuretic today. - Thrombocytopenia- Plt count WNL. continue asa and sq heparin. Dispo- [place], [place]. evaluated by Cardiac rehab. no skilled needs anticipated. OPD appt requested. pcp, local cards appt scheduled. Prefers to f/u with local advertising supervisor d/t distance. f/u appt with Dr. Fleming in 3 months requested with CTA Discharge Planning: Anticipated Discharge Date: 10/04 Barriers to Discharge: No Barriers to Discharge Care Management Discharge Needs: none Fluid overload 09/29/2020 10/02/2020 Overview: History Post op. Assessment Intake/Output Summary (Last 24 hours) at 09/30/2020 1210 Last data filed at 09/30/2020 1130 Gross per 24 hour Intake 871 ml Output 2750 ml Net -1879 ml Plan Cont Bumex per C TS Atelectasis 09/27/2020 10/10/2022 Overview: History: Grade 1 Extubated NOS Assessment: on room air, SpO2 >95%. CTA with small bilateral pleural effusions, bibasilar atelectasis. Plan: Encourage PEP, deep breathing & ambulation. Postoperative hypotension 09/27/2020 Overview: History Post op Assessment Levo gtt Plan Wean Levo gtt as able Stress hyperglycemia 09/27/2020 021 Overview: History No H/o DM Assessment Controlled Plan SSI Discharge planning issues 09/18/2020 Overview: This is a 80 year old male from [place], [place]. No skilled needs anticipated. OPD appt scheduled for 10/10 Appt with local Cards- Dr. Victor Manuel Zhou's on 10/20 at 2;30 pm Appt with pcp- Dr. Rebecca Dinh's [employer] on 10/23/2020 at 12:40 pm. Preop testing 09/18/2020 10/01/2020 Overview: [facility] PRE[facility] Surgeon: Nasim Fleming M.D. COVID-19 Neg 09/21/2020 Informed Consent Completed: yes STS Score: CAD: No Is intended procedure a CABG: No - is a beta alvaro ordered? No - reason: ni H & P completed: Yes PA/LAT: completed CT: Completed--[facility] 08/19/20 MRI: N/A LE US: N/A Cath: Yes - reviewed: yes 09/19/20 EKG: Completed Is patient on Amiodarone? No Echo: completed EF %: 62 PI's: N/A --NO PIs in TCI PER DR. FLEMING REQUEST Carotid: N/A Mapping: N/A Dental: CLEARED seen in [facility] and cleared pt saw Dentist on 08/30/20 and was cleared Dentist wrote 02/01/20 as last exam but signed the form on 08/30/20 as cleared PFT's: N/A Recent Labs 09/18/20 0958 WBC 7.37 HB 13.7 HCT 42.5 PLT 193 INR 1.0 CREAT 1.11 UA: normal HCG:N/A ABO/ABO Confirmed: yes ABO/RH(D) Date Value Ref Range Status 09/25/2020 O POSITIVE Final Blood ordered: Yes DOS BLOOD ORDER 1 unit(s) PRBCS PT IS A REDO OHS 2003 SA Swab: Yes - results: Negative Last Dose of Anticoagulation: ASA & CoQ10 09/16/20 Op Note: yes, 2003 [facility] Pacemaker Check: N/A Implants: yes: REDO OHS SURGERY POST OP OHS SURGICAL CHANGES sternal wires Consults: NA DM: No Cardiac Surgical prep: yes SIGNATURE: Paty Goyal RN DATE of SERVICE: 09/18/2020 TIME of SERVICE: 12:12 PM CHECKED BY: CELINA 09/26/2020 Medicare annual wellness visit, subsequent 02/27/2015 10/10/2022 Onychomycosis 07/01/2012 10/10/2022 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 Tinea pedis 07/01/2012 10/10/2022 Medicare annual wellness visit, subsequent 02/24/2012 02/27/2015 Solar Lentigo and Solar Lentigines 07/17/2011 10/10/2022 Castro angiomas 07/17/2011 10/10/2022 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 10/10/2022 Xerosis cutis 01/13/2011 10/10/2022 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 06/08/2008 03/13/2009 XEROSIS///SEBACEOUS GLAND DIS NEC 03/11/2008 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) 09/18/2006 10/10/2022 ACTINIC DAMAGE//CHR SOLAR SKIN DAMAGE 09/18/2006 06/17/2013 Irritated//Inflamed Seborrheic Keratosis 09/18/2006 10/10/2022 Skin Tag Papilloma 09/18/2006 Neoplasm of Uncertain Behavior (NUB) 01/23/2006 10/10/2022 SURGICAL SCARS & FIBROSIS OF SKIN 01/23/2006 10/10/2022 SOLAR LENTIGINES///DYSCHROMIA OTHER 01/23/2006 06/17/2013 Benign neoplasm of skin of t runk, except scrotum 01/23/2006 06/17/2013 OTHER UNSPEC SLEEP APNEA 10/26/200412/2013 Aortic valve disorder 05/30/20032017 Essential hypertension 05/30/200309/28 Overview: History: On multiple agents at home Assessment: hypotensive Plan: Hold antihypertensives Last Assessment & Plan: BP is well controlled on current regimen of medicines which is tolerated well. No significant side effects documented as of this encounter (statuses as of 01/24/2023) [facility]07-26-2021 History of Past illness Narrative* Problem Noted Date Diagnosed Date Resolved Date Encounter for support and co ordination of transition of care 10/02/2020 10/10/2022 Overview: Indication for Surgery: Preop LVEF: 62% RVF: Normal. mild MAC. 1+MR. 3-4+TR. Trace AR pkmn grad48/27 mmHg. Aorta dilated. EKG: SB with PVC Cath: focal stenosis of mid LCx. Otherwise coronary arteries are free of significant disease Cards: Dr. 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 A/P of Major Active Problems Transfer to SDU on 09/30 (pod 3) - s/p redo arch FET, AVR, TVr, Asc Aorta replacement- CTA completed 10/02/2020. Echo completed: EF 55%, RV mild. no AR pkmn grad 19/10 mmHg. - Post op PAFib- In ICU converted to SR with amio gtt, Amio PO, BB. Converted back to Afib CVR 10/03/2020- PAfib. continue Metop, amio taper. only Aspirin, no other Anti-coag per Dr Fleming - Renal (baseline SCr 1.06-1.23 )- SCr 1.34- slightly increased. hold diuretic today. - Thrombocytopenia- Plt count WNL. continue asa and sq heparin. Dispo- [place], [place]. evaluated by Cardiac rehab. no skilled needs anticipated. OPD appt requested. pcp, local cards appt scheduled. Prefers to f/u with local advertising supervisor d/t distance. f/u appt with Dr. Fleming in 3 months requested with CTA Discharge Planning: Anticipated Discharge Date: 10/04 Barriers to Discharge: No Barriers to Discharge Care Management Discharge Needs: none Fluid overload 09/29/2020 10/02/2020 Overview: History Post op. Assessment Intake/Output Summary (Last 24 hours) at 09/30/2020 1210 Last data filed at 09/30/2020 1130 Gross per 24 hour Intake 871 ml Output 2750 ml Net -1879 ml Plan Cont Bumex per C TS Atelectasis 09/27/2020 10/10/2022 Overview: History: Grade 1 Extubated NOS Assessment: on room air, SpO2 >95%. CTA with small bilateral pleural effusions, bibasilar atelectasis. Plan: Encourage PEP, deep breathing & ambulation. Postoperative hypotension 09/27/2020 Overview: History Post op Assessment Levo gtt Plan Wean Levo gtt as able Stress hyperglycemia 09/27/2020 021 Overview: History No H/o DM Assessment Controlled Plan SSI Discharge planning issues 09/18/2020 Overview: This is a 80 year old male from [place], [place]. No skilled needs anticipated. OPD appt scheduled for 10/10 Appt with local Cards- Dr. Victor Manuel Zhou's on 10/20 at 2;30 pm Appt with pcp- Dr. Rebecca Dinh's [employer] on 10/23/2020 at 12:40 pm. Preop testing 09/18/2020 10/01/2020 Overview[facility] Surgeon: Nasim Fleming M.D. COVID-19 Neg 09/21/2020 Informed Consent Completed: yes STS Score: CAD: No Is intended procedure a CABG: No - is a beta alvaro ordered? No - reason: ni H & P completed: Yes PA/LAT: completed CT: Completed--[facility] 08/19/20 MRI: N/A LE US: N/A Cath: Yes - reviewed: yes 09/19/20 EKG: Completed Is patient on Amiodarone? No Echo: completed EF %: 62 PI's: N/A --NO PIs in [facility] PER DR. FLEMING REQUEST Carotid: N/A Mapping: N/A Dental: CLEARED seen in [facility] and cleared pt saw Dentist on 08/30/20 and was cleared Dentist wrote 02/01/20 as last exam but signed the form on 08/30/20 as cleared PFT's: N/A Recent Labs 09/18/20 0958 WBC 7.37 HB 13.7 HCT 42.5 PLT 193 INR 1.0 CREAT 1.11 UA: normal HCG:N/A ABO/ABO Confirmed: yes ABO/RH(D) Date Value Ref Range Status 09/25/2020 O POSITIVE Final Blood ordered: Yes DOS BLOOD ORDER 1 unit(s) PRBCS PT IS A REDO [facility]HS 2003 SA Swab: Yes - results: Negative Last Dose of Anticoagulation: ASA & CoQ10 09/16/20 Op Note: yes, 2003 [facility] Pacemaker Check: N/A Implants: yes: REDO [facility] SURGERY POST OP OHS SURGICAL CHANGES sternal wires Consults: NA DM: No Cardiac Surgical prep: yes SIGNATURE: Paty Goyal RN DATE of SERVICE: 09/18/2020 TIME of SERVICE: 12:12 PM CHECKED BY: CELINA 09/26/2020 Medicare annual wellness visit, subsequent 02/27/2015 10/10/2022 Onychomycosis 07/01/2012 10/10/2022 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 Tinea pedis 07/01/2012 10/10/2022 Medicare annual wellness visit, subsequent 02/24/2012 02/27/2015 Solar Lentigo and Solar Lentigines 07/17/2011 10/10/2022 Castro angiomas 07/17/2011 10/10/2022 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 10/10/2022 Xerosis cutis 01/13/2011 10/10/2022 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 06/08/2008 03/13/2009 XEROSIS///SEBACEOUS GLAND DIS NEC 03/11/2008 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) 09/18/2006 10/10/2022 ACTINIC DAMAGE//CHR SOLAR SKIN DAMAGE 09/18/2006 06/17/2013 Irritated//Inflamed Seborrheic Keratosis 09/18/2006 10/10/2022 Skin Tag Papilloma 09/18/2006 Neoplasm of Uncertain Behavior (NUB) 01/23/2006 10/10/2022 SURGICAL SCARS & FIBROSIS OF SKIN 01/23/2006 10/10/2022 SOLAR LENTIGINES///DYSCHROMIA OTHER 01/23/2006 06/17/2013 Benign neoplasm of skin of t [place], except scrotum 01/23/2006 06/17/2013 OTHER UNSPEC SLEEP APNEA 10/26/200412/2013 Aortic valve disorder 05/30/20032017 Essential hypertension 05/30/200309/28 Overview: History: On multiple agents at home Assessment: hypotensive Plan: Hold antihypertensives Last Assessment & Plan: BP is well controlled on current regimen of medicines which is tolerated well. No significant side effects documented as of this encounter (statuses as of 01/28/2023) [facility]07-26-2021 History of Past illness Narrative* Problem Noted Date Diagnosed Date Resolved Date Encounter for support and co ordination of transition of care 10/02/2020 10/10/2022 Overview: Indication for Surgery: Preop LVEF: 62% RVF: Normal. mild MAC. 1+MR. 3-4+TR. Trace AR pkmn grad48/27 mmHg. Aorta dilated. EKG: SB with PVC Cath: focal stenosis of mid LCx. Otherwise coronary arteries are free of significant disease Cards: Dr. 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 A/P of Major Active Problems Transfer to SDU on 09/30 (pod 3) - s/p redo arch FET, AVR, TVr, Asc Aorta replacement- CTA completed 10/02/2020. Echo completed: EF 55%, RV mild. no AR pkmn grad 19/10 mmHg. - Post op PAFib- In ICU converted to SR with amio gtt, Amio PO, BB. Converted back to Afib CVR 10/03/2020- PAfib. continue Metop, amio taper. only Aspirin, no other Anti-coag per Dr Fleming - Renal (baseline SCr 1.06-1.23 )- SCr 1.34- slightly increased. hold diuretic today. - Thrombocytopenia- Plt count WNL. continue asa and sq heparin. Dispo- [place], [place]. evaluated by Cardiac rehab. no skilled needs anticipated. OPD appt requested. pcp, local cards appt scheduled. Prefers to f/u with local advertising supervisor d/t distance. f/u appt with Dr. Fleming in 3 months requested with CTA Discharge Planning: Anticipated Discharge Date: 10/04 Barriers to Discharge: No Barriers to Discharge Care Management Discharge Needs: none Fluid overload 09/29/2020 10/02/2020 Overview: History Post op. Assessment Intake/Output Summary (Last 24 hours) at 09/30/2020 1210 Last data filed at 09/30/2020 1130 Gross per 24 hour Intake 871 ml Output 2750 ml Net -1879 ml Plan Cont Bumex per C TS Atelectasis 09/27/2020 10/10/2022 Overview: History: Grade 1 Extubated NOS Assessment: on room air, SpO2 >95%. CTA with small bilateral pleural effusions, bibasilar atelectasis. Plan: Encourage PEP, deep breathing & ambulation. Postoperative hypotension 09/27/2020 Overview: History Post op Assessment Levo gtt Plan Wean Levo gtt as able Stress hyperglycemia 09/27/2020 021 Overview: History No H/o DM Assessment Controlled Plan SSI Discharge planning issues 09/18/2020 Overview: This is a 80 year old male from [place], [place]. No skilled needs anticipated. OPD appt scheduled for 10/10 Appt with local Cards- Dr. Victor Manuel Zhou's on 10/20 at 2;30 pm Appt with pcp- Dr. Rebecca Dinh's [employer] on 10/23/2020 at 12:40 pm. Preop testing 09/18/2020 10/01/2020 Overview: [facility] Surgeon: Nasim Fleming M.D. COVID-19 Neg 09/21/2020 Informed Consent Completed: yes STS Score: CAD: No Is intended procedure a CABG: No - is a beta alvaro ordered? No - reason: ni H & P completed: Yes PA/LAT: completed CT: Completed--[facility] 08/19/20 MRI: N/A LE US: N/A Cath: Yes - reviewed: yes 09/19/20 EKG: Completed Is patient on Amiodarone? No Echo: completed EF %: 62 PI's: N/A --NO PIs in [facility] PER DR. FLEMING REQUEST Carotid: N/A Mapping: N/A Dental: CLEARED seen in [facility] and cleared pt saw Dentist on 08/30/20 and was cleared Dentist wrote 02/01/20 as last exam but signed the form on 08/30/20 as cleared PFT's: N/A Recent Labs 09/18/20 0958 WBC 7.37 HB 13.7 HCT 42.5 PLT 193 INR 1.0 CREAT 1.11 UA: normal HCG:N/A ABO/ABO Confirmed: yes ABO/RH(D) Date Value Ref Range Status 09/25/2020 O POSITIVE Final Blood ordered: Yes DOS BLOOD ORDER 1 unit(s) PRBCS PT IS A REDO OHS 2003 SA Swab: Yes - results: Negative Last Dose of Anticoagulation: ASA & CoQ10 09/16/20 Op Note: yes, 2003 [facility] Pacemaker Check: N/A Implants: yes: REDO [facility] SURGERY POST OP OHS SURGICAL CHANGES sternal wires Consults: NA DM: No Cardiac Surgical prep: yes SIGNATURE: Paty Goyal RN DATE of SERVICE: 09/18/2020 TIME of SERVICE: 12:12 PM CHECKED BY: CELINA 09/26/2020 Medicare annual wellness visit, subsequent 02/27/2015 10/10/2022 Onychomycosis 07/01/2012 10/10/2022 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 Tinea pedis 07/01/2012 10/10/2022 Medicare annual wellness visit, subsequent 02/24/2012 02/27/2015 Solar Lentigo and Solar Lentigines 07/17/2011 10/10/2022 Castro angiomas 07/17/2011 10/10/2022 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 10/10/2022 Xerosis cutis 01/13/2011 10/10/2022 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 06/08/2008 03/13/2009 XEROSIS///SEBACEOUS GLAND DIS NEC 03/11/2008 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) 09/18/2006 10/10/2022 ACTINIC DAMAGE//CHR SOLAR SKIN DAMAGE 09/18/2006 06/17/2013 Irritated//Inflamed Seborrheic Keratosis 09/18/2006 10/10/2022 Skin Tag Papilloma 09/18/2006 3 Neoplasm of Uncertain Behavior (NUB) 01/23/2006 10/10/2022 SURGICAL SCARS & FIBROSIS OF SKIN 01/23/2006 10/10/2022 SOLAR LENTIGINES///DYSCHROMIA OTHER 01/23/2006 06/17/2013 Benign neoplasm of skin of t runk, except scrotum 01/23/2006 06/17/2013 OTHER UNSPEC SLEEP APNEA 10/26/200412/2013 Aortic valve disorder 05/30/20032017 Essential hypertension 05/30/200309/28 Overview: History: On multiple agents at home Assessment: hypotensive Plan: Hold antihypertensives Last Assessment & Plan: BP is well controlled on current regimen of medicines which is tolerated well. No significant side effects documented as of this encounter (statuses as of 02/06/2023) [facility]21 History of Past illness Narrative* Problem Noted Date Diagnosed Date Resolved Date Encounter for support and co ordination of transition of care 10/02/2020 10/10/2022 Overview: Indication for Surgery: Preop LVEF: 62% RVF: Normal. mild MAC. 1+MR. 3-4+TR. Trace AR pkmn grad48/27 mmHg. Aorta dilated. EKG: SB with PVC Cath: focal stenosis of mid LCx. Otherwise coronary arteries are free of significant disease Cards: Dr. 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 A/P of Major Active Problems Transfer to SDU on 09/30 (pod 3) - s/p redo arch FET, AVR, TVr, Asc Aorta replacement- CTA completed 10/02/2020. Echo completed: EF 55%, RV mild. no AR pkmn grad 19/10 mmHg. - Post op PAFib- In ICU converted to SR with amio gtt, Amio PO, BB. Converted back to Afib CVR 10/03/2020- PAfib. continue Metop, amio taper. only Aspirin, no other Anti-coag per Dr Fleming - Renal (baseline SCr 1.06-1.23 )- SCr 1.34- slightly increased. hold diuretic today. - Thrombocytopenia- Plt count WNL. continue asa and sq heparin. Dispo- [place], [place]. evaluated by Cardiac rehab. no skilled needs anticipated. OPD appt requested. pcp, local cards appt scheduled. Prefers to f/u with local advertising supervisor d/t distance. f/u appt with Dr. Fleming in 3 months requested with CTA Discharge Planning: Anticipated Discharge Date: 10/04 Barriers to Discharge: No Barriers to Discharge Care Management Discharge Needs: none Fluid overload 09/29/2020 10/02/2020 Overview: History Post op. Assessment Intake/Output Summary (Last 24 hours) at 09/30/2020 1210 Last data filed at 09/30/2020 1130 Gross per 24 hour Intake 871 ml Output 2750 ml Net -1879 ml Plan Cont Bumex per C TS Atelectasis 09/27/2020 10/10/2022 Overview: History: Grade 1 Extubated NOS Assessment: on room air, SpO2 >95%. CTA with small bilateral pleural effusions, bibasilar atelectasis. Plan: Encourage PEP, deep breathing & ambulation. Postoperative hypotension 09/27/2020 Overview: History Post op Assessment Levo gtt Plan Wean Levo gtt as able Stress hyperglycemia 09/27/2020 021 Overview: History No H/o DM Assessment Controlled Plan SSI Discharge planning issues 09/18/2020 Overview: This is a 80 year old male from [place], [place]. No skilled needs anticipated. OPD appt scheduled for 10/10 Appt with local Cards- Dr. Victor Manuel Freeman on 10/20 at 2;30 pm Appt with pcp- Dr. Rebecca Dinh's [employer] on 10/23/2020 at 12:40 pm. Preop testing 09/18/2020 10/01/2020 Overview: [facility] Surgeon: Nasim Fleming M.D. COVID-19 Neg 09/21/2020 Informed Consent Completed: yes STS Score: CAD: No Is intended procedure a CABG: No - is a beta alvaro ordered? No - reason: ni H & P completed: Yes PA/LAT: completed CT: Completed--[facility] 08/19/20 MRI: N/A LE US: N/A Cath: Yes - reviewed: yes 09/19/20 EKG: Completed Is patient on Amiodarone? No Echo: completed EF %: 62 PI's: N/A --NO PIs in [facility] PER DR. FLEMING REQUEST Carotid: N/A Mapping: N/A Dental: CLEARED seen in [facility] and cleared pt saw Dentist on 08/30/20 and was cleared Dentist wrote 02/01/20 as last exam but signed the form on 08/30/20 as cleared PFT's: N/A Recent Labs 09/18/20 0958 WBC 7.37 HB 13.7 HCT 42.5 PLT 193 INR 1.0 CREAT 1.11 UA: normal HCG:N/A ABO/ABO Confirmed: yes ABO/RH(D) Date Value Ref Range Status 09/25/2020 O POSITIVE Final Blood ordered: Yes DOS BLOOD ORDER 1 unit(s) PRBCS PT IS A REDO [facility] 2003 SA Swab: Yes - results: Negative Last Dose of Anticoagulation: ASA & CoQ10 09/16/20 Op Note: yes, 2003 [facility] Pacemaker Check: N/A Implants: yes: REDO [facility] SURGERY POST OP OHS SURGICAL CHANGES sternal wires Consults: NA DM: No Cardiac Surgical prep: yes SIGNATURE: Paty Goyal RN DATE of SERVICE: 09/18/2020 TIME of SERVICE: 12:12 PM CHECKED BY: CELINA 09/26/2020 Medicare annual wellness visit, subsequent 02/27/2015 10/10/2022 Onychomycosis 07/01/2012 10/10/2022 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 Tinea pedis 07/01/2012 10/10/2022 Medicare annual wellness visit, subsequent 02/24/2012 02/27/2015 Solar Lentigo and Solar Lentigines 07/17/2011 10/10/2022 Castro angiomas 07/17/2011 10/10/2022 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 10/10/2022 Xerosis cutis 01/13/2011 10/10/2022 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 06/08/2008 03/13/2009 XEROSIS///SEBACEOUS GLAND DIS NEC 03/11/2008 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) 09/18/2006 10/10/2022 ACTINIC DAMAGE//CHR SOLAR SKIN DAMAGE 09/18/2006 06/17/2013 Irritated//Inflamed Seborrheic Keratosis 09/18/2006 10/10/2022 Skin Tag Papilloma 09/18/2006 Neoplasm of Uncertain Behavior (NUB) 01/23/2006 10/10/2022 SURGICAL SCARS & FIBROSIS OF SKIN 01/23/2006 10/10/2022 SOLAR LENTIGINES///DYSCHROMIA OTHER 01/23/2006 06/17/2013 Benign neoplasm of skin of t runk, except scrotum 01/23/2006 06/17/2013 OTHER UNSPEC SLEEP APNEA 10/26/200412/2013 Aortic valve disorder 05/30/20032017 Essential hypertension 05/30/200309/28 Overview: History: On multiple agents at home Assessment: hypotensive Plan: Hold antihypertensives Last Assessment & Plan: BP is well controlled on current regimen of medicines which is tolerated well. No significant side effects documented as of this encounter (statuses as of 02/07/2023) [facility] History of Past illness Narrative* Problem Noted Date Diagnosed Date Resolved Date Encounter for support and co ordination of transition of care 10/02/2020 10/10/2022 Overview: Indication for Surgery: Preop LVEF: 62% RVF: Normal. mild MAC. 1+MR. 3-4+TR. Trace AR pkmn grad48/27 mmHg. Aorta dilated. EKG: SB with PVC Cath: focal stenosis of mid LCx. Otherwise coronary arteries are free of significant disease Cards: Dr. 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 A/P of Major Active Problems Transfer to SDU on 09/30 (pod 3) - s/p redo arch FET, AVR, TVr, Asc Aorta replacement- CTA completed 10/02/2020. Echo completed: EF 55%, RV mild. no AR pkmn grad 19/10 mmHg. - Post op PAFib- In ICU converted to SR with amio gtt, Amio PO, BB. Converted back to Afib CVR 10/03/2020- PAfib. continue Metop, amio taper. only Aspirin, no other Anti-coag per Dr Fleming - Renal (baseline SCr 1.06-1.23 )- SCr 1.34- slightly increased. hold diuretic today. - Thrombocytopenia- Plt count WNL. continue asa and sq heparin. Dispo- [place], [place]. evaluated by Cardiac rehab. no skilled needs anticipated. OPD appt requested. pcp, local cards appt scheduled. Prefers to f/u with local advertising supervisor d/t distance. f/u appt with Dr. Fleming in 3 months requested with CTA Discharge Planning: Anticipated Discharge Date: 10/04 Barriers to Discharge: No Barriers to Discharge Care Management Discharge Needs: none Fluid overload 09/29/2020 10/02/2020 Overview: History Post op. Assessment Intake/Output Summary (Last 24 hours) at 09/30/2020 1210 Last data filed at 09/30/2020 1130 Gross per 24 hour Intake 871 ml Output 2750 ml Net -1879 ml Plan Cont Bumex per C TS Atelectasis 09/27/2020 10/10/2022 Overview: History: Grade 1 Extubated NOS Assessment: on room air, SpO2 >95%. CTA with small bilateral pleural effusions, bibasilar atelectasis. Plan: Encourage PEP, deep breathing & ambulation. Postoperative hypotension 09/27/2020 Overview: History Post op Assessment Levo gtt Plan Wean Levo gtt as able Stress hyperglycemia 09/27/2020 021 Overview: History No H/o DM Assessment Controlled Plan SSI Discharge planning issues 09/18/2020 Overview: This is a 80 year old male from [place], [place]. No skilled needs anticipated. OPD appt scheduled for 10/10 Appt with local Cards- Dr. Victor Manuel Zhou's on 10/20 at 2;30 pm Appt with pcp- Dr. Rebecca Dinh's [employer] on 10/23/2020 at 12:40 pm. Preop testing 09/18/2020 10/01/2020 Overview: [facility] Surgeon: Nasim Fleming M.D. COVID-19 Neg 09/21/2020 Informed Consent Completed: yes STS Score: CAD: No Is intended procedure a CABG: No - is a beta alvaro ordered? No - reason: ni H & P completed: Yes PA/LAT: completed CT: Completed--[facility] 08/19/20 MRI: N/A LE US: N/A Cath: Yes - reviewed: yes 09/19/20 EKG: Completed Is patient on Amiodarone? No Echo: completed EF %: 62 PI's: N/A --NO PIs in TCI PER DR. FLEMING REQUEST Carotid: N/A Mapping: N/A Dental: CLEARED seen in [facility] and cleared pt saw Dentist on 08/30/20 and was cleared Dentist wrote 02/01/20 as last exam but signed the form on 08/30/20 as cleared PFT's: N/A Recent Labs 09/18/20 0958 WBC 7.37 HB 13.7 HCT 42.5 PLT 193 INR 1.0 CREAT 1.11 UA: normal HCG:N/A ABO/ABO Confirmed: yes ABO/RH(D) Date Value Ref Range Status 09/25/2020 O POSITIVE Final Blood ordered: Yes DOS BLOOD ORDER 1 unit(s) PRBCS PT IS A REDO [facility] 2003 SA Swab: Yes - results: Negative Last Dose of Anticoagulation: ASA & CoQ10 09/16/20 Op Note: yes, 2003 [facility] Pacemaker Check: N/A Implants: yes: REDO [facility] SURGERY POST OP OHS SURGICAL CHANGES sternal wires Consults: NA DM: No Cardiac Surgical prep: yes SIGNATURE: Paty Goyal RN DATE of SERVICE: 09/18/2020 TIME of SERVICE: 12:12 PM CHECKED BY: CELINA 09/26/2020 Medicare annual wellness visit, subsequent 02/27/2015 10/10/2022 Onychomycosis 07/01/2012 10/10/2022 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 Tinea pedis 07/01/2012 10/10/2022 Medicare annual wellness visit, subsequent 02/24/2012 02/27/2015 Solar Lentigo and Solar Lentigines 07/17/2011 10/10/2022 Castro angiomas 07/17/2011 10/10/2022 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 10/10/2022 Xerosis cutis 01/13/2011 10/10/2022 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 06/08/2008 03/13/2009 XEROSIS///SEBACEOUS GLAND DIS NEC 03/11/2008 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) 09/18/2006 10/10/2022 ACTINIC DAMAGE//CHR SOLAR SKIN DAMAGE 09/18/2006 06/17/2013 Irritated//Inflamed Seborrheic Keratosis 09/18/2006 10/10/2022 Skin Tag Papilloma 09/18/2006 3 Neoplasm of Uncertain Behavior (NUB) 01/23/2006 10/10/2022 SURGICAL SCARS & FIBROSIS OF SKIN 01/23/2006 10/10/2022 SOLAR LENTIGINES///DYSCHROMIA OTHER 01/23/2006 06/17/2013 Benign neoplasm of skin of t runk, except scrotum 01/23/2006 06/17/2013 OTHER UNSPEC SLEEP APNEA 10/26/200412/2013 Aortic valve disorder 05/30/20032017 Essential hypertension 05/30/200309/28 Overview: History: On multiple agents at home Assessment: hypotensive Plan: Hold antihypertensives Last Assessment & Plan: BP is well controlled on current regimen of medicines which is tolerated well. No significant side effects documented as of this encounter (statuses as of 02/07/2023) [facility]07-26-2021 History of Past illness Narrative* Problem Noted Date Diagnosed Date Resolved Date Encounter for support and co ordination of transition of care 10/02/2020 10/10/2022 Overview: Indication for Surgery: Preop LVEF: 62% RVF: Normal. mild MAC. 1+MR. 3-4+TR. Trace AR pkmn grad48/27 mmHg. Aorta dilated. EKG: SB with PVC Cath: focal stenosis of mid LCx. Otherwise coronary arteries are free of significant disease Cards: Dr. 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 A/P of Major Active Problems Transfer to SDU on 09/30 (pod 3) - s/p redo arch FET, AVR, TVr, Asc Aorta replacement- CTA completed 10/02/2020. Echo completed: EF 55%, RV mild. no AR pkmn grad 19/10 mmHg. - Post op PAFib- In ICU converted to SR with amio gtt, Amio PO, BB. Converted back to Afib CVR 10/03/2020- PAfib. continue Metop, amio taper. only Aspirin, no other Anti-coag per Dr Fleming - Renal (baseline SCr 1.06-1.23 )- SCr 1.34- slightly increased. hold diuretic today. - Thrombocytopenia- Plt count WNL. continue asa and sq heparin. Dispo- [place], [place]. evaluated by Cardiac rehab. no skilled needs anticipated. OPD appt requested. pcp, local cards appt scheduled. Prefers to f/u with local advertising supervisor d/t distance. f/u appt with Dr. Fleming in 3 months requested with CTA Discharge Planning: Anticipated Discharge Date: 10/04 Barriers to Discharge: No Barriers to Discharge Care Management Discharge Needs: none Fluid overload 09/29/2020 10/02/2020 Overview: History Post op. Assessment Intake/Output Summary (Last 24 hours) at 09/30/2020 1210 Last data filed at 09/30/2020 1130 Gross per 24 hour Intake 871 ml Output 2750 ml Net -1879 ml Plan Cont Bumex per C TS Atelectasis 09/27/2020 10/10/2022 Overview: History: Grade 1 Extubated NOS Assessment: on room air, SpO2 >95%. CTA with small bilateral pleural effusions, bibasilar atelectasis. Plan: Encourage PEP, deep breathing & ambulation. Postoperative hypotension 09/27/2020 Overview: History Post op Assessment Levo gtt Plan Wean Levo gtt as able Stress hyperglycemia 09/27/2020 021 Overview: History No H/o DM Assessment Controlled Plan SSI Discharge planning issues 09/18/2020 Overview: This is a 80 year old male from [place], [place]. No skilled needs anticipated. OPD appt scheduled for 10/10 Appt with local Cards- Dr. Victor Manuel Zhou's on 10/20 at 2;30 pm Appt with pcp- Dr. Rebecca Dinh's [employer] on 10/23/2020 at 12:40 pm. Preop testing 09/18/2020 10/01/2020 Overview[facility] Surgeon: Nasim Fleming M.D. COVID-19 Neg 09/21/2020 Informed Consent Completed: yes STS Score: CAD: No Is intended procedure a CABG: No - is a beta alvaro ordered? No - reason: ni H & P completed: Yes PA/LAT: completed CT: Completed--[facility] 08/19/20 MRI: N/A LE US: N/A Cath: Yes - reviewed: yes 09/19/20 EKG: Completed Is patient on Amiodarone? No Echo: completed EF %: 62 PI's: N/A --NO PIs in TCI PER DR. FLEMING REQUEST Carotid: N/A Mapping: N/A Dental: CLEARED seen in [facility] and cleared pt saw Dentist on 08/30/20 and was cleared Dentist wrote 11/24/20 as last exam but signed the form on 08/30/20 as cleared PFT's: N/A Recent Labs 09/18/20 0958 WBC 7.37 HB 13.7 HCT 42.5 PLT 193 INR 1.0 CREAT 1.11 UA: normal HCG:N/A ABO/ABO Confirmed: yes ABO/RH(D) Date Value Ref Range Status 09/25/2020 O POSITIVE Final Blood ordered: Yes DOS BLOOD ORDER 1 unit(s) PRBCS PT IS A REDO [facility] 2003 SA Swab: Yes - results: Negative Last Dose of Anticoagulation: ASA & CoQ10 09/16/20 Op Note: yes, 2003 [facility] Pacemaker Check: N/A Implants: yes: REDO [facility] SURGERY POST OP OHS SURGICAL CHANGES sternal wires Consults: NA DM: No Cardiac Surgical prep: yes SIGNATURE: Paty Goyal RN DATE of SERVICE: 09/18/2020 TIME of SERVICE: 12:12 PM CHECKED BY: RE 09/26/2020 Medicare annual wellness visit, subsequent 02/27/2015 10/10/2022 Onychomycosis 07/01/2012 10/10/2022 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 Tinea pedis 07/01/2012 10/10/2022 Medicare annual wellness visit, subsequent 02/24/2012 02/27/2015 Solar Lentigo and Solar Lentigines 07/17/2011 10/10/2022 Castro angiomas 07/17/2011 10/10/2022 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 10/10/2022 Xerosis cutis 01/13/2011 10/10/2022 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 06/08/2008 03/13/2009 XEROSIS///SEBACEOUS GLAND DIS NEC 03/11/2008 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) 09/18/2006 10/10/2022 ACTINIC DAMAGE//CHR SOLAR SKIN DAMAGE 09/18/2006 06/17/2013 Irritated//Inflamed Seborrheic Keratosis 09/18/2006 10/10/2022 Skin Tag Papilloma 09/18/2006 Neoplasm of Uncertain Behavior (NUB) 01/23/2006 10/10/2022 SURGICAL SCARS & FIBROSIS OF SKIN 01/23/2006 10/10/2022 SOLAR LENTIGINES///DYSCHROMIA OTHER 01/23/2006 06/17/2013 Benign neoplasm of skin of t [place], except scrotum 01/23/2006 06/17/2013 OTHER UNSPEC SLEEP APNEA 10/26/200412/2013 Aortic valve disorder 05/30/20032017 Essential hypertension 05/30/200309/28 Overview: History: On multiple agents at home Assessment: hypotensive Plan: Hold antihypertensives Last Assessment & Plan: BP is well controlled on current regimen of medicines which is tolerated well. No significant side effects documented as of this encounter (statuses as of 02/11/2023) [facility]07-26-[facility]21 History of Past illness Narrative* Problem Noted Date Diagnosed Date Resolved Date Encounter for support and co ordination of transition of care 10/02/2020 10/10/2022 Overview: Indication for Surgery: Preop LVEF: 62% RVF: Normal. mild MAC. 1+MR. 3-4+TR. Trace AR pkmn grad48/27 mmHg. Aorta dilated. EKG: SB with PVC Cath: focal stenosis of mid LCx. Otherwise coronary arteries are free of significant disease Cards: Dr. 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 A/P of Major Active Problems Transfer to SDU on 09/30 (pod 3) - s/p redo arch FET, AVR, TVr, Asc Aorta replacement- CTA completed 10/02/2020. Echo completed: EF 55%, RV mild. no AR pkmn grad 19/10 mmHg. - Post op PAFib- In ICU converted to SR with amio gtt, Amio PO, BB. Converted back to Afib CVR 10/03/2020- PAfib. continue Metop, amio taper. only Aspirin, no other Anti-coag per Dr Fleming - Renal (baseline SCr 1.06-1.23 )- SCr 1.34- slightly increased. hold diuretic today. - Thrombocytopenia- Plt count WNL. continue asa and sq heparin. [facility] [place] [place]. evaluated by Cardiac rehab. no skilled needs anticipated. OPD appt requested. pcp, local cards appt scheduled. Prefers to f/u with local advertising supervisor d/t distance. f/u appt with Dr. Fleming in 3 months requested with CTA Discharge Planning: Anticipated Discharge Date: 10/04 Barriers to Discharge: No Barriers to Discharge Care Management Discharge Needs: none Fluid overload 09/29/2020 10/02/2020 Overview: History Post op. Assessment Intake/Output Summary (Last 24 hours) at 09/30/2020 1210 Last data filed at 09/30/2020 1130 Gross per 24 hour Intake 871 ml Output 2750 ml Net -1879 ml Plan Cont Bumex per C TS Atelectasis 09/27/2020 10/10/2022 Overview: History: Grade 1 Extubated NOS Assessment: on room air, SpO2 >95%. CTA with small bilateral pleural effusions, bibasilar atelectasis. Plan: Encourage PEP, deep breathing & ambulation. Postoperative hypotension 09/27/2020 Overview: History Post op Assessment Levo gtt Plan Wean Levo gtt as able Stress hyperglycemia 09/27/2020 021 Overview: History No H/o DM Assessment Controlled Plan SSI Discharge planning issues 09/18/2020 Overview: This is a 80 year old male from [place], [place]. No skilled needs anticipated. OPD appt scheduled for 10/10 Appt with local Cards- Dr. Victor Manuel Zhou's on 10/20 at 2;30 pm Appt with pcp- Dr. Rebecca Dinh's [employer] on 10/23/2020 at 12:40 pm. Preop testing 09/18/2020 10/01/2020 Overview: [facility] Surgeon: Nasim Fleming M.D. COVID-19 Neg 09/21/2020 Informed Consent Completed: yes STS Score: CAD: No Is intended procedure a CABG: No - is a beta alavro ordered? No - reason: ni H & P completed: Yes PA/LAT: completed CT: Completed--[facility] 08/19/20 MRI: N/A LE US: N/A Cath: Yes - reviewed: yes 09/19/20 EKG: Completed Is patient on Amiodarone? No Echo: completed EF %: 62 PI's: N/A --NO PIs in TCI PER DR. FLEMING REQUEST Carotid: N/A Mapping: N/A Dental: CLEARED seen in [facility] and cleared pt saw Dentist on 08/30/20 and was cleared Dentist wrote 02/01/20 as last exam but signed the form on 08/30/20 as cleared PFT's: N/A Recent Labs 09/18/20 0958 WBC 7.37 HB 13.7 HCT 42.5 PLT 193 INR 1.0 CREAT 1.11 UA: normal HCG:N/A ABO/ABO Confirmed: yes ABO/RH(D) Date Value Ref Range Status 09/25/2020 O POSITIVE Final Blood ordered: Yes DOS BLOOD ORDER 1 unit(s) PRBCS PT IS A REDO [facility] 2003 SA Swab: Yes - results: Negative Last Dose of Anticoagulation: ASA & CoQ10 09/16/20 Op Note: yes, 2003 [facility] Pacemaker Check: N/A Implants: yes: REDO [facility] SURGERY POST OP OHS SURGICAL CHANGES sternal wires Consults: NA DM: No Cardiac Surgical prep: yes SIGNATURE: Paty Goyal RN DATE of SERVICE: 09/18/2020 TIME of SERVICE: 12:12 PM CHECKED BY: RE 09/26/2020 Medicare annual wellness visit, subsequent 02/27/2015 10/10/2022 Onychomycosis 07/01/2012 10/10/2022 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 Tinea pedis 07/01/2012 10/10/2022 Medicare annual wellness visit, subsequent 02/24/2012 02/27/2015 Solar Lentigo and Solar Lentigines 07/17/2011 10/10/2022 Castro angiomas 07/17/2011 10/10/2022 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 10/10/2022 Xerosis cutis 01/13/2011 10/10/2022 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 06/08/2008 03/13/2009 XEROSIS///SEBACEOUS GLAND DIS NEC 03/11/2008 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) 09/18/2006 10/10/2022 ACTINIC DAMAGE//CHR SOLAR SKIN DAMAGE 09/18/2006 06/17/2013 Irritated//Inflamed Seborrheic Keratosis 09/18/2006 10/10/2022 Skin Tag Papilloma 09/18/2006 Neoplasm of Uncertain Behavior (NUB) 01/23/2006 10/10/2022 SURGICAL SCARS & FIBROSIS OF SKIN 01/23/2006 10/10/2022 SOLAR LENTIGINES///DYSCHROMIA OTHER 01/23/2006 06/17/2013 Benign neoplasm of skin of t runk, except scrotum 01/23/2006 06/17/2013 OTHER UNSPEC SLEEP APNEA 10/26/200412/2013 Aortic valve disorder 05/30/20032017 Essential hypertension 05/30/200309/28 Overview: History: On multiple agents at home Assessment: hypotensive Plan: Hold antihypertensives Last Assessment & Plan: BP is well controlled on current regimen of medicines which is tolerated well. No significant side effects documented as of this encounter (statuses as of 02/14/2023) [facility] History of Past illness Narrative* Problem Noted Date Diagnosed Date Resolved Date Encounter for support and co ordination of transition of care 10/02/2020 10/10/2022 Overview: Indication for Surgery: Preop LVEF: 62% RVF: Normal. mild MAC. 1+MR. 3-4+TR. Trace AR pkmn grad48/27 mmHg. Aorta dilated. EKG: SB with PVC Cath: focal stenosis of mid LCx. Otherwise coronary arteries are free of significant disease Cards: Dr. 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 A/P of Major Active Problems Transfer to SDU on 09/30 (pod 3) - s/p redo arch FET, AVR, TVr, Asc Aorta replacement- CTA completed 10/02/2020. Echo completed: EF 55%, RV mild. no AR pkmn grad 19/10 mmHg. - Post op PAFib- In ICU converted to SR with amio gtt, Amio PO, BB. Converted back to Afib CVR 10/03/2020- PAfib. continue Metop, amio taper. only Aspirin, no other Anti-coag per Dr Fleming - Renal (baseline SCr 1.06-1.23 )- SCr 1.34- slightly increased. hold diuretic today. - Thrombocytopenia- Plt count WNL. continue asa and sq heparin. Dispo- [place], [place]. evaluated by Cardiac rehab. no skilled needs anticipated. OPD appt requested. pcp, local cards appt scheduled. Prefers to f/u with local advertising supervisor d/t distance. f/u appt with Dr. Fleming in 3 months requested with CTA Discharge Planning: Anticipated Discharge Date: 10/04 Barriers to Discharge: No Barriers to Discharge Care Management Discharge Needs: none Fluid overload 09/29/2020 10/02/2020 Overview: History Post op. Assessment Intake/Output Summary (Last 24 hours) at 09/30/2020 1210 Last data filed at 09/30/2020 1130 Gross per 24 hour Intake 871 ml Output 2750 ml Net -1879 ml Plan Cont Bumex per C TS Atelectasis 09/27/2020 10/10/2022 Overview: History: Grade 1 Extubated NOS Assessment: on room air, SpO2 >95%. CTA with small bilateral pleural effusions, bibasilar atelectasis. Plan: Encourage PEP, deep breathing & ambulation. Postoperative hypotension 09/27/2020 Overview: History Post op Assessment Levo gtt Plan Wean Levo gtt as able Stress hyperglycemia 09/27/2020 021 Overview: History No H/o DM Assessment Controlled Plan SSI Discharge planning issues 09/18/2020 Overview: This is a 80 year old male from [place], [place]. No skilled needs anticipated. OPD appt scheduled for 10/10 Appt with local Cards- Dr. Victor Manuel Zhou's on 10/20 at 2;30 pm Appt with pcp- Dr. Rebecca Dinh's [employer] on 10/23/2020 at 12:40 pm. Preop testing 09/18/2020 10/01/2020 Overview: [facility] Surgeon: Nasim Fleming M.D. COVID-19 Neg 09/21/2020 Informed Consent Completed: yes STS Score: CAD: No Is intended procedure a CABG: No - is a beta alvaro ordered? No - reason: ni H & P completed: Yes PA/LAT: completed CT: Completed--[facility] 08/19/20 MRI: N/A LE US: N/A Cath: Yes - reviewed: yes 09/19/20 EKG: Completed Is patient on Amiodarone? No Echo: completed EF %: 62 PI's: N/A --NO PIs in TCI PER DR. FLEMING REQUEST Carotid: N/A Mapping: N/A Dental: CLEARED seen in [facility] and cleared pt saw Dentist on 08/30/20 and was cleared Dentist wrote 02/01/20 as last exam but signed the form on 08/30/20 as cleared PFT's: N/A Recent Labs 09/18/20 0958 WBC 7.37 HB 13.7 HCT 42.5 PLT 193 INR 1.0 CREAT 1.11 UA: normal HCG:N/A ABO/ABO Confirmed: yes ABO/RH(D) Date Value Ref Range Status 09/25/2020 O POSITIVE Final Blood ordered: Yes DOS BLOOD ORDER 1 unit(s) PRBCS PT IS A REDO [facility] 2003 SA Swab: Yes - results: Negative Last Dose of Anticoagulation: ASA & CoQ10 09/16/20 Op Note: yes, 2003 [facility] Pacemaker Check: N/A Implants: yes: REDO [facility] SURGERY POST OP OHS SURGICAL CHANGES sternal wires Consults: NA DM: No Cardiac Surgical prep: yes SIGNATURE: Paty Goyal RN DATE of SERVICE: 09/18/2020 TIME of SERVICE: 12:12 PM CHECKED BY: RE 09/26/2020 Medicare annual wellness visit, subsequent 02/27/2015 10/10/2022 Onychomycosis 07/01/2012 10/10/2022 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 Tinea pedis 07/01/2012 10/10/2022 Medicare annual wellness visit, subsequent 02/24/2012 02/27/2015 Solar Lentigo and Solar Lentigines 07/17/2011 10/10/2022 Castro angiomas 07/17/2011 10/10/2022 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 10/10/2022 Xerosis cutis 01/13/2011 10/10/2022 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 06/08/2008 03/13/2009 XEROSIS///SEBACEOUS GLAND DIS NEC 03/11/2008 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) 09/18/2006 10/10/2022 ACTINIC DAMAGE//CHR SOLAR SKIN DAMAGE 09/18/2006 06/17/2013 Irritated//Inflamed Seborrheic Keratosis 09/18/2006 10/10/2022 Skin Tag Papilloma 09/18/2006 Neoplasm of Uncertain Behavior (NUB) 01/23/2006 10/10/2022 SURGICAL SCARS & FIBROSIS OF SKIN 01/23/2006 10/10/2022 SOLAR LENTIGINES///DYSCHROMIA OTHER 01/23/2006 06/17/2013 Benign neoplasm of skin of t runk, except scrotum 01/23/2006 06/17/2013 OTHER UNSPEC SLEEP APNEA 10/26/200412/2013 Aortic valve disorder 05/30/20032017 Essential hypertension 05/30/200309/28 Overview: History: On multiple agents at home Assessment: hypotensive Plan: Hold antihypertensives Last Assessment & Plan: BP is well controlled on current regimen of medicines which is tolerated well. No significant side effects documented as of this encounter (statuses as of 02/18/2023) [facility] History of Past illness Narrative* Problem Noted Date Diagnosed Date Resolved Date Encounter for support and co ordination of transition of care 10/02/2020 10/10/2022 Overview: Indication for Surgery: Preop LVEF: 62% RVF: Normal. mild MAC. 1+MR. 3-4+TR. Trace AR pkmn grad48/27 mmHg. Aorta dilated. EKG: SB with PVC Cath: focal stenosis of mid LCx. Otherwise coronary arteries are free of significant disease Cards: Dr. 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 A/P of Major Active Problems Transfer to SDU on 09/30 (pod 3) - s/p redo arch FET, AVR, TVr, Asc Aorta replacement- CTA completed 10/02/2020. Echo completed: EF 55%, RV mild. no AR pkmn grad 19/10 mmHg. - Post op PAFib- In ICU converted to SR with amio gtt, Amio PO, BB. Converted back to Afib CVR 10/03/2020- PAfib. continue Metop, amio taper. only Aspirin, no other Anti-coag per Dr Fleming - Renal (baseline SCr 1.06-1.23 )- SCr 1.34- slightly increased. hold diuretic today. - Thrombocytopenia- Plt count WNL. continue asa and sq heparin. Dispo- [place], [place]. evaluated by Cardiac rehab. no skilled needs anticipated. OPD appt requested. pcp, local cards appt scheduled. Prefers to f/u with local advertising supervisor d/t distance. f/u appt with Dr. Fleming in 3 months requested with CTA Discharge Planning: Anticipated Discharge Date: 10/04 Barriers to Discharge: No Barriers to Discharge Care Management Discharge Needs: none Fluid overload 09/29/2020 10/02/2020 Overview: History Post op. Assessment Intake/Output Summary (Last 24 hours) at 09/30/2020 1210 Last data filed at 09/30/2020 1130 Gross per 24 hour Intake 871 ml Output 2750 ml Net -1879 ml Plan Cont Bumex per C TS Atelectasis 09/27/2020 10/10/2022 Overview: History: Grade 1 Extubated NOS Assessment: on room air, SpO2 >95%. CTA with small bilateral pleural effusions, bibasilar atelectasis. Plan: Encourage PEP, deep breathing & ambulation. Postoperative hypotension 09/27/2020 Overview: History Post op Assessment Levo gtt Plan Wean Levo gtt as able Stress hyperglycemia 09/27/2020 021 Overview: History No H/o DM Assessment Controlled Plan SSI Discharge planning issues 09/18/2020 Overview: This is a 80 year old male from [place], [place]. No skilled needs anticipated. OPD appt scheduled for 10/10 Appt with local Cards- Dr. Victor Manuel Zhou's on 10/20 at 2;30 pm Appt with pcp- Dr. Rebecca Dinh's [employer] on 10/23/2020 at 12:40 pm. Preop testing 09/18/2020 10/01/2020 [facility] Surgeon: Nasim Fleming M.D. COVID-19 Neg 09/21/2020 Informed Consent Completed: yes STS Score: CAD: No Is intended procedure a CABG: No - is a beta alvaro ordered? No - reason: ni H & P completed: Yes PA/LAT: completed CT: Completed--[facility] 08/19/20 MRI: N/A LE US: N/A Cath: Yes - reviewed: yes 09/19/20 EKG: Completed Is patient on Amiodarone? No Echo: completed EF %: 62 PI's: N/A --NO PIs in [facility]CI PER DR. FLEMING REQUEST Carotid: N/A Mapping: N/A Dental: CLEARED seen in [facility] and cleared pt saw Dentist on 08/30/20 and was cleared Dentist wrote 02/01/20 as last exam but signed the form on 08/30/20 as cleared PFT's: N/A Recent Labs 09/18/20 0958 WBC 7.37 HB 13.7 HCT 42.5 PLT 193 INR 1.0 CREAT 1.11 UA: normal HCG:N/A ABO/ABO Confirmed: yes ABO/RH(D) Date Value Ref Range Status 09/25/2020 O POSITIVE Final Blood ordered: Yes DOS BLOOD ORDER 1 unit(s) PRBCS PT IS A REDO [facility] 2003 SA Swab: Yes - results: Negative Last Dose of Anticoagulation: ASA & CoQ10 09/16/20 Op Note: yes, 2003 [facility] Pacemaker Check: N/A Implants: yes: REDO [facility] SURGERY POST OP OHS SURGICAL CHANGES sternal wires Consults: NA DM: No Cardiac Surgical prep: yes SIGNATURE: Paty Goyal RN DATE of SERVICE: 09/18/2020 TIME of SERVICE: 12:12 PM CHECKED BY: CELINA 09/26/2020 Medicare annual wellness visit, subsequent 02/27/2015 10/10/2022 Onychomycosis 07/01/2012 10/10/2022 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 Tinea pedis 07/01/2012 10/10/2022 Medicare annual wellness visit, subsequent 02/24/2012 02/27/2015 Solar Lentigo and Solar Lentigines 07/17/2011 10/10/2022 Castro angiomas 07/17/2011 10/10/2022 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 10/10/2022 Xerosis cutis 01/13/2011 10/10/2022 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 06/08/2008 03/13/2009 XEROSIS///SEBACEOUS GLAND DIS NEC 03/11/2008 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) 09/18/2006 10/10/2022 ACTINIC DAMAGE//CHR SOLAR SKIN DAMAGE 09/18/2006 06/17/2013 Irritated//Inflamed Seborrheic Keratosis 09/18/2006 10/10/2022 Skin Tag Papilloma 09/18/2006 Neoplasm of Uncertain Behavior (NUB) 01/23/2006 10/10/2022 SURGICAL SCARS & FIBROSIS OF SKIN 01/23/2006 10/10/2022 SOLAR LENTIGINES///DYSCHROMIA OTHER 01/23/2006 06/17/2013 Benign neoplasm of skin of t runk, except scrotum 01/23/2006 06/17/2013 OTHER UNSPEC SLEEP APNEA 10/26/200412/2013 Aortic valve disorder 05/30/20032017 Essential hypertension 05/30/200309/28 Overview: History: On multiple agents at home Assessment: hypotensive Plan: Hold antihypertensives Last Assessment & Plan: BP is well controlled on current regimen of medicines which is tolerated well. No significant side effects documented as of this encounter (statuses as of 02/19/2023) [facility]07-26-2021 History of Past illness Narrative* Problem Noted Date Diagnosed Date Resolved Date Encounter for support and co ordination of transition of care 10/02/2020 10/10/2022 Overview: Indication for Surgery: Preop LVEF: 62% RVF: Normal. mild MAC. 1+MR. 3-4+TR. Trace AR pkmn grad48/27 mmHg. Aorta dilated. EKG: SB with PVC Cath: focal stenosis of mid LCx. Otherwise coronary arteries are free of significant disease Cards: Dr. 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 A/P of Major Active Problems Transfer to SDU on 09/30 (pod 3) - s/p redo arch FET, AVR, TVr, Asc Aorta replacement- CTA completed 10/02/2020. Echo completed: EF 55%, RV mild. no AR pkmn grad 19/10 mmHg. - Post op PAFib- In ICU converted to SR with amio gtt, Amio PO, BB. Converted back to Afib CVR 10/03/2020- PAfib. continue Metop, amio taper. only Aspirin, no other Anti-coag per Dr Fleming - Renal (baseline SCr 1.06-1.23 )- SCr 1.34- slightly increased. hold diuretic today. - Thrombocytopenia- Plt count WNL. continue asa and sq heparin. Dispo- [place], [place]. evaluated by Cardiac rehab. no skilled needs anticipated. OPD appt requested. pcp, local cards appt scheduled. Prefers to f/u with local advertising supervisor d/t distance. f/u appt with Dr. Fleming in 3 months requested with CTA Discharge Planning: Anticipated Discharge Date: 10/04 Barriers to Discharge: No Barriers to Discharge Care Management Discharge Needs: none Fluid overload 09/29/2020 10/02/2020 Overview: History Post op. Assessment Intake/Output Summary (Last 24 hours) at 09/30/2020 1210 Last data filed at 09/30/2020 1130 Gross per 24 hour Intake 871 ml Output 2750 ml Net -1879 ml Plan Cont Bumex per C TS Atelectasis 09/27/2020 10/10/2022 Overview: History: Grade 1 Extubated NOS Assessment: on room air, SpO2 >95%. CTA with small bilateral pleural effusions, bibasilar atelectasis. Plan: Encourage PEP, deep breathing & ambulation. Postoperative hypotension 09/27/2020 Overview: History Post op Assessment Levo gtt Plan Wean Levo gtt as able Stress hyperglycemia 09/27/2020 021 Overview: History No H/o DM Assessment Controlled Plan SSI Discharge planning issues 09/18/2020 Overview: This is a 80 year old male from [place], [place]. No skilled needs anticipated. OPD appt scheduled for 10/10 Appt with local Cards- Dr. Victor Manuel Zhou's on 10/20 at 2;30 pm Appt with pcp- Dr. Rebecca Dinh's [employer] on 10/23/2020 at 12:40 pm. Preop testing 09/18/2020 10/01/2020 Overview: [facility] Surgeon: Nasim Fleming M.D. COVID-19 Neg 09/21/2020 Informed Consent Completed: yes STS Score: CAD: No Is intended procedure a CABG: No - is a beta alvaro ordered? No - reason: ni H & P completed: Yes PA/LAT: completed CT: Completed--OS[facility] 08/19/20 MRI: N/A LE US: N/A Cath: Yes - reviewed: yes 09/19/20 EKG: Completed Is patient on Amiodarone? No Echo: completed EF %: 62 PI's: N/A --NO PIs in TCI PER DR. FLEMING REQUEST Carotid: N/A Mapping: N/A Dental: CLEARED seen in [facility] and cleared pt saw Dentist on 08/30/20 and was cleared Dentist wrote 02/01/20 as last exam but signed the form on 08/30/20 as cleared PFT's: N/A Recent Labs 09/18/20 0958 WBC 7.37 HB 13.7 HCT 42.5 PLT 193 INR 1.0 CREAT 1.11 UA: normal HCG:N/A ABO/ABO Confirmed: yes ABO/RH(D) Date Value Ref Range Status 09/25/2020 O POSITIVE Final Blood ordered: Yes DOS BLOOD ORDER 1 unit(s) PRBCS PT IS A REDO [facility] 2003 SA Swab: Yes - results: Negative Last Dose of Anticoagulation: ASA & CoQ10 09/16/20 Op Note: yes, 2003 [facility] Pacemaker Check: N/A Implants: yes: REDO [facility] SURGERY POST OP [facility] SURGICAL CHANGES sternal wires Consults: NA DM: No Cardiac Surgical prep: yes SIGNATURE: Paty Goyal RN DATE of SERVICE: 09/18/2020 TIME of SERVICE: 12:12 PM CHECKED BY: CELINA 09/26/2020 Medicare annual wellness visit, subsequent 02/27/2015 10/10/2022 Onychomycosis 07/01/2012 10/10/2022 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 Tinea pedis 07/01/2012 10/10/2022 Medicare annual wellness visit, subsequent 02/24/2012 02/27/2015 Solar Lentigo and Solar Lentigines 07/17/2011 10/10/2022 Castro angiomas 07/17/2011 10/10/2022 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 10/10/2022 Xerosis cutis 01/13/2011 10/10/2022 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 06/08/2008 03/13/2009 XEROSIS///SEBACEOUS GLAND DIS NEC 03/11/2008 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) 09/18/2006 10/10/2022 ACTINIC DAMAGE//CHR SOLAR SKIN DAMAGE 09/18/2006 06/17/2013 Irritated//Inflamed Seborrheic Keratosis 09/18/2006 10/10/2022 Skin Tag Papilloma 09/18/2006 Neoplasm of Uncertain Behavior (NUB) 01/23/2006 10/10/2022 SURGICAL SCARS & FIBROSIS OF SKIN 01/23/2006 10/10/2022 SOLAR LENTIGINES///DYSCHROMIA OTHER 01/23/2006 06/17/2013 Benign neoplasm of skin of t runk, except scrotum 01/23/2006 06/17/2013 OTHER UNSPEC SLEEP APNEA 10/26/200412/2013 Aortic valve disorder 05/30/20032017 Essential hypertension 05/30/200309/28 Overview: History: On multiple agents at home Assessment: hypotensive Plan: Hold antihypertensives Last Assessment & Plan: BP is well controlled on current regimen of medicines which is tolerated well. No significant side effects documented as of this encounter (statuses as of 02/20/2023) [facility]07-26-2021 History of Past illness Narrative* Problem Noted Date Diagnosed Date Resolved Date Encounter for support and co ordination of transition of care 10/02/2020 10/10/2022 Overview: Indication for Surgery: Preop LVEF: 62% RVF: Normal. mild MAC. 1+MR. 3-4+TR. Trace AR pkmn grad48/27 mmHg. Aorta dilated. EKG: SB with PVC Cath: focal stenosis of mid LCx. Otherwise coronary arteries are free of significant disease Cards: Dr. 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 A/P of Major Active Problems Transfer to SDU on 09/30 (pod 3) - s/p redo arch FET, AVR, TVr, Asc Aorta replacement- CTA completed 10/02/2020. Echo completed: EF 55%, RV mild. no AR pkmn grad 19/10 mmHg. - Post op PAFib- In ICU converted to SR with amio gtt, Amio PO, BB. Converted back to Afib CVR 10/03/2020- PAfib. continue Metop, amio taper. only Aspirin, no other Anti-coag per Dr Fleming - Renal (baseline SCr 1.06-1.23 )- SCr 1.34- slightly increased. hold diuretic today. - Thrombocytopenia- Plt count WNL. continue asa and sq heparin. Dispo- [place], [place]. evaluated by Cardiac rehab. no skilled needs anticipated. OPD appt requested. pcp, local cards appt scheduled. Prefers to f/u with local advertising supervisor d/t distance. f/u appt with Dr. Fleming in 3 months requested with CTA Discharge Planning: Anticipated Discharge Date: 10/04 Barriers to Discharge: No Barriers to Discharge Care Management Discharge Needs: none Fluid overload 09/29/2020 10/02/2020 Overview: History Post op. Assessment Intake/Output Summary (Last 24 hours) at 09/30/2020 1210 Last data filed at 09/30/2020 1130 Gross per 24 hour Intake 871 ml Output 2750 ml Net -1879 ml Plan Cont Bumex per C TS Atelectasis 09/27/2020 10/10/2022 Overview: History: Grade 1 Extubated NOS Assessment: on room air, SpO2 >95%. CTA with small bilateral pleural effusions, bibasilar atelectasis. Plan: Encourage PEP, deep breathing & ambulation. Postoperative hypotension 09/27/2020 Overview: History Post op Assessment Levo gtt Plan Wean Levo gtt as able Stress hyperglycemia 09/27/2020 021 Overview: History No H/o DM Assessment Controlled Plan SSI Discharge planning issues 09/18/2020 Overview: This is a 80 year old male from [place], [place]. No skilled needs anticipated. OPD appt scheduled for 10/10 Appt with local Cards- Dr. Victor Manuel Zhou's on 10/20 at 2;30 pm Appt with pcp- Dr. Rebecca Dinh's [employer] on 10/23/2020 at 12:40 pm. Preop testing 09/18/2020 10/01/2020 Overview: [facility] Surgeon: Nasim Fleming M.D. COVID-19 Neg 09/21/2020 Informed Consent Completed: yes STS Score: CAD: No Is intended procedure a CABG: No - is a beta alvaro ordered? No - reason: ni H & P completed: Yes PA/LAT: completed CT: Completed--[facility] 08/19/20 MRI: N/A LE US: N/A Cath: Yes - reviewed: yes 09/19/20 EKG: Completed Is patient on Amiodarone? No Echo: completed EF %: 62 PI's: N/A --NO PIs in TCI PER DR. FLEMING REQUEST Carotid: N/A Mapping: N/A Dental: CLEARED seen in [facility] and cleared pt saw Dentist on 08/30/20 and was cleared Dentist wrote 02/01/20 as last exam but signed the form on 08/30/20 as cleared PFT's: N/A Recent Labs 09/18/20 0958 WBC 7.37 HB 13.7 HCT 42.5 PLT 193 INR 1.0 CREAT 1.11 UA: normal HCG:N/A ABO/ABO Confirmed: yes ABO/RH(D) Date Value Ref Range Status 09/25/2020 O POSITIVE Final Blood ordered: Yes DOS BLOOD ORDER 1 unit(s) PRBCS PT IS A REDO [facility] 2003 SA Swab: Yes - results: Negative Last Dose of Anticoagulation: ASA & CoQ10 09/16/20 Op Note: yes, 2003 [facility] Pacemaker Check: N/A Implants: yes: REDO [facility] SURGERY POST OP [facility] SURGICAL CHANGES sternal wires Consults: NA DM: No Cardiac Surgical prep: yes SIGNATURE: Paty Goyal RN DATE of SERVICE: 09/18/2020 TIME of SERVICE: 12:12 PM CHECKED BY: RE 09/26/2020 Medicare annual wellness visit, subsequent 02/27/2015 10/10/2022 Onychomycosis 07/01/2012 10/10/2022 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 Tinea pedis 07/01/2012 10/10/2022 Medicare annual wellness visit, subsequent 02/24/2012 02/27/2015 Solar Lentigo and Solar Lentigines 07/17/2011 10/10/2022 Castro angiomas 07/17/2011 10/10/2022 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 10/10/2022 Xerosis cutis 01/13/2011 10/10/2022 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 06/08/2008 03/13/2009 XEROSIS///SEBACEOUS GLAND DIS NEC 03/11/2008 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) 09/18/2006 10/10/2022 ACTINIC DAMAGE//CHR SOLAR SKIN DAMAGE 09/18/2006 06/17/2013 Irritated//Inflamed Seborrheic Keratosis 09/18/2006 10/10/2022 Skin Tag Papilloma 09/18/2006 Neoplasm of Uncertain Behavior (NUB) 01/23/2006 10/10/2022 SURGICAL SCARS & FIBROSIS OF SKIN 01/23/2006 10/10/2022 SOLAR LENTIGINES///DYSCHROMIA OTHER 01/23/2006 06/17/2013 Benign neoplasm of skin of t runk, except scrotum 01/23/2006 06/17/2013 OTHER UNSPEC SLEEP APNEA 10/26/200412/2013 Aortic valve disorder 05/30/20032017 Essential hypertension 05/30/200309/28 Overview: History: On multiple agents at home Assessment: hypotensive Plan: Hold antihypertensives Last Assessment & Plan: BP is well controlled on current regimen of medicines which is tolerated well. No significant side effects documented as of this encounter (statuses as of 06/12/2023) [facility] History of Past illness Narrative* Problem Noted Date Diagnosed Date Resolved Date Encounter for support and co ordination of transition of care 10/02/2020 10/10/2022 Overview: Indication for Surgery: Preop LVEF: 62% RVF: Normal. mild MAC. 1+MR. 3-4+TR. Trace AR pkmn grad48/27 mmHg. Aorta dilated. EKG: SB with PVC Cath: focal stenosis of mid LCx. Otherwise coronary arteries are free of significant disease Cards: Dr. 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 A/P of Major Active Problems Transfer to SDU on 09/30 (pod 3) - s/p redo arch FET, AVR, TVr, Asc Aorta replacement- CTA completed 10/02/2020. Echo completed: EF 55%, RV mild. no AR pkmn grad 19/10 mmHg. - Post op PAFib- In ICU converted to SR with amio gtt, Amio PO, BB. Converted back to Afib CVR 10/03/2020- PAfib. continue Metop, amio taper. only Aspirin, no other Anti-coag per Dr Fleming - Renal (baseline SCr 1.06-1.23 )- SCr 1.34- slightly increased. hold diuretic today. - Thrombocytopenia- Plt count WNL. continue asa and sq heparin. Dispo- [place], [place]. evaluated by Cardiac rehab. no skilled needs anticipated. OPD appt requested. pcp, local cards appt scheduled. Prefers to f/u with local advertising supervisor d/t distance. f/u appt with Dr. Fleming in 3 months requested with CTA Discharge Planning: Anticipated Discharge Date: 10/04 Barriers to Discharge: No Barriers to Discharge Care Management Discharge Needs: none Fluid overload 09/29/2020 10/02/2020 Overview: History Post op. Assessment Intake/Output Summary (Last 24 hours) at 09/30/2020 1210 Last data filed at 09/30/2020 1130 Gross per 24 hour Intake 871 ml Output 2750 ml Net -1879 ml Plan Cont Bumex per C TS Atelectasis 09/27/2020 10/10/2022 Overview: History: Grade 1 Extubated NOS Assessment: on room air, SpO2 >95%. CTA with small bilateral pleural effusions, bibasilar atelectasis. Plan: Encourage PEP, deep breathing & ambulation. Postoperative hypotension 09/27/2020 Overview: History Post op Assessment Levo gtt Plan Wean Levo gtt as able Stress hyperglycemia 09/27/2020 021 Overview: History No H/o DM Assessment Controlled Plan SSI Discharge planning issues 09/18/2020 Overview: This is a 80 year old male from [place], [place]. No skilled needs anticipated. OPD appt scheduled for 10/10 Appt with local Cards- Dr. Victor Manuel Zhou's on 10/20 at 2;30 pm Appt with pcp- Dr. Rebecca Dinh's [employer] on 10/23/2020 at 12:40 pm. Preop testing 09/18/2020 10/01/2020 Overview: [facility] Surgeon: Nasim Fleming M.D. COVID-19 Neg 09/21/2020 Informed Consent Completed: yes STS Score: CAD: No Is intended procedure a CABG: No - is a beta alvaro ordered? No - reason: ni H & P completed: Yes PA/LAT: completed CT: Completed--[facility] 08/19/20 MRI: N/A LE US: N/A Cath: Yes - reviewed: yes 09/19/20 EKG: Completed Is patient on Amiodarone? No Echo: completed EF %: 62 PI's: N/A --NO PIs in TCI PER DR. FLEMING REQUEST Carotid: N/A Mapping: N/A Dental: CLEARED seen in [facility] and cleared pt saw Dentist on 08/30/20 and was cleared Dentist wrote 02/01/20 as last exam but signed the form on 08/30/20 as cleared PFT's: N/A Recent Labs 09/18/20 0958 WBC 7.37 HB 13.7 HCT 42.5 PLT 193 INR 1.0 CREAT 1.11 UA: normal HCG:N/A ABO/ABO Confirmed: yes ABO/RH(D) Date Value Ref Range Status 09/25/2020 O POSITIVE Final Blood ordered: Yes DOS BLOOD ORDER 1 unit(s) PRBCS PT IS A REDO [facility] 2003 SA Swab: Yes - results: Negative Last Dose of Anticoagulation: ASA & CoQ10 09/16/20 Op Note: yes, 2003 [facility] Pacemaker Check: N/A Implants: yes: REDO [facility] SURGERY POST OP [facility] SURGICAL CHANGES sternal wires Consults: NA DM: No Cardiac Surgical prep: yes SIGNATURE: Paty Goyal RN DATE of SERVICE: 09/18/2020 TIME of SERVICE: 12:12 PM CHECKED BY: RE 09/26/2020 Medicare annual wellness visit, subsequent 02/27/2015 10/10/2022 Onychomycosis 07/01/2012 10/10/2022 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 Tinea pedis 07/01/2012 10/10/2022 Medicare annual wellness visit, subsequent 02/24/2012 02/27/2015 Solar Lentigo and Solar Lentigines 07/17/2011 10/10/2022 Castro angiomas 07/17/2011 10/10/2022 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 10/10/2022 Xerosis cutis 01/13/2011 10/10/2022 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 06/08/2008 03/13/2009 XEROSIS///SEBACEOUS GLAND DIS NEC 03/11/2008 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) 09/18/2006 10/10/2022 ACTINIC DAMAGE//CHR SOLAR SKIN DAMAGE 09/18/2006 06/17/2013 Irritated//Inflamed Seborrheic Keratosis 09/18/2006 10/10/2022 Skin Tag Papilloma 09/18/2006 Neoplasm of Uncertain Behavior (NUB) 01/23/2006 10/10/2022 SURGICAL SCARS & FIBROSIS OF SKIN 01/23/2006 10/10/2022 SOLAR LENTIGINES///DYSCHROMIA OTHER 01/23/2006 06/17/2013 Benign neoplasm of skin of t runk, except scrotum 01/23/2006 06/17/2013 OTHER UNSPEC SLEEP APNEA 10/26/200412/2013 Aortic valve disorder 05/30/20032017 Essential hypertension 05/30/200309/28 Overview: History: On multiple agents at home Assessment: hypotensive Plan: Hold antihypertensives Last Assessment & Plan: BP is well controlled on current regimen of medicines which is tolerated well. No significant side effects documented as of this encounter (statuses as of 06/16/2023) [facility] History of Past illness Narrative* Problem Noted Date Resolved Date Fluid overload 09/29/2020 10/02/2020 Overview: History Post op. Assessment Intake/Output Summary (Last 24 hours) at 09/30/2020 1210 Last data filed at 09/30/2020 1130 Gross per 24 hour Intake 871 ml Output 2750 ml Net -1879 ml Plan Cont Bumex per C TS Postoperative hypotension 09/27/20202020 Overview: History Post op Assessment Levo gtt Plan Wean Levo gtt as able Stress hyperglycemia 09/27/2020 10/02/2020 Overview: History No H/o DM Assessment Controlled Plan SSI Preop testing 09/18/2020 10/01/2020 Overview: [facility] Surgeon: Nasim Fleming M.D. COVID-19 Neg 09/21/2020 Informed Consent Completed: yes STS Score: CAD: No Is intended procedure a CABG: No - is a beta alvaro ordered? No - reason: ni H & P completed: Yes PA/LAT: completed CT: Completed--[facility] 08/19/20 MRI: N/A LE US: N/A Cath: Yes - reviewed: yes 09/19/20 EKG: Completed Is patient on Amiodarone? No Echo: completed EF %: 62 PI's: N/A --NO PIs in TCI PER DR. FLEMING REQUEST Carotid: N/A Mapping: N/A Dental: CLEARED seen in [facility] and cleared pt saw Dentist on 08/30/20 and was cleared Dentist wrote 02/01/20 as last exam but signed the form on 08/30/20 as cleared PFT's: N/A Recent Labs 09/18/20 0958 WBC 7.37 HB 13.7 HCT 42.5 PLT 193 INR 1.0 CREAT 1.11 UA: normal HCG:N/A ABO/ABO Confirmed: yes ABO/RH(D) Date Value Ref Range Status 09/25/2020 O POSITIVE Final Blood ordered: Yes DOS BLOOD ORDER 1 unit(s) PRBCS PT IS A REDO [facility] 2003 SA Swab: Yes - results: Negative Last Dose of Anticoagulation: ASA & CoQ10 09/16/20 Op Note: yes, 2003 [facility] Pacemaker Check: N/A Implants: yes: REDO [facility] SURGERY POST OP [facility]HS SURGICAL CHANGES sternal wires Consults: NA DM: No Cardiac Surgical prep: yes SIGNATURE: Paty Goyal RN DATE of SERVICE: 09/18/2020 TIME of SERVICE: 12:12 PM CHECKED BY: CELINA 09/26/2020 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 Medicare annual wellness visit, subsequent 02/2302/27/2015 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 No significant side effects documented as of this encounter (statuses as of 06/29/2021) [facility] History of Past illness Narrative* Problem Noted Date Resolved Date Fluid overload 09/29/2020 10/02/2020 Overview: History Post op. Assessment Intake/Output Summary (Last 24 hours) at 09/30/2020 1210 Last data filed at 09/30/2020 1130 Gross per 24 hour Intake 871 ml Output 2750 ml Net -1879 ml Plan Cont Bumex per C TS Postoperative hypotension 09/27/20202020 Overview: History Post op Assessment Levo gtt Plan Wean Levo gtt as able Stress hyperglycemia 09/27/2020 10/02/2020 Overview: History No H/o DM Assessment Controlled Plan SSI Preop testing 09/18/2020 10/01/2020 [facility] Surgeon: Nasim Fleming M.D. COVID-19 Neg 09/21/2020 Informed Consent Completed: yes STS Score: CAD: No Is intended procedure a CABG: No - is a beta alvaro ordered? No - reason: ni H & P completed: Yes PA/LAT: completed CT: Completed--[facility] 08/19/20 MRI: N/A LE US: N/A Cath: Yes - reviewed: yes 09/19/20 EKG: Completed Is patient on Amiodarone? No Echo: completed EF %: 62 PI's: N/A --NO PIs in TCI PER DR. FLEMING REQUEST Carotid: N/A Mapping: N/A Dental: CLEARED seen in [facility] and cleared pt saw Dentist on 08/30/20 and was cleared Dentist wrote 02/01/20 as last exam but signed the form on 08/30/20 as cleared PFT's: N/A Recent Labs 09/18/20 0958 WBC 7.37 HB 13.7 HCT 42.5 PLT 193 INR 1.0 CREAT 1.11 UA: normal HCG:N/A ABO/ABO Confirmed: yes ABO/RH(D) Date Value Ref Range Status 09/25/2020 O POSITIVE Final Blood ordered: Yes DOS BLOOD ORDER 1 unit(s) PRBCS PT IS A [facility]O [facility] 2003 SA Swab: Yes - results: Negative Last Dose of Anticoagulation: ASA & CoQ10 09/16/20 Op Note: yes, 2003 [facility] Pacemaker Check: N/A Implants: yes: REDO [facility] SURGERY POST OP [facility] SURGICAL CHANGES sternal wires Consults: NA DM: No Cardiac Surgical prep: yes SIGNATURE: Paty Goyal RN DATE of SERVICE: 09/18/2020 TIME of SERVICE: 12:12 PM CHECKED BY: CELINA 09/26/2020 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 Medicare annual wellness visit, subsequent 02/2302/27/2015 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 No significant side effects documented as of this encounter (statuses as of 08/17/2021) [facility]-23-[facility]21 History of Past illness Narrative* Problem Noted Date Resolved Date Fluid overload 09/29/2020 10/02/2020 Overview: History Post op. Assessment Intake/Output Summary (Last 24 hours) at 09/30/2020 1210 Last data filed at 09/30/2020 1130 Gross per 24 hour Intake 871 ml Output 2750 ml Net -1879 ml Plan Cont Bumex per C TS Postoperative hypotension 09/27/20202020 Overview: History Post op Assessment Levo gtt Plan Wean Levo gtt as able Stress hyperglycemia 09/27/2020 10/02/2020 Overview: History No H/o DM Assessment Controlled Plan SSI Preop testing 09/18/2020 10/01/2020 Overview: [facility] Surgeon: Nasim Fleming M.D. COVID-19 Neg 09/21/2020 Informed Consent Completed: yes STS Score: CAD: No Is intended procedure a CABG: No - is a beta alvaro ordered? No - reason: ni H & P completed: Yes PA/LAT: completed CT: Completed--OSH 08/19/20 MRI: N/A LE US: N/A Cath: Yes - reviewed: yes 09/19/20 EKG: Completed Is patient on Amiodarone? No Echo: completed EF %: 62 PI's: N/A --NO PIs in TCI PER DR. FLEMING REQUEST Carotid: N/A Mapping: N/A Dental: CLEARED seen in [facility] and cleared pt saw Dentist on 08/30/20 and was cleared Dentist wrote 02/01/20 as last exam but signed the form on 08/30/20 as cleared PFT's: N/A Recent Labs 09/18/20 0958 WBC 7.37 HB 13.7 HCT 42.5 PLT 193 INR 1.0 CREAT 1.11 UA: normal HCG:N/A ABO/ABO Confirmed: yes ABO/RH(D) Date Value Ref Range Status 09/25/2020 O POSITIVE Final Blood ordered: Yes DOS BLOOD ORDER 1 unit(s) PRBCS PT IS A [facility] 2003 SA Swab: Yes - results: Negative Last Dose of Anticoagulation: ASA & CoQ10 09/16/20 Op Note: yes, 2003 [facility] Pacemaker Check: N/A Implants: yes: REDO [facility] SURGERY POST OP [facility] SURGICAL CHANGES sternal wires Consults: NA DM: No Cardiac Surgical prep: yes SIGNATURE: Paty Goyal RN DATE of SERVICE: 09/18/2020 TIME of SERVICE: 12:12 PM CHECKED BY: RE 09/26/2020 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 Medicare annual wellness visit, subsequent 02/2302/27/2015 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 No significant side effects documented as of this encounter (statuses as of 09/19/2021) [facility]-23-2021 History of Past illness Narrative* Problem Noted Date Resolved Date Fluid overload 09/29/2020 10/02/2020 Overview: History Post op. Assessment Intake/Output Summary (Last 24 hours) at 09/30/2020 1210 Last data filed at 09/30/2020 1130 Gross per 24 hour Intake 871 ml Output 2750 ml Net -1879 ml Plan Cont Bumex per C TS Postoperative hypotension 09/27/20202020 Overview: History Post op Assessment Levo gtt Plan Wean Levo gtt as able Stress hyperglycemia 09/27/2020 10/02/2020 Overview: History No H/o DM Assessment Controlled Plan SSI Preop testing 09/18/2020 10/01/2020 Overview: [facility] Surgeon: Nasim Fleming M.D. COVID-19 Neg 09/21/2020 Informed Consent Completed: yes STS Score: CAD: No Is intended procedure a CABG: No - is a beta alvaro ordered? No - reason: ni H & P completed: Yes PA/LAT: completed CT: Completed--OSH 08/19/20 MRI: N/A LE US: N/A Cath: Yes - reviewed: yes 09/19/20 EKG: Completed Is patient on Amiodarone? No Echo: completed EF %: 62 PI's: N/A --NO PIs in TCI PER DR. FLEMING REQUEST Carotid: N/A Mapping: N/A Dental: CLEARED seen in [facility] and cleared pt saw Dentist on 08/30/20 and was cleared Dentist wrote 02/01/20 as last exam but signed the form on 08/30/20 as cleared PFT's: N/A Recent Labs 09/18/20 0958 WBC 7.37 HB 13.7 HCT 42.5 PLT 193 INR 1.0 CREAT 1.11 UA: normal HCG:N/A ABO/ABO Confirmed: yes ABO/RH(D) Date Value Ref Range Status 09/25/2020 O POSITIVE Final Blood ordered: Yes DOS BLOOD ORDER 1 unit(s) PRBCS PT IS A [facility] 2003 SA Swab: Yes - results: Negative Last Dose of Anticoagulation: ASA & CoQ10 09/16/20 Op Note: yes, 2003 [facility] Pacemaker Check: N/A Implants: yes: REDO [facility] SURGERY POST OP [facility] SURGICAL CHANGES sternal wires Consults: NA DM: No Cardiac Surgical prep: yes SIGNATURE: Paty Goyal RN DATE of SERVICE: 09/18/2020 TIME of SERVICE: 12:12 PM CHECKED BY: RE 09/26/2020 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 Medicare annual wellness visit, subsequent 02/2302/27/2015 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 No significant side effects documented as of this encounter (statuses as of 09/25/2021) [facility]21 History of Past illness Narrative* Problem Noted Date Resolved Date Fluid overload 09/29/2020 10/02/2020 Overview: History Post op. Assessment Intake/Output Summary (Last 24 hours) at 09/30/2020 1210 Last data filed at 09/30/2020 1130 Gross per 24 hour Intake 871 ml Output 2750 ml Net -1879 ml Plan Cont Bumex per C TS Postoperative hypotension 09/27/20202020 Overview: History Post op Assessment Levo gtt Plan Wean Levo gtt as able Stress hyperglycemia 09/27/2020 10/02/2020 Overview: History No H/o DM Assessment Controlled Plan SSI Preop testing 09/18/2020 10/01/2020 Overview: [facility] Surgeon: Nasim Fleming M.D. COVID-19 Neg 09/21/2020 Informed Consent Completed: yes STS Score: CAD: No Is intended procedure a CABG: No - is a beta alvaro ordered? No - reason: ni H & P completed: Yes PA/LAT: completed CT: Completed--OSH 08/19/20 MRI: N/A LE US: N/A Cath: Yes - reviewed: yes 09/19/20 EKG: Completed Is patient on Amiodarone? No Echo: completed EF %: 62 PI's: N/A --NO PIs in TCI PER DR. FLEMING REQUEST Carotid: N/A Mapping: N/A Dental: CLEARED seen in [facility] and cleared pt saw Dentist on 08/30/20 and was cleared Dentist wrote 02/01/20 as last exam but signed the form on 08/30/20 as cleared PFT's: N/A Recent Labs 09/18/20 0958 WBC 7.37 HB 13.7 HCT 42.5 PLT 193 INR 1.0 CREAT 1.11 UA: normal HCG:N/A ABO/ABO Confirmed: yes ABO/RH(D) Date Value Ref Range Status 09/25/2020 O POSITIVE Final Blood ordered: Yes DOS BLOOD ORDER 1 unit(s) PRBCS PT IS A [facility] 2003 SA Swab: Yes - results: Negative Last Dose of Anticoagulation: ASA & CoQ10 09/16/20 Op Note: yes, 2003 [facility] Pacemaker Check: N/A Implants: yes: REDO [facility] SURGERY POST OP [facility] SURGICAL CHANGES sternal wires Consults: NA DM: No Cardiac Surgical prep: yes SIGNATURE: Paty Goyal RN DATE of SERVICE: 09/18/2020 TIME of SERVICE: 12:12 PM CHECKED BY: RE 09/26/2020 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 Medicare annual wellness visit, subsequent 02/2302/27/2015 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 No significant side effects documented as of this encounter (statuses as of 11/01/2021) [facility]21 History of Past illness Narrative* Problem Noted Date Resolved Date Fluid overload 09/29/2020 10/02/2020 Overview: History Post op. Assessment Intake/Output Summary (Last 24 hours) at 09/30/2020 1210 Last data filed at 09/30/2020 1130 Gross per 24 hour Intake 871 ml Output 2750 ml Net -1879 ml Plan Cont Bumex per C TS Postoperative hypotension 09/27/20202020 Overview: History Post op Assessment Levo gtt Plan Wean Levo gtt as able Stress hyperglycemia 09/27/2020 10/02/2020 Overview: History No H/o DM Assessment Controlled Plan SSI Preop testing 09/18/2020 10/01/2020 Overview: [facility] Surgeon: Nasim Fleming M.D. COVID-19 Neg 09/21/2020 Informed Consent Completed: yes STS Score: CAD: No Is intended procedure a CABG: No - is a beta alvaro ordered? No - reason: ni H & P completed: Yes PA/LAT: completed CT: Completed--OSH 08/19/20 MRI: N/A LE US: N/A Cath: Yes - reviewed: yes 09/19/20 EKG: Completed Is patient on Amiodarone? No Echo: completed EF %: 62 PI's: N/A --NO PIs in TCI PER DR. FLEMING REQUEST Carotid: N/A Mapping: N/A Dental: CLEARED seen in [facility] and cleared pt saw Dentist on 08/30/20 and was cleared Dentist wrote 02/01/20 as last exam but signed the form on 08/30/20 as cleared PFT's: N/A Recent Labs 09/18/20 0958 WBC 7.37 HB 13.7 HCT 42.5 PLT 193 INR 1.0 CREAT 1.11 UA: normal HCG:N/A ABO/ABO Confirmed: yes ABO/RH(D) Date Value Ref Range Status 09/25/2020 O POSITIVE Final Blood ordered: Yes DOS BLOOD ORDER 1 unit(s) PRBCS PT IS A [facility]O [facility] 2003 SA Swab: Yes - results: Negative Last Dose of Anticoagulation: ASA & CoQ10 09/16/20 Op Note: yes, 2003 [facility] Pacemaker Check: N/A Implants: yes: REDO [facility] SURGERY POST OP [facility] SURGICAL CHANGES sternal wires Consults: NA DM: No Cardiac Surgical prep: yes SIGNATURE: Paty Goyal RN DATE of SERVICE: 09/18/2020 TIME of SERVICE: 12:12 PM CHECKED BY: CELINA 09/26/2020 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 Medicare annual wellness visit, subsequent 02/2302/27/2015 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 No significant side effects documented as of this encounter (statuses as of 11/02/2021) [facility] History of Past illness Narrative* Problem Noted Date Resolved Date Fluid overload 09/29/2020 10/02/2020 Overview: History Post op. Assessment Intake/Output Summary (Last 24 hours) at 09/30/2020 1210 Last data filed at 09/30/2020 1130 Gross per 24 hour Intake 871 ml Output 2750 ml Net -1879 ml Plan Cont Bumex per C TS Postoperative hypotension 09/27/20202020 Overview: History Post op Assessment Levo gtt Plan Wean Levo gtt as able Stress hyperglycemia 09/27/2020 10/02/2020 Overview: History No H/o DM Assessment Controlled Plan SSI Preop testing 09/18/2020 10/01/2020 Overview: [facility] Surgeon: Nasim Fleming M.D. COVID-19 Neg 09/21/2020 Informed Consent Completed: yes STS Score: CAD: No Is intended procedure a CABG: No - is a beta alvaro ordered? No - reason: ni H & P completed: Yes PA/LAT: completed CT: Completed--OSH 08/19/20 MRI: N/A LE US: N/A Cath: Yes - reviewed: yes 09/19/20 EKG: Completed Is patient on Amiodarone? No Echo: completed EF %: 62 PI's: N/A --NO PIs in TCI PER DR. FLEMING REQUEST Carotid: N/A Mapping: N/A Dental: CLEARED seen in [facility] and cleared pt saw Dentist on 08/30/20 and was cleared Dentist wrote 02/01/20 as last exam but signed the form on 08/30/20 as cleared PFT's: N/A Recent Labs 09/18/20 0958 WBC 7.37 HB 13.7 HCT 42.5 PLT 193 INR 1.0 CREAT 1.11 UA: normal HCG:N/A ABO/ABO Confirmed: yes ABO/RH(D) Date Value Ref Range Status 09/25/2020 O POSITIVE Final Blood ordered: Yes DOS BLOOD ORDER 1 unit(s) PRBCS PT IS A [facility] 2003 SA Swab: Yes - results: Negative Last Dose of Anticoagulation: ASA & CoQ10 09/16/20 Op Note: yes, 2003 [facility] Pacemaker Check: N/A Implants: yes: REDO [facility] SURGERY POST OP [facility] SURGICAL CHANGES sternal wires Consults: NA DM: No Cardiac Surgical prep: yes SIGNATURE: Paty Goyal RN DATE of SERVICE: 09/18/2020 TIME of SERVICE: 12:12 PM CHECKED BY: RE 09/26/2020 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 Medicare annual wellness visit, subsequent 02/2302/27/2015 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 No significant side effects documented as of this encounter (statuses as of 12/17/2021) [facility] History of Past illness Narrative* Problem Noted Date Resolved Date Fluid overload 09/29/2020 10/02/2020 Overview: History Post op. Assessment Intake/Output Summary (Last 24 hours) at 09/30/2020 1210 Last data filed at 09/30/2020 1130 Gross per 24 hour Intake 871 ml Output 2750 ml Net -1879 ml Plan Cont Bumex per C TS Postoperative hypotension 09/27/20202020 Overview: History Post op Assessment Levo gtt Plan Wean Levo gtt as able Stress hyperglycemia 09/27/2020 10/02/2020 Overview: History No H/o DM Assessment Controlled Plan SSI Preop testing 09/18/2020 10/01/2020 Overview: [facility] Surgeon: Nasim Fleming M.D. COVID-19 Neg 09/21/2020 Informed Consent Completed: yes STS Score: CAD: No Is intended procedure a CABG: No - is a beta alvaro ordered? No - reason: ni H & P completed: Yes PA/LAT: completed CT: Completed--OSH 08/19/20 MRI: N/A LE US: N/A Cath: Yes - reviewed: yes 09/19/20 EKG: Completed Is patient on Amiodarone? No Echo: completed EF %: 62 PI's: N/A --NO PIs in TCI PER DR. FLEMING REQUEST Carotid: N/A Mapping: N/A Dental: CLEARED seen in [facility] and cleared pt saw Dentist on 08/30/20 and was cleared Dentist wrote 11/24/20 as last exam but signed the form on 08/30/20 as cleared PFT's: N/A Recent Labs 09/18/20 0958 WBC 7.37 HB 13.7 HCT 42.5 PLT 193 INR 1.0 CREAT 1.11 UA: normal HCG:N/A ABO/ABO Confirmed: yes ABO/RH(D) Date Value Ref Range Status 09/25/2020 O POSITIVE Final Blood ordered: Yes DOS BLOOD ORDER 1 unit(s) PRBCS PT IS A [facility]O [facility] 2003 SA Swab: Yes - results: Negative Last Dose of Anticoagulation: ASA & CoQ10 09/16/20 Op Note: yes, 2003 [facility] Pacemaker Check: N/A Implants: yes: REDO [facility] SURGERY POST OP [facility] SURGICAL CHANGES sternal wires Consults: NA DM: No Cardiac Surgical prep: yes SIGNATURE: Paty Goyal RN DATE of SERVICE: 09/18/2020 TIME of SERVICE: 12:12 PM CHECKED BY: CELINA 09/26/2020 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 Medicare annual wellness visit, subsequent 02/2302/27/2015 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 No significant side effects documented as of this encounter (statuses as of 12/31/2021) [facility] History of Past illness Narrative* Problem Noted Date Resolved Date Fluid overload 09/29/2020 10/02/2020 Overview: History Post op. Assessment Intake/Output Summary (Last 24 hours) at 09/30/2020 1210 Last data filed at 09/30/2020 1130 Gross per 24 hour Intake 871 ml Output 2750 ml Net -1879 ml Plan Cont Bumex per C TS Postoperative hypotension 09/27/20202020 Overview: History Post op Assessment Levo gtt Plan Wean Levo gtt as able Stress hyperglycemia 09/27/2020 10/02/2020 Overview: History No H/o DM Assessment Controlled Plan SSI Preop testing 09/18/2020 10/01/2020 Overview: [facility] Surgeon: Nasim Fleming M.D. COVID-19 Neg 09/21/2020 Informed Consent Completed: yes STS Score: CAD: No Is intended procedure a CABG: No - is a beta alvaro ordered? No - reason: ni H & P completed: Yes PA/LAT: completed CT: Completed--OSH 08/19/20 MRI: N/A LE US: N/A Cath: Yes - reviewed: yes 09/19/20 EKG: Completed Is patient on Amiodarone? No Echo: completed EF %: 62 PI's: N/A --NO PIs in TCI PER DR. FLEMING REQUEST Carotid: N/A Mapping: N/A Dental: CLEARED seen in [facility] and cleared pt saw Dentist on 08/30/20 and was cleared Dentist wrote 02/01/20 as last exam but signed the form on 08/30/20 as cleared PFT's: N/A Recent Labs 09/18/20 0958 WBC 7.37 HB 13.7 HCT 42.5 PLT 193 INR 1.0 CREAT 1.11 UA: normal HCG:N/A ABO/ABO Confirmed: yes ABO/RH(D) Date Value Ref Range Status 09/25/2020 O POSITIVE Final Blood ordered: Yes DOS BLOOD ORDER 1 unit(s) PRBCS PT IS A [facility]O [facility] 2003 SA Swab: Yes - results: Negative Last Dose of Anticoagulation: ASA & CoQ10 09/16/20 Op Note: yes, 2003 [facility] Pacemaker Check: N/A Implants: yes: REDO [facility] SURGERY POST OP [facility] SURGICAL CHANGES sternal wires Consults: NA DM: No Cardiac Surgical prep: yes SIGNATURE: Paty Goyal RN DATE of SERVICE: 09/18/2020 TIME of SERVICE: 12:12 PM CHECKED BY: RE 09/26/2020 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 Medicare annual wellness visit, subsequent 02/2302/27/2015 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 No significant side effects documented as of this encounter (statuses as of 01/04/2022) [facility] History of Past illness Narrative* Problem Noted Date Resolved Date Fluid overload 09/29/2020 10/02/2020 Overview: History Post op. Assessment Intake/Output Summary (Last 24 hours) at 09/30/2020 1210 Last data filed at 09/30/2020 1130 Gross per 24 hour Intake 871 ml Output 2750 ml Net -1879 ml Plan Cont Bumex per C TS Postoperative hypotension 09/27/20202020 Overview: History Post op Assessment Levo gtt Plan Wean Levo gtt as able Stress hyperglycemia 09/27/2020 10/02/2020 Overview: History No H/o DM Assessment Controlled Plan SSI Preop testing 09/18/2020 10/01/2020 Overview: [facility] Surgeon: Nasim Fleming M.D. COVID-19 Neg 09/21/2020 Informed Consent Completed: yes STS Score: CAD: No Is intended procedure a CABG: No - is a beta alvaro ordered? No - reason: ni H & P completed: Yes PA/LAT: completed CT: Completed--OSH 08/19/20 MRI: N/A LE US: N/A Cath: Yes - reviewed: yes 09/19/20 EKG: Completed Is patient on Amiodarone? No Echo: completed EF %: 62 PI's: N/A --NO PIs in TCI PER DR. FLEMING REQUEST Carotid: N/A Mapping: N/A Dental: CLEARED seen in [facility] and cleared pt saw Dentist on 08/30/20 and was cleared Dentist wrote 02/01/20 as last exam but signed the form on 08/30/20 as cleared PFT's: N/A Recent Labs 09/18/20 0958 WBC 7.37 HB 13.7 HCT 42.5 PLT 193 INR 1.0 CREAT 1.11 UA: normal HCG:N/A ABO/ABO Confirmed: yes ABO/RH(D) Date Value Ref Range Status 09/25/2020 O POSITIVE Final Blood ordered: Yes DOS BLOOD ORDER 1 unit(s) PRBCS PT IS A [facility]O [facility] 2003 SA Swab: Yes - results: Negative Last Dose of Anticoagulation: ASA & CoQ10 09/16/20 Op Note: yes, 2003 [facility] Pacemaker Check: N/A Implants: yes: REDO [facility] SURGERY POST OP [facility] SURGICAL CHANGES sternal wires Consults: NA DM: No Cardiac Surgical prep: yes SIGNATURE: Paty Goyal RN DATE of SERVICE: 09/18/2020 TIME of SERVICE: 12:12 PM CHECKED BY: CELINA 09/26/2020 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 Medicare annual wellness visit, subsequent 02/2302/27/2015 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 No significant side effects documented as of this encounter (statuses as of 01/10/2022) [facility] History of Past illness Narrative* Problem Noted Date Resolved Date Fluid overload 09/29/2020 10/02/2020 Overview: History Post op. Assessment Intake/Output Summary (Last 24 hours) at 09/30/2020 1210 Last data filed at 09/30/2020 1130 Gross per 24 hour Intake 871 ml Output 2750 ml Net -1879 ml Plan Cont Bumex per C TS Postoperative hypotension 09/27/20202020 Overview: History Post op Assessment Levo gtt Plan Wean Levo gtt as able Stress hyperglycemia 09/27/2020 10/02/2020 Overview: History No H/o DM Assessment Controlled Plan SSI Preop testing 09/18/2020 10/01/2020 [facility] Surgeon: Nasim Fleming M.D. COVID-19 Neg 09/21/2020 Informed Consent Completed: yes STS Score: CAD: No Is intended procedure a CABG: No - is a beta alvaro ordered? No - reason: ni H & P completed: Yes PA/LAT: completed CT: Completed--[facility] 08/19/20 MRI: N/A LE US: N/A Cath: Yes - reviewed: yes 09/19/20 EKG: Completed Is patient on Amiodarone? No Echo: completed EF %: 62 PI's: N/A --NO PIs in TCI PER DR. FLEMING REQUEST Carotid: N/A Mapping: N/A Dental: CLEARED seen in [facility] and cleared pt saw Dentist on 08/30/20 and was cleared Dentist wrote 02/01/20 as last exam but signed the form on 08/30/20 as cleared PFT's: N/A Recent Labs 09/18/20 0958 WBC 7.37 HB 13.7 HCT 42.5 PLT 193 INR 1.0 CREAT 1.11 UA: normal HCG:N/A ABO/ABO Confirmed: yes ABO/RH(D) Date Value Ref Range Status 09/25/2020 O POSITIVE Final Blood ordered: Yes DOS BLOOD ORDER 1 unit(s) PRBCS PT IS A REDO [facility] 2004 SA Swab: Yes - results: Negative Last Dose of Anticoagulation: ASA & CoQ10 09/16/20 Op Note: yes, 2003 [facility] Pacemaker Check: N/A Implants: yes: REDO [facility] SURGERY POST OP [facility] SURGICAL CHANGES sternal wires Consults: NA DM: No Cardiac Surgical prep: yes SIGNATURE: Paty Goyal RN DATE of SERVICE: 09/18/2020 TIME of SERVICE: 12:12 PM CHECKED BY: CELINA 09/26/2020 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 Medicare annual wellness visit, subsequent 02/2302/27/2015 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 No significant side effects documented as of this encounter (statuses as of 07/04/2022) [facility] History of Past illness Narrative* Problem Noted Date Resolved Date Fluid overload 09/29/2020 10/02/2020 Overview: History Post op. Assessment Intake/Output Summary (Last 24 hours) at 09/30/2020 1210 Last data filed at 09/30/2020 1130 Gross per 24 hour Intake 871 ml Output 2750 ml Net -1879 ml Plan Cont Bumex per C TS Postoperative hypotension 09/27/20202020 Overview: History Post op Assessment Levo gtt Plan Wean Levo gtt as able Stress hyperglycemia 09/27/2020 10/02/2020 Overview: History No H/o DM Assessment Controlled Plan SSI Preop testing 09/18/2020 10/01/2020 Overview[facility] Surgeon: Nasim Fleming M.D. COVID-19 Neg 09/21/2020 Informed Consent Completed: yes STS Score: CAD: No Is intended procedure a CABG: No - is a beta alvaro ordered? No - reason: ni H & P completed: Yes PA/LAT: completed CT: Completed--OSH 08/19/20 MRI: N/A LE US: N/A Cath: Yes - reviewed: yes 09/19/20 EKG: Completed Is patient on Amiodarone? No Echo: completed EF %: 62 PI's: N/A --NO PIs in TCI PER DR. FLEMING REQUEST Carotid: N/A Mapping: N/A Dental: CLEARED seen in [facility] and cleared pt saw Dentist on 08/30/20 and was cleared Dentist wrote 02/01/20 as last exam but signed the form on 08/30/20 as cleared PFT's: N/A Recent Labs 09/18/20 0958 WBC 7.37 HB 13.7 HCT 42.5 PLT 193 INR 1.0 CREAT 1.11 UA: normal HCG:N/A ABO/ABO Confirmed: yes ABO/RH(D) Date Value Ref Range Status 09/25/2020 O POSITIVE Final Blood ordered: Yes DOS BLOOD ORDER 1 unit(s) PRBCS PT IS A REDO [facility] 2003 SA Swab: Yes - results: Negative Last Dose of Anticoagulation: ASA & CoQ10 09/16/20 Op Note: yes, 2003 [facility] Pacemaker Check: N/A Implants: yes: REDO [facility] SURGERY POST OP O[facility] SURGICAL CHANGES sternal wires Consults: NA DM: No Cardiac Surgical prep: yes SIGNATURE: Paty Goyal RN DATE of SERVICE: 09/18/2020 TIME of SERVICE: 12:12 PM CHECKED BY: CELINA 09/26/2020 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 Medicare annual wellness visit, subsequent 02/2302/27/2015 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 No significant side effects documented as of this encounter (statuses as of 07/16/2022) [facility] History of Past illness Narrative* Problem Noted Date Resolved Date Fluid overload 09/29/2020 10/02/2020 Overview: History Post op. Assessment Intake/Output Summary (Last 24 hours) at 09/30/2020 1210 Last data filed at 09/30/2020 1130 Gross per 24 hour Intake 871 ml Output 2750 ml Net -1879 ml Plan Cont Bumex per C TS Postoperative hypotension 09/27/20202020 Overview: History Post op Assessment Levo gtt Plan Wean Levo gtt as able Stress hyperglycemia 09/27/2020 10/02/2020 Overview: History No H/o DM Assessment Controlled Plan SSI Preop testing 09/18/2020 10/01/2020 Overview: [facility] Surgeon: Nasim Fleming M.D. COVID-19 Neg 09/21/2020 Informed Consent Completed: yes STS Score: CAD: No Is intended procedure a CABG: No - is a beta alvaro ordered? No - reason: ni H & P completed: Yes PA/LAT: completed CT: Completed--OSH 08/19/20 MRI: N/A LE US: N/A Cath: Yes - reviewed: yes 09/19/20 EKG: Completed Is patient on Amiodarone? No Echo: completed EF %: 62 PI's: N/A --NO PIs in TCI PER DR. FLEMING REQUEST Carotid: N/A Mapping: N/A Dental: CLEARED seen in [facility] and cleared pt saw Dentist on 08/30/20 and was cleared Dentist wrote 02/01/20 as last exam but signed the form on 08/30/20 as cleared PFT's: N/A Recent Labs 09/18/20 0958 WBC 7.37 HB 13.7 HCT 42.5 PLT 193 INR 1.0 CREAT 1.11 UA: normal HCG:N/A ABO/ABO Confirmed: yes ABO/RH(D) Date Value Ref Range Status 09/25/2020 O POSITIVE Final Blood ordered: Yes DOS BLOOD ORDER 1 unit(s) PRBCS PT IS A [facility]O [facility] 2003 SA Swab: Yes - results: Negative Last Dose of Anticoagulation: ASA & CoQ10 7/10/21 Op Note: yes, 2003 [facility] Pacemaker Check: N/A Implants: yes: REDO [facility] SURGERY POST OP OHS SURGICAL CHANGES sternal wires Consults: NA DM: No Cardiac Surgical prep: yes SIGNATURE: Paty Goyal RN DATE of SERVICE: 09/18/2020 TIME of SERVICE: 12:12 PM CHECKED BY: RE 09/26/2020 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 Medicare annual wellness visit, subsequent 02/2302/27/2015 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 No significant side effects documented as of this encounter (statuses as of 08/28/2022) [facility] History of Past illness Narrative* Problem Noted Date Diagnosed Date Resolved Date Fluid overload 09/29/2020 10/02/2020 Overview: History Post op. Assessment Intake/Output Summary (Last 24 hours) at 09/30/2020 1210 Last data filed at 09/30/2020 1130 Gross per 24 hour Intake 871 ml Output 2750 ml Net -1879 ml Plan Cont Bumex per C TS Postoperative hypotension 09/27/2020 Overview: History Post op Assessment Levo gtt Plan Wean Levo gtt as able Stress hyperglycemia 09/27/2020 021 Overview: History No H/o DM Assessment Controlled Plan SSI Preop testing 09/18/2020 10/01/2020 Overview: [facility] Surgeon: Nasim Fleming M.D. COVID-19 Neg 09/21/2020 Informed Consent Completed: yes STS Score: CAD: No Is intended procedure a CABG: No - is a beta alvaro ordered? No - reason: ni H & P completed: Yes PA/LAT: completed CT: Completed--OSH 08/19/20 MRI: N/A LE US: N/A Cath: Yes - reviewed: yes 09/19/20 EKG: Completed Is patient on Amiodarone? No Echo: completed EF %: 62 PI's: N/A --NO PIs in TCI PER DR. FLEMING REQUEST Carotid: N/A Mapping: N/A Dental: CLEARED seen in [facility] and cleared pt saw Dentist on 08/30/20 and was cleared Dentist wrote 02/01/20 as last exam but signed the form on 08/30/20 as cleared PFT's: N/A Recent Labs 09/18/20 0958 WBC 7.37 HB 13.7 HCT 42.5 PLT 193 INR 1.0 CREAT 1.11 UA: normal HCG:N/A ABO/ABO Confirmed: yes ABO/RH(D) Date Value Ref Range Status 09/25/2020 O POSITIVE Final Blood ordered: Yes DOS BLOOD ORDER 1 unit(s) PRBCS PT IS A [facility]O [facility] 2003 SA Swab: Yes - results: Negative Last Dose of Anticoagulation: ASA & CoQ10 09/16/20 Op Note: yes, 2003 [facility] Pacemaker Check: N/A Implants: yes: REDO [facility] SURGERY POST OP OHS SURGICAL CHANGES sternal wires Consults: NA DM: No Cardiac Surgical prep: yes SIGNATURE: Paty Goyal RN DATE of SERVICE: 09/18/2020 TIME of SERVICE: 12:12 PM CHECKED BY: CELINA 09/26/2020 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 Medicare annual wellness visit, subsequent 02/24/2012 02/27/2015 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 06/08/2008 03/13/2009 XEROSIS///SEBACEOUS GLAND DIS NEC 03/11/2008 06/17/2013 ACTINIC DAMAGE//CHR SOLAR SKIN DAMAGE 09/18/2006 06/17/2013 SOLAR LENTIGINES///DYSCHROMIA OTHER 01/23/2006 06/17/2013 Benign neoplasm of skin of t runk, except scrotum 01/23/2006 06/17/2013 OTHER UNSPEC SLEEP APNEA 10/26/200412/2013 Aortic valve disorder 05/30/20032017 Essential hypertension 05/30/200309/28 Overview: History: On multiple agents at home Assessment: hypotensive Plan: Hold antihypertensives Last Assessment & Plan: BP is well controlled on current regimen of medicines which is tolerated well. 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, chronic Pure hypercholesterolemia [facility] Work Phone: 1(423) 630-673007-01-2021 Evaluation note* Diagnosis Onset Date Resolution Status Essential hypertension chron ic 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, chronic History of left common carotid artery stent placement September, chronic 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, chronic Hx of ascending aorta replacement September, chronic Pure hypercholesterolemia [facility] Postoperative atrial fibrillation resolved Acute hypotension acute Acute right-sided low back pain acute Anticoagulant long-term use acute Atherosclerotic heart diseas e of [place] coronary artery without angina pectoris acute Atrial fibrillation with RVR acute Bacteremia acute [place] esophagitis acute Elevated serum creatinine ac torres martinez Fatigue acute Weakness acute 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 Essential hypertension chron ic [facility] Work Phone: 1(666) 393-131707-01-2021 Evaluation note* Diagnosis Onset Date Resolution Status Essential hypertension chron ic 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, chronic History of left common carotid artery stent placement September, chronic 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, chronic Hx of ascending aorta replacement September, chronic Pure hypercholesterolemia ch ronic Postoperative atrial fibrillation resolved Anticoagulant long-term use acute Atherosclerotic heart diseas e of [place] coronary artery without angina pectoris acute Atrial fibrillation with RVR acute Essential hypertension chron ic [facility] Work Phone: Evaluation note* Diagnosis Elevated blood sugar- Primary Other abnormal glucose Prostate cancer screening Special screening for malignant neoplasm of prostate Mixed hyperlipidemia PARKER (obstructive sleep apnea) Obstructive sleep apnea (adult) (pediatric) Stage 3 chronic kidney disease, unspecified whether stage 3a or 3b CKD (HCC) Essential hypertension Unspecified essential hypertension [facility] Diagnosis Thoracic aortic aneurysm without rupture (HCC)- Primary Thoracic aneurysm without mention of rupture 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 ([facility]) Examination of participant in clinical trial [facility] Diagnosis Thoracic aortic aneurysm without rupture (HCC)- Primary Thoracic aneurysm without mention of rupture Examination of participant in clinical trial [facility] Diagnosis S/P ascending aortic aneurysm repair- Primary Other postprocedural status Ascending aortic aneurysm (HCC) Thoracic aneurysm without mention of rupture 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 S/P AVR (aortic valve replacement) Heart valve replaced by other means S/P TVR (tricuspid valve repair) Other postprocedural status 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 Disorder of artery or arteriole (HCC) Unspecified disorders of arteries and arterioles [facility] Thoracic aortic aneurysm without rupture (HCC) Thoracic aneurysm without mention of rupture Examination of participant in clinical trial 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 (HCC) [facility] Diagnosis CKD (chronic kidney disease) stage 3, GFR 30-59 ml/min (HCC) Chronic kidney disease, Stage III (moderate) [facility] Diagnosis Uncontrolled nonfamilial obstructive sleep apnea- Primary Obstructive sleep apnea (adult) (pediatric) Mild anemia Anemia, unspecified Essential hypertension Unspecified essential hypertension Vitamin B12 deficiency Other B-complex deficiencies Vitamin D deficiency Unspecified vitamin D deficiency Prostate cancer screening Special screening for malignant neoplasm of prostate documented in this encounter [facility] note* Diagnosis Medicare annual wellness visit, subsequent- Primary Routine general medical examination at a health care facility Anemia, unspecified type Essential hypertension Unspecified essential hypertension Gastroesophageal reflux disease without esophagitis Esophageal reflux documented in this encounter [facility] note* Diagnosis Thoracic aortic aneurysm without rupture, unspecified part (HCC)- Primary 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, unspecified part (HCC) Examination of participant in clinical trial [facility] Diagnosis Acute right-sided low back pain without sciatica- Primary Acute upper back pain Pain in thoracic spine Acute neck pain Cervicalgia Anemia, unspecified type Atrial fibrillation, unspecified type (HCC) documented in this encounter [facility] note* Diagnosis Acute right-sided low back pain without sciatica- Primary documented in this encounter [facility] note* Diagnosis Persistent atrial fibrillation (HCC)- Primary Atrial fibrillation documented in this encounter [facility] note* Diagnosis Persistent atrial fibrillation (HCC) [I48.19]- Primary Atrial fibrillation Atrial fibrillation, persistent (HCC) Atrial fibrillation Gastrointestinal hemorrhage associated with gastric ulcer documented in this encounter [facility] note* Diagnosis Research study patient- Primary [facility]* Diagnosis Thoracic aortic aneurysm without rupture, unspecified part (HCC) Examination of participant in clinical trial 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, unspecified part (HCC) documented in this encounter [facility] note* Diagnosis Medication management Encounter for long-term (current) use of other medications documented in this encounter [facility] note* Diagnosis Discitis of lumbosacral region- Primary Other and unspecified disc disorder of lumbar region Streptococcal bacteremia Bacteremia Upper GI bleed Hemorrhage of gastrointestinal tract, unspecified documented in this encounter [facility] note* Diagnosis Onset Date Resolution Status Anticoagulant long-term use acute Atherosclerotic heart diseas e of [place] coronary artery without angina pectoris acute Atrial fibrillation with RVR acute Essential hypertension chron ic Discitis of lumbar region ac torres martinez Osteomyelitis of lumbar spine acute Streptococcal bacteremia acu te 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, chronic Hx of ascending aorta replacement September, chronic [facility] Work Phone: Evaluation note* Diagnosis Onset Date Resolution Status Anticoagulant long-term use acute Atherosclerotic heart diseas e of [place] coronary artery without angina pectoris acute Atrial fibrillation with RVR acute Essential hypertension chron ic Streptococcal bacteremia acu te 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, chronic Hx of ascending aorta replacement September, [facility] Work Phone: Evaluation note* Diagnosis Discitis of lumbosacral region- Primary Other and unspecified disc disorder of lumbar region Streptococcal bacteremia Bacteremia Anemia, unspecified type [facility] Diagnosis Levoscoliosis of lumbar spine- Primary Lumbar spondylosis Lumbosacral spondylosis without myelopathy DDD (degenerative disc disease), lumbar Degeneration of lumbar or lumbosacral intervertebral disc Radiculopathy of lumbar region Thoracic or lumbosacral neuritis or radiculitis, unspecified [facility] Diagnosis Essential hypertension Unspecified essential hypertension [facility] Diagnosis Essential hypertension- Primary Unspecified essential hypertension Anemia, unspecified type Discitis of lumbosacral region Other and unspecified disc disorder of lumbar region Atrial fibrillation, unspecified type (HCC) On anticoagulant therapy Long-term (current) use of anticoagulants PARKER on CPAP Obstructive sleep apnea (adult) (pediatric) [facility] Diagnosis 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 [facility] Iron deficiency anemia due to chronic blood loss- Primary 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 [facility] Diagnosis Iron deficiency anemia due to chronic blood loss- Primary 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 [facility] Diagnosis Iron deficiency anemia due to chronic blood loss- Primary 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 [facility] Diagnosis Iron deficiency anemia due to chronic blood loss- Primary 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 [facility] Diagnosis Iron deficiency anemia due to chronic blood loss- Primary 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 [facility] Diagnosis Iron deficiency anemia due to chronic blood loss- Primary 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 [facility] Iron deficiency anemia due to chronic blood loss- Primary 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 [facility] Diagnosis Iron deficiency anemia due to chronic blood loss- Primary Iron deficiency anemia secondary to blood loss (chronic) [facility] Diagnosis Iron deficiency anemia due to chronic blood loss- Primary 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 [facility] Diagnosis Iron deficiency anemia due to chronic blood loss- Primary 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) [facility] Diagnosis Iron deficiency anemia due to chronic blood loss- Primary 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) [facility]* Diagnosis Iron deficiency anemia due to chronic blood loss- Primary 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) [facility] Diagnosis Iron deficiency anemia due to chronic blood loss- Primary 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) [facility] Diagnosis Research study patient- Primary [facility] Diagnosis Nonrheumatic mitral valve regurgitation S/P ascending aortic aneurysm repair Other postprocedural status Aneurysm of ascending aorta without rupture (HCC) S/P AVR (aortic valve replacement) Heart valve replaced by other means 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 H/O aortic arch replacement Personal history of surgery to heart and great vessels, presenting hazards to health S/P TVR (tricuspid valve repair) Other postprocedural status Disorder of artery or arteriole (HCC) Unspecified disorders of arteries and arterioles Encounter for other preprocedural examination [facility] Gastroesophageal reflux disease without esophagitis Esophageal reflux [facility] Diagnosis Aneurysm of ascending aorta without rupture (HCC)- Primary S/P ascending aortic aneurysm repair Other postprocedural status S/P AVR (aortic valve replacement) Heart valve replaced by other means 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 H/O aortic arch replacement Personal history of surgery to heart and great vessels, presenting hazards to health S/P TVR (tricuspid valve repair) Other postprocedural status Nonrheumatic mitral valve regurgitation [facility] Diagnosis CKD (chronic kidney disease) stage 3, GFR 30-59 ml/min (HCC)- Primary Chronic kidney disease, Stage III (moderate) S/P aortic valve replacement Heart valve replaced by other means Essential hypertension Unspecified essential hypertension Mixed hyperlipidemia PARKER (obstructive sleep apnea) Obstructive sleep apnea (adult) (pediatric) Thoracic aortic aneurysm without rupture (HCC) Thoracic aneurysm without mention of rupture Elevated PSA Elevated prostate specific antigen (PSA) Prostate cancer screening Special screening for malignant neoplasm of prostate Essential hypertension Unspecified essential hypertension [facility] Diagnosis CKD (chronic kidney disease) stage 3, GFR 30-59 ml/min (HCC)- Primary Chronic kidney disease, Stage III (moderate) S/P aortic valve replacement Heart valve replaced by other means Essential hypertension Unspecified essential hypertension Mixed hyperlipidemia PARKER (obstructive sleep apnea) Obstructive sleep apnea (adult) (pediatric) Thoracic aortic aneurysm without rupture (HCC) Thoracic aneurysm without mention of rupture Elevated PSA Elevated prostate specific antigen (PSA) Prostate cancer screening Special screening for malignant neoplasm of prostate Mixed hyperlipidemia Medication management Encounter for long-term (current) use of other medications [facility] Diagnosis CKD (chronic kidney disease) stage 3, GFR 30-59 ml/min (HCC)- Primary Chronic kidney disease, Stage III (moderate) S/P aortic valve replacement Heart valve replaced by other means Essential hypertension Unspecified essential hypertension Mixed hyperlipidemia PARKER (obstructive sleep apnea) Obstructive sleep apnea (adult) (pediatric) Thoracic aortic aneurysm without rupture (HCC) Thoracic aneurysm without mention of rupture Elevated PSA Elevated prostate specific antigen (PSA) Prostate cancer screening Special screening for malignant neoplasm of prostate Iron deficiency anemia due to chronic blood loss- Primary Iron deficiency anemia secondary to blood loss (chronic) [facility] Diagnosis CKD (chronic kidney disease) stage 3, GFR 30-59 ml/min (HCC)- Primary Chronic kidney disease, Stage III (moderate) S/P aortic valve replacement Heart valve replaced by other means Essential hypertension Unspecified essential hypertension Mixed hyperlipidemia PARKER (obstructive sleep apnea) Obstructive sleep apnea (adult) (pediatric) Thoracic aortic aneurysm without rupture (HCC) Thoracic aneurysm without mention of rupture Elevated PSA Elevated prostate specific antigen (PSA) Prostate cancer screening Special screening for malignant neoplasm of prostate Mixed hyperlipidemia- Primary Anemia, unspecified type On anticoagulant therapy Long-term (current) use of anticoagulants [facility] Diagnosis CKD (chronic kidney disease) stage 3, GFR 30-59 ml/min (HCC)- Primary Chronic kidney disease, Stage III (moderate) S/P aortic valve replacement Heart valve replaced by other means Essential hypertension Unspecified essential hypertension Mixed hyperlipidemia PARKER (obstructive sleep apnea) Obstructive sleep apnea (adult) (pediatric) Thoracic aortic aneurysm without rupture (HCC) Thoracic aneurysm without mention of rupture Elevated PSA Elevated prostate specific antigen (PSA) Prostate cancer screening Special screening for malignant neoplasm of prostate Mild anemia Anemia, unspecified [facility] Diagnosis CKD (chronic kidney disease) stage 3, GFR 30-59 ml/min (HCC)- Primary Chronic kidney disease, Stage III (moderate) S/P aortic valve replacement Heart valve replaced by other means Essential hypertension Unspecified essential hypertension Mixed hyperlipidemia PARKER (obstructive sleep apnea) Obstructive sleep apnea (adult) (pediatric) Thoracic aortic aneurysm without rupture Thoracic aneurysm without mention of rupture Elevated PSA Elevated prostate specific antigen (PSA) Prostate cancer screening Special screening for malignant neoplasm of prostate CKD (chronic kidney disease) stage 3, GFR 30-59 ml/min (HCC) Chronic kidney disease, Stage III (moderate) [facility] Diagnosis CKD (chronic kidney disease) stage 3, GFR 30-59 ml/min (HCC)- Primary Chronic kidney disease, Stage III (moderate) S/P aortic valve replacement Heart valve replaced by other means Essential hypertension Unspecified essential hypertension Mixed hyperlipidemia PARKER (obstructive sleep apnea) Obstructive sleep apnea (adult) (pediatric) Thoracic aortic aneurysm without rupture Thoracic aneurysm without mention of rupture Elevated PSA Elevated prostate specific antigen (PSA) Prostate cancer screening Special screening for malignant neoplasm of prostate Anemia, unspecified type- Primary Stage 3 chronic kidney disease, unspecified whether stage 3a or 3b CKD (HCC) PARKER (obstructive sleep apnea) Obstructive sleep apnea (adult) (pediatric) Essential hypertension Unspecified essential hypertension Anxiety and depression Dysthymic disorder Mixed hyperlipidemia DINH (dyspnea on exertion) Other dyspnea and respiratory abnormality Prostate cancer screening Special screening for malignant neoplasm of prostate Testicular mass Other specified disorder of male genital organs [facility] Diagnosis CKD (chronic kidney disease) stage 3, GFR 30-59 ml/min (HCC)- Primary Chronic kidney disease, Stage III (moderate) S/P aortic valve replacement Heart valve replaced by other means Essential hypertension Unspecified essential hypertension Mixed hyperlipidemia PARKER (obstructive sleep apnea) Obstructive sleep apnea (adult) (pediatric) Thoracic aortic aneurysm without rupture Thoracic aneurysm without mention of rupture Elevated PSA Elevated prostate specific antigen (PSA) Prostate cancer screening Special screening for malignant neoplasm of prostate Testicular mass Other specified disorder of male genital organs [facility] Diagnosis CKD (chronic kidney disease) stage 3, GFR 30-59 ml/min (HCC)- Primary Chronic kidney disease, Stage III (moderate) S/P aortic valve replacement Heart valve replaced by other means Essential hypertension Unspecified essential hypertension Mixed hyperlipidemia PARKER (obstructive sleep apnea) Obstructive sleep apnea (adult) (pediatric) Thoracic aortic aneurysm without rupture Thoracic aneurysm without mention of rupture Elevated PSA Elevated prostate specific antigen (PSA) Prostate cancer screening Special screening for malignant neoplasm of prostate Anemia associated with stage 3 chronic renal failure (HCC)- Primary [facility]* Diagnosis CKD (chronic kidney disease) stage 3, GFR 30-59 ml/min (HCC)- Primary Chronic kidney disease, Stage III (moderate) S/P aortic valve replacement Heart valve replaced by other means Essential hypertension Unspecified essential hypertension Mixed hyperlipidemia PARKER (obstructive sleep apnea) Obstructive sleep apnea (adult) (pediatric) Thoracic aortic aneurysm without rupture Thoracic aneurysm without mention of rupture Elevated PSA Elevated prostate specific antigen (PSA) Prostate cancer screening Special screening for malignant neoplasm of prostate Left hydrocele Hydrocele, unspecified [facility] Diagnosis CKD (chronic kidney disease) stage 3, GFR 30-59 ml/min (HCC)- Primary Chronic kidney disease, Stage III (moderate) S/P aortic valve replacement Heart valve replaced by other means Essential hypertension Unspecified essential hypertension Mixed hyperlipidemia PARKER (obstructive sleep apnea) Obstructive sleep apnea (adult) (pediatric) Thoracic aortic aneurysm without rupture Thoracic aneurysm without mention of rupture Elevated PSA Elevated prostate specific antigen (PSA) Prostate cancer screening Special screening for malignant neoplasm of prostate Other hydrocele- Primary [facility] Diagnosis CKD (chronic kidney disease) stage 3, GFR 30-59 ml/min (HCC)- Primary Chronic kidney disease, Stage III (moderate) S/P aortic valve replacement Heart valve replaced by other means Essential hypertension Unspecified essential hypertension Mixed hyperlipidemia PARKER (obstructive sleep apnea) Obstructive sleep apnea (adult) (pediatric) Thoracic aortic aneurysm without rupture Thoracic aneurysm without mention of rupture Elevated PSA Elevated prostate specific antigen (PSA) Prostate cancer screening Special screening for malignant neoplasm of prostate Medicare annual wellness visit, subsequent- Primary Routine general medical examination at a health care facility [place]ARROW (hard of hearing) Unspecified hearing loss Encounter for immunization Need for other specified prophylactic vaccination against single bacterial disease documented in this encounter [facility] note* Diagnosis CKD (chronic kidney disease) stage 3, GFR 30-59 ml/min (HCC)- Primary Chronic kidney disease, Stage III (moderate) S/P aortic valve replacement Heart valve replaced by other means Essential hypertension Unspecified essential hypertension Mixed hyperlipidemia PARKER (obstructive sleep apnea) Obstructive sleep apnea (adult) (pediatric) Thoracic aortic aneurysm without rupture Thoracic aneurysm without mention of rupture Elevated PSA Elevated prostate specific antigen (PSA) Prostate cancer screening Special screening for malignant neoplasm of prostate Gastroesophageal reflux disease without esophagitis Esophageal reflux [facility] Darryl Pimentel [facility] November 05, 2022 4:40pm Note Date/Time November 05, 2022 4: 40pm [facility] Medical Records Department [address] [place] [address] Progress Note - GI 11/05/22 1639 MR#: [id number] Acct: [id number] Name: DAGOBERTO BAXTER JrLa Rep #:[id number] : 1940 82 From: Darryl Pimentel DO PCP: Dr. Rebecca Dinh MD Status:ADM I N Location: [place] [address] Subjective Subjective Patient is doing well. He is scheduled to be DC'd off of anticoagulation and ontreatment for Streptococcus bovis in his blood. Objective Data Objective Data Vital Signs: Vital Signs Temp Pulse Resp BP Pulse Ox O2 Del Method 97.8 F 67 18 117/68 97 Room Air 11/05/22 14:40 11/05/22 14:40 11/05/22 14:40 11/05/22 14:40 11/05/22 14:40 11/05/22 14:40 Oxygen Delivery Method Room Air Weight: 185 lb 3.013 oz Body Mass Index (BMI) 28.1 Intake & Output: Intake and Output for Last 24 Hours 11/03/22 11/04/22 11/05/22 23:59 23:59 23:59 Intake Total 634.97 / 1114.97 1685 / 1685 270 / 270 Output Total 1450 / 1650 200 / 200 Balance -815.03 / -535.03 1485 / 1485 270 / 270 Lab / Micro Data 11/05/22 05:53 11/05/22 05:53 Labs: Laboratory Results - last 24 hr 11/05/22 05:53: WBC 9.0, RBC 3.28 L, Hgb 8.8 L, Hct 29.0 L, MCV 88.4, MCH 26.8 L, MCHC 30.3 L, RDW Std Deviation 50.4 H, RDW Coeff of Duyen 15.8 H, Plt Count 273,MPV 9.0, Immature Gran % (Auto) 1.000 H, Neut % (Auto) 82.5 H, Lymph % (Auto) 8.2 L, [place] % (Auto) 5.4, Eos % (Auto) 2.7, Baso % (Auto) 0.2, Absolute Neuts (auto) 7.5, Absolute Lymphs (auto) 0.74 L, Nucleated RBC % 0, Sodium 137, Potassium 3.7, Chloride 107, Carbon Dioxide 27.0, Anion Gap 3 L, BUN 18, Creatinine 1.09, Estim Creat Clear Calc 52.29, Est GFR (MDRD) Af Amer 84, Est GFR (MDRD) Non-Af 69, BUN/Creatinine Ratio 16.5, Glucose 98, Calcium 8.4 L Micro: Microbiology 11/02/22 01:55 Blood Culture (Wb) - Anticubital Left Bacteria Detection (PCR) - Final Strep not Strep pneumo 11/02/22 01:55 Blood Culture (Wb) - Anticubital Left Blood Culture - Final Streptococcus infantarius infa 11/02/22 02:08 Blood Culture (Wb) - Anticubital Left Blood Culture - Preliminary Alpha Hemolytic Streptococcus 11/02/22 05:40 Mucosa - Nasopharyngeal Respiratory Panel (PCR) - Final 11/02/22 03:50 Nasal Secretion SARS-CoV-2 Antigen (Rapid) - Final 11/01/22 19:45 Stool Stool Occult Blood (DEB) - Final Radiography Diagnostic Testing: Radiology Impression Transesophageal Echocardiogram 11/04/22 14:16 Interpretation Summary The estimated ejection fraction is 50 %. The left atrium is severely enlarged. The right atrium is moderately enlarged. Mild (1+) mitral valve insufficiency. No vegetations visualized Ordering Physician: Morteza Montoya Referring Physician: Rebecca Dinh Performed By: Joseph Veliz RCS Physical Exam Narrative Feeling ok, NIYAH planned, no fever, no n/v/d. 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 TTE showed no veg. No spine tenderness. Also this organism is linked with colon cancer, recommend colonoscopy if possible as an outpatient. Cont ceftriaxone. Will follow (2) Ciera esophagitis: PLAN: Plan 82 M who presented to the emergency department with multiple complaints to include fatigue, right-sided low back pain, and intermittent abdominal pain. EGD - Patchy, white plaques were found in the middle third of the esophagus and in the lower third of the esophagus. Biopsies were taken with a cold forceps for histology. Verification of patient identification for the specimen was done. Estimated blood loss was minimal. Three 5 mm angiodysplastic lesions with bleeding were found in the stomach. Coagulation for hemostasis using heater probe was successful. Estimated blood loss was minimal. The second portion of the duodenum was normal. Rec: Continue treatment for ciera esophagitis. Trend hemoglobin 11/05/22 1640 <Electronically signed by Darryl Pimentel DO> Cosigner Signature (if applicable): CC: ~ Signed ADDENDUM by Darryl Pimentel DO on 11/05/22 at 1640 Visit Charges Inpatient E&M: 80698 Subs Hosp L3 11/05/22 1640<Electronically signed by Darryl Pimentel DO> Cosigner Signature (if applicable): cc: ~* Signed [facility] Work Phone: Reason for referral (narrative)* Outpatient Procedure (Routine) - Authorized Specialty Diagnoses / Procedures Referred By Contac t Referred To Contact [facility] Diagnoses Thoracic aortic aneurysm without rupture (HCC) Examination of participant in clinical trial Procedures ECHO ECHO TTHRC R-T 2D W/WOM-MODE COMPL SPEC&COLReynaldo Gilman MD [id number] [place] [address] Referral ID Status Reason Start Date Expiration Date Visits Requested Visits Authorized [id number] Authorized Auto-Generat ed Referral 11/01/2021 09/25/2022 1 1 [facility] for referral (narrative)* Outpatient Procedure (Routine) - Authorized Specialty Diagnoses / Procedures Referred By Contac t Referred To Contact [facility] Diagnoses Thoracic aortic aneurysm without rupture, unspecified part (HCC) Examination of participant in clinical trial Procedures ECHO ECHO TTHRC R-T 2D W/WOM-MODE COMPL SPEC&COLNasim Moreau MD [address] [place] [address] [address] Referral ID Status Reason Start Date Expiration Date Visits Requested Visits Authorized [id number] Authorized Auto-Generat ed Referral 11/07/2022 07/15/2023 1 1 * MRI/CT (Routine) - Authorized Specialty Diagnoses / Procedures Referred By Contac t Referred To Contact CT IMAGING Diagnoses 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, unspecified part (HCC) Thoracic aortic aneurysm without rupture, unspecified part (HCC) Examination of participant in clinical trial Procedures CTA ABD/PEL WO/W IVCON CT ANGIO ABD&PLVIS CNTRST MTRL W/WO CNTRST Nasim Orozco MD [address] [place] [address] Ct Imaging Referral ID Status Reason Start Date Expiration Date Visits Requested Visits Authorized [id number] Authorized Auto-Generat ed Referral 11/07/2022 08/14/2023 1 1 * MRI/CT (Routine) - Authorized Specialty Diagnoses / Procedures Referred By Contac t Referred To Contact CT IMAGING Diagnoses Thoracic aortic aneurysm without rupture, unspecified part (HCC) Examination of participant in clinical trial Procedures CTA CHEST (NONGATED) WO/W IVCON CT ANGIOGRAPHY CHEST W/CONTRAST/NONCONTRAST Nasim Fleming MD [address] [place] [address] Ct Imaging Referral ID Status Reason Start Date Expiration Date Visits Requested Visits Authorized [id number] Authorized Auto-Generat ed Referral 11/07/2022 08/14/2023 1 1 [facility] for referral (narrative)* Outpatient Procedure (Routine) - Authorized Specialty Diagnoses / Procedures Referred By Contac t Referred [facility] Diagnoses Persistent atrial fibrillation (HCC) Procedures ECG COMPLETE ECG ROUTINE ECG W/LEAST 12 LDS W/I&R Garth Galaviz MD [address] [place] [address] [facility] [address] [place] [address] Referral ID Status Reason Start Date Expiration Date Visits Requested Visits Authorized [id number] Authorized Auto-Generat ed Referral 11/07/2022 11/07/2023 1 1 [facility] for referral (narrative)No reason for referral information availableWitham Health Services Services Work Phone: Summary Purpose Family History No Family History Records Found Relationship Condition Age at Onset Recorded Date/T sonya mother Hypertension Unknown father Coronary artery disease Unknown Hypertension Unknown grandmother Coronary artery disease Unknown Advance Directives No Advanced Directives Records FoundDocuments on File Type Date Recorded Patient Health Safety And Environment Manager Expl anation Advance Directive(s) 09/22/2020 6:45 PM Advance Directive(s) 09/21/2020 8:44 AM Advance Directive(s) 08/29/2020 10:02 AM Advance Directive(s) 08/29/2020 4:45 PM Advance Directive Response Recorded Date/ Time Living Will No October 31 8:38am Power of Drying Room Supervisor No October 31 8:38am Documents on File Type Date Recorded Patient Health Safety And Environment Manager Expl anation Advance Directive(s) 09/22/2020 6:45 PM Advance Directive(s) 09/21/2020 8:44 AM Advance Directive(s) 08/29/2020 10:02 AM Advance Directive(s) 08/29/2020 4:45 PM Advance Directive Response Recorded Date/ Time Living Will No October 31 7:38am Power of Drying Room Supervisor No October 31 021 7:38am Advance Directive Response Recorded Date/ Time Living Will No November 01 10:14pm Power of Drying Room Supervisor No November 01 023 10:14pm Advance Directive Response Recorded Date/ Time Living Will No November 13 11:12am Power of Drying Room Supervisor No November 13, 2022 11:12am Advance Directive Response Recorded Date/ Time Living Will No November 17, 2022 7:40pm Power of Drying Room Supervisor No November 7:40pm Advance Directive Response Recorded Date/ Time Name of Medical Power of Drying Room Supervisor November 27, 2022 12:12pm Living Will Yes November 27, 2022 12:12pm Power of Drying Room Supervisor Yes November 12:12pm Advance Directive Response Recorded Date/ Time Living Will No June 24, 2024 9:10am Do you have a [facility] Power of Drying Room Supervisor? No June 24, 2024 9:10am Chief Complaint and Reason for Visit Chief Complaint 4 M FU Reason for Visit History of left comm on carotid artery stent placement 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 Postoperative atrial fibrillation Essential hypertension History of aortic valve replacement with bioprosthetic valve Pure hypercholesterolemia Chief Complaint 7 m fu SLEEP APNEA Reason for Visit History of left comm on carotid artery stent placement 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 Postoperative atrial fibrillation Essential hypertension History of aortic valve replacement with bioprosthetic valve Pure hypercholesterolemia Chief Complaint 7 m fu SLEEP APNEA CSA,ASV S/U Reason for Visit History of left comm on carotid artery stent placement 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 Postoperative atrial fibrillation Essential hypertension History of aortic valve replacement with bioprosthetic valve Pure hypercholesterolemia Chief Complaint 6 M FU PALPS 30 DAY MONITOR BACK PAIN A-FIB RVR, HYPOTENSION, ACUTE ON CHRONIC ANEMIA A-FIB RVR, HYPOTENSION, ACUTE ON CHRONIC ANEMIA A-FIB RVR, HYPOTENSION, ACUTE ON CHRONIC ANEMIA A-FIB RVR, HYPOTENSION, ACUTE ON CHRONIC ANEMIA A-FIB RVR, HYPOTENSION, ACUTE ON CHRONIC ANEMIA A-FIB RVR, HYPOTENSION, ACUTE ON CHRONIC ANEMIA Reason for Visit Essential hypertensi on History of aortic valve replacement with bioprosthetic valve History of left common carotid artery stent placement 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 Pure hypercholesterolemia Postoperative atrial fibrillation Acute hypotension Acute right-sided low back pain Anticoagulant long-term use Atherosclerotic heart disease of [place] coronary artery without angina pectoris Atrial fibrillation with RVR Bacteremia Ciera esophagitis Elevated serum creatinine Fatigue Weakness Acute on chronic anemia Essential hypertension Chief Complaint 6 M FU PALPS 30 DAY MONITOR BACK PAIN A-FIB RVR, HYPOTENSION, ACUTE ON CHRONIC ANEMIA A-FIB RVR, HYPOTENSION, ACUTE ON CHRONIC ANEMIA A-FIB RVR, HYPOTENSION, ACUTE ON CHRONIC ANEMIA A-FIB RVR, HYPOTENSION, ACUTE ON CHRONIC ANEMIA A-FIB RVR, HYPOTENSION, ACUTE ON CHRONIC ANEMIA A-FIB RVR, HYPOTENSION, ACUTE ON CHRONIC ANEMIA A-FIB RVR, HYPOTENSION, ACUTE ON CHRONIC ANEMIA A-FIB RVR, HYPOTENSION, ACUTE ON CHRONIC ANEMIA Reason for Visit Essential hypertensi on History of aortic valve replacement with bioprosthetic valve History of left common carotid artery stent placement 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 Pure hypercholesterolemia Postoperative atrial fibrillation Anticoagulant long-term use Atherosclerotic heart disease of [place] coronary artery without angina pectoris Atrial fibrillation with RVR Essential hypertension Chief Complaint 6 M FU PALPS 30 DAY MONITOR BACK PAIN A-FIB RVR, HYPOTENSION, ACUTE ON CHRONIC ANEMIA A-FIB RVR, HYPOTENSION, ACUTE ON CHRONIC ANEMIA A-FIB RVR, HYPOTENSION, ACUTE ON CHRONIC ANEMIA A-FIB RVR, HYPOTENSION, ACUTE ON CHRONIC ANEMIA A-FIB RVR, HYPOTENSION, ACUTE ON CHRONIC ANEMIA A-FIB RVR, HYPOTENSION, ACUTE ON CHRONIC ANEMIA A-FIB RVR, HYPOTENSION, ACUTE ON CHRONIC ANEMIA A-FIB RVR, HYPOTENSION, ACUTE ON CHRONIC ANEMIA palpitations Reason for Visit Essential hypertensi on History of aortic valve replacement with bioprosthetic valve History of left common carotid artery stent placement 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 Pure hypercholesterolemia Postoperative atrial fibrillation Anticoagulant long-term use Atherosclerotic heart disease of [place] coronary artery without angina pectoris Atrial fibrillation with RVR Essential hypertension Chief Complaint PALPS 30 DAY MONITOR BACK PAIN A-FIB RVR, HYPOTENSION, ACUTE ON CHRONIC ANEMIA A-FIB RVR, HYPOTENSION, ACUTE ON CHRONIC ANEMIA A-FIB RVR, HYPOTENSION, ACUTE ON CHRONIC ANEMIA A-FIB RVR, HYPOTENSION, ACUTE ON CHRONIC ANEMIA A-FIB RVR, HYPOTENSION, ACUTE ON CHRONIC ANEMIA A-FIB RVR, HYPOTENSION, ACUTE ON CHRONIC ANEMIA A-FIB RVR, HYPOTENSION, ACUTE ON CHRONIC ANEMIA A-FIB RVR, HYPOTENSION, ACUTE ON CHRONIC ANEMIA palpitations E ORDER BACTEREMIA, LUMBAR DISCITIS BACTEREMIA, LUMBAR DISCITIS Reason for Visit Anticoagulant long-t erm use Atherosclerotic heart disease of [place] coronary artery without angina pectoris Atrial fibrillation with RVR Essential hypertension 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 Streptococcal bacteremia 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 Chief Complaint PALPS 30 DAY MONITOR BACK PAIN A-FIB RVR, HYPOTENSION, ACUTE ON CHRONIC ANEMIA A-FIB RVR, HYPOTENSION, ACUTE ON CHRONIC ANEMIA A-FIB RVR, HYPOTENSION, ACUTE ON CHRONIC ANEMIA A-FIB RVR, HYPOTENSION, ACUTE ON CHRONIC ANEMIA A-FIB RVR, HYPOTENSION, ACUTE ON CHRONIC ANEMIA A-FIB RVR, HYPOTENSION, ACUTE ON CHRONIC ANEMIA A-FIB RVR, HYPOTENSION, ACUTE ON CHRONIC ANEMIA A-FIB RVR, HYPOTENSION, ACUTE ON CHRONIC ANEMIA palpitations E ORDER BACTEREMIA, LUMBAR DISCITIS BACTEREMIA, LUMBAR DISCITIS BACTEREMIA, LUMBAR DISCITIS BACTEREMIA, LUMBAR DISCITIS BACTEREMIA, LUMBAR DISCITIS Reason for Visit Anticoagulant long-t erm use Atherosclerotic heart disease of [place] coronary artery without angina pectoris Atrial fibrillation with RVR Essential hypertension 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 Streptococcal bacteremia 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 Chief Complaint PALPS 30 DAY MONITOR BACK PAIN A-FIB RVR, HYPOTENSION, ACUTE ON CHRONIC ANEMIA A-FIB RVR, HYPOTENSION, ACUTE ON CHRONIC ANEMIA A-FIB RVR, HYPOTENSION, ACUTE ON CHRONIC ANEMIA A-FIB RVR, HYPOTENSION, ACUTE ON CHRONIC ANEMIA A-FIB RVR, HYPOTENSION, ACUTE ON CHRONIC ANEMIA A-FIB RVR, HYPOTENSION, ACUTE ON CHRONIC ANEMIA A-FIB RVR, HYPOTENSION, ACUTE ON CHRONIC ANEMIA A-FIB RVR, HYPOTENSION, ACUTE ON CHRONIC ANEMIA palpitations E ORDER BACTEREMIA, LUMBAR DISCITIS BACTEREMIA, LUMBAR DISCITIS BACTEREMIA, LUMBAR DISCITIS BACTEREMIA, LUMBAR DISCITIS BACTEREMIA, LUMBAR DISCITIS IV antibiotics Reason for Visit Anticoagulant long-t erm use Atherosclerotic heart disease of [place] coronary artery without angina pectoris Atrial fibrillation with RVR Essential hypertension 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 Streptococcal bacteremia 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 Chief Complaint PALPS 30 DAY MONITOR BACK PAIN A-FIB RVR, HYPOTENSION, ACUTE ON CHRONIC ANEMIA A-FIB RVR, HYPOTENSION, ACUTE ON CHRONIC ANEMIA A-FIB RVR, HYPOTENSION, ACUTE ON CHRONIC ANEMIA A-FIB RVR, HYPOTENSION, ACUTE ON CHRONIC ANEMIA A-FIB RVR, HYPOTENSION, ACUTE ON CHRONIC ANEMIA A-FIB RVR, HYPOTENSION, ACUTE ON CHRONIC ANEMIA A-FIB RVR, HYPOTENSION, ACUTE ON CHRONIC ANEMIA A-FIB RVR, HYPOTENSION, ACUTE ON CHRONIC ANEMIA palpitations E ORDER BACTEREMIA, LUMBAR DISCITIS BACTEREMIA, LUMBAR DISCITIS BACTEREMIA, LUMBAR DISCITIS BACTEREMIA, LUMBAR DISCITIS BACTEREMIA, LUMBAR DISCITIS IV antibiotics IV antibiotics Reason for Visit Anticoagulant long-t erm use Atherosclerotic heart disease of [place] coronary artery without angina pectoris Atrial fibrillation with RVR Essential hypertension Streptococcal bacteremia 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 Chief Complaint PALPS 30 DAY MONITOR BACK PAIN A-FIB RVR, HYPOTENSION, ACUTE ON CHRONIC ANEMIA A-FIB RVR, HYPOTENSION, ACUTE ON CHRONIC ANEMIA A-FIB RVR, HYPOTENSION, ACUTE ON CHRONIC ANEMIA A-FIB RVR, HYPOTENSION, ACUTE ON CHRONIC ANEMIA A-FIB RVR, HYPOTENSION, ACUTE ON CHRONIC ANEMIA A-FIB RVR, HYPOTENSION, ACUTE ON CHRONIC ANEMIA A-FIB RVR, HYPOTENSION, ACUTE ON CHRONIC ANEMIA A-FIB RVR, HYPOTENSION, ACUTE ON CHRONIC ANEMIA palpitations E ORDER BACTEREMIA, LUMBAR DISCITIS BACTEREMIA, LUMBAR DISCITIS BACTEREMIA, LUMBAR DISCITIS BACTEREMIA, LUMBAR DISCITIS BACTEREMIA, LUMBAR DISCITIS IV antibiotics IV antibiotics IV antibiotics Reason for Visit Anticoagulant long-t erm use Atherosclerotic heart disease of [place] coronary artery without angina pectoris Atrial fibrillation with RVR Essential hypertension Streptococcal bacteremia 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 Chief Complaint PALPS 30 DAY MONITOR BACK PAIN A-FIB RVR, HYPOTENSION, ACUTE ON CHRONIC ANEMIA A-FIB RVR, HYPOTENSION, ACUTE ON CHRONIC ANEMIA A-FIB RVR, HYPOTENSION, ACUTE ON CHRONIC ANEMIA A-FIB RVR, HYPOTENSION, ACUTE ON CHRONIC ANEMIA A-FIB RVR, HYPOTENSION, ACUTE ON CHRONIC ANEMIA A-FIB RVR, HYPOTENSION, ACUTE ON CHRONIC ANEMIA A-FIB RVR, HYPOTENSION, ACUTE ON CHRONIC ANEMIA A-FIB RVR, HYPOTENSION, ACUTE ON CHRONIC ANEMIA palpitations E ORDER BACTEREMIA, LUMBAR DISCITIS BACTEREMIA, LUMBAR DISCITIS BACTEREMIA, LUMBAR DISCITIS BACTEREMIA, LUMBAR DISCITIS BACTEREMIA, LUMBAR DISCITIS IV antibiotics IV antibiotics IV antibiotics IV antibiotics IV antibiotics Reason for Visit Anticoagulant long-t erm use Atherosclerotic heart disease of [place] coronary artery without angina pectoris Atrial fibrillation with RVR Essential hypertension Streptococcal bacteremia 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 Chief Complaint PALPS 30 DAY MONITOR BACK PAIN A-FIB RVR, HYPOTENSION, ACUTE ON CHRONIC ANEMIA A-FIB RVR, HYPOTENSION, ACUTE ON CHRONIC ANEMIA A-FIB RVR, HYPOTENSION, ACUTE ON CHRONIC ANEMIA A-FIB RVR, HYPOTENSION, ACUTE ON CHRONIC ANEMIA A-FIB RVR, HYPOTENSION, ACUTE ON CHRONIC ANEMIA A-FIB RVR, HYPOTENSION, ACUTE ON CHRONIC ANEMIA A-FIB RVR, HYPOTENSION, ACUTE ON CHRONIC ANEMIA A-FIB RVR, HYPOTENSION, ACUTE ON CHRONIC ANEMIA palpitations E ORDER BACTEREMIA, LUMBAR DISCITIS BACTEREMIA, LUMBAR DISCITIS BACTEREMIA, LUMBAR DISCITIS BACTEREMIA, LUMBAR DISCITIS BACTEREMIA, LUMBAR DISCITIS IV antibiotics IV antibiotics IV antibiotics IV antibiotics IV antibiotics IV antibiotics Reason for Visit Anticoagulant long-t erm use Atherosclerotic heart disease of [place] coronary artery without angina pectoris Atrial fibrillation with RVR Essential hypertension Streptococcal bacteremia 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 Chief Complaint PALPS 30 DAY MONITOR BACK PAIN A-FIB RVR, HYPOTENSION, ACUTE ON CHRONIC ANEMIA A-FIB RVR, HYPOTENSION, ACUTE ON CHRONIC ANEMIA A-FIB RVR, HYPOTENSION, ACUTE ON CHRONIC ANEMIA A-FIB RVR, HYPOTENSION, ACUTE ON CHRONIC ANEMIA A-FIB RVR, HYPOTENSION, ACUTE ON CHRONIC ANEMIA A-FIB RVR, HYPOTENSION, ACUTE ON CHRONIC ANEMIA A-FIB RVR, HYPOTENSION, ACUTE ON CHRONIC ANEMIA A-FIB RVR, HYPOTENSION, ACUTE ON CHRONIC ANEMIA palpitations E ORDER BACTEREMIA, LUMBAR DISCITIS BACTEREMIA, LUMBAR DISCITIS BACTEREMIA, LUMBAR DISCITIS BACTEREMIA, LUMBAR DISCITIS BACTEREMIA, LUMBAR DISCITIS IV antibiotics IV antibiotics IV antibiotics IV antibiotics IV antibiotics IV antibiotics IV antibiotics Reason for Visit Anticoagulant long-t erm use Atherosclerotic heart disease of [place] coronary artery without angina pectoris Atrial fibrillation with RVR Essential hypertension Streptococcal bacteremia 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 Chief Complaint PALPS 30 DAY MONITOR BACK PAIN A-FIB RVR, HYPOTENSION, ACUTE ON CHRONIC ANEMIA A-FIB RVR, HYPOTENSION, ACUTE ON CHRONIC ANEMIA A-FIB RVR, HYPOTENSION, ACUTE ON CHRONIC ANEMIA A-FIB RVR, HYPOTENSION, ACUTE ON CHRONIC ANEMIA A-FIB RVR, HYPOTENSION, ACUTE ON CHRONIC ANEMIA A-FIB RVR, HYPOTENSION, ACUTE ON CHRONIC ANEMIA A-FIB RVR, HYPOTENSION, ACUTE ON CHRONIC ANEMIA A-FIB RVR, HYPOTENSION, ACUTE ON CHRONIC ANEMIA palpitations E ORDER BACTEREMIA, LUMBAR DISCITIS BACTEREMIA, LUMBAR DISCITIS BACTEREMIA, LUMBAR DISCITIS BACTEREMIA, LUMBAR DISCITIS BACTEREMIA, LUMBAR DISCITIS IV antibiotics IV antibiotics IV antibiotics IV antibiotics IV antibiotics IV antibiotics IV antibiotics IV antibiotics Reason for Visit Anticoagulant long-t erm use Atherosclerotic heart disease of [place] coronary artery without angina pectoris Atrial fibrillation with RVR Essential hypertension Streptococcal bacteremia 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 Chief Complaint BACK PAIN A-FIB RVR, HYPOTENSION, ACUTE ON CHRONIC ANEMIA A-FIB RVR, HYPOTENSION, ACUTE ON CHRONIC ANEMIA A-FIB RVR, HYPOTENSION, ACUTE ON CHRONIC ANEMIA A-FIB RVR, HYPOTENSION, ACUTE ON CHRONIC ANEMIA A-FIB RVR, HYPOTENSION, ACUTE ON CHRONIC ANEMIA A-FIB RVR, HYPOTENSION, ACUTE ON CHRONIC ANEMIA A-FIB RVR, HYPOTENSION, ACUTE ON CHRONIC ANEMIA A-FIB RVR, HYPOTENSION, ACUTE ON CHRONIC ANEMIA palpitations E ORDER BACTEREMIA, LUMBAR DISCITIS BACTEREMIA, LUMBAR DISCITIS BACTEREMIA, LUMBAR DISCITIS BACTEREMIA, LUMBAR DISCITIS BACTEREMIA, LUMBAR DISCITIS IV antibiotics IV antibiotics IV antibiotics IV antibiotics IV antibiotics IV antibiotics IV antibiotics IV antibiotics IV antibiotics Reason for Visit Anticoagulant long-t erm use Atherosclerotic heart disease of [place] coronary artery without angina pectoris Atrial fibrillation with RVR Essential hypertension Streptococcal bacteremia 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 Chief Complaint BACK PAIN A-FIB RVR, HYPOTENSION, ACUTE ON CHRONIC ANEMIA A-FIB RVR, HYPOTENSION, ACUTE ON CHRONIC ANEMIA A-FIB RVR, HYPOTENSION, ACUTE ON CHRONIC ANEMIA A-FIB RVR, HYPOTENSION, ACUTE ON CHRONIC ANEMIA A-FIB RVR, HYPOTENSION, ACUTE ON CHRONIC ANEMIA A-FIB RVR, HYPOTENSION, ACUTE ON CHRONIC ANEMIA A-FIB RVR, HYPOTENSION, ACUTE ON CHRONIC ANEMIA A-FIB RVR, HYPOTENSION, ACUTE ON CHRONIC ANEMIA palpitations E ORDER BACTEREMIA, LUMBAR DISCITIS BACTEREMIA, LUMBAR DISCITIS BACTEREMIA, LUMBAR DISCITIS BACTEREMIA, LUMBAR DISCITIS BACTEREMIA, LUMBAR DISCITIS IV antibiotics IV antibiotics IV antibiotics IV antibiotics IV antibiotics IV antibiotics IV antibiotics IV antibiotics IV antibiotics IV antibiotics Reason for Visit Anticoagulant long-t erm use Atherosclerotic heart disease of [place] coronary artery without angina pectoris Atrial fibrillation with RVR Essential hypertension Streptococcal bacteremia 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 Chief Complaint BACK PAIN A-FIB RVR, HYPOTENSION, ACUTE ON CHRONIC ANEMIA A-FIB RVR, HYPOTENSION, ACUTE ON CHRONIC ANEMIA A-FIB RVR, HYPOTENSION, ACUTE ON CHRONIC ANEMIA A-FIB RVR, HYPOTENSION, ACUTE ON CHRONIC ANEMIA A-FIB RVR, HYPOTENSION, ACUTE ON CHRONIC ANEMIA A-FIB RVR, HYPOTENSION, ACUTE ON CHRONIC ANEMIA A-FIB RVR, HYPOTENSION, ACUTE ON CHRONIC ANEMIA A-FIB RVR, HYPOTENSION, ACUTE ON CHRONIC ANEMIA palpitations E ORDER BACTEREMIA, LUMBAR DISCITIS BACTEREMIA, LUMBAR DISCITIS BACTEREMIA, LUMBAR DISCITIS BACTEREMIA, LUMBAR DISCITIS BACTEREMIA, LUMBAR DISCITIS IV antibiotics IV antibiotics IV antibiotics IV antibiotics IV antibiotics IV antibiotics IV antibiotics IV antibiotics IV antibiotics IV antibiotics IV antibiotics Reason for Visit Anticoagulant long-t erm use Atherosclerotic heart disease of [place] coronary artery without angina pectoris Atrial fibrillation with RVR Essential hypertension Streptococcal bacteremia 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 Chief Complaint BACK PAIN A-FIB RVR, HYPOTENSION, ACUTE ON CHRONIC ANEMIA A-FIB RVR, HYPOTENSION, ACUTE ON CHRONIC ANEMIA A-FIB RVR, HYPOTENSION, ACUTE ON CHRONIC ANEMIA A-FIB RVR, HYPOTENSION, ACUTE ON CHRONIC ANEMIA A-FIB RVR, HYPOTENSION, ACUTE ON CHRONIC ANEMIA A-FIB RVR, HYPOTENSION, ACUTE ON CHRONIC ANEMIA A-FIB RVR, HYPOTENSION, ACUTE ON CHRONIC ANEMIA A-FIB RVR, HYPOTENSION, ACUTE ON CHRONIC ANEMIA palpitations E ORDER BACTEREMIA, LUMBAR DISCITIS BACTEREMIA, LUMBAR DISCITIS BACTEREMIA, LUMBAR DISCITIS BACTEREMIA, LUMBAR DISCITIS BACTEREMIA, LUMBAR DISCITIS IV antibiotics IV antibiotics IV antibiotics IV antibiotics IV antibiotics IV antibiotics IV antibiotics IV antibiotics IV antibiotics IV antibiotics IV antibiotics IV antibiotics IV antibiotics IV antibiotics IV antibiotics E-ORDER IV antibiotics IV antibiotics IV antibiotics Reason for Visit Anticoagulant long-t erm use Atherosclerotic heart disease of [place] coronary artery without angina pectoris Atrial fibrillation with RVR Essential hypertension Streptococcal bacteremia 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 Chief Complaint BACK PAIN A-FIB RVR, HYPOTENSION, ACUTE ON CHRONIC ANEMIA A-FIB RVR, HYPOTENSION, ACUTE ON CHRONIC ANEMIA A-FIB RVR, HYPOTENSION, ACUTE ON CHRONIC ANEMIA A-FIB RVR, HYPOTENSION, ACUTE ON CHRONIC ANEMIA A-FIB RVR, HYPOTENSION, ACUTE ON CHRONIC ANEMIA A-FIB RVR, HYPOTENSION, ACUTE ON CHRONIC ANEMIA A-FIB RVR, HYPOTENSION, ACUTE ON CHRONIC ANEMIA A-FIB RVR, HYPOTENSION, ACUTE ON CHRONIC ANEMIA palpitations E ORDER BACTEREMIA, LUMBAR DISCITIS BACTEREMIA, LUMBAR DISCITIS BACTEREMIA, LUMBAR DISCITIS BACTEREMIA, LUMBAR DISCITIS BACTEREMIA, LUMBAR DISCITIS IV antibiotics IV antibiotics IV antibiotics IV antibiotics IV antibiotics IV antibiotics IV antibiotics IV antibiotics IV antibiotics IV antibiotics IV antibiotics IV antibiotics IV antibiotics IV antibiotics IV antibiotics E-ORDER IV antibiotics IV antibiotics IV antibiotics IV antibiotics Reason for Visit Anticoagulant long-t erm use Atherosclerotic heart disease of [place] coronary artery without angina pectoris Atrial fibrillation with RVR Essential hypertension Streptococcal bacteremia 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 Chief Complaint BACK PAIN A-FIB RVR, HYPOTENSION, ACUTE ON CHRONIC ANEMIA A-FIB RVR, HYPOTENSION, ACUTE ON CHRONIC ANEMIA A-FIB RVR, HYPOTENSION, ACUTE ON CHRONIC ANEMIA A-FIB RVR, HYPOTENSION, ACUTE ON CHRONIC ANEMIA A-FIB RVR, HYPOTENSION, ACUTE ON CHRONIC ANEMIA A-FIB RVR, HYPOTENSION, ACUTE ON CHRONIC ANEMIA A-FIB RVR, HYPOTENSION, ACUTE ON CHRONIC ANEMIA A-FIB RVR, HYPOTENSION, ACUTE ON CHRONIC ANEMIA palpitations E ORDER BACTEREMIA, LUMBAR DISCITIS BACTEREMIA, LUMBAR DISCITIS BACTEREMIA, LUMBAR DISCITIS BACTEREMIA, LUMBAR DISCITIS BACTEREMIA, LUMBAR DISCITIS IV antibiotics IV antibiotics IV antibiotics IV antibiotics IV antibiotics IV antibiotics IV antibiotics IV antibiotics IV antibiotics IV antibiotics IV antibiotics IV antibiotics IV antibiotics IV antibiotics IV antibiotics E-ORDER IV antibiotics IV antibiotics IV antibiotics IV antibiotics port draw & drsg change Reason for Visit Anticoagulant long-t erm use Atherosclerotic heart disease of [place] coronary artery without angina pectoris Atrial fibrillation with RVR Essential hypertension Streptococcal bacteremia 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 Chief Complaint BACK PAIN A-FIB RVR, HYPOTENSION, ACUTE ON CHRONIC ANEMIA A-FIB RVR, HYPOTENSION, ACUTE ON CHRONIC ANEMIA A-FIB RVR, HYPOTENSION, ACUTE ON CHRONIC ANEMIA A-FIB RVR, HYPOTENSION, ACUTE ON CHRONIC ANEMIA A-FIB RVR, HYPOTENSION, ACUTE ON CHRONIC ANEMIA A-FIB RVR, HYPOTENSION, ACUTE ON CHRONIC ANEMIA A-FIB RVR, HYPOTENSION, ACUTE ON CHRONIC ANEMIA A-FIB RVR, HYPOTENSION, ACUTE ON CHRONIC ANEMIA palpitations E ORDER BACTEREMIA, LUMBAR DISCITIS BACTEREMIA, LUMBAR DISCITIS BACTEREMIA, LUMBAR DISCITIS BACTEREMIA, LUMBAR DISCITIS BACTEREMIA, LUMBAR DISCITIS IV antibiotics IV antibiotics IV antibiotics IV antibiotics IV antibiotics IV antibiotics IV antibiotics IV antibiotics IV antibiotics IV antibiotics IV antibiotics IV antibiotics IV antibiotics IV antibiotics IV antibiotics E-ORDER IV antibiotics IV antibiotics IV antibiotics IV antibiotics port draw & drsg change IV antibiotics Reason for Visit Anticoagulant long-t erm use Atherosclerotic heart disease of [place] coronary artery without angina pectoris Atrial fibrillation with RVR Essential hypertension Streptococcal bacteremia 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 Chief Complaint BACK PAIN A-FIB RVR, HYPOTENSION, ACUTE ON CHRONIC ANEMIA A-FIB RVR, HYPOTENSION, ACUTE ON CHRONIC ANEMIA A-FIB RVR, HYPOTENSION, ACUTE ON CHRONIC ANEMIA A-FIB RVR, HYPOTENSION, ACUTE ON CHRONIC ANEMIA A-FIB RVR, HYPOTENSION, ACUTE ON CHRONIC ANEMIA A-FIB RVR, HYPOTENSION, ACUTE ON CHRONIC ANEMIA A-FIB RVR, HYPOTENSION, ACUTE ON CHRONIC ANEMIA A-FIB RVR, HYPOTENSION, ACUTE ON CHRONIC ANEMIA palpitations E ORDER BACTEREMIA, LUMBAR DISCITIS BACTEREMIA, LUMBAR DISCITIS BACTEREMIA, LUMBAR DISCITIS BACTEREMIA, LUMBAR DISCITIS BACTEREMIA, LUMBAR DISCITIS IV antibiotics IV antibiotics IV antibiotics IV antibiotics IV antibiotics IV antibiotics IV antibiotics IV antibiotics IV antibiotics IV antibiotics IV antibiotics IV antibiotics IV antibiotics IV antibiotics IV antibiotics E-ORDER IV antibiotics IV antibiotics IV antibiotics IV antibiotics port draw & drsg change IV antibiotics IV antibiotics Reason for Visit Anticoagulant long-t erm use Atherosclerotic heart disease of [place] coronary artery without angina pectoris Atrial fibrillation with RVR Essential hypertension Streptococcal bacteremia 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 Chief Complaint BACK PAIN A-FIB RVR, HYPOTENSION, ACUTE ON CHRONIC ANEMIA A-FIB RVR, HYPOTENSION, ACUTE ON CHRONIC ANEMIA A-FIB RVR, HYPOTENSION, ACUTE ON CHRONIC ANEMIA A-FIB RVR, HYPOTENSION, ACUTE ON CHRONIC ANEMIA A-FIB RVR, HYPOTENSION, ACUTE ON CHRONIC ANEMIA A-FIB RVR, HYPOTENSION, ACUTE ON CHRONIC ANEMIA A-FIB RVR, HYPOTENSION, ACUTE ON CHRONIC ANEMIA A-FIB RVR, HYPOTENSION, ACUTE ON CHRONIC ANEMIA palpitations E ORDER BACTEREMIA, LUMBAR DISCITIS BACTEREMIA, LUMBAR DISCITIS BACTEREMIA, LUMBAR DISCITIS BACTEREMIA, LUMBAR DISCITIS BACTEREMIA, LUMBAR DISCITIS IV antibiotics IV antibiotics IV antibiotics IV antibiotics IV antibiotics IV antibiotics IV antibiotics IV antibiotics IV antibiotics IV antibiotics IV antibiotics IV antibiotics IV antibiotics IV antibiotics IV antibiotics E-ORDER IV antibiotics IV antibiotics IV antibiotics IV antibiotics port draw & drsg change IV antibiotics IV antibiotics IV antibiotics Reason for Visit Anticoagulant long-t erm use Atherosclerotic heart disease of [place] coronary artery without angina pectoris Atrial fibrillation with RVR Essential hypertension Streptococcal bacteremia 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 Chief Complaint BACK PAIN A-FIB RVR, HYPOTENSION, ACUTE ON CHRONIC ANEMIA A-FIB RVR, HYPOTENSION, ACUTE ON CHRONIC ANEMIA A-FIB RVR, HYPOTENSION, ACUTE ON CHRONIC ANEMIA A-FIB RVR, HYPOTENSION, ACUTE ON CHRONIC ANEMIA A-FIB RVR, HYPOTENSION, ACUTE ON CHRONIC ANEMIA A-FIB RVR, HYPOTENSION, ACUTE ON CHRONIC ANEMIA A-FIB RVR, HYPOTENSION, ACUTE ON CHRONIC ANEMIA A-FIB RVR, HYPOTENSION, ACUTE ON CHRONIC ANEMIA palpitations E ORDER BACTEREMIA, LUMBAR DISCITIS BACTEREMIA, LUMBAR DISCITIS BACTEREMIA, LUMBAR DISCITIS BACTEREMIA, LUMBAR DISCITIS BACTEREMIA, LUMBAR DISCITIS IV antibiotics IV antibiotics IV antibiotics IV antibiotics IV antibiotics IV antibiotics IV antibiotics IV antibiotics IV antibiotics IV antibiotics IV antibiotics IV antibiotics IV antibiotics IV antibiotics IV antibiotics E-ORDER IV antibiotics IV antibiotics IV antibiotics IV antibiotics port draw & drsg change IV antibiotics IV antibiotics IV antibiotics IV antibiotics Reason for Visit Anticoagulant long-t erm use Atherosclerotic heart disease of [place] coronary artery without angina pectoris Atrial fibrillation with RVR Essential hypertension Streptococcal bacteremia 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 Chief Complaint BACK PAIN A-FIB RVR, HYPOTENSION, ACUTE ON CHRONIC ANEMIA A-FIB RVR, HYPOTENSION, ACUTE ON CHRONIC ANEMIA A-FIB RVR, HYPOTENSION, ACUTE ON CHRONIC ANEMIA A-FIB RVR, HYPOTENSION, ACUTE ON CHRONIC ANEMIA A-FIB RVR, HYPOTENSION, ACUTE ON CHRONIC ANEMIA A-FIB RVR, HYPOTENSION, ACUTE ON CHRONIC ANEMIA A-FIB RVR, HYPOTENSION, ACUTE ON CHRONIC ANEMIA A-FIB RVR, HYPOTENSION, ACUTE ON CHRONIC ANEMIA palpitations E ORDER BACTEREMIA, LUMBAR DISCITIS BACTEREMIA, LUMBAR DISCITIS BACTEREMIA, LUMBAR DISCITIS BACTEREMIA, LUMBAR DISCITIS BACTEREMIA, LUMBAR DISCITIS IV antibiotics IV antibiotics IV antibiotics IV antibiotics IV antibiotics IV antibiotics IV antibiotics IV antibiotics IV antibiotics IV antibiotics IV antibiotics IV antibiotics IV antibiotics IV antibiotics IV antibiotics E-ORDER IV antibiotics IV antibiotics IV antibiotics IV antibiotics port draw & drsg change IV antibiotics IV antibiotics IV antibiotics IV antibiotics IV antibiotics Reason for Visit Anticoagulant long-t erm use Atherosclerotic heart disease of [place] coronary artery without angina pectoris Atrial fibrillation with RVR Essential hypertension Streptococcal bacteremia 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 Chief Complaint BACK PAIN A-FIB RVR, HYPOTENSION, ACUTE ON CHRONIC ANEMIA A-FIB RVR, HYPOTENSION, ACUTE ON CHRONIC ANEMIA A-FIB RVR, HYPOTENSION, ACUTE ON CHRONIC ANEMIA A-FIB RVR, HYPOTENSION, ACUTE ON CHRONIC ANEMIA A-FIB RVR, HYPOTENSION, ACUTE ON CHRONIC ANEMIA A-FIB RVR, HYPOTENSION, ACUTE ON CHRONIC ANEMIA A-FIB RVR, HYPOTENSION, ACUTE ON CHRONIC ANEMIA A-FIB RVR, HYPOTENSION, ACUTE ON CHRONIC ANEMIA palpitations E ORDER BACTEREMIA, LUMBAR DISCITIS BACTEREMIA, LUMBAR DISCITIS BACTEREMIA, LUMBAR DISCITIS BACTEREMIA, LUMBAR DISCITIS BACTEREMIA, LUMBAR DISCITIS IV antibiotics IV antibiotics IV antibiotics IV antibiotics IV antibiotics IV antibiotics IV antibiotics IV antibiotics IV antibiotics IV antibiotics IV antibiotics IV antibiotics IV antibiotics IV antibiotics IV antibiotics E-ORDER IV antibiotics IV antibiotics IV antibiotics IV antibiotics port draw & drsg change IV antibiotics IV antibiotics IV antibiotics IV antibiotics IV antibiotics IV antibiotics Reason for Visit Anticoagulant long-t erm use Atherosclerotic heart disease of [place] coronary artery without angina pectoris Atrial fibrillation with RVR Essential hypertension Streptococcal bacteremia 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 Chief Complaint BACK PAIN A-FIB RVR, HYPOTENSION, ACUTE ON CHRONIC ANEMIA A-FIB RVR, HYPOTENSION, ACUTE ON CHRONIC ANEMIA A-FIB RVR, HYPOTENSION, ACUTE ON CHRONIC ANEMIA A-FIB RVR, HYPOTENSION, ACUTE ON CHRONIC ANEMIA A-FIB RVR, HYPOTENSION, ACUTE ON CHRONIC ANEMIA A-FIB RVR, HYPOTENSION, ACUTE ON CHRONIC ANEMIA A-FIB RVR, HYPOTENSION, ACUTE ON CHRONIC ANEMIA A-FIB RVR, HYPOTENSION, ACUTE ON CHRONIC ANEMIA palpitations E ORDER BACTEREMIA, LUMBAR DISCITIS BACTEREMIA, LUMBAR DISCITIS BACTEREMIA, LUMBAR DISCITIS BACTEREMIA, LUMBAR DISCITIS BACTEREMIA, LUMBAR DISCITIS IV antibiotics IV antibiotics IV antibiotics IV antibiotics IV antibiotics IV antibiotics IV antibiotics IV antibiotics IV antibiotics IV antibiotics IV antibiotics IV antibiotics IV antibiotics IV antibiotics IV antibiotics E-ORDER IV antibiotics IV antibiotics IV antibiotics IV antibiotics port draw & drsg change IV antibiotics IV antibiotics IV antibiotics IV antibiotics IV antibiotics IV antibiotics PICC draw Reason for Visit Anticoagulant long-t erm use Atherosclerotic heart disease of [place] coronary artery without angina pectoris Atrial fibrillation with RVR Essential hypertension Streptococcal bacteremia 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 Chief Complaint BACK PAIN A-FIB RVR, HYPOTENSION, ACUTE ON CHRONIC ANEMIA A-FIB RVR, HYPOTENSION, ACUTE ON CHRONIC ANEMIA A-FIB RVR, HYPOTENSION, ACUTE ON CHRONIC ANEMIA A-FIB RVR, HYPOTENSION, ACUTE ON CHRONIC ANEMIA A-FIB RVR, HYPOTENSION, ACUTE ON CHRONIC ANEMIA A-FIB RVR, HYPOTENSION, ACUTE ON CHRONIC ANEMIA A-FIB RVR, HYPOTENSION, ACUTE ON CHRONIC ANEMIA A-FIB RVR, HYPOTENSION, ACUTE ON CHRONIC ANEMIA palpitations E ORDER BACTEREMIA, LUMBAR DISCITIS BACTEREMIA, LUMBAR DISCITIS BACTEREMIA, LUMBAR DISCITIS BACTEREMIA, LUMBAR DISCITIS BACTEREMIA, LUMBAR DISCITIS IV antibiotics IV antibiotics IV antibiotics IV antibiotics IV antibiotics IV antibiotics IV antibiotics IV antibiotics IV antibiotics IV antibiotics IV antibiotics IV antibiotics IV antibiotics IV antibiotics IV antibiotics E-ORDER IV antibiotics IV antibiotics IV antibiotics IV antibiotics port draw & drsg change IV antibiotics IV antibiotics IV antibiotics IV antibiotics IV antibiotics IV antibiotics PICC draw IV antibiotics Reason for Visit Anticoagulant long-t erm use Atherosclerotic heart disease of [place] coronary artery without angina pectoris Atrial fibrillation with RVR Essential hypertension Streptococcal bacteremia 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 Chief Complaint BACK PAIN A-FIB RVR, HYPOTENSION, ACUTE ON CHRONIC ANEMIA A-FIB RVR, HYPOTENSION, ACUTE ON CHRONIC ANEMIA A-FIB RVR, HYPOTENSION, ACUTE ON CHRONIC ANEMIA A-FIB RVR, HYPOTENSION, ACUTE ON CHRONIC ANEMIA A-FIB RVR, HYPOTENSION, ACUTE ON CHRONIC ANEMIA A-FIB RVR, HYPOTENSION, ACUTE ON CHRONIC ANEMIA A-FIB RVR, HYPOTENSION, ACUTE ON CHRONIC ANEMIA A-FIB RVR, HYPOTENSION, ACUTE ON CHRONIC ANEMIA palpitations E ORDER BACTEREMIA, LUMBAR DISCITIS BACTEREMIA, LUMBAR DISCITIS BACTEREMIA, LUMBAR DISCITIS BACTEREMIA, LUMBAR DISCITIS BACTEREMIA, LUMBAR DISCITIS IV antibiotics IV antibiotics IV antibiotics IV antibiotics IV antibiotics IV antibiotics IV antibiotics IV antibiotics IV antibiotics IV antibiotics IV antibiotics IV antibiotics IV antibiotics IV antibiotics IV antibiotics E-ORDER IV antibiotics IV antibiotics IV antibiotics IV antibiotics port draw & drsg change IV antibiotics IV antibiotics IV antibiotics IV antibiotics IV antibiotics IV antibiotics PICC draw IV antibiotics IV antibiotics Reason for Visit Anticoagulant long-t erm use Atherosclerotic heart disease of [place] coronary artery without angina pectoris Atrial fibrillation with RVR Essential hypertension Streptococcal bacteremia 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 Chief Complaint BACK PAIN A-FIB RVR, HYPOTENSION, ACUTE ON CHRONIC ANEMIA A-FIB RVR, HYPOTENSION, ACUTE ON CHRONIC ANEMIA A-FIB RVR, HYPOTENSION, ACUTE ON CHRONIC ANEMIA A-FIB RVR, HYPOTENSION, ACUTE ON CHRONIC ANEMIA A-FIB RVR, HYPOTENSION, ACUTE ON CHRONIC ANEMIA A-FIB RVR, HYPOTENSION, ACUTE ON CHRONIC ANEMIA A-FIB RVR, HYPOTENSION, ACUTE ON CHRONIC ANEMIA A-FIB RVR, HYPOTENSION, ACUTE ON CHRONIC ANEMIA palpitations E ORDER BACTEREMIA, LUMBAR DISCITIS BACTEREMIA, LUMBAR DISCITIS BACTEREMIA, LUMBAR DISCITIS BACTEREMIA, LUMBAR DISCITIS BACTEREMIA, LUMBAR DISCITIS IV antibiotics IV antibiotics IV antibiotics IV antibiotics IV antibiotics IV antibiotics IV antibiotics IV antibiotics IV antibiotics IV antibiotics IV antibiotics IV antibiotics IV antibiotics IV antibiotics IV antibiotics E-ORDER IV antibiotics IV antibiotics IV antibiotics IV antibiotics port draw & drsg change IV antibiotics IV antibiotics IV antibiotics IV antibiotics IV antibiotics IV antibiotics PICC draw IV antibiotics IV antibiotics IV antibiotics Reason for Visit Anticoagulant long-t erm use Atherosclerotic heart disease of [place] coronary artery without angina pectoris Atrial fibrillation with RVR Essential hypertension Streptococcal bacteremia 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 Chief Complaint BACK PAIN A-FIB RVR, HYPOTENSION, ACUTE ON CHRONIC ANEMIA A-FIB RVR, HYPOTENSION, ACUTE ON CHRONIC ANEMIA A-FIB RVR, HYPOTENSION, ACUTE ON CHRONIC ANEMIA A-FIB RVR, HYPOTENSION, ACUTE ON CHRONIC ANEMIA A-FIB RVR, HYPOTENSION, ACUTE ON CHRONIC ANEMIA A-FIB RVR, HYPOTENSION, ACUTE ON CHRONIC ANEMIA A-FIB RVR, HYPOTENSION, ACUTE ON CHRONIC ANEMIA A-FIB RVR, HYPOTENSION, ACUTE ON CHRONIC ANEMIA palpitations E ORDER BACTEREMIA, LUMBAR DISCITIS BACTEREMIA, LUMBAR DISCITIS BACTEREMIA, LUMBAR DISCITIS BACTEREMIA, LUMBAR DISCITIS BACTEREMIA, LUMBAR DISCITIS IV antibiotics IV antibiotics IV antibiotics IV antibiotics IV antibiotics IV antibiotics IV antibiotics IV antibiotics IV antibiotics IV antibiotics IV antibiotics IV antibiotics IV antibiotics IV antibiotics IV antibiotics E-ORDER IV antibiotics IV antibiotics IV antibiotics IV antibiotics port draw & drsg change IV antibiotics IV antibiotics IV antibiotics IV antibiotics IV antibiotics IV antibiotics PICC draw IV antibiotics IV antibiotics IV antibiotics IV antibiotics Reason for Visit Anticoagulant long-t erm use Atherosclerotic heart disease of [place] coronary artery without angina pectoris Atrial fibrillation with RVR Essential hypertension Streptococcal bacteremia 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 Chief Complaint BACK PAIN A-FIB RVR, HYPOTENSION, ACUTE ON CHRONIC ANEMIA A-FIB RVR, HYPOTENSION, ACUTE ON CHRONIC ANEMIA A-FIB RVR, HYPOTENSION, ACUTE ON CHRONIC ANEMIA A-FIB RVR, HYPOTENSION, ACUTE ON CHRONIC ANEMIA A-FIB RVR, HYPOTENSION, ACUTE ON CHRONIC ANEMIA A-FIB RVR, HYPOTENSION, ACUTE ON CHRONIC ANEMIA A-FIB RVR, HYPOTENSION, ACUTE ON CHRONIC ANEMIA A-FIB RVR, HYPOTENSION, ACUTE ON CHRONIC ANEMIA palpitations E ORDER BACTEREMIA, LUMBAR DISCITIS BACTEREMIA, LUMBAR DISCITIS BACTEREMIA, LUMBAR DISCITIS BACTEREMIA, LUMBAR DISCITIS BACTEREMIA, LUMBAR DISCITIS IV antibiotics IV antibiotics IV antibiotics IV antibiotics IV antibiotics IV antibiotics IV antibiotics IV antibiotics IV antibiotics IV antibiotics IV antibiotics IV antibiotics IV antibiotics IV antibiotics IV antibiotics E-ORDER IV antibiotics IV antibiotics IV antibiotics IV antibiotics port draw & drsg change IV antibiotics IV antibiotics IV antibiotics IV antibiotics IV antibiotics IV antibiotics PICC draw IV antibiotics IV antibiotics IV antibiotics IV antibiotics IV antibiotics Reason for Visit Anticoagulant long-t erm use Atherosclerotic heart disease of [place] coronary artery without angina pectoris Atrial fibrillation with RVR Essential hypertension Streptococcal bacteremia 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 Chief Complaint BACK PAIN A-FIB RVR, HYPOTENSION, ACUTE ON CHRONIC ANEMIA A-FIB RVR, HYPOTENSION, ACUTE ON CHRONIC ANEMIA A-FIB RVR, HYPOTENSION, ACUTE ON CHRONIC ANEMIA A-FIB RVR, HYPOTENSION, ACUTE ON CHRONIC ANEMIA A-FIB RVR, HYPOTENSION, ACUTE ON CHRONIC ANEMIA A-FIB RVR, HYPOTENSION, ACUTE ON CHRONIC ANEMIA A-FIB RVR, HYPOTENSION, ACUTE ON CHRONIC ANEMIA A-FIB RVR, HYPOTENSION, ACUTE ON CHRONIC ANEMIA palpitations E ORDER BACTEREMIA, LUMBAR DISCITIS BACTEREMIA, LUMBAR DISCITIS BACTEREMIA, LUMBAR DISCITIS BACTEREMIA, LUMBAR DISCITIS BACTEREMIA, LUMBAR DISCITIS IV antibiotics IV antibiotics IV antibiotics IV antibiotics IV antibiotics IV antibiotics IV antibiotics IV antibiotics IV antibiotics IV antibiotics IV antibiotics IV antibiotics IV antibiotics IV antibiotics IV antibiotics E-ORDER IV antibiotics IV antibiotics IV antibiotics IV antibiotics port draw & drsg change IV antibiotics IV antibiotics IV antibiotics IV antibiotics IV antibiotics IV antibiotics PICC draw IV antibiotics IV antibiotics IV antibiotics IV antibiotics IV antibiotics IV antibiotics Reason for Visit Anticoagulant long-t erm use Atherosclerotic heart disease of [place] coronary artery without angina pectoris Atrial fibrillation with RVR Essential hypertension Streptococcal bacteremia 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 Chief Complaint BACK PAIN A-FIB RVR, HYPOTENSION, ACUTE ON CHRONIC ANEMIA A-FIB RVR, HYPOTENSION, ACUTE ON CHRONIC ANEMIA A-FIB RVR, HYPOTENSION, ACUTE ON CHRONIC ANEMIA A-FIB RVR, HYPOTENSION, ACUTE ON CHRONIC ANEMIA A-FIB RVR, HYPOTENSION, ACUTE ON CHRONIC ANEMIA A-FIB RVR, HYPOTENSION, ACUTE ON CHRONIC ANEMIA A-FIB RVR, HYPOTENSION, ACUTE ON CHRONIC ANEMIA A-FIB RVR, HYPOTENSION, ACUTE ON CHRONIC ANEMIA palpitations E ORDER BACTEREMIA, LUMBAR DISCITIS BACTEREMIA, LUMBAR DISCITIS BACTEREMIA, LUMBAR DISCITIS BACTEREMIA, LUMBAR DISCITIS BACTEREMIA, LUMBAR DISCITIS IV antibiotics IV antibiotics IV antibiotics IV antibiotics IV antibiotics IV antibiotics IV antibiotics IV antibiotics IV antibiotics IV antibiotics IV antibiotics IV antibiotics IV antibiotics IV antibiotics IV antibiotics E-ORDER IV antibiotics IV antibiotics IV antibiotics IV antibiotics port draw & drsg change IV antibiotics IV antibiotics IV antibiotics IV antibiotics IV antibiotics IV antibiotics PICC draw IV antibiotics IV antibiotics IV antibiotics IV antibiotics IV antibiotics IV antibiotics PICC draw Reason for Visit Anticoagulant long-t erm use Atherosclerotic heart disease of [place] coronary artery without angina pectoris Atrial fibrillation with RVR Essential hypertension Streptococcal bacteremia 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 Chief Complaint BACK PAIN A-FIB RVR, HYPOTENSION, ACUTE ON CHRONIC ANEMIA A-FIB RVR, HYPOTENSION, ACUTE ON CHRONIC ANEMIA A-FIB RVR, HYPOTENSION, ACUTE ON CHRONIC ANEMIA A-FIB RVR, HYPOTENSION, ACUTE ON CHRONIC ANEMIA A-FIB RVR, HYPOTENSION, ACUTE ON CHRONIC ANEMIA A-FIB RVR, HYPOTENSION, ACUTE ON CHRONIC ANEMIA A-FIB RVR, HYPOTENSION, ACUTE ON CHRONIC ANEMIA A-FIB RVR, HYPOTENSION, ACUTE ON CHRONIC ANEMIA palpitations E ORDER BACTEREMIA, LUMBAR DISCITIS BACTEREMIA, LUMBAR DISCITIS BACTEREMIA, LUMBAR DISCITIS BACTEREMIA, LUMBAR DISCITIS BACTEREMIA, LUMBAR DISCITIS IV antibiotics IV antibiotics IV antibiotics IV antibiotics IV antibiotics IV antibiotics IV antibiotics IV antibiotics IV antibiotics IV antibiotics IV antibiotics IV antibiotics IV antibiotics IV antibiotics IV antibiotics E-ORDER IV antibiotics IV antibiotics IV antibiotics IV antibiotics port draw & drsg change IV antibiotics IV antibiotics IV antibiotics IV antibiotics IV antibiotics IV antibiotics PICC draw IV antibiotics IV antibiotics IV antibiotics IV antibiotics IV antibiotics IV antibiotics PICC draw IV antibiotics IV antibiotics Reason for Visit Anticoagulant long-t erm use Atherosclerotic heart disease of [place] coronary artery without angina pectoris Atrial fibrillation with RVR Essential hypertension Streptococcal bacteremia 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 Chief Complaint BACK PAIN A-FIB RVR, HYPOTENSION, ACUTE ON CHRONIC ANEMIA A-FIB RVR, HYPOTENSION, ACUTE ON CHRONIC ANEMIA A-FIB RVR, HYPOTENSION, ACUTE ON CHRONIC ANEMIA A-FIB RVR, HYPOTENSION, ACUTE ON CHRONIC ANEMIA A-FIB RVR, HYPOTENSION, ACUTE ON CHRONIC ANEMIA A-FIB RVR, HYPOTENSION, ACUTE ON CHRONIC ANEMIA A-FIB RVR, HYPOTENSION, ACUTE ON CHRONIC ANEMIA A-FIB RVR, HYPOTENSION, ACUTE ON CHRONIC ANEMIA palpitations E ORDER BACTEREMIA, LUMBAR DISCITIS BACTEREMIA, LUMBAR DISCITIS BACTEREMIA, LUMBAR DISCITIS BACTEREMIA, LUMBAR DISCITIS BACTEREMIA, LUMBAR DISCITIS IV antibiotics IV antibiotics IV antibiotics IV antibiotics IV antibiotics IV antibiotics IV antibiotics IV antibiotics IV antibiotics IV antibiotics IV antibiotics IV antibiotics IV antibiotics IV antibiotics IV antibiotics E-ORDER IV antibiotics IV antibiotics IV antibiotics IV antibiotics port draw & drsg change IV antibiotics IV antibiotics IV antibiotics IV antibiotics IV antibiotics IV antibiotics PICC draw IV antibiotics IV antibiotics IV antibiotics IV antibiotics IV antibiotics IV antibiotics PICC draw IV antibiotics IV antibiotics IV antibiotics Reason for Visit Anticoagulant long-t erm use Atherosclerotic heart disease of [place] coronary artery without angina pectoris Atrial fibrillation with RVR Essential hypertension Streptococcal bacteremia 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 Chief Complaint BACK PAIN A-FIB RVR, HYPOTENSION, ACUTE ON CHRONIC ANEMIA A-FIB RVR, HYPOTENSION, ACUTE ON CHRONIC ANEMIA A-FIB RVR, HYPOTENSION, ACUTE ON CHRONIC ANEMIA A-FIB RVR, HYPOTENSION, ACUTE ON CHRONIC ANEMIA A-FIB RVR, HYPOTENSION, ACUTE ON CHRONIC ANEMIA A-FIB RVR, HYPOTENSION, ACUTE ON CHRONIC ANEMIA A-FIB RVR, HYPOTENSION, ACUTE ON CHRONIC ANEMIA A-FIB RVR, HYPOTENSION, ACUTE ON CHRONIC ANEMIA palpitations E ORDER BACTEREMIA, LUMBAR DISCITIS BACTEREMIA, LUMBAR DISCITIS BACTEREMIA, LUMBAR DISCITIS BACTEREMIA, LUMBAR DISCITIS BACTEREMIA, LUMBAR DISCITIS IV antibiotics IV antibiotics IV antibiotics IV antibiotics IV antibiotics IV antibiotics IV antibiotics IV antibiotics IV antibiotics IV antibiotics IV antibiotics IV antibiotics IV antibiotics IV antibiotics IV antibiotics E-ORDER IV antibiotics IV antibiotics IV antibiotics IV antibiotics port draw & drsg change IV antibiotics IV antibiotics IV antibiotics IV antibiotics IV antibiotics IV antibiotics PICC draw IV antibiotics IV antibiotics IV antibiotics IV antibiotics IV antibiotics IV antibiotics PICC draw IV antibiotics IV antibiotics IV antibiotics IV antibiotics Reason for Visit Anticoagulant long-t erm use Atherosclerotic heart disease of [place] coronary artery without angina pectoris Atrial fibrillation with RVR Essential hypertension Streptococcal bacteremia 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 Chief Complaint BACK PAIN A-FIB RVR, HYPOTENSION, ACUTE ON CHRONIC ANEMIA A-FIB RVR, HYPOTENSION, ACUTE ON CHRONIC ANEMIA A-FIB RVR, HYPOTENSION, ACUTE ON CHRONIC ANEMIA A-FIB RVR, HYPOTENSION, ACUTE ON CHRONIC ANEMIA A-FIB RVR, HYPOTENSION, ACUTE ON CHRONIC ANEMIA A-FIB RVR, HYPOTENSION, ACUTE ON CHRONIC ANEMIA A-FIB RVR, HYPOTENSION, ACUTE ON CHRONIC ANEMIA A-FIB RVR, HYPOTENSION, ACUTE ON CHRONIC ANEMIA palpitations E ORDER BACTEREMIA, LUMBAR DISCITIS BACTEREMIA, LUMBAR DISCITIS BACTEREMIA, LUMBAR DISCITIS BACTEREMIA, LUMBAR DISCITIS BACTEREMIA, LUMBAR DISCITIS IV antibiotics IV antibiotics IV antibiotics IV antibiotics IV antibiotics IV antibiotics IV antibiotics IV antibiotics IV antibiotics IV antibiotics IV antibiotics IV antibiotics IV antibiotics IV antibiotics IV antibiotics E-ORDER IV antibiotics IV antibiotics IV antibiotics IV antibiotics port draw & drsg change IV antibiotics IV antibiotics IV antibiotics IV antibiotics IV antibiotics IV antibiotics PICC draw IV antibiotics IV antibiotics IV antibiotics IV antibiotics IV antibiotics IV antibiotics PICC draw IV antibiotics IV antibiotics IV antibiotics IV antibiotics IV antibiotics Reason for Visit Anticoagulant long-t erm use Atherosclerotic heart disease of [place] coronary artery without angina pectoris Atrial fibrillation with RVR Essential hypertension Streptococcal bacteremia 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 Chief Complaint Admit Date LEFT HIP PAIN June 24, 2024 9:0 9am EORDER LABS & CHEST XRAY July 02 2:08pm 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 M 2024 8:04am 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 [facility] 2024 8:14am FU July 09, 2024 1:43pm 2-3 M FU September 06, 2024 3:19 pm Reason for Visit Admit Date Anemia July 09, 2024 1:43pm Atrial fibrillation with RVR September 06, 2024 3:19pm On amiodarone therapy September 06, 2024 3: 19pm Essential hypertension September 06, 2024 3 :19pm History of aortic valve replacement with bioprosthetic valve September 06, 2024 3:19pm 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 September 06, 2024 3:19pm History of tricuspid valve repair August 102024 3:19pm Hx of ascending aorta replacement August 102024 3:19pm Pure hypercholesterolemia September 06 3:19pm Chief Complaint Admit Date LEFT HIP PAIN June 24, 2024 9:0 9am EORDER LABS & CHEST XRAY July 02 2:08pm Other snf (current) drug therapy [facility] 2024 8:04am 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 [facility] 2024 8:14am FU July 09, 2024 1:43pm 2-3 M FU September 06, 2024 3:19 pm presence of xenogenic heart valve September 072024 1:44pm Chief Complaint Admit Date 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 [facility] 2024 8:04am 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 [facility] 2024 8:14am FU July 09, 2024 1:43pm 2-3 M FU September 06, 2024 3:19 pm presence of xenogenic heart valve September 072024 1:44pm 2-3 M FU November 04, 2024 3: 19pm Reason for Visit Admit Date Anemia July 09, 2024 1:43pm Atrial fibrillation with RVR September 06, 2024 3:19pm On amiodarone therapy September 06, 2024 3: 19pm Essential hypertension September 06, 2024 3 :19pm History of aortic valve replacement with bioprosthetic valve September 06, 2024 3:19pm 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 September 06, 2024 3:19pm History of tricuspid valve repair August 102024 3:19pm Hx of ascending aorta replacement August 102024 3:19pm Pure hypercholesterolemia September 06 3:19pm Atrial fibrillation with RVR October 3:19pm On amiodarone therapy November 04, 2024 3:19pm Essential hypertension November 04, 2024 3:19pm History of aortic valve replacement with bioprosthetic valve November 04, 2024 3:19pm 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 November 04, 2024 3:19pm History of tricuspid valve repair November 04, 2024 3:19pm Hx of ascending aorta replacement November 04, 2024 3:19pm Pure hypercholesterolemia November 04, 2 025 3:19pm Reason for Referral Specialty Diagnoses / Procedures Referred By Contac t Referred To Contact CT IMAGING Diagnoses 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 (HCC) Thoracic aortic aneurysm without rupture (HCC) Examination of participant in clinical trial Procedures CTA ABD/PEL WO/W IVCON CT ANGIO ABD&PLVIS CNTRST MTRL W/WO CNTRST Reynaldo Gabriel MD [address] [place] [address] Ct Imaging Referral ID Status Reason Start Date Expiration Date Visits Requested Visits Authorized [id number] Pending Review Auto-Generat ed Referral 11/01/2021 10/19/2022 1 1 Specialty Diagnoses / Procedures Referred By Contac t Referred To Contact CT IMAGING Diagnoses Thoracic aortic aneurysm without rupture (HCC) Examination of participant in clinical trial Procedures CTA CHEST (NONGATED) WO/W IVCON CT ANGIOGRAPHY CHEST W/CONTRAST/NONCONTRAST Reynaldo Vaughan MD [address] [place] [address] Ct Imaging Referral ID Status Reason Start Date Expiration Date Visits Requested Visits Authorized [id number] Pending Review Auto-Generat ed Referral 11/01/2021 10/19/2022 1 1 Specialty Diagnoses / Procedures Referred By Contac t Referred To Contact CT IMAGING Diagnoses S/P ascending aortic aneurysm repair Ascending aortic aneurysm (HCC) 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 S/P AVR (aortic valve replacement) 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 artery (HCC) Disorder of artery or arteriole (HCC) Procedures CTA ABD/PEL WO/W IVCON CT ANGIO ABD&PLVIS CNTRST MTRL W/WO CNTRST Armida Kee, SOCIAL WORK LECTURER.MAINTENANCE OPERATOR [address] [place] [address] Ct Imaging Referral ID Status Reason Start Date Expiration Date Visits Requested Visits Authorized [id number] Pending Review Auto-Generat ed Referral 11/01/2021 12/01/2022 1 1 Specialty Diagnoses / Procedures Referred By Contac t Referred To Contact CT IMAGING Diagnoses S/P ascending aortic aneurysm repair Ascending aortic aneurysm (HCC) 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 S/P AVR (aortic valve replacement) 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 artery (HCC) Disorder of artery or arteriole (HCC) Procedures CTA CHEST (NONGATED) WO/W IVCON CT ANGIOGRAPHY CHEST W/CONTRAST/NONCONTRAST Armida Long, SOCIAL WORK LECTURER.MAINTENANCE OPERATOR [address] [id number] Imaging Referral ID Status Reason Start Date Expiration Date Visits Requested Visits Authorized [id number] Pending Review Auto-Generat ed Referral 11/01/2021 12/01/2022 1 1 Referral ID Status Reason Start Date Expiration Date V isits Requested Visits Authorized [id number] Closed Auto-Generate d Referral 11/01/2021 10/19/2022 1 1 Referral ID Status Reason Start Date Expiration Date V isits Requested Visits Authorized [id number] Closed Auto-Generate d Referral 11/01/2021 10/19/2022 1 1 Specialty Diagnoses / Procedures Referred By Contac t Referred To Contact CT IMAGING Diagnoses 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, unspecified part (HCC) Thoracic aortic aneurysm without rupture, unspecified part (HCC) Examination of participant in clinical trial Procedures CTA ABD/PEL WO/W IVCON CT ANGIO ABD&PLVIS CNTRST MTRL W/WO CNTRST Nasim Orozco MD [address] [place] [address] Ct Imaging [place] [address] Referral ID Status Reason Start Date Expiration Date V isits Requested Visits Authorized [id number] Closed Auto-Generate d Referral 11/07/2022 08/14/2023 1 1 Specialty Diagnoses / Procedures Referred By Contac t Referred To Contact CT IMAGING Diagnoses Thoracic aortic aneurysm without rupture, unspecified part (HCC) Examination of participant in clinical trial Procedures CTA CHEST (NONGATED) WO/W IVCON CT ANGIOGRAPHY CHEST W/CONTRAST/NONCONTRAST Nasim Fleming MD [address] [place] [address] Ct Imaging [place] [address] Referral ID Status Reason Start Date Expiration Date V isits Requested Visits Authorized [id number] Closed Auto-Generate d Referral 11/07/2022 08/14/2023 1 1 Specialty Diagnoses / Procedures Referred By Contac t Referred To Contact MR IMAGING Diagnoses Levoscoliosis of lumbar spine Lumbar spondylosis DDD (degenerative disc disease), lumbar Radiculopathy of lumbar region Procedures MRI LUMBAR SPINE WO IVCON MRI SPINAL CANAL LUMBAR W/O CONTRAST MATERIAL Silva Palacios PA-C [address] [place] [address] Mr Imaging [place] [address] Referral ID Status Reason Start Date Expiration Date V isits Requested Visits Authorized [id number] Closed Auto-Generate d Referral 11/13/2022 12/13/2023 1 1 Specialty Diagnoses / Procedures Referred By Contac t Referred To Contact Hematology Diagnoses Anemia, unspecified type Atrial fibrillation, unspecified type (HCC) On anticoagulant therapy Procedures CONSULT TO HEMATOLOGY OFFICE/OUTPATIENT [facility] 60-74 MINUTES Silva Palacios PA-C [address] [place] [address] Referral ID Status Reason Start Date Expiration Date Visits Requested Visits Authorized [id number] Authorized PCP Requested Referral 3 01/23/2024 1 1 Specialty Diagnoses / Procedures Referred By Contac t Referred To Contact CT IMAGING Diagnoses Nonrheumatic mitral valve regurgitation S/P ascending aortic aneurysm repair Aneurysm of ascending aorta without rupture (HCC) S/P AVR (aortic valve replacement) 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) Encounter for other preprocedural examination Procedures CTA ABD/PEL WO/W IVCON CT ANGIO ABD&PLVIS CNTRST MTRL W/WO CNTRST Armida Kee, CONRAD.MAINTENANCE OPERATOR [address] [id number] Imaging [id number] Referral ID Status Reason Start Date Expiration Date V isits Requested Visits Authorized [id number] Closed Auto-Generate d Referral 11/07/2022 12/07/2023 1 1 Specialty Diagnoses / Procedures Referred By Jackieac t Referred To Contact CT IMAGING Diagnoses Nonrheumatic mitral valve regurgitation S/P ascending aortic aneurysm repair Aneurysm of ascending aorta without rupture (HCC) S/P AVR (aortic valve replacement) 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) Encounter for other preprocedural examination Procedures CTA CHEST (NONGATED) WO/W IVCON CT ANGIOGRAPHY CHEST W/CONTRAST/NONCONTRAST Armida Long APRN.MAINTENANCE OPERATOR [address] [place] [address] Ct Imaging [place] [address] Referral ID Status Reason Start Date Expiration Date V isits Requested Visits Authorized [id number] Closed Auto-Generate d Referral 11/07/2022 12/07/2023 1 1 Specialty Diagnoses / Procedures Referred By Contac t Referred To Contact Gastroenterology Diagnoses On anticoagulant therapy Mild anemia Procedures CONSULT TO GASTROENTEROLOGY OFFICE/OUTPATIENT [facility] 60 MINUTES Rebecca Dinh MD [address] [place] [address] Referral ID Status Reason Start Date Expiration Date Visits Requested Visits Authorized [id number] Authorized PCP Requested Referral 01/13/2024 01/12/2025 1 1 Medications Administered Section Inactive Administered Medications - up to 3 most recent administrations Medication Order MAR Action Action Date Dose Rate Site iron sucrose iv piggyback 200 mg in NaCl 0.9% 100 mL (VENOFER) 200 mg, INTRAVENOUS, at 400 mL/hr, Administer over 15 Minutes, ONCE, 1 dose, On Fri02/07/23 at 1200, Please conduct a 30 minute post dose observation. Refrigerate New Bag/Syringe/Bottle 02/07/2023 11:43 AM EST 200 mg 400 mL/hr Inactive Administered Medications - up to 3 most recent administrations Medication Order MAR Action Action Date Dose Rate Site iron sucrose iv piggyback 200 mg in NaCl 0.9% 100 mL (VENOFER) 200 mg, INTRAVENOUS, at 400 mL/hr, Administer over 15 Minutes, ONCE, 1 dose, On Fri02/11/23 at 1130, Please conduct a 30 minute post dose observation. Refrigerate New Bag/Syringe/Bottle 02/11/2023 11:43 AM EST 200 mg 400 mL/hr Inactive Administered Medications - up to 3 most recent administrations Medication Order MAR Action Action Date Dose Rate Site iron sucrose iv piggyback 200 mg in NaCl 0.9% 100 mL (VENOFER) 200 mg, INTRAVENOUS, at 400 mL/hr, Administer over 15 Minutes, ONCE, 1 dose, On Annette 02/13/23 at 1500, Please conduct a 30 minute post dose observation. Refrigerate New Bag/Syringe/Bottle 02/13/2023 3:05 PM EST 200 mg 400 mL/hr Inactive Administered Medications - up to 3 most recent administrations Medication Order MAR Action Action Date Dose Rate Site iron sucrose iv piggyback 200 mg in NaCl 0.9% 100 mL (VENOFER) 200 mg, INTRAVENOUS, at 400 mL/hr, Administer over 15 Minutes, ONCE, 1 dose, On Fri02/17/23 at 1500, Please conduct a 30 minute post dose observation. Refrigerate New Bag/Syringe/Bottle 02/17/2023 2:59 PM EST 200 mg 400 mL/hr Inactive Administered Medications - up to 3 most recent administrations Medication Order MAR Action Action Date Dose Rate Site iron sucrose iv piggyback 200 mg in NaCl 0.9% 100 mL (VENOFER) 200 mg, INTRAVENOUS, at 400 mL/hr, Administer over 15 Minutes, ONCE, 1 dose, On Fri02/19/23 at 1200, Please conduct a 30 minute post dose observation. Refrigerate New Bag/Syringe/Bottle 02/19/2023 11:55 AM EST 200 mg 400 mL/hr Additional Source Comments (unrecognized sect ion and content) No Status Records FoundNo Status Records FoundNo Status Records FoundNo Status Records Found INFORMATION SOURCE (unrecogn ized section and content) DATE CREATED AUTHOR 11/09/2019 Av Magallon [facility] DATE CREATED AUTHOR AUTHOR'S ORGANIZ ATION 11/20/2022 [facility] DATE CREATED AUTHOR AUTHOR'S ORGANIZ ATION 12/25/2024 [facility] DATE CREATED AUTHOR AUTHOR'S ORGANIZ ATION 01/11/2025 [facility] Source Comments (unrecognize d section and content) In the event this informatio n is protected by the Federal Confidentiality of Alcohol and Drug Abuse Patient Records regulations: The Federal rules restrict any use of the information to criminally investigate or prosecute any alcohol or drug abuse patient.[facility] the event this information is protected by the Federal Confidentiality of Alcohol and Drug Abuse Patient Records regulations: The Federal rules restrict any use of the information to criminally investigate or prosecute any alcohol or drug abuse patient.[facility] HospitalIn the event this information is protected by the Federal Confidentiality of Alcohol and Drug Abuse Patient Records regulations: The Federal rules restrict any use of the information to criminally investigate or prosecute any alcohol or drug abuse patient.[facility] HospitalIn the event this information is protected by the Federal Confidentiality of Alcohol and Drug Abuse Patient Records regulations: The Federal rules restrict any use of the information to criminally investigate or prosecute any alcohol or drug abuse patient.[facility] HospitalIn the event this information is protected by the Federal Confidentiality of Alcohol and Drug Abuse Patient Records regulations: The Federal rules restrict any use of the information to criminally investigate or prosecute any alcohol or drug abuse patient.[facility] HospitalIn the event this information is protected by the Federal Confidentiality of Alcohol and Drug Abuse Patient Records regulations: The Federal rules restrict any use of the information to criminally investigate or prosecute any alcohol or drug abuse patient.[facility] HospitalIn the event this information is protected by the Federal Confidentiality of Alcohol and Drug Abuse Patient Records regulations: The Federal rules restrict any use of the information to criminally investigate or prosecute any alcohol or drug abuse patient.[facility] HospitalIn the event this information is protected by the Federal Confidentiality of Alcohol and Drug Abuse Patient Records regulations: The Federal rules restrict any use of the information to criminally investigate or prosecute any alcohol or drug abuse patient.[facility] HospitalIn the event this information is protected by the Federal Confidentiality of Alcohol and Drug Abuse Patient Records regulations: The Federal rules restrict any use of the information to criminally investigate or prosecute any alcohol or drug abuse patient.[facility] HospitalIn the event this information is protected by the Federal Confidentiality of Alcohol and Drug Abuse Patient Records regulations: The Federal rules restrict any use of the information to criminally investigate or prosecute any alcohol or drug abuse patient.[facility] HospitalIn the event this information is protected by the Federal Confidentiality of Alcohol and Drug Abuse Patient Records regulations: The Federal rules restrict any use of the information to criminally investigate or prosecute any alcohol or drug abuse patient.[facility] HospitalIn the event this information is protected by the Federal Confidentiality of Alcohol and Drug Abuse Patient Records regulations: The Federal rules restrict any use of the information to criminally investigate or prosecute any alcohol or drug abuse patient.[facility] HospitalIn the event this information is protected by the Federal Confidentiality of Alcohol and Drug Abuse Patient Records regulations: The Federal rules restrict any use of the information to criminally investigate or prosecute any alcohol or drug abuse patient.[facility] HospitalIn the event this information is protected by the Federal Confidentiality of Alcohol and Drug Abuse Patient Records regulations: The Federal rules restrict any use of the information to criminally investigate or prosecute any alcohol or drug abuse patient.[facility] HospitalIn the event this information is protected by the Federal Confidentiality of Alcohol and Drug Abuse Patient Records regulations: The Federal rules restrict any use of the information to criminally investigate or prosecute any alcohol or drug abuse patient.[facility] HospitalIn the event this information is protected by the Federal Confidentiality of Alcohol and Drug Abuse Patient Records regulations: The Federal rules restrict any use of the information to criminally investigate or prosecute any alcohol or drug abuse patient.[facility] HospitalIn the event this information is protected by the Federal Confidentiality of Alcohol and Drug Abuse Patient Records regulations: The Federal rules restrict any use of the information to criminally investigate or prosecute any alcohol or drug abuse patient.[facility] HospitalIn the event this information is protected by the Federal Confidentiality of Alcohol and Drug Abuse Patient Records regulations: The Federal rules restrict any use of the information to criminally investigate or prosecute any alcohol or drug abuse patient.[facility] HospitalIn the event this information is protected by the Federal Confidentiality of Alcohol and Drug Abuse Patient Records regulations: The Federal rules restrict any use of the information to criminally investigate or prosecute any alcohol or drug abuse patient.[facility] HospitalIn the event this information is protected by the Federal Confidentiality of Alcohol and Drug Abuse Patient Records regulations: The Federal rules restrict any use of the information to criminally investigate or prosecute any alcohol or drug abuse patient.[facility] HospitalIn the event this information is protected by the Federal Confidentiality of Alcohol and Drug Abuse Patient Records regulations: The Federal rules restrict any use of the information to criminally investigate or prosecute any alcohol or drug abuse patient.[facility] HospitalIn the event this information is protected by the Federal Confidentiality of Alcohol and Drug Abuse Patient Records regulations: The Federal rules restrict any use of the information to criminally investigate or prosecute any alcohol or drug abuse patient.[facility] HospitalIn the event this information is protected by the Federal Confidentiality of Alcohol and Drug Abuse Patient Records regulations: The Federal rules restrict any use of the information to criminally investigate or prosecute any alcohol or drug abuse patient.[facility] HospitalIn the event this information is protected by the Federal Confidentiality of Alcohol and Drug Abuse Patient Records regulations: The Federal rules restrict any use of the information to criminally investigate or prosecute any alcohol or drug abuse patient.[facility] HospitalIn the event this information is protected by the Federal Confidentiality of Alcohol and Drug Abuse Patient Records regulations: The Federal rules restrict any use of the information to criminally investigate or prosecute any alcohol or drug abuse patient.[facility] HospitalIn the event this information is protected by the Federal Confidentiality of Alcohol and Drug Abuse Patient Records regulations: The Federal rules restrict any use of the information to criminally investigate or prosecute any alcohol or drug abuse patient.[facility] HospitalIn the event this information is protected by the Federal Confidentiality of Alcohol and Drug Abuse Patient Records regulations: The Federal rules restrict any use of the information to criminally investigate or prosecute any alcohol or drug abuse patient.[facility] HospitalIn the event this information is protected by the Federal Confidentiality of Alcohol and Drug Abuse Patient Records regulations: The Federal rules restrict any use of the information to criminally investigate or prosecute any alcohol or drug abuse patient.[facility] HospitalIn the event this information is protected by the Federal Confidentiality of Alcohol and Drug Abuse Patient Records regulations: The Federal rules restrict any use of the information to criminally investigate or prosecute any alcohol or drug abuse patient.[facility] HospitalIn the event this information is protected by the Federal Confidentiality of Alcohol and Drug Abuse Patient Records regulations: The Federal rules restrict any use of the information to criminally investigate or prosecute any alcohol or drug abuse patient.[facility] HospitalIn the event this information is protected by the Federal Confidentiality of Alcohol and Drug Abuse Patient Records regulations: The Federal rules restrict any use of the information to criminally investigate or prosecute any alcohol or drug abuse patient.[facility] HospitalIn the event this information is protected by the Federal Confidentiality of Alcohol and Drug Abuse Patient Records regulations: The Federal rules restrict any use of the information to criminally investigate or prosecute any alcohol or drug abuse patient.[facility] HospitalIn the event this information is protected by the Federal Confidentiality of Alcohol and Drug Abuse Patient Records regulations: The Federal rules restrict any use of the information to criminally investigate or prosecute any alcohol or drug abuse patient.[facility] HospitalIn the event this information is protected by the Federal Confidentiality of Alcohol and Drug Abuse Patient Records regulations: The Federal rules restrict any use of the information to criminally investigate or prosecute any alcohol or drug abuse patient.[facility] HospitalIn the event this information is protected by the Federal Confidentiality of Alcohol and Drug Abuse Patient Records regulations: The Federal rules restrict any use of the information to criminally investigate or prosecute any alcohol or drug abuse patient.[facility] HospitalIn the event this information is protected by the Federal Confidentiality of Alcohol and Drug Abuse Patient Records regulations: The Federal rules restrict any use of the information to criminally investigate or prosecute any alcohol or drug abuse patient.[facility] HospitalIn the event this information is protected by the Federal Confidentiality of Alcohol and Drug Abuse Patient Records regulations: The Federal rules restrict any use of the information to criminally investigate or prosecute any alcohol or drug abuse patient.[facility] HospitalIn the event this information is protected by the Federal Confidentiality of Alcohol and Drug Abuse Patient Records regulations: The Federal rules restrict any use of the information to criminally investigate or prosecute any alcohol or drug abuse patient.[facility] HospitalIn the event this information is protected by the Federal Confidentiality of Alcohol and Drug Abuse Patient Records regulations: The Federal rules restrict any use of the information to criminally investigate or prosecute any alcohol or drug abuse patient.[facility] HospitalIn the event this information is protected by the Federal Confidentiality of Alcohol and Drug Abuse Patient Records regulations: The Federal rules restrict any use of the information to criminally investigate or prosecute any alcohol or drug abuse patient.[facility] HospitalIn the event this information is protected by the Federal Confidentiality of Alcohol and Drug Abuse Patient Records regulations: The Federal rules restrict any use of the information to criminally investigate or prosecute any alcohol or drug abuse patient.[facility] HospitalIn the event this information is protected by the Federal Confidentiality of Alcohol and Drug Abuse Patient Records regulations: The Federal rules restrict any use of the information to criminally investigate or prosecute any alcohol or drug abuse patient.[facility] HospitalIn the event this information is protected by the Federal Confidentiality of Alcohol and Drug Abuse Patient Records regulations: The Federal rules restrict any use of the information to criminally investigate or prosecute any alcohol or drug abuse patient.[facility] HospitalIn the event this information is protected by the Federal Confidentiality of Alcohol and Drug Abuse Patient Records regulations: The Federal rules restrict any use of the information to criminally investigate or prosecute any alcohol or drug abuse patient.[facility] HospitalIn the event this information is protected by the Federal Confidentiality of Alcohol and Drug Abuse Patient Records regulations: The Federal rules restrict any use of the information to criminally investigate or prosecute any alcohol or drug abuse patient.[facility] HospitalIn the event this information is protected by the Federal Confidentiality of Alcohol and Drug Abuse Patient Records regulations: The Federal rules restrict any use of the information to criminally investigate or prosecute any alcohol or drug abuse patient.[facility] ClinicIn the event this information is protected by the Federal Confidentiality of Alcohol and Drug Abuse Patient Records regulations: The Federal rules restrict any use of the information to criminally investigate or prosecute any alcohol or drug abuse patient.[facility] HospitalIn the event this information is protected by the Federal Confidentiality of Alcohol and Drug Abuse Patient Records regulations: The Federal rules restrict any use of the information to criminally investigate or prosecute any alcohol or drug abuse patient.[facility] HospitalIn the event this information is protected by the Federal Confidentiality of Alcohol and Drug Abuse Patient Records regulations: The Federal rules restrict any use of the information to criminally investigate or prosecute any alcohol or drug abuse patient.[facility] HospitalIn the event this information is protected by the Federal Confidentiality of Alcohol and Drug Abuse Patient Records regulations: The Federal rules restrict any use of the information to criminally investigate or prosecute any alcohol or drug abuse patient.[facility] HospitalIn the event this information is protected by the Federal Confidentiality of Alcohol and Drug Abuse Patient Records regulations: The Federal rules restrict any use of the information to criminally investigate or prosecute any alcohol or drug abuse patient.[facility] HospitalIn the event this information is protected by the Federal Confidentiality of Alcohol and Drug Abuse Patient Records regulations: The Federal rules restrict any use of the information to criminally investigate or prosecute any alcohol or drug abuse patient.[facility] HospitalIn the event this information is protected by the Federal Confidentiality of Alcohol and Drug Abuse Patient Records regulations: The Federal rules restrict any use of the information to criminally investigate or prosecute any alcohol or drug abuse patient.[facility] HospitalIn the event this information is protected by the Federal Confidentiality of Alcohol and Drug Abuse Patient Records regulations: The Federal rules restrict any use of the information to criminally investigate or prosecute any alcohol or drug abuse patient.[facility] HospitalIn the event this information is protected by the Federal Confidentiality of Alcohol and Drug Abuse Patient Records regulations: The Federal rules restrict any use of the information to criminally investigate or prosecute any alcohol or drug abuse patient.[facility] HospitalIn the event this information is protected by the Federal Confidentiality of Alcohol and Drug Abuse Patient Records regulations: The Federal rules restrict any use of the information to criminally investigate or prosecute any alcohol or drug abuse patient.[facility] HospitalIn the event this information is protected by the Federal Confidentiality of Alcohol and Drug Abuse Patient Records regulations: The Federal rules restrict any use of the information to criminally investigate or prosecute any alcohol or drug abuse patient.[facility] HospitalIn the event this information is protected by the Federal Confidentiality of Alcohol and Drug Abuse Patient Records regulations: The Federal rules restrict any use of the information to criminally investigate or prosecute any alcohol or drug abuse patient.[facility] HospitalIn the event this information is protected by the Federal Confidentiality of Alcohol and Drug Abuse Patient Records regulations: The Federal rules restrict any use of the information to criminally investigate or prosecute any alcohol or drug abuse patient.[facility] HospitalIn the event this information is protected by the Federal Confidentiality of Alcohol and Drug Abuse Patient Records regulations: The Federal rules restrict any use of the information to criminally investigate or prosecute any alcohol or drug abuse patient.[facility] HospitalIn the event this information is protected by the Federal Confidentiality of Alcohol and Drug Abuse Patient Records regulations: The Federal rules restrict any use of the information to criminally investigate or prosecute any alcohol or drug abuse patient.[facility] HospitalIn the event this information is protected by the Federal Confidentiality of Alcohol and Drug Abuse Patient Records regulations: The Federal rules restrict any use of the information to criminally investigate or prosecute any alcohol or drug abuse patient.[facility] HospitalIn the event this information is protected by the Federal Confidentiality of Alcohol and Drug Abuse Patient Records regulations: The Federal rules restrict any use of the information to criminally investigate or prosecute any alcohol or drug abuse patient.[facility] HospitalIn the event this information is protected by the Federal Confidentiality of Alcohol and Drug Abuse Patient Records regulations: The Federal rules restrict any use of the information to criminally investigate or prosecute any alcohol or drug abuse patient.[facility] HospitalIn the event this information is protected by the Federal Confidentiality of Alcohol and Drug Abuse Patient Records regulations: The Federal rules restrict any use of the information to criminally investigate or prosecute any alcohol or drug abuse patient.[facility] HospitalIn the event this information is protected by the Federal Confidentiality of Alcohol and Drug Abuse Patient Records regulations: The Federal rules restrict any use of the information to criminally investigate or prosecute any alcohol or drug abuse patient.[facility] HospitalIn the event this information is protected by the Federal Confidentiality of Alcohol and Drug Abuse Patient Records regulations: The Federal rules restrict any use of the information to criminally investigate or prosecute any alcohol or drug abuse patient.[facility] HospitalIn the event this information is protected by the Federal Confidentiality of Alcohol and Drug Abuse Patient Records regulations: The Federal rules restrict any use of the information to criminally investigate or prosecute any alcohol or drug abuse patient.[facility] HospitalIn the event this information is protected by the Federal Confidentiality of Alcohol and Drug Abuse Patient Records regulations: The Federal rules restrict any use of the information to criminally investigate or prosecute any alcohol or drug abuse patient.[facility] HospitalIn the event this information is protected by the Federal Confidentiality of Alcohol and Drug Abuse Patient Records regulations: The Federal rules restrict any use of the information to criminally investigate or prosecute any alcohol or drug abuse patient.[facility] HospitalIn the event this information is protected by the Federal Confidentiality of Alcohol and Drug Abuse Patient Records regulations: The Federal rules restrict any use of the information to criminally investigate or prosecute any alcohol or drug abuse patient.[facility] HospitalIn the event this information is protected by the Federal Confidentiality of Alcohol and Drug Abuse Patient Records regulations: The Federal rules restrict any use of the information to criminally investigate or prosecute any alcohol or drug abuse patient.[facility] Reason for Visit (unrecogniz ed section and content) Reason Comments Established Patient 4 month follow up Reason Onset Date Comments Refill Request 08/17/2021 Reason Comments Establish Care Reason Comments Radiology CT Specialty Diagnoses / Procedures Referred By Contac t Referred To Contact CT IMAGING Diagnoses Thoracic aortic aneurysm without rupture (HCC) Examination of participant in clinical trial Procedures CTA CHEST (NONGATED) WO/W IVCON CT ANGIOGRAPHY CHEST W/CONTRAST/NONCONTRAST Reynaldo Vaughan MD [address] [place] [address] Ct Imaging Referral ID Status Reason Start Date Expiration Date V isits Requested Visits Authorized [id number] Closed Auto-Generate d Referral 11/01/2021 10/19/2022 1 1 Reason Comments Follow Up refills needed Reason Comments Results Reason Comments Release Of Medical Records Reason Onset Date Comments Refill Request 08/26/2022 Reason Comments Post Dc Program Call - Fyi Reason Comments ED Follow-up Reason Comments Follow Up follow up-neck and b ack pain x 3 weeks Reason Comments Recommendation Reason Onset Date Comments Atrial Fibrillation 11/07/2022 Reason Comments Research F/U IRB [id number]: [id number] I: Dr. Vaughan Specialty Diagnoses / Procedures Referred By Contac t Referred To Contact CT IMAGING Diagnoses Thoracic aortic aneurysm without rupture, unspecified part (HCC) Examination of participant in clinical trial Procedures CTA CHEST (NONGATED) WO/W IVCON CT ANGIOGRAPHY CHEST W/CONTRAST/NONCONTRAST Nasim Fleming MD [address] [place] [address] Ct Imaging [place] [address] Referral ID Status Reason Start Date Expiration Date V isits Requested Visits Authorized [id number] Closed Auto-Generate d Referral 11/07/2022 08/14/2023 1 1 Reason Comments Follow Up back pain- MRI resul ts, patient was in hospital for 4 days septic blood infection wants to make sure its gone Reason Comments Follow Up Spine infection Reason Comments Referral Request Patient Question Reason Comments Received Outside Medical Records CD - Fo rwarded to J1-5 for downloading Reason Comments New Patient Reason Onset Date Comments Refill Request 01/23/2023 Refill Request 01/24/2023 Reason Comments F/U 6 months 6 month follow up- , c/o legs, sore and weak with exertion , also had a yeast infection in esophagus wants to know if it is gone or odes he stil lneed meds Reason Comments Orders Reason Comments Non-Chemotherapy Treatment Specialty Diagnoses / Procedures Referred By Contac t Referred To Contact Diagnoses 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 Victor Manuel Olson, DO [address] [place] [address] [facility] [address] [place] [address] Referral ID Status Reason Start Date Expiration Date V isits Requested Visits Authorized [id number] Authorized 02/05/2023 05/06/2023 99 99 Reason Comments Benefits Investigation Reason Comments Question Reason Comments Established Patient Reason Comments Follow up Reason Onset Date Comments Refill Request 07/29/2023 Specialty Diagnoses / Procedures Referred By Contac t Referred To Contact Diagnoses 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 Stage 3b chronic kidney disease (HCC) Victor Manuel Olson, DO [address] [place] [address] [facility] [address] [place] [address] Referral ID Status Reason Start Date Expiration Date V isits Requested Visits Authorized [id number] Authorized 09/22/2023 12/21/2023 99 99 Specialty Diagnoses / Procedures [facility] Diagnoses Nonrheumatic mitral valve regurgitation S/P ascending aortic aneurysm repair Aneurysm of ascending aorta without rupture (HCC) S/P AVR (aortic valve replacement) 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) Encounter for other preprocedural examination Procedures CTA CHEST (NONGATED) WO/W IVCON CT ANGIOGRAPHY CHEST W/CONTRAST/NONCONTRAST Armida Long APRN.MAINTENANCE OPERATOR [address] [place] [id number] Ct Imaging [id number] Referral ID Status Reason Start Date Expiration Date V isits Requested Visits Authorized [id number] Closed Auto-Generate d Referral 11/07/2022 12/07/2023 1 1 Reason Onset Date Comments Refill Request 10/11/2023 Reason Onset Date Comments Refill Request 12/01/2023 Reason Comments Medicare Wellness Exam Reason Onset Date Comments Refill Request 02/24/2024 Reason Onset Date Comments Refill Request 04/14/2024 Reason Comments Lab Orders Reason Comments 4 month f/u Reason Comments Radiology US Specialty Diagnoses / Procedures Referred By Contac t Referred To Contact US IMAGING Diagnoses Testicular mass Procedures US SCROTUM AND CONTENTS US SCROTUM & CONTENTS Rebecca Dinh MD [address] [place] [address] Phone: tel: fax: [place] [phone] Referral ID Status Reason Start Date Expiration Date V isits Requested Visits Authorized [id number] Closed Auto-Generate d Referral 06/14/2024 07/14/2025 1 1 Reason Onset Date Comments Refill Request 07/19/2024 Reason Comments Consult Specialty Diagnoses / Procedures Referred By Contac t Referred To Contact Urology Diagnoses Testicular mass Procedures CONSULT TO UROLOGY OFFICE/OUTPATIENT [facility] 60 MINUTES Rebecca Dinh MD [address] [place] [address] Phone: tel: fax: Referral ID Status Reason Start Date Expiration Date V isits Requested Visits Authorized [id number] Closed PCP Requested Referral 06/14/2024 06/14/2025 1 1 Reason Onset Date Comments Refill Request 08/02/2024 Reason Comments Medicare Wellness Exam Medicare Wellness Reason Onset Date Comments Refill Request 11/01/2024 Reason Onset Date Comments Population Health Navigation Outreach 11/23/2024 Tessa/Workbench/ACO Care Teams (unrecognized sec tion and content) Prompt Care Rn Relationship Specialty Start Date End Date Rebecca Dinh MD [address] [place], [place] [address] PCP - General Internal Medicine 07/30/16 Victor Manuel Zhou [address] [place] [address] Referring Cardiology 08/09/20 Prompt Care Rn Relationship Specialty Start Date End Date Rebecca Dinh MD [address] [place], [place] [id number] PCP - General Internal Medicine 07/30/16 Victor Manuel Zhou [address] [place] [address] Referring Cardiology 08/09/20 Prompt Care Rn Relationship Specialty Start Date End Date Rebecca Dinh MD [address] [place] [address] PCP - General Internal Medicine 07/30/16 Victor Manuel Zhou [address] [place] [address] Referring Cardiology 08/09/20 Prompt Care Rn Relationship Specialty Start Date End Date Rebecca Dinh MD [address] [place] [address] PCP - General Internal Medicine 07/30/16 Victor Manuel Zhou [address] [place] [address] Referring Cardiology 08/09/20 Prompt Care Rn Relationship Specialty Start Date End Date Rebecca Dinh MD [address] [place] [address] PCP - General Internal Medicine 07/30/16 Victor Manuel Zhou [address] [place] [address] Referring Cardiology 08/09/20 Prompt Care Rn Relationship Specialty Start Date End Date Rebecca Dinh MD [address] [place] [address] PCP - General Internal Medicine 07/30/16 Victor Manuel Zhou [address] [place] [address] Referring Cardiology 08/09/20 Prompt Care Rn Relationship Specialty Start Date End Date Rebecca Dinh MD [address] [facility] [place] [address] PCP - General Internal Medicine 07/30/16 Victor Manuel Zhou [address] [place] [address] Referring Cardiology 08/09/20 Prompt Care Rn Relationship Specialty Start Date End Date Rebecca Dinh MD [address] [place] [address] PCP - General Internal Medicine 07/30/16 Victor Manuel Zhou [address] [place] [address] Referring Cardiology 08/09/20 Prompt Care Rn Relationship Specialty Start Date End Date Rebecca Dinh MD [address] [place] [address] PCP - General Internal Medicine 07/30/16 Victor Manuel Zhou [address] [place] [address] Referring Cardiology 08/09/20 Prompt Care Rn Relationship Specialty Start Date End Date Rebecca Dinh MD [address] [place] [address] PCP - General Internal Medicine 07/30/16 Victor Manuel Zhou [address] [place] [address] Referring Cardiology 08/09/20 Prompt Care Rn Relationship Specialty Start Date End Date Rebecca Dinh MD [address] [place] [address] PCP - General Internal Medicine 07/30/16 Victor Manuel Zhou [address] [place] [address] Referring Cardiology 08/09/20 Prompt Care Rn Relationship Specialty Start Date End Date Rebecca Dinh MD [address] [place] [address] PCP - General Internal Medicine 07/30/16 Victor Manuel Zhou [address] [place] [address] Referring Cardiology 08/09/20 Prompt Care Rn Relationship Specialty Start Date End Date Rebecca Dinh MD [address] [facility] [place] [address] PCP - General Internal Medicine 07/30/16 Victor Manuel Zhou [address] [place] [address] Referring Cardiology 08/09/20 Prompt Care Rn Relationship Specialty Start Date End Date Rebecca Dinh MD [address] [place] [address] PCP - General Internal Medicine 07/30/16 Victor Manuel Zhou [address] [place] [address] Referring Cardiology 08/09/20 Prompt Care Rn Relationship Specialty Start Date End Date Rebecca Dinh MD [address] [place] [address] PCP - General Internal Medicine 07/30/16 Victor Manuel Zhou [address] [place] [address] Referring Cardiology 08/09/20 Prompt Care Rn Relationship Specialty Start Date End Date Rebecca Dinh MD [address] [place] [address] PCP - General Internal Medicine 07/30/16 Victor Manuel Zhou [address] [place] [address] Referring Cardiology 08/09/20 Team Status: Active Member Role Status Dates Dr. Rebecca Dinh MD Family Provider Active Dr. Rebecca Dinh MD Primary Care Provider Active Team Status: Inactive Member Role Status Dates Dr. Rebecca Dinh MD Primary Care Provider, Referring Provider Active Basilio Warren [employer], [employer]-C Attending Provider Active Team Status: Active Member Role Status Dates Dr. Rebecca Dinh MD Primary Care Provider Active Dr. Jethro Pickard MD Attending Provider Active Basilio Warren [employer], [employer]-C Referring Provider Active Team Status: Active Member Role Status Dates Dr. Rebecca Dinh MD Primary Care Provider Active Dr. Dustin Jeffery MD Emergency Provider Active Dr. Emma Medina DO Admit Provider, Attending Provide r, Other Provider Active Team Status: Active Member Role Status Dates Dr. Rebecca Dinh MD Primary Care Provider Active Dr. Quinn Vera MD Attending Provider Active Team Status: Active Member Role Status Dates Dr. Rebecca Dinh MD Primary Care Provider Active Dr. Dustin Jeffery MD Emergency Provider Active Dr. Emma Medina DO Admit Provider, Other Provider Ac tive Dr. Jarek Crystal MD Other Provider Active Dr. Darryl Pimentel DO Attending Provider Active Team Status: Active Member Role Status Dates Dr. Rebecca Dinh MD Primary Care Provider Active Dr. Darryl Pimentel DO Attending Provider Active Team Status: Active Member Role Status Dates Dr. Rebecca Dinh MD Primary Care Provider Active Dr. Dustin Jeffery MD Emergency Provider Active Dr. Emma Medina DO Admit Provider, Other Provider Ac tive Dr. Jarek Crystal MD Attending Provider, Other Provid er Active Team Status: Active Member Role Status Dates Dr. Rebecca Dinh MD Primary Care Provider Active Dr. Dustin Jeffery MD Emergency Provider Active Dr. Emma Medina DO Admit Provider, Other Provider Ac tive Dr. Jarek Crystal MD Other Provider Active Dr. Morteza Montoya MD Other Provider Active Dr. Harshal Mtz DO Other Provider Active Dr. Darryl Pimentel DO Attending Provider Active Team Status: Active Member Role Status Dates Dr. Rebecca Dinh MD Primary Care Provider Active Dr. Ines Valentin MD Attending Provider Activ e Team Status: Inactive Member Role Status Dates Dr. Rebecca Dinh MD Primary Care Provider Active Basilio Warren [employer], [employer]-C Attending Provider, Referring Pro vider Active Team Status: Active Member Role Status Dates Dr. Rebecca Dinh MD Primary Care Provider Active Basilio Warren [employer], [employer]-C Attending Provider, Referring Pro vider Active Team Status: Inactive Member Role Status Dates Dr. Rebecca Dinh MD Primary Care Provider Active Dr. Alicia Jade MD Attending Provider, Emergency Provider Active Team Status: Inactive Member Role Status Dates Dr. Rebecca Dinh MD Primary Care Provider Active Dr. Dustin Jeffery MD Emergency Provider Active Dr. Emma Medina DO Admit Provider, Other Provider Ac tive Dr. Jarek Crystal MD Other Provider Active Dr. Morteza Montoya MD Other Provider Active Dr. Harshal Mtz DO Attending Provider Active Prompt Care Rn Relationship Specialty Start Date End Date Rebecca Dinh MD [address] [place], [place] [address]371 PCP - General Internal Medicine 07/30/16 Victor Manuel Zhou [address] [phone] Referring Cardiology 08/09/20 Prompt Care Rn Relationship Specialty Start Date End Date Rebecca Dinh MD [address] [place], [place] [address]131 PCP - General Internal Medicine 07/30/16 Victor Manuel Zhou [address] [phone] Referring Cardiology 08/09/20 Garth Galaviz MD [address] [place], [place] [phone] Primary Staff Physician Cardiology 11/07/22 Prompt Care Rn Relationship Specialty Start Date End Date Rebecca Dinh MD [address] [place] [address] PCP - General Internal Medicine 07/30/16 Victor Manuel Zhou [address] [phone] Referring Cardiology 08/09/20 Garth Galaviz MD [address] [place] [address] Primary Staff Physician Cardiology 11/07/22 Prompt Care Rn Relationship Specialty Start Date End Date Rebecca Dinh MD [facility] [place] [address] PCP - General Internal Medicine 07/30/16 Victor Manuel Zhou [address] [phone] Referring Cardiology 08/09/20 Garth Galaviz MD [address] [place] [address] Primary Staff Physician Cardiology 11/07/22 Prompt Care Rn Relationship Specialty Start Date End Date Rebecca Dinh MD [address] [place] [address] PCP - General Internal Medicine 07/30/16 Victor Manuel Zhou [address] [phone] Referring Cardiology 08/09/20 [place] [address] [place] [address] Primary Staff Physician Cardiology 11/07/22 Team Status: Active Member Role Status Dates Dr. Rebecca Dinh MD Primary Care Provider Active Dr. Dustin Jeffery MD Emergency Provider Active Dr. Emma Medina , DO Admit Provider, Other Provider Ac tive Dr. Jarek Crystal MD Attending Provider Active Team Status: Active Member Role Status Dates Dr. Rebecca Dinh MD Primary Care Provider Active Dr. Dustin Jeffery MD Emergency Provider Active Dr. Emma Medina , DO Admit Provider, Other Provider Ac tive Dr. Jarek Crystal MD Other Provider Active Dr. Morteza Montoya MD Other Provider Active Dr. Harshal Mtz , Attending Provider, Other Pro vider Active Team Status: Active Member Role Status Dates Dr. Rebecca Dinh MD Primary Care Provider, Referring Provider Active Dr. Darryl Pimentel DO Attending Provider, Other Prov ider Active Team Status: Inactive Member Role Status Dates Dr. Rebecca Dinh MD Primary Care Provider, Referring Provider Active Dr. Darryl Pimentel DO Attending Provider Active Prompt Care Rn Relationship Specialty Start Date End Date eRbecca Dinh MD [address] [place] [address] PCP - General Internal Medicine 07/30/16 Victor Manuel Zhou [address] [phone] Referring Cardiology 08/09/20 Garth Galaviz MD [address] [place] [address] Primary Staff Physician Cardiology 11/07/22 Team Status: Inactive Member Role Status Dates Dr. Rebecca Dinh MD Primary Care Provider Active Dr. Bay Marquez MD Emergency Provider Active Prompt Care Rn Relationship Specialty Start Date End Date Rebecca Dinh MD [address] [place] [address] PCP - General Internal Medicine 07/30/16 Victor Manuel Zhou [address] [phone] Referring Cardiology 08/09/20 Garth Galaviz MD [address] [place] [address] Primary Staff Physician Cardiology 11/07/22 Team Status: Active Member Role Status Dates Dr. Rebecca Dinh MD Primary Care Provider Active Dr. Dustin Jeffery MD Emergency Provider Active Dr. Emma Medina , DO Admit Provider, Other Provider Ac tive Dr. Jarek Crystal MD Other Provider Active Dr. Darryl Pimentel , Attending Provider Active Dr. Harshal Mtz , Referring Provider Active Team Status: Active Member Role Status Dates Dr. Rebecca Dinh MD Primary Care Provider Active Dr. Darryl Pimentel , DO Attending Provider Active Dr. Harshal Mtz , DO Referring Provider Active Team Status: Active Member Role Status Dates Dr. Rebecca Dinh MD Primary Care Provider Active Dr. Dustin Jeffery MD Emergency Provider Active Dr. Emma Medina , DO Admit Provider, Other Provider Ac tive Dr. Jarek Crystal MD Other Provider Active Dr. Morteza Montoya MD Other Provider Active Dr. Harshal Mtz , DO Referring Provider, Other Pro vider Active Dr. Darryl Pimentel , DO Attending Provider Active Team Status: Active Member Role Status Dates Dr. Rebecca Dinh MD Primary Care Provider Active Dr. Cal Renee , Emergency Provider Active Dr. Harshal Mtz , DO Admit Provider, Attending Provider, Other Provider Active Dr. Morteza Montoya MD Other Provider Active Dr. Eric Collins , DO Other Provider Active Team Status: Inactive Member Role Status Dates Dr. Rebecca Dinh MD Primary Care Provider Active Dr. Bay Marquez MD Attending Provider, Emergency Provider Active Team Status: Active Member Role Status Dates Dr. Rebecca Dinh MD Primary Care Provider Active Dr. Morteza Montoya MD Attending Provider, Referrin g Provider Active Team Status: Inactive Member Role Status Dates Dr. Rebecca Dinh MD Primary Care Provider Active Dr. Darryl Pimentel , DO Attending Provider, Referring Provider Active Team Status: Active Member Role Status Dates Dr. Rebecca Dinh MD Primary Care Provider Active Dr. Cal Renee DO Emergency Provider Active Dr. Harshal Mtz DO Admit Provider, Other Provide r Active Dr. Morteza Montoya MD Other Provider Active Dr. Eric Collins DO Other Provider Active Dr. Carlitos Koch MD Attending Provider Active Team Status: Active Member Role Status Dates Dr. Rebecca Dinh MD Primary Care Provider Active Dr. Cal Renee DO Emergency Provider Active Dr. Harshal Mtz , DO Admit Provider, Other Provide r Active Dr. Morteza Montoya MD Other Provider Active Dr. Eric Collins DO Other Provider Active Dr. Carlitos Koch MD Attending Provider, Other Provi logan Active Team Status: Inactive Member Role Status Dates Dr. Rebecca Dinh MD Primary Care Provider Active Dr. Cal Renee DO Emergency Provider Active Dr. Harshal Mtz , DO Admit Provider, Other Provide r Active Dr. Morteza Montoya MD Other Provider Active Dr. Eric Collins , Other Provider Active Dr. Carlitos Koch MD Attending Provider Active Team Status: Inactive Member Role Status Dates Dr. Rebecca Dinh MD Primary Care Provider Active Dr. Morteza Montoya MD Attending Provider Active Team Status: Inactive Member Role Status Dates Dr. Rebecca Dinh MD Primary Care Provider Active Dr. Morteza Montoya MD Attending Provider, Referrin g Provider Active Team Status: Active Member Role Status Dates Dr. Rebecca Dinh MD Primary Care Provider Active Dr. Ines Valentin MD Attending Provider Activ e Dr. Morteza Montoya MD Referring Provider Active Team Status: Active Member Role Status Dates Dr. Rebecca Dinh MD Primary Care Provider Active Dr. Ines Valentin MD Attending Provider, Refe rring Provider Active Prompt Care Rn Relationship Specialty Start Date End Date Rebecca Dinh MD [address] [place] [address] PCP - General Internal Medicine 07/30/16 Victor Manuel Zhou [address] [place] [address] Referring Cardiology 08/09/20 Garth Galaviz MD [address] [place], [place] [phone] Primary Staff Physician Cardiology 11/07/22 Prompt Care Rn Relationship Specialty Start Date End Date Rebecca Dinh MD [address] [place] [address] PCP - General Internal Medicine 07/30/16 Victor Manuel Zhou [address] [address] Referring Cardiology 08/09/20 Garth Galaviz MD [address] [place], [place] [phone] Primary Staff Physician Cardiology 11/07/22 Prompt Care Rn Relationship Specialty Start Date End Date Rebecca Dinh MD [address] [place] [address] PCP - General Internal Medicine 07/30/16 Victor Manuel Zhou [address] [address] Referring Cardiology 08/09/20 Garth Galaviz MD [address] [place] [address] Primary Staff Physician Cardiology 11/07/22 Prompt Care Rn Relationship Specialty Start Date End Date Rebecca Dinh MD [address] [place] [address] PCP - General Internal Medicine 07/30/16 Victor Manuel Zhou MD [address] [place] [address] Referring Cardiology 08/09/20 Garth Galaviz MD [address] [place] [id number] Primary Staff Physician Cardiology 11/07/22 Prompt Care Rn Relationship Specialty Start Date End Date Rebecca Dinh MD [address] [place] [address] PCP - General Internal Medicine 07/30/16 Victor Manuel Zhou MD [address] [address] Referring Cardiology 08/09/20 Garth Galaviz MD [address] [place] [address] Primary Staff Physician Cardiology 11/07/22 Prompt Care Rn Relationship Specialty Start Date End Date Rebecca Dinh MD [address] [place] [address] PCP - General Internal Medicine 07/30/16 Victor Manuel Zhou MD [address] [place] [address] Referring Cardiology 08/09/20 Garth Galaviz MD [address] [place], [place] [phone] Primary Staff Physician Cardiology 11/07/22 Prompt Care Rn Relationship Specialty Start Date End Date Rebecca Dinh MD [address] [place] [address] PCP - General Internal Medicine 07/30/16 Victor Manuel Zhou MD [address] [address] Referring Cardiology 08/09/20 Garth Galaviz MD [address] [place] [address] Primary Staff Physician Cardiology 11/07/22 Prompt Care Rn Relationship Specialty Start Date End Date Rebecca Dinh MD [address] [place] [address] PCP - General Internal Medicine 07/30/16 Victor Manuel Zhou MD [address] [address] Referring Cardiology 08/09/20 Garth Galaviz MD [address] [place] [address] Primary Staff Physician Cardiology 11/07/22 Prompt Care Rn Relationship Specialty Start Date End Date Rebecca Dinh MD [address] [place] [address] PCP - General Internal Medicine 07/30/16 Victor Manuel Zhou MD [address] [place] [address] Referring Cardiology 08/09/20 Garth Galaviz MD [address] [place] [address] Primary Staff Physician Cardiology 11/07/22 Prompt Care Rn Relationship Specialty Start Date End Date Rebecca Dinh MD [address] [place] [address] PCP - General Internal Medicine 07/30/16 Victor Manuel Zhou MD [address] [address] Referring Cardiology 08/09/20 Garth Galaviz MD [address] [place] [address] Primary Staff Physician Cardiology 11/07/22 Prompt Care Rn Relationship Specialty Start Date End Date Rebecca Dinh MD [address] [place] [address] PCP - General Internal Medicine 07/30/16 Victor Manuel Zhou MD [address] [address] Referring Cardiology 08/09/20 Garth Galaviz MD [address] [place] [address] Primary Staff Physician Cardiology 11/07/22 Prompt Care Rn Relationship Specialty Start Date End Date Rebecca Dinh MD [address] [place] [address] PCP - General Internal Medicine 07/30/16 Victor Manuel Zhou MD [address] [place] [address] Referring Cardiology 08/09/20 Garth Galaviz MD [address] [place], [place] [phone] Primary Staff Physician Cardiology 11/07/22 Prompt Care Rn Relationship Specialty Start Date End Date Rebecca Dinh MD [address] [place] [address] PCP - General Internal Medicine 07/30/16 Victor Manuel Zhou MD [address] [address] Referring Cardiology 08/09/20 Garth Galaviz MD [address] [place] [address] Primary Staff Physician Cardiology 11/07/22 Prompt Care Rn Relationship Specialty Start Date End Date Rebecca Dinh MD [address] [place] [address] PCP - General Internal Medicine 07/30/16 Victor Manuel Zhou MD [address] [address] Referring Cardiology 08/09/20 Garth Galaviz MD [address] [place] [address] Primary Staff Physician Cardiology 11/07/22 Prompt Care Rn Relationship Specialty Start Date End Date Rebecca Dinh MD [address] [place] [address] PCP - General Internal Medicine 07/30/16 Victor Manuel Zhou MD [address] [place] [address] Referring Cardiology 08/09/20 Garth Galaviz MD [address] [place], [place] [phone] Primary Staff Physician Cardiology 11/07/22 Prompt Care Rn Relationship Specialty Start Date End Date Rebecca Dinh MD [address] [place] [address] PCP - General Internal Medicine 07/30/16 Victor Manuel Zhou MD [address] [place] [address] Referring Cardiology 08/09/20 Garth Galaviz MD [address] [place] [address] Primary Staff Physician Cardiology 11/07/22 Prompt Care Rn Relationship Specialty Start Date End Date Rebecca Dinh MD [address] [place] [address] PCP - General Internal Medicine 07/30/16 Victor Manuel Zhou MD [address] [place] [address] Referring Cardiology 08/09/20 Garth Galaviz MD [address] [id number] Primary Staff Physician Cardiology 11/07/22 Prompt Care Rn Relationship Specialty Start Date End Date Rebecca Dinh MD [address] [place] [address] PCP - General Internal Medicine 07/30/16 Victor Manuel Zhou MD [address] [address] Referring Cardiology 08/09/20 Garth Galaviz MD [address] [place] [address] Primary Staff Physician Cardiology 11/07/22 Prompt Care Rn Relationship Specialty Start Date End Date Rebecca Dinh MD [facility] [place] [address] PCP - General Internal Medicine 07/30/16 Victor Manuel Zhou MD [address] [address] Referring Cardiology 08/09/20 Garth Galaviz MD [address] [id number] Primary Staff Physician Cardiology 11/07/22 Prompt Care Rn Relationship Specialty Start Date End Date Rebecca Dinh MD [address] [place] [address] PCP - General Internal Medicine 07/30/16 Victor Manuel Zhou MD [address] [address] Referring Cardiology 08/09/20 Garth Galaviz MD [address] [place] [address] Primary Staff Physician Cardiology 11/07/22 Prompt Care Rn Relationship Specialty Start Date End Date Rebecca Dinh MD [address] [place] [address] PCP - General Internal Medicine 07/30/16 Victor Manuel Zhou MD [address] [id number] Referring Cardiology 08/09/20 Garth Galaviz MD [address] [place] [address] Primary Staff Physician Cardiology 11/07/22 Silva Palacios PA-C [address] [place] [address] [facility] 02/15/24 Nicolle Worley APRN.CNP [address] [place] [address] [facility] Inspector Internal Medicine 02/15/24 Angeles Nicolas PA-C [address] [place] [address] [facility] 02/15/24 Prompt Care Rn Relationship Specialty Start Date End Date Rebecca Dinh MD [address] [place] [address] PCP - General Internal Medicine 07/30/16 Victor Manuel Zhou MD [address] [address] Referring Cardiology 08/09/20 [place] [address] [place] [address] Primary Staff Physician Cardiology 11/07/22 Silva Palacios PA-C [address] [place], [place] [id number] [facility] Family [facility] 02/15/24 Nicolle Worley APRN.LSAT INSTRUCTOR [address] [place] [address] [facility] Internal Medicine 02/15/24 Angeles Nicolas PA-C [facility] [place] [address] On License Of [facility] 02/15/24 Prompt Care Rn Relationship Specialty Start Date End Date Rebecca Dinh MD [address] [place] [address] PCP - General Internal Medicine 07/30/16 Victor Manuel Zhou MD [address] [address] Referring Cardiology 08/09/20 Garth Galaviz MD [address] [place] [address] Primary Staff Physician Cardiology 11/07/22 Silva Palacios PA-C [address] [place] [address] [facility] 02/15/24 Nicolle Worley APRN.LSAT INSTRUCTOR [address] [place] [address] Crystal Inspector Internal Medicine 02/15/24 Angeles Nicolas PA-C [address] [place] [address] Crystal Inspector Family [facility] 02/15/24 Prompt Care Rn Relationship Specialty Start Date End Date Rebecca Dinh MD [address] [place] [address] PCP - General Internal Medicine 07/30/16 [place] [address] [place] [address] [phone] Referring Cardiology 08/09/20 Garth Galaviz MD [address] [place] [address] Primary Staff Physician Cardiology 11/07/22 Silva Palacios PA-C [address] [place] [id number] [facility] Medicine 02/15/24 Nicolle Worley APRN.LSAT INSTRUCTOR [address] [place] [address] [facility] Internal Medicine 02/15/24 Angeles Nicolas PA-C [address] [place] [address] [facility] Family [facility] 02/15/24 Prompt Care Rn Relationship Specialty Start Date End Date Rebecca Dinh MD [address] [place] [address] PCP - General Internal Medicine 07/30/16 Victor Manuel Zhou MD [address] [address] Referring Cardiology 08/09/20 Garth Galaviz MD [address] [place] [address] Primary Staff Physician Cardiology 11/07/22 Nicolle Worley APRN.LSAT INSTRUCTOR [address] [place] [address] [facility] 02/15/24 Prompt Care Rn Relationship Specialty Start Date End Date Rebecca Dinh MD [address] [place] [address] PCP - General Internal Medicine 07/30/16 Victor Manuel Zhou MD [address] [address] Referring Cardiology 08/09/20 Garth Galaviz MD [address] [place] [address] Primary Staff Physician Cardiology 11/07/22 Nicolle Worley APRN.LSAT INSTRUCTOR [address] [place] [address] [facility] Internal Medicine 02/15/24 Prompt Care Rn Relationship Specialty Start Date End Date Rebecca Dinh MD [address] [place], [place] [phone] PCP - General Internal Medicine 07/30/16 Victor Manuel Zhou MD [address] [place] [address] Referring Cardiology 08/09/20 Garth Galaviz MD [address] [place], [place] [phone] Primary Staff Physician Cardiology 11/07/22 Nicolle Worley APRN.LSAT INSTRUCTOR [address] [place] [address] [facility] Inspector Internal Medicine 02/15/24 Prompt Care Rn Relationship Specialty Start Date End Date Rebecca Dinh MD [address] [place] [address] PCP - General Internal Medicine 07/30/16 Victor Manuel Zhou MD [address] [address] Referring Cardiology 08/09/20 Garth Galaviz MD [address] [place] [address] Primary Staff Physician Cardiology 11/07/22 Nicolle Worley APRN.LSAT INSTRUCTOR [address] [place] [address] [facility] 02/15/24 Prompt Care Rn Relationship Specialty Start Date End Date Rebecca Dinh MD [address] [place] [address] PCP - General Internal Medicine 07/30/16 Victor Manuel Zhou MD [address] [address] Referring Cardiology 08/09/20 Garth Galaviz MD [address] [place] [address] Primary Staff Physician Cardiology 11/07/22 Nicolle Worley APRN.LSAT INSTRUCTOR [address] [place] [address] [facility] 02/15/24 Prompt Care Rn Relationship Specialty Start Date End Date Rebecca Dinh MD [address] [place] [address] PCP - General Internal Medicine 07/30/16 Victor Manuel Zhou MD [address] [address] Referring Cardiology 08/09/20 Garth Galaviz MD [address] [place] [address] Primary Staff Physician Cardiology 11/07/22 Nicolle Worley, SOCIAL WORK LECTURER.LSAT INSTRUCTOR [address] [place] [address] [facility] Internal Medicine 02/15/24 Prompt Care Rn Relationship Specialty Start Date End Date Rebecca Dinh MD [address] [place] [address] PCP - General Internal Medicine 07/30/16 Victor Manuel Zhou MD [address] [place] [address] Referring Cardiology 08/09/20 Garth Galaviz MD [address] [place] [address] Primary Staff Physician Cardiology 11/07/22 Nicolle Worley APRN.LSAT INSTRUCTOR [address] [place] [address] [facility] Internal Medicine 02/15/24 Prompt Care Rn Relationship Specialty Start Date End Date Rebecca Dinh MD [address] [place] [address] PCP - General Internal Medicine 07/30/16 Victor Manuel Zhou MD [address] [address] Referring Cardiology 08/09/20 Garth Galaviz MD [address] [place] [address] Primary Staff Physician Cardiology 11/07/22 Nicolle Worley APRN.LSAT INSTRUCTOR [address] [place] [address] [facility] Internal Medicine 02/15/24 Prompt Care Rn Relationship Specialty Start Date End Date Rebecca Dinh MD [address] [place] [address] PCP - General Internal Medicine 07/30/16 Victor Manuel Zhou MD [address] [address] Referring Cardiology 08/09/20 Garth Galaviz MD [address] [place] [address] Primary Staff Physician Cardiology 11/07/22 Older, CONRAD Valverde.LSAT INSTRUCTOR [address] [place] [address] Crystal Inspector Internal Medicine 02/15/24 Team Status: Active Member Role/Relationship Status Dates Dr. Rebecca Dinh MD Primary Care Provider Active Team Status: Inactive Member Role/Relationship Status Dates Dr. Rebecca Dinh MD Primary Care Provider Active Start: June 24, 2024 End: June 24, 2024 Dr. Dustin Jeffery MD Attending Provider Active Sta rt: June 24, 2024 End: June 24, 2024 Dr. Dustin Jeffery MD Emergency Provider Active Sta rt: June 24, 2024 End: June 24, 2024 Team Status: Inactive Member Role/Relationship Status Dates Dr. Rebecca Dinh MD Primary Care Provider Active Start: July 02, 2024 End: July 02, 2024 Elvia Agnel PA, PA Attending Provider Active Start: July 02, 2024 End: July 02, 2024 Elvia Angel PA, PA Referring Provider Active Start: July 02, 2024 End: July 02, 2024 Team Status: Inactive Member Role/Relationship Status Dates Dr. Rebecca Dinh MD Primary Care Provider Active Start: July 08, 2024 End: July 08, 2024 Elvia Angel PA, PA Attending Provider Active Start: July 08, 2024 End: July 08, 2024 Elvia Angel PA, PA Referring Provider Active Start: July 08, 2024 End: July 08, 2024 Team Status: Active Member Role/Relationship Status Dates Dr. Rebecca Dinh MD Primary Care Provider Active Start: July 08, 2024 Dr. Jeffrey Patterson DO Attending Provider Active S tart: July 08, 2024 Elvia Angel PA, PA Referring Provider Active Start: July 08, 2024 Team Status: Inactive Member Role/Relationship Status Dates Dr. Rebecca Dinh MD Primary Care Provider Active Start: July 09, 2024 End: July 09, 2024 Dr. Rebecca Dinh MD Referring Provider Active Start: July 09, 2024 End: July 09, 2024 Dr. Darryl Pimentel DO Attending Provider Active Start: July 09, 2024 End: July 09, 2024 Team Status: Inactive Member Role/Relationship Status Dates Dr. Rebecca Dinh MD Primary Care Provider Active Start: September 06, 2024 End: September 06, 2024 Dr. Rebecca Dinh MD Referring Provider Active Start: September 06, 2024 End: September 06, 2024 Basilio Warren F[employer]ER [employer] MAN, [employer]ER [employer] MAN-C Attending Provider Active S tart: September 06, 2024 End: September 06, 2024 Team Status: Inactive Member Role/Relationship Status Dates Dr. Rebecca Dinh MD Primary Care Provider Active Start: September 06, 2024 End: September 06, 2024 Basilio Warren [employer], [employer]-C Attending Provider Active S tart: September 06, 2024 End: September 06, 2024 Basilio Warren F[employer], [employer]-C Referring Provider Active S tart: September 06, 2024 End: September 06, 2024 Prompt Care Rn Relationship Specialty Start Date End Date Rebecca Dinh MD [address] [place] [address] PCP - General Internal Medicine 07/30/16 Victor Manuel Zhou MD [address] [address] Referring Cardiology 08/09/20 Garth Galaviz MD [address] [place] [address] Primary Staff Physician Cardiology 11/07/22 Nicolle Worley APRN.LSAT INSTRUCTOR [address] [place] [address] Crystal Inspector Internal Medicine 02/15/24 Team Status: Active Member Role/Relationship Status Dates Dr. Rebecca Dinh MD Primary Care Provider Active Start: September 23, 2024 Dr. Jethro Pickard MD Attending Provider Active S tart: September 23, 2024 Team Status: Inactive Member Role/Relationship Status Dates Dr. Rebecca Dinh MD Primary Care Provider Active Start: September 23, 2024 End: September 23, 2024 Basilio Warren F[employer], [employer] MAN-C Attending Provider Active S tart: September 23, 2024 End: September 23, 2024 Basilio Warren [employer], F[employer] MAN-C Referring Provider Active S tart: September 23, 2024 End: September 23, 2024 Team Status: Inactive Member Role/Relationship Status Dates Dr. Rebecca Dinh MD Primary Care Provider Active Start: July 08, 2024 End: July 08, 2024 Elvia Angel PA, PA Attending Provider Active Start: July 08, 2024 End: July 08, 2024 Elvia Angel PA, PA Referring Provider Active Start: July 08, 2024 End: July 08, 2024 Team Status: Active Member Role/Relationship Status Dates Dr. Rebecca Dinh MD Primary Care Provider Active Start: July 08, 2024 Dr. Jeffrey Patterson DO Attending Provider Active S tart: July 08, 2024 Elvia Angel PA, PA Referring Provider Active Start: July 08, 2024 Team Status: Inactive Member Role/Relationship Status Dates Dr. Rebecca Dinh MD Primary Care Provider Active Start: July 09, 2024 End: July 09, 2024 Dr. Rebecca Dinh MD Referring Provider Active Start: July 09, 2024 End: July 09, 2024 Dr. Darryl Pimentel DO Attending Provider Active Start: July 09, 2024 End: July 09, 2024 Team Status: Inactive Member Role/Relationship Status Dates Dr. Rebecca Dinh MD Primary Care Provider Active Start: September 06, 2024 End: September 06, 2024 Dr. Rebecca Dinh MD Referring Provider Active Start: September 06, 2024 End: September 06, 2024 Basilio Warren F[employer], [employer] MAN-C Attending Provider Active S tart: September 06, 2024 End: September 06, 2024 Team Status: Inactive Member Role/Relationship Status Dates Dr. Rebecca Dinh MD Primary Care Provider Active Start: September 06, 2024 End: September 06, 2024 Basilio Warren [employer], [employer]-C Attending Provider Active S tart: September 06, 2024 End: September 06, 2024 Basilio Warren NP, [employer]-C Referring Provider Active S tart: September 06, 2024 End: September 06, 2024 Team Status: Active Member Role/Relationship Status Dates Dr. Rebecca Dinh MD Primary Care Provider Active Start: September 23, 2024 Dr. Jethro Pickard MD Attending Provider Active S tart: September 23, 2024 Team Status: Inactive Member Role/Relationship Status Dates Dr. Rebecca Dinh MD Primary Care Provider Active Start: September 23, 2024 End: September 23, 2024 Basilio Warren F[employer], [employer]-C Attending Provider Active S tart: September 23, 2024 End: September 23, 2024 Basilio Warren F[employer], F[employer]-C Referring Provider Active S tart: September 23, 2024 End: September 23, 2024 Team Status: Inactive Member Role/Relationship Status Dates Dr. Rebecca Dinh MD Primary Care Provider Active Start: November 04, 2024 End: November 04, 2024 Dr. Rebecca Dinh MD Referring Provider Active Start: November 04, 2024 End: November 04, 2024 Basilio Warren [employer], [employer]-C Attending Provider Active S tart: November 04, 2024 End: November 04, 2024 Goals (unrecognized section and content) Goals may be documented in a n alternate sectionGoals may be documented in an alternate sectionGoals may be documented in an alternate sectionGoals may be documented in an alternate sectionGoals may be documented in an alternate sectionGoals may be documented in an alternate sectionGoals may be documented in an alternate section FOR RECORDS PERTAINING TO PATIENTS WHO ARE OR HAVE BEEN ENROLLED IN A CHEMICAL DEPENDENCY/SUBSTANCEABUSE PROGRAM, SOME INFORMATION MAY BE OMITTED. This clinical summary was aggregated from multiple sources. Caution should be exercised in using it in the provision of clinical care. This summary normalizes information from multiple sources, and as a consequence, information in this document may materially change the coding, format and clinical context of patient data. In addition, data may be omitted in some cases. CLINICAL DECISIONS SHOULD BE BASED ON THE PRIMARY CLINICAL RECORDS. [employer] [facility]. provides no warranty or guarantee of the accuracy or completeness of information in this document.
== END | disposition home or self-care (01) ==
LOC: PSN 06:50
PROVIDERS: PCP Internal Medicine; Referring Provider Physician Assistant Medical; Visit Provider Physician Assistant Medical
DX: R06.09 Other forms of dyspnea (principal); Z79.899 Other long term (current) drug therapy
CPT/HCPCS: 94060; 94726; 94729